=== PATIENT | female | born 1940 | race Caucasian/White ===

== ENCOUNTER → 2017-11-27 08:47 | Outpatient (CLI) | payer MEDICARE, BC, SELFPAY ==
--- NOTE | 2017-11-27 08:50 | HPBI_ITS ---
MAMMOGRAPHY - BILATERAL SCREENING REASON FOR EXAM: Female, 77 years old. Routine annual screening examination. PERTINENT HISTORY: Mother with breast cancer. TECHNIQUE: Digital bilateral breast sandra (3D mammographic acquisition) in the CC and MLO projections. 2-D mediolateral oblique (MLO) and craniocaudad (CC) views of both breasts were obtained. CAD: Full Field Digital Mammography with Computer Added Detection was performed. COMPARISON: Comparison is made with prior study dated November 18, 2016 and November 06, 2015. FINDINGS: Breast Composition: The breasts are heterogeneously dense, which may obscure small masses. There are no dominant masses or suspicious calcifications. No other significant abnormalities are identified. There has been no significant change since the prior study. HPBI/SCREENING MAMM (CAD), BILAT IMPRESSION: Stable bilateral screening mammogram. Yearly follow-up mammogram recommended. (A) ASSESSMENT CATEGORY: BIRADS Category 1: Negative. A letter regarding these results will be sent to the patient by the facility within 30 days. Approximately 10% of breast cancers are not detected by mammography. A normal mammogram should not delay biopsy of a clinically suspicious abnormality. [id number] Electronically Signed: Jorge Perez MD at 10:23 EST Tel [phone], Service support ,
== END ==
PROVIDERS: Family Provider Family Medicine; PCP Family Medicine; Visit Provider Family Medicine
DX: Z12.31 Encounter for screening mammogram for malignant neoplasm of breast (principal)
CPT/HCPCS: 77063; 77067

== ENCOUNTER → 2017-12-01 13:57 | Outpatient (CLI) | payer MEDICARE, BC, SELFPAY ==
[2017-12-01 15:41] LABS: Anion Gap 8 (5-15); BUN 15 mg/dL (7-18); BUN/Creat Ratio 18.7 RATIO (10-20); Calcium,Total 9.1 mg/dL (8.5-10.1); Chloride 104 mmol/L (98-107); EST Glomerular Filtration Rate 74 mL/min (>60); Est Glom Filt Rate - Afr Amer 89 mL/min (>60); Glucose 99 mg/dL (74-106); Potassium 3.4 mmol/L (3.5-5.1); Sodium Level 138 mmol/L (136-145)
== END ==
PROVIDERS: Family Provider Family Medicine; PCP Family Medicine
DX: C54.1 Malignant neoplasm of endometrium (principal); R91.8 Other nonspecific abnormal finding of lung field
CPT/HCPCS: 36415; 80048

== ENCOUNTER → 2017-12-04 17:31 | Outpatient (CLI) | payer MEDICARE, BC, SELFPAY ==
--- NOTE | 2017-12-04 17:37 | CT_ITS ---
STUDY: CT CHEST WITH CONTRAST REASON FOR EXAM: Female, 77 years old. Lung nodule, history of endometrial carcinoma. RADIATION DOSAGE (If Supplied By Facility): CTDIvol = ( 8.18 ) mGy, DLP = ( 249.49 ) mGycm TECHNIQUE: Transaxial imaging was performed following intravenous administration of 100 ml of Isovue 300 contrast material. Multiplanar coronal and sagittal images were reformatted. Individualized dose optimization techniques were used for this CT. COMPARISON: None. FINDINGS: Lung windows again show nonspecific pleural thickening in the apices. There is a described opacifications in the right middle lobe are unchanged, the opacifications in the superior aspect of the left lower lobe have resolved. There is no suspicious noncalcified mass or nodule, there is a calcified granuloma in the right lung base. Soft tissue windows show normal-appearing thyroid gland. There are scattered subcentimeter axillary and mediastinal lymph nodes. No pleural or pericardial effusions. Bony structures show degenerative change. Limited cuts the upper abdomen do not show a suspicious abnormality CT/Chest WITH Contrast IMPRESSION: Stable opacification and scarring in the right middle lobe without significant change since the previous study. I suspect these opacifications represent chronic inflammatory changes. No suspicious noncalcified mass or nodule, there is a small calcified granuloma in the right lung base. No pleural or pericardial effusions Degenerative bony changes Electronically Signed: Ben Michele MD at 11:16 EST , Service support ,
== END ==
PROVIDERS: Family Provider Family Medicine; PCP Family Medicine; Visit Provider Obstetrics & Gynecology Gynecologic Oncology
DX: C54.1 Malignant neoplasm of endometrium (principal); R91.8 Other nonspecific abnormal finding of lung field
CPT/HCPCS: 71260; Q9967

== ENCOUNTER → 2018-11-30 12:10 | Outpatient (CLI) | payer MEDICARE, BC, SELFPAY ==
--- NOTE | 2018-11-30 12:16 | BI_ITS ---
MAMMOGRAPHY - BILATERAL SCREENING REASON FOR EXAM: Female, 78 years old. Routine annual screening examination. PERTINENT HISTORY: Mother with breast cancer. History of uterine carcinoma. TECHNIQUE: Digital bilateral breast sandra (3D mammographic acquisition) in the CC and MLO projections. 2-D mediolateral oblique (MLO) and craniocaudad (CC) views of both breasts were obtained. CAD: Full Field Digital Mammography with Computer Added Detection was performed. COMPARISON: Comparison is made with prior study dated November 27, 2017 and November 18, 2016. FINDINGS: Breast Composition: The breasts are heterogeneously dense, which may obscure small masses. There are no dominant masses or suspicious calcifications. No other significant abnormalities are identified. There has been no significant change since the prior study. BI/SCREENING MAMM (CAD), BILAT IMPRESSION: Stable bilateral screening mammogram. Yearly follow-up mammogram recommended. (A) ASSESSMENT CATEGORY: BIRADS Category 1: Negative. A letter regarding these results will be sent to the patient by the facility within 30 days. Approximately 10% of breast cancers are not detected by mammography. A normal mammogram should not delay biopsy of a clinically suspicious abnormality. [id number] Electronically Signed: Jorge Perez MD at 13:18 EST , Service support ,
== END ==
PROVIDERS: Family Provider Family Medicine; PCP Family Medicine; Visit Provider Family Medicine
DX: Z12.31 Encounter for screening mammogram for malignant neoplasm of breast (principal)
CPT/HCPCS: 77063; 77067

== ENCOUNTER → 2019-03-11 | Outpatient (CLI) | payer MEDICARE, BC, SELFPAY ==
--- NOTE | 2019-03-11 14:11 | CT_ITS ---
HISTORY: UTERINE CANCER. LUNG NODULE F/U TECHNIQUE: Helically acquired images were obtained of the chest. A radiation dose optimization technique was used for this scan. IV Contrast dosage and agent: None. COMPARISON: Most recent comparison chest CT is December 04, 2017. Study before that is from August 26, 2017. Study before that is Feb 11 2017 FINDINGS: # of images incl. paperwork: [id number] LUNGS AND LARGE AIRWAYS: Sitting on the minor fissure, pleural-parenchymal lung disease within the region of interest remains. The appearance of the lung disease is similar to that of the previous studies. Bronchiectasis extending away from this region is minimal and is similar. There has not been an increase in size of the tissue or nodularity. The largest nodular area on the axial images, series 4 image 48, lung windows, measures 10 x 7 mm on the axial image, however, on the coronal image proves to be somewhat disc-like, and only measures 4 mm in craniocaudal dimensions. This is similar to the previous 2 studies. Within the right lower lobe, posterior laterally, just above the costophrenic sulcus, there is a 4 mm pleural parenchymal pulmonary nodule. This was also present previously and is similar in size to the most recent study. Pleural-parenchymal disease is also present at both lung apices. This is also similar in severity to the previous studies. Additional airspace disease is present anteriorly inferiorly within the right middle lobe. This is similar in appearance to the most recent study, however, more severe than the 2016 study. PLEURA: No pleural effusions. BONES: Kyphoscoliosis. Multilevel degenerative disc disease. No lytic or blastic metastatic lesions perceived. HEART AND PERICARDIUM: The heart is not enlarged. There is a central calcification, near the top of the mitral valve. This is been present previously. VESSELS: Thoracic aorta is not dilated. MEDIASTINUM AND RYAN: A prominent subcarinal lymph node persists. This is similar in size and appearance to the 2 most recent studies. SOFT TISSUES: The thyroid gland remains normal. Dense glandular breast tissue suggesting possible hormonal stimulation persists UPPER ABDOMEN: Unremarkable. CT/Chest without Contrast IMPRESSION: Pleural-parenchymal lung disease persists. The most severe disease is on the minor fissure and extends along the minor fissure from the peripheral parietal pleura and centrally to the hilum. Additional disease is present within the right middle lobe anteriorly. Additional pleural disease with a nodule is present within the right lower lobe. I do not perceive a significant difference in the disease since the most recent study of December 04, 2017. The disease within the right minor fissure is similar to the older study of February 11, 2017,. However, the disease anteriorly within the right middle lobe is more severe than 2017, but stable from November 2017. The right lower lobe pulmonary pleural-parenchymal nodule is the same. Stability of disease suggests that is chronic inflammatory disease Individualized dose optimization techniques were used for this CT. at 2236 Reported and signed by: Justice Rogers MD Electronically Signed: Justice Rogers MD at 22:35 EDT Tel , Service support ,
== END | disposition home or self-care (01) ==
LOC: CT 14:09
PROVIDERS: Family Provider Family Medicine; PCP Family Medicine; Referring Provider Internal Medicine Medical Oncology; Visit Provider Internal Medicine Medical Oncology
DX: R91.1 Solitary pulmonary nodule (principal); C55 Malignant neoplasm of uterus, part unspecified
CPT/HCPCS: 71250

== ENCOUNTER → 2020-02-28 14:16 | Outpatient (CLI) | payer MEDICARE, BC, SELFPAY ==
[2019-03-16 13:35] VITALS: BMI 21.6
--- NOTE | 2020-02-28 14:19 | BI_ITS ---
MAMMOGRAPHY - BILATERAL SCREENING REASON FOR EXAM: Female, 79 years old. Routine annual screening examination. PERTINENT HISTORY: Mother with breast cancer. History of uterine carcinoma. TECHNIQUE: Digital bilateral breast charlene (3D mammographic acquisition) in the CC and MLO projections. 2-D mediolateral oblique (MLO) and craniocaudad (CC) views of both breasts were obtained. CAD: Full Field Digital Mammography with Computer Added Detection was performed. COMPARISON: Comparison is made with prior examination dated November 30, 2018 and November 27, 2017. FINDINGS: Breast Composition: The breasts are heterogeneously dense, which may obscure small masses. There are no dominant masses or suspicious calcifications. No other significant abnormalities are identified. There has been no significant change since the prior study. BI/SCREEN MAMM (CAD) W/CHARLENE BILAT IMPRESSION: Stable bilateral screening mammogram. Yearly follow-up mammogram recommended. (A) ASSESSMENT CATEGORY: BIRADS Category 1: Negative. A letter regarding these results will be sent to the patient by the facility within 30 days. Approximately 10% of breast cancers are not detected by mammography. A normal mammogram should not delay biopsy of a clinically suspicious abnormality. [id number] Electronically Signed: Jorge Perez, at 9:22 EDT , Service support ,
--- NOTE | 2020-02-28 14:24 | BD_ITS ---
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 COMPARISON: Comparison is made with prior examination dated May 01, 2009. FINDINGS: Lumbar Spine (L1-L4): g/cm2 (1.021) / T-score (-1.3) / Z-score (0.5) Findings are suggestive of osteopenia with a low fracture risk. Left Femur Total: g/cm2 (0.703) / T-score (-2.4) / Z-score (-0.5) Left Femoral Neck: g/cm2 (0.731) / T-score (-2.2) / Z-score (-0.1) Right Femur Total: g/cm2 (0.740) / T-score (-2.1) / Z-score (-0.2) Right Femoral Neck: g/cm2 (0.707) / T-score (-2.4) / Z-score (-0.3) The T-Scores on the most recent prior examination were: Lumbar Spine (L1-L4): There has been worsening of bone density since the previous examination. Left Femur Total: which represents a worsening of 8.7%. Right Femur Total: which represents a worsening of 9.4%. BD/Dexa Bone Density Study IMPRESSION: The patient is considered osteopenic as outlined below according to World Bruce Organization (WHO) criteria with a high fracture risk. There has been worsening of bone density since the previous examination. Reference Information: The T-score is the number of standard deviations above or below the standard which is normal for young adults at their peak bone mineral density. The World Health Organization (WHO) interprets the T-scores as follows: Above -1 Normal bone density Between -1 and -2.5 Osteopenia Equal to / or below -2.5 Osteoporosis As a practical clinical guideline, osteopenia may be graded as follows: Mild -1 through -1.5 Moderate -1.6 through -2.0 Severe -2.1 through -2.4 The Z-score is the number of standard deviations above or below age-matched controls. A Z-score of less than -1.5 would be considered abnormal. References: 1. NIH Osteoporosis and Related Bone Diseases http://www.osteo.org 2. International Society for Clinical Densitometry http://www.iscd.org 3. National Osteoporosis Foundation http://www.nof.org Electronically Signed: Jorge Perez, at 9:10 EDT , Service support ,
== END ==
PROVIDERS: Family Provider Family Medicine; PCP Family Medicine; Referring Provider Family Medicine; Visit Provider Family Medicine
DX: Z12.31 Encounter for screening mammogram for malignant neoplasm of breast (principal); N95.9 Unspecified menopausal and perimenopausal disorder; Z80.3 Family history of malignant neoplasm of breast
CPT/HCPCS: 77063; 77067; 77080

== ENCOUNTER → 2020-03-19 | Outpatient (CLI) | payer MEDICARE, BC, SELFPAY ==
[2019-03-16 13:35] VITALS: BMI 21.6
--- NOTE | 2020-03-19 12:49 | CT_ITS ---
STUDY: CT ABDOMEN AND PELVIS WITH CONTRAST REASON FOR EXAM: Female, 79 years old. Endometrial cancer, lung nodules RADIATION DOSAGE (If Supplied By Facility): CTDIvol = ( 11.48 ) mGy, DLP = ( 643.06 ) mGycm TECHNIQUE: Transaxial images were obtained from the dome of the diaphragm to the symphysis pubis without oral contrast. IV 100mL Isovue-300 was administered. Sagittal and coronal images were reconstructed. Individualized dose optimization techniques were used for this CT. COMPARISON: Comparison is made with prior examination dated August 17, 2017. FINDINGS: Minimal increased markings in the anterior aspect of the right middle lobe suggestive of scarring. The visualized portions of the heart are within normal limits. 9 mm cyst is seen in the inferior aspect of the right lobe of the liver. This is unchanged. Normal gallbladder and extrahepatic biliary system. Normal spleen. Normal pancreas. Normal bilateral adrenal glands. 1 cm cyst is seen in the posterior midportion of the right kidney. There is a 2.2 cm x 2.1 cm exophytic cyst along the inferior aspect of the right kidney. 1 cm cyst in the inferior aspect of the left kidney as well as in the upper medial aspect of the left kidney. Normal visualized stomach. Normal small intestine. There are multiple colonic diverticula consistent with diverticulosis. There is non-visualization of the appendix. Normal abdominal aorta. Normal inferior vena cava. Normal retroperitoneum. Normal urinary bladder. There is absence of the uterus consistent with a prior hysterectomy. Normal abdominal wall. There are diffuse degenerative changes of the visualized lumbar spine. Mild dextroscoliosis. CT/Abdomen/Pelvis W IV Cont ONLY IMPRESSION: Stable examination. Electronically Signed: Jorge Perez, at 15:16 EDT , Service support ,
--- NOTE | 2020-03-19 12:49 | CT_ITS ---
STUDY: CT CHEST WITH CONTRAST REASON FOR EXAM: Female, 79 years old. HX UTERINE CA, FOLLOW UP RADIATION DOSAGE (If Supplied By Facility): CTDIvol = ( 11.48 ) mGy, DLP = ( 643.06 ) mGycm TECHNIQUE: Transaxial imaging was performed following intravenous administration of IV 100mL Isovue-300. Multiplanar coronal and sagittal images were reformatted. Individualized dose optimization techniques were used for this CT. COMPARISON: Comparison is made with prior study dated March 11, 2019. FINDINGS: 8.3 mm hypodense nodule in the lower pole of the left lobe of the thyroid. Stable scarring in the lung apices bilaterally. The previously seen nodular density in the right midlung laterally has decreased in size. Focal area of scarring is seen at that site. Stable focal area of scarring in the anterior aspect of the right middle lobe abutting the pleural surface. There is no demonstrated pleural abnormality. Normal heart and pericardium. There are multiple small lymph nodes within the mediastinum, which are normal in size and morphology most compatible with reactive lymph hyperplasia. Normal hilar regions. Normal enhanced pulmonary arteries. Normal aorta arch and descending thoracic aorta. There are multi-level degenerative changes of the thoracic spine. Small hiatal hernia. CT/Chest WITH Contrast IMPRESSION: Stable scarring at the lung apices. The previously seen nodular density in the right midlung adjacent to the right minor fissure as decrease in size. Focal area of scarring is seen at that site. Stable focal area of scarring in the anterior aspect of the right middle lobe abutting the pleural surface. Electronically Signed: Jorge Perez, at 15:13 EDT , Service support ,
[2020-03-19 13:33] LABS: Absolute Neutrophil Count 2.8 X10^3/uL (2.0-7.7); Basophil# 0.03 X10^3/uL; Basophil% 0.7 % (0-1); Eosinophil# 0.15 X10^3/uL; Eosinophils% 3.3 % (0-5); Hematocrit 36.1 % (37-47); Hemoglobin 11.5 g/dL (12.0-15.0); Lymphocyte % 22.3 % (19-41); Mean Corp Hgb Conc 31.9 g/dL (32-36); Mean Corpuscular Hgb 30.7 pg (27.0-32.0); Mean Corpuscular Volume 96.5 fL (81-99); Mean Platelet Vol. 11.2 fl (6.2-12.0); Monocyte# 0.45 X10^3/uL; NRBC Flagged by Analyzer 0 % (0-5); Neutrophil # 2.84 X10^3/uL (2.7-7.7); Neutrophil % 63.5 % (47-70); Platelet Count 204 K/mm3 (150-450); RBC Distribution Width CV 12.3 % (11.6-14.6); RBC Distribution Width SD 42.8 fl (35.1-43.9); Red Blood Count 3.74 M/mm3 (4.2-5.4); White Blood Count 4.5 K/mm3 (4.4-11.0)
[2020-03-19 13:40] LABS: ALB/GLOB Ratio 1.1 RATIO (0.9-2.4); AST(SGOT) 23 U/L (15-37); Alanine Aminotransfer ALT/SGPT 29 U/L (13-56); Alkaline Phosphatase 62 U/L (45-117); Anion Gap 9 (5-15); BUN 17 mg/dL (7-18); Calcium,Total 9.4 mg/dL (8.5-10.1); Chloride 108 mmol/L (98-107); Creatinine, Serum 0.71 mg/dL (0.55-1.02); EST Glomerular Filtration Rate 85 mL/min (>60); Est Glom Filt Rate - Afr Amer 103 mL/min (>60); Globulin 3.6 g/dL (2.2-4.2); Glucose 94 mg/dL (74-106); Potassium 3.6 mmol/L (3.5-5.1); Protein, Total 7.6 g/dL (6.4-8.2); Sodium Level 141 mmol/L (136-145)
[2020-03-19 21:02] LABS: Xtra Tube EP Lab EXTRA TUBE
[2020-03-20 06:07] LABS: Cancer Antigen 125 11.1 U/mL (0.0-38.1)
== END | disposition home or self-care (01) ==
LOC: CT 12:49
PROVIDERS: PCP Family Medicine; Referring Provider Internal Medicine Medical Oncology; Visit Provider Internal Medicine Medical Oncology
DX: C55 Malignant neoplasm of uterus, part unspecified (principal); C54.1 Malignant neoplasm of endometrium; R91.8 Other nonspecific abnormal finding of lung field
CPT/HCPCS: 36415; 71260; 74177; 80053; 85025; 86304; Q9967

== ENCOUNTER 2021-01-24 09:11 | Outpatient (RCR) | payer MEDICARE, BC, SELFPAY ==
[2020-03-22 14:59] VITALS: BMI 21.8
== END 2021-03-19 23:59 ==
LOC: IMMUN 09:11
PROVIDERS: PCP Family Medicine; Referring Provider Family Medicine; Visit Provider Family Medicine
DX: Z23 Encounter for immunization (principal)
CPT/HCPCS: 0001A; 0002A; 91300

== ENCOUNTER → 2021-04-05 13:49 | Outpatient (CLI) | payer MEDICARE, BC, SELFPAY ==
[2021-03-21 13:54] VITALS: BMI 22.0
--- NOTE | 2021-04-05 13:51 | BI_ITS ---
MAMMOGRAPHY - BILATERAL SCREENING 3-D TOMOSYNTHESIS REASON FOR EXAM: Female, 80 years old. SCREENING PERTINENT HISTORY: No significant family history. TECHNIQUE: 2-D mammograms and 3-D Tomosynthesis of the breast (s) were performed. CAD was performed. COMPARISON: 02/28/2020 FINDINGS: The breast composition is of heterogeneous fibroglandular tissue Scattered benign calcifications are seen. No dense spiculated masses or suspicious microcalcifications are identified. No architectural distortion is identified. There is no skin thickening or nipple retraction. Tiny benign looking lymph nodes noted in the axillary areas There has been no significant change since the prior study of 02/28/2020. BI/SCRN MAMM (CAD)W/CHARLENE BILAT IMPRESSION: No mammographic signs of malignancy. Routine yearly mammograms recommended. ASSESSMENT CATEGORY: BIRADS Category 1: Negative. A letter regarding these results will be sent to the patient by the facility within 30 days. FOLLOW UP RECOMMENDATION: Yearly follow up mammogram recommended. (A) Approximately 10% of breast cancers are not detected by mammography. A normal mammogram should not delay biopsy of a clinically suspicious abnormality. Electronically Signed: French Wylie, at 14:55 EDT Tel , Service support ,
== END ==
PROVIDERS: PCP Family Medicine; Referring Provider Family Medicine; Visit Provider Family Medicine
DX: Z12.31 Encounter for screening mammogram for malignant neoplasm of breast (principal)
CPT/HCPCS: 77063; 77067

== ENCOUNTER → 2021-04-08 15:54 | Outpatient (CLI) | payer MEDICARE, BC, SELFPAY ==
[2021-03-21 13:54] VITALS: BMI 22.0
[2021-04-08 18:30] LABS: Anion Gap 8 (5-15); BUN 8 mg/dL (7-18); BUN/Creat Ratio 10.6 RATIO (10-20); Calcium,Total 9.1 mg/dL (8.5-10.1); Chloride 107 mmol/L (98-107); Creatinine, Serum 0.76 mg/dL (0.55-1.02); EST Glomerular Filtration Rate 78 mL/min (>60); Est Glom Filt Rate - Afr Amer 95 mL/min (>60); Glucose 105 mg/dL (74-106); Potassium 3.3 mmol/L (3.5-5.1); Sodium Level 141 mmol/L (136-145)
== END ==
PROVIDERS: Nurse Practitioner Family; PCP Family Medicine; Visit Provider Family Medicine
DX: E87.6 Hypokalemia (principal)
CPT/HCPCS: 36415; 80048

== ENCOUNTER → 2021-04-19 07:57 | Outpatient (CLI) | payer MEDICARE, BC, SELFPAY ==
[2021-03-21 13:54] VITALS: BMI 22.0
--- NOTE | 2021-04-19 08:05 | US_ITS ---
STUDY: ABDOMINAL ULTRASOUND - RIGHT UPPER QUADRANT REASON FOR VISIT: Female, 81 years old ABD PAIN RUQ x 3 weeks TECHNIQUE: Ultrasound evaluation of the right upper quadrant was performed with real-time and static abraham-scale imaging. TECHNICAL QUALITY: Adequate. COMPARISON: Comparison is made with prior CT scan of the abdomen dated 03/19/2020. FINDINGS: Liver: The liver measures 12.7 cm. There is normal echogenicity of the liver. The bile ducts are within normal limits. There is hepatic color flow. The direction of portal flow is hepatopetal. There is no demonstrated mass lesion. Gallbladder: Normal distended gallbladder. The gallbladder wall measures 2.2 mm. There is a negative sonographic Pang''s sign. There is no pericholecystic fluid. There are no gallstones. Common Bile Duct (C.B.D.): The common bile duct measures 2.4 mm. Pancreas: Normal size of the head, body and tail of the pancreas. There is increased echogenicity of the pancreas. There is no demonstrated pancreatic mass or cyst. Right Kidney: Normal size of the right kidney. The right kidney measures 9.6 cm x 5.2 cm x 3 cm. Normal renal cortex. The right cortex measures 1.1 cm. There is an 8 mm x 8 mm x 7 mm renal cyst. There is no right hydronephrosis. US/Abdomen Limited IMPRESSION: Normal right upper quadrant ultrasound examination. Small right renal cyst. Electronically Signed: Jorge Perez MD at 10:16 EDT , Service support ,
== END ==
PROVIDERS: PCP Family Medicine; Referring Provider Family Medicine; Visit Provider Family Medicine
DX: R10.11 Right upper quadrant pain (principal)
CPT/HCPCS: 76705

== ENCOUNTER → 2021-04-22 09:49 | Outpatient (CLI) | payer MEDICARE, BC, SELFPAY ==
[2021-03-21 13:54] VITALS: BMI 22.0
[2021-04-22 12:51] LABS: Absolute Lymphocyte Count 0.73 X10^3/uL (0.83-4.51); Basophil# 0.03 X10^3/uL; Basophil% 0.7 % (0-1); Eosinophil# 0.04 X10^3/uL; Hematocrit 38.4 % (37-47); Hemoglobin 12.4 g/dL (12.0-15.0); Lymphocyte # 0.73 X10^3/ul (0.83-4.51); Lymphocyte % 17.5 % (19-41); Mean Corp Hgb Conc 32.3 g/dL (32-36); Mean Corpuscular Hgb 30.1 pg (27.0-32.0); Mean Corpuscular Volume 93.2 fL (81-99); Mean Platelet Vol. 12.6 fl (6.2-12.0); Monocyte# 0.37 X10^3/uL; Monocyte% 8.9 % (0-10); NRBC Flagged by Analyzer 0 % (0-5); Neutrophil % 71.7 % (47-70); Platelet Count 212 K/mm3 (150-450); RBC Distribution Width CV 11.8 % (11.6-14.6); RBC Distribution Width SD 40.3 fl (35.1-43.9); Red Blood Count 4.12 M/mm3 (4.2-5.4); White Blood Count 4.2 K/mm3 (4.4-11.0)
[2021-04-22 13:13] LABS: Amylase 119 U/L (25-115); Lipase 195 U/L (73-393)
== END ==
PROVIDERS: PCP Family Medicine; Referring Provider Family Medicine; Visit Provider Family Medicine
DX: R10.11 Right upper quadrant pain (principal)
CPT/HCPCS: 36415; 82150; 83690; 85025

== ENCOUNTER → 2021-05-14 09:37 | Outpatient (CLI) | payer MEDICARE, BC, SELFPAY ==
[2021-05-02 12:56] VITALS: BMI 20.9
--- NOTE | 2021-05-14 09:40 | NM_ITS ---
EXAM: NM HEPATOBILIARY SCAN : 1940 CLINICAL INDICATION: ABD PAIN RUQ TECHNIQUE: Technetium 99m choletec was intravenously administered and static images were obtained. This report was created using [employer] report [employer] technology. COMPARISON: None. FINDINGS: LIVER: There is prompt uptake of radiopharmaceutical seen within the liver. There is no abnormal hyperemia along the gallbladder fossa. BILE DUCTS: There is biliary to bowel activity seen by 45 minutes. GALLBLADDER: There is activity in the gallbladder seen by 30 minutes. Gallbladder ejection fraction measured at 20 minutes after CCK administration was 48%. STOMACH AND BOWEL: See above. NM/Hepatobilliary Img w/Pharm Int IMPRESSION: Unremarkable hepatobiliary scan. There is no evidence of cholecystitis or common duct obstruction. There is normal gallbladder ejection fraction of 48% 20 minutes after CCK administration at 1731 Reported and signed by: Delfin Brito MD Electronically Signed: Delfin Brito MD at 17:30 EDT Tel , Service support ,
== END ==
PROVIDERS: PCP Family Medicine; Referring Provider Family Medicine; Visit Provider Family Medicine
DX: R10.11 Right upper quadrant pain (principal)
CPT/HCPCS: 78227; A9537; J2805

== ENCOUNTER 2021-05-16 06:23 | Day surgery (SDC) | payer MEDICARE, BC, SELFPAY ==
[2021-05-02 12:56] VITALS: BMI 20.9
[2021-05-16] VITALS (7 sets, daily range): BP systolic 123–155; BP diastolic 68–85; PULSE 58–81; RESP 16; TEMP 36.1–36.6; O2SAT 100; BMI 20.2
--- NOTE | 2021-05-16 | GASB_PTH ---
PATIENT: LAI CLANCY LOC: EN U#:[id number] AGE/SX: 81/F ROOM: RE05/16/[address]: Dr. Phil Quezada MD : 1940 BED: DIS: 05/16/2021 SPEC #: [id number] RECD: 05/16/21 09:39 STATUS: RONIT PETTY #: [id number] ZACH: 05/16/21 00:[address]: Phil Quezada DEPT: SURGICAL PATHOLOGY RECD BY: Nikolay Marie ENTERED: 05/16/21 09:58 SP TYPE: Gastric Bx OTHR DR: Dr. Paola Corona MD Tissues: Gastric mucous membrane Procedures: Surgery Specimen Level IV HEADER OPERATION: Colonoscopy, [place] [place] PRE-OP DIAGNOSIS: Nausea, RUQ abdominal pain, family history colon cancer, diverticulosis, follow-up TISSUE SUBMITTED: Antrum biopsy for H. pylori and path MICROSCOPIC DIAGNOSIS Gastric antrum, biopsy: Mild chronic gastritis. AM:ciara 05/17/2021 COMMENT The results of immunohistochemistry for Helicobacter pylori will be reported separately ([id number]). MICROSCOPIC DESCRIPTION Slides are reviewed. GROSS DESCRIPTION Received in fixative is one container labeled with the patient's name and designated antrum biopsy. The specimen consists of two irregular fragments of light reed soft tissue that in aggregate measure 0.8 x 0.4 x 0.1 cm. The specimen is totally submitted in one cassette. / SJ:ciara 05/16/21 TC:3 CPT: 97743
[2021-05-16] MEDS: Lactated Ringers 1,000 ML 100 ML IV (07:07)
--- NOTE | 2021-05-16 07:28 | PCM.HP.BLA ---
History and Physical Patient reassessed prior to her procedure this morning. There have been no interval developments to her HPI. She continues to have frequent a.m. nausea. Overall, Zofran prescribed at her clinic visit seems to be managing her symptoms. She denies any right upper quadrant pain. We also did discuss that her HIDA scan returned completely normal so gallbladder is an unlikely source of her complaints. Lastly, she confirms that she successfully completed her bowel prep and the outputs have been clear the last several times she is use the restroom. We will plan to proceed with upper and lower endoscopy under local MAC as previously determined.
--- NOTE | 2021-05-16 07:30 | IMM_PTH ---
PATIENT: LAI CLANCY LOC: [facility] U#:[id number] AGE/SX: 81/F ROOM: RE05/16/[address]: Dr. Phil Quezada MD : 1940 BED: DIS: 05/16/2021 SPEC #: [id number] RECD: 05/16/21 12:08 STATUS: RONIT JOVANNY #: [id number] ZACH: 05/16/21 07:[address]: Phil Quezada DEPT: IMMUNOHISTOCHEMISTRY RECD BY: Stephanie Vasquez ENTERED: 05/16/21 12:09 SP TYPE: IMMUNO OTHR DR: Dr. Paola Corona MD Tissues: Stomach, NOS Procedures: H Pylori (initial) PHYSICIAN & INSTITUTION [place] [address] SPECIMEN INFORMATION: Tissue Source: Antrum biopsy Clinical Info: Nausea, RUQ abdominal pain, diverticulosis, family history colon cancer Specimen Number: [id number] CPT code: 19875 METHODOLOGY: Deparaffinized sections of prefer/formalin-fixed tissue or PAP/DQ stained slides are incubated with monoclonal/polyclonal antibodies/oligonucleotide probes. Localization is made via biotin free immunoperoxidase method. Appropriate controls are performed and reacted as expected. Results on target cell population are indicated in the following table: RESULTS: ANTIBODY / CLONE RESULT H Pylori (polyclonal) negative These tests were developed and their performance characteristics determined by [facility]. They may not have been cleared or approved by the U.S. Food and Drug Administration. The FDA has determined that such clearance or approval is not necessary. INTERPRETATION: Antrum biopsy: Negative for Helicobacter pylori organisms. AM:ciara 05/17/2021
--- NOTE | 2021-05-16 09:12 | OP.EGD_ITS ---
Patient Name: Luz Kapadia Procedure Date: 05/16/2021 7:13 AM Date of : 1940 Age: 81 Procedure: Upper GI endoscopy Indications: Dyspepsia, Suspected Helicobacter pylori Providers: Phil Queazda MD Referring MD: Paola Corona Medicines: Monitored Anesthesia Care Patient Profile: Refer to note in patient chart for documentation of history and physical. Patient has symptoms of acute nausea. She is status post EGD (normal) in the distant past. Complications: No immediate complications. Procedure: Pre-Anesthesia Assessment: - Prior to the procedure, a History and Physical was performed, and patient medications, allergies and sensitivities were reviewed. The patient's tolerance of previous anesthesia was reviewed. - The risks and benefits of the procedure and the sedation options and risks were discussed with the patient. All questions were answered and informed consent was obtained. - The anesthesia plan was to use moderate sedation/analgesia (conscious sedation). - After reviewing the risks and benefits, the patient was deemed in satisfactory condition to undergo the procedure in an ambulatory setting. - The anesthesia plan was to use moderate sedation/analgesia (conscious sedation). - Immediately prior to administration of medications, the patient was re-assessed for adequacy to receive sedatives. - The heart rate, respiratory rate, oxygen saturations, blood pressure, adequacy of pulmonary ventilation, and response to care were monitored throughout the procedure. - The physical status of the patient was re-assessed after the procedure. After obtaining informed consent, the endoscope was passed under direct vision. Throughout the procedure, the patient's blood pressure, pulse, and oxygen saturations were monitored continuously. The gastroscope was introduced through the mouth, and advanced to the second part of duodenum. The upper GI endoscopy was accomplished without difficulty. The patient tolerated the procedure well. Scope In: 7:40:36 AM Scope Out: 7:53:56 AM Total Procedure Duration Time 0 hours 13 minutes 20 seconds Findings: The examined duodenum was normal. The stomach was normal. Two biopsies were obtained in the gastric antrum and at the gastroesophageal junction (on retroflexion) with cold forceps for histology. Estimated blood loss was minimal. The esophagus was normal. The Z-line was regular and was found 35 cm from the incisors. Impression: - Normal examined duodenum. - Normal stomach. - Normal esophagus. - Z-line regular, 35 cm from the incisors. - Two biopsies were obtained in the gastric antrum and at the gastroesophageal junction. - Normal esophagus, stomach, and examined duodenum. Biopsied. Recommendation: - Patient has a contact number available for emergencies. The signs and symptoms of potential delayed complications were discussed with the patient. Return to normal activities tomorrow. Written discharge instructions were provided to the patient. - Resume regular diet today. - Continue present medications. - Await pathology results. - Await pathology results. Procedure Code(s): --- Professional --- 41401, Esophagogastroduodenoscopy, flexible, transoral; with biopsy, single or multiple Diagnosis Code(s): --- Professional --- R11.0, Nausea CPT copyright 2017 [employer]. All rights reserved. The codes documented in this report are preliminary and upon service cleaner review may be revised to meet current compliance requirements. Phil Quezada MD 05/16/2021 9:12:03 AM This report has been signed electronically. Number of Addenda: 0 Note Initiated On: 05/16/2021 7:13 AM
--- NOTE | 2021-05-16 09:12 | OP.CCLET_ITS ---
05/16/2021 Paola Corona [address] [place] [address] Re : Upper GI endoscopy procedure for Luz Kapadia Dear Dr. Corona This procedure was performed on May. My impressions and recommendations are as follows: Impressions : - Normal examined duodenum. - Normal stomach. - Normal esophagus. - Z-line regular, 35 cm from the incisors. - Two biopsies were obtained in the gastric antrum and at the gastroesophageal junction. - Normal esophagus, stomach, and examined duodenum. Biopsied. Recommendations : - Patient has a contact number available for emergencies. The signs and symptoms of potential delayed complications were discussed with the patient. Return to normal activities tomorrow. Written discharge instructions were provided to the patient. - Resume regular diet today. - Continue present medications. - Await pathology results. - Await pathology results. My findings are described in the full procedure note, which is enclosed. If I can be of further assistance, please feel free to contact me at Doctor phone number(s): , Work: . Sincerely, Phil Quezada MD 05/16/2021 9:12:03 AM This report has been signed electronically.
--- NOTE | 2021-05-16 09:36 | OP.COLON_ITS ---
Patient Name: Luz Kapadia Procedure Date: 05/16/2021 7:54 AM Date of : 1940 Age: 81 Procedure: Colonoscopy Indications: Screening patient at increased risk: Family history of 1st-degree relative with colorectal cancer at age 60 years (or older) Providers: Phil Quezada MD Referring MD: Paola Corona Medicines: See the Anesthesia note for documentation of the administered medications Patient Profile: Refer to note in patient chart for documentation of history and physical. Patient has symptoms of acute nausea. She is status post EGD (normal) in the distant past. Patient has symptoms. Last Colonoscopy: 5 years ago. family history colon ca family history colon ca Complications: No immediate complications. Estimated blood loss: None. Procedure: Pre-Anesthesia Assessment: - Prior to the procedure, a History and Physical was performed, and patient medications, allergies and sensitivities were reviewed. The patient's tolerance of previous anesthesia was reviewed. - The risks and benefits of the procedure and the sedation options and risks were discussed with the patient. All questions were answered and informed consent was obtained. - The anesthesia plan was to use moderate sedation/analgesia (conscious sedation). - After reviewing the risks and benefits, the patient was deemed in satisfactory condition to undergo the procedure in an ambulatory setting. - Immediately prior to administration of medications, the patient was re-assessed for adequacy to receive sedatives. - The physical status of the patient was re-assessed after the procedure. - Prior to the procedure, a History and Physical was performed, and patient medications, allergies and sensitivities were reviewed. The patient's tolerance of previous anesthesia was reviewed. - Immediately prior to administration of medications, the patient was re-assessed for adequacy to receive sedatives. - The heart rate, respiratory rate, oxygen saturations, blood pressure, adequacy of pulmonary ventilation, and response to care were monitored throughout the procedure. - The physical status of the patient was re-assessed after the procedure. After I obtained informed consent, the scope was passed under direct vision. Throughout the procedure, the patient's blood pressure, pulse, and oxygen saturations were monitored continuously. The colonoscope was introduced through the anus and advanced to the cecum, identified by its appearance. The colonoscopy was performed without difficulty. The colonoscopy was technically difficult and complex due to multiple diverticula in the colon, a redundant colon, significant looping and a tortuous colon. Successful completion of the procedure was aided by using manual pressure. The patient tolerated the procedure fairly well. The entire colon was visualized. Scope withdrawal time was 13 minutes. The quality of the bowel preparation was excellent. Cecum were photographed. The rectum and cecum were photographed. Scope In: 7:58:08 AM Scope Withdrawal Time 0 hours 14 minutes 41 seconds Scope Out: 8:51:16 AM Total Procedure Duration Time 0 hours 53 minutes 8 seconds Findings: Multiple medium-mouthed diverticula were found in the sigmoid colon. No biopsies or other specimens were collected for this exam. The sigmoid colon and splenic flexure were tortuous. The retroflexed view of the distal rectum and anal verge was normal and showed no anal or rectal abnormalities. Impression: - Diverticulosis in the sigmoid colon. No specimens collected. - Tortuous colon. - The distal rectum and anal verge are normal on retroflexion view. - Moderate diverticulosis in the sigmoid colon. There was no evidence of diverticular bleeding. - Normal digital-rectal examination. Recommendation: - Discharge patient to home (ambulatory). - Patient has a contact number available for emergencies. The signs and symptoms of potential delayed complications were discussed with the patient. Return to normal activities tomorrow. Written discharge instructions were provided to the patient. - Resume regular diet today. - Await pathology results. - No repeat colonoscopy. - Continue present medications. Procedure Code(s): --- Professional --- G0105, Colorectal cancer screening; colonoscopy on individual at high risk Diagnosis Code(s): --- Professional --- Z80.0, Family history of malignant neoplasm of digestive organs K57.30, Diverticulosis of large intestine without perforation or abscess without bleeding Q43.8, Other specified congenital malformations of intestine CPT copyright 2017 [employer]. All rights reserved. The codes documented in this report are preliminary and upon turbine engine assembler review may be revised to meet current compliance requirements. Phil Quezada MD 05/16/2021 9:36:03 AM This report has been signed electronically. Number of Addenda: 0 Note Initiated On: 05/16/2021 7:54 AM
--- NOTE | 2021-05-16 09:37 | OP.CCLET_ITS ---
05/16/2021 Paola Corona [address] [place] [address] Re : Colonoscopy procedure for Luz Kapadia Dear Dr. Corona This procedure was performed on May. My impressions and recommendations are as follows: Impressions : - Diverticulosis in the sigmoid colon. No specimens collected. - Tortuous colon. - The distal rectum and anal verge are normal on retroflexion view. - Moderate diverticulosis in the sigmoid colon. There was no evidence of diverticular bleeding. - Normal digital-rectal examination. Recommendations : - Discharge patient to home (ambulatory). - Patient has a contact number available for emergencies. The signs and symptoms of potential delayed complications were discussed with the patient. Return to normal activities tomorrow. Written discharge instructions were provided to the patient. - Resume regular diet today. - Await pathology results. - No repeat colonoscopy. - Continue present medications. My findings are described in the full procedure note, which is enclosed. If I can be of further assistance, please feel free to contact me at Doctor phone number(s): , Work: . Sincerely, Phil Quezada MD 05/16/2021 9:36:03 AM This report has been signed electronically.
== END 2021-05-16 10:20 | disposition home or self-care (01) ==
LOC: EN 06:23 → AC 06:24
PROVIDERS: PCP Family Medicine; Referring Provider Family Medicine; Visit Provider Surgery
PROC: 0DJD8ZZ Inspection of Lower Intestinal Tract, Via Natural or Artificial Opening Endoscopic (ICD-10-PCS; CPT 45378; principal; 2021-05-16 07:25)
DX: Z12.11 Encounter for screening for malignant neoplasm of colon (principal); K29.50 Unspecified chronic gastritis without bleeding; K57.30 Diverticulosis of large intestine without perforation or abscess without bleeding; R10.13 Epigastric pain; R11.0 Nausea; Z85.42 Personal history of malignant neoplasm of other parts of uterus; Z80.0 Family history of malignant neoplasm of digestive organs
CPT/HCPCS: 43239; G0105; 88305; 88342; J7120; J2405

== ENCOUNTER → 2021-08-21 | Outpatient (CLI) | payer MEDICARE, BC, SELFPAY ==
[2021-08-28 17:10] LABS: HPV APTIMA, High Risk Negative (Negative)
[2021-08-28 17:16] LABS: HPV Reflexed? NOT INDICATED
== END | disposition home or self-care (01) ==
PROVIDERS: PCP Family Medicine; Visit Provider Family Medicine
DX: Z12.72 Encounter for screening for malignant neoplasm of vagina (principal); C55 Malignant neoplasm of uterus, part unspecified
CPT/HCPCS: 88175; G0145

== ENCOUNTER 2022-02-16 12:44 | Emergency (ER) | payer MEDICARE, BC, SELFPAY ==
[2022-02-16 12:46] VITALS: BP 195/87; PULSE 84; RESP 18; TEMP 36; O2SAT 99; BMI 22.3
--- NOTE | 2022-02-16 12:59 | ED.VIS.FALL ---
HPI HPI - Fall History of Present Illness Chief Complaint: Fall Informant: patient Occured/Mechanism Occurred: Today Fall down steps #: 1 Usually ambulates: Without assistance Pain/Injury Location: Right lower ribs Pain Location: back Quality of Pain: Sharp Worsened by: Certain positions Relieved by: Certain positions Associated Symptoms Associated Symptoms: Negative for Parasthesias, Weakness, Loss of function, Inability to ambulate, Loss of consciousness and Amnesia Narrative Narrative: Patient presents with right rib pain that began after a fall today. Patient states she was carrying a jug of ice tea down some steps into her garage when she fell. Patient denies any head injury or loss of consciousness. Patient denies any syncopal episode. Patient fell against a partial brick wall. Patient states her pain is worse with certain positions but better in other positions. Patient describes her pain as sharp. Patient denies any shortness of breath. PFSH PFS Medical History Cancer Gastric reflux History of diverticulitis History of stress test Leg cramps Nausea Non-smoker Pulmonary nodule RUQ abdominal pain Wears dentures Wears glasses Home Medications Calcium Carbonate/Vitamin D 1 tab PO DAILY 08/01/13 [History Last Taken 08/25/17] Multivitamins,Therapeutic 1 tab PO DAILY 08/01/13 [History Last Taken 08/25/17] psyllium husk (aspartame) [Metamucil] 1 packet PO DAILY 08/02/13 [History Last Taken 08/25/17] omeprazole 20 mg PO DAILY 02/16/22 [History Last Taken Unknown] Allergy/AdvReac Type Severity Reaction Status Date / Time doxycycline AdvReac Severe Nausea Verified 02/16/22 12:46 erythromycin base AdvReac Severe Nausea Verified 02/16/22 12:46 [Erythromycin Base] Penicillins AdvReac Intermediate Hives Verified 02/16/22 12:46 Family History Mother Colon cancer Breast cancer Daughter Thyroid disorder Surgical History History of hysterectomy History of tubal ligation Social History Smoking Status: Never smoker alcohol intake: never ROS ROS ED Constitutional Constitutional ED: Denies chills or fever(s) Eyes Eyes: Denies blurry vision or change in vision ENT ENT ED: Denies rhinorrhea or sore throat Cardiovascular Cardiovascular: Denies chest pain or palpitations Respiratory/Chest Respiratory/Chest: Denies cough or dyspnea Gastrointestinal Gastrointestinal: Denies nausea or vomiting Genitourinary Genitourinary ED: Denies dysuria or hematuria Musculoskeletal Musculoskeletal: Reports back pain; Denies neck pain Integumentary Denies abscess or rash Neurologic Neurologic: Denies headache(s) or weakness Allergic/Immunologic Allergic/Immunologic ED: Denies mouth swelling or urticaria EXAM Physical Exam Const Vital Signs: 02/16/22 12:46 02/16/22 13:05 Temperature 96.8 F L Temperature Source Temporal Pulse Rate 84 Respiratory Rate 18 Blood Pressure 195/87 H Blood Pressure Mean 123 Pulse Ox 99 Oxygen Delivery Method Room Air Room Air Positive well nourished and well developed General Appearance ED: well developed and NAD HEENT Reports normocephalic atraumatic Neck full ROM and supple Chest Wall palpation of chest normal Resp normal respiratory effort and clear to auscultation bilaterally Cardio regular rate and regular rhythm GI non-tender and non-distended Auscultation: normoactive bowel sounds Palpation: soft Back/Spine Back/Spine Narrative: There is tenderness with mild edema over the right lower ribs posteriorly. There is no bony crepitance or step-off. There is no ecchymosis. There is no subcutaneous emphysema. Neuro oriented x3, CN's II-XII intact bilaterally, moves all extremities, no focal motor deficits and no sensory deficits noted Sensorium / Orientation: alert Motor Exam: strength 5/5 throughout Psych mental status grossly normal and thought process normal MDM MDM MDM Narrative Medical decision making narrative: Patient was given a tetanus booster. X-rays of the right ribs were obtained. There are 5 views. On my interpretation, there is no acute fracture. There is no pneumothorax. There is no acute cardiopulmonary process. Radiologist also interpreted the x-rays and agrees. Patient was advised of her findings. Patient was instructed to use ice to the area. Patient was instructed to take Tylenol or ibuprofen as needed for pain. Patient was instructed to take 10-15 deep breaths every hour while awake to prevent atelectasis and pneumonia. Patient was instructed to follow-up with her primary care physician in 7 to 10 days for reevaluation. Patient was instructed return if worse in any way. Patient and family understood and were agreeable with the plan. All questions were answered. Radiography Diagnostic Testing: Clinical Impression(s) from Imaging Studies Ribs w/Chest X-Ray 02/16/22 13:18 IMPRESSION: RIBS: Osteopenia with no displaced rib fracture. CHEST: Cardiomegaly with hyperexpansion. Electronically Signed: Harry Maynard MD at 13:47 EDT , Discharge Plan Triage Chief Complaint: Fall Other Complaint: Chest Other ED Provider: Abelardo Richards Dx/Rx/DC Orders Clinical Impression: Contusion of rib on right side, Fall, Abrasion of right hand Instructions: ED Contusion, Rib Prescriptions: No Action Multivitamins,Therapeutic tablet 1 tab PO DAILY RF: 0 Calcium Carbonate/Vitamin D tablet 1 tab PO DAILY RF: 0 Metamucil Fiber Singles 1 PACKET packet 1 packet PO DAILY RF: 0 omeprazole 20 mg capsule,delayed release(DR/EC) 20 mg PO DAILY RF: 0 Primary Care Provider: Paola Corona Referrals: Paola Corona MD [Primary Care Provider] - 1-2 Weeks Disposition Disposition: Home, Self Care
--- NOTE | 2022-02-16 13:18 | RAD_ITS ---
STUDY: X-RAY - UNILATERAL RIBS ( RIGHT ) WITH CHEST REASON FOR EXAM: Female, 81 years old. Trauma. Pain. TECHNIQUE - RIBS: 4 view(s) of the ribs. TECHNIQUE - CHEST: Single frontal view of the chest. COMPARISON: Chest CT with contrast dated 03/19/2020. FINDINGS - RIBS: Generalized osteopenia. No displaced rib fracture. FINDINGS - CHEST: Hyperexpansion. There is no demonstrated pleural abnormality. Cardiomegaly. Normal mediastinum and yair. Normal visualized pulmonary arteries. Aortic tortuosity. Normal visualized thoracic spine. Normal visualized ribs, clavicles, and shoulders. There is no demonstrated abnormality of the visualized soft tissue structures of the upper abdomen. RAD/Ribs Uni Min 3V w/PA Chest IMPRESSION: RIBS: Osteopenia with no displaced rib fracture. CHEST: Cardiomegaly with hyperexpansion. Electronically Signed: Harry Maynard MD at 13:47 EDT ,
[2022-02-16] MEDS: Diphth,Pertuss(Acell),Tet Vac 0.5 ML Vial IM (13:36)
[2022-02-16 13:58] VITALS: BP 186/85; PULSE 75; O2SAT 98
--- NOTE | 2022-02-18 17:32 | CM.ED ---
ER DC F/u Call: ED Visit 02/16/2022 for fall with Rt rib pain. No Fx, + Contusion. Called patient listed number on demographics. No answer and VM did not identify correct patient identity, therefore no VM was left by this keno writer at this time. Aleksander Pierre, RNCM
== END 2022-02-16 14:02 | disposition home or self-care (01) ==
PROVIDERS: Emergency Provider Emergency Medicine; PCP Family Medicine; Visit Provider Emergency Medicine
DX: S20.211A Contusion of right front wall of thorax, initial encounter (principal); S60.511A Abrasion of right hand, initial encounter; M54.9 Dorsalgia, unspecified; W10.9XXA Fall (on) (from) unspecified stairs and steps, initial encounter; Y92.015 Private garage of single-family (private) house as the place of occurrence of the external cause; K21.9 Gastro-esophageal reflux disease without esophagitis; Z23 Encounter for immunization
CPT/HCPCS: 71101; 90471; 90715; 99282

== ENCOUNTER → 2022-04-07 | Outpatient (CLI) | payer MEDICARE, BC, SELFPAY ==
--- NOTE | 2022-04-07 10:15 | BI_ITS ---
MAMMOGRAPHY - BILATERAL SCREENING REASON FOR EXAM: Female, 81 years old. Routine annual screening examination. PERTINENT HISTORY: Mother with breast cancer. TECHNIQUE: Digital bilateral breast charlene (3D mammographic acquisition) in the CC and MLO projections. 2-D mediolateral oblique (MLO) and craniocaudad (CC) views of both breasts were obtained. CAD: Full Field Digital Mammography with Computer Added Detection was performed. COMPARISON: Comparison is made with prior study dated 04/05/2021 and 02/28/2020. FINDINGS: Breast Composition: The breasts are heterogeneously dense, which may obscure small masses. There are no dominant masses or suspicious calcifications. No other significant abnormalities are identified. There has been no significant change since the prior study. BI/SCRN MAMM (CAD)W/CHARLENE BILAT IMPRESSION: Stable bilateral screening mammogram. Yearly follow-up mammogram recommended. (A) ASSESSMENT CATEGORY: BIRADS Category 1: Negative. A letter regarding these results will be sent to the patient by the facility within 30 days. Approximately 10% of breast cancers are not detected by mammography. A normal mammogram should not delay biopsy of a clinically suspicious abnormality. [id number] Electronically Signed: Jorge Perez MD at 11:23 EDT ,
== END | disposition home or self-care (01) ==
LOC: OPBI 10:14
PROVIDERS: PCP Family Medicine; Visit Provider Family Medicine
DX: Z12.31 Encounter for screening mammogram for malignant neoplasm of breast (principal); Z80.3 Family history of malignant neoplasm of breast
CPT/HCPCS: 77063; 77067

== ENCOUNTER 2022-06-05 07:49 | Emergency (ER) | payer MEDICARE, BC, SELFPAY ==
[2022-06-05] VITALS (7 sets, daily range): BP systolic 144–176; BP diastolic 84–106; PULSE 83–115; RESP 18; TEMP 36.6–37; O2SAT 96–98; BMI 24.7
--- NOTE | 2022-06-05 08:00 | EKG12_ITS ---
Test Reason : NAUSEA Blood Pressure : / mmHG Vent. Rate : 107 BPM Atrial Rate : 107 BPM P-R Int : 186 ms QRS Dur : 102 ms QT Int : 350 ms P-R-T Axes : 003 -33 066 degrees QTc Int : 467 ms Sinus tachycardia with Fusion complexes Left axis deviation Septal infarct , age undetermined Abnormal ECG Confirmed by MARÍA SANTIAGO, ADALBERTO ([id number]), newspaper copy editor AMADO LONGO ([id number]) on 06/09/2022 9:27:40 AM Referred By: ANURAG Confirmed By:KRISHNA DANIEL MD
--- NOTE | 2022-06-05 08:02 | EDS_ITS ---
HPI History of Present Illness Chief Complaint: Nausea/Vomiting Narrative Narrative: 82-year-old female presenting with nausea. She states that on the 30 of last month she was treated for UTI. She states she was on Keflex and that she did have associated nausea with this. She states that she finished this course and now still continues to have nausea. She has been able to eat and drink. She denies vomiting. She does not have any urinary symptoms. She is not having any abdominal pain. She denies constipation or diarrhea. She denies a fever, cough, rhinorrhea, shortness of breath. She does not have any chest pain. She states that she did recently had a fall and had some right-sided rib pain associated with this that went away. She was unsure, if this could be her gallbladder but states she had her gallbladder checked in the past. She does not have pain associated with eating. [facility] Medical History Cancer Gastric reflux History of diverticulitis History of stress test Leg cramps Nausea Non-smoker Pulmonary nodule RUQ abdominal pain Wears dentures Wears glasses Home Medications Calcium Carbonate/Vitamin D 1 tab PO DAILY 08/01/13 [History Last Taken 08/25/17] Multivitamins,Therapeutic 1 tab PO DAILY 08/01/13 [History Last Taken 08/25/17] psyllium husk (aspartame) 3.4 gram oral powder packet (Metamucil Fiber Singles) 1 packet PO DAILY 08/02/13 [History Last Taken 08/25/17] omeprazole 20 mg capsule,delayed release 20 mg PO DAILY 02/16/22 [History Last Taken Unknown] ondansetron 4 mg disintegrating tablet 4 mg PO Q8H PRN nausea and vomiting #14 tabs 06/05/22 [Rx Last Taken Unknown] Allergy/AdvReac Type Severity Reaction Status Date / Time doxycycline AdvReac Severe Nausea Verified 06/05/22 07:53 erythromycin base AdvReac Severe Nausea Verified 06/05/22 07:53 [Erythromycin Base] Penicillins AdvReac Intermediate Hives Verified 06/05/22 07:53 Family History Mother Colon cancer Breast cancer Daughter Thyroid disorder Surgical History History of hysterectomy History of tubal ligation Social History Smoking Status: Never smoker alcohol intake: never ROS ROS ED Constitutional Constitutional ED: Denies chills or fever(s) Eyes Eyes: Denies blurry vision or change in vision ENT ENT ED: Denies rhinorrhea or sore throat Cardiovascular Cardiovascular: Reports racing heartbeat; Denies chest pain Respiratory/Chest Respiratory/Chest: Denies cough or dyspnea Gastrointestinal Gastrointestinal: Reports nausea; Denies abdominal pain or vomiting Genitourinary Genitourinary ED: Denies dysuria, hematuria or urinary frequency Musculoskeletal Musculoskeletal: Denies arthralgias, back pain or myalgias Integumentary Denies abscess Neurologic Neurologic: Denies headache(s) or paresthesias Psychiatric Psychiatric: Denies anxiety or depression EXAM Physical Exam Const Vital Signs: 06/05/22 07:50 06/05/22 07:53 06/05/22 08:10 Temperature 98 F 98 F Temperature Source Oral Oral Pulse Rate 115 H 115 H Respiratory Rate 18 18 Blood Pressure 176/106 H 176/106 H Blood Pressure Mean 129 129 Pulse Ox 98 98 Oxygen Delivery Method Room Air Room Air Room Air 06/05/22 08:10 06/05/22 09:14 06/05/22 09:14 Temperature 98 F 98 F 98 F Temperature Source Oral Oral Oral Pulse Rate 110 H Respiratory Rate 18 Blood Pressure 156/91 H Blood Pressure Mean 112 Pulse Ox 97 Oxygen Delivery Method Room Air 06/05/22 09:15 06/05/22 10:29 06/05/22 10:29 Temperature 98.6 F 98.6 F Temperature Source Temporal Pulse Rate 105 H 83 83 Respiratory Rate 18 18 18 Blood Pressure 150/89 H 144/84 H 144/84 H Blood Pressure Mean 109 104 Pulse Ox 97 96 96 Oxygen Delivery Method Room Air Room Air 06/05/22 10:31 Temperature 98.6 F Temperature Source Temporal Pulse Rate Respiratory Rate Blood Pressure Blood Pressure Mean Pulse Ox Oxygen Delivery Method Positive well nourished General Appearance ED: NAD; Negative for pallor HEENT Reports moist mucous membranes Negative for trauma Eyes PERRL and EOMs intact bilaterally General Eye ED: Negative for pale conjunctiva or scleral icterus Chest Wall inspection of chest normal Resp normal respiratory effort and clear to auscultation bilaterally Auscultation: Negative for rales, rhonchi or wheezes Cardio regular rate and regular rhythm GI normal to inspection, nondistended, normoactive bowel sounds Palpation: soft Extremity normal to inspection General Extremety ED: Negative for edema or tenderness General Extremity: Negative for edema Neuro oriented x3 and CN's II-XII intact bilaterally Sensorium / Orientation: alert Motor Exam: strength 5/5 throughout Psych mental status grossly normal Skin no rashes or lesions noted General Skin Exam: Negative for jaundice or pallor MDM MDM MDM Narrative Medical decision making narrative: 82-year-old female presenting with nausea and shakiness. Her heart rate was noted to be tachycardic and I obtained an EKG which on my interpretation shows a sinus tachycardia with a ventricular rate of 107 bpm without sign of ischemic change. Chest x-ray on my interpretation is no acute cardiopulmonary process and radiologist agree. CBC within normal limits. Coagulation studies normal. Renal function and electrolytes normal with exception of potassium of 3.3. Urinalysis negative for infection. Lactic acid 1.6. Patient was given a liter of IV fluids and Zofran. Clinically she is stable. Her heart rate improved to 83. I did not find any significant findings in her lab work. I did test her for COVID at her request that this is negative as well. I feel the patient is stable for discharge home and I will give her a prescription for Zofran. Impression: 1. Nausea 2. Tachycardia 3. Generalized weakness Lab Data Attestation: I reviewed the patient's lab results. Labs: Laboratory Results - last 24 hr 06/05/22 06/05/22 06/05/22 08:01 08:01 08:01 WBC 4.8 RBC 4.09 L Hgb 12.3 Hct 37.3 MCV 91.2 MCH 30.1 MCHC 33.0 RDW Std Deviation 39.8 RDW Coeff of Karthikeyan 11.9 Plt Count 228 MPV 11.6 Immature Gran % (Auto) 0.000 Neut % (Auto) 65.7 Lymph % (Auto) 24.8 Centre % (Auto) 7.6 Eos % (Auto) 1.5 Baso % (Auto) 0.4 Absolute Neuts (auto) 3.1 Absolute Lymphs (auto) 1.18 Nucleated RBC % 0 PT 12.7 INR 1.0 APTT 24.3 Sodium 141 Potassium 3.3 L Chloride 108 H Carbon Dioxide 24.0 Anion Gap 9 BUN 11 Creatinine 0.84 Estim Creat Clear Calc 47.26 Est GFR (MDRD) Af Amer 84 Est GFR (MDRD) Non-Af 70 BUN/Creatinine Ratio 13.2 Glucose 113 H Lactic Acid Calcium 9.5 Total Bilirubin 0.70 AST 24 ALT 24 Alkaline Phosphatase 72 Troponin I High Sens 7 Total Protein 7.6 Albumin 4.2 Globulin 3.4 Albumin/Globulin Ratio 1.2 Urine Color Urine Clarity Urine pH Ur Specific [place] Urine Protein Urine Glucose (UA) Urine Ketones Urine Occult Blood Urine Nitrite Urine Bilirubin Urine Urobilinogen Ur Leukocyte Esterase Urine RBC Urine WBC Ur Squamous Epith Cells Urine Bacteria Urine Mucus 06/05/22 06/05/22 08:01 08:20 WBC RBC Hgb Hct MCV MCH MCHC RDW Std Deviation RDW Coeff of Karthikeyan Plt Count MPV Immature Gran % (Auto) Neut % (Auto) Lymph % (Auto) Centre % (Auto) Eos % (Auto) Baso % (Auto) Absolute Neuts (auto) Absolute Lymphs (auto) Nucleated RBC % PT INR APTT Sodium Potassium Chloride Carbon Dioxide Anion Gap BUN Creatinine Estim Creat Clear Calc Est GFR (MDRD) Af Amer Est GFR (MDRD) Non-Af BUN/Creatinine Ratio Glucose Lactic Acid 1.6 Calcium Total Bilirubin AST ALT Alkaline Phosphatase Troponin I High Sens Total Protein Albumin Globulin Albumin/Globulin Ratio Urine Color Yellow Urine Clarity Clear Urine pH 8.0 Ur Specific [place] 1.015 Urine Protein Negative Urine Glucose (UA) Normal Urine Ketones 5 H Urine Occult Blood Negative Urine Nitrite Negative Urine Bilirubin Negative Urine Urobilinogen Normal Ur Leukocyte Esterase 25 H Urine RBC 0 SEEN Urine WBC 0 SEEN Ur Squamous Epith Cells 0 SEEN Urine Bacteria 0 SEEN Urine Mucus 0 SEEN Radiography Diagnostic Testing: Clinical Impression(s) from Imaging Studies Chest X-Ray 06/05/22 08:40 IMPRESSION: Hyperinflation. The lungs are clear. Electronically Signed: Jorge Perez MD at 9:11 EDT , Discharge Plan Triage Chief Complaint: Nausea/Vomiting ED Provider: Thuan Milian Dx/Rx/DC Orders Instructions: Understanding Tachycardia, ED Vomiting (Adult) Prescriptions: New ondansetron 4 mg tablet,disintegrating 4 mg PO Q8H PRN (Reason: nausea and vomiting) Qty: 14 0RF No Action Multivitamins,Therapeutic tablet 1 tab PO DAILY Calcium Carbonate/Vitamin D tablet 1 tab PO DAILY Metamucil Fiber Singles 1 PACKET packet 1 packet PO DAILY omeprazole 20 mg capsule,delayed release(DR/EC) 20 mg PO DAILY Label Comments: TAKE 1 CAPSULE BY MOUTH ONCE DAILY Primary Care Provider: Paola Corona Referrals: Paola Corona MD [Primary Care Provider] - Disposition Disposition: Home, Self Care
--- NOTE | 2022-06-05 08:04 | NURSING ---
NO OLD EKGS
[2022-06-05] MEDS: 0.9% Normal Saline 1,000 ML 999 ML IV (08:07)
[2022-06-05] MEDS: Ondansetron 4 MG/2 ML Vial IV (08:07)
[2022-06-05 08:14] LABS: Absolute Lymphocyte Count 1.18 X10^3/uL (0.83-4.51); Absolute Neutrophil Count 3.1 X10^3/uL (2.0-7.7); Basophil# 0.02 X10^3/uL; Basophil% 0.4 % (0-1); Eosinophil# 0.07 X10^3/uL; Eosinophils% 1.5 % (0-5); Hematocrit 37.3 % (37-47); Hemoglobin 12.3 g/dL (12.0-15.0); Lymphocyte # 1.18 X10^3/ul (0.83-4.51); Lymphocyte % 24.8 % (19-41); Mean Corpuscular Hgb 30.1 pg (27.0-32.0); Mean Corpuscular Volume 91.2 fL (81-99); Mean Platelet Vol. 11.6 fl (6.2-12.0); Monocyte# 0.36 X10^3/uL; Monocyte% 7.6 % (0-10); NRBC Flagged by Analyzer 0 % (0-5); Neutrophil # 3.12 X10^3/uL (2.7-7.7); Neutrophil % 65.7 % (47-70); Platelet Count 228 K/mm3 (150-450); RBC Distribution Width CV 11.9 % (11.6-14.6); RBC Distribution Width SD 39.8 fl (35.1-43.9); Red Blood Count 4.09 M/mm3 (4.2-5.4); White Blood Count 4.8 K/mm3 (4.4-11.0)
[2022-06-05 08:25] LABS: Partial Thromboplast Time 24.3 Seconds (24.1-36.2); Prothrombin Time (Protime)PT. 12.7 SECONDS (11.7-14.9)
[2022-06-05 08:33] LABS: ALB/GLOB Ratio 1.2 RATIO (0.9-2.4); AST(SGOT) 24 U/L (15-37); Alanine Aminotransfer ALT/SGPT 24 U/L (13-56); Albumin, Serum 4.2 g/dL (3.2-5.0); Alkaline Phosphatase 72 U/L (45-117); Anion Gap 9 (5-15); BUN 11 mg/dL (7-18); BUN/Creat Ratio 13.2 RATIO (10-20); Calcium,Total 9.5 mg/dL (8.5-10.1); Chloride 108 mmol/L (98-107); Creatinine, Serum 0.84 mg/dL (0.55-1.02); EST Glomerular Filtration Rate 70 mL/min (>60); Est Glom Filt Rate - Afr Amer 84 mL/min (>60); Estimated Creatinine Clearance 47.26 ml/min; Globulin 3.4 g/dL (2.2-4.2); Glucose 113 mg/dL (74-106); Potassium 3.3 mmol/L (3.5-5.1); Protein, Total 7.6 g/dL (6.4-8.2); Sodium Level 141 mmol/L (136-145); Troponin-I HS 7 pg/mL (3.0-54.0)
[2022-06-05 08:34] LABS: Bacteria 0 SEEN /hpf (None Seen); Mucous, Urine 0 SEEN /hpf (<or=2+); Red Blood Cells-Urine 0 SEEN /hpf (0-5); Squamous Epithelial Cells - UA 0 SEEN /hpf (5-10); White Blood Cells 0 SEEN /hpf (0-5)
[2022-06-05 08:37] LABS: Color, Urine Yellow (Yellow); Glucose, Dipstick Normal (Normal); Ketone-Dipstick 5 mg/dl (Negative); Leukocyte Esterase-Dipstick 25 /ul (Negative); Nitrite-Dipstick Negative (Negative); Occult Blood-Urine Negative /ul (Negative); Protein-Dipstick Negative (Negative); Specific Gravity, Urine 1.015 (1.002-1.030); Urine Bilirubin Dipstick Negative (Negative); Urine Clarity Clear (Clear); Urine Urobilinogen Normal (Normal)
--- NOTE | 2022-06-05 08:40 | RAD_ITS ---
STUDY: X-RAY CHEST REASON FOR EXAM: Female, 82 years old. Weakness TECHNIQUE: Single AP portable view of the chest. COMPARISON: Comparison is made with prior study of 02/16/2022. FINDINGS: EKG electrodes are seen. Hyperinflation. The lungs are clear. There is no demonstrated pleural abnormality. Normal size heart. Normal mediastinum and yair. Normal visualized pulmonary arteries. There is atherosclerotic tortuosity of the aortic arch and descending thoracic aorta. There are diffuse degenerative changes of the visualized thoracic spine. Normal visualized ribs, clavicles, and shoulders. There is no demonstrated abnormality of the visualized soft tissue structures of the upper abdomen. RAD/Chest 1 View (Portable) IMPRESSION: Hyperinflation. The lungs are clear. Electronically Signed: Jorge Perez MD at 9:11 EDT ,
[2022-06-05 08:45] LABS: Lactic Acid 1.6 mmol/L (0.4-1.9)
== END 2022-06-05 11:19 | disposition home or self-care (01) ==
PROVIDERS: Emergency Provider Student in an Organized Health Care Education/Training Program; PCP Family Medicine; Visit Provider Student in an Organized Health Care Education/Training Program
DX: R11.0 Nausea (principal); R00.0 Tachycardia, unspecified; Z20.822 Contact with and (suspected) exposure to COVID-19; R53.1 Weakness; K21.9 Gastro-esophageal reflux disease without esophagitis; Z79.899 Other long term (current) drug therapy
CPT/HCPCS: 71045; 80053; 81001; 83605; 84484; 85025; 85610; 85730; 87040; 87077; 87086; 87088; 87811; 93005; 96361; 96374; 99285; J7030; A4216; J2405

== ENCOUNTER → 2022-06-13 | Outpatient (CLI) | payer MEDICARE, BC, SELFPAY ==
--- NOTE | 2022-06-13 16:15 | RAD_ITS ---
STUDY: X-RAY - ABDOMEN/PELVIS REASON FOR EXAM: Female, 82 years old. NAUSEA TECHNIQUE: 2 AP views COMPARISON: None. FINDINGS: Normal visualized lung bases. There is an unremarkable bowel gas pattern. There is no demonstrated free abdominal air. The visualized liver, spleen and kidneys are grossly normal in size and morphology. Normal soft tissue structures. Mild dextroscoliosis. RAD/Abd Inc Decub and/or Erect IMPRESSION: Normal bowel gas pattern. Mild dextroscoliosis. Electronically Signed: Eb Barrios MD, LISSA at 17:42 EDT ,
== END | disposition home or self-care (01) ==
LOC: MTRAD 16:14
PROVIDERS: PCP Family Medicine; Referring Provider Family Medicine; Visit Provider Family Medicine
DX: R11.0 Nausea (principal)
CPT/HCPCS: 74019

== ENCOUNTER → 2022-06-26 | Outpatient (CLI) | payer MEDICARE, BC, SELFPAY ==
--- NOTE | 2022-06-26 07:45 | NM_ITS ---
CLINICAL: 82-year-old female with history of chronic nausea. RADIONUCLIDE HEPATOBILIARY SCINTIGRAPHY COMPARISON: Hepatobiliary scintigraphy study report 05/14/2021 FINDINGS: Following the intravenous administration of 5.2 mCi of 99m Tc Mebrofenin, hepatobiliary images reveal: 1. Relatively prompt and homogeneous radiopharmaceutical concentration is noted by a normal sized liver. No parenchymal defects are identified. 2. Gallbladder activity is identified at 21 minutes post radiopharmaceutical administration. 3. Small intestinal tract is observed at 14-15 following tracer injection. 4. Washout of the radiopharmaceutical by the hepatic parenchyma appears qualitatively normal. NM/Hepatobilliary Imaging IMPRESSION: 1. NORMAL 99m Tc Mebrofenin hepatobiliary imaging examination. A. Visualization of the gallbladder within 60 minutes post radiopharmaceutical administration excludes acute cholecystitis with 97% certitude. (Chacorta et al, Nucl Med [employer] pg. 35, 1981). B. Compared to the hepatobiliary scintigraphy study report dated 05/14/2021, there is minimal interval change. Electronically Signed: Tristin Rodriguez, at 23:01 EDT ,
== END | disposition home or self-care (01) ==
LOC: NM 07:44
PROVIDERS: PCP Family Medicine; Referring Provider Family Medicine; Visit Provider Family Medicine
DX: R11.0 Nausea (principal)
CPT/HCPCS: 78226; A9537

== ENCOUNTER 2023-03-16 09:27 | Outpatient (CLI) | payer MEDICARE, BC, SELFPAY ==
[2023-03-16 11:20] LABS: Absolute Neutrophil Count 3.6 X10^3/uL (2.0-7.7); Basophil# 0.04 X10^3/uL; Basophil% 0.8 % (0-1); Eosinophil# 0.09 X10^3/uL; Eosinophils% 1.8 % (0-5); Hematocrit 38.5 % (37-47); Lymphocyte % 16.2 % (19-41); Mean Corp Hgb Conc 31.2 g/dL (32-36); Mean Corpuscular Hgb 29.7 pg (27.0-32.0); Mean Corpuscular Volume 95.3 fL (81-99); Mean Platelet Vol. 12.9 fl (6.2-12.0); Monocyte# 0.44 X10^3/uL; Monocyte% 8.9 % (0-10); NRBC Flagged by Analyzer 0 % (0-5); Neutrophil # 3.55 X10^3/uL (2.7-7.7); Neutrophil % 72.1 % (47-70); Platelet Count 216 K/mm3 (150-450); RBC Distribution Width CV 12.7 % (11.6-14.6); RBC Distribution Width SD 44.4 fl (35.1-43.9); Red Blood Count 4.04 M/mm3 (4.2-5.4); White Blood Count 4.9 K/mm3 (4.4-11.0)
[2023-03-16 12:07] LABS: ALB/GLOB Ratio 0.9 RATIO (0.9-2.4); AST(SGOT) 31 U/L (15-37); Alanine Aminotransfer ALT/SGPT 30 U/L (13-56); Alkaline Phosphatase 61 U/L (45-117); Anion Gap 6 (5-15); BUN 18 mg/dL (7-18); BUN/Creat Ratio 22.6 RATIO (10-20); Calcium,Total 9.9 mg/dL (8.5-10.1); Chloride 108 mmol/L (98-107); EST Glomerular Filtration Rate 73 mL/min (>60); Est Glom Filt Rate - Afr Amer 89 mL/min (>60); Globulin 4.4 g/dL (2.2-4.2); Glucose 90 mg/dL (74-106); LDH 300 U/L (84-246); Potassium 3.3 mmol/L (3.5-5.1); Protein, Total 8.4 g/dL (6.4-8.2); Sodium Level 140 mmol/L (136-145)
[2023-03-17 04:07] LABS: Cancer Antigen 125 21.6 U/mL (0.0-38.1)
== END 2023-03-16 23:59 | disposition home or self-care (01) ==
LOC: LAB 09:30
PROVIDERS: PCP Family Medicine; Referring Provider Internal Medicine Medical Oncology; Visit Provider Internal Medicine Medical Oncology
DX: Z85.42 Personal history of malignant neoplasm of other parts of uterus (principal)
CPT/HCPCS: 36415; 80053; 83615; 85025; 86304

== ENCOUNTER → 2023-04-20 | Outpatient (CLI) | payer MEDICARE, BC, SELFPAY ==
--- NOTE | 2023-04-20 15:32 | BI_ITS ---
MAMMOGRAPHY - BILATERAL SCREENING REASON FOR EXAM: Female, 83 years old. Routine annual screening examination. PERTINENT HISTORY: Mother with breast cancer. TECHNIQUE: Digital bilateral breast charlene (3D mammographic acquisition) in the CC and MLO projections. 2-D mediolateral oblique (MLO) and craniocaudad (CC) views of both breasts were obtained. CAD: Full Field Digital Mammography with Computer Added Detection was performed. COMPARISON: Comparison is made with prior study April 07, 2022 and April 05, 2021. FINDINGS: Breast Composition: The breasts are heterogeneously dense, which may obscure small masses. There are no dominant masses or suspicious calcifications. No other significant abnormalities are identified. There has been no significant change since the prior study. BI/SCRN MAMM (CAD)W/CHARLENE BILAT IMPRESSION: Stable bilateral screening mammogram. Yearly follow-up mammogram recommended. (A) ASSESSMENT CATEGORY: BIRADS Category 1: Negative. A letter regarding these results will be sent to the patient by the facility within 30 days. Approximately 10% of breast cancers are not detected by mammography. A normal mammogram should not delay biopsy of a clinically suspicious abnormality. [id number] Electronically Signed: Jorge Perez MD at 8:33 EDT ,
== END | disposition home or self-care (01) ==
LOC: OPBI 15:31
PROVIDERS: PCP Family Medicine; Referring Provider Family Medicine; Visit Provider Family Medicine
DX: Z12.31 Encounter for screening mammogram for malignant neoplasm of breast (principal); Z80.3 Family history of malignant neoplasm of breast
CPT/HCPCS: 77063; 77067

== ENCOUNTER → 2024-02-04 | Outpatient (CLI) | payer MEDICARE, BC, SELFPAY | END | disposition home or self-care (01) | LOC: LABSPEC 10:30 | PROVIDERS: PCP Family Medicine; Referring Provider Physician Assistant Surgical; Visit Provider Physician Assistant Surgical | DX: R35.0 Frequency of micturition (principal) | CPT/HCPCS: 87077; 87086; 87088; 87186 ==

== ENCOUNTER 2024-03-12 22:56 | Emergency (ER) | payer MEDICARE, BC, SELFPAY ==
[2024-03-12 22:56] VITALS: BP 182/89; PULSE 89; RESP 17; TEMP 36.3; O2SAT 98
--- NOTE | 2024-03-12 23:09 | RAD_ITS ---
INDICATION: Trauma, fall, knee injury and pain EXAMINATION/TECHNIQUE: X-RAY - LEFT XR Knee Complete 4 Views or More 4 VIEWS COMPARISON: None. FINDINGS: SOFT TISSUES: No soft tissue swelling or gas. No radiopaque foreign body. BONES/JOINTS: No acute fracture. Joint spaces anatomically aligned with mild degenerative changes.. No sclerotic or destructive changes observed. RAD/Knee 4 or More Views IMPRESSION: No acute bony injury. Electronically Signed: Gregg Olivares MD at 23:56 EDT ,
--- NOTE | 2024-03-12 23:09 | RAD_ITS ---
INDICATION: Trauma, fall, toe injury EXAMINATION/TECHNIQUE: X-RAY - LEFT FOOT XR Toes Min 2 Views 3 VIEWS COMPARISON: None. FINDINGS: SOFT TISSUES: No soft tissue swelling or gas. No radiopaque foreign body. BONES/JOINTS: No acute fracture. Joint spaces anatomically aligned. No sclerotic or destructive changes observed. RAD/Toe(s) Min 2 Views IMPRESSION: No acute bony injury. Electronically Signed: Gregg Olivares MD at 23:58 EDT ,
--- NOTE | 2024-03-12 23:09 | RAD_ITS ---
INDICATION: Trauma, fall, knee injury EXAMINATION/TECHNIQUE: X-RAY - RIGHT XR Knee Complete 4 Views or More 4 VIEWS COMPARISON: None. FINDINGS: SOFT TISSUES: No soft tissue swelling or gas. No radiopaque foreign body. BONES/JOINTS: No acute fracture. Joint spaces anatomically aligned with mild degenerative changes. No sclerotic or destructive changes observed. RAD/Knee 4 or More Views IMPRESSION: No acute bony injury. Electronically Signed: Gregg Olivares MD at 23:54 EDT ,
--- NOTE | 2024-03-12 23:10 | EDS_ITS ---
HPI HPI - Fall History of Present Illness Chief Complaint: Fall Informant: patient and family Narrative Narrative: 83-year-old female was walking into the kitchen when she struck her left little toe on a chair caused her to fall forward onto her bilateral knees and hands. She states the upper extremities feel okay. She notes bilateral knee pain and swelling. She took a Motrin and started using her late 's cane. She was worried that she may not be able to get out of bed later tonight. She states the left little toe feels sore but okay. She denies any head injury or headache. No neck pain or back pain. Patient does not take anticoagulants. She denies any prior surgeries or known injuries to the knees. [facility] Medical History Uncontrolled hypertension Thrush, oral Wears glasses Wears dentures Cancer History of diverticulitis Gastric reflux Non-smoker Leg cramps History of stress test Nausea RUQ abdominal pain Pulmonary nodule Home Medications ?Medication ?Instructions ?Recorded ?Last Taken ?Type Calcium Carbonate/Vitamin D 1 tab PO DAILY 08/01/13 08/25/17 History Multivitamins,Therapeutic 1 tab PO DAILY 08/01/13 08/25/17 History psyllium husk (aspartame) 3.4 gram 1 packet PO DAILY 08/02/13 08/25/17 History oral powder packet (Metamucil Fiber Singles) lactobacillus combination no.9 4 4,000 mmu cells PO DAILY 03/23/23 Unknown History billion cell capsule (Adult 50 Plus Probiotic) clindamycin HCl 300 mg capsule 300 mg PO TID #15 caps 02/08/24 Unknown Rx nystatin 100,000 unit/mL oral 4 ml PO .qid 4 weeks #473 mL 02/24/24 Unknown Rx suspension Allergy/AdvReac Type Severity Reaction Status Date / Time doxycycline AdvReac Severe Nausea Verified 03/12/24 22:57 erythromycin base AdvReac Severe Nausea Verified 03/12/24 22:57 (Erythromycin Base) Penicillins AdvReac Intermediate Hives Verified 03/12/24 22:57 Family History Mother Colon cancer Breast cancer Daughter Thyroid disorder Surgical History History of tubal ligation History of hysterectomy Social History Smoking Status: Never smoker alcohol intake: never ROS ROS ED Constitutional Constitutional ED: Denies chills, fever(s) or weight loss Eyes Eyes: Denies change in vision or diplopia ENT ENT ED: Denies ear pain, rhinorrhea or sore throat Cardiovascular Cardiovascular: Denies chest pain, orthopnea, palpitations or racing heartbeat Respiratory/Chest Respiratory/Chest: Denies cough, dyspnea or orthopnea Gastrointestinal Gastrointestinal: Denies abdominal pain, diarrhea, nausea or vomiting Genitourinary Genitourinary ED: Denies dysuria, hematuria or urinary frequency Musculoskeletal Musculoskeletal: Reports other Details: Left little toe pain. Bilateral knee pain ; Denies arthralgias or myalgias Integumentary Denies abscess or rash Neurologic Neurologic: Denies headache(s) or weakness Psychiatric Psychiatric: Denies anxiety, depression, suicidal ideation or suicidal thoughts Endocrine Endocrinology: Denies polydipsia, polyphagia or polyuria Allergic/Immunologic Allergic/Immunologic ED: Denies mouth swelling, tongue swelling or urticaria EXAM Physical Exam Const Vital Signs: 03/12/24 22:56 Temperature 97.4 F L Temperature Source Temporal Pulse Rate 89 Respiratory Rate 17 Blood Pressure 182/89 H Blood Pressure Mean 120 Pulse Ox 98 Oxygen Delivery Method Room Air Positive well nourished and well developed General Appearance ED: well developed and NAD HEENT Reports normocephalic, head/scalp atraumatic and moist mucous membranes Eyes PERRL and EOMs intact bilaterally Neck no lymphadenopathy, supple and no JVD Resp normal respiratory effort and clear to auscultation bilaterally Cardio regular rate, regular rhythm and no murmurs GI normal to inspection, nondistended, normoactive bowel sounds and non-tender Palpation: soft Back/Spine no CVA tenderness and normal ROM Extremity Extremity Narrative: Patient is guarding during the exam but I do not appreciate significant laxity. She has bilateral swelling of the knees contusion. Extensor mechanisms are intact bilaterally. Left little toe is mildly swollen and ecchymotic. No significant deformity. General Extremety ED: Negative for edema General Extremity: Negative for edema Neuro oriented x3 and CN's II-XII intact bilaterally Sensorium / Orientation: alert Motor Exam: strength 5/5 throughout Psych mental status grossly normal Mood & Affect: Negative for depressed or tearful Skin no rashes or lesions noted and no wounds MDM MDM MDM Narrative Medical decision making narrative: Differential diagnosis includes but not limited to fracture or ligamentous inj ury sprain strain contusion effusion traumatic bursitis My independent interpretation of plain films of the left little toe is no acute fracture. My independent interpretation of the bilateral knee films is no acute fracture. Soft tissue swelling appreciated. Patient will use Mykel wrap for compression ice Tylenol and/or Motrin. She is to expect significant soreness. At this point I do not appreciate ligamentous instability but as noted above the patient was guarding. She will use cane for support. Return if worsening or concerns follow-up with primary care 10 to 14 days if not improved History & Record Review Discussion w/independent historian: Patient and Family Radiography Diagnostic Testing: Clinical Impression(s) from Imaging Studies Knee X-Ray 03/12/24 23:09 IMPRESSION: No acute bony injury. Electronically Signed: Gregg Olivares MD at 23:54 EDT , Knee X-Ray 03/12/24 23:09 IMPRESSION: No acute bony injury. Electronically Signed: Gregg Olivares MD at 23:56 EDT , Toe X-Ray 03/12/24 23:09 IMPRESSION: No acute bony injury. Electronically Signed: Gregg Olivares MD at 23:58 EDT , Discharge Plan Triage Chief Complaint: Fall ED Provider: Freeman Horton Dx/Rx/DC Orders Prescriptions: No Action Adult 50 Plus Probiotic 4 billion cell capsule 4,000 mmu cells PO DAILY Rx Instructions: administer with a meal nystatin 100,000 unit/mL suspension 4 ml PO .qid 28 Days Qty: 473 0RF Rx Instructions: swish and swallow, and no food or drink for 30 minutes after each dose Multivitamins,Therapeutic tablet 1 tab PO DAILY Calcium Carbonate/Vitamin D tablet 1 tab PO DAILY Metamucil Fiber Singles 1 PACKET packet 1 packet PO DAILY clindamycin HCl 300 mg capsule 300 mg PO TID Qty: 15 0RF Primary Care Provider: Paola Corona Referrals: Paola Corona MD [Primary Care Provider] - Print Language: Belarusian
[2024-03-12 23:13] VITALS: BMI 21.6
== END 2024-03-13 00:29 | disposition home or self-care (01) ==
PROVIDERS: Emergency Provider Emergency Medicine; PCP Family Medicine; Visit Provider Emergency Medicine
DX: S80.01XA Contusion of right knee, initial encounter (principal); S80.02XA Contusion of left knee, initial encounter; M79.675 Pain in left toe(s); W18.09XA Striking against other object with subsequent fall, initial encounter; Y93.01 Activity, walking, marching and hiking; Y92.000 Kitchen of unspecified non-institutional (private) residence as the place of occurrence of the external cause; Z79.899 Other long term (current) drug therapy
CPT/HCPCS: 73564; 73660; 99282

== ENCOUNTER → 2024-05-02 | Outpatient (CLI) | payer MEDICARE, BC, SELFPAY ==
--- NOTE | 2024-05-02 13:27 | BI_ITS ---
MAMMOGRAPHY - BILATERAL SCREENING REASON FOR EXAM: Female, 84 years old. Routine annual screening examination. PERTINENT HISTORY: Mother with breast cancer. History of prior uterine carcinoma. TECHNIQUE: Digital bilateral breast charlene (3D mammographic acquisition) in the CC and MLO projections. 2-D mediolateral oblique (MLO) and craniocaudad (CC) views of both breasts were obtained. CAD: Full Field Digital Mammography with Computer Added Detection was performed. COMPARISON: Comparison is made with prior study of April 20, 2023 and April 07, 2022. FINDINGS: Breast Composition: The breasts are heterogeneously dense, which may obscure small masses. There are no dominant masses or suspicious calcifications. No other significant abnormalities are identified. There has been no significant change since the prior study. BI/SCRN MAMM (CAD)W/CHARLENE BILAT IMPRESSION: Stable bilateral screening mammogram. Yearly follow-up mammogram recommended. (A) ASSESSMENT CATEGORY: BIRADS Category 1: Negative. A letter regarding these results will be sent to the patient by the facility within 30 days. Approximately 10% of breast cancers are not detected by mammography. A normal mammogram should not delay biopsy of a clinically suspicious abnormality. [id number] Electronically Signed: Jorge Perez MD at 14:37 EDT ,
== END | disposition home or self-care (01) ==
LOC: OPBI 13:14
PROVIDERS: PCP Family Medicine; Referring Provider Family Medicine; Visit Provider Family Medicine
DX: Z12.31 Encounter for screening mammogram for malignant neoplasm of breast (principal); Z80.3 Family history of malignant neoplasm of breast
CPT/HCPCS: 77063; 77067

== ENCOUNTER → 2024-05-09 | Outpatient (CLI) | payer MEDICARE, BC, SELFPAY ==
--- NOTE | 2024-05-09 15:48 | RAD_ITS ---
EXAM: XR ABDOMEN, 2 VIEWS AND XR CHEST, 1 VIEW CLINICAL INDICATION: nausea and constipation TECHNIQUE: Frontal view of the chest, frontal view of the abdomen/pelvis and upright or decubitus view of the abdomen. COMPARISON: No relevant prior studies available. FINDINGS: CHEST: LUNGS AND PLEURAL SPACES: Unremarkable. No consolidation or edema. No pneumothorax. No effusion. HEART: Unremarkable. Cardiac silhouette not enlarged. MEDIASTINUM: Central airways and mediastinal contour are unremarkable. ABDOMEN: INTRAPERITONEAL SPACE: No free air. GASTROINTESTINAL TRACT: Unremarkable. Non-obstructive. No bowel or stomach distention. ORGANS: Unremarkable as visualized. No organomegaly. No abnormal calcifications. TUBES, LINES AND DEVICES: None. BONES/JOINTS: No acute findings. SOFT TISSUES: No acute findings. RAD/Acute Abdomen Inc Chest IMPRESSION: Negative chest and abdominal series. Electronically Signed: Delfin Brito MD at 23:34 EDT ,
== END | disposition home or self-care (01) ==
LOC: MTRAD 15:48
PROVIDERS: PCP Family Medicine; Referring Provider Family Medicine; Visit Provider Family Medicine
DX: R11.0 Nausea (principal)
CPT/HCPCS: 74022

== ENCOUNTER → 2024-05-18 | Outpatient (CLI) | payer MEDICARE, BC, SELFPAY ==
--- NOTE | 2024-05-18 07:11 | US_ITS ---
HISTORY: nausea. TECHNIQUE: Rodríguez scale and color doppler imaging was performed of the right upper quadrant. 94 images. COMPARISON: CT 07/26/2015. FINDINGS: LIVER: 13.2 cm in length. Homogeneous echotexture without focal lesion demonstrated. No intrahepatic ductal dilatation. MAIN PORTAL VEIN: Patent with flow in the appropriate direction. COMMON BILE DUCT: 3 mm in diameter. GALLBLADDER: No gallstones. 2 mm wall thickness. No pericholecystic fluid. Sonographic Pang sign negative. PANCREAS: Visualized proximal portion unremarkable. RIGHT KIDNEY: 9.5 cm in length. No hydronephrosis. 1.6 x 2.8 x 2.9 cm septated lower pole cyst. 1.2 cm simple cyst also seen. 3 mm echogenic focus. US/Abdomen Limited IMPRESSION: No sonographic evidence of cholelithiasis. Small nonobstructing right renal calculus. Right renal cysts. Electronically Signed: Rahel Alarcon MD at 8:47 EDT ,
== END | disposition home or self-care (01) ==
PROVIDERS: PCP Family Medicine; Referring Provider Family Medicine; Visit Provider Family Medicine
DX: R11.0 Nausea (principal)
CPT/HCPCS: 76705

== ENCOUNTER → 2024-10-24 | Outpatient (CLI) | payer MEDICARE, BC, SELFPAY ==
[2024-10-24 18:01] LABS: Absolute Lymphocyte Count 1.01 X10^3/uL (0.83-4.51); Absolute Neutrophil Count 7.7 X10^3/uL (2.0-7.7); Basophil# 0.05 X10^3/uL; Basophil% 0.5 % (0-1); Eosinophil# 0.04 X10^3/uL; Eosinophils% 0.4 % (0-5); Hematocrit 37.3 % (37-47); Hemoglobin 12.2 g/dL (12.0-15.0); Lymphocyte # 1.01 X10^3/ul (0.83-4.51); Lymphocyte % 10.6 % (19-41); Mean Corp Hgb Conc 32.7 g/dL (32-36); Mean Corpuscular Volume 91.6 fL (81-99); Mean Platelet Vol. 11.5 fl (6.2-12.0); Monocyte# 0.76 X10^3/uL; Monocyte% 7.9 % (0-10); NRBC Flagged by Analyzer 0 % (0-5); Neutrophil # 7.67 X10^3/uL (2.7-7.7); Neutrophil % 80.3 % (47-70); Platelet Count 296 K/mm3 (150-450); RBC Distribution Width SD 40.2 fl (35.1-43.9); Red Blood Count 4.07 M/mm3 (4.2-5.4); White Blood Count 9.6 K/mm3 (4.4-11.0)
[2024-10-24 18:57] LABS: AST(SGOT) 26 U/L (15-37); Alanine Aminotransfer ALT/SGPT 27 U/L (13-56); Albumin, Serum 3.9 g/dL (3.2-5.0); Alkaline Phosphatase 76 U/L (45-117); Anion Gap 5 (5-15); BUN 13 mg/dL (7-18); BUN/Creat Ratio 17.8 RATIO (10-20); Calcium,Total 9.4 mg/dL (8.5-10.1); Chloride 106 mmol/L (98-107); Creatinine, Serum 0.73 mg/dL (0.55-1.02); EST Glomerular Filtration Rate 81 mL/min (>60); Est Glom Filt Rate - Afr Amer 98 mL/min (>60); Globulin 4.1 g/dL (2.2-4.2); Glucose 104 mg/dL (74-106); Potassium 3.4 mmol/L (3.5-5.1); Sodium Level 136 mmol/L (136-145)
== END | disposition home or self-care (01) ==
LOC: MFPLAB 16:11
PROVIDERS: PCP Family Medicine; Referring Provider Family Medicine; Visit Provider Family Medicine
DX: R00.0 Tachycardia, unspecified (principal)
CPT/HCPCS: 36415; 80053; 84443; 85025

== ENCOUNTER → 2024-12-20 | Outpatient (CLI) | payer MEDICARE, BC, SELFPAY ==
[2024-12-20 19:47] LABS: Thyroid Stim Hormone (TSH) 0.321 uIU/mL (0.300-4.200)
== END | disposition home or self-care (01) ==
LOC: MFPLAB 10:45
PROVIDERS: PCP Family Medicine; Referring Provider Family Medicine; Visit Provider Family Medicine
DX: E03.9 Hypothyroidism, unspecified (principal)
CPT/HCPCS: 36415; 84443

== ENCOUNTER → 2025-02-03 | Outpatient (CLI) | payer MEDICARE, BC, SELFPAY ==
--- NOTE | 2025-02-03 06:54 | ECHOD_ITS ---
Reason For Study Reason For Study: SUPRAVENTRICULAR TACHYCARDIA Procedure This was a 2D Doppler, Color Flow transthoracic echocardiogram. Exam performed in department. Left Ventricle Normal LV size. Left ventricular systolic function is normal. The left ventricular ejection fraction is 60 %. No regional wall motion abnormalities noted. Right Ventricle Normal RV size. Normal systolic function. Mitral Valve Bileaflet diffuse mitral valve thickening. Mild mitral valve prolapse. Mild (1+) eccentric mitral valve insufficiency. Tricuspid Valve Normal tricuspid valve. Mild tricuspid valve insufficiency. Pulmonary artery systolic pressure is 34 mmHg. Pulmonic Valve Normal pulmonic valve. Great Vessels Normal aortic root. The pulmonary artery is normal size. Normal inferior vena cava. Pericardium/Pleural No pericardial effusion. MMode/2D Measurements & Calculations LVIDd: 5.1 cm IVSd: 1.0 cm Ao root diam: 3.5 cm LVIDs: 3.5 cm LVPWd: 1.0 cm RVDd: 3.0 cm FS: 31.0 % LAV(MOD-bp): 63.9 ml LVAd ap4: 27.1 cm2 LVAd ap2: 21.3 cm2 LAV(MOD-bp) Indexed: 38.4 ml/m2 LVLd ap4: 7.3 cm LVLd ap2: 7.1 cm LAV(MOD-sp2): 61.5 ml EDV(MOD-sp4): 81.3 ml EDV(MOD-sp2): 54.7 ml LAV(MOD-sp4): 61.5 ml EDV(sp4-el): 84.9 ml EDV(sp2-el): 54.4 ml LVAs ap4: 17.2 cm2 LVAs ap2: 11.6 cm2 LVLs ap4: 6.5 cm LVLs ap2: 5.6 cm ESV(MOD-sp4): 39.1 ml ESV(MOD-sp2): 20.3 ml ESV(sp4-el): 38.6 ml ESV(sp2-el): 20.4 ml EF(MOD-sp4): 51.9 % EF(MOD-sp2): 62.9 % EF(sp4-el): 54.6 % SV(MOD-sp4): 42.2 ml SV(MOD-sp2): 34.4 ml SV(sp4-el): 46.4 ml SI(MOD-sp4): 25.4 ml/m2 SI(MOD-sp2): 20.7 ml/m2 LA dimension(2D): 3.7 cm TAPSE: 3.0 cm LA A4 area: 20.1 cm2 Time Measurements MV dec time: 0.18 sec Doppler Measurements & Calculations MV E max dennis: 53.4 cm/sec Lat Peak E' Dennis: 4.3 cm/sec Med Peak E' Dennis: 5.9 cm/sec MV A max dennis: 92.2 cm/sec E/E' lat: 12.5 E/E' med: 9.1 MV E/A: 0.58 MV V2 max: 136.5 cm/sec MV P1/2t max dennis: 71.2 cm/sec Ao V2 max: 120.7 cm/sec MV max P.5 mmHg MV P1/2t: 45.4 msec Ao max P.8 mmHg MV V2 mean: 70.8 cm/sec Ao V2 mean: 81.1 cm/sec MV mean P.4 mmHg MV dec slope: 459.4 cm/sec2 Ao mean P.9 mmHg MV V2 VTI: 20.2 cm MVA(P1/2t): 4.8 cm2 Ao V2 VTI: 23.0 cm AV (velocity ratio): 0.73 LV V1 max: 78.9 cm/sec PA V2 max: 112.4 cm/sec TR max dennis: 277.1 cm/sec LV V1 max P.5 mmHg PA V2 mean: 75.1 cm/sec TR max P.7 mmHg LV V1 mean P.4 mmHg LV V1 mean: 55.4 cm/sec LV V1 VTI: 16.9 cm ECHO/Echo Complete Interpretation Summary Normal LV size. Left ventricular systolic function is normal. The left ventricular ejection fraction is 60 %. Bileaflet diffuse mitral valve thickening. Mild mitral valve prolapse. Mild (1+) eccentric mitral valve insufficiency. Pulmonary artery systolic pressure is 34 mmHg. Ordering Physician: Riley Mckeon Referring Physician: Paola Corona Performed By: Angelica James, JOHANNA, RVT
--- NOTE | 2025-02-07 07:45 | STRESSREP ---
Stress Test Report Pharmacologic myocardial perfusion stress test. 84-year-old lady with a history of cardiac dysrhythmia Resting EKG demonstrates sinus rhythm with a left bundle branch block with a rate of 76 bpm. Resting blood pressure is 132/84 mmHg. 0.4 mg of regadenoson was infused per usual protocol followed by rapid intravenous saline flush injection. Continuous EKG monitoring was performed. The maximum heart rate was 96 bpm which was 70% of max impacted heart rate the maximum workload was 1 metabolic equivalent. At rest there were no ST or T wave changes noted to suggest ischemia and at peak infusion nonspecific ST changes were noted which did not meet the criteria for ischemia. No clinical angina is noted. The final blood pressure was 148/70 mmHg. Myocardial perfusion protocol. 12 mCi of technetium 99m sestamibi was injected at rest. 0.4 mg of regadenoson was infused per usual protocol. At peak infusion 36.7 mCi of technetium 99m sestamibi was injected stress images were obtained stress and rest images were reconstructed and compared in the short axis vertical long and horizontal long axis. Gated images were also obtained. Perfusion SPECT analysis: Review of the stress images demonstrate normal uptake of tracer noted in all areas of the myocardium. There is a small area in the anteroseptal region with mildly reduced perfusion. The rest images demonstrate a similar pattern. The above may be secondary to the left bundle branch block pattern. No obvious reversibility is noted to suggest ischemia. Gated SPECT analysis: The gated ejection fraction is 59%. Conclusion: Probably normal pharmacologic myocardial perfusion stress test. Preserved ejection fraction.
== END | disposition home or self-care (01) ==
PROVIDERS: PCP Family Medicine; Referring Provider Internal Medicine Cardiovascular Disease; Visit Provider Internal Medicine Cardiovascular Disease
DX: I47.10 Supraventricular tachycardia, unspecified (principal); R94.31 Abnormal electrocardiogram [ECG] [EKG]
CPT/HCPCS: 78452; 93017; 93306; A9500; A4216; J2785

== ENCOUNTER → 2025-02-27 | Outpatient (CLI) | payer MEDICARE, BC, SELFPAY ==
[2025-02-27 16:22] LABS: Hemoglobin A1c 5.6 % (<=5.6)
[2025-02-27 18:09] LABS: Thyroid Stim Hormone (TSH) 0.144 uIU/mL (0.300-4.200)
== END | disposition home or self-care (01) ==
LOC: MFPLAB 13:58
PROVIDERS: PCP Nurse Practitioner Family; Referring Provider Nurse Practitioner Family; Visit Provider Nurse Practitioner Family
DX: E03.9 Hypothyroidism, unspecified (principal); R73.03 Prediabetes
CPT/HCPCS: 36415; 83036; 84443

== ENCOUNTER → 2025-04-17 | Outpatient (CLI) | payer MEDICARE, BC, SELFPAY | END | disposition home or self-care (01) | LOC: CT 12:36 | PROVIDERS: PCP Nurse Practitioner Family; Referring Provider Internal Medicine Medical Oncology; Visit Provider Internal Medicine Medical Oncology | DX: R97.8 Other abnormal tumor markers (principal); Z85.42 Personal history of malignant neoplasm of other parts of uterus | CPT/HCPCS: 71260; 74177; Q9967 ==

== ENCOUNTER → 2025-05-10 | Outpatient (CLI) | payer MEDICARE, BC, SELFPAY ==
[2025-05-10] VITALS (18 sets, daily range): BP systolic 123–171; BP diastolic 63–101; PULSE 72–112; RESP 15–23; TEMP 37; O2SAT 94–100; BMI 20.5
--- NOTE | 2025-05-10 | LUNG_PTH ---
PATIENT: LAI CLANCY LOC: ME U#:[id number] AGE/SX: 85/F ROOM: RE05/10/[address]: Dr. Carlos Bernal MD : 1940 BED: DIS: 05/10/2025 SPEC #: [id number] RECD: 05/10/25 11:21 STATUS: RONIT RECharles #: [id number] ZACH: 05/10/25 00:[address]: Carlos Bernal DEPT: SURGICAL PATHOLOGY RECD BY: Ken Leblanc ENTERED: 05/10/25 11:21 SP TYPE: LUNG BX OTHR DR: MD Lela Cooper, SENIOR C SOFTWARE ENGINEER-C Tissues: A - Lung, NOS Procedures: Immunohistochemical Stains Surgery Specimen Level IV IHC Stain ADDITIONAL HEADER OPERATION: CT guided lung biopsy PRE-OP DIAGNOSIS: Left lung mass TISSUE SUBMITTED: A- Left lung biopsy - 20 gauge x 4 cores MICROSCOPIC DIAGNOSIS A. Lung, left, CT-guided core biopsy: - Adenocarcinoma consistent with metastasis - see note. Note: IHC was performed to characterize the malignant cells as follows - Positive for pancytokeratin, CK7, TTF-1 (patchy), ER, Vimentin, CD10, NEREYDA-3 (patchy) and PAX8. Ki67 is high. Negative for CK20, Napsin A, CK5/6, p40, CDX2. These findings are compatible with the patient's history of primary endometrial adenocarcinoma. No pathology is available for review/correlation. MICROSCOPIC DESCRIPTION Slides are reviewed. All matched controls reacted appropriately. These tests were developed and their performance characteristics determined by [facility]. They may not have been cleared or approved by the U.[place]. Food and Drug Administration. The FDA has determined that such clearance or approval is not necessary.? The above immunohistochemical/dualISH?markers are reviewed by the Pathologist. GROSS DESCRIPTION A. Received in formalin labeled with the patient's name and date of . Designated as L lung is a 0.7 x 0.5 x <0.1 cm aggregate of reed fragmented tissue cores. Entirely submitted in 2 cassettes. MD 05/10/2025 CPT:[id number] ADDENDUM ADDENDUM ADDENDUM ADDENDUM ADDENDUM ADDENDUM ADDENDUM ADDENDUM ADDENDUM ADDENDUM ADDENDUM ADDENDUM ADDENDUM ADDENDUM ADDENDUM ADDENDUM ADDENDUM ADDENDUM ADDENDUM ADDENDUM ADDENDUM ADDENDUM ADDENDUM ADDENDUM ADDENDUM ADDENDUM ADDENDUM ADDENDUM ADDENDUM ADDENDUM ADDENDUM ADDENDUM ADDENDUM ADDENDUM 06/01/2025 10:05 ADDENDUM 06/01/2025 10:05 ADDENDUM 06/01/2025 10:05 ADDENDUM 06/01/2025 10:05 ADDENDUM 06/01/2025 10:05 This addendum is added to incorporate an outside pathology consultation report. The case was examined at [facility] by Dr. Whitley (#[id number]) and the following diagnosis was rendered. A. Lung, left, CT-guided lung biopsy: PDS-L1 IHC 22C3 pharmDx expression level : Positive for PD-L1 expression (CPS>1) Combined Positive Score: 8 HER2 IHC Result: Negative (Score 1+) Mismatch Repair Protein (MMR) Nuclear Expression by IHC: MLH1: Present/Intact PMS2: Present/Intact MSH2: Present/Intact MSH6: Present/Intact Solid Tumor Mutation Panel and NTRK Fusion Panel: NTRK Fusion Result: Not detected NTRK Fusion Interpretation: No FGFR2, NTRK1, NTRK2, NTRK3, FGFR2, or other reportable gene fusions identified by RNA fusion panel (see comment). COMMENT: Given the NTRK negative result, analysis was performed for 227 additional genes recurrently associated with gene fusions in solid tumors. Sample and run controls are adequate. 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 No FGFR2, FGFR3 or other mutations noted. Please see complete above mentioned consultation reports in EMR
--- NOTE | 2025-05-10 07:49 | CT_ITS ---
EXAM: CT-guided left lower lobe mass core biopsy CLINICAL HISTORY: Large left lower lobe pulmonary mass, hypermetabolic on PET-CT. COMPARISON: PET-CT of 05/02/2025. TECHNIQUE: Conscious sedation was employed for this procedure, involving intravenous administration of both 2 mg Versed and 50 mcg fentanyl. Start time was 0920 hours and stop time 0953 hours. Following informed consent, and using standard sterile technique, a left lower lobe CT-guided core biopsy most performed. 2% lidocaine local anesthesia was followed by placement of a 15 cm 20 gauge [employer] core biopsy system. 5 samples were then obtained. No complication was encountered, in the patient left the department in good condition. CT/Biopsy/Inj or Needle Placement IMPRESSION: Successful core biopsy of left lower lobe pulmonary mass. Pathology results pe nding. Reading Location: [place] [id number]
[2025-05-10 07:52] LABS: Hematocrit 34.7 % (37-47); Hemoglobin 11.0 g/dL (12.0-15.0); Immature Granulocytes Count 0.030 X10^3/uL (0.0-0.0); Mean Corp Hgb Conc 31.7 g/dL (32-36); Mean Corpuscular Volume 87.8 fL (81-99); Mean Platelet Vol. 10.7 fl (6.2-12.0); NRBC Flagged by Analyzer 0 % (0-5); Platelet Count 347 K/mm3 (150-450); RBC Distribution Width CV 13.2 % (11.6-14.6); RBC Distribution Width SD 42.8 fl (35.1-43.9); Red Blood Count 3.95 M/mm3 (4.2-5.4); White Blood Count 6.1 K/mm3 (4.4-11.0)
--- OUTSIDE RECORDS SUMMARY | 2025-05-10 07:59 | XMS RPT_ITS | CCD ---
Author Organization [facility] CliniSymt Care Team Providers Care Exhaust Emissions Automotive Technician Name Role Phone Carlos Bernal MD Unavailable Dr. Paola Corona Primary Care Provider Dr. Paola Corona Referring Provider Dr. Carlos Bernal Attending Provider Dr. Paola Corona Primary Care Provider Dr. Paola Corona Referring Provider Dr. Carlos Bernal Attending Provider Dr. Paola Corona Primary Care Provider Dr. Paola Corona Referring Provider MARLY Eubanks Attending Provider MARILEE Peacock Attending Provider Dr. Paola Corona MD Primary Care Provider Dr. Paola Corona MD Referring Provider Eagle Eubanks Attending Provider Dr. Paola Corona MD Attending Provider Dr. Paola Corona MD Primary Care Provider Dr. Paola Corona MD Attending Provider Dr. Paola Corona MD Referring Provider Dr. Riley Mckeon MD Attending Provider Dr. Riley Mckeon MD Referring Provider Dr. Riley Mckeon MD Other Provider Jaydon STAPLE SHEAR OPERATOR-C, Lela Primary Care Provider Jaydon STAPLE SHEAR OPERATOR-C, Lela Attending Provider Jaydon STAPLE SHEAR OPERATOR-C, Lela Referring Provider Dolores SANTIAGO, Dr. Gonzalez Attending Provider Chloe SANTIAGO, Dr. Paola Lebron Primary Care Provider Chloe SANTIAGO, Dr. Paola Lebron Referring Provider Dolores SANTIAGO, Dr. Gonzalez Referring Provider Jolliff, Paola S Primary Care Unavailable Jolliff, Paola S Referring Unavailable Jolliff, Paola S Attending Unavailable Jolliff, Paola S Primary Care Unavailable Jolliff, Paola S Referring Unavailable Jolliff, Paola S Attending Unavailable Mike, [place] Referring Unavailable Mike, Riley Attending Unavailable Jolliff, Paola S Primary Care Unavailable Jaydon, Lela Referring Unavailable Jaydon, Lela Attending Unavailable Jaydon, Lela Primary Care Unavailable PrahCarlos Attending Unavailable Jaydon, Lela Referring Unavailable Jaydon, Lela Primary Care Unavailable Mike, Riley Attending Unavailable Jolliff, Paola S Primary Care Unavailable Mike, Riley Referring Unavailable Mike, Riley Attending Unavailable Mike, Riley Consulting Unavailable Jolliff, Paola S Primary Care Unavailable Prah, Carlos Attending Unavailable Jaydon, Lela Primary Care Unavailable Jaydon, Lela Referring Unavailable Eagle Eubanks Attending Unavailable Jolliff, Paola S Primary Care Unavailable Jolliff, Paola S Referring Unavailable Mike, [place] Attending Unavailable Jolliff, Paola S Primary Care Unavailable Jolliff, Paola S Referring Unavailable Prah, Carlos Attending Unavailable Jaydon, Lela Primary Care Unavailable PrahCarlos Referring Unavailable Jolliff, Paola S Referring Unavailable Jolliff, Paola S Attending Unavailable Jolliff, Paola S Primary Care Unavailable Prah, Carlos Attending Unavailable Jaydon, Lela Primary Care Unavailable PrahCarlos Referring Unavailable Prah, Carlos Attending Unavailable Jolliff, Paola S Primary Care Unavailable Jolliff, Paola S Referring Unavailable Jolliff, Paola S Primary Care Unavailable Jolliff, Paola S Referring Unavailable Jolliff, Paola S Attending Unavailable Allergies Allergy Classification Reported Allergen(s) Allergy Type Date of Onset Reaction(s) Facility (14 sources) doxycycline; Translations: [doxycycline] drug allergy 2 Nausea [facility] Work Phone: (1 source) erythromycin drug allergy [facility] Work Phone: (12 sources) Erythromycin Drug Allergy 2 Nausea [facility] (13 sources) Penicillins; Translations: [Penicillins] Propensity to adverse reactions 2 Hives [facility] (3 sources) Clindamycin Drug Allergy 5 Thrush [facility] (1 source) Clindamycin Drug Allergy 5 [facility] Repository (1 source) Erythromycin Drug Allergy 5 [facility] Rep[facility] Medications Current Medications Medication Drug Class(es) Dates Sig (Normalized) Sig (Original) calcium carbonate / vitamin D (9 sources) Start: 08-01-2013 take 1 tablet by mouth once daily Calcium Carbonate/Vitamin D Active 1 TABLET PO DAILY August 01, 2013 4:35pm Start: 08-01-2013 take 1 tablet by myles th once daily Calcium Carbonate/Vitamin D Active 1 TABLET PO DAILY August 01, 2013 12:00am take 1 tablet by myles th three times daily CALCIUM 500 + D 500-125 MG-UNIT TABS One tablet by mouth three times daily CALCIUM CARBONATE-VITAMIN D [id number] Selina Lealpie JAMES Calcium Carbonate/Vitamin D tablet (4 sources) Start: 08-01-2013 Calcium Carbonate/Vitamin D tablet Active 1 {tbl} PO DAILY August 01, 2013 12:00am famotidine 20 mg oral tablet (4 sources) Histamine-2 Receptor Antagonist Start: 12-01-2024 take 1 tablet by mouth once daily Famotidine (Zantac-360 (Famotidine)) 20 mg tablet Active 20 mg PO daily December 01, 2024 1:00am Lactobacillus Combination No.9 (Adult 50 Plus Probiotic) 4 billion cell capsule (6 sources) Start: 03-23-2023 take 4 capsules by mouth once daily Lactobacillus Combination No.9 (Adult 50 Plus Probiotic) 4 billion cell capsule Active 4000 NMA PO DAILY March 23, 2023 12:00am administer with a meal Start: 03-23-2023 take 4 capsules by m outh once daily Lactobacillus Combination No.9 (Adult 50 Plus Probiotic) 4 billion cell capsule Active 4000 MMU CELLS PO DAILY March 23, 2023 12:00am administer with a meal levothyroxine sodium 0.075 mg oral tablet (6 sources) l-Thyroxine Start: 04-12-2025 Levothyroxine 75 mcg tablet Active 50 ug PO daily April 12, 2025 3:02pm Start: 01-11-2025 End: 04-12-2025 take 1 tablet by mouth once daily Levothyroxine 75 mcg tablet Discontinued 75 ug PO daily January 11, 2025 12:00am April 12, 2025 3:02pm 24 hr metoprolol succinate 50 mg extended release oral tablet (3 sources) beta-Adrenergic Pinky Start: 01-11-2025 take 1 tablet by mouth once daily Metoprolol Succinate (Toprol Xl) 50 mg tablet extended release 24 hr Active 50 mg PO daily 90 3 January 11, 2025 12:00am Multivitamins,The rapeutic (8 sources) Start: 08-01-2013 take 1 tablet by mouth once daily Multivitamins,Th erapeutic Active 1 TABLET PO DAILY August 01, 2013 4:33pm Start: 08-01-2013 take 1 tablet by myles th once daily Multivitamins,Therapeutic Active 1 TABLE T PO DAILY August 01, 2013 12:00am Multivitamins,Therapeutic ta blet (4 sources) Start: 08-01-2013 Multivitamins, Therapeutic tablet Active 1 {tbl} PO DAILY August 01, 2013 12:00am Completed/Discontinued Medications Medication Drug Class(es) Dates Sig (Normalized) Sig (Original) calcium carbonate 500 mg chewing gum (1 source) TUMS 500 MG CHEW Use as directed as needed CALCIUM CARBONATE ANTACID [id number] Selina Ainsley RAMIREZ cephalexin 500 mg oral capsule (5 sources) Cephalosporin Antibacterial Start: 12-10-2023 End: 12-20-2023 take 1 capsule by mouth every twelve hours Cephalexin 500 mg capsule Discontinued 500 mg PO Q12H 20 10 0 December 10, 2023 1:00am December 19, 2023 1:00am December 20, 2023 1:04am clindamycin 300 mg oral capsule (5 sources) Lincosamide Antibacterial Start: 02-08-2024 End: 04-05-2024 take 1 capsule by mouth three times daily Clindamycin Hcl 300 mg capsule Discontinued 300 mg PO THREE TIMES A DAY 15 February 08, 2024 12:00am April 05, 2024 2:55pm MULTIPLE VITAMIN (1 source) take 1 tablet by mouth once daily MULTIVITAMINS TABS One tablet by mouth daily MULTIPLE VITAMIN [id number] Selina Ainsley RAMIREZ Nystatin 100,000 unit/mL suspension (4 sources) Start: 02-24-2024 End: 03-23-2024 take 1 dose by mouth four times daily Nystatin 100,000 unit/mL suspension Discontinued 4 mL PO .qid 473 28 February 24, 2024 12:00am March 22, 2024 12:00am March 23, 2024 12:05am swish and swallow, and no food or drink for 30 minutes after each dose Start: 02-24-2024 End: 03-23-2024 take 1 dose by mouth four times daily Nystatin 100,000 unit/mL suspension Discontinued 4 mL PO .qid 473 28 February 24, 2024 12:00am March 22, 2024 12:00am March 23, 2024 12:05am swish and swallow, and no food or drink for 30 minutes after each dose omeprazole 20 mg delayed release oral capsule (12 sources) Proton Pump Inhibitor Start: 02-16-2022 End: 03-23-2023 take 1 capsule by mouth once daily Omeprazole 20 mg capsule,delayed release(DR/EC) Discontinued 20 mg PO DAILY February 16, 2022 12:00am March 23, 2023 1:27pm ondansetron 4 mg disintegrating oral tablet (10 sources) Serotonin-3 Receptor Antagonist Start: 06-05-2022 End: 03-23-2023 take 1 tablet by mouth every eight hours as needed for nausea and vomiting Ondansetron 4 mg tablet,disintegratin g Discontinued 4 mg PO Q8H as needed for nausea and vomiting 14 June 05, 2022 12:00am March 23, 2023 1:27pm promethazine hydrochloride 25 mg oral tablet (2 sources) Phenothiazine End: 04-04-2013 take 1 tablet by mouth every six hours as needed for nausea PROMETHAZINE HCL 25 MG TABS One tablet by mouth every 6 hours as needed for nausea PROMETHAZINE HCL [id number] Selina Ainsley RAMIREZ psyllium 3400 mg powder for oral suspension (13 sources) Start: 08-02-2013 End: 12-01-2024 take 1 dose by mouth once daily Psyllium Husk (Metamucil) 1 PACKET packet Discontinued 1 NMA PO DAILY August 02, 2013 12:00am December 01, 2024 10:02am Start: 08-02-2013 take 1 dose by mouth once althea y Psyllium Husk (Aspartame) (Metamucil) 1 PACKET packet Active 1 PACKET PO DAILY August 02, 2013 12:00am METAMUCIL 28.3 % POWD 1 1/2 tsp with water once daily PSYLLIUM [id number] Selina Ainsley RAMIREZ vitamin b6 100 mg oral table t (14 sources) Start: 08-02-2013 End: 02-18-2017 Pyridoxine Hcl (Vitamin B-6) 100 MG tablet Discontinued 50 mg PO TWICE A DAY August 02, 2013 12:00am February 18, 2017 1:35pm End: 11-21-2014 take 1 tablet by mouth twice daily VITAMIN B-6 50 MG TABS One tablet by mouth twice daily PYRIDOXINE HCL [id number] Selina Ainsley RAMIREZ Problems Active Problems Problem Classification Problem Date Documented Date Episodic/Chronic Abdominal pain (12 sources) Right upper quadrant pain; Translations: [Right upper quadrant pain] 05-02-2021 Episodic Comment on above: Patient has describe d this pain as more discomfort and has minimal tenderness on exam Cancer of uterus (20 sources) Adenocarcinoma of endometrium; Translations: [Malignant neoplasm of uterus] Onset: 11-09-2012 03-24-2013 Chronic Comment on above: CA125 is 30 on 2023. CA125 was 83.5 on 08/2025. CA125 was 83.5 on 08/2025.CT shows L lung mass. Cancer of uterus (20 sources) History of malignant neoplasm of endometrium; Translations: [Personal history of malignant neoplasm of other parts of uterus] Onset: 04-12-2025 Episodic Comment on above: No evidence of disea se clinically. CA125 is high, need to R/O metastatic disease. CA125 is high.CT on 04/17/2025 shows Lung mass Cardiac dysrhythmias (9 sources) Tachycardia; Translations: [Tachycardia, unspecified] Onset: 01-11-2025 12-01-2024 Episodic Diverticulosis and diverticulitis (12 sources) Diverticular disease; Translations: [Diverticulosis of intestine, part unspecified, without perforation or abscess without bleeding] 05-02-2021 Chronic E Codes: Fall (16 sources) Fall; Translations: [Unspecified fall, initial encounter] 02-24-2022 Episodic Esophageal disorders (4 sources) Gastric reflux; Translations: [Gastro-esophageal reflux disease without esophagitis] 12-01-2024 Chronic Essential hypertension (5 sources) Hypertensive disorder; Translations: [Essential (primary) hypertension] Onset: 01-11-2025 02-24-2024 Chronic Genitourinary symptoms and ill-defined conditions (6 sources) Increased frequency of urination; Translations: [Frequency of micturition] 02-04-2024 Episodic Influenza (5 sources) Influenza due to Influenza A virus; Translations: [Influenza due to other identified influenza virus with other respiratory manifestations] 12-10-2023 Episodic Malignant neoplasm without specification of site (4 sources) Malignant neoplastic disease; Translations: [Malignant (primary) neoplasm, unspecified] 12-01-2024 Chronic Comment on above: Uterine CA 2013 chem o and radiation complete Mycoses (4 sources) Candidiasis of mouth; Translations: [Candidal stomatitis] 12-01-2024 Episodic Other injuries and conditions due to external causes (3 sources) Other specified injuries of thorax, initial encounter; Translations: [Contusion of rib on right side] 02-24-2022 Episodic Other lower respiratory disease (3 sources) Lung mass; Translations: [Other nonspecific abnormal finding of lung field] 03-24-2013 Episodic Other lower respiratory disease (15 sources) Multiple nodules of lung; Translations: [Other nonspecific abnormal finding of lung field] 03-21-2021 Episodic Comment on above: Stable. Other lower respiratory disease (7 sources) Other nonspecific abnormal finding of lung field; Translations: [Other nonspecific abnormal finding of lung field] Onset: 04-12-2025 Episodic Other lower respiratory disease (6 sources) Cough; Translations: [Cough] 12-26-2023 Episodic Other lower respiratory disease (6 sources) Nodule of lung; Translations: [Solitary pulmonary nodule] 12-01-2024 Episodic Comment on above: right upper lobe Other screening for suspected conditions (not mental disorders or infectious disease) (2 sources) Other abnormal tumor markers; Translations: [Abnormal electrocardiogram [ECG] [EKG]] Onset: 02-14-2025 Episodic Other upper respiratory infections (12 sources) Posterior rhinorrhea; Translations: [Postnasal drip] 12-26-2023 Episodic Sprains and strains (9 sources) Strain of muscle at thorax level; Translations: [Strain of muscle and tendon of unspecified wall of thorax, initial encounter] 12-01-2024 Episodic Superficial injury; contusion (20 sources) Contusion of rib; Translations: [Contusion of right front wall of thorax, initial encounter] 02-24-2022 Episodic Thyroid disorders (1 source) Hypothyroidism, unspecified; Translations: [Hypothyroidism, unspecified] Onset: 03-03-2025 Chronic Unclassified (14 sources) Family history of cancer of colon; Translations: [Family history of malignant neoplasm of breast] 11-21-2014 Episodic Unclassified (1 source) Supraventricular tachycardia, unspecified; Translations: [Supraventricular tachycardia, unspecified] Onset: 02-14-2025 Past or Other Problems Problem Classification Problem Date Documented Date Episodic/Chronic Nausea and vomiting (13 sources) Nausea; Translations: [Nausea] Onset: 06-14-2024 07-16-2022 Episodic Comment on above: Is an 82-year-old fe male who is known to me for a presentation of similar complaint with nausea, but associated abdominal pain. Patient states that her most recent episode was not associated with abdominal pain and seems temporally related to the initiation of antibiotics for urinary tract infection at the end of April. She does report significant improvement in her symptoms between her former presentation and this most recent presentation when she was on omeprazole. Given her rather nonspecific reports and lack of associated symptoms, it is difficult to narrow a differential with respect to her complaint. This would seem unlikely to be related to a gallbladder source with a normal HIDA and unlikely to be related to an H. pylori infection with 2 negative prior biopsies. It is curious that her symptoms started after completing a course of antibiotics and seem to be better after introducing yogurt into her diet. On noting this observation, I question whether she may benefit from a trial of probiotics to reestablish her gut microflora. It would seem a little bit atypical that this would be an isolated presentation of altered gut microflora as patient is denying any change to her bowel habits. Additionally she did have biopsy-proven gastritis changes a year ago. Therefore, I have recommended she trial a probiotic for 2 to 4 weeks and assess how her symptoms respond to this change. If her symptoms are not further improved or worsen, then I would suggest we consider transition to another proton pump inhibitor. She expresses understanding of this rationale and a willingness to try the probiotic as recommended. She confirms that she will let me know if her symptoms do persist. Results Test Name Value Interpretation Reference Range Facility PET/CT Tumor Base -Thigh Ini ton 05-02-2025 PET/CT Tumor Base -Thigh Init [facility] Imaging Services [address] [place], [place] [address] PET/CT Tumor Base -Thigh Init MR#: [id number] Acct: [id number] Name: LUZ CLANCY Rep #: [id number] : 1940 F 85 From: Maria A Clay nd, MD PCP: Dr. Paola Corona MD Status: REG RCR Study: PET/CT Tumor Base -Thigh Init Date of Exam: Exam# [id number] Ordering Dr: Carlos Bernal MD EXAM: PET/CT Study CLINICAL HISTORY: 85 y/o F with ABNORMAL FINDINGS IN LUNG FIELD. History of uterine cancer. COMPARISON: CT chest, abdomen and pelvis 04/17/2025. TECHNIQUE: PROCEDURE: Following the intravenous administration of radionucleotide, image acquisition on a dedicated PET/CT unit was performed at one hour post injection. A preliminary CT study encompassing the Skull base, neck, chest, abdomen, pelvis, and proximal thighs was performed for purposes of attenuation correction and anatomic localization. The patient's blood glucose level was 110 mg/dL (allowable range: 50-180 mg/dL). RADIOPHARMACEUTICAL: 14.3 mCi 18F-FDG (Fluorodeoxyglucose F18) IV was injected into the patient. FINDINGS: Physiologic uptake: There may be expected metabolic uptake within the brain, tongue and floor of the mouth and larynx/vocal cords, heart, yair (many normal individuals have hilar uptake in less than 3 nodes with mildly avid hilar nodes less than 2.7 SUV), liver and spleen, system, and GI tract and symmetric muscle uptake. FDG AVID AND NON-AVID LESIONS. Reported avid SUV values (g/mL*) are maximum SUV. Average hepatic SUV: 3.0 NECK: Hypermetabolic left level IIa node, with a maximum SUV of 4.6. CHEST: Marked hypermetabolic activity within the large left lower lobe pulmonary mass, demonstrating a maximum SUV of 20.8. Hypermetabolic right hilar lymph node. Small, hypermetabolic left lower lobe pulmonary nodule. Additional bilateral solid and part solid part ground-glass pulmonary nodules, which are too small for accurate PET-CT characterization. ABDOMEN: No suspicious hypermetabolic lesion. PELVIS: No suspicious hypermetabolic lesion. Additional CT findings: Mild cardiomegaly. Severe mitral annular calcifications. Distal colonic diverticulosis. Calcific plaque of the aortoiliac vessels. Prior hysterectomy. Cervical and thoracolumbar spondylosis. PET/PET/CT Tumor Base -Thigh Init IMPRESSION: 1. Large left lower lobe pulmonary mass, with marked hypermetabolic activity, compatible with pulmonary neoplasm. 2. Additional hypermetabolic right hilar node and left cervical chain node, compatible with raquel metastatic disease. 3. Additional bilateral pulmonary nodules, some of which demonstrate hypermetabolic activity, which likely represent additional sites of disease. Please note the low-dose CT scan was performed to facilitate PET image reconstruction and anatomic localization and does not replace a diagnostic CT. Any diagnostic CT requested and performed at the time of the PET will be reported separately. Reading Location: [id number] CC: Dr. Paola Corona MD; Dr. Carlos Bernal MD Saw Superintendent: Signed Normal [facility] Oncology Visit Reporton 04-11 Oncology Visit Report [facility] [address] [place], [place] [address] [place] [address] OFFICE VISIT Date of Service: 04/24/25 1552 MR#: [id number] Acct: [id number] Name: LUZ CLANCY Rep #: [id number] : 1940 From: Carlos Bernal MD Age/Sex: 85/F Location: [facility] Status: Signed HPI Subjective Date of Service 04/24/25 Chief Complaint F/u for endometrial cancer. 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 She had surgery on 11/09/2012. She received 3 cycles of Taxol/Carboplatin followed by XRT and then another 3 cycles of Taxol/Carboplatin, completed therapy on 08/22/2013. She was found to have lung nodules, one in RUL increased in size to 9mm on 08/17/2017 so was referred for CT guided bx but could not be done. She was monitored with CT and the nodules remained stable. Found to have increased Ca125, had CT done, comes for follow up. Denies fever, weight loss, night sweats. PFSH Medical History Tachycardia Diverticulosis Uncontrolled hypertension Cancer Gastric reflux Pulmonary nodule Surgical History History of tubal ligation History of hysterectomy Family History Mother Colon cancer Breast cancer Daughter Thyroid disorder Social History Smoking Status: Never smoker alcohol intake: never Intake Vital Signs 04/12/25 14:56 04/24/25 15:53 Height 5 ft 5 in 5 ft 5 in Weight: 57.294 kg BMI 20.9 BP 180/81 H Blood Pressure Location Lt brachial Position Sitting Respiration 18 Pulse 75 Pulse Source Monitor Temp 98.8 F Temperature Source Temporal Artery Pulse Oximetry (%) 98 Oxygen Delivery Method room air Intake Is patient in pain?: No Allergies doxycycline Adverse Reaction (Severe, Verified 04/24/25 15:58) Nausea erythromycin base (Erythromycin Base) Adverse Reaction (Severe, Verified 04/24/25 15:58) Nausea clindamycin Adverse Reaction (Intermediate, Verified 04/24/25 15:58) Thrush Penicillins Adverse Reaction (Intermediate, Verified 04/24/25 15:58) Hives Medications ???Medication ???Instructions ???Recorded ???Confirmed ???Type Calcium Carbonate/Vitamin D 1 tab PO DAILY 08/01/13 04/24/25 H istory Multivitamins,Therapeutic 1 tab PO DAILY 08/01/13 04/24/25 H istory lactobacillus combination no.9 4 4,000 mmu cells PO DAILY 03/23/23 04/24/25 History billion cell capsule (Adult 50 Plus Probiotic) famotidine 20 mg tablet 20 mg PO QDAY 12/01/24 04/24/25 Hi story (Zantac-360 (famotidine)) metoprolol succinate 50 mg 50 mg PO QDAY #90 tabs 01/11/25 Rx tablet,extended release 24 hr (Toprol XL) levothyroxine 75 mcg tablet 50 mcg PO QDAY 04/12/25 04/24/25 H istory Have you fallen in the past year?: No 04/17/2025 CT c/a/p reviewed. CT/CT Chest, Abd, Pel w/Contrast IMPRESSION: 1. Large left hilar mass as described. This could be primary or metastatic disease. 2. Left hilar lymphadenopathy. 3. Other findings as noted. Exam Physical Exam Const alert, oriented x3 and no apparent distress Coding Level of Care Code Off vis,est,level 4 Exam Problem Focused Diagnoses Malignant neoplasm of uterus, unspecified site C55 Malignant neoplasm of uterus location: unspecified site of uterus History of endometrial cancer Z85.42 Lung mass R91.8 Assessment and Plan Assessment and Plan (1) Uterine cancer: Status: Chronic Qualifiers: Malignant neoplasm of uterus location: unspecified site of uterus Qualified Code(s): C55 - Malignant neoplasm of uterus, part unspecified Comment: CA125 was 83.5 on 03/22/2025. CT shows L lung mass. Plan: To obtain CT guided Lung biopsy for molecular markers,PD-L1. (2) History of endometrial cancer: Status: Chronic Comment: CA125 is high. CT on 04/17/2025 shows Lung mass Plan: To obtain L lung biiopsy. (3) Lung mass: Status: Acute Plan: To obtain PET/CT and CT guided biopsy of L lung mass. Plan Details Follow Up: 2 Weeks Clinical Quality Measures Falls Risk Screening/Assistive Devices Have you fallen in the past year?: No 04/24/25 1634 Date Carlos Bernal MD [facility] Signature: Date (if applicable) CC: STAPLE SHEAR OPERATOR-C Lela Interiano Normal [facility] CT Chest, Abd, Pel w/Contras ton 04-17-2025 CT Chest, Abd, Pel w/Contrast [facility] Imaging Services [address] [facility] [place], [place] [id number] CT Chest, Abd, Pel w/Contrast MR#: [id number] Acct: [id number] Name: LUZ CLANCY Rep #: [id number] : 1940 F 85 From: Erik Barba MD PCP: MARILEE Partida Status: REG CLI Study: CT Chest, Abd, Pel w/Contrast Date of Exam: Exam# [id number] Ordering Dr: Carlos Bernal MD PROCEDURE: CT CHEST, ABD, PEL W/CONTRAST 04/17/2025 REASON FOR EXAM: IV ONLY- HX OF ENDOMETRIAL CA/ELEVTED CANCER MARKE TECHNIQUE: Chest, abdomen and pelvis CT with intravenous contrast. Coronal and Sagittal reconstruction series were provided. One or more dose reduction techniques were used (e.g., Automated exposure control, adjustment of the mA and/or kV according to patient size, use of iterative reconstruction technique. PATIENT PREPARATION: Per protocol ORAL CONTRAST TYPE: None. CONTRAST: Isovue 300 VOLUME: 100 mL RADIATION DOSE SUMMARY: CTDlvol: 30.15 mGy DLP: 834.49 mGycm COMPARISON: None. FINDINGS: CT CHEST: Lower neck: The thyroid gland is normal. There is no supraclavicular lymphadenopathy. Mediastinum: There is a left hilar lymph node measuring 1.5 x 1.2 cm. Heart and Vasculature: The heart size is normal. There is no pericardial effusion. There is calcific vascular disease of the thoracic aorta and coronary arteries. Lungs, airways and pleura: There is a right hilar mass, measuring 7.0 x 4.2 x 3.9 cm extending into the mediastinum between the left mainstem bronchus in the aorta. The mass narrows the bronchus to the lower lobe of the left lung and abuts the left main pulmonary artery. The mass extends into both the superior segment of the lower lobe of the left lung in the posterior segment of the upper lobe of the left lung. There is a 8 x 7 mm soft tissue density nodule in the anterior medial basal segment of the lower lobe of the left lung. There is linear scarring in the posterior basilar segment of the lower lobe of both lungs and the middle lobe of the right lung. Chest wall: The soft tissues of the chest wall appear unremarkable. There is no axillary lymphadenopathy. 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 CT ABDOMEN/PELVIS: Liver: Normal. Gallbladder: Normal. Spleen: Normal. Pancreas: Normal. Adrenals: Normal. Kidneys: There are multiple small cortical cysts. Bladder: Normal unenhanced appearance. Reproductive Organs: The uterus is surgically absent. The ovaries are not identified. There is no free fluid in the pelvis. There is no inguinal lymphadenopathy. Bowel: There is moderate sigmoid diverticulosis without diverticulitis. Gastrointestinal tract is otherwise unremarkable. Appendix: Not identified. Lymph nodes: There is no mesenteric, retroperitoneal or pelvic lymphadenopathy. Vasculature: There is mild calcific vascular disease of the abdominal aorta. The inferior vena cava and portal venous system are normal. Peritoneum / Retroperitoneum: There are no abnormal intra or retroperitoneal masses or fluid collections. There is an umbilical hernia containing normal fat measuring 1.4 cm in diameter Bones: There is diffuse degenerative disc disease of the lumbar spine most severe at the L4-5 level. There is mild dextroscoliosis of the lumbar spine. CT/CT Chest, Abd, Pel w/Contrast IMPRESSION: 1. Large left hilar mass as described. This could be primary or metastatic disease. 2. Left hilar lymphadenopathy. 3. Other findings as noted. Reading Location: [id number] CC: MARILEE Interiano; Dr. Carlos Bernal MD Saw Superintendent: Signed Normal [facility] Cancer Antigen 125on 025 CA 125 121.0 U/mL High 0.0-38.1 [facility] Comment on above: Result Comment: [employer] Electrochemiluminescence Immunoassay (ECLIA) Values obtained with different assay methods or kits cannot be used interchangeably. Results cannot be interpreted as absolute evidence of the presence or absence of malignant disease. Performed at: [address] [id number] Can Tender: Guero Smyth PhD, Phone: [phone] Performed By: #### L 3100.5000 #### [facility] [address] [place], [address] Cancer antigen 125 (CA-125) measurementOrdered By: Carlos Bernal on 04-12-2025 Cancer antigen 125 (CA-125) measurement 121.0 U/mL High 0.0-38.1 [facility] Comment on above: [employer] El ectrochemiluminescence Immunoassay(ECLIA)Values obtained with different assay methods or kits cannotbe used interchangeably. Results cannot be interpreted asabsolute evidence of the presence or absence of malignantdisease.Performed at: [address] [id number] Director: Guero Smyth PhD, Phone: [phone] Oncology Visit Reporton Oncology Visit Report [facility] [address] [place] [address]. [place] [address] OFFICE VISIT Date of Service: 04/12/25 1455 MR#: [id number] Acct: [id number] Name: LUZ CLANCY Rep #: [id number] : 1940 From: Carlos Bernla MD Age/Sex: 85/F [place] [facility] Status: Signed HPI Subjective Date of Service 04/12/25 Chief Complaint F/u for endometrial cancer. 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 She had surgery on 11/09/2012. She received 3 cycles of Taxol/Carboplatin followed by XRT and then another 3 cycles of Taxol/Carboplatin, completed therapy on 08/22/2013. She was found to have lung nodules, one in RUL increased in size to 9mm on 08/17/2017 so was referred for CT guided bx but could not be done. She was monitored with CT and the nodules remained stable. She is on observation, comes in for f/u. [facility] Medical History Tachycardia Diverticulosis Uncontrolled hypertension Cancer Gastric reflux Pulmonary nodule Surgical History History of tubal ligation History of hysterectomy Family History Mother Colon cancer Breast cancer Daughter Thyroid disorder Social History Smoking Status: Never smoker alcohol intake: never Intake Vital Signs 01/11/25 13:26 04/12/25 14:56 Height 5 ft 5 in 5 ft 5 in Weight: 57.408 kg BMI 21.0 BP 171/99 H Blood Pressure Location Rt brachial Position Sitting Respiration 15 Pulse 81 Pulse Source Monitor Pulse Oximetry (%) 99 Oxygen Delivery Method room air Intake Is patient in pain?: No Allergies doxycycline Adverse Reaction (Severe, Verified 04/12/25 15:02) Nausea erythromycin base (Erythromycin Base) Adverse Reaction (Severe, Verified 04/12/25 15:02) Nausea clindamycin Adverse Reaction (Intermediate, Verified 04/12/25 15:02) Thrush Penicillins Adverse Reaction (Intermediate, Verified 04/12/25 15:02) Hives Medications ???Medication ???Instructions ???Recorded ???Confirmed ???Type Calcium Carbonate/Vitamin D 1 tab PO DAILY 08/01/13 04/12/25 H istory Multivitamins,Therapeutic 1 tab PO DAILY 08/01/13 04/12/25 H istory lactobacillus combination no.9 4 4,000 mmu cells PO DAILY 03/23/23 04/12/25 History billion cell capsule (Adult 50 Plus Probiotic) famotidine 20 mg tablet 20 mg PO QDAY 12/01/24 04/12/25 Hi story (Zantac-360 (famotidine)) metoprolol succinate 50 mg 50 mg PO QDAY #90 tabs 01/11/25 Rx tablet,extended release 24 hr (Toprol XL) levothyroxine 75 mcg tablet 50 mcg PO QDAY 04/12/25 04/12/25 H istory Have you fallen in the past year?: Yes Central Venous Access Central Venous Access: No Laboratory Tests 03/19/20 03/14/21 03/12/22 12:51 07:43 07:50 WBC 4.2 L 3.8 L Hgb 11.7 L 11.0 L Hct 33.8 L Plt Count 213 212 Sodium 140 Potassium 3.7 Chloride 108 H Carbon Dioxide 25.0 BUN 13 Creatinine 0.83 Glucose 116 H Calcium 9.5 Total Bilirubin 0.40 AST 23 ALT 31 Alkaline Phosphatase 84 Lactate Dehydrogenase 251 H Total Protein 7.2 Albumin 3.7 Globulin 3.5 CA 125 Antigen 11.1 12.2 13.5 03/16/23 03/29/24 03/22/25 09:34 13:56 13:51 WBC Hgb Hct Plt Count Sodium Potassium Chloride Carbon Dioxide BUN Creatinine Glucose Calcium Total Bilirubin AST ALT Alkaline Phosphatase Lactate Dehydrogenase Total Protein Albumin Globulin CA 125 Antigen 21.6 30.7 83.5 H Exam Physical Exam Const alert, oriented x3 and no apparent distress General Appearance: cooperative and comfortable HEENT normocephalic, external ears normal and external nose normal Eyes PERRL, conjunctivae normal and no scleral icterus Neck supple Lymph Lymphatic: no lymphadenopathy noted Chest inspection of chest normal Resp normal respiratory effort and clear to auscultation bilaterally Cardio regular rate, regular rhythm, S1 normal heart sound, S2 normal heart sound and no murmurs GI normal to inspection, nondistended, normoactive bowel sounds no CVA tenderness Back/Spine thoracic and lumbar spine normal to inspection Extremity normal to inspection and no clubbing, cyanosis or edema Skin no rashes or lesions noted Neuro oriented x3, CN's II-XII intact bilaterally, moves all extremities and no focal motor deficits Psych mental status grossly normal Coding Level of Care Code Off vis,est,level 4 Exam Problem Focused Diagnoses Malignant neoplasm of uterus, (more content not included)... Normal [facility] Cancer Antigen 125on 025 CA 125 83.5 U/mL High 0.0-38.1 [facility] Comment on above: Result Comment: [employer] Electrochemiluminescence Immunoassay (ECLIA) Values obtained with different assay methods or kits cannot be used interchangeably. Results cannot be interpreted as absolute evidence of the presence or absence of malignant disease. Performed at: - [facility] [id number] Can Tender: Guero Smyth PhD, Phone: [phone] Performed By: #### L 100.0100, L3100.5000, L504.2610, L500.4050 ####[facility] [address] [place], [place], [id number] Absolute lymphocyte countOrd ered By: [facility] on 03-22-2025 Lymphocytes Auto (Unsp spec) [#/Vol] 0.82 10*3/uL Low 0.83-4.51 [facility] Absolute neutrophil countOrd ered By: [facility] on 03-22-2025 Neutrophils (Bld) [#/Vol] 5.1 10*3/uL 2.0-7.7 [facility] Anion gap in Serum or Plasma Ordered By: [facility] on 03-22-2025 Anion gap [Moles/Vol] 12 mmol/L 5-15 [facility] Automated lymphocyte count a s percentage of total leukocytesOrdered By: [facility] on 03-22-2025 Lymphocytes/100 WBC Auto (Unsp spec) 12.6 % Low 19-41 [facility] BUN/creatinine ratioOrdered By: [facility] on 03-22-2025 Urea nitrogen/Creatinine [Mass ratio] 19.3 mg/mg 10-20 [facility] Basophil percentageOrdered B y: [facility] on 03-22-2025 Basophils/100 WBC (Bld) 0.9 % 0-1 [facility] Bilirubin, totalOrdered By: [facility] on 03-22-2025 Bilirubin [Mass/Vol] 0.24 mg/dL 0.00-1.30 [facility] CBC W/Diff, Automatedon 03-12 Absolute Lymph 0.82 X10 3/uL Low 0.83-4.51 [facility] Comment on above: Performed By: #### L 100.0100, L3100.5000, L504.2610, L500.4050 ####[facility] [address] [place], [address] Absolute Neut 5.1 X10 3/uL Normal 2.0-7.7 [facility] Comment on above: Performed By: #### L 100.0100, L3100.5000, L504.2610, L500.4050 ####[facility] [address] [place], [address] Basophils/100 WBC (Bld) 0.9 % Normal 0-1 [facility] Comment on above: Performed By: #### L 100.0100, L3100.5000, L504.2610, L500.4050 ####[facility] [address] [place], [address] Eosinophils/100 WBC (Bld) 1.4 % Normal 0-5 [facility] Comment on above: Performed By: #### L 100.0100, L3100.5000, L504.2610, L500.4050 ####[facility] [address] [place], [address] Erythrocyte distribution width (RBC) [Ratio] 12.3 % Normal 11.6-14.6 [facility] Comment on above: Performed By: #### L 100.0100, L3100.5000, L504.2610, L500.4050 ####[facility] [address] [place], [address] Hematocrit (Bld) [Volume fraction] 32.9 % Low 37-47 [facility] Comment on above: Performed By: #### L 100.0100, L3100.5000, L504.2610, L500.4050 ####[facility] [address] [place], [address] Hemoglobin (Bld) [Mass/Vol] 10.4 g/dL Low 12.0-15.0 [facility] Comment on above: Performed By: #### L 100.0100, L3100.5000, L504.2610, L500.4050 ####[facility] [address] [place], [address] IG% 0.300 Normal 0.0-0.9 [facility] Comment on above: Result Comment: IG% - Immature Granulocytes (promyelocytes, myelocytes and metamyelocytes) > 1% indicates that a LEFT SHIFT is Present. Performed By: #### L 100.0100, L3100.5000, L504.2610, L500.4050 ####[facility] [address] [place], [address] Lymphocytes/100 WBC (Bld) 12.6 % Low 19-41 [facility] Comment on above: Performed By: #### L 100.0100, L3100.5000, L504.2610, L500.4050 ####[facility] [address] [place], [address] MCH (RBC) [Entitic mass] 28.1 pg Normal 27.0-32.0 [facility] Comment on above: Performed By: #### L 100.0100, L3100.5000, L504.2610, L500.4050 ####[facility] [address] [place], [address] MCHC (RBC) [Mass/Vol] 31.6 g/dL Low 32-36 [facility] Comment on above: Performed By: #### L 100.0100, L3100.5000, L504.2610, L500.4050 ####[facility] [address] [place], [address] MCV (RBC) [Entitic vol] 88.9 fL Normal 81-99 [facility] Comment on above: Performed By: #### L 100.0100, L3100.5000, L504.2610, L500.4050 ####[facility] [address] [place], [address] Monocytes/100 WBC (Bld) 7.4 % Normal 0-10 [facility] Comment on above: Performed By: #### L 100.0100, L3100.5000, L504.2610, L500.4050 ####[facility] [address] [place], [address] Neutrophils/100 WBC (Bld) 77.4 % High 47-70 [facility] Comment on above: Performed By: #### L 100.0100, L3100.5000, L504.2610, L500.4050 ####[facility] [address] [place], [address] Nucleated RBC (Bld) [#/Vol] 0 10*3/uL Normal 0-5 [facility] Comment on above: Performed By: #### L 100.0100, L3100.5000, L504.2610, L500.4050 ####[facility] [address] [place], [address] Platelet mean volume (Bld) [Entitic vol] 10.6 fL Normal 6.2-12.0 [facility] Comment on above: Performed By: #### L 100.0100, L3100.5000, L504.2610, L500.4050 ####[facility] [address] [place], [address] Platelets (Bld) [#/Vol] 314 10*3/uL Normal 150-450 [facility] Comment on above: Performed By: #### L 100.0100, L3100.5000, L504.2610, L500.4050 ####[facility] [address] [place], [address] RBC (Bld) [#/Vol] 3.70 10*6/uL Low 4.2-5.4 [facility] Comment on above: Performed By: #### L 100.0100, L3100.5000, L504.2610, L500.4050 ####[facility] [address] [place], [address] RDW SD 39.8 fl Normal 35.1-43.9 [facility] Comment on above: Performed By: #### L 100.0100, L3100.5000, L504.2610, L500.4050 ####[facility] [address] [place], [address] WBC (Bld) [#/Vol] 6.5 10*3/uL Normal 4.4-11.0 [facility] Comment on above: Performed By: #### L 100.0100, L3100.5000, L504.2610, L500.4050 ####[facility] [address] [place], [address] Carbon dioxide, total [Moles /volume] in Central venous bloodOrdered By: Carlos Bernal on 03-22-2025 CO2 [Moles/Vol] 21.8 mmol/L 21.0-32.0 [facility] Chloride assayOrdered By: Emily Bernal on 03-22-2025 Chloride [Moles/Vol] 102 mmol/L 98-108 [facility] Comprehensive Metabolic Prof ilon 03-22-2025 Albumin [Mass/Vol] 4.1 g/dL Normal 3.4-4.8 [facility] Comment on above: Performed By: #### L 100.0100, L3100.5000, L504.2610, L500.4050 ####[facility] [address] [place], [address] Albumin/Globulin [Mass ratio] 1.3 {ratio} Normal 0.9-2.4 [facility] Comment on above: Performed By: #### L 100.0100, L3100.5000, L504.2610, L500.4050 ####[facility] [address] [place], [address] ALK PHOS 84 U/L Normal 35-104 [facility] Comment on above: Performed By: #### L 100.0100, L3100.5000, L504.2610, L500.4050 ####[facility] [address] [place], [address] ALT [Catalytic activity/Vol] 18 U/L Normal <=34 [facility] Comment on above: Performed By: #### L 100.0100, L3100.5000, L504.2610, L500.4050 ####[facility] [address] [place], [address] AST [Catalytic activity/Vol] 32 U/L Normal <=31 [facility] Comment on above: Performed By: #### L 100.0100, L3100.5000, L504.2610, L500.4050 ####[facility] [address] [place], [address] Bilirubin [Mass/Vol] 0.24 mg/dL Normal 0.00-1.30 [facility] Comment on above: Performed By: #### L 100.0100, L3100.5000, L504.2610, L500.4050 ####[facility] [address] [place], [address] BUN/CRE 19.3 RATIO Normal 10-20 [facility] Comment on above: Performed By: #### L 100.0100, L3100.5000, L504.2610, L500.4050 ####[facility] [address] [place], [address] Calcium [Mass/Vol] 9.5 mg/dL Normal 7.6-11.0 [facility] Comment on above: Performed By: #### L 100.0100, L3100.5000, L504.2610, L500.4050 ####[facility] [address] [place], [address] Chloride [Moles/Vol] 102 mmol/L Normal 98-108 [facility] Comment on above: Performed By: #### L 100.0100, L3100.5000, L504.2610, L500.4050 ####[facility] [address] [place], [address] CO2 [Moles/Vol] 21.8 mmol/L Normal 21.0-32.0 [facility] Comment on above: Performed By: #### L 100.0100, L3100.5000, L504.2610, L500.4050 ####[facility] [address] [place], [address] Creatinine [Mass/Vol] 0.77 mg/dL Normal 0.70-1.20 [facility] Comment on above: Performed By: #### L 100.0100, L3100.5000, L504.2610, L500.4050 ####[facility] [address] [place], [address] ECRCL 47.95 ml/min Low 50-250 [facility] Comment on above: Performed By: #### L 100.0100, L3100.5000, L504.2610, L500.4050 ####[facility] [address] [place], [address] GAP 12 Normal 5-15 [facility] Comment on above: Performed By: #### L 100.0100, L3100.5000, L504.2610, L500.4050 ####[facility] [address] [place], [address] GFR/1.73 sq M.predicted among non-blacks MDRD (S/P/Bld) [Vol rate/Area] 77 mL/min/{1.73_m2} Normal >60 [facility] Comment on above: Result Comment: mL/m in/1.73m2 CKD-EPI Creatinine Equation (2020) Performed By: #### L 100.0100, L3100.5000, L504.2610, L500.4050 ####[facility] [address] [place], [address] Globulin (S) [Mass/Vol] 3.2 g/dL Normal 2.2-4.2 [facility] Comment on above: Performed By: #### L 100.0100, L3100.5000, L504.2610, L500.4050 ####[facility] [address] [place], [address] Glucose [Mass/Vol] 125 mg/dL High 70-99 [facility] Comment on above: Performed By: #### L 100.0100, L3100.5000, L504.2610, L500.4050 ####[facility] [address] [place], [address] Potassium [Moles/Vol] 3.7 mmol/L Normal 3.3-5.1 [facility] Comment on above: Performed By: #### L 100.0100, L3100.5000, L504.2610, L500.4050 ####[facility] [address] [place], [address] Sodium [Moles/Vol] 136 mmol/L Normal 133-145 [facility] Comment on above: Performed By: #### L 100.0100, L3100.5000, L504.2610, L500.4050 ####[facility] [address] [place], [address] T PROT 7.3 g/dL Normal 5.9-8.4 [facility] Comment on above: Performed By: #### L 100.0100, L3100.5000, L504.2610, L500.4050 ####[facility] [address] [place], [address] Urea nitrogen [Mass/Vol] 15 mg/dL Normal 4-19 [facility] Comment on above: Performed By: #### L 100.0100, L3100.5000, L504.2610, L500.4050 ####[facility] [address] [place], [address] Eosinophil percentageOrdered By: [facility] Eosinophils/100 WBC (Bld) 1.4 % 0-5 [facility] Erythrocyte distribution wid th ratioOrdered By: [facility] on 03-22-2025 Erythrocyte distribution width (RBC) [Ratio] 12.3 % 11.6-14.6 [facility] Erythrocyte distribution wid th standard deviationOrdered By: [facility] on 03-22-2025 Erythrocyte distribution width (RBC) [Ratio] 39.8 fl 35.1-43.9 [facility] Glomerular filtration rate ( GFR) estimation/1.73 sq m using serum, plasma, or whole bOrdered By: [facility] on 03-22-2025 GFR/1.73 sq M.predicted among non-blacks MDRD (S/P/Bld) [Vol rate/Area] 77 mL/min/{1.73_m2} >60 [facility] Comment on above: mL/min/1.73m2 CKD-EP I Creatinine Equation (2020) Hematocrit Auto (Bld) [Volum e fraction]Ordered By: [facility] on 03-22-2025 Hematocrit (Bld) [Volume fraction] 32.9 % Low 37-47 [facility] Hemoglobin measurementOrdere d By: [facility] on 03-22-2025 Hemoglobin (Bld) [Mass/Vol] 10.4 g/dL Low 12.0-15.0 [facility] Immature granulocytes/100 WB C Auto (Bld)Ordered By: Carlos [facility] on 03-22-2025 Immature granulocytes/100 WBC (Bld) 0.300 % 0.0-0.9 [facility] Comment on above: IG% - Immature Granu locytes (promyelocytes, myelocytes and metamyelocytes) > 1% indicates that a LEFT SHIFT is Present. LDHon 03-22-2025 LDH 279 U/L High 84-246 [facility] Comment on above: Order Comment: 1 Performed By: #### L 100.0100, L3100.5000, L504.2610, L500.4050 ####[facility] [address] [place], [address] Laboratory - Chemistry and C hemistry - challengeOrdered By: Carlos Bernal on 03-22-2025 AST [Catalytic activity/Vol] 32 U/L <32 [facility] Lactate dehydrogenase (LDH) measurementOrdered By: Carlos Bernal on 03-22-2025 LDH [Catalytic activity/Vol] 279 U/L High 84-246 [facility] MCV (mean corpuscular volume ) determinationOrdered By: Carlos Bernal on 03-22-2025 MCV (RBC) [Entitic vol] 88.9 fL 81-99 [facility] Mean corpuscular hemoglobin (MCH) determinationOrdered By: Carlos Bernal on 03-22-2025 MCH (RBC) [Entitic mass] 28.1 pg 27.0-32.0 [facility] Mean corpuscular hemoglobin concentration (MCHC) determinationOrdered By: Carlos Bernal on 03-22-2025 MCHC (RBC) [Mass/Vol] 31.6 g/dL Low 32-36 [facility] Mean platelet volume determi nationOrdered By: Carlos Bernal on 03-22-2025 Platelet mean volume (Bld) [Entitic vol] 10.6 fL 6.2-12.0 [facility] Monocyte percentageOrdered B y: Carlos Bernal on 03-22-2025 Monocytes/100 WBC (Bld) 7.4 % 0-10 [facility] Neutrophil percentageOrdered By: Carlos Bernal on 03-22-2025 Neutrophils/100 WBC (Bld) 77.4 % High 47-70 [facility] Nucleated red blood cell per centageOrdered By: Carlos Bernal on 03-22-2025 Nucleated RBC/100 WBC (Bld) [Ratio] 0 % 0-5 [facility] Platelet countOrdered By: Emily Bernal on 03-22-2025 Platelets (Bld) [#/Vol] 314 10*3/uL 150-450 [facility] Potassium measurement (mass/ volume)Ordered By: Carlos Bernal on 03-22-2025 Potassium (Unsp spec) [Mass/Vol] 3.7 mmol/L 3.3-5.1 [facility] RBC Auto (Bld) [#/Vol]Ordere d By: Carlos Bernal on 03-22-2025 RBC (Bld) [#/Vol] 3.70 10*6/uL Low 4.2-5.4 [facility] Serum creatinine measurement (mass/volume)Ordered By: Carlos Bernal on 03-22-2025 Creatinine [Mass/Vol] 0.77 mg/dL 0.70-1.20 [facility] Serum globulin measurementOr dered By: Carlos Bernal on 03-22-2025 Globulin (S) [Mass/Vol] 3.2 g/dL 2.2-4.2 [facility] Serum glucose measurement (m ass/volume)Ordered By: Carlos Bernal on 03-22-2025 Glucose [Mass/Vol] 125 mg/dL High 70-99 [facility] Serum or plasma alanine thompson otransferase (ALT) measurementOrdered By: Carlos Bernal on 03-22-2025 ALT [Catalytic activity/Vol] 18 U/L <35 [facility] Serum or plasma albumin charlene urement (mass/volume)Ordered By: Carlos Bernal on 03-22-2025 Albumin [Mass/Vol] 4.1 g/dL 3.4-4.8 [facility] Serum or plasma albumin/glob ulin mass ratioOrdered By: Carlos Bernal on 03-22-2025 Albumin/Globulin [Mass ratio] 1.3 {ratio} 0.9-2.4 [facility] Serum or plasma alkaline dameon sphatase measurementOrdered By: Carlos Bernal on 03-22-2025 ALP [Catalytic activity/Vol] 84 U/L 35-104 [facility] Serum or plasma calcium charlene urement (mass/volume)Ordered By: Carlos Bernal on 03-22-2025 Calcium [Mass/Vol] 9.5 mg/dL 7.6-11.0 [facility] Serum or plasma urea nitroge n measurement (mass/volume)Ordered By: Carlos Bernal on 03-22-2025 Urea nitrogen [Mass/Vol] 15 mg/dL 4-19 [facility] Sodium levelOrdered By: Pedro Bernal on 03-22-2025 Sodium [Moles/Vol] 136 mmol/L 133-145 [facility] Total proteinOrdered By: Scot Bernal on 03-22-2025 Protein [Mass/Vol] 7.3 g/dL 5.9-8.4 [facility] White blood cell (WBC) count Ordered By: Carlos Dolores on 03-22-2025 WBC (Bld) [#/Vol] 6.5 10*3/uL 4.4-11.0 [facility] Hemoglobin A1con 02-27-2025 HbA1c (Bld) [Mass fraction] 5.6 % Normal <=5.6 [facility] Comment on above: Order Comment: Order Date: 02/27/25 Order Info: [id number] - A1C Result Comment: Norm al < 5.7 % Prediabetic 5.7 - 6.4 % Diabetic >or= 6.5 % Please note range changes. Performed By: #### L 379.5917, L574.4036 #### [facility] [address] [place], [place], [id number] Hemoglobin A1c percentageOrd ered By: Lela Interiano on 02-27-2025 HbA1c (Bld) [Mass fraction] 5.6 % <5.7 [facility] Comment on above: Normal < 5.7 % Predi abetic 5.7 - 6.4 % Diabetic >or= 6.5 % Please note range changes. TSH DL <= 0.005 mIU/L QnOrde red By: Lela Interiano on 02-27-2025 TSH Qn 0.144 uIU/mL Low 0.300-4.200 [facility] Thyroid Stim Hormone (TSH)on 02-27-2025 TSH 0.144 uIU/mL Low 0.300-4.200 [facility] Comment on above: Order Comment: Order Date: 02/27/25 Order Info: [id number] - TSH Performed By: #### L 501.4969, L524.7582 #### [facility] [address] [place], [place], [address] Stress Reporton 02-07-2025 Stress Report [facility] [address] [address] MR#: [id number] Acct: [id number] Name: ULZ CLANCY Rep #: [id number] : 1940 84 From: Riley Mckeon MD Primary Care: Dr. Paola Corona MD Status: REG CLI Referring Dr: Riley Mckeon MD Sex: F C Stress Test Report Pharmacologic myocardial perfusion stress test. 84-year-old lady with a history of cardiac dysrhythmia Resting EKG demonstrates sinus rhythm with a left bundle branch block with a rate of 76 bpm. Resting blood pressure is 132/84 mmHg. 0.4 mg of regadenoson was infused per usual protocol followed by rapid intravenous saline flush injection. Continuous EKG monitoring was performed. The maximum heart rate was 96 bpm which was 70% of max impacted heart rate the maximum workload was 1 metabolic equivalent. At rest there were no ST or T wave changes noted to suggest ischemia and at peak infusion nonspecific ST changes were noted which did not meet the criteria for ischemia. No clinical angina is noted. The final blood pressure was 148/70 mmHg. Myocardial perfusion protocol. 12 mCi of technetium 99m sestamibi was injected at rest. 0.4 mg of regadenoson was infused per usual protocol. At peak infusion 36.7 mCi of technetium 99m sestamibi was injected stress images were obtained stress and rest images were reconstructed and compared in the short axis vertical long and horizontal long axis. Gated images were also obtained. Perfusion SPECT analysis: Review of the stress images demonstrate normal uptake of tracer noted in all areas of the myocardium. There is a small area in the anteroseptal region with mildly reduced perfusion. The rest images demonstrate a similar pattern. The above may be secondary to the left bundle branch block pattern. No obvious reversibility is noted to suggest ischemia. Gated SPECT analysis: The gated ejection fraction is 59%. Conclusion: Probably normal pharmacologic myocardial perfusion stress test. Preserved ejection fraction. 02/07/2547 Date Riley Mckeon MD CC: Dr. Paola Corona MD; Dr. Riley Mckeon MD Date Dictated: 02/07/25744 Date Transcribed: 02/07/25744 Saw Superintendent: [place] Signed Normal [place] [facility] Echo Completeon 02-03-2025 Echo Complete [facility] [address] [place] [address] Echo Complete 02/03/25 0914 MR#: [id number] Acct: [id number] Name: LUZ CLANCY Rep #: [id number] : 1940 84 From: Riley Mckeon MD Attending Dr: Dr. Riley Mckeon MD Status: INDIGO ROGERS Ordering Dr: Riley Mckeon MD Date: 02/03/25 Location: [facility] Sex: F C Admitted: Reason For Study Reason For Study: SUPRAVENTRICULAR TACHYCARDIA Procedure This was a 2D Doppler, Color Flow transthoracic echocardiogram. Exam performed in department. Left Ventricle Normal LV size. Left ventricular systolic function is normal. The left ventricular ejection fraction is 60 %. No regional wall motion abnormalities noted. Right Ventricle Normal RV size. Normal systolic function. Mitral Valve Bileaflet diffuse mitral valve thickening. Mild mitral valve prolapse. Mild (1+) eccentric mitral valve insufficiency. Tricuspid Valve Normal tricuspid valve. Mild tricuspid valve insufficiency. Pulmonary artery systolic pressure is 34 mmHg. Pulmonic Valve Normal pulmonic valve. Great Vessels Normal aortic root. The pulmonary artery is normal size. Normal inferior vena cava. Pericardium/Pleural No pericardial effusion. MMode/2D Measurements Calculations LVIDd: 5.1 cm IVSd: 1.0 cm Ao root diam: 3.5 cm LVIDs: 3.5 cm LVPWd: 1.0 cm RVDd: 3.0 cm FS: 31.0 % LAV(MOD-bp): 63.9 ml LVAd ap4: 27.1 cm2 LVAd ap2: 21.3 cm2 LAV(MOD-bp) Indexed: 38.4 ml/m2 LVLd ap4: 7.3 cm LVLd ap2: 7.1 cm LAV(MOD-sp2): 61.5 ml EDV(MOD-sp4): 81.3 ml EDV(MOD-sp2): 54.7 ml LAV(MOD-sp4): 61.5 ml EDV(sp4-el): 84.9 ml EDV(sp2-el): 54.4 ml LVAs ap4: 17.2 cm2 LVAs ap2: 11.6 cm2 LVLs ap4: 6.5 cm LVLs ap2: 5.6 cm ESV(MOD-sp4): 39.1 ml ESV(MOD-sp2): 20.3 ml ESV(sp4-el): 38.6 ml ESV(sp2-el): 20.4 ml EF(MOD-sp4): 51.9 % EF(MOD-sp2): 62.9 % EF(sp4-el): 54.6 % SV(MOD-sp4): 42.2 ml SV(MOD-sp2): 34.4 ml SV(sp4-el): 46.4 ml SI(MOD-sp4): 25.4 ml/m2 SI(MOD-sp2): 20.7 ml/m2 LA dimension(2D): 3.7 cm TAPSE: 3.0 cm LA A4 area: 20.1 cm2 Time Measurements MV dec time: 0.18 sec Doppler Measurements Calculations MV E max janene: 53.4 cm/sec Lat Peak E' Janene: 4.3 cm/sec Med Peak E' Janene: 5.9 cm/sec MV A max janene: 92.2 cm/sec E/E' lat: 12.5 E/E' med: 9.1 MV E/A: 0.58 MV V2 max: 136.5 cm/sec MV P1/2t max janene: 71.2 cm/sec Ao V2 max: 120.7 cm/sec MV max P.5 mmHg MV P1/2t: 45.4 msec Ao max P.8 mmHg MV V2 mean: 70.8 cm/sec Ao V2 mean: 81.1 cm/sec MV mean P.4 mmHg MV dec slope: 459.4 cm/sec2 Ao mean P.9 mmHg MV V2 VTI: 20.2 cm MVA(P1/2t): 4.8 cm2 Ao V2 VTI: 23.0 cm AV (velocity ratio): 0.73 LV V1 max: 78.9 cm/sec PA V2 max: 112.4 cm/sec TR max janene: 277.1 cm/sec LV V1 max P.5 mmHg PA V2 mean: 75.1 cm/sec TR max P.7 mmHg LV V1 mean P.4 mmHg LV V1 mean: 55.4 cm/sec LV V1 VTI: 16.9 cm ECHO/Echo Complete Interpretation Summary Normal LV size. Left ventricular systolic function is normal. The left ventricular ejection fraction is 60 %. Bileaflet diffuse mitral valve thickening. Mild mitral valve prolapse. Mild (1+) eccentric mitral valve insufficiency. Pulmonary artery systolic pressure is 34 mmHg. Ordering Physician: Riley Mckeon Referring Physician: Paola Corona Performed By: Angelica James, JOHANNA, RVT 02/07/25830 Date Riley Mckeon MD CC: Dr. Paola Corona MD; Dr. Riley Mckeon MD Date Dictated: 02/03/25913 Date Transcribed: 02/07/25830 Saw Superintendent: Signed Normal [facility] 12 Lead EKG performed [place] [facility] [place] 01-11-2025 12 Lead EKG performed by [address] [address] 12 Lead EKG performed by [facility] 01/11/25 1326 MR#: [id number] Acct: [id number] Name: LUZ CLANCY Rep #: [id number] : 1940 84 From: Riley Mckeon MD Attending Dr: Dr. Riley Mckeon MD Status: DEP A MB Ordering Dr: Riley Mckeon MD Date: 01/11/25 Location: [facility] Sex: F C Admitted: [facility]12 Lead EKG performed by [facility] ECG Report Interpretation Sinus Rhythm -Anteroseptal infarct -age undetermined. -Nonspecific ST depression -Nondiagnostic. ABNORMAL Electronically signed on 01/18/2025 at 11:27 by Riley Mckeon Software Version [id number] 01/18/25 1130 Date Riley Mckeon MD CC: Dr. Paola Corona MD Date Dictated: 01/11/25 132 Date Transcribed: 01/11/251325 Saw Superintendent: [place] Signed Normal [facility] Cardiology Visit Reporton Cardiology Visit Report [facility] [place] [address] OFFICE VISIT Date of Service: 01/11/25 MR#: [id number] Acct: [id number] Name: LUZ CLANCY Rep #: [id number] : 1940 Provider: Dr. Riley Mckeon MD Age/Sex: 84/F [place] [facility] Status: Signed HPI HPI History of Present Illness Details: Pleasant 84-year-old lady who presents for evaluation of tachycardia. She said that she had been in his stable state of health went to see you in the office because of shoulder discomfort and was noted to have an elevated heart rate. An EKG was done which demonstrated an atrial tachycardia with a rate of approximately 119 bpm. It had a left bundle branch block morphology. As part of her workup she had an event monitor placed which demonstrated sinus rhythm with an average heart rate of 79 bpm and minimum heart rate of 54 bpm and maximal 142 bpm with 2 episodes of atrial tachycardia the longest being 32 beats at an average of 104 bpm. There was 1 wide-complex tachycardia versus ventricular tachycardia at 209 bpm. Most of these were asymptomatic. She is on very little medication otherwise. She was sent to us for further evaluation and management. She denies any neck arm or jaw discomfort suggest angina. Her physical exam is unremarkable her electrocardiogram today demonstrates sinus rhythm with a rate of 95 bpm and an incomplete left bundle branch block present. Intake Vital Signs 04/05/24 14:52 01/11/25 13:26 Height 5 ft 5 in 5 ft 5 in Weight: 133 lb BMI 22.1 BP 177/99 H Blood Pressure Location Lt brachial Position Sitting Respiration 16 Pulse 99 Pulse Source Monitor Intake Visit Reasons: Tachycardia (Jolliff) Hearing Health Technician Required: No Accompanied by: Daughter Is patient in pain?: No Allergies doxycycline Adverse Reaction (Severe, Verified 01/11/25 13:34) Nausea erythromycin base (Erythromycin Base) Adverse Reaction (Severe, Verified 01/11/25 13:34) Nausea clindamycin Adverse Reaction (Intermediate, Verified 01/11/25 13:34) Thrush Penicillins Adverse Reaction (Intermediate, Verified 01/11/25 13:34) Hives Medications ???Medication ???Instructions ???Recorded ???Confirmed ???Type Calcium Carbonate/Vitamin D 1 tab PO DAILY 08/01/13 01/11/25 H istory Multivitamins,Therapeutic 1 tab PO DAILY 08/01/13 01/11/25 H istory lactobacillus combination no.9 4 4,000 mmu cells PO DAILY 03/23/23 01/11/25 History billion cell capsule (Adult 50 Plus Probiotic) famotidine 20 mg tablet 20 mg PO QDAY 12/01/24 01/11/25 Hi story (Zantac-360 (famotidine)) levothyroxine 75 mcg tablet 75 mcg PO QDAY 01/11/25 01/11/25 H istory Have you fallen in the past year?: Yes PFSH Medical History Tachycardia Diverticulosis Uncontrolled hypertension Cancer Gastric reflux Pulmonary nodule Surgical History History of tubal ligation History of hysterectomy Family History Mother Colon cancer Breast cancer Daughter Thyroid disorder Social History Smoking Status: Never smoker alcohol intake: never ROS Const Const: Negative for fatigue, weakness, headache(s), daytime sleepiness or difficulty sleeping ENT ENT: Negative for headache(s), dizziness or Nosebleed/epistaxis Cardio Chest Pain: No Palpitations: No Edema: None Resp Respiratory: Positive for SOB with activity (climbing stairs); Negative for SOB at rest, SOB orthopnea SOB lying down or Cough GI GI: Negative nausea, vomiting or heartburn Neuro Neuro: Negative for dizziness, lightheadedness, near syncope, headache(s) or weakness Endo Endo: Negative for fatigue Cardiology Exam Const Appearance: cooperative, healthy appearing, no acute distress, well developed and well groomed Nutritional Appearance: average body habitus and well nourished Orientation: alert, awake and oriented x3 Head Head: normal to inspection, normocephalic and atraumatic Ears: hearing grossly normal bilaterally and external ears normal Nose: external nose normal, nares normal, nasal mucous membranes and turbinates normal, septum normal and no nasal discharge Face and Sinus: face symmetric Mouth: oral mucosae normal, tongue normal, oropharynx normal and moist mucous membranes Teeth and gingiva: dentition normal Throat: posterior oropharynx normal, tonsils normal and uvula midline Eyes General: appearance normal, both eyes and all related structures Eyelids: eyelids normal Conjunctivae: conjunctivae normal Pupils: PERRL, normal by confrontation and accommodation normal EOM: EOM intact bilaterally Neck Neck: normal visual (more content not included)... Normal [facility] TSH DL <= 0.005 mIU/L QnOrde red By: Paola Corona on 12-20-2024 Thyroid Stimulating Hormone (TSH) 0.321 uIU/mL 0.300-4.200 [facility] TSH Qn 0.321 uIU/mL 0.300-4.200 [facility] Thyroid Stim Hormone (TSH)on 12-20-2024 TSH 0.321 uIU/mL Normal 0.300-4.200 [facility] Comment on above: Order Comment: Order Date: 10/25/24 Order Info: [id number] - TSH Performed By: #### L 501.9520 #### [facility] [place], [address] Absolute neutrophil countOrd ered By: Paola Corona on 10-24-2024 Neutrophils (Bld) [#/Vol] 7.7 10*3/uL 2.0-7.7 [facility] Albumin to globulin ratioOrd ered By: Paola Corona on 10-24-2024 Albumin/Globulin [Mass ratio] 1.0 {ratio} 0.9-2.4 [facility] Basophil percentageOrdered B y: Paola Valenciadilshad on 10-24-2024 Basophils/100 WBC (Bld) 0.5 % 0-1 [facility] Bilirubin, totalOrdered By: Paola Diazadriana on 10-24-2024 Bilirubin [Mass/Vol] 0.20 mg/dL 0.20-1.00 [facility] Comment on above: For patients on eltr ombopag therapy, use of Dimension [place] TBIL is not recommended. Blood urea nitrogen (BUN)/cr eatinine ratioOrdered By: Paola Corona on 10-24-2024 Urea nitrogen/Creatinine [Mass ratio] 17.8 mg/mg 10- [facility] CBC W/Diff, Automatedon 10-12 Absolute Lymph 1.01 X10 3/uL Normal 0.83-4.51 [facility] Comment on above: Performed By: #### L 501.9520, L500.4050, L100.0100 #### [facility] [address] [place], [address] Absolute Neut 7.7 X10 3/uL Normal 2.0-7.7 [facility] Comment on above: Performed By: #### L 501.9520, L500.4050, L100.0100 #### [facility] [address] [place], [address] Basophils/100 WBC (Bld) 0.5 % Normal 0-1 [facility] Comment on above: Performed By: #### L 501.9520, L500.4050, L100.0100 #### [facility] [address] [place], [address] Eosinophils/100 WBC (Bld) 0.4 % Normal 0-5 [facility] Comment on above: Performed By: #### L 501.9520, L500.4050, L100.0100 #### [facility] [address] [place], [address] Erythrocyte distribution width (RBC) [Ratio] 12.0 % Normal 11.6-14.6 [facility] Comment on above: Performed By: #### L 501.9520, L500.4050, L100.0100 #### [facility] [address], [address] Hematocrit (Bld) [Volume fraction] 37.3 % Normal 37-47 [facility] Comment on above: Performed By: #### L 501.9520, L500.4050, L100.0100 #### [facility] [address], [address] Hemoglobin (Bld) [Mass/Vol] 12.2 g/dL Normal 12.0-15.0 [facility] Comment on above: Performed By: #### L 501.9520, L500.4050, L100.0100 #### [facility] [address] [place], [address] IG% 0.300 Normal 0.0-0.9 [facility] Comment on above: Result Comment: IG% - Immature Granulocytes (promyelocytes, myelocytes and metamyelocytes) > 1% indicates that a LEFT SHIFT is Present. Performed By: #### L 501.9520, L500.4050, L100.0100 #### [facility] [address] [place], [address] Lymphocytes/100 WBC (Bld) 10.6 % Low 19-41 [facility] Comment on above: Performed By: #### L 501.9520, L500.4050, L100.0100 #### [facility] [address], [address] MCH (RBC) [Entitic mass] 30.0 pg Normal 27.0-32.0 [facility] Comment on above: Performed By: #### L 501.9520, L500.4050, L100.0100 #### [facility] [address] [place], [address] MCHC (RBC) [Mass/Vol] 32.7 g/dL Normal 32-36 [facility] Comment on above: Performed By: #### L 501.9520, L500.4050, L100.0100 #### [facility] [address] [place], [address] MCV (RBC) [Entitic vol] 91.6 fL Normal 81-99 [facility] Comment on above: Performed By: #### L 501.9520, L500.4050, L100.0100 #### [facility] [address] [place], [address] Monocytes/100 WBC (Bld) 7.9 % Normal 0-10 [facility] Comment on above: Performed By: #### L 501.9520, L500.4050, L100.0100 #### [facility] [address] [place], [address] Neutrophils/100 WBC (Bld) 80.3 % High 47-70 [facility] Comment on above: Performed By: #### L 501.9520, L500.4050, L100.0100 #### [facility] [address] [place], [address] Nucleated RBC (Bld) [#/Vol] 0 10*3/uL Normal 0-5 [facility] Comment on above: Performed By: #### L 501.9520, L500.4050, L100.0100 #### [facility] [address] [place], [address] Platelet mean volume (Bld) [Entitic vol] 11.5 fL Normal 6.2-12.0 [facility] Comment on above: Performed By: #### L 501.9520, L500.4050, L100.0100 #### [facility] [address] [place], [address] Platelets (Bld) [#/Vol] 296 10*3/uL Normal 150-450 [facility] Comment on above: Performed By: #### L 501.9520, L500.4050, L100.0100 #### [facility] [address] [place], [address] RBC (Bld) [#/Vol] 4.07 10*6/uL Low 4.2-5.4 [facility] Comment on above: Performed By: #### L 501.9520, L500.4050, L100.0100 #### [facility] [address] [place], [address] RDW SD 40.2 fl Normal 35.1-43.9 [facility] Comment on above: Performed By: #### L 501.9520, L500.4050, L100.0100 #### [facility] [address] [place], [address] WBC (Bld) [#/Vol] 9.6 10*3/uL Normal 4.4-11.0 [facility] Comment on above: Performed By: #### L 501.9520, L500.4050, L100.0100 #### [facility] [address] [place], [address] Carbon dioxide measurementOr dered By: Paola Corona on 10-24-2024 CO2 [Moles/Vol] 26.0 mmol/L 21.0-32.0 [facility] Chloride measurementOrdered By: Paola Corona on 10-24-2024 Chloride [Moles/Vol] 106 mmol/L 98-107 [facility] Comprehensive Metabolic Prof ilon 10-24-2024 Albumin [Mass/Vol] 3.9 g/dL Normal 3.2-5.0 [facility] Comment on above: Performed By: #### L 501.9520, L500.4050, L100.0100 #### [facility] [address] [place], [address] Albumin/Globulin [Mass ratio] 1.0 {ratio} Normal 0.9-2.4 [facility] Comment on above: Performed By: #### L 501.9520, L500.4050, L100.0100 #### [facility] [address] [place], [address] ALK P 76 U/L Normal 45-117 [facility] Comment on above: Performed By: #### L 501.9520, L500.4050, L100.0100 #### [facility] [address] [place], [address] ALT [Catalytic activity/Vol] 27 U/L Normal 13-56 [facility] Comment on above: Performed By: #### L 501.9520, L500.4050, L100.0100 #### [facility] [address] [place], [address] AST [Catalytic activity/Vol] 26 U/L Normal 15-37 [facility] Comment on above: Performed By: #### L 501.9520, L500.4050, L100.0100 #### [facility] [address] [place], [address] Bilirubin [Mass/Vol] 0.20 mg/dL Normal 0.20-1.00 [facility] Comment on above: Result Comment: For patients on eltrombopag therapy, use of Dimension [place] TBIL is not recommended. Performed By: #### L 501.9520, L500.4050, L100.0100 #### [facility] [address] [place], [address] BUN/CRE 17.8 RATIO Normal 10-20 [facility] Comment on above: Performed By: #### L 501.9520, L500.4050, L100.0100 #### [facility] [address] [place], [address] CA,Total 9.4 mg/dL Normal 8.5-10.1 [facility] Comment on above: Performed By: #### L 501.9520, L500.4050, L100.0100 #### [facility] [address] [place], [address] Chloride [Moles/Vol] 106 mmol/L Normal 98-107 [facility] Comment on above: Performed By: #### L 501.9520, L500.4050, L100.0100 #### [facility] [address] [place], [address] CO2 [Moles/Vol] 26.0 mmol/L Normal 21.0-32.0 [facility] Comment on above: Performed By: #### L 501.9520, L500.4050, L100.0100 #### [facility] [address] [place], [address] Creatinine [Mass/Vol] 0.73 mg/dL Normal 0.55-1.02 [facility] Comment on above: Result Comment: The validity of the calculated GFR GFRAA in patients over 70 years has not been determined. Clinical correlation is essential. Performed By: #### L 501.9520, L500.4050, L100.0100 #### [facility] [address] [place], [address] EST GFR - AA 98 mL/min Normal >60 [facility] Comment on above: Result Comment: Afri can Citizen Of [place] GFR Calc Performed By: #### L 501.9520, L500.4050, L100.0100 #### [facility] [address] [place], [address] GAP 5 Normal 5-15 [facility] Comment on above: Performed By: #### L 501.9520, L500.4050, L100.0100 #### [facility] [address] [place], [address] GFR/1.73 sq M.predicted among non-blacks MDRD (S/P/Bld) [Vol rate/Area] 81 mL/min/{1.73_m2} Normal >60 [facility] Comment on above: Result Comment: Non- GFR Calc Performed By: #### L 501.9520, L500.4050, L100.0100 #### [facility] [address] [place], [address] Globulin (S) [Mass/Vol] 4.1 g/dL Normal 2.2-4.2 [facility] Comment on above: Performed By: #### L 501.9520, L500.4050, L100.0100 #### [facility] [address] [place], [address] Glucose [Mass/Vol] 104 mg/dL Normal 74-106 [facility] Comment on above: Result Comment: Fast ing Glucose result from 100 to 125 mg/dL suggests IMPAIRED HOMEOSTASIS per A.D.A. criteria. Performed By: #### L 501.9520, L500.4050, L100.0100 #### [facility] [address] [place], [address] Potassium [Moles/Vol] 3.4 mmol/L Low 3.5-5.1 [facility] Comment on above: Performed By: #### L 501.9520, L500.4050, L100.0100 #### [facility] [address] [place], [address] Sodium [Moles/Vol] 136 mmol/L Normal 136-145 [facility] Comment on above: Performed By: #### L 501.9520, L500.4050, L100.0100 #### [facility] [address] [place], [address] T PROT 8.0 g/dL Normal 6.4-8.2 [facility] Comment on above: Performed By: #### L 501.9520, L500.4050, L100.0100 #### [facility] [address] [place], [address] Urea nitrogen [Mass/Vol] 13 mg/dL Normal 7-18 [facility] Comment on above: Performed By: #### L 501.9520, L500.4050, L100.0100 #### [facility] [address] [place], [address] Eosinophil percentageOrdered By: Paola Corona on 10-24-2024 Eosinophils/100 WBC (Bld) 0.4 % 0-5 [facility] Erythrocyte distribution wid th ratioOrdered By: Paola oCrona on 10-24-2024 Erythrocyte distribution width (RBC) [Ratio] 12.0 % 11.6-14.6 [facility] Erythrocyte distribution wid th standard deviationOrdered By: Paola Corona on 10-24-2024 Erythrocyte distribution width (RBC) [Entitic vol] 40.2 fL 35.1-43.9 [facility] Estimated glomerular filtrat ion rate (GFR) AmericanOrdered By: Paola Corona on 10-24-2024 Estimated GFR (MDRD) Amer 98 mL/min >60 [facility] Comment on above: GFR Calc Glomerular filtration rate ( GFR) estimationOrdered By: Paola Corona on 10-24-2024 Estimated GFR (MDRD) Non-Af Amer 81 mL/min >60 [facility] Comment on above: Non- GFR Calc Glucose measurementOrdered B y: Paola Corona on 10-24-2024 Glucose [Mass/Vol] 104 mg/dL 74-106 [facility] Comment on above: Fasting Glucose resu lt from 100 to 125 mg/dL suggests IMPAIRED HOMEOSTASIS per A.D.A. criteria. Hematocrit Auto (Bld) [Volum e fraction]Ordered By: Paola Corona on 10-24-2024 Hematocrit (Bld) [Volume fraction] 37.3 % 37-47 [facility] Hemoglobin measurementOrdere d By: Paola Corona on 10-24-2024 Hemoglobin (Bld) [Mass/Vol] 12.2 g/dL 12.0-15.0 [facility] Immature granulocytes/100 WB C Auto (Bld)Ordered By: Paola Corona on 10-24-2024 Immature granulocytes/100 WBC (Bld) 0.300 % 0.0-0.9 [facility] Comment on above: IG% - Immature Granu locytes (promyelocytes, myelocytes and metamyelocytes) > 1% indicates that a LEFT SHIFT is Present. Laboratory - Chemistry and C hemistry - challengeOrdered By: Paola Corona on 10-24-2024 AST [Catalytic activity/Vol] 26 U/L 15-37 [facility] Lymphocytes Auto (Unsp spec) [#/Vol]Ordered By: Paola Corona on 10-24-2024 Lymphocytes (Bld) [#/Vol] 1.01 10*3/uL 0.83-4.51 [facility] Lymphocytes/100 WBC Auto (Un sp spec)Ordered By: Paola Corona on 10-24-2024 Lymphocytes/100 WBC (Bld) 10.6 % Low 19-41 [facility] MCV (mean corpuscular volume ) determinationOrdered By: Paola Corona on 10-24-2024 MCV (RBC) [Entitic vol] 91.6 fL 81-99 [facility] Mean corpuscular hemoglobin (MCH) determinationOrdered By: Paola Corona on 10-24-2024 MCH (RBC) [Entitic mass] 30.0 pg 27.0-32.0 [facility] Mean corpuscular hemoglobin concentration (MCHC) determinationOrdered By: Paola Corona on 10-24-2024 MCHC (RBC) [Mass/Vol] 32.7 g/dL 32-36 [facility] Mean platelet volume determi nationOrdered By: Paola Corona on 10-24-2024 Platelet mean volume (Bld) [Entitic vol] 11.5 fL 6.2-12.0 [facility] Monocyte percentageOrdered B y: Paola Corona on 01-13-2025 Monocytes/100 WBC (Bld) 7.9 % 0-10 [facility] Neutrophil percentageOrdered By: Paola Corona on 10-24-2024 Neutrophils/100 WBC (Bld) 80.3 % High 47-70 [facility] Nucleated red blood cell per centageOrdered By: Paola Corona on 10-24-2024 Nucleated RBC/100 WBC (Bld) [Ratio] 0 % 0-5 [facility] Platelet countOrdered By: Guerrero Corona on 10-24-2024 Platelets (Bld) [#/Vol] 296 10*3/uL 150-450 [facility] Potassium measurementOrdered By: Paola Corona on 10-24-2024 Potassium [Moles/Vol] 3.4 mmol/L Low 3.5-5.1 [facility] RBC Auto (Bld) [#/Vol]Ordere d By: Paola Corona on 10-24-2024 RBC (Bld) [#/Vol] 4.07 10*6/uL Low 4.2-5.4 [facility] Serum anion gap measurementO rdered By: Paola Corona on 10-24-2024 Anion gap [Moles/Vol] 5 mmol/L 5-15 [facility] Serum globulin measurementOr dered By: Paola Corona on 10-24-2024 Globulin (S) [Mass/Vol] 4.1 g/dL 2.2-4.2 [facility] Serum or plasma alanine thompson otransferase (ALT) measurementOrdered By: Paola Corona on 10-24-2024 ALT [Catalytic activity/Vol] 27 U/L 13-56 [facility] Serum or plasma albumin charlene urement (mass/volume)Ordered By: Paola Corona on 10-24-2024 Albumin [Mass/Vol] 3.9 g/dL 3.2-5.0 [facility] Serum or plasma alkaline dameon sphatase measurementOrdered By: Paola Corona on 10-24-2024 ALP [Catalytic activity/Vol] 76 U/L 45-117 [facility] Serum or plasma calcium charlene urement (mass/volume)Ordered By: Paola Corona on 10-24-2024 Calcium [Mass/Vol] 9.4 mg/dL 8.5-10.1 [facility] Serum or plasma creatinine m easurement (mass/volume)Ordered By: Paola Corona on 10-24-2024 Creatinine [Mass/Vol] 0.73 mg/dL 0.55-1.02 [facility] Comment on above: The validity of the calculated GFR & GFRAA in patients over 70 years has not been determined. Clinical correlation is essential. Serum or plasma urea nitroge n measurement (mass/volume)Ordered By: Paola Corona on 10-24-2024 Urea nitrogen [Mass/Vol] 13 mg/dL 7-18 [facility] Sodium levelOrdered By: Paola Corona on 10-24-2024 Sodium [Moles/Vol] 136 mmol/L 136-145 [facility] TSH QnOrdered By: Paola naik on 10-24-2024 Thyroid Stimulating Hormone (TSH) 6.580 uIU/mL High 0.358-3.740 [facility] Thyroid Stim Hormone (TSH)on 10-24-2024 TSH 6.580 uIU/mL High 0.358-3.740 [facility] Comment on above: Performed By: #### L 501.9520, L500.4050, L100.0100 #### [facility] [address] [place], [place], [id number] Total proteinOrdered By: Paola Corona on 10-24-2024 Protein [Mass/Vol] 8.0 g/dL 6.4-8.2 [facility] White blood cell (WBC) count Ordered By: Paola Corona on 10-24-2024 WBC (Bld) [#/Vol] 9.6 10*3/uL 4.4-11.0 [facility] Urgent Care Visit Reporton 0 10-21-2024 Urgent Care Visit Report [facility] [address] , [address] [place], [place] [address] OFFICE VISIT Date of Service: 10/21/24 MR#: [id number] Acct: [id number] Name: LUZ CLANCY Rep #: [id number] : 1940 Provider: MARLY Fox Age/Sex: 84/F Location[place] [facility] Status: Signed Intake Vital Signs 04/05/24 14:52 10/21/24 06:35 Height 5 ft 5 in BP 160/76 H Blood Pressure Location Lt brachial Position Sitting Respiration 16 Pulse 116 H Pulse Source NIBP Temp 97.9 F Temp Source Oral Pulse Oximetry (%) 97 Oxygen Delivery Method room air Intake Visit Reasons: BACK PAIN Chief Complaint: upper back pain Hearing Health Technician Required: No Is patient in pain?: Yes Allergies doxycycline Adverse Reaction (Severe, Verified 10/21/24 06:35) Nausea erythromycin base (Erythromycin Base) Adverse Reaction (Severe, Verified 10/21/24 06:35) Nausea Penicillins Adverse Reaction (Intermediate, Verified 10/21/24 06:35) Hives Is last menstrual period known: No Post menopausal: Yes Patient : No Have you fallen in the past year?: No Nurse's Note: right upper back pain x 4 days. viral illness last week, pt notes improvement but cough continues. pt unsure if musculoskeletal, concern for that vs pneumonia. PFSH Medical History Uncontrolled hypertension Thrush, oral Wears glasses Wears dentures Cancer History of diverticulitis Gastric reflux Non-smoker Leg cramps History of stress test Nausea RUQ abdominal pain Pulmonary nodule Surgical History History of tubal ligation History of hysterectomy Family History Mother Colon cancer Breast cancer Daughter Thyroid disorder Social History Smoking Status: Never smoker alcohol intake: never HPI HPI Chief Complaint: upper back pain Details: LUZ CLANCY, is a 84 F who presents to the office today for complaint of left upper back pain. Patient states that she had cold-like symptoms last week with a cough and states that the cough persists however does state that it is much better than it was. She also states that she had difficulty lifting a package of water at the store the day and believes that that may be where she pulled a muscle in her back. She does however want to make sure that her lungs sound clear as she had a friend who had pneumonia and she notes that that may at times cause back pain. She denies hemoptysis, shortness of breath or difficulty breathing. No fever, chills, sweats. No other associated symptoms or alleviating/aggravating factors. ROS Const Constitutional: No other (As above) Exam Const General: cooperative and well developed HENMT Head: normal to inspection and atraumatic Ears: hearing grossly normal bilaterally Nose: external nose normal Face and sinus: normal facial exam Mouth: oral mucosae normal Resp Effort Inspection: normal respiratory effort and no audible wheezes Auscultation: Bilateral: Clear to Auscultation Cardio Palpation: normal PMI Rate: regular rate Rhythm: regular rhythm Musc Other: Palpable muscle spasm left back just below the scapula. Neuro General: patient alert and CN's II-XI intact bilaterally Psych Appearance: grossly normal Mental Status: mental status grossly normal Coding Level of Care Code Off vis,est,level 3 Diagnoses Strain of muscle at thorax level S29.019A Assessment and Plan Assessment and Plan (1) Strain of muscle at thorax level: Status: Acute Plan: Patient advised that her lungs sound completely clear and that she does have a palpable muscle spasm that is painful with palpation where she is concerned for the back pain. Patient advised to use ice alternating with heat and to do at home stretching. Advised to use ibuprofen or Tylenol as needed for pain unless contraindicated. Patient verbalized understanding and agreement with all the above. Clinical Quality Measures Falls Risk Screening/Assistive Devices Have you fallen in the past year?: No 10/21/24 0647 Date Eagle Garcia Signature: Date (if applicable) CC: Normal [facility] Abdomen Limitedon 05-18-2024 Abdomen Limited [facility] Imaging [facility] [address] [place] [address] [id number] Abdomen Limited MR#: [id number] Acct: [id number] Name: LUZ CLANCY Rep #: [id number] : 1940 F 84 From: Rahel emerson MD PCP: Dr. Paola Corona MD Status: REG CLI Study: Abdomen Limited Date of Exam: 05/18/24 Exam# [id number] Ordering Dr: Paola Corona MD [id number] HISTORY: nausea. TECHNIQUE: Rodríguez scale and color doppler imaging was performed of the right upper quadrant. 94 images. COMPARISON: CT 07/26/2015. FINDINGS: LIVER: 13.2 cm in length. Homogeneous echotexture without focal lesion demonstrated. No intrahepatic ductal dilatation. MAIN PORTAL VEIN: Patent with flow in the appropriate direction. COMMON BILE DUCT: 3 mm in diameter. GALLBLADDER: No gallstones. 2 mm wall thickness. No pericholecystic fluid. Sonographic Pang sign negative. PANCREAS: Visualized proximal portion unremarkable. RIGHT KIDNEY: 9.5 cm in length. No hydronephrosis. 1.6 x 2.8 x 2.9 cm septated lower pole cyst. 1.2 cm simple cyst also seen. 3 mm echogenic focus. US/Abdomen Limited IMPRESSION: No sonographic evidence of cholelithiasis. Small nonobstructing right renal calculus. Right renal cysts. Electronically Signed: Rahel Alarcon MD at 8:47 EDT , CC: Dr. Paola Corona MD Saw Superintendent: Signed Normal [facility] Acute [facility]domen Inc [facility] Acute Abdomen Inc Chest [facility] Imaging Services [address] [place] [id number] Acute [facility]domen Inc Chest MR#: [id number] Acct: [id number] Name: LUZ CLANCY Rep #: [id number] : 1940 F 84 From: Delfin Brito MD PCP: Dr. Paola Corona MD Status: REG CLI Study: Acute Abdomen Inc Chest Date of Exam: 05/09/24 Exam# [id number] Ordering Dr: Paola Corona MD [id number] EXAM: XR ABDOMEN, 2 VIEWS AND XR CHEST, 1 VIEW CLINICAL INDICATION: nausea and constipation TECHNIQUE: Frontal view of the chest, frontal view of the abdomen/pelvis and upright or decubitus view of the abdomen. COMPARISON: No relevant prior studies available. FINDINGS: CHEST: LUNGS AND PLEURAL SPACES: Unremarkable. No consolidation or edema. No pneumothorax. No effusion. HEART: Unremarkable. Cardiac silhouette not enlarged. MEDIASTINUM: Central airways and mediastinal contour are unremarkable. ABDOMEN: INTRAPERITONEAL SPACE: No free air. GASTROINTESTINAL TRACT: Unremarkable. Non-obstructive. No bowel or stomach distention. ORGANS: Unremarkable as visualized. No organomegaly. No abnormal calcifications. TUBES, LINES AND DEVICES: None. BONES/JOINTS: No acute findings. SOFT TISSUES: No acute findings. RAD/Acute Abdomen Inc Chest IMPRESSION: Negative chest and abdominal series. Electronically Signed: Delfin Brito MD at 23:34 EDT , CC: Dr. Paola Corona MD Saw Superintendent: Signed Normal [facility] Culture, urineOrdered By: Damaris Parrish on 02-04-2024 Bacteria identified Cx Nom (U) Streptococcus mitis/ oralis [facility] - Chemistry and C hemistry - challengeon 02-04-2024 Bilirubin Ql (U) Negative [facility] Glucose Ql (U) Negative [facility] Ketones Ql (U) Negative [facility] pH (U) 6.0 [pH] [facility] Specific gravity (U) [Rel density] 1.010 [facility] Urobilinogen (U) [Mass/Vol] Negative [facility] - Hematology and Cell countson 02-04-2024 Hemoglobin Ql (U) Negative [facility] - Specimen inform ationon 02-04-2024 Clarity (U) Clear [facility] Color (U) YELLOW [facility] - Urinalysison Nitrite Ql (U) Negative [facility] Protein Ql (U) Negative [facility] No Panel Informationon 02-03 Urine Leukocytes Negatve [facility] Urine Non-Hemolyzed Blood [facility] Absolute lymphocyte countOrd ered By: Carlos Bernal on 03-30-2023 Lymphocytes Auto (Unsp spec) [#/Vol] 0.90 10*3/uL 0.83-4.51 [facility] Basophil percentageOrdered B y: Carlos Bernal on 03-30-2023 Basophils/100 WBC (Bld) 0.5 % 0-1 [facility] Bilirubin [Mass/Vol] 0.30 mg/dL 0.20-1.00 [facility] Comment on above: For patients on eltr ombopag therapy, use of Dimension [place] TBIL is not recommended. Chloride [Moles/Vol] 105 mmol/L 98-107 [facility] Eosinophils/100 WBC (Bld) 1.0 % 0-5 [facility] Glucose [Mass/Vol] 100 mg/dL 74-106 [facility] Comment on above: Fasting Glucose resu lt from 100 to 125 mg/dL suggests IMPAIRED HOMEOSTASIS per A.D.A. criteria. LDH [Catalytic activity/Vol] 287 U/L 84-246 [facility] Neutrophils (Bld) [#/Vol] 2.7 10*3/uL 2.0-7.7 [facility] Neutrophils/100 WBC (Bld) 68.4 % 47-70 [facility] Potassium [Moles/Vol] 4.1 mmol/L 3.5-5.1 [facility] Protein [Mass/Vol] 8.0 g/dL 6.4-8.2 [facility] Sodium [Moles/Vol] 136 mmol/L 136-145 [facility] WBC (Bld) [#/Vol] 3.9 10*3/uL 4.4-11.0 [facility] Blood erythrocytes count (nu mber/volume)Ordered By: Carlos Bernal on 03-30-2023 RBC (Bld) [#/Vol] 3.98 10*6/uL 4.2-5.4 [facility] Blood hemoglobin measurement (mass/volume)Ordered By: Carlos Bernal on 03-30-2023 Hemoglobin (Bld) [Mass/Vol] 11.8 g/dL 12.0-15.0 [facility] Blood lymphocytes/100 leukoc ytesOrdered By: Carlos Bernal on 03-30-2023 Lymphocytes/100 WBC (Bld) 23.1 % 19-41 [facility] Blood monocytes/100 leukocyt esOrdered By: Carlos Bernal on 03-30-2023 Monocytes/100 WBC (Bld) 6.7 % 0-10 [facility] Blood platelet mean volumeOr dered By: Carlos Bernal on 03-30-2023 Platelet mean volume (Bld) [Entitic vol] 11.3 fL 6.2-12.0 [facility] Determination of erythrocyte mean corpuscular volume (MCV)Ordered By: Carlos Bernal on 03-30-2023 MCV (RBC) [Entitic vol] 93.7 fL 81-99 [facility] Hematocrit Auto (Bld) [Volum e fraction]Ordered By: Carlos Bernal on 03-30-2023 Hematocrit (Bld) [Volume fraction] 37.3 % 37-47 [facility] - Chemistry and C hemistry - challengeOrdered By: Carlos Dolores on 03-30-2023 ALP [Catalytic activity/Vol] 62 U/L 45-117 [facility] ALT [Catalytic activity/Vol] 35 U/L 13-56 [facility] CO2 [Moles/Vol] 26.0 mmol/L 21.0-32.0 [facility] Globulin (S) [Mass/Vol] 3.9 g/dL 2.2-4.2 [facility] Urea nitrogen/Creatinine [Mass ratio] 20.2 mg/mg 10-20 [facility] - Hematology and Cell countsOrdered By: Carlos Bernal on 03-30-2023 Erythrocyte distribution width (RBC) [Entitic vol] 42.2 fL 35.1-43.9 [facility] Erythrocyte distribution width (RBC) [Ratio] 12.3 % 11.6-14.6 [facility] Immature granulocytes/100 WBC (Bld) 0.300 % 0.0-0.9 [facility] Comment on above: IG% - Immature Granu locytes (promyelocytes, myelocytes and metamyelocytes) > 1% indicates that a LEFT SHIFT is Present. MCH (RBC) [Entitic mass] 29.6 pg 27.0-32.0 [facility] Nucleated RBC/100 WBC (Bld) [Ratio] 0 % 0-5 [facility] MCHC Auto (RBC) [Mass/Vol]Or dered By: Carlos Bernal on 03-30-2023 MCHC (RBC) [Mass/Vol] 31.6 g/dL 32-36 [facility] No Panel InformationOrdered By: Carlos Bernal on 03-30-2023 CA 125 Antigen 21.8 U/mL 0.0-38.1 [facility] Comment on above: [facility] [employer] El ectrochemiluminescence Immunoassay(ECLIA)Values obtained with different assay methods or kits cannotbe used interchangeably. Results cannot be interpreted asabsolute evidence of the presence or absence of malignantdisease.Performed at: [employer] [id number] Director: Guero Smyth PhD, Phone: [phone] Estimated Creatinine Clearance Calc 44.61 ml/min [facility] Estimated GFR (MDRD) Amer 78 mL/min >60 [facility] Comment on above: GFR Calc Estimated GFR (MDRD) Non-Af Amer 64 mL/min >60 [facility] Comment on above: Non- GFR Calc Reactive Lymphocytes RARE [facility] Platelets bldOrdered By: Scot Bernal on 03-30-2023 Platelets (Bld) [#/Vol] 237 10*3/uL 150-450 [facility] Serum or plasma albumin charlene urement (mass/volume)Ordered By: Carlos Bernal on 03-30-2023 Albumin [Mass/Vol] 4.1 g/dL 3.2-5.0 [facility] Serum or plasma albumin/glob ulin mass ratioOrdered By: Carlos Bernal on 03-30-2023 Albumin/Globulin [Mass ratio] 1.1 {ratio} 0.9-2.4 [facility] Serum or plasma calcium charlene urement (mass/volume)Ordered By: Carlos Bernal on 03-30-2023 Calcium [Mass/Vol] 9.8 mg/dL 8.5-10.1 [facility] Serum or plasma creatinine m easurement (mass/volume)Ordered By: Carlos Bernal on 03-30-2023 Creatinine [Mass/Vol] 0.89 mg/dL 0.55-1.02 [facility] Comment on above: The validity of the calculated GFR & GFRAA in patients over 70 years has not been determined. Clinical correlation is essential. Serum or plasma urea nitroge n measurement (mass/volume)Ordered By: Carlos Bernal on 03-30-2023 Urea nitrogen [Mass/Vol] 18 mg/dL 7-18 [facility] Thin prep Papanicolaou smear with manual screeningOrdered By: Carlos Bernal on 03-30-2023 Thin prep Papanicolaou smear with manual screening 33 U/L 15-37 [facility] Thin prep Papanicolaou smear with manual screening 5 5-15 [facility] Absolute lymphocyte countOrd ered By: Dr. Bernal on 03-16-2023 Lymphocytes Auto (Unsp spec) [#/Vol] 0.80 10*3/uL 0.83-4.51 [facility] Basophil percentageOrdered B y: Dr. Bernal on 03-16-2023 Basophils/100 WBC (Bld) 0.8 % 0-1 [facility] Bilirubin [Mass/Vol] 0.40 mg/dL 0.20-1.00 [facility] Comment on above: For patients on eltr ombopag therapy, use of Dimension [place] TBIL is not recommended. Chloride [Moles/Vol] 108 mmol/L 98-107 [facility] Eosinophils/100 WBC (Bld) 1.8 % 0-5 [facility] Glucose [Mass/Vol] 90 mg/dL 74-106 [facility] LDH [Catalytic activity/Vol] 300 U/L 84-246 [facility] Neutrophils (Bld) [#/Vol] 3.6 10*3/uL 2.0-7.7 [facility] Neutrophils/100 WBC (Bld) 72.1 % 47-70 [facility] [facility] Potassium [Moles/Vol] 3.3 mmol/L 3.5-5.1 [facility] Protein [Mass/Vol] 8.4 g/dL 6.4-8.2 [facility] Sodium [Moles/Vol] 140 mmol/L 136-145 [facility] WBC (Bld) [#/Vol] 4.9 10*3/uL 4.4-11.0 [facility] Blood erythrocytes count (nu mber/volume)Ordered By: Dr. Bernal on 03-16-2023 RBC (Bld) [#/Vol] 4.04 10*6/uL 4.2-5.4 [facility] Blood hemoglobin measurement (mass/volume)Ordered By: Dr. Bernal on 03-16-2023 Hemoglobin (Bld) [Mass/Vol] 12.0 g/dL 12.0-15.0 [facility] Blood lymphocytes/100 leukoc ytesOrdered By: Dr. Bernal on 03-16-2023 Lymphocytes/100 WBC (Bld) 16.2 % 19-41 [facility] Blood monocytes/100 leukocyt esOrdered By: Dr. Bernal on 03-16-2023 Monocytes/100 WBC (Bld) 8.9 % 0-10 [facility] Blood platelet mean volumeOr dered By: Dr. Bernal on 03-16-2023 Platelet mean volume (Bld) [Entitic vol] 12.9 fL 6.2-12.0 [facility] Determination of erythrocyte mean corpuscular volume (MCV)Ordered By: Dr. Bernal on 03-16-2023 MCV (RBC) [Entitic vol] 95.3 fL 81-99 [facility] Hematocrit Auto (Bld) [Volum e fraction]Ordered By: Dr. Bernal on 03-16-2023 Hematocrit (Bld) [Volume fraction] 38.5 % 37-47 [facility] Laboratory - Chemistry and C hemistry - challengeOrdered By: Dr. Bernal on 03-16-2023 ALP [Catalytic activity/Vol] 61 U/L 45-117 [facility] ALT [Catalytic activity/Vol] 30 U/L 13-56 [facility] CO2 [Moles/Vol] 26.0 mmol/L 21.0-32.0 [facility] Globulin (S) [Mass/Vol] 4.4 g/dL 2.2-4.2 [facility] Urea nitrogen/Creatinine [Mass ratio] 22.6 mg/mg 10-20 [facility] Laboratory - Hematology and Cell countsOrdered By: Dr. Bernal on 03-16-2023 Erythrocyte distribution width (RBC) [Entitic vol] 44.4 fL 35.1-43.9 [facility] Erythrocyte distribution width (RBC) [Ratio] 12.7 % 11.6-14.6 [facility] Immature granulocytes/100 WBC (Bld) 0.200 % 0.0-0.9 [facility] Comment on above: IG% - Immature Granu locytes (promyelocytes, myelocytes and metamyelocytes) > 1% indicates that a LEFT SHIFT is Present. MCH (RBC) [Entitic mass] 29.7 pg 27.0-32.0 [facility] Nucleated RBC/100 WBC (Bld) [Ratio] 0 % 0-5 [facility] MCHC Auto (RBC) [Mass/Vol]Or dered By: Dr. Bernal on 03-16-2023 MCHC (RBC) [Mass/Vol] 31.2 g/dL 32-36 [facility] No Panel InformationOrdered By: Dr. Bernal on 03-16-2023 CA 125 Antigen 21.6 U/mL 0.0-38.1 [facility] Comment on above: [employer] El ectrochemiluminescence Immunoassay(ECLIA)Values obtained with different assay methods or kits cannotbe used interchangeably. Results cannot be interpreted asabsolute evidence of the presence or absence of malignantdisease.Performed at: [facility] [address] [id number] Director: Guero Smyth PhD, Phone: [phone] Estimated GFR (MDRD) Amer 89 mL/min >60 [facility] Comment on above: GFR Calc Estimated GFR (MDRD) Non-Af Amer 73 mL/min >60 [facility] Comment on above: Non- GFR Calc Platelets bldOrdered By: Dr. Bernal on 03-16-2023 Platelets (Bld) [#/Vol] 216 10*3/uL 150-450 [facility] Serum or plasma albumin charlene urement (mass/volume)Ordered By: Dr. Bernal on 03-16-2023 Albumin [Mass/Vol] 4.0 g/dL 3.2-5.0 [facility] Serum or plasma albumin/glob ulin mass ratioOrdered By: Dr. Bernal on 03-16-2023 Albumin/Globulin [Mass ratio] 0.9 {ratio} 0.9-2.4 [facility] Serum or plasma calcium charlene urement (mass/volume)Ordered By: Dr. Bernal on 03-16-2023 Calcium [Mass/Vol] 9.9 mg/dL 8.5-10.1 [facility] Serum or plasma creatinine m easurement (mass/volume)Ordered By: Dr. Bernal on 03-16-2023 Creatinine [Mass/Vol] 0.80 mg/dL 0.55-1.02 [facility] Comment on above: The validity of the calculated GFR & GFRAA in patients over 70 years has not been determined. Clinical correlation is essential. Serum or plasma urea nitroge n measurement (mass/volume)Ordered By: Dr. Bernal on 03-16-2023 Urea nitrogen [Mass/Vol] 18 mg/dL 7-18 [facility] Thin prep Papanicolaou smear with manual screeningOrdered By: Dr. Bernal on 03-16-2023 Thin prep Papanicolaou smear with manual screening 31 U/L 15-37 [facility] Thin prep Papanicolaou smear with manual screening 6 5-15 [facility] Absolute lymphocyte counton 06-05-2022 Lymphocytes Auto (Unsp spec) [#/Vol] 1.18 10*3/uL 0.83-4.51 [facility] Work Phone: Basophil percentageon 2021 Basophil percentage 0 SEEN /hpf 0-5 [facility] Work Phone: Basophils/100 WBC (Bld) 0.4 % 0-1 [facility] Work Phone: Bilirubin [Mass/Vol] 0.70 mg/dL 0.20-1.00 [facility] Work Phone: Comment on above: For patients on eltr ombopag therapy, use of Dimension [place] TBIL is not recommended. Chloride [Moles/Vol] 108 mmol/L 98-107 [facility] Work Phone: Eosinophils/100 WBC (Bld) 1.5 % 0-5 [facility] Work Phone: Glucose [Mass/Vol] 113 mg/dL 74-106 [facility] Work Phone: Comment on above: Fasting Glucose resu lt from 100 to 125 mg/dL suggests IMPAIRED HOMEOSTASIS per A.D.A. criteria. Lactate [Moles/Vol] 1.6 mmol/L 0.4-2.0 [facility] Work Phone: Neutrophils (Bld) [#/Vol] 3.1 10*3/uL 2.0-7.7 [facility] Work Phone: Neutrophils/100 WBC (Bld) 65.7 % 47-70 [facility] Work Phone: Potassium [Moles/Vol] 3.3 mmol/L 3.5-5.1 [facility] Work Phone: Protein [Mass/Vol] 7.6 g/dL 6.4-8.2 [facility] Work Phone: Sodium [Moles/Vol] 141 mmol/L 136-145 [facility] Work Phone: WBC (Bld) [#/Vol] 4.8 10*3/uL 4.4-11.0 [facility] Work Phone: [phone] Bilirubin Test strip Ql (U)o n 06-05-2022 Bilirubin Ql (U) Negative Negative [facility] Work Phone: Blood erythrocytes count (nu mber/volume)on 06-05-2022 RBC (Bld) [#/Vol] 4.09 10*6/uL 4.2-5.4 [facility] Work Phone: Blood hemoglobin measurement (mass/volume)on 06-05-2022 Hemoglobin (Bld) [Mass/Vol] 12.3 g/dL 12.0-15.0 [facility] Work Phone: Blood lymphocytes/100 leukoc yteson 06-05-2022 Lymphocytes/100 WBC (Bld) 24.8 % 19-41 [facility] Work Phone: Blood monocytes/100 leukocyt eson 06-05-2022 Monocytes/100 WBC (Bld) 7.6 % 0-10 [facility] Work Phone: Blood platelet mean volumeon 06-05-2022 Platelet mean volume (Bld) [Entitic vol] 11.6 fL 6.2-12.0 [facility] Work Phone: Determination of erythrocyte mean corpuscular volume (MCV)on 06-05-2022 MCV (RBC) [Entitic vol] 91.2 fL 81-99 [facility] Work Phone: Hematocrit Auto (Bld) [Volum e fraction]on 06-05-2022 Hematocrit (Bld) [Volume fraction] 37.3 % 37-47 [facility] Work Phone: INR in Blood by Coagulation assayon 06-05-2022 INR Coag (Bld) [Relative time] 1.0 {INR} [facility] Work Phone: Ketones Test strip Ql (U)on 06-05-2022 Ketones Ql (U) 5 mg/dl Negative [facility] Work Phone: Laboratory - Chemistry and C hemistry - challengeon 06-05-2022 ALP [Catalytic activity/Vol] 72 U/L 45-117 [facility] Work Phone: ALT [Catalytic activity/Vol] 24 U/L 13-56 [facility] Work Phone: CO2 [Moles/Vol] 24.0 mmol/L 21.0-32.0 [facility] Work Phone: Globulin (S) [Mass/Vol] 3.4 g/dL 2.2-4.2 [facility] Work Phone: Urea nitrogen/Creatinine [Mass ratio] 13.2 mg/mg 10-20 [facility] Work Phone: Laboratory - Coagulationon 0 06-05-2022 aPTT Coag (Bld) [Time] 24.3 s 24.1-36.2 [facility] Work Phone: [phone] PT Coag (PPP) [Time] 12.7 s 11.7-14.9 [facility] Work Phone: Laboratory - Hematology and Cell countson 06-05-2022 Erythrocyte distribution width (RBC) [Entitic vol] 39.8 fL 35.1-43.9 [facility] Work Phone: [phone] Erythrocyte distribution width (RBC) [Ratio] 11.9 % 11.6-14.6 [facility] Work Phone: Immature granulocytes/100 WBC (Bld) 0.000 % 0.0-0.9 [facility] Work Phone: Comment on above: IG% - Immature Granu locytes (promyelocytes, myelocytes and metamyelocytes) > 1% indicates that a LEFT SHIFT is Present. MCH (RBC) [Entitic mass] 30.1 pg 27.0-32.0 [facility] Work Phone: Nucleated RBC/100 WBC (Bld) [Ratio] 0 % 0-5 [facility] Work Phone: MCHC Auto (RBC) [Mass/Vol]on 06-05-2022 MCHC (RBC) [Mass/Vol] 33.0 g/dL 32-36 [facility] Work Phone: [phone] Mucus LM Ql (Urine sed)on Mucus Ql (Urine sed) 0 SEEN /hpf [facility] Work Phone: Nitrite Test strip Ql (U)on 06-05-2022 Nitrite Ql (U) Negative Negative [facility] Work Phone: No Panel Informationon 06-05 Estimated Creatinine Clearance Calc 47.26 ml/min [facility] Work Phone: Estimated GFR (MDRD) Amer 84 mL/min >60 [facility] Work Phone: Comment on above: GFR Calc Estimated GFR (MDRD) Non-Af Amer 70 mL/min >60 [facility] Work Phone: Comment on above: Non- GFR Calc Troponin I High Sensitivity 7 pg/mL 3.0-54.0 [facility] Work Phone: Comment on above: Please Note: New Neelima t Units and Gender Specific Reference Ranges. For more information see Policy Stat Procedure [place] High Sensitivity Troponin (TNIH) and attachments. Platelets bldon 06-05-2022 Platelets (Bld) [#/Vol] 228 10*3/uL 150-450 [facility] Work Phone: Protein Test strip Ql (U)on 06-05-2022 Protein Ql (U) Negative Negative [facility] Work Phone: Serum or plasma albumin charlene urement (mass/volume)on 06-05-2022 Albumin [Mass/Vol] 4.2 g/dL 3.2-5.0 [facility] Work Phone: Serum or plasma albumin/glob ulin mass ratioon 06-05-2022 Albumin/Globulin [Mass ratio] 1.2 {ratio} 0.9-2.4 [facility] Work Phone: Serum or plasma calcium charlene urement (mass/volume)on 06-05-2022 Calcium [Mass/Vol] 9.5 mg/dL 8.5-10.1 [facility] Work Phone: Serum or plasma creatinine m easurement (mass/volume)on 06-05-2022 Creatinine [Mass/Vol] 0.84 mg/dL 0.55-1.02 [facility] Work Phone: Comment on above: The validity of the calculated GFR & GFRAA in patients over 70 years has not been determined. Clinical correlation is essential. Serum or plasma urea nitroge n measurement (mass/volume)on 06-05-2022 Urea nitrogen [Mass/Vol] 11 mg/dL 7-18 [facility] Work Phone: Squamous epithelial cells de tection in urine sediment by light microscopyon 06-05-2022 Epithelial cells.squamous LM Ql (Urine sed) 0 SEEN /hpf 5-10 [facility] Work Phone: Thin prep Papanicolaou smear with manual screeningon 06-05-2022 Thin prep Papanicolaou smear with manual screening 24 U/L 15-37 [facility] Work Phone: [phone] Thin prep Papanicolaou smear with manual screening 9 5-15 [facility] Work Phone: [phone] Urine blood detectionon - RBC Ql (U) Negative Negative [facility] Work Phone: [phone] RBC Ql (U) 0 SEEN /hpf 0-5 [facility] Work Phone: [phone] Urine clarityon 06-05-2022 Clarity (U) Clear Clear [facility] Work Phone: Urine color determinationon 06-05-2022 Color (U) Yellow Yellow [facility] Work Phone: [phone] Urine glucose detectionon Glucose Ql (U) Normal mg/dl Normal [facility] Work Phone: [phone] Urine leukocyte esterase det ection by dipstickon 06-05-2022 Leukocyte esterase Test strip Ql (U) 25 /ul Negative [facility] Work Phone: [phone] Urine pHon 06-05-2022 pH (U) 8.0 [pH] 5.0 - 8.0 [facility] Work Phone: [phone] Urine sediment bacteria coun t by microscopy (number/high power field)on 06-05-2022 Bacteria LM.HPF (Urine sed) [#/Area] 0 /[HPF] None Seen [facility] Work Phone: Urine specific gravity measu rementon 06-05-2022 Specific gravity (U) [Rel density] 1.015 1.002-1.030 [facility] Work Phone: [phone] Urobilinogen Auto test strip Ql (U)on 06-05-2022 Urobilinogen Ql (U) Normal mg/dl Normal [facility] Work Phone: Absolute lymphocyte counton 03-12-2022 Lymphocytes Auto (Unsp spec) [#/Vol] 0.97 10*3/uL 0.83-4.51 [facility] Work Phone: Basophil percentageon 2021 Basophils/100 WBC (Bld) 1.1 % 0-1 [facility] Work Phone: Bilirubin [Mass/Vol] 0.40 mg/dL 0.20-1.00 [facility] Work Phone: Comment on above: For patients on eltr ombopag therapy, use of Dimension [place] TBIL is not recommended. Chloride [Moles/Vol] 108 mmol/L 98-107 [facility] Work Phone: Eosinophils/100 WBC (Bld) 2.9 % 0-5 [facility] Work Phone: Glucose [Mass/Vol] 116 mg/dL 74-106 [facility] Work Phone: Comment on above: Fasting Glucose resu lt from 100 to 125 mg/dL suggests IMPAIRED HOMEOSTASIS per A.D.A. criteria. Neutrophils (Bld) [#/Vol] 2.3 10*3/uL 2.0-7.7 [facility] Work Phone: Neutrophils/100 WBC (Bld) 60.7 % 47-70 [facility] Work Phone: Potassium [Moles/Vol] 3.7 mmol/L 3.5-5.1 [facility] Work Phone: Protein [Mass/Vol] 7.2 g/dL 6.4-8.2 [facility] Work Phone: Sodium [Moles/Vol] 140 mmol/L 136-145 [facility] Work Phone: WBC (Bld) [#/Vol] 3.8 10*3/uL 4.4-11.0 [facility] Work Phone: Blood erythrocytes count (nu mber/volume)on 03-12-2022 RBC (Bld) [#/Vol] 3.65 10*6/uL 4.2-5.4 [facility] Work Phone: Blood hemoglobin measurement (mass/volume)on 03-12-2022 Hemoglobin (Bld) [Mass/Vol] 11.0 g/dL 12.0-15.0 [facility] Work Phone: Blood lymphocytes/100 leukoc yteson 03-12-2022 Lymphocytes/100 WBC (Bld) 25.5 % 19-41 [facility] Work Phone: Blood monocytes/100 leukocyt eson 03-12-2022 Monocytes/100 WBC (Bld) 9.5 % 0-10 [facility] Work Phone: Blood platelet mean volumeon 03-12-2022 Platelet mean volume (Bld) [Entitic vol] 11.0 fL 6.2-12.0 [facility] Work Phone: Determination of erythrocyte mean corpuscular volume (MCV)on 03-12-2022 MCV (RBC) [Entitic vol] 92.6 fL 81-99 [facility] Work Phone: Hematocrit Auto (Bld) [Volum e fraction]on 03-12-2022 Hematocrit (Bld) [Volume fraction] 33.8 % 37-47 [facility] Work Phone: [phone] Laboratory - Chemistry and C hemistry - challengeon 03-12-2022 ALP [Catalytic activity/Vol] 84 U/L 45-117 [facility] Work Phone: ALT [Catalytic activity/Vol] 31 U/L 13-56 [facility] Work Phone: CO2 [Moles/Vol] 25.0 mmol/L 21.0-32.0 [facility] Work Phone: Globulin (S) [Mass/Vol] 3.5 g/dL 2.2-4.2 [facility] Work Phone: Urea nitrogen/Creatinine [Mass ratio] 15.7 mg/mg 10-20 [facility] Work Phone: Laboratory - Hematology and Cell countson 03-12-2022 Erythrocyte distribution width (RBC) [Entitic vol] 41.8 fL 35.1-43.9 [facility] Work Phone: Erythrocyte distribution width (RBC) [Ratio] 12.2 % 11.6-14.6 [facility] Work Phone: Immature granulocytes/100 WBC (Bld) 0.300 % 0.0-0.9 [facility] Work Phone: Comment on above: IG% - Immature Granu locytes (promyelocytes, myelocytes and metamyelocytes) > 1% indicates that a LEFT SHIFT is Present. MCH (RBC) [Entitic mass] 30.1 pg 27.0-32.0 [facility] Work Phone: Nucleated RBC/100 WBC (Bld) [Ratio] 0 % 0-5 [facility] Work Phone: MCHC Auto (RBC) [Mass/Vol]on 03-12-2022 MCHC (RBC) [Mass/Vol] 32.5 g/dL 32-36 [facility] Work Phone: No Panel Informationon 03-12 CA 125 Antigen 13.5 U/mL 0.0-38.1 [facility] Work Phone: Comment on above: [facility] [employer] El ectrochemiluminescence Immunoassay(ECLIA)Values obtained with different assay methods or kits cannotbe used interchangeably. Results cannot be interpreted asabsolute evidence of the presence or absence of malignantdisease.Performed at: [address] [id number] Director: Guero Smyth PhD, Phone: [phone] Estimated Creatinine Clearance Calc 48.64 ml/min [facility] Work Phone: Estimated GFR (MDRD) Amer 85 mL/min >60 [facility] Work Phone: Comment on above: GFR Calc Estimated GFR (MDRD) Non-Af Amer 71 mL/min >60 [facility] Work Phone: Comment on above: Non- GFR Calc Platelets bldon 03-12-2022 Platelets (Bld) [#/Vol] 212 10*3/uL 150-450 [facility] Work Phone: Serum or plasma albumin charleen urement (mass/volume)on 03-12-2022 Albumin [Mass/Vol] 3.7 g/dL 3.2-5.0 [facility] Work Phone: Serum or plasma albumin/glob ulin mass ratioon 03-12-2022 Albumin/Globulin [Mass ratio] 1.1 {ratio} 0.9-2.4 [facility] Work Phone: Serum or plasma calcium charlene urement (mass/volume)on 03-12-2022 Calcium [Mass/Vol] 9.5 mg/dL 8.5-10.1 [facility] Work Phone: Serum or plasma creatinine m easurement (mass/volume)on 03-12-2022 Creatinine [Mass/Vol] 0.83 mg/dL 0.55-1.02 [facility] Work Phone: Comment on above: The validity of the calculated GFR & GFRAA in patients over 70 years has not been determined. Clinical correlation is essential. Serum or plasma urea nitroge n measurement (mass/volume)on 03-12-2022 Urea nitrogen [Mass/Vol] 13 mg/dL 7-18 [facility] Work Phone: Thin prep Papanicolaou smear with manual screeningon 03-12-2022 Thin prep Papanicolaou smear with manual screening 23 U/L 15-37 [facility] Work Phone: Thin prep Papanicolaou smear with manual screening 7 5-15 [facility] Work Phone: Thin prep Papanicolaou smear with manual screening 251 U/L 84-246 [facility] Work Phone: CNOVon 10-08-2021 CNOV Office Visit ([facility]WSTR ) -- LUZ CLANCY ([id number]) 1940 F Date Time Provider Department 10/08/21 7:30 AM SEBLE VANN During your visit today, we recorded the following information about you: Temperature Pulse Respiration Blood pressure 96.7 degrees 88/minute 16/minute 182/94 Weight 58.1 kg Seble Vann APRN.CNP 10/08/2021 8:25 AM Signed This note was created using [employer]. Subjective Luz Clancy is a 81 year old female. 81 year old female with PMH GERD presents with complaints of COVID concern. Acute onset of symptoms yesterday. +chills Denies SOB. Denies URI sx. Denies fever or chills. Denies N/V/D. Denies skin rash or lesions. Has had x 2 COVID She had + exposure to COVID on . She is accompanied by her daughter and son in law who are here for same. The history is provided by the patient. No language tutor was used. Illness The current episode started yesterday. The onset was gradual. The problem has been unchanged. The problem is mild. Nothing relieves the symptoms. Nothing aggravates the symptoms. Pertinent negatives include no orthopnea, no fever, no decreased vision, no double vision, no eye itching, no photophobia, no abdominal pain, no constipation, no diarrhea, no nausea, no vomiting, no congestion, no ear discharge, no ear pain, no headaches, no hearing loss, no mouth sores, no rhinorrhea, no sore throat, no stridor, no swollen glands, no muscle aches, no neck pain, no cough, no URI, no wheezing, no rash, no eye discharge, no eye pain and no eye redness. She has been eating and drinking normally. Urine output has been normal. The last void occurred less than 6 hours ago. There were sick contacts at home. She has received no recent medical care. PAST MEDICAL HISTORY Diagnosis Date - Diverticulosis of colon (without mention of hemorrhage) - Esophageal reflux resolved - Family history of malignant neoplasm of gastrointestinal tract - Internal hemorrhoids without mention of complication - Unspecified menopausal and postmenopausal disorder - Uterine cancer (HCC) PAST SURGICAL HISTORY Procedure Laterality Date - COLONOSCOP W/ OR W/O [facility] SPEC 06/17/2006 Colonoscopy - COLONOSCOP W/ OR W/O [facility] SPEC 07/15/11 - COLONOSCOP W/ OR W/O [facility] SPEC 07/17/16 Colonoscopy (needs MAC next time) - EGD W/O OR W/BRUSH/WASH 07/17/16 EGD - LIGATE FALLOPIAN TUBE Tubal ligation - TOTAL ABDOM HYSTERECTOMY 2013 Hysterectomy, PRADEEP ALLERGIES Doxycycline, Emycin [Erythromycin], and Penicillins MEDICATIONS THERAPEUTIC MULTIVITAMIN TAB Take one(1) tablet daily. FAMILY HISTORY Problem Relation Age of Onset - Cancer Mother colon - None Father - None Brother Social History Tobacco Use - Smoking status: Never Smoker - Smokeless tobacco: Not on file Substance Use Topics - Alcohol use: No - Drug use: No Review of Systems Constitutional: Positive for chills. Negative for activity change, appetite change, diaphoresis, fatigue and fever. HENT: Negative for congestion, ear discharge, ear pain, hearing loss, mouth sores, rhinorrhea and sore throat. Eyes: Negative for double vision, photophobia, pain, discharge, redness and itching. Respiratory: Negative for apnea, cough, choking, chest tightness, wheezing and stridor. Cardiovascular: Negative for chest pain, palpitations, orthopnea and leg swelling. Gastrointestinal: Negative for abdominal pain, constipation, diarrhea, nausea and vomiting. Musculoskeletal: Negative for arthralgias, back pain, gait problem and neck pain. Skin: Negative for color change, pallor, rash and wound. Allergic/Immunologic: Negative for environmental allergies, food allergies and immunocompromised state. Neurological: Negative for headaches. Hematological: Negative for adenopathy. Does not bruise/bleed easily. Psychiatric/Behavioral: Negative for agitation and behavioral problems. Objective BP 182/94 Pulse 88 Temp (!) 35.9 ?C (96.7 ?F) Resp 16 Wt 58.1 kg (128 lb) SpO2 97% Physical Exam Vitals and nursing note reviewed. Constitutional: General: She is not in acute distress. Appearance: Normal appearance. She is normal weight. She is not ill-appearing, toxic-appearing or diaphoretic. HENT: Head: Normocephalic and atraumatic. Right Ear: Ear canal and external ear normal. Left Ear: Ear canal and external ear normal. Nose: Nose normal. No congestion or rhinorrhea. Mouth/Throat: Mouth: Mucous membranes are moist. Pharynx: No oropharyngeal exudate or posterior oropharyngeal erythema. Eyes: General: Right eye: No discharge. Left eye: No discharge. Extraocular Movements: Extraocular movements intact. Conjunctiva/sclera: Conjunctivae normal. Pupils: Pupils are equal, round, and reactive to light. Cardiovascular: Rate and Rhythm: Normal rate and regular rhythm. Pulses: No (more content not included)... Normal [facility] COVID w FLU A+B Routon 10-08 Influenza A PCR Negative Normal [facility] Comment on above: Performed By: #### C OVFLU #### [place] [phone] Influenza B PCR Negative Normal [facility] Comment on above: Performed By: #### C OVFLU #### [place] [phone] SARS-CoV-2 (COVID-19) RNA NAKUL+probe Ql (Unsp spec) UPPER RESPIRATORY TRACT SWAB Normal [facility] Comment on above: Performed By: #### C OVFLU #### [place] [phone] SARS-CoV-2 (COVID-19) RNA NAKUL+probe Ql (Unsp spec) Negative for COVID19 (SARS CoV2) by RT-PCR or equivalent method. Normal Negative for COVID19 (SARS CoV2) by RT-PCR or equivalent method. [facility] Comment on above: Result Comment: This test was developed and its performance characteristics determined by [facility] [place]. This test has been authorized by FDA under an Emergency Use Authorization (EUA). This test has been validated in accordance with the FDA's Guidance Document Policy for Diagnostics Testing in Laboratories Certified to Perform High Complexity Testing under CLIA prior to Emergency use Authorization for Coronavirus Disease 2019 during the Public Health Emergency issued on December 10, 2019. Test performed by [facility], [facility] [place], [address], [place] [address]. Performed By: #### C OVFLU #### [facility] [address] [place] [id number] Erythrocyte distribution wid th standard deviationon 03-16-2019 Erythrocyte distribution width (RBC) [Entitic vol] 40.4 fL 35.1-43.9 [facility] Laboratory - Hematology and Cell countson 03-16-2019 Erythrocyte distribution width (RBC) [Ratio] 12.1 % 11.6-14.6 [facility] Total cell counton 9 Cells counted Molgen (Bld/Tiss) [#] Not Reportable [facility] - Coagulationon 10-24-2016 aPTT Coag (Bld) [Time] 25.9 s 24.1-36.2 [facility] INR Coag (Bld) [Relative time] 0.9 {INR} [facility] PT Coag (PPP) [Time] 11.4 s Low 11.7-14.9 [facility] Lab Report: CBC W/Diff, Auto matedon 02-11-2017 Basophils/100 leukocytes 0.7 % Invalid Interpretation Code 0-1 [facility] Work Phone: Eosinophils/100 leukocytes 2.1 % Invalid Interpretation Code 0-5 [facility] Work Phone: Erythrocytes (RBC) 4.35 10*6/uL Invalid Interpretation Code 4.2-5.4 [facility] Work Phone: Hematocrit (HCT) 42.1 % Invalid Interpretation Code 37-47 [facility] Work Phone: Hemoglobin (HGB) 13.5 g/dL Invalid Interpretation Code 12.0-15.0 [facility] Work Phone: immature granulocytes, percentage of total cells, blood 0.000 % Invalid Interpretation Code 0.0-0.9 [facility] Work Phone: Lymphocytes 1.03 X10 3/UL Invalid Interpretation Code 0.83-4.51 [facility] Work Phone: Lymphocytes/100 leukocytes 23.5 % Invalid Interpretation Code 19-41 [facility] Work Phone: MCH 31.0 pg Invalid Interpretation Code 27.0-32.0 [facility] Work Phone: MCHC 32.1 G/GL Invalid Interpretation Code 32-36 [facility] Work Phone: MCV 96.8 fL Invalid Interpretation Code 81-99 [facility] Work Phone: Monocytes/100 leukocytes 9.6 % Invalid Interpretation Code 0-10 [facility] Work Phone: neutrophil count, blood 2.8 X10 3/UL Invalid Interpretation Code 2.0-7.7 [facility] Work Phone: Neutrophils/100 leukocytes 64.1 % Invalid Interpretation Code 47-70 [facility] Work Phone: Platelets 249 10*3/mm3 Invalid Interpretation Code 150-450 [facility] Work Phone: PMV by Kandis 11.0 fL Invalid Interpretation Code 6.2-12.0 [facility] Work Phone: RDW-CA 12.4 % Invalid Interpretation Code 11.6-14.6 [facility] [employer] [facility] Work Phone: red blood cell distribution width, size density 44.0 fL High 35.1-43.9 [facility] Work Phone: WBC (Leukocytes) 4.4 10*3/uL Invalid Interpretation Code 4.4-11.0 [facility] Work Phone: Lab Report: [facility] 02-11-2017 Alanine aminotransferase (ALT) 30 U/L Invalid Interpretation Code 12-78 [facility] Work Phone: Albumin 4.6 g/dL Invalid Interpretation Code 3.4-5.0 [facility] Work Phone: Albumin/Globulin Ratio 1.1 {ratio} Invalid Interpretation Code 0.9-2.4 [employer] Work Phone: Alkaline phosphatase (ALP) 73 U/L Invalid Interpretation Code 45-117 [employer] Work Phone: Anion gap 10 mmol/L Invalid Interpretation Code 5-15 [employer] Work Phone: Aspartate aminotransferase (AST) 23 U/L Invalid Interpretation Code 15-37 [employer] Work Phone: Bilirubin (total) 0.40 mg/dL Invalid Interpretation Code 0.20-1.00 [employer] Work Phone: BUN/Creatinine Ratio 19.1 RATIO Invalid Interpretation Code 10-20 [employer] Work Phone: Calcium 9.4 mg/dL Invalid Interpretation Code 8.5-10.1 [employer] Work Phone: Chloride 103 mmol/L Invalid Interpretation Code 98-107 [employer] Work Phone: CO2 26.0 mmol/L Invalid Interpretation Code 21.0-32.0 [employer] Work Phone: Creatinine 0.84 mg/dL Invalid Interpretation Code 0.55-1.02 [employer] Work Phone: eGFR (non-black) 85 mL/min/{1.73_m2} Invalid Interpretation Code >60 [employer] Work Phone: eGFR (non-black) 70 mL/min/{1.73_m2} Invalid Interpretation Code >60 [employer] Work Phone: Globulin 4.1 g/dL High 2.3-3.5 [employer] Work Phone: Glucose 89 mg/dL Invalid Interpretation Code 70-110 [employer] Work Phone: Potassium 3.7 mmol/L Invalid Interpretation Code 3.5-5.1 [employer] Work Phone: Protein 8.7 g/dL High 6.4-8.2 [employer] Work Phone: Sodium 139 mmol/L Invalid Interpretation Code 136-145 [employer] Work Phone: Urea nitrogen 16 mg/dL Invalid Interpretation Code 7-18 [employer] Work Phone: Lab Report: LDHon 02-11-2017 lactate dehydrogenase - serum 285 U/L High 84-246 [employer] Work Phone: Lab Report: Magnesiumon Magnesium 2.5 mg/dL High 1.8-2.4 [employer] Work Phone: Lab Report: Uric Acidon Urate 3.7 mg/dL Invalid Interpretation Code 2.6-6.0 [employer] Work Phone: Office Visit: 6 mo f/u - PHQ 9 Completeon 08-14-2016 Adolescent depression screening assessment Adolescent depression screening assessment Invalid Interpretation Code [facility] Phone: Adult depression screening assessment Adult depression screening assessment Invalid Interpretation Code [employer] Work Phone: Documentation of current medications (procedure) Done Invalid Interpretation Code [employer] Work Phone: Tobacco smoking status NHIS Never Invalid Interpretation Code [employer] Work Phone: Tobacco use CPHS Never smoker Invalid Interpretation Code [facility] Phone: Office Visit: 6 mo f/u - PHQ 9 Completeon 07-16-2016 Colonoscopy (procedure) Colonoscopy (procedure) Invalid Interpretation Code [employer] Work Phone: Office Visit: 6 mo f/u - PHQ 9 Completeon 10-15-2015 Breast Mammogram screening Normal Bilateral Invalid Interpretation Code [employer] Work Phone: Lab Report: Cancer Antigen 1 25on 07-27-2015 cancer 125 antigen 11.2 U/mL Invalid Interpretation Code 0.0-34.0 [employer] Work Phone: Lab Report: CBC W/Diff, Auto - EPLAB Onlyon 02-15-2015 Absolute Neutrophil count 1.5 X10 3/UL Low 2.0-7.7 [facility] Work Phone: Lab Report: Comprehensive Me tabolic Profilon 11-14-2014 GE use only - for [employer] import when terms are not otherwise specified 66 U/L Invalid Interpretation Code 50-136 [facility] Work Phone: Lab Report: LDHon 11-14-2014 Lactate dehydrogenase (LDH) 188 U/L Invalid Interpretation Code 87-241 [facility] Work Phone: Lab Report: Thyroid Stim Hor salvador (TSH)on 11-14-2014 Thyroid stimulating hormone (TSH) 4.78 u[iU]/mL Critically high 0.358-3.74 [facility] Work Phone: Lab Report: B12on 01-16-2014 vitamin b12, serum 424 pg/mL Normal 211-911 [facility] Work Phone: Lab Report: FOLon 01-16-2014 Folate 55.10 ng/mL High 3.1-17.5 [facility] Work Phone: Lab Report: LIVERon 01-17-20 14 Bilirubin (direct) 0.08 mg/dL Normal 0.00-0.30 [facility] Work Phone: Office Visit: 6 mo f/u - PHQ 9 Completeon 08-12-2006 General categories [interpretation] of Cervical or vaginal smear or scraping by Cyto stain Normal Invalid Interpretation Code [facility] Work Phone: Culture, urine Bacteria identified Cx Nom (U) Positive [facility] Work Phone: Laboratory - Microbiology an d Antimicrobial susceptibility Bacteria identified Cx Nom (Bld) No growth in 5 days. [facility] Work Phone: Vital Signs Date Time Vital Sign Value Performing Clinician Faci lity 04-24-2025 15:53-0400 Body height 165.[address] Paola Corona MD Work Phone: [facility] 04-24-2025 15:53-0400 Body mass index (BMI) [Ratio] 20.9 kg/m2 Dr. Paola Corona MD Work Phone: [facility] 04-24-2025 15:53-0400 Body temperature 98.8 [degF] Dr. Paola Corona MD Work Phone: [facility] 04-24-2025 15:53-0400 Body weight 57.[address] Paola Corona MD Work Phone: [facility] 04-24-2025 15:53-0400 Diastolic blood pressure 81 mm[Hg] Dr. Paola Corona MD Work Phone: [facility] 04-24-2025 15:53-0400 Heart rate 75 /min Dr. Paola Corona MD Work Phone: [facility] 04-24-2025 15:53-0400 Respiratory rate 18 /min Dr. Paola Corona MD Work Phone: [facility] 04-24-2025 15:53-0400 SaO2% (BldA) [Mass fraction] 98 % Dr. Paloa Corona MD Work Phone: [facility] 04-24-2025 15:53-0400 Systolic blood pressure 180 mm[Hg] Dr. Paola Corona MD Work Phone: [facility] 04-12-2025 14:56-0400 Body height 165.[address] Paola Corona MD Work Phone: [facility] 04-12-2025 14:56-0400 Body mass index (BMI) [Ratio] 21 kg/m2 Dr. Paola Corona MD Work Phone: [facility] 04-12-2025 14:56-0400 Body weight 57.[address] Paola Corona MD Work Phone: [facility] 04-12-2025 14:56-0400 Diastolic blood pressure 99 mm[Hg] Dr. Paola Corona MD Work Phone: [facility] 04-12-2025 14:56-0400 Heart rate 81 /min Dr. Paola Corona MD Work Phone: [facility] 04-12-2025 14:56-0400 Respiratory rate 15 /min Dr. Paola Corona MD Work Phone: [facility] 04-12-2025 14:56-0400 SaO2% (BldA) [Mass fraction] 99 % Dr. Paola Corona MD Work Phone: [facility] 04-12-2025 14:56-0400 Systolic blood pressure 171 mm[Hg] Dr. Paola Corona MD Work Phone: 2(021)518-179318 [place] [address] 01-11-2025 13:26-0400 Body mass index (BMI) [Ratio] 22.1 kg/m2 Dr. Paola Corona MD Work Phone: 1(052)141-964818 [place] [address] 01-11-2025 13:26-0400 Body weight 60.[address] Paola Corona MD Work Phone: 8(661)892-397298 [address] 01-11-2025 13:26-0400 Diastolic blood pressure 99 mm[Hg] Dr. Paola Corona MD Work Phone: 7(694)446-886018 [place] [address] 01-11-2025 13:26-0400 Heart rate 99 /min Dr. Paola Corona MD Work Phone: 6(874)650-087218 [place] [address] 01-11-2025 13:26-0400 Respiratory rate 16 /min Dr. Paola Corona MD Work Phone: 3(988)725-110918 [place] [address] 01-11-2025 13:26-0400 Systolic blood pressure 177 mm[Hg] Dr. Paola Corona MD Work Phone: [facility] 10-21-2024 06:35-0500 Body temperature 97.9 [degF] Dr. Paola Corona MD Work Phone: 3(344)303-731218 [place] [address] 10-21-2024 06:35-0500 Diastolic blood pressure 76 mm[Hg] Dr. Paola Corona MD Work Phone: [facility] 10-21-2024 06:35-0500 Heart rate 116 /min Dr. Paola Corona MD Work Phone: 5(015)209-708098 [address] 10-21-2024 06:35-0500 Respiratory rate 16 /min Dr. Paola Corona MD Work Phone: [facility] 10-21-2024 06:35-0500 SaO2% (BldA) [Mass fraction] 97 % Dr. Paola Corona MD Work Phone: 4(695)741-801318 [place] [address] 10-21-2024 06:35-0500 Systolic blood pressure 160 mm[Hg] Dr. Paola Corona MD Work Phone: 0(048)393-840018 [place] [address] 02-04-2024 06:47-0400 Body temperature 97.8 [degF] Dr. Paola Corona Work Phone: 5(619)796-380427 [place] [address] 02-04-2024 06:47-0400 Diastolic blood pressure 74 mm[Hg] Dr. Paola Corona Work Phone: 1(154)306-155498 [address] 02-04-2024 06:47-0400 Heart rate 91 /min Dr. Paola Corona Work Phone: 9(314)792-696618 [place] [address] 02-04-2024 06:47-0400 Respiratory rate 17 /min Dr. Paola Corona Work Phone: 0(472)102-340027 [place] [address] 02-04-2024 06:47-0400 SaO2% (BldA) [Mass fraction] 99 % Dr. Paola Corona Work Phone: 2(258)433-537418 [place] [address] 02-04-2024 06:47-0400 Systolic blood pressure 158 mm[Hg] Dr. Paola Corona Work Phone: [facility] 12-26-2023 08:05-0400 Body temperature 98.1 [degF] Dr. Paola Corona Work Phone: 2(464)512-675427 [place] [address] 12-26-2023 08:05-0400 Diastolic blood pressure 84 mm[Hg] Dr. Paola Corona Work Phone: 3(692)195-447818 [place] [address] 12-26-2023 08:05-0400 Heart rate 101 /min Dr. Paola Corona Work Phone: 8(756)876-465918 [place] [address] 12-26-2023 08:05-0400 Respiratory rate 14 /min Dr. Paola Corona Work Phone: [facility] 12-26-2023 08:05-0400 SaO2% (BldA) [Mass fraction] 98 % Dr. Paola Corona Work Phone: [facility] 12-26-2023 08:05-0400 Systolic blood pressure 140 mm[Hg] Dr. Paola Corona Work Phone: [facility] 12-10-2023 07:08-0500 Body height 165.[address] Paola Corona Work Phone: 6(750)575-280298 [address] 12-10-2023 07:08-0500 Body mass index (BMI) [Ratio] 21.9 kg/m2 Dr. Paola Corona Work Phone: [facility] 12-10-2023 07:08-0500 Body temperature 98 [degF] Dr. Paola Corona Work Phone: [facility] 12-10-2023 07:08-0500 Body weight 59.[address] Paola Corona Work Phone: [facility] 12-10-2023 07:08-0500 Diastolic blood pressure 80 mm[Hg] Dr. Paola Corona Work Phone: [facility] 12-10-2023 07:08-0500 Heart rate 97 /min Dr. Paola Corona Work Phone: [facility] 12-10-2023 07:08-0500 Respiratory rate 12 /min Dr. Paola Corona Work Phone: [facility] 12-10-2023 07:08-0500 SaO2% (BldA) [Mass fraction] 96 % Dr. Paola Corona Work Phone: [facility] 12-10-2023 07:08-0500 Systolic blood pressure 162 mm[Hg] Dr. Paola Corona Work Phone: [facility] 03-23-2023 13:28-0400 Body height 165.[address] Paola Corona Work Phone: [facility] 03-23-2023 13:28-0400 Body mass index (BMI) [Ratio] 21.6 kg/m2 Dr. Paola Corona Work Phone: [facility] 03-23-2023 13:28-0400 Body temperature 97.3 [degF] Dr. Paola Corona Work Phone: [facility] 03-23-2023 13:28-0400 Body weight 59.[address] Paola Corona Work Phone: [facility] 03-23-2023 13:28-0400 Diastolic blood pressure 81 mm[Hg] Dr. Paola Corona Work Phone: [facility] 03-23-2023 13:28-0400 Heart rate 87 /min Dr. Paola Corona Work Phone: [facility] 03-23-2023 13:28-0400 Respiratory rate 16 /min Dr. Paola Corona Work Phone: [facility] 03-23-2023 13:28-0400 SaO2% (BldA) [Mass fraction] 99 % Dr. Paola Corona Work Phone: [facility] 03-23-2023 13:28-0400 Systolic blood pressure 175 mm[Hg] Dr. Paola Corona Work Phone: [facility] 06-05-2022 10:31-0400 Body temperature 98.6 [degF] Dr. Paola Corona Work Phone: [facility] Work Phone: 06-05-2022 10:29-0400 Diastolic blood pressure 84 mm[Hg] Dr. Paola Corona Work Phone: [facility] Work Phone: 06-05-2022 10:29-0400 Heart rate 83 /min Dr. Paola Corona Work Phone: [facility] Work Phone: 06-05-2022 10:29-0400 Respiratory rate 18 /min Dr. Paola Corona Work Phone: [facility] Work Phone: 06-05-2022 10:29-0400 SaO2% (BldA) [Mass fraction] 96 % Dr. Paola Corona Work Phone: [facility] Work Phone: 06-05-2022 10:29-0400 Systolic blood pressure 144 mm[Hg] Dr. Paola Corona Work Phone: [facility] Work Phone: 06-05-2022 07:50-0400 Body height 165.[address] Paola Corona Work Phone: [facility] Work Phone: 06-05-2022 07:50-0400 Body mass index (BMI) [Ratio] 24.7 kg/m2 Dr. Paola Corona Work Phone: [facility] Work Phone: 06-05-2022 07:50-0400 Body weight 67.[address] Paola Corona Work Phone: [facility] Work Phone: 03-24-2022 15:22-0400 Body height 162.[address] Paola Corona Work Phone: [facility] Work Phone: 03-24-2022 15:22-0400 Body mass index (BMI) [Ratio] 23.1 kg/m2 Dr. Paola Corona Work Phone: [facility] Work Phone: 03-24-2022 15:22-0400 Body temperature 98.4 [degF] Dr. Paola Corona Work Phone: [facility] Work Phone: 03-24-2022 15:22-0400 Body weight 61.[address] Paola Corona Work Phone: [facility] Work Phone: 03-24-2022 15:22-0400 Diastolic blood pressure 96 mm[Hg] Dr. Paola Corona Work Phone: [facility] Work Phone: 03-24-2022 15:22-0400 Heart rate 82 /min Dr. Paloa Corona Work Phone: [facility] Work Phone: 03-24-2022 15:22-0400 Respiratory rate 15 /min Dr. Paola Corona Work Phone: [facility] Work Phone: 03-24-2022 15:22-0400 SaO2% (BldA) [Mass fraction] 97 % Dr. Paola Corona Work Phone: [facility] Work Phone: 03-24-2022 15:22-0400 Systolic blood pressure 182 mm[Hg] Dr. Paola Corona Work Phone: [facility] Work Phone: 02-16-2022 13:58-0400 Diastolic blood pressure 85 mm[Hg] [facility] Work Phone: 02-16-2022 13:58-0400 Heart rate 75 /min [facility] Work Phone: 02-16-2022 13:58-0400 SaO2% (BldA) [Mass fraction] 98 % [facility] Work Phone: 02-16-2022 13:58-0400 Systolic blood pressure 186 mm[Hg] [facility] Work Phone: 02-16-2022 12:46-0400 Body height 162.56 cm [facility] Work Phone: 02-16-2022 12:46-0400 Body mass index (BMI) [Ratio] 22.3 kg/m2 [facility] Work Phone: 02-16-2022 12:46-0400 Body temperature 96.8 [degF] [facility] Work Phone: 02-16-2022 12:46-0400 Body weight 58.96 kg [facility] Work Phone: 02-16-2022 12:46-0400 Respiratory rate 18 /min [facility] Work Phone: 03-22-2020 14:59-0400 Body mass index (BMI) [Ratio] 21.8 kg/m2 Dr. Paola Corona Work Phone: [facility] 03-22-2020 14:59-0400 Body temperature 97.6 [degF] Dr. Paola Corona Work Phone: [facility] 03-22-2020 14:59-0400 Body weight 59.[address] Paola Corona Work Phone: [facility] 03-22-2020 14:59-0400 Diastolic blood pressure 82 mm[Hg] Dr. Paola Corona Work Phone: [facility] 03-22-2020 14:59-0400 Heart rate 74 /min Dr. Paola Corona Work Phone: [facility] 03-22-2020 14:59-0400 Respiratory rate 16 /min Dr. Paola Corona Work Phone: [facility] 03-22-2020 14:59-0400 SaO2% (BldA) [Mass fraction] 98 % Dr. Paola Corona Work Phone: [facility] 03-22-2020 14:59-0400 Systolic blood pressure 162 mm[Hg] Dr. Paola Corona Work Phone: [facility] 08-14-2016 13:23-0400 BMI (Body Mass Index) 22.1 kg/m2 Carlos Bernal MD [facility] Work Phone: 08-14-2016 13:23-0400 Body Temperature 98.1 [degF] [facility] Work Phone: 08-14-2016 13:23-0400 BP Diastolic 89 mm[Hg] [facility] Work Phone: 08-14-2016 13:23-0400 BP Systolic 153 mm[Hg] [facility] Work Phone: 08-14-2016 13:23-0400 BSA (Body Surface Area) 1.64 m2 [facility] Work Phone: 08-14-2016 13:23-0400 Height 163.83 cm [facility] Work Phone: 08-14-2016 13:23-0400 Pulse (Heart Rate) 79 /min [facility] Work Phone: 08-14-2016 13:23-0400 Pulse Oximetry 98 % [facility] Work Phone: 08-14-2016 13:23-0400 Respiratory Rate 16 /min [facility] Work Phone: 08-14-2016 13:23-0400 Weight 59.33 kg [facility] Work Phone: 08-14-2016 13:23040 Weight 59.45 kg [facility] Work Phone: 11-21-2014 13:-0500 Height 163.83 cm [facility] Work Phone: Encounters Encounter Date Encounter Type Care Provider Facility Start: 05-10-2025 ambulatory [facility] Facility:[facility] Start: 05-02-2025 ambulatory [facility] Facility:[facility] Start: 04-24-2025 End: 04-24-[address] Carlos Bernal MD -[facility] Work Phone: Start: 04-24-2025 End: 04-24-[address] Paola Corona MD Work Phone: -[facility] Start: 04-17-2025 End: 04-17-[address] Paola Corona MD Work Phone: -[facility] Scan [facility] Start: 04-17-2025 End: 04-17-[address] Carlos Bernal MD -Cat Scan [facility] Work Phone: Start: 04-17-2025 End: 04-17-2025 ambulatory Carlos Bernal Facility:[facility] Start: 04-12-[address] Carlos Bernal MD [facility] Start: 04-12-2025 End: 04-12-[address] Carlos Bernal MD -[facility] Work Phone: Start: 04-12-2025 End: 04-12-[address] Paola Corona MD Work Phone: [facility] Start: 02-27-2025 End: 02-27-2025 Patient encounter procedure Lela Interiano [employer]PERATOR-C -Laboratory [facility] Start: 02-27-2025 End: 02-27-2025 ambulatory Lela Interiano Facility:[facility] Start: 02-07-2025 ambulatory Riley Mckeon Facility:[facility] Start: 02-07-2025 Non-patient / Non-visit [facility] Jaren [facility] Start: 02-03-2025 ambulatory Riley Mike Facility:[facility] Start: 02-03-2025 Non-patient / Non-visit Dr. Jaren [facility] Start: 02-03-2025 End: 02-03-[address] Riley Mckeon MD -[facility] Work Phone: Start: 02-03-2025 End: 02-03-2025 ambulatory [place] Facility:[facility] Start: 01-11-2025 End: 01-11-[address] Riley Mckeon MD -[facility] Work Phone: Start: 01-11-2025 End: 01-11-2025 ambulatory Riley Mckeon Facility:[facility] Start: 12-20-2024 End: 12-20-[address] Paola Corona MD Work Phone: [facility] Work Phone: Start: 12-20-2024 End: 12-20-[address] Paola Corona MD -Laboratory, [facility] Start: 12-20-2024 End: 12-20-2024 ambulatory Paola Corona Facility:[facility] Start: 10-24-2024 End: 10-24-[address] Paola Corona MD -Laboratory, [facility] Start: 10-24-2024 End: 10-24-2024 ambulatory Pa[facility] Corona [facility] [facility] Start: 10-21-2024 End: 10-21-2024 Patient encounter procedure [facility] Work Phone: Start: 10-21-2024 End: 10-21-2024 ambulatory [facility] [place] [place]: 05-18-2024 End: 05-18-2024 ambulatory Paola Corona Facility:[facility] Start: 05-09-2024 End: 05-09-2024 ambulatory Paola Corona Facility:[facility] Start: 02-04-2024 End: 02-04-[address] Paola Corona Work Phone: [facility] Work Phone: Start: 02-04-2024 End: 02-04-[address] Paola Corona Work Phone: [facility]-Laboratory, Specimen Work Phone: Start: 02-04-2024 End: 02-04-[address] Paola Corona Work Phone: [facility] Work Phone: Start: 12-26-2023 End: 12-26-[address] Paola Corona Work Phone: [facility] Work Phone: Start: 12-10-2023 End: 12-10-[address] Paola Corona Work Phone: [facility] Work Phone: Start: 04-20-2023 End: 04-20-[address] Paola Corona Work Phone: [facility] Work Phone: Start: 04-20-2023 End: 04-20-[address] Paola Corona Work Phone: [facility]-Outpatient Breast Imaging Work Phone: Start: 03-30-[address] Paola dent Work Phone: [facility] Work Phone: Start: 03-23-2023 End: 03-23-[address] Paola Corona Work Phone: [facility] Work Phone: Start: 03-16-2023 End: 03-16-2023 ambulatory [facility] Work Phone: Start: 03-16-2023 End: 03-16-2023 Patient encounter procedure [facility]Laboratory Start: 06-26-2022 End: 06-26-[address] Paola Corona Work Phone: [facility] Work Phone: Start: 06-26-2022 End: 06-26-[address] Paola Corona Work Phone: [facility]-Nuclear Medicine, [facility] Start: 06-13-2022 End: 06-13-[address] Paola Corona Work Phone: [facility] Work Phone: Start: 06-13-2022 End: 06-13-[address] Paola Corona Work Phone: [facility]-Radiology, [place] Start: 06-05-2022 End: 06-05-2022 Emergency department patient visit Dr. Paola Corona Work Phone: [facility]-Emergency Department Start: 04-07-2022 End: 04-07-[address] Paola Corona Work Phone: [facility]-Outpatient Breast Imaging Start: 03-24-2022 End: 03-24-[address] Paola Corona Work Phone: [facility] Start: 03-12-[address] Paola dent Work Phone: [facility] Start: 02-16-2022 End: 02-16-2022 Emergency department patient visit [facility]Emergency Department Procedures Date Procedure Procedure Detail Performing Clinician Start: 04-17-2025 CT of thorax, abdome n and pelvis with contrast Dr. Paola Corona MD Work Phone: Start: 03-22-[address] Paola Corona MD Work Phone: Start: 02-03-2025 Cardiovascular stres s test using pharmacologic stress agent Dr. Poala Corona MD Work Phone: Start: 01-11-2025 Evaluation of diagno stic study results Dr. Paola Corona MD Work Phone: Start: 03-29-2024 Measurement of renal function Dr. Paola Corona MD Work Phone: Comment on above: GFR Calc Start: 02-04-[address] Paola dent Work Phone: Start: 04-20-2023 Screening mammography Juan Manuel Corona Work Phone: Start: 06-26-2022 Radionuclide imaging of liver and/or biliary tract using radioactive isotope Dr. Paola Corona Work Phone: Start: 06-13-2022 Diagnostic radiograp hy of abdomen, decubitus and erect Dr. Paola Corona Work Phone: Start: 06-05-2022 Plain chest X-ray Dr. Indra Corona Work Phone: Start: 04-07-2022 Screening mammography D rAshtyn Corona Work Phone: Start: 02-16-2022 X-ray of chest posteroanterior view Start: 02-18-2017 End: 02-20-2017 *CMP Complete Metabolic Panel Niecy Sainz Alamichelle Work Phone: Start: 02-18-2017 End: 02-20-2017 Lactate dehydrogenase (LDH) Niecy Burrell haywood Work Phone: Start: 02-18-2017 End: 02-20-2017 Magnesium Pemberton Michelle Corona Work Phone: Start: 02-18-2017 End: 02-20-2017 Urate Niecy Corona Work Phone: Start: 02-07-2016 End: 02-07-2016 *CBC with Differential Pember[place] Michelle Corona Work Phone: Start: 02-07-2016 End: 02-07-2016 *CMP Complete Metabolic Panel [place] Michelle Corona Work Phone: Start: 02-07-2016 End: 02-14-2016 Ct abd&pelv 1+ section/regns [place] Michelle Melchormichelle Work Phone: Start: 02-07-2016 End: 02-14-2016 Ct thorax w/o & w/dye Niecy Sainz Alam Work Phone: Start: 02-07-2016 End: 02-07-2016 Lactate dehydrogenase (LDH) Niecy Sainz A haywood Work Phone: Start: 02-07-2016 End: 02-07-2016 Magnesium Pemberton M Alam Work Phone: Start: 02-07-2016 End: 02-07-2016 Urate Pemberton M Alam Work Phone: Start: 07-26-2015 End: 07-26-2015 *CBC with Differential Pemberton M Alam Work Phone: Start: 07-26-2015 End: 07-26-2015 *CMP Complete Metabolic Panel Pemberton M Alam Work Phone: Start: 07-26-2015 End: 07-27-2015 Cancer antigen 125 Pemberton M Alam Work Phone: Start: 07-26-2015 End: 07-26-2015 Lactate dehydrogenase (LDH) Pemberton M A haywood Work Phone: Start: 07-26-2015 End: 07-26-2015 Urate Pemberton M Alam Work Phone: Start: 02-15-2015 End: 02-14-2016 *CBC with Differential Pemberton M Alam Work Phone: Start: 11-13-2014 End: 02-08-2015 *CBC with Differential Pemberton M Alam Work Phone: Start: 11-13-2014 End: 02-08-2015 *CMP Complete Metabolic Panel P[place] Michelle Alam Work Phone: Start: 11-13-2014 End: 02-08-2015 Cancer antigen 125 Pemberton M Alam Work Phone: Start: 11-13-2014 End: 02-08-2015 Lactate dehydrogenase (LDH) Pemberton M A haywood Work Phone: Start: 11-13-2014 End: 02-08-2015 Thyroid stimulating hormone (TSH) Pemberton M Alam Work Phone: Start: 11-13-2014 End: 02-08-2015 Urate Pemberton M Alam Work Phone: Bacteria identified in Blood by Culture Dr. Paola Corona Work Phone: Urine culture Dr. Paola naik Work Phone: Viral antigen assay Dr. Paola Corona Work Phone: Plan of Treatment Date Care Activity Detail Author Start: 06-05-2022 End: 06-05-2022 [facility] Work Phone: Start: 06-05-2022 Blood culture [facility] Work Phone: Start: 02-18-2017 End: 08-14-2016 *CBC w/Diff - oncology ONLY [facility] Work Phone: Start: 02-18-2017 End: 02-20-2017 *CMP Complete Metabolic Panel *CMP Complete Metabolic Panel [facility] Work Phone: Start: 02-18-2017 End: 02-20-2017 Lactate dehydrogenase (LDH) *LDH -LDH (Lactate Dehydrogenase) [facility] Work Phone: Start: 02-18-2017 End: 02-20-2017 Magnesium *Magnesium [facility] Work Phone: Start: 02-18-2017 End: 02-20-2017 Urate *Uric Acid Blood [facility] Work Phone: Start: 08-14-2016 End: 02-14-2016 *CBC with Differential *CBC with Differential [facility] Work Phone: Start: 08-14-2016 End: 02-14-2016 *CMP Complete Metabolic Panel *CMP Complete Metabolic Panel [facility] Work Phone: Start: 08-14-2016 End: 02-14-2016 Lactate dehydrogenase (LDH) *LDH -LDH (Lactate Dehydrogenase) [facility] Work Phone: Start: 08-14-2016 End: 02-14-2016 Urate *Uric Acid Blood [facility] Work Phone: Start: 02-14-2016 End: 02-07-2016 *CBC with Differential *CBC with Differential [facility] Work Phone: Start: 02-14-2016 End: 02-07-2016 *CMP Complete Metabolic Panel *CMP Complete Metabolic Panel [facility] Work Phone: Start: 02-14-2016 End: 02-07-2016 Lactate dehydrogenase (LDH) *LDH -LDH (Lactate Dehydrogenase) [facility] Work Phone: Start: 02-14-2016 End: 02-07-2016 Magnesium *Magnesium [facility] Work Phone: Start: 02-14-2016 End: 02-07-2016 Urate *Uric Acid Blood [facility] Work Phone: Start: 02-07-2016 End: 02-14-2016 Ct abd&pelv 1+ section/regns CT Abdomen and pelvis; without and with contrast [facility] Work Phone: Start: 02-07-2016 End: 02-14-2016 Ct thorax w/o & w/dye CT Chest with and without Contrast [facility] Work Phone: Start: 07-26-2015 End: 07-26-2015 *CBC with Differential *CBC with Differential [facility] Work Phone: Start: 07-26-2015 End: 07-26-2015 *CMP Complete Metabolic Panel *CMP Complete Metabolic Panel [facility] Work Phone: Start: 07-26-2015 End: 07-27-2015 Cancer antigen 125 *CA125 - Cancer Antigen (CA) 125 [facility] Work Phone: Start: 07-26-2015 End: 07-26-2015 Lactate dehydrogenase (LDH) *LDH -LDH (Lactate Dehydrogenase) [facility] Work Phone: Start: 07-26-2015 End: 07-26-2015 Urate *Uric Acid Blood [facility] Work Phone: Start: 02-15-2015 End: 02-14-2016 *CBC with Differential *CBC with Differential [facility] Work Phone: Start: 11-13-2014 End: 02-08-2015 *CBC with Differential *CBC with Differential [facility] Work Phone: Start: 11-13-2014 End: 02-08-2015 *CMP Complete Metabolic Panel *CMP Complete Metabolic Panel [facility] Work Phone: Start: 11-13-2014 End: 02-08-2015 Cancer antigen 125 *CA125 - Cancer Antigen (CA) 125 [facility] Work Phone: Start: 11-13-2014 End: 02-08-2015 Lactate dehydrogenase (LDH) *LDH -LDH (Lactate Dehydrogenase) [facility] Work Phone: Start: 11-13-2014 End: 02-08-2015 Thyroid stimulating hormone (TSH) *TSH [facility] Work Phone: Start: 11-13-2014 End: 02-08-2015 Urate *Uric Acid Blood [facility] Work Phone: Start: 04-04-2013 End: 04-04-2013 *MISC - Miscellaneous Lab Test #1 *MISC - Miscellaneous Lab Test #1 [facility] Work Phone: Start: 04-04-2013 End: 04-04-2013 Histoplasma capsulatum Ab [Presence] in Serum *HISTOPL Histoplasma Antibody [facility] Work Phone: Start: 04-04-2013 End: 04-04-2013 Mycobacterium tuberculosis tuberculin stimulated gamma interferon [Presence] in Blood *QFTBINC Quantiferon TB Gold [facility] Work Phone: Bacteria identified in Blood by Culture Blood Culture [facility] Work Phone: Bacteria identified in Urine by Culture Urine Culture [facility] Work Phone: Blood culture [facility] Work Phone: CA 125 measurement [facility] Work Phone: CA 125 measurement [facility] Cancer Ag 125 [Units/volume] in Serum or Plasma [facility] CBC W Auto Different ial panel - Blood [facility] Work Phone: CBC W Auto Different ial panel - Blood [facility] Comprehensive metabo lic 2000 panel - Serum or Plasma [facility] CT Abdomen and Pelvi s W contrast IV [facility] Work Phone: CT Abdomen and Pelvi s W contrast IV [facility] CT Chest W contrast IV [facility] Work Phone: CT Chest W contrast IV [facility] CT Chest W contrast IV [facility] Patient Education [facility] Work Phone: Patient referral [facility] Work Phone: [facility] Immunizations Immunization Date Immunization Notes Care Provider Fa cility 02-16-2022 tetanus toxoid, redu dee diphtheria toxoid, and acellular pertussis vaccine, adsorbed [facility] 02-14-2021 Covid (Pfizer) [facility] 01-24-2021 Covid (Pfizer) [facility] Payers Date Payer Category Payer Self-pay [id number] 2006 Medicare [id number] 2006 Unknown [id number] [id number] Unknown [id number] 2.16.8 [id number] Unknown [id number] 2.16.8 [id number] Unknown [id number] 2.16.8 [id number] Unknown [id number] 2.16.8 [id number] Unknown [id number] 2.16.8 [id number] Unknown [id number] 2.16.8 [id number] Unknown [id number] 2.16.8 [id number] Unknown [id number] 2.16.8 [id number] Unknown [id number] 2.16.8 [id number] Unknown [id number] 2.16.8 [id number] Unknown [id number] 2.16.8 [id number] Unknown [id number] 2.16.8 [id number] Unknown [id number] 2.16.8 [id number] Unknown [id number] 2.16.8 [id number] Unknown [id number] 2.16.8 [id number] Social History Date Type Detail Facility Start: 02-16-2022 End: 12-26-2023 Tobacco smoking status NHIS Unknown if ever smoked [facility] Start: 03-22-2020 Non-smoker [facility] Start: 1940 Sex Assigned At Female W [facility] Start: 03-12-2024 Tobacco smoking stat us NHIS Never smoked tobacco (finding) [facility] Start: 12-28-2024 Sex Female (finding) [facility] Clinical Notes 10-08-2021 to 04-18-2025 Note Date & Type Note Facility 04-18-2025 Radiology Diagnostic study note [facility] Imaging Services [address] [place], [place] [address] CT Chest, Abd, Pel w/Contrast MR#: [id number] Acct: [id number] Name: LUZ CLANCY Taiwo Rep #: [id number] : 1940 F 85 From: Gregg Barba MD PCP: MARILEE Partida Status: REG CLI Study:CT Chest, Abd, Pel w/Contrast Date of E xam: 04/17/25 Exam# [id number] Ordering Dr: Scot Bernal MD PROCEDURE: CT CHEST, ABD, PEL W/CONTRAST 04/17/2025 REASON FOR EXAM: IV ONLY- HX OF ENDOMETRIAL CA/ELEVTED CANCER MARKE TECHNIQUE: Chest, abdomen and pelvis CT with intravenous contrast. Coronal and Sagittal reconstruction series were provided. One or more dose reduction techniques were used (e.g., Automated exposure control, adjustment of the mA and/or kV according to patient size, use of iterative reconstruction technique. PATIENT PREPARATION: Per protocol ORAL CONTRAST TYPE: None. CONTRAST: Isovue 300 VOLUME: 100 mL RADIATION DOSE SUMMARY: CTDlvol: 30.15 mGy DLP: 834.49 mGycm COMPARISON: None. FINDINGS: CT CHEST: Lower neck: The thyroid gland is normal. There is no supraclavicular lymphadenopathy. Mediastinum: There is a left hilar lymph node measuring 1.5 x 1.2 cm. Heart and Vasculature: The heart size is normal. There is no pericardial effusion. There is calcific vascular disease of the thoracic aorta and coronary arteries. Lungs, airways and pleura: There is a right hilar mass, measuring 7.0 x 4.2 x 3.9 cm extending into the mediastinum between the left mainstem bronchus in the aorta. The mass narrows the bronchus to the lowerlobe of the left lung and abuts the left main pulmonary artery. The mass extends into both the superior segment of the lower lobe of the left lung in the posterior segment of the upper lobe of the left lung. There is a 8 x 7 mm soft tissue density nodulein the anterior medial basal segment of the lower lobe of the left lung. There is linear scarring in the posterior basilar segment of the lower lobe of both lungs and the middle lobe of the right lung. Chest wall: The soft tissues of the chest wall appear unremarkable. There is noaxillary lymphadenopathy. 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 CT ABDOMEN/PELVIS: Liver: Normal. Gallbladder: Normal. Spleen: Normal. Pancreas: Normal. Adrenals: Normal. Kidneys: There are multiple small cortical cysts. Bladder: Normal unenhanced appearance. Reproductive Organs: The uterus is surgically absent. The ovaries are not identified. There is no free fluid in the pelvis. There is no inguinal lymphadenopathy. Bowel: There is moderate sigmoid diverticulosis without diverticulitis. Gastrointestinal tract is otherwise unremarkable. Appendix: Not identified. Lymph nodes: There is no mesenteric, retroperitoneal or pelvic lymphadenopathy. Vasculature: There is mild calcific vascular disease of the abdominal aorta. The inferior vena cava and portal venous system are normal. Peritoneum / Retroperitoneum: There are no abnormal intra or retroperitoneal masses or fluid collections. There is an umbilical hernia containing normal fat measuring 1.4 cm in diameter Bones: There is diffuse degenerative disc disease of the lumbar spine most severe at the L4-5 level. There is mild dextroscoliosis of the lumbar spine. CT/CT Chest, Abd, Pel w/Contrast IMPRESSION: 1. Large left hilar mass as described. This could be primary or metastatic disease. 2. Left hilar lymphadenopathy. 3. Other findings as noted. Reading Location: [id number] CC: MARILEE Interiano; Dr. Carlos Bernal MD ~ Saw Superintendent: Signed [facility] Work Phone: 04-12-2025 Progress note [facility] 04-12-2025 Progress note Note Date/Time April 12, 2025 3:23pm [facility] [address] [address] OFFICE VISIT Date of Service: 04/12/25 1455 MR#: [id number] Acct: [id number] Name: LUZ CLANCY Rep #: [id number] : 1940 From: Carlos Bernal MD Age/Sex: 85/F Location: [facility] Status: Signed HPI Subjective Date of Service 04/12/25 Chief Complaint F/u for endometrial cancer. 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 She had surgery on 11/09/2012. She received 3 cycles of Taxol/Carboplatin followed by XRT and then another 3 cyclesof Taxol/Carboplatin, completed therapy on 08/22/2013. She was found to have lung nodules, one in RUL increased in size to 9mm on 08/17/2017 so was referred for CT guided bx but could not be done. She was monitored with CT and the nodules remained stable. She is on observation, comes in for f/u. [facility] Medical History Tachycardia Diverticulosis Uncontrolled hypertension Cancer Gastric reflux Pulmonary nodule Surgical History History of tubal ligation History of hysterectomy Family History Mother Colon cancer Breast cancer Daughter Thyroid disorder Social History Smoking Status: Never smoker alcohol intake: never Intake Vital Signs 01/11/25 13:26 04/12/25 14:56 Height 5 ft 5 in 5 ft 5 in Weight: 57.408 kg BMI 21.0 BP 171/99 H Blood Pressure Location Rt brachial Position Sitting Respiration 15 Pulse 81 Pulse Source Monitor Pulse Oximetry (%) 99 Oxygen Delivery Method room air Intake Is patient in pain?: No Allergies doxycycline Adverse Reaction (Severe, Verified 04/12/25 15:02) Nausea erythromycin base (Erythromycin Base) Adverse Reaction (Severe, Verified 04/12/25 15:02) Nausea clindamycin Adverse Reaction (Intermediate, Verified 04/12/25 15:02) Thrush Penicillins Adverse Reaction (Intermediate, Verified 04/12/25 15:02) Hives Medications ?Medication ?Instructions ?Recorded ?Confirmed ?Type Calcium Carbonate/Vitamin D 1 tab PO DAILY 08/01/13 History Multivitamins,Therapeutic 1 tab PO DAILY 08/01/1312/06 History lactobacillus combination no.9 4 4,000 mmu cells PO DA NURIS 03/23/23 04/12/25 History billion cell capsule (Adult 50 Plus Probiotic) famotidine 20 mg tablet 20 mg PO QDAY 12/01/2404/12 History (Zantac-360 (famotidine)) metoprolol succinate 50 mg 50 mg PO QDAY #90 tabs 12/0604/12/25 Rx tablet,extended release 24 hr (Toprol XL) levothyroxine 75 mcg tablet 50 mcg PO QDAY 04/12/25 History Have you fallen in the past year?: Yes Central Venous Access Central Venous Access: No Laboratory Tests 03/19/20 03/14/21 03/12/22 12:51 07:43 07:50 WBC 4.2 L 3.8 L Hgb 11.7 L 11.0 L Hct 33.8 L Plt Count 213 212 Sodium 140 Potassium 3.7 Chloride 108 H Carbon Dioxide 25.0 BUN 13 Creatinine 0.83 Glucose 116 H Calcium 9.5 Total Bilirubin 0.40 AST 23 ALT 31 Alkaline Phosphatase 84 Lactate Dehydrogenase 251 H Total Protein 7.2 Albumin 3.7 Globulin 3.5 CA 125 Antigen 11.1 12.2 13.5 03/16/23 03/29/24 03/22/25 09:34 13:56 13:51 WBC Hgb Hct Plt Count Sodium Potassium Chloride Carbon Dioxide BUN Creatinine Glucose Calcium Total Bilirubin AST ALT Alkaline Phosphatase Lactate Dehydrogenase Total Protein Albumin Globulin CA 125 Antigen 21.6 30.7 83.5 H Exam Physical Exam Const alert, oriented x3 and no apparent distress General Appearance: cooperative and comfortable HEENT normocephalic, external ears normal and external nose normal Eyes PERRL, conjunctivae normal and no scleral icterus Neck supple Lymph Lymphatic: no lymphadenopathy noted Chest inspection of chest normal Resp normal respiratory effort and clear to auscultation bilaterally Cardio regular rate, regular rhythm, S1 normal heart sound, S2 normal heart sound and no murmurs GI normal to inspection, nondistended, normoactive bowel sounds no CVA tenderness Back/Spine thoracic and lumbar spine normal to inspection Extremity normal to inspection and no clubbing, cyanosis or edema Skin no rashes or lesions noted Neuro oriented x3, CN's II-XII intact bilaterally, moves all extremities and no focal motor deficits Psych mental status grossly normal Coding Level of Care Code Off vis,est,level 4 Exam Problem Focused Diagnoses Malignant neoplasm of uterus, unspecified site C55 Malignant neoplasm of uterus location: unspecified site of uterus Lung nodule, multiple R91.8 History of endometrial cancer Z85.42 Assessment and Plan Assessment and Plan (1) Uterine cancer: Status: Chronic Qualifiers: Malignant neoplasm of uterus location: unspecified site of uterus Qualified Code(s): C55 - Malignant neoplasm of uterus, part unspecified Comment: CA125 was 83.5 on 03/22/2025. Plan: To repeat CA125. Obtain CT c/a/p to R/O metastatic disease. (2) Lung nodule, multiple: Status: Chronic Comment: Stable. Plan: To obtain CT c to assess lung nodules. (3) History of endometrial cancer: Status: Acute Comment: CA125 is high, need to R/O metastatic disease. Plan: To obtain CT c/a/p Plan Details Follow Up: 2 Weeks Clinical Quality Measures Falls Risk Screening/Assistive Devices Have you fallen in the past year?: Yes 04/12/25 1523 <Electronically signed by Carlos Zambrano> Date _ Carlos Bernal MD Cosigner Signature: Date (if applicable) CC: MARILEE Interiano ~ [facility] Work Phone: 1(928) 137-159404-02-2025 Evaluation note* Diagnosis Onset Date Resolution Status Admit Date Tachycardia acute January 11 1:25pm History of endometrial cancer acute April 12, 2025 2:42pm Lung nodule, multiple chronic Apr 2:42pm Uterine cancer chronic April 12, 2025 2:42pm [facility] Work Phone: 1(195) 624-358804-02-2025 Evaluation note* Diagnosis Onset Date Resolution Status Admit Date Tachycardia acute January 11 1:25pm History of endometrial cancer acute April 12, 2025 2:42pm Lung nodule, multiple chronic Apr 2:42pm Uterine cancer chronic April 12, 2025 2:42pm Pulmonary nodule acute April 3:45pm [facility] Work Phone: 1(506) 885-234804-02-2025 Evaluation note* Diagnosis Onset Date Resolution Status Admit Date Tachycardia acute January 11 1:25pm History of endometrial cancer chroni c April 12, 2025 2:42pm Lung nodule, multiple chronic Jamal y 2024 2:42pm Uterine cancer chronic April 12, 2025 2:42pm Pulmonary nodule acute April 3:45pm Lung mass acute April 24 3:43pm History of endometrial cancer chroni c April 24, 2025 3:43pm Uterine cancer chronic April 24, 2025 3:43pm [facility] Work Phone: [phone] Evaluation note* Diagnosis Onset Date Resolution Status Admit Date Strain of muscle at thorax level resolved October 21 6:19am [facility] Work Phone: [phone] NoteHNO ID: [id number] Author: Seble Vann APRN.MATERIALS SUPERVISOR Service: ? Author Type: Nurse Practitioner Type: Progress Notes Filed: 10/08/2021 8:25 AM Note Text: This note was created using [employer]. Subjective Luz Clancy is a 81 year old female. 81 year old female with PMH GERD presents with complaints of COVID concern. Acute onset of symptoms yesterday. +chills Denies SOB. Denies URI sx. Denies fever or chills. Denies N/V/D. Denies skin rash or lesions. Has had x 2 COVID She had + exposure to COVID on . She is accompanied by her daughter and son in law who are here for same. The history is provided by the patient. No language tutor was used. Illness The current episode started yesterday. The onset was gradual. The problem has been unchanged. The problem is mild. Nothing relieves the symptoms. Nothing aggravates the symptoms. Pertinent negatives include no orthopnea, no fever, no decreased vision, no double vision, no eye itching, no photophobia, no abdominal pain, no constipation, no diarrhea, no nausea, no vomiting, no congestion, no ear discharge, no ear pain, no headaches, no hearing loss, no mouth sores, no rhinorrhea, no sore throat, no stridor, no swollen glands, no muscle aches, no neck pain, no cough, no URI, no wheezing, no rash, no eye discharge, no eye pain and no eye redness. She has been eating and drinking normally. Urine output has been normal. The last void occurred less than 6 hours ago. There were sick contacts at home. She has received no recent medical care. PAST MEDICAL HISTORY Diagnosis Date - Diverticulosis of colon (without mention of hemorrhage) - Esophageal reflux resolved - Family history of malignant neoplasm of gastrointestinal tract - Internal hemorrhoids without mention of complication - Unspecified menopausal and postmenopausal disorder - Uterine cancer (HCC) PAST SURGICAL HISTORY Procedure Laterality Date - COLONOSCOP W/ OR W/O [facility] SPEC 06/17/2006 Colonoscopy - COLONOSCOP W/ OR W/O [facility] SPEC 07/15/11 - COLONOSCOP W/ OR W/O [facility] SPEC 07/17/16 Colonoscopy (needs MAC next time) - EGD W/O OR W/BRUSH/WASH 07/17/16 EGD - LIGATE FALLOPIAN TUBE Tubal ligation - TOTAL ABDOM HYSTERECTOMY 2012 Hysterectomy, PRADEEP ALLERGIES Doxycycline, Emycin [Erythromycin], and Penicillins MEDICATIONS THERAPEUTIC MULTIVITAMIN TAB Take one(1) tablet daily. FAMILY HISTORY Problem Relation Age of Onset - Cancer Mother colon - None Father - None Brother Social History Tobacco Use - Smoking status: Never Smoker - Smokeless tobacco: Not on file Substance Use Topics - Alcohol use: No - Drug use: No Review of Systems Constitutional: Positive for chills. Negative for activity change, appetite change, diaphoresis, fatigue and fever. HENT: Negative for congestion, ear discharge, ear pain, hearing loss, mouth sores, rhinorrhea and sore throat. Eyes: Negative for double vision, photophobia, pain, discharge, redness and itching. Respiratory: Negative for apnea, cough, choking, chest tightness, wheezing and stridor. Cardiovascular: Negative for chest pain, palpitations, orthopnea and leg swelling. Gastrointestinal: Negative for abdominal pain, constipation, diarrhea, nausea and vomiting. Musculoskeletal: Negative for arthralgias, back pain, gait problem and neck pain. Skin: Negative for color change, pallor, rash and wound. Allergic/Immunologic: Negative for environmental allergies, food allergies and immunocompromised state. Neurological: Negative for headaches. Hematological: Negative for adenopathy. Does not bruise/bleed easily. Psychiatric/Behavioral: Negative for agitation and behavioral problems. Objective BP 182/94 Pulse 88 Temp (!) 35.9 ?C (96.7 ?F) Resp 16 Wt 58.1 kg (128 lb) SpO2 97% Physical Exam Vitals and nursing note reviewed. Constitutional: General: She is not in acute distress. Appearance: Normal appearance. She is normal weight. She is not ill-appearing, toxic-appearing or diaphoretic. HENT: Head: Normocephalic and atraumatic. Right Ear: Ear canal and external ear normal. Left Ear: Ear canal and external ear normal. Nose: Nose normal. No congestion or rhinorrhea. Mouth/Throat: Mouth: Mucous membranes are moist. Pharynx: No oropharyngeal exudate or posterior oropharyngeal erythema. Eyes: General: Right eye: No discharge. Left eye: No discharge. Extraocular Movements: Extraocular movements intact. Conjunctiva/sclera: Conjunctivae normal. Pupils: Pupils are equal, round, and reactive to light. Cardiovascular: Rate and Rhythm: Normal rate and regular rhythm. Pulses: Normal pulses. Heart sounds: Normal heart sounds. No murmur heard. No friction rub. Pulmonary: Effort: Pulmonary effort is normal. No respiratory distress. Breath sounds: Normal breath sounds. No stridor. No wheezing, rhonchi or rales. Chest: Chest wall: No tenderness. Abd (more content not included)...[facility] noteNo assessment information availableW[facility] Work Phone: Evaluation note* Diagnosis Onset Date Resolution Status History of endometrial cancer acute Lung nodule, multiple chroni c Uterine cancer chronic [facility] Work Phone: Evaluation note* Diagnosis Onset Date Resolution Status Acute sinusitis acute Cough acute PND (post-nasal drip) acute Increased urinary frequency acute [facility] Work Phone: Reason for referral (narrative)No reason for referral information availableWOhio State East Hospital Work Phone: Summary Purpose Family History No Family History Records Found Relationship Condition Age at Onset Recorded Date/T rocky mother Malignant neoplasm of colon Unknown Malignant neoplasm of breast Unknown daughter Disorder of thyroid Unknown Advance Directives No Advanced Directives Records Found Advance Directive Response Recorded Date/ Time Advance Directives No August 3:25pm Living Will Yes February 16, 2022 12 :59pm Power of Property Clerk Yes February 16, 2022 12:59pm Advance Directive Response Recorded Date/ Time Name of Medical Power of Property Clerk Eva Mccallum February 16, 2022 12:59pm Advance Directives No August 3:25pm Living Will Yes February 16, 2022 12 :59pm Power of Property Clerk Yes February 16, 2022 12:59pm Advance Directive Response Recorded Date/ Time Advance Directives No November 7:49am Living Will Yes November 024 7:49am Power of Property Clerk Yes December 10, 2023 7:49am Advance Directive Response Recorded Date/ Time Advance Directives No November 7:49am Advance Directive Response Recorded Date/ Time Living Will No August 23 013 3:25pm Do you have a Healthcare Power of Property Clerk? No August 23, 2013 3:25pm Advance Directives No November 7:49am Chief Complaint and Reason for Visit Chief Complaint fall, rib pain Chief Complaint fall, rib pain ONC/HEM 1YR LABS PRIOR SCREENING Reason for Visit History of endometri al cancer Lung nodule, multiple Uterine cancer Chief Complaint fall, rib pain ONC/HEM 1YR LABS PRIOR SCREENING NAUSEA Reason for Visit History of endometri al cancer Lung nodule, multiple Uterine cancer Chief Complaint ONC/HEM 1YR LABS PRIOR SCREENING NAUSEA NAUSEA Reason for Visit History of endometri al cancer Lung nodule, multiple Uterine cancer Chief Complaint ONC/HEM 1YR LABS PRIOR SCREENING NAUSEA NAUSEA Nausea Reason for Visit History of endometri al cancer Lung nodule, multiple Uterine cancer Chief Complaint 1YR LABS PRIOR ONC/HEM SCREENING Reason for Visit History of endometri al cancer Lung nodule, multiple Uterine cancer Chief Complaint POSSIBLE SINUS INFEC TION, COUGH 2ND VISIT/COUGH/CHEST CONGESTION uti Reason for Visit Acute sinusitis Cough PND (post-nasal drip) Increased urinary frequency Chief Complaint Admit Date BACK PAIN October 21, 2024 6 :19am Reason for Visit Admit Date Strain of muscle at thorax level October 21, 2024 6:19am Chief Complaint Admit Date Tachycardia (Jolliff) January 11, 2025 1: 25pm SVT February 03, 2025 6:4 7am SVT February 07, 2025 7:4 5am 1YR LABS PRIOR April 12, 2025 2:42p m Reason for Visit Admit Date Tachycardia January 11, 2025 1:25 pm History of endometrial cancer April 12, 2025 2:42pm Lung nodule, multiple April 12, 2025 2:4 2pm Uterine cancer April 12, 2025 2:42p m Chief Complaint Admit Date Tachycardia (Jolliff) January 11, 2025 1: 25pm SVT February 03, 2025 6:4 7am SVT February 07, 2025 7:4 5am 1YR LABS PRIOR April 12, 2025 2:42p m ONC/HEM April 12, 2025 3:45p m Other abnormal tumor markers April 17, 2 025 12:36pm Reason for Visit Admit Date Tachycardia January 11, 2025 1:25 pm History of endometrial cancer April 12, 2025 2:42pm Lung nodule, multiple April 12, 2025 2:4 2pm Uterine cancer April 12, 2025 2:42p m Pulmonary nodule April 12, 2025 3:45p m Chief Complaint Admit Date Tachycardia (Jolliff) January 11, 2025 1: 25pm SVT February 03, 2025 6:4 7am SVT February 07, 2025 7:4 5am 1YR LABS PRIOR April 12, 2025 2:42p m ONC/HEM April 12, 2025 3:45p m Other abnormal tumor markers April 17, 2 025 12:36pm 2WKS NO LABS REVIEW CT April 24, 2025 3 :43pm Reason for Visit Admit Date Tachycardia January 11, 2025 1:25 pm History of endometrial cancer April 12, 2025 2:42pm Lung nodule, multiple April 12, 2025 2:4 2pm Uterine cancer April 12, 2025 2:42p m Pulmonary nodule April 12, 2025 3:45p m Lung mass April 24, 2025 3:43 pm History of endometrial cancer April 24, 2025 3:43pm Uterine cancer April 24, 2025 3:43 pm Additional Source Comments INFORMATION SOURCE (unrecogn ized section and content) DATE CREATED AUTHOR 12/31/2021 [facility] DATE CREATED AUTHOR AUTHOR'S ORGANIZ ATION 05/06/2025 [facility] Goals (unrecognized section and content) Goals may be documented in a n alternate sectionGoals may be documented in an alternate sectionGoals may be documented in an alternate sectionGoals may be documented in an alternate sectionGoals may be documented in an alternate sectionGoals may be documented in an alternate sectionGoals may be documented in an alternate sectionGoals may be documented in an alternate sectionGoals may be documented in an alternate sectionGoals may be documented in an alternate sectionGoals may be documented in an alternate sectionGoals may be documented in an alternate section Care Teams (unrecognized sec tion and content) Team Status: Active Member Role Status Dates Dr. Paola Corona MD Family Provider Active Dr. Paola Corona MD Primary Care Provider Active Team Status: Inactive Member Role Status Dates Dr. Paola Corona MD Primary Care Provider Active Dr. Carlos Bernal MD Attending Provider, Referring Pro vider Active Team Status: Inactive Member Role Status Dates Dr. Paola Corona MD Primary Care Provider, Referrin g Provider Active Dr. Carlos Bernal MD Attending Provider Active Team Status: Active Member Role Status Dates Dr. Paola Corona MD Primary Care Prov ider, Family Provider, Referring Provider Active Dr. Carlos Bernal MD Attending Provider Active Team Status: Inactive Member Role Status Dates Dr. Paola Corona MD Primary Care Prov ider, Attending Provider, Referring Provider Active Team Status: Inactive Member Role Status Dates Dr. Paola Corona MD Primary Care Provider, Referrin g Provider Active Eagle LUKE PA Attending Provider Active Team Status: Inactive Member Role Status Dates Dr. Paola Corona MD Primary Care Provider, Referrin g Provider Active MARILEE Encinas Attending Provider Active Team Status: Inactive Member Role Status Dates Dr. Paola Corona MD Primary Care Provider Active Eagle LUKE PA Attending Provider, Referring Provi annette Active Team Status: Inactive Member Role Status Dates Dr. Paola Corona MD Primary Care Provider Active Start: October 21, 2024 End: October 21, 2024 Dr. Paola Corona MD Referring Provider Active Start: October 21, 2024 End: October 21, 2024 Eagle LUKE PA Attending Provider Active Sta rt: October 21, 2024 End: October 21, 2024 Team Status: Inactive Member Role Status Dates Dr. Paola Corona MD Primary Care Provider Active Start: October 24, 2024 End: October 24, 2024 Dr. Paola Corona MD Attending Provider Active Start: October 24, 2024 End: October 24, 2024 Dr. Paola Corona MD Referring Provider Active Start: October 24, 2024 End: October 24, 2024 Team Status: Inactive Member Role Status Dates Dr. Paola Corona MD Primary Care Provider Active Start: December 20, 2024 End: December 20, 2024 Dr. Paola Corona MD Attending Provider Active Start: December 20, 2024 End: December 20, 2024 Dr. Paola Corona MD Referring Provider Active Start: December 20, 2024 End: December 20, 2024 Team Status: Active Member Role/Relationship Status Dates Lela Interiano STAPLE SHEAR OPERATOR, STAPLE SHEAR OPERATOR-C Primary Care Provider Active Team Status: Inactive Member Role/Relationship Status Dates Dr. Paola Corona MD Primary Care Provider Active Start: December 20, 2024 End: December 20, 2024 Dr. Paola Corona MD Attending Provider Active Start: December 20, 2024 End: December 20, 2024 Dr. Paola Corona MD Referring Provider Active Start: December 20, 2024 End: December 20, 2024 Team Status: Inactive Member Role/Relationship Status Dates Dr. Paola Corona MD Primary Care Provider Active Start: January 11, 2025 End: January 11, 2025 Dr. Paola Corona MD Referring Provider Active Start: January 11, 2025 End: January 11, 2025 Dr. Riley Mckeon MD Attending Provider Active S tart: January 11, 2025 End: January 11, 2025 Team Status: Inactive Member Role/Relationship Status Dates Dr. Paola Corona MD Primary Care Provider Active Start: February 03, 2025 End: February 03, 2025 Dr. Riley Mckeon MD Attending Provider Active S tart: February 03, 2025 End: February 03, 2025 Dr. Riley Mkceon MD Referring Provider Active S tart: February 03, 2025 End: February 03, 2025 Team Status: Active Member Role/Relationship Status Dates Dr. Paola Corona MD Primary Care Provider Active Start: February 03, 2025 Dr. Riley Mckeon MD Attending Provider Active S tart: February 03, 2025 Team Status: Active Member Role/Relationship Status Dates Dr. Paola Corona MD Primary Care Provider Active Start: February 07, 2025 Dr. Riley Mckeon MD Attending Provider Active S tart: February 07, 2025 Dr. Riley Mckeon MD Referring Provider Active S tart: February 07, 2025 Dr. Riley Mckeon MD Other Provider Active Start : February 07, 2025 Team Status: Inactive Member Role/Relationship Status Dates Lela Interiano STAPLE SHEAR OPERATOR, STAPLE SHEAR OPERATOR-C Primary Care Provider Active Start: February 27, 2025 End: February 27, 2025 Lela Interiano STAPLE SHEAR OPERATOR, STAPLE SHEAR OPERATOR-C Attending Provider Active S tart: February 27, 2025 End: February 27, 2025 Lela Interiano STAPLE SHEAR OPERATOR, STAPLE SHEAR OPERATOR-C Referring Provider Active S tart: February 27, 2025 End: February 27, 2025 Team Status: Inactive Member Role/Relationship Status Dates Dr. Carlos Bernal MD Attending Provider Active S tart: April 12, 2025 End: April 12, 2025 Lela Interiano STAPLE SHEAR OPERATOR, STAPLE SHEAR OPERATOR-C Primary Care Provider Active Start: April 12, 2025 End: April 12, 2025 Lela Interiano STAPLE SHEAR OPERATOR, STAPLE SHEAR OPERATOR-C Referring Provider Active S tart: April 12, 2025 End: April 12, 2025 Team Status: Inactive Member Role/Relationship Status Dates Dr. Paola Corona MD Primary Care Provider Active Start: January 11, 2025 End: January 11, 2025 Dr. Paola Corona MD Referring Provider Active Start: January 11, 2025 End: January 11, 2025 Dr. Riley Mckeon MD Attending Provider Active S tart: January 11, 2025 End: January 11, 2025 Team Status: Inactive Member Role/Relationship Status Dates Dr. Paola Corona MD Primary Care Provider Active Start: February 03, 2025 End: February 03, 2025 Dr. Riley Mckeon MD Attending Provider Active S tart: February 03, 2025 End: February 03, 2025 Dr. Riley Mckeon MD Referring Provider Active S tart: February 03, 2025 End: February 03, 2025 Team Status: Active Member Role/Relationship Status Dates Dr. Paola Corona MD Primary Care Provider Active Start: February 03, 2025 Dr. Riley Mckeon MD Attending Provider Active S tart: February 03, 2025 Team Status: Active Member Role/Relationship Status Dates Dr. Paola Corona MD Primary Care Provider Active Start: February 07, 2025 Dr. Rliey Mckeon MD Attending Provider Active S tart: February 07, 2025 Dr. Riley Mckeon MD Referring Provider Active S tart: February 07, 2025 Dr. Riley Mckeon MD Other Provider Active Start : February 07, 2025 Team Status: Inactive Member Role/Relationship Status Dates Lela Interiano STAPLE SHEAR OPERATOR, STAPLE SHEAR OPERATOR-C Primary Care Provider Active Start: February 27, 2025 End: February 27, 2025 Lela Interiano STAPLE SHEAR OPERATOR, STAPLE SHEAR OPERATOR-C Attending Provider Active S tart: February 27, 2025 End: February 27, 2025 Lelalita Interiano STAPLE SHEAR OPERATOR, STAPLE SHEAR OPERATOR-C Referring Provider Active S tart: February 27, 2025 End: February 27, 2025 Team Status: Inactive Member Role/Relationship Status Dates Dr. Carlos Bernal MD Attending Provider Active S tart: April 12, 2025 End: April 12, 2025 Lela Interiano STAPLE SHEAR OPERATOR, STAPLE SHEAR OPERATOR-C Primary Care Provider Active Start: April 12, 2025 End: April 12, 2025 Lela Interiano STAPLE SHEAR OPERATOR, STAPLE SHEAR OPERATOR-C Referring Provider Active S tart: April 12, 2025 End: April 12, 2025 Team Status: Active Member Role/Relationship Status Dates Dr. Paola Corona MD Primary Care Provider Active Start: April 12, 2025 Dr. Paola Corona MD Family Provider Active St art: April 12, 2025 Dr. Paola Corona MD Referring Provider Active Start: April 12, 2025 Dr. Carlos Bernal MD Attending Provider Active S tart: April 12, 2025 Team Status: Inactive Member Role/Relationship Status Dates Lela Interiano NP, STAPLE SHEAR OPERATOR-C Primary Care Provider Active Start: April 17, 2025 End: April 17, 2025 Dr. Carlos Bernal MD Attending Provider Active S tart: April 17, 2025 End: April 17, 2025 Dr. Carlos Bernal MD Referring Provider Active S tart: April 17, 2025 End: April 17, 2025 Team Status: Inactive Member Role/Relationship Status Dates Lela Interiano STAPLE SHEAR OPERATOR, STAPLE SHEAR OPERATOR-C Primary Care Provider Active Start: April 24, 2025 End: April 24, 2025 Lela Interiano NP, STAPLE SHEAR OPERATOR-C Referring Provider Active S tart: April 24, 2025 End: April 24, 2025 Dr. Carlos Bernal MD Attending Provider Active S tart: April 24, 2025 End: April 24, 2025 FOR RECORDS PERTAINING TO PATIENTS WHO ARE OR HAVE BEEN ENROLLED IN A CHEMICAL DEPENDENCY/SUBSTANCEABUSE PROGRAM, SOME INFORMATION MAY BE OMITTED. This clinical summary was aggregated from multiple sources. Caution should be exercised in using it in the provision of clinical care. This summary normalizes information from multiple sources, and as a consequence, information in this document may materially change the coding, format and clinical context of patient data. In addition, data may be omitted in some cases. CLINICAL DECISIONS SHOULD BE BASED ON THE PRIMARY CLINICAL RECORDS. [facility] [employer] [facility]. provides no warranty or guarantee of the accuracy or completeness of information in this document.
[2025-05-10 08:11] LABS: Prothrombin Time (Protime)PT. 13.0 SECONDS (11.7-14.9)
[2025-05-10 08:12] LABS: Partial Thromboplast Time 25.6 Seconds (24.1-36.2)
[2025-05-10] MEDS: 0.9% Saline Lock 10 ML Syringe IV (08:45)
[2025-05-10] MEDS: Midazolam 2 MG/2 ML Syringe IV (09:20)
[2025-05-10] MEDS: fentaNYL 100 MCG/2 ML Ampul IV (09:23)
[2025-05-10] MEDS: Lidocaine 2% (20 ml mdv) 20 ML Vial INFILT (09:41)
--- NOTE | 2025-05-10 10:30 | RAD_ITS ---
EXAM: AP portable upright inspiratory and expiratory chest CLINICAL HISTORY: 1 hour post left lung biopsy. COMPARISON: CT images of earlier the same day TECHNIQUE: AP portable upright inspiratory and expiratory chest no pneumothorax is seen. RAD/Chest Insp/Exp 2 View IMPRESSION: No pneumothorax is seen. No pleural effusion is identified. The left central lung mass is again noted. Minimal left basilar atelectasis is seen. The cardiomediastinal silhouette is otherwise unremarkable; no evidence of card iomegaly. Reading Location: [place] [id number]
--- NOTE | 2025-05-10 12:30 | RAD_ITS ---
EXAM: Two-view AP portable upright inspiratory and expiratory chest CLINICAL HISTORY: 3 hours following left lung CT-guided core biopsy. COMPARISON: Chest x-ray of 2 hours prior. TECHNIQUE: Two-view AP portable upright inspiratory and expiratory chest. RAD/Chest Insp/Exp 2 View IMPRESSION: No pneumothorax is seen. Lungs appear unchanged. No pleural effusion is appreciated. The cardiomediastinal silhouette is stable, without evidence of cardiomegaly. Reading Location: [place] [id number]
== END | disposition home or self-care (01) ==
LOC: CT 07:37
PROVIDERS: Radiology Nuclear Radiology; PCP Nurse Practitioner Family; Referring Provider Internal Medicine Medical Oncology; Visit Provider Internal Medicine Medical Oncology
DX: R91.8 Other nonspecific abnormal finding of lung field (principal); C77.5 Secondary and unspecified malignant neoplasm of intrapelvic lymph nodes; C55 Malignant neoplasm of uterus, part unspecified; Z79.899 Other long term (current) drug therapy; K21.9 Gastro-esophageal reflux disease without esophagitis; I10 Essential (primary) hypertension; R00.0 Tachycardia, unspecified
CPT/HCPCS: 32408; 36415; 71046; 77012; 85025; 85610; 85730; 88305; 88341; 88342; 99156; 99157; A4216

== ENCOUNTER 2025-05-18 17:45 | Inpatient (IN) | payer MEDICARE, BC, SELFPAY ==
[2025-05-18] VITALS (22 sets, daily range): BP systolic 145–164; BP diastolic 86–106; PULSE 114–125; RESP 14–25; TEMP 36.2–37.3; O2SAT 98–100; BMI 21.3; BMI 21.1
--- NOTE | 2025-05-18 18:14 | CT_ITS ---
PROCEDURE: ABDOMEN/PELVIS W IV CONT ONLY 05/18/2025 REASON FOR EXAM: LOWER ABDOMINAL PAIN. Nausea/vomiting today. History of hysterectomy, tubal ligation and hypertension. TECHNIQUE: ABDOMEN/PELVIS W IV CONT ONLY Coronal and Sagittal reconstruction series were provided. CONTRAST: Isovue 370 VOLUME: 70 mL One or more dose reduction techniques were used (e.g., Automated exposure control, adjustment of the mA and/or kV according to patient size, use of iterative reconstruction technique. RADIATION DOSE SUMMARY: CTDlvol: 16.62, 11.46 mGy DLP: 526.50 mGycm FINDINGS: LUNG BASES: Multiple similar-appearing pulmonary nodules again seen bilaterally, the largest is 8.6 mm in the lingula. Right lower lobe calcified granuloma. Mild scattered atelectasis/scarring. LIVER: Unremarkable. GALLBLADDER: Small calcified stone. BILE DUCTS: No ductal dilation. PANCREAS: Unremarkable. SPLEEN: Unremarkable. ADRENAL GLANDS: Unremarkable. KIDNEYS: The kidneys enhance symmetrically. Multiple hypodense lesions bilaterally, the largest is 3.0 cm. Hyperdense 0.4 cm exophytic inferolateral left renal lesion, possibly a complex. No hydronephrosis or hydroureter. STOMACH AND BOWEL: Mildly prominent small bowel loops with air-fluid levels and adjacent mesenteric stranding and fluid. No definite small bowel transition point seen. Fluid present in the ascending and transverse colon. No perforation. No wall thickening. Colonic diverticulosis. No CT evidence of colitis or acute diverticulitis. APPENDIX: Normal-appearing appendix. No CT evidence for appendicitis. RETRO/PERITONEUM: Mild mesenteric and pelvic fluid. No free air or focal fluid collections. LYMPH NODES: No lymphadenopathy. PELVIC ORGANS: Unremarkable urinary bladder. Prior hysterectomy. VASCULATURE: No aortic aneurysm. Mild scattered calcified atherosclerosis. ABDOMINAL WALL AND SOFT TISSUES: Small fat-containing infraumbilical hernia.. BONES: No fracture or suspicious osseous abnormality. Degenerative changes of the spine. CT/Abdomen/Pelvis W IV Cont ONLY IMPRESSION: 1. Mildly prominent small bowel loops with air-fluid levels, likely acute ente ritis or an ileus. No definite transition point seen, however early/partial SBO is not excluded. 2. Colonic diverticulosis without signs of diverticulitis. 3. Small hyperdense left renal lesion, may represent a complex cyst. 4. Bilateral pulmonary nodules, with no significant change since the prior migdalia dy Reading Location: [id number]
--- NOTE | 2025-05-18 18:17 | EX.ED.DYSGE1 ---
HPI History of Present Illness Chief Complaint: Abd Pain Narrative Narrative: Chief complaint and HPI: Lower abdominal pain. 85-year-old female with past medical history of diverticulosis, GERD, hypothyroidism, HTN presents for evaluation of lower abdominal pain. Patient states yesterday she began feeling nauseous. Today began having lower abdominal pain with vomiting. Nonbloody. She denies any fever, chills, shortness of breath, chest pain, diarrhea, constipation, dysuria. States she feels bloated. Denies any abdominal surgeries. Review of systems: See HPI Medications: As listed on the chart Allergies: As listed on the chart PFSH: Per chart Vital signs: As listed on the chart. Reviewed. Physical exam: Gen: A&O x3, NAD Head: Normocephalic, atraumatic Eyes: No sclera icterus, conjunctiva clear ENT: Moist mucous membranes Neck: Trachea midline, No JVD CV: RRR, no murmurs, no peripheral edema Resp: Lungs CTA BL, no w/r/c GI: Abd soft, non-distended, mildly tender to palpation in the bilateral lower quadrant, no r/r/g : No CVA tenderness Musc: Full ROM, no deformity Skin: Warm, dry Neuro: Alert, oriented, grossly intact, sensation intact Psych: Cooperative, appropriate mood and affect [facility] Medical History Tachycardia Diverticulosis Uncontrolled hypertension Cancer Gastric reflux Pulmonary nodule Home Medications ?Medication ?Instructions ?Recorded ?Last Taken ?Type Calcium Carbonate/Vitamin D 1 tab PO DAILY 08/01/13 08/25/17 History Multivitamins,Therapeutic 1 tab PO DAILY 08/01/13 08/25/17 History lactobacillus combination no.9 4 4,000 mmu cells PO DAILY 03/23/23 Unknown History billion cell capsule (Adult 50 Plus Probiotic) famotidine 20 mg tablet 20 mg PO QDAY 12/01/24 Unknown History (Zantac-360 (famotidine)) metoprolol succinate 50 mg 50 mg PO QDAY #90 tabs 01/11/25 Unknown Rx tablet,extended release 24 hr (Toprol XL) levothyroxine 75 mcg tablet 50 mcg PO QDAY 04/12/25 Unknown History Allergy/AdvReac Type Severity Reaction Status Date / Time doxycycline AdvReac Severe Nausea Verified 05/18/25 17:46 erythromycin base AdvReac Severe Nausea Verified 05/18/25 17:46 (Erythromycin Base) clindamycin AdvReac Intermediate Thrush Verified 05/18/25 17:46 Penicillins AdvReac Intermediate Hives Verified 05/18/25 17:46 Family History Mother Colon cancer Breast cancer Daughter Thyroid disorder Surgical History History of tubal ligation History of hysterectomy Social History household members: none Smoking Status: Never smoker alcohol intake: never substance use type: does not use EXAM Physical Exam Const Vital Signs: 05/18/25 17:46 05/18/25 18:48 05/18/25 19:20 Temperature 98.4 F 98.1 F Temperature Source Oral Oral Pulse Rate 125 H 122 H 117 H Respiratory Rate 20 H 20 H 19 H Blood Pressure 164/106 H 159/106 H Blood Pressure Mean 125 123 Pulse Ox 100 100 99 Oxygen Delivery Method Room Air Room Air 05/18/25 19:30 05/18/25 19:45 05/18/25 19:55 Temperature 99.1 F Temperature Source Oral Pulse Rate 114 H 118 H 120 H Respiratory Rate 21 H 21 H 20 H Blood Pressure 149/97 H 149/97 H Blood Pressure Mean 114 114 Pulse Ox 99 99 100 Oxygen Delivery Method Room Air 05/18/25 19:55 05/18/25 20:00 05/18/25 20:05 Temperature Temperature Source Pulse Rate 117 H Respiratory Rate 17 Blood Pressure 149/97 H 154/89 H 151/89 H Blood Pressure Mean 115 108 108 Pulse Ox 100 Oxygen Delivery Method 05/18/25 20:10 05/18/25 20:15 05/18/25 20:20 Temperature Temperature Source Pulse Rate 117 H 116 H 118 H Respiratory Rate 18 22 H 19 H Blood Pressure 147/89 H 148/86 H 148/103 H Blood Pressure Mean 107 104 118 Pulse Ox 99 98 100 Oxygen Delivery Method 05/18/25 20:25 05/18/25 20:30 05/18/25 20:35 Temperature Temperature Source Pulse Rate 116 H 117 H Respiratory Rate 24 H 25 H Blood Pressure 152/91 H 149/88 H 153/89 H Blood Pressure Mean 111 107 108 Pulse Ox 100 99 Oxygen Delivery Method 05/18/25 20:40 05/18/25 20:45 05/18/25 20:50 Temperature Temperature Source Pulse Rate 115 H 115 H Respiratory Rate 18 17 Blood Pressure 154/89 H 152/89 H 150/88 H Blood Pressure Mean 109 107 106 Pulse Ox 98 100 Oxygen Delivery Method 05/18/25 21:00 05/18/25 21:00 05/18/25 21:15 Temperature 98.4 F Temperature Source Oral Pulse Rate 119 H 123 H 119 H Respiratory Rate 20 H 22 H 21 H Blood Pressure 151/99 H Blood Pressure Mean 116 Pulse Ox 100 100 100 Oxygen Delivery Method Room Air 05/18/25 21:30 Temperature Temperature Source Pulse Rate 122 H Respiratory Rate 14 Blood Pressure Blood Pressure Mean Pulse Ox 98 Oxygen Delivery Method MDM MDM MDM Narrative Medical decision making narrative: 85-year-old female with past medical history of diverticulosis, GERD, hypothyroidism, HTN presents for evaluation of lower abdominal pain. Patient states yesterday she began feeling nauseous. Today began having lower abdominal pain with vomiting. Nonbloody. Differential diagnosis includes but not limited to viral gastroenteritis, diverticulitis, appendicitis, electrolyte abnormality, UTI, pancreatitis, biliary pathology. NS bolus, morphine, Zofran ordered for symptoms. Abdominal pain workup ordered including CT abdomen pelvis. CBC with leukocytosis of 14.2. No anemia. CMP shows mild hyponatremia at 132 with anion gap of 20. Patient has no ERNIE or renal insufficiency. Her glucose is 152. Lactic acid unremarkable. Suspect abnormalities are likely from dehydration from nausea and vomiting. Another NS bolus ordered. Will order another BMP. CMP shows mild AST elevation. Lipase unremarkable. UA positive for ketones but negative for UTI or glucose. CT abdomen pelvis shows mildly prominent small bowel loops with air-fluid levels, likely acute enteritis or ileus. No definitive transition point seen however early/partial SBO not excluded. Patient has never had abdominal surgeries, not high risk for an SBO. diverticulosis without diverticulitis. Small hyperdense left renal lesion, may represent a complex cyst. Bilateral pulmonary nodules without significant change. Given the findings, I did reach out to Dr. Lerner. No further recommendations. On reevaluation, patient is still tachycardic and endorsing nausea. Reglan ordered. Will reassess. On assessment, patient has received about 1500 mL of fluid, she is still tachycardic in the 120s. EKG ordered. EKG shows wide QRS tachycardia. Left bundle branch block. Heart rate 122. This was personally reviewed and interpreted by me. Given patient's continued tachycardia, nausea, and dehydration, I do think that patient would benefit from admission for observation and continued hydration. I spoke with Dr. Cates, the hospitalist service. Recommends NG be placed to see if this helps with symptoms. Recommended metoprolol for the tachycardia. Metoprolol was ordered. I did speak with the patient about placing an NG tube. Since she is not actively vomiting she would like to hold off at this time. Patient will be admitted. Impression: 1. Nausea and vomiting, enteritis versus ileus versus early small bowel obstruction 2. Dehydration secondary to #1 Lab Data Labs: Laboratory Results - last 24 hr 05/18/25 05/18/25 05/18/25 17:55 18:57 19:10 WBC 14.2 H RBC 4.35 Hgb 12.2 Hct 37.0 MCV 85.1 MCH 28.0 MCHC 33.0 RDW Std Deviation 41.1 RDW Coeff of Karthikeyan 13.2 Plt Count 364 MPV 11.9 Immature Gran % (Auto) 0.200 Neut % (Auto) 91.6 H Lymph % (Auto) 3.3 L [place] % (Auto) 4.6 Eos % (Auto) 0.0 Baso % (Auto) 0.3 Absolute Neuts (auto) 13.0 H Absolute Lymphs (auto) 0.47 L Nucleated RBC % 0 Sodium 132 L Potassium 4.0 Chloride 94 L Carbon Dioxide 18.0 L Anion Gap 20 H BUN 15 Creatinine 0.78 Estim Creat Clear Calc 47.10 L Est GFR (MDRD) Non-Af 75 BUN/Creatinine Ratio 19.4 Glucose 152 H Lactic Acid 1.9 Calcium 10.1 Total Bilirubin 0.54 AST 44 H ALT 16 Alkaline Phosphatase 93 Total Protein 8.6 H Albumin 4.5 Globulin 4.1 Albumin/Globulin Ratio 1.1 Lipase 32 Urine Color Straw Urine Clarity Sl. Cloudy Urine pH 7.0 Ur Specific [place] 1.010 Urine Protein 30 H Urine Glucose (UA) Normal Urine Ketones 15 H Urine Occult Blood 25 H Urine Nitrite Negative Urine Bilirubin Negative Urine Urobilinogen Normal Ur Leukocyte Esterase 100 H Urine RBC 0-5 SEEN Urine WBC 0-5 SEEN Ur Squamous Epith Cells 0-5 SEEN Urine Bacteria 0 SEEN Urine Mucus 0 SEEN Radiography Diagnostic Testing: Clinical Impression(s) from Imaging Studies Abdomen/Pelvis CT 05/18/25 18:14 IMPRESSION: 1. Mildly prominent small bowel loops with air-fluid levels, likely acute enteritis or an ileus. No definite transition point seen, however early/partial SBO is not excluded. 2. Colonic diverticulosis without signs of diverticulitis. 3. Small hyperdense left renal lesion, may represent a complex cyst. 4. Bilateral pulmonary nodules, with no significant change since the prior study Reading Location: [facility] Discharge Plan Triage Chief Complaint: Abd Pain ED Provider: Jeffery Mcclain Dx/Rx/DC Orders Prescriptions: No Action Adult 50 Plus Probiotic 4 billion cell capsule 4,000 mmu cells PO DAILY Rx Instructions: administer with a meal famotidine [Zantac-360 (famotidine)] 20 mg tablet 20 mg PO QDAY metoprolol succinate [Toprol XL] 50 mg tablet extended release 24 hr 50 mg PO QDAY Qty: 90 3RF levothyroxine 75 mcg tablet 50 mcg PO QDAY Multivitamins,Therapeutic tablet 1 tab PO DAILY Calcium Carbonate/Vitamin D tablet 1 tab PO DAILY Primary Care Provider: Lela Interiano NP Referrals: Lela Interiano NP, [employer] [employer] [facility] [Primary Care Provider] - Print Language: [place]
--- OUTSIDE RECORDS SUMMARY | 2025-05-18 18:31 | XMS RPT_ITS | CCD ---
Author Organization [facility] Care Team Providers Care Administrative Support Assistant Name Role Phone Carlos Bernal MD Unavailable [...] Provider Dr. Riley Mckeon MD Referring Provider Mike SANTIAGO, Dr. Lin Other Provider Jaydon MULTIPLEX OPERATOR-C, Lela Primary Care Provider Jaydon MULTIPLEX OPERATOR-C, Lela Attending Provider Jaydon MULTIPLEX OPERATOR-C, Lela Referring Provider Dolores SANTIAGO, Dr. Gonzalez Attending Provider Chloe SANTIAGO, Dr. Paola Lebron Primary Care Provider Chloe SANTIAGO, Dr. Paola Lebron Referring Provider Dolores SANTIAGO, Dr. Gonzalez Referring Provider Chloe SANTIAGO, Dr. Paola Lebron Primary Care Provider Mike SANTIAGO, Dr. Lin Attending Provider Chloe SANTIAGO, Dr. Paola Lebron Referring Provider Christian SANTIAGO, Dr. Torres Other Provider Unavailabl e Jhon MULTIPLEX OPERATOR-C, Laney Attending Provider Jolliff, Paola S Referring Unavailable Jolliff, Paola S Attending Unavailable Jolliff, Paola S Primary Care Unavailable Jolliff, Paola S Primary Care Unavailable Jolliff, Paola S Referring Unavailable Jolliff, Paola S Attending Unavailable Jolliff, Paola S Primary Care Unavailable Jolliff, Paola S Referring Unavailable Jolliff, Paola S Attending Unavailable Mike, Riley Referring Unavailable Mike, Normangee Attending Unavailable Jolliff, Paola S Primary Care Unavailable Carlos Bernal Attending Unavailable Jaydon MULTIPLEX OPERATOR, Lela Primary Care Unavailable Jaydon MULTIPLEX OPERATOR, Lela Referring Unavailable Mike, Riley Attending Unavailable Jolliff, Paola S Primary Care Unavailable Mike, Normangee Referring Unavailable Mike, Riley Attending Unavailable Mike, Normangee Consulting Unavailable Jolliff, Paola S Primary Care Unavailable Laney Ferreira NP Attending Unavailable Jaydon MULTIPLEX OPERATOR, Lela Primary Care Unavailable Jolliff, Paola S Referring Unavailable Eagle E[place]anks Attending Unavailable Jolliff, Paola S Referring Unavailable Jolliff, Paola S Primary Care Unavailable Mike, Riley Attending Unavailable Jolliff, Paola S Primary Care Unavailable Jolliff, Paola S Referring Unavailable Jaydon MULTIPLEX OPERATOR, Lela Referring Unavailable Jaydon MULTIPLEX OPERATOR, Lela Primary Care Unavailable Carlos Bernal Attending Unavailable Jaydon MULTIPLEX OPERATOR, Lela Referring Unavailable Jaydon MULTIPLEX OPERATOR, Lela Attending Unavailable Jaydon MULTIPLEX OPERATOR, Lela Primary Care Unavailable Carlos Bernal Attending Unavailable Jaydon MULTIPLEX OPERATOR, Lela Primary Care Unavailable Brian Gonzales Unavailable Carlso Bernal Referring Unavailable Carlos Bernal Attending Unavailable Paola Corona S Primary Care Unavailable Paola Corona S Referring Unavailable Jaydon MULTIPLEX OPERATOR, Lela Primary Care Unavailable Carlos Bernal Referring Unavailable Carlos Bernal Attending Unavailable Allergies Allergy Classification Reported Allergen(s) Allergy Type Date of Onset Reaction(s) Facility (15 sources) doxycycline; Translations: [doxycycline] drug allergy 2 Nausea [facility] Work Phone: (1 source) erythromycin drug allergy [facility] Work Phone: (13 sources) Erythromycin Drug Allergy 2 [facility] (14 sources) Penicillins; Translations: [Penicillins] Propensity to adverse reactions 2 [facility] (4 sources) Clindamycin Drug Allergy 5 [facility] (1 source) Clindamycin Drug Allergy 5 [facility] (1 source) Erythromycin Drug Allergy 5 [facility] Medications Current Medications Medication Drug Class(es) [...] mouth three times daily CALCIUM CARBONATE-VITAMIN D [id number] Selina Schmitz LPN Calcium Carbonate/Vitamin D tablet (5 sources) Start: 08-01-2013 Calcium Carbonate/Vitamin D tablet Active 1 {tbl} PO DAILY August 01, 2013 12:00am famotidine 20 mg oral tablet (5 sources) Histamine-2 Receptor Antagonist Start: 12-01-2024 take 1 tablet by mouth once daily Famotidine (Zantac-360 (Famotidine)) 20 mg tablet Active 20 mg PO daily December 01, 2024 1:00am Lactobacillus Combination No.9 (Adult 50 Plus Probiotic) 4 billion cell capsule (7 sources) Start: 03-23-2023 take 4 capsules by [...] meal levothyroxine sodium 0.075 mg oral tablet (8 sources) l-Thyroxine Start: 04-12-2025 Levothyroxine 75 mcg tablet Active 50 ug PO daily April 12, 2025 3:02pm Start: 01-11-2025 End: 04-12-2025 take 1 tablet by mouth once daily Levothyroxine 75 mcg tablet Discontinued 75 ug PO daily January 11, 2025 12:00am April 12, 2025 3:02pm 24 hr metoprolol succinate 50 mg extended release oral tablet (4 sources) beta-Adrenergic Pinky Start: 01-11-2025 take 1 [...] August 01, 2013 12:00am Multivitamins,Therapeutic ta blet (5 sources) Start: 08-01-2013 Multivitamins, Therapeutic tablet Active 1 {tbl} PO DAILY August 01, 2013 12:00am Completed/Discontinued Medications Medication Drug Class(es) Dates Sig (Normalized) Sig (Original) calcium carbonate 500 mg chewing gum (1 source) TUMS 500 MG CHEW Use as directed as needed CALCIUM CARBONATE ANTACID [id number] Selina Ainsley PIECER cephalexin 500 mg oral capsule (6 sources) Cephalosporin Antibacterial Start: 12-10-2023 End: 12-20-2023 take 1 capsule by mouth every twelve hours Cephalexin 500 mg capsule Discontinued 500 mg PO Q12H 20 10 December 10, 2023 1:00am December 19, 2023 1:00am December 20, 2023 1:04am clindamycin 300 mg oral capsule (6 sources) Lincosamide Antibacterial Start: 02-08-2024 End: 04-05-2024 take 1 capsule by mouth three times daily Clindamycin Hcl 300 mg capsule Discontinued 300 mg PO THREE TIMES A DAY February 08, 2024 12:00am April 05, 2024 2:55pm MULTIPLE VITAMIN (1 source) take 1 tablet by mouth once daily MULTIVITAMINS TABS One tablet by mouth daily MULTIPLE VITAMIN [id number] Selina Lealedward RAMIREZ Nystatin 100,000 unit/mL suspension (5 sources) Start: 02-24-2024 End: 03-23-2024 take 1 dose by mouth four times daily Nystatin 100,000 unit/mL suspension Discontinued 4 mL PO .qid 473 28 0 February 24, 2024 12:00am March 22, 2024 [...] omeprazole 20 mg delayed release oral capsule (13 sources) Proton Pump Inhibitor Start: 02-16-2022 End: 03-23-2023 take 1 capsule by mouth once daily Omeprazole 20 mg capsule,delayed release(DR/EC) Discontinued 20 mg PO DAILY February 16, 2022 12:00am March 23, 2023 1:27pm ondansetron 4 mg disintegrating oral tablet (11 sources) Serotonin-3 Receptor Antagonist Start: 06-05-2022 End: 03-23-2023 take 1 tablet by mouth every eight hours as needed for nausea and vomiting Ondansetron 4 mg tablet,disintegratin g Discontinued 4 mg PO Q8H as needed for nausea and vomiting 14 0 June 05, 2022 12:00am March 23, 2023 1:27pm promethazine hydrochloride 25 mg oral tablet (2 sources) Phenothiazine End: 04-04-2013 take 1 tablet by mouth every six hours as needed for nausea PROMETHAZINE HCL 25 MG TABS One tablet by mouth every 6 hours as needed for nausea PROMETHAZINE HCL [id number] Selina Ainsley RAMIREZ psyllium 3400 mg powder for oral suspension (14 sources) Start: 08-02-2013 End: 12-01-2024 take 1 [...] 1/2 tsp with water once daily PSYLLIUM [id number] Selina Ainsley RAMIREZ vitamin b6 100 mg oral table t (15 sources) Start: 08-02-2013 End: 02-18-2017 Pyridoxine Hcl (Vitamin B-6) 100 MG tablet Discontinued 50 mg PO TWICE A DAY August 02, 2013 12:00am February 18, 2017 1:35pm End: 11-21-2014 take 1 tablet by mouth twice daily VITAMIN B-6 50 MG TABS One tablet by mouth twice daily PYRIDOXINE HCL [id number] Selina Ainsley RAMIREZ Problems Active Problems Problem Classification Problem Date Documented Date Episodic/Chronic Abdominal pain (13 sources) Right upper quadrant pain; Translations: [Right [...] is high.CT on 04/17/2025 shows Lung mass Diverticulosis and diverticulitis (13 sources) Diverticular disease; Translations: [Diverticulosis of intestine, part unspecified, without perforation or abscess without bleeding] 05-02-2021 Chronic E Codes: Fall (18 sources) Fall; Translations: [Unspecified fall, initial encounter] 02-24-2022 Episodic Esophageal disorders (5 sources) Gastric reflux; Translations: [Gastro-esophageal reflux disease without esophagitis] 12-01-2024 Chronic Essential hypertension (7 sources) Hypertensive disorder; Translations: [Essential (primary) hypertension] Onset: 01-11-2025 02-24-2024 Chronic Genitourinary symptoms and ill-defined conditions (7 sources) Increased frequency of urination; Translations: [Frequency of micturition] 02-04-2024 Episodic Influenza (6 sources) Influenza due to Influenza A virus; Translations: [Influenza due to other identified influenza virus with other respiratory manifestations] 12-10-2023 Episodic Malignant neoplasm without specification of site (5 sources) Malignant neoplastic disease; Translations: [Malignant (primary) neoplasm, unspecified] 12-01-2024 Chronic Comment on above: Uterine CA 2013 chem o and radiation complete Mycoses (5 sources) Candidiasis of mouth; Translations: [Candidal stomatitis] 12-01-2024 Episodic Other injuries and conditions due to external causes (4 sources) Other specified injuries of thorax, initial encounter; Translations: [Contusion of rib on right side] 02-24-2022 Episodic Other lower respiratory disease (5 sources) Lung mass; Translations: [Other nonspecific abnormal finding of lung field] 03-24-2013 Episodic Other lower respiratory disease (17 sources) Multiple nodules of lung; Translations: [Other nonspecific abnormal finding of lung field] 03-21-2021 Episodic Comment on above: Stable. Other lower respiratory disease (7 sources) Other nonspecific abnormal finding of lung field; Translations: [Other nonspecific abnormal finding of lung field] Onset: 04-12-2025 Episodic Other lower respiratory disease (7 sources) Cough; Translations: [Cough] 12-26-2023 Episodic Other lower respiratory disease (8 sources) Nodule of lung; Translations: [Solitary pulmonary nodule] 12-01-2024 Episodic Comment on above: right upper lobe Other screening for suspected conditions (not mental disorders or infectious disease) (2 sources) Other abnormal tumor markers; Translations: [Abnormal electrocardiogram [ECG] [EKG]] Onset: 02-14-2025 Episodic Other upper respiratory infections (14 sources) Posterior rhinorrhea; Translations: [Postnasal drip] 12-26-2023 Episodic Sprains and strains (11 sources) Strain of muscle at thorax level; Translations: [Strain of muscle and tendon of unspecified wall of thorax, initial encounter] 12-01-2024 Episodic Superficial injury; contusion (20 sources) Contusion of rib; Translations: [Contusion of right front wall of thorax, initial encounter] 02-24-2022 Episodic Thyroid disorders (1 source) Hypothyroidism, unspecified; Translations: [Hypothyroidism, unspecified] Onset: 03-03-2025 Chronic Unclassified (15 sources) Family history of cancer of colon; Translations: [Family history of malignant neoplasm of breast] 11-21-2014 Episodic Unclassified (1 source) Supraventricular tachycardia, unspecified; Translations: [Supraventricular tachycardia, unspecified] Onset: 02-14-2025 Past or Other Problems Problem Classification Problem Date Documented Date Episodic/Chronic Cardiac dysrhythmias (11 sources) Tachycardia; Translations: [Tachycardia, unspecified] Onset: 01-11-2025 12-01-2024 Episodic Nausea and vomiting (14 sources) Nausea; Translations: [Nausea] Onset: 06-14-2024 07-16-2022 [...] Test Name Value Interpretation Reference Range Facility Cardiology Visit Reporton Cardiology Visit Report [facility] [address] [place] [address] OFFICE VISIT Date of Service: 05/16/25 MR#: [id number] Acct: [id number] Name: LUZ CLANCY Rep #: [id number] : 1940 Provider: MARILEE sierra Age/Sex: 85/F Location: [facility] Status: Signed HPI HPI History of Present Illness Details: Pleasant 85-year-old lady who presents today for a cardiovascular follow-up visit. She was previously evaluated for tachycardia. She said that she had been [...] us for further evaluation and management. She underwent a stress test on 02/07/2025 which was negative for ischemia. Her echocardiogram at that time demonstrated ejection fraction of 60%, with mild mitral valve prolapse, mild eccentric mitral valve insufficiency. She was started on metoprolol succinate 50 mg daily at her previous office visit. From a cardiac standpoint, the patient is doing well. She denies any palpitations, chest pain, pressure or heaviness. She denies SOB, Orthopnea, and PND. She does not have bleeding issues; no blood in urine, stool, or nosebleeds. She denies any decrease in energy level, myalgias, or claudication. She does not have edema, or sudden weight gain. She denies lightheadedness, dizziness, syncopal or near syncopal episodes, and headaches. Her blood pressures at home average 123/70- 130/75. She states her blood pressure is elevated in doctors offices. Intake Vital Signs 01/11/25 13:26 05/16/25 08:46 Height 5 ft 5 in 5 ft 5 in Weight: 125 lb BMI 20.7 BP 167/96 H Blood Pressure Location Rt brachial Position Sitting Respiration 18 Pulse 80 Pulse Source Monitor Pulse Oximetry (%) 98 Intake Visit Reasons: 4 M Radar Repairer Required: No Is patient in pain?: No Allergies doxycycline Adverse Reaction (Severe, Verified 05/16/25 11:50) Nausea erythromycin base (Erythromycin Base) Adverse Reaction (Severe, Verified 05/16/25 11:50) Nausea clindamycin Adverse Reaction (Intermediate, Verified 05/16/25 11:50) Thrush Penicillins Adverse Reaction (Intermediate, Verified 05/16/25 11:50) Hives Medications ???Medication ???Instructions ???Recorded ???Confirmed ???Type Calcium Carbonate/Vitamin D 1 tab PO DAILY 08/01/13 05/16/25 H istory Multivitamins,Therapeutic 1 tab PO DAILY 08/01/13 05/16/25 H istory lactobacillus combination no.9 4 4,000 mmu cells PO DAILY 03/23/23 05/16/25 History billion cell capsule (Adult 50 Plus Probiotic) famotidine 20 mg tablet 20 mg PO QDAY 12/01/24 05/16/25 Hi story (Zantac-360 (famotidine)) metoprolol succinate 50 mg 50 mg PO QDAY #90 tabs 01/11/25 Rx tablet,extended release 24 hr (Toprol XL) levothyroxine 75 mcg tablet 50 mcg PO QDAY 04/12/25 05/16/25 H istory Ejection fraction %: 60 Have you fallen in the past year?: No PFSH Medical History Tachycardia Diverticulosis Uncontrolled hypertension Cancer Gastric reflux Pulmonary nodule Surgical History History of tubal ligation History of hysterectomy Family History Mother Colon cancer Breast cancer Daughter Thyroid disorder Social History Smoking Status: Never smoker alcohol intake: never ROS Const Const: Negative for fatigue, weakness, headache(s) or frequent falls Eyes Eyes: Negative for blurry vision ENT ENT: Negative for headache(s), dizziness or Nosebleed/epistaxis Cardio Chest Pain: No Palpitations: No Edema: None Muscle aches with walking: None Resp Respiratory: Negative for SOB with activity, SOB at rest or SOB orthopnea SOB lying down GI GI: Negative nausea, vomiting, heartburn, bright, red blood in stools or black,tarry stools : Negative for hematuria Neuro Neuro: Negative for dizziness, lightheadedness, near syncope, syncope, frequent falls, headache(s), weakness or blurry vision Endo Endo: Negative for fatigue (more content not included)... Normal [facility] Absolute lymphocyte countOrd ered By: Brian Gonzales on 05-10-2025 Lymphocytes Auto (Unsp spec) [#/Vol] 0.79 10*3/uL Low 0.83-4.51 [facility] Absolute neutrophil countOrd ered By: Brian Gonzales on 05-10-2025 Neutrophils (Bld) [#/Vol] 4.5 10*3/uL 2.0-7.7 [facility] Activated partial thrombopla stin time (aPTT) in platelet poor plasma by coagulation aOrdered By: Brian Gonzales on 05-10-2025 aPTT Coag (PPP) [Time] 25.6 s 24.1-36.2 [facility] Automated lymphocyte count a s percentage of total leukocytesOrdered By: Brian Gonzales on 05-10-2025 Lymphocytes/100 WBC Auto (Unsp spec) 12.9 % Low 19-41 [facility] Basophil percentageOrdered B y: Brian Gonzales on 05-10-2025 Basophils/100 WBC (Bld) 1.0 % 0-1 [facility] Biopsy/Inj or Needle Placeme nton 05-10-2025 Biopsy/Inj or Needle Placement [facility] Services [address] [place], [place] [address] Biopsy/Inj or Needle Placement MR#: [id number] Acct: [id number] Name: LUZ CLANCY Rep #: [id number] : 1940 F 85 From: Brian Zambrano PCP: MARILEE Partida Status: REG CLI Study: Biopsy/Inj or Needle Placement Date of Exam: 0 05/10/25 Exam# [id number] Ordering Dr: Carlos Bernal MD EXAM: CT-guided left lower lobe mass core biopsy CLINICAL HISTORY: Large left lower lobe pulmonary mass, hypermetabolic on PET-CT. COMPARISON: PET-CT of 05/02/2025. TECHNIQUE: Conscious sedation was employed for this procedure, involving intravenous administration of both 2 mg Versed and 50 mcg fentanyl. Start time was 0920 hours and stop time 0953 hours. Following informed consent, and using standard sterile technique, a left lower lobe CT-guided core biopsy most performed. 2% lidocaine local anesthesia was followed by placement of a 15 cm 20 gauge CorVocet core biopsy system. 5 samples were then obtained. No complication was encountered, in the patient left the department in good condition. CT/Biopsy/Inj or Needle Placement IMPRESSION: Successful core biopsy of left lower lobe pulmonary mass. Pathology results pending. Reading Location: [place] [address] CC: MARILEE Interiano; Dr. Carlos Bernal MD Surgical Dental Assistant: Signed Normal [facility] CBC W/Diff, Automatedon 07-3 0-2024 Absolute Lymph 0.79 X10 3/uL Low 0.83-4.51 [facility] Comment on above: Performed By: #### L 100.0100, L300.3900, L300.4310 ####[facility] [address] [place], [address] Absolute Neut 4.5 X10 3/uL Normal 2.0-7.7 [facility] Comment on above: Performed By: #### L 100.0100, L300.3900, L300.4310 ####[facility] [address] [place], [address] Basophils/100 WBC (Bld) 1.0 % Normal 0-1 [facility] Comment on above: Performed By: #### L 100.0100, L300.3900, L300.4310 ####[facility] [address] [place], [address] Eosinophils/100 WBC (Bld) 1.5 % Normal 0-5 [facility] Comment on above: Performed By: #### L 100.0100, L300.3900, L300.4310 ####[facility] [address] [place], [address] Erythrocyte distribution width (RBC) [Ratio] 13.2 % Normal 11.6-14.6 [facility] Comment on above: Performed By: #### L 100.0100, L300.3900, L300.4310 ####[facility] [address] [place], [address] Hematocrit (Bld) [Volume fraction] 34.7 % Low 37-47 [facility] Comment on above: Performed By: #### L 100.0100, L300.3900, L300.4310 ####[facility] [address] [place], [address] Hemoglobin (Bld) [Mass/Vol] 11.0 g/dL Low 12.0-15.0 [facility] Comment on above: Performed By: #### L 100.0100, L300.3900, L300.4310 ####[facility] [address] [place], [address] IG% 0.500 Normal 0.0-0.9 [facility] Comment on above: Result Comment: IG% - Immature Granulocytes (promyelocytes, myelocytes and metamyelocytes) > 1% indicates that a LEFT SHIFT is Present. Performed By: #### L 100.0100, L300.3900, L300.4310 ####[facility] [address] [place], [address] Lymphocytes/100 WBC (Bld) 12.9 % Low 19-41 [facility] Comment on above: Performed By: #### L 100.0100, L300.3900, L300.4310 ####[facility] [address] [place], [address] MCH (RBC) [Entitic mass] 27.8 pg Normal 27.0-32.0 [facility] Comment on above: Performed By: #### L 100.0100, L300.3900, L300.4310 ####[facility] [address] [place], [address] MCHC (RBC) [Mass/Vol] 31.7 g/dL Low 32-36 [facility] Comment on above: Performed By: #### L 100.0100, L300.3900, L300.4310 ####[facility] [address] [place], [address] MCV (RBC) [Entitic vol] 87.8 fL Normal 81-99 [facility] Comment on above: Performed By: #### L 100.0100, L300.3900, L300.4310 ####[facility] [address] [place], [address] Monocytes/100 WBC (Bld) 11.6 % High 0-10 [facility] Comment on above: Performed By: #### L 100.0100, L300.3900, L300.4310 ####[facility] [address] [place], [address] Neutrophils/100 WBC (Bld) 72.5 % High 47-70 [facility] Comment on above: Performed By: #### L 100.0100, L300.3900, L300.4310 ####[facility] [address] [place], [address] Nucleated RBC (Bld) [#/Vol] 0 10*3/uL Normal 0-5 [facility] Comment on above: Performed By: #### L 100.0100, L300.3900, L300.4310 ####[facility] [address] [place], [address] Platelet mean volume (Bld) [Entitic vol] 10.7 fL Normal 6.2-12.0 [facility] Comment on above: Performed By: #### L 100.0100, L300.3900, L300.4310 ####[facility] [address] [place], [address] Platelets (Bld) [#/Vol] 347 10*3/uL Normal 150-450 [facility] Comment on above: Performed By: #### L 100.0100, L300.3900, L300.4310 ####[facility] [address] [place], [address] RBC (Bld) [#/Vol] 3.95 10*6/uL Low 4.2-5.4 [facility] Comment on above: Performed By: #### L 100.0100, L300.3900, L300.4310 ####[facility] [address] [place], [address] RDW SD 42.8 fl Normal 35.1-43.9 [facility] Comment on above: Performed By: #### L 100.0100, L300.3900, L300.4310 ####[facility] [address] [place], [address] WBC (Bld) [#/Vol] 6.1 10*3/uL Normal 4.4-11.[address] [facility] Comment on above: Performed By: #### L 100.0100, L300.3900, L300.4310 ####[facility] [address] [place], [address] Chest Insp/Exp 2 Viewon 04-13 Chest Insp/Exp 2 View [facility] Imaging Services [address] [place] [address] Chest Insp/Exp 2 View MR#: [id number] Acct: [id number] Name: LUZ CLANCY Rep #: [id number] : 1940 F 85 From: Brian Zambrano PCP: MARILEE Partida Status: REG CLI Study: Chest Insp/Exp 2 View Date of Exam: 05/10/25 Exam# [id number] Ordering Dr: Brian Gonzales MD EXAM: Two-view AP portable upright inspiratory and expiratory chest CLINICAL HISTORY: 3 hours following left lung CT-guided core biopsy. COMPARISON: Chest x-ray of 2 hours prior. TECHNIQUE: Two-view AP portable upright inspiratory and expiratory chest. RAD/Chest Insp/Exp 2 View IMPRESSION: No pneumothorax is seen. Lungs appear unchanged. No pleural effusion is appreciated. The cardiomediastinal silhouette is stable, without evidence of cardiomegaly. Reading Location: [place] [address] CC: MULTIPLEX OPERATOR-C Lela Interiano; Dr. Brian Gonzales MD Surgical Dental Assistant: Signed Normal [facility] Chest Insp/Exp 2 View [facility] Services [address] [place], [place] [address] Chest Insp/Exp 2 View MR#: [id number] Acct: [id number] Name: LUZ CLANCY Rep #: [id number] : 1940 F 85 From: Brian Zambrano PCP: MARILEE Partida Status: REG CLI Study: Chest Insp/Exp 2 View Date of Exam: 05/10/25 Exam# [id number] Ordering Dr: Brian Gonzales MD EXAM: AP portable upright inspiratory and expiratory chest CLINICAL HISTORY: 1 hour post left lung biopsy. COMPARISON: CT images of earlier the same day TECHNIQUE: AP portable upright inspiratory and expiratory chest no pneumothorax is seen. RAD/Chest Insp/Exp 2 View IMPRESSION: No pneumothorax is seen. No pleural effusion is identified. The left central lung mass is again noted. Minimal left basilar atelectasis is seen. The cardiomediastinal silhouette is otherwise unremarkable; no evidence of cardiomegaly. Reading Location: [place] [address] CC: SOURAV-Lilian Interiano; Dr. Brian Gonzales MD Surgical Dental Assistant: Signed Normal [facility] Eosinophil percentageOrdered By: Brian Gonzales on 05-10-2025 Eosinophils/100 WBC (Bld) 1.5 % 0-5 [facility] Erythrocyte distribution wid th ratioOrdered By: Brian Gonzales on 05-10-2025 Erythrocyte distribution width (RBC) [Ratio] 13.2 % 11.6-14.6 [facility] Erythrocyte distribution wid th standard deviationOrdered By: Brian Gonzales on 05-10-2025 Erythrocyte distribution width (RBC) [Ratio] 42.8 fl 35.1-43.9 [facility] Hematocrit Auto (Bld) [Volum e fraction]Ordered By: Brian Gonzales on 05-10-2025 Hematocrit (Bld) [Volume fraction] 34.7 % Low 37-47 [facility] Hemoglobin measurementOrdere d By: Brian Gonzales on 05-10-2025 Hemoglobin (Bld) [Mass/Vol] 11.0 g/dL Low 12.0-15.0 [facility] Immature granulocytes/100 WB C Auto (Bld)Ordered By: Brian Gonzales on 05-10-2025 Immature granulocytes/100 WBC (Bld) 0.500 % 0.0-0.9 [facility] Comment on above: IG% - Immature Granu locytes (promyelocytes, myelocytes and metamyelocytes) > 1% indicates that a LEFT SHIFT is Present. Immunohistochemical Stainson 05-10-2025 Immunohistochemical Stains Patient Age/Sex Location Account Attending Physician LUZ CLANCY 85/F CT [id number] Dr. Carlos Bernal MD Specimen: [id number] Received: 05/10/25 Status: RONIT Antonieta Num: [id number] Spec Type: LUNG BX Subm Dr: Dr. Carlos Bernal MD HEADER OPERATION: CT guided lung biopsy PRE-OP DIAGNOSIS: Left lung mass TISSUE SUBMITTED: A- Left lung biopsy - 20 gauge x 4 cores MICROSCOPIC DIAGNOSIS A. Lung, left, CT-guided core biopsy: - Adenocarcinoma consistent with metastasis - see note. Note: IHC was performed to characterize the malignant cells as follows - Positive for pancytokeratin, CK7, TTF-1 (patchy), ER, Vimentin, CD10, NEREYDA-3 (patchy) and PAX8. Ki67 is high. Negative for CK20, Napsin A, CK5/6, p40, CDX2. These findings are compatible with the patient's history of primary endometrial adenocarcinoma. No pathology is available for review/correlation. MICROSCOPIC DESCRIPTION Slides are reviewed. All matched controls reacted appropriately. These tests were developed and their performance characteristics determined by [facility]. They may not have been cleared or approved by the U.S. Food and Drug Administration. The FDA has determined that such clearance or approval is not necessary.??? The above immunohistochemical/dualIS H???markers are reviewed by the Pathologist. GROSS DESCRIPTION A. Received in formalin labeled with the patient's name and date of . Designated as L lung is a 0.7 x 0.5 x <0.1 cm aggregate of reed fragmented tissue cores. Entirely submitted in 2 cassettes. [place] 05/10/2025 [facility]:[id number] Patient Age/Sex Location Account Attending Physician LUZ CLANCY 85/F CT [id number] Dr. Carlos Bernal MD Signed (signature on file) Dr. Erum Bonilla MD 05/15/25 1643 Normal [facility] Comment on above: Performed By: #### P [facility] ####[facility] [address] [place], [address] International normalized rat io (INR) calculationOrdered By: Brian Gonzales on 05-10-2025 INR Coag (Bld) [Relative time] 1.0 {INR} [facility] MCV (mean corpuscular volume ) determinationOrdered By: Brian Gonzales on 05-10-2025 MCV (RBC) [Entitic vol] 87.8 fL 81-99 [facility] Mean corpuscular hemoglobin (MCH) determinationOrdered By: Brian Gonzales on 05-10-2025 MCH (RBC) [Entitic mass] 27.8 pg 27.0-32.0 [facility] Mean corpuscular hemoglobin concentration (MCHC) determinationOrdered By: Brian Gonzales on 05-10-2025 MCHC (RBC) [Mass/Vol] 31.7 g/dL Low 32-36 [facility] Mean platelet volume determi nationOrdered By: Brian Gonzales on 05-10-2025 Platelet mean volume (Bld) [Entitic vol] 10.7 fL 6.2-12.0 [facility] Monocyte percentageOrdered B y: Brian Gonzales on 05-10-2025 Monocytes/100 WBC (Bld) 11.6 % High 0-10 [facility] Neutrophil percentageOrdered By: Brian Gonzales on 05-10-2025 Neutrophils/100 WBC (Bld) 72.5 % High 47-70 [facility] Nucleated red blood cell per centageOrdered By: Brian Gonzales on 05-10-2025 Nucleated RBC/100 WBC (Bld) [Ratio] 0 % 0-5 [facility] Partial Thromboplast Timeon 05-10-2025 aPTT Coag (Bld) [Time] 25.6 s Normal 24.1-36.2 [facility] Comment on above: Performed By: #### L 100.0100, L300.3900, L300.4310 ####[facility] [address] [place], [place], [id number] Platelet countOrdered By: Brock Gonzales on 05-10-2025 Platelets (Bld) [#/Vol] 347 10*3/uL 150-450 [facility] Prothrombin Time w/INRon INR Coag (PPP) [Relative time] 1.0 {INR} Normal [facility] Comment on above: Performed By: #### L 100.0100, L300.3900, L300.4310 ####[facility] [address] [place], [address] PT Coag (PPP) [Time] 13.0 s Normal 11.7-14.9 [facility] Comment on above: Performed By: #### L 100.0100, L300.3900, L300.4310 ####[facility] [address] [place], [place], [address] Prothrombin timeOrdered By: Brian Gonzales on 05-10-2025 PT Coag (PPP) [Time] 13.0 s 11.7-14.9 [facility] RBC Auto (Bld) [#/Vol]Ordere d By: Brian Gonzales on 05-10-2025 RBC (Bld) [#/Vol] 3.95 10*6/uL Low 4.2-5.4 [facility] White blood cell (WBC) count Ordered By: Brian Gonzales on 05-10-2025 WBC (Bld) [#/Vol] 6.1 10*3/uL 4.4-11.[address] [facility] PET/CT Tumor Base -Thigh Ini ton 05-02-2025 PET/CT Tumor Base -Thigh Init [facility] Imaging Services [address] [place] [address] PET/CT Tumor Base -Thigh Init MR#: [id number] Acct: [id number] Name: LUZ CLANCY Rep #: [id number] : 1940 F 85 From: Maria A Clay nd, MD PCP: Dr. Paola Corona MD Status: [facility] RCR Study: PET/CT Tumor Base -Thigh Init Date of Exam: Exam# [id number] Ordering Dr: Carlos Bernal MD EXAM: PET/CT [...] PET will be reported separately. Reading Location: [id number] CC: Dr. Paola Corona MD; Dr. Carlos Bernal MD Surgical Dental Assistant: Signed Normal [facility] Oncology Visit Reporton 04-11 Oncology Visit Report [facility] [address] [address] OFFICE VISIT Date of Service: 04/24/25 1552 MR#: [id number] Acct: [id number] Name: LUZ CLANCY Rep #: [id number] : 1940 From: Carlos Bernal MD Age/Sex: 85/F Location: [facility] Status: Signed HPI Subjective Date of [...] up. Denies fever, weight loss, night sweats. [facility] Medical History Tachycardia Diverticulosis Uncontrolled hypertension Cancer [...] No 04/24/25 1634 Date Carlos Bernal MD Cosign Signature: Date (if applicable) CC: MULTIPLEX OPERATOR-C Lela Interiano Normal [facility] CT Chest, Abd, Pel w/Contras ton 04-17-2025 CT Chest, Abd, Pel w/Contrast [facility] Imaging Services [address] [place] [address] [address] Chest, Abd, Pel w/Contrast MR#: [id number] Acct: [id number] Name: LUZ CLNACY Rep #: [id number] : 1940 F 85 From: Erik Barba MD PCP: MARILEE Partida Status: REG CLI Study: CT Chest, Abd, Pel w/Contrast Date of Exam: Exam# [id number] Ordering Dr: Carlos Bernal MD PROCEDURE: CT [...] 3. Other findings as noted. Reading Location: [id number] CC: MARILEE Interiano; Dr. Carlos Bernal MD Surgical Dental Assistant: Signed Normal [facility] Cancer Antigen 125on 025 CA 125 121.0 U/mL High 0.0-38.1 [facility] Comment on above: Result Comment: [facility] Electrochemiluminescence Immunoassay (ECLIA) Values obtained with different assay methods or kits cannot be used interchangeably. Results cannot be interpreted as absolute evidence of the presence or absence of malignant disease. Performed at: [facility] [address], [place] [id number] Mail Examiner: Guero Smyht PhD, Phone: [phone] Performed By: #### L 3100.5000 #### [facility] [address] [place] [address], [id number] Cancer antigen 125 (CA-125) measurementOrdered By: Carlos Bernal on 04-12-2025 Cancer antigen 125 (CA-125) measurement 121.0 U/mL High 0.0-38.1 [facility] Comment on above: [facility] El ectrochemiluminescence Immunoassay(ECLIA)Values obtained with different assay methods or kits cannotbe used interchangeably. Results cannot be interpreted asabsolute evidence of the presence or absence of malignantdisease.Performed at: [facility], [place] [id number] Director: Guero Smyth PhD, Phone: [phone] Oncology Visit Reporton Oncology Visit Report [facility] [address] [place] [address] OFFICE VISIT Date of Service: 04/12/25 1455 MR#: [id number] Acct: [id number] Name: LUZ CLANCY Rep #: [id number] : 1940 From: Carlos Bernal MD Age/Sex: 85/F Location: [facility] Status: Signed HPI Subjective Date of [...] is on observation, comes in for f/u. [facility] Medical History Tachycardia Diverticulosis Uncontrolled hypertension Cancer [...] of uterus, (more content not included)... Normal [facility] Cancer Antigen 125on 025 CA 125 83.5 U/mL High 0.0-38.1 [facility] Comment on above: Result Comment: [facility] [employer] Electrochemiluminescence Immunoassay (ECLIA) Values obtained with different assay methods or kits cannot be used interchangeably. Results cannot be interpreted as absolute evidence of the presence or absence of malignant disease. Performed at: [facility] [address] [id number] Mail Examiner: Guero Smyth PhD, Phone: [phone] Performed By: #### L 100.0100, L3100.5000, L504.2610, L500.4050 ####[facility] [address] [place], [address] Absolute lymphocyte countOrd ered By: [facility] on 03-22-2025 Lymphocytes Auto (Unsp spec) [#/Vol] 0.82 10*3/uL Low 0.83-4.51 [facility] Absolute neutrophil countOrd ered By: [facility] on 03-22-2025 Neutrophils (Bld) [#/Vol] 5.1 10*3/uL 2.0-7.7 [facility] Anion gap in Serum or Plasma Ordered By: [facility] on 03-22-2025 Anion gap [Moles/Vol] 12 mmol/L 5-15 [facility] Automated lymphocyte count a s percentage of total leukocytesOrdered By: [facility] on 03-22-2025 Lymphocytes/100 WBC Auto (Unsp spec) 12.6 % Low 19-41 [facility] BUN/creatinine ratioOrdered By: [facility] on 03-22-2025 Urea nitrogen/Creatinine [Mass ratio] 19.3 mg/mg 10-20 [facility] Basophil percentageOrdered B y: [facility] on 03-22-2025 Basophils/100 WBC (Bld) 0.9 % 0-1 [facility] Bilirubin, totalOrdered By: [facility] on 03-22-2025 Bilirubin [Mass/Vol] 0.24 mg/dL 0.00-1.30 [facility] CBC W/Diff, Automatedon 03-12 Absolute Lymph 0.82 X10 3/uL Low 0.83-4.51 [facility] Comment on above: Performed By: #### L 100.0100, L3100.5000, L504.2610, L500.4050 ####[facility] [address] [place], [address] Absolute Neut 5.1 X10 3/uL Normal 2.0-7.7 [facility] Comment on above: Performed By: #### L 100.0100, L3100.5000, L504.2610, L500.4050 ####[facility] [address] [place], [address] Basophils/100 WBC (Bld) 0.9 % Normal 0-1 [facility] Comment on above: Performed By: #### L 100.0100, L3100.5000, L504.2610, L500.4050 ####[facility] [address] [place], [address] Eosinophils/100 WBC (Bld) 1.4 % Normal 0-5 [facility] Comment on above: Performed By: #### L 100.0100, L3100.5000, L504.2610, L500.4050 ####[facility] [address] [place], [address] Erythrocyte distribution width (RBC) [Ratio] 12.3 % Normal 11.6-14.6 [facility] Comment on above: Performed By: #### L 100.0100, L3100.5000, L504.2610, L500.4050 ####[facility] [address] [place], [address] Hematocrit (Bld) [Volume fraction] 32.9 % Low 37-47 [facility] Comment on above: Performed By: #### L 100.0100, L3100.5000, L504.2610, L500.4050 ####[facility] [address] [place], [address] Hemoglobin (Bld) [Mass/Vol] 10.4 g/dL Low 12.0-15.0 [facility] Comment on above: Performed By: #### L 100.0100, L3100.5000, L504.2610, L500.4050 ####[facility] [address] [place], [address] IG% 0.300 Normal 0.0-0.9 [facility] Comment on above: Result Comment: IG% - Immature Granulocytes (promyelocytes, myelocytes and metamyelocytes) > 1% indicates that a LEFT SHIFT is Present. Performed By: #### L 100.0100, L3100.5000, L504.2610, L500.4050 ####[facility] [address] [place], [address] Lymphocytes/100 WBC (Bld) 12.6 % Low 19-41 [facility] Comment on above: Performed By: #### L 100.0100, L3100.5000, L504.2610, L500.4050 ####[facility] [address] [place], [address] MCH (RBC) [Entitic mass] 28.1 pg Normal 27.0-32.0 [facility] Comment on above: Performed By: #### L 100.0100, L3100.5000, L504.2610, L500.4050 ####[facility] [address] [place], [address] MCHC (RBC) [Mass/Vol] 31.6 g/dL Low 32-36 [facility] Comment on above: Performed By: #### L 100.0100, L3100.5000, L504.2610, L500.4050 ####[facility] [address] [place], [address] MCV (RBC) [Entitic vol] 88.9 fL Normal 81-99 [facility] Comment on above: Performed By: #### L 100.0100, L3100.5000, L504.2610, L500.4050 ####[facility] [address] [place], [address] Monocytes/100 WBC (Bld) 7.4 % Normal 0-10 [facility] Comment on above: Performed By: #### L 100.0100, L3100.5000, L504.2610, L500.4050 ####[facility] [address] [place], [address] Neutrophils/100 WBC (Bld) 77.4 % High 47-70 [facility] Comment on above: Performed By: #### L 100.0100, L3100.5000, L504.2610, L500.4050 ####[facility] [address] [place], [address] Nucleated RBC (Bld) [#/Vol] 0 10*3/uL Normal 0-5 [facility] Comment on above: Performed By: #### L 100.0100, L3100.5000, L504.2610, L500.4050 ####[facility] [address] [place], [address] Platelet mean volume (Bld) [Entitic vol] 10.6 fL Normal 6.2-12.0 [facility] Comment on above: Performed By: #### L 100.0100, L3100.5000, L504.2610, L500.4050 ####[facility] [address] [place], [address] Platelets (Bld) [#/Vol] 314 10*3/uL Normal 150-450 [facility] Comment on above: Performed By: #### L 100.0100, L3100.5000, L504.2610, L500.4050 ####[facility] [address] [place], [address] RBC (Bld) [#/Vol] 3.70 10*6/uL Low 4.2-5.4 [facility] Comment on above: Performed By: #### L 100.0100, L3100.5000, L504.2610, L500.4050 ####[facility] [address] [place], [address] RDW SD 39.8 fl Normal 35.1-43.9 [facility] Comment on above: Performed By: #### L 100.0100, L3100.5000, L504.2610, L500.4050 ####[facility] [address] [place], [address] WBC (Bld) [#/Vol] 6.5 10*3/uL Normal 4.4-11.[address] [facility] Comment on above: Performed By: #### L 100.0100, L3100.5000, L504.2610, L500.4050 ####[facility] [address] [place], [address] Carbon dioxide, total [Moles /volume] in Central venous bloodOrdered By: Carlos Bernal on 03-22-2025 CO2 [Moles/Vol] 21.8 mmol/L 21.0-32.0 [facility] Chloride assayOrdered By: Emily Bernal on 03-22-2025 Chloride [Moles/Vol] 102 mmol/L 98-108 [facility] Comprehensive Metabolic Prof ilon 03-22-2025 Albumin [Mass/Vol] 4.1 g/dL Normal 3.4-4.[address] [facility] Comment on above: Performed By: #### L 100.0100, L3100.5000, L504.2610, L500.4050 ####[facility] [address] [place], [address] Albumin/Globulin [Mass ratio] 1.3 {ratio} Normal 0.9-2.4 [facility] Comment on above: Performed By: #### L 100.0100, L3100.5000, L504.2610, L500.4050 ####[facility] [address] [place], [address] ALK PHOS 84 U/L Normal 35-104 [facility] Comment on above: Performed By: #### L 100.0100, L3100.5000, L504.2610, L500.4050 ####[facility] [address] [place], [address] ALT [Catalytic activity/Vol] 18 U/L Normal <=34 [facility] Comment on above: Performed By: #### L 100.0100, L3100.5000, L504.2610, L500.4050 ####[facility] [address] [place], [address] AST [Catalytic activity/Vol] 32 U/L Normal <=31 [facility] Comment on above: Performed By: #### L 100.0100, L3100.5000, L504.2610, L500.4050 ####[facility] [address] [place], [address] Bilirubin [Mass/Vol] 0.24 mg/dL Normal 0.00-1.30 [facility] Comment on above: Performed By: #### L 100.0100, L3100.5000, L504.2610, L500.4050 ####[facility] [address] [place], [address] BUN/CRE 19.3 RATIO Normal 10-20 [facility] Comment on above: Performed By: #### L 100.0100, L3100.5000, L504.2610, L500.4050 ####[facility] [address] [place], [address] Calcium [Mass/Vol] 9.5 mg/dL Normal 7.6-11.[address] [facility] Comment on above: Performed By: #### L 100.0100, L3100.5000, L504.2610, L500.4050 ####[facility] [address] [place], [address] Chloride [Moles/Vol] 102 mmol/L Normal 98-108 [facility] Comment on above: Performed By: #### L 100.0100, L3100.5000, L504.2610, L500.4050 ####[facility] [address] [place], [address] CO2 [Moles/Vol] 21.8 mmol/L Normal 21.0-32.0 [facility] Comment on above: Performed By: #### L 100.0100, L3100.5000, L504.2610, L500.4050 ####[facility] [address] [place], [address] Creatinine [Mass/Vol] 0.77 mg/dL Normal 0.70-1.20 [facility] Comment on above: Performed By: #### L 100.0100, L3100.5000, L504.2610, L500.4050 ####[facility] [address] [place], [address] ECRCL 47.95 ml/min Low 50-250 [facility] Comment on above: Performed By: #### L 100.0100, L3100.5000, L504.2610, L500.4050 ####[facility] [address] [place], [address] GAP 12 Normal 5-15 [facility] Comment on above: Performed By: #### L 100.0100, L3100.5000, L504.2610, L500.4050 ####[facility] [address] [place], [address] GFR/1.73 sq M.predicted among non-blacks MDRD (S/P/Bld) [Vol rate/Area] 77 mL/min/{1.73_m2} Normal >60 [facility] Comment on above: Result Comment: mL/m in/1.73m2 CKD-EPI Creatinine Equation (2020) Performed By: #### L 100.0100, L3100.5000, L504.2610, L500.4050 ####[facility] [address] [place], [address] Globulin (S) [Mass/Vol] 3.2 g/dL Normal 2.2-4.2 [facility] Comment on above: Performed By: #### L 100.0100, L3100.5000, L504.2610, L500.4050 ####[facility] [address] [place], [address] Glucose [Mass/Vol] 125 mg/dL High 70-[address] [facility] Comment on above: Performed By: #### L 100.0100, L3100.5000, L504.2610, L500.4050 ####[facility] [address] [place], [address] Potassium [Moles/Vol] 3.7 mmol/L Normal 3.3-5.1 [facility] Comment on above: Performed By: #### L 100.0100, L3100.5000, L504.2610, L500.4050 ####[facility] [address] [place], [address] Sodium [Moles/Vol] 136 mmol/L Normal 133-[address] [facility] Comment on above: Performed By: #### L 100.0100, L3100.5000, L504.2610, L500.4050 ####[facility] [address] [place], [address] T PROT 7.3 g/dL Normal 5.9-8.4 [facility] Comment on above: Performed By: #### L 100.0100, L3100.5000, L504.2610, L500.4050 ####[facility] [address] [place], [address] Urea nitrogen [Mass/Vol] 15 mg/dL Normal 4-19 [facility] Comment on above: Performed By: #### L 100.0100, L3100.5000, L504.2610, L500.4050 ####[facility] [address] [place], [address] Eosinophil percentageOrdered By: Carlos Bernal on 03-22-2025 Eosinophils/100 WBC (Bld) 1.4 % 0-5 [facility] Erythrocyte distribution wid th ratioOrdered By: [facility] on 03-22-2025 Erythrocyte distribution width (RBC) [Ratio] 12.3 % 11.6-14.6 [facility] Erythrocyte distribution wid th standard deviationOrdered By: [facility] on 03-22-2025 Erythrocyte distribution width (RBC) [Ratio] 39.8 fl 35.1-43.9 [facility] Glomerular filtration rate ( GFR) estimation/1.73 sq m using serum, plasma, or whole bOrdered By: [facility] on 03-22-2025 GFR/1.73 sq M.predicted among non-blacks MDRD (S/P/Bld) [Vol rate/Area] 77 mL/min/{1.73_m2} >60 [facility] Comment on above: mL/min/1.73m2 CKD-EP I Creatinine Equation (2020) Hematocrit Auto (Bld) [Volum e fraction]Ordered By: Carlos Bernal on 03-22-2025 Hematocrit (Bld) [Volume fraction] 32.9 % Low 37-47 [facility] Hemoglobin measurementOrdere d By: Carlos Bernal on 03-22-2025 Hemoglobin (Bld) [Mass/Vol] 10.4 g/dL Low 12.0-15.0 [facility] Immature granulocytes/100 WB C Auto (Bld)Ordered By: Carlos Bernal on 03-22-2025 Immature granulocytes/100 WBC (Bld) 0.300 % 0.0-0.9 [facility] Comment on above: IG% - Immature Granu locytes (promyelocytes, myelocytes and metamyelocytes) > 1% indicates that a LEFT SHIFT is Present. LDHon 03-22-2025 LDH 279 U/L High 84-246 [facility] Comment on above: Order Comment: 1 Performed By: #### L 100.0100, L3100.5000, L504.2610, L500.4050 ####[facility] [address] [place], [address] Laboratory - Chemistry and C hemistry - challengeOrdered By: Carlos Bernal on 03-22-2025 AST [Catalytic activity/Vol] 32 U/L <32 [facility] Lactate dehydrogenase (LDH) measurementOrdered By: Carlos Bernal on 03-22-2025 LDH [Catalytic activity/Vol] 279 U/L High 84-246 [facility] MCV (mean corpuscular volume ) determinationOrdered By: Carlos Bernal on 03-22-2025 MCV (RBC) [Entitic vol] 88.9 fL 81-99 [facility] Mean corpuscular hemoglobin (MCH) determinationOrdered By: Carlos Bernal on 03-22-2025 MCH (RBC) [Entitic mass] 28.1 pg 27.0-32.0 [facility] Mean corpuscular hemoglobin concentration (MCHC) determinationOrdered By: Carlos Bernal on 03-22-2025 MCHC (RBC) [Mass/Vol] 31.6 g/dL Low 32-36 [facility] Mean platelet volume determi nationOrdered By: Carlos Bernal on 03-22-2025 Platelet mean volume (Bld) [Entitic vol] 10.6 fL 6.2-12.0 [facility] Monocyte percentageOrdered B y: Carlos Bernal on 03-22-2025 Monocytes/100 WBC (Bld) 7.4 % 0-10 [facility] Neutrophil percentageOrdered By: Carlos Bernal on 03-22-2025 Neutrophils/100 WBC (Bld) 77.4 % High 47-70 [facility] Nucleated red blood cell per centageOrdered By: Carlos Bernal on 03-22-2025 Nucleated RBC/100 WBC (Bld) [Ratio] 0 % 0-5 [facility] Platelet countOrdered By: Emily Bernal on 03-22-2025 Platelets (Bld) [#/Vol] 314 10*3/uL 150-450 [facility] Potassium measurement (mass/ volume)Ordered By: Carlos Bernal on 03-22-2025 Potassium (Unsp spec) [Mass/Vol] 3.7 mmol/L 3.3-5.1 [facility] RBC Auto (Bld) [#/Vol]Ordere d By: Carlos Bernal on 03-22-2025 RBC (Bld) [#/Vol] 3.70 10*6/uL Low 4.2-5.4 [facility] Serum creatinine measurement (mass/volume)Ordered By: Carlos Bernal on 03-22-2025 Creatinine [Mass/Vol] 0.77 mg/dL 0.70-1.20 [facility] Serum globulin measurementOr dered By: Carlos Bernal on 03-22-2025 Globulin (S) [Mass/Vol] 3.2 g/dL 2.2-4.2 [facility] Serum glucose measurement (m ass/volume)Ordered By: Carlos Bernal on 03-22-2025 Glucose [Mass/Vol] 125 mg/dL High 70-[address] [facility] Serum or plasma alanine thompson otransferase (ALT) measurementOrdered By: Carlos Bernal on 03-22-2025 ALT [Catalytic activity/Vol] 18 U/L <35 [facility] Serum or plasma albumin charlnee urement (mass/volume)Ordered By: Carlos Bernal on 03-22-2025 Albumin [Mass/Vol] 4.1 g/dL 3.4-4.[address] [facility] Serum or plasma albumin/glob ulin mass ratioOrdered By: Carlos Bernal on 03-22-2025 Albumin/Globulin [Mass ratio] 1.3 {ratio} 0.9-2.4 [facility] Serum or plasma alkaline dameon sphatase measurementOrdered By: Carlos Bernal on 03-22-2025 ALP [Catalytic activity/Vol] 84 U/L 35-104 [facility] Serum or plasma calcium charlene urement (mass/volume)Ordered By: Carlos Bernal on 03-22-2025 Calcium [Mass/Vol] 9.5 mg/dL 7.6-11.[address] [facility] Serum or plasma urea nitroge n measurement (mass/volume)Ordered By: Carlos Bernal on 03-22-2025 Urea nitrogen [Mass/Vol] 15 mg/dL 4- [facility] Sodium levelOrdered By: Pedro Bernal on 03-22-2025 Sodium [Moles/Vol] 136 mmol/L 133-[address] [facility] Total proteinOrdered By: Scot Bernal on 03-22-2025 Protein [Mass/Vol] 7.3 g/dL 5.9-8.[address] [facility] White blood cell (WBC) count Ordered By: Carlos Bernal on 03-22-2025 WBC (Bld) [#/Vol] 6.5 10*3/uL 4.4-11.[address] [facility] Hemoglobin A1con 02-27-2025 HbA1c (Bld) [Mass fraction] 5.6 % Normal <=5.6 [facility] Comment on above: Order Comment: Order Date: 02/27/25 Order Info: [id number] - A1C Result Comment: Norm al < 5.7 % Prediabetic 5.7 - 6.4 % Diabetic >or= 6.5 % Please note range changes. Performed By: #### L 501.9520, L501.9985 #### [facility] [address] [place], [place], [id number] Hemoglobin A1c percentageOrd ered By: Lela Interiano on 02-27-2025 HbA1c (Bld) [Mass fraction] 5.6 % <5.7 [facility] Comment on above: Normal < 5.7 % Predi abetic 5.7 - 6.4 % Diabetic >or= 6.5 % Please note range changes. TSH DL <= 0.005 mIU/L QnOrde red By: Lela Interiano on 02-27-2025 TSH Qn 0.144 uIU/mL Low 0.300-4.200 [facility] Thyroid Stim Hormone (TSH)on 02-27-2025 TSH 0.144 uIU/mL Low 0.300-4.200 [facility] Comment on above: Order Comment: Order Date: 02/27/25 Order Info: [id number] - TSH Performed By: #### L 501.9520, L501.9985 #### [facility] [address] [place], [address] Stress Reporton 02-07-2025 Stress Report [facility] Cardiovascular Services [address] [place] [address] MR#: [id number] Acct: [id number] Name: LUZ CLANCY Rep #: [id number] : 1940 84 From: Riley Mckeon MD [...] myocardial perfusion stress test. Preserved ejection fraction. 02/07/25 0747 Date Riley Mckeon MD CC: Dr. Paola Corona MD; Dr. Riley Mckeon MD Date Dictated: 02/07/25744 Date Transcribed: 02/07/25744 Surgical Dental Assistant: CO Signed Normal [facility] Echo Completeon 02-03-2025 Echo Complete [facility] Cardiovascular Services [address] [place] [address] Echo Complete 02/03/25913 MR#: [id number] Acct: [id number] Name: LUZ CLANCY Rep #: [id number] : 1940 84 From: Riley Mckeon MD Attending Dr: Dr. Riley Mckeon MD Status: [facility] Ordering Dr: Riley Mckeon MD Date: 02/03/25 Location: [facility] Sex: F C Admitted: Reason For Study [...] MD Date Dictated: 02/03/25913 Date Transcribed: 02/07/25830 Surgical Dental Assistant: Signed Normal [facility] 12 Lead EKG performed by [facility] on 01-11-2025 12 Lead EKG performed by [facility] [address] [place] [address] 12 Lead EKG performed by [facility] 01/11/25 1326 MR#: [id number] Acct: [id number] Name: LUZ CLANCY Rep #: [id number] : 1940 84 From: Riley Mckeon MD Attending Dr: Dr. Riley Mckeon MD Status: DEP A MB Ordering Dr: Rilye Mckeon MD Date: 01/11/25 Location: [facility] Sex: F C Admitted: BMS/12 Lead EKG performed by [facility] ECG Report Interpretation Sinus Rhythm -Anteroseptal infarct -age undetermined. -Nonspecific ST depression -Nondiagnostic. ABNORMAL Electronically signed on 01/18/2025 at 11:27 by Riley Mckeon [employer] Version 8610 01/18/25 1130 Date Riley Mckeon MD CC: Dr. Paola Corona MD Date Dictated: 01/11/25 1326 Date Transcribed: 01/11/251325 Surgical Dental Assistant: CO Signed Normal [facility] Cardiology Visit Reporton Cardiology Visit Report [facility] [address] [place] [address] OFFICE VISIT Date of Service: 01/11/25 MR#: [id number] Acct: [id number] Name: LUZ CLANCY Rep #: [id number] : 1940 Provider: Dr. 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 Normal [facility] TSH DL <= 0.005 mIU/L QnOrde red By: Paola Corona on 12-20-2024 Thyroid Stimulating Hormone (TSH) 0.321 uIU/mL 0.300-4.200 [facility] TSH Qn 0.321 uIU/mL 0.300-4.200 [facility] Thyroid Stim Hormone (TSH)on 12-20-2024 TSH 0.321 uIU/mL Normal 0.300-4.200 [facility] Comment on above: Order Comment: Order Date: 10/25/24 Order Info: 3016-3 - TSH Performed By: #### L 501.9520 #### [facility] [address] [place], [address] Absolute neutrophil countOrd ered By: Paola Corona on 10-24-2024 Neutrophils (Bld) [#/Vol] 7.7 10*3/uL 2.0-7.7 [facility] Albumin to globulin ratioOrd ered By: Paola Corona on 10-24-2024 Albumin/Globulin [Mass ratio] 1.0 {ratio} 0.9-2.4 [facility] Basophil percentageOrdered B y: Paola Corona on 10-24-2024 Basophils/100 WBC (Bld) 0.5 % 0-1 [facility] Bilirubin, totalOrdered By: Paola Corona on 10-24-2024 Bilirubin [Mass/Vol] 0.20 mg/dL 0.20-1.00 [facility] Comment on above: For patients on eltr ombopag therapy, use of Dimension [place] TBIL is not recommended. Blood urea nitrogen (BUN)/cr eatinine ratioOrdered By: Paola Corona on 10-24-2024 Urea nitrogen/Creatinine [Mass ratio] 17.8 mg/mg 10-20 [facility] CBC W/Diff, Automatedon 10-12 Absolute Lymph 1.01 X10 3/uL Normal 0.83-4.51 [facility] Comment on above: Performed By: #### L 100.0100, L501.9520, L500.4050 ####[facility] [address] [place], [address] Absolute Neut 7.7 X10 3/uL Normal 2.0-7.7 [facility] Comment on above: Performed By: #### L 100.0100, L501.9520, L500.4050 ####[facility] [address] [place], [address] Basophils/100 WBC (Bld) 0.5 % Normal 0-1 [facility] Comment on above: Performed By: #### L 100.0100, L501.9520, L500.4050 ####[facility] [address] [place], [address] Eosinophils/100 WBC (Bld) 0.4 % Normal 0-5 [facility] Comment on above: Performed By: #### L 100.0100, L501.9520, L500.4050 ####[facility] [address] [place], [address] Erythrocyte distribution width (RBC) [Ratio] 12.0 % Normal 11.6-14.6 [facility] Comment on above: Performed By: #### L 100.0100, L501.9520, L500.4050 ####[facility] [address] [place], [address] Hematocrit (Bld) [Volume fraction] 37.3 % Normal 37-47 [facility] Comment on above: Performed By: #### L 100.0100, L501.9520, L500.4050 ####[facility] [address] [place], [address] Hemoglobin (Bld) [Mass/Vol] 12.2 g/dL Normal 12.0-15.0 [facility] Comment on above: Performed By: #### L 100.0100, L501.9520, L500.4050 ####[facility] [address] [place], [address] IG% 0.300 Normal 0.0-0.9 [facility] Comment on above: Result Comment: IG% - Immature Granulocytes (promyelocytes, myelocytes and metamyelocytes) > 1% indicates that a LEFT SHIFT is Present. Performed By: #### L 100.0100, L501.9520, L500.4050 ####[facility] [address] [place], [address] Lymphocytes/100 WBC (Bld) 10.6 % Low 19-41 [facility] Comment on above: Performed By: #### L 100.0100, L501.9520, L500.4050 ####[facility] [address] [place], [address] MCH (RBC) [Entitic mass] 30.0 pg Normal 27.0-32.0 [facility] Comment on above: Performed By: #### L 100.0100, L501.9520, L500.4050 ####[facility] [address] [place], [address] MCHC (RBC) [Mass/Vol] 32.7 g/dL Normal 32-36 [facility] Comment on above: Performed By: #### L 100.0100, L501.9520, L500.4050 ####[facility] [address] [place], [address] MCV (RBC) [Entitic vol] 91.6 fL Normal 81-99 [facility] Comment on above: Performed By: #### L 100.0100, L501.9520, L500.4050 ####[facility] [address] [place], [address] Monocytes/100 WBC (Bld) 7.9 % Normal 0-10 [facility] Comment on above: Performed By: #### L 100.0100, L501.9520, L500.4050 ####[facility] [address] [place], [address] Neutrophils/100 WBC (Bld) 80.3 % High 47-70 [facility] Comment on above: Performed By: #### L 100.0100, L501.9520, L500.4050 ####[facility] [address] [place], [address] Nucleated RBC (Bld) [#/Vol] 0 10*3/uL Normal 0-5 [facility] Comment on above: Performed By: #### L 100.0100, L501.9520, L500.4050 ####[facility] [address] [place], [address] Platelet mean volume (Bld) [Entitic vol] 11.5 fL Normal 6.2-12.0 [facility] Comment on above: Performed By: #### L 100.0100, L501.9520, L500.4050 ####[facility] [address] [place], [address] Platelets (Bld) [#/Vol] 296 10*3/uL Normal 150-450 [facility] Comment on above: Performed By: #### L 100.0100, L501.9520, L500.4050 ####[facility] [address] [place], [address] RBC (Bld) [#/Vol] 4.07 10*6/uL Low 4.2-5.4 [facility] Comment on above: Performed By: #### L 100.0100, L501.9520, L500.4050 ####[facility] [address] [place], [address] RDW SD 40.2 fl Normal 35.1-43.9 [facility] Comment on above: Performed By: #### L 100.0100, L501.9520, L500.4050 ####[facility] [address] [place], [address] WBC (Bld) [#/Vol] 9.6 10*3/uL Normal 4.4-11.[address] [facility] Comment on above: Performed By: #### L 100.0100, L501.9520, L500.4050 ####[facility] [address] [place], [address] Carbon dioxide measurementOr dered By: Paola Corona on 10-24-2024 CO2 [Moles/Vol] 26.0 mmol/L 21.0-32.0 [facility] Chloride measurementOrdered By: Paola Corona on 10-24-2024 Chloride [Moles/Vol] 106 mmol/L 98-107 [facility] Metabolic Prof ilon 10-24-2024 Albumin [Mass/Vol] 3.9 g/dL Normal 3.2-5.[address] [facility] Comment on above: Performed By: #### L 100.0100, L501.9520, L500.4050 ####[facility] [address] [place], [address] Albumin/Globulin [Mass ratio] 1.0 {ratio} Normal 0.9-2.4 [facility] Comment on above: Performed By: #### L 100.0100, L501.9520, L500.4050 ####[facility] [address] [place], [address] ALK P 76 U/L Normal 45-117 [facility] Comment on above: Performed By: #### L 100.0100, L501.9520, L500.4050 ####[facility] [address] [place], [address] ALT [Catalytic activity/Vol] 27 U/L Normal 13-56 [facility] Comment on above: Performed By: #### L 100.0100, L501.9520, L500.4050 ####[facility] [address] [place], [address] AST [Catalytic activity/Vol] 26 U/L Normal 15-37 [facility] Comment on above: Performed By: #### L 100.0100, L501.9520, L500.4050 ####[facility] [address] [place], [address] Bilirubin [Mass/Vol] 0.20 mg/dL Normal 0.20-1.00 [facility] Comment on above: Result Comment: For patients on eltrombopag therapy, use of Dimension [place] TBIL is not recommended. Performed By: #### L 100.0100, L501.9520, L500.4050 ####[facility] [address] [place], [address] BUN/CRE 17.8 RATIO Normal 10-20 [facility] Comment on above: Performed By: #### L 100.0100, L501.9520, L500.4050 ####[facility] [address] [place], [address] CA,Total 9.4 mg/dL Normal 8.5-10.1 [facility] Comment on above: Performed By: #### L 100.0100, L501.9520, L500.4050 ####[facility] [address] [place], [address] Chloride [Moles/Vol] 106 mmol/L Normal 98-107 [facility] Comment on above: Performed By: #### L 100.0100, L501.9520, L500.4050 ####[facility] [address] [place], [address] CO2 [Moles/Vol] 26.0 mmol/L Normal 21.0-32.0 [facility] Comment on above: Performed By: #### L 100.0100, L501.9520, L500.4050 ####[facility] [address] [place], [address] Creatinine [Mass/Vol] 0.73 mg/dL Normal 0.55-1.02 [facility] Comment on above: Result Comment: The validity of the calculated GFR GFRAA in patients over 70 years has not been determined. Clinical correlation is essential. Performed By: #### L 100.0100, L501.9520, L500.4050 ####[facility] [address] [place], [address] EST GFR - AA 98 mL/min Normal >60 [facility] Comment on above: Result Comment: Afri can Chinese GFR Calc Performed By: #### L 100.0100, L501.9520, L500.4050 ####[facility] [address] [place], [address] GAP 5 Normal 5-15 [facility] Comment on above: Performed By: #### L 100.0100, L501.9520, L500.4050 ####[facility] [address] [place], [address] GFR/1.73 sq M.predicted among non-blacks MDRD (S/P/Bld) [Vol rate/Area] 81 mL/min/{1.73_m2} Normal >60 [facility] Comment on above: Result Comment: Non- GFR Calc Performed By: #### L 100.0100, L501.9520, L500.4050 ####[facility] [address] [place], [address] Globulin (S) [Mass/Vol] 4.1 g/dL Normal 2.2-4.2 [facility] Comment on above: Performed By: #### L 100.0100, L501.9520, L500.4050 ####[facility] [address] [place], [address] Glucose [Mass/Vol] 104 mg/dL Normal 74-[address] [facility] Comment on above: Result Comment: Fast ing Glucose result from 100 to 125 mg/dL suggests IMPAIRED HOMEOSTASIS per A.D.A. criteria. Performed By: #### L 100.0100, L501.9520, L500.4050 ####[facility] [address] [place], [address] Potassium [Moles/Vol] 3.4 mmol/L Low 3.5-5.1 [facility] Comment on above: Performed By: #### L 100.0100, L501.9520, L500.4050 ####[facility] [address] [place], [address] Sodium [Moles/Vol] 136 mmol/L Normal 136-[address] [facility] Comment on above: Performed By: #### L 100.0100, L501.9520, L500.4050 ####[facility] [address] [place], [address] T PROT 8.0 g/dL Normal 6.4-8.2 [facility] Comment on above: Performed By: #### L 100.0100, L501.9520, L500.4050 ####[facility] [address] [place], [address] Urea nitrogen [Mass/Vol] 13 mg/dL Normal 7-18 [facility] Comment on above: Performed By: #### L 100.0100, L501.9520, L500.4050 ####[facility] [address] [place], [address] Eosinophil percentageOrdered By: Paola Corona on 10-24-2024 Eosinophils/100 WBC (Bld) 0.4 % 0-5 [facility] Erythrocyte distribution wid th ratioOrdered By: Paola Corona on 10-24-2024 Erythrocyte distribution width (RBC) [Ratio] 12.0 % 11.6-14.6 [facility] Erythrocyte distribution wid th standard deviationOrdered By: Paola Corona on 10-24-2024 Erythrocyte distribution width (RBC) [Entitic vol] 40.2 fL 35.1-43.9 [facility] Estimated glomerular filtrat ion rate (GFR) AmericanOrdered By: Paola Corona on 10-24-2024 Estimated GFR (MDRD) Amer 98 mL/min >60 [facility] Comment on above: GFR Calc Glomerular filtration rate ( GFR) estimationOrdered By: Paola Corona on 10-24-2024 Estimated GFR (MDRD) Non-Af Amer 81 mL/min >60 [facility] Comment on above: Non- GFR Calc Glucose measurementOrdered B y: Paola Corona on 10-24-2024 Glucose [Mass/Vol] 104 mg/dL 74-[address] [facility] Comment on above: Fasting Glucose resu lt from 100 to 125 mg/dL suggests IMPAIRED HOMEOSTASIS per A.D.A. criteria. Hematocrit Auto (Bld) [Volum e fraction]Ordered By: Paola Corona on 10-24-2024 Hematocrit (Bld) [Volume fraction] 37.3 % 37-47 [facility] Hemoglobin measurementOrdere d By: Paola Corona on 10-24-2024 Hemoglobin (Bld) [Mass/Vol] 12.2 g/dL 12.0-15.0 [facility] Immature granulocytes/100 WB C Auto (Bld)Ordered By: Paola Corona on 10-24-2024 Immature granulocytes/100 WBC (Bld) 0.300 % 0.0-0.9 [facility] Comment on above: IG% - Immature Granu locytes (promyelocytes, myelocytes and metamyelocytes) > 1% indicates that a LEFT SHIFT is Present. Laboratory - Chemistry and C hemistry - challengeOrdered By: Paola Corona on 10-24-2024 AST [Catalytic activity/Vol] 26 U/L 15-37 [facility] Lymphocytes Auto (Unsp spec) [#/Vol]Ordered By: Paola Corona on 10-24-2024 Lymphocytes (Bld) [#/Vol] 1.01 10*3/uL 0.83-4.51 [facility] Lymphocytes/100 WBC Auto (Un sp spec)Ordered By: Paola Corona on 10-24-2024 Lymphocytes/100 WBC (Bld) 10.6 % Low 19-41 [facility] MCV (mean corpuscular volume ) determinationOrdered By: Paola Corona on 10-24-2024 MCV (RBC) [Entitic vol] 91.6 fL 81-99 [facility] Mean corpuscular hemoglobin (MCH) determinationOrdered By: Paola Corona on 10-24-2024 MCH (RBC) [Entitic mass] 30.0 pg 27.0-32.0 [facility] Mean corpuscular hemoglobin concentration (MCHC) determinationOrdered By: Paola Corona on 10-24-2024 MCHC (RBC) [Mass/Vol] 32.7 g/dL 32-36 [facility] Mean platelet volume determi nationOrdered By: Paola Corona on 10-24-2024 Platelet mean volume (Bld) [Entitic vol] 11.5 fL 6.2-12.0 [facility] Monocyte percentageOrdered B y: Paola Corona on 10-24-2024 Monocytes/100 WBC (Bld) 7.9 % 0-10 [facility] Neutrophil percentageOrdered By: Paola Corona on 10-24-2024 Neutrophils/100 WBC (Bld) 80.3 % High 47-70 [facility] Nucleated red blood cell per centageOrdered By: Paola Corona on 10-24-2024 Nucleated RBC/100 WBC (Bld) [Ratio] 0 % 0-5 [facility] Platelet countOrdered By: Guerrero Corona on 10-24-2024 Platelets (Bld) [#/Vol] 296 10*3/uL 150-450 [facility] Potassium measurementOrdered By: Paola Corona on 10-24-2024 Potassium [Moles/Vol] 3.4 mmol/L Low 3.5-5.1 [facility] RBC Auto (Bld) [#/Vol]Ordere d By: Paola Corona on 10-24-2024 RBC (Bld) [#/Vol] 4.07 10*6/uL Low 4.2-5.4 [facility] Serum anion gap measurementO rdered By: Paola Corona on 10-24-2024 Anion gap [Moles/Vol] 5 mmol/L 5-15 [facility] Serum globulin measurementOr dered By: Paola Corona on 10-24-2024 Globulin (S) [Mass/Vol] 4.1 g/dL 2.2-4.2 [facility] Serum or plasma alanine thompson otransferase (ALT) measurementOrdered By: Paola Corona on 10-24-2024 ALT [Catalytic activity/Vol] 27 U/L [facility] Serum or plasma albumin charlene urement (mass/volume)Ordered By: Paola Corona on 10-24-2024 Albumin [Mass/Vol] 3.9 g/dL 3.2-5.[address] [facility] Serum or plasma alkaline dameon sphatase measurementOrdered By: Paola Corona on 10-24-2024 ALP [Catalytic activity/Vol] 76 U/L 45-117 [facility] Serum or plasma calcium charlene urement (mass/volume)Ordered By: Paola Corona on 10-24-2024 Calcium [Mass/Vol] 9.4 mg/dL 8.5-10.[address] [facility] Serum or plasma creatinine m easurement (mass/volume)Ordered By: Paola Corona on 10-24-2024 Creatinine [Mass/Vol] 0.73 mg/dL 0.55-1.02 [facility] Comment on above: The validity of the calculated GFR & GFRAA in patients over 70 years has not been determined. Clinical correlation is essential. Serum or plasma urea nitroge n measurement (mass/volume)Ordered By: Paola Corona on 10-24-2024 Urea nitrogen [Mass/Vol] 13 mg/dL 7-18 [facility] Sodium levelOrdered By: Paola Corona on 10-24-2024 Sodium [Moles/Vol] 136 mmol/L 136-[address] [facility] TSH QnOrdered By: Paola naik on 10-24-2024 Thyroid Stimulating Hormone (TSH) 6.580 uIU/mL High 0.358-3.740 [facility] Thyroid Stim Hormone (TSH)on 10-24-2024 TSH 6.580 uIU/mL High 0.358-3.740 [facility] Comment on above: Performed By: #### L 100.0100, L501.9520, L500.4050 ####[facility] [address] [place], [address] Total proteinOrdered By: Paola Corona on 10-24-2024 Protein [Mass/Vol] 8.0 g/dL 6.4-8.[address] [facility] White blood cell (WBC) count Ordered By: Paola Corona on 10-24-2024 WBC (Bld) [#/Vol] 9.6 10*3/uL 4.4-11.[address] [facility] Urgent Care Visit Reporton 0 10-21-2024 Urgent Care Visit Report [facility] [address], [address] [place] [address] OFFICE VISIT Date of Service: 10/21/24 MR#: [id number] Acct: [id number] Name: LUZ CLANCY Rep #: [id number] : 1940 Provider: MARLY Fox Age/Sex: 84/F Location[facility] Status: Signed Intake Vital Signs 04/05/24 14:52 10/21/24 06:35 Height 5 ft 5 in BP 160/76 H Blood Pressure Location Lt brachial Position Sitting Respiration 16 Pulse 116 H Pulse Source NIBP Temp 97.9 F Temp Source Oral Pulse Oximetry (%) 97 Oxygen Delivery Method room air Intake Visit Reasons: BACK PAIN Chief Complaint: upper back pain Radar Repairer Required: No Is patient in pain?: Yes [...] Garcia Signature: Date (if applicable) CC: Normal [facility] Abdomen Limitedon 05-18-2024 [facility] [address] [place] [address] Abdomen Limited MR#: [id number] Acct: [id number] Name: LUZ CLANCY Rep #: [id number] : 1940 F 84 From: Rahel emerson MD PCP: Dr. Paola Corona MD Status: REG CLI Study: Abdomen Limited Date of Exam: 05/18/24 Exam# [id number] Ordering Dr: Paola Corona MD [id number] HISTORY: nausea. TECHNIQUE: Rodríguez scale and color [...] EDT , CC: Dr. Paola Corona MD Surgical Dental Assistant: Signed Normal [facility] Culture, urineOrdered By: Damaris Parrish on 02-04-2024 Bacteria identified Cx Nom (U) Streptococcus mitis/ oralis [facility] Laboratory - Chemistry and C hemistry - challengeon 02-04-2024 Bilirubin Ql (U) Negative [facility] Glucose Ql (U) Negative [facility] Ketones Ql (U) Negative [facility] pH (U) 6.0 [pH] [facility] Specific gravity (U) [Rel density] 1.010 [facility] Urobilinogen (U) [Mass/Vol] Negative [facility] - Hematology and Cell countson 02-04-2024 Hemoglobin Ql (U) Negative [facility] - Specimen inform ationon 02-04-2024 Clarity (U) Clear [facility] Color (U) YELLOW [facility] - Urinalysison Nitrite Ql (U) Negative [facility] Protein Ql (U) Negative [facility] No Panel Informationon 02-03 Urine Leukocytes Negatve [facility] Urine Non-Hemolyzed Blood [facility] Absolute lymphocyte countOrd ered By: Carlos Bernal on 03-30-2023 Lymphocytes Auto (Unsp spec) [#/Vol] 0.90 10*3/uL 0.83-4.51 [facility] Basophil percentageOrdered B y: Carlos Bernal on 03-30-2023 Basophils/100 WBC (Bld) 0.5 % 0-1 [facility] Bilirubin [Mass/Vol] 0.30 mg/dL 0.20-1.00 [facility] Comment on above: For patients on eltr ombopag therapy, use of Dimension [place] TBIL is not recommended. Chloride [Moles/Vol] 105 mmol/L 98-107 [facility] Eosinophils/100 WBC (Bld) 1.0 % 0-5 [facility] Glucose [Mass/Vol] 100 mg/dL 74-[address] [facility] Comment on above: Fasting Glucose resu lt from 100 to 125 mg/dL suggests IMPAIRED HOMEOSTASIS per A.D.A. criteria. LDH [Catalytic activity/Vol] 287 U/L 84-246 [facility] Neutrophils (Bld) [#/Vol] 2.7 10*3/uL 2.0-7.7 [facility] Neutrophils/100 WBC (Bld) 68.4 % 47-70 [facility] Potassium [Moles/Vol] 4.1 mmol/L 3.5-5.1 [facility] Protein [Mass/Vol] 8.0 g/dL 6.4-8.[address] [facility] Sodium [Moles/Vol] 136 mmol/L 136-[address] [facility] WBC (Bld) [#/Vol] 3.9 10*3/uL 4.4-11.[address] [facility] Blood erythrocytes count (nu mber/volume)Ordered By: Carlos Bernal on 03-30-2023 RBC (Bld) [#/Vol] 3.98 10*6/uL 4.2-5.4 [facility] Blood hemoglobin measurement (mass/volume)Ordered By: Carlos Bernal on 03-30-2023 Hemoglobin (Bld) [Mass/Vol] 11.8 g/dL 12.0-15.0 [facility] Blood lymphocytes/100 leukoc ytesOrdered By: Carlos Bernal on 03-30-2023 Lymphocytes/100 WBC (Bld) 23.1 % 19-41 [facility] Blood monocytes/100 leukocyt esOrdered By: Carlos Bernal on 03-30-2023 Monocytes/100 WBC (Bld) 6.7 % 0-10 [facility] Blood platelet mean volumeOr dered By: Carlos Bernal on 03-30-2023 Platelet mean volume (Bld) [Entitic vol] 11.3 fL 6.2-12.0 [facility] Determination of erythrocyte mean corpuscular volume (MCV)Ordered By: Carlos Bernal on 03-30-2023 MCV (RBC) [Entitic vol] 93.7 fL 81-99 [facility] Hematocrit Auto (Bld) [Volum e fraction]Ordered By: Carlos Bernal on 03-30-2023 Hematocrit (Bld) [Volume fraction] 37.3 % 37-47 [facility] Laboratory - Chemistry and C hemistry - challengeOrdered By: Carlos Bernal on 03-30-2023 ALP [Catalytic activity/Vol] 62 U/L 45-117 [facility] ALT [Catalytic activity/Vol] 35 U/L 13-56 [facility] CO2 [Moles/Vol] 26.0 mmol/L 21.0-32.0 [facility] Globulin (S) [Mass/Vol] 3.9 g/dL 2.2-4.2 [facility] Urea nitrogen/Creatinine [Mass ratio] 20.2 mg/mg 10-20 [facility] - Hematology and Cell countsOrdered By: Carlos Bernal on 03-30-2023 Erythrocyte distribution width (RBC) [Entitic vol] 42.2 fL 35.1-43.9 [facility] Erythrocyte distribution width (RBC) [Ratio] 12.3 % 11.6-14.6 [facility] Immature granulocytes/100 WBC (Bld) 0.300 % 0.0-0.9 [facility] Comment on above: IG% - Immature Granu locytes (promyelocytes, myelocytes and metamyelocytes) > 1% indicates that a LEFT SHIFT is Present. MCH (RBC) [Entitic mass] 29.6 pg 27.0-32.0 [facility] Nucleated RBC/100 WBC (Bld) [Ratio] 0 % 0-5 [facility] MCHC Auto (RBC) [Mass/Vol]Or dered By: Carlos Bernal on 03-30-2023 MCHC (RBC) [Mass/Vol] 31.6 g/dL 32-36 [facility] No Panel InformationOrdered By: Carlos Bernal on 03-30-2023 CA 125 Antigen 21.8 U/mL 0.0-38.1 [facility] Comment on above: [facility] El ectrochemiluminescence Immunoassay(ECLIA)Values obtained with different assay methods or kits cannotbe used interchangeably. Results cannot be interpreted asabsolute evidence of the presence or absence of malignantdisease.Performed at: [facility] [address] [id number] Director: Guero Smyth PhD, Phone: [phone] Estimated Creatinine Clearance Calc 44.61 ml/min [facility] Estimated GFR (MDRD) Amer 78 mL/min >60 [facility] Comment on above: GFR Calc Estimated GFR (MDRD) Non-Af Amer 64 mL/min >60 [facility] Comment on above: Non- GFR Calc Reactive Lymphocytes RARE [facility] Platelets bldOrdered By: Scot Bernal on 03-30-2023 Platelets (Bld) [#/Vol] 237 10*3/uL 150-450 [facility] Serum or plasma albumin charlene urement (mass/volume)Ordered By: Carlos Bernal on 03-30-2023 Albumin [Mass/Vol] 4.1 g/dL 3.2-5.[address] [facility] Serum or plasma albumin/glob ulin mass ratioOrdered By: Carlos Bernal on 03-30-2023 Albumin/Globulin [Mass ratio] 1.1 {ratio} 0.9-2.4 [facility] Serum or plasma calcium charlene urement (mass/volume)Ordered By: Carlos Bernal on 03-30-2023 Calcium [Mass/Vol] 9.8 mg/dL 8.5-10.[address] [facility] Serum or plasma creatinine m easurement (mass/volume)Ordered By: Carlos Bernal on 03-30-2023 Creatinine [Mass/Vol] 0.89 mg/dL 0.55-1.02 [facility] Comment on above: The validity of the calculated GFR & GFRAA in patients over 70 years has not been determined. Clinical correlation is essential. Serum or plasma urea nitroge n measurement (mass/volume)Ordered By: Carlos Bernal on 03-30-2023 Urea nitrogen [Mass/Vol] 18 mg/dL 7-18 [facility] Thin prep Papanicolaou smear with manual screeningOrdered By: Carlos Bernal on 03-30-2023 Thin prep Papanicolaou smear with manual screening 33 U/L 15-37 [facility] Thin prep Papanicolaou smear with manual screening 5 5-15 [facility] Absolute lymphocyte countOrd ered By: Dr. Bernal on 03-16-2023 Lymphocytes Auto (Unsp spec) [#/Vol] 0.80 10*3/uL 0.83-4.51 [facility] Basophil percentageOrdered B y: Dr. Bernal on 03-16-2023 Basophils/100 WBC (Bld) 0.8 % 0-1 [facility] Bilirubin [Mass/Vol] 0.40 mg/dL 0.20-1.00 [facility] Comment on above: For patients on eltr ombopag therapy, use of Dimension [place] TBIL is not recommended. Chloride [Moles/Vol] 108 mmol/L 98-107 [facility] Eosinophils/100 WBC (Bld) 1.8 % 0-5 [facility] Glucose [Mass/Vol] 90 mg/dL 74-[address] [facility] LDH [Catalytic activity/Vol] 300 U/L 84-246 [facility] Neutrophils (Bld) [#/Vol] 3.6 10*3/uL 2.0-7.7 [facility] Neutrophils/100 WBC (Bld) 72.1 % 47-70 [facility] Potassium [Moles/Vol] 3.3 mmol/L 3.5-5.1 [facility] Protein [Mass/Vol] 8.4 g/dL 6.4-8.[address] [facility] Sodium [Moles/Vol] 140 mmol/L 136-[address] [facility] WBC (Bld) [#/Vol] 4.9 10*3/uL 4.4-11.[address] [facility] Blood erythrocytes count (nu mber/volume)Ordered By: Dr. Bernal on 03-16-2023 RBC (Bld) [#/Vol] 4.04 10*6/uL 4.2-5.4 [facility] Blood hemoglobin measurement (mass/volume)Ordered By: Dr. Bernal on 03-16-2023 Hemoglobin (Bld) [Mass/Vol] 12.0 g/dL 12.0-15.0 [facility] Blood lymphocytes/100 leukoc ytesOrdered By: Dr. Bernal on 03-16-2023 Lymphocytes/100 WBC (Bld) 16.2 % 19-41 [facility] Blood monocytes/100 leukocyt esOrdered By: Dr. Bernal on 03-16-2023 Monocytes/100 WBC (Bld) 8.9 % 0-10 [facility] Blood platelet mean volumeOr dered By: Dr. Bernal on 03-16-2023 Platelet mean volume (Bld) [Entitic vol] 12.9 fL 6.2-12.0 [facility] Determination of erythrocyte mean corpuscular volume (MCV)Ordered By: Dr. Bernal on 03-16-2023 MCV (RBC) [Entitic vol] 95.3 fL 81-99 [facility] Hematocrit Auto (Bld) [Volum e fraction]Ordered By: Dr. Bernal on 03-16-2023 Hematocrit (Bld) [Volume fraction] 38.5 % 37-47 [facility] - Chemistry and C hemistry - challengeOrdered By: Dr. Bernal on 03-16-2023 ALP [Catalytic activity/Vol] 61 U/L 45-117 [facility] ALT [Catalytic activity/Vol] 30 U/L 13-56 [facility] CO2 [Moles/Vol] 26.0 mmol/L 21.0-32.0 [facility] Globulin (S) [Mass/Vol] 4.4 g/dL 2.2-4.2 [facility] Urea nitrogen/Creatinine [Mass ratio] 22.6 mg/mg 10-20 [facility] - Hematology and Cell countsOrdered By: Dr. Bernal on 03-16-2023 Erythrocyte distribution width (RBC) [Entitic vol] 44.4 fL 35.1-43.9 [facility] Erythrocyte distribution width (RBC) [Ratio] 12.7 % 11.6-14.6 [facility] Immature granulocytes/100 WBC (Bld) 0.200 % 0.0-0.9 [facility] Comment on above: IG% - Immature Granu locytes (promyelocytes, myelocytes and metamyelocytes) > 1% indicates that a LEFT SHIFT is Present. MCH (RBC) [Entitic mass] 29.7 pg 27.0-32.0 [facility] Nucleated RBC/100 WBC (Bld) [Ratio] 0 % 0-5 [facility] MCHC Auto (RBC) [Mass/Vol]Or dered By: Dr. Brenal on 03-16-2023 MCHC (RBC) [Mass/Vol] 31.2 g/dL 32-36 [facility] No Panel InformationOrdered By: Dr. Bernal on 03-16-2023 CA 125 Antigen 21.6 U/mL 0.0-38.1 [facility] Comment on above: [facility] El ectrochemiluminescence Immunoassay(ECLIA)Values obtained with different assay methods or kits cannotbe used interchangeably. Results cannot be interpreted asabsolute evidence of the presence or absence of malignantdisease.Performed at: [facility] [employer] [id number] Director: Guero Smyth PhD, Phone: [phone] Estimated GFR (MDRD) Amer 89 mL/min >60 [facility] Comment on above: GFR Calc Estimated GFR (MDRD) Non-Af Amer 73 mL/min >60 [facility] Comment on above: Non- GFR Calc Platelets bldOrdered By: Dr. Bernal on 03-16-2023 Platelets (Bld) [#/Vol] 216 10*3/uL 150-450 [facility] Serum or plasma albumin charlene urement (mass/volume)Ordered By: Dr. Bernal on 03-16-2023 Albumin [Mass/Vol] 4.0 g/dL 3.2-5.[address] [facility] Serum or plasma albumin/glob ulin mass ratioOrdered By: Dr. Bernal on 03-16-2023 Albumin/Globulin [Mass ratio] 0.9 {ratio} 0.9-2.4 [facility] Serum or plasma calcium charlene urement (mass/volume)Ordered By: Dr. Bernal on 03-16-2023 Calcium [Mass/Vol] 9.9 mg/dL 8.5-10.[address] [facility] Serum or plasma creatinine m easurement (mass/volume)Ordered By: Dr. Bernal on 03-16-2023 Creatinine [Mass/Vol] 0.80 mg/dL 0.55-1.02 [facility] Comment on above: The validity of the calculated GFR & GFRAA in patients over 70 years has not been determined. Clinical correlation is essential. Serum or plasma urea nitroge n measurement (mass/volume)Ordered By: Dr. Bernal on 03-16-2023 Urea nitrogen [Mass/Vol] 18 mg/dL 7-18 [facility] Thin prep Papanicolaou smear with manual screeningOrdered By: Dr. Bernal on 03-16-2023 Thin prep Papanicolaou smear with manual screening 31 U/L 15-37 [facility] Thin prep Papanicolaou smear with manual screening 6 5-15 [facility] Absolute lymphocyte counton 06-05-2022 Lymphocytes Auto (Unsp spec) [#/Vol] 1.18 10*3/uL 0.83-4.51 [facility] Work Phone: Basophil percentageon 2021 Basophil percentage 0 SEEN /hpf 0-5 [facility] Work Phone: Basophils/100 WBC (Bld) 0.4 % 0-1 [facility] Work Phone: Bilirubin [Mass/Vol] 0.70 mg/dL 0.20-1.00 [facility] Work Phone: Comment on above: For patients on eltr ombopag therapy, use of Dimension [place] TBIL is not recommended. Chloride [Moles/Vol] 108 mmol/L 98-107 [facility] Work Phone: Eosinophils/100 WBC (Bld) 1.5 % 0-5 [facility] Work Phone: Glucose [Mass/Vol] 113 mg/dL 74-[address] [facility] Work Phone: [phone] Comment on above: Fasting Glucose resu lt from 100 to 125 mg/dL suggests IMPAIRED HOMEOSTASIS per A.D.A. criteria. Lactate [Moles/Vol] 1.6 mmol/L 0.4-2.0 [facility] Work Phone: Neutrophils (Bld) [#/Vol] 3.1 10*3/uL 2.0-7.7 [facility] Work Phone: Neutrophils/100 WBC (Bld) 65.7 % 47-70 [facility] Work Phone: Potassium [Moles/Vol] 3.3 mmol/L 3.5-5.1 [facility] Work Phone: Protein [Mass/Vol] 7.6 g/dL 6.4-8.[address] [facility] Work Phone: Sodium [Moles/Vol] 141 mmol/L 136-[address] [facility] Work Phone: WBC (Bld) [#/Vol] 4.8 10*3/uL 4.4-11.[address] [facility] Work Phone: [phone] Bilirubin Test strip Ql (U)o n 08-25-2022 Bilirubin Ql (U) Negative Negative [facility] Work Phone: [phone] Blood erythrocytes count (nu mber/volume)on 06-05-2022 RBC (Bld) [#/Vol] 4.09 10*6/uL 4.2-5.4 [facility] Work Phone: [phone] Blood hemoglobin measurement (mass/volume)on 06-05-2022 Hemoglobin (Bld) [Mass/Vol] 12.3 g/dL 12.0-15.0 [facility] Work Phone: Blood lymphocytes/100 leukoc yteson 06-05-2022 Lymphocytes/100 WBC (Bld) 24.8 % 19-41 [facility] Work Phone: Blood monocytes/100 leukocyt eson 06-05-2022 Monocytes/100 WBC (Bld) 7.6 % 0-10 [facility] Work Phone: Blood platelet mean volumeon 06-05-2022 Platelet mean volume (Bld) [Entitic vol] 11.6 fL 6.2-12.0 [facility] Work Phone: [phone] Determination of erythrocyte mean corpuscular volume (MCV)on 06-05-2022 MCV (RBC) [Entitic vol] 91.2 fL 81-99 [facility] Work Phone: Hematocrit Auto (Bld) [Volum e fraction]on 06-05-2022 Hematocrit (Bld) [Volume fraction] 37.3 % 37-47 [facility] Work Phone: [phone] INR in Blood by Coagulation assayon 06-05-2022 INR Coag (Bld) [Relative time] 1.0 {INR} [facility] Work Phone: [phone] Ketones Test strip Ql (U)on 06-05-2022 Ketones Ql (U) 5 mg/dl Negative [facility] Work Phone: [phone] Laboratory - Chemistry and C hemistry - challengeon 06-05-2022 ALP [Catalytic activity/Vol] 72 U/L 45-117 [facility] Work Phone: ALT [Catalytic activity/Vol] 24 U/L 13-56 [facility] Work Phone: CO2 [Moles/Vol] 24.0 mmol/L 21.0-32.0 [facility] Work Phone: Globulin (S) [Mass/Vol] 3.4 g/dL 2.2-4.2 [facility] Work Phone: Urea nitrogen/Creatinine [Mass ratio] 13.2 mg/mg 10-20 [facility] Work Phone: [phone] Laboratory - Coagulationon 0 06-05-2022 aPTT Coag (Bld) [Time] 24.3 s 24.1-36.2 [facility] Work Phone: PT Coag (PPP) [Time] 12.7 s 11.7-14.9 [facility] Work Phone: [phone] Laboratory - Hematology and Cell countson 06-05-2022 Erythrocyte distribution width (RBC) [Entitic vol] 39.8 fL 35.1-43.9 [facility] Work Phone: Erythrocyte distribution width (RBC) [Ratio] 11.9 % 11.6-14.6 [facility] Work Phone: Immature granulocytes/100 WBC (Bld) 0.000 % 0.0-0.9 [facility] Work Phone: [phone] Comment on above: IG% - Immature Granu locytes (promyelocytes, myelocytes and metamyelocytes) > 1% indicates that a LEFT SHIFT is Present. MCH (RBC) [Entitic mass] 30.1 pg 27.0-32.0 [facility] Work Phone: Nucleated RBC/100 WBC (Bld) [Ratio] 0 % 0-5 [facility] Work Phone: MCHC Auto (RBC) [Mass/Vol]on 06-05-2022 MCHC (RBC) [Mass/Vol] 33.0 g/dL 32-36 [facility] Work [facility]: Mucus LM Ql (Urine sed)on Mucus Ql (Urine sed) 0 SEEN /hpf [facility] Work Phone: Nitrite Test strip Ql (U)on 06-05-2022 Nitrite Ql (U) Negative Negative [facility] Work Phone: No Panel Informationon 06-05 Estimated Creatinine Clearance Calc 47.26 ml/min [facility] Work Phone: Estimated GFR (MDRD) Amer 84 mL/min >60 [facility] Work Phone: Comment on above: GFR Calc Estimated GFR (MDRD) Non-Af Amer 70 mL/min >60 [facility] Work Phone: Comment on above: Non- GFR Calc Troponin I High Sensitivity 7 pg/mL 3.0-54.0 [facility] Work Phone: Comment on above: Please Note: New Neelima t Units and Gender Specific Reference Ranges. For more information see Policy Stat Procedure [place] High Sensitivity Troponin (TNIH) and attachments. Platelets bldon 06-05-2022 Platelets (Bld) [#/Vol] 228 10*3/uL 150-450 [facility] Work Phone: Protein Test strip Ql (U)on 06-05-2022 Protein Ql (U) Negative Negative [facility] Work Phone: Serum or plasma albumin charlene urement (mass/volume)on 06-05-2022 Albumin [Mass/Vol] 4.2 g/dL 3.2-5.[address] [facility] Work Phone: Serum or plasma albumin/glob ulin mass ratioon 06-05-2022 Albumin/Globulin [Mass ratio] 1.2 {ratio} 0.9-2.4 [facility] Work Phone: Serum or plasma calcium charlene urement (mass/volume)on 06-05-2022 Calcium [Mass/Vol] 9.5 mg/dL 8.5-10.[address] [facility] Work Phone: Serum or plasma creatinine m easurement (mass/volume)on 06-05-2022 Creatinine [Mass/Vol] 0.84 mg/dL 0.55-1.02 [facility] Work Phone: Comment on above: The validity of the calculated GFR & GFRAA in patients over 70 years has not been determined. Clinical correlation is essential. Serum or plasma urea nitroge n measurement (mass/volume)on 06-05-2022 Urea nitrogen [Mass/Vol] 11 mg/dL 7-18 [facility] Work Phone: Squamous epithelial cells de tection in urine sediment by light microscopyon 06-05-2022 Epithelial cells.squamous LM Ql (Urine sed) 0 SEEN /hpf 5-10 [facility] Work Phone: Thin prep Papanicolaou smear with manual screeningon 06-05-2022 Thin prep Papanicolaou smear with manual screening 24 U/L 15-37 [facility] Work Phone: Thin prep Papanicolaou smear with manual screening 9 5-15 [facility] Work Phone: Urine blood detectionon 05-13 RBC Ql (U) Negative Negative [facility] Work Phone: RBC Ql (U) 0 SEEN /hpf 0-5 [facility] Work Phone: Urine clarityon 06-05-2022 Clarity (U) Clear Clear [facility] Work Phone: Urine color determinationon 06-05-2022 Color (U) Yellow Yellow [facility] Work Phone: Urine glucose detectionon Glucose Ql (U) Normal mg/dl Normal [facility] Work Phone: Urine leukocyte esterase det ection by dipstickon 06-05-2022 Leukocyte esterase Test strip Ql (U) 25 /ul Negative [facility] Work Phone: Urine pHon 06-05-2022 pH (U) 8.0 [pH] 5.0 - 8.0 [facility] Work Phone: Urine sediment bacteria coun t by microscopy (number/high power field)on 06-05-2022 Bacteria LM.HPF (Urine sed) [#/Area] 0 /[HPF] None Seen [facility] Work Phone: Urine specific gravity measu rementon 06-05-2022 Specific gravity (U) [Rel density] 1.015 1.002-1.030 [facility] Work Phone: Urobilinogen Auto test strip Ql (U)on 06-05-2022 Urobilinogen Ql (U) Normal mg/dl Normal [facility] Work Phone: Absolute lymphocyte counton 03-12-2022 Lymphocytes Auto (Unsp spec) [#/Vol] 0.97 10*3/uL 0.83-4.51 [facility] Work Phone: Basophil percentageon 2021 Basophils/100 WBC (Bld) 1.1 % 0-1 [facility] Work Phone: [phone] Bilirubin [Mass/Vol] 0.40 mg/dL 0.20-1.00 [facility] Work Phone: [phone] Comment on above: For patients on eltr ombopag therapy, use of Dimension [place] TBIL is not recommended. Chloride [Moles/Vol] 108 mmol/L 98-107 [facility] Work Phone: Eosinophils/100 WBC (Bld) 2.9 % 0-5 [facility] Work Phone: [phone] Glucose [Mass/Vol] 116 mg/dL 74-[address] [facility] Work Phone: Comment on above: Fasting Glucose resu lt from 100 to 125 mg/dL suggests IMPAIRED HOMEOSTASIS per A.D.A. criteria. Neutrophils (Bld) [#/Vol] 2.3 10*3/uL 2.0-7.7 [facility] Work Phone: Neutrophils/100 WBC (Bld) 60.7 % 47-70 [facility] Work Phone: [phone] Potassium [Moles/Vol] 3.7 mmol/L 3.5-5.1 [facility] Work Phone: Protein [Mass/Vol] 7.2 g/dL 6.4-8.2 [facility] Work Phone: Sodium [Moles/Vol] 140 mmol/L 136-145 [facility] Work Phone: WBC (Bld) [#/Vol] 3.8 10*3/uL 4.4-11.[address] [facility] Work Phone: Blood erythrocytes count (nu mber/volume)on 03-12-2022 RBC (Bld) [#/Vol] 3.65 10*6/uL 4.2-5.4 [facility] Work Phone: [phone] Blood hemoglobin measurement (mass/volume)on 03-12-2022 Hemoglobin (Bld) [Mass/Vol] 11.0 g/dL 12.0-15.0 [facility] Work Phone: Blood lymphocytes/100 leukoc yteson 03-12-2022 Lymphocytes/100 WBC (Bld) 25.5 % 19-41 [facility] Work Phone: Blood monocytes/100 leukocyt eson 03-12-2022 Monocytes/100 WBC (Bld) 9.5 % 0-10 [facility] Work Phone: Blood platelet mean volumeon 03-12-2022 Platelet mean volume (Bld) [Entitic vol] 11.0 fL 6.2-12.0 [facility] Work Phone: Determination of erythrocyte mean corpuscular volume (MCV)on 03-12-2022 MCV (RBC) [Entitic vol] 92.6 fL 81-99 [facility] Work Phone: Hematocrit Auto (Bld) [Volum e fraction]on 03-12-2022 Hematocrit (Bld) [Volume fraction] 33.8 % 37-47 [facility] Work Phone: [phone] Laboratory - Chemistry and C hemistry - challengeon 03-12-2022 ALP [Catalytic activity/Vol] 84 U/L 45-117 [facility] Work Phone: ALT [Catalytic activity/Vol] 31 U/L 13-56 [facility] Work Phone: [phone] CO2 [Moles/Vol] 25.0 mmol/L 21.0-32.0 [facility] Work Phone: [phone] Globulin (S) [Mass/Vol] 3.5 g/dL 2.2-4.2 [facility] Work Phone: [phone] Urea nitrogen/Creatinine [Mass ratio] 15.7 mg/mg 10-20 [facility] Work Phone: Laboratory - Hematology and Cell countson 03-12-2022 Erythrocyte distribution width (RBC) [Entitic vol] 41.8 fL 35.1-43.9 [facility] Work Phone: [phone] Erythrocyte distribution width (RBC) [Ratio] 12.2 % 11.6-14.6 [facility] Work Phone: [phone] Immature granulocytes/100 WBC (Bld) 0.300 % 0.0-0.9 [facility] Work Phone: [phone] Comment on above: IG% - Immature Granu locytes (promyelocytes, myelocytes and metamyelocytes) > 1% indicates that a LEFT SHIFT is Present. MCH (RBC) [Entitic mass] 30.1 pg 27.0-32.0 [facility] Work Phone: [phone] Nucleated RBC/100 WBC (Bld) [Ratio] 0 % 0-5 [facility] Work Phone: [phone] MCHC Auto (RBC) [Mass/Vol]on 03-12-2022 MCHC (RBC) [Mass/Vol] 32.5 g/dL 32-36 [facility] Work Phone: [phone] No Panel Informationon 03-12 CA 125 Antigen 13.5 U/mL 0.0-38.1 [facility] Work Phone: [phone] Comment on above: [facility] El ectrochemiluminescence Immunoassay(ECLIA)Values obtained with different assay methods or kits cannotbe used interchangeably. Results cannot be interpreted asabsolute evidence of the presence or absence of malignantdisease.Performed at: [facility] [employer] [id number] Director: Guero Smyth PhD, Phone: [phone] Estimated Creatinine Clearance Calc 48.64 ml/min [facility] Work Phone: Estimated GFR (MDRD) Amer 85 mL/min >60 [facility] Work Phone: Comment on above: GFR Calc Estimated GFR (MDRD) Non-Af Amer 71 mL/min >60 [facility] Work Phone: Comment on above: Non- GFR Calc Platelets bldon 03-12-2022 Platelets (Bld) [#/Vol] 212 10*3/uL 150-450 [facility] Work Phone: Serum or plasma albumin charlene urement (mass/volume)on 03-12-2022 Albumin [Mass/Vol] 3.7 g/dL 3.2-5.[address] [facility] Work Phone: Serum or plasma albumin/glob ulin mass ratioon 03-12-2022 Albumin/Globulin [Mass ratio] 1.1 {ratio} 0.9-2.4 [facility] Work Phone: Serum or plasma calcium charlene urement (mass/volume)on 03-12-2022 Calcium [Mass/Vol] 9.5 mg/dL 8.5-10.[address] [facility] Work Phone: Serum or plasma creatinine m easurement (mass/volume)on 03-12-2022 Creatinine [Mass/Vol] 0.83 mg/dL 0.55-1.02 [facility] Work Phone: Comment on above: The validity of the calculated GFR & GFRAA in patients over 70 years has not been determined. Clinical correlation is essential. Serum or plasma urea nitroge n measurement (mass/volume)on 03-12-2022 Urea nitrogen [Mass/Vol] 13 mg/dL 7-18 [facility] Work Phone: Thin prep Papanicolaou smear with manual screeningon 03-12-2022 Thin prep Papanicolaou smear with manual screening 23 U/L 15-37 [facility] Work Phone: Thin prep Papanicolaou smear with manual screening 7 5-15 [facility] Work Phone: Thin prep Papanicolaou smear with manual screening 251 U/L 84-246 [facility] Work Phone: CNOVon 10-08-2021 CNOV Office Visit ([facility]WSTR ) -- LUZ CLANCY Taiwo ([id number]) 1940 F Date Time Provider Department 10/08/21 7:30 AM [facility] During your visit today, we recorded the following information about you: Temperature Pulse Respiration Blood pressure 96.7 degrees 88/minute 16/minute 182/94 Weight 58.1 kg Seble Vann APRN.CNP 10/08/2021 8:25 AM Signed This note was created using [employer]. Subjective Luz Clancy is a 81 year old female. 81 year old female with PMH GERD presents with complaints of COVID concern. Acute onset of symptoms yesterday. +chills Denies SOB. Denies URI sx. Denies fever or chills. Denies N/V/D. Denies skin rash or lesions. Has had x 2 COVID She had + exposure to COVID on [place]. She is accompanied by her daughter and son in law who are here for same. The history is provided by the patient. No insurance verifier was used. Illness The current episode started [...] Laterality Date - COLONOSCOP W/ OR W/O [facility] SPEC 06/17/2006 Colonoscopy - COLONOSCOP W/ OR W/O [facility] SPEC 07/15/11 - COLONOSCOP W/ OR W/O [facility] SPEC 07/17/16 Colonoscopy (needs MAC next time) [...] Pulses: No (more content not included)... Normal [facility] COVID w FLU A+B Routon 10-08 Influenza A PCR Negative Normal [facility] Comment on above: Performed By: #### C OVFLU #### [facility] [address] [address] Influenza B PCR Negative Normal [facility] Comment on above: Performed By: #### C OVFLU #### [facility] [address], [place] [address] SARS-CoV-2 (COVID-19) RNA NAKUL+probe Ql (Unsp spec) UPPER RESPIRATORY TRACT SWAB Normal [facility] Comment on above: Performed By: #### C OVFLU #### [facility] [address] [place], [place] [address] SARS-CoV-2 (COVID-19) RNA NAKUL+probe Ql (Unsp spec) Negative for COVID19 (SARS CoV2) by RT-PCR or equivalent method. Normal Negative for COVID19 (SARS CoV2) by RT-PCR or equivalent method. [facility] Comment on above: Result Comment: This test was developed and its performance characteristics determined by [facility]'s [facility] [place]. This test has been authorized by FDA under an Emergency Use Authorization (EUA). This test has been validated in accordance with the FDA's Guidance Document Policy for Diagnostics Testing in Laboratories Certified to Perform High Complexity Testing under CLIA prior to Emergency use Authorization for Coronavirus Disease 2019 during the Public Health Emergency issued on December 10, 2019. Test performed by [facility], [facility] [place], [address] [place] [address]. Performed By: #### C OVFLU #### [facility] [address] [place] [address] Erythrocyte distribution wid th standard deviationon 03-16-2019 Erythrocyte distribution width (RBC) [Entitic vol] 40.4 fL 35.1-43.9 [facility] - Hematology and Cell countson 03-16-2019 Erythrocyte distribution width (RBC) [Ratio] 12.1 % 11.6-14.6 [facility] Total cell counton 9 Cells counted Molgen (Bld/Tiss) [#] Not Reportable [facility] - Coagulationon 10-24-2016 aPTT Coag (Bld) [Time] 25.9 s 24.1-36.2 [facility] INR Coag (Bld) [Relative time] 0.9 {INR} [facility] PT Coag (PPP) [Time] 11.4 s Low 11.7-14.9 [facility] Report: CBC W/Diff, Auto matedon 02-11-2017 Basophils/100 leukocytes 0.7 % Invalid Interpretation Code 0-1 [facility] Work Phone: Eosinophils/100 leukocytes 2.1 % Invalid Interpretation Code 0-5 [facility] Work Phone: Erythrocytes (RBC) 4.35 10*6/uL Invalid Interpretation Code 4.2-5.4 [facility] Work Phone: Hematocrit (HCT) 42.1 % Invalid Interpretation Code 37-47 [facility] Work Phone: Hemoglobin (HGB) 13.5 g/dL Invalid Interpretation Code 12.0-15.0 [facility] Work Phone: immature granulocytes, percentage of total cells, blood 0.000 % Invalid Interpretation Code 0.0-0.9 [facility] Work Phone: Lymphocytes 1.03 X10 3/UL Invalid Interpretation Code 0.83-4.51 [facility] Work Phone: Lymphocytes/100 leukocytes 23.5 % Invalid Interpretation Code 19-41 [facility] Work Phone: MCH 31.0 pg Invalid Interpretation Code 27.0-32.0 [facility] Work Phone: MCHC 32.1 G/GL Invalid Interpretation Code 32-36 [facility] Work Phone: MCV 96.8 fL Invalid Interpretation Code 81-99 [facility] Work Phone: Monocytes/100 leukocytes 9.6 % Invalid Interpretation Code 0-10 [facility] Work Phone: neutrophil count, blood 2.8 X10 3/UL Invalid Interpretation Code 2.0-7.7 [facility] Work Phone: Neutrophils/100 leukocytes 64.1 % Invalid Interpretation Code 47-70 [facility] Work Phone: Platelets 249 10*3/mm3 Invalid Interpretation Code 150-450 [facility] Work Phone: PMV by Kandis 11.0 fL Invalid Interpretation Code 6.2-12.0 [facility] Work Phone: RDW-CA 12.4 % Invalid Interpretation Code 11.6-14.6 [facility] Work Phone: red blood cell distribution width, size density 44.0 fL High 35.1-43.9 [facility] Work Phone: WBC (Leukocytes) 4.4 10*3/uL Invalid Interpretation Code 4.4-11.0 [facility] Work Phone: Lab Report: [facility] 02-11-2017 Alanine aminotransferase (ALT) 30 U/L Invalid Interpretation Code 12-78 [facility] Work Phone: Albumin 4.6 g/dL Invalid Interpretation Code 3.4-5.0 [facility] Work Phone: Albumin/Globulin Ratio 1.1 {ratio} Invalid Interpretation Code 0.9-2.4 [facility] Work Phone: Alkaline phosphatase (ALP) 73 U/L Invalid Interpretation Code 45-117 [facility] Work Phone: Anion gap 10 mmol/L Invalid Interpretation Code 5-15 [facility] Work Phone: Aspartate aminotransferase (AST) 23 U/L Invalid Interpretation Code 15-37 [facility] Work Phone: Bilirubin (total) 0.40 mg/dL Invalid Interpretation Code 0.20-1.00 [facility] Work Phone: BUN/Creatinine Ratio 19.1 RATIO Invalid Interpretation Code 10-20 [facility] Work Phone: Calcium 9.4 mg/dL Invalid Interpretation Code 8.5-10.1 [facility] Work Phone: Chloride 103 mmol/L Invalid Interpretation Code 98-107 [facility] Work Phone: CO2 26.0 mmol/L Invalid Interpretation Code 21.0-32.0 [facility] Work Phone: Creatinine 0.84 mg/dL Invalid Interpretation Code 0.55-1.02 [facility] Work Phone: eGFR (non-black) 85 mL/min/{1.73_m2} Invalid Interpretation Code >60 [facility] Work Phone: eGFR (non-black) 70 mL/min/{1.73_m2} Invalid Interpretation Code >60 [facility] Work Phone: Globulin 4.1 g/dL High 2.3-3.5 [facility] Work Phone: Glucose 89 mg/dL Invalid Interpretation Code 70-110 [facility] Work Phone: Potassium 3.7 mmol/L Invalid Interpretation Code 3.5-5.1 [facility] Work Phone: Protein 8.7 g/dL High 6.4-8.2 [facility] Work Phone: Sodium 139 mmol/L Invalid Interpretation Code 136-145 [facility] Work Phone: Urea nitrogen 16 mg/dL Invalid Interpretation Code 7-18 [facility] Work Phone: Lab Report: LDHon 02-11-2017 lactate dehydrogenase - serum 285 U/L High 84-246 [facility] Work Phone: Lab Report: Magnesiumon 05-0 Magnesium 2.5 mg/dL High 1.8-2.4 [facility] Work Phone: Lab Report: Uric Acidon 05-0 Urate 3.7 mg/dL Invalid Interpretation Code 2.6-6.0 [facility] Work Phone: Office Visit: 6 mo f/u - PHQ 9 Completeon 08-14-2016 Adolescent depression screening assessment Adolescent depression screening assessment Invalid Interpretation Code [facility] Work Phone: Adult depression screening assessment Adult depression screening assessment Invalid Interpretation Code [facility] Work Phone: Documentation of current medications (procedure) Done Invalid Interpretation Code [facility] Work Phone: Tobacco smoking status NHIS Never Invalid Interpretation Code [facility] Work Phone: Tobacco use CPHS Never smoker Invalid Interpretation Code [employer] Phone: Office Visit: 6 mo f/u - PHQ 9 Completeon 07-16-2016 Colonoscopy (procedure) Colonoscopy (procedure) Invalid Interpretation Code [facility] Work Phone: Office Visit: 6 mo f/u - PHQ 9 Completeon 10-15-2015 Breast Mammogram screening Normal Bilateral Invalid Interpretation Code [facility] Work Phone: Lab Report: Cancer Antigen 1 25on 07-27-2015 cancer 125 antigen 11.2 U/mL Invalid Interpretation Code 0.0-34.0 [facility] Work Phone: Lab Report: CBC W/Diff, Auto - EPLAB Onlyon 02-15-2015 Absolute Neutrophil count 1.5 X10 3/UL Low 2.0-7.7 [facility] Work Phone: Lab Report: Comprehensive Me tabolic Profilon 11-14-2014 GE use only - for [employer] import when terms are not otherwise specified 66 U/L Invalid Interpretation Code 50-136 [facility] Work Phone: Lab Report: LDHon 11-14-2014 Lactate dehydrogenase (LDH) 188 U/L Invalid Interpretation Code 87-241 [facility] Work Phone: Lab Report: Thyroid Stim Hor salvador (TSH)on 11-14-2014 Thyroid stimulating hormone (TSH) 4.78 u[iU]/mL Critically high 0.358-3.74 [facility] Work Phone: Lab Report: B12on 01-16-2014 vitamin b12, serum 424 pg/mL Normal 211-911 [facility] Work Phone: Lab Report: FOLon 01-16-2014 Folate 55.10 ng/mL High 3.1-17.5 [facility] Work Phone: Lab Report: LIVERon 01-17-20 14 Bilirubin (direct) 0.08 mg/dL Normal 0.00-0.30 [facility] Work Phone: Office Visit: 6 mo f/u - PHQ 9 Completeon 08-12-2006 General categories [interpretation] of Cervical or vaginal smear or scraping by Cyto stain Normal Invalid Interpretation Code [facility] Work Phone: Culture, urine Bacteria identified Cx Nom (U) Positive [facility] Work Phone: Laboratory - Microbiology an d Antimicrobial susceptibility Bacteria identified Cx Nom (Bld) No growth in 5 days. [facility] Work Phone: Vital Signs Date Time Vital Sign Value Performing Clinician Arsenio shearery 05-16-2025 08:46-0400 Body mass index (BMI) [Ratio] 20.7 kg/m2 Dr. Paola Corona MD Work Phone: [facility] 05-16-2025 08:46-0400 Body weight 56.[address] Paola Corona MD Work Phone: [facility] 05-16-2025 08:46-0400 Diastolic blood pressure 96 mm[Hg] Dr. Paola Corona MD Work Phone: [facility] 05-16-2025 08:46-0400 Heart rate 80 /min Dr. Paola Corona MD Work Phone: [facility] 05-16-2025 08:46-0400 Respiratory rate 18 /min Dr. Paola Corona MD Work Phone: [facility] 05-16-2025 08:46-0400 SaO2% (BldA) [Mass fraction] 98 % Dr. Paola Corona MD Work Phone: [facility] 05-16-2025 08:46-0400 Systolic blood pressure 167 mm[Hg] Dr. Paola Corona MD Work Phone: [facility] 05-10-2025 13:11-0400 Diastolic blood pressure 63 mm[Hg] Dr. Paola Corona MD Work Phone: [facility] 05-10-2025 13:11-0400 Heart rate 72 /min Dr. Paola Corona MD Work Phone: [facility] 05-10-2025 13:11-0400 Respiratory rate 18 /min Dr. Paola Corona MD Work Phone: [facility] 05-10-2025 13:11-0400 SaO2% (BldA) [Mass fraction] 100 % Dr. Paola Corona MD Work Phone: [facility] 05-10-2025 13:11-0400 Systolic blood pressure 123 mm[Hg] Dr. Paola Corona MD Work Phone: 0(264)201-239010 [place] [address] 05-10-2025 08:17-0400 Body height 165.[address] Paola Corona MD Work Phone: 9(812)559-074467 [address] 05-10-2025 08:17-0400 Body mass index (BMI) [Ratio] 20.5 kg/m2 Dr. Paola Corona MD Work Phone: 4(381)700-244167 [address] 05-10-2025 08:17-0400 Body temperature 98.6 [degF] Dr. Paola Corona MD Work Phone: 6(930)067-142152 [place] [address] 05-10-2025 08:17-0400 Body weight 55.[address] Paola Corona MD Work Phone: 4(703)682-475852 [place] [address] 04-24-2025 15:53-0400 Body height 165.[address] Paola Corona MD Work Phone: 3(489)736-357252 [place] [address] 04-24-2025 15:53-0400 Body mass index (BMI) [Ratio] 20.9 kg/m2 Dr. Paola Corona MD Work Phone: 7(422)337-208052 [place] [address] 04-24-2025 15:53-0400 Body temperature 98.8 [degF] Dr. Paola Corona MD Work Phone: 1(285)596-786352 [place] [address] 04-24-2025 15:53-0400 Body weight 57.[address] Paola Corona MD Work Phone: 0(411)904-009110 [place] [address] 04-24-2025 15:53-0400 Diastolic blood pressure 81 mm[Hg] Dr. Paola Corona MD Work Phone: 2(804)604-439852 [place] [address] 04-24-2025 15:53-0400 Heart rate 75 /min Dr. Paola Corona MD Work Phone: 1(659)292-440767 [address] 04-24-2025 15:53-0400 Respiratory rate 18 /min Dr. Paola Corona MD Work Phone: [facility] 04-24-2025 15:53-0400 SaO2% (BldA) [Mass fraction] 98 % Dr. Paola Corona MD Work Phone: [facility] 04-24-2025 15:53-0400 Systolic blood pressure 180 mm[Hg] Dr. Paola Corona MD Work Phone: 2(780)163-835810 [place] [address] 04-12-2025 14:56-0400 Body height 165.[address] Paola Corona MD Work Phone: 3(816)515-130667 [address] 04-12-2025 14:56-0400 Body mass index (BMI) [Ratio] 21 kg/m2 Dr. Paola Corona MD Work Phone: 6(335)092-317767 [address] 04-12-2025 14:56-0400 Body weight 57.[address] Paola Corona MD Work Phone: 9(638)287-354110 [place] [address] 04-12-2025 14:56-0400 Diastolic blood pressure 99 mm[Hg] Dr. Paola Corona MD Work Phone: 6(764)126-872910 [place] [address] 04-12-2025 14:56-0400 Heart rate 81 /min Dr. Paola Corona MD Work Phone: 9(201)136-189810 [place] [address] 04-12-2025 14:56-0400 Respiratory rate 15 /min Dr. Paola Corona MD Work Phone: 1(295)467-647710 [place] [address] 04-12-2025 14:56-0400 SaO2% (BldA) [Mass fraction] 99 % Dr. Paola Corona MD Work Phone: [facility] 04-12-2025 14:56-0400 Systolic blood pressure 171 mm[Hg] Dr. Paola Corona MD Work Phone: 6(049)307-781210 [place] [address] 01-11-2025 13:26-0400 Body mass index (BMI) [Ratio] 22.1 kg/m2 Dr. Paola Corona MD Work Phone: 7(378)674-995510 [place] [address] 01-11-2025 13:26-0400 Body weight 60.[address] Paola Corona MD Work Phone: [facility] 01-11-2025 13:26-0400 Diastolic blood pressure 99 mm[Hg] Dr. Paola Corona MD Work Phone: [facility] 01-11-2025 13:26-0400 Heart rate 99 /min Dr. Paola Corona MD Work Phone: 5(856)608-339210 [place] [address] 01-11-2025 13:26-0400 Respiratory rate 16 /min Dr. Paola Corona MD Work Phone: 5(882)604-341310 [place] [address] 01-11-2025 13:26-0400 Systolic blood pressure 177 mm[Hg] Dr. Paola Corona MD Work Phone: 1(558)533-374767 [address] 10-21-2024 06:35-0500 Body temperature 97.9 [degF] Dr. Paola Corona MD Work Phone: 7(641)491-353210 [place] [address] 10-21-2024 06:35-0500 Diastolic blood pressure 76 mm[Hg] Dr. Paola Corona MD Work Phone: 5(173)421-293310 [place] [address] 10-21-2024 06:35-0500 Heart rate 116 /min Dr. Paola Corona MD Work Phone: 3(879)159-144310 [place] [address] 10-21-2024 06:35-0500 Respiratory rate 16 /min Dr. Paola Corona MD Work Phone: 0(283)864-859610 [place] [address] 10-21-2024 06:35-0500 SaO2% (BldA) [Mass fraction] 97 % Dr. Paola Coroan MD Work Phone: 3(300)674-378810 [place] [address] 10-21-2024 06:35-0500 Systolic blood pressure 160 mm[Hg] Dr. Paola Corona MD Work Phone: [facility] 02-04-2024 06:47-0400 Body temperature 97.8 [degF] Dr. Paola Corona Work Phone: [facility] 02-04-2024 06:47-0400 Diastolic blood pressure 74 mm[Hg] Dr. Paola Corona Work Phone: [facility] 02-04-2024 06:47-0400 Heart rate 91 /min Dr. Paola Corona Work Phone: [facility] 02-04-2024 06:47-0400 Respiratory rate 17 /min Dr. Paola Corona Work Phone: [facility] 02-04-2024 06:47-0400 SaO2% (BldA) [Mass fraction] 99 % Dr. Paola Corona Work Phone: [facility] 02-04-2024 06:47-0400 Systolic blood pressure 158 mm[Hg] Dr. Paola Corona Work Phone: [facility] 12-26-2023 08:05-0400 Body temperature 98.1 [degF] Dr. Paola Corona Work Phone: [facility] 12-26-2023 08:05-0400 Diastolic blood pressure 84 mm[Hg] Dr. Paola Corona Work Phone: 3(398)774-127110 [place] [address] 12-26-2023 08:05-0400 Heart rate 101 /min Dr. Paola Corona Work Phone: [facility] 12-26-2023 08:05-0400 Respiratory rate 14 /min Dr. Paola Corona Work Phone: [facility] 12-26-2023 08:05-0400 SaO2% (BldA) [Mass fraction] 98 % Dr. Paola Corona Work Phone: [facility] 12-26-2023 08:05-0400 Systolic blood pressure 140 mm[Hg] Dr. Paola Corona Work Phone: [facility] 12-10-2023 07:08-0500 Body height 165.[address] Paola Corona Work Phone: [facility] 12-10-2023 07:08-0500 Body mass index (BMI) [Ratio] 21.9 kg/m2 Dr. Paola Corona Work Phone: [facility] 12-10-2023 07:08-0500 Body temperature 98 [degF] Dr. Paola Corona Work Phone: [facility] 12-10-2023 07:08-0500 Body weight 59.[address] Paola Corona Work Phone: [facility] 12-10-2023 07:08-0500 Diastolic blood pressure 80 mm[Hg] Dr. Paola Corona Work Phone: [facility] 12-10-2023 07:08-0500 Heart rate 97 /min Dr. Paola Corona Work Phone: [facility] 12-10-2023 07:08-0500 Respiratory rate 12 /min Dr. Paola Corona Work Phone: [facility] 12-10-2023 07:08-0500 SaO2% (BldA) [Mass fraction] 96 % Dr. Paola Corona Work Phone: [facility] 12-10-2023 07:08-0500 Systolic blood pressure 162 mm[Hg] Dr. Paola Corona Work Phone: [facility] 03-23-2023 13:28-0400 Body height 165.[address] Paola Corona Work Phone: [facility] 03-23-2023 13:28-0400 Body mass index (BMI) [Ratio] 21.6 kg/m2 Dr. Paola Corona Work Phone: [facility] 03-23-2023 13:28-0400 Body temperature 97.3 [degF] Dr. Paola Corona Work Phone: [facility] 03-23-2023 13:28-0400 Body weight 59.[address] Paola Corona Work Phone: [facility] 03-23-2023 13:28-0400 Diastolic blood pressure 81 mm[Hg] Dr. Paola Corona Work Phone: [facility] 03-23-2023 13:28-0400 Heart rate 87 /min Dr. Paola Corona Work Phone: [facility] 03-23-2023 13:28-0400 Respiratory rate 16 /min Dr. Paola Corona Work Phone: [facility] 03-23-2023 13:28-0400 SaO2% (BldA) [Mass fraction] 99 % Dr. Paola Corona Work Phone: [facility] 03-23-2023 13:28-0400 Systolic blood pressure 175 mm[Hg] Dr. Paola Corona Work Phone: [facility] 06-05-2022 10:31-0400 Body temperature 98.6 [degF] Dr. Paola Corona Work Phone: [facility] Work Phone: 06-05-2022 10:29-0400 Diastolic blood pressure 84 mm[Hg] Dr. Paola Corona Work Phone: [facility] Work Phone: 06-05-2022 10:29-0400 Heart rate 83 /min Dr. Paola Corona Work Phone: [facility] Work Phone: 06-05-2022 10:29-0400 Respiratory rate 18 /min Dr. Paola Corona Work Phone: [facility] Work Phone: 06-05-2022 10:29-0400 SaO2% (BldA) [Mass fraction] 96 % Dr. Paola Corona Work Phone: [facility] Work Phone: 06-05-2022 10:29-0400 Systolic blood pressure 144 mm[Hg] Dr. Paola Corona Work Phone: [facility] Work Phone: 06-05-2022 07:50-0400 Body height 165.[address] Paola Corona Work Phone: [facility] Work Phone: 06-05-2022 07:50-0400 Body mass index (BMI) [Ratio] 24.7 kg/m2 Dr. Paola Corona Work Phone: [facility] Work Phone: 06-05-2022 07:50-0400 Body weight 67.[address] Paola Corona Work Phone: [facility] Work Phone: 03-24-2022 15:22-0400 Body height 162.[address] Paola Corona Work Phone: [facility] Work Phone: 03-24-2022 15:22-0400 Body mass index (BMI) [Ratio] 23.1 kg/m2 Dr. Paola Corona Work Phone: [facility] Work Phone: 03-24-2022 15:22-0400 Body temperature 98.4 [degF] Dr. Paola Corona Work Phone: [facility] Work Phone: 03-24-2022 15:22-0400 Body weight 61.[address] Paola Corona Work Phone: [facility] Work Phone: 03-24-2022 15:22-0400 Diastolic blood pressure 96 mm[Hg] Dr. Paola Corona Work Phone: [facility] Work Phone: 03-24-2022 15:22-0400 Heart rate 82 /min Dr. Paola Corona Work Phone: [facility] Work Phone: 03-24-2022 15:22-0400 Respiratory rate 15 /min Dr. Paola Corona Work Phone: [facility] Work Phone: 03-24-2022 15:22-0400 SaO2% (BldA) [Mass fraction] 97 % Dr. Paola Corona Work Phone: [facility] Work Phone: 03-24-2022 15:22-0400 Systolic blood pressure 182 mm[Hg] Dr. Paola Corona Work Phone: [facility] Work Phone: 02-16-2022 13:58-0400 Diastolic blood pressure 85 mm[Hg] [facility] Work Phone: 02-16-2022 13:58-0400 Heart rate 75 /min [facility] Work Phone: 02-16-2022 13:58-0400 SaO2% (BldA) [Mass fraction] 98 % [facility] Work Phone: 02-16-2022 13:58-0400 Systolic blood pressure 186 mm[Hg] [facility] Work Phone: 02-16-2022 12:46-0400 Body height 162.56 cm [facility] Work Phone: 02-16-2022 12:46-0400 Body mass index (BMI) [Ratio] 22.3 kg/m2 [facility] Work Phone: 02-16-2022 12:46-0400 Body temperature 96.8 [degF] [facility] Work Phone: 02-16-2022 12:46-0400 Body weight 58.96 kg [facility] Work Phone: 02-16-2022 12:46-0400 Respiratory rate 18 /min [facility] Work Phone: 03-22-2020 14:59-0400 Body mass index (BMI) [Ratio] 21.8 kg/m2 Dr. Paola Corona Work Phone: [facility] 03-22-2020 14:59-0400 Body temperature 97.6 [degF] Dr. Paola Corona Work Phone: [facility] 03-22-2020 14:59-0400 Body weight 59.[address] Paola Corona Work Phone: [facility] 03-22-2020 14:59-0400 Diastolic blood pressure 82 mm[Hg] Dr. Paola Corona Work Phone: [facility] 03-22-2020 14:59-0400 Heart rate 74 /min Dr. Paola Corona Work Phone: [facility] 03-22-2020 14:59-0400 Respiratory rate 16 /min Dr. Paola Corona Work Phone: [facility] 03-22-2020 14:59-0400 SaO2% (BldA) [Mass fraction] 98 % Dr. Paola Corona Work Phone: [facility] 03-22-2020 14:59-0400 Systolic blood pressure 162 mm[Hg] Dr. Paola Corona Work Phone: [facility] 08-14-2016 13:23-0400 BMI (Body Mass Index) 22.1 kg/m2 Carlos Bernal MD [facility] Work Phone: 08-14-2016 13:23-0400 Body Temperature 98.1 [degF] [facility] Work Phone: 08-14-2016 13:23-0400 BP [...] [facility] Work Phone: 08-14-2016 [id number] Pulse Oximetry 98 % [facility] Work Phone: 08-14-2016 13:23-0400 Respiratory Rate 16 /min [facility] Work Phone: 08-14-2016 13:23-040 Weight 59.33 kg Carlos Bernal MD [facility] Work Phone: [phone] Weight 59.45 kg Carlos Bernal MD [facility] Work Phone: 11-21-2014 13:0500 Height 163.83 cm Carlos Bernal MD [facility] Work Phone: Encounters Encounter Date Encounter Type Care Provider Facility Start: 05-16-2025 End: 05-16-2025 Patient encounter procedure Laney HUNT -[facility] Work Phone: Start: 05-16-2025 End: 05-16-[address] Paola Corona MD Work Phone: -[facility] Start: 05-10-2025 Encounter for other preprocedural examination [facility] Start: 05-10-[address] Carlos Bernal MD -Cat Scan [facility] Work Phone: Start: 05-10-2025 [facility] Start: 05-02-2025 ambulatory [facility] Start: 05-02-[address] Carlos Bernal MD -[facility] Start: 04-24-2025 End: 04-24-[address] Carlos Bernal MD -[facility] Work Phone: Start: 04-24-2025 End: 04-24-[address] Paola Corona MD Work Phone: [facility] Start: 04-17-2025 End: 04-17-[address] Paola Corona MD Work Phone: -Cat Scan [facility] Start: 04-17-2025 End: 04-17-[address] Carlos Bernal MD -Cat Scan [facility] Work Phone: Start: 04-17-2025 End: 04-17-2025 ambulatory Lela Interiano MULTIPLEX OPERATOR Facility:[facility] Start: 04-12-[address] Carlos Bernal MD -[facility] Start: 04-12-2025 End: 04-12-[address] Carlos Bernal MD -[facility] Work Phone: Start: 04-12-2025 End: 04-12-[address] Paola Corona MD Work Phone: [facility] Start: 02-27-2025 End: 02-27-2025 Patient encounter procedure Lela Interiano MULTIPLEX OPERATOR-C -[facility] Start: 02-27-2025 End: 02-27-2025 ambulatory Lela Interiano MULTIPLEX OPERATOR Facility:[facility] Start: 02-07-2025 ambulatory Riley Mckeon Facility:[facility] Start: 02-07-2025 Non-patient / Non-visit Dr. Jaren [facility] Start: 02-03-2025 ambulatory Riley Toureori Facility:[facility] Start: 02-03-2025 Non-patient / Non-visit Dr. Jaren [facility]IAGO [facility] Start: 02-03-2025 End: 02-03-[address] Riley Mckeon MD -[facility] Work Phone: Start: 02-03-2025 End: 02-03-2025 ambulatory Riley Toureori Facility:[facility] Start: 01-11-2025 End: 01-11-[address] Riley Mckeon MD -[facility] Work Phone: Start: 01-11-2025 End: 01-11-2025 ambulatory Rileyperla Mckeon Facility:[facility] Start: 12-20-2024 End: 12-20-[address] Paola Corona MD Work Phone: [facility] Work Phone: Start: 12-20-2024 End: 12-20-[address] Paola Corona MD -Laboratory, [facility] Start: 12-20-2024 End: 12-20-2024 ambulatory Paola Corona Facility:[facility] Start: 10-24-2024 End: 10-24-[address] Paola Corona MD -Laboratory, [facility] Start: 10-24-2024 End: 10-24-2024 ambulatory Paola Corona Facility:[facility] Start: 10-21-2024 End: 10-21-2024 Patient encounter procedure [facility] Work Phone: Start: 10-21-2024 End: 10-21-2024 ambulatory Eagle LUKE [facility] [facility] Start: 05-18-2024 End: 05-18-2024 ambulatory Paola Corona Facility:[facility] Start: 02-04-2024 End: 02-04-[address] Paola Corona Work Phone: [facility] Work Phone: Start: 02-04-2024 End: 02-04-[address] Paola Corona Work Phone: [facility], Spec[facility] Work Phone: Start: 02-04-2024 End: 02-04-[address] Paola Corona Work Phone: [facility] Work Phone: Start: 12-26-2023 End: 12-26-[address] Paola Corona Work Phone: [facility] Work Phone: Start: 12-10-2023 End: 12-10-[address] Paola Corona Work Phone: [facility] Work Phone: Start: 04-20-2023 End: 04-20-[address] Paola Corona Work Phone: [facility] Work Phone: Start: 04-20-2023 End: 04-20-[address] Paola Corona Work Phone: [facility] Work Phone: Start: 03-30-[address] Paola dent Work Phone: [facility] Work Phone: Start: 03-23-2023 End: 03-23-[address] Paola Corona Work Phone: [facility] Work Phone: Start: 03-16-2023 End: 03-16-2023 ambulatory [facility] Work Phone: Start: 03-16-2023 End: 03-16-2023 Patient encounter procedure [facility] Start: 06-26-2022 End: 06-26-[address] Paola Corona Work Phone: [facility] Work Phone: Start: 06-26-2022 End: 06-26-[address] Paola Corona Work Phone: [facility], [facility] Start: 06-13-2022 End: 06-13-[address] Paola Corona Work Phone: [facility] Work Phone: Start: 06-13-2022 End: 06-13-[address] Paola Corona Work Phone: [facility], [place] Start: 06-05-2022 End: 06-05-2022 Emergency department patient visit Dr. Paola Corona Work Phone: [facility] Start: 04-07-2022 End: 04-07-[address] Paola Corona Work Phone: [facility] Start: 03-24-2022 End: 03-24-[address] Paola Corona Work Phone: [facility] Start: 03-12-[address] Paola detn Work Phone: [facility] Start: 02-16-2022 End: 02-16-2022 [facility] Date Procedure Procedure Detail Performing Clinician Start: 05-10-2025 Plain chest X-ray Dr. Indra Corona MD Work Phone: Start: 05-10-2025 Plain chest X-ray Dr. Indra Corona MD Work Phone: Start: 05-10-2025 Biopsy/Inj or Needle Placement Dr. Paola Corona MD Work Phone: Start: 05-02-2025 Positron emission to mography with computed tomography Dr. Paola Corona MD Work Phone: Start: 04-17-2025 CT of thorax, abdome n and pelvis with contrast Dr. Paola Corona MD Work Phone: Start: 03-22-[address] Paola Corona MD Work Phone: Start: 02-03-2025 Cardiovascular stres s test using pharmacologic stress agent Dr. Paola Corona MD Work Phone: Start: 01-11-2025 Evaluation of diagno stic study results Dr. Paola Coroan MD Work Phone: Start: 03-29-2024 Measurement of [...] Corona Work Phone: Start: 04-07-2022 Screening mammography Juan Manuel Corona Work Phone: Start: 02-16-2022 X-ray of chest posteroanterior view Start: 02-18-2017 End: 02-20-2017 *CMP Complete Metabolic Panel Niecy Corona Work Phone: Start: 02-18-2017 End: 02-20-2017 Lactate dehydrogenase (LDH) Niecy haywood Work Phone: Start: 02-18-2017 End: 02-20-2017 Magnesium Pemberton Alistair Corona Work Phone: Start: 02-18-2017 End: 02-20-2017 Urate Pemberton M Cj Work Phone: Start: 02-07-2016 End: 02-07-2016 *CBC with Differential Pember[place] M jC Work Phone: Start: 02-07-2016 End: 02-07-2016 *CMP Complete Metabolic Panel Niecy Sainz Cj Work Phone: Start: 02-07-2016 End: 02-14-2016 Ct abd&pelv 1+ section/regns Niecy Corona Work Phone: Start: 02-07-2016 End: 02-14-2016 Ct thorax w/o & w/dye Pemberton M Alam Work Phone: Start: 02-07-2016 End: 02-07-2016 Lactate dehydrogenase (LDH) Pemberton Alistair A haywood Work Phone: Start: 02-07-2016 End: 02-07-2016 Magnesium Pemberton Alistair Alam Work Phone: Start: 02-07-2016 End: 02-07-2016 Urate Niecy Sainz Alam Work Phone: Start: 07-26-2015 End: 07-26-2015 *CBC with Differential Pemberton M Alam Work Phone: Start: 07-26-2015 End: 07-26-2015 *CMP Complete Metabolic Panel Pemberton Alistair Alam Work Phone: Start: 07-26-2015 End: 07-27-2015 Cancer antigen 125 Pemberton Alistair Alam Work Phone: Start: 07-26-2015 End: 07-26-2015 Lactate dehydrogenase (LDH) Pemberton Alistair A haywood Work Phone: Start: 07-26-2015 End: 07-26-2015 Urate Niecy Sainz Alam Work Phone: Start: 02-15-2015 End: 02-14-2016 *CBC with Differential Pemberton M Alam Work Phone: Start: 11-13-2014 End: 02-08-2015 *CBC with Differential Pemberton M Alam Work Phone: Start: 11-13-2014 End: 02-08-2015 *CMP Complete Metabolic Panel Pemberton Alistair Alam Work Phone: Start: 11-13-2014 End: 02-08-2015 Cancer antigen 125 Pemberton Alistair Alam Work Phone: Start: 11-13-2014 End: 02-08-2015 Lactate dehydrogenase (LDH) Pemberton M A haywood Work Phone: Start: 11-13-2014 End: 02-08-2015 Thyroid stimulating hormone (TSH) Niecy Corona Work Phone: Start: 11-13-2014 End: 02-08-2015 Urate Niecy Corona Work Phone: Bacteria identified in Blood by Culture Dr. Paola Corona Work Phone: Urine culture Dr. Paola naik Work Phone: Viral antigen assay Dr. Paola Corona Work Phone: Plan of Treatment Date Care Activity Detail Author Start: 05-10-2025 Following clinical pathway protocol [facility] Start: 05-10-2025 Catheterization of vein [facility] Start: 05-10-2025 Oxygen therapy [facility] Start: 05-10-2025 Patient discharge [facility] Start: 05-10-2025 Vital signs measurements [facility] Start: 06-05-2022 End: 06-05-2022 [facility] Work Phone: Start: 06-05-2022 Blood culture [facility] Work Phone: Start: 02-18-2017 End: 08-14-2016 *CBC w/Diff - oncology ONLY [facility] Work Phone: Start: 02-18-2017 End: 02-20-2017 *CMP Complete Metabolic Panel *CMP Complete Metabolic Panel [facility] Work Phone: Start: 02-18-2017 End: 02-20-2017 Lactate dehydrogenase (LDH) *LDH -LDH (Lactate Dehydrogenase) [facility] Work Phone: Start: 02-18-2017 End: 02-20-2017 Magnesium *Magnesium [facility] Work Phone: Start: 02-18-2017 End: 02-20-2017 Urate *Uric Acid Blood [facility] Work Phone: Start: 08-14-2016 End: 02-14-2016 *CBC with Differential *CBC with Differential [facility] Work Phone: Start: 08-14-2016 End: 02-14-2016 *CMP Complete Metabolic Panel *CMP Complete Metabolic Panel [facility] Work Phone: Start: 08-14-2016 End: 02-14-2016 Lactate dehydrogenase (LDH) *LDH -LDH (Lactate Dehydrogenase) [facility] Work Phone: Start: 08-14-2016 End: 02-14-2016 Urate *Uric Acid Blood [facility] Work Phone: Start: 02-14-2016 End: 02-07-2016 *CBC with Differential *CBC with Differential [facility] Work Phone: Start: 02-14-2016 End: 02-07-2016 *CMP Complete Metabolic Panel *CMP Complete Metabolic Panel [facility] Work Phone: Start: 02-14-2016 End: 02-07-2016 Lactate dehydrogenase (LDH) *LDH -LDH (Lactate Dehydrogenase) [facility] Work Phone: Start: 02-14-2016 End: 02-07-2016 Magnesium *Magnesium [facility] Work Phone: Start: 02-14-2016 End: 02-07-2016 Urate *Uric Acid Blood [facility] Work Phone: Start: 02-07-2016 End: 02-14-2016 Ct abd&pelv 1+ section/regns CT Abdomen and pelvis; without and with contrast [facility] Work Phone: Start: 02-07-2016 End: 02-14-2016 Ct thorax w/o & w/dye CT Chest with and without Contrast [facility] Work Phone: Start: 07-26-2015 End: 07-26-2015 *CBC with Differential *CBC with Differential [facility] Work Phone: Start: 07-26-2015 End: 07-26-2015 *CMP Complete Metabolic Panel *CMP Complete Metabolic Panel [facility] Work Phone: Start: 07-26-2015 End: 07-27-2015 Cancer antigen 125 *CA125 - Cancer Antigen (CA) 125 [facility] Work Phone: Start: 07-26-2015 End: 07-26-2015 Lactate dehydrogenase (LDH) *LDH -LDH (Lactate Dehydrogenase) [facility] Work Phone: Start: 07-26-2015 End: 07-26-2015 Urate *Uric Acid Blood [facility] Work Phone: Start: 02-15-2015 End: 02-14-2016 *CBC with Differential *CBC with Differential [facility] Work Phone: Start: 11-13-2014 End: 02-08-2015 *CBC with Differential *CBC with Differential [facility] Work Phone: Start: 11-13-2014 End: 02-08-2015 *CMP Complete Metabolic Panel *CMP Complete Metabolic Panel [facility] Work Phone: Start: 11-13-2014 End: 02-08-2015 Cancer antigen 125 *CA125 - Cancer Antigen (CA) 125 [facility] Work Phone: Start: 11-13-2014 End: 02-08-2015 Lactate dehydrogenase (LDH) *LDH -LDH (Lactate Dehydrogenase) [facility] Work Phone: Start: 11-13-2014 End: 02-08-2015 Thyroid stimulating hormone (TSH) *TSH [facility] Work Phone: Start: 11-13-2014 End: 02-08-2015 Urate *Uric Acid Blood [facility] Work Phone: Start: 04-04-2013 End: 04-04-2013 *MISC - Miscellaneous Lab Test #1 *MISC - Miscellaneous Lab Test #1 [facility] Work Phone: Start: 04-04-2013 End: 04-04-2013 Histoplasma capsulatum Ab [Presence] in Serum *HISTOPL Histoplasma Antibody [facility] Work Phone: Start: 04-04-2013 End: 04-04-2013 Mycobacterium tuberculosis tuberculin stimulated gamma interferon [Presence] in Blood *QFTBINC Quantiferon TB Gold [facility] Work Phone: Bacteria identified in Blood by Culture Blood Culture [facility] Work Phone: Bacteria identified in Urine by Culture Urine Culture [facility] Work Phone: Blood culture [facility] Work Phone: CA 125 measurement [facility] Work Phone: CA 125 measurement [facility] Cancer Ag 125 [Units/volume] in Serum or Plasma [facility] CBC W Auto Different ial panel - Blood [facility] Work Phone: CBC W Auto Different ial panel - Blood [facility] Comprehensive metabo lic 2000 panel - Serum or Plasma [facility] CT Abdomen and Pelvi s W contrast IV [facility] Work Phone: CT Abdomen and Pelvi s W contrast IV [facility] CT Chest W contrast IV [facility] Work Phone: CT Chest W contrast IV [facility] CT Chest W contrast IV [facility] Patient Education [facility] Work Phone: Patient referral [facility] Work Phone: Positron emission tomography with computed tomography [facility] Immunizations Immunization Date Immunization Notes Care Provider Fa cility 02-16-2022 tetanus toxoid, redu dee diphtheria toxoid, and acellular pertussis vaccine, adsorbed [facility] 02-14-2021 Covid (Pfizer) [facility] 01-24-2021 Covid (Pfizer) [facility] Payers Date Payer Category Payer Self-pay [id number] 2006 Medicare [id number] 2006 Unknown [id number] Unknown [id number] 2.16.8 [id number] Unknown [id number] 2.16.8 [id number] Unknown [id number] 2.16.8 [id number] Unknown [id number] 2.16.8 [id number] Unknown [id number] 2.16.8 [id number] Unknown [id number] 2.16.8 [id number] Unknown [id number] 2.16.8 [id number] Unknown [id number] 2.16.8 [id number] Unknown [id number] 2.16.8 [id number] Unknown [id number] 2.16.8 [id number] Unknown [id number] 2.16.8 [id number] Unknown [id number] 2.16.8 [id number] Unknown [id number] 2.16.8 [id number] Unknown [id number] 2.16.8 [id number] Unknown [id number] 2.16.8 [id number] Social History Date Type Detail Facility Start: 02-16-2022 End: 12-26-2023 Tobacco smoking status NHIS Unknown if ever smoked [facility] Start: 03-22-2020 Non-smoker [facility] Start: 1940 Sex Assigned At Female [facility] Start: 03-12-2024 End: 05-10-2025 Tobacco smoking status NHIS Never smoked tobacco (finding) [facility] Start: 12-28-2024 Sex Female (finding) [facility] Functional Status Date Assessment Result Facility 05-10-2025 Functional status [facility]room Privile[facility] Work Phone: Mental Status Date Assessment Result Facility 05-10-2025 Cognitive function Awake;Alert;Appropriat e [facility] Work Phone: Clinical Notes 10-08-2021 to 04-18-2025 Note Date & Type Note Facility 04-18-2025 Radiology Diagnostic study note [facility] Imaging Services [address] [place] [address] CT Chest, Abd, Pel w/Contrast MR#: [id number] Acct: [id number] Name: LUZ CLANCY Rep #: [id number] : 1940 F 85 From: Gregg Barba MD PCP: MARILEE Partida Status: REG CLI Study:CT Chest, Abd, Pel w/Contrast Date of E xam: 04/17/25 Exam# [id number] Ordering Dr: Scot Bernal MD PROCEDURE: CT [...] 3. Other findings as noted. Reading Location: [id number] CC: MARILEE Interiano; Dr. Carlos Bernal MD ~ Surgical Dental Assistant: Signed [facility] Work Phone: 04-12-2025 Evaluation note Diagnosis Onset Date Resolution History of endometrial cancer chronic April 12, 2025 2 :42pm Lung nodule, multiple chronic Jamal 2024 2:42pm Uterine cancer chronic April 12, 2025 2:42pm Lung mass acute April 24 3:43pm History of endometrial cancer chronic April 24, 2025 3:43pm Uterine cancer chronic April 24, 2025 3:43pm Pulmonary nodule acute April 8:00am Tachycardia acute May 16, 2 025 11:32am Uncontrolled hypertension acute May 16, 2025 11:32am [facility] Work Phone: 1(503) 898-785307-02-2025 Progress [facility] [address] [place] [address] OFFICE VISIT Date of Service: 04/12/25 1455 MR#: [id number] Acct: [id number] Name: LUZ CLANCY Rep #: [id number] : 1940 From: Carlos Bernal MD Age/Sex: 85/F [facility] Status: Signed HPI Subjective Date of Service 04/12/25 Chief Complaint F/u for endometrial cancer. 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 She had surgery on 11/09/2012. She received 3 cycles of Taxol/Carboplatin followed by XRT and then another 3 cyclesof Taxol/Carboplatin, completed therapy on 08/22/2013. She was found tohave lung nodules, one in RUL increased in size to 9mm on 08/17/2017 so was referred for CT guided bx but could not be done. She was monitored with CT and the nodules remained stable. She is on observation, comes in for f/u. [facility] Medical History Tachycardia Diverticulosis Uncontrolled hypertension Cancer [...] in the past year?: Yes 04/12/25 1523 D> Date _ Carlos Bernal MD Cosigner Signature: Date (if applicable) CC: MARILEE Interiano ~ [facility]07-02-2025 Progress note Author Carlos Bernal [facility] Note Date/Time April 12, 2025 3:23p m [facility] [facility] [place] [address] OFFICE VISIT Date of Service: 04/12/25 1455 MR#: [id number] Acct: [id number] Name: LUZ CLANCY Rep #: [id number] : 1940 From: Carlos Bernal MD Age/Sex: 85/F [facility] Status: Signed HPI Subjective Date of [...] is on observation, comes [facility] for f[facility]. [facility] Medical History Tachycardia Diverticulosis Uncontrolled hypertension Cancer [...] MD Cosigner Signature: Date (if applicable) CC: MULTIPLEX OPERATOR-C Lela Interiano ~ [facility] Work Phone: 1(446) 616-791304-02-2025 Evaluation note* Diagnosis Onset Date Resolution Status Admit Date Tachycardia acute January 11 1:25pm History of endometrial cancer acute April 12, 2025 2:42pm Lung nodule, multiple chronic Apr 2:42pm Uterine cancer chronic April 12, 2025 2:42pm [facility] Work Phone: 1(579) 107-395704-02-2025 Evaluation note* Diagnosis Onset Date Resolution Status Admit Date Tachycardia acute January 11 1:25pm History of endometrial cancer acute April 12, 2025 2:42pm Lung nodule, multiple chronic Apr 2:42pm Uterine cancer chronic April 12, 2025 2:42pm Pulmonary nodule acute April 3:45pm [facility] Work Phone: 1(525) 842-653004-02-2025 Evaluation note* Diagnosis Onset Date Resolution Status [...] Uterine cancer chronic April 24, 2025 3:43pm [facility] Work Phone: 1(315) 793-983701-10-2025 Evaluation note* Diagnosis Onset Date Resolution Status Admit Date Strain of muscle at thorax level resolved October 21 6:19am [facility] Work Phone: 1(381) 538-925812-28-2021 NoteHNO ID: [id number] Author: Seble Vann APRN.SCOURING MACHINE TENDER Service: ? Author Type: Nurse Practitioner Type: Progress Notes Filed: 10/08/2021 8:25 AM Note Text: This note was created using NoteWriter. Subjective Luz Clancy is a 81 year [...] history is provided by the patient. No insurance verifier was used. Illness The current episode started [...] Laterality Date - COLONOSCOP W/ OR W/O [facility] SPEC 06/17/2006 Colonoscopy - COLONOSCOP W/ OR W/O [facility] SPEC 07/15/11 - COLONOSCOP W/ OR W/O [facility] SPEC 07/17/16 Colonoscopy (needs MAC next time) [...] wall: No tenderness. Abd (more content not included)...[facility] availableWL[facility] Work Phone: Evaluation note* Diagnosis Onset Date Resolution Status History of endometrial cancer acute Lung nodule, multiple chroni c Uterine cancer chronic [facility] Work Phone: Evaluation note* Diagnosis Onset Date Resolution Status Acute sinusitis acute Cough acute PND (post-nasal drip) acute Increased urinary frequency acute [facility] Work Phone: Reason for referral (narrative)No reason for referral information availableWLutheran Hospital Work Phone: Summary Purpose Family History [...] February 16, 2022 12 :59pm Power of Salvage Worker Yes February 16, 2022 12:59pm Advance Directive Response Recorded Date/ Time Name of Medical Power of Salvage Worker Eva Mccallum February 16, 2022 12:59pm Advance Directives No August 3:25pm Living Will Yes February 16, 2022 12 :59pm Power of Salvage Worker Yes February 16, 2022 12:59pm Advance Directive Response Recorded Date/ Time Advance Directives No November 7:49am Living Will Yes November 024 7:49am Power of Salvage Worker Yes December 10, 2023 7:49am Advance Directive Response Recorded Date/ Time Advance Directives No November 7:49am Advance Directive Response Recorded Date/ Time Living Will No August 23 013 3:25pm Do you have a Healthcare Power of Salvage Worker? No August 23, 2013 3:25pm Advance Directives [...] Uterine cancer April 24, 2025 3:43 pm Chief Complaint Admit Date SVT February 03, 2025 6:4 7am SVT February 07, 2025 7:4 5am 1YR LABS PRIOR April 12, 2025 2:42p m Other abnormal tumor markers April 17, 025 12:36pm 2WKS NO LABS REVIEW CT April 24, 2025 3 :43pm ONC/HEM May 02, 2025 8:00 am Other nonspecific abnormal finding of [place] field May 10, 2025 7:36am 4 M FU May 16, 2025 11: 32am Reason for Visit Admit Date History of endometrial cancer April 12, 2025 2:42pm Lung nodule, multiple April 12, 2025 2:4 2pm Uterine cancer April 12, 2025 2:42p m Lung mass April 24, 2025 3:43 pm History of endometrial cancer April 24, 2025 3:43pm Uterine cancer April 24, 2025 3:43 pm Pulmonary nodule May 02, 2025 8:00 am Tachycardia May 16, 2025 11: 32am Uncontrolled hypertension May 16 11:32am Additional Source Comments INFORMATION SOURCE (unrecogn ized section and content) DATE CREATED AUTHOR 12/31/2021 [facility] DATE CREATED AUTHOR CELESTINA TAYLOR 05/18/2025 [facility] Goals (unrecognized section and content) Goals [...] Primary Care Provider, Referrin g Provider Active MARLY Prakash Attending Provider Active Team Status: Inactive Member Role Status Dates Dr. Paola Corona MD Primary Care Provider, Referrin g Provider Active MARILEE Encinas Attending Provider Active Team Status: Inactive Member Role Status Dates Dr. Paola Corona MD Primary Care Provider Active MARLY Prakash Attending Provider, Referring Provi annette Active Team Status: Inactive Member Role Status Dates Dr. Paola Corona MD Primary Care Provider Active Start: October 21, 2024 End: October 21, 2024 Dr. Paola Corona MD Referring Provider Active Start: October 21, 2024 End: October 21, 2024 MARLY Prakash Attending Provider Active Sta rt: October 21, [...] Active Member Role/Relationship Status Dates Lela Interiano MULTIPLEX OPERATOR, MULTIPLEX OPERATOR-C Primary Care Provider Active Team Status: [...] Team Status: Inactive Member Role/Relationship Status Dates Lelalita Interiano MULTIPLEX OPERATOR, MULTIPLEX OPERATOR-C Primary Care Provider Active Start: February 27, 2025 End: February 27, 2025 Lelalita Interiano MULTIPLEX OPERATOR, MULTIPLEX OPERATOR-C Attending Provider Active S tart: February 27, 2025 End: February 27, 2025 Lelalita Interiano MULTIPLEX OPERATOR, MULTIPLEX OPERATOR-C Referring Provider Active S tart: February 27, 2025 End: February 27, 2025 Team Status: Inactive Member Role/Relationship Status Dates Dr. Carlos Bernal MD Attending Provider Active S tart: April 12, 2025 End: April 12, 2025 Lelalita Interiano MULTIPLEX OPERATOR, MULTIPLEX OPERATOR-C Primary Care Provider Active Start: April 12, 2025 End: April 12, 2025 Lela Interiano MULTIPLEX OPERATOR, MULTIPLEX OPERATOR-C Referring Provider Active S tart: April [...] Inactive Member Role/Relationship Status Dates Lela Interiano MULTIPLEX OPERATOR, MULTIPLEX OPERATOR-C Primary Care Provider Active Start: February 27, 2025 End: February 27, 2025 Lela Interiano MULTIPLEX OPERATOR, MULTIPLEX OPERATOR-C Attending Provider Active S tart: February 27, 2025 End: February 27, 2025 Lela Interiano MULTIPLEX OPERATOR, MULTIPLEX OPERATOR-C Referring Provider Active S tart: February 27, 2025 End: February 27, 2025 Team Status: Inactive Member Role/Relationship Status Dates Dr. Carlos Bernal MD Attending Provider Active S tart: April 12, 2025 End: April 12, 2025 Lela Interiano MULTIPLEX OPERATOR, MULTIPLEX OPERATOR-C Primary Care Provider Active Start: April 12, 2025 End: April 12, 2025 Lela Interiano MULTIPLEX OPERATOR, MULTIPLEX OPERATOR-C Referring Provider Active S tart: April 12, 2025 End: April 12, 2025 Team Status: Active Member Role/Relationship Status Dates Dr. Paola Corona MD Primary Care Provider Active Start: April 12, 2025 Dr. Paola Corona MD Family Provider Active St art: April 12, 2025 Dr. aPola Corona MD Referring Provider Active Start: April 12, 2025 Dr. Carlos Bernal MD Attending Provider Active S tart: April 12, 2025 Team Status: Inactive Member Role/Relationship Status Dates Lela Interiano MULTIPLEX OPERATOR, MULTIPLEX OPERATOR-C Primary Care Provider Active Start: April 17, 2025 End: April 17, 2025 Dr. Carlos Bernal MD Attending Provider Active S tart: April 17, 2025 End: April 17, 2025 Dr. Carlos Bernal MD Referring Provider Active S tart: April 17, 2025 End: April 17, 2025 Team Status: Inactive Member Role/Relationship Status Dates Lela Interiano MULTIPLEX OPERATOR, MULTIPLEX OPERATOR-C Primary Care Provider Active Start: April 24, 2025 End: April 24, 2025 Lela Interiano MULTIPLEX OPERATOR, MULTIPLEX OPERATOR-C Referring Provider Active S tart: April 24, 2025 End: April 24, 2025 Dr. Carlos Bernal MD Attending Provider Active S tart: April 24, 2025 End: April 24, 2025 Team Status: Inactive Member Role/Relationship Status [...] Inactive Member Role/Relationship Status Dates Lela Interiano MULTIPLEX OPERATOR, MULTIPLEX OPERATOR-C Primary Care Provider Active Start: February 27, 2025 End: February 27, 2025 Lela Interiano MULTIPLEX OPERATOR, MULTIPLEX OPERATOR-C Attending Provider Active S tart: February 27, 2025 End: February 27, 2025 Lela Interiano MULTIPLEX OPERATOR, MULTIPLEX OPERATOR-C Referring Provider Active S tart: February 27, 2025 End: February 27, 2025 Team Status: Inactive Member Role/Relationship Status Dates Dr. Carlos Bernal MD Attending Provider Active S tart: April 12, 2025 End: April 12, 2025 Lela Interiano MULTIPLEX OPERATOR, MULTIPLEX OPERATOR-C Primary Care Provider Active Start: April 12, 2025 End: April 12, 2025 Lela Interiano MULTIPLEX OPERATOR, MULTIPLEX OPERATOR-C Referring Provider Active S tart: April 12, 2025 End: April 12, 2025 Team Status: Inactive Member Role/Relationship Status Dates Lela Interiano MULTIPLEX OPERATOR, MULTIPLEX OPERATOR-C Primary Care Provider Active Start: April 17, 2025 End: April 17, 2025 Dr. Carlos Bernal MD Attending Provider Active S tart: April 17, 2025 End: April 17, 2025 Dr. Carlos Bernal MD Referring Provider Active S tart: April 17, 2025 End: April 17, 2025 Team Status: Inactive Member Role/Relationship Status Dates Lela Interiano MULTIPLEX OPERATOR, MULTIPLEX OPERATOR-C Primary Care Provider Active Start: April 24, 2025 End: April 24, 2025 Lela Interiano NP, MULTIPLEX OPERATOR-C Referring Provider Active S tart: April 24, 2025 End: April 24, 2025 Dr. Carlos Bernal MD Attending Provider Active S tart: April 24, 2025 End: April 24, 2025 Team Status: Active Member Role/Relationship Status Dates Dr. Paola Corona MD Primary Care Provider Active Start: May 02, 2025 Dr. Paola Corona MD Family Provider Active St art: May 02, 2025 Dr. Paola Corona MD Referring Provider Active Start: May 02, 2025 Dr. Carlos Bernal MD Attending Provider Active S tart: May 02, 2025 Team Status: Active Member Role/Relationship Status Dates Lela Interiano NP, MULTIPLEX OPERATOR-C Primary Care Provider Active Start: May 10, 2025 Dr. Carlos Bernal MD Attending Provider Active S tart: May 10, 2025 Dr. Carlos Bernal MD Referring Provider Active S tart: May 10, 2025 Dr. Brian Gonzales MD Other Provider Active Sta rt: May 10, 2025 Team Status: Inactive Member Role/Relationship Status Dates Dr. Paola Corona MD Referring Provider Active Start: May 16, 2025 End: May 16, 2025 Laney Ferreira NP, MULTIPLEX OPERATOR-C Attending Provider Active Start: May 16, 2025 End: May 16, 2025 Lela Interiano NP, MULTIPLEX OPERATOR-C Primary Care Provider Active Start: May 16, 2025 End: May 16, 2025 FOR RECORDS PERTAINING TO PATIENTS WHO [...] BE BASED ON THE PRIMARY CLINICAL RECORDS. [employer] [facility]. provides no warranty or guarantee of the accuracy or completeness of information in this document.
[2025-05-18] MEDS: 0.9% Normal Saline (1000mL) 1,000 ML 999 ML IV (18:50)
[2025-05-18 19:07] LABS: Mucous, Urine 0 SEEN /hpf (<or=2+)
[2025-05-18 19:11] LABS: Hematocrit 37.0 % (37-47); Hemoglobin 12.2 g/dL (12.0-15.0); Immature Granulocytes Count 0.030 X10^3/uL (0.0-0.0); Mean Corp Hgb Conc 33.0 g/dL (32-36); Mean Corpuscular Volume 85.1 fL (81-99); Mean Platelet Vol. 11.9 fl (6.2-12.0); NRBC Flagged by Analyzer 0 % (0-5); POSITIVE DIFFERENTIAL YES; Platelet Count 364 K/mm3 (150-450); RBC Distribution Width CV 13.2 % (11.6-14.6); RBC Distribution Width SD 41.1 fl (35.1-43.9); Red Blood Count 4.35 M/mm3 (4.2-5.4); White Blood Count 14.2 K/mm3 (4.4-11.0)
[2025-05-18 19:33] LABS: Color, Urine Straw (Yellow); Glucose, Dipstick Normal (Normal); Ketone-Dipstick 15 mg/dl (Negative); Leukocyte Esterase-Dipstick 100 /ul (Negative); Nitrite-Dipstick Negative (Negative); Occult Blood-Urine 25 /ul (Negative); Protein-Dipstick 30 mg/dl (Negative); Specific Gravity, Urine 1.010 (1.002-1.030); Urine Bilirubin Dipstick Negative (Negative)
[2025-05-18 19:50] LABS: Red Blood Cells-Urine 0-5 SEEN /hpf (0-5)
[2025-05-18 19:51] LABS: Squamous Epithelial Cells - UA 0-5 SEEN /hpf (5-10)
[2025-05-18 19:53] LABS: Lipase 32 U/L (13-75)
[2025-05-18 19:55] LABS: AST(SGOT) 44 U/L (<=31); Alanine Aminotransfer ALT/SGPT 16 U/L (<=34); Albumin, Serum 4.5 g/dL (3.4-4.8); Alkaline Phosphatase 93 U/L (35-104); Anion Gap 20 (5-15); BUN 15 mg/dL (4-19); BUN/Creat Ratio 19.4 RATIO (10-20); Calcium,Total 10.1 mg/dL (7.6-11.0); Carbon Dioxide 18.0 mmol/L (21.0-32.0); Chloride 94 mmol/L (98-108); Estimated Creatinine Clearance 47.10 ml/min (50-250); Globulin 4.1 g/dL (2.2-4.2); Glucose 152 mg/dL (70-99); Potassium 4.0 mmol/L (3.3-5.1)
[2025-05-18] MEDS: 0.9% Normal Saline (1000mL) 1,000 ML 1000 ML IV (20:53)
--- NOTE | 2025-05-18 21:39 | EKG12_ITS ---
Test Reason : DYSRHYTHMIA Blood Pressure : */* mmHG Vent. Rate : 122 BPM Atrial Rate : * BPM P-R Int : * ms QRS Dur : 162 ms QT Int : 444 ms P-R-T Axes : * 19 63 degrees QTcB Int : 632 ms Wide QRS tachycardia Left bundle branch block Abnormal ECG Confirmed by ASHLEY CALLE ([id number]), film or videotape editor PABLO MOSS ([id number]) on 05/22/2025 8:07:05 AM Referred By: Confirmed By: ASHLEY CALLE
--- NOTE | 2025-05-18 21:52 | PCM.HP.STD ---
HPI - General General Date of Admission: 05/18/25 Date of Service: 05/18/25 Chief Complaint: Abdominal pain, bloating, N/V. HPI Narrative The patient is an 85 y/o F w/ PMHx: CKD stage II per GFR trending, HTN, GERD, Hx Uterine CA/endometrial s/p PRADEEP as well as chemotherapy/radiation 2012, Hypothyroidism who presents to the [facility] ED on 05/18/25 with history of onset on day of presentation abdominal distention, increased burping, lack of flatus, episodes of nausea and emesis although she does report a bowel movement of normal texture and size at approximately 6:30 AM and also 1 in the early afternoon which is a familiar bowel pattern for her although she does note that last flatus was the day prior and given ongoing discomfort noted to be waxing and waning occasionally and with a cramping sensation rated 6-7 out of 10 in severity at its worst, currently resolved upon ED evaluation but given ongoing prompted ED evaluation to be cautious. She does note that in March she had a similar episode but no emesis at that time and it did resolve over 48 hours. Prior to this she had never had anything like this before. Workup in the ED included T98.4, heart rate 125, BP 164/106, respiratory rate 20, 100% on room air with most recent repeat vitals heart rate 122, BP 151/99, respiratory rate 14, 98% room air, CBC with 14.2, hemoglobin 12.2, platelet 364 with left shift and lymphopenia, CMP with sodium 132, chloride 94, carbon dioxide 18, AG 20, BUN/creat 15/0.78, GFR 75, glucose 152, lactic acid 1.9, hepatic profile not marked appearing aside AST 42, lipase 32, urinalysis not marked appearing, CT abdomen and pelvis with mildly prominent small bowel loops with air-fluid levels possibly acute enteritis versus ileus with no definitive transition point however unable to exclude early/partial SBO, colonic diverticulosis without diverticulitis, small hyperdense left renal lesion possibly complex cyst, bilateral pulmonary nodules with no significant change in his prior study. In the ED patient administered 2 L normal saline, Reglan 5 mg IV x 1, morphine 2 mg IV x 1, Zofran 4 mg IV x 1. ED discussed case with Dr. Lerner. [facility] Medical History CKD (chronic kidney disease), stage II HTN (hypertension) Diverticulosis Cancer Gastric reflux Pulmonary nodule Home Medications ?Medication ?Instructions ?Recorded ?Last Taken ?Type Calcium Carbonate/Vitamin D 1 tab PO DAILY 08/01/13 08/25/17 History Multivitamins,Therapeutic 1 tab PO DAILY 08/01/13 08/25/17 History lactobacillus combination no.9 4 4,000 mmu cells PO DAILY 03/23/23 Unknown History billion cell capsule (Adult 50 Plus Probiotic) famotidine 20 mg tablet 20 mg PO QDAY 12/01/24 Unknown History (Zantac-360 (famotidine)) metoprolol succinate 50 mg 50 mg PO QDAY #90 tabs 01/11/25 Unknown Rx tablet,extended release 24 hr (Toprol XL) levothyroxine 75 mcg tablet 50 mcg PO QDAY 04/12/25 Unknown History Allergy/AdvReac Type Severity Reaction Status Date / Time doxycycline AdvReac Severe Nausea Verified 05/18/25 17:46 erythromycin base AdvReac Severe Nausea Verified 05/18/25 17:46 (Erythromycin Base) clindamycin AdvReac Intermediate Thrush Verified 05/18/25 17:46 Penicillins AdvReac Intermediate Hives Verified 05/18/25 17:46 Family History Mother Colon cancer Breast cancer Daughter Thyroid disorder Father No problems noted. Surgical History History of tubal ligation History of hysterectomy Social History household members: none Smoking Status: Never smoker alcohol intake: never substance use type: does not use ROS ROS Narrative Admission Review of Systems: CONSTITUTIONAL: No weight loss, fever, chills, + weakness or fatigue. HEENT: Eyes: No visual loss, blurred vision, double vision or yellow sclerae. Ears, Nose, Throat: No hearing loss, sneezing, congestion, runny nose or sore throat. SKIN: No rash or itching, lesions, wounds. CARDIOVASCULAR: No chest pain, chest pressure or chest discomfort, palpitations, edema, orthopnea, syncopal events. RESPIRATORY: No shortness of breath, cough or sputum, wheezing, hemoptysis. GASTROINTESTINAL: + anorexia, nausea, vomiting, increased burping, lack of flatus, abdominal pain and distention. No diarrhea, constipation, melena, BRBPR. GENITOURINARY: No dysuria, frequency, urgency or retention. NEUROLOGICAL: No headache, dizziness, syncope, paralysis, ataxia, numbness or tingling in the extremities, focal weakness, change in bowel or bladder control, seizure. MUSCULOSKELETAL: + muscle, back pain, joint pain or stiffness. HEMATOLOGIC: No anemia, bleeding or bruising. LYMPHATICS: No enlarged nodes. No history of splenectomy. PSYCHIATRIC: No history of depression or anxiety. ENDOCRINOLOGIC: No reports of sweating, cold or heat intolerance. No polyuria or polydipsia. ALLERGIES: + History of hives. Vital Signs Vital Signs Vital Signs: 05/18/25 17:46 05/18/25 18:48 05/18/25 19:20 Temperature 98.4 F 98.1 F Temperature Source Oral Oral Pulse Rate 125 H 122 H 117 H Respiratory Rate 20 H 20 H 19 H Blood Pressure 164/106 H 159/106 H Blood Pressure Mean 125 123 Pulse Ox 100 100 99 Oxygen Delivery Method Room Air Room Air 05/18/25 19:30 05/18/25 19:45 05/18/25 19:55 Temperature 99.1 F Temperature Source Oral Pulse Rate 114 H 118 H 120 H Respiratory Rate 21 H 21 H 20 H Blood Pressure 149/97 H 149/97 H Blood Pressure Mean 114 114 Pulse Ox 99 99 100 Oxygen Delivery Method Room Air 05/18/25 19:55 05/18/25 20:00 05/18/25 20:05 Temperature Temperature Source Pulse Rate 117 H Respiratory Rate 17 Blood Pressure 149/97 H 154/89 H 151/89 H Blood Pressure Mean 115 108 108 Pulse Ox 100 Oxygen Delivery Method 05/18/25 20:10 05/18/25 20:15 05/18/25 20:20 Temperature Temperature Source Pulse Rate 117 H 116 H 118 H Respiratory Rate 18 22 H 19 H Blood Pressure 147/89 H 148/86 H 148/103 H Blood Pressure Mean 107 104 118 Pulse Ox 99 98 100 Oxygen Delivery Method 05/18/25 20:25 05/18/25 20:30 05/18/25 20:35 Temperature Temperature Source Pulse Rate 116 H 117 H Respiratory Rate 24 H 25 H Blood Pressure 152/91 H 149/88 H 153/89 H Blood Pressure Mean 111 107 108 Pulse Ox 100 99 Oxygen Delivery Method 05/18/25 20:40 05/18/25 20:45 05/18/25 20:50 Temperature Temperature Source Pulse Rate 115 H 115 H Respiratory Rate 18 17 Blood Pressure 154/89 H 152/89 H 150/88 H Blood Pressure Mean 109 107 106 Pulse Ox 98 100 Oxygen Delivery Method 05/18/25 21:00 05/18/25 21:00 05/18/25 21:15 Temperature 98.4 F Temperature Source Oral Pulse Rate 119 H 123 H 119 H Respiratory Rate 20 H 22 H 21 H Blood Pressure 151/99 H Blood Pressure Mean 116 Pulse Ox 100 100 100 Oxygen Delivery Method Room Air 05/18/25 21:30 Temperature Temperature Source Pulse Rate 122 H Respiratory Rate 14 Blood Pressure Blood Pressure Mean Pulse Ox 98 Oxygen Delivery Method Weight Weight: 128 lb 4.944 oz Body Mass Index (BMI) 21.3 Physical Exam Narrative Physical Examination: General: Awake, alert, oriented x 3 and cooperative, seated upright in the ED bed, fatigued, notes abdominal discomfort currently improved following ED morphine. Skin: Normal color, normal turgor, no icterus, no cyanosis except occasional stage ecchymoses, abrasion. HEENT: AT/NC, EOMI, PERRLA, moderately dry MM, no carotid bruits or JVD noted. Lungs: CTA bilaterally, moderate effort, mild decrease BL bases, no rales, ronchi or wheezing. Heart: Tachycardic with regular rhythm; no gallop, rub audible. Abdomen: Soft, mild generalized discomfort with palpation, still evident mild to moderate distention, tympany primarily in the right lower quadrant, absent bowel sounds, no obvious HSM. Extremities: No cyanosis, clubbing, or edema. Neurological: Patient awake, alert, oriented as noted, cognitive function intact; pupils equally reactive to light and accommodation, cranial nerves grossly normal, moving all 4 extremities, no focal deficits, strength moderately globally decreased secondary to acute presentation complaints. Psychiatric: Affect appears fatigued, no acute evidence of depressive or anxiety feelings. Results Lab / Micro Data 05/18/25 17:55 05/18/25 22:24 Labs: Laboratory Results - last 24 hr 05/18/25 17:55: WBC 14.2 H, RBC 4.35, Hgb 12.2, Hct 37.0, MCV 85.1, MCH 28.0, MCHC 33.0, RDW Std Deviation 41.1, RDW Coeff of Karthikeyan 13.2, Plt Count 364, MPV 11.9, Immature Gran % (Auto) 0.200, Neut % (Auto) 91.6 H, Lymph % (Auto) 3.3 L, [place] % (Auto) 4.6, Eos % (Auto) 0.0, Baso % (Auto) 0.3, Absolute Neuts (auto) 13.0 H, Absolute Lymphs (auto) 0.47 L, Nucleated RBC % 0, Sodium 132 L, Potassium 4.0, Chloride 94 L, Carbon Dioxide 18.0 L, Anion Gap 20 H, BUN 15, Creatinine 0.78, Estim Creat Clear Calc 47.10 L, Est GFR (MDRD) Non-Af 75, BUN/Creatinine Ratio 19.4, Glucose 152 H, Calcium 10.1, Total Bilirubin 0.54, AST 44 H, ALT 16, Alkaline Phosphatase 93, Total Protein 8.6 H, Albumin 4.5, Globulin 4.1, Albumin/Globulin Ratio 1.1, Lipase 32 05/18/25 18:57: Urine Color Straw, Urine Clarity Sl. Cloudy, Urine pH 7.0, Ur Specific [place] 1.010, Urine Protein 30 H, Urine Glucose (UA) Normal, Urine Ketones 15 H, Urine Occult Blood 25 H, Urine Nitrite Negative, Urine Bilirubin Negative, Urine Urobilinogen Normal, Ur Leukocyte Esterase 100 H, Urine RBC 0-5 SEEN, Urine WBC 0-5 SEEN, Ur Squamous Epith Cells 0-5 SEEN, Urine Bacteria 0 SEEN, Urine Mucus 0 SEEN 05/18/25 19:10: Lactic Acid 1.9 Imaging Radiology Impression Abdomen/Pelvis CT 05/18/25 18:14 IMPRESSION: 1. Mildly prominent small bowel loops with air-fluid levels, likely acute enteritis or an ileus. No definite transition point seen, however early/partial SBO is not excluded. 2. Colonic diverticulosis without signs of diverticulitis. 3. Small hyperdense left renal lesion, may represent a complex cyst. 4. Bilateral pulmonary nodules, with no significant change since the prior study Reading Location: [facility] Assessment & Plan Assessment/Plan (1) Intractable nausea and vomiting: PLAN: Plan The patient is an 85 y/o F w/ PMHx: CKD stage II per GFR trending, HTN, GERD, Hx Uterine CA/endometrial s/p PRADEEP as well as chemotherapy/radiation 2012, Hypothyroidism who presents to the [facility] ED on 05/18/25 with history of onset on day of presentation abdominal distention, increased burping, lack of flatus, episodes of nausea and emesis although she does report a bowel movement of normal texture and size at approximately 6:30 AM and also 1 in the early afternoon which is a familiar bowel pattern for her although she does note that last flatus was the day prior and given ongoing discomfort noted to be waxing and waning occasionally and with a cramping sensation rated 6-7 out of 10 in severity at its worst, currently resolved upon ED evaluation but given ongoing prompted ED evaluation to be cautious. #1. Abdominal pain, nausea, emesis w/ concern pSBO: Will admit to PCU given ongoing persistent tachycardia, maintain on judicious IVFs, given no current emesis and patient declined will hold on NG tube placement at this time, strict I&Os, IV pain/anti-emetics PRN, serial KUB as needed to monitor bowel function, maintain on IV PPI, maintain NPO on bowel rest. General surgery consulted. #2. Hypertension: Continue home regimen including metoprolol if no further episodes of emesis otherwise we will hold and utilize IV Lopressor as needed, PRN hydralazine. #3. Chronic Kidney Disease Stage II per GFR trending: Admission BUN/Cr 15/0.78, GFR 75, baseline renal function primarily 0.7-0.8, repeat BMP in AM. #4. Hypothyroidism: Will continue patient on levothyroxine regimen if no further episodes of emesis otherwise would hold. #5. History uterine/endometrial cancer: Status post total abdominal hysterectomy 2012 in addition to treatment with chemotherapy and radiation at that time, considered in remission per patient report. #6. GERD: Will maintain on IV PPI. #7. DVT prophylaxis: Lovenox. #8. CODE status: Patient HCPOA are her children she notes and living will is currently in place. Discussed CODE status at length including difference between FULL code, DNR-CCA and DNR-CC status. Following discussions about the differences in these status, requested DNR-CCA with intubation. Discussed initially DNR CCA status with and without intubation and examples given with patient eventually decision to maintain with intubation. Advanced Care Planning Face to Face Time: 16 minutes. Charges/Coding Visit Charges Inpatient E&M: 55002 Init Hosp L3 Procedures Hospitalists Procedures: 67449 Advncd Care Plan 30 Min
--- OUTSIDE RECORDS SUMMARY | 2025-05-18 22:17 | XMS RPT_ITS | CCD ---
Author Organization [facility] [employer] Care Team Providers Care Street Department Dispatcher Name Role Phone Carlos Bernal MD Unavailable [...] Mike SANTIAGO, Dr. Lin Other Provider Jaydon BLEACH SUPERVISOR-C, Lela Primary Care Provider Jaydon BLEACH SUPERVISOR-C, Lela Attending Provider Jaydon BLEACH SUPERVISOR-C, Lela Referring Provider Dolores SANTIAGO, Dr. Gonzalez Attending Provider Chloe SANTIAGO, Dr. Paola Lebron Primary Care Provider Chloe SANTIAGO, Dr. Paola Lebron Referring Provider Dolores SANTIAGO, Dr. Gonzalez Referring Provider Chloe SANTIAGO, Dr. Paola Lebron Primary Care Provider Mike SANTIAGO, Dr. Lin Attending Provider Chloe SANTIAGO, Dr. Paola Lebron Referring Provider Christian SANTIAGO, Dr. Torres Other Provider Unavailabl e Jhon BLEACH SUPERVISOR-C, Laney Attending Provider Jolliff, Paola S Referring Unavailable Jolliff, Paola S Attending Unavailable Jolliff, Paola S Primary Care Unavailable Jolliff, Paola S Primary Care Unavailable Jolliff, Paola S Referring Unavailable Jolliff, Paola S Attending Unavailable Jolliff, Paola S Primary Care Unavailable Jolliff, Paola S Referring Unavailable Jolliff, Paola S Attending Unavailable Mike, Riley Referring Unavailable Mike, [place] Attending Unavailable Jolliff, Paola S Primary Care Unavailable Carlos Bernal Attending Unavailable Jaydon BLEACH SUPERVISOR, Lela Primary Care Unavailable Jaydon BLEACH SUPERVISOR, Lela Referring Unavailable Mike, Riley Attending Unavailable Jolliff, Paola S Primary Care Unavailable Mike, [place] Referring Unavailable Mike, Riley Attending Unavailable Mike, [place] Consulting Unavailable Jolliff, Paola S Primary Care Unavailable Laney Ferreira NP Attending Unavailable Jaydon BLEACH SUPERVISOR, Lela Primary Care Unavailable Jolliff, Paola S Referring Unavailable [place] Attending Unavailable Jolliff, Paola S Referring Unavailable Jolliff, Paola S Primary Care Unavailable Mike, Riley Attending Unavailable Jolliff, Paola S Primary Care Unavailable Jolliff, Paola S Referring Unavailable Jaydon BLEACH SUPERVISOR, Lela Referring Unavailable Jaydon BLEACH SUPERVISOR, Lela Primary Care Unavailable Carlos Bernal Attending Unavailable Jaydon BLEACH SUPERVISOR, Lela Referring Unavailable Jaydon BLEACH SUPERVISOR, Lela Attending Unavailable Jaydon BLEACH SUPERVISOR, Lela Primary Care Unavailable Carlos Bernal Attending Unavailable Jaydon BLEACH SUPERVISOR, Lela Primary Care Unavailable Brian Gonzales Unavailable Carlos Bernal Referring Unavailable Carlos Bernal Attending Unavailable Paola Corona S Primary Care Unavailable Paola Corona S Referring Unavailable Jaydon BLEACH SUPERVISOR, Lela Primary Care Unavailable Carlos Bernal Referring Unavailable Carlos Bernal Attending Unavailable Allergies Allergy Classification Reported Allergen(s) Allergy Type Date of Onset Reaction(s) Facility (15 sources) doxycycline; Translations: [doxycycline] drug allergy 2 Nausea [facility] Work Phone: (1 source) erythromycin drug allergy [facility] Work Phone: (13 sources) Erythromycin Drug Allergy 2 [facility] (14 sources) Penicillins; Translations: [Penicillins] Propensity to adverse reactions 2 [facility] (4 sources) Clindamycin Drug Allergy 5 [facility] (1 source) Clindamycin Drug Allergy 5 [facility] Repository (1 source) Erythromycin Drug Allergy 5 [facility] Repository Medications Current Medications Medication Drug Class(es) [...] mouth three times daily CALCIUM CARBONATE-VITAMIN D [id number] Selina Schmitz LPN Calcium Carbonate/Vitamin D tablet [...] as directed as needed CALCIUM CARBONATE ANTACID [id number] Selina Ainsley SURVEYOR HYDROGRAPHIC cephalexin 500 mg oral capsule (6 sources) [...] One tablet by mouth daily MULTIPLE VITAMIN [id number] Selina Lealedward RAMIREZ Nystatin 100,000 unit/mL suspension [...] hours as needed for nausea PROMETHAZINE HCL [id number] Selina Ainsley RAMIREZ psyllium 3400 mg powder [...] 1/2 tsp with water once daily PSYLLIUM [id number] Selina Ainsley RAMIREZ vitamin b6 100 mg oral table t (15 sources) Start: 08-02-2013 End: 02-18-2017 Pyridoxine Hcl (Vitamin B-6) 100 MG tablet Discontinued 50 mg PO TWICE A DAY August 02, 2013 12:00am February 18, 2017 1:35pm End: 11-21-2014 take 1 tablet by mouth twice daily VITAMIN B-6 50 MG TABS One tablet by mouth twice daily PYRIDOXINE HCL [id number] Selina Ainsley RAMIREZ Problems Active Problems Problem [...] Facility Cardiology Visit Reporton Cardiology Visit Report [facility] [address] [place] [address] OFFICE VISIT Date of Service: 05/16/25 MR#: [id number] Acct: [id number] Name: LUZ CLANCY Rep #: [id number] : 1940 Provider: MARILEE sierra Age/Sex: 85/F Location: [facility] Status: Signed HPI HPI History of [...] (%) 98 Intake Visit Reasons: 4 M [employer] Required: No Is patient in pain?: No [...] for fatigue (more content not included)... Normal [facility] Absolute lymphocyte countOrd ered By: Brian Gonzales on 05-10-2025 Lymphocytes Auto (Unsp spec) [#/Vol] 0.79 10*3/uL Low 0.83-4.51 [facility] Absolute neutrophil countOrd ered By: Brian Gonzales on 05-10-2025 Neutrophils (Bld) [#/Vol] 4.5 10*3/uL 2.0-7.7 [facility] Activated partial thrombopla stin time (aPTT) in platelet poor plasma by coagulation aOrdered By: Brian Gonzales on 05-10-2025 aPTT Coag (PPP) [Time] 25.6 s 24.1-36.2 [facility] Automated lymphocyte count a s percentage of total leukocytesOrdered By: Brian Gonzales on 05-10-2025 Lymphocytes/100 WBC Auto (Unsp spec) 12.9 % Low 19-41 [facility] Basophil percentageOrdered B y: Brian Gonzales on 05-10-2025 Basophils/100 WBC (Bld) 1.0 % 0-1 [facility] Biopsy/Inj or Needle Placeme nton 05-10-2025 Biopsy/Inj or Needle Placement [facility] Imaging Services [address] [place], [place] [address] Biopsy/Inj or Needle Placement MR#: [id number] Acct: [id number] Name: LUZ CLANCY Rep #: [id number] : 1940 F 85 From: Brian Zambrano PCP: MARILEE Partida Status: REG CLI Study: Biopsy/Inj or Needle Placement Date of Exam: 0 05/10/25 Exam# [id number] Ordering Dr: Carlos Bernal MD EXAM: CT-guided [...] pulmonary mass. Pathology results pending. Reading Location: [place] [address] CC: MARILEE Interiano; Dr. Carlos Bernal MD Powderer: Signed Normal [facility] CBC W/Diff, Automatedon 07-3 0-2024 Absolute Lymph 0.79 X10 3/uL Low 0.83-4.51 [facility] Comment on above: Performed By: #### L 100.0100, L300.3900, L300.4310 ####[facility] [address] [place], [address] Absolute Neut 4.5 X10 3/uL Normal 2.0-7.7 [facility] Comment on above: Performed By: #### L 100.0100, L300.3900, L300.4310 ####[facility] [address] [place], [address] Basophils/100 WBC (Bld) 1.0 % Normal 0-1 [facility] Comment on above: Performed By: #### L 100.0100, L300.3900, L300.4310 ####[facility] [address] [place], [address] Eosinophils/100 WBC (Bld) 1.5 % Normal 0-5 [facility] Comment on above: Performed By: #### L 100.0100, L300.3900, L300.4310 ####[facility] [address] [place], [address] Erythrocyte distribution width (RBC) [Ratio] 13.2 % Normal 11.6-14.6 [facility] Comment on above: Performed By: #### L 100.0100, L300.3900, L300.4310 ####[facility] [address] [place], [address] Hematocrit (Bld) [Volume fraction] 34.7 % Low 37-47 [facility] Comment on above: Performed By: #### L 100.0100, L300.3900, L300.4310 ####[facility] [address] [place], [address] Hemoglobin (Bld) [Mass/Vol] 11.0 g/dL Low 12.0-15.0 [facility] Comment on above: Performed By: #### L 100.0100, L300.3900, L300.4310 ####[facility] [address] [place], [address] IG% 0.500 Normal 0.0-0.9 [facility] Comment on above: Result Comment: IG% - Immature Granulocytes (promyelocytes, myelocytes and metamyelocytes) > 1% indicates that a LEFT SHIFT is Present. Performed By: #### L 100.0100, L300.3900, L300.4310 ####[facility] [address] [place], [address] Lymphocytes/100 WBC (Bld) 12.9 % Low 19-41 [facility] Comment on above: Performed By: #### L 100.0100, L300.3900, L300.4310 ####[facility] [address] [place], [address] MCH (RBC) [Entitic mass] 27.8 pg Normal 27.0-32.0 [facility] Comment on above: Performed By: #### L 100.0100, L300.3900, L300.4310 ####[facility] [address] [place], [address] MCHC (RBC) [Mass/Vol] 31.7 g/dL Low 32-36 [facility] Comment on above: Performed By: #### L 100.0100, L300.3900, L300.4310 ####[facility] [address] [place], [address] MCV (RBC) [Entitic vol] 87.8 fL Normal 81-99 [facility] Comment on above: Performed By: #### L 100.0100, L300.3900, L300.4310 ####[facility] [address] [place], [address] Monocytes/100 WBC (Bld) 11.6 % High 0-10 [facility] Comment on above: Performed By: #### L 100.0100, L300.3900, L300.4310 ####[facility] [address] [place], [address] Neutrophils/100 WBC (Bld) 72.5 % High 47-70 [facility] Comment on above: Performed By: #### L 100.0100, L300.3900, L300.4310 ####[facility] [address] [place], [address] Nucleated RBC (Bld) [#/Vol] 0 10*3/uL Normal 0-5 [facility] Comment on above: Performed By: #### L 100.0100, L300.3900, L300.4310 ####[facility] [address] [place], [address] Platelet mean volume (Bld) [Entitic vol] 10.7 fL Normal 6.2-12.0 [facility] Comment on above: Performed By: #### L 100.0100, L300.3900, L300.4310 ####[facility] [address] [place], [address] Platelets (Bld) [#/Vol] 347 10*3/uL Normal 150-450 [facility] Comment on above: Performed By: #### L 100.0100, L300.3900, L300.4310 ####[facility] [address] [place], [address] RBC (Bld) [#/Vol] 3.95 10*6/uL Low 4.2-5.4 [facility] Comment on above: Performed By: #### L 100.0100, L300.3900, L300.4310 ####[facility] [address] [place], [address] RDW SD 42.8 fl Normal 35.1-43.9 [facility] Comment on above: Performed By: #### L 100.0100, L300.3900, L300.4310 ####[facility] [address] [place], [address] WBC (Bld) [#/Vol] 6.1 10*3/uL Normal 4.4-11.0 [facility] Comment on above: Performed By: #### L 100.0100, L300.3900, L300.4310 ####[facility] [address] [place], [address] Chest Insp/Exp 2 Viewon 04-13 Chest Insp/Exp 2 View [facility] Imaging Services [address] [place] [address] Chest Insp/Exp 2 View MR#: [id number] Acct: [id number] Name: LUZ CLANCY Rep #: [id number] : 1940 F 85 From: Brian Zambrano PCP: MARILEE Partida Status: REG CLI Study: Chest Insp/Exp 2 View Date of Exam: 05/10/25 Exam# [id number] Ordering Dr: Brian Gonzales MD EXAM: Two-view [...] stable, without evidence of cardiomegaly. Reading Location: [place] [address] CC: BLEACH SUPERVISOR-C Lela Interiano; Dr. Brian Gonzales MD Powderer: Signed Normal [facility] Chest Insp/Exp 2 View [facility] Imaging Services [address] [place], [place] [address] Chest Insp/Exp 2 View MR#: [id number] Acct: [id number] Name: LUZ CLANCY Rep #: [id number] : 1940 F 85 From: Brian Zambrano PCP: MARILEE Partida Status: REG CLI Study: Chest Insp/Exp 2 View Date of Exam: 05/10/25 Exam# [id number] Ordering Dr: Brian Gonzales MD EXAM: AP [...] unremarkable; no evidence of cardiomegaly. Reading Location: [place] [address] CC: SOURAV-Lilian Interiano; Dr. Brian Gonzales MD Powderer: Signed Normal [facility] Eosinophil percentageOrdered By: Brian Gonzales on 05-10-2025 Eosinophils/100 WBC (Bld) 1.5 % 0-5 [facility] Erythrocyte distribution wid th ratioOrdered By: Brian Gonzales on 05-10-2025 Erythrocyte distribution width (RBC) [Ratio] 13.2 % 11.6-14.6 [facility] Erythrocyte distribution wid th standard deviationOrdered By: Brian Gonzales on 05-10-2025 Erythrocyte distribution width (RBC) [Ratio] 42.8 fl 35.1-43.9 [facility] Hematocrit Auto (Bld) [Volum e fraction]Ordered By: Brian Gonzales on 05-10-2025 Hematocrit (Bld) [Volume fraction] 34.7 % Low 37-47 [facility] Hemoglobin measurementOrdere d By: Brian Gonzales on 05-10-2025 Hemoglobin (Bld) [Mass/Vol] 11.0 g/dL Low 12.0-15.0 [facility] Immature granulocytes/100 WB C Auto (Bld)Ordered By: Brian Gonzales on 05-10-2025 Immature granulocytes/100 WBC (Bld) 0.500 % 0.0-0.9 [facility] Comment on above: IG% - Immature Granu locytes (promyelocytes, myelocytes and metamyelocytes) > 1% indicates that a LEFT SHIFT is Present. Immunohistochemical Stainson 05-10-2025 Immunohistochemical Stains Patient Age/Sex Location Account Attending Physician LUZ CLANCY 85/F CT [id number] Dr. Carlos Bernal MD Specimen: [id number] Received: 05/10/25 Status: RONIT Antonieta Num: [id number] Spec Type: LUNG BX Subm Dr: Dr. [...] developed and their performance characteristics determined by [facility] Laboratory. They may not have been cleared [...] tissue cores. Entirely submitted in 2 cassettes. MS 05/10/2025 [facility]:[id number] [id number] Patient Age/Sex Location Account Attending Physician LUZ CLANCY 85/F CT [id number] Dr. Carlos Bernal MD Signed (signature on file) Dr. Erum Bonilla MD 05/15/25 1643 Normal [facility] Comment on above: Performed By: #### P [facility] ####[facility] [address] [place], [address] International normalized rat io (INR) calculationOrdered By: Brian Gonzales on 05-10-2025 INR Coag (Bld) [Relative time] 1.0 {INR} [facility] MCV (mean corpuscular volume ) determinationOrdered By: Brian Gonzales on 05-10-2025 MCV (RBC) [Entitic vol] 87.8 fL 81-99 [facility] Mean corpuscular hemoglobin (MCH) determinationOrdered By: Brian Gonzales on 05-10-2025 MCH (RBC) [Entitic mass] 27.8 pg 27.0-32.0 [facility] Mean corpuscular hemoglobin concentration (MCHC) determinationOrdered By: Brian Gonzales on 05-10-2025 MCHC (RBC) [Mass/Vol] 31.7 g/dL Low 32-36 [facility] Mean platelet volume determi nationOrdered By: Brian Gonzales on 05-10-2025 Platelet mean volume (Bld) [Entitic vol] 10.7 fL 6.2-12.0 [facility] Monocyte percentageOrdered B y: Brian Gonzales on 05-10-2025 Monocytes/100 WBC (Bld) 11.6 % High 0-10 [facility] Neutrophil percentageOrdered By: Brian Gonzales on 05-10-2025 Neutrophils/100 WBC (Bld) 72.5 % High 47-70 [facility] Nucleated red blood cell per centageOrdered By: Brian Gonzales on 05-10-2025 Nucleated RBC/100 WBC (Bld) [Ratio] 0 % 0-5 [facility] Partial Thromboplast Timeon 05-10-2025 aPTT Coag (Bld) [Time] 25.6 s Normal 24.1-36.2 [facility] Comment on above: Performed By: #### L 100.0100, L300.3900, L300.4310 ####[facility] [address] [place], [place], [id number] Platelet countOrdered By: Brock Gonzales on 05-10-2025 Platelets (Bld) [#/Vol] 347 10*3/uL 150-450 [facility] Prothrombin Time w/INRon INR Coag (PPP) [Relative time] 1.0 {INR} Normal [facility] Comment on above: Performed By: #### L 100.0100, L300.3900, L300.4310 ####[facility] [address] [place], [address] PT Coag (PPP) [Time] 13.0 s Normal 11.7-14.9 [facility] Comment on above: Performed By: #### L 100.0100, L300.3900, L300.4310 ####[facility] [address] [place], [place], [address] Prothrombin timeOrdered By: Brian Gonzales on 05-10-2025 PT Coag (PPP) [Time] 13.0 s 11.7-14.9 [facility] RBC Auto (Bld) [#/Vol]Ordere d By: Brian Gonzales on 05-10-2025 RBC (Bld) [#/Vol] 3.95 10*6/uL Low 4.2-5.4 [facility] White blood cell (WBC) count Ordered By: Brian Gonzales on 05-10-2025 WBC (Bld) [#/Vol] 6.1 10*3/uL 4.4-11.0 [facility] PET/CT Tumor Base -Thigh Ini ton 05-02-2025 PET/CT Tumor Base -Thigh Init [facility] Imaging Services [address] [address] PET/CT Tumor Base -Thigh Init MR#: [id number] Acct: [id number] Name: LUZ CLANCY Rep #: [id number] : 1940 F 85 From: Maria A Clay nd, MD PCP: Dr. Paola Corona MD Status: [facility] RCR Study: PET/CT Tumor Base -Thigh Init Date of Exam: Exam# [id number] Ordering Dr: Carlos Bernal MD EXAM: PET/CT [...] PET will be reported separately. Reading Location: [id number] CC: Dr. Paola Corona MD; Dr. Carlos Bernal MD Powderer: Signed Normal [facility] Oncology Visit Reporton 04-11 Oncology Visit Report [facility] [address] [place] [address] OFFICE VISIT Date of Service: 04/24/25 1552 MR#: [id number] Acct: [id number] Name: LUZ CLANCY Rep #: [id number] : 1940 From: Carlos Bernal MD Age/Sex: 85/F Location: [facility] Status: Signed HPI Subjective Date of [...] up. Denies fever, weight loss, night sweats. [facility] Medical History Tachycardia Diverticulosis Uncontrolled hypertension Cancer [...] MD Cosign Signature: Date (if applicable) CC: BLEACH SUPERVISOR-C Lela Interiano Normal [facility] CT Chest, Abd, Pel w/Contras ton 04-17-2025 CT Chest, Abd, Pel w/Contrast [facility] Imaging Services [address] [place] [address] [address] [address] Chest, Abd, Pel w/Contrast MR#: [id number] Acct: [id number] Name: LUZ CLANCY Rep #: [id number] : 1940 F 85 From: Erik Barba MD PCP: MARILEE Partida Status: REG CLI Study: CT Chest, Abd, Pel w/Contrast Date of Exam: Exam# [id number] Ordering Dr: Carlos Bernal MD PROCEDURE: CT [...] 3. Other findings as noted. Reading Location: [id number] CC: MARILEE Interiano; Dr. Carlos Bernal MD Powderer: Signed Normal [facility] Cancer Antigen 125on 025 CA 125 121.0 U/mL High 0.0-38.1 [facility] Comment on above: Result Comment: [facility] Electrochemiluminescence Immunoassay (ECLIA) Values obtained with different assay methods or kits cannot be used interchangeably. Results cannot be interpreted as absolute evidence of the presence or absence of malignant disease. Performed at: [facility] [address] [place], [place] [id number] [employer] Agent: Guero Smyth PhD, Phone: [phone] Performed By: #### L 3100.5000 #### [facility] Laboratory [address] [place] [address], [id number] Cancer antigen 125 (CA-125) measurementOrdered By: Carlos Bernal on 04-12-2025 Cancer antigen 125 (CA-125) measurement 121.0 U/mL High 0.0-38.1 [facility] Comment on above: [facility] El ectrochemiluminescence Immunoassay(ECLIA)Values obtained with different assay methods or kits cannotbe used interchangeably. Results cannot be interpreted asabsolute evidence of the presence or absence of malignantdisease.Performed at: [facility] [place], [place] [id number] Director: Guero Smyth PhD, Phone: [phone] Oncology Visit Reporton Oncology Visit Report [facility] [place] [facility] [address] [place] [address] OFFICE VISIT Date of Service: 04/12/25 1455 MR#: [id number] Acct: [id number] Name: LUZ CLANCY Rep #: [id number] : 1940 From: Carlos Bernal MD Age/Sex: 85/F Location: [facility] Status: Signed HPI Subjective Date of [...] is on observation, comes in for f/u. [facility] Medical History Tachycardia Diverticulosis Uncontrolled hypertension Cancer [...] of uterus, (more content not included)... Normal [facility] Cancer Antigen 125on 025 CA 125 83.5 U/mL High 0.0-38.1 [facility] Comment on above: Result Comment: [facility] Electrochemiluminescence Immunoassay (ECLIA) Values obtained with different assay methods or kits cannot be used interchangeably. Results cannot be interpreted as absolute evidence of the presence or absence of malignant disease. Performed at: [facility] [address] [id number] [employer] Agent: Guero Smyth PhD, Phone: [phone] Performed By: #### L 100.0100, L3100.5000, L504.2610, L500.4050 ####[facility] [address] [place], [address] Absolute lymphocyte countOrd ered By: [facility] on 03-22-2025 Lymphocytes Auto (Unsp spec) [#/Vol] 0.82 10*3/uL Low 0.83-4.51 [facility] Absolute neutrophil countOrd ered By: [facility] on 03-22-2025 Neutrophils (Bld) [#/Vol] 5.1 10*3/uL 2.0-7.7 [facility] Anion gap in Serum or Plasma Ordered By: [facility] on 03-22-2025 Anion gap [Moles/Vol] 12 mmol/L 5-15 [facility] Automated lymphocyte count a s percentage of total leukocytesOrdered By: [facility] Lymphocytes/100 WBC Auto (Unsp spec) 12.6 % Low 19-41 [facility] BUN/creatinine ratioOrdered By: [facility] on 03-22-2025 Urea nitrogen/Creatinine [Mass ratio] 19.3 mg/mg 10-20 [facility] Basophil percentageOrdered B y: [facility] on 03-22-2025 Basophils/100 WBC (Bld) 0.9 % 0-1 [facility] Bilirubin, totalOrdered By: [facility] on 03-22-2025 Bilirubin [Mass/Vol] 0.24 mg/dL 0.00-1.30 [facility] CBC W/Diff, Automatedon 03-12 Absolute Lymph 0.82 X10 3/uL Low 0.83-4.51 [facility] Comment on above: Performed By: #### L 100.0100, L3100.5000, L504.2610, L500.4050 ####[facility] [address] [place], [address] Absolute Neut 5.1 X10 3/uL Normal 2.0-7.7 [facility] Comment on above: Performed By: #### L 100.0100, L3100.5000, L504.2610, L500.4050 ####[facility] [address] [place], [address] Basophils/100 WBC (Bld) 0.9 % Normal 0-1 [facility] Comment on above: Performed By: #### L 100.0100, L3100.5000, L504.2610, L500.4050 ####[facility] [address] [place], [address] Eosinophils/100 WBC (Bld) 1.4 % Normal 0-5 [facility] Comment on above: Performed By: #### L 100.0100, L3100.5000, L504.2610, L500.4050 ####[facility] [address] [place], [address] Erythrocyte distribution width (RBC) [Ratio] 12.3 % Normal 11.6-14.6 [facility] Comment on above: Performed By: #### L 100.0100, L3100.5000, L504.2610, L500.4050 ####[facility] [address] [place], [address] Hematocrit (Bld) [Volume fraction] 32.9 % Low 37-47 [facility] Comment on above: Performed By: #### L 100.0100, L3100.5000, L504.2610, L500.4050 ####[facility] [address] [place], [address] Hemoglobin (Bld) [Mass/Vol] 10.4 g/dL Low 12.0-15.0 [facility] Comment on above: Performed By: #### L 100.0100, L3100.5000, L504.2610, L500.4050 ####[facility] [address] [place], [address] IG% 0.300 Normal 0.0-0.9 [facility] Comment on above: Result Comment: IG% - Immature Granulocytes (promyelocytes, myelocytes and metamyelocytes) > 1% indicates that a LEFT SHIFT is Present. Performed By: #### L 100.0100, L3100.5000, L504.2610, L500.4050 ####[facility] [address] [place], [address] Lymphocytes/100 WBC (Bld) 12.6 % Low 19-41 [facility] Comment on above: Performed By: #### L 100.0100, L3100.5000, L504.2610, L500.4050 ####[facility] [address] [place], [address] MCH (RBC) [Entitic mass] 28.1 pg Normal 27.0-32.0 [facility] Comment on above: Performed By: #### L 100.0100, L3100.5000, L504.2610, L500.4050 ####[facility] [address] [place], [address] MCHC (RBC) [Mass/Vol] 31.6 g/dL Low 32-36 [facility] Comment on above: Performed By: #### L 100.0100, L3100.5000, L504.2610, L500.4050 ####[facility] [address] [place], [address] MCV (RBC) [Entitic vol] 88.9 fL Normal 81-99 [facility] Comment on above: Performed By: #### L 100.0100, L3100.5000, L504.2610, L500.4050 ####[facility] [address] [place], [address] Monocytes/100 WBC (Bld) 7.4 % Normal 0-10 [facility] Comment on above: Performed By: #### L 100.0100, L3100.5000, L504.2610, L500.4050 ####[facility] [address] [place], [address] Neutrophils/100 WBC (Bld) 77.4 % High 47-70 [facility] Comment on above: Performed By: #### L 100.0100, L3100.5000, L504.2610, L500.4050 ####[facility] [address] [place], [address] Nucleated RBC (Bld) [#/Vol] 0 10*3/uL Normal 0-5 [facility] Comment on above: Performed By: #### L 100.0100, L3100.5000, L504.2610, L500.4050 ####[facility] [address] [place], [address] Platelet mean volume (Bld) [Entitic vol] 10.6 fL Normal 6.2-12.0 [facility] Comment on above: Performed By: #### L 100.0100, L3100.5000, L504.2610, L500.4050 ####[facility] [address] [place], [address] Platelets (Bld) [#/Vol] 314 10*3/uL Normal 150-450 [facility] Comment on above: Performed By: #### L 100.0100, L3100.5000, L504.2610, L500.4050 ####[facility] [address] [place], [address] RBC (Bld) [#/Vol] 3.70 10*6/uL Low 4.2-5.4 [facility] Comment on above: Performed By: #### L 100.0100, L3100.5000, L504.2610, L500.4050 ####[facility] [address] [place], [address] RDW SD 39.8 fl Normal 35.1-43.9 [facility] Comment on above: Performed By: #### L 100.0100, L3100.5000, L504.2610, L500.4050 ####[facility] [address] [place], [address] WBC (Bld) [#/Vol] 6.5 10*3/uL Normal 4.4-11.0 [facility] Comment on above: Performed By: #### L 100.0100, L3100.5000, L504.2610, L500.4050 ####[facility] [address] [place], [address] Carbon dioxide, total [Moles /volume] in Central venous bloodOrdered By: Carlos Bernal on 03-22-2025 CO2 [Moles/Vol] 21.8 mmol/L 21.0-32.0 [facility] Chloride assayOrdered By: Emily Bernal on 03-22-2025 Chloride [Moles/Vol] 102 mmol/L 98-108 [facility] Comprehensive Metabolic Prof ilon 03-22-2025 Albumin [Mass/Vol] 4.1 g/dL Normal 3.4-4.8 [facility] Comment on above: Performed By: #### L 100.0100, L3100.5000, L504.2610, L500.4050 ####[facility] [address] [place], [address] Albumin/Globulin [Mass ratio] 1.3 {ratio} Normal 0.9-2.4 [facility] Comment on above: Performed By: #### L 100.0100, L3100.5000, L504.2610, L500.4050 ####[facility] [address] [place], [address] ALK PHOS 84 U/L Normal 35-104 [facility] Comment on above: Performed By: #### L 100.0100, L3100.5000, L504.2610, L500.4050 ####[facility] [address] [place], [address] ALT [Catalytic activity/Vol] 18 U/L Normal <=34 [facility] Comment on above: Performed By: #### L 100.0100, L3100.5000, L504.2610, L500.4050 ####[facility] [address] [place], [address] AST [Catalytic activity/Vol] 32 U/L Normal <=31 [facility] Comment on above: Performed By: #### L 100.0100, L3100.5000, L504.2610, L500.4050 ####[facility] [address] [place], [address] Bilirubin [Mass/Vol] 0.24 mg/dL Normal 0.00-1.30 [facility] Comment on above: Performed By: #### L 100.0100, L3100.5000, L504.2610, L500.4050 ####[facility] [address] [place], [address] BUN/CRE 19.3 RATIO Normal 10-20 [facility] Comment on above: Performed By: #### L 100.0100, L3100.5000, L504.2610, L500.4050 ####[facility] [address] [place], [address] Calcium [Mass/Vol] 9.5 mg/dL Normal 7.6-11.0 [facility] Comment on above: Performed By: #### L 100.0100, L3100.5000, L504.2610, L500.4050 ####[facility] [address] [place], [address] Chloride [Moles/Vol] 102 mmol/L Normal 98-108 [facility] Comment on above: Performed By: #### L 100.0100, L3100.5000, L504.2610, L500.4050 ####[facility] [address] [place], [address] CO2 [Moles/Vol] 21.8 mmol/L Normal 21.0-32.0 [facility] Comment on above: Performed By: #### L 100.0100, L3100.5000, L504.2610, L500.4050 ####[facility] [address] [place], [address] Creatinine [Mass/Vol] 0.77 mg/dL Normal 0.70-1.20 [facility] Comment on above: Performed By: #### L 100.0100, L3100.5000, L504.2610, L500.4050 ####[facility] [address] [place], [address] ECRCL 47.95 ml/min Low 50-250 [facility] Comment on above: Performed By: #### L 100.0100, L3100.5000, L504.2610, L500.4050 ####[facility] [address] [place], [address] GAP 12 Normal 5-15 [facility] Comment on above: Performed By: #### L 100.0100, L3100.5000, L504.2610, L500.4050 ####[facility] [address] [place], [address] GFR/1.73 sq M.predicted among non-blacks MDRD (S/P/Bld) [Vol rate/Area] 77 mL/min/{1.73_m2} Normal >60 [facility] Comment on above: Result Comment: mL/m in/1.73m2 CKD-EPI Creatinine Equation (2020) Performed By: #### L 100.0100, L3100.5000, L504.2610, L500.4050 ####[facility] [address] [place], [address] Globulin (S) [Mass/Vol] 3.2 g/dL Normal 2.2-4.2 [facility] Comment on above: Performed By: #### L 100.0100, L3100.5000, L504.2610, L500.4050 ####[facility] [address] [place], [address] Glucose [Mass/Vol] 125 mg/dL High 70-99 [facility] Comment on above: Performed By: #### L 100.0100, L3100.5000, L504.2610, L500.4050 ####[facility] [address] [place], [address] Potassium [Moles/Vol] 3.7 mmol/L Normal 3.3-5.1 [facility] Comment on above: Performed By: #### L 100.0100, L3100.5000, L504.2610, L500.4050 ####[facility] [address] [place], [address] Sodium [Moles/Vol] 136 mmol/L Normal 133-145 [facility] Comment on above: Performed By: #### L 100.0100, L3100.5000, L504.2610, L500.4050 ####[facility] [address] [place], [address] T PROT 7.3 g/dL Normal 5.9-8.4 [facility] Comment on above: Performed By: #### L 100.0100, L3100.5000, L504.2610, L500.4050 ####[facility] [address] [place], [address] Urea nitrogen [Mass/Vol] 15 mg/dL Normal 4-19 [facility] Comment on above: Performed By: #### L 100.0100, L3100.5000, L504.2610, L500.4050 ####[facility] [address] [place], [address] Eosinophil percentageOrdered By: Carlos Bernal on 03-22-2025 Eosinophils/100 WBC (Bld) 1.4 % 0-5 [facility] Erythrocyte distribution wid th ratioOrdered By: [facility] on 03-22-2025 Erythrocyte distribution width (RBC) [Ratio] 12.3 % 11.6-14.6 [facility] Erythrocyte distribution wid th standard deviationOrdered By: [facility]25 Erythrocyte distribution width (RBC) [Ratio] 39.8 fl 35.1-43.9 [facility] Glomerular filtration rate ( GFR) estimation/1.73 sq m using serum, plasma, or whole bOrdered By: [facility] on 03-22-2025 GFR/1.73 sq M.predicted among non-blacks MDRD (S/P/Bld) [Vol rate/Area] 77 mL/min/{1.73_m2} >60 [facility] Comment on above: mL/min/1.73m2 CKD-EP I Creatinine Equation (2020) Hematocrit Auto (Bld) [Volum e fraction]Ordered By: Carlos Bernal on 03-22-2025 Hematocrit (Bld) [Volume fraction] 32.9 % Low 37-47 [facility] Hemoglobin measurementOrdere d By: Carlos Bernal on 03-22-2025 Hemoglobin (Bld) [Mass/Vol] 10.4 g/dL Low 12.0-15.0 [facility] Immature granulocytes/100 WB C Auto (Bld)Ordered By: Carlos Bernal on 03-22-2025 Immature granulocytes/100 WBC (Bld) 0.300 % 0.0-0.9 [facility] Comment on above: IG% - Immature Granu locytes (promyelocytes, myelocytes and metamyelocytes) > 1% indicates that a LEFT SHIFT is Present. LDHon 03-22-2025 LDH 279 U/L High 84-246 [facility] Comment on above: Order Comment: 1 Performed By: #### L 100.0100, L3100.5000, L504.2610, L500.4050 ####[facility] [address] [place], [address] Laboratory - Chemistry and C hemistry - challengeOrdered By: Carlos Bernal on 03-22-2025 AST [Catalytic activity/Vol] 32 U/L <32 [facility] Lactate dehydrogenase (LDH) measurementOrdered By: Carlos Bernal on 03-22-2025 LDH [Catalytic activity/Vol] 279 U/L High 84-246 [facility] MCV (mean corpuscular volume ) determinationOrdered By: Carlos Bernal on 03-22-2025 MCV (RBC) [Entitic vol] 88.9 fL 81-99 [facility] Mean corpuscular hemoglobin (MCH) determinationOrdered By: Carlos Bernal on 03-22-2025 MCH (RBC) [Entitic mass] 28.1 pg 27.0-32.0 [facility] Mean corpuscular hemoglobin concentration (MCHC) determinationOrdered By: Carlos Bernal on 03-22-2025 MCHC (RBC) [Mass/Vol] 31.6 g/dL Low 32-36 [facility] Mean platelet volume determi nationOrdered By: Carlos Bernal on 03-22-2025 Platelet mean volume (Bld) [Entitic vol] 10.6 fL 6.2-12.0 [facility] Monocyte percentageOrdered B y: Carlos Bernal on 03-22-2025 Monocytes/100 WBC (Bld) 7.4 % 0-10 [facility] Neutrophil percentageOrdered By: Carlos Bernal on 03-22-2025 Neutrophils/100 WBC (Bld) 77.4 % High 47-70 [facility] Nucleated red blood cell per centageOrdered By: Carlos Bernal on 03-22-2025 Nucleated RBC/100 WBC (Bld) [Ratio] 0 % 0-5 [facility] Platelet countOrdered By: Emily Bernal on 03-22-2025 Platelets (Bld) [#/Vol] 314 10*3/uL 150-450 [facility] Potassium measurement (mass/ volume)Ordered By: Carlos Bernal on 03-22-2025 Potassium (Unsp spec) [Mass/Vol] 3.7 mmol/L 3.3-5.1 [facility] RBC Auto (Bld) [#/Vol]Ordere d By: Carlos Bernal on 03-22-2025 RBC (Bld) [#/Vol] 3.70 10*6/uL Low 4.2-5.4 [facility] Serum creatinine measurement (mass/volume)Ordered By: Carlos Bernal on 03-22-2025 Creatinine [Mass/Vol] 0.77 mg/dL 0.70-1.20 [facility] Serum globulin measurementOr dered By: Carlos Bernal on 03-22-2025 Globulin (S) [Mass/Vol] 3.2 g/dL 2.2-4.2 [facility] Serum glucose measurement (m ass/volume)Ordered By: Carlos Bernal on 03-22-2025 Glucose [Mass/Vol] 125 mg/dL High 70-99 [facility] Serum or plasma alanine thompson otransferase (ALT) measurementOrdered By: Carlos Bernal on 03-22-2025 ALT [Catalytic activity/Vol] 18 U/L <35 [facility] Serum or plasma albumin charlene urement (mass/volume)Ordered By: Carlos Bernal on 03-22-2025 Albumin [Mass/Vol] 4.1 g/dL 3.4-4.8 [facility] Serum or plasma albumin/glob ulin mass ratioOrdered By: Carlos Bernal on 03-22-2025 Albumin/Globulin [Mass ratio] 1.3 {ratio} 0.9-2.4 [facility] Serum or plasma alkaline dameon sphatase measurementOrdered By: Carlos Bernal on 03-22-2025 ALP [Catalytic activity/Vol] 84 U/L 35-104 [facility] Serum or plasma calcium charlene urement (mass/volume)Ordered By: Carlos Bernal on 03-22-2025 Calcium [Mass/Vol] 9.5 mg/dL 7.6-11.0 [facility] Serum or plasma urea nitroge n measurement (mass/volume)Ordered By: Carlos Bernal on 03-22-2025 Urea nitrogen [Mass/Vol] 15 mg/dL 4- [facility] Sodium levelOrdered By: Pedro Bernal on 03-22-2025 Sodium [Moles/Vol] 136 mmol/L 133-145 [facility] Total proteinOrdered By: Scot Bernal on 03-22-2025 Protein [Mass/Vol] 7.3 g/dL 5.9-8.4 [facility] White blood cell (WBC) count Ordered By: Carlos Bernal on 03-22-2025 WBC (Bld) [#/Vol] 6.5 10*3/uL 4.4-11.0 [facility] Hemoglobin A1con 02-27-2025 HbA1c (Bld) [Mass fraction] 5.6 % Normal <=5.6 [facility] Comment on above: Order Comment: Order Date: 02/27/25 Order Info: [id number] - A1C Result Comment: Norm al < 5.7 % Prediabetic 5.7 - 6.4 % Diabetic >or= 6.5 % Please note range changes. Performed By: #### L 501.9520, L501.9985 #### [facility] [address] [place], [place], [address] Hemoglobin A1c percentageOrd ered By: Lela Interiano on 02-27-2025 HbA1c (Bld) [Mass fraction] 5.6 % <5.7 [facility] Comment on above: Normal < 5.7 % Predi abetic 5.7 - 6.4 % Diabetic >or= 6.5 % Please note range changes. TSH DL <= 0.005 mIU/L QnOrde red By: Lela Interiano on 02-27-2025 TSH Qn 0.144 uIU/mL Low 0.300-4.200 [facility] Thyroid Stim Hormone (TSH)on 02-27-2025 TSH 0.144 uIU/mL Low 0.300-4.200 [facility] Comment on above: Order Comment: Order Date: 02/27/25 Order Info: [id number] - TSH Performed By: #### L 501.9520, L501.9985 #### [facility] Laboratory [address] [place], [address] Stress Reporton 02-07-2025 Stress Report [facility] [address] [place] [address] MR#: [id number] Acct: [id number] Name: LUZ CLANCY Rep #: [id number] : 1940 84 From: Riley Mckeon MD [...] MD Date Dictated: 02/07/25744 Date Transcribed: 02/07/25744 [place]: [place] Signed Normal [facility] Echo Completeon 02-03-2025 Echo Complete [facility] [address] [place] [address] Echo Complete 02/03/25913 MR#: [id number] Acct: [id number] Name: LUZ CLANCY Rep #: [id number] : 1940 84 From: Riley Mckeon MD Attending Dr: Dr. Riley Mckeon MD Status: [facility] Ordering Dr: Riley Mckeon MD Date: 02/03/25 [...] MD Date Dictated: 02/03/25913 Date Transcribed: 02/07/25830 [place]: Signed Normal [facility] 12 Lead EKG performed by [facility] on 01-11-2025 12 Lead EKG performed by [facility] [address] [place] [address] 12 Lead EKG performed by [facility] 01/11/25 1326 MR#: [id number] Acct: [id number] Name: LUZ CLANCY Rep #: [id number] : 1940 84 From: Riley Mckeon MD Attending Dr: Dr. 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 -Nonspecific ST depression -Nondiagnostic. ABNORMAL Electronically signed on 01/18/2025 at 11:27 by Riley Mckeon [employer] Version [id number] 01/18/25 1130 Date Riley Mckeon MD CC: Dr. Paola Corona MD Date Dictated: 01/11/25 1326 Date Transcribed: 01/11/251325 [place]: [place] Signed Normal [facility] Cardiology Visit Reporton Cardiology Visit Report [facility] [address] [place] [address] OFFICE VISIT Date of Service: 01/11/25 MR#: [id number] Acct: [id number] Name: LUZ CLANCY Rep #: [id number] : 1940 Provider: Dr. Riley Mckeon MD Age/Sex: 84/F Location: [facility] Status: Signed HPI HPI History of [...] Source Monitor Intake Visit Reasons: Tachycardia (Jolliff) [employer] Required: No Accompanied by: Daughter Is patient [...] normal visual (more content not included)... Normal [facility] TSH DL <= 0.005 mIU/L QnOrde red By: Paola Corona on 12-20-2024 Thyroid Stimulating Hormone (TSH) 0.321 uIU/mL 0.300-4.200 [facility] TSH Qn 0.321 uIU/mL 0.300-4.200 [facility] Thyroid Stim Hormone (TSH)on 12-20-2024 TSH 0.321 uIU/mL Normal 0.300-4.200 [facility] Comment on above: Order Comment: Order Date: 10/25/24 Order Info: [id number] - TSH Performed By: #### L 501.9520 #### [facility] Laboratory [address] [place], [address] Absolute neutrophil countOrd ered By: Paola Corona on 10-24-2024 Neutrophils (Bld) [#/Vol] 7.7 10*3/uL 2.0-7.7 [facility] Albumin to globulin ratioOrd ered By: Paola Corona on 10-24-2024 Albumin/Globulin [Mass ratio] 1.0 {ratio} 0.9-2.4 [facility] Basophil percentageOrdered B y: Paola Corona on 10-24-2024 Basophils/100 WBC (Bld) 0.5 % 0-1 [facility] Bilirubin, totalOrdered By: Paola Corona on 10-24-2024 Bilirubin [Mass/Vol] 0.20 mg/dL 0.20-1.00 [facility] Comment on above: For patients on eltr ombopag therapy, use of Dimension [place] TBIL is not recommended. Blood urea nitrogen (BUN)/cr eatinine ratioOrdered By: Paola Corona on 10-24-2024 Urea nitrogen/Creatinine [Mass ratio] 17.8 mg/mg 10-20 [facility] CBC W/Diff, Automatedon 10-12 Absolute Lymph 1.01 X10 3/uL Normal 0.83-4.51 [facility] Comment on above: Performed By: #### L 100.0100, L501.9520, L500.4050 ####[facility] [address] [place], [address] Absolute Neut 7.7 X10 3/uL Normal 2.0-7.7 [facility] Comment on above: Performed By: #### L 100.0100, L501.9520, L500.4050 ####[facility] [address] [place], [address] Basophils/100 WBC (Bld) 0.5 % Normal 0-1 [facility] Comment on above: Performed By: #### L 100.0100, L501.9520, L500.4050 ####[facility] [address] [place], [address] Eosinophils/100 WBC (Bld) 0.4 % Normal 0-5 [facility] Comment on above: Performed By: #### L 100.0100, L501.9520, L500.4050 ####[facility] [address] [place], [address] Erythrocyte distribution width (RBC) [Ratio] 12.0 % Normal 11.6-14.6 [facility] Comment on above: Performed By: #### L 100.0100, L501.9520, L500.4050 ####[facility] [address] [place], [address] Hematocrit (Bld) [Volume fraction] 37.3 % Normal 37-47 [facility] Comment on above: Performed By: #### L 100.0100, L501.9520, L500.4050 ####[facility] [address] [place], [address] Hemoglobin (Bld) [Mass/Vol] 12.2 g/dL Normal 12.0-15.0 [facility] Comment on above: Performed By: #### L 100.0100, L501.9520, L500.4050 ####[facility] [address] [place], [address] IG% 0.300 Normal 0.0-0.9 [facility] Comment on above: Result Comment: IG% - Immature Granulocytes (promyelocytes, myelocytes and metamyelocytes) > 1% indicates that a LEFT SHIFT is Present. Performed By: #### L 100.0100, L501.9520, L500.4050 ####[facility] [address] [place], [address] Lymphocytes/100 WBC (Bld) 10.6 % Low 19-41 [facility] Comment on above: Performed By: #### L 100.0100, L501.9520, L500.4050 ####[facility] [address] [place], [address] MCH (RBC) [Entitic mass] 30.0 pg Normal 27.0-32.0 [facility] Comment on above: Performed By: #### L 100.0100, L501.9520, L500.4050 ####[facility] [address] [place], [address] MCHC (RBC) [Mass/Vol] 32.7 g/dL Normal 32-36 [facility] Comment on above: Performed By: #### L 100.0100, L501.9520, L500.4050 ####[facility] [address] [place], [address] MCV (RBC) [Entitic vol] 91.6 fL Normal 81-99 [facility] Comment on above: Performed By: #### L 100.0100, L501.9520, L500.4050 ####[facility] [address] [place], [address] Monocytes/100 WBC (Bld) 7.9 % Normal 0-10 [facility] Comment on above: Performed By: #### L 100.0100, L501.9520, L500.4050 ####[facility] [address] [place], [address] Neutrophils/100 WBC (Bld) 80.3 % High 47-70 [facility] Comment on above: Performed By: #### L 100.0100, L501.9520, L500.4050 ####[facility] [address] [place], [address] Nucleated RBC (Bld) [#/Vol] 0 10*3/uL Normal 0-5 [facility] Comment on above: Performed By: #### L 100.0100, L501.9520, L500.4050 ####[facility] [address] [place], [address] Platelet mean volume (Bld) [Entitic vol] 11.5 fL Normal 6.2-12.0 [facility] Comment on above: Performed By: #### L 100.0100, L501.9520, L500.4050 ####[facility] [address] [place], [address] Platelets (Bld) [#/Vol] 296 10*3/uL Normal 150-450 [facility] Comment on above: Performed By: #### L 100.0100, L501.9520, L500.4050 ####[facility] [address] [place], [address] RBC (Bld) [#/Vol] 4.07 10*6/uL Low 4.2-5.4 [facility] Comment on above: Performed By: #### L 100.0100, L501.9520, L500.4050 ####[facility] [address] [place], [address] RDW SD 40.2 fl Normal 35.1-43.9 [facility] Comment on above: Performed By: #### L 100.0100, L501.9520, L500.4050 ####[facility] [address] [place], [address] WBC (Bld) [#/Vol] 9.6 10*3/uL Normal 4.4-11.0 [facility] Comment on above: Performed By: #### L 100.0100, L501.9520, L500.4050 ####[facility] [address] [place], [address] Carbon dioxide measurementOr dered By: Paola Corona on 10-24-2024 CO2 [Moles/Vol] 26.0 mmol/L 21.0-32.0 [facility] Chloride measurementOrdered By: Paola Corona on 10-24-2024 Chloride [Moles/Vol] 106 mmol/L 98-107 [facility] Metabolic Prof ilon 10-24-2024 Albumin [Mass/Vol] 3.9 g/dL Normal 3.2-5.0 [facility] Comment on above: Performed By: #### L 100.0100, L501.9520, L500.4050 ####[facility] [address] [place], [address] Albumin/Globulin [Mass ratio] 1.0 {ratio} Normal 0.9-2.4 [facility] Comment on above: Performed By: #### L 100.0100, L501.9520, L500.4050 ####[facility] [address] [place], [address] ALK P 76 U/L Normal 45-117 [facility] Comment on above: Performed By: #### L 100.0100, L501.9520, L500.4050 ####[facility] [address] [place], [address] ALT [Catalytic activity/Vol] 27 U/L Normal 13-56 [facility] Comment on above: Performed By: #### L 100.0100, L501.9520, L500.4050 ####[facility] [address] [place], [address] AST [Catalytic activity/Vol] 26 U/L Normal 15-37 [facility] Comment on above: Performed By: #### L 100.0100, L501.9520, L500.4050 ####[facility] [address] [place], [address] Bilirubin [Mass/Vol] 0.20 mg/dL Normal 0.20-1.00 [facility] Comment on above: Result Comment: For patients on eltrombopag therapy, use of Dimension [place] TBIL is not recommended. Performed By: #### L 100.0100, L501.9520, L500.4050 ####[facility] [address] [place], [address] BUN/CRE 17.8 RATIO Normal 10-20 [facility] Comment on above: Performed By: #### L 100.0100, L501.9520, L500.4050 ####[facility] [address] [place], [address] CA,Total 9.4 mg/dL Normal 8.5-10.1 [facility] Comment on above: Performed By: #### L 100.0100, L501.9520, L500.4050 ####[facility] [address] [place], [address] Chloride [Moles/Vol] 106 mmol/L Normal 98-107 [facility] Comment on above: Performed By: #### L 100.0100, L501.9520, L500.4050 ####[facility] [address] [place], [address] CO2 [Moles/Vol] 26.0 mmol/L Normal 21.0-32.0 [facility] Comment on above: Performed By: #### L 100.0100, L501.9520, L500.4050 ####[facility] [address] [place], [address] Creatinine [Mass/Vol] 0.73 mg/dL Normal 0.55-1.02 [facility] Comment on above: Result Comment: The validity of the calculated GFR GFRAA in patients over 70 years has not been determined. Clinical correlation is essential. Performed By: #### L 100.0100, L501.9520, L500.4050 ####[facility] [address] [place], [address] EST GFR - AA 98 mL/min Normal >60 [facility] Comment on above: Result Comment: Afri can [place] GFR Calc Performed By: #### L 100.0100, L501.9520, L500.4050 ####[facility] [address] [place], [address] GAP 5 Normal 5-15 [facility] Comment on above: Performed By: #### L 100.0100, L501.9520, L500.4050 ####[facility] [address] [place], [address] GFR/1.73 sq M.predicted among non-blacks MDRD (S/P/Bld) [Vol rate/Area] 81 mL/min/{1.73_m2} Normal >60 [facility] Comment on above: Result Comment: Non- GFR Calc Performed By: #### L 100.0100, L501.9520, L500.4050 ####[facility] [address] [place], [address] Globulin (S) [Mass/Vol] 4.1 g/dL Normal 2.2-4.2 [facility] Comment on above: Performed By: #### L 100.0100, L501.9520, L500.4050 ####[facility] [address] [place], [address] Glucose [Mass/Vol] 104 mg/dL Normal 74-106 [facility] Comment on above: Result Comment: Fast ing Glucose result from 100 to 125 mg/dL suggests IMPAIRED HOMEOSTASIS per A.D.A. criteria. Performed By: #### L 100.0100, L501.9520, L500.4050 ####[facility] [address] [place], [address] Potassium [Moles/Vol] 3.4 mmol/L Low 3.5-5.1 [facility] Comment on above: Performed By: #### L 100.0100, L501.9520, L500.4050 ####[facility] [address] [place], [address] Sodium [Moles/Vol] 136 mmol/L Normal 136-145 [facility] Comment on above: Performed By: #### L 100.0100, L501.9520, L500.4050 ####[facility] [address] [place], [address] T PROT 8.0 g/dL Normal 6.4-8.2 [facility] Comment on above: Performed By: #### L 100.0100, L501.9520, L500.4050 ####[facility] [address] [place], [address] Urea nitrogen [Mass/Vol] 13 mg/dL Normal 7-18 [facility] Comment on above: Performed By: #### L 100.0100, L501.9520, L500.4050 ####[facility] [address] [place], [address] Eosinophil percentageOrdered By: Paola Corona on 10-24-2024 Eosinophils/100 WBC (Bld) 0.4 % 0-5 [facility] Erythrocyte distribution wid th ratioOrdered By: Paola Corona on 10-24-2024 Erythrocyte distribution width (RBC) [Ratio] 12.0 % 11.6-14.6 [facility] Erythrocyte distribution wid th standard deviationOrdered By: Paola Corona on 10-24-2024 Erythrocyte distribution width (RBC) [Entitic vol] 40.2 fL 35.1-43.9 [facility] Estimated glomerular filtrat ion rate (GFR) AmericanOrdered By: Paola Corona on 10-24-2024 Estimated GFR (MDRD) Amer 98 mL/min >60 [facility] Comment on above: GFR Calc Glomerular filtration rate ( GFR) estimationOrdered By: Paola Corona on 10-24-2024 Estimated GFR (MDRD) Non-Af Amer 81 mL/min >60 [facility] Comment on above: Non- GFR Calc Glucose measurementOrdered B y: Paola Corona on 10-24-2024 Glucose [Mass/Vol] 104 mg/dL 74-106 [facility] Comment on above: Fasting Glucose resu lt from 100 to 125 mg/dL suggests IMPAIRED HOMEOSTASIS per A.D.A. criteria. Hematocrit Auto (Bld) [Volum e fraction]Ordered By: Paola Coroan on 10-24-2024 Hematocrit (Bld) [Volume fraction] 37.3 % 37-47 [facility] Hemoglobin measurementOrdere d By: Paola Corona on 10-24-2024 Hemoglobin (Bld) [Mass/Vol] 12.2 g/dL 12.0-15.0 [facility] Immature granulocytes/100 WB C Auto (Bld)Ordered By: Paola Corona on 10-24-2024 Immature granulocytes/100 WBC (Bld) 0.300 % 0.0-0.9 [facility] Comment on above: IG% - Immature Granu locytes (promyelocytes, myelocytes and metamyelocytes) > 1% indicates that a LEFT SHIFT is Present. Laboratory - Chemistry and C hemistry - challengeOrdered By: Paola Corona on 10-24-2024 AST [Catalytic activity/Vol] 26 U/L 15-37 [facility] Lymphocytes Auto (Unsp spec) [#/Vol]Ordered By: Paola Corona on 10-24-2024 Lymphocytes (Bld) [#/Vol] 1.01 10*3/uL 0.83-4.51 [facility] Lymphocytes/100 WBC Auto (Un sp spec)Ordered By: Paola Corona on 10-24-2024 Lymphocytes/100 WBC (Bld) 10.6 % Low 19-41 [facility] MCV (mean corpuscular volume ) determinationOrdered By: Paola Corona on 10-24-2024 MCV (RBC) [Entitic vol] 91.6 fL 81-99 [facility] Mean corpuscular hemoglobin (MCH) determinationOrdered By: Paola Corona on 10-24-2024 MCH (RBC) [Entitic mass] 30.0 pg 27.0-32.0 [facility] Mean corpuscular hemoglobin concentration (MCHC) determinationOrdered By: Paola Corona on 10-24-2024 MCHC (RBC) [Mass/Vol] 32.7 g/dL 32-36 [facility] Mean platelet volume determi nationOrdered By: Paola Corona on 10-24-2024 Platelet mean volume (Bld) [Entitic vol] 11.5 fL 6.2-12.0 [facility] Monocyte percentageOrdered B y: Paola Corona on 10-24-2024 Monocytes/100 WBC (Bld) 7.9 % 0-10 [facility] Neutrophil percentageOrdered By: Paola Corona on 10-24-2024 Neutrophils/100 WBC (Bld) 80.3 % High 47-70 [facility] Nucleated red blood cell per centageOrdered By: Paola Corona on 10-24-2024 Nucleated RBC/100 WBC (Bld) [Ratio] 0 % 0-5 [facility] Platelet countOrdered By: Guerrero Corona on 10-24-2024 Platelets (Bld) [#/Vol] 296 10*3/uL 150-450 [facility] Potassium measurementOrdered By: Paola Corona on 10-24-2024 Potassium [Moles/Vol] 3.4 mmol/L Low 3.5-5.1 [facility] RBC Auto (Bld) [#/Vol]Ordere d By: Paola Corona on 10-24-2024 RBC (Bld) [#/Vol] 4.07 10*6/uL Low 4.2-5.4 [facility] Serum anion gap measurementO rdered By: Paola Corona on 10-24-2024 Anion gap [Moles/Vol] 5 mmol/L 5-15 [facility] Serum globulin measurementOr dered By: Paola Corona on 10-24-2024 Globulin (S) [Mass/Vol] 4.1 g/dL 2.2-4.2 [facility] Serum or plasma alanine thompson otransferase (ALT) measurementOrdered By: Paola Corona on 10-24-2024 ALT [Catalytic activity/Vol] 27 U/L [facility] Serum or plasma albumin charlene urement (mass/volume)Ordered By: Paola Corona on 10-24-2024 Albumin [Mass/Vol] 3.9 g/dL 3.2-5.0 [facility] Serum or plasma alkaline dameon sphatase measurementOrdered By: Paola Corona on 10-24-2024 ALP [Catalytic activity/Vol] 76 U/L 45-117 [facility] Serum or plasma calcium charlene urement (mass/volume)Ordered By: Paola Corona on 10-24-2024 Calcium [Mass/Vol] 9.4 mg/dL 8.5-10.1 [facility] Serum or plasma creatinine m easurement (mass/volume)Ordered By: Paola Corona on 10-24-2024 Creatinine [Mass/Vol] 0.73 mg/dL 0.55-1.02 [facility] Comment on above: The validity of the calculated GFR & GFRAA in patients over 70 years has not been determined. Clinical correlation is essential. Serum or plasma urea nitroge n measurement (mass/volume)Ordered By: Paola Corona on 10-24-2024 Urea nitrogen [Mass/Vol] 13 mg/dL 7-18 [facility] Sodium levelOrdered By: Paola Corona on 10-24-2024 Sodium [Moles/Vol] 136 mmol/L 136-145 [facility] TSH QnOrdered By: Paola naik on 10-24-2024 Thyroid Stimulating Hormone (TSH) 6.580 uIU/mL High 0.358-3.740 [facility] Thyroid Stim Hormone (TSH)on 10-24-2024 TSH 6.580 uIU/mL High 0.358-3.740 [facility] Comment on above: Performed By: #### L 100.0100, L501.9520, L500.4050 ####[facility] [address] [place], [address] Total proteinOrdered By: Paola Corona on 10-24-2024 Protein [Mass/Vol] 8.0 g/dL 6.4-8.2 [facility] White blood cell (WBC) count Ordered By: Paola Corona on 10-24-2024 WBC (Bld) [#/Vol] 9.6 10*3/uL 4.4-11.0 [facility] Urgent Care Visit Reporton 0 10-21-2024 Urgent Care Visit Report [facility] [address], [address] [place] [address] OFFICE VISIT Date of Service: 10/21/24 MR#: [id number] Acct: [id number] Name: LUZ CLANCY Rep #: [id number] : 1940 Provider: MARLY Fox Age/Sex: 84/F Location: [facility] Status: Signed Intake Vital Signs 04/05/24 14:52 10/21/24 06:35 Height 5 ft 5 in BP 160/76 H Blood Pressure Location Lt brachial Position Sitting Respiration 16 Pulse 116 H Pulse Source NIBP Temp 97.9 F Temp Source Oral Pulse Oximetry (%) 97 Oxygen Delivery Method room air Intake Visit Reasons: BACK PAIN Chief Complaint: upper back pain [employer] Required: No Is patient in pain?: Yes [...] Garcia Signature: Date (if applicable) CC: Normal [facility] Abdomen Limitedon 05-18-2024 [facility]dom[facility] Limited [facility] [address] [place] [address] Abdomen Limited MR#: [id number] Acct: [id number] Name: ULZ CLANCY Rep #: [id number] : 1940 F 84 From: Rahel emerson MD PCP: Dr. Paola Corona MD Status: REG CLI Study: Abdomen Limited Date of Exam: 05/18/24 Exam# [id number] Ordering Dr: Paola Corona MD [id number] HISTORY: nausea. TECHNIQUE: Rodríguez scale and color [...] EDT , CC: Dr. Paola Corona MD [place]: Signed Normal [facility] Culture, urineOrdered By: Damaris Parrish on 02-04-2024 Bacteria identified Cx Nom (U) Streptococcus mitis/ oralis [facility] Laboratory - Chemistry and C hemistry - challengeon 02-04-2024 Bilirubin Ql (U) Negative [facility] Glucose Ql (U) Negative [facility] Ketones Ql (U) Negative [facility] pH (U) 6.0 [pH] [facility] Specific gravity (U) [Rel density] 1.010 [facility] Urobilinogen (U) [Mass/Vol] Negative [facility] Laboratory - Hematology and Cell countson 02-04-2024 Hemoglobin Ql (U) Negative [facility] Laboratory - Specimen inform ationon 02-04-2024 Clarity (U) Clear [facility] Color (U) YELLOW [facility] Laboratory - Urinalysison Nitrite Ql (U) Negative [facility] Protein Ql (U) Negative [facility] No Panel Informationon 02-03 Urine Leukocytes Negatve [facility] Urine Non-Hemolyzed Blood [facility] Absolute lymphocyte countOrd ered By: Carlos Bernal on 03-30-2023 Lymphocytes Auto (Unsp spec) [#/Vol] 0.90 10*3/uL 0.83-4.51 [facility] Basophil percentageOrdered B y: Carlos Bernal on 03-30-2023 Basophils/100 WBC (Bld) 0.5 % 0-1 [facility] Bilirubin [Mass/Vol] 0.30 mg/dL 0.20-1.00 [facility] Comment on above: For patients on eltr ombopag therapy, use of Dimension [place] TBIL is not recommended. Chloride [Moles/Vol] 105 mmol/L 98-107 [facility] Eosinophils/100 WBC (Bld) 1.0 % 0-5 [facility] Glucose [Mass/Vol] 100 mg/dL 74-106 [facility] Comment on above: Fasting Glucose resu lt from 100 to 125 mg/dL suggests IMPAIRED HOMEOSTASIS per A.D.A. criteria. LDH [Catalytic activity/Vol] 287 U/L 84-246 [facility] Neutrophils (Bld) [#/Vol] 2.7 10*3/uL 2.0-7.7 [facility] Neutrophils/100 WBC (Bld) 68.4 % 47-70 [facility] Potassium [Moles/Vol] 4.1 mmol/L 3.5-5.1 [facility] Protein [Mass/Vol] 8.0 g/dL 6.4-8.2 [facility] Sodium [Moles/Vol] 136 mmol/L 136-145 [facility] WBC (Bld) [#/Vol] 3.9 10*3/uL 4.4-11.0 [facility] Blood erythrocytes count (nu mber/volume)Ordered By: Carlos Bernal on 03-30-2023 RBC (Bld) [#/Vol] 3.98 10*6/uL 4.2-5.4 [facility] Blood hemoglobin measurement (mass/volume)Ordered By: Carlos Bernal on 03-30-2023 Hemoglobin (Bld) [Mass/Vol] 11.8 g/dL 12.0-15.0 [facility] Blood lymphocytes/100 leukoc ytesOrdered By: Carlos Bernal on 03-30-2023 Lymphocytes/100 WBC (Bld) 23.1 % 19-41 [facility] Blood monocytes/100 leukocyt esOrdered By: Carlos Bernal on 03-30-2023 Monocytes/100 WBC (Bld) 6.7 % 0-10 [facility] Blood platelet mean volumeOr dered By: Carlos Bernal on 03-30-2023 Platelet mean volume (Bld) [Entitic vol] 11.3 fL 6.2-12.0 [facility] Determination of erythrocyte mean corpuscular volume (MCV)Ordered By: Carlos Bernal on 03-30-2023 MCV (RBC) [Entitic vol] 93.7 fL 81-99 [facility] Hematocrit Auto (Bld) [Volum e fraction]Ordered By: Carlos Bernal on 03-30-2023 Hematocrit (Bld) [Volume fraction] 37.3 % 37-47 [facility] Laboratory - Chemistry and C hemistry - challengeOrdered By: Carlos Bernal on 03-30-2023 ALP [Catalytic activity/Vol] 62 U/L 45-117 [facility] ALT [Catalytic activity/Vol] 35 U/L 13-56 [facility] CO2 [Moles/Vol] 26.0 mmol/L 21.0-32.0 [facility] Globulin (S) [Mass/Vol] 3.9 g/dL 2.2-4.2 [facility] Urea nitrogen/Creatinine [Mass ratio] 20.2 mg/mg 10-20 [facility] Laboratory - Hematology and Cell countsOrdered By: Carlos Bernal on 03-30-2023 Erythrocyte distribution width (RBC) [Entitic vol] 42.2 fL 35.1-43.9 [facility] Erythrocyte distribution width (RBC) [Ratio] 12.3 % 11.6-14.6 [facility] Immature granulocytes/100 WBC (Bld) 0.300 % 0.0-0.9 [facility] Comment on above: IG% - Immature Granu locytes (promyelocytes, myelocytes and metamyelocytes) > 1% indicates that a LEFT SHIFT is Present. MCH (RBC) [Entitic mass] 29.6 pg 27.0-32.0 [facility] Nucleated RBC/100 WBC (Bld) [Ratio] 0 % 0-5 [facility] MCHC Auto (RBC) [Mass/Vol]Or dered By: Carlos Bernal on 03-30-2023 MCHC (RBC) [Mass/Vol] 31.6 g/dL 32-36 [facility] No Panel InformationOrdered By: Carlos Bernal on 03-30-2023 CA 125 Antigen 21.8 U/mL 0.0-38.1 [facility] Comment on above: [facility] El ectrochemiluminescence Immunoassay(ECLIA)Values obtained with different assay methods or kits cannotbe used interchangeably. Results cannot be interpreted asabsolute evidence of the presence or absence of malignantdisease.Performed at: [facility] [address] [id number] Director: Guero Smyth PhD, Phone: [phone] Estimated Creatinine Clearance Calc 44.61 ml/min [facility] Estimated GFR (MDRD) Amer 78 mL/min >60 [facility] Comment on above: GFR Calc Estimated GFR (MDRD) Non-Af Amer 64 mL/min >60 [facility] Comment on above: Non- GFR Calc Reactive Lymphocytes RARE [facility] Platelets bldOrdered By: Scot Bernal on 03-30-2023 Platelets (Bld) [#/Vol] 237 10*3/uL 150-450 [facility] Serum or plasma albumin charlene urement (mass/volume)Ordered By: Carlos Bernal on 03-30-2023 Albumin [Mass/Vol] 4.1 g/dL 3.2-5.0 [facility] Serum or plasma albumin/glob ulin mass ratioOrdered By: Carlos Bernal on 03-30-2023 Albumin/Globulin [Mass ratio] 1.1 {ratio} 0.9-2.4 [facility] Serum or plasma calcium charlene urement (mass/volume)Ordered By: Carlos Bernal on 03-30-2023 Calcium [Mass/Vol] 9.8 mg/dL 8.5-10.1 [facility] Serum or plasma creatinine m easurement (mass/volume)Ordered By: Carlos Bernal on 03-30-2023 Creatinine [Mass/Vol] 0.89 mg/dL 0.55-1.02 [facility] Comment on above: The validity of the calculated GFR & GFRAA in patients over 70 years has not been determined. Clinical correlation is essential. Serum or plasma urea nitroge n measurement (mass/volume)Ordered By: Carlos Bernal on 03-30-2023 Urea nitrogen [Mass/Vol] 18 mg/dL 7-18 [facility] Thin prep Papanicolaou smear with manual screeningOrdered By: Carlos Bernal on 03-30-2023 Thin prep Papanicolaou smear with manual screening 33 U/L 15-37 [facility] Thin prep Papanicolaou smear with manual screening 5 5-15 [facility] Absolute lymphocyte countOrd ered By: Dr. Bernal on 03-16-2023 Lymphocytes Auto (Unsp spec) [#/Vol] 0.80 10*3/uL 0.83-4.51 [facility] Basophil percentageOrdered B y: Dr. Bernal on 03-16-2023 Basophils/100 WBC (Bld) 0.8 % 0-1 [facility] Bilirubin [Mass/Vol] 0.40 mg/dL 0.20-1.00 [facility] Comment on above: For patients on eltr ombopag therapy, use of Dimension [place] TBIL is not recommended. Chloride [Moles/Vol] 108 mmol/L 98-107 [facility] Eosinophils/100 WBC (Bld) 1.8 % 0-5 [facility] Glucose [Mass/Vol] 90 mg/dL 74-106 [facility] LDH [Catalytic activity/Vol] 300 U/L 84-246 [facility] Neutrophils (Bld) [#/Vol] 3.6 10*3/uL 2.0-7.7 [facility] Neutrophils/100 WBC (Bld) 72.1 % 47-70 [facility] Potassium [Moles/Vol] 3.3 mmol/L 3.5-5.1 [facility] Protein [Mass/Vol] 8.4 g/dL 6.4-8.2 [facility] Sodium [Moles/Vol] 140 mmol/L 136-145 [facility] WBC (Bld) [#/Vol] 4.9 10*3/uL 4.4-11.0 [facility] Blood erythrocytes count (nu mber/volume)Ordered By: Dr. Bernal on 03-16-2023 RBC (Bld) [#/Vol] 4.04 10*6/uL 4.2-5.4 [facility] Blood hemoglobin measurement (mass/volume)Ordered By: Dr. Bernal on 03-16-2023 Hemoglobin (Bld) [Mass/Vol] 12.0 g/dL 12.0-15.0 [facility] Blood lymphocytes/100 leukoc ytesOrdered By: Dr. Bernal on 03-16-2023 Lymphocytes/100 WBC (Bld) 16.2 % 19-41 [facility] Blood monocytes/100 leukocyt esOrdered By: Dr. Bernal on 03-16-2023 Monocytes/100 WBC (Bld) 8.9 % 0-10 [facility] Blood platelet mean volumeOr dered By: Dr. Bernal on 03-16-2023 Platelet mean volume (Bld) [Entitic vol] 12.9 fL 6.2-12.0 [facility] Determination of erythrocyte mean corpuscular volume (MCV)Ordered By: Dr. Bernal on 03-16-2023 MCV (RBC) [Entitic vol] 95.3 fL 81-99 [facility] Hematocrit Auto (Bld) [Volum e fraction]Ordered By: Dr. Bernal on 03-16-2023 Hematocrit (Bld) [Volume fraction] 38.5 % 37-47 [facility] Laboratory - Chemistry and C hemistry - challengeOrdered By: Dr. Bernal on 03-16-2023 ALP [Catalytic activity/Vol] 61 U/L 45-117 [facility] ALT [Catalytic activity/Vol] 30 U/L 13-56 [facility] CO2 [Moles/Vol] 26.0 mmol/L 21.0-32.0 [facility] Globulin (S) [Mass/Vol] 4.4 g/dL 2.2-4.2 [facility] Urea nitrogen/Creatinine [Mass ratio] 22.6 mg/mg 10-20 [facility] Laboratory - Hematology and Cell countsOrdered By: Dr. Bernal on 03-16-2023 Erythrocyte distribution width (RBC) [Entitic vol] 44.4 fL 35.1-43.9 [facility] Erythrocyte distribution width (RBC) [Ratio] 12.7 % 11.6-14.6 [facility] Immature granulocytes/100 WBC (Bld) 0.200 % 0.0-0.9 [facility] Comment on above: IG% - Immature Granu locytes (promyelocytes, myelocytes and metamyelocytes) > 1% indicates that a LEFT SHIFT is Present. MCH (RBC) [Entitic mass] 29.7 pg 27.0-32.0 [facility] Nucleated RBC/100 WBC (Bld) [Ratio] 0 % 0-5 [facility] MCHC Auto (RBC) [Mass/Vol]Or dered By: Dr. Bernal on 03-16-2023 MCHC (RBC) [Mass/Vol] 31.2 g/dL 32-36 [facility] No Panel InformationOrdered By: Dr. Bernal on 03-16-2023 CA 125 Antigen 21.6 U/mL 0.0-38.1 [facility] Comment on above: [facility] El ectrochemiluminescence Immunoassay(ECLIA)Values obtained with different assay methods or kits cannotbe used interchangeably. Results cannot be interpreted asabsolute evidence of the presence or absence of malignantdisease.Performed at: [facility] [address] [id number] Director: Guero Smyth PhD, Phone: [phone] Estimated GFR (MDRD) Amer 89 mL/min >60 [facility] Comment on above: GFR Calc Estimated GFR (MDRD) Non-Af Amer 73 mL/min >60 [facility] Comment on above: Non- GFR Calc Platelets bldOrdered By: Dr. Bernal on 03-16-2023 Platelets (Bld) [#/Vol] 216 10*3/uL 150-450 [facility] Serum or plasma albumin charlene urement (mass/volume)Ordered By: Dr. Bernal on 03-16-2023 Albumin [Mass/Vol] 4.0 g/dL 3.2-5.0 [facility] Serum or plasma albumin/glob ulin mass ratioOrdered By: Dr. Bernal on 03-16-2023 Albumin/Globulin [Mass ratio] 0.9 {ratio} 0.9-2.4 [facility] Serum or plasma calcium charlene urement (mass/volume)Ordered By: Dr. Bernal on 03-16-2023 Calcium [Mass/Vol] 9.9 mg/dL 8.5-10.1 [facility] Serum or plasma creatinine m easurement (mass/volume)Ordered By: Dr. Bernal on 03-16-2023 Creatinine [Mass/Vol] 0.80 mg/dL 0.55-1.02 [facility] Comment on above: The validity of the calculated GFR & GFRAA in patients over 70 years has not been determined. Clinical correlation is essential. Serum or plasma urea nitroge n measurement (mass/volume)Ordered By: Dr. Bernal on 03-16-2023 Urea nitrogen [Mass/Vol] 18 mg/dL 7-18 [facility] Thin prep Papanicolaou smear with manual screeningOrdered By: Dr. Bernal on 03-16-2023 Thin prep Papanicolaou smear with manual screening 31 U/L 15-37 [facility] Thin prep Papanicolaou smear with manual screening 6 5-15 [facility] Absolute lymphocyte counton 06-05-2022 Lymphocytes Auto (Unsp spec) [#/Vol] 1.18 10*3/uL 0.83-4.51 [facility] Work Phone: Basophil percentageon 2021 Basophil percentage 0 SEEN /hpf 0-5 [facility] Work Phone: Basophils/100 WBC (Bld) 0.4 % 0-1 [facility] Work Phone: Bilirubin [Mass/Vol] 0.70 mg/dL 0.20-1.00 [facility] Work Phone: Comment on above: For patients on eltr ombopag therapy, use of Dimension [place] TBIL is not recommended. Chloride [Moles/Vol] 108 mmol/L 98-107 [facility] Work Phone: Eosinophils/100 WBC (Bld) 1.5 % 0-5 [facility] Work Phone: Glucose [Mass/Vol] 113 mg/dL 74-106 [facility] Work Phone: [phone] Comment on above: Fasting Glucose resu lt from 100 to 125 mg/dL suggests IMPAIRED HOMEOSTASIS per A.D.A. criteria. Lactate [Moles/Vol] 1.6 mmol/L 0.4-2.0 [facility] Work Phone: Neutrophils (Bld) [#/Vol] 3.1 10*3/uL 2.0-7.7 [facility] Work Phone: Neutrophils/100 WBC (Bld) 65.7 % 47-70 [facility] Work Phone: Potassium [Moles/Vol] 3.3 mmol/L 3.5-5.1 [facility] Work Phone: Protein [Mass/Vol] 7.6 g/dL 6.4-8.2 [facility] Work Phone: Sodium [Moles/Vol] 141 mmol/L 136-145 [facility] Work Phone: WBC (Bld) [#/Vol] 4.8 10*3/uL 4.4-11.0 [facility] Work Phone: [phone] Bilirubin Test strip Ql (U)o n 08-25-2022 Bilirubin Ql (U) Negative Negative [facility] Work Phone: [phone] Blood erythrocytes count (nu mber/volume)on 06-05-2022 RBC (Bld) [#/Vol] 4.09 10*6/uL 4.2-5.4 [facility] Work Phone: [phone] Blood hemoglobin measurement (mass/volume)on 06-05-2022 Hemoglobin (Bld) [Mass/Vol] 12.3 g/dL 12.0-15.0 [facility] Work Phone: Blood lymphocytes/100 leukoc yteson 06-05-2022 Lymphocytes/100 WBC (Bld) 24.8 % 19-41 [facility] Work Phone: Blood monocytes/100 leukocyt eson 06-05-2022 Monocytes/100 WBC (Bld) 7.6 % 0-10 [facility] Work Phone: Blood platelet mean volumeon 06-05-2022 Platelet mean volume (Bld) [Entitic vol] 11.6 fL 6.2-12.0 [facility] Work Phone: [phone] Determination of erythrocyte mean corpuscular volume (MCV)on 06-05-2022 MCV (RBC) [Entitic vol] 91.2 fL 81-99 [facility] Work Phone: Hematocrit Auto (Bld) [Volum e fraction]on 06-05-2022 Hematocrit (Bld) [Volume fraction] 37.3 % 37-47 [facility] Work Phone: [phone] INR in Blood by Coagulation assayon 06-05-2022 INR Coag (Bld) [Relative time] 1.0 {INR} [facility] Work Phone: [phone] Ketones Test strip Ql (U)on 06-05-2022 Ketones Ql (U) 5 mg/dl Negative [facility] Work Phone: [phone] Laboratory - Chemistry and C hemistry - challengeon 06-05-2022 ALP [Catalytic activity/Vol] 72 U/L 45-117 [facility] Work Phone: ALT [Catalytic activity/Vol] 24 U/L 13-56 [facility] Work Phone: CO2 [Moles/Vol] 24.0 mmol/L 21.0-32.0 [facility] Work Phone: Globulin (S) [Mass/Vol] 3.4 g/dL 2.2-4.2 [facility] Work Phone: Urea nitrogen/Creatinine [Mass ratio] 13.2 mg/mg 10-20 [facility] Work Phone: [phone] Laboratory - Coagulationon 0 06-05-2022 aPTT Coag (Bld) [Time] 24.3 s 24.1-36.2 [facility] Work Phone: PT Coag (PPP) [Time] 12.7 s 11.7-14.9 [facility] Work Phone: [phone] Laboratory - Hematology and Cell countson 06-05-2022 Erythrocyte distribution width (RBC) [Entitic vol] 39.8 fL 35.1-43.9 [facility] Work Phone: Erythrocyte distribution width (RBC) [Ratio] 11.9 % 11.6-14.6 [facility] Work Phone: Immature granulocytes/100 WBC (Bld) 0.000 % 0.0-0.9 [facility] Work Phone: [phone] Comment on above: IG% - Immature Granu locytes (promyelocytes, myelocytes and metamyelocytes) > 1% indicates that a LEFT SHIFT is Present. MCH (RBC) [Entitic mass] 30.1 pg 27.0-32.0 [facility] Work Phone: Nucleated RBC/100 WBC (Bld) [Ratio] 0 % 0-5 [facility] Work Phone: MCHC Auto (RBC) [Mass/Vol]on 06-05-2022 MCHC (RBC) [Mass/Vol] 33.0 g/dL 32-36 [facility] Work Phone: Mucus LM Ql (Urine sed)on Mucus Ql (Urine sed) 0 SEEN /hpf [facility] Work Phone: Nitrite Test strip Ql (U)on 06-05-2022 Nitrite Ql (U) Negative Negative [facility] Work Phone: No Panel Informationon 06-05 Estimated Creatinine Clearance Calc 47.26 ml/min [facility] Work Phone: Estimated GFR (MDRD) Amer 84 mL/min >60 [facility] Work Phone: Comment on above: GFR Calc Estimated GFR (MDRD) Non-Af Amer 70 mL/min >60 [facility] Work Phone: Comment on above: Non- GFR Calc Troponin I High Sensitivity 7 pg/mL 3.0-54.0 [facility] Work Phone: Comment on above: Please Note: New Neelima t Units and Gender Specific Reference Ranges. For more information see Policy Stat Procedure [place] High Sensitivity Troponin (TNIH) and attachments. Platelets bldon 06-05-2022 Platelets (Bld) [#/Vol] 228 10*3/uL 150-450 [facility] Work Phone: Protein Test strip Ql (U)on 06-05-2022 Protein Ql (U) Negative Negative [facility] Work Phone: Serum or plasma albumin charlene urement (mass/volume)on 06-05-2022 Albumin [Mass/Vol] 4.2 g/dL 3.2-5.0 [facility] Work Phone: Serum or plasma albumin/glob ulin mass ratioon 06-05-2022 Albumin/Globulin [Mass ratio] 1.2 {ratio} 0.9-2.4 [facility] Work Phone: Serum or plasma calcium charlene urement (mass/volume)on 06-05-2022 Calcium [Mass/Vol] 9.5 mg/dL 8.5-10.1 [facility] Work Phone: Serum or plasma creatinine m easurement (mass/volume)on 06-05-2022 Creatinine [Mass/Vol] 0.84 mg/dL 0.55-1.02 [facility] Work Phone: Comment on above: The validity of the calculated GFR & GFRAA in patients over 70 years has not been determined. Clinical correlation is essential. Serum or plasma urea nitroge n measurement (mass/volume)on 06-05-2022 Urea nitrogen [Mass/Vol] 11 mg/dL 7-18 [facility] Work Phone: Squamous epithelial cells de tection in urine sediment by light microscopyon 06-05-2022 Epithelial cells.squamous LM Ql (Urine sed) 0 SEEN /hpf 5-10 [facility] Work Phone: Thin prep Papanicolaou smear with manual screeningon 06-05-2022 Thin prep Papanicolaou smear with manual screening 24 U/L 15-37 [facility] Work Phone: Thin prep Papanicolaou smear with manual screening 9 5-15 [facility] Work Phone: Urine blood detectionon 05-13 RBC Ql (U) Negative Negative [facility] Work Phone: RBC Ql (U) 0 SEEN /hpf 0-5 [facility] Work Phone: Urine clarityon 06-05-2022 Clarity (U) Clear Clear [facility] Work Phone: Urine color determinationon 06-05-2022 Color (U) Yellow Yellow [facility] Work Phone: Urine glucose detectionon Glucose Ql (U) Normal mg/dl Normal [facility] Work Phone: Urine leukocyte esterase det ection by dipstickon 06-05-2022 Leukocyte esterase Test strip Ql (U) 25 /ul Negative [facility] Work Phone: Urine pHon 06-05-2022 pH (U) 8.0 [pH] 5.0 - 8.0 [facility] Work Phone: Urine sediment bacteria coun t by microscopy (number/high power field)on 06-05-2022 Bacteria LM.HPF (Urine sed) [#/Area] 0 /[HPF] None Seen [facility] Work Phone: Urine specific gravity measu rementon 06-05-2022 Specific gravity (U) [Rel density] 1.015 1.002-1.030 [facility] Work Phone: Urobilinogen Auto test strip Ql (U)on 06-05-2022 Urobilinogen Ql (U) Normal mg/dl Normal [facility] Work Phone: Absolute lymphocyte counton 03-12-2022 Lymphocytes Auto (Unsp spec) [#/Vol] 0.97 10*3/uL 0.83-4.51 [facility] Work Phone: Basophil percentageon 2021 Basophils/100 WBC (Bld) 1.1 % 0-1 [facility] Work Phone: [phone] Bilirubin [Mass/Vol] 0.40 mg/dL 0.20-1.00 [facility] Work Phone: [phone] Comment on above: For patients on eltr ombopag therapy, use of Dimension [place] TBIL is not recommended. Chloride [Moles/Vol] 108 mmol/L 98-107 [facility] Work Phone: Eosinophils/100 WBC (Bld) 2.9 % 0-5 [facility] Work Phone: [phone] Glucose [Mass/Vol] 116 mg/dL 74-106 [facility] Work Phone: Comment on above: Fasting Glucose resu lt from 100 to 125 mg/dL suggests IMPAIRED HOMEOSTASIS per A.D.A. criteria. Neutrophils (Bld) [#/Vol] 2.3 10*3/uL 2.0-7.7 [facility] Work Phone: Neutrophils/100 WBC (Bld) 60.7 % 47-70 [facility] Work Phone: [phone] Potassium [Moles/Vol] 3.7 mmol/L 3.5-5.1 [facility] Work Phone: Protein [Mass/Vol] 7.2 g/dL 6.4-8.2 [facility] Work Phone: Sodium [Moles/Vol] 140 mmol/L 136-145 [facility] Work Phone: WBC (Bld) [#/Vol] 3.8 10*3/uL 4.4-11.0 [facility] Work Phone: Blood erythrocytes count (nu mber/volume)on 03-12-2022 RBC (Bld) [#/Vol] 3.65 10*6/uL 4.2-5.4 [facility] Work Phone: [phone] Blood hemoglobin measurement (mass/volume)on 03-12-2022 Hemoglobin (Bld) [Mass/Vol] 11.0 g/dL 12.0-15.0 [facility] Work Phone: Blood lymphocytes/100 leukoc yteson 03-12-2022 Lymphocytes/100 WBC (Bld) 25.5 % 19-41 [facility] Work Phone: Blood monocytes/100 leukocyt eson 03-12-2022 Monocytes/100 WBC (Bld) 9.5 % 0-10 [facility] Work Phone: Blood platelet mean volumeon 03-12-2022 Platelet mean volume (Bld) [Entitic vol] 11.0 fL 6.2-12.0 [facility] Work Phone: Determination of erythrocyte mean corpuscular volume (MCV)on 03-12-2022 MCV (RBC) [Entitic vol] 92.6 fL 81-99 [facility] Work Phone: Hematocrit Auto (Bld) [Volum e fraction]on 03-12-2022 Hematocrit (Bld) [Volume fraction] 33.8 % 37-47 [facility] Work Phone: [phone] Laboratory - Chemistry and C hemistry - challengeon 03-12-2022 ALP [Catalytic activity/Vol] 84 U/L 45-117 [facility] Work Phone: ALT [Catalytic activity/Vol] 31 U/L 13-56 [facility] Work Phone: [phone] CO2 [Moles/Vol] 25.0 mmol/L 21.0-32.0 [facility] Work Phone: [phone] Globulin (S) [Mass/Vol] 3.5 g/dL 2.2-4.2 [facility] Work Phone: [phone] Urea nitrogen/Creatinine [Mass ratio] 15.7 mg/mg 10-20 [facility] Work Phone: Laboratory - Hematology and Cell countson 03-12-2022 Erythrocyte distribution width (RBC) [Entitic vol] 41.8 fL 35.1-43.9 [facility] Work Phone: [phone] Erythrocyte distribution width (RBC) [Ratio] 12.2 % 11.6-14.6 [facility] Work Phone: [phone] Immature granulocytes/100 WBC (Bld) 0.300 % 0.0-0.9 [facility] Work Phone: [phone] Comment on above: IG% - Immature Granu locytes (promyelocytes, myelocytes and metamyelocytes) > 1% indicates that a LEFT SHIFT is Present. MCH (RBC) [Entitic mass] 30.1 pg 27.0-32.0 [facility] Work Phone: [phone] Nucleated RBC/100 WBC (Bld) [Ratio] 0 % 0-5 [facility] Work Phone: [phone] MCHC Auto (RBC) [Mass/Vol]on 03-12-2022 MCHC (RBC) [Mass/Vol] 32.5 g/dL 32-36 [facility] Work Phone: [phone] No Panel Informationon 03-12 CA 125 Antigen 13.5 U/mL 0.0-38.1 [facility] Work Phone: [phone] Comment on above: [facility] El ectrochemiluminescence Immunoassay(ECLIA)Values obtained with different assay methods or kits cannotbe used interchangeably. Results cannot be interpreted asabsolute evidence of the presence or absence of malignantdisease.Performed at: [facility] [address] [id number] Director: Guero Smyth PhD, Phone: [phone] Estimated Creatinine Clearance Calc 48.64 ml/min [facility] Work Phone: Estimated GFR (MDRD) Amer 85 mL/min >60 [facility] Work Phone: Comment on above: GFR Calc Estimated GFR (MDRD) Non-Af Amer 71 mL/min >60 [facility] Work Phone: Comment on above: Non- GFR Calc Platelets bldon 03-12-2022 Platelets (Bld) [#/Vol] 212 10*3/uL 150-450 [facility] Work Phone: Serum or plasma albumin charlene urement (mass/volume)on 03-12-2022 Albumin [Mass/Vol] 3.7 g/dL 3.2-5.0 [facility] Work Phone: Serum or plasma albumin/glob ulin mass ratioon 03-12-2022 Albumin/Globulin [Mass ratio] 1.1 {ratio} 0.9-2.4 [facility] Work Phone: Serum or plasma calcium charlene urement (mass/volume)on 03-12-2022 Calcium [Mass/Vol] 9.5 mg/dL 8.5-10.1 [facility] Work Phone: Serum or plasma creatinine m easurement (mass/volume)on 03-12-2022 Creatinine [Mass/Vol] 0.83 mg/dL 0.55-1.02 [facility] Work Phone: Comment on above: The validity of the calculated GFR & GFRAA in patients over 70 years has not been determined. Clinical correlation is essential. Serum or plasma urea nitroge n measurement (mass/volume)on 03-12-2022 Urea nitrogen [Mass/Vol] 13 mg/dL 7-18 [facility] Work Phone: Thin prep Papanicolaou smear with manual screeningon 03-12-2022 Thin prep Papanicolaou smear with manual screening 23 U/L 15-37 [facility] Work Phone: Thin prep Papanicolaou smear with manual screening 7 5-15 [facility] Work Phone: Thin prep Papanicolaou smear with manual screening 251 U/L 84-246 [facility] Work Phone: CNOVon 10-08-2021 CNOV Office Visit (UCWSTR ) -- LUZ CLANCY Taiwo ([id number]) 1940 F Date Time Provider Department 10/08/21 7:30 AM SEBLE VANN [facility] During your visit today, we recorded the following information about you: Temperature Pulse Respiration Blood pressure 96.7 degrees 88/minute 16/minute 182/94 Weight 58.1 kg Seble Vann APRN.CNP 10/08/2021 8:25 AM Signed This note was created using TUNJIriter. Subjective Luz Clancy is a 81 year old female. 81 year old female with PMH GERD presents with complaints of COVID concern. Acute onset of symptoms yesterday. +chills Denies SOB. Denies URI sx. Denies fever or chills. Denies N/V/D. Denies skin rash or lesions. Has had x 2 COVID She had + exposure to COVID on [place]. She is accompanied by her daughter and son in law who are here for same. The history is provided by the patient. No speech language pathologist travel was used. Illness The current episode started [...] Laterality Date - COLONOSCOP W/ OR W/O [facility] SPEC 06/17/2006 Colonoscopy - COLONOSCOP W/ OR W/O [facility] SPEC 07/15/11 - COLONOSCOP W/ OR W/O [facility] SPEC 07/17/16 Colonoscopy (needs MAC next time) [...] Pulses: No (more content not included)... Normal [facility] COVID w FLU A+B Routon 10-08 Influenza A PCR Negative Normal [facility] Comment on above: Performed By: #### C OVFLU #### [facility] [employer] [address] [address] Influenza B PCR Negative Normal [facility] [place] Comment on above: Performed By: #### C OVFLU #### [facility] [employer] [address] [place], [place] [address] SARS-CoV-2 (COVID-19) RNA NAKUL+probe Ql (Unsp spec) UPPER RESPIRATORY TRACT SWAB Normal [facility] Comment on above: Performed By: #### C OVFLU #### [facility] [employer] [address] [place], [place] [address] SARS-CoV-2 (COVID-19) RNA NAKUL+probe Ql (Unsp spec) Negative for COVID19 (SARS CoV2) by RT-PCR or equivalent method. Normal Negative for COVID19 (SARS CoV2) by RT-PCR or equivalent method. [facility] Comment on above: Result Comment: This test was developed and its performance characteristics determined by [facility]. This test has been authorized by FDA under an Emergency Use Authorization (EUA). This test has been validated in accordance with the FDA's Guidance Document Policy for Diagnostics Testing in Laboratories Certified to Perform High Complexity Testing under CLIA prior to Emergency use Authorization for Coronavirus Disease 2019 during the Public Health Emergency issued on December 10, 2019. Test performed by [facility], [facility], [address] [place] [address]. Performed By: #### C OVFLU #### [facility] [address] [place] [address] Erythrocyte distribution wid th standard deviationon 03-16-2019 Erythrocyte distribution width (RBC) [Entitic vol] 40.4 fL 35.1-43.9 [facility] Laboratory - Hematology and Cell countson 03-16-2019 Erythrocyte distribution width (RBC) [Ratio] 12.1 % 11.6-14.6 [facility] Total cell counton 9 Cells counted Molgen (Bld/Tiss) [#] Not Reportable [facility] Laboratory - Coagulationon 10-24-2016 aPTT Coag (Bld) [Time] 25.9 s 24.1-36.2 [facility] INR Coag (Bld) [Relative time] 0.9 {INR} [facility] PT Coag (PPP) [Time] 11.4 s Low 11.7-14.9 [facility] Report: CBC W/Diff, Auto matedon 02-11-2017 Basophils/100 leukocytes 0.7 % Invalid Interpretation Code 0-1 [facility] Work Phone: Eosinophils/100 leukocytes 2.1 % Invalid Interpretation Code 0-5 [facility] Work Phone: Erythrocytes (RBC) 4.35 10*6/uL Invalid Interpretation Code 4.2-5.4 [facility] Work Phone: Hematocrit (HCT) 42.1 % Invalid Interpretation Code 37-47 [facility] Work Phone: Hemoglobin (HGB) 13.5 g/dL Invalid Interpretation Code 12.0-15.0 [facility] Work Phone: immature granulocytes, percentage of total cells, blood 0.000 % Invalid Interpretation Code 0.0-0.9 [facility] Work Phone: Lymphocytes 1.03 X10 3/UL Invalid Interpretation Code 0.83-4.51 [facility] Work Phone: Lymphocytes/100 leukocytes 23.5 % Invalid Interpretation Code 19-41 [facility] Work Phone: MCH 31.0 pg Invalid Interpretation Code 27.0-32.0 [facility] Work Phone: MCHC 32.1 G/GL Invalid Interpretation Code 32-36 [facility] Work Phone: MCV 96.8 fL Invalid Interpretation Code 81-99 [facility] Work Phone: Monocytes/100 leukocytes 9.6 % Invalid Interpretation Code 0-10 [facility] Work Phone: neutrophil count, blood 2.8 X10 3/UL Invalid Interpretation Code 2.0-7.7 [facility] Work Phone: Neutrophils/100 leukocytes 64.1 % Invalid Interpretation Code 47-70 [facility] Work Phone: Platelets 249 10*3/mm3 Invalid Interpretation Code 150-450 [facility] Work Phone: PMV by Kandis 11.0 fL Invalid Interpretation Code 6.2-12.0 [facility] Work Phone: RDW-CA 12.4 % Invalid Interpretation Code 11.6-14.6 [facility] Work Phone: red blood cell distribution width, size density 44.0 fL High 35.1-43.9 [facility] Work Phone: WBC (Leukocytes) 4.4 10*3/uL Invalid Interpretation Code 4.4-11.0 [facility] Work Phone: Lab Report: [facility] 02-11-2017 Alanine aminotransferase (ALT) 30 U/L Invalid Interpretation Code 12-78 [facility] Work Phone: Albumin 4.6 g/dL Invalid Interpretation Code 3.4-5.0 [facility] Work Phone: Albumin/Globulin Ratio 1.1 {ratio} Invalid Interpretation Code 0.9-2.4 [facility] Work Phone: Alkaline phosphatase (ALP) 73 U/L Invalid Interpretation Code 45-117 [facility] Work Phone: Anion gap 10 mmol/L Invalid Interpretation Code 5-15 [facility] Work Phone: Aspartate aminotransferase (AST) 23 U/L Invalid Interpretation Code 15-37 [facility] Work Phone: Bilirubin (total) 0.40 mg/dL Invalid Interpretation Code 0.20-1.00 [facility] Work Phone: BUN/Creatinine Ratio 19.1 RATIO Invalid Interpretation Code 10-20 [facility] Work Phone: Calcium 9.4 mg/dL Invalid Interpretation Code 8.5-10.1 [facility] Work Phone: Chloride 103 mmol/L Invalid Interpretation Code 98-107 [facility] Work Phone: CO2 26.0 mmol/L Invalid Interpretation Code 21.0-32.0 [facility] Work Phone: Creatinine 0.84 mg/dL Invalid Interpretation Code 0.55-1.02 [facility] Work Phone: eGFR (non-black) 85 mL/min/{1.73_m2} Invalid Interpretation Code >60 [facility] Work Phone: eGFR (non-black) 70 mL/min/{1.73_m2} Invalid Interpretation Code >60 [facility] Work Phone: Globulin 4.1 g/dL High 2.3-3.5 [employer] Work Phone: [phone] Glucose 89 mg/dL Invalid Interpretation Code 70-110 [employer] Work Phone: Potassium 3.7 mmol/L Invalid Interpretation Code 3.5-5.1 [employer] Work Phone: Protein 8.7 g/dL High 6.4-8.2 [employer] Work Phone: [phone] Sodium 139 mmol/L Invalid Interpretation Code 136-145 [employer] Work Phone: Urea nitrogen 16 mg/dL Invalid Interpretation Code 7-18 [employer] Work Phone: Lab Report: LDHon 02-11-2017 lactate dehydrogenase - serum 285 U/L High 84-246 [employer] Work Phone: Lab Report: Magnesiumon 05-0 Magnesium 2.5 mg/dL High 1.8-2.4 [employer] Work Phone: Lab Report: Uric Acidon 05-0 Urate 3.7 mg/dL Invalid Interpretation Code 2.6-6.0 [employer] Work Phone: Office Visit: 6 mo f/u - PHQ 9 Completeon 08-14-2016 Adolescent depression screening assessment Adolescent depression screening assessment Invalid Interpretation Code [employer] Work Phone: Adult depression screening assessment Adult depression screening assessment Invalid Interpretation Code [employer] Work Phone: Documentation of current medications (procedure) Done Invalid Interpretation Code [employer] Work Phone: Tobacco smoking status NHIS Never Invalid Interpretation Code [employer] Work Phone: Tobacco use CPHS Never smoker Invalid Interpretation Code [employer] Phone: Office Visit: 6 mo f/u - PHQ 9 Completeon 07-16-2016 Colonoscopy (procedure) Colonoscopy (procedure) Invalid Interpretation Code [employer] Work Phone: Office Visit: 6 mo f/u - PHQ 9 Completeon 10-15-2015 Breast Mammogram screening Normal Bilateral Invalid Interpretation Code [facility] Work Phone: Lab Report: Cancer Antigen 1 25on 07-27-2015 cancer 125 antigen 11.2 U/mL Invalid Interpretation Code 0.0-34.0 [facility] Work Phone: Lab Report: CBC W/Diff, Auto - EPLAB Onlyon 02-15-2015 Absolute Neutrophil count 1.5 X10 3/UL Low 2.0-7.7 [facility] Work Phone: Lab Report: Comprehensive Me tabolic Profilon 11-14-2014 GE use only - for [employer] import when terms are not otherwise specified 66 U/L Invalid Interpretation Code 50-136 [facility] Work Phone: Lab Report: LDHon 11-14-2014 Lactate dehydrogenase (LDH) 188 U/L Invalid Interpretation Code 87-241 [facility] Work Phone: Lab Report: Thyroid Stim Hor salvador (TSH)on 11-14-2014 Thyroid stimulating hormone (TSH) 4.78 u[iU]/mL Critically high 0.358-3.74 [facility] Work Phone: Lab Report: B12on 01-16-2014 vitamin b12, serum 424 pg/mL Normal 211-911 [facility] Work Phone: Lab Report: FOLon 01-16-2014 Folate 55.10 ng/mL High 3.1-17.5 [facility] Work Phone: Lab Report: LIVERon 01-17-20 14 Bilirubin (direct) 0.08 mg/dL Normal 0.00-0.30 [facility] Work Phone: Office Visit: 6 mo f/u - PHQ 9 Completeon 08-12-2006 General categories [interpretation] of Cervical or vaginal smear or scraping by Cyto stain Normal Invalid Interpretation Code [facility] Work Phone: Culture, urine Bacteria identified Cx Nom (U) Positive [facility] Work Phone: Laboratory - Microbiology an d Antimicrobial susceptibility Bacteria identified Cx Nom (Bld) No growth in 5 days. [facility] Work Phone: Vital Signs Date Time Vital Sign Value Performing Clinician Arsenio shearery 05-16-2025 08:46-0400 Body mass index (BMI) [Ratio] 20.7 kg/m2 Dr. Paola Corona MD Work Phone: [facility] 05-16-2025 08:46-0400 Body weight 56.[address] Paola Corona MD Work Phone: [facility] 05-16-2025 08:46-0400 Diastolic blood pressure 96 mm[Hg] Dr. Paola Corona MD Work Phone: [facility] 05-16-2025 08:46-0400 Heart rate 80 /min Dr. Paola Corona MD Work Phone: [facility] 05-16-2025 08:46-0400 Respiratory rate 18 /min Dr. Paola Corona MD Work Phone: [facility] 05-16-2025 08:46-0400 SaO2% (BldA) [Mass fraction] 98 % Dr. Paola Corona MD Work Phone: [facility] 05-16-2025 08:46-0400 Systolic blood pressure 167 mm[Hg] Dr. Paola Corona MD Work Phone: [facility] 05-10-2025 13:11-0400 Diastolic blood pressure 63 mm[Hg] Dr. Paola Corona MD Work Phone: [facility] 05-10-2025 13:11-0400 Heart rate 72 /min Dr. Paola Corona MD Work Phone: [facility] 05-10-2025 13:11-0400 Respiratory rate 18 /min Dr. Paola Corona MD Work Phone: [facility] 05-10-2025 13:11-0400 SaO2% (BldA) [Mass fraction] 100 % Dr. Paola Corona MD Work Phone: [facility] 05-10-2025 13:11-0400 Systolic blood pressure 123 mm[Hg] Dr. Paola Corona MD Work Phone: 5(333)422-259611 [place] [address] 05-10-2025 08:17-0400 Body height 165.[address] Paola Corona MD Work Phone: 5(949)110-830928 [address] 05-10-2025 08:17-0400 Body mass index (BMI) [Ratio] 20.5 kg/m2 Dr. Paola Corona MD Work Phone: 0(100)712-973628 [address] 05-10-2025 08:17-0400 Body temperature 98.6 [degF] Dr. Paola Corona MD Work Phone: 4(178)109-697929 [place] [address] 05-10-2025 08:17-0400 Body weight 55.[address] Paola Corona MD Work Phone: 0(777)704-486429 [place] [address] 04-24-2025 15:53-0400 Body height 165.[address] Paola Corona MD Work Phone: 3(424)645-438029 [place] [address] 04-24-2025 15:53-0400 Body mass index (BMI) [Ratio] 20.9 kg/m2 Dr. Paola Corona MD Work Phone: 2(069)365-237529 [place] [address] 04-24-2025 15:53-0400 Body temperature 98.8 [degF] Dr. Paola Corona MD Work Phone: 9(557)456-822529 [place] [address] 04-24-2025 15:53-0400 Body weight 57.[address] Paola Corona MD Work Phone: 1(228)768-304911 [place] [address] 04-24-2025 15:53-0400 Diastolic blood pressure 81 mm[Hg] Dr. Paola Corona MD Work Phone: 0(013)747-717229 [place] [address] 04-24-2025 15:53-0400 Heart rate 75 /min Dr. Paola Corona MD Work Phone: 5(176)997-978928 [address] 04-24-2025 15:53-0400 Respiratory rate 18 /min Dr. Paola Corona MD Work Phone: [facility] 04-24-2025 15:53-0400 SaO2% (BldA) [Mass fraction] 98 % Dr. Paola Corona MD Work Phone: [facility] 04-24-2025 15:53-0400 Systolic blood pressure 180 mm[Hg] Dr. Paola Corona MD Work Phone: 2(104)612-875011 [place] [address] 04-12-2025 14:56-0400 Body height 165.[address] Paola Corona MD Work Phone: 5(323)165-342328 [address] 04-12-2025 14:56-0400 Body mass index (BMI) [Ratio] 21 kg/m2 Dr. Paola Corona MD Work Phone: 7(767)837-341228 [address] 04-12-2025 14:56-0400 Body weight 57.[address] Paola Corona MD Work Phone: 8(128)403-173311 [place] [address] 04-12-2025 14:56-0400 Diastolic blood pressure 99 mm[Hg] Dr. Paola Corona MD Work Phone: 0(975)707-174811 [place] [address] 04-12-2025 14:56-0400 Heart rate 81 /min Dr. Paola Corona MD Work Phone: 0(724)575-303411 [place] [address] 04-12-2025 14:56-0400 Respiratory rate 15 /min Dr. Paola Corona MD Work Phone: 3(540)939-793611 [place] [address] 04-12-2025 14:56-0400 SaO2% (BldA) [Mass fraction] 99 % Dr. Paola Corona MD Work Phone: [facility] 04-12-2025 14:56-0400 Systolic blood pressure 171 mm[Hg] Dr. Paola Corona MD Work Phone: 0(791)555-487311 [place] [address] 01-11-2025 13:26-0400 Body mass index (BMI) [Ratio] 22.1 kg/m2 Dr. Paola Corona MD Work Phone: 8(089)149-116511 [place] [address] 01-11-2025 13:26-0400 Body weight 60.[address] Paola Corona MD Work Phone: [facility] 01-11-2025 13:26-0400 Diastolic blood pressure 99 mm[Hg] Dr. Paola Corona MD Work Phone: [facility] 01-11-2025 13:26-0400 Heart rate 99 /min Dr. Paola Corona MD Work Phone: 7(740)087-481111 [place] [address] 01-11-2025 13:26-0400 Respiratory rate 16 /min Dr. Paola Corona MD Work Phone: 4(927)063-485311 [place] [address] 01-11-2025 13:26-0400 Systolic blood pressure 177 mm[Hg] Dr. Paola Corona MD Work Phone: 4(688)109-353928 [address] 10-21-2024 06:35-0500 Body temperature 97.9 [degF] Dr. Paola Corona MD Work Phone: 0(796)596-391711 [place] [address] 10-21-2024 06:35-0500 Diastolic blood pressure 76 mm[Hg] Dr. Paola Corona MD Work Phone: 8(809)643-150111 [place] [address] 10-21-2024 06:35-0500 Heart rate 116 /min Dr. Paola Corona MD Work Phone: 9(162)282-463711 [place] [address] 10-21-2024 06:35-0500 Respiratory rate 16 /min Dr. Paola Corona MD Work Phone: 6(142)779-603311 [place] [address] 10-21-2024 06:35-0500 SaO2% (BldA) [Mass fraction] 97 % Dr. Paola Corona MD Work Phone: 3(717)149-725111 [place] [address] 10-21-2024 06:35-0500 Systolic blood pressure 160 mm[Hg] Dr. Paola Corona MD Work Phone: [facility] 02-04-2024 06:47-0400 Body temperature 97.8 [degF] Dr. Paola Corona Work Phone: [facility] 02-04-2024 06:47-0400 Diastolic blood pressure 74 mm[Hg] Dr. Paola Corona Work Phone: [facility] 02-04-2024 06:47-0400 Heart rate 91 /min Dr. Paola Corona Work Phone: [facility] 02-04-2024 06:47-0400 Respiratory rate 17 /min Dr. Paola Corona Work Phone: [facility] 02-04-2024 06:47-0400 SaO2% (BldA) [Mass fraction] 99 % Dr. Paola Corona Work Phone: [facility] 02-04-2024 06:47-0400 Systolic blood pressure 158 mm[Hg] Dr. Paola Corona Work Phone: [facility] 12-26-2023 08:05-0400 Body temperature 98.1 [degF] Dr. Paola Corona Work Phone: [facility] 12-26-2023 08:05-0400 Diastolic blood pressure 84 mm[Hg] Dr. Paola Corona Work Phone: 6(612)960-127211 [place] [address] 12-26-2023 08:05-0400 Heart rate 101 /min Dr. Paola Corona Work Phone: [facility] 12-26-2023 08:05-0400 Respiratory rate 14 /min Dr. Paola Corona Work Phone: [facility] 12-26-2023 08:05-0400 SaO2% (BldA) [Mass fraction] 98 % Dr. Paola Corona Work Phone: [facility] 12-26-2023 08:05-0400 Systolic blood pressure 140 mm[Hg] Dr. Paola Corona Work Phone: [facility] 12-10-2023 07:08-0500 Body height 165.[address] Paola Corona Work Phone: [facility] 12-10-2023 07:08-0500 Body mass index (BMI) [Ratio] 21.9 kg/m2 Dr. Paola Corona Work Phone: [facility] 12-10-2023 07:08-0500 Body temperature 98 [degF] Dr. Paola Corona Work Phone: [facility] 12-10-2023 07:08-0500 Body weight 59.[address] Paola Corona Work Phone: [facility] 12-10-2023 07:08-0500 Diastolic blood pressure 80 mm[Hg] Dr. Paola Corona Work Phone: [facility] 12-10-2023 07:08-0500 Heart rate 97 /min Dr. Paola Corona Work Phone: [facility] 12-10-2023 07:08-0500 Respiratory rate 12 /min Dr. Paola Corona Work Phone: [facility] 12-10-2023 07:08-0500 SaO2% (BldA) [Mass fraction] 96 % Dr. Paola Corona Work Phone: [facility] 12-10-2023 07:08-0500 Systolic blood pressure 162 mm[Hg] Dr. Paola Corona Work Phone: [facility] 03-23-2023 13:28-0400 Body height 165.[address] Paola Corona Work Phone: [facility] 03-23-2023 13:28-0400 Body mass index (BMI) [Ratio] 21.6 kg/m2 Dr. Paola Corona Work Phone: [facility] 03-23-2023 13:28-0400 Body temperature 97.3 [degF] Dr. Paola Corona Work Phone: [facility] 03-23-2023 13:28-0400 Body weight 59.[address] Paola Corona Work Phone: [facility] 03-23-2023 13:28-0400 Diastolic blood pressure 81 mm[Hg] Dr. Paola Corona Work Phone: [facility] 03-23-2023 13:28-0400 Heart rate 87 /min Dr. Paola Corona Work Phone: [facility] 03-23-2023 13:28-0400 Respiratory rate 16 /min Dr. Paola Corona Work Phone: [facility] 03-23-2023 13:28-0400 SaO2% (BldA) [Mass fraction] 99 % Dr. Paola Corona Work Phone: [facility] 03-23-2023 13:28-0400 Systolic blood pressure 175 mm[Hg] Dr. Paola Corona Work Phone: [facility] 06-05-2022 10:31-0400 Body temperature 98.6 [degF] Dr. Paola Corona Work Phone: [facility] Work Phone: 06-05-2022 10:29-0400 Diastolic blood pressure 84 mm[Hg] Dr. Paola Corona Work Phone: [facility] Work Phone: 06-05-2022 10:29-0400 Heart rate 83 /min Dr. Paola Corona Work Phone: [facility] Work Phone: 06-05-2022 10:29-0400 Respiratory rate 18 /min Dr. Paola Corona Work Phone: [facility] Work Phone: 06-05-2022 10:29-0400 SaO2% (BldA) [Mass fraction] 96 % Dr. Paola Corona Work Phone: [facility] Work Phone: 06-05-2022 10:29-0400 Systolic blood pressure 144 mm[Hg] Dr. Paola Corona Work Phone: [facility] Work Phone: 06-05-2022 07:50-0400 Body height 165.[address] Paola Corona Work Phone: [facility] Work Phone: 06-05-2022 07:50-0400 Body mass index (BMI) [Ratio] 24.7 kg/m2 Dr. Paola Corona Work Phone: [facility] Work Phone: 06-05-2022 07:50-0400 Body weight 67.[address] Paola Corona Work Phone: [facility] Work Phone: 03-24-2022 15:22-0400 Body height 162.[address] Paola Corona Work Phone: [facility] Work Phone: 03-24-2022 15:22-0400 Body mass index (BMI) [Ratio] 23.1 kg/m2 Dr. Paola Corona Work Phone: [facility] Work Phone: 03-24-2022 15:22-0400 Body temperature 98.4 [degF] Dr. Paola Corona Work Phone: [facility] Work Phone: 03-24-2022 15:22-0400 Body weight 61.[address] Paola Corona Work Phone: [facility] Work Phone: 03-24-2022 15:22-0400 Diastolic blood pressure 96 mm[Hg] Dr. Paola Corona Work Phone: [facility] Work Phone: 03-24-2022 15:22-0400 Heart rate 82 /min Dr. Paola Corona Work Phone: [facility] Work Phone: 03-24-2022 15:22-0400 Respiratory rate 15 /min Dr. Paola Corona Work Phone: [facility] Work Phone: 03-24-2022 15:22-0400 SaO2% (BldA) [Mass fraction] 97 % Dr. Paola Corona Work Phone: [facility] Work Phone: 03-24-2022 15:22-0400 Systolic blood pressure 182 mm[Hg] Dr. Paola Corona Work Phone: [facility] Work Phone: 02-16-2022 13:58-0400 Diastolic blood pressure 85 mm[Hg] [facility] Work Phone: 02-16-2022 13:58-0400 Heart rate 75 /min [facility] Work Phone: 02-16-2022 13:58-0400 SaO2% (BldA) [Mass fraction] 98 % [facility] Work Phone: 02-16-2022 13:58-0400 Systolic blood pressure 186 mm[Hg] [facility] Work Phone: 02-16-2022 12:46-0400 Body height 162.56 cm [facility] Work Phone: 02-16-2022 12:46-0400 Body mass index (BMI) [Ratio] 22.3 kg/m2 [facility] Work Phone: 02-16-2022 12:46-0400 Body temperature 96.8 [degF] [facility] Work Phone: 02-16-2022 12:46-0400 Body weight 58.96 kg [facility] Work Phone: 02-16-2022 12:46-0400 Respiratory rate 18 /min [facility] Work Phone: 03-22-2020 14:59-0400 Body mass index (BMI) [Ratio] 21.8 kg/m2 Dr. Paola Corona Work Phone: [facility] 03-22-2020 14:59-0400 Body temperature 97.6 [degF] Dr. Paola Corona Work Phone: [facility] 03-22-2020 14:59-0400 Body weight 59.[address] Paola Corona Work Phone: [facility] 03-22-2020 14:59-0400 Diastolic blood pressure 82 mm[Hg] Dr. Paola Corona Work Phone: [facility] 03-22-2020 14:59-0400 Heart rate 74 /min Dr. Paola Corona Work Phone: [facility] 03-22-2020 14:59-0400 Respiratory rate 16 /min Dr. Paola Corona Work Phone: [facility] 03-22-2020 14:59-0400 SaO2% (BldA) [Mass fraction] 98 % Dr. Paola Corona Work Phone: [facility] 03-22-2020 14:59-0400 Systolic blood pressure 162 mm[Hg] Dr. Paola Corona Work Phone: [facility] 08-14-2016 13:23-0400 BMI (Body Mass Index) 22.1 kg/m2 Carlos Bernal MD [facility] Work Phone: 08-14-2016 13:23-0400 Body [...] 13:23-040 Weight 59.33 kg Carlos Bernal MD [facility] Work Phone: 08-14-2016 13:23040 Weight 59.45 kg Carlos Bernal MD [facility] Work Phone: 11-21-2014 13:0500 Height 163.83 cm Carlos Bernal MD [facility] Work Phone: Encounters Encounter Date Encounter Type Care Provider Facility Start: 05-16-2025 End: 05-16-2025 Patient encounter procedure Laney HUNT -[facility] Work Phone: Start: 05-16-2025 End: 05-16-[address] Poala Corona MD Work Phone: -[facility] Start: 05-10-2025 Encounter for other preprocedural [facility] Start: 05-10-[address] Carlos Bernal MD -Cat Scan [facility] Work Phone: Start: 05-10-2025 ambulatory [facility] Facility:[facility] Start: 05-02-2025 ambulatory [facility] Facility:[facility] Start: 05-02-[address] Carlos Bernal MD -[facility] Start: 04-24-2025 End: 04-24-[address] Carlos Bernal MD -[facility] Work Phone: Start: 04-24-2025 End: 04-24-[address] Paola Corona MD Work Phone: [facility] Start: 04-17-2025 End: 04-17-[address] Paola Corona MD Work Phone: -Cat Scan [facility] Start: 04-17-2025 End: 04-17-[address] Carlos Bernal MD -Cat Scan [facility] Work Phone: Start: 04-17-2025 End: 04-17-2025 ambulatory Lela Interiano BLEACH SUPERVISOR Facility:[facility] Start: 04-12-[address] Carlos Bernal MD -[facility] Start: 04-12-2025 End: 04-12-[address] Carlos Bernal MD -[facility] Work Phone: Start: 04-12-2025 End: 04-12-[address] Paola Corona MD Work Phone: -[facility] Start: 02-27-2025 End: 02-27-2025 Patient encounter procedure Lela Interiano BLEACH SUPERVISOR-C -[facility] Start: 02-27-2025 End: 02-27-2025 ambulatory Lela Interiano BLEACH SUPERVISOR Facility:[facility] Start: 02-07-2025 ambulatory Riley Mckeon Facility:[facility] Start: 02-07-2025 Non-patient / Non-visit Dr. Jaren SANTIAGO [facility] Start: 02-03-2025 ambulatory Riley Toureori Facility:[facility] Start: 02-03-2025 Non-patient / Non-visit Dr. Jaren SANTIAGO [facility] Start: 02-03-2025 End: 02-03-[address] Riley Mckeon MD -[facility] Work Phone: Start: 02-03-2025 End: 02-03-2025 ambulatory Riley Toureori Facility:[facility] Start: 01-11-2025 End: 01-11-[address] Riley Mckeon MD -[facility] Work Phone: Start: 01-11-2025 End: 01-11-2025 ambulatory Rileyperla Mckeon Facility:[facility] Start: 12-20-2024 End: 12-20-[address] Paola Corona MD Work Phone: [facility] Work Phone: Start: 12-20-2024 End: 12-20-[address] Paola Corona MD -Laboratory, [facility] Start: 12-20-2024 End: 12-20-2024 ambulatory Paola Corona Facility:[facility] Start: 10-24-2024 End: 10-24-[address] Paola Corona MD -Laboratory, [facility] Start: 10-24-2024 End: 10-24-2024 ambulatory Paola Corona Facility:[facility] Start: 10-21-2024 End: 10-21-2024 Patient encounter procedure [facility] Work Phone: Start: 10-21-2024 End: 10-21-2024 ambulatory Eagle LUKE Facility:[facility] Start: 05-18-2024 End: 05-18-2024 ambulatory Paola Corona Facility:[facility] Start: 02-04-2024 End: 02-04-[address] Paola Corona Work Phone: [facility] Work Phone: Start: 02-04-2024 End: 02-04-[address] Paola Corona Work Phone: [facility]-Laboratory, Specimen Work Phone: Start: 02-04-2024 End: 02-04-[address] Paola Corona Work Phone: [facility] Work Phone: Start: 12-26-2023 End: 12-26-[address] Paola Corona Work Phone: [facility] Work Phone: Start: 12-10-2023 End: 12-10-[address] Paola Corona Work Phone: [facility] Work Phone: Start: 04-20-2023 End: 04-20-[address] Paola Corona Work Phone: [facility] Work Phone: Start: 04-20-2023 End: 04-20-[address] Paola Corona Work Phone: [facility]-Outpatient Breast Imaging Work Phone: Start: 03-30-[address] Paola dent Work Phone: [facility] Work Phone: Start: 03-23-2023 End: 03-23-[address] Paola Corona Work Phone: [facility] Work Phone: Start: 03-16-2023 End: 03-16-2023 ambulatory [facility] Work Phone: Start: 03-16-2023 End: 03-16-2023 Patient encounter procedure [facility]-Laboratory Start: 06-26-2022 End: 06-26-[address] Paola Corona Work Phone: [facility] Work Phone: Start: 06-26-2022 End: 06-26-[address] Paola Corona Work Phone: [facility]-Nuclear Medicine, [facility] Start: 06-13-2022 End: 06-13-[address] Paola Corona Work Phone: [facility] Work Phone: Start: 06-13-2022 End: 06-13-[address] Paola Corona Work Phone: [facility]-Radiology, [place] Start: 06-05-2022 End: 06-05-2022 Emergency department patient visit Dr. Paola Corona Work Phone: [facility]-Emergency Department Start: 04-07-2022 End: 04-07-[address] Paola Corona Work Phone: [facility]-Outpatient Breast Imaging Start: 03-24-2022 End: 03-24-[address] Paola Corona Work Phone: [facility] Start: 03-12-[address] Paola dent Work Phone: [facility] Medical Oncology Start: 02-16-2022 End: 02-16-2022 Emergency [...] End: 02-07-2016 *CBC with Differential [facility] Work Phone: Start: 02-07-2016 End: 02-07-2016 *CMP [...] Author Start: 05-10-2025 Following clinical pathway protocol [facility] Start: 05-10-2025 Catheterization of vein [facility] Start: 05-10-2025 Oxygen therapy [facility] Start: 05-10-2025 Patient discharge [facility] Start: 05-10-2025 Vital signs measurements [facility] Start: 06-05-2022 End: 06-05-2022 [facility] Work Phone: Start: 06-05-2022 Blood culture [facility] Work Phone: Start: 02-18-2017 End: 08-14-2016 *CBC w/Diff - oncology ONLY [facility] Work Phone: Start: 02-18-2017 End: 02-20-2017 *CMP Complete Metabolic Panel *CMP Complete Metabolic Panel [facility] Work Phone: Start: 02-18-2017 End: 02-20-2017 Lactate dehydrogenase (LDH) *LDH -LDH (Lactate Dehydrogenase) [facility] Work Phone: Start: 02-18-2017 End: 02-20-2017 Magnesium *Magnesium [facility] Work Phone: Start: 02-18-2017 End: 02-20-2017 Urate *Uric Acid Blood [facility] Work Phone: Start: 08-14-2016 End: 02-14-2016 *CBC with Differential *CBC with Differential [facility] Work Phone: Start: 08-14-2016 End: 02-14-2016 *CMP Complete Metabolic Panel *CMP Complete Metabolic Panel [facility] Work Phone: Start: 08-14-2016 End: 02-14-2016 Lactate dehydrogenase (LDH) *LDH -LDH (Lactate Dehydrogenase) [facility] Work Phone: Start: 08-14-2016 End: 02-14-2016 Urate *Uric Acid Blood [facility] Work Phone: Start: 02-14-2016 End: 02-07-2016 *CBC with Differential *CBC with Differential [facility] Work Phone: Start: 02-14-2016 End: 02-07-2016 *CMP Complete Metabolic Panel *CMP Complete Metabolic Panel [facility] Work Phone: Start: 02-14-2016 End: 02-07-2016 Lactate dehydrogenase (LDH) *LDH -LDH (Lactate Dehydrogenase) [facility] Work Phone: Start: 02-14-2016 End: 02-07-2016 Magnesium *Magnesium [facility] Work Phone: Start: 02-14-2016 End: 02-07-2016 Urate *Uric Acid Blood [facility] Work Phone: Start: 02-07-2016 End: 02-14-2016 Ct abd&pelv 1+ section/regns CT Abdomen and pelvis; without and with contrast [facility] Work Phone: Start: 02-07-2016 End: [...] 125 *CA125 - Cancer Antigen (CA) 125 [facility] Work Phone: Start: 07-26-2015 End: 07-26-2015 Lactate dehydrogenase (LDH) *LDH -LDH (Lactate Dehydrogenase) [facility] Work Phone: Start: 07-26-2015 End: 07-26-2015 Urate *Uric Acid Blood [facility] Work Phone: Start: 02-15-2015 End: 02-14-2016 *CBC with Differential *CBC with Differential [facility] Work Phone: Start: 11-13-2014 End: 02-08-2015 *CBC with Differential *CBC with Differential [facility] Work Phone: Start: 11-13-2014 End: 02-08-2015 *CMP Complete Metabolic Panel *CMP Complete Metabolic Panel [facility] Work Phone: Start: 11-13-2014 End: 02-08-2015 Cancer antigen 125 *CA125 - Cancer Antigen (CA) 125 [facility] Work Phone: Start: 11-13-2014 End: 02-08-2015 Lactate dehydrogenase (LDH) *LDH -LDH (Lactate Dehydrogenase) [facility] Work Phone: Start: 11-13-2014 End: 02-08-2015 Thyroid stimulating hormone (TSH) *TSH [facility] Work Phone: Start: 11-13-2014 End: 02-08-2015 Urate *Uric Acid Blood [facility] Work Phone: Start: 04-04-2013 End: 04-04-2013 *MISC - Miscellaneous Lab Test #1 *MISC - Miscellaneous Lab Test #1 [facility] Work Phone: Start: 04-04-2013 End: 04-04-2013 Histoplasma capsulatum Ab [Presence] in Serum *HISTOPL Histoplasma Antibody [facility] Work Phone: Start: 04-04-2013 End: 04-04-2013 Mycobacterium tuberculosis tuberculin stimulated gamma interferon [Presence] in Blood *QFTBINC Quantiferon TB Gold [facility] Work Phone: Bacteria identified in Blood by Culture Blood Culture [facility] Work Phone: Bacteria identified in Urine by Culture Urine Culture [facility] Work Phone: Blood culture [facility] Work Phone: CA 125 measurement [facility] Work Phone: CA 125 measurement [facility] Cancer Ag 125 [Units/volume] in Serum or Plasma [facility] CBC W Auto Different ial panel - Blood [facility] Work Phone: CBC W Auto Different ial panel - Blood [facility] Comprehensive metabo lic 2000 panel - Serum or Plasma [facility] CT Abdomen and Pelvi s W contrast IV [facility] Work Phone: CT Abdomen and Pelvi s W contrast IV [facility] CT Chest W contrast IV [facility] Work Phone: CT Chest W contrast IV [facility] CT Chest W contrast IV [facility] Patient Education [facility] Work Phone: Patient referral [facility] Work Phone: Positron emission tomography with computed tomography [facility] Immunizations Immunization Date Immunization Notes Care Provider Fa cility 02-16-2022 tetanus toxoid, redu dee diphtheria toxoid, and acellular pertussis vaccine, adsorbed [facility] 02-14-2021 Covid (Pfizer) [facility] 01-24-2021 Covid (Pfizer) [facility] Payers Date Payer Category Payer Self-pay [id number] 2006 Medicare [id number] 2006 Unknown [id number] Unknown [id number] 2.16.8 [id number] Unknown [id number] 2.16.8 [id number] Unknown [id number] 2.16.8 [id number] Unknown [id number] 2.16.8 [id number] Unknown [id number] 2.16.8 [id number] Unknown [id number] 2.16.8 [id number] Unknown [id number] 2.16.8 [id number] Unknown [id number] 2.16.8 [id number] Unknown [id number] 2.16.8 [id number] Unknown [id number] 2.16.8 [id number] Unknown [id number] 2.16.8 [id number] Unknown [id number] 2.16.8 [id number] Unknown [id number] 2.16.8 [id number] Unknown [id number] 2.16.8 [id number] Unknown [id number] 2.16.8 [id number] Social History Date Type Detail Facility Start: 02-16-2022 End: 12-26-2023 Tobacco smoking status NHIS Unknown if ever smoked [facility] Start: 03-22-2020 Non-smoker [facility] Start: 1940 Sex Assigned At Female [facility] Start: 03-12-2024 End: 05-10-2025 Tobacco smoking status NHIS Never smoked tobacco (finding) [facility] Start: 12-28-2024 Sex Female (finding) [facility] Functional Status Date Assessment Result Facility 05-10-2025 Functional status [facility] Work Phone: Mental Status Date Assessment Result Facility 05-10-2025 Cognitive function Awake;Alert;Appropriat e [facility] Work Phone: Clinical Notes 10-08-2021 to 04-18-2025 Note Date & Type Note Facility 04-18-2025 Radiology Diagnostic study note [facility] Imaging Services [address] [address] CT Chest, Abd, Pel w/Contrast MR#: [id number] Acct: [id number] Name: LUZ CLANCY Rep #: [id number] : 1940 F 85 From: Gregg Barba MD PCP: MARILEE Partida Status: REG CLI Study:CT Chest, Abd, Pel w/Contrast Date of E xam: 04/17/25 Exam# [id number] Ordering Dr: Scot Bernal MD PROCEDURE: CT [...] 3. Other findings as noted. Reading Location: [id number] CC: MARILEE Interiano; Dr. Carlos Bernal MD ~ [place]: Signed [facility] Work Phone: 04-12-2025 Evaluation note Diagnosis Onset [...] Uncontrolled hypertension acute May 16, 2025 11:32am [facility] Work Phone: 1(397) 325-748307-02-2025 Progress [facility] [address] [place] [address] OFFICE VISIT Date of Service: 04/12/25 1455 MR#: [id number] Acct: [id number] Name: LUZ CLANCY Rep #: [id number] : 1940 From: Carlos Bernal MD Age/Sex: 85/F Location: [facility] Status: Signed HPI Subjective Date of [...] is on observation, comes in for f/u. [facility] Medical History Tachycardia Diverticulosis Uncontrolled hypertension Cancer [...] Date (if applicable) CC: MARILEE Interiano ~ [facility]07-02-2025 Progress note Author Carlos Bernal [facility] Note Date/Time April 12, 2025 3:23p m [facility] [place] [address] OFFICE VISIT Date of Service: 04/12/25 1455 MR#: [id number] Acct: [id number] Name: LUZ CLANCY Rep #: [id number] : 1940 From: Carlos Bernal MD Age/Sex: 85/F Location: [facility] Status: Signed HPI Subjective Date of [...] is on observation, comes in for f/u. [facility] Medical History Tachycardia Diverticulosis Uncontrolled hypertension Cancer [...] MD Cosigner Signature: Date (if applicable) CC: BLEACH SUPERVISOR-C Lela Interiano ~ [facility] Work Phone: 1(205) 163-703004-02-2025 Evaluation note* Diagnosis Onset Date Resolution Status Admit Date Tachycardia acute January 11 1:25pm History of endometrial cancer acute April 12, 2025 2:42pm Lung nodule, multiple chronic Apr 2:42pm Uterine cancer chronic April 12, 2025 2:42pm [facility] Work Phone: 1(687) 271-763304-02-2025 Evaluation note* Diagnosis Onset Date Resolution Status Admit Date Tachycardia acute January 11 1:25pm History of endometrial cancer acute April 12, 2025 2:42pm Lung nodule, multiple chronic Apr 2:42pm Uterine cancer chronic April 12, 2025 2:42pm Pulmonary nodule acute April 3:45pm [facility] Work Phone: 1([phone]) 146-299904-02-2025 Evaluation note* Diagnosis Onset Date Resolution Status [...] Uterine cancer chronic April 24, 2025 3:43pm [facility] Work Phone: 1(820) 547-374301-10-2025 Evaluation note* Diagnosis Onset Date Resolution Status Admit Date Strain of muscle at thorax level resolved October 21 6:19am [facility] Work Phone: 1(188) 135-235512-28-2021 NoteHNO ID: [id number] Author: Seble Vann APRN.[employer] Service: ? Author Type: Nurse Practitioner Type: [...] history is provided by the patient. No speech language pathologist travel was used. Illness The current episode started [...] Laterality Date - COLONOSCOP W/ OR W/O [facility] SPEC 06/17/2006 Colonoscopy - COLONOSCOP W/ OR W/O [facility] SPEC 07/15/11 - COLONOSCOP W/ OR W/O [facility] SPEC 07/17/16 Colonoscopy (needs MAC next time) [...] wall: No tenderness. Abd (more content not included)...[facility] Work Phone: Evaluation note* Diagnosis Onset Date Resolution Status History of endometrial cancer acute Lung nodule, multiple chroni c Uterine cancer chronic [facility] Work Phone: Evaluation note* Diagnosis Onset Date Resolution Status Acute sinusitis acute Cough acute PND (post-nasal drip) acute Increased urinary frequency acute [facility] Work Phone: Reason for referral (narrative)No reason for referral information [facility] Work Phone: Summary Purpose Family History [...] February 16, 2022 12 :59pm Power of Mold Builder Yes February 16, 2022 12:59pm Advance Directive Response Recorded Date/ Time Name of Medical Power of Mold Builder Eva Mccallum February 16, 2022 12:59pm Advance Directives No August 3:25pm Living Will Yes February 16, 2022 12 :59pm Power of Mold Builder Yes February 16, 2022 12:59pm Advance Directive Response Recorded Date/ Time Advance Directives No November 7:49am Living Will Yes November 024 7:49am Power of Mold Builder Yes December 10, 2023 7:49am Advance Directive Response Recorded Date/ Time Advance Directives No November 7:49am Advance Directive Response Recorded Date/ Time Living Will No August 23 013 3:25pm Do you have a Healthcare Power of Mold Builder? No August 23, 2013 3:25pm Advance Directives [...] section and content) DATE CREATED AUTHOR 12/31/2021 [facility] DATE CREATED AUTHOR CELESTINA TAYLOR 05/18/2025 [facility] Goals (unrecognized section and content) Goals [...] 21, 2024 End: October 21, 2024 Dr. Paoal Corona MD Referring Provider Active Start: October [...] Active Member Role/Relationship Status Dates Lela Interiano BLEACH SUPERVISOR, BLEACH SUPERVISOR-C Primary Care Provider Active Team Status: Inactive [...] Inactive Member Role/Relationship Status Dates Lelalita Interiano BLEACH SUPERVISOR, BLEACH SUPERVISOR-C Primary Care Provider Active Start: February 27, 2025 End: February 27, 2025 Lelalita Interiano BLEACH SUPERVISOR, BLEACH SUPERVISOR-C Attending Provider Active S tart: February 27, 2025 End: February 27, 2025 Lelalita Interiano BLEACH SUPERVISOR, BLEACH SUPERVISOR-C Referring Provider Active S tart: February 27, 2025 End: February 27, 2025 Team Status: Inactive Member Role/Relationship Status Dates Dr. Carlos Bernal MD Attending Provider Active S tart: April 12, 2025 End: April 12, 2025 Lelalita Interiano BLEACH SUPERVISOR, BLEACH SUPERVISOR-C Primary Care Provider Active Start: April 12, 2025 End: April 12, 2025 Lela Interiano BLEACH SUPERVISOR, BLEACH SUPERVISOR-C Referring Provider Active S tart: April 12, [...] Inactive Member Role/Relationship Status Dates Lela Interiano BLEACH SUPERVISOR, BLEACH SUPERVISOR-C Primary Care Provider Active Start: February 27, 2025 End: February 27, 2025 Lela Interiano BLEACH SUPERVISOR, BLEACH SUPERVISOR-C Attending Provider Active S tart: February 27, 2025 End: February 27, 2025 Lela Interiano BLEACH SUPERVISOR, BLEACH SUPERVISOR-C Referring Provider Active S tart: February 27, 2025 End: February 27, 2025 Team Status: Inactive Member Role/Relationship Status Dates Dr. Carlos Bernal MD Attending Provider Active S tart: April 12, 2025 End: April 12, 2025 Lela Interiano BLEACH SUPERVISOR, BLEACH SUPERVISOR-C Primary Care Provider Active Start: April 12, 2025 End: April 12, 2025 Lela Interiano BLEACH SUPERVISOR, BLEACH SUPERVISOR-C Referring Provider Active S tart: April 12, [...] Inactive Member Role/Relationship Status Dates Lela Interiano BLEACH SUPERVISOR, BLEACH SUPERVISOR-C Primary Care Provider Active Start: April 17, 2025 End: April 17, 2025 Dr. Carlos Bernal MD Attending Provider Active S tart: April 17, 2025 End: April 17, 2025 Dr. Carlos Bernal MD Referring Provider Active S tart: April 17, 2025 End: April 17, 2025 Team Status: Inactive Member Role/Relationship Status Dates Lela Interiano BLEACH SUPERVISOR, BLEACH SUPERVISOR-C Primary Care Provider Active Start: April 24, 2025 End: April 24, 2025 Lela Interiano BLEACH SUPERVISOR, BLEACH SUPERVISOR-C Referring Provider Active S tart: April 24, [...] Inactive Member Role/Relationship Status Dates Lela Interiano BLEACH SUPERVISOR, BLEACH SUPERVISOR-C Primary Care Provider Active Start: February 27, 2025 End: February 27, 2025 Lela Interiano BLEACH SUPERVISOR, BLEACH SUPERVISOR-C Attending Provider Active S tart: February 27, 2025 End: February 27, 2025 Lela Interiano BLEACH SUPERVISOR, BLEACH SUPERVISOR-C Referring Provider Active S tart: February 27, 2025 End: February 27, 2025 Team Status: Inactive Member Role/Relationship Status Dates Dr. Carlos Bernal MD Attending Provider Active S tart: April 12, 2025 End: April 12, 2025 Lela Interiano BLEACH SUPERVISOR, BLEACH SUPERVISOR-C Primary Care Provider Active Start: April 12, 2025 End: April 12, 2025 Lela Interiano BLEACH SUPERVISOR, BLEACH SUPERVISOR-C Referring Provider Active S tart: April 12, 2025 End: April 12, 2025 Team Status: Inactive Member Role/Relationship Status Dates Lela Interiano BLEACH SUPERVISOR, BLEACH SUPERVISOR-C Primary Care Provider Active Start: April 17, 2025 End: April 17, 2025 Dr. Carlos Bernal MD Attending Provider Active S tart: April 17, 2025 End: April 17, 2025 Dr. Carlos Bernal MD Referring Provider Active S tart: April 17, 2025 End: April 17, 2025 Team Status: Inactive Member Role/Relationship Status Dates Lela Interiano BLEACH SUPERVISOR, BLEACH SUPERVISOR-C Primary Care Provider Active Start: April 24, 2025 End: April 24, 2025 Lela Interiano NP, BLEACH SUPERVISOR-C Referring Provider Active S tart: April 24, [...] Member Role/Relationship Status Dates Lela Interiano NP, BLEACH SUPERVISOR-C Primary Care Provider Active Start: May 10, [...] End: May 16, 2025 Laney Ferreira NP, BLEACH SUPERVISOR-C Attending Provider Active Start: May 16, 2025 End: May 16, 2025 Lela Interiano NP, BLEACH SUPERVISOR-C Primary Care Provider Active Start: May 16, [...] BE BASED ON THE PRIMARY CLINICAL RECORDS. [employer] [facility]. provides no warranty or guarantee of the accuracy or completeness of information in this document.
--- OUTSIDE RECORDS SUMMARY | 2025-05-18 22:26 | XMS RPT_ITS | CCD ---
Author Organization [facility] CliniSyhi Care Team Providers Care Marine Scientist Name Role Phone Carlos Bernal MD Unavailable [...] Mike SANTIAGO, Dr. Lin Other Provider Jaydon [employer], Lela Primary Care Provider Jaydon [employer], Lela Attending Provider Jaydon [employer], Lela Referring Provider Dolores SANTIAGO, Dr. Gonzalez Attending Provider Chloe SANTIAGO, Dr. Paola Lebron Primary Care Provider Chloe SANTIAGO, Dr. Paola Lebron Referring Provider Dolores SANTIAGO, Dr. Gonzalez Referring Provider Chloe SANTIAGO, Dr. Paola Lebron Primary Care Provider Mike SANTIAGO, Dr. Lin Attending Provider Chloe SANTIAGO, Dr. Paola Lebron Referring Provider Christian SANTIAGO, Dr. Torres Other Provider Unavailabl e Jhon [employer], Laney Attending Provider Jolliff, Paola S Referring Unavailable Jolliff, Paola S Attending Unavailable Jolliff, Paola S Primary Care Unavailable Jolliff, Paola S Primary Care Unavailable Jolliff, Paola S Referring Unavailable Jolliff, Paola S Attending Unavailable Jolliff, Paola S Primary Care Unavailable Jolliff, Paola S Referring Unavailable Jolliff, Paola S Attending Unavailable Mike, Riley Referring Unavailable Mike, [place] Attending Unavailable Jolliff, Paola S Primary Care Unavailable Carlos Bernal Attending Unavailable Jaydon [employer], Lela Primary Care Unavailable Jaydon [employer], Lela Referring Unavailable Mike, Riley Attending Unavailable Jolliff, Paola S Primary Care Unavailable Mike, [place] Referring Unavailable Mike, Riley Attending Unavailable Mike, [place] Consulting Unavailable Jolliff, Paola S Primary Care Unavailable Laney Ferreira NP Attending Unavailable Jaydon [employer], Lela Primary Care Unavailable Jolliff, Paola S Referring Unavailable Eagle Eubanks Attending Unavailable Jolliff, Paola S Referring Unavailable Jolliff, Paola S Primary Care Unavailable Mike, Riley Attending Unavailable Jolliff, Paola S Primary Care Unavailable Jolliff, Paola S Referring Unavailable Jaydon [employer], Lela Referring Unavailable Jaydon [employer], Lela Primary Care Unavailable Carlos Bernal Attending Unavailable Jaydon [employer], Lela Referring Unavailable Jaydon [employer], Lela Attending Unavailable Jaydon [employer], Lela Primary Care Unavailable Carlos Bernal Attending Unavailable Jaydon [employer], Lela Primary Care Unavailable Brian Gonzales Unavailable Carlos Bernal Referring Unavailable Carlos Bernal Attending Unavailable Paola Corona S Primary Care Unavailable Paola Corona S Referring Unavailable Jaydon [employer], Lela Primary Care Unavailable Carlos Bernal Referring Unavailable Carlos Bernal Attending Unavailable Allergies Allergy Classification Reported Allergen(s) Allergy Type Date of Onset Reaction(s) Facility (15 sources) doxycycline; Translations: [doxycycline] drug allergy 2 Nausea [facility] Work Phone: (1 source) erythromycin drug allergy [facility] Work Phone: (13 sources) Erythromycin Drug Allergy 2 [facility] (14 sources) Penicillins; Translations: [Penicillins] Propensity to adverse reactions 2 [facility] (4 sources) Clindamycin Drug Allergy 5 [facility] (1 source) Clindamycin Drug Allergy 5 [facility] (1 source) Erythromycin Drug Allergy 5 [facility] Repository Medications Current Medications Medication Drug Class(es) [...] mouth three times daily CALCIUM CARBONATE-VITAMIN D [id number] Selina Schmitz LPN Calcium Carbonate/Vitamin D tablet [...] as directed as needed CALCIUM CARBONATE ANTACID [id number] Selina Ainsley CARE TEAM COORDINATOR SCHEDULER cephalexin 500 mg oral capsule (6 sources) [...] One tablet by mouth daily MULTIPLE VITAMIN 32189406483 Selina Lealedward RAMIREZ Nystatin 100,000 unit/mL suspension [...] hours as needed for nausea PROMETHAZINE HCL 07054916801 Selina Ainsley RAMIREZ psyllium 3400 mg powder [...] 1/2 tsp with water once daily PSYLLIUM [id number] Selina Ainsley RAMIREZ vitamin b6 100 mg oral table t (15 sources) Start: 08-02-2013 End: 02-18-2017 Pyridoxine Hcl (Vitamin B-6) 100 MG tablet Discontinued 50 mg PO TWICE A DAY August 02, 2013 12:00am February 18, 2017 1:35pm End: 11-21-2014 take 1 tablet by mouth twice daily VITAMIN B-6 50 MG TABS One tablet by mouth twice daily PYRIDOXINE HCL 10188932563 Selina Ainsley RAMIREZ Problems Active Problems Problem [...] Facility Cardiology Visit Reporton Cardiology Visit Report [facility] 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 Is patient in pain?: No [...] the past year?: No PFSH Medical History (Reviewed 05/16/25 @ 11:47 by Laney Ferreira [employer], [employer]) Tachycardia Diverticulosis Uncontrolled hypertension Cancer Gastric reflux Pulmonary nodule Surgical History (Reviewed 05/16/25 @ 11:47 by Laney Ferreira [employer], [employer]) History of tubal ligation History of hysterectomy Family History Mother Colon cancer Breast cancer Daughter Thyroid disorder Social History (Reviewed 05/16/25 @ 11:47 by Laney Ferreira [employer], [employer]) Smoking Status: Never smoker alcohol intake: never [...] for fatigue (more content not included)... Normal [facility] Absolute lymphocyte countOrd ered By: Brian Gonzales on 05-10-2025 Lymphocytes Auto (Unsp spec) [#/Vol] 0.79 10*3/uL Low 0.83-4.51 [facility] Absolute neutrophil countOrd ered By: Brian Gonzales on 05-10-2025 Neutrophils (Bld) [#/Vol] 4.5 10*3/uL 2.0-7.7 [facility] Activated partial thrombopla stin time (aPTT) in platelet poor plasma by coagulation aOrdered By: Brian Gonzales on 05-10-2025 aPTT Coag (PPP) [Time] 25.6 s 24.1-36.2 [facility] Automated lymphocyte count a s percentage of total leukocytesOrdered By: Brian Gonzales on 05-10-2025 Lymphocytes/100 WBC Auto (Unsp spec) 12.9 % Low 19-41 [facility] Basophil percentageOrdered B y: Brian Gonzales on 05-10-2025 Basophils/100 WBC (Bld) 1.0 % 0-1 [facility] Biopsy/Inj or Needle Placeme nton 05-10-2025 Biopsy/Inj or Needle Placement [facility] Imaging Services [address] [place], [place] [address] Biopsy/Inj or Needle Placement MR#: [id number] Acct: [id number] Name: LUZ CLANCY Rep #: [id number] : 1940 F 85 From: Brian Zambrano PCP: MARILEE Partida Status: REG CLI Study: Biopsy/Inj or Needle Placement Date of Exam: 0 05/10/25 Exam# [id number] Ordering Dr: Carlos Bernal MD EXAM: CT-guided [...] pulmonary mass. Pathology results pending. Reading Location: [place] [address] CC: MARILEE Interiano; Dr. Carlos Bernal MD Instructional Technology Specialist: Signed Normal [facility] CBC W/Diff, Automatedon 07-3 0-2024 Absolute Lymph 0.79 X10 3/uL Low 0.83-4.51 [facility] Comment on above: Performed By: #### L 100.0100, L300.3900, L300.4310 ####[facility] [address] [place], [address] Absolute Neut 4.5 X10 3/uL Normal 2.0-7.7 [facility] Comment on above: Performed By: #### L 100.0100, L300.3900, L300.4310 ####[facility] [address] [place], [address] Basophils/100 WBC (Bld) 1.0 % Normal 0-1 [facility] Comment on above: Performed By: #### L 100.0100, L300.3900, L300.4310 ####[facility] [address] [place], [address] Eosinophils/100 WBC (Bld) 1.5 % Normal 0-5 [facility] Comment on above: Performed By: #### L 100.0100, L300.3900, L300.4310 ####[facility] [address] [place], [address] Erythrocyte distribution width (RBC) [Ratio] 13.2 % Normal 11.6-14.6 [facility] Comment on above: Performed By: #### L 100.0100, L300.3900, L300.4310 ####[facility] [address] [place], [address] Hematocrit (Bld) [Volume fraction] 34.7 % Low 37-47 [facility] Comment on above: Performed By: #### L 100.0100, L300.3900, L300.4310 ####[facility] [address] [place], [address] Hemoglobin (Bld) [Mass/Vol] 11.0 g/dL Low 12.0-15.0 [facility] Comment on above: Performed By: #### L 100.0100, L300.3900, L300.4310 ####[facility] [address] [place], [address] IG% 0.500 Normal 0.0-0.9 [facility] Comment on above: Result Comment: IG% - Immature Granulocytes (promyelocytes, myelocytes and metamyelocytes) > 1% indicates that a LEFT SHIFT is Present. Performed By: #### L 100.0100, L300.3900, L300.4310 ####[facility] [address] [place], [address] Lymphocytes/100 WBC (Bld) 12.9 % Low 19-41 [facility] Comment on above: Performed By: #### L 100.0100, L300.3900, L300.4310 ####[facility] [address] [place], [address] MCH (RBC) [Entitic mass] 27.8 pg Normal 27.0-32.0 [facility] Comment on above: Performed By: #### L 100.0100, L300.3900, L300.4310 ####[facility] [address] [place], [address] MCHC (RBC) [Mass/Vol] 31.7 g/dL Low 32-36 [facility] Comment on above: Performed By: #### L 100.0100, L300.3900, L300.4310 ####[facility] [address] [place], [address] MCV (RBC) [Entitic vol] 87.8 fL Normal 81-99 [facility] Comment on above: Performed By: #### L 100.0100, L300.3900, L300.4310 ####[facility] [address] [place], [address] Monocytes/100 WBC (Bld) 11.6 % High 0-10 [facility] Comment on above: Performed By: #### L 100.0100, L300.3900, L300.4310 ####[facility] [address] [place], [address] Neutrophils/100 WBC (Bld) 72.5 % High 47-70 [facility] Comment on above: Performed By: #### L 100.0100, L300.3900, L300.4310 ####[facility] [address] [place], [address] Nucleated RBC (Bld) [#/Vol] 0 10*3/uL Normal 0-5 [facility] Comment on above: Performed By: #### L 100.0100, L300.3900, L300.4310 ####[facility] [address] [place], [address] Platelet mean volume (Bld) [Entitic vol] 10.7 fL Normal 6.2-12.0 [facility] Comment on above: Performed By: #### L 100.0100, L300.3900, L300.4310 ####[facility] [address] [place], [address] Platelets (Bld) [#/Vol] 347 10*3/uL Normal 150-450 [facility] Comment on above: Performed By: #### L 100.0100, L300.3900, L300.4310 ####[facility] [address] [place], [address] RBC (Bld) [#/Vol] 3.95 10*6/uL Low 4.2-5.4 [facility] Comment on above: Performed By: #### L 100.0100, L300.3900, L300.4310 ####[facility] [address] [place], [address] RDW SD 42.8 fl Normal 35.1-43.9 [facility] Comment on above: Performed By: #### L 100.0100, L300.3900, L300.4310 ####[facility] [address] [place], [address] WBC (Bld) [#/Vol] 6.1 10*3/uL Normal 4.4-11.0 [facility] Comment on above: Performed By: #### L 100.0100, L300.3900, L300.4310 ####[facility] [address] [place], [address] Chest Insp/Exp 2 Viewon 04-13 Chest Insp/Exp 2 View [facility] Imaging Services [address] [place] [address] Chest Insp/Exp 2 View MR#: [id number] Acct: [id number] Name: LUZ CLANCY Rep #: [id number] : 1940 F 85 From: Brian Zambrano PCP: MARILEE Partida Status: REG CLI Study: Chest Insp/Exp 2 View Date of Exam: 05/10/25 Exam# [id number] Ordering Dr: Brian Gonzales MD EXAM: Two-view [...] stable, without evidence of cardiomegaly. Reading Location: [place] [address] CC: [employer] Lela Interiano; Dr. Brian Gonzales MD Instructional Technology Specialist: Signed Normal [facility] Chest Insp/Exp 2 View [facility] [address] [place], [place] [address] Chest Insp/Exp 2 View MR#: [id number] Acct: [id number] Name: LUZ CLANCY Rep #: [id number] : 1940 F 85 From: Brian Zambrano PCP: MARILEE Partida Status: REG CLI Study: Chest Insp/Exp 2 View Date of Exam: 05/10/25 Exam# [id number] Ordering Dr: Brian Gonzales MD EXAM: AP [...] unremarkable; no evidence of cardiomegaly. Reading Location: [place] [address] CC: SOURAV-Lilian Interiano; Dr. Brian Gonzales MD Instructional Technology Specialist: Signed Normal [facility] Eosinophil percentageOrdered By: Brian Gonzales on 05-10-2025 Eosinophils/100 WBC (Bld) 1.5 % 0-5 [facility] Erythrocyte distribution wid th ratioOrdered By: Brian Gonzales on 05-10-2025 Erythrocyte distribution width (RBC) [Ratio] 13.2 % 11.6-14.6 [facility] Erythrocyte distribution wid th standard deviationOrdered By: Brian Gonzales on 05-10-2025 Erythrocyte distribution width (RBC) [Ratio] 42.8 fl 35.1-43.9 [facility] Hematocrit Auto (Bld) [Volum e fraction]Ordered By: Brian Gonzales on 05-10-2025 Hematocrit (Bld) [Volume fraction] 34.7 % Low 37-47 [facility] Hemoglobin measurementOrdere d By: Brian Gonzales on 05-10-2025 Hemoglobin (Bld) [Mass/Vol] 11.0 g/dL Low 12.0-15.0 [facility] Immature granulocytes/100 WB C Auto (Bld)Ordered By: Brian Gonzales on 05-10-2025 Immature granulocytes/100 WBC (Bld) 0.500 % 0.0-0.9 [facility] Comment on above: IG% - Immature Granu locytes (promyelocytes, myelocytes and metamyelocytes) > 1% indicates that a LEFT SHIFT is Present. Immunohistochemical Stainson 05-10-2025 Immunohistochemical Stains Patient Age/Sex Location Account Attending Physician LUZ CLANCY 85/F CT [id number] Dr. Carlos Bernal MD Specimen: [id number] Received: 05/10/25 Status: RONIT Antonieta Num: [id number] Spec Type: LUNG BX Subm Dr: Dr. [...] developed and their performance characteristics determined by [facility]. They may not have been cleared [...] tissue cores. Entirely submitted in 2 cassettes. [place] 05/10/2025 [facility]:[id number] [id number] Patient Age/Sex Location Account Attending Physician LUZ CLANCY 85/F CT [id number] Dr. Carlos Bernal MD Signed (signature on file) Dr. Erum Bonilla MD 05/15/[address] [facility] Comment on above: Performed By: #### [facility] ####[facility] [address] [place], [address] International normalized rat io (INR) calculationOrdered By: Brian Gonzales on 05-10-2025 INR Coag (Bld) [Relative time] 1.0 {INR} [facility] MCV (mean corpuscular volume ) determinationOrdered By: Brian Gonzales on 05-10-2025 MCV (RBC) [Entitic vol] 87.8 fL 81-99 [facility] Mean corpuscular hemoglobin (MCH) determinationOrdered By: Brian Gonzales on 05-10-2025 MCH (RBC) [Entitic mass] 27.8 pg 27.0-32.0 [facility] Mean corpuscular hemoglobin concentration (MCHC) determinationOrdered By: Brian Gonzales on 05-10-2025 MCHC (RBC) [Mass/Vol] 31.7 g/dL Low 32-36 [facility] Mean platelet volume determi nationOrdered By: Brian Gonzales on 05-10-2025 Platelet mean volume (Bld) [Entitic vol] 10.7 fL 6.2-12.0 [facility] Monocyte percentageOrdered B y: Brian Gonzales on 05-10-2025 Monocytes/100 WBC (Bld) 11.6 % High 0-10 [facility] Neutrophil percentageOrdered By: Brian Gonzales on 05-10-2025 Neutrophils/100 WBC (Bld) 72.5 % High 47-70 [facility] Nucleated red blood cell per centageOrdered By: Brian Gonzales on 05-10-2025 Nucleated RBC/100 WBC (Bld) [Ratio] 0 % 0-5 [facility] Partial Thromboplast Timeon 05-10-2025 aPTT Coag (Bld) [Time] 25.6 s Normal 24.1-36.2 [facility] Comment on above: Performed By: #### L 100.0100, L300.3900, L300.4310 ####[facility] [address] [place], [place], [id number] Platelet countOrdered By: Brock Gonzales on 05-10-2025 Platelets (Bld) [#/Vol] 347 10*3/uL 150-450 [facility] Prothrombin Time w/INRon INR Coag (PPP) [Relative time] 1.0 {INR} Normal [facility] Comment on above: Performed By: #### L 100.0100, L300.3900, L300.4310 ####[facility] [address] [place], [address] PT Coag (PPP) [Time] 13.0 s Normal 11.7-14.9 [facility] Comment on above: Performed By: #### L 100.0100, L300.3900, L300.4310 ####[facility] [address] [place], [place], [address] Prothrombin timeOrdered By: Brian Gonzales on 05-10-2025 PT Coag (PPP) [Time] 13.0 s 11.7-14.9 [facility] RBC Auto (Bld) [#/Vol]Ordere d By: Brian Gonzales on 05-10-2025 RBC (Bld) [#/Vol] 3.95 10*6/uL Low 4.2-5.4 [facility] White blood cell (WBC) count Ordered By: Brian Gonzales on 05-10-2025 WBC (Bld) [#/Vol] 6.1 10*3/uL 4.4-11.0 [facility] PET/CT Tumor Base -Thigh Ini ton 05-02-2025 PET/CT Tumor Base -Thigh Init [facility] Imaging Services [address] [address] PET/CT Tumor Base -Thigh Init MR#: [id number] Acct: [id number] Name: LUZ CLANCY Rep #: [id number] : 1940 F 85 From: Maria A Clay nd, MD PCP: Dr. Paola Corona MD Status: [facility] RCR Study: PET/CT Tumor Base -Thigh Init Date of Exam: Exam# [id number] Ordering Dr: Carlos Bernal MD EXAM: PET/CT [...] PET will be reported separately. Reading Location: [id number] CC: Dr. Paola Corona MD; Dr. Carlos Bernal MD Instructional Technology Specialist: Signed Normal [facility] Oncology Visit Reporton 04-11 Oncology Visit Report [facility] [address] [place] [address] OFFICE VISIT Date of Service: 04/24/25 1552 MR#: [id number] Acct: [id number] Name: LUZ CLANCY Rep #: [id number] : 1940 From: Carlos Bernal MD Age/Sex: 85/F Location: [facility] [place] Status: Signed HPI Subjective Date of [...] up. Denies fever, weight loss, night sweats. [facility] Medical History Tachycardia Diverticulosis Uncontrolled hypertension Cancer [...] MD Cosign Signature: Date (if applicable) CC: [employer] Lela Interiano Normal [facility] CT Chest, Abd, Pel w/Contras ton 04-17-2025 CT Chest, Abd, Pel w/Contrast [facility] Imaging Services [address] [place] [address] [address] Chest, Abd, Pel w/Contrast MR#: [id number] Acct: [id number] Name: LUZ CLANCY Rep #: [id number] : 1940 F 85 From: Erik Barba MD PCP: MARILEE Partida Status: REG CLI Study: CT Chest, Abd, Pel w/Contrast Date of Exam: Exam# [id number] Ordering Dr: Carlos Bernal MD PROCEDURE: CT [...] 3. Other findings as noted. Reading Location: [id number] CC: MARILEE Interiano; Dr. Carlos Bernal MD Instructional Technology Specialist: Signed Normal [facility] Cancer Antigen 125on 025 CA 125 121.0 U/mL High 0.0-38.1 [facility] Comment on above: Result Comment: [facility] Electrochemiluminescence Immunoassay (ECLIA) Values obtained with different assay methods or kits cannot be used interchangeably. Results cannot be interpreted as absolute evidence of the presence or absence of malignant disease. Performed at: [facility] [address] [place], [place] [id number] [employer] Grinder Feeder: Guero Smyth PhD, Phone: [phone] Performed By: #### L 3100.5000 #### [facility] [address] [place] [address], [id number] Cancer antigen 125 (CA-125) measurementOrdered By: Carlos Bernal on 04-12-2025 Cancer antigen 125 (CA-125) measurement 121.0 U/mL High 0.0-38.1 [facility] Comment on above: [facility] El ectrochemiluminescence Immunoassay(ECLIA)Values obtained with different assay methods or kits cannotbe used interchangeably. Results cannot be interpreted asabsolute evidence of the presence or absence of malignantdisease.Performed at: [facility] [place], [place] [id number] Director: Guero Smyth PhD, Phone: [phone] Oncology Visit Reporton Oncology Visit Report [facility] [place] [facility] [address] [place] [address] OFFICE VISIT Date of Service: 04/12/25 1455 MR#: [id number] Acct: [id number] Name: LUZ CLANCY Rep #: [id number] : 1940 From: Carlos Bernal MD Age/Sex: 85/F Location: [facility] [place] Status: Signed HPI Subjective Date of [...] is on observation, comes in for f/u. [facility] Medical History Tachycardia Diverticulosis Uncontrolled hypertension Cancer [...] of uterus, (more content not included)... Normal [facility] Cancer Antigen 125on 025 CA 125 83.5 U/mL High 0.0-38.1 [facility] Comment on above: Result Comment: [facility] Electrochemiluminescence Immunoassay (ECLIA) Values obtained with different assay methods or kits cannot be used interchangeably. Results cannot be interpreted as absolute evidence of the presence or absence of malignant disease. Performed at: [facility] [address] [id number] [employer] Gr[employer] Feeder: Guero Smyth PhD, Phone: [phone] Performed By: #### L 100.0100, L3100.5000, L504.2610, L500.4050 ####[facility] [address] [place], [address] Absolute lymphocyte countOrd ered By: [facility] on 03-22-2025 Lymphocytes Auto (Unsp spec) [#/Vol] 0.82 10*3/uL Low 0.83-4.51 [facility] Absolute neutrophil countOrd ered By: [facility] on 03-22-2025 Neutrophils (Bld) [#/Vol] 5.1 10*3/uL 2.0-7.7 [facility] Anion gap in Serum or Plasma Ordered By: [facility] on 03-22-2025 Anion gap [Moles/Vol] 12 mmol/L 5-15 [facility] Automated lymphocyte count a s percentage of total leukocytesOrdered By: [facility] on 03-[facility]25 Lymphocytes/100 WBC Auto (Unsp spec) 12.6 % Low 19-41 [facility] BUN/creatinine ratioOrdered By: [facility] on 03-22-2025 Urea nitrogen/Creatinine [Mass ratio] 19.3 mg/mg 10-20 [facility] Basophil percentageOrdered B y: [facility] on 03-22-2025 Basophils/100 WBC (Bld) 0.9 % 0-1 [facility] Bilirubin, totalOrdered By: [facility] on 03-22-2025 Bilirubin [Mass/Vol] 0.24 mg/dL 0.00-1.30 [facility] CBC W/Diff, Automatedon 03-12 Absolute Lymph 0.82 X10 3/uL Low 0.83-4.51 [facility] Comment on above: Performed By: #### L 100.0100, L3100.5000, L504.2610, L500.4050 ####[facility] [address] [place], [address] Absolute Neut 5.1 X10 3/uL Normal 2.0-7.7 [facility] Comment on above: Performed By: #### L 100.0100, L3100.5000, L504.2610, L500.4050 ####[facility] [address] [place], [address] Basophils/100 WBC (Bld) 0.9 % Normal 0-1 [facility] Comment on above: Performed By: #### L 100.0100, L3100.5000, L504.2610, L500.4050 ####[facility] [address] [place], [address] Eosinophils/100 WBC (Bld) 1.4 % Normal 0-5 [facility] Comment on above: Performed By: #### L 100.0100, L3100.5000, L504.2610, L500.4050 ####[facility] [address] [place], [address] Erythrocyte distribution width (RBC) [Ratio] 12.3 % Normal 11.6-14.6 [facility] Comment on above: Performed By: #### L 100.0100, L3100.5000, L504.2610, L500.4050 ####[facility] [address] [place], [address] Hematocrit (Bld) [Volume fraction] 32.9 % Low 37-47 [facility] Comment on above: Performed By: #### L 100.0100, L3100.5000, L504.2610, L500.4050 ####[facility] [address] [place], [address] Hemoglobin (Bld) [Mass/Vol] 10.4 g/dL Low 12.0-15.0 [facility] Comment on above: Performed By: #### L 100.0100, L3100.5000, L504.2610, L500.4050 ####[facility] [address] [place], [address] IG% 0.300 Normal 0.0-0.9 [facility] Comment on above: Result Comment: IG% - Immature Granulocytes (promyelocytes, myelocytes and metamyelocytes) > 1% indicates that a LEFT SHIFT is Present. Performed By: #### L 100.0100, L3100.5000, L504.2610, L500.4050 ####[facility] [address] [place], [address] Lymphocytes/100 WBC (Bld) 12.6 % Low 19-41 [facility] Comment on above: Performed By: #### L 100.0100, L3100.5000, L504.2610, L500.4050 ####[facility] [address] [place], [address] MCH (RBC) [Entitic mass] 28.1 pg Normal 27.0-32.0 [facility] Comment on above: Performed By: #### L 100.0100, L3100.5000, L504.2610, L500.4050 ####[facility] [address] [place], [address] MCHC (RBC) [Mass/Vol] 31.6 g/dL Low 32-36 [facility] Comment on above: Performed By: #### L 100.0100, L3100.5000, L504.2610, L500.4050 ####[facility] [address] [place], [address] MCV (RBC) [Entitic vol] 88.9 fL Normal 81-99 [facility] Comment on above: Performed By: #### L 100.0100, L3100.5000, L504.2610, L500.4050 ####[facility] [address] [place], [address] Monocytes/100 WBC (Bld) 7.4 % Normal 0-10 [facility] Comment on above: Performed By: #### L 100.0100, L3100.5000, L504.2610, L500.4050 ####[facility] [address] [place], [address] Neutrophils/100 WBC (Bld) 77.4 % High 47-70 [facility] Comment on above: Performed By: #### L 100.0100, L3100.5000, L504.2610, L500.4050 ####[facility] [address] [place], [address] Nucleated RBC (Bld) [#/Vol] 0 10*3/uL Normal 0-5 [facility] Comment on above: Performed By: #### L 100.0100, L3100.5000, L504.2610, L500.4050 ####[facility] [address] [place], [address] Platelet mean volume (Bld) [Entitic vol] 10.6 fL Normal 6.2-12.0 [facility] Comment on above: Performed By: #### L 100.0100, L3100.5000, L504.2610, L500.4050 ####[facility] [address] [place], [address] Platelets (Bld) [#/Vol] 314 10*3/uL Normal 150-450 [facility] Comment on above: Performed By: #### L 100.0100, L3100.5000, L504.2610, L500.4050 ####[facility] [address] [place], [address] RBC (Bld) [#/Vol] 3.70 10*6/uL Low 4.2-5.4 [facility] Comment on above: Performed By: #### L 100.0100, L3100.5000, L504.2610, L500.4050 ####[facility] [address] [place], [address] RDW SD 39.8 fl Normal 35.1-43.9 [facility] Comment on above: Performed By: #### L 100.0100, L3100.5000, L504.2610, L500.4050 ####[facility] [address] [place], [address] WBC (Bld) [#/Vol] 6.5 10*3/uL Normal 4.4-11.0 [facility] Comment on above: Performed By: #### L 100.0100, L3100.5000, L504.2610, L500.4050 ####[facility] [address] [place], [address] Carbon dioxide, total [Moles /volume] in Central venous bloodOrdered By: Carlos Bernal on 03-22-2025 CO2 [Moles/Vol] 21.8 mmol/L 21.0-32.0 [facility] Chloride assayOrdered By: Emily Bernal on 03-22-2025 Chloride [Moles/Vol] 102 mmol/L 98-108 [facility] Comprehensive Metabolic Prof ilon 03-22-2025 Albumin [Mass/Vol] 4.1 g/dL Normal 3.4-4.8 [facility] Comment on above: Performed By: #### L 100.0100, L3100.5000, L504.2610, L500.4050 ####[facility] [address] [place], [address] Albumin/Globulin [Mass ratio] 1.3 {ratio} Normal 0.9-2.4 [facility] Comment on above: Performed By: #### L 100.0100, L3100.5000, L504.2610, L500.4050 ####[facility] [address] [place], [address] ALK PHOS 84 U/L Normal 35-104 [facility] Comment on above: Performed By: #### L 100.0100, L3100.5000, L504.2610, L500.4050 ####[facility] [address] [place], [address] ALT [Catalytic activity/Vol] 18 U/L Normal <=34 [facility] Comment on above: Performed By: #### L 100.0100, L3100.5000, L504.2610, L500.4050 ####[facility] [address] [place], [address] AST [Catalytic activity/Vol] 32 U/L Normal <=31 [facility] Comment on above: Performed By: #### L 100.0100, L3100.5000, L504.2610, L500.4050 ####[facility] [address] [place], [address] Bilirubin [Mass/Vol] 0.24 mg/dL Normal 0.00-1.30 [facility] Comment on above: Performed By: #### L 100.0100, L3100.5000, L504.2610, L500.4050 ####[facility] [address] [place], [address] BUN/CRE 19.3 RATIO Normal 10-20 [facility] Comment on above: Performed By: #### L 100.0100, L3100.5000, L504.2610, L500.4050 ####[facility] [address] [place], [address] Calcium [Mass/Vol] 9.5 mg/dL Normal 7.6-11.0 [facility] Comment on above: Performed By: #### L 100.0100, L3100.5000, L504.2610, L500.4050 ####[facility] [address] [place], [address] Chloride [Moles/Vol] 102 mmol/L Normal 98-108 [facility] Comment on above: Performed By: #### L 100.0100, L3100.5000, L504.2610, L500.4050 ####[facility] [address] [place], [address] CO2 [Moles/Vol] 21.8 mmol/L Normal 21.0-32.0 [facility] Comment on above: Performed By: #### L 100.0100, L3100.5000, L504.2610, L500.4050 ####[facility] [address] [place], [address] Creatinine [Mass/Vol] 0.77 mg/dL Normal 0.70-1.20 [facility] Comment on above: Performed By: #### L 100.0100, L3100.5000, L504.2610, L500.4050 ####[facility] [address] [place], [address] ECRCL 47.95 ml/min Low 50-250 [facility] Comment on above: Performed By: #### L 100.0100, L3100.5000, L504.2610, L500.4050 ####[facility] [address] [place], [address] GAP 12 Normal 5-15 [facility] Comment on above: Performed By: #### L 100.0100, L3100.5000, L504.2610, L500.4050 ####[facility] [address] [place], [address] GFR/1.73 sq M.predicted among non-blacks MDRD (S/P/Bld) [Vol rate/Area] 77 mL/min/{1.73_m2} Normal >60 [facility] Comment on above: Result Comment: mL/m in/1.73m2 CKD-EPI Creatinine Equation (2020) Performed By: #### L 100.0100, L3100.5000, L504.2610, L500.4050 ####[facility] [address] [place], [address] Globulin (S) [Mass/Vol] 3.2 g/dL Normal 2.2-4.2 [facility] Comment on above: Performed By: #### L 100.0100, L3100.5000, L504.2610, L500.4050 ####[facility] [address] [place], [address] Glucose [Mass/Vol] 125 mg/dL High 70-99 [facility] Comment on above: Performed By: #### L 100.0100, L3100.5000, L504.2610, L500.4050 ####[facility] [address] [place], [address] Potassium [Moles/Vol] 3.7 mmol/L Normal 3.3-5.1 [facility] Comment on above: Performed By: #### L 100.0100, L3100.5000, L504.2610, L500.4050 ####[facility] [address] [place], [address] Sodium [Moles/Vol] 136 mmol/L Normal 133-145 [facility] Comment on above: Performed By: #### L 100.0100, L3100.5000, L504.2610, L500.4050 ####[facility] [address] [place], [address] T PROT 7.3 g/dL Normal 5.9-8.4 [facility] Comment on above: Performed By: #### L 100.0100, L3100.5000, L504.2610, L500.4050 ####[facility] [address] [place], [address] Urea nitrogen [Mass/Vol] 15 mg/dL Normal 4-19 [facility] Comment on above: Performed By: #### L 100.0100, L3100.5000, L504.2610, L500.4050 ####[facility] [address] [place], [address] Eosinophil percentageOrdered By: Carlos Bernal on 03-22-2025 Eosinophils/100 WBC (Bld) 1.4 % 0-5 [facility] Erythrocyte distribution wid th ratioOrdered By: [facility] on 03-22-2025 Erythrocyte distribution width (RBC) [Ratio] 12.3 % 11.6-14.6 [facility] Erythrocyte distribution wid th standard deviationOrdered By: [facility] on 03-22-2025 Erythrocyte distribution width (RBC) [Ratio] 39.8 fl 35.1-43.9 [facility] Glomerular filtration rate ( GFR) estimation/1.73 sq m using serum, plasma, or whole bOrdered By: [facility] on 03-22-2025 GFR/1.73 sq M.predicted among non-blacks MDRD (S/P/Bld) [Vol rate/Area] 77 mL/min/{1.73_m2} >60 [facility] Comment on above: mL/min/1.73m2 CKD-EP I Creatinine Equation (2020) Hematocrit Auto (Bld) [Volum e fraction]Ordered By: Carlos Bernal on 03-22-2025 Hematocrit (Bld) [Volume fraction] 32.9 % Low 37-47 [facility] Hemoglobin measurementOrdere d By: Carlos Bernal on 03-22-2025 Hemoglobin (Bld) [Mass/Vol] 10.4 g/dL Low 12.0-15.0 [facility] Immature granulocytes/100 WB C Auto (Bld)Ordered By: Carlos Bernal on 03-22-2025 Immature granulocytes/100 WBC (Bld) 0.300 % 0.0-0.9 [facility] Comment on above: IG% - Immature Granu locytes (promyelocytes, myelocytes and metamyelocytes) > 1% indicates that a LEFT SHIFT is Present. LDHon 03-22-2025 LDH 279 U/L High 84-246 [facility] Comment on above: Order Comment: 1 Performed By: #### L 100.0100, L3100.5000, L504.2610, L500.4050 ####[facility] [address] [place], [address] Laboratory - Chemistry and C hemistry - challengeOrdered By: Carlos Bernal on 03-22-2025 AST [Catalytic activity/Vol] 32 U/L <32 [facility] Lactate dehydrogenase (LDH) measurementOrdered By: Carlos Bernal on 03-22-2025 LDH [Catalytic activity/Vol] 279 U/L High 84-246 [facility] MCV (mean corpuscular volume ) determinationOrdered By: Carlos Bernal on 03-22-2025 MCV (RBC) [Entitic vol] 88.9 fL 81-99 [facility] Mean corpuscular hemoglobin (MCH) determinationOrdered By: Carlos Bernal on 03-22-2025 MCH (RBC) [Entitic mass] 28.1 pg 27.0-32.0 [facility] Mean corpuscular hemoglobin concentration (MCHC) determinationOrdered By: Carlos Bernal on 03-22-2025 MCHC (RBC) [Mass/Vol] 31.6 g/dL Low 32-36 [facility] Mean platelet volume determi nationOrdered By: Carlos Bernal on 03-22-2025 Platelet mean volume (Bld) [Entitic vol] 10.6 fL 6.2-12.0 [facility] Monocyte percentageOrdered B y: Carlos Bernal on 03-22-2025 Monocytes/100 WBC (Bld) 7.4 % 0-10 [facility] Neutrophil percentageOrdered By: Carlos Bernal on 03-22-2025 Neutrophils/100 WBC (Bld) 77.4 % High 47-70 [facility] Nucleated red blood cell per centageOrdered By: Carlos Bernal on 03-22-2025 Nucleated RBC/100 WBC (Bld) [Ratio] 0 % 0-5 [facility] Platelet countOrdered By: Emily Bernal on 03-22-2025 Platelets (Bld) [#/Vol] 314 10*3/uL 150-450 [facility] Potassium measurement (mass/ volume)Ordered By: Carlos Bernal on 03-22-2025 Potassium (Unsp spec) [Mass/Vol] 3.7 mmol/L 3.3-5.1 [facility] RBC Auto (Bld) [#/Vol]Ordere d By: Carlos Bernal on 03-22-2025 RBC (Bld) [#/Vol] 3.70 10*6/uL Low 4.2-5.4 [facility] Serum creatinine measurement (mass/volume)Ordered By: Carlos Bernal on 03-22-2025 Creatinine [Mass/Vol] 0.77 mg/dL 0.70-1.20 [facility] Serum globulin measurementOr dered By: Carlos Bernal on 03-22-2025 Globulin (S) [Mass/Vol] 3.2 g/dL 2.2-4.2 [facility] Serum glucose measurement (m ass/volume)Ordered By: Carlos Bernal on 03-22-2025 Glucose [Mass/Vol] 125 mg/dL High 70-99 [facility] Serum or plasma alanine thompson otransferase (ALT) measurementOrdered By: Carlos Bernal on 03-22-2025 ALT [Catalytic activity/Vol] 18 U/L <35 [facility] Serum or plasma albumin charlene urement (mass/volume)Ordered By: Carlos Bernal on 03-22-2025 Albumin [Mass/Vol] 4.1 g/dL 3.4-4.8 [facility] Serum or plasma albumin/glob ulin mass ratioOrdered By: Carlos Bernal on 03-22-2025 Albumin/Globulin [Mass ratio] 1.3 {ratio} 0.9-2.4 [facility] Serum or plasma alkaline dameon sphatase measurementOrdered By: Carlos Bernal on 03-22-2025 ALP [Catalytic activity/Vol] 84 U/L 35-104 [facility] Serum or plasma calcium charlene urement (mass/volume)Ordered By: Carlos Bernal on 03-22-2025 Calcium [Mass/Vol] 9.5 mg/dL 7.6-11.0 [facility] Serum or plasma urea nitroge n measurement (mass/volume)Ordered By: Carlos Bernal on 03-22-2025 Urea nitrogen [Mass/Vol] 15 mg/dL 4- [facility] Sodium levelOrdered By: Pedro Bernal on 03-22-2025 Sodium [Moles/Vol] 136 mmol/L 133-145 [facility] Total proteinOrdered By: Scot Bernal on 03-22-2025 Protein [Mass/Vol] 7.3 g/dL 5.9-8.4 [facility] White blood cell (WBC) count Ordered By: Carlos Bernal on 03-22-2025 WBC (Bld) [#/Vol] 6.5 10*3/uL 4.4-11.0 [facility] Hemoglobin A1con 02-27-2025 HbA1c (Bld) [Mass fraction] 5.6 % Normal <=5.6 [facility] Comment on above: Order Comment: Order Date: 02/27/25 Order Info: [id number] - A1C Result Comment: Norm al < 5.7 % Prediabetic 5.7 - 6.4 % Diabetic >or= 6.5 % Please note range changes. Performed By: #### L 501.9520, L501.9985 #### [facility] [address] [place], [place], [address] Hemoglobin A1c percentageOrd ered By: Lela Inetriano on 02-27-2025 HbA1c (Bld) [Mass fraction] 5.6 % <5.7 [facility] Comment on above: Normal < 5.7 % Predi abetic 5.7 - 6.4 % Diabetic >or= 6.5 % Please note range changes. TSH DL <= 0.005 mIU/L QnOrde red By: Lela Interiano on 02-27-2025 TSH Qn 0.144 uIU/mL Low 0.300-4.200 [facility] Thyroid Stim Hormone (TSH)on 02-27-2025 TSH 0.144 uIU/mL Low 0.300-4.200 [facility] Comment on above: Order Comment: Order Date: 02/27/25 Order Info: [id number] - TSH Performed By: #### L 501.9520, L501.9985 #### [facility] [address] [place], [address] Stress Reporton 02-07-2025 Stress Report [facility] [address] [place] [address] MR#: [id number] Acct: [id number] Name: LUZ CLANCY Rep #: [id number] : 1940 84 From: Riley Mckeon MD [...] MD Date Dictated: 02/07/25744 Date Transcribed: 02/07/25744 Instructional Technology Specialist: [place] Signed Normal [facility] Echo Completeon 02-03-2025 Echo Complete [facility] [address] [place] [address] Echo Complete 02/03/25913 MR#: [id number] Acct: [id number] Name: LUZ CLANCY Rep #: [id number] : 1940 84 From: Riley Mckeon MD Attending Dr: Dr. Riley Mckeon MD Status: [facility] Ordering Dr: Riley Mckeon MD Date: 02/03/25 [...] MD Date Dictated: 02/03/25913 Date Transcribed: 02/07/25830 Instructional Technology Specialist: Signed Normal [facility] 12 Lead EKG performed by [facility] on 01-11-2025 12 Lead EKG performed by [facility] [address] [place] [address] 12 Lead EKG performed by [facility] 01/11/25 1326 MR#: [id number] Acct: [id number] Name: LUZ CLANCY Rep #: [id number] : 1940 84 From: Riley Mckeon MD Attending Dr: Dr. Riley Mckeon MD Status: DEP A MB Ordering Dr: Riley Mckeon MD Date: 01/11/25 Location: [facility] Sex: F C Admitted: BMS/12 Lead EKG performed by [facility] ECG Report Interpretation Sinus Rhythm -Anteroseptal infarct -age undetermined. -Nonspecific ST depression -Nondiagnostic. ABNORMAL Electronically signed on 01/18/2025 at 11:27 by Riley Mckeon [employer] Version [id number] 01/18/25 1130 Date Riley Mckeon MD CC: Dr. Paola Corona MD Date Dictated: 01/11/25 1326 Date Transcribed: 01/11/251325 Instructional Technology Specialist: [place] Signed Normal [facility] Cardiology Visit Reporton Cardiology Visit Report [facility] [address] [place] [address] OFFICE VISIT Date of Service: 01/11/25 MR#: [id number] Acct: [id number] Name: LUZ CLANCY Rep #: [id number] : 1940 Provider: Dr. 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 Normal [facility] TSH DL <= 0.005 mIU/L QnOrde red By: Paola Corona on 12-20-2024 Thyroid Stimulating Hormone (TSH) 0.321 uIU/mL 0.300-4.200 [facility] TSH Qn 0.321 uIU/mL 0.300-4.200 [facility] Thyroid Stim Hormone (TSH)on 12-20-2024 TSH 0.321 uIU/mL Normal 0.300-4.200 [facility] Comment on above: Order Comment: Order Date: 10/25/24 Order Info: [id number] - TSH Performed By: #### L 501.9520 #### [facility] Laboratory [address] [place], [address] Absolute neutrophil countOrd ered By: Paola Corona on 10-24-2024 Neutrophils (Bld) [#/Vol] 7.7 10*3/uL 2.0-7.7 [facility] Albumin to globulin ratioOrd ered By: Paola Corona on 10-24-2024 Albumin/Globulin [Mass ratio] 1.0 {ratio} 0.9-2.4 [facility] Basophil percentageOrdered B y: Paola Corona on 10-24-2024 Basophils/100 WBC (Bld) 0.5 % 0-1 [facility] Bilirubin, totalOrdered By: Paola Corona on 10-24-2024 Bilirubin [Mass/Vol] 0.20 mg/dL 0.20-1.00 [facility] Comment on above: For patients on eltr ombopag therapy, use of Dimension Dawes TBIL is not recommended. Blood urea nitrogen (BUN)/cr eatinine ratioOrdered By: Paola Corona on 10-24-2024 Urea nitrogen/Creatinine [Mass ratio] 17.8 mg/mg 10-20 [facility] CBC W/Diff, Automatedon 10-12 Absolute Lymph 1.01 X10 3/uL Normal 0.83-4.51 [facility] Comment on above: Performed By: #### L 100.0100, L501.9520, L500.4050 ####[facility] [address] [place], [address] Absolute Neut 7.7 X10 3/uL Normal 2.0-7.7 [facility] Comment on above: Performed By: #### L 100.0100, L501.9520, L500.4050 ####[facility] [id number] [place], [address] Basophils/100 WBC (Bld) 0.5 % Normal 0-1 [facility] Comment on above: Performed By: #### L 100.0100, L501.9520, L500.4050 ####[facility] [id number] [place], [address] Eosinophils/100 WBC (Bld) 0.4 % Normal 0-5 [facility] Comment on above: Performed By: #### L 100.0100, L501.9520, L500.4050 ####[facility] [id number] [place], [address] Erythrocyte distribution width (RBC) [Ratio] 12.0 % Normal 11.6-14.6 [facility] Comment on above: Performed By: #### L 100.0100, L501.9520, L500.4050 ####[facility] [id number] [place], [address] Hematocrit (Bld) [Volume fraction] 37.3 % Normal 37-47 [facility] [facility] Comment on above: Performed By: #### L 100.0100, L501.9520, L500.4050 ####[facility] [address] [place], [address] Hemoglobin (Bld) [Mass/Vol] 12.2 g/dL Normal 12.0-15.0 [facility] Comment on above: Performed By: #### L 100.0100, L501.9520, L500.4050 ####[facility] [address] [place], [address] IG% 0.300 Normal 0.0-0.9 [facility] Comment on above: Result Comment: IG% - Immature Granulocytes (promyelocytes, myelocytes and metamyelocytes) > 1% indicates that a LEFT SHIFT is Present. Performed By: #### L 100.0100, L501.9520, L500.4050 ####[facility] [address] [place], [address] Lymphocytes/100 WBC (Bld) 10.6 % Low 19-41 [facility] Comment on above: Performed By: #### L 100.0100, L501.9520, L500.4050 ####[facility] [address] [place], [address] MCH (RBC) [Entitic mass] 30.0 pg Normal 27.0-32.0 [facility] Comment on above: Performed By: #### L 100.0100, L501.9520, L500.4050 ####[facility] [address] [place], [address] MCHC (RBC) [Mass/Vol] 32.7 g/dL Normal 32-36 [facility] Comment on above: Performed By: #### L 100.0100, L501.9520, L500.4050 ####[facility] [address] [place], [address] MCV (RBC) [Entitic vol] 91.6 fL Normal 81-99 [facility] Comment on above: Performed By: #### L 100.0100, L501.9520, L500.4050 ####[facility] [address] [place], [address] Monocytes/100 WBC (Bld) 7.9 % Normal 0-10 [facility] Comment on above: Performed By: #### L 100.0100, L501.9520, L500.4050 ####[facility] [address] [place], [address] Neutrophils/100 WBC (Bld) 80.3 % High 47-70 [facility] Comment on above: Performed By: #### L 100.0100, L501.9520, L500.4050 ####[facility] [address] [place], [address] Nucleated RBC (Bld) [#/Vol] 0 10*3/uL Normal 0-5 [facility] Comment on above: Performed By: #### L 100.0100, L501.9520, L500.4050 ####[facility] [address] [place], [address] Platelet mean volume (Bld) [Entitic vol] 11.5 fL Normal 6.2-12.0 [facility] Comment on above: Performed By: #### L 100.0100, L501.9520, L500.4050 ####[facility] [address] [place], [address] Platelets (Bld) [#/Vol] 296 10*3/uL Normal 150-450 [facility] Comment on above: Performed By: #### L 100.0100, L501.9520, L500.4050 ####[facility] [address] [place], [address] RBC (Bld) [#/Vol] 4.07 10*6/uL Low 4.2-5.4 [facility] Comment on above: Performed By: #### L 100.0100, L501.9520, L500.4050 ####[facility] [address] [place], [address] RDW SD 40.2 fl Normal 35.1-43.9 [facility] Comment on above: Performed By: #### L 100.0100, L501.9520, L500.4050 ####[facility] [address] [place], [address] WBC (Bld) [#/Vol] 9.6 10*3/uL Normal 4.4-11.0 [facility] Comment on above: Performed By: #### L 100.0100, L501.9520, L500.4050 ####[facility] [address] [place], [address] Carbon dioxide measurementOr dered By: Paola Corona on 10-24-2024 CO2 [Moles/Vol] 26.0 mmol/L 21.0-32.0 [facility] Chloride measurementOrdered By: Paola Corona on 10-24-2024 Chloride [Moles/Vol] 106 mmol/L 98-107 [facility] Comprehensive Metabolic Prof ilon 10-24-2024 Albumin [Mass/Vol] 3.9 g/dL Normal 3.2-5.0 [facility] Comment on above: Performed By: #### L 100.0100, L501.9520, L500.4050 ####[facility] [address] [place], [address] Albumin/Globulin [Mass ratio] 1.0 {ratio} Normal 0.9-2.4 [facility] Comment on above: Performed By: #### L 100.0100, L501.9520, L500.4050 ####[facility] [address] [place], [address] ALK P 76 U/L Normal 45-117 [facility] Comment on above: Performed By: #### L 100.0100, L501.9520, L500.4050 ####[facility] [address] [place], [address] ALT [Catalytic activity/Vol] 27 U/L Normal 13-56 [facility] Comment on above: Performed By: #### L 100.0100, L501.9520, L500.4050 ####[facility] [address] [place], [address] AST [Catalytic activity/Vol] 26 U/L Normal 15-37 [facility] Comment on above: Performed By: #### L 100.0100, L501.9520, L500.4050 ####[facility] [address] [place], [address] Bilirubin [Mass/Vol] 0.20 mg/dL Normal 0.20-1.00 [facility] Comment on above: Result Comment: For patients on eltrombopag therapy, use of Dimension Dawes TBIL is not recommended. Performed By: #### L 100.0100, L501.9520, L500.4050 ####[facility] [address] [place], [address] BUN/CRE 17.8 RATIO Normal 10-20 [facility] Comment on above: Performed By: #### L 100.0100, L501.9520, L500.4050 ####[facility] [address] [place], [address] CA,Total 9.4 mg/dL Normal 8.5-10.1 [facility] Comment on above: Performed By: #### L 100.0100, L501.9520, L500.4050 ####[facility] [address] [place], [address] Chloride [Moles/Vol] 106 mmol/L Normal 98-107 [facility] Comment on above: Performed By: #### L 100.0100, L501.9520, L500.4050 ####[facility] [address] [place], [address] CO2 [Moles/Vol] 26.0 mmol/L Normal 21.0-32.0 [facility] Comment on above: Performed By: #### L 100.0100, L501.9520, L500.4050 ####[facility] [address] [place], [address] Creatinine [Mass/Vol] 0.73 mg/dL Normal 0.55-1.02 [facility] Comment on above: Result Comment: The validity of the calculated GFR GFRAA in patients over 70 years has not been determined. Clinical correlation is essential. Performed By: #### L 100.0100, L501.9520, L500.4050 ####[facility] [address] [place], [address] EST GFR - AA 98 mL/min Normal >60 [facility] Comment on above: Result Comment: Afri can Montenegrin GFR Calc Performed By: #### L 100.0100, L501.9520, L500.4050 ####[facility] [address] [place], [address] GAP 5 Normal 5-15 [facility] Comment on above: Performed By: #### L 100.0100, L501.9520, L500.4050 ####[facility] [address] [place], [address] GFR/1.73 sq M.predicted among non-blacks MDRD (S/P/Bld) [Vol rate/Area] 81 mL/min/{1.73_m2} Normal >60 [facility] Comment on above: Result Comment: Non- GFR Calc Performed By: #### L 100.0100, L501.9520, L500.4050 ####[facility] [address] [place], [address] Globulin (S) [Mass/Vol] 4.1 g/dL Normal 2.2-4.2 [facility] Comment on above: Performed By: #### L 100.0100, L501.9520, L500.4050 ####[facility] [address] [place], [address] Glucose [Mass/Vol] 104 mg/dL Normal 74-106 [facility] Comment on above: Result Comment: Fast ing Glucose result from 100 to 125 mg/dL suggests IMPAIRED HOMEOSTASIS per A.D.A. criteria. Performed By: #### L 100.0100, L501.9520, L500.4050 ####[facility] [address] [place], [address] Potassium [Moles/Vol] 3.4 mmol/L Low 3.5-5.1 [facility] Comment on above: Performed By: #### L 100.0100, L501.9520, L500.4050 ####[facility] [address] [place], [address] Sodium [Moles/Vol] 136 mmol/L Normal 136-145 [facility] Comment on above: Performed By: #### L 100.0100, L501.9520, L500.4050 ####[facility] [address] [place], [address] T PROT 8.0 g/dL Normal 6.4-8.2 [facility] Comment on above: Performed By: #### L 100.0100, L501.9520, L500.4050 ####[facility] [address] [place], [address] Urea nitrogen [Mass/Vol] 13 mg/dL Normal 7-18 [facility] Comment on above: Performed By: #### L 100.0100, L501.9520, L500.4050 ####[facility] [address] [place], [address] Eosinophil percentageOrdered By: Paola Corona on 10-24-2024 Eosinophils/100 WBC (Bld) 0.4 % 0-5 [facility] Erythrocyte distribution wid th ratioOrdered By: aPola Corona on 10-24-2024 Erythrocyte distribution width (RBC) [Ratio] 12.0 % 11.6-14.6 [facility] Erythrocyte distribution wid th standard deviationOrdered By: Paola Corona on 10-24-2024 Erythrocyte distribution width (RBC) [Entitic vol] 40.2 fL 35.1-43.9 [facility] Estimated glomerular filtrat ion rate (GFR) AmericanOrdered By: Paola Corona on 10-24-2024 Estimated GFR (MDRD) Amer 98 mL/min >60 [facility] Comment on above: GFR Calc Glomerular filtration rate ( GFR) estimationOrdered By: Paola Corona on 10-24-2024 Estimated GFR (MDRD) Non-Af Amer 81 mL/min >60 [facility] Comment on above: Non- GFR Calc Glucose measurementOrdered B y: Paola Corona on 10-24-2024 Glucose [Mass/Vol] 104 mg/dL 74-106 [facility] Comment on above: Fasting Glucose resu lt from 100 to 125 mg/dL suggests IMPAIRED HOMEOSTASIS per A.D.A. criteria. Hematocrit Auto (Bld) [Volum e fraction]Ordered By: Paola Corona on 10-24-2024 Hematocrit (Bld) [Volume fraction] 37.3 % 37-47 [facility] Hemoglobin measurementOrdere d By: Paola Corona on 10-24-2024 Hemoglobin (Bld) [Mass/Vol] 12.2 g/dL 12.0-15.0 [facility] Immature granulocytes/100 WB C Auto (Bld)Ordered By: Paola Corona on 10-24-2024 Immature granulocytes/100 WBC (Bld) 0.300 % 0.0-0.9 [facility] Comment on above: IG% - Immature Granu locytes (promyelocytes, myelocytes and metamyelocytes) > 1% indicates that a LEFT SHIFT is Present. Laboratory - Chemistry and C hemistry - challengeOrdered By: Paola Corona on 10-24-2024 AST [Catalytic activity/Vol] 26 U/L 15-37 [facility] Lymphocytes Auto (Unsp spec) [#/Vol]Ordered By: Paola Corona on 10-24-2024 Lymphocytes (Bld) [#/Vol] 1.01 10*3/uL 0.83-4.51 [facility] Lymphocytes/100 WBC Auto (Un sp spec)Ordered By: Paola Corona on 10-24-2024 Lymphocytes/100 WBC (Bld) 10.6 % Low 19-41 [facility] MCV (mean corpuscular volume ) determinationOrdered By: Paola Corona on 10-24-2024 MCV (RBC) [Entitic vol] 91.6 fL 81-99 [facility] Mean corpuscular hemoglobin (MCH) determinationOrdered By: Paola Corona on 10-24-2024 MCH (RBC) [Entitic mass] 30.0 pg 27.0-32.0 [facility] Mean corpuscular hemoglobin concentration (MCHC) determinationOrdered By: Paola Corona on 10-24-2024 MCHC (RBC) [Mass/Vol] 32.7 g/dL 32-36 [facility] Mean platelet volume determi nationOrdered By: Paola Corona on 10-24-2024 Platelet mean volume (Bld) [Entitic vol] 11.5 fL 6.2-12.0 [facility] Monocyte percentageOrdered B y: Paola Corona on 10-24-2024 Monocytes/100 WBC (Bld) 7.9 % 0-10 [facility] Neutrophil percentageOrdered By: Paola Corona on 10-24-2024 Neutrophils/100 WBC (Bld) 80.3 % High 47-70 [facility] Nucleated red blood cell per centageOrdered By: Paola Corona on 10-24-2024 Nucleated RBC/100 WBC (Bld) [Ratio] 0 % 0-5 [facility] Platelet countOrdered By: Guerrero Corona on 10-24-2024 Platelets (Bld) [#/Vol] 296 10*3/uL 150-450 [facility] Potassium measurementOrdered By: Paola Corona on 10-24-2024 Potassium [Moles/Vol] 3.4 mmol/L Low 3.5-5.1 [facility] RBC Auto (Bld) [#/Vol]Ordere d By: Paola Corona on 10-24-2024 RBC (Bld) [#/Vol] 4.07 10*6/uL Low 4.2-5.4 [facility] Serum anion gap measurementO rdered By: Paola Corona on 10-24-2024 Anion gap [Moles/Vol] 5 mmol/L 5-15 [facility] Serum globulin measurementOr dered By: Paola Corona on 10-24-2024 Globulin (S) [Mass/Vol] 4.1 g/dL 2.2-4.2 [facility] Serum or plasma alanine thompson otransferase (ALT) measurementOrdered By: Paola Corona on 10-24-2024 ALT [Catalytic activity/Vol] 27 U/L [facility] Serum or plasma albumin charlene urement (mass/volume)Ordered By: Paola Corona on 10-24-2024 Albumin [Mass/Vol] 3.9 g/dL 3.2-5.0 [facility] Serum or plasma alkaline dameon sphatase measurementOrdered By: Paola Corona on 10-24-2024 ALP [Catalytic activity/Vol] 76 U/L 45-117 [facility] Serum or plasma calcium charlene urement (mass/volume)Ordered By: aPola Corona on 10-24-2024 Calcium [Mass/Vol] 9.4 mg/dL 8.5-10.1 [facility] Serum or plasma creatinine m easurement (mass/volume)Ordered By: Paola Corona on 10-24-2024 Creatinine [Mass/Vol] 0.73 mg/dL 0.55-1.02 [facility] Comment on above: The validity of the calculated GFR & GFRAA in patients over 70 years has not been determined. Clinical correlation is essential. Serum or plasma urea nitroge n measurement (mass/volume)Ordered By: Paola Corona on 10-24-2024 Urea nitrogen [Mass/Vol] 13 mg/dL 7-18 [facility] Sodium levelOrdered By: Paola Corona on 10-24-2024 Sodium [Moles/Vol] 136 mmol/L 136-145 [facility] TSH QnOrdered By: Paoal naik on 10-24-2024 Thyroid Stimulating Hormone (TSH) 6.580 uIU/mL High 0.358-3.740 [facility] Thyroid Stim Hormone (TSH)on 10-24-2024 TSH 6.580 uIU/mL High 0.358-3.740 [facility] Comment on above: Performed By: #### L 100.0100, L501.9520, L500.4050 ####[facility] [address] [place], [address] Total proteinOrdered By: Paola Corona on 10-24-2024 Protein [Mass/Vol] 8.0 g/dL 6.4-8.2 [facility] White blood cell (WBC) count Ordered By: Paola Corona on 10-24-2024 WBC (Bld) [#/Vol] 9.6 10*3/uL 4.4-11.0 [facility] Urgent Care Visit Reporton 0 10-21-2024 [address] Report [facility] [address], [address] [place] [address] OFFICE VISIT Date of Service: 10/21/24 MR#: [id number] Acct: [id number] Name: LUZ CLANCY Rep #: [id number] : 1940 Provider: MARLY Fox Age/Sex: 84/F Location: [facility] Status: Signed Intake Vital Signs 04/05/24 14:52 10/21/24 06:35 Height 5 ft 5 in BP 160/76 H Blood Pressure Location Lt brachial Position Sitting Respiration 16 Pulse 116 H Pulse Source NIBP Temp 97.9 F Temp Source Oral Pulse Oximetry (%) 97 Oxygen Delivery Method room air Intake Visit Reasons: BACK PAIN Chief Complaint: upper back pain 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 Abdomen Limitedon 05-18-2024 [facility] [address] [place] [address] Abdomen Limited MR#: [id number] Acct: [id number] Name: LUZ CLANCY Rep #: [id number] : 1940 F 84 From: Rahel emerson MD PCP: Dr. Paola Corona MD Status: REG CLI Study: Abdomen Limited Date of Exam: 05/18/24 Exam# [id number] Ordering Dr: Paola Corona MD [id number] HISTORY: nausea. TECHNIQUE: Rodríguez scale and color [...] EDT , CC: Dr. Paola Corona MD Instructional Technology Specialist: Signed Normal [facility] Culture, urineOrdered By: Damaris Parrish on 02-04-2024 Bacteria identified Cx Nom (U) Streptococcus mitis/ oralis [facility] Laboratory - Chemistry and C hemistry - challengeon 02-04-2024 Bilirubin Ql (U) Negative [facility] Glucose Ql (U) Negative [facility] Ketones Ql (U) Negative [facility] pH (U) 6.0 [pH] [facility] Specific gravity (U) [Rel density] 1.010 [facility] Urobilinogen (U) [Mass/Vol] Negative [facility] Laboratory - Hematology and Cell countson 02-04-2024 Hemoglobin Ql (U) Negative [facility] Laboratory - Specimen inform ationon 02-04-2024 Clarity (U) Clear [facility] Color (U) YELLOW [facility] Laboratory - Urinalysison Nitrite Ql (U) Negative [facility] Protein Ql (U) Negative [facility] No Panel Informationon 02-[address] [facility] Urine Non-Hemolyzed Blood [facility] Absolute lymphocyte countOrd ered By: Carlos Bernal on 03-30-2023 Lymphocytes Auto (Unsp spec) [#/Vol] 0.90 10*3/uL 0.83-4.51 [facility] Basophil percentageOrdered B y: Carlos Bernal on 03-30-2023 Basophils/100 WBC (Bld) 0.5 % 0-1 [facility] Bilirubin [Mass/Vol] 0.30 mg/dL 0.20-1.00 [facility] Comment on above: For patients on eltr ombopag therapy, use of Dimension Dawes TBIL is not recommended. Chloride [Moles/Vol] 105 mmol/L 98-107 [facility] Eosinophils/100 WBC (Bld) 1.0 % 0-5 [facility] Glucose [Mass/Vol] 100 mg/dL 74-106 [facility] Comment on above: Fasting Glucose resu lt from 100 to 125 mg/dL suggests IMPAIRED HOMEOSTASIS per A.D.A. criteria. LDH [Catalytic activity/Vol] 287 U/L 84-246 [facility] Neutrophils (Bld) [#/Vol] 2.7 10*3/uL 2.0-7.7 [facility] Neutrophils/100 WBC (Bld) 68.4 % 47-70 [facility] Potassium [Moles/Vol] 4.1 mmol/L 3.5-5.1 [facility] Protein [Mass/Vol] 8.0 g/dL 6.4-8.2 [facility] Sodium [Moles/Vol] 136 mmol/L 136-145 [facility] WBC (Bld) [#/Vol] 3.9 10*3/uL 4.4-11.0 [facility] Blood erythrocytes count (nu mber/volume)Ordered By: Carlos Bernal on 03-30-2023 RBC (Bld) [#/Vol] 3.98 10*6/uL 4.2-5.4 [facility] Blood hemoglobin measurement (mass/volume)Ordered By: Carlos Bernal on 03-30-2023 Hemoglobin (Bld) [Mass/Vol] 11.8 g/dL 12.0-15.0 [facility] Blood lymphocytes/100 leukoc ytesOrdered By: Carlos Bernal on 03-30-2023 Lymphocytes/100 WBC (Bld) 23.1 % 19-41 [facility] Blood monocytes/100 leukocyt esOrdered By: Carlos Bernal on 03-30-2023 Monocytes/100 WBC (Bld) 6.7 % 0-10 [facility] Blood platelet mean volumeOr dered By: Carlos Bernal on 03-30-2023 Platelet mean volume (Bld) [Entitic vol] 11.3 fL 6.2-12.0 [facility] Determination of erythrocyte mean corpuscular volume (MCV)Ordered By: Carlos Bernal on 03-30-2023 MCV (RBC) [Entitic vol] 93.7 fL 81-99 [facility] Hematocrit Auto (Bld) [Volum e fraction]Ordered By: Carlos Bernal on 03-30-2023 Hematocrit (Bld) [Volume fraction] 37.3 % 37-47 [facility] Laboratory - Chemistry and C hemistry - challengeOrdered By: Carlos Bernal on 03-30-2023 ALP [Catalytic activity/Vol] 62 U/L 45-117 [facility] ALT [Catalytic activity/Vol] 35 U/L 13-56 [facility] CO2 [Moles/Vol] 26.0 mmol/L 21.0-32.0 [facility] Globulin (S) [Mass/Vol] 3.9 g/dL 2.2-4.2 [facility] Urea nitrogen/Creatinine [Mass ratio] 20.2 mg/mg 10-20 [facility] Laboratory - Hematology and Cell countsOrdered By: Carlos Bernal on 03-30-2023 Erythrocyte distribution width (RBC) [Entitic vol] 42.2 fL 35.1-43.9 [facility] Erythrocyte distribution width (RBC) [Ratio] 12.3 % 11.6-14.6 [facility] Immature granulocytes/100 WBC (Bld) 0.300 % 0.0-0.9 [facility] Comment on above: IG% - Immature Granu locytes (promyelocytes, myelocytes and metamyelocytes) > 1% indicates that a LEFT SHIFT is Present. MCH (RBC) [Entitic mass] 29.6 pg 27.0-32.0 [facility] Nucleated RBC/100 WBC (Bld) [Ratio] 0 % 0-5 [facility] MCHC Auto (RBC) [Mass/Vol]Or dered By: Carlos Bernal on 03-30-2023 MCHC (RBC) [Mass/Vol] 31.6 g/dL 32-36 [facility] No Panel InformationOrdered By: Carlos Bernal on 03-30-2023 CA 125 Antigen 21.8 U/mL 0.0-38.1 [facility] Comment on above: [facility] El ectrochemiluminescence Immunoassay(ECLIA)Values obtained with different assay methods or kits cannotbe used interchangeably. Results cannot be interpreted asabsolute evidence of the presence or absence of malignantdisease.Performed at: [facility] [address] [id number] Director: Guero Smyth PhD, Phone: [phone] Estimated Creatinine Clearance Calc 44.61 ml/min [facility] Estimated GFR (MDRD) Amer 78 mL/min >60 [facility] Comment on above: GFR Calc Estimated GFR (MDRD) Non-Af Amer 64 mL/min >60 [facility] Comment on above: Non- GFR Calc Reactive Lymphocytes RARE [facility] Platelets bldOrdered By: Scot Bernal on 03-30-2023 Platelets (Bld) [#/Vol] 237 10*3/uL 150-450 [facility] Serum or plasma albumin charlene urement (mass/volume)Ordered By: Carlos Bernal on 03-30-2023 Albumin [Mass/Vol] 4.1 g/dL 3.2-5.0 [facility] Serum or plasma albumin/glob ulin mass ratioOrdered By: Carlos Bernal on 03-30-2023 Albumin/Globulin [Mass ratio] 1.1 {ratio} 0.9-2.4 [facility] Serum or plasma calcium charlene urement (mass/volume)Ordered By: Carlos Bernal on 03-30-2023 Calcium [Mass/Vol] 9.8 mg/dL 8.5-10.1 [facility] Serum or plasma creatinine m easurement (mass/volume)Ordered By: Carlos Bernal on 03-30-2023 Creatinine [Mass/Vol] 0.89 mg/dL 0.55-1.02 [facility] Comment on above: The validity of the calculated GFR & GFRAA in patients over 70 years has not been determined. Clinical correlation is essential. Serum or plasma urea nitroge n measurement (mass/volume)Ordered By: Carlos Bernal on 03-30-2023 Urea nitrogen [Mass/Vol] 18 mg/dL 7-18 [facility] Thin prep Papanicolaou smear with manual screeningOrdered By: Carlos Bernal on 03-30-2023 Thin prep Papanicolaou smear with manual screening 33 U/L 15-37 [facility] Thin prep Papanicolaou smear with manual screening 5 5-15 [facility] Absolute lymphocyte countOrd ered By: Dr. Bernal on 03-16-2023 Lymphocytes Auto (Unsp spec) [#/Vol] 0.80 10*3/uL 0.83-4.51 [facility] Basophil percentageOrdered B y: Dr. Bernal on 03-16-2023 Basophils/100 WBC (Bld) 0.8 % 0-1 [facility] Bilirubin [Mass/Vol] 0.40 mg/dL 0.20-1.00 [facility] Comment on above: For patients on eltr ombopag therapy, use of Dimension Dawes TBIL is not recommended. Chloride [Moles/Vol] 108 mmol/L 98-107 [facility] Eosinophils/100 WBC (Bld) 1.8 % 0-5 [facility] Glucose [Mass/Vol] 90 mg/dL 74-106 [facility] LDH [Catalytic activity/Vol] 300 U/L 84-246 [facility] Neutrophils (Bld) [#/Vol] 3.6 10*3/uL 2.0-7.7 [facility] Neutrophils/100 WBC (Bld) 72.1 % 47-70 [facility] Potassium [Moles/Vol] 3.3 mmol/L 3.5-5.1 [facility] Protein [Mass/Vol] 8.4 g/dL 6.4-8.2 [facility] Sodium [Moles/Vol] 140 mmol/L 136-145 [facility] WBC (Bld) [#/Vol] 4.9 10*3/uL 4.4-11.0 [facility] Blood erythrocytes count (nu mber/volume)Ordered By: Dr. Bernal on 03-16-2023 RBC (Bld) [#/Vol] 4.04 10*6/uL 4.2-5.4 [facility] Blood hemoglobin measurement (mass/volume)Ordered By: Dr. Bernal on 03-16-2023 Hemoglobin (Bld) [Mass/Vol] 12.0 g/dL 12.0-15.0 [facility] Blood lymphocytes/100 leukoc ytesOrdered By: Dr. Bernal on 03-16-2023 Lymphocytes/100 WBC (Bld) 16.2 % 19-41 [facility] Blood monocytes/100 leukocyt esOrdered By: Dr. Bernal on 03-16-2023 Monocytes/100 WBC (Bld) 8.9 % 0-10 [facility] Blood platelet mean volumeOr dered By: Dr. Bernal on 03-16-2023 Platelet mean volume (Bld) [Entitic vol] 12.9 fL 6.2-12.0 [facility] Determination of erythrocyte mean corpuscular volume (MCV)Ordered By: Dr. Bernal on 03-16-2023 MCV (RBC) [Entitic vol] 95.3 fL 81-99 [facility] Hematocrit Auto (Bld) [Volum e fraction]Ordered By: Dr. Bernal on 03-16-2023 Hematocrit (Bld) [Volume fraction] 38.5 % 37-47 [facility] Laboratory - Chemistry and C hemistry - challengeOrdered By: Dr. Bernal on 03-16-2023 ALP [Catalytic activity/Vol] 61 U/L 45-117 [facility] ALT [Catalytic activity/Vol] 30 U/L 13-56 [facility] CO2 [Moles/Vol] 26.0 mmol/L 21.0-32.0 [facility] Globulin (S) [Mass/Vol] 4.4 g/dL 2.2-4.2 [facility] Urea nitrogen/Creatinine [Mass ratio] 22.6 mg/mg 10-20 [facility] Laboratory - Hematology and Cell countsOrdered By: Dr. Bernal on 03-16-2023 Erythrocyte distribution width (RBC) [Entitic vol] 44.4 fL 35.1-43.9 [facility] Erythrocyte distribution width (RBC) [Ratio] 12.7 % 11.6-14.6 [facility] Immature granulocytes/100 WBC (Bld) 0.200 % 0.0-0.9 [facility] Comment on above: IG% - Immature Granu locytes (promyelocytes, myelocytes and metamyelocytes) > 1% indicates that a LEFT SHIFT is Present. MCH (RBC) [Entitic mass] 29.7 pg 27.0-32.0 [facility] Nucleated RBC/100 WBC (Bld) [Ratio] 0 % 0-5 [facility] MCHC Auto (RBC) [Mass/Vol]Or dered By: Dr. Bernal on 03-16-2023 MCHC (RBC) [Mass/Vol] 31.2 g/dL 32-36 [facility] No Panel InformationOrdered By: Dr. Bernal on 03-16-2023 CA 125 Antigen 21.6 U/mL 0.0-38.1 [facility] Comment on above: [facility] El ectrochemiluminescence Immunoassay(ECLIA)Values obtained with different assay methods or kits cannotbe used interchangeably. Results cannot be interpreted asabsolute evidence of the presence or absence of malignantdisease.Performed at: [facility] [address] [id number] Director: Guero Smyth PhD, Phone: [phone] Estimated GFR (MDRD) Amer 89 mL/min >60 [facility] Comment on above: GFR Calc Estimated GFR (MDRD) Non-Af Amer 73 mL/min >60 [facility] Comment on above: Non- GFR Calc Platelets bldOrdered By: Dr. Bernal on 03-16-2023 Platelets (Bld) [#/Vol] 216 10*3/uL 150-450 [facility] Serum or plasma albumin charlene urement (mass/volume)Ordered By: Dr. Bernal on 03-16-2023 Albumin [Mass/Vol] 4.0 g/dL 3.2-5.0 [facility] Serum or plasma albumin/glob ulin mass ratioOrdered By: Dr. Bernal on 03-16-2023 Albumin/Globulin [Mass ratio] 0.9 {ratio} 0.9-2.4 [facility] Serum or plasma calcium charlene urement (mass/volume)Ordered By: Dr. Bernal on 03-16-2023 Calcium [Mass/Vol] 9.9 mg/dL 8.5-10.1 [facility] Serum or plasma creatinine m easurement (mass/volume)Ordered By: Dr. Bernal on 03-16-2023 Creatinine [Mass/Vol] 0.80 mg/dL 0.55-1.02 [facility] Comment on above: The validity of the calculated GFR & GFRAA in patients over 70 years has not been determined. Clinical correlation is essential. Serum or plasma urea nitroge n measurement (mass/volume)Ordered By: Dr. Bernal on 03-16-2023 Urea nitrogen [Mass/Vol] 18 mg/dL 7-18 [facility] Thin prep Papanicolaou smear with manual screeningOrdered By: Dr. Bernal on 03-16-2023 Thin prep Papanicolaou smear with manual screening 31 U/L 15-37 [facility] Thin prep Papanicolaou smear with manual screening 6 5-15 [facility] Absolute lymphocyte counton 06-05-2022 Lymphocytes Auto (Unsp spec) [#/Vol] 1.18 10*3/uL 0.83-4.51 [facility] Work Phone: Basophil percentageon 2021 Basophil percentage 0 SEEN /hpf 0-5 [facility] Work Phone: Basophils/100 WBC (Bld) 0.4 % 0-1 [facility] Work Phone: Bilirubin [Mass/Vol] 0.70 mg/dL 0.20-1.00 [facility] Work Phone: Comment on above: For patients on eltr ombopag therapy, use of Dimension Dawes TBIL is not recommended. Chloride [Moles/Vol] 108 mmol/L 98-107 [facility] Work Phone: Eosinophils/100 WBC (Bld) 1.5 % 0-5 [facility] Work Phone: Glucose [Mass/Vol] 113 mg/dL 74-106 [facility] Work Phone: [phone] Comment on above: Fasting Glucose resu lt from 100 to 125 mg/dL suggests IMPAIRED HOMEOSTASIS per A.D.A. criteria. Lactate [Moles/Vol] 1.6 mmol/L 0.4-2.0 [facility] Work Phone: Neutrophils (Bld) [#/Vol] 3.1 10*3/uL 2.0-7.7 [facility] Work Phone: Neutrophils/100 WBC (Bld) 65.7 % 47-70 [facility] Work Phone: Potassium [Moles/Vol] 3.3 mmol/L 3.5-5.1 [facility] Work Phone: Protein [Mass/Vol] 7.6 g/dL 6.4-8.2 [facility] Work Phone: Sodium [Moles/Vol] 141 mmol/L 136-145 [facility] Work Phone: WBC (Bld) [#/Vol] 4.8 10*3/uL 4.4-11.0 [facility] Work Phone: [phone] Bilirubin Test strip Ql (U)o n 08-25-2022 Bilirubin Ql (U) Negative Negative [facility] Work Phone: [phone] Blood erythrocytes count (nu mber/volume)on 06-05-2022 RBC (Bld) [#/Vol] 4.09 10*6/uL 4.2-5.4 [facility] Work Phone: [phone] Blood hemoglobin measurement (mass/volume)on 06-05-2022 Hemoglobin (Bld) [Mass/Vol] 12.3 g/dL 12.0-15.0 [facility] Work Phone: Blood lymphocytes/100 leukoc yteson 06-05-2022 Lymphocytes/100 WBC (Bld) 24.8 % 19-41 [facility] Work Phone: Blood monocytes/100 leukocyt eson 06-05-2022 Monocytes/100 WBC (Bld) 7.6 % 0-10 [facility] Work Phone: Blood platelet mean volumeon 06-05-2022 Platelet mean volume (Bld) [Entitic vol] 11.6 fL 6.2-12.0 [facility] Work Phone: [phone] Determination of erythrocyte mean corpuscular volume (MCV)on 06-05-2022 MCV (RBC) [Entitic vol] 91.2 fL 81-99 [facility] Work Phone: Hematocrit Auto (Bld) [Volum e fraction]on 06-05-2022 Hematocrit (Bld) [Volume fraction] 37.3 % 37-47 [facility] Work Phone: [phone] INR in Blood by Coagulation assayon 06-05-2022 INR Coag (Bld) [Relative time] 1.0 {INR} [facility] Work Phone: [phone] Ketones Test strip Ql (U)on 06-05-2022 Ketones Ql (U) 5 mg/dl Negative [facility] Work Phone: [phone] Laboratory - Chemistry and C hemistry - challengeon 06-05-2022 ALP [Catalytic activity/Vol] 72 U/L 45-117 [facility] Work Phone: ALT [Catalytic activity/Vol] 24 U/L 13-56 [facility] Work Phone: CO2 [Moles/Vol] 24.0 mmol/L 21.0-32.0 [facility] Work Phone: Globulin (S) [Mass/Vol] 3.4 g/dL 2.2-4.2 [facility] Work Phone: Urea nitrogen/Creatinine [Mass ratio] 13.2 mg/mg 10-20 [facility] Work Phone: [phone] Laboratory - Coagulationon 0 06-05-2022 aPTT Coag (Bld) [Time] 24.3 s 24.1-36.2 [facility] Work Phone: PT Coag (PPP) [Time] 12.7 s 11.7-14.9 [facility] Work Phone: [phone] Laboratory - Hematology and Cell countson 06-05-2022 Erythrocyte distribution width (RBC) [Entitic vol] 39.8 fL 35.1-43.9 [facility] Work Phone: Erythrocyte distribution width (RBC) [Ratio] 11.9 % 11.6-14.6 [facility] Work Phone: Immature granulocytes/100 WBC (Bld) 0.000 % 0.0-0.9 [facility] Work Phone: [phone] Comment on above: IG% - Immature Granu locytes (promyelocytes, myelocytes and metamyelocytes) > 1% indicates that a LEFT SHIFT is Present. MCH (RBC) [Entitic mass] 30.1 pg 27.0-32.0 [facility] Work Phone: Nucleated RBC/100 WBC (Bld) [Ratio] 0 % 0-5 [facility] Work Phone: MCHC Auto (RBC) [Mass/Vol]on 06-05-2022 MCHC (RBC) [Mass/Vol] 33.0 g/dL 32-36 [facility] Work Phone: Mucus LM Ql (Urine sed)on Mucus Ql (Urine sed) 0 SEEN /hpf [facility] Work Phone: Nitrite Test strip Ql (U)on 06-05-2022 Nitrite Ql (U) Negative Negative [facility] Work Phone: No Panel Informationon 06-05 Estimated Creatinine Clearance Calc 47.26 ml/min [facility] Work Phone: Estimated GFR (MDRD) Amer 84 mL/min >60 [facility] Work Phone: Comment on above: GFR Calc Estimated GFR (MDRD) Non-Af Amer 70 mL/min >60 [facility] Work Phone: Comment on above: Non- GFR Calc Troponin I High Sensitivity 7 pg/mL 3.0-54.0 [facility] Work Phone: Comment on above: Please Note: New Neelima t Units and Gender Specific Reference Ranges. For more information see Policy Stat Procedure Dawes High Sensitivity Troponin (TNIH) and attachments. Platelets bldon 06-05-2022 Platelets (Bld) [#/Vol] 228 10*3/uL 150-450 [facility] Work Phone: Protein Test strip Ql (U)on 06-05-2022 Protein Ql (U) Negative Negative [facility] Work Phone: Serum or plasma albumin charlene urement (mass/volume)on 06-05-2022 Albumin [Mass/Vol] 4.2 g/dL 3.2-5.0 [facility] Work Phone: Serum or plasma albumin/glob ulin mass ratioon 06-05-2022 Albumin/Globulin [Mass ratio] 1.2 {ratio} 0.9-2.4 [facility] Work Phone: Serum or plasma calcium charlene urement (mass/volume)on 06-05-2022 Calcium [Mass/Vol] 9.5 mg/dL 8.5-10.1 [facility] Work Phone: Serum or plasma creatinine m easurement (mass/volume)on 06-05-2022 Creatinine [Mass/Vol] 0.84 mg/dL 0.55-1.02 [facility] Work Phone: Comment on above: The validity of the calculated GFR & GFRAA in patients over 70 years has not been determined. Clinical correlation is essential. Serum or plasma urea nitroge n measurement (mass/volume)on 06-05-2022 Urea nitrogen [Mass/Vol] 11 mg/dL 7-18 [facility] Work Phone: Squamous epithelial cells de tection in urine sediment by light microscopyon 06-05-2022 Epithelial cells.squamous LM Ql (Urine sed) 0 SEEN /hpf 5-10 [facility] Work Phone: Thin prep Papanicolaou smear with manual screeningon 06-05-2022 Thin prep Papanicolaou smear with manual screening 24 U/L 15-37 [facility] Work Phone: Thin prep Papanicolaou smear with manual screening 9 5-15 [facility] Work Phone: Urine blood detectionon 05-13 RBC Ql (U) Negative Negative [facility] Work Phone: RBC Ql (U) 0 SEEN /hpf 0-5 [facility] Work Phone: Urine clarityon 06-05-2022 Clarity (U) Clear Clear [facility] Work Phone: Urine color determinationon 06-05-2022 Color (U) Yellow Yellow [facility] Work Phone: Urine glucose detectionon Glucose Ql (U) Normal mg/dl Normal [facility] Work Phone: Urine leukocyte esterase det ection by dipstickon 06-05-2022 Leukocyte esterase Test strip Ql (U) 25 /ul Negative [facility] Work Phone: Urine pHon 06-05-2022 pH (U) 8.0 [pH] 5.0 - 8.0 [facility] Work Phone: Urine sediment bacteria coun t by microscopy (number/high power field)on 06-05-2022 Bacteria LM.HPF (Urine sed) [#/Area] 0 /[HPF] None Seen [facility] Work Phone: Urine specific gravity measu rementon 06-05-2022 Specific gravity (U) [Rel density] 1.015 1.002-1.030 [facility] Work Phone: Urobilinogen Auto test strip Ql (U)on 06-05-2022 Urobilinogen Ql (U) Normal mg/dl Normal [facility] Work Phone: Absolute lymphocyte counton 03-12-2022 Lymphocytes Auto (Unsp spec) [#/Vol] 0.97 10*3/uL 0.83-4.51 [facility] Work Phone: Basophil percentageon 2021 Basophils/100 WBC (Bld) 1.1 % 0-1 [facility] Work Phone: [phone] Bilirubin [Mass/Vol] 0.40 mg/dL 0.20-1.00 [facility] Work Phone: [phone] Comment on above: For patients on eltr ombopag therapy, use of Dimension Dawes TBIL is not recommended. Chloride [Moles/Vol] 108 mmol/L 98-107 [facility] Work Phone: Eosinophils/100 WBC (Bld) 2.9 % 0-5 [facility] Work Phone: [phone] Glucose [Mass/Vol] 116 mg/dL 74-106 [facility] Work Phone: Comment on above: Fasting Glucose resu lt from 100 to 125 mg/dL suggests IMPAIRED HOMEOSTASIS per A.D.A. criteria. Neutrophils (Bld) [#/Vol] 2.3 10*3/uL 2.0-7.7 [facility] Work Phone: Neutrophils/100 WBC (Bld) 60.7 % 47-70 [facility] Work Phone: [phone] Potassium [Moles/Vol] 3.7 mmol/L 3.5-5.1 [facility] Work Phone: Protein [Mass/Vol] 7.2 g/dL 6.4-[facility] Work Phone: Sodium [Moles/Vol] 140 mmol/L 136-[facility] Work Phone: WBC (Bld) [#/Vol] 3.8 10*3/uL 4.4-11.0 [facility] Work Phone: Blood erythrocytes count (nu mber/volume)on 03-12-2022 RBC (Bld) [#/Vol] 3.65 10*6/uL 4.2-5.4 [facility] Phone: [phone] Blood hemoglobin measurement (mass/volume)on 03-12-2022 Hemoglobin (Bld) [Mass/Vol] 11.0 g/dL 12.0-15.0 [facility] Work Phone: Blood lymphocytes/100 leukoc yteson 03-12-2022 Lymphocytes/100 WBC (Bld) 25.5 % 19-41 [facility] Work Phone: Blood monocytes/100 leukocyt eson 03-12-2022 Monocytes/100 WBC (Bld) 9.5 % 0-10 [facility] Work Phone: Blood platelet mean volumeon 03-12-2022 Platelet mean volume (Bld) [Entitic vol] 11.0 fL 6.2-12.0 [facility] Work Phone: Determination of erythrocyte mean corpuscular volume (MCV)on 03-12-2022 MCV (RBC) [Entitic vol] 92.6 fL 81-99 [facility] Work Phone: Hematocrit Auto (Bld) [Volum e fraction]on 03-12-2022 Hematocrit (Bld) [Volume fraction] 33.8 % 37-47 [facility] Work Phone: [phone] Laboratory - Chemistry and C hemistry - challengeon 03-12-2022 ALP [Catalytic activity/Vol] 84 U/L 45-117 [facility] Work Phone: ALT [Catalytic activity/Vol] 31 U/L 13-56 [facility] Work Phone: [phone] CO2 [Moles/Vol] 25.0 mmol/L 21.0-32.0 [facility] Work Phone: [phone] Globulin (S) [Mass/Vol] 3.5 g/dL 2.2-4.2 [facility] Work Phone: [phone] Urea nitrogen/Creatinine [Mass ratio] 15.7 mg/mg 10-20 [facility] Work Phone: Laboratory - Hematology and Cell countson 03-12-2022 Erythrocyte distribution width (RBC) [Entitic vol] 41.8 fL 35.1-43.9 [facility] Work Phone: [phone] Erythrocyte distribution width (RBC) [Ratio] 12.2 % 11.6-14.6 [facility] Work Phone: [phone] Immature granulocytes/100 WBC (Bld) 0.300 % 0.0-0.9 [facility] Work Phone: [phone] Comment on above: IG% - Immature Granu locytes (promyelocytes, myelocytes and metamyelocytes) > 1% indicates that a LEFT SHIFT is Present. MCH (RBC) [Entitic mass] 30.1 pg 27.0-32.0 [facility] Work Phone: [phone] Nucleated RBC/100 WBC (Bld) [Ratio] 0 % 0-5 [facility] Work Phone: [phone] MCHC Auto (RBC) [Mass/Vol]on 03-12-2022 MCHC (RBC) [Mass/Vol] 32.5 g/dL 32-36 [facility] Work Phone: [phone] No Panel Informationon 03-12 CA 125 Antigen 13.5 U/mL 0.0-38.1 [facility] Work Phone: [phone] Comment on above: [facility] El ectrochemiluminescence Immunoassay(ECLIA)Values obtained with different assay methods or kits cannotbe used interchangeably. Results cannot be interpreted asabsolute evidence of the presence or absence of malignantdisease.Performed at: [facility] [address] [id number] Director: Guero Smyth PhD, Phone: [phone] Estimated Creatinine Clearance Calc 48.64 ml/min [facility] Work Phone: Estimated GFR (MDRD) Amer 85 mL/min >60 [facility] Work Phone: Comment on above: GFR Calc Estimated GFR (MDRD) Non-Af Amer 71 mL/min >60 [facility] Work Phone: Comment on above: Non- GFR Calc Platelets bldon 03-12-2022 Platelets (Bld) [#/Vol] 212 10*3/uL 150-450 [facility] Work Phone: Serum or plasma albumin charlene urement (mass/volume)on 03-12-2022 Albumin [Mass/Vol] 3.7 g/dL 3.2-5.0 [facility] Work Phone: Serum or plasma albumin/glob ulin mass ratioon 03-12-2022 Albumin/Globulin [Mass ratio] 1.1 {ratio} 0.9-2.4 [facility] Work Phone: Serum or plasma calcium charlene urement (mass/volume)on 03-12-2022 Calcium [Mass/Vol] 9.5 mg/dL 8.5-10.1 [facility] Work Phone: Serum or plasma creatinine m easurement (mass/volume)on 03-12-2022 Creatinine [Mass/Vol] 0.83 mg/dL 0.55-1.02 [facility] Work Phone: Comment on above: The validity of the calculated GFR & GFRAA in patients over 70 years has not been determined. Clinical correlation is essential. Serum or plasma urea nitroge n measurement (mass/volume)on 03-12-2022 Urea nitrogen [Mass/Vol] 13 mg/dL 7-18 [facility] Work Phone: Thin prep Papanicolaou smear with manual screeningon 03-12-2022 Thin prep Papanicolaou smear with manual screening 23 U/L 15-37 [facility] Work Phone: Thin prep Papanicolaou smear with manual screening 7 5-15 [facility] Work Phone: Thin prep Papanicolaou smear with manual screening 251 U/L 84-246 [facility] Work Phone: CNOVon 10-08-2021 CNOV Office Visit ([facility]WSTR ) -- LUZ CLANCY Taiwo ([id number]) 1940 F Date Time Provider Department 10/08/21 7:30 AM SEBLE VANN [facility] During your visit today, we recorded the following information about you: Temperature Pulse Respiration Blood pressure 96.7 degrees 88/minute 16/minute 182/94 Weight 58.1 kg Seble Vann APRN.CNP 10/08/2021 8:25 AM Signed This note was created using [employer]est[employer]. Subjective Luz Clancy is a 81 year old female. 81 year old female with PMH GERD presents with complaints of COVID concern. Acute onset of symptoms yesterday. +chills Denies SOB. Denies URI sx. Denies fever or chills. Denies N/V/D. Denies skin rash or lesions. Has had x 2 COVID She had + exposure to COVID on [place]. She is accompanied by her daughter and son in law who are here for same. The history is provided by the patient. No english as a second language instructor was used. Illness The current episode started [...] Laterality Date - COLONOSCOP W/ OR W/O [facility] SPEC 06/17/2006 Colonoscopy - COLONOSCOP W/ OR W/O [facility] SPEC 07/15/11 - COLONOSCOP W/ OR W/O [facility] SPEC 07/17/16 Colonoscopy (needs MAC next [...] Pulses: No (more content not included)... Normal [facility] COVID w FLU A+B Routon 10-08 Influenza A PCR Negative Normal [facility] Comment on above: Performed By: #### C OVFLU #### [facility] [employer] [address] [address] Influenza B PCR Negative Normal [facility] Comment on above: Performed By: #### C OVFLU #### [facility] [employer] [address] [place], [place] [address] SARS-CoV-2 (COVID-19) RNA NAKUL+probe Ql (Unsp spec) UPPER RESPIRATORY TRACT SWAB Normal [facility] Comment on above: Performed By: #### C OVFLU #### [facility] [employer] [address] [place], [place] [address] SARS-CoV-2 (COVID-19) RNA NAKUL+probe Ql (Unsp spec) Negative for COVID19 (SARS CoV2) by RT-PCR or equivalent method. Normal Negative for COVID19 (SARS CoV2) by RT-PCR or equivalent method. [facility] Comment on above: Result Comment: This test was developed and its performance characteristics determined by [facility] [place]. This test has been authorized by FDA under an Emergency Use Authorization (EUA). This test has been validated in accordance with the FDA's Guidance Document Policy for Diagnostics Testing in Laboratories Certified to Perform High Complexity Testing under CLIA prior to Emergency use Authorization for Coronavirus Disease 2019 during the Public Health Emergency issued on December 10, 2019. Test performed by [facility], [facility] [place], [address] [place] [address]. Performed By: #### C OVFLU #### [facility] [address] [place] [address] Erythrocyte distribution wid th standard deviationon 03-16-2019 Erythrocyte distribution width (RBC) [Entitic vol] 40.4 fL 35.1-43.9 [facility] - Hematology and Cell countson 03-16-2019 Erythrocyte distribution width (RBC) [Ratio] 12.1 % 11.6-14.6 [facility] Total cell counton 9 Cells counted Molgen (Bld/Tiss) [#] Not Reportable [facility] Laboratory - Coagulationon 10-24-2016 aPTT Coag (Bld) [Time] 25.9 s 24.1-36.2 [facility] INR Coag (Bld) [Relative time] 0.9 {INR} [facility] PT Coag (PPP) [Time] 11.4 s Low 11.7-14.9 [facility] Lab Report: CBC W/Diff, Auto matedon 02-11-2017 Basophils/100 leukocytes 0.7 % Invalid Interpretation Code 0-1 [facility] Work Phone: Eosinophils/100 leukocytes 2.1 % Invalid Interpretation Code 0-5 [facility] Work Phone: Erythrocytes (RBC) 4.35 10*6/uL Invalid Interpretation Code 4.2-5.4 [facility] Work Phone: Hematocrit (HCT) 42.1 % Invalid Interpretation Code 37-47 [facility] Work Phone: Hemoglobin (HGB) 13.5 g/dL Invalid Interpretation Code 12.0-15.0 [facility] Work Phone: immature granulocytes, percentage of total cells, blood 0.000 % Invalid Interpretation Code 0.0-0.9 [facility] Work Phone: Lymphocytes 1.03 X10 3/UL Invalid Interpretation Code 0.83-4.51 [facility] Work Phone: Lymphocytes/100 leukocytes 23.5 % Invalid Interpretation Code 19-41 [facility] Work Phone: MCH 31.0 pg Invalid Interpretation Code 27.0-32.0 [facility] Work Phone: MCHC 32.1 G/GL Invalid Interpretation Code 32-36 [facility] Work Phone: MCV 96.8 fL Invalid Interpretation Code 81-99 [facility] Work Phone: Monocytes/100 leukocytes 9.6 % Invalid Interpretation Code 0-10 [facility] Work Phone: neutrophil count, blood 2.8 X10 3/UL Invalid Interpretation Code 2.0-7.7 [facility] Work Phone: Neutrophils/100 leukocytes 64.1 % Invalid Interpretation Code 47-70 [facility] Work Phone: Platelets 249 10*3/mm3 Invalid Interpretation Code 150-450 [facility] Work Phone: PMV by Kandis 11.0 fL Invalid Interpretation Code 6.2-12.0 [facility] Work Phone: RDW-CA 12.4 % Invalid Interpretation Code 11.6-14.6 [facility] Work Phone: [phone] red blood cell distribution width, size density 44.0 fL High 35.1-43.9 [facility] Work Phone: WBC (Leukocytes) 4.4 10*3/uL Invalid Interpretation Code 4.4-11.0 [facility] Work Phone: Lab Report: [facility] 02-11-2017 Alanine aminotransferase (ALT) 30 U/L Invalid Interpretation Code 12-78 [facility] Work Phone: Albumin 4.6 g/dL Invalid Interpretation Code 3.4-5.0 [facility] Work Phone: Albumin/Globulin Ratio 1.1 {ratio} Invalid Interpretation Code 0.9-2.4 [facility] Work Phone: Alkaline phosphatase (ALP) 73 U/L Invalid Interpretation Code 45-117 [facility] Work Phone: Anion gap 10 mmol/L Invalid Interpretation Code 5-15 [facility] Work Phone: Aspartate aminotransferase (AST) 23 U/L Invalid Interpretation Code 15-37 [facility] Work Phone: Bilirubin (total) 0.40 mg/dL Invalid Interpretation Code 0.20-1.00 [facility] Work Phone: BUN/Creatinine Ratio 19.1 RATIO Invalid Interpretation Code 10-20 [facility] Work Phone: Calcium 9.4 mg/dL Invalid Interpretation Code 8.5-10.1 [facility] Work Phone: Chloride 103 mmol/L Invalid Interpretation Code 98-107 [facility] Work Phone: CO2 26.0 mmol/L Invalid Interpretation Code 21.0-32.0 [facility] Work Phone: Creatinine 0.84 mg/dL Invalid Interpretation Code 0.55-1.02 [facility] Work Phone: eGFR (non-black) 85 mL/min/{1.73_m2} Invalid Interpretation Code >60 [facility] Work Phone: eGFR (non-black) 70 mL/min/{1.73_m2} Invalid Interpretation Code >60 [facility] Work Phone: Globulin 4.1 g/dL High 2.3-3.5 [facility] Work Phone: Glucose 89 mg/dL Invalid Interpretation Code 70-110 [facility] Work Phone: Potassium 3.7 mmol/L Invalid Interpretation Code 3.5-5.1 [facility] Work Phone: Protein 8.7 g/dL High 6.4-8.2 [facility] Work Phone: Sodium 139 mmol/L Invalid Interpretation Code 136-145 [facility] Work Phone: Urea nitrogen 16 mg/dL Invalid Interpretation Code 7-18 [facility] Work Phone: Lab Report: LDHon 02-11-2017 lactate dehydrogenase - serum 285 U/L High 84-246 [facility] Work Phone: Lab Report: Magnesiumon 05-0 Magnesium 2.5 mg/dL High 1.8-2.4 [facility] Work Phone: Lab Report: Uric Acidon 05-0 Urate 3.7 mg/dL Invalid Interpretation Code 2.6-6.0 [facility] Work Phone: Office Visit: 6 mo f/u - PHQ 9 Completeon 08-14-2016 Adolescent depression screening assessment Adolescent depression screening assessment Invalid Interpretation Code [facility] Work Phone: Adult depression screening assessment Adult depression screening assessment Invalid Interpretation Code [facility] Work Phone: Documentation of current medications (procedure) Done Invalid Interpretation Code [facility] Work Phone: Tobacco smoking status NHIS Never Invalid Interpretation Code [facility] Work Phone: Tobacco use CPHS Never smoker Invalid Interpretation Code [facility] Phone: Office Visit: 6 mo f/u - PHQ 9 Completeon 07-16-2016 Colonoscopy (procedure) Colonoscopy (procedure) Invalid Interpretation Code [facility] Work Phone: Office Visit: 6 mo f/u - PHQ 9 Completeon 10-15-2015 Breast Mammogram screening Normal Bilateral Invalid Interpretation Code [facility] Work Phone: Lab Report: Cancer Antigen 1 25on 07-27-2015 cancer 125 antigen 11.2 U/mL Invalid Interpretation Code 0.0-34.0 [facility] Work Phone: Lab Report: CBC W/Diff, Auto - EPLAB Onlyon 02-15-2015 Absolute Neutrophil count 1.5 X10 3/UL Low 2.0-7.7 [facility] Work Phone: Lab Report: Comprehensive Me tabolic Profilon 11-14-2014 GE use only - for Link[employer] import when terms are not otherwise specified 66 U/L Invalid Interpretation Code 50-136 [facility] Work Phone: Lab Report: LDHon 11-14-2014 Lactate dehydrogenase (LDH) 188 U/L Invalid Interpretation Code 87-241 [facility] Work Phone: Lab Report: Thyroid Stim Hor salvador (TSH)on 11-14-2014 Thyroid stimulating hormone (TSH) 4.78 u[iU]/mL Critically high 0.358-3.74 [facility] Work Phone: Lab Report: B12on 01-16-2014 vitamin b12, serum 424 pg/mL Normal 211-911 [facility] Work Phone: Lab Report: FOLon 01-16-2014 Folate 55.10 ng/mL High 3.1-17.5 [facility] Work Phone: Lab Report: LIVERon 01-17-20 14 Bilirubin (direct) 0.08 mg/dL Normal 0.00-0.30 [facility] Work Phone: Office Visit: 6 mo f/u - PHQ 9 Completeon 08-12-2006 General categories [interpretation] of Cervical or vaginal smear or scraping by Cyto stain Normal Invalid Interpretation Code [facility] Work Phone: Culture, urine Bacteria identified Cx Nom (U) Positive [facility] Work Phone: Laboratory - Microbiology an d Antimicrobial susceptibility Bacteria identified Cx Nom (Bld) No growth in [address] [facility] Work Phone: Vital Signs Date Time Vital Sign Value Performing Clinician Arsenio shearery 05-16-2025 08:46-0400 Body mass index (BMI) [Ratio] 20.7 kg/m2 Dr. Paola Corona MD Work Phone: [facility] 05-16-2025 08:46-0400 Body weight 56.[address] Paola Corona MD Work Phone: [facility] 05-16-2025 08:46-0400 Diastolic blood pressure 96 mm[Hg] Dr. Paola Corona MD Work Phone: [facility] 05-16-2025 08:46-0400 Heart rate 80 /min Dr. Paola Corona MD Work Phone: [facility] 05-16-2025 08:46-0400 Respiratory rate 18 /min Dr. Paola Corona MD Work Phone: [facility] 05-16-2025 08:46-0400 SaO2% (BldA) [Mass fraction] 98 % Dr. Paola Corona MD Work Phone: [facility] 05-16-2025 08:46-0400 Systolic blood pressure 167 mm[Hg] Dr. Paola Corona MD Work Phone: [facility] 05-10-2025 13:11-0400 Diastolic blood pressure 63 mm[Hg] Dr. Paola Corona MD Work Phone: [facility] 05-10-2025 13:11-0400 Heart rate 72 /min Dr. Paola Corona MD Work Phone: [facility] 05-10-2025 13:11-0400 Respiratory rate 18 /min Dr. Paola Corona MD Work Phone: [facility] 05-10-2025 13:11-0400 SaO2% (BldA) [Mass fraction] 100 % Dr. Paola Corona MD Work Phone: [facility] 05-10-2025 13:11-0400 Systolic blood pressure 123 mm[Hg] Dr. Paola Corona MD Work Phone: 4(645)860-142738 [place] [address] 05-10-2025 08:17-0400 Body height 165.[address] Paola Corona MD Work Phone: 0(536)399-179948 [address] 05-10-2025 08:17-0400 Body mass index (BMI) [Ratio] 20.5 kg/m2 Dr. Paola Corona MD Work Phone: 8(630)783-698948 [address] 05-10-2025 08:17-0400 Body temperature 98.6 [degF] Dr. Paola Corona MD Work Phone: 0(887)398-881015 [place] [address] 05-10-2025 08:17-0400 Body weight 55.[address] Paola Corona MD Work Phone: 3(677)517-526315 [place] [address] 04-24-2025 15:53-0400 Body height 165.[address] Paola Corona MD Work Phone: 4(646)339-385015 [place] [address] 04-24-2025 15:53-0400 Body mass index (BMI) [Ratio] 20.9 kg/m2 Dr. Paola Corona MD Work Phone: 5(136)811-578815 [place] [address] 04-24-2025 15:53-0400 Body temperature 98.8 [degF] Dr. Paola Corona MD Work Phone: 2(773)341-639815 [place] [address] 04-24-2025 15:53-0400 Body weight 57.[address] Paola Corona MD Work Phone: 8(894)731-030438 [place] [address] 04-24-2025 15:53-0400 Diastolic blood pressure 81 mm[Hg] Dr. Paola Corona MD Work Phone: 2(149)924-859615 [place] [address] 04-24-2025 15:53-0400 Heart rate 75 /min Dr. Paola Corona MD Work Phone: 4(394)572-541948 [address] 04-24-2025 15:53-0400 Respiratory rate 18 /min Dr. Paola Corona MD Work Phone: [facility] 04-24-2025 15:53-0400 SaO2% (BldA) [Mass fraction] 98 % Dr. Paola Corona MD Work Phone: [facility] 04-24-2025 15:53-0400 Systolic blood pressure 180 mm[Hg] Dr. Paola Corona MD Work Phone: 3(890)398-277938 [place] [address] 04-12-2025 14:56-0400 Body height 165.[address] Paola Corona MD Work Phone: 1(670)887-018048 [address] 04-12-2025 14:56-0400 Body mass index (BMI) [Ratio] 21 kg/m2 Dr. Paola Corona MD Work Phone: 3(040)889-059448 [address] 04-12-2025 14:56-0400 Body weight 57.[address] Paola Corona MD Work Phone: 5(286)678-488538 [place] [address] 04-12-2025 14:56-0400 Diastolic blood pressure 99 mm[Hg] Dr. Paola Corona MD Work Phone: 0(835)759-287238 [place] [address] 04-12-2025 14:56-0400 Heart rate 81 /min Dr. Paola Corona MD Work Phone: 1(457)958-457938 [place] [address] 04-12-2025 14:56-0400 Respiratory rate 15 /min Dr. Paola Corona MD Work Phone: 2(966)353-146438 [place] [address] 04-12-2025 14:56-0400 SaO2% (BldA) [Mass fraction] 99 % Dr. Paola Corona MD Work Phone: [facility] 04-12-2025 14:56-0400 Systolic blood pressure 171 mm[Hg] Dr. Paola Corona MD Work Phone: 8(793)620-395438 [place] [address] 01-11-2025 13:26-0400 Body mass index (BMI) [Ratio] 22.1 kg/m2 Dr. Paola Corona MD Work Phone: 3(945)397-067438 [place] [address] 01-11-2025 13:26-0400 Body weight 60.[address] Paola Corona MD Work Phone: [facility] 01-11-2025 13:26-0400 Diastolic blood pressure 99 mm[Hg] Dr. Paola Corona MD Work Phone: [facility] 01-11-2025 13:26-0400 Heart rate 99 /min Dr. Paola Corona MD Work Phone: 8(506)895-108038 [place] [address] 01-11-2025 13:26-0400 Respiratory rate 16 /min Dr. Paola Corona MD Work Phone: 4(429)999-706338 [place] [address] 01-11-2025 13:26-0400 Systolic blood pressure 177 mm[Hg] Dr. Paola Corona MD Work Phone: 8(770)351-278548 [address] 10-21-2024 06:35-0500 Body temperature 97.9 [degF] Dr. Paola Corona MD Work Phone: 4(669)572-658638 [place] [address] 10-21-2024 06:35-0500 Diastolic blood pressure 76 mm[Hg] Dr. Paola Corona MD Work Phone: 7(037)556-416738 [place] [address] 10-21-2024 06:35-0500 Heart rate 116 /min Dr. Paola Corona MD Work Phone: 5(281)236-322338 [place] [address] 10-21-2024 06:35-0500 Respiratory rate 16 /min Dr. Paola Corona MD Work Phone: 4(497)565-273938 [place] [address] 10-21-2024 06:35-0500 SaO2% (BldA) [Mass fraction] 97 % Dr. Paola Corona MD Work Phone: 0(097)642-053438 [place] [address] 10-21-2024 06:35-0500 Systolic blood pressure 160 mm[Hg] Dr. Paola Corona MD Work Phone: [facility] 02-04-2024 06:47-0400 Body temperature 97.8 [degF] Dr. Paola Corona Work Phone: [facility] 02-04-2024 06:47-0400 Diastolic blood pressure 74 mm[Hg] Dr. Paola Corona Work Phone: [facility] 02-04-2024 06:47-0400 Heart rate 91 /min Dr. Paola Corona Work Phone: [facility] 02-04-2024 06:47-0400 Respiratory rate 17 /min Dr. Paola Corona Work Phone: [facility] 02-04-2024 06:47-0400 SaO2% (BldA) [Mass fraction] 99 % Dr. Paola Corona Work Phone: [facility] 02-04-2024 06:47-0400 Systolic blood pressure 158 mm[Hg] Dr. Paola Corona Work Phone: [facility] 12-26-2023 08:05-0400 Body temperature 98.1 [degF] Dr. Paola Corona Work Phone: [facility] 12-26-2023 08:05-0400 Diastolic blood pressure 84 mm[Hg] Dr. Paola Corona Work Phone: 4(677)741-354738 [place] [address] 12-26-2023 08:05-0400 Heart rate 101 /min Dr. Paola Corona Work Phone: [facility] 12-26-2023 08:05-0400 Respiratory rate 14 /min Dr. Paola Corona Work Phone: [facility] 12-26-2023 08:05-0400 SaO2% (BldA) [Mass fraction] 98 % Dr. Paola Corona Work Phone: [facility] 12-26-2023 08:05-0400 Systolic blood pressure 140 mm[Hg] Dr. Paola Corona Work Phone: [facility] 12-10-2023 07:08-0500 Body height 165.[address] Paola Corona Work Phone: [facility] 12-10-2023 07:08-0500 Body mass index (BMI) [Ratio] 21.9 kg/m2 Dr. Paola Corona Work Phone: [facility] 12-10-2023 07:08-0500 Body temperature 98 [degF] Dr. Paola Corona Work Phone: [facility] 12-10-2023 07:08-0500 Body weight 59.[address] Paola Corona Work Phone: [facility] 12-10-2023 07:08-0500 Diastolic blood pressure 80 mm[Hg] Dr. Paola Corona Work Phone: [facility] 12-10-2023 07:08-0500 Heart rate 97 /min Dr. Paola Corona Work Phone: [facility] 12-10-2023 07:08-0500 Respiratory rate 12 /min Dr. Paola Corona Work Phone: [facility] 12-10-2023 07:08-0500 SaO2% (BldA) [Mass fraction] 96 % Dr. Paola Corona Work Phone: [facility] 12-10-2023 07:08-0500 Systolic blood pressure 162 mm[Hg] Dr. Paola Corona Work Phone: [facility] 03-23-2023 13:28-0400 Body height 165.[address] Paola Corona Work Phone: [facility] 03-23-2023 13:28-0400 Body mass index (BMI) [Ratio] 21.6 kg/m2 Dr. Paola Corona Work Phone: [facility] 03-23-2023 13:28-0400 Body temperature 97.3 [degF] Dr. Paola Corona Work Phone: [facility] 03-23-2023 13:28-0400 Body weight 59.[address] Paola Corona Work Phone: [facility] 03-23-2023 13:28-0400 Diastolic blood pressure 81 mm[Hg] Dr. Paola Corona Work Phone: [facility] 03-23-2023 13:28-0400 Heart rate 87 /min Dr. Paola Corona Work Phone: [facility] 03-23-2023 13:28-0400 Respiratory rate 16 /min Dr. Paola Corona Work Phone: [facility] 03-23-2023 13:28-0400 SaO2% (BldA) [Mass fraction] 99 % Dr. Paola Corona Work Phone: [facility] 03-23-2023 13:28-0400 Systolic blood pressure 175 mm[Hg] Dr. Paola Corona Work Phone: [facility] 06-05-2022 10:31-0400 Body temperature 98.6 [degF] Dr. Paola Corona Work Phone: [facility] Work Phone: 06-05-2022 10:29-0400 Diastolic blood pressure 84 mm[Hg] Dr. Paola Corona Work Phone: [facility] Work Phone: 06-05-2022 10:29-0400 Heart rate 83 /min Dr. Paola Corona Work Phone: [facility] Work Phone: 06-05-2022 10:29-0400 Respiratory rate 18 /min Dr. Paola Corona Work Phone: [facility] Work Phone: 06-05-2022 10:29-0400 SaO2% (BldA) [Mass fraction] 96 % Dr. Paola Corona Work Phone: [facility] Work Phone: 06-05-2022 10:29-0400 Systolic blood pressure 144 mm[Hg] Dr. Paola Corona Work Phone: [facility] Work Phone: 06-05-2022 07:50-0400 Body height 165.[address] Paola Corona Work Phone: [facility] Work Phone: 06-05-2022 07:50-0400 Body mass index (BMI) [Ratio] 24.7 kg/m2 Dr. Paola Corona Work Phone: [facility] Work Phone: 06-05-2022 07:50-0400 Body weight 67.[address] Paola Corona Work Phone: [facility] Work Phone: 03-24-2022 15:22-0400 Body height 162.[address] Paola Corona Work Phone: [facility] Work Phone: 03-24-2022 15:22-0400 Body mass index (BMI) [Ratio] 23.1 kg/m2 Dr. Paola Corona Work Phone: [facility] Work Phone: 03-24-2022 15:22-0400 Body temperature 98.4 [degF] Dr. Paola Corona Work Phone: [facility] Work Phone: 03-24-2022 15:22-0400 Body weight 61.[address] Paola Corona Work Phone: [facility] Work Phone: 03-24-2022 15:22-0400 Diastolic blood pressure 96 mm[Hg] Dr. Paola Corona Work Phone: [facility] Work Phone: 03-24-2022 15:22-0400 Heart rate 82 /min Dr. Paola Corona Work Phone: [facility] Work Phone: 03-24-2022 15:22-0400 Respiratory rate 15 /min Dr. Paola Corona Work Phone: [facility] Work Phone: 03-24-2022 15:22-0400 SaO2% (BldA) [Mass fraction] 97 % Dr. Paola Corona Work Phone: [facility] Work Phone: 03-24-2022 15:22-0400 Systolic blood pressure 182 mm[Hg] Dr. Paola Corona Work Phone: [facility] Work Phone: 02-16-2022 13:58-0400 Diastolic blood pressure 85 mm[Hg] [facility] Work Phone: 02-16-2022 13:58-0400 Heart rate 75 /min [facility] Work Phone: 02-16-2022 13:58-0400 SaO2% (BldA) [Mass fraction] 98 % [facility] Work Phone: 02-16-2022 13:58-0400 Systolic blood pressure 186 mm[Hg] [facility] Work Phone: 02-16-2022 12:46-0400 Body height 162.56 cm [facility] Work Phone: 02-16-2022 12:46-0400 Body mass index (BMI) [Ratio] 22.3 kg/m2 [facility] Work Phone: 02-16-2022 12:46-0400 Body temperature 96.8 [degF] [facility] Work Phone: 02-16-2022 12:46-0400 Body weight 58.96 kg [facility] Work Phone: 02-16-2022 12:46-0400 Respiratory rate 18 /min [facility] Work Phone: 03-22-2020 14:59-0400 Body mass index (BMI) [Ratio] 21.8 kg/m2 Dr. Paola Corona Work Phone: [facility] 03-22-2020 14:59-0400 Body temperature 97.6 [degF] Dr. Paola Corona Work Phone: [facility] 03-22-2020 14:59-0400 Body weight 59.[address] Paola Corona Work Phone: [facility] 03-22-2020 14:59-0400 Diastolic blood pressure 82 mm[Hg] Dr. Paola Corona Work Phone: [facility] 03-22-2020 14:59-0400 Heart rate 74 /min Dr. Paola Corona Work Phone: [facility] 03-22-2020 14:59-0400 Respiratory rate 16 /min Dr. Paola Corona Work Phone: [facility] 03-22-2020 14:59-0400 SaO2% (BldA) [Mass fraction] 98 % Dr. Paola Corona Work Phone: [facility] 03-22-2020 14:59-0400 Systolic blood pressure 162 mm[Hg] Dr. Paola Corona Work Phone: [facility] 08-14-2016 13:23-0400 BMI (Body Mass Index) 22.1 kg/m2 Carlos Bernal MD [facility]ical Oncology Work Phone: 08-14-2016 13:23-0400 Body [...] 13:23-040 Weight 59.33 kg Carlos Bernal MD [facility] Work Phone: 08-14-2016 13:23040 Weight 59.45 kg Carlos Bernal MD [facility] Work Phone: 11-21-2014 13:0500 Height 163.83 cm Carlos Bernal MD [facility] Work Phone: Encounters Encounter Date Encounter Type Care Provider Facility Start: 05-16-2025 End: 05-16-2025 Patient encounter procedure Laney HUNT -[facility] Work Phone: Start: 05-16-2025 End: 05-16-[address] Paola Corona MD Work Phone: -[facility] Start: 05-10-2025 Encounter for other preprocedural examination [facility] Start: 05-10-[address] Carlos Bernal MD -[facility] Work Phone: Start: 05-10-2025 ambulatory [facility] Facility:[facility] Start: 05-02-2025 ambulatory [facility] Facility:[facility] Start: 05-02-[address] Carlos Bernal MD [facility] Start: 04-24-2025 End: 04-24-[address] Carlos Bernal MD -[facility] Work Phone: Start: 04-24-2025 End: 04-24-[address] Paola Corona MD Work Phone: [facility] Start: 04-17-2025 End: 04-17-[address] Paola Corona MD Work Phone: -[facility] Start: 04-17-2025 End: 04-17-[address] Carlos Bernal MD -[facility] Work Phone: Start: 04-17-2025 End: 04-17-2025 ambulatory Lela Inter[employer] Facility:[facility] Start: 04-12-[address] Carlos Bernal MD -[facility] Start: 04-12-2025 End: 04-12-[address] Carlos Bernal MD -[facility] Work Phone: Start: 04-12-2025 End: 04-12-[address] Paola Corona MD Work Phone: [facility] Start: 02-27-2025 End: 02-27-2025 Patient encounter procedure Lela Inter[employer] [facility] Start: 02-27-2025 End: 02-27-2025 ambulatory Lela Interiano [employer] Facility:[facility] Start: 02-07-2025 ambulatory Riley Mckeon Facility:[facility] Start: 02-07-2025 Non-patient / Non-visit [facility] Jaren [facility] Start: 02-03-2025 ambulatory Riley Toureori Facility:[facility] Start: 02-03-2025 Non-patient / Non-visit [facility]. Jaren [facility] Start: 02-03-2025 End: 02-03-[address] Riley Mckeon MD -Cardiovascular Services Work Phone: Start: 02-03-2025 End: 02-03-2025 ambulatory Riley Toureori Facility:[facility] Start: 01-11-2025 End: 01-11-[address] Riley Mckeon MD -[facility] Work Phone: Start: 01-11-2025 End: 01-11-2025 ambulatory Rileyperla Mckeon Facility:[facility] Start: 12-20-2024 End: 12-20-[address] Paola Corona MD Work Phone: [facility] Work Phone: Start: 12-20-2024 End: 12-20-[address] Paola Corona MD -Laboratory, [facility] Start: 12-20-2024 End: 12-20-2024 ambulatory Paola Corona Facility:[facility] Start: 10-24-2024 End: 10-24-[address] Paola Corona MD -Laboratory, [facility] Start: 10-24-2024 End: 10-24-2024 ambulatory Paola Corona Facility:[facility] Start: 10-21-2024 End: 10-21-2024 Patient encounter procedure [facility] Work Phone: Start: 10-21-2024 End: 10-21-2024 ambulatory Eagle LUKE Facility:[facility] Start: 05-18-2024 End: 05-18-2024 ambulatory Paola Corona Facility:[facility] Start: 02-04-2024 End: 02-04-[address] Paola Corona Work Phone: [facility] Work Phone: Start: 02-04-2024 End: 02-04-[address] Paola Corona Work Phone: [facility]-Laboratory, Specimen Work Phone: Start: 02-04-2024 End: 02-04-[address] Paola Corona Work Phone: [facility] Work Phone: Start: 12-26-2023 End: 12-26-[address] Paola Corona Work Phone: [facility] Work Phone: Start: 12-10-2023 End: 12-10-[address] Paola Corona Work Phone: [facility] Work Phone: Start: 04-20-2023 End: 04-20-[address] Paola Corona Work Phone: [facility] Work Phone: Start: 04-20-2023 End: 04-20-[address] Paola Corona Work Phone: [facility]-Outpatient Breast Imaging Work Phone: Start: 03-30-[address] Paola dent Work Phone: [facility] Work Phone: Start: 03-23-2023 End: 03-23-[address] Paola Corona Work Phone: [facility] Work Phone: Start: 03-16-2023 End: 03-16-[address] [facility] Work Phone: Start: 03-16-2023 End: 03-16-[address] [facility]-Laboratory Start: 06-26-2022 End: 06-26-[address] Paola Corona Work Phone: [facility] Work Phone: Start: 06-26-2022 End: 06-26-[address] Paola Corona Work Phone: [facility]-Nuclear Medicine, [facility] Start: 06-13-2022 End: 06-13-[address] Paola Corona Work Phone: [facility] Work Phone: Start: 06-13-2022 End: 06-13-[address] Paola Corona Work Phone: [facility]-Radiology, [place] Start: 06-05-2022 End: 06-05-2022 Emergency department patient visit Dr. Paola Corona Work Phone: [facility]-Emergency Department Start: 04-07-2022 End: 04-07-[address] Paola Corona Work Phone: [facility]-Outpatient Breast Imaging Start: 03-24-2022 End: 03-24-[address] Paola Corona Work Phone: [facility] Start: 03-12-[address] Paola dent Work Phone: [facility] Start: 02-16-2022 End: 02-16-2022 [facility] Date Procedure Procedure Detail Performing [...] Author Start: 05-10-2025 Following clinical pathway protocol [facility] Start: 05-10-2025 Catheterization of vein [facility] Start: 05-10-[address] [facility] Start: 05-10-[address] [facility] Start: 05-10-2025 Vital signs measurements [facility] Start: 06-05-2022 End: 06-05-2022 [facility] Work Phone: Start: 06-05-[address] [facility] Work Phone: Start: 02-18-2017 End: 08-14-2016 *CBC w/Diff - oncology ONLY [facility] Work Phone: Start: 02-18-2017 End: 02-20-2017 *CMP Complete Metabolic Panel *CMP Complete Metabolic Panel [facility] Work Phone: Start: 02-18-2017 End: 02-20-2017 Lactate dehydrogenase (LDH) *LDH -LDH (Lactate Dehydrogenase) [facility] Work Phone: Start: 02-18-2017 End: 02-20-2017 Magnesium *Magnesium [facility] Work Phone: Start: 02-18-2017 End: 02-20-2017 Urate *Uric Acid Blood [facility] Work Phone: Start: 08-14-2016 End: 02-14-2016 *CBC with Differential *CBC with Differential [facility] Work Phone: Start: 08-14-2016 End: 02-14-2016 *CMP Complete Metabolic Panel *CMP Complete Metabolic Panel [facility] Work Phone: Start: 08-14-2016 End: 02-14-2016 Lactate dehydrogenase (LDH) *LDH -LDH (Lactate Dehydrogenase) [facility] Work Phone: Start: 08-14-2016 End: 02-14-2016 Urate *Uric Acid Blood [facility] Work Phone: Start: 02-14-2016 End: 02-07-2016 *CBC with Differential *CBC with Differential [facility] Work Phone: Start: 02-14-2016 End: 02-07-2016 *CMP Complete Metabolic Panel *CMP Complete Metabolic Panel [facility] Work Phone: Start: 02-14-2016 End: 02-07-2016 Lactate dehydrogenase (LDH) *LDH -LDH (Lactate Dehydrogenase) [facility] Work Phone: Start: 02-14-2016 End: 02-07-2016 Magnesium *Magnesium [facility] Work Phone: Start: 02-14-2016 End: 02-07-2016 Urate *Uric Acid Blood [facility] Work Phone: Start: 02-07-2016 End: 02-14-2016 Ct abd&pelv 1+ section/regns CT Abdomen and pelvis; without and with contrast [facility] Work Phone: Start: 02-07-2016 End: [...] 125 *CA125 - Cancer Antigen (CA) 125 [facility] Work Phone: Start: 07-26-2015 End: 07-26-2015 Lactate dehydrogenase (LDH) *LDH -LDH (Lactate Dehydrogenase) [facility] Work Phone: Start: 07-26-2015 End: 07-26-2015 Urate *Uric Acid Blood [facility] Work Phone: Start: 02-15-2015 End: 02-14-2016 *CBC with Differential *CBC with Differential [facility] Work Phone: Start: 11-13-2014 End: 02-08-2015 *CBC with Differential *CBC with Differential [facility] Work Phone: Start: 11-13-2014 End: 02-08-2015 *CMP Complete Metabolic Panel *CMP Complete Metabolic Panel [facility] Work Phone: Start: 11-13-2014 End: 02-08-2015 Cancer antigen 125 *CA125 - Cancer Antigen (CA) 125 [facility] Work Phone: Start: 11-13-2014 End: 02-08-2015 Lactate dehydrogenase (LDH) *LDH -LDH (Lactate Dehydrogenase) [facility] Work Phone: Start: 11-13-2014 End: 02-08-2015 Thyroid stimulating hormone (TSH) *TSH [facility] Work Phone: Start: 11-13-2014 End: 02-08-2015 Urate *Uric Acid Blood [facility] Work Phone: Start: 04-04-2013 End: 04-04-2013 *MISC - Miscellaneous Lab Test #1 *MISC - Miscellaneous Lab Test #1 [facility] Work Phone: Start: 04-04-2013 End: 04-04-2013 Histoplasma capsulatum Ab [Presence] in Serum *HISTOPL Histoplasma Antibody [facility] Work Phone: Start: 04-04-2013 End: 04-04-2013 Mycobacterium tuberculosis tuberculin stimulated gamma interferon [Presence] in Blood *QFTBINC Quantiferon TB Gold [facility] Work Phone: Bacteria identified in Blood by Culture Blood Culture [facility] Work Phone: Bacteria identified in Urine by Culture Urine Culture [facility] Work Phone: Blood culture [facility] Work Phone: CA 125 measurement [facility] Work Phone: CA 125 measurement [facility] Cancer Ag 125 [Units/volume] in Serum or Plasma [facility] CBC W Auto Different ial panel - Blood [facility] Work Phone: CBC W Auto Different ial panel - Blood [facility] Comprehensive metabo lic 2000 panel - Serum or Plasma [facility] CT Abdomen and Pelvi s W contrast IV [facility] Work Phone: CT Abdomen and Pelvi s W contrast IV [facility] CT Chest W contrast IV [facility] Work Phone: CT Chest W contrast IV [facility] CT Chest W contrast IV [facility] Patient Education [facility] Work Phone: Patient referral [facility] Work Phone: Positron emission tomography with computed tomography [facility] Immunizations Immunization Date Immunization Notes Care Provider Fa cility 02-16-2022 tetanus toxoid, redu dee diphtheria toxoid, and acellular pertussis vaccine, adsorbed [facility] 02-14-2021 Covid (Pfizer) [facility] 01-24-2021 Covid (Pfizer) [facility] Payers Date Payer Category Payer Self-pay [id number] 2006 Medicare [id number] 2006 Unknown [id number] Unknown [id number] 2.16.8 [id number] Unknown [id number] 2.16.8 [id number] Unknown [id number] 2.16.8 [id number] Unknown [id number] 2.16.8 [id number] Unknown [id number] 2.16.8 [id number] Unknown [id number] 2.16.8 [id number] Unknown [id number] 2.16.8 [id number] Unknown [id number] 2.16.8 [id number] Unknown [id number] 2.16.8 [id number] Unknown [id number] 2.16.8 [id number] Unknown [id number] 2.16.8 [id number] Unknown [id number] 2.16.8 [id number] Unknown [id number] 2.16.8 [id number] Unknown [id number] 2.16.8 [id number] Unknown [id number] 2.16.8 [id number] Social History Date Type Detail Facility Start: 02-16-2022 End: 12-26-2023 Tobacco smoking status NHIS Unknown if ever smoked [facility] Start: 03-22-2020 Non-smoker [facility] Start: 1940 Sex Assigned At Female [facility] Start: 03-12-2024 End: 05-10-2025 Tobacco smoking status NHIS Never smoked tobacco (finding) [facility] Start: 12-28-2024 Sex Female (finding) [facility] Functional Status Date Assessment Result Facility 05-10-2025 Functional status [facility]room Privile[facility] Work Phone: Mental Status Date Assessment Result Facility 05-10-2025 Cognitive function Awake;Alert;Appropriat e [facility] Work Phone: Clinical Notes 10-08-2021 to 04-18-2025 Note Date & Type Note Facility 04-18-2025 Radiology Diagnostic study note [facility] Imaging Services [address] [place] [address] CT Chest, Abd, Pel w/Contrast MR#: [id number] Acct: [id number] Name: LUZ CLANCY Rep #: [id number] : 1940 F 85 From: Gregg Barba MD PCP: MARILEE Partida Status: REG CLI Study:CT Chest, Abd, Pel w/Contrast Date of E xam: 04/17/25 Exam# [id number] Ordering Dr: Scot Bernal MD PROCEDURE: CT [...] 3. Other findings as noted. Reading Location: [id number] CC: MARILEE Interiano; Dr. Carlos Bernal MD ~ Instructional Technology Specialist: Signed [facility] Work Phone: 04-12-2025 Evaluation note Diagnosis Onset [...] Uncontrolled hypertension acute May 16, 2025 11:32am [facility] Work Phone: 1(560) 146-181507-02-2025 [facility] [address] [place] [address] OFFICE VISIT Date of Service: 04/12/25 1455 MR#: [id number] Acct: [id number] Name: LUZ CLANCY Rep #: [id number] : 1940 From: Carlos Bernal MD Age/Sex: 85/F Location: [facility] [place] [facility] Status: Signed HPI Subjective Date of [...] is on observation, comes in for f/u. [facility] Medical History Tachycardia Diverticulosis Uncontrolled hypertension Cancer [...] applicable) CC: MARILEE Interiano ~ [facility]07-02-2025 Progress note Author Carlos Bernal [facility] Services Note Date/Time April 12, 2025 3:23p m [facility] [place] [address] OFFICE VISIT Date of Service: 04/12/25 1455 MR#: [id number] Acct: [id number] Name: LUZ CLANCY Rep #: [id number] : 1940 From: Carlos Bernal MD Age/Sex: 85/F Location: [facility] [place] [facility] Status: Signed HPI Subjective Date of [...] is on observation, comes [facility] History Tachycardia Diverticulosis Uncontrolled hypertension [...] MD Cosigner Signature: Date (if applicable) CC: [employer] Lela Interiano ~ [facility] Work Phone: 1(638) 303-772104-02-2025 Evaluation note* Diagnosis Onset Date Resolution Status Admit Date Tachycardia acute January 11 1:25pm History of endometrial cancer acute April 12, 2025 2:42pm Lung nodule, multiple chronic Apr 2:42pm Uterine cancer chronic April 12, 2025 2:42pm [facility] Work Phone: 1(870) 398-783104-02-2025 Evaluation note* Diagnosis Onset Date Resolution Status Admit Date Tachycardia acute January 11 1:25pm History of endometrial cancer acute April 12, 2025 2:42pm Lung nodule, multiple chronic Apr 2:42pm Uterine cancer chronic April 12, 2025 2:42pm Pulmonary nodule acute April 3:45pm [facility] Work Phone: 1(142) 173-178004-02-2025 Evaluation note* Diagnosis Onset Date Resolution Status [...] cancer chronic April 24, 2025 3:43pm [facility] Work Phone: 1(767) 666-892001-10-2025 Evaluation note* Diagnosis Onset Date Resolution Status Admit Date Strain of muscle at thorax level resolved October 21 6:19am [facility] Work Phone: 1(606) 133-306412-28-2021 NoteHNO ID: [id number] Author: Seble Vann APRN.[employer]IR[employer] SE[employer] UPHOLSTERER Service: ? Author Type: Nurse Practitioner Type: [...] history is provided by the patient. No english as a second language instructor was used. Illness The current episode started [...] Laterality Date - COLONOSCOP W/ OR W/O [facility] SPEC 06/17/2006 Colonoscopy - COLONOSCOP W/ OR W/O [facility] SPEC 07/15/11 - COLONOSCOP W/ OR W/O [facility] SPEC 07/17/16 Colonoscopy (needs MAC next [...] wall: No tenderness. Abd (more content not included)...[facility] Work Phone: Evaluation note* Diagnosis Onset Date Resolution Status History of endometrial cancer acute Lung nodule, multiple chroni c Uterine cancer chronic [facility] Work Phone: Evaluation note* Diagnosis Onset Date Resolution Status Acute sinusitis acute Cough acute PND (post-nasal drip) acute Increased urinary frequency acute [facility] Work Phone: Reason for referral (narrative)No reason for referral information availableW[facility] Work Phone: Summary Purpose Family History [...] February 16, 2022 12 :59pm Power of Sheltered Workshop Worker Yes February 16, 2022 12:59pm Advance Directive Response Recorded Date/ Time Name of Medical Power of Sheltered Workshop Worker Eva Mccallum February 16, 2022 12:59pm Advance Directives No August 3:25pm Living Will Yes February 16, 2022 12 :59pm Power of Sheltered Workshop Worker Yes February 16, 2022 12:59pm Advance Directive Response Recorded Date/ Time Advance Directives No November 7:49am Living Will Yes November 024 7:49am Power of Sheltered Workshop Worker Yes December 10, 2023 7:49am Advance Directive Response Recorded Date/ Time Advance Directives No November 7:49am Advance Directive Response Recorded Date/ Time Living Will No August 23 013 3:25pm Do you have a Healthcare Power of Sheltered Workshop Worker? No August 23, 2013 3:25pm Advance [...] section and content) DATE CREATED AUTHOR 12/31/2021 [facility] DATE CREATED AUTHOR CELESTINA TAYLOR 05/18/2025 [facility] Goals (unrecognized section and content) Goals [...] Status: Active Member Role Status Dates Dr. Paloa Corona MD Family Provider Active Dr. Paola [...] Status: Inactive Member Role Status Dates Dr. Poala Corona MD Primary Care Provider Active Start: December 20, 2024 End: December 20, 2024 Dr. Paola Corona MD Attending Provider Active Start: December 20, 2024 End: December 20, 2024 Dr. Paola Corona MD Referring Provider Active Start: December 20, 2024 End: December 20, 2024 Team Status: Active Member Role/Relationship Status Dates Lela Interiano [employer], [employer] Primary Care Provider Active Team Status: Inactive [...] Active Member Role/Relationship Status Dates Dr. Paola Croona MD Primary Care Provider Active Start: February 07, 2025 Dr. Riley Mckeon MD Attending Provider Active S tart: February 07, 2025 Dr. Riley Mckeon MD Referring Provider Active S tart: February 07, 2025 Dr. Riley Mckeon MD Other Provider Active Start : February 07, 2025 Team Status: Inactive Member Role/Relationship Status Dates Lelalita Interiano [employer], [employer] Primary Care Provider Active Start: February 27, 2025 End: February 27, 2025 Lelalita Interiano [employer], [employer] Attending Provider Active S tart: February 27, 2025 End: February 27, 2025 Lelalita Interiano [employer], [employer] Referring Provider Active S tart: February 27, 2025 End: February 27, 2025 Team Status: Inactive Member Role/Relationship Status Dates Dr. Carlos Bernal MD Attending Provider Active S tart: April 12, 2025 End: April 12, 2025 Lelalita Interiano [employer], [employer] Primary Care Provider Active Start: April 12, 2025 End: April 12, 2025 Lela Interiano [employer], [employer] Referring Provider Active S tart: April 12, [...] Inactive Member Role/Relationship Status Dates Lela Interiano [employer], [employer]-C Primary Care Provider Active Start: February 27, 2025 End: February 27, 2025 Lela Interiano [employer], [employer] Attending Provider Active S tart: February 27, 2025 End: February 27, 2025 Lela Interiano [employer], [employer] Referring Provider Active S tart: February 27, 2025 End: February 27, 2025 Team Status: Inactive Member Role/Relationship Status Dates Dr. Carlos Bernal MD Attending Provider Active S tart: April 12, 2025 End: April 12, 2025 Lela Interiano [employer], [employer] Primary Care Provider Active Start: April 12, 2025 End: April 12, 2025 Lela Interiano [employer], [employer]-C Referring Provider Active S tart: April 12, [...] Inactive Member Role/Relationship Status Dates Lela Interiano [employer], [employer] Primary Care Provider Active Start: April 17, 2025 End: April 17, 2025 Dr. Carlos Bernal MD Attending Provider Active S tart: April 17, 2025 End: April 17, 2025 Dr. Carlos Bernal MD Referring Provider Active S tart: April 17, 2025 End: April 17, 2025 Team Status: Inactive Member Role/Relationship Status Dates Lela Interiano [employer], [employer] Primary Care Provider Active Start: April 24, 2025 End: April 24, 2025 Lela Interiano [employer], [employer]-C Referring Provider Active S tart: April 24, [...] Inactive Member Role/Relationship Status Dates Lela Interiano [employer], [employer]-C Primary Care Provider Active Start: February 27, 2025 End: February 27, 2025 Lela Interiano [employer], [employer]-C Attending Provider Active S tart: February 27, 2025 End: February 27, 2025 Lela Interiano [employer], [employer]-C Referring Provider Active S tart: February 27, 2025 End: February 27, 2025 Team Status: Inactive Member Role/Relationship Status Dates Dr. Carlos Bernal MD Attending Provider Active S tart: April 12, 2025 End: April 12, 2025 Lela Interiano [employer], [employer] Primary Care Provider Active Start: April 12, 2025 End: April 12, 2025 Lela Interiano [employer], [employer]-C Referring Provider Active S tart: April 12, 2025 End: April 12, 2025 Team Status: Inactive Member Role/Relationship Status Dates Lela Interiano [employer], [employer]-C Primary Care Provider Active Start: April 17, 2025 End: April 17, 2025 Dr. Carlos Bernal MD Attending Provider Active S tart: April 17, 2025 End: April 17, 2025 Dr. Carlos Bernal MD Referring Provider Active S tart: April 17, 2025 End: April 17, 2025 Team Status: Inactive Member Role/Relationship Status Dates Lela Interiano [employer], [employer] Primary Care Provider Active Start: April 24, 2025 End: April 24, 2025 Lela Interiano NP, [employer] Referring Provider Active S tart: April 24, [...] Member Role/Relationship Status Dates Lela Interiano NP, [employer] Primary Care Provider Active Start: May 10, [...] End: May 16, 2025 Laney Ferreira NP, [employer] Attending Provider Active Start: May 16, 2025 End: May 16, 2025 Lela Interiano NP, [employer] Primary Care Provider Active Start: May 16, [...] BE BASED ON THE PRIMARY CLINICAL RECORDS. [facility]. provides no warranty or guarantee of the accuracy or completeness of information in this document.
[2025-05-18 22:52] LABS: Anion Gap 17 (5-15); BUN 11 mg/dL (4-19); BUN/Creat Ratio 19.6 RATIO (10-20); Calcium,Total 8.0 mg/dL (7.6-11.0); Carbon Dioxide 15.1 mmol/L (21.0-32.0); Chloride 102 mmol/L (98-108); Estimated Creatinine Clearance 47.10 ml/min (50-250); Glucose 148 mg/dL (70-99); Potassium 3.5 mmol/L (3.3-5.1)
[2025-05-18] MEDS: 0.9% Normal Saline (1000mL) 1,000 ML 75 ML IV (23:21)
[2025-05-18] MEDS: 0.9% Saline Lock 10 ML Syringe IV (23:21)
[2025-05-18] MEDS: Pantoprazole Sodium 40 MG in 0.9% Normal Saline (100mL MB+) 100 ML 330 MG IV (23:27)
[2025-05-19] VITALS (7 sets, daily range): BP systolic 125–162; BP diastolic 67–100; PULSE 71–106; RESP 16–18; TEMP 35.8–37.3; O2SAT 97–99; BMI 21.1
--- NOTE | 2025-05-19 04:50 | RAD_ITS ---
PROCEDURE: ABDOMEN SINGLE VIEW (PORTABLE) 05/19/2025 REASON FOR EXAM: ? PSBO TECHNIQUE: ABDOMEN SINGLE VIEW (PORTABLE) COMPARISON: CT 05/18/2025 FINDINGS: Clear lung bases. No free air. Recent CT showed a small-bowel obstruction, transition in the ileum. This is still present.. Nondistended large bowel. Lumbar spine scoliosis and degeneration. RAD/Abdomen Single View (Portable) IMPRESSION: Persistent small-bowel obstruction, transition point in the ileum. Refer to re cent CT report. Reading Location: [place] [address]
[2025-05-19 07:33] LABS: Hematocrit 32.1 % (37-47); Hemoglobin 10.3 g/dL (12.0-15.0); Immature Granulocytes Count 0.010 X10^3/uL (0.0-0.0); Mean Corp Hgb Conc 32.1 g/dL (32-36); Mean Corpuscular Volume 87.2 fL (81-99); Mean Platelet Vol. 11.7 fl (6.2-12.0); NRBC Flagged by Analyzer 0 % (0-5); POSITIVE DIFFERENTIAL YES; Platelet Count 334 K/mm3 (150-450); RBC Distribution Width CV 13.7 % (11.6-14.6); RBC Distribution Width SD 43.3 fl (35.1-43.9); Red Blood Count 3.68 M/mm3 (4.2-5.4); White Blood Count 6.3 K/mm3 (4.4-11.0)
[2025-05-19 07:37] LABS: Differential Indicated SCAN CRITERIA MET
[2025-05-19] MEDS: 0.9% Saline Lock 10 ML Syringe IV ×2 (07:45→21:39)
--- NOTE | 2025-05-19 07:48 | PN.HOSP_ITS ---
Reason for Visit Chief Complaint: Abdominal pain, bloating, N/V. Subjective Subjective Patient is an 85-year-old lady who presented with abdominal pain with nausea and vomiting, imaging studies obtained on admission demonstrated Mildly prominent small bowel loops with air-fluid levels, likely acute enteritis or an ileus. No definite transition point seen, however early/partial SBO is not excluded. Admitted to a monitored bed for subsequent eval Objective Data Objective Data Vital Signs: Vital Signs Temp Pulse Resp BP Pulse Ox O2 Del Method 99.1 F 80 17 162/83 H 98 Room Air 05/19/25 07:41 05/19/25 07:41 05/19/25 07:41 05/19/25 07:41 05/19/25 07:41 05/19/25 07:41 Oxygen Delivery Method Room Air Weight: 57.6 kg Body Mass Index (BMI) 21.1 Intake & Output: Intake and Output for Last 24 Hours 05/17/25 05/18/25 05/19/25 23:59 23:59 23:59 Intake Total 2099 / 2099 Balance 2099 / 2099 Lab / Micro Data 05/19/25 06:39 05/19/25 06:39 Labs: Laboratory Results - last 24 hr 05/18/25 17:55: WBC 14.2 H, RBC 4.35, Hgb 12.2, Hct 37.0, MCV 85.1, MCH 28.0, MCHC 33.0, RDW Std Deviation 41.1, RDW Coeff of Karthikeyan 13.2, Plt Count 364, MPV 11.9, Immature Gran % (Auto) 0.200, Neut % (Auto) 91.6 H, Lymph % (Auto) 3.3 L, [place] % (Auto) 4.6, Eos % (Auto) 0.0, Baso % (Auto) 0.3, Absolute Neuts (auto) 13.0 H, Absolute Lymphs (auto) 0.47 L, Nucleated RBC % 0, Sodium 132 L, Potassium 4.0, Chloride 94 L, Carbon Dioxide 18.0 L, Anion Gap 20 H, BUN 15, Creatinine 0.78, Estim Creat Clear Calc 47.10 L, Est GFR (MDRD) Non-Af 75, BUN/Creatinine Ratio 19.4, Glucose 152 H, Calcium 10.1, Total Bilirubin 0.54, A ST 44 H, ALT 16, Alkaline Phosphatase 93, Total Protein 8.6 H, Albumin 4.5, Globulin 4.1, Albumin/Globulin Ratio 1.1, Lipase 32 05/18/25 18:57: Urine Color Straw, Urine Clarity Sl. Cloudy, Urine pH 7.0, Ur Specific [place] 1.010, Urine Protein 30 H, Urine Glucose (UA) Normal, Urine Ketones 15 H, Urine Occult Blood 25 H, Urine Nitrite Negative, Urine Bilirubin Negative, Urine Urobilinogen Normal, Ur Leukocyte Esterase 100 H, Urine RBC 0-5 SEEN, Urine WBC 0-5 SEEN, Ur Squamous Epith Cells 0-5 SEEN, Urine Bacteria 0 SEEN, Urine Mucus 0 SEEN 05/18/25 19:10: Lactic Acid 1.9 05/18/25 22:24: Sodium 134, Potassium 3.5, Chloride 102, Carbon Dioxide 15.1 L, Anion Gap 17 H, BUN 11, Creatinine 0.56 L, Estim Creat Clear Calc 47.10 L, Est GFR (MDRD) Non-Af 90, BUN/Creatinine Ratio 19.6, Glucose 148 H, Calcium 8.0 05/19/25 06:39: WBC 6.3, RBC 3.68 L, Hgb 10.3 L, Hct 32.1 L, MCV 87.2, MCH 28.0, MCHC 32.1, RDW Std Deviation 43.3, RDW Coeff of Karthikeyan 13.7, Plt Count 334, MPV 11.7, Immature Gran % (Auto) 0.200, Neut % (Auto) 79.3 H, Lymph % (Auto) 6.6 L, [place] % (Auto) 12.8 H, Eos % (Auto) 0.6, Baso % (Auto) 0.5, Absolute Neuts (auto) 5.0, Absolute Lymphs (auto) 0.42 L, Nucleated RBC % 0 Radiography Diagnostic Testing: Radiology Impression Abdomen/Pelvis CT 05/18/25 18:14 IMPRESSION: 1. Mildly prominent small bowel loops with air-fluid levels, likely acute enteritis or an ileus. No definite transition point seen, however early/partial SBO is not excluded. 2. Colonic diverticulosis without signs of diverticulitis. 3. Small hyperdense left renal lesion, may represent a complex cyst. 4. Bilateral pulmonary nodules, with no significant change since the prior study Reading Location: [facility] KUB X-Ray 05/19/25 04:50 IMPRESSION: Persistent small-bowel obstruction, transition point in the ileum. Refer to recent CT report. Reading Location: [place] [address] Physical Exam Narrative GENERAL: cooperative HEENT: Atraumatic; normocephalic EYES; Anicteric, Normal Conjunctiva NECK; supple, normal thyroid, RESPIRATORY: Diminished to auscultation CARDIOVASCULAR: Regular S1 S2, GI: Slight distention of abdomen with hypoactive bowel sounds : No Renal angle tenderness; EXTREMITIES: No edema, no clubbing, MUSCULOSKELETAL: no muscle wasting NEURO: Awake; no lateralizing signs. SKIN: No Rash PSYCH; Flat affect Assessment & Plan Assessment/Plan (1) Intractable nausea and vomiting: PLAN: Plan Patient is an 85-year-old lady who presented with abdominal pain with nausea and vomiting, imaging studies obtained on admission demonstrated Mildly prominent small bowel loops with air-fluid levels, likely acute enteritis or an ileus. No definite transition point seen, however early/partial SBO is not excluded. Admitted to a monitored bed for subsequent eval 1. Partial small bowel obstruction ? Patient has been admitted to monitored bed. Managed with IV fluids, bowel rest with consultation placed to general surgery. Repeat KUB ordered this a.m.Demonstrated persistent small bowel obstruction with transition point in the ED 2. Hypertension ? Blood pressure controlled, home medications held given patient emesis placed on hydralazine as needed for systolic blood pressure greater than 160 3. Hypothyroidism ? Plan is to resume patient home dose levothyroxine once she is able to tolerate oral diet 4.. History uterine/endometrial cancer - Status post total abdominal hysterectomy 2012 in addition to treatment with chemotherapy and radiation patient has since remained in remission 5. GERD ? On PPI 6. Anemia ? Secondary to chronic disorder monitoring H&H and transfuse if patient becomes symptomatic or hemoglobin falls below 7 7 . DVT prophylaxis ? Subcu Lovenox. Charges/Coding Visit Charges Inpatient E&M: 78952 Subs Hosp L2
[2025-05-19 08:12] LABS: AST(SGOT) 26 U/L (<=31); Alanine Aminotransfer ALT/SGPT 10 U/L (<=34); Albumin, Serum 3.6 g/dL (3.4-4.8); Alkaline Phosphatase 74 U/L (35-104); Anion Gap 12 (5-15); BUN 14 mg/dL (4-19); BUN/Creat Ratio 22.8 RATIO (10-20); Calcium,Total 8.9 mg/dL (7.6-11.0); Carbon Dioxide 20.0 mmol/L (21.0-32.0); Chloride 101 mmol/L (98-108); Estimated Creatinine Clearance 47.10 ml/min (50-250); Globulin 3.0 g/dL (2.2-4.2); Glucose 115 mg/dL (70-99); Potassium 3.8 mmol/L (3.3-5.1)
--- NOTE | 2025-05-19 08:52 | CON.PCM.SX_ITS ---
Assessment & Plan Assessment/Plan (1) Intractable nausea and vomiting: PLAN: The patient was admitted with abdominal pain and nausea and vomiting. She is still having nausea but no vomiting. I reviewed her CT findings with her. CT revealed mildly prominent small bowel loops filled with fluid. Unsure as to the etiology of her issues. I am not sure if she has a bowel obstruction versus gastroenteritis. At this time I recommended observation as the majority of these bowel obstructions resolve spontaneously. If it does not improve over the weekend I will take her for surgery on Thursday. Isaiah Lerner MD Pager: [facility] [place] [facility] [address] [place] [address] [address], [address] [place] [address] Office: HPI Consult Data Date of Consult: 05/19/25 HPI Narrative HPI Narrative: LAI CLANCY, is a 85 F who presents with abdominal pain and vomiting that started yesterday. She reports that she has not had any vomiting since being admitted but she vomited a lot yesterday. She said she is having lower abdominal pain that started yesterday. She is not passing any flatus. She said her last bowel movement was yesterday. She has never had a bowel obstruction in the past. [facility] Medical History CKD (chronic kidney disease), stage II HTN (hypertension) Diverticulosis Cancer Gastric reflux Pulmonary nodule Home Medications ?Medication ?Instructions ?Recorded ?Last Taken ?Type Calcium Carbonate/Vitamin D 1 tab PO DAILY 08/01/13 History Multivitamins,Therapeutic 1 tab PO DAILY 08/01/1308/12 History lactobacillus combination no.9 4 4,000 mmu cells PO DA NURIS 03/23/23 Unknown History billion cell capsule (Adult 50 Plus Probiotic) famotidine 20 mg tablet 20 mg PO QDAY 12/01/24 Unkno wn History (Zantac-360 (famotidine)) metoprolol succinate 50 mg 50 mg PO QDAY #90 tabs 12/06 Unknown Rx tablet,extended release 24 hr (Toprol XL) levothyroxine 75 mcg tablet 50 mcg PO QDAY 04/12/25 Un known History Allergy/AdvReac Type Severity Reaction Status Date / Time doxycycline AdvReac Severe Nausea Verified 05/18/25 17:46 erythromycin base AdvReac Severe Nausea Verified 05/18/25 17:46 (Erythromycin Base) clindamycin AdvReac Intermediate Thrush Verified 05/18/25 17:46 Penicillins AdvReac Intermediate Hives Verified 05/18/25 17:46 Family History (Updated 05/18/25 @ 23:[address] Najma Cates MD) Mother Colon cancer Breast cancer Daughter Thyroid disorder Father No problems noted. Surgical History History of tubal ligation History of hysterectomy Social History household members: none Smoking Status: Never smoker alcohol intake: never substance use type: does not use Physical Exam Const alert and oriented x3 HEENT normocephalic Eyes PERRL Resp normal respiratory effort Cardio Rate: regular rate Rhythm: regular rhythm GI soft to palpation Inspection: abdominal distention Palpation: tender LLQ and RLQ Extremity normal to inspection Lab / Micro Data 05/19/25 06:39 05/19/25 06:39 Labs: Laboratory Results - last 24 hr 05/18/25 17:55: WBC 14.2 H, RBC 4.35, Hgb 12.2, Hct 37.0, MCV 85.1, MCH 28.0, MCHC 33.0, RDW Std Deviation 41.1, RDW Coeff of Karthikeyan 13.2, Plt Count 364, MPV 11.9, Immature Gran % (Auto) 0.200, Neut % (Auto) 91.6 H, Lymph % (Auto) 3.3 L, [place] % (Auto) 4.6, Eos % (Auto) 0.0, Baso % (Auto) 0.3, Absolute Neuts (auto) 13.0 H, Absolute Lymphs (auto) 0.47 L, Nucleated RBC % 0, Sodium 132 L, Potassium 4.0, Chloride 94 L, Carbon Dioxide 18.0 L, Anion Gap 20 H, BUN 15, Creatinine 0.78, Estim Creat Clear Calc 47.10 L, Est GFR (MDRD) Non-Af 75, BUN/Creatinine Ratio 19.4, Glucose 152 H, Calcium 10.1, Total Bilirubin 0.54, A ST 44 H, ALT 16, Alkaline Phosphatase 93, Total Protein 8.6 H, Albumin 4.5, Globulin 4.1, Albumin/Globulin Ratio 1.1, Lipase 32 05/18/25 18:57: Urine Color Straw, Urine Clarity Sl. Cloudy, Urine pH 7.0, Ur Specific [place] 1.010, Urine Protein 30 H, Urine Glucose (UA) Normal, Urine Ketones 15 H, Urine Occult Blood 25 H, Urine Nitrite Negative, Urine Bilirubin Negative, Urine Urobilinogen Normal, Ur Leukocyte Esterase 100 H, Urine RBC 0-5 SEEN, Urine WBC 0-5 SEEN, Ur Squamous Epith Cells 0-5 SEEN, Urine Bacteria 0 SEEN, Urine Mucus 0 SEEN 05/18/25 19:10: Lactic Acid 1.9 05/18/25 22:24: Sodium 134, Potassium 3.5, Chloride 102, Carbon Dioxide 15.1 L, Anion Gap 17 H, BUN 11, Creatinine 0.56 L, Estim Creat Clear Calc 47.10 L, Est GFR (MDRD) Non-Af 90, BUN/Creatinine Ratio 19.6, Glucose 148 H, Calcium 8.0 05/19/25 06:39: WBC 6.3, RBC 3.68 L, Hgb 10.3 L, Hct 32.1 L, MCV 87.2, MCH 28.0, MCHC 32.1, RDW Std Deviation 43.3, RDW Coeff of Karthikeyan 13.7, Plt Count 334, MPV 11.7, Immature Gran % (Auto) 0.200, Neut % (Auto) 79.3 H, Lymph % (Auto) 6.6 L, [place] % (Auto) 12.8 H, Eos % (Auto) 0.6, Baso % (Auto) 0.5, Absolute Neuts (auto) 5.0, Absolute Lymphs (auto) 0.42 L, Nucleated RBC % 0, Sodium 133, Potassium 3.8, Chloride 101, Carbon Dioxide 20.0 L, Anion Gap 12, BUN 14, Creatinine 0.60 L, Estim Creat Clear Calc 47.10 L, Est GFR (MDRD) Non-Af 88, BUN/Creatinine Ratio 22.8 H, Glucose 115 H, Calcium 8.9, Total Bilirubin 0.53, AST 26, ALT 10, Alkaline Phosphatase 74, Total Protein 6.6, Albumin 3.6, Globulin 3.0, Albumin/Globulin Ratio 1.2 Imaging Radiology Impression Abdomen/Pelvis CT 05/18/25 18:14 IMPRESSION: 1. Mildly prominent small bowel loops with air-fluid levels, likely acute enteritis or an ileus. No definite transition point seen, however early/partial SBO is not excluded. 2. Colonic diverticulosis without signs of diverticulitis. 3. Small hyperdense left renal lesion, may represent a complex cyst. 4. Bilateral pulmonary nodules, with no significant change since the prior study Reading Location: [id number] KUB X-Ray 05/19/25 04:50 IMPRESSION: Persistent small-bowel obstruction, transition point in the ileum. Refer to recent CT report. Reading [facility]
[2025-05-19] MEDS: Metoprolol(XL)Succ 50 MG Tablet PO (09:43)
[2025-05-19] MEDS: Pantoprazole Sodium 40 MG in 0.9% Normal Saline (100mL MB+) 100 ML 330 MG IV ×2 (09:48→21:39)
--- NOTE | 2025-05-19 15:03 | CASEMGMT ---
Dx: partial small bowel obstruction LACE: 2 6-Clicks: 24 Medical record reviewed and patient evaluated for identification of discharge planning needs. Based on this review, at this time criteria are not present to indicate a need for discharge planning. Will remain available to assist with discharge planning needs as identified or requested.
[2025-05-20] VITALS (10 sets, daily range): BP systolic 107–166; BP diastolic 63–97; PULSE 72–125; RESP 14–18; TEMP 36.5–36.9; O2SAT 93–98; BMI 20.3
--- NOTE | 2025-05-20 04:35 | RAD_ITS ---
PROCEDURE: ABDOMEN SINGLE VIEW (PORTABLE) 05/20/2025 REASON FOR EXAM: SBO TECHNIQUE: ABDOMEN SINGLE VIEW (PORTABLE) COMPARISON: 05/19/2025 FINDINGS: Left base linear scar/atelectasis. No free air. Stomach and proximal small bowels are nondistended. There is redemonstration of distended distal small bowel. Nondistended large bowel. Lumbar spine scoliosis and degeneration. RAD/Abdomen Single View (Portable) IMPRESSION: Findings again suggest a partial distal small-bowel obstruction. Reading [facility]
[2025-05-20 06:36] LABS: Hematocrit 29.6 % (37-47); Hemoglobin 9.4 g/dL (12.0-15.0); Immature Granulocytes Count 0.010 X10^3/uL (0.0-0.0); Mean Corp Hgb Conc 31.8 g/dL (32-36); Mean Corpuscular Volume 88.1 fL (81-99); Mean Platelet Vol. 11.0 fl (6.2-12.0); NRBC Flagged by Analyzer 0 % (0-5); Platelet Count 300 K/mm3 (150-450); RBC Distribution Width CV 14.0 % (11.6-14.6); RBC Distribution Width SD 45.1 fl (35.1-43.9); Red Blood Count 3.36 M/mm3 (4.2-5.4); White Blood Count 4.5 K/mm3 (4.4-11.0)
[2025-05-20 07:12] LABS: Anion Gap 14 (5-15); BUN 17 mg/dL (4-19); BUN/Creat Ratio 21.5 RATIO (10-20); Calcium,Total 8.8 mg/dL (7.6-11.0); Carbon Dioxide 17.7 mmol/L (21.0-32.0); Chloride 103 mmol/L (98-108); Estimated Creatinine Clearance 45.86 ml/min (50-250); Glucose 77 mg/dL (70-99); Magnesium 2.0 mg/dL (1.5-2.2); Potassium 3.5 mmol/L (3.3-5.1)
--- NOTE | 2025-05-20 07:29 | PN.HOSP_ITS ---
Reason for Visit Chief Complaint: Abdominal pain, bloating, N/V. Subjective Subjective Patient seen admitted passing gas. Started on clear liquids by general surgery. Patient blood pressure remains elevated restarted patient home meds Objective Data Objective Data Vital Signs: Vital Signs Temp Pulse Resp BP Pulse Ox O2 Del Method 98.3 F 72 14 107/63 96 Room Air 05/20/25 03:24 05/20/25 03:24 05/20/25 03:24 05/20/25 03:24 05/20/25 03:24 05/20/25 03:24 Oxygen Delivery Method Room Air Weight: 55.5 kg Body Mass Index (BMI) 20.3 Intake & Output: Intake and Output for Last 24 Hours 05/18/25 05/19/25 05/20/25 23:59 23:59 23:59 Intake Total 2099 / 2099 1200 / 1200 Balance 2099 / 2099 1200 / 1200 Lab / Micro Data 05/20/25 06:02 05/20/25 06:02 Labs: Laboratory Results - last 24 hr 05/19/25 06:39: WBC 6.3, RBC 3.68 L, Hgb 10.3 L, Hct 32.1 L, MCV 87.2, MCH 28.0, MCHC 32.1, RDW Std Deviation 43.3, RDW Coeff of Karthikeyan 13.7, Plt Count 334, MPV 11.7, Immature Gran % (Auto) 0.200, Neut % (Auto) 79.3 H, Lymph % (Auto) 6.6 L, [place] % (Auto) 12.8 H, Eos % (Auto) 0.6, Baso % (Auto) 0.5, Absolute Neuts (auto) 5.0, Absolute Lymphs (auto) 0.42 L, Nucleated RBC % 0, Sodium 133, Potassium 3.8, Chloride 101, Carbon Dioxide 20.0 L, Anion Gap 12, BUN 14, Creatinine 0.60 L, Estim Creat Clear Calc 47.10 L, Est GFR (MDRD) Non-Af 88, BUN/Creatinine Ratio 22.8 H, Glucose 115 H, Hemoglobin A1c 6.1 H, Calcium 8.9, Total Bilirubin 0.53, AST 26, ALT 10, Alkaline Phosphatase 74, Total Protein 6.6, Albumin 3.6, Globulin 3.0, Albumin/Globulin Ratio 1.2 05/20/25 06:02: WBC 4.5, RBC 3.36 L, Hgb 9.4 L, Hct 29.6 L, MCV 88.1, MCH 28.0, MCHC 31.8 L, RDW Std Deviation 45.1 H, RDW Coeff of Karthikeyan 14.0, Plt Count 300, MPV 11.0, Immature Gran % (Auto) 0.200, Neut % (Auto) 67.1, Lymph % (Auto) 13.8 L, [place] % (Auto) 16.2 H, Eos % (Auto) 2.0, Baso % (Auto) 0.7, Absolute Neuts (auto) 3.0, Absolute Lymphs (auto) 0.62 L, Nucleated RBC % 0, Sodium 135, Potassium 3.5, Chloride 103, Carbon Dioxide 17.7 L, Anion Gap 14, BUN 17, Creatinine 0.79, Estim Creat Clear Calc 45.86 L, Est GFR (MDRD) Non-Af 73, BUN/Creatinine Ratio 21.5 H, Glucose 77, Calcium 8.8, Phosphorus 3.0, Magnesium 2.0 Radiography Diagnostic Testing: Radiology Impression KUB X-Ray 05/20/25 04:35 IMPRESSION: Findings again suggest a partial distal small-bowel obstruction. Reading Location: [place] [address] Physical Exam Narrative GENERAL: cooperative HEENT: Atraumatic; normocephalic EYES; Anicteric, Normal Conjunctiva NECK; supple, normal thyroid, RESPIRATORY: Diminished to auscultation CARDIOVASCULAR: Regular S1 S2, GI: Abdomen nondistended : No Renal angle tenderness; EXTREMITIES: No edema, no clubbing, MUSCULOSKELETAL: no muscle wasting NEURO: Awake; no lateralizing signs. SKIN: No Rash PSYCH; Flat affect Assessment & Plan Assessment/Plan (1) Intractable nausea and vomiting: PLAN: Plan Patient is an 85-year-old lady who presented with abdominal pain with nausea and vomiting, imaging studies obtained on admission demonstrated Mildly prominent small bowel loops with air-fluid levels, likely acute enteritis or an ileus. No definite transition point seen, however early/partial SBO is not excluded. Admitted to a monitored bed for subsequent eval 1. Partial small bowel obstruction ? Patient has been admitted to monitored bed. Managed with IV fluids, bowel rest with consultation placed to general surgery. Repeat KUB ordered this a.m.Demonstrated persistent small bowel obstruction with transition point in the ED ? 05/20/2025 patient has return of bowel function with passing of gas, General surgery recommended initiation of oral diet with clear liquid to be advance as tolerated 2. Hypertension ? Blood pressure controlled, home medications held given patient emesis placed on hydralazine as needed for systolic blood pressure greater than 160 3. Hypothyroidism ? Plan is to resume patient home dose levothyroxine once she is able to tolerate oral diet 4.. History uterine/endometrial cancer - Status post total abdominal hysterectomy 2012 in addition to treatment with chemotherapy and radiation patient has since remained in remission 5. GERD ? On PPI 6. Anemia ? Secondary to chronic disorder monitoring H&H and transfuse if patient becomes symptomatic or hemoglobin falls below 7 05/20/2025; hemoglobin down to 9 point 7. DVT prophylaxis ? Subcu Lovenox. Charges/Coding Visit Charges Inpatient E&M: 14146 Subs Hosp L2
[2025-05-20] MEDS: Metoprolol(XL)Succ 50 MG Tablet PO (08:32)
[2025-05-20] MEDS: 0.9% Saline Lock 10 ML Syringe IV ×3 (08:32→21:40)
--- NOTE | 2025-05-20 08:38 | PN.SURG_ITS ---
Subjective Subjective Patient is having flatus and walking in halls. Patient denies any nausea or vomiting currently. Still states she is little bit bloated. Objective Data Objective Data Vital Signs: Vital Signs Temp Pulse Resp BP Pulse Ox O2 Del Method 97.7 F L 125 H 16 154/97 H 98 Room Air 05/20/25 08:28 05/20/25 08:32 05/20/25 08:28 05/20/25 08:32 05/20/25 08:28 05/20/25 08:28 Oxygen Delivery Method Room Air Weight: 122 lb 5.705 oz Body Mass Index (BMI) 20.3 Intake & Output: Intake and Output for Last 24 Hours 05/18/25 05/19/25 05/20/25 23:59 23:59 23:59 Intake Total 2099 / 2099 1200 / 1200 Balance 2099 / 2099 1200 / 1200 Lab / Micro Data 05/20/25 06:02 05/20/25 06:02 Labs: Laboratory Results - last 24 hr 05/19/25 06:39: Hemoglobin A1c 6.1 H 05/20/25 06:02: WBC 4.5, RBC 3.36 L, Hgb 9.4 L, Hct 29.6 L, MCV 88.1, MCH 28.0, MCHC 31.8 L, RDW Std Deviation 45.1 H, RDW Coeff of Karthikeyan 14.0, Plt Count 300, MPV 11.0, Immature Gran % (Auto) 0.200, Neut % (Auto) 67.1, Lymph % (Auto) 13.8 L, [place] % (Auto) 16.2 H, Eos % (Auto) 2.0, Baso % (Auto) 0.7, Absolute Neuts (auto) 3.0, Absolute Lymphs (auto) 0.62 L, Nucleated RBC % 0, Sodium 135, Potassium 3.5, Chloride 103, Carbon Dioxide 17.7 L, Anion Gap 14, BUN 17, Creatinine 0.79, Estim Creat Clear Calc 45.86 L, Est GFR (MDRD) Non-Af 73, BUN/Creatinine Ratio 21.5 H, Glucose 77, Calcium 8.8, Phosphorus 3.0, Magnesium 2.0 Radiography Diagnostic Testing: Radiology Impression KUB X-Ray 05/20/25 04:35 IMPRESSION: Findings again suggest a partial distal small-bowel obstruction. Reading Location: [place] [address] Physical Exam Const oriented x3 and no apparent distress Resp normal respiratory effort Cardio regular rate GI soft to palpation GI Narrative: Mild distention, nontender, no peritoneal signs Assessment & Plan Assessment/Plan (1) Intractable nausea and vomiting: PLAN: Patient's KUB does look slightly improved to me and patient is having flatus we will start clears and still encourage ambulation. Geovanna Nino M.D. Pager: [phone] [facility] [address] [place] [address], [facility], [address] [place] [address] Office: [phone] Charges/Coding Visit Charges Inpatient E&M: 46933 Subs Hosp L2
[2025-05-20] MEDS: Pantoprazole Sodium 40 MG in 0.9% Normal Saline (100mL MB+) 100 ML 330 MG IV ×2 (08:57→21:40)
[2025-05-21] VITALS (7 sets, daily range): BP systolic 138–165; BP diastolic 75–98; PULSE 76–112; RESP 16–18; TEMP 36.3–36.9; O2SAT 97–98; BMI 20.6
[2025-05-21 06:46] LABS: Hematocrit 30.9 % (37-47); Hemoglobin 10.1 g/dL (12.0-15.0); Immature Granulocytes Count 0.020 X10^3/uL (0.0-0.0); Mean Corp Hgb Conc 32.7 g/dL (32-36); Mean Corpuscular Volume 86.3 fL (81-99); Mean Platelet Vol. 11.5 fl (6.2-12.0); NRBC Flagged by Analyzer 0 % (0-5); Platelet Count 305 K/mm3 (150-450); RBC Distribution Width CV 13.6 % (11.6-14.6); RBC Distribution Width SD 42.6 fl (35.1-43.9); Red Blood Count 3.58 M/mm3 (4.2-5.4); White Blood Count 5.4 K/mm3 (4.4-11.0)
[2025-05-21 07:01] LABS: Anion Gap 15 (5-15); BUN 13 mg/dL (4-19); BUN/Creat Ratio 17.5 RATIO (10-20); Calcium,Total 9.1 mg/dL (7.6-11.0); Carbon Dioxide 18.9 mmol/L (21.0-32.0); Chloride 100 mmol/L (98-108); Estimated Creatinine Clearance 46.53 ml/min (50-250); Glucose 91 mg/dL (70-99); Potassium 3.1 mmol/L (3.3-5.1)
--- NOTE | 2025-05-21 08:31 | PN.HOSP_ITS ---
Reason for Visit Chief Complaint: Abdominal pain, bloating, N/V. Subjective Subjective Patient was started on clear liquids by general surgery the day prior. Diagnostic data reviewed this a.m. significant for hemoglobin of 10.1 and potassium of 3.1. Patient seen complains of abdominal distention and pain.. Decision was made to keep patient n.p.o. order checks x-ray Objective Data Objective Data Vital Signs: Vital Signs Temp Pulse Resp BP Pulse Ox O2 Del Method 98.4 F 76 16 138/75 H 97 Room Air 05/21/25 03:40 05/21/25 03:40 05/21/25 03:40 05/21/25 03:40 05/21/25 03:40 05/21/25 03:40 Oxygen Delivery Method Room Air Weight: 56.3 kg Body Mass Index (BMI) 20.6 Intake & Output: Intake and Output for Last 24 Hours 05/19/25 05/20/25 05/21/25 23:59 23:59 23:59 Intake Total 1200 / 1200 1180 / 1280 220 / 220 Balance 1200 / 1200 1180 / 1280 220 / 220 Lab / Micro Data 05/21/25 05:40 05/21/25 05:40 Labs: Laboratory Results - last 24 hr 05/21/25 05:40: WBC 5.4, RBC 3.58 L, Hgb 10.1 L, Hct 30.9 L, MCV 86.3, MCH 28.2, MCHC 32.7, RDW Std Deviation 42.6, RDW Coeff of Karthikeyan 13.6, Plt Count 305, MPV 11.5, Immature Gran % (Auto) 0.400, Neut % (Auto) 71.3 H, Lymph % (Auto) 13.8 L, [place] % (Auto) 13.2 H, Eos % (Auto) 1.1, Baso % (Auto) 0.2, Absolute Neuts (auto) 3.8, Absolute Lymphs (auto) 0.74 L, Nucleated RBC % 0, Sodium 134, Potassium 3.1 L, Chloride 100, Carbon Dioxide 18.9 L, Anion Gap 15, BUN 13, Creatinine 0.73, E stim Creat Clear Calc 46.53 L, Est GFR (MDRD) Non-Af 81, BUN/Creatinine Ratio 17.5, Glucose 91, Calcium 9.1 Physical Exam Narrative GENERAL: cooperative HEENT: Atraumatic; normocephalic EYES; Anicteric, Normal Conjunctiva NECK; supple, normal thyroid, RESPIRATORY: Diminished to auscultation CARDIOVASCULAR: Regular S1 S2, GI: Abdomen slightly distended, tympanitic to percussion : No Renal angle tenderness; EXTREMITIES: No edema, no clubbing, MUSCULOSKELETAL: no muscle wasting NEURO: Awake; no lateralizing signs. SKIN: No Rash PSYCH; Flat affect Assessment & Plan Assessment/Plan (1) Intractable nausea and vomiting: PLAN: Plan Patient is an 85-year-old lady who presented with abdominal pain with nausea and vomiting, imaging studies obtained on admission demonstrated Mildly prominent small bowel loops with air-fluid levels, likely acute enteritis or an ileus. No definite transition point seen, however early/partial SBO is not excluded. Admitted to a monitored bed for subsequent eval 1. Partial small bowel obstruction ? Patient has been admitted to monitored bed. Managed with IV fluids, bowel rest with consultation placed to general surgery. Repeat KUB ordered this a.m.Demonstrated persistent small bowel obstruction with transition point in the ED ? 05/20/2025 patient has return of bowel function with passing of gas, General surgery recommended initiation of oral diet with clear liquid to be advance as tolerated ? 05/21/2025; patient appears to have clinical recurrence of her small bowel obstruction. Patient was kept n.p.o. ordered abdominal series. Decision regarding possible Gastrografin small bowel follow-through study deferred to general surgery 2. Hypertension ? Blood pressure controlled, home medications held given patient emesis placed on hydralazine as needed for systolic blood pressure greater than 160 3. Hypothyroidism ? Plan is to resume patient home dose levothyroxine once she is able to tolerate oral diet 4.. History uterine/endometrial cancer - Status post total abdominal hysterectomy 2012 in addition to treatment with chemotherapy and radiation patient has since remained in remission 5. GERD ? On PPI 6. Anemia ? Secondary to chronic disorder monitoring H&H and transfuse if patient becomes symptomatic or hemoglobin falls below 7 05/20/2025; hemoglobin down to 9 point 7. DVT prophylaxis ? Subcu Lovenox. 8. Hypokalemia -Corrected per protocol, a.m. labs ordered to assess response to therapy Charges/Coding Visit Charges Inpatient E&M: 22913 Subs Hosp L2
[2025-05-21] MEDS: Pantoprazole Sodium 40 MG in 0.9% Normal Saline (100mL MB+) 100 ML 330 MG IV ×2 (09:17→20:37)
[2025-05-21] MEDS: Metoprolol(XL)Succ 50 MG Tablet PO (09:23)
[2025-05-21 09:30] LABS: Magnesium 1.9 mg/dL (1.5-2.2)
--- NOTE | 2025-05-21 09:34 | PCM.PN.SRG ---
Subjective Subjective Patient states she still having abdominal bloating and abdominal pain did have a little bit of clears yesterday with no vomiting and minimal nausea. Patient still having flatus and had 2 very small bowel movements?patient also had an episode similar about 6 weeks ago. Objective Data Objective Data Vital Signs: Vital Signs Temp Pulse Resp BP Pulse Ox O2 Del Method 97.4 F L 112 H 18 165/92 H 97 Room Air 05/21/25 09:21 05/21/25 09:23 05/21/25 09:21 05/21/25 09:21 05/21/25 09:21 05/21/25 09:21 Oxygen Delivery Method Room Air Weight: 124 lb 1.924 oz Body Mass Index (BMI) 20.6 Intake & Output: Intake and Output for Last 24 Hours 05/19/25 05/20/25 05/21/25 23:59 23:59 23:59 Intake Total 1200 / 1200 1180 / 1280 220 / 220 Balance 1200 / 1200 1180 / 1280 220 / 220 Lab / Micro Data 05/21/25 05:40 05/21/25 05:40 Labs: Laboratory Results - last 24 hr 05/21/25 05:40: WBC 5.4, RBC 3.58 L, Hgb 10.1 L, Hct 30.9 L, MCV 86.3, MCH 28.2, MCHC 32.7, RDW Std Deviation 42.6, RDW Coeff of Karthikeyan 13.6, Plt Count 305, MPV 11.5, Immature Gran % (Auto) 0.400, Neut % (Auto) 71.3 H, Lymph % (Auto) 13.8 L, [place] % (Auto) 13.2 H, Eos % (Auto) 1.1, Baso % (Auto) 0.2, Absolute Neuts (auto) 3.8, Absolute Lymphs (auto) 0.74 L, Nucleated RBC % 0, Sodium 134, Potassium 3.1 L, Chloride 100, Carbon Dioxide 18.9 L, Anion Gap 15, BUN 13, Creatinine 0.73, Estim Creat Clear Calc 46.53 L, Est GFR (MDRD) Non-Af 81, BUN/Creatinine Ratio 17.5, Glucose 91, Calcium 9.1, Magnesium 1.9 Physical Exam Const oriented x3 and no apparent distress Resp normal respiratory effort Cardio regular rate GI soft to palpation GI Narrative: Mild distention, tender diffuse?mild, no peritoneal signs Assessment & Plan Assessment/Plan (1) Intractable nausea and vomiting: PLAN: Patient still having abdominal bloating and pain did have a small bowel movement and passing flatus. Patient's back sips and chips KUB pending. Likely will still go ahead with the diagnostic laparoscopy by Dr. Lerner tomorrow--did add onto the OR schedule. Geovanna Nino M.D. Pager: [phone] [facility] [address] [place] [address], [address] [place] [address] Office: [phone] Charges/Coding Multi Select Codes Visit Charges Visit Charges: 65023 Subs Hosp L2
--- NOTE | 2025-05-21 09:45 | RAD_ITS ---
PROCEDURE: ABD INC DECUB AND/OR ERECT 05/21/2025 REASON FOR EXAM: SBO TECHNIQUE: ABD INC DECUB AND/OR ERECT FINDINGS: LUNG BASES: Lung bases clear where seen. BOWEL: The bowel gas pattern is nonspecific. No evidence of bowel obstruction. PERITONEUM/SOFT TISSUES: No appreciable free air. No abnormal calcifications. BONES: No acute osseous abnormality. Degenerative changes of the spine. Mild lumbar dextroscoliosis. RAD/Abd Inc Decub and/or Erect IMPRESSION: No acute abnormality. Reading Location: [id number]
[2025-05-21] MEDS: 0.9% Saline Lock 10 ML Syringe IV (11:15)
[2025-05-21] MEDS: Potassium Chloride 10mEq/100mL 10 MEQ/100 ML IV.SOLN. 100 MEQ IV BOLUS ×4 (11:15→14:43)
[2025-05-22 01:26] VITALS: BMI 20.7
[2025-05-22 03:15] VITALS: BP 133/73; PULSE 71; RESP 16; TEMP 36.8; O2SAT 97
[2025-05-22 04:10] LABS: Hematocrit 32.2 % (37-47); Hemoglobin 10.4 g/dL (12.0-15.0); Immature Granulocytes Count 0.020 X10^3/uL (0.0-0.0); Mean Corp Hgb Conc 32.3 g/dL (32-36); Mean Corpuscular Volume 87.0 fL (81-99); Mean Platelet Vol. 11.2 fl (6.2-12.0); NRBC Flagged by Analyzer 0 % (0-5); Platelet Count 323 K/mm3 (150-450); RBC Distribution Width CV 13.6 % (11.6-14.6); RBC Distribution Width SD 43.3 fl (35.1-43.9); Red Blood Count 3.70 M/mm3 (4.2-5.4); White Blood Count 5.8 K/mm3 (4.4-11.0)
[2025-05-22 04:45] LABS: Anion Gap 20 (5-15); BUN 17 mg/dL (4-19); BUN/Creat Ratio 21.8 RATIO (10-20); Calcium,Total 9.4 mg/dL (7.6-11.0); Carbon Dioxide 16.2 mmol/L (21.0-32.0); Chloride 99 mmol/L (98-108); Estimated Creatinine Clearance 46.69 ml/min (50-250); Glucose 62 mg/dL (70-99); Potassium 3.7 mmol/L (3.3-5.1)
[2025-05-22 09:18] VITALS: PULSE 77
[2025-05-22] MEDS: Metoprolol(XL)Succ 50 MG Tablet PO (09:18)
[2025-05-22 09:21] VITALS: BP 175/85; PULSE 78; RESP 16; TEMP 36.5; O2SAT 99
[2025-05-22] MEDS: Pantoprazole Sodium 40 MG in 0.9% Normal Saline (100mL MB+) 100 ML 330 MG IV (09:26)
[2025-05-22 10:21] VITALS: BP 164/101; PULSE 112
--- NOTE | 2025-05-22 10:30 | CT_ITS ---
PROCEDURE: ABDOMEN/PELVIS WITH CONTRAST 05/22/2025 REASON FOR EXAM: SBO History of uterine cancer. TECHNIQUE: ABDOMEN/PELVIS WITH CONTRAST Coronal and Sagittal reconstruction series were provided. CONTRAST: Isovue-300 VOLUME: 95 mL One or more dose reduction techniques were used (e.g., Automated exposure control, adjustment of the mA and/or kV according to patient size, use of iterative reconstruction technique. RADIATION DOSE SUMMARY: CTDlvol: 9.6 mGy DLP: 469.04 mGycm COMPARISON: Prior study dated May 18, 2025. FINDINGS: Lung bases: Stable 9 mm nodule in the anterior aspect of the left lower lobe abutting the heart shadow. Increased linear markings at the lung bases suggestive of atelectasis and/or scarring. Liver: Diffuse fatty infiltration. Gallbladder: Sludge is seen within the gallbladder lumen. Spleen: Normal size. Pancreas: Diffuse fatty atrophy. Adrenals: Unremarkable Kidneys: Stable 1 cm cyst in the peripheral lateral aspect of the right kidney. Bladder: Unremarkable Reproductive Organs: Prior hysterectomy. Adnexal regions are unremarkable. Bowel: No bowel obstruction. Sigmoid diverticulosis. Appendix: The appendix is not identified. There is no inflammatory process identified in the right lower quadrant to suggest appendicitis. Lymph nodes: Unremarkable. Vasculature: Mild diffuse atherosclerotic calcifications are noted. Peritoneum / Retroperitoneum: Unremarkable Bones: Degenerative changes of the spine. CT/Abdomen/Pelvis WITH Contrast IMPRESSION: No evidence of bowel obstruction. Sigmoid diverticulosis. Stable 9 mm nodule in the anterior aspect of the left lower lobe abutting the h eart. Reading Location: [place] [id number]
[2025-05-22 11:30] VITALS: BP 141/89
--- NOTE | 2025-05-22 11:56 | DCINST_ITS ---
Discharge Instructions DC O2, CPAP, BIPAP needs Home O2 Discharge instructions: No Dressing / Incision Discharge Activity: Return to Normal Activity Dressing / Incision Call your doctor if you observe: Fever of 101 or Higher, Shortness of breath, Dizziness, Fainting spells, Swelling in the ankles, Chest pain and Increased palpitations (irregular heartbeat) Follow Up Care Test Results: Test results from this visit will be discussed in further detail at your follow- up appointment, if applicable. Discharge Plan Admission Admit Date/Time: 05/19/25 11:54 Attending Provider: Joseph Lindsey Primary Care Provider: Lela Interiano NP Consulting Providers: Isaiah Lerner; Najma Cates; Brian Negrete Discharge Orders/Prescriptions Prescriptions: Continued Adult 50 Plus Probiotic 4 billion cell capsule 4,000 mmu cells PO DAILY Rx Instructions: administer with a meal famotidine [Zantac-360 (famotidine)] 20 mg tablet 20 mg PO QDAY metoprolol succinate [Toprol XL] 50 mg tablet extended release 24 hr 50 mg PO QDAY Qty: 90 3RF levothyroxine 75 mcg tablet 50 mcg PO QDAY Multivitamins,Therapeutic tablet 1 tab PO DAILY Calcium Carbonate/Vitamin D tablet 1 tab PO DAILY Referrals / Follow Up: Lela Interiano NP, EVENT AV OPERATOR-C [Primary Care Provider] - Within 1 Week Disposition Disposition (needs filled in before D/C Order can be placed): Home, Self Care
--- NOTE | 2025-05-22 12:10 | CASEMGMT ---
Patient has order for discharge. RN CM in to discuss needs at discharge. Patient denies needs or help at discharge. Patient had no further questions or concerns.
--- NOTE | 2025-05-22 12:16 | PN.SURG_ITS ---
Subjective Subjective This morning the patient reports that she was passing minimal flatus so I repeated a CT scan with oral and IV contrast. She reports that since the CT she has had 5 bowel movements and her abdomen feels normal with no abdominal pain. Objective Data Objective Data Vital Signs: Vital Signs Temp Pulse Resp BP Pulse Ox O2 Del Method 97.7 F L 112 H 16 164/101 H 99 Room Air 05/22/25 09:21 05/22/25 10:21 05/22/25 09:21 05/22/25 10:21 05/22/25 09:21 05/22/25 09:21 Oxygen Delivery Method Room Air Weight: 124 lb 8.979 oz Body Mass Index (BMI) 20.7 Intake & Output: Intake and Output for Last 24 Hours 05/20/25 05/21/25 05/22/25 23:59 23:59 23:59 Intake Total 1180 / 1280 1460 / 1460 100 / 100 Balance 1180 / 1280 1460 / 1460 100 / 100 Lab / Micro Data 05/22/25 03:30 05/22/25 03:30 Labs: Laboratory Results - last 24 hr 05/22/25 03:30: WBC 5.8, RBC 3.70 L, Hgb 10.4 L, Hct 32.2 L, MCV 87.0, MCH 28.1, MCHC 32.3, RDW Std Deviation 43.3, RDW Coeff of Karthikeyan 13.6, Plt Count 323, MPV 11.2, Immature Gran % (Auto) 0.300, Neut % (Auto) 75.5 H, Lymph % (Auto) 12.3 L, [place] % (Auto) 10.2 H, Eos % (Auto) 1.2, Baso % (Auto) 0.5, Absolute Neuts (auto) 4.4, Absolute Lymphs (auto) 0.71 L, Nucleated RBC % 0, Sodium 135, Potassium 3.7, Chloride 99, Carbon Dioxide 16.2 L, Anion Gap 20 H, BUN 17, Creatinine 0.80, Estim Creat Clear Calc 46.69 L, Est GFR (MDRD) Non-Af 73, BUN/Creatinine Ratio 21.8 H, Glucose 62 L, Calcium 9.4 Radiography Diagnostic Testing: Radiology Impression Abdomen/Pelvis CT 05/22/25 10:30 IMPRESSION: No evidence of bowel obstruction. Sigmoid diverticulosis. Stable 9 mm nodule in the anterior aspect of the left lower lobe abutting the heart. [facility] Physical Exam Const oriented x3 and no apparent distress Resp normal respiratory effort GI normal to inspection, nondistended, normoactive bowel sounds Assessment & Plan Assessment/Plan (1) Intractable nausea and vomiting: PLAN: The patient did not seem to distended this morning so I ordered a CT scan. CT scan revealed normal abdomen with no sign of bowel obstruction. The patient had several bowel movements after her contrast. I will order the patient a regular diet if she tolerates that she can be discharged home and follow-up as needed. Isaiah Lerner MD Pager: [facility] [address] [place] [address], [address] [place] [phone] Office:
--- NOTE | 2025-05-22 13:16 | PHA.DC.MR.R ---
Pharmacy PA Med Reconciliation Pharmacy Service has performed discharge medication reconciliation for this patient. The patient's discharge medication list was reviewed for discrepancies and discrepancies were resolved. Medications at Discharge Home Medications Calcium Carbonate/Vitamin D 1 tab PO DAILY 08/01/13 Multivitamins,Therapeutic 1 tab PO DAILY 08/01/13 lactobacillus combination no.9 4 billion cell capsule (Adult 50 Plus Probiotic) 4,000 mmu cells PO DAILY 03/23/23 famotidine 20 mg tablet (Zantac-360 (famotidine)) 20 mg PO QDAY 12/01/24 metoprolol succinate 50 mg tablet,extended release 24 hr (Toprol XL) 50 mg PO QDAY #90 tabs 01/11/25 levothyroxine 75 mcg tablet 50 mcg PO QDAY 04/12/25
[2025-05-22 16:18] VITALS: BP 114/58; PULSE 80; RESP 16; TEMP 36.7; O2SAT 99
--- NOTE | 2025-05-23 12:25 | PCM.DC.SUM ---
Providers Date of Admission: 05/19/25 Date of Discharge: 05/22/25 Primary Care Physician: MARILEE Partida Consultations 05/18/25 22:50 Consult: General Surgery Routine Consulting Provider: Isaiah Lerner Reason for Consult: ? pSBO EMERGENT Consult: No MD Notified: Yes Date Notified: 05/18/25 Time Notified: 22:43 Method of Notification: ED Physician Initiated Reason For Visit: ? PSBO Diagnosis Discharge Diagnosis (1) Intractable nausea and vomiting: Status: Acute Code(s): R11.2 - Nausea with vomiting, unspecified Medications at Discharge Home Medications Calcium Carbonate/Vitamin D 1 tab PO DAILY 08/01/13 Multivitamins,Therapeutic 1 tab PO DAILY 08/01/13 lactobacillus combination no.9 4 billion cell capsule (Adult 50 Plus Probiotic) 4,000 mmu cells PO DAILY 03/23/23 famotidine 20 mg tablet (Zantac-360 (famotidine)) 20 mg PO QDAY 12/01/24 metoprolol succinate 50 mg tablet,extended release 24 hr (Toprol XL) 50 mg PO QDAY #90 tabs 01/11/25 levothyroxine 75 mcg tablet 50 mcg PO QDAY 04/12/25 Hospital Course Operations None Procedures None Summary of Care Provided Minutes Spent on Discharge: 38 Hospital Course: Per HPI: The patient is an 85 y/o F w/ PMHx: CKD stage II per GFR trending, HTN, GERD, Hx Uterine CA/endometrial s/p PRADEEP as well as chemotherapy/radiation 2013, Hypothyroidism who presents to the [facility] ED on 05/18/25 with history of onset on day of presentation abdominal distention, increased burping, lack of flatus, episodes of nausea and emesis although she does report a bowel movement of normal texture and size at approximately 6:30 AM and also 1 in the early afternoon which is a familiar bowel pattern for her although she does note that last flatus was the day prior and given ongoing discomfort noted to be waxing and waning occasionally and with a cramping sensation rated 6-7 out of 10 in severity at its worst, currently resolved upon ED evaluation but given ongoing prompted ED evaluation to be cautious. She does note that in March she had a similar episode but no emesis at that time and it did resolve over 48 hours. Prior to this she had never had anything like this before. Workup in the ED included T98.4, heart rate 125, BP 164/106, respiratory rate 20, 100% on room air with most recent repeat vitals heart rate 122, BP 151/99, respiratory rate 14, 98% room air, CBC with 14.2, hemoglobin 12.2, platelet 364 with left shift and lymphopenia, CMP with sodium 132, chloride 94, carbon dioxide 18, AG 20, BUN/creat 15/0.78, GFR 75, glucose 152, lactic acid 1.9, hepatic profile not marked appearing aside AST 42, lipase 32, urinalysis not marked appearing, CT abdomen and pelvis with mildly prominent small bowel loops with air-fluid levels possibly acute enteritis versus ileus with no definitive transition point however unable to exclude early/partial SBO, colonic diverticulosis without diverticulitis, small hyperdense left renal lesion possibly complex cyst, bilateral pulmonary nodules with no significant change in his prior study. In the ED patient administered 2 L normal saline, Reglan 5 mg IV x 1, morphine 2 mg IV x 1, Zofran 4 mg IV x 1. ED discussed case with Dr. Lerner. Hospital Course: 1. Partial small bowel obstruction after hysterectomy for endometrial cancer in 2012?85-year-old female presented to hospital with abdominal pain and distention. Had been having episodes of nausea and vomiting at home prior to coming in. She had had similar symptoms about 6 weeks prior to this hospitalization but they resolved on their own fairly quickly. CT of the abdomen and pelvis on 05/18/2025 showed mildly prominent small bowel loops with air-fluid levels but no obvious transition point was seen. She was managed conservatively with consultation of general surgery as well as n.p.o. and IV fluids. She had slow improvement but ultimately did not require any type of surgical intervention. A repeat CT of the abdomen pelvis was obtained on the day of discharge on 05/22/2025 that showed complete resolution of her previous small bowel dilatation. She was also noted on that CT scan to have a stable 9 mm nodule in the anterior aspect the left lower lobe of the lung. She tolerated a diet both for breakfast lunch and dinner and I discussed with her the possibility for discharge and she expressed understanding of the risk and benefits of going home and would like to go home today. General surgery also agreed with the plans for discharge with outpatient follow-up to her PCP. 2. Essential hypertension, hyperlipidemia, hypothyroidism, GERD, are all chronic medical conditions which complicate her care. Her home medications were continued where appropriate Physical Exam Narrative general: Alert, Oriented x3, Cooperative, No apparent distress HEENT: Atraumatic, PERRLA, EOMI, Normocephalic Oral: Moist Mucosa Neck: Supple, No JVD Lungs: Clear to auscultation, Normal air movement, No rhonchi, No wheeze, No rales Cardiovascular: Regular rate, Regular Rhythm, Normal S1, Normal S2, No murmurs Abdomen: Soft, Non Tender, Non-Distended, No Hepato-splenomegaly Extremities: No edema, Capillary Refill Less than 3 Seconds Skin: No rashes, No breakdown Musculoskeletal: No Tenderness to Palpation of Joints or Extremities Neurological: No focal neurological deficits, Motor Exam 5/5 strength throughout, Sensory exam intact to light touch and pain Psych/Mental Status: Normal Affect, Appropriate Weight / BMI Weight Weight: 124 lb 8.979 oz Body Mass Index (BMI) 20.7 ABG / Lab / Microbiology Data 05/22/25 03:30 05/22/25 03:30 D/C Instructions Call your doctor if you observe: Fever of 101 or Higher, Shortness of breath, Dizziness, Fainting spells, Swelling in the ankles, Chest pain and Increased palpitations (irregular heartbeat) DC O2, CPAP, BIPAP Needs Home O2 Discharge instructions: No Meaningful Use Info Meaningful Use Meaningful Use Diagnoses (Choose all that apply): None applicable Discharge Plan Admission Admit Date/Time: 05/19/25 11:54 Attending Provider: Joseph Lindsey Primary Care Provider: Lela Interiano NP Consulting Providers: Isaiah Lerner; Najma Cates; Brian Negrete Discharge Orders/Prescriptions Prescriptions: Continued Adult 50 Plus Probiotic 4 billion cell capsule 4,000 mmu cells PO DAILY Rx Instructions: administer with a meal famotidine [Zantac-360 (famotidine)] 20 mg tablet 20 mg PO QDAY metoprolol succinate [Toprol XL] 50 mg tablet extended release 24 hr 50 mg PO QDAY Qty: 90 3RF levothyroxine 75 mcg tablet 50 mcg PO QDAY Multivitamins,Therapeutic tablet 1 tab PO DAILY Calcium Carbonate/Vitamin D tablet 1 tab PO DAILY Referrals / Follow Up: Jaydon,Lela WOOD GRINDER OPERATOR, WOOD GRINDER OPERATOR-C [Primary Care Provider] - Within 1 Week Disposition Disposition (needs filled in before D/C Order can be placed): Home, Self Care Charges/Coding Visit Charges Inpatient E&M: 01082 Disch Hosp >30min
== END 2025-05-22 16:25 | disposition home or self-care (01) | DRG 390 ==
LOC: ED 21:56 → PCU 22:23
PROVIDERS: Internal Medicine; Surgery; Admitting Provider Family Medicine; Emergency Provider Surgery; PCP Nurse Practitioner Family; Visit Provider Family Medicine
DX: K56.600 Partial intestinal obstruction, unspecified as to cause (principal); D63.8 Anemia in other chronic diseases classified elsewhere; E03.9 Hypothyroidism, unspecified; I12.9 Hypertensive chronic kidney disease with stage 1 through stage 4 chronic kidney disease, or unspecified chronic kidney disease; K21.9 Gastro-esophageal reflux disease without esophagitis; K57.30 Diverticulosis of large intestine without perforation or abscess without bleeding; E86.0 Dehydration; N18.2 Chronic kidney disease, stage 2 (mild); E87.6 Hypokalemia; E78.5 Hyperlipidemia, unspecified; R11.2 Nausea with vomiting, unspecified; I44.7 Left bundle-branch block, unspecified; R00.0 Tachycardia, unspecified; R91.1 Solitary pulmonary nodule; Z79.899 Other long term (current) drug therapy; Z79.890 Hormone replacement therapy; Z85.41 Personal history of malignant neoplasm of cervix uteri; Z85.42 Personal history of malignant neoplasm of other parts of uterus; Z92.3 Personal history of irradiation; Z92.21 Personal history of antineoplastic chemotherapy; Z90.710 Acquired absence of both cervix and uterus
CPT/HCPCS: 36415; 74018; 74019; 74177; 80048; 80053; 81001; 83036; 83605; 83690; 83735; 84100; 85025; 93005; 94668; 97802; 99285; Q9967; A4216; J2405

== ENCOUNTER → 2025-05-29 | Outpatient (CLI) | payer MEDICARE, BC, SELFPAY ==
[2025-05-29 18:27] LABS: AST(SGOT) 28 U/L (<=31); Alanine Aminotransfer ALT/SGPT 19 U/L (<=34); Albumin, Serum 4.1 g/dL (3.4-4.8); Alkaline Phosphatase 70 U/L (35-104); Anion Gap 13 (5-15); BUN 9 mg/dL (4-19); BUN/Creat Ratio 14.3 RATIO (10-20); Calcium,Total 9.9 mg/dL (7.6-11.0); Carbon Dioxide 23.5 mmol/L (21.0-32.0); Chloride 99 mmol/L (98-108); Globulin 3.4 g/dL (2.2-4.2); Glucose 98 mg/dL (70-99); Potassium 4.4 mmol/L (3.3-5.1)
== END | disposition home or self-care (01) ==
LOC: MFPLAB 14:17
PROVIDERS: PCP Nurse Practitioner Family; Visit Provider Nurse Practitioner Family
DX: K56.600 Partial intestinal obstruction, unspecified as to cause (principal); E03.9 Hypothyroidism, unspecified
CPT/HCPCS: 36415; 80053; 84443

== ENCOUNTER → 2025-06-09 | Outpatient (CLI) | payer MEDICARE, BC, SELFPAY ==
--- NOTE | 2025-06-09 07:09 | BI_ITS ---
EXAM: SCRN MAMM (CAD)W/CHARLENE BILAT DATE: 06/09/2025 CLINICAL HISTORY: F, Age 85 y/o , POST MENOPAUSE TECHNIQUE: SCRN MAMM (CAD)W/CHARLENE BILAT COMPARISON: Prior exam(s) dated 05/02/2024, 04/20/2023, 04/07/2022. FINDINGS: TISSUE DENSITY: The breasts are heterogeneously dense, which may obscure small masses. The mammogram demonstrates that the patient has dense breasts. Supplemental screening with whole breast ultrasound or MRI may be considered for further evaluation. Bilateral Breast Mammographic Findings: No significant masses, calcifications or other abnormalities are identified. BI/SCRN MAMM (CAD)W/CHARLENE BILAT IMPRESSION: There is no mammographic evidence of malignancy. OVERALL FINAL ASSESSMENT BI-RADS 1: NEGATIVE. RECOMMENDATION: Routine annual follow-up in 1 Year A letter with findings and recommendations will be mailed to the patient. Reading Location: [id number]
--- OUTSIDE RECORDS SUMMARY | 2025-06-09 07:25 | XMS RPT_ITS | CCD ---
Author Organization [facility] Care Team Providers Care Product Applications Scientist Name Role Phone Carlos Bernal MD [...] Dr. Riley Mckeon MD Other Provider Jaydon TEST BAKER-C, Lela Primary Care Provider Jaydon TEST BAKER-C, Lela Attending Provider Jaydon TEST BAKER-C, Lela Referring Provider Dolores SANTIAGO, Dr. Gonzalez Attending Provider Chloe SANTIAGO, Dr. Paola Lebron Primary Care Provider Chloe SANTIAGO, Dr. Paola Lebron Referring Provider Dolores SANTIAGO, Dr. Gonzalez Referring Provider Chloe SANTIAGO, Dr. Paola Lebron Primary Care Provider Mike SANTIAGO, Dr. Lin Attending Provider Chloe SANTIAGO, Dr. Paola Lebron Referring Provider Christian SANTIAGO, Dr. Torres Other Provider Unavailabl natty Ferreira TEST BAKER-C, Laney Attending Provider Dr. Jeffery Mcclain DO Emergency Provider Darryn SANTIAGO, Dr. Najma Brown Admit Provider Darryn SANTIAGO, Dr. Najma Brown Attending Provider Darryn SANTIAGO, Dr. Najma Brown Other Provider Yann SANTIAGO, Dr. Colon Other Provider Caden SANTIAGO, Dr. Torres Attending Provider Unavailindra Negrete MD, Dr. Torres Other Provider Unavailable Yann SANTIAGO, Dr. Colon Attending Provider Caden SANTIAGO, Dr. Torres Attending Provider Unavailindra Lindsey MD, Dr. Joseph Hopkins Attending Provider Trung SANTIAGO, Dr. Austin Attending Provider Rosalia SANTIAGO, Dr. Joseph Hopkins Other Provider Chloe SANTIAGO, Dr. Paola Lebron Primary Care Provider Mike SNATIAGO, Dr. Lin Attending Provider Mike SANTIAGO, Dr. Lin Referring Provider Jaydon TEST BAKER, Lela Primary Care Unavailable Carlos Bernal Attending Unavailable Dolores Carlos Referring Unavailable Brian Gonzales Consulting Unavailable Jolliff, Paola S Primary Care Unavailable Mike, Bulpitt Attending Unavailable Mike, Bulpitt Attending Unavailable Jolliff, Paola S Primary Care Unavailable Mike, Riley Consulting Unavailable Mike, Bulpitt Referring Unavailable Jaydon TEST BAKER, Lela Primary Care Unavailable Yann Isaiah Consulting Unavailable Darryn, Najma L Admitting Unavailable Brian Negrete Attending Unavailable Darryn Najma L Consulting Unavailable Brian Negrete Consulting Unavailable Jaydon TEST BAKER, Lela Primary Care Unavailable Joseph Lindsey Attending Unavailable Yann, Isaiah Consulting Unavailable White, Najma L Admitting Unavailable White, Najma L Consulting Unavailable Brian Negrete Consulting Unavailable Jaydon TEST BAKER, Lela Primary Care Unavailable Jaydon TEST BAKER, Lela Attending Unavailable Jolliff, Paola S Primary Care Unavailable Mike, Riley Referring Unavailable Mike, Bulpitt Attending Unavailable Isaiah Lerner Attending Unavailable Joseph Lindsey Consulting Unavailable Joseph Lindsey Attending Unavailable Jaydon TEST BAKER, Lela Primary Care Unavailable Joseph Lindsey F Referring Unavailable Isaiah Lerner Attending Unavailable Keoynabrcorky, Isaiah Consulting Unavailable White, Najma L Admitting Unavailable White, Najma L Consulting Unavailable Brian Negrete Consulting Unavailable Eagle Eubanks Attending Unavailable Jolliff, Paola S Referring Unavailable Jolliff, Paola S Primary Care Unavailable Jolliff, Paola S Primary Care Unavailable Jolliff, Paola S Referring Unavailable Mike, Bulpitt Attending Unavailable Jaydon TEST BAKER, Lela Primary Care Unavailable Jaydon TEST BAKER, Lela Referring Unavailable Carlos Bernal Attending Unavailable Jaydon TEST BAKER, Lela Primary Care Unavailable Laney Ferreira NP Attending Unavailable Jolliff, Paola S Referring Unavailable Jaydon TEST BAKER, Lela Primary Care Unavailable Jaydon TEST BAKER, Lela Referring Unavailable Carlos Bernal Attending Unavailable Jaydon TEST BAKER, Lela Primary Care Unavailable Jaydon TEST BAKER, Lela Referring Unavailable Carlos Bernal Attending Unavailable Jaydon TEST BAKER, Lela Primary Care Unavailable Jaydon TEST BAKER, Lela Referring Unavailable Jayodn TEST BAKER, Lela Attending Unavailable Jaydon TEST BAKER, Lela Primary Care Unavailable Carlos Bernal Attending Unavailable Carlos Bernal Referring Unavailable Brian Negrete Attending Unavailable Geovanna Nino Attending Unavailable Jolliff, Paola S Referring Unavailable Jolliff, Paola S Attending Unavailable Paola Corona S Primary Care Unavailable Chloe, Paola S Referring Unavailable Chloe, Paola S Attending Unavailable Chloe, Paola S Primary Care Unavailable Najma Cates Attending Unavailable Carlos Bernal Attending Unavailable Chloe, Paola S Primary Care Unavailable Chloe, Paola S Referring Unavailable Chloe SANTIAGO, Dr. Paola Lebron Primary Care Provider [phone] Rosalia SANTIAGO, Dr. Joseph Hopkins Referring Provider Latanya TEST BAKER-C, Lizzy Attending Provider Allergies Allergy Classification Reported Allergen(s) Allergy Type Date of Onset Reaction(s) Facility (20 sources) doxycycline; Translations: [doxycycline] drug allergy 2 Nausea [facility] Work Phone: (1 source) erythromycin drug allergy [facility] Work Phone: (19 sources) Erythromycin Drug Allergy 2 [facility] (20 sources) Penicillins; Translations: [Penicillins] Propensity to adverse reactions 2 Hives [facility] (10 sources) Clindamycin Drug Allergy 5 [facility] (1 source) Clindamycin Drug Allergy 5 [facility] Repository (1 source) Erythromycin Drug Allergy 5 [facility] Medications Current Medications Medication Drug Class(es) [...] mouth three times daily CALCIUM CARBONATE-VITAMIN D [id number] Selina Schmitz LPN Calcium Carbonate/Vitamin D tablet (11 sources) Start: 08-01-2013 Calcium Carbonate/Vitamin D tablet Active 1 {tbl} PO DAILY August 01, 2013 12:00am Lactobacillus Combination No.9 (Adult 50 Plus Probiotic) 4 billion cell capsule (13 sources) Start: 03-23-2023 take 4 capsules by [...] meal levothyroxine sodium 0.075 mg oral tablet (20 sources) l-Thyroxine Start: 04-12-2025 Levothyroxine 75 mcg tablet Active 50 ug PO daily April 12, 2025 3:02pm Start: 01-11-2025 End: 04-12-2025 take 1 tablet by mouth once daily Levothyroxine 75 mcg tablet Discontinued 75 ug PO daily January 11, 2025 12:00am April 12, 2025 3:02pm 24 hr metoprolol succinate 50 mg extended release oral tablet (10 sources) beta-Adrenergic Pinky Start: 01-11-2025 take 1 [...] August 01, 2013 12:00am Multivitamins,Therapeutic ta blet (11 sources) Start: 08-01-2013 Multivitamins, Therapeutic tablet Active 1 {tbl} PO DAILY August 01, 2013 12:00am Completed/Discontinued Medications Medication Drug Class(es) Dates Sig (Normalized) Sig (Original) calcium carbonate 500 mg chewing gum (1 source) TUMS 500 MG CHEW Use as directed as needed CALCIUM CARBONATE ANTACID [id number] Selina Ainsley RAMIREZ cephalexin 500 mg oral capsule (12 sources) Cephalosporin Antibacterial Start: 12-10-2023 End: 12-20-2023 take 1 capsule by mouth every twelve hours Cephalexin 500 mg capsule Discontinued 500 mg PO Q12H 20 10 0 December 10, 2023 1:00am December 19, 2023 1:00am December 20, 2023 1:04am clindamycin 300 mg oral capsule (12 sources) Lincosamide Antibacterial Start: 02-08-2024 End: 04-05-2024 take 1 capsule by mouth three times daily Clindamycin Hcl 300 mg capsule Discontinued 300 mg PO THREE TIMES A DAY 15 February 08, 2024 12:00am April 05, 2024 2:55pm famotidine 20 mg oral tablet (11 sources) Histamine-2 Receptor Antagonist Start: 12-01-2024 End: 06-05-2025 take 1 tablet by mouth once daily Famotidine (Zantac-360 (Famotidine)) 20 mg tablet Discontinued 20 mg PO daily December 01, 2024 1:00am June 05, 2025 3:06pm MULTIPLE VITAMIN (1 source) take 1 tablet by mouth once daily MULTIVITAMINS TABS One tablet by mouth daily MULTIPLE VITAMIN [id number] Selina Schmitz LPN Nystatin 100,000 unit/mL suspension (11 sources) Start: 02-24-2024 End: 03-23-2024 take 1 [...] omeprazole 20 mg delayed release oral capsule (19 sources) Proton Pump Inhibitor Start: 02-16-2022 End: 03-23-2023 take 1 capsule by mouth once daily Omeprazole 20 mg capsule,delayed release(DR/EC) Discontinued 20 mg PO DAILY February 16, 2022 12:00am March 23, 2023 1:27pm ondansetron 4 mg disintegrating oral tablet (17 sources) Serotonin-3 Receptor Antagonist Start: 06-05-2022 End: [...] hours as needed for nausea PROMETHAZINE HCL [id number] Selina Schmitz LPN psyllium 3400 mg powder for oral suspension (20 sources) Start: 08-02-2013 End: 12-01-2024 take 1 [...] 1/2 tsp with water once daily PSYLLIUM [id number] Selina Schmitz LPN vitamin b6 100 mg oral table t (20 sources) Start: 08-02-2013 End: 02-18-2017 Pyridoxine Hcl (Vitamin B-6) 100 MG tablet Discontinued 50 mg PO TWICE A DAY August 02, 2013 12:00am February 18, 2017 1:35pm End: 11-21-2014 take 1 tablet by mouth twice daily VITAMIN B-6 50 MG TABS One tablet by mouth twice daily PYRIDOXINE HCL [id number] Selina Schmitz LPN Problems Problem Classification Problem Date Documented Date Episodic/Chronic Abdominal pain (20 sources) Right upper quadrant pain; Translations: [Right upper quadrant pain] Onset: 06-06-2025 05-02-2021 Episodic Comment on above: Patient has describe d this pain as more discomfort and has minimal tenderness on exam Cancer of uterus (20 sources) Adenocarcinoma of endometrium; Translations: [Malignant neoplasm of uterus] Onset: 11-09-2012 03-24-2013 Chronic Comment on above: CA125 is 30 on 2023. CA125 was 83.5 on 08/2025. CA125 was 83.5 on 08/2025.CT shows L lung mass. 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 Prognosis is poor but depends on therapy.Discussed therapy options, Taxol, Carboplatin and Keytruda, Keytruda + Lenvima Cancer of uterus (20 sources) History of malignant neoplasm of endometrium; Translations: [Personal history of malignant neoplasm of other parts of uterus] Onset: 04-12-2025 Episodic Comment on above: No evidence of disea se clinically. CA125 is high, need to R/O metastatic disease. CA125 is high.CT on 04/17/2025 shows Lung mass Cardiac dysrhythmias (20 sources) Tachycardia; Translations: [Tachycardia, unspecified] Onset: 01-11-2025 12-01-2024 Episodic Diverticulosis and diverticulitis (19 sources) Diverticular disease; Translations: [Diverticulosis of intestine, part unspecified, without perforation or abscess without bleeding] 05-02-2021 Chronic E Codes: Fall (20 sources) Fall; Translations: [Unspecified fall, initial encounter] 02-24-2022 Episodic Esophageal disorders (11 sources) Gastric reflux; Translations: [Gastro-esophageal reflux disease without esophagitis] 12-01-2024 Chronic Essential hypertension (19 sources) Hypertensive disorder; Translations: [Essential (primary) hypertension] Onset: 01-11-2025 02-24-2024 Chronic Genitourinary symptoms and ill-defined conditions (13 sources) Increased frequency of urination; Translations: [Frequency of micturition] 02-04-2024 Episodic Influenza (12 sources) Influenza due to Influenza A virus; Translations: [Influenza due to other identified influenza virus with other respiratory manifestations] 12-10-2023 Episodic Intestinal obstruction without hernia (1 source) Partial intestinal obstruction, unspecified as to cause; Translations: [Partial intestinal obstruction, unspecified as to cause] Onset: 06-04-2025 Episodic Malignant neoplasm without specification of site (11 sources) Malignant neoplastic disease; Translations: [Malignant (primary) neoplasm, unspecified] 12-01-2024 Chronic Comment on above: Uterine CA 2013 chem o and radiation complete Mycoses (11 sources) Candidiasis of mouth; Translations: [Candidal stomatitis] 12-01-2024 Episodic Nausea and vomiting (20 sources) Nausea; Translations: [Nausea] Onset: 06-06-2025 07-16-2022 Episodic Comment on above: Is an [...] me know if her symptoms do persist. Other injuries and conditions due to external causes (10 sources) Other specified injuries of thorax, initial encounter; Translations: [Contusion of rib on right side] 02-24-2022 Episodic Other lower respiratory disease (18 sources) Lung mass; Translations: [Other nonspecific abnormal finding of lung field] 03-24-2013 Episodic Other lower respiratory disease (20 sources) Multiple nodules of lung; Translations: [Other nonspecific abnormal finding of lung field] 03-21-2021 Episodic Comment on above: Stable. Other lower respiratory disease (6 sources) Other nonspecific abnormal finding of lung field; Translations: [Other nonspecific abnormal finding of lung field] Onset: 05-19-2025 Episodic Other lower respiratory disease (13 sources) Cough; Translations: [Cough] 12-26-2023 Episodic Other lower respiratory disease (20 sources) Nodule of lung; Translations: [Solitary pulmonary nodule] 12-01-2024 Episodic Comment on above: right upper lobe Other screening for suspected conditions (not mental disorders or infectious disease) (2 sources) Other abnormal tumor markers; Translations: [Abnormal electrocardiogram [ECG] [EKG]] Onset: 02-14-2025 Episodic Other upper respiratory infections (20 sources) Posterior rhinorrhea; Translations: [Postnasal drip] 12-26-2023 Episodic Secondary malignancies (3 sources) Secondary malignant neoplasm of lung; Translations: [Secondary malignant neoplasm of unspecified lung] 06-05-2025 Chronic Comment on above: From Uterine cancer. Sprains and strains (20 sources) Strain of muscle at thorax level; Translations: [Strain of muscle and tendon of unspecified wall of thorax, initial encounter] 12-01-2024 Episodic Superficial injury; contusion (20 sources) Contusion of rib; Translations: [Contusion of right front wall of thorax, initial encounter] 02-24-2022 Episodic Thyroid disorders (1 source) Hypothyroidism, unspecified; Translations: [Hypothyroidism, unspecified] Onset: 03-03-2025 Chronic Unclassified (20 sources) Family history of cancer of colon; Translations: [Family history of malignant neoplasm of breast] 11-21-2014 Episodic Unclassified (1 source) Supraventricular tachycardia, unspecified; Translations: [Supraventricular tachycardia, unspecified] Onset: 02-14-2025 Results Test Name Value Interpretation Reference Range Facility Oncology Visit Reporton 05-13 Oncology Visit Report [facility] [place] [address] OFFICE VISIT Date of Service: 06/05/25 1452 MR#: [id number] Acct: [id number] Name: LUZ CLANCY Rep #: [id number] : 1940 From: Carlos Bernal MD Age/Sex: 85/F Location: [facility] Status: Signed HPI Subjective Date of Service 06/05/25 Chief Complaint F/u for endometrial cancer. History [...] Found to have increased Ca125, had CT done which showed L sided lung mass 04/17/2025. She had a PET/CT and L lung biopsy done, comes for follow up. Has a chronic cough. denies fever, weight loss, night sweats. [facility] Medical History CKD (chronic kidney disease), stage II HTN (hypertension) Diverticulosis Cancer Gastric reflux Pulmonary nodule Surgical History History of tubal ligation History of hysterectomy Family History Mother Colon cancer Breast cancer Daughter Thyroid disorder Father No problems noted. Social History household members: none Smoking Status: Never smoker alcohol intake: never substance use type: does not use Intake Vital Signs 04/24/25 15:53 05/22/25 09:14 06/05/25 14:52 Height 5 ft 5 in 5 ft 5 in 5 ft 5 in Weight: 56.359 kg BMI 20.7 BP 179/97 H Blood Pressure Location Lt brachial Position Sitting Respiration 18 Pulse 83 Pulse Source Monitor Temp 97.9 F Temperature Source Temporal Artery Pulse Oximetry (%) 99 Oxygen Delivery Method room air Intake Is patient in pain?: No Allergies doxycycline Adverse Reaction (Severe, Verified 06/05/25 15:06) Nausea erythromycin base (Erythromycin Base) Adverse Reaction (Severe, Verified 06/05/25 15:06) Nausea clindamycin Adverse Reaction (Intermediate, Verified 06/05/25 15:06) Thrush Penicillins Adverse Reaction (Intermediate, Verified 06/05/25 15:06) Hives Medications ???Medication ???Instructions ???Recorded ???Confirmed ???Type Calcium Carbonate/Vitamin D 1 tab PO DAILY 08/01/13 06/05/25 H istory Multivitamins,Therapeutic 1 tab PO DAILY 08/01/13 06/05/25 H istory lactobacillus combination no.9 4 4,000 mmu cells PO DAILY 03/23/23 06/05/25 History billion cell capsule (Adult 50 Plus Probiotic) metoprolol succinate 50 mg 50 mg PO QDAY #90 tabs 01/11/25 Rx tablet,extended release 24 hr (Toprol XL) levothyroxine 75 mcg tablet 50 mcg PO QDAY 04/12/25 06/05/25 H istory Have you fallen in the past year?: No Central Venous Access Central Venous Access: No 04/17/2025 PET/CT reviewed. PET/PET/CT Tumor Base -Thigh Init IMPRESSION: 1. [...] of the PET will be reported separately. 05/10/2025 CT guided lung L lung biopsy Pathology reviewed. MICROSCOPIC DIAGNOSIS A. Lung, left, CT-guided core biopsy: - Adenocarcinoma consistent with metastasis ??? see note. Note: IHC was performed to characterize the malignant cells as follows ??? Positive for pancytokeratin, CK7, TTF-1 (patchy), ER, Vimentin, CD10, NEREYDA-3 (patchy) and PAX8. Ki67 is high. Negative for CK20, Napsin A, CK5/6, p40, CDX2. These findings are compatible with the patient???s history of primary endometrial adenocarcinoma. No pathology is available for review/correlation. A. Lung, left, CT-guided lung biopsy: PDS-L1 IHC 22C3 pharmDx expression level : Positive for PD-L1 expression (CPS>1) Combined Positive Score: 8 HER2 IHC Result: Negative (Score 1+) Mismatch Repair Protein (MMR) Nuclear Expression by IHC: MLH1: Present/Intact (more content not included)... Normal [facility] Anion gap in Serum or Plasma Ordered By: Lela Interiano on 05-29-2025 Anion gap [Moles/Vol] 13 mmol/L 5-15 [facility] BUN/creatinine ratioOrdered By: Lela Interiano on 05-29-2025 Urea nitrogen/Creatinine [Mass ratio] 14.3 mg/mg 10-20 [facility] Bilirubin, totalOrdered By: Lela Interiano on 05-29-2025 Bilirubin [Mass/Vol] 0.21 mg/dL 0.00-1.30 [facility] Carbon dioxide, total [Moles /volume] in Central venous bloodOrdered By: Lela Interiano on 05-29-2025 CO2 [Moles/Vol] 23.5 mmol/L 21.0-32.0 [facility] Chloride assayOrdered By: Travis Interiano on 05-29-2025 Chloride [Moles/Vol] 99 mmol/L 98-108 [facility] Comprehensive Metabolic Prof ilon 05-29-2025 Albumin [Mass/Vol] 4.1 g/dL Normal 3.4-4.8 [facility] Comment on above: Order Comment: Order Date: 05/29/25 Order Info: 0786-1 - CMP Order Info: [id number] - TSH Performed By: #### L 500.4050, [id number] #### [facility] [address] [place], [place], [id number] Albumin/Globulin [Mass ratio] 1.2 {ratio} Normal 0.9-2.4 [facility] Comment on above: Order Comment: Order Date: 05/29/25 Order Info: 0786-1 - CMP Order Info: 3015-3 - TSH Performed By: #### L 500.4050, [id number] #### [facility] [address] [place], [address] ALK PHOS 70 U/L Normal 35-104 [facility] Comment on above: Order Comment: Order Date: 05/29/25 Order Info: 0786-1 - CMP Order Info: 6-3 - TSH Performed By: #### L 500.4050, [id number] #### [facility] [address] [place], [address] ALT [Catalytic activity/Vol] 19 U/L Normal <=34 [facility] Comment on above: Order Comment: Order Date: 05/29/25 Order Info: 0786-1 - CMP Order Info: 3015-3 - TSH Performed By: #### L 500.4050, [id number] #### [facility] [address] [place], [address] AST [Catalytic activity/Vol] 28 U/L Normal <=31 [facility] Comment on above: Order Comment: Order Date: 05/29/25 Order Info: 0786-1 - CMP Order Info: 301-3 - TSH Performed By: #### L 500.4050, [id number] #### [facility] [address] [place], [address] Bilirubin [Mass/Vol] 0.21 mg/dL Normal 0.00-1.30 [facility] Comment on above: Order Comment: Order Date: 05/29/25 Order Info: 0786-1 - CMP Order Info: 3016-3 - TSH Performed By: #### L 500.4050, [id number] #### [facility] [address] [place], [address] BUN/CRE 14.3 RATIO Normal 10-20 [facility] Comment on above: Order Comment: Order Date: 05/29/25 Order Info: 0786-1 - CMP Order Info: 3015-3 - TSH Performed By: #### L 500.4050, [id number] #### [facility] [address] [place], [address] Calcium [Mass/Vol] 9.9 mg/dL Normal 7.6-11.0 [facility] Comment on above: Order Comment: Order Date: 05/29/25 Order Info: 07-1 - CMP Order Info: 3 - TSH Performed By: #### L 500.4050, [id number] #### [facility] [address] [place], [address] Chloride [Moles/Vol] 99 mmol/L Normal 98-108 [facility] Comment on above: Order Comment: Order Date: 05/29/25 Order Info: 0786-1 - CMP Order Info: 3 - TSH Performed By: #### L 500.4050, [id number] #### [facility] [address] [place], [address] CO2 [Moles/Vol] 23.5 mmol/L Normal 21.0-32.0 [facility] Comment on above: Order Comment: Order Date: 05/29/25 Order Info: 0786-1 - CMP Order Info: 3 - TSH Performed By: #### L 500.4050, [id number] #### [facility] [address] [place], [address] Creatinine [Mass/Vol] 0.66 mg/dL Low 0.70-1.20 [facility] Comment on above: Order Comment: Order Date: 05/29/25 Order Info: 0786-1 - CMP Order Info: 301-3 - TSH Performed By: #### L 500.4050, [id number] #### [facility] [address] [place], [address] GAP 13 Normal 5-15 [facility] Comment on above: Order Comment: Order Date: 05/29/25 Order Info: 0786- - CMP Order Info: 3 - TSH Performed By: #### L 500.4050, [id number] #### [facility] [address] [place], [address] GFR/1.73 sq M.predicted among non-blacks MDRD (S/P/Bld) [Vol rate/Area] 86 mL/min/{1.73_m2} Normal >60 [facility] Comment on above: Order Comment: Order Date: 05/29/25 Order Info: 07 - CMP Order Info: 3 - TSH Result Comment: mL/m in/1.73m2 CKD-EPI Creatinine Equation (2020) Performed By: #### L 500.4050, [id number] #### [facility] [address] [place], [address] Globulin (S) [Mass/Vol] 3.4 g/dL Normal 2.2-4.2 [facility] Comment on above: Order Comment: Order Date: 05/29/25 Order Info: 0786- - CMP Order Info: 3015-12 - TSH Performed By: #### L 500.4050, [id number] #### [facility] [address] [place], [address] Glucose [Mass/Vol] 98 mg/dL Normal 70-99 [facility] Comment on above: Order Comment: Order Date: 05/29/25 Order Info: 0786- - CMP Order Info: [id number] - TSH Performed By: #### L 500.4050, [id number] #### [facility] [address] [place], [address] Potassium [Moles/Vol] 4.4 mmol/L Normal 3.3-5.1 [facility] Comment on above: Order Comment: Order Date: 05/29/25 Order Info: 0786- - CMP Order Info: [id number] - TSH Performed By: #### L 500.4050, [id number] #### [facility] [address] [place], [address] Sodium [Moles/Vol] 135 mmol/L Normal 133-145 [facility] Comment on above: Order Comment: Order Date: 05/29/25 Order Info: 0786-1 - CMP Order Info: 3 - TSH Performed By: #### L 500.4050, [id number] #### [facility] [address] [place], [address] T PROT 7.5 g/dL Normal 5.9-8.4 [facility] Comment on above: Order Comment: Order Date: 05/29/25 Order Info: 0786- - CMP Order Info: 3 - TSH Performed By: #### L 500.4050, [id number] #### [facility] [address] [place], [address] Urea nitrogen [Mass/Vol] 9 mg/dL Normal 4-19 [facility] Comment on above: Order Comment: Order Date: 05/29/25 Order Info: [id number] - CMP Order Info: [id number] - TSH Performed By: #### L 500.4050, L501.9520 #### [facility] [address], [address] Glomerular filtration rate ( GFR) estimation/1.73 sq m using serum, plasma, or whole bOrdered By: Lela Interiano on 05-29-2025 GFR/1.73 sq M.predicted among non-blacks MDRD (S/P/Bld) [Vol rate/Area] 86 mL/min/{1.73_m2} >60 [facility] Comment on above: mL/min/1.73m2 CKD-EP I Creatinine Equation (2020) Laboratory - Chemistry and C hemistry - challengeOrdered By: Lela Interiano on 05-29-2025 AST [Catalytic activity/Vol] 28 U/L <32 [facility] Potassium measurement (mass/ volume)Ordered By: Lela Interiano on 05-29-2025 Potassium (Unsp spec) [Mass/Vol] 4.4 mmol/L 3.3-5.1 [facility] Serum creatinine measurement (mass/volume)Ordered By: Lela Interiano on 05-29-2025 Creatinine [Mass/Vol] 0.66 mg/dL Low 0.70-1.20 [facility] Serum globulin measurementOr dered By: Lela Interiano on 05-29-2025 Globulin (S) [Mass/Vol] 3.4 g/dL 2.2-4.2 [facility] Serum glucose measurement (m ass/volume)Ordered By: Llea Interiano on 05-29-2025 Glucose [Mass/Vol] 98 mg/dL 70-99 [facility] Serum or plasma alanine thompson otransferase (ALT) measurementOrdered By: Lela Interiano on 05-29-2025 ALT [Catalytic activity/Vol] 19 U/L <35 [facility] Serum or plasma albumin charlene urement (mass/volume)Ordered By: Lela Interiano on 05-29-2025 Albumin [Mass/Vol] 4.1 g/dL 3.4-4.8 [facility] Serum or plasma albumin/glob ulin mass ratioOrdered By: Lela Interiano on 05-29-2025 Albumin/Globulin [Mass ratio] 1.2 {ratio} 0.9-2.4 [facility] Serum or plasma alkaline dameon sphatase measurementOrdered By: Lela Interiano 05-29-2025 ALP [Catalytic activity/Vol] 70 U/L 35-104 [facility] Serum or plasma calcium charlene urement (mass/volume)Ordered By: Lela Interiano 05-29-2025 Calcium [Mass/Vol] 9.9 mg/dL 7.6-11.0 [facility] Serum or plasma urea nitroge n measurement (mass/volume)Ordered By: Lela Interiano on 05-29-2025 Urea nitrogen [Mass/Vol] 9 mg/dL 4-19 [facility] Sodium levelOrdered By: Lela Interiano on 05-29-2025 Sodium [Moles/Vol] 135 mmol/L 133-145 [facility] TSH DL <= 0.005 mIU/L QnOrde red By: Lela Interiano on 05-29-2025 TSH Qn 4.410 uIU/mL High 0.300-4.200 [facility] Thyroid Stim Hormone (TSH)on 05-29-2025 TSH 4.410 uIU/mL High 0.300-4.200 [facility] Comment on above: Order Comment: Order Date: 05/29/25 Order Info: [id number] - CMP Order Info: [id number] - TSH Performed By: #### L 500.4050, L501.9520 #### [facility] [address] [facility] [place], [place], [address] Total proteinOrdered By: Samanta Interiano on 05-29-2025 Protein [Mass/Vol] 7.5 g/dL 5.9-8.4 [facility] Abdomen/Pelvis WITH Contrast on 05-22-2025 Abdomen/Pelvis WITH Contrast [facility] Imaging Services [address] [place], [place] [address] Abdomen/Pelvis WITH Contrast MR#: [id number] Acct: [id number] Name: LUZ CLANCY Rep #: [id number] : 1940 F 85 From: Jorge garibay MD PCP: MARILEE Partida Status: ADM IN Study: Abdomen/Pelvis WITH Contrast Date of Exam: 09/05 Exam# [id number] Ordering Dr: Isaiah Lerner PROCEDURE: ABDOMEN/PELVIS WITH CONTRAST 05/22/2025 REASON FOR EXAM: SBO History of uterine cancer. TECHNIQUE: ABDOMEN/PELVIS WITH CONTRAST Coronal and Sagittal reconstruction series were provided. CONTRAST: Isovue-300 VOLUME: 95 mL One or more dose reduction techniques were used (e.g., Automated exposure control, adjustment of the mA and/or kV according to patient size, use of iterative reconstruction technique. RADIATION DOSE SUMMARY: CTDlvol: 9.6 mGy DLP: 469.04 mGycm COMPARISON: Prior study dated May 18, 2025. FINDINGS: Lung bases: Stable 9 mm nodule in the anterior aspect of the left lower lobe abutting the heart shadow. Increased linear markings at the lung bases suggestive of atelectasis and/or scarring. Liver: Diffuse fatty infiltration. Gallbladder: Sludge is seen within the gallbladder lumen. Spleen: Normal size. Pancreas: Diffuse fatty atrophy. Adrenals: Unremarkable Kidneys: Stable 1 cm cyst in the peripheral lateral aspect of the right kidney. Bladder: Unremarkable Reproductive Organs: Prior hysterectomy. Adnexal regions are unremarkable. Bowel: No bowel obstruction. Sigmoid diverticulosis. Appendix: The appendix is not identified. There is no inflammatory process identified in the right lower quadrant to suggest appendicitis. Lymph nodes: Unremarkable. Vasculature: Mild diffuse atherosclerotic calcifications are noted. Peritoneum / Retroperitoneum: Unremarkable Bones: Degenerative changes of the spine. CT/Abdomen/Pelvis WITH Contrast IMPRESSION: No evidence of bowel obstruction. Sigmoid diverticulosis. Stable 9 mm nodule in the anterior aspect of the left lower lobe abutting the heart. Reading Location: [place] [address] CC: MARILEE Interiano; Dr. Isaiah Lerner MD Rug Receiving Clerk: Signed Normal [facility] Absolute lymphocyte countOrd ered By: Brian Negrete on 05-22-2025 Lymphocytes Auto (Unsp spec) [#/Vol] 0.71 10*3/uL Low 0.83-4.51 [facility] Absolute neutrophil countOrd ered By: Brian Negrete on 05-22-2025 Neutrophils (Bld) [#/Vol] 4.4 10*3/uL 2.0-7.7 [facility] Anion gap in Serum or Plasma Ordered By: Brian Negrete on 05-22-2025 Anion gap [Moles/Vol] 20 mmol/L High 5-15 [facility] Automated lymphocyte count a s percentage of total leukocytesOrdered By: Brian Negrete on 05-22-2025 Lymphocytes/100 WBC Auto (Unsp spec) 12.3 % Low 19-41 [facility] BUN/creatinine ratioOrdered By: Brian Negrete on 05-22-2025 Urea nitrogen/Creatinine [Mass ratio] 21.8 mg/mg High 10-20 [facility] Basic Metabolic Profile (BMP )on 05-22-2025 BUN/CRE 21.8 RATIO High 10-20 [facility] Comment on above: Performed By: #### L 100.0100, L500.2500 ####[facility] [address] [place], [address] Calcium [Mass/Vol] 9.4 mg/dL Normal 7.6-11.0 [facility] Comment on above: Performed By: #### L 100.0100, L500.2500 ####[facility] [address] [place], [address] Chloride [Moles/Vol] 99 mmol/L Normal 98-108 [facility] Comment on above: Performed By: #### L 100.0100, L500.2500 ####[facility] [address] [place], [address] CO2 [Moles/Vol] 16.2 mmol/L Low 21.0-32.0 [facility] Comment on above: Performed By: #### L 100.0100, L500.2500 ####[facility] [address] [place], [address] Creatinine [Mass/Vol] 0.80 mg/dL Normal 0.70-1.20 [facility] Comment on above: Performed By: #### L 100.0100, L500.2500 ####[facility] [address] [place], [address] ECRCL 46.69 ml/min Low 50-250 [facility] Comment on above: Performed By: #### L 100.0100, L500.2500 ####[facility] [address] [place], [address] GAP 20 High 5-15 [facility] Comment on above: Performed By: #### L 100.0100, L500.2500 ####[facility] [address] [place], [address] GFR/1.73 sq M.predicted among non-blacks MDRD (S/P/Bld) [Vol rate/Area] 73 mL/min/{1.73_m2} Normal >60 [facility] Comment on above: Result Comment: mL/m in/1.73m2 CKD-EPI Creatinine Equation (2020) Performed By: #### L 100.0100, L500.2500 ####[facility] [address] [place], [address] Glucose [Mass/Vol] 62 mg/dL Low 70-99 [facility] Comment on above: Performed By: #### L 100.0100, L500.2500 ####[facility] [address] [place], [address] Potassium [Moles/Vol] 3.7 mmol/L Normal 3.3-5.1 [facility] Comment on above: Performed By: #### L 100.0100, L500.2500 ####[facility] [address] [place], [address] Sodium [Moles/Vol] 135 mmol/L Normal 133-145 [facility] Comment on above: Performed By: #### L 100.0100, L500.2500 ####[facility] [address] [place], [address] Urea nitrogen [Mass/Vol] 17 mg/dL Normal 4-19 [facility] Comment on above: Performed By: #### L 100.0100, L500.2500 ####[facility] [address] [place], [address] Basophil percentageOrdered B y: Brian Negrete on 05-22-2025 Basophils/100 WBC (Bld) 0.5 % 0-1 [facility] CBC W/Diff, Automatedon 05-12 Absolute Lymph 0.71 X10 3/uL Low 0.83-4.51 [facility] Comment on above: Performed By: #### L 100.0100, L500.2500 ####[facility] [address] [place], [address] Absolute Neut 4.4 X10 3/uL Normal 2.0-7.7 [facility] Comment on above: Performed By: #### L 100.0100, L500.2500 ####[facility] [address] [place], [address] Basophils/100 WBC (Bld) 0.5 % Normal 0-1 [facility] Comment on above: Performed By: #### L 100.0100, L500.2500 ####[facility] [address] [place], [address] Eosinophils/100 WBC (Bld) 1.2 % Normal 0-5 [facility] Comment on above: Performed By: #### L 100.0100, L500.2500 ####[facility] [address] [place], [address] Erythrocyte distribution width (RBC) [Ratio] 13.6 % Normal 11.6-14.6 [facility] Comment on above: Performed By: #### L 100.0100, L500.2500 ####[facility] [address] [place], [address] Hematocrit (Bld) [Volume fraction] 32.2 % Low 37-47 [facility] Comment on above: Performed By: #### L 100.0100, L500.2500 ####[facility] [address] [place], [address] Hemoglobin (Bld) [Mass/Vol] 10.4 g/dL Low 12.0-15.0 [facility] Comment on above: Performed By: #### L 100.0100, L500.2500 ####[facility] [address] [place], [address] IG% 0.300 Normal 0.0-0.9 [facility] Comment on above: Result Comment: IG% - Immature Granulocytes (promyelocytes, myelocytes and metamyelocytes) > 1% indicates that a LEFT SHIFT is Present. Performed By: #### L 100.0100, L500.2500 ####[facility] [address] [place], [address] Lymphocytes/100 WBC (Bld) 12.3 % Low 19-41 [facility] Comment on above: Performed By: #### L 100.0100, L500.2500 ####[facility] [address] [place], [address] MCH (RBC) [Entitic mass] 28.1 pg Normal 27.0-32.0 [facility] Comment on above: Performed By: #### L 100.0100, L500.2500 ####[facility] [address] [place], [address] MCHC (RBC) [Mass/Vol] 32.3 g/dL Normal 32-36 [facility] Comment on above: Performed By: #### L 100.0100, L500.2500 ####[facility] [address] [place], [address] MCV (RBC) [Entitic vol] 87.0 fL Normal 81-99 [facility] Comment on above: Performed By: #### L 100.0100, L500.2500 ####[facility] [address] [place], [address] Monocytes/100 WBC (Bld) 10.2 % High 0-10 [facility] Comment on above: Performed By: #### L 100.0100, L500.2500 ####[facility] [address] [place], [address] Neutrophils/100 WBC (Bld) 75.5 % High 47-70 [facility] Comment on above: Performed By: #### L 100.0100, L500.2500 ####[facility] [address] [place], [address] Nucleated RBC (Bld) [#/Vol] 0 10*3/uL Normal 0-5 [facility] Comment on above: Performed By: #### L 100.0100, L500.2500 ####[facility] [address] [place], [address] Platelet mean volume (Bld) [Entitic vol] 11.2 fL Normal 6.2-12.0 [facility] Comment on above: Performed By: #### L 100.0100, L500.2500 ####[facility] [address] [place], [address] Platelets (Bld) [#/Vol] 323 10*3/uL Normal 150-450 [facility] Comment on above: Performed By: #### L 100.0100, L500.2500 ####[facility] [address] [place], [address] RBC (Bld) [#/Vol] 3.70 10*6/uL Low 4.2-5.4 [facility] Comment on above: Performed By: #### L 100.0100, L500.2500 ####[facility] [address] [place], [address] RDW SD 43.3 fl Normal 35.1-43.9 [facility] Comment on above: Performed By: #### L 100.0100, L500.2500 ####[facility] [address] [place], [address] WBC (Bld) [#/Vol] 5.8 10*3/uL Normal 4.4-11.0 [facility] Comment on above: Performed By: #### L 100.0100, L500.2500 ####[facility] [address] [place], [address] Carbon dioxide, total [Moles /volume] in Central venous bloodOrdered By: Brian Negrete on 05-22-2025 CO2 [Moles/Vol] 16.2 mmol/L Low 21.0-32.0 [facility] Chloride assayOrdered By: Brock Negrete on 05-22-2025 Chloride [Moles/Vol] 99 mmol/L 98-108 [facility] Discharge Instructionon 05-12 Discharge Instruction [facility] Medical Records Department [address] [place] [address] Instructions for Home/Discharge Instructions 05/22/25 1156 MR#: [id number] Acct: [id number] Name: LUZ CLANCY Rep #: [id number] : 1940 85 From: Joseph Lindsey MD PCP: MARILEE Partida Status:ADM IN Discharge Instructions DC O2, CPAP, BIPAP needs Home O2 Discharge instructions: No Dressing / Incision Discharge Activity: Return to Normal Activity Dressing / Incision Call your doctor if you observe: Fever of 101 or Higher, Shortness of breath, Dizziness, Fainting spells, Swelling in the ankles, Chest pain and Increased palpitations (irregular heartbeat) Follow Up Care Test Results: Test results from this visit will be discussed in further detail at your follow-up appointment, if applicable. Discharge Plan Admission Admit Date/Time: 05/19/25 11:54 Attending Provider: Joseph Lindsey Primary Care Provider: Lela Interiano NP Consulting Providers: Isaiah Lerner; Najma Cates; Brian Negrete Discharge Orders/Prescriptions Prescriptions: Continued Adult 50 Plus Probiotic 4 billion cell capsule 4,000 mmu cells PO DAILY Rx Instructions: administer with a meal famotidine [Zantac-360 (famotidine)] 20 mg tablet 20 mg PO QDAY metoprolol succinate [Toprol XL] 50 mg tablet extended release 24 hr 50 mg PO QDAY Qty: 90 3RF levothyroxine 75 mcg tablet 50 mcg PO QDAY Multivitamins,Therapeutic tablet 1 tab PO DAILY Calcium Carbonate/Vitamin D tablet 1 tab PO DAILY Referrals / Follow Up: Lela Interiano NP, TEST BAKER-C [Primary Care Provider] - Within 1 Week Disposition Disposition (needs filled in before D/C Order can be placed): Home, Self Care 05/22/25 1206 Joseph Lindsey MD CC: MARILEE Interiano; Dr. Isaiah Lerner MD; Dr. Najma Cates MD; Dr. Brian Negrete MD Signed Normal [facility] Electrocardiogram reportOrde red By: Ashley Dennison on 05-22-2025 EKG study [facility] Cardiovascular Services [address] [place] [address] 12 Lead EKG 05/18/25 2146 MR#: [id number] Acct: [id number] Name: LUZ CLANCY Rep #:[id number] : 1940 85 From: Ashley Dennison MD Attending Dr: Dr. Joseph Lindsey MD Status: ADM IN Ordering Dr: Jeffery Mcclain ate: 05/18/25 Location: [facility] Sex: F C Admitted: 05/19/25 Test Reason : DYSRHYTHMIA Blood Pressure : */* mmHG Vent. Rate : 122 BPM Atrial Rate : * BPM P-R Int : * ms QRS Dur : 162 ms QT Int : 444 ms P-R-T Axes : * 19 63 degrees QTcB Int : 632 ms Wide QRS tachycardia Left bundle branch block Abnormal ECG Confirmed by ASHLEY DENNISON ([id number]), assistant production editor PABLO MOSS ([id number]) on 05/22/2025 8:07:05 AM Referred By: Confirmed By: ASHLEY DENNISON 05/22/25 0807 Date _ Ashley Dennison MD CC: MARILEE Interiano; Dr. Jeffery Mcclain DO; Dr. Joseph Lindsey MD ~ Signed [facility] Other Phone: Eosinophil percentageOrdered By: Brian Negrete on 05-22-2025 Eosinophils/100 WBC (Bld) 1.2 % 0-5 [facility] Erythrocyte distribution wid th ratioOrdered By: Brian Negrete on 05-22-2025 Erythrocyte distribution width (RBC) [Ratio] 13.6 % 11.6-14.6 [facility] Erythrocyte distribution wid th standard deviationOrdered By: Brian Negrete on 05-22-2025 Erythrocyte distribution width (RBC) [Ratio] 43.3 fl 35.1-43.9 [facility] Glomerular filtration rate ( GFR) estimation/1.73 sq m using serum, plasma, or whole bOrdered By: Brian Negrete on 05-22-2025 GFR/1.73 sq M.predicted among non-blacks MDRD (S/P/Bld) [Vol rate/Area] 73 mL/min/{1.73_m2} >60 [facility] Comment on above: mL/min/1.73m2 CKD-EP I Creatinine Equation (2020) Hematocrit Auto (Bld) [Volum e fraction]Ordered By: Brian Negrete on 05-22-2025 Hematocrit (Bld) [Volume fraction] 32.2 % Low 37-47 [facility] Hemoglobin measurementOrdere d By: Brian Negrete on 05-22-2025 Hemoglobin (Bld) [Mass/Vol] 10.4 g/dL Low 12.0-15.0 [facility] Immature granulocytes/100 WB C Auto (Bld)Ordered By: Brian Negrete on 05-22-2025 Immature granulocytes/100 WBC (Bld) 0.300 % 0.0-0.9 [facility] Comment on above: IG% - Immature Granu locytes (promyelocytes, myelocytes and metamyelocytes) > 1% indicates that a LEFT SHIFT is Present. MCV (mean corpuscular volume ) determinationOrdered By: Brian Negrete on 05-22-2025 MCV (RBC) [Entitic vol] 87.0 fL 81-99 [facility] Mean corpuscular hemoglobin (MCH) determinationOrdered By: Brian Negrete on 05-22-2025 MCH (RBC) [Entitic mass] 28.1 pg 27.0-32.0 [facility] Mean corpuscular hemoglobin concentration (MCHC) determinationOrdered By: Brian Negrete on 05-22-2025 MCHC (RBC) [Mass/Vol] 32.3 g/dL 32-36 [facility] Mean platelet volume determi nationOrdered By: Brian Negrete on 05-22-2025 Platelet mean volume (Bld) [Entitic vol] 11.2 fL 6.2-12.0 [facility] Monocyte percentageOrdered B y: Brian Negrete on 05-22-2025 Monocytes/100 WBC (Bld) 10.2 % High 0-10 [facility] Neutrophil percentageOrdered By: Brian Negrete on 05-22-2025 Neutrophils/100 WBC (Bld) 75.5 % High 47-70 [facility] Nucleated red blood cell per centageOrdered By: Brian Negrete on 05-22-2025 Nucleated RBC/100 WBC (Bld) [Ratio] 0 % 0-5 [facility] Platelet countOrdered By: Brock Negrete on 05-22-2025 Platelets (Bld) [#/Vol] 323 10*3/uL 150-450 [facility] Potassium measurement (mass/ volume)Ordered By: Brian Negrete on 05-22-2025 Potassium (Unsp spec) [Mass/Vol] 3.7 mmol/L 3.3-5.1 [facility] RBC Auto (Bld) [#/Vol]Ordere d By: Brian Negrete on 05-22-2025 RBC (Bld) [#/Vol] 3.70 10*6/uL Low 4.2-5.4 [facility] Serum creatinine measurement (mass/volume)Ordered By: Brian Negrete on 05-22-2025 Creatinine [Mass/Vol] 0.80 mg/dL 0.70-1.20 [facility] Serum glucose measurement (m ass/volume)Ordered By: Brian Negrete on 05-22-2025 Glucose [Mass/Vol] 62 mg/dL Low 70-99 [facility] Serum or plasma calcium charlene urement (mass/volume)Ordered By: Brian Negrete on 05-22-2025 Calcium [Mass/Vol] 9.4 mg/dL 7.6-11.0 [facility] Serum or plasma urea nitroge n measurement (mass/volume)Ordered By: Brian Negrete on 05-22-2025 Urea nitrogen [Mass/Vol] 17 mg/dL 4-19 [facility] Sodium levelOrdered By: Paul Negrete on 05-22-2025 Sodium [Moles/Vol] 135 mmol/L 133-145 [facility] White blood cell (WBC) count Ordered By: Brian Negrete on 05-22-2025 WBC (Bld) [#/Vol] 5.8 10*3/uL 4.4-11.0 [facility] Abd Inc Decub and/or Erecton 05-21-2025 Abd Inc Decub and/or Erect [facility] Imaging Services [address] [place], [place] [address] Abd Inc Decub and/or Erect MR#: [id number] Acct: [id number] Name: LUZ CLANCY Rep #: [id number] : 1940 F 85 From: Joseline Kent MD PCP: MARILEE Partida Status: ADM IN Study: Abd Inc Decub and/or Erect Date of Exam: 05/21 Exam# [id number] Ordering Dr: Brian Negrete MD PROCEDURE: ABD INC DECUB AND/OR ERECT 05/21/2025 REASON FOR EXAM: SBO TECHNIQUE: ABD INC DECUB AND/OR ERECT FINDINGS: LUNG BASES: Lung bases clear where seen. BOWEL: The bowel gas pattern is nonspecific. No evidence of bowel obstruction. PERITONEUM/SOFT TISSUES: No appreciable free air. No abnormal calcifications. BONES: No acute osseous abnormality. Degenerative changes of the spine. Mild lumbar dextroscoliosis. RAD/Abd Inc Decub and/or Erect IMPRESSION: No acute abnormality. Reading Location: [id number] CC: TEST BAKER-C Lela Interiano; Dr. Brian Negrete MD Rug Receiving Clerk: Signed Normal [facility] Basic Metabolic Profile (BMP )on 05-21-2025 BUN/CRE 17.5 RATIO Normal 10-20 [facility] Comment on above: Performed By: #### L 100.0100, L500.2500 ####[facility] [address] [place], [address] Calcium [Mass/Vol] 9.1 mg/dL Normal 7.6-11.0 [facility] Comment on above: Performed By: #### L 100.0100, L500.2500 ####[facility] [address] [place], [address] Chloride [Moles/Vol] 100 mmol/L Normal 98-108 [facility] Comment on above: Performed By: #### L 100.0100, L500.2500 ####[facility] [address] [place], [address] CO2 [Moles/Vol] 18.9 mmol/L Low 21.0-32.0 [facility] Comment on above: Performed By: #### L 100.0100, L500.2500 ####[facility] [address] [place], [address] Creatinine [Mass/Vol] 0.73 mg/dL Normal 0.70-1.20 [facility] Comment on above: Performed By: #### L 100.0100, L500.2500 ####[facility] [address] [place], [address] ECRCL 46.53 ml/min Low 50-250 [facility] Comment on above: Performed By: #### L 100.0100, L500.2500 ####[facility] [address] [place], [address] GAP 15 Normal 5-15 [facility] Comment on above: Performed By: #### L 100.0100, L500.2500 ####[facility] [address] [place], [address] GFR/1.73 sq M.predicted among non-blacks MDRD (S/P/Bld) [Vol rate/Area] 81 mL/min/{1.73_m2} Normal >60 [facility] Comment on above: Result Comment: mL/m in/1.73m2 CKD-EPI Creatinine Equation (2020) Performed By: #### L 100.0100, L500.2500 ####[facility] [address] [place], [address] Glucose [Mass/Vol] 91 mg/dL Normal 70-99 [facility] Comment on above: Performed By: #### L 100.0100, L500.2500 ####[facility] [address] [place], [address] Potassium [Moles/Vol] 3.1 mmol/L Low 3.3-5.1 [facility] Comment on above: Performed By: #### L 100.0100, L500.2500 ####[facility] [address] [place], [address] Sodium [Moles/Vol] 134 mmol/L Normal 133-145 [facility] Comment on above: Performed By: #### L 100.0100, L500.2500 ####[facility] [address] [place], [address] Urea nitrogen [Mass/Vol] 13 mg/dL Normal 4-19 [facility] Comment on above: Performed By: #### L 100.0100, L500.2500 ####[facility] [address] [place], [address] CBC W/Diff, Automatedon 05-12 0-2024 Absolute Lymph 0.74 X10 3/uL Low 0.83-4.51 [facility] Comment on above: Performed By: #### L 100.0100, L500.2500 ####[facility] [address] [place], [address] Absolute Neut 3.8 X10 3/uL Normal 2.0-7.7 [facility] Comment on above: Performed By: #### L 100.0100, L500.2500 ####[facility] [address] [place], [address] Basophils/100 WBC (Bld) 0.2 % Normal 0-1 [facility] Comment on above: Performed By: #### L 100.0100, L500.2500 ####[facility] [address] [place], [address] Eosinophils/100 WBC (Bld) 1.1 % Normal 0-5 [facility] Comment on above: Performed By: #### L 100.0100, L500.2500 ####[facility] [address] [place], [address] Erythrocyte distribution width (RBC) [Ratio] 13.6 % Normal 11.6-14.6 [facility] Comment on above: Performed By: #### L 100.0100, L500.2500 ####[facility] [address] [place], [address] Hematocrit (Bld) [Volume fraction] 30.9 % Low 37-47 [facility] Comment on above: Performed By: #### L 100.0100, L500.2500 ####[facility] [address] [place], [address] Hemoglobin (Bld) [Mass/Vol] 10.1 g/dL Low 12.0-15.0 [facility] Comment on above: Performed By: #### L 100.0100, L500.2500 ####[facility] [address] [place], [address] IG% 0.400 Normal 0.0-0.9 [facility] Comment on above: Result Comment: IG% - Immature Granulocytes (promyelocytes, myelocytes and metamyelocytes) > 1% indicates that a LEFT SHIFT is Present. Performed By: #### L 100.0100, L500.2500 ####[facility] [address] [place], [address] Lymphocytes/100 WBC (Bld) 13.8 % Low 19-41 [facility] Comment on above: Performed By: #### L 100.0100, L500.2500 ####[facility] [address] [place], [address] MCH (RBC) [Entitic mass] 28.2 pg Normal 27.0-32.0 [facility] Comment on above: Performed By: #### L 100.0100, L500.2500 ####[facility] [address] [place], [address] MCHC (RBC) [Mass/Vol] 32.7 g/dL Normal 32-36 [facility] Comment on above: Performed By: #### L 100.0100, L500.2500 ####[facility] [address] [place], [address] MCV (RBC) [Entitic vol] 86.3 fL Normal 81-99 [facility] Comment on above: Performed By: #### L 100.0100, L500.2500 ####[facility] [address] [place], [address] Monocytes/100 WBC (Bld) 13.2 % High 0-10 [facility] Comment on above: Performed By: #### L 100.0100, L500.2500 ####[facility] [address] [place], [address] Neutrophils/100 WBC (Bld) 71.3 % High 47-70 [facility] Comment on above: Performed By: #### L 100.0100, L500.2500 ####[facility] [address] [place], [address] Nucleated RBC (Bld) [#/Vol] 0 10*3/uL Normal 0-5 [facility] Comment on above: Performed By: #### L 100.0100, L500.2500 ####[facility] [address] [place], [address] Platelet mean volume (Bld) [Entitic vol] 11.5 fL Normal 6.2-12.0 [facility] Comment on above: Performed By: #### L 100.0100, L500.2500 ####[facility] [address] [place], [address] Platelets (Bld) [#/Vol] 305 10*3/uL Normal 150-450 [facility] Comment on above: Performed By: #### L 100.0100, L500.2500 ####[facility] [address] [place], [address] RBC (Bld) [#/Vol] 3.58 10*6/uL Low 4.2-5.4 [facility] Comment on above: Performed By: #### L 100.0100, L500.2500 ####[facility] [address] [place], [address] RDW SD 42.6 fl Normal 35.1-43.9 [facility] Comment on above: Performed By: #### L 100.0100, L500.2500 ####[facility] [address] [place], [address] WBC (Bld) [#/Vol] 5.4 10*3/uL Normal 4.4-11.0 [facility] Comment on above: Performed By: #### L 100.0100, L500.2500 ####[facility] [address] [place], [address] Magnesiumon 05-21-2025 Magnesium [Mass/Vol] 1.9 mg/dL Normal 1.5-2.2 [facility] Comment on above: Performed By: #### L 501.5200 #### [facility] [address] [place], [address] Magnesium measurement (mass/ volume)Ordered By: Geovanna Nino on 05-21-2025 Magnesium (Unsp spec) [Mass/Vol] 1.9 mg/dL 1.5-2.2 [facility] Abdomen Single View (Portabl e)on 05-20-2025 Abdomen Single View (Portable) [facility] Services [address] [place], [place] [id number] Abdomen Single View (Portable) MR#: [id number] Acct: [id number] Name: LUZ CLANCY Rep #: [id number] : 1940 F 85 From: Yovani Kingsley MD PCP: MARILEE Partida Status: ADM IN Study: Abdomen Single View (Portable) Date of Exam: 0 05/20/25 Exam# [id number] Ordering Dr: Geovanna Nino MD PROCEDURE: ABDOMEN SINGLE VIEW (PORTABLE) 05/20/2025 REASON FOR EXAM: SBO TECHNIQUE: ABDOMEN SINGLE VIEW (PORTABLE) COMPARISON: 05/19/2025 FINDINGS: Left base linear scar/atelectasis. No free air. Stomach and proximal small bowels are nondistended. There is redemonstration of distended distal small bowel. Nondistended large bowel. Lumbar spine scoliosis and degeneration. RAD/Abdomen Single View (Portable) IMPRESSION: Findings again suggest a partial distal small-bowel obstruction. Reading Location: [place] [address] CC: TEST BAKER-C Lela Interiano; Dr. Geovanna Nino MD Rug Receiving Clerk: Signed Normal [facility] Basic Metabolic Profile (BMP )on 05-20-2025 BUN/CRE 21.5 RATIO High 10-20 [facility] Comment on above: Performed By: #### L 500.4050, L501.9420 #### [facility] [address] [place], [place], [id number] Calcium [Mass/Vol] 8.8 mg/dL Normal 7.6-11.0 [facility] Comment on above: Performed By: #### L 500.4050, L501.20 #### [facility] [address] [place], [address] Chloride [Moles/Vol] 103 mmol/L Normal 98-108 [facility] Comment on above: Performed By: #### L 500.4050, L501.9520 #### [facility] [address] [place], [address] CO2 [Moles/Vol] 17.7 mmol/L Low 21.0-32.0 [facility] Comment on above: Performed By: #### L 500.4050, L5.9520 #### [facility] [address] [place], [address] Creatinine [Mass/Vol] 0.79 mg/dL Normal 0.70-1.20 [facility] Comment on above: Performed By: #### L 500.4050, L5.9519 #### [facility] [address] [place], [address] ECRCL 45.86 ml/min Low 50-250 [facility] Comment on above: Performed By: #### L 500.4050, L501.9520 #### [facility] [address] [place], [address] GAP 14 Normal 5-15 [facility] Comment on above: Performed By: #### L 500.4050, L5.9520 #### [facility] [address] [place], [address] GFR/1.73 sq M.predicted among non-blacks MDRD (S/P/Bld) [Vol rate/Area] 73 mL/min/{1.73_m2} Normal >60 [facility] Comment on above: Result Comment: mL/m in/1.73m2 CKD-EPI Creatinine Equation (2020) Performed By: #### L 500.4050, L5.9520 #### [facility] [address] [place], [address] Glucose [Mass/Vol] 77 mg/dL Normal 70-99 [facility] Comment on above: Performed By: #### L 500.4050, L501.9520 #### [facility] [address] [place], [address] Potassium [Moles/Vol] 3.5 mmol/L Normal 3.3-5.1 [facility] Comment on above: Performed By: #### L 500.4050, L501.9520 #### [facility] [address] [place], [address] Sodium [Moles/Vol] 135 mmol/L Normal 133-145 [facility] Comment on above: Performed By: #### L 500.4050, L501.9520 #### [facility] [address] [place], [address] Urea nitrogen [Mass/Vol] 17 mg/dL Normal 4-19 [facility] Comment on above: Performed By: #### L 500.4050, L501.9520 #### [facility] [address] [place], [address] CBC W/Diff, Automatedon 08-0 9-5 Absolute Lymph 0.62 X10 3/uL Low 0.83-4.51 [facility] Comment on above: Performed By: #### L 500.4050, L501.9520 #### [facility] [address] [place], [address] Absolute Neut 3.0 X10 3/uL Normal 2.0-7.7 [facility] Comment on above: Performed By: #### L 500.4050, L501.9520 #### [facility] [address] [place], [address] Basophils/100 WBC (Bld) 0.7 % Normal 0-1 [facility] Comment on above: Performed By: #### L 500.4050, L501.20 #### [facility] [address] [place], [address] Eosinophils/100 WBC (Bld) 2.0 % Normal 0-5 [facility] Comment on above: Performed By: #### L 500.4050, L501.9520 #### [facility] [address] [place], [address] Erythrocyte distribution width (RBC) [Ratio] 14.0 % Normal 11.6-14.6 [facility] Comment on above: Performed By: #### L 500.4050, L501.9520 #### [facility] [address] [place], [address] Hematocrit (Bld) [Volume fraction] 29.6 % Low 37-47 [facility] Comment on above: Performed By: #### L 500.4050, L501.9520 #### [facility] [address] [place], [address] Hemoglobin (Bld) [Mass/Vol] 9.4 g/dL Low 12.0-15.0 [facility] Comment on above: Performed By: #### L 500.4050, L501.9520 #### [facility] [address] [place], [address] IG% 0.200 Normal 0.0-0.9 [facility] Comment on above: Result Comment: IG% - Immature Granulocytes (promyelocytes, myelocytes and metamyelocytes) > 1% indicates that a LEFT SHIFT is Present. Performed By: #### L 500.4050, L501.9520 #### [facility] [address] [place], [address] Lymphocytes/100 WBC (Bld) 13.8 % Low 19-41 [facility] Comment on above: Performed By: #### L 500.4050, L501.9520 #### [facility] [address] [place], [address] MCH (RBC) [Entitic mass] 28.0 pg Normal 27.0-32.0 [facility] Comment on above: Performed By: #### L 500.4050, L501.9520 #### [facility] [address] [place], [address] MCHC (RBC) [Mass/Vol] 31.8 g/dL Low 32-36 [facility] Comment on above: Performed By: #### L 500.4050, L501.9520 #### [facility] [address] [place], [address] MCV (RBC) [Entitic vol] 88.1 fL Normal 81-99 [facility] Comment on above: Performed By: #### L 500.4050, L501.9520 #### [facility] [address] [place], [address] Monocytes/100 WBC (Bld) 16.2 % High 0-10 [facility] Comment on above: Performed By: #### L 500.4050, L501.9520 #### [facility] [address] [place], [address] Neutrophils/100 WBC (Bld) 67.1 % Normal 47-70 [facility] Comment on above: Performed By: #### L 500.4050, L501.9520 #### [facility] [address] [place], [address] Nucleated RBC (Bld) [#/Vol] 0 10*3/uL Normal 0-5 [facility] Comment on above: Performed By: #### L 500.4050, L501.9520 #### [facility] [address] [place], [address] Platelet mean volume (Bld) [Entitic vol] 11.0 fL Normal 6.2-12.0 [facility] Comment on above: Performed By: #### L 500.4050, L501.9520 #### [facility] [address] [place], [address] Platelets (Bld) [#/Vol] 300 10*3/uL Normal 150-450 [facility] Comment on above: Performed By: #### L 500.4050, L501.9520 #### [facility] [address] [place], [address] RBC (Bld) [#/Vol] 3.36 10*6/uL Low 4.2-5.4 [facility] Comment on above: Performed By: #### L 500.4050, L501.9520 #### [facility] [address] [place], [address] RDW SD 45.1 fl High 35.1-43.9 [facility] Comment on above: Performed By: #### L 500.4050, L501.9520 #### [facility] [address] [place], [address] WBC (Bld) [#/Vol] 4.5 10*3/uL Normal 4.4-11.0 [facility] Comment on above: Performed By: #### L 500.4050, L501.9520 #### [facility] [address] [place], [address] Magnesiumon 05-20-2025 Magnesium [Mass/Vol] 2.0 mg/dL Normal 1.5-2.2 [facility] Comment on above: Performed By: #### L 500.4050, L501.9520 #### [facility] [address] [place], [address] Phosphoruson 05-20-2025 Phosphate [Mass/Vol] 3.0 mg/dL Normal 2.7-4.[address] [facility] Comment on above: Performed By: #### L 500.4050, L501.9520 #### [facility] [address] [place], [place], [address] Abdomen Single View (Portabl e)on 05-19-2025 Abdomen Single View (Portable) [facility] Imaging Services [address] [place] [address] Abdomen Single View (Portable) MR#: [id number] Acct: [id number] Name: LUZ CLANCY Rep #: [id number] : 1940 F 85 From: Yovani Kingsley MD PCP: MARILEE Partida Status: ADM [place] Study: Abdomen Single View (Portable) Date of Exam: 0 05/19/25 Exam# [id number] Ordering Dr: Najma Cates MD PROCEDURE: ABDOMEN SINGLE VIEW (PORTABLE) 05/19/2025 REASON FOR EXAM: ? PSBO TECHNIQUE: ABDOMEN SINGLE VIEW (PORTABLE) COMPARISON: CT 05/18/2025 FINDINGS: Clear lung bases. No free air. Recent CT showed a small-bowel obstruction, transition in the ileum. This is still present.. Nondistended large bowel. Lumbar spine scoliosis and degeneration. RAD/Abdomen Single View (Portable) IMPRESSION: Persistent small-bowel obstruction, transition point in the ileum. Refer to recent CT report. Reading Location: [place] [address] CC: BRYANC Lela Interiano; Dr. Najma Cates MD Rug Receiving Clerk: Signed Normal [facility] Absolute lymphocyte countOrd ered By: Najma Cates on 05-19-2025 Lymphocytes Auto (Unsp spec) [#/Vol] 0.42 10*3/uL Low 0.83-4.51 [facility] Absolute neutrophil countOrd ered By: Najma Cates on 05-19-2025 Neutrophils (Bld) [#/Vol] 5.0 10*3/uL 2.0-7.7 [facility] Anion gap in Serum or Plasma Ordered By: Najma Cates on 05-19-2025 Anion gap [Moles/Vol] 12 mmol/L 5-15 [facility] Automated lymphocyte count a s percentage of total leukocytesOrdered By: White on 05-19-2025 Lymphocytes/100 WBC Auto (Unsp spec) 6.6 % Low 19-41 [facility] BUN/creatinine ratioOrdered By: on 05-19-2025 Urea nitrogen/Creatinine [Mass ratio] 22.8 mg/mg High 10-20 [facility] Basophil percentageOrdered B y: on 05-19-2025 Basophils/100 WBC (Bld) 0.5 % 0-1 [facility] Bilirubin, totalOrdered By: on 05-19-2025 Bilirubin [Mass/Vol] 0.53 mg/dL 0.00-1.30 [facility] CBC W/Diff, Automatedon Absolute Lymph 0.42 X10 3/uL Low 0.83-4.51 [facility] Comment on above: Performed By: #### L 500.4050, L100.0100 #### [facility] [address] [place], [address] Absolute Neut 5.0 X10 3/uL Normal 2.0-7.7 [facility] Comment on above: Performed By: #### L 500.4050, L100.0100 #### [facility] [address] [place], [address] Basophils/100 WBC (Bld) 0.5 % Normal 0-1 [facility] Comment on above: Performed By: #### L 500.4050, L100.0100 #### [facility] [address] [place], [address] Eosinophils/100 WBC (Bld) 0.6 % Normal 0-5 [facility] Comment on above: Performed By: #### L 500.4050, L100.0100 #### [facility] [address] [place], [address] Erythrocyte distribution width (RBC) [Ratio] 13.7 % Normal 11.6-14.6 [facility] Comment on above: Performed By: #### L 500.4050, L100.0100 #### [facility] [address] [place], [address] Hematocrit (Bld) [Volume fraction] 32.1 % Low 37-47 [facility] Comment on above: Performed By: #### L 500.4050, L100.0100 #### [facility] [address] [place], [address] Hemoglobin (Bld) [Mass/Vol] 10.3 g/dL Low 12.0-15.0 [facility] Comment on above: Performed By: #### L 500.4050, L100.0100 #### [facility] [address] [place], [address] IG% 0.200 Normal 0.0-0.9 [facility] Comment on above: Result Comment: IG% - Immature Granulocytes (promyelocytes, myelocytes and metamyelocytes) > 1% indicates that a LEFT SHIFT is Present. Performed By: #### L 500.4050, L100.0100 #### [facility] [address] [place], [address] Lymphocytes/100 WBC (Bld) 6.6 % Low 19-41 [facility] Comment on above: Performed By: #### L 500.4050, L100.0100 #### [facility] [address] [place], [address] MCH (RBC) [Entitic mass] 28.0 pg Normal 27.0-32.0 [facility] Comment on above: Performed By: #### L 500.4050, L100.0100 #### [facility] [address] [place], [address] MCHC (RBC) [Mass/Vol] 32.1 g/dL Normal 32-36 [facility] Comment on above: Performed By: #### L 500.4050, L100.0100 #### [facility] [address] [place], [address] MCV (RBC) [Entitic vol] 87.2 fL Normal 81-99 [facility] Comment on above: Performed By: #### L 500.4050, L100.0100 #### [facility] [address] [place], [address] Monocytes/100 WBC (Bld) 12.8 % High 0-10 [facility] Comment on above: Performed By: #### L 500.4050, L100.0100 #### [facility] [address] [place], [address] Neutrophils/100 WBC (Bld) 79.3 % High 47-70 [facility] Comment on above: Performed By: #### L 500.4050, L100.0100 #### [facility] [address] [place], [address] Nucleated RBC (Bld) [#/Vol] 0 10*3/uL Normal 0-5 [facility] Comment on above: Performed By: #### L 500.4050, L100.0100 #### [facility] [address] [place], [address] Platelet mean volume (Bld) [Entitic vol] 11.7 fL Normal 6.2-12.0 [facility] Comment on above: Performed By: #### L 500.4050, L100.0100 #### [facility] [address] [place], [address] Platelets (Bld) [#/Vol] 334 10*3/uL Normal 150-450 [facility] Comment on above: Performed By: #### L 500.4050, L100.0100 #### [facility] [address] [place], [address] RBC (Bld) [#/Vol] 3.68 10*6/uL Low 4.2-5.4 [facility] Comment on above: Performed By: #### L 500.4050, L100.0100 #### [facility] [address] [place], [address] RDW SD 43.3 fl Normal 35.1-43.9 [facility] Comment on above: Performed By: #### L 500.4050, L100.0100 #### [facility] [address] [place], [address] WBC (Bld) [#/Vol] 6.3 10*3/uL Normal 4.4-11.0 [facility] Comment on above: Performed By: #### L 500.4050, L100.0100 #### [facility] [address] [place], [address] Carbon dioxide, total [Moles /volume] in Central venous bloodOrdered By: Najma Cates on 05-19-2025 CO2 [Moles/Vol] 20.0 mmol/L Low 21.0-32.0 [facility] Chloride assayOrdered By: Lucia Cates on 05-19-2025 Chloride [Moles/Vol] 101 mmol/L 98-108 [facility] Comprehensive Metabolic Prof ilon 05-19-2025 Albumin [Mass/Vol] 3.6 g/dL Normal 3.4-4.8 [facility] Comment on above: Performed By: #### L 500.4050, L100.0100 #### [facility] [address] [place], [address] Albumin/Globulin [Mass ratio] 1.2 {ratio} Normal 0.9-2.4 [facility] Comment on above: Performed By: #### L 500.4050, L100.0100 #### [facility] [address] [place], [address] ALK PHOS 74 U/L Normal 35-104 [facility] Comment on above: Performed By: #### L 500.4050, L100.0100 #### [facility] [address] [place], [address] ALT [Catalytic activity/Vol] 10 U/L Normal <=34 [facility] Comment on above: Performed By: #### L 500.4050, L100.0100 #### [facility] [address] [place], [address] AST [Catalytic activity/Vol] 26 U/L Normal <=31 [facility] Comment on above: Performed By: #### L 500.4050, L100.0100 #### [facility] [address] [place], [address] Bilirubin [Mass/Vol] 0.53 mg/dL Normal 0.00-1.30 [facility] Comment on above: Performed By: #### L 500.4050, L100.0100 #### [facility] [address] [place], [address] BUN/CRE 22.8 RATIO High 10-20 [facility] Comment on above: Performed By: #### L 500.4050, L100.0100 #### [facility] [address] [place], [address] Calcium [Mass/Vol] 8.9 mg/dL Normal 7.6-11.0 [facility] Comment on above: Performed By: #### L 500.4050, L100.0100 #### [facility] [address] [place], [address] Chloride [Moles/Vol] 101 mmol/L Normal 98-108 [facility] Comment on above: Performed By: #### L 500.4050, L100.0100 #### [facility] [address] [place], [address] CO2 [Moles/Vol] 20.0 mmol/L Low 21.0-32.0 [facility] Comment on above: Performed By: #### L 500.4050, L100.0100 #### [facility] [address] [place], [address] Creatinine [Mass/Vol] 0.60 mg/dL Low 0.70-1.20 [facility] Comment on above: Performed By: #### L 500.4050, L100.0100 #### [facility] [address] [place], [address] ECRCL 47.10 ml/min Low 50-250 [facility] Comment on above: Performed By: #### L 500.4050, L100.0100 #### [facility] [address] [place], [address] GAP 12 Normal 5-15 [facility] Comment on above: Performed By: #### L 500.4050, L100.0100 #### [facility] [address] [place], [address] GFR/1.73 sq M.predicted among non-blacks MDRD (S/P/Bld) [Vol rate/Area] 88 mL/min/{1.73_m2} Normal >60 [facility] Comment on above: Result Comment: mL/m in/1.73m2 CKD-EPI Creatinine Equation (2020) Performed By: #### L 500.4050, L100.0100 #### [facility] [address] [place], [address] Globulin (S) [Mass/Vol] 3.0 g/dL Normal 2.2-4.2 [facility] Comment on above: Performed By: #### L 500.4050, L100.0100 #### [facility] [address] [place], [address] Glucose [Mass/Vol] 115 mg/dL High 70-99 [facility] Comment on above: Performed By: #### L 500.4050, L100.0100 #### [facility] [address] [place], [address] Potassium [Moles/Vol] 3.8 mmol/L Normal 3.3-5.1 [facility] Comment on above: Performed By: #### L 500.4050, L100.0100 #### [facility] [address] [place], [address] Sodium [Moles/Vol] 133 mmol/L Normal 133-145 [facility] Comment on above: Performed By: #### L 500.4050, L100.0100 #### [facility] [address] [place], [address] T PROT 6.6 g/dL Normal 5.9-8.4 [facility] Comment on above: Performed By: #### L 500.4050, L100.0100 #### [facility] [address] [place], [address] Urea nitrogen [Mass/Vol] 14 mg/dL Normal 4-19 [facility] Comment on above: Performed By: #### L 500.4050, L100.0100 #### [facility] [address] [place], [address] Consultation - Surgicalon Consultation - Surgical [facility] Medical Records Department [address] [place] [address] Consultation - Surgical 05/19/25 0852 MR#: [id number] Acct: [id number] Name: LUZ CLANCY Rep #: [id number] : 1940 85 From: Isaiah Lerner MD PCP: MARILEE Partida Status:ADM [place] Location: [place] [address] Assessment Plan Assessment/Plan (1) Intractable nausea and vomiting: PLAN: The patient was admitted with abdominal pain and nausea and vomiting. She is still having nausea but no vomiting. I reviewed her CT findings with her. CT revealed mildly prominent small bowel loops filled with fluid. Unsure as to the etiology of her issues. I am not sure if she has a bowel obstruction versus gastroenteritis. At this time I recommended observation as the majority of these bowel obstructions resolve spontaneously. If it does not improve over the weekend I will take her for surgery on Thursday. Isaiah Lerner MD Pager: [facility] [address] [place] [address], [address] [place] [address] Office: HPI Consult Data Date of Consult: 05/19/25 HPI Narrative HPI Narrative: LUZ CLANCY, is a 85 F who presents with abdominal pain and vomiting that started yesterday. She reports that she has not had any vomiting since being admitted but she vomited a lot yesterday. She said she is having lower abdominal pain that started yesterday. She is not passing any flatus. She said her last bowel movement was yesterday. She has never had a bowel obstruction in the past. [facility] Medical History CKD (chronic kidney disease), stage II HTN (hypertension) Diverticulosis Cancer Gastric reflux Pulmonary nodule Home Medications ???Medication ???Instructions ???Recorded ???Last Taken ???Type Calcium Carbonate/Vitamin D 1 tab PO DAILY 08/01/13 08/25/17 H istory Multivitamins,Therapeutic 1 tab PO DAILY 08/01/13 08/25/17 H istory lactobacillus combination no.9 4 4,000 mmu cells PO DAILY 03/23/23 Unknown History billion cell capsule (Adult 50 Plus Probiotic) famotidine 20 mg tablet 20 mg PO QDAY 12/01/24 Unknown His tory (Zantac-360 (famotidine)) metoprolol succinate 50 mg 50 mg PO QDAY #90 tabs 01/11/25 Un known Rx tablet,extended release 24 hr (Toprol XL) levothyroxine 75 mcg tablet 50 mcg PO QDAY 04/12/25 Unknown Hi story Allergy/AdvReac Type Severity Reaction Status Date / Time doxycycline AdvReac Severe Nausea Verified 05/18/25 17:46 erythromycin base AdvReac Severe Nausea Verified 05/18/25 17:46 (Erythromycin Base) clindamycin AdvReac Intermediate Thrush Verified 05/18/25 17:46 Penicillins AdvReac Intermediate Hives Verified 05/18/25 17:46 Family History (Updated 05/18/25 @ 23:[address] Najma Cates MD) Mother Colon cancer Breast cancer Daughter Thyroid disorder Father No problems noted. Surgical History History of tubal ligation History of hysterectomy Social History household members: none Smoking Status: Never smoker alcohol intake: never substance use type: does not use Physical Exam Const alert and oriented x3 HEENT normocephalic Eyes PERRL Resp normal respiratory effort Cardio Rate: regular rate Rhythm: regular rhythm GI soft to palpation Inspection: abdominal distention Palpation: tender LLQ and RLQ Extremity normal to inspection Lab / Micro Data 05/19/25 06:39 05/19/25 06:39 Labs: Laboratory Results - last 24 hr 05/18/25 17:55: WBC 14.2 H, RBC 4.35, Hgb 12.2, Hct 37.0, MCV 85.1, MCH 28.0, MCHC 33.0, RDW Std Deviation 41.1, RDW Coeff of Karthikeyan 13.2, Plt Count 364, MPV 11.9, Immature Gran % (Auto) 0.200, Neut % (Auto) 91.6 H, Lymph % (Auto) 3.3 L, Elk % (Auto) 4.6, Eos % (Auto) 0.0, Baso % (Auto) 0.3, A bsolute Neuts (auto) 13.0 H, Absolute Lymphs (auto) 0.47 L, Nucleated RBC % 0, Sodium 132 L, Potassium 4.0, Chloride 94 L, Carbon Dioxide 18.0 L, Anion Gap 20 H, BUN 15, Creatinine 0.78, Estim Creat Clear Calc 47.10 L, Est GFR (MDRD) Non-Af 75, BUN/Creatinine Ratio 19.4, Glucose 152 H, Calcium 10.1, Total Bilirubin 0.54, AST 44 H, ALT 16, Alkaline Phosphatase 93, Total Protein 8.6 H, Albumin 4.5, Globulin 4.1, Albumin/Globulin Ratio 1.1, Lipase 32 05/18/25 18:57: Urine Color Straw, Urine Clarity Sl. Cloudy, Urine pH 7.0, Ur Specific [place] 1.010, Urine Protein 30 H, Urine Glucose (UA) Normal, Urine Ketones 15 H, Urine Occult Blood 25 H, Urine Nitrite Negative, Urine Bilirubin Negative, Urine Urobilinogen Normal, Ur Leukocyte Esterase 100 H, Urine RBC 0-5 SEEN, Urine WBC 0-5 SEEN, Ur Squamous Epith Cells 0-5 SEEN, Urine Bacteria 0 SEEN, Urine Mucus 0 SEE (more content not included)... Normal [facility] Eosinophil percentageOrdered By: Najma Darryn on 05-19-2025 Eosinophils/100 WBC (Bld) 0.6 % 0-5 [facility] Erythrocyte distribution wid th ratioOrdered By: Najma Darryn on 05-19-2025 Erythrocyte distribution width (RBC) [Ratio] 13.7 % 11.6-14.6 [facility] Erythrocyte distribution wid th standard deviationOrdered By: Najma Darryn on 05-19-2025 Erythrocyte distribution width (RBC) [Ratio] 43.3 fl 35.1-43.9 [facility] Glomerular filtration rate ( GFR) estimation/1.73 sq m using serum, plasma, or whole bOrdered By: Najma Darryn on 05-19-2025 GFR/1.73 sq M.predicted among non-blacks MDRD (S/P/Bld) [Vol rate/Area] 88 mL/min/{1.73_m2} >60 [facility] Comment on above: mL/min/1.73m2 CKD-EP I Creatinine Equation (2020) Hematocrit Auto (Bld) [Volum e fraction]Ordered By: Najma Cates on 05-19-2025 Hematocrit (Bld) [Volume fraction] 32.1 % Low 37-47 [facility] Hemoglobin A1con 05-19-2025 HbA1c (Bld) [Mass fraction] 6.1 % High <=5.6 [facility] Comment on above: Result Comment: Norm al < 5.7 % Prediabetic 5.7 - 6.4 % Diabetic >or= 6.5 % Please note range changes. Performed By: #### L 501.9984 #### [facility] [address] [place], [address] Hemoglobin A1c percentageOrd ered By: Najma Cates on 05-19-2025 HbA1c (Bld) [Mass fraction] 6.1 % High <5.7 [facility] Comment on above: Normal < 5.7 % Predi abetic 5.7 - 6.4 % Diabetic >or= 6.5 % Please note range changes. Hemoglobin measurementOrdere d By: Najma Darryn on 05-19-2025 Hemoglobin (Bld) [Mass/Vol] 10.3 g/dL Low 12.0-15.0 [facility] Immature granulocytes/100 WB C Auto (Bld)Ordered By: Darryn on 05-19-2025 Immature granulocytes/100 WBC (Bld) 0.200 % 0.0-0.9 [facility] Comment on above: IG% - Immature Granu locytes (promyelocytes, myelocytes and metamyelocytes) > 1% indicates that a LEFT SHIFT is Present. Laboratory - Chemistry and C hemistry - challengeOrdered By: Najma Darryn on 05-19-2025 AST [Catalytic activity/Vol] 26 U/L <32 [facility] MCV (mean corpuscular volume ) determinationOrdered By: Darryn 05-19-2025 MCV (RBC) [Entitic vol] 87.2 fL 81-99 [facility] Mean corpuscular hemoglobin (MCH) determinationOrdered By: Darryn 05-19-2025 MCH (RBC) [Entitic mass] 28.0 pg 27.0-32.0 [facility] Mean corpuscular hemoglobin concentration (MCHC) determinationOrdered By: Darryn 05-19-2025 MCHC (RBC) [Mass/Vol] 32.1 g/dL 32-36 [facility] Mean platelet volume determi nationOrdered By: Najma Darryn 05-19-2025 Platelet mean volume (Bld) [Entitic vol] 11.7 fL 6.2-12.0 [facility] Monocyte percentageOrdered B y: Darryn on 05-19-2025 Monocytes/100 WBC (Bld) 12.8 % High 0-10 [facility] Neutrophil percentageOrdered By: Darryn on 05-19-2025 Neutrophils/100 WBC (Bld) 79.3 % High 47-70 [facility] Nucleated red blood cell per centageOrdered By: Najma Cates on 05-19-2025 Nucleated RBC/100 WBC (Bld) [Ratio] 0 % 0-5 [facility] Platelet countOrdered By: Lucia dorothy Darryn on 05-19-2025 Platelets (Bld) [#/Vol] 334 10*3/uL 150-450 [facility] Potassium measurement (mass/ volume)Ordered By: Najma Cates on 05-19-2025 Potassium (Unsp spec) [Mass/Vol] 3.8 mmol/L 3.3-5.1 [facility] RBC Auto (Bld) [#/Vol]Ordere d By: Najma Cates on 05-19-2025 RBC (Bld) [#/Vol] 3.68 10*6/uL Low 4.2-5.4 [facility] Serum creatinine measurement (mass/volume)Ordered By: Najma Cates on 05-19-2025 Creatinine [Mass/Vol] 0.60 mg/dL Low 0.70-1.20 [facility] Serum globulin measurementOr dered By: Najma Cates on 05-19-2025 Globulin (S) [Mass/Vol] 3.0 g/dL 2.2-4.2 [facility] Serum glucose measurement (m ass/volume)Ordered By: Najma Cates on 05-19-2025 Glucose [Mass/Vol] 115 mg/dL High 70-99 [facility] Serum or plasma alanine thompson otransferase (ALT) measurementOrdered By: Najma Cates on 05-19-2025 ALT [Catalytic activity/Vol] 10 U/L <35 [facility] Serum or plasma albumin charlene urement (mass/volume)Ordered By: Najma Cates on 05-19-2025 Albumin [Mass/Vol] 3.6 g/dL 3.4-4.8 [facility] Serum or plasma albumin/glob ulin mass ratioOrdered By: Najma Cates on 05-19-2025 Albumin/Globulin [Mass ratio] 1.2 {ratio} 0.9-2.4 [facility] Serum or plasma alkaline dameon sphatase measurementOrdered By: Najma Cates on 05-19-2025 ALP [Catalytic activity/Vol] 74 U/L 35-104 [facility] Serum or plasma calcium charlene urement (mass/volume)Ordered By: Najma Darryn on 05-19-2025 Calcium [Mass/Vol] 8.9 mg/dL 7.6-11.0 [facility] Serum or plasma urea nitroge n measurement (mass/volume)Ordered By: Najma Darryn on 05-19-2025 Urea nitrogen [Mass/Vol] 14 mg/dL 4-19 [facility] Sodium levelOrdered By: Autu mn White on 05-19-2025 Sodium [Moles/Vol] 133 mmol/L 133-145 [facility] Total proteinOrdered By: Aut umn White on 05-19-2025 Protein [Mass/Vol] 6.6 g/dL 5.9-8.4 [facility] White blood cell (WBC) count Ordered By: Najma Darryn on 05-19-2025 WBC (Bld) [#/Vol] 6.3 10*3/uL 4.4-11.0 [facility] 12 Lead EKGon 05-18-2025 12 Lead EKG [facility] [address] [place] [address] 12 Lead EKG 05/18/25 2146 MR#: [id number] Acct: [id number] Name: LUZ CLANCY Rep #: [id number] : 1940 85 From: Ashley Dennison MD Attending Dr: Dr. Joseph Lindsey MD Status : ADM IN Ordering Dr: Jeffery Mcclain DO Date: 5 Location: [facility] Sex: F C Admitted: 05/19/25 Test Reason : DYSRHYTHMIA Blood Pressure : */* mmHG Vent. Rate : 122 BPM Atrial Rate : * BPM P-R Int : * ms QRS Dur : 162 ms QT Int : 444 ms P-R-T Axes : * 19 63 degrees QTcB Int : 632 ms Wide QRS tachycardia Left bundle branch block Abnormal ECG Confirmed by ASHLEY DENNISON ([id number]), assistant production editor PABLO MOSS ([id number]) on 05/22/2025 8:07:05 AM Referred By: Confirmed By: ASHLEY DENNISON 05/22/25 0807 Date Ashley Dennison MD CC: TEST BAKER-C Lela Interiano; Dr. Jeffery Mcclain DO; Dr. Joseph Lindsey MD Signed Normal [facility] Abdomen/Pelvis W IV Cont ONL Yon 05-18-2025 Abdomen/Pelvis W IV Cont ONLY [facility] Services [address] [address] Abdomen/Pelvis W IV Cont ONLY MR#: [id number] Acct: [id number] Name: LUZ CLANCY Rep #: [id number] : 1940 F 85 From: Joseline Kent MD PCP: MARILEE Partida Status: [facility] Study: Abdomen/Pelvis W IV Cont ONLY Date of Exam: Exam# [id number] Ordering Dr: Jeffery Mcclain DO PROCEDURE: ABDOMEN/PELVIS W IV CONT ONLY 05/18/2025 REASON FOR EXAM: LOWER ABDOMINAL PAIN. Nausea/vomiting today. History of hysterectomy, tubal ligation and hypertension. TECHNIQUE: ABDOMEN/PELVIS W IV CONT ONLY Coronal and Sagittal reconstruction series were provided. CONTRAST: Isovue 370 VOLUME: 70 mL One or more dose reduction techniques were used (e.g., Automated exposure control, adjustment of the mA and/or kV according to patient size, use of iterative reconstruction technique. RADIATION DOSE SUMMARY: CTDlvol: 16.62, 11.46 mGy DLP: 526.50 mGycm FINDINGS: LUNG BASES: Multiple similar-appearing pulmonary nodules again seen bilaterally, the largest is 8.6 mm in the lingula. Right lower lobe calcified granuloma. Mild scattered atelectasis/scarring. LIVER: Unremarkable. GALLBLADDER: Small calcified stone. BILE DUCTS: No ductal dilation. PANCREAS: Unremarkable. SPLEEN: Unremarkable. ADRENAL GLANDS: Unremarkable. KIDNEYS: The kidneys enhance symmetrically. Multiple hypodense lesions bilaterally, the largest is 3.0 cm. Hyperdense 0.4 cm exophytic inferolateral left renal lesion, possibly a complex. No hydronephrosis or hydroureter. STOMACH AND BOWEL: Mildly prominent small bowel loops with air-fluid levels and adjacent mesenteric stranding and fluid. No definite small bowel transition point seen. Fluid present in the ascending and transverse colon. No perforation. No wall thickening. Colonic diverticulosis. No CT evidence of colitis or acute diverticulitis. APPENDIX: Normal-appearing appendix. No CT evidence for appendicitis. RETRO/PERITONEUM: Mild mesenteric and pelvic fluid. No free air or focal fluid collections. LYMPH NODES: No lymphadenopathy. PELVIC ORGANS: Unremarkable urinary bladder. Prior hysterectomy. VASCULATURE: No aortic aneurysm. Mild scattered calcified atherosclerosis. ABDOMINAL WALL AND SOFT TISSUES: Small fat-containing infraumbilical hernia.. BONES: No fracture or suspicious osseous abnormality. Degenerative changes of the spine. CT/Abdomen/Pelvis W IV Cont ONLY IMPRESSION: 1. Mildly prominent small bowel loops with air-fluid levels, likely acute enteritis or an ileus. No definite transition point seen, however early/partial SBO is not excluded. 2. Colonic diverticulosis without signs of diverticulitis. 3. Small hyperdense left renal lesion, may represent a complex cyst. 4. Bilateral pulmonary nodules, with no significant change since the prior study Reading Location: [facility] CC: MARILEE Interiano; Dr. Jeffery Mcclain DO Rug Receiving Clerk: Signed Normal [facility] Absolute lymphocyte countOrd ered By: Jeffery Mcclain on 05-18-2025 Lymphocytes Auto (Unsp spec) [#/Vol] 0.47 10*3/uL Low 0.83-4.51 [facility] Absolute neutrophil countOrd ered By: Jeffery Mcclain on 05-18-2025 Neutrophils (Bld) [#/Vol] 13.0 10*3/uL High 2.0-7.7 [facility] Anion gap in Serum or Plasma Ordered By: Jeffery Mcclain on 05-18-2025 Anion gap [Moles/Vol] 20 mmol/L High 5-15 [facility] Automated lymphocyte count a s percentage of total leukocytesOrdered By: Jeffery Mcclain on 05-18-2025 Lymphocytes/100 WBC Auto (Unsp spec) 3.3 % Low 19-41 [facility] BUN/creatinine ratioOrdered By: Jeffery Mcclain on 05-18-2025 Urea nitrogen/Creatinine [Mass ratio] 19.4 mg/mg 10-20 [facility] Basic Metabolic Profile (BMP )on 05-18-2025 BUN/CRE 19.6 RATIO Normal 10-20 [facility] Comment on above: Performed By: #### L 500.4050, L501.9520 #### [facility] [address] [place], [address] Calcium [Mass/Vol] 8.0 mg/dL Normal 7.6-11.0 [facility] Comment on above: Performed By: #### L 500.4050, L501.9520 #### [facility] [address] [place], [address] Chloride [Moles/Vol] 102 mmol/L Normal 98-108 [facility] Comment on above: Performed By: #### L 500.4050, L501.9520 #### [facility] [address] [place], [address] CO2 [Moles/Vol] 15.1 mmol/L Low 21.0-32.0 [facility] Comment on above: Performed By: #### L 500.4050, L501.9520 #### [facility] [address] [place], [address] Creatinine [Mass/Vol] 0.56 mg/dL Low 0.70-1.20 [facility] Comment on above: Performed By: #### L 500.4050, L501.9520 #### [facility] [address] [place], [address] ECRCL 47.10 ml/min Low 50-250 [facility] Comment on above: Performed By: #### L 500.4050, L501.9520 #### [facility] [address] [place], [address] GAP 17 High 5-15 [facility] Comment on above: Performed By: #### L 500.4050, L501.9520 #### [facility] [address] [place], [address] GFR/1.73 sq M.predicted among non-blacks MDRD (S/P/Bld) [Vol rate/Area] 90 mL/min/{1.73_m2} Normal >60 [facility] Comment on above: Result Comment: mL/m in/1.73m2 CKD-EPI Creatinine Equation (2020) Performed By: #### L 500.4050, L501.9520 #### [facility] [address] [place], [address] Glucose [Mass/Vol] 148 mg/dL High 70-99 [facility] Comment on above: Performed By: #### L 500.4050, L501.9520 #### [facility] [address] [place], [address] Potassium [Moles/Vol] 3.5 mmol/L Normal 3.3-5.1 [facility] Comment on above: Performed By: #### L 500.4050, L501.9520 #### [facility] [address] [place], [address] Sodium [Moles/Vol] 134 mmol/L Normal 133-145 [facility] Comment on above: Performed By: #### L 500.4050, L501.9520 #### [facility] [address] [place], [address] Urea nitrogen [Mass/Vol] 11 mg/dL Normal 4-19 [facility] Comment on above: Performed By: #### L 500.4050, L501.9520 #### [facility] [address] [place], [address] Basophil percentageOrdered B y: Jeffery De Los Santost on 05-18-2025 Basophils/100 WBC (Bld) 0.3 % 0-1 [facility] Bilirubin Test strip Ql (U)O rdered By: Jeffery De Los Santost on 05-18-2025 Bilirubin Ql (U) Negative Negative [facility] Bilirubin, totalOrdered By: Jeffery De Los Santost on 05-18-2025 Bilirubin [Mass/Vol] 0.54 mg/dL 0.00-1.30 [facility] CBC W/Diff, Automatedon Absolute Lymph 0.47 X10 3/uL Low 0.83-4.51 [facility] Comment on above: Performed By: #### L 500.4050, L501.9520 #### [facility] [address] [place], [address] Absolute Neut 13.0 X10 3/uL High 2.0-7.7 [facility] Comment on above: Performed By: #### L 500.4050, L501.9520 #### [facility] [address] [place], [address] Basophils/100 WBC (Bld) 0.3 % Normal 0-1 [facility] Comment on above: Performed By: #### L 500.4050, L501.9520 #### [facility] [address] [place], [address] Eosinophils/100 WBC (Bld) 0.0 % Normal 0-5 [facility] Comment on above: Performed By: #### L 500.4050, L501.9520 #### [facility] [address] [place], [address] Erythrocyte distribution width (RBC) [Ratio] 13.2 % Normal 11.6-14.6 [facility] Comment on above: Performed By: #### L 500.4050, L501.9520 #### [facility] [address] [place], [address] Hematocrit (Bld) [Volume fraction] 37.0 % Normal 37-47 [facility] Comment on above: Performed By: #### L 500.4050, L501.9520 #### [facility] [address] [place], [address] Hemoglobin (Bld) [Mass/Vol] 12.2 g/dL Normal 12.0-15.0 [facility] Comment on above: Performed By: #### L 500.4050, L501.9520 #### [facility] [address] [place], [address] IG% 0.200 Normal 0.0-0.9 [facility] Comment on above: Result Comment: IG% - Immature Granulocytes (promyelocytes, myelocytes and metamyelocytes) > 1% indicates that a LEFT SHIFT is Present. Performed By: #### L 500.4050, L501.9520 #### [facility] [address] [place], [address] Lymphocytes/100 WBC (Bld) 3.3 % Low 19-41 [facility] Comment on above: Performed By: #### L 500.4050, L501.9520 #### [facility] [address] [place], [address] MCH (RBC) [Entitic mass] 28.0 pg Normal 27.0-32.0 [facility] Comment on above: Performed By: #### L 500.4050, L501.9520 #### [facility] [address] [place], [address] MCHC (RBC) [Mass/Vol] 33.0 g/dL Normal 32-36 [facility] Comment on above: Performed By: #### L 500.4050, L501.9520 #### [facility] [address] [place], [address] MCV (RBC) [Entitic vol] 85.1 fL Normal 81-99 [facility] Comment on above: Performed By: #### L 500.4050, L501.9520 #### [facility] [address] [place], [address] Monocytes/100 WBC (Bld) 4.6 % Normal 0-10 [facility] Comment on above: Performed By: #### L 500.4050, L501.9520 #### [facility] [address] [place], [address] Neutrophils/100 WBC (Bld) 91.6 % High 47-70 [facility] Comment on above: Performed By: #### L 500.4050, L501.9520 #### [facility] [address] [place], [address] Nucleated RBC (Bld) [#/Vol] 0 10*3/uL Normal 0-5 [facility] Comment on above: Performed By: #### L 500.4050, L501.9520 #### [facility] [address] [place], [address] Platelet mean volume (Bld) [Entitic vol] 11.9 fL Normal 6.2-12.0 [facility] Comment on above: Performed By: #### L 500.4050, L501.9520 #### [facility] [address] [place], [address] Platelets (Bld) [#/Vol] 364 10*3/uL Normal 150-450 [facility] Comment on above: Performed By: #### L 500.4050, L501.9520 #### [facility] [address] [place], [address] RBC (Bld) [#/Vol] 4.35 10*6/uL Normal 4.2-5.4 [facility] Comment on above: Performed By: #### L 500.4050, L501.9520 #### [facility] [address] [place], [address] RDW SD 41.1 fl Normal 35.1-43.9 [facility] Comment on above: Performed By: #### L 500.4050, L501.9520 #### [facility] [address] [place], [address] WBC (Bld) [#/Vol] 14.2 10*3/uL High 4.4-11.0 [facility] Comment on above: Performed By: #### L 500.4050, L5.9520 #### [facility] [address] [place], [address] Carbon dioxide, total [Moles /volume] in Central venous bloodOrdered By: Jeffery Mcclain on 05-18-2025 CO2 [Moles/Vol] 18.0 mmol/L Low 21.0-32.0 [facility] Chloride assayOrdered By: Refugio Mcclain on 05-18-2025 Chloride [Moles/Vol] 94 mmol/L Low 98-108 [facility] Comprehensive Metabolic Prof ilon 05-18-2025 Albumin [Mass/Vol] 4.5 g/dL Normal 3.4-4.8 [facility] Comment on above: Performed By: #### L 500.4050, L5.20 #### [facility] [address] [place], [address] Albumin/Globulin [Mass ratio] 1.1 {ratio} Normal 0.9-2.4 [facility] Comment on above: Performed By: #### L 500.4050, L501.9520 #### [facility] [address] [place], [address] ALK PHOS 93 U/L Normal 35-104 [facility] Comment on above: Performed By: #### L 500.4050, L501.20 #### [facility] [address] [place], [address] ALT [Catalytic activity/Vol] 16 U/L Normal <=34 [facility] Comment on above: Performed By: #### L 500.4050, L501.9520 #### [facility] [address] [place], [address] AST [Catalytic activity/Vol] 44 U/L High <=31 [facility] Comment on above: Result Comment: Hemo lysis present, Results??could be affected. ?? Performed By: #### L 500.4050, L501.9520 #### [facility] [address] [place], [address] Bilirubin [Mass/Vol] 0.54 mg/dL Normal 0.00-1.30 [facility] Comment on above: Performed By: #### L 500.4050, L501.9520 #### [facility] [address] [place], [address] BUN/CRE 19.4 RATIO Normal 10-20 [facility] Comment on above: Performed By: #### L 500.4050, L501.9520 #### [facility] [address] [place], [address] Calcium [Mass/Vol] 10.1 mg/dL Normal 7.6-11.0 [facility] Comment on above: Performed By: #### L 500.4050, L501.9520 #### [facility] [address] [place], [address] Chloride [Moles/Vol] 94 mmol/L Low 98-108 [facility] Comment on above: Performed By: #### L 500.4050, L501.9520 #### [facility] [address] [place], [address] CO2 [Moles/Vol] 18.0 mmol/L Low 21.0-32.0 [facility] Comment on above: Performed By: #### L 500.4050, L501.9520 #### [facility] [address] [place], [address] Creatinine [Mass/Vol] 0.78 mg/dL Normal 0.70-1.20 [facility] Comment on above: Performed By: #### L 500.4050, L501.9520 #### [facility] [address] [place], [address] ECRCL 47.10 ml/min Low 50-250 [facility] Comment on above: Performed By: #### L 500.4050, L501.9520 #### [facility] [address] [place], [address] GAP 20 High 5-15 [facility] Comment on above: Performed By: #### L 500.4050, L501.9520 #### [facility] [address] [place], [address] GFR/1.73 sq M.predicted among non-blacks MDRD (S/P/Bld) [Vol rate/Area] 75 mL/min/{1.73_m2} Normal >60 [facility] Comment on above: Result Comment: mL/m in/1.73m2 CKD-EPI Creatinine Equation (2020) Performed By: #### L 500.4050, L501.9520 #### [facility] [address] [place], [address] Globulin (S) [Mass/Vol] 4.1 g/dL Normal 2.2-4.2 [facility] Comment on above: Performed By: #### L 500.4050, L501.9520 #### [facility] [address] [place], [address] Glucose [Mass/Vol] 152 mg/dL High 70-99 [facility] Comment on above: Performed By: #### L 500.4050, [id number] #### [facility] [address] [place], [address] Potassium [Moles/Vol] 4.0 mmol/L Normal 3.3-5.1 [facility] Comment on above: Result Comment: Hemo lysis present, Results??could be affected. ?? Performed By: #### L 500.4050, L501.9520 #### [facility] [address] [place], [address] Sodium [Moles/Vol] 132 mmol/L Low 133-145 [facility] Comment on above: Performed By: #### L 500.4050, L501.9520 #### [facility] [address] [place], [address] T PROT 8.6 g/dL High 5.9-8.4 [facility] Comment on above: Performed By: #### L 500.4050, L501.9520 #### [facility] [address] [place], [address] Urea nitrogen [Mass/Vol] 15 mg/dL Normal 4-19 [facility] Comment on above: Performed By: #### L 500.4050, L501.9520 #### [facility] [address] [place], [address] Emergency Department Summary on 05-18-2025 Emergency Department Summary [facility] Medical Records Department [address] [place] [address] Emergency Department Summary 05/18/25 MR#: [id number] Acct: [id number] Name: LUZ CLANCY Rep #: [id number] : 1940 85 From: Jeffery Mcclain DO PCP: MARILEE Partida Status:REG ER Location: ED ADDENDUM by Dr. Jeffery Mcclain, DO on 05/18/25 at 2212 Patient has a history of hysterectomy therefore she did not have abdominal surgery which makes early small bowel obstruction a possibility 05/18/252211 Cosigner Signature (if applicable): cc: TEST BAKER-C Lela Interiano * Signed HPI History of Present Illness Chief Complaint: Abd Pain Narrative Narrative: Chief complaint and HPI: Lower abdominal pain. 85-year-old female with past medical history of diverticulosis, GERD, hypothyroidism, HTN presents for evaluation of lower abdominal pain. Patient states yesterday she began feeling nauseous. Today began having lower abdominal pain with vomiting. Nonbloody. She denies any fever, chills, shortness of breath, chest pain, diarrhea, constipation, dysuria. States she feels bloated. Denies any abdominal surgeries. Review of systems: See HPI Medications: As listed on the chart Allergies: As listed on the chart PFSH: Per chart Vital signs: As listed on the chart. Reviewed. Physical exam: Gen: A O x3, NAD Head: Normocephalic, atraumatic Eyes: No sclera icterus, conjunctiva clear ENT: Moist mucous membranes Neck: Trachea midline, No JVD CV: RRR, no murmurs, no peripheral edema Resp: Lungs CTA BL, no w/r/c GI: Abd soft, non-distended, mildly tender to palpation in the bilateral lower quadrant, no r/r/g : No CVA tenderness Musc: Full ROM, no deformity Skin: Warm, dry Neuro: Alert, oriented, grossly intact, sensation intact Psych: Cooperative, appropriate mood and affect [facility] Medical History Tachycardia Diverticulosis Uncontrolled hypertension Cancer Gastric reflux Pulmonary nodule Home Medications ???Medication ???Instructions ???Recorded ???Last Taken ???Type Calcium Carbonate/Vitamin D 1 tab PO DAILY 08/01/13 08/25/17 H istory Multivitamins,Therapeutic 1 tab PO DAILY 08/01/13 08/25/17 H istory lactobacillus combination no.9 4 4,000 mmu cells PO DAILY 03/23/23 Unknown History billion cell capsule (Adult 50 Plus Probiotic) famotidine 20 mg tablet 20 mg PO QDAY 12/01/24 Unknown His tory (Zantac-360 (famotidine)) metoprolol succinate 50 mg 50 mg PO QDAY #90 tabs 01/11/25 Un known Rx tablet,extended release 24 hr (Toprol XL) levothyroxine 75 mcg tablet 50 mcg PO QDAY 04/12/25 Unknown Hi story Allergy/AdvReac Type Severity Reaction Status Date / Time doxycycline AdvReac Severe Nausea Verified 05/18/25 17:46 erythromycin base AdvReac Severe Nausea Verified 05/18/25 17:46 (Erythromycin Base) clindamycin AdvReac Intermediate Thrush Verified 05/18/25 17:46 Penicillins AdvReac Intermediate Hives Verified 05/18/25 17:46 Family History Mother Colon cancer Breast cancer Daughter Thyroid disorder Surgical History History of tubal ligation History of hysterectomy Social History household members: none Smoking Status: Never smoker alcohol intake: never substance use type: does not use EXAM Physical Exam Const Vital Signs: 05/18/25 17:46 05/18/25 18:48 05/18/25 19:20 Temperature 98.4 F 98.1 F Temperature Source Oral Oral Pulse Rate 125 H 122 H 117 H Respiratory Rate 20 H 20 H 19 H Blood Pressure 164/106 H 159/106 H Blood Pressure Mean 125 123 Pulse Ox 100 100 99 Oxygen Delivery Method Room Air Room Air 05/18/25 19:30 05/18/25 19:45 05/18/25 19:55 Temperature 99.1 F Temperature Source Oral Pulse Rate 114 H 118 H 120 H Respiratory Rate 21 H 21 H 20 H Blood Pressure 149/97 H 149/97 H Blood Pressure Mean 114 114 Pulse Ox 99 99 100 Oxygen Delivery Method Room Air 05/18/25 19:55 05/18/25 20:00 05/18/25 20:05 Temperature Temperature Source Pulse Rate 117 H Respiratory Rate 17 Blood Pressure 149/97 H 154/89 H 151/89 H Blood Pressure Mean 115 108 108 Pulse Ox 100 Oxygen Delivery Method 05/18/25 20:10 05/18/25 20:15 05/18/25 20:20 Temperature Temperature Source Pulse Rate 117 H 116 H 118 H Respiratory Rate 18 22 H 19 H Blood Pressure 147/89 H 148/86 H 148/103 H Blood Pressure Mean 107 104 118 Pulse Ox 99 98 100 Oxygen Delivery Method 05/18/25 20:25 05/18/25 20:30 05/18/25 20:35 Temperature Tempera (more content not included)... Normal [facility] Eosinophil percentageOrdered By: Jeffery Mcclain on 05-18-2025 Eosinophils/100 WBC (Bld) 0.0 % 0-5 [facility] Erythrocyte distribution wid th ratioOrdered By: [facility]is[facility] on 05-18-2025 Erythrocyte distribution width (RBC) [Ratio] 13.2 % 11.6-14.6 [facility] Erythrocyte distribution wid th standard deviationOrdered By: [facility] Sol[facility] on 05-18-2025 Erythrocyte distribution width (RBC) [Ratio] 41.1 fl 35.1-43.9 [facility] Glomerular filtration rate ( GFR) estimation/1.73 sq m using serum, plasma, or whole bOrdered By: [facility] SystemAdelfo on 05-18-2025 GFR/1.73 sq M.predicted among non-blacks MDRD (S/P/Bld) [Vol rate/Area] 75 mL/min/{1.73_m2} >60 [facility] Comment on above: mL/min/1.73m2 CKD-EP I Creatinine Equation (2020) H AND P Exam - Hospitaliston 05-18-2025 H&P Exam - Hospitalist [facility] Medical Records Department [address] [place] [address] H P Exam - Hospitalist 05/18/25 2152 MR#: [id number] Acct: [id number] Name: LUZ CLANCY Rep #: [id number] : 1940 85 From: Najma Cates MD PCP: MARILEE Partida Status:ADM FRANKLIN Location: [place] [address] HPI - General General Date of Admission: 05/18/25 Date of Service: 05/18/25 Chief Complaint: Abdominal pain, bloating, N/V. HPI Narrative The patient is an 85 y/o F w/ PMHx: CKD stage II per GFR trending, HTN, GERD, Hx Uterine CA/endometrial s/p PRADEEP as well as chemotherapy/radiation 2012, Hypothyroidism who presents to the [facility] ED on 05/18/25 with history of onset on day of presentation abdominal distention, increased burping, lack of flatus, episodes of nausea and emesis although she does report a bowel movement of normal texture and size at approximately 6:30 AM and also 1 in the early afternoon which is a familiar bowel pattern for her although she does note that last flatus was the day prior and given ongoing discomfort noted to be waxing and waning occasionally and with a cramping sensation rated 6- 7 out of 10 in severity at its worst, currently resolved upon ED evaluation but given ongoing prompted ED evaluation to be cautious. She does note that in March she had a similar episode but no emesis at that time and it did resolve over 48 hours. Prior to this she had never had anything like this before. Workup in the ED included T98.4, heart rate 125, BP 164/106, respiratory rate 20, 100% on room air with most recent repeat vitals heart rate 122, BP 151/99, respiratory rate 14, 98% room air, CBC with 14.2, hemoglobin 12.2, platelet 364 with left shift and lymphopenia, CMP with sodium 132, chloride 94, carbon dioxide 18, AG 20, BUN/creat 15/0.78, GFR 75, glucose 152, lactic acid 1.9, hepatic profile not marked appearing aside AST 42, lipase 32, urinalysis not marked appearing, CT abdomen and pelvis with mildly prominent small bowel loops with air-fluid levels possibly acute enteritis versus ileus with no definitive transition point however unable to exclude early/partial SBO, colonic diverticulosis without diverticulitis, small hyperdense left renal lesion possibly complex cyst, bilateral pulmonary nodules with no significant change in his prior study. In the ED patient administered 2 L normal saline, Reglan 5 mg IV x 1, morphine 2 mg IV x 1, Zofran 4 mg IV x 1. ED discussed case with Dr. Lerner. [facility] Medical History CKD (chronic kidney disease), stage II HTN (hypertension) Diverticulosis Cancer Gastric reflux Pulmonary nodule Home Medications ???Medication ???Instructions ???Recorded ???Last Taken ???Type Calcium Carbonate/Vitamin D 1 tab PO DAILY 08/01/13 08/25/17 H istory Multivitamins,Therapeutic 1 tab PO DAILY 08/01/13 08/25/17 H istory lactobacillus combination no.9 4 4,000 mmu cells PO DAILY 03/23/23 Unknown History billion cell capsule (Adult 50 Plus Probiotic) famotidine 20 mg tablet 20 mg PO QDAY 12/01/24 Unknown His tory (Zantac-360 (famotidine)) metoprolol succinate 50 mg 50 mg PO QDAY #90 tabs 01/11/25 Un known Rx tablet,extended release 24 hr (Toprol XL) levothyroxine 75 mcg tablet 50 mcg PO QDAY 04/12/25 Unknown Hi story Allergy/AdvReac Type Severity Reaction Status Date / Time doxycycline AdvReac Severe Nausea Verified 05/18/25 17:46 erythromycin base AdvReac Severe Nausea Verified 05/18/25 17:46 (Erythromycin Base) clindamycin AdvReac Intermediate Thrush Verified 05/18/25 17:46 Penicillins AdvReac Intermediate Hives Verified 05/18/25 17:46 Family History Mother Colon cancer Breast cancer Daughter Thyroid disorder Father No problems noted. Surgical History History of tubal ligation History of hysterectomy Social History household members: none Smoking Status: Never smoker alcohol intake: never substance use type: does not use ROS ROS Narrative Admission Review of Systems: CONSTITUTIONAL: No weight loss, fever, chills, + weakness or fatigue. HEENT: Eyes: No visual loss, blurred vision, double vision or yellow sclerae. Ears, Nose, Throat: No hearing loss, sneezing, congestion, runny nose or sore throat. SKIN: No rash or itching, lesions, wounds. CARDIOVASCULAR: No chest pain, chest pressure or chest discomfort, palpitations, edema, orthopnea, syncopal events. RESPIRATORY: No shortness of breath, cough or sputum, wheezing, hemoptysis. GASTROINTESTINAL: + anorexia, nausea, vomiting, increased burping, lack of flatus, abdominal pain and distention. No diarrhea, constipation, melena, BRBPR. G (more content not included)... Normal [facility] Hematocrit Auto (Bld) [Volum e fraction]Ordered By: Jeffery Mcclain on 05-18-2025 Hematocrit (Bld) [Volume fraction] 37.0 % 37-47 [facility] Hemoglobin measurementOrdere d By: Jeffery Mcclain on 05-18-2025 Hemoglobin (Bld) [Mass/Vol] 12.2 g/dL 12.0-15.0 [facility] Immature granulocytes/100 WB C Auto (Bld)Ordered By: Jeffery Mcclain on 05-18-2025 Immature granulocytes/100 WBC (Bld) 0.200 % 0.0-0.9 [facility] Comment on above: IG% - Immature Granu locytes (promyelocytes, myelocytes and metamyelocytes) > 1% indicates that a LEFT SHIFT is Present. Ketones Test strip Ql (U)Ord ered By: Jeffery Mcclain on 05-18-2025 Ketones Ql (U) 15 mg/dl High Negative [facility] - Chemistry and C hemistry - challengeOrdered By: Jeffery Mcclain on 05-18-2025 AST [Catalytic activity/Vol] 44 U/L High <32 [facility] Comment on above: Hemolysis present, R esults could be affected. Lactic Acidon 05-18-2025 Lactate [Moles/Vol] 1.9 mmol/L Normal 0.0-2.0 [facility] Comment on above: Order Comment: Order Date: 05/29/25 Order Info: 0786-1 - CMP Order Info: 3016-3 - TSH Performed By: #### L 500.4050, L501.9520 #### [facility] [address] [place], [place], [address] Lactic acid measurementOrder ed By: Jeffery Mcclain on 05-18-2025 Lactate [Moles/Vol] 1.9 mmol/L 0.0-2.0 [facility] Lipaseon 05-18-2025 Lipase [Catalytic activity/Vol] 32 U/L Normal 13-75 [facility] Comment on above: Result Comment: Emilia nichols note: LIPASE revised reference range effective 23. New Lipase methodology. Expected to produce lower values than the previous assay method. NEW Reference Range: 13 - 75 U/L Performed By: #### L 500.4050, L501.9520 #### [facility] [address] [place], [address] Lipase measurementOrdered By : Jeffery Mcclain on 05-18-2025 Lipase [Catalytic activity/Vol] 32 U/L 13-75 [facility] Comment on above: Please note:LIPASE r evised reference range effective 23. New Lipase methodology. Expected to produce lower values than the previous assay method. NEW Reference Range: 13 - 75 U/L MCV (mean corpuscular volume ) determinationOrdered By: Jeffery Mcclain on 05-18-2025 MCV (RBC) [Entitic vol] 85.1 fL 81-99 [facility] Mean corpuscular hemoglobin (MCH) determinationOrdered By: Jeffery Mcclain on 05-18-2025 MCH (RBC) [Entitic mass] 28.0 pg 27.0-32.0 [facility] Mean corpuscular hemoglobin concentration (MCHC) determinationOrdered By: Jeffery Mcclain on 05-18-2025 MCHC (RBC) [Mass/Vol] 33.0 g/dL 32-36 [facility] Mean platelet volume determi nationOrdered By: Jeffery Mcclain on 05-18-2025 Platelet mean volume (Bld) [Entitic vol] 11.9 fL 6.2-12.0 [facility] Microscopic analysis of urin e for red blood cells (RBC)Ordered By: Jeffery Mcclain on 05-18-2025 Microscopic analysis of urine for red blood cells (RBC) 0-5 SEEN /hpf 0-5 [facility] Monocyte percentageOrdered B y: Jeffery Mcclain on 05-18-2025 Monocytes/100 WBC (Bld) 4.6 % 0-10 [facility] Mucus LM Ql (Urine sed)Order ed By: Jeffery Mcclain on 05-18-2025 Mucus Ql (Urine sed) 0 SEEN /hpf [facility] Neutrophil percentageOrdered By: Jeffery Mcclain on 05-18-2025 Neutrophils/100 WBC (Bld) 91.6 % High 47-70 [facility] Nitrite Test strip Ql (U)Ord ered By: Jeffery Mcclain on 05-18-2025 Nitrite Ql (U) Negative Negative [facility] Nucleated red blood cell per centageOrdered By: Jeffery Mcclain on 05-18-2025 Nucleated RBC/100 WBC (Bld) [Ratio] 0 % 0-5 [facility] Platelet countOrdered By: Refugio Mcclain on 05-18-2025 Platelets (Bld) [#/Vol] 364 10*3/uL 150-450 [facility] Potassium measurement (mass/ volume)Ordered By: Jeffery Mcclain on 05-18-2025 Potassium (Unsp spec) [Mass/Vol] 4.0 mmol/L 3.3-5.1 [facility] Comment on above: Hemolysis present, R esults could be affected. Protein Test strip Ql (U)Ord ered By: Jeffery Mcclain on 05-18-2025 Protein Ql (U) 30 mg/dl High Negative [facility] RBC Auto (Bld) [#/Vol]Ordere d By: Jeffery Mcclain on 05-18-2025 RBC (Bld) [#/Vol] 4.35 10*6/uL 4.2-5.4 [facility] Serum creatinine measurement (mass/volume)Ordered By: Jeffery Mcclain on 05-18-2025 Creatinine [Mass/Vol] 0.78 mg/dL 0.70-1.20 [facility] Serum globulin measurementOr dered By: Jeffery Mcclain on 05-18-2025 Globulin (S) [Mass/Vol] 4.1 g/dL 2.2-4.2 [facility] Serum glucose measurement (m ass/volume)Ordered By: Jeffery Mcclain on 05-18-2025 Glucose [Mass/Vol] 152 mg/dL High 70-99 [facility] Serum or plasma alanine thompson otransferase (ALT) measurementOrdered By: Jeffery Mcclain on 05-18-2025 ALT [Catalytic activity/Vol] 16 U/L <35 [facility] Serum or plasma albumin charlene urement (mass/volume)Ordered By: Jeffery Solis on 05-18-2025 Albumin [Mass/Vol] 4.5 g/dL 3.4-4.8 [facility] Serum or plasma albumin/glob ulin mass ratioOrdered By: Jeffery Mcclain on 05-18-2025 Albumin/Globulin [Mass ratio] 1.1 {ratio} 0.9-2.4 [facility] Serum or plasma alkaline dameon sphatase measurementOrdered By: Jeffery Mcclain on 05-18-2025 ALP [Catalytic activity/Vol] 93 U/L 35-104 [facility] Serum or plasma calcium charlene urement (mass/volume)Ordered By: Jeffery Solis on 05-18-2025 Calcium [Mass/Vol] 10.1 mg/dL 7.6-11.0 [facility] Serum or plasma urea nitroge n measurement (mass/volume)Ordered By: Jeffery Mcclain on 05-18-2025 Urea nitrogen [Mass/Vol] 15 mg/dL 4-19 [facility] Sodium levelOrdered By: Jesus Mcclain on 05-18-2025 Sodium [Moles/Vol] 132 mmol/L Low 133-145 [facility] Squamous epithelial cells de tection in urine sediment by light microscopyOrdered By: Jeffery Mcclain on 05-18-2025 Epithelial cells.squamous LM Ql (Urine sed) 0-5 SEEN /hpf 5-10 [facility] Total proteinOrdered By: Mikel Mcclain on 05-18-2025 Protein [Mass/Vol] 8.6 g/dL High 5.9-8.4 [facility] Urinalysis, Completeon 05-18 EPI,SQUAMOUS 0-5 SEEN Normal 5-10 [facility] Comment on above: Order Comment: Order Date: 05/29/25 Order Info: 0786-1 - CMP Order Info: 3015-3 - TSH Performed By: #### L 500.4050, L501.9520 #### [facility] [address] [place], [address] RBC 0-5 SEEN Normal 0-5 [facility] Comment on above: Order Comment: Order Date: 05/29/25 Order Info: 07-1 - CMP Order Info: 3015-3 - TSH Performed By: #### L 500.4050, L501.9520 #### [facility] [address] [place], [address] WBC 0-5 SEEN Normal 0-5 [facility] Comment on above: Order Comment: Order Date: 05/29/25 Order Info: 0786-1 - CMP Order Info: 3015-3 - TSH Performed By: #### L 500.4050, L501.9520 #### [facility] [address] [place], [address] BACTERIA 0 SEEN Normal None Seen [facility] Comment on above: Order Comment: Order Date: 05/29/25 Order Info: 0786-1 - CMP Order Info: 301-3 - TSH Performed By: #### L 500.4050, L501.9520 #### [facility] [address] [place], [address] Mucus Ql (Urine sed) 0 SEEN Normal [facility] Comment on above: Order Comment: Order Date: 05/29/25 Order Info: [id number] - CMP Order Info: 3016-3 - TSH Performed By: #### L 500.4050, L501.9520 #### [facility] [address] [place], [address] Urine clarityOrdered By: Mikel Mcclain on 05-18-2025 Clarity (U) Sl. Cloudy Clear [facility] Urine color determinationOrd ered By: Jeffery Mcclain on 05-18-2025 Color (U) Straw Yellow [facility] Urine glucose detectionOrder ed By: Jeffery Mcclain on 05-18-2025 Glucose Ql (U) Normal mg/dl Normal [facility] Urine leukocyte esterase det ection by dipstickOrdered By: Jeffery Mcclain on 05-18-2025 Leukocyte esterase Test strip Ql (U) 100 /ul High Negative [facility] Urine pHOrdered By: Jeffery Emanuel on 05-18-2025 pH (U) 7.0 [pH] 5.0 - 8.0 [facility] Urine sediment bacteria coun t by microscopy (number/high power field)Ordered By: Jeffery Mcclain on 05-18-2025 Bacteria LM.HPF (Urine sed) [#/Area] 0 /[HPF] None Seen [facility] Urine specific gravity measu rementOrdered By: Jeffery Mcclain on 05-18-2025 Specific gravity (U) [Rel density] 1.010 1.002-1.030 [facility] Urine urobilinogen measureme ntOrdered By: Jeffery Mcclain on 05-18-2025 Urobilinogen Ql (U) Normal mg/dl Normal [facility] White blood cell (WBC) count Ordered By: Jeffery Mcclain on 05-18-2025 WBC (Bld) [#/Vol] 14.2 10*3/uL High 4.4-11.0 [facility] White blood cell countOrdere d By: Jeffery Mcclain on 05-18-2025 White blood cell count 0-5 SEEN /hpf 0-5 [facility] SURG PATH REQUESTon 05-17-20 Case Report Normal [facility] Comment on above: Result Comment: Surg ical Pathology Report Case: [id number] Authorizing Provider: Carlos Bernal MD Collected: 05/17/2025 03:17 PM Ordering Location[facility] Received: 05/17/2025 03:13 PM [place] Pathologist: YOLANDA Hidalgo, PhD Specimen: SURG PATH, Outside Block [id number] (A2); Lung, left, CT-guided core biopsy; Molecular testing Performed By: #### S URGP #### [facility] (DEFAULT) [address] [place] [address] Clinical History Normal [facility] Comment on above: Result Comment: Rece ived is a request from Carlos Bernal MD at [facility], [address] [place] [address] for molecular testing on a paraffin block received from [facility]. Performed By: #### S URGP #### [facility] (DEFAULT) [address] [place] [address] Gross Description Normal [facility] Comment on above: Result Comment: The following material(s) are received from [facility], [address] [place] [address] with an identifying Surgical Pathology Report: 1 paraffin block marked [id number] (A2), which is submitted to the [facility] histology/IHC laboratory for recutting and additional staining for molecular testing: Solid Tumor Mutation Panel, NTRK Fusion Panel, PULMOL (Molecular/FISH), HER2, ER/IHC, MMR/IHC and PD-L1. Testing for PULMOL (molecular/FISH) is not indicated. Immunohistochemistry staining for ER is previously reported and not performed. See previous report for ER/IHC results. Materials will be returned upon completion. Grosser for this case was: Sherley Quinones Performed By: #### S URGP #### [facility] (DEFAULT) [address] [place] [address] Microscopic Description Normal [facility] Comment on above: Result Comment: Tiss ue was assessed by a molecular pathologist to select areas for analysis and to correlate immunostaining with histology. No morphologic assessment was requested. Comments to Treating Physician: KEYTRUDA? (pembrolizumab) is indicated for the treatment of patients with locally advanced or metastatic urothelial carcinoma who are not eligible for cisplatin-containing chemotherapy and whose tumors express PD-L1 (CPS >= 10) as determined by an FDA-approved test, or in patients who are not eligible for any [place]-containing chemotherapy regardless of PD-L1 status. See KEYTRUDA prescribing information for details. *PD-L1 IHC 22C3 pharmDx is a FDA-approved certified corporate travel executive diagnostic for pembrolizumab performed on Dako Autostainer Link 48. PD-L1 expression in urothelial carcinoma and the upper urinary tract is determined by manual quantification using Combined Positive Score (CPS), which is the number of PD-L1 staining cells (tumor cells, lymphocytes, macrophages) divided by the total viable tumor cells, multiplied by 100. Positivity is scored in viable tumor cells (partial or complete linear membrane staining at any intensity) and tumor-associated lymphocytes and macrophages (membrane and/or cytoplasmic staining at any intensity). Certain tissue processing factors such as decalcification, formalin fixation time outside an acceptable range (4 to 168 hrs), and prolonged time to fixation can affect PD-L1 staining/expression levels and results should be interpreted with caution in such instances. Additionally, tissue from older (greater than 5 yrs) formalin-fixed paraffin-embedded blocks may lose PD-L1 immunoreactivity. This assay is not validated for decalcified specimens. NOTE: If PD-L1 expression is not detected in an archival (> 42 days old) specimen, evaluate the feasibility of obtaining an additional tumor biopsy for PD-L1 testing. HER2 protein expression in NSCLC is evaluated by manual quantitative immunohistochemistry on formalin-fixed, paraffin-embedded tissues, using clone [id number] (rabbit monoclonal, Terlton) on a Terlton auto-stainer. Membrane staining of tumor cells is evaluated and graded as follows: Negative: no staining (0); faint (1+) segmental or granular staining with any cellularity; moderate (2+) staining with any pattern in <50% tumor cells; intense (3+) circumferential, basolateral, or lateral staining in <= 10% tumor cells; Equivocal: moderate (2+) circumferential, basolateral or lateral staining in >=50% tumor cells; Positive: intense (3+) circumferential, basolateral, or lateral staining in >=50% tumor cells; or intense (3+) circumferential, basolateral, or lateral staining in >10% but <50% of tumor cells. HER2 immunohistochemical expression (3+) using this assay may be an indication for use of trastuzumab deruxtecan-nxki in NSCLC and other solid tumors (Oncologist 2023May 16;29(8):667-671). Correlation with HER2 mutation status is recommended. There are exceptions to the above IHC interpretations. These results should not be considered in isolation, and clinical correlation with genetic counseling is recommended to assess the need for germline testing.All controls show appropriate reactivity. The mismatch repair proteins are evaluated by immunohistochemistry on formalin-fixed, paraffin-embedded tissue, using clone [id number] for MLH1, clone EP51 for PMS2, clone RED2 for MSH2, and clone EP49 for MSH6, and Tissue Hood Genie? Pro Detection Kit, DAB on the [employer] Tissue Hood Genie Advanced Staining System. Convincing nuclear staining in > 1% of tumor cells that is as strong as internal control is considered present/intact. Complete absence of nuclear staining in tumor cells in the presence of nuclear expression in internal control cells is considered absent/lost. Rarely a discrete area of a tumor can show loss of staining with retained nuclear expression in the adjacent tumor cells and internal control cells, which is regarded as subclonal loss and can also be of clinical significance. All controls show appropriate reactivity. All immunohistochemistry (IHC), in situ hybridization (BETI), and histochemical tests were developed by and are performed at the [facility], Histology and IHC Lab, [address] [place] [address]. All Immunofluorescent (IF) tests were developed by and are performed at the [facility], Renal Division, [address] [place] [address]. All tests reported here, except for PD-L1, have not been cleared by or approved by the [place] Food and Drug Administration (FDA). The laboratory is regulated under CLIA as qualified to perform high-complexity testing. The tests are used for clinical purposes. They should not be regarded as investigational or for research. Performed By: #### S URGP #### [facility] (DEFAULT) [address] [place] [address] Pathologic Diagnosis Normal [facility] Comment on above: Result Comment: Outs otilio Slides: [id number] (05/10/25) Lung, left, CT-guided lung biopsy: PD-L1 IHC 22C3 pharmDx* expression level: Positive for PD-L1 expression (CPS >= 1) Combined Positive Score (CPS): 8 HER2 IHC result: Negative (Score 1+) Mismatch Repair Protein (MMR) Nuclear Expression by IHC: MLH1: present/intact PMS2: present/intact MSH2: present/intact MSH6: present/intact Solid Tumor Mutation Panel and NTRK Fusion Panel: See separate molecular reports for results in this case at 1923 EDT Performed By: #### S URGP #### [facility] (DEFAULT) [address] [address] Professional Interpretation Performed at: [facility] Comment on above: Result Comment: [facility] For Immediate Release to [facility]'s [facility] [place] Yes [address] [address] Performed By: #### S URGP #### [facility] (DEFAULT) [address] [address] Cardiology Visit Reporton Cardiology Visit Report [facility] 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 Normal [facility] Surgical pathology reportOrd ered By: Erum oBnilla on 05-15-2025 Surgical pathology study [facility] Absolute lymphocyte countOrd ered By: Brian Gonzales on 05-10-2025 Lymphocytes Auto (Unsp spec) [#/Vol] 0.79 10*3/uL Low 0.83-4.51 [facility] Absolute neutrophil countOrd ered By: Brian Gonzales on 05-10-2025 Neutrophils (Bld) [#/Vol] 4.5 10*3/uL 2.0-7.7 [facility] Activated partial thrombopla stin time (aPTT) in platelet poor plasma by coagulation aOrdered By: Brian Gonzales on 05-10-2025 aPTT Coag (PPP) [Time] 25.6 s 24.1-36.2 [facility] Automated lymphocyte count a s percentage of total leukocytesOrdered By: Brian Gonzales on 05-10-2025 Lymphocytes/100 WBC Auto (Unsp spec) 12.9 % Low 19-41 [facility] Basophil percentageOrdered B y: Brian Gonzales on 05-10-2025 Basophils/100 WBC (Bld) 1.0 % 0-1 [facility] Biopsy/Inj or Needle Placeme nton 05-10-2025 Biopsy/Inj or Needle Placement [facility] [address] [place], [place] [address] Biopsy/Inj or Needle Placement MR#: [id number] Acct: [id number] Name: LUZ CLANCY Rep #: [id number] : 1940 F 85 From: Brian Zambrano PCP: MARILEE Partida Status: REG CLI Study: Biopsy/Inj or Needle Placement Date of Exam: 0 05/10/25 Exam# [id number] Ordering Dr: Carlos Bernal MD EXAM: CT-guided [...] pulmonary mass. Pathology results pending. Reading Location: [place] [address] CC: MARILEE Interiano; Dr. Carlos Bernal MD Rug Receiving Clerk: Signed Normal [facility] CBC W/Diff, Automatedon 04-13-2024 Absolute Lymph 0.79 X10 3/uL Low 0.83-4.51 [facility] Comment on above: Performed By: #### L 500.4050, L501.9520 #### [facility] [address] [place], [address] Absolute Neut 4.5 X10 3/uL Normal 2.0-7.7 [facility] Comment on above: Performed By: #### L 500.4050, L501.9520 #### [facility] [address] [place], [address] Basophils/100 WBC (Bld) 1.0 % Normal 0-1 [facility] Comment on above: Performed By: #### L 500.4050, L501.9520 #### [facility] [address] [place], [address] Eosinophils/100 WBC (Bld) 1.5 % Normal 0-5 [facility] Comment on above: Performed By: #### L 500.4050, L501.9520 #### [facility] [address] [place], [address] Erythrocyte distribution width (RBC) [Ratio] 13.2 % Normal 11.6-14.6 [facility] Comment on above: Performed By: #### L 500.4050, L501.9520 #### [facility] [address] [place], [address] Hematocrit (Bld) [Volume fraction] 34.7 % Low 37-47 [facility] Comment on above: Performed By: #### L 500.4050, L501.9520 #### [facility] [address] [place], [address] Hemoglobin (Bld) [Mass/Vol] 11.0 g/dL Low 12.0-15.0 [facility] Comment on above: Performed By: #### L 500.4050, L501.9520 #### [facility] [address] [place], [address] IG% 0.500 Normal 0.0-0.9 [facility] Comment on above: Result Comment: IG% - Immature Granulocytes (promyelocytes, myelocytes and metamyelocytes) > 1% indicates that a LEFT SHIFT is Present. Performed By: #### L 500.4050, L501.9520 #### [facility] [address] [place], [address] Lymphocytes/100 WBC (Bld) 12.9 % Low 19-41 [facility] Comment on above: Performed By: #### L 500.4050, L501.9520 #### [facility] [address] [place], [address] MCH (RBC) [Entitic mass] 27.8 pg Normal 27.0-32.0 [facility] Comment on above: Performed By: #### L 500.4050, L501.9520 #### [facility] [address] [place], [address] MCHC (RBC) [Mass/Vol] 31.7 g/dL Low 32-36 [facility] Comment on above: Performed By: #### L 500.4050, L501.9520 #### [facility] [address] [place], [address] MCV (RBC) [Entitic vol] 87.8 fL Normal 81-99 [facility] Comment on above: Performed By: #### L 500.4050, L501.9520 #### [facility] [address] [place], [address] Monocytes/100 WBC (Bld) 11.6 % High 0-10 [facility] Comment on above: Performed By: #### L 500.4050, L5.20 #### [facility] [address] [place], [address] Neutrophils/100 WBC (Bld) 72.5 % High 47-70 [facility] Comment on above: Performed By: #### L 500.4050, L5.20 #### [facility] [address] [place], [address] Nucleated RBC (Bld) [#/Vol] 0 10*3/uL Normal 0-5 [facility] Comment on above: Performed By: #### L 500.4050, L5.9519 #### [facility] [address] [place], [address] Platelet mean volume (Bld) [Entitic vol] 10.7 fL Normal 6.2-12.0 [facility] Comment on above: Performed By: #### L 500.4050, L5.9519 #### [facility] [address] [place], [address] Platelets (Bld) [#/Vol] 347 10*3/uL Normal 150-450 [facility] Comment on above: Performed By: #### L 500.4050, L5.20 #### [facility] [address] [place], [address] RBC (Bld) [#/Vol] 3.95 10*6/uL Low 4.2-5.4 [facility] Comment on above: Performed By: #### L 500.4050, L5.20 #### [facility] [address] [place], [address] RDW SD 42.8 fl Normal 35.1-43.9 [facility] Comment on above: Performed By: #### L 500.4050, L5.20 #### [facility] [address] [place], [address] WBC (Bld) [#/Vol] 6.1 10*3/uL Normal 4.4-11.0 [facility] Comment on above: Performed By: #### L 500.4050, L501.9520 #### [facility] [address] [place], [address] Chest Insp/Exp 2 Viewon 04-13 Chest Insp/Exp 2 View [facility] [address] [place] [address] Chest Insp/Exp 2 View MR#: [id number] Acct: [id number] Name: LUZ CLANCY Rep #: [id number] : 1940 F 85 From: Brian Zambrano PCP: MARILEE Partida Status: REG CLI Study: Chest Insp/Exp 2 View Date of Exam: 05/10/25 Exam# [id number] Ordering Dr: Brian Gonzales MD EXAM: Two-view [...] stable, without evidence of cardiomegaly. Reading Location: [place] [address] CC: SOURAV-Lilian Interiano; Dr. Brian Gonzales MD Rug Receiving Clerk: Signed Normal [facility] Chest Insp/Exp 2 View [facility] [address] [place], [place] [address] Chest Insp/Exp 2 View MR#: [id number] Acct: [id number] Name: LUZ CLANCY Taiwo Rep #: [id number] : 1940 F 85 From: Brian Zambrano PCP: MARILEE Partida Status: REG CLI Study: Chest Insp/Exp 2 View Date of Exam: 05/10/25 Exam# [id number] Ordering Dr: Brian Gonzales MD EXAM: AP [...] unremarkable; no evidence of cardiomegaly. Reading Location: [place] [address] CC: TEST BAKER-C Lela Interiano; Dr. Brian Gonzales MD Rug Receiving Clerk: Signed Normal [facility] Eosinophil percentageOrdered By: Brian Gonzales on 05-10-2025 Eosinophils/100 WBC (Bld) 1.5 % 0-5 [facility] Erythrocyte distribution wid th ratioOrdered By: Brian Gonzales on 05-10-2025 Erythrocyte distribution width (RBC) [Ratio] 13.2 % 11.6-14.6 [facility] Erythrocyte distribution wid th standard deviationOrdered By: Brian Gonzales on 05-10-2025 Erythrocyte distribution width (RBC) [Ratio] 42.8 fl 35.1-43.9 [facility] Hematocrit Auto (Bld) [Volum e fraction]Ordered By: Brian Gonzales on 05-10-2025 Hematocrit (Bld) [Volume fraction] 34.7 % Low 37-47 [facility] Hemoglobin measurementOrdere d By: Brian Gonzales on 05-10-2025 Hemoglobin (Bld) [Mass/Vol] 11.0 g/dL Low 12.0-15.0 [facility] Immature granulocytes/100 WB C Auto (Bld)Ordered By: Brian Gonzales on 05-10-2025 Immature granulocytes/100 WBC (Bld) 0.500 % 0.0-0.9 [facility] Comment on above: IG% - Immature Granu locytes (promyelocytes, myelocytes and metamyelocytes) > 1% indicates that a LEFT SHIFT is Present. Immunohistochemical Stainson 05-10-2025 Immunohistochemical Stains Patient Age/Sex Location Account Attending Physician LUZ CLANCY 85/F CT [id number] Dr. Carlos Bernal MD Specimen: [id number] Received: 05/10/25 Status: RONIT Fung Num: [id number] Spec Type: LUNG BX Subm Dr: Dr. [...] developed and their performance characteristics determined by [facility]. They may not have been cleared [...] Entirely submitted in 2 cassettes. NV 05/10/2025 CPT:07351,452075,94353,883 41x13 Patient Age/Sex Location Account Attending Physician CLANCYLUZ Taiwo 85/F CT [id number] Dr. Carlos Bernal MD ADDENDUM Addendum 1 Entered: 06/01/25-7989 This addendum is added to incorporate an outside pathology consultation report. The case was examined at [facility] by Dr. Whitley (#[id number]) and the following diagnosis was rendered. A. Lung, left, CT-guided lung biopsy: PDS-L1 IHC 22C3 pharmDx expression level : Positive for PD-L1 expression (CPS>1) Combined Positive Score: 8 HER2 IHC Result: Negative (Score 1+) Mismatch Repair Protein (MMR) Nuclear Expression by IHC: MLH1: Present/Intact PMS2: Present/Intact MSH2: Present/Intact MSH6: Present/Intact Solid Tumor Mutation Panel and NTRK Fusion Panel: NTRK Fusion Result: Not detected NTRK Fusion Interpretation: No FGFR2, NTRK1, NTRK2, NTRK3, FGFR2, or other reportable gene fusions identified by RNA fusion panel (see comment). COMMENT: Given the NTRK negative result, analysis was performed for 227 additional genes recurrently associated with gene fusions in solid tumors. Sample and run controls are adequate. 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 No FGFR2, FGFR3 or other mutations noted. Please see complete above mentioned consultation reports in EMR Addendum Signed (signature on file) Dr. Erum Bonilla MD 06/01/25 1005 Patient Age/Sex Location Account Attending Physician LUZ CLANCY 85/F CT [id number] Dr. Carlos Bernal MD Signed (signature on file) Dr. Erum Bonilla MD 05/15/25 1643 Normal [facility] Comment on above: Performed By: #### [facility] ####[facility] [address] [place], [address] International normalized rat io (INR) calculationOrdered By: Brian Gonzales on 05-10-2025 INR Coag (Bld) [Relative time] 1.0 {INR} [facility] MCV (mean corpuscular volume ) determinationOrdered By: Brian Gonzales on 05-10-2025 MCV (RBC) [Entitic vol] 87.8 fL 81-99 [facility] Mean corpuscular hemoglobin (MCH) determinationOrdered By: Brian Gonzales on 05-10-2025 MCH (RBC) [Entitic mass] 27.8 pg 27.0-32.0 [facility] Mean corpuscular hemoglobin concentration (MCHC) determinationOrdered By: Brian Gonzales on 05-10-2025 MCHC (RBC) [Mass/Vol] 31.7 g/dL Low 32-36 [facility] Mean platelet volume determi nationOrdered By: Brian Gonzales on 05-10-2025 Platelet mean volume (Bld) [Entitic vol] 10.7 fL 6.2-12.0 [facility] Monocyte percentageOrdered B y: Brian Gonzales on 05-10-2025 Monocytes/100 WBC (Bld) 11.6 % High 0-10 [facility] Neutrophil percentageOrdered By: Brian Gonzales on 05-10-2025 Neutrophils/100 WBC (Bld) 72.5 % High 47-70 [facility] Nucleated red blood cell per centageOrdered By: Brian Gonzales on 05-10-2025 Nucleated RBC/100 WBC (Bld) [Ratio] 0 % 0-5 [facility] Partial Thromboplast Timeon 05-10-2025 aPTT Coag (Bld) [Time] 25.6 s Normal 24.1-36.2 [facility] Comment on above: Performed By: #### L 500.4050, L501.9520 #### [facility] [address] [place], [address] Platelet countOrdered By: Brock Gonzales on 05-10-2025 Platelets (Bld) [#/Vol] 347 10*3/uL 150-450 [facility] Prothrombin Time w/INRon INR Coag (PPP) [Relative time] 1.0 {INR} Normal [facility] Comment on above: Performed By: #### L 500.4050, L501.9520 #### [facility] [address] [place], [address] PT Coag (PPP) [Time] 13.0 s Normal 11.7-14.9 [facility] Comment on above: Performed By: #### L 500.4050, L501.9520 #### [facility] [address] [place], [address] Prothrombin timeOrdered By: Brian Gonzales on 05-10-2025 PT Coag (PPP) [Time] 13.0 s 11.7-14.9 [facility] RBC Auto (Bld) [#/Vol]Ordere d By: Brian Gonzales on 05-10-2025 RBC (Bld) [#/Vol] 3.95 10*6/uL Low 4.2-5.4 [facility] White blood cell (WBC) count Ordered By: Brian Gonzales on 05-10-2025 WBC (Bld) [#/Vol] 6.1 10*3/uL 4.4-11.0 [facility] PET/CT Tumor Base -Thigh Ini ton 05-02-2025 PET/CT Tumor Base -Thigh Init [facility] [address] [place] [address] PET/CT Tumor Base -Thigh Init MR#: [id number] Acct: [id number] Name: LUZ CLANCY Rep #: [id number] : 1940 85 From: Maria A Clay nd, MD PCP: Dr. Paola Corona MD Status: REG RCR Study: PET/CT Tumor Base -Thigh Init Date of Exam: Exam# [id number] Ordering Dr: Carlos Bernal MD EXAM: PET/CT [...] PET will be reported separately. Reading Location: [facility] CC: Dr. Paola Corona MD; Dr. Carlos Bernal MD Rug Receiving Clerk: Signed Normal [facility] Oncology Visit Reporton 04-11 Oncology Visit Report [facility] [address] [place] [address]. [place] [address] OFFICE VISIT Date of Service: 04/24/25 1552 MR#: [id number] Acct: [id number] Name: LUZ CLANCY Rep #: [id number] : 1940 From: Carlos Bernal MD Age/Sex: 85/F Location: [facility] Status: Signed HPI Subjective Date of Service [...] up. Denies fever, weight loss, night sweats. [facility] Medical History Tachycardia Diverticulosis Uncontrolled hypertension [...] No 04/24/25 1634 Date Carlos Bernal MD [facility] Signature: Date (if applicable) CC: TEST BAKER-Lilian Interiano Normal [facility] CT Chest, Abd, Pel w/Contras ton 04-17-2025 CT Chest, Abd, Pel w/Contrast [facility] [facility] [address] [place], [place] [id number] CT Chest, Abd, Pel w/Contrast MR#: [id number] Acct: [id number] Name: LUZ CLANCY Rep #: [id number] : 1940 F 85 From: Erik Barba MD PCP: MARILEE Partida Status: REG CLI Study: CT Chest, Abd, Pel w/Contrast Date of Exam: Exam# [id number] Ordering Dr: Carlos Bernal MD PROCEDURE: CT [...] 3. Other findings as noted. Reading Location: [facility] CC: MARILEE Interiano; Dr. Carlos Bernal MD Rug Receiving Clerk: Signed Normal [facility] Cancer Antigen 125on 025 CA 125 121.0 U/mL High 0.0-38.1 [facility] Comment on above: Result Comment: [employer] Electrochemiluminescence Immunoassay (ECLIA) Values obtained with different assay methods or kits cannot be used interchangeably. Results cannot be interpreted as absolute evidence of the presence or absence of malignant disease. Performed at: [facility] [id number] Supervisor Of Communications: Guero Smyth PhD, Phone: [phone] Performed By: #### L 017.7498, M184.1555 #### [facility] [place], [address] Cancer antigen 125 (CA-125) measurementOrdered By: Carlos Bernal on 04-12-2025 Cancer antigen 125 (CA-125) measurement 121.0 U/mL High 0.0-38.1 [facility] Comment on above: [facility] El ectrochemiluminescence Immunoassay(ECLIA)Values obtained with different assay methods or kits cannotbe used interchangeably. Results cannot be interpreted asabsolute evidence of the presence or absence of malignantdisease.Performed at: [facility] [id number] Director: Guero Smyth PhD, Phone: [phone] Oncology Visit Reporton Oncology Visit Report [facility] [address] [place] [address] OFFICE VISIT Date of Service: 04/12/25 1455 MR#: [id number] Acct: [id number] Name: LUZ CLANCY Rep #: [id number] : 1940 From: Carlos Bernal MD Age/Sex: 85/F Location: [facility] Status: Signed HPI Subjective Date of Service [...] is on observation, comes in for f/u. [facility] Medical History Tachycardia Diverticulosis Uncontrolled hypertension [...] of uterus, (more content not included)... Normal [facility] Cancer Antigen 125on 025 CA 125 83.5 U/mL High 0.0-38.1 [facility] Comment on above: Result Comment: [employer] Electrochemiluminescence Immunoassay (ECLIA) Values obtained with different assay methods or kits cannot be used interchangeably. Results cannot be interpreted as absolute evidence of the presence or absence of malignant disease. Performed at: [address] [id number] Supervisor Of Communications: Guero Smyth PhD, Phone: [phone] Performed By: #### L 100.0100, L3100.5000, L504.2610, L500.4050 ####[facility] [address] [place], [address] Absolute lymphocyte countOrd ered By: Carlos Bernal on 03-22-2025 Lymphocytes Auto (Unsp spec) [#/Vol] 0.82 10*3/uL Low 0.83-4.51 [facility] Absolute neutrophil countOrd ered By: Carlos Bernal on 03-22-2025 Neutrophils (Bld) [#/Vol] 5.1 10*3/uL 2.0-7.7 [facility] Anion gap in Serum or Plasma Ordered By: Carlos [facility] on 03-22-2025 Anion gap [Moles/Vol] 12 mmol/L 5-15 [facility] Automated lymphocyte count a s percentage of total leukocytesOrdered By: Carlos Greenberg on 03-22-2025 Lymphocytes/100 WBC Auto (Unsp spec) 12.6 % Low 19-41 [facility] BUN/creatinine ratioOrdered By: [facility] on 03-22-2025 Urea nitrogen/Creatinine [Mass ratio] 19.3 mg/mg 10-20 [facility] Basophil percentageOrdered B y: [facility] on 03-22-2025 Basophils/100 WBC (Bld) 0.9 % 0- [facility] Bilirubin, totalOrdered By: [facility] on 03-22-2025 Bilirubin [Mass/Vol] 0.24 mg/dL 0.00-1.30 [facility] CBC W/Diff, Automatedon 03-12 Absolute Lymph 0.82 X10 3/uL Low 0.83-4.51 [facility] Comment on above: Performed By: #### L 100.0100, L3100.5000, L504.2610, L500.4050 ####[facility] [address] [place], [address] Absolute Neut 5.1 X10 3/uL Normal 2.0-7.7 [facility] Comment on above: Performed By: #### L 100.0100, L3100.5000, L504.2610, L500.4050 ####[facility] [address] [place], [address] Basophils/100 WBC (Bld) 0.9 % Normal 0-1 [facility] Comment on above: Performed By: #### L 100.0100, L3100.5000, L504.2610, L500.4050 ####[facility] [address] [place], [address] Eosinophils/100 WBC (Bld) 1.4 % Normal 0-5 [facility] Comment on above: Performed By: #### L 100.0100, L3100.5000, L504.2610, L500.4050 ####[facility] [address] [place], [address] Erythrocyte distribution width (RBC) [Ratio] 12.3 % Normal 11.6-14.6 [facility] Comment on above: Performed By: #### L 100.0100, L3100.5000, L504.2610, L500.4050 ####[facility] [address] [place], [address] Hematocrit (Bld) [Volume fraction] 32.9 % Low 37-47 [facility] Comment on above: Performed By: #### L 100.0100, L3100.5000, L504.2610, L500.4050 ####[facility] [address] [place], [address] Hemoglobin (Bld) [Mass/Vol] 10.4 g/dL Low 12.0-15.0 [facility] Comment on above: Performed By: #### L 100.0100, L3100.5000, L504.2610, L500.4050 ####[facility] [address] [place], [address] IG% 0.300 Normal 0.0-0.9 [facility] Comment on above: Result Comment: IG% - Immature Granulocytes (promyelocytes, myelocytes and metamyelocytes) > 1% indicates that a LEFT SHIFT is Present. Performed By: #### L 100.0100, L3100.5000, L504.2610, L500.4050 ####[facility] [address] [place], [address] Lymphocytes/100 WBC (Bld) 12.6 % Low 19-41 [facility] Comment on above: Performed By: #### L 100.0100, L3100.5000, L504.2610, L500.4050 ####[facility] [address] [place], [address] MCH (RBC) [Entitic mass] 28.1 pg Normal 27.0-32.0 [facility] Comment on above: Performed By: #### L 100.0100, L3100.5000, L504.2610, L500.4050 ####[facility] [address] [place], [address] MCHC (RBC) [Mass/Vol] 31.6 g/dL Low 32-36 [facility] Comment on above: Performed By: #### L 100.0100, L3100.5000, L504.2610, L500.4050 ####[facility] [address] [place], [address] MCV (RBC) [Entitic vol] 88.9 fL Normal 81-99 [facility] Comment on above: Performed By: #### L 100.0100, L3100.5000, L504.2610, L500.4050 ####[facility] [address] [place], [address] Monocytes/100 WBC (Bld) 7.4 % Normal 0-10 [facility] Comment on above: Performed By: #### L 100.0100, L3100.5000, L504.2610, L500.4050 ####[facility] [address] [place], [address] Neutrophils/100 WBC (Bld) 77.4 % High 47-70 [facility] Comment on above: Performed By: #### L 100.0100, L3100.5000, L504.2610, L500.4050 ####[facility] [address] [place], [address] Nucleated RBC (Bld) [#/Vol] 0 10*3/uL Normal 0-5 [facility] Comment on above: Performed By: #### L 100.0100, L3100.5000, L504.2610, L500.4050 ####[facility] [address] [place], [address] Platelet mean volume (Bld) [Entitic vol] 10.6 fL Normal 6.2-12.0 [facility] Comment on above: Performed By: #### L 100.0100, L3100.5000, L504.2610, L500.4050 ####[facility] [address] [place], [address] Platelets (Bld) [#/Vol] 314 10*3/uL Normal 150-450 [facility] Comment on above: Performed By: #### L 100.0100, L3100.5000, L504.2610, L500.4050 ####[facility] [address] [place], [address] RBC (Bld) [#/Vol] 3.70 10*6/uL Low 4.2-5.4 [facility] Comment on above: Performed By: #### L 100.0100, L3100.5000, L504.2610, L500.4050 ####[facility] [address] [place], [address] RDW SD 39.8 fl Normal 35.1-43.9 [facility] Comment on above: Performed By: #### L 100.0100, L3100.5000, L504.2610, L500.4050 ####[facility] [address] [place], [address] WBC (Bld) [#/Vol] 6.5 10*3/uL Normal 4.4-11.0 [facility] Comment on above: Performed By: #### L 100.0100, L3100.5000, L504.2610, L500.4050 ####[facility] [address] [place], [address] Carbon dioxide, total [Moles /volume] in Central venous bloodOrdered By: Carlos Bernal on 03-22-2025 CO2 [Moles/Vol] 21.8 mmol/L 21.0-32.0 [facility] Chloride assayOrdered By: Emily Bernal on 03-22-2025 Chloride [Moles/Vol] 102 mmol/L 98-108 [facility] Comprehensive Metabolic Prof ilon 03-22-2025 Albumin [Mass/Vol] 4.1 g/dL Normal 3.4-4.8 [facility] Comment on above: Performed By: #### L 100.0100, L3100.5000, L504.2610, L500.4050 ####[facility] [address] [place], [address] Albumin/Globulin [Mass ratio] 1.3 {ratio} Normal 0.9-2.4 [facility] Comment on above: Performed By: #### L 100.0100, L3100.5000, L504.2610, L500.4050 ####[facility] [address] [place], [address] ALK PHOS 84 U/L Normal 35-104 [facility] Comment on above: Performed By: #### L 100.0100, L3100.5000, L504.2610, L500.4050 ####[facility] [address] [place], [address] ALT [Catalytic activity/Vol] 18 U/L Normal <=34 [facility] Comment on above: Performed By: #### L 100.0100, L3100.5000, L504.2610, L500.4050 ####[facility] [address] [place], [address] AST [Catalytic activity/Vol] 32 U/L Normal <=31 [facility] Comment on above: Performed By: #### L 100.0100, L3100.5000, L504.2610, L500.4050 ####[facility] [address] [place], [address] Bilirubin [Mass/Vol] 0.24 mg/dL Normal 0.00-1.30 [facility] Comment on above: Performed By: #### L 100.0100, L3100.5000, L504.2610, L500.4050 ####[facility] [address] [place], [address] BUN/CRE 19.3 RATIO Normal 10-20 [facility] Comment on above: Performed By: #### L 100.0100, L3100.5000, L504.2610, L500.4050 ####[facility] [address] [place], [address] Calcium [Mass/Vol] 9.5 mg/dL Normal 7.6-11.0 [facility] Comment on above: Performed By: #### L 100.0100, L3100.5000, L504.2610, L500.4050 ####[facility] [address] [place], [address] Chloride [Moles/Vol] 102 mmol/L Normal 98-108 [facility] Comment on above: Performed By: #### L 100.0100, L3100.5000, L504.2610, L500.4050 ####[facility] [address] [place], [address] CO2 [Moles/Vol] 21.8 mmol/L Normal 21.0-32.0 [facility] Comment on above: Performed By: #### L 100.0100, L3100.5000, L504.2610, L500.4050 ####[facility] [address] [place], [address] Creatinine [Mass/Vol] 0.77 mg/dL Normal 0.70-1.20 [facility] Comment on above: Performed By: #### L 100.0100, L3100.5000, L504.2610, L500.4050 ####[facility] [address] [place], [address] ECRCL 47.95 ml/min Low 50-250 [facility] Comment on above: Performed By: #### L 100.0100, L3100.5000, L504.2610, L500.4050 ####[facility] [address] [place], [address] GAP 12 Normal 5-15 [facility] Comment on above: Performed By: #### L 100.0100, L3100.5000, L504.2610, L500.4050 ####[facility] [address] [place], [address] GFR/1.73 sq M.predicted among non-blacks MDRD (S/P/Bld) [Vol rate/Area] 77 mL/min/{1.73_m2} Normal >60 [facility] Comment on above: Result Comment: mL/m in/1.73m2 CKD-EPI Creatinine Equation (2020) Performed By: #### L 100.0100, L3100.5000, L504.2610, L500.4050 ####[facility] [address] [place], [address] Globulin (S) [Mass/Vol] 3.2 g/dL Normal 2.2-4.2 [facility] Comment on above: Performed By: #### L 100.0100, L3100.5000, L504.2610, L500.4050 ####[facility] [address] [place], [address] Glucose [Mass/Vol] 125 mg/dL High 70-99 [facility] Comment on above: Performed By: #### L 100.0100, L3100.5000, L504.2610, L500.4050 ####[facility] [address] [place], [address] Potassium [Moles/Vol] 3.7 mmol/L Normal 3.3-5.1 [facility] Comment on above: Performed By: #### L 100.0100, L3100.5000, L504.2610, L500.4050 ####[facility] [address] [place], [address] Sodium [Moles/Vol] 136 mmol/L Normal 133-145 [facility] Comment on above: Performed By: #### L 100.0100, L3100.5000, L504.2610, L500.4050 ####[facility] [address] [place], [address] T PROT 7.3 g/dL Normal 5.9-8.4 [facility] Comment on above: Performed By: #### L 100.0100, L3100.5000, L504.2610, L500.4050 ####[facility] [address] [place], [address] Urea nitrogen [Mass/Vol] 15 mg/dL Normal 4-19 [facility] Comment on above: Performed By: #### L 100.0100, L3100.5000, L504.2610, L500.4050 ####[facility] [address] [place], [address] Eosinophil percentageOrdered By: Carlos Bernal on 03-22-2025 Eosinophils/100 WBC (Bld) 1.4 % 0-5 [facility] Erythrocyte distribution wid th ratioOrdered By: Carlos Bernal on 03-22-2025 Erythrocyte distribution width (RBC) [Ratio] 12.3 % 11.6-14.6 [facility] Erythrocyte distribution wid th standard deviationOrdered By: Carlos Bernal on 03-22-2025 Erythrocyte distribution width (RBC) [Ratio] 39.8 fl 35.1-43.9 [facility] Glomerular filtration rate ( GFR) estimation/1.73 sq m using serum, plasma, or whole bOrdered By: Carlos Bernal on 03-22-2025 GFR/1.73 sq M.predicted among non-blacks MDRD (S/P/Bld) [Vol rate/Area] 77 mL/min/{1.73_m2} >60 [facility] Comment on above: mL/min/1.73m2 CKD-EP I Creatinine Equation (2020) Hematocrit Auto (Bld) [Volum e fraction]Ordered By: Carlos Bernal on 03-22-2025 Hematocrit (Bld) [Volume fraction] 32.9 % Low 37-47 [facility] Hemoglobin measurementOrdere d By: Carlos Bernal on 03-22-2025 Hemoglobin (Bld) [Mass/Vol] 10.4 g/dL Low 12.0-15.0 [facility] Immature granulocytes/100 WB C Auto (Bld)Ordered By: Carlos Bernal on 03-22-2025 Immature granulocytes/100 WBC (Bld) 0.300 % 0.0-0.9 [facility] Comment on above: IG% - Immature Granu locytes (promyelocytes, myelocytes and metamyelocytes) > 1% indicates that a LEFT SHIFT is Present. LDHon 03-22-2025 LDH 279 U/L High 84-246 [facility] Comment on above: Order Comment: 1 Performed By: #### L 100.0100, L3100.5000, L504.2610, L500.4050 ####[facility] [address] [place], [address] Laboratory - Chemistry and C hemistry - challengeOrdered By: Carlos Bernal on 03-22-2025 AST [Catalytic activity/Vol] 32 U/L <32 [facility] Lactate dehydrogenase (LDH) measurementOrdered By: [facility] on 03-22-2025 LDH [Catalytic activity/Vol] 279 U/L High 84-246 [facility] MCV (mean corpuscular volume ) determinationOrdered By: Carlos Bernal on 03-22-2025 MCV (RBC) [Entitic vol] 88.9 fL 81-99 [facility] Mean corpuscular hemoglobin (MCH) determinationOrdered By: Carlos Bernal on 03-22-2025 MCH (RBC) [Entitic mass] 28.1 pg 27.0-32.0 [facility] Mean corpuscular hemoglobin concentration (MCHC) determinationOrdered By: Carlos Bernal on 03-22-2025 MCHC (RBC) [Mass/Vol] 31.6 g/dL Low 32-36 [facility] Mean platelet volume determi nationOrdered By: Carlos Bernal on 03-22-2025 Platelet mean volume (Bld) [Entitic vol] 10.6 fL 6.2-12.0 [facility] Monocyte percentageOrdered B y: Carlos Bernal on 03-22-2025 Monocytes/100 WBC (Bld) 7.4 % 0-10 [facility] Neutrophil percentageOrdered By: Carlos Bernal on 03-22-2025 Neutrophils/100 WBC (Bld) 77.4 % High 47-70 [facility] Nucleated red blood cell per centageOrdered By: Carlos Bernal on 03-22-2025 Nucleated RBC/100 WBC (Bld) [Ratio] 0 % 0-5 [facility] Platelet countOrdered By: Emily Bernal on 03-22-2025 Platelets (Bld) [#/Vol] 314 10*3/uL 150-450 [facility] Potassium measurement (mass/ volume)Ordered By: Carlos Bernal on 03-22-2025 Potassium (Unsp spec) [Mass/Vol] 3.7 mmol/L 3.3-5.1 [facility] RBC Auto (Bld) [#/Vol]Ordere d By: Carlos Bernal on 03-22-2025 RBC (Bld) [#/Vol] 3.70 10*6/uL Low 4.2-5.4 [facility] Serum creatinine measurement (mass/volume)Ordered By: Carlos Bernal on 03-22-2025 Creatinine [Mass/Vol] 0.77 mg/dL 0.70-1.20 [facility] Serum globulin measurementOr dered By: Carlos Bernal on 03-22-2025 Globulin (S) [Mass/Vol] 3.2 g/dL 2.2-4.2 [facility] Serum glucose measurement (m ass/volume)Ordered By: Carlos Bernal on 03-22-2025 Glucose [Mass/Vol] 125 mg/dL High 70-99 [facility] Serum or plasma alanine thompson otransferase (ALT) measurementOrdered By: Carlos Bernal on 03-22-2025 ALT [Catalytic activity/Vol] 18 U/L <35 [facility] Serum or plasma albumin charlene urement (mass/volume)Ordered By: Carlos Bernal on 03-22-2025 Albumin [Mass/Vol] 4.1 g/dL 3.4-4.8 [facility] Serum or plasma albumin/glob ulin mass ratioOrdered By: Carlos Bernal on 03-22-2025 Albumin/Globulin [Mass ratio] 1.3 {ratio} 0.9-2.4 [facility] Serum or plasma alkaline dameon sphatase measurementOrdered By: Carlos Bernal on 03-22-2025 ALP [Catalytic activity/Vol] 84 U/L 35-104 [facility] Serum or plasma calcium charlene urement (mass/volume)Ordered By: Carlos Bernal on 03-22-2025 Calcium [Mass/Vol] 9.5 mg/dL 7.6-11.0 [facility] Serum or plasma urea nitroge n measurement (mass/volume)Ordered By: Carlos Bernal on 03-22-2025 Urea nitrogen [Mass/Vol] 15 mg/dL 4-19 [facility] Sodium levelOrdered By: Pedro Bernal on 03-22-2025 Sodium [Moles/Vol] 136 mmol/L 133-145 [facility] Total proteinOrdered By: Scot Bernal on 03-22-2025 Protein [Mass/Vol] 7.3 g/dL 5.9-8.4 [facility] White blood cell (WBC) count Ordered By: Carlos Bernal on 03-22-2025 WBC (Bld) [#/Vol] 6.5 10*3/uL 4.4-11.0 [facility] Hemoglobin A1con 02-27-2025 HbA1c (Bld) [Mass fraction] 5.6 % Normal <=5.6 [facility] Comment on above: Order Comment: Order Date: 05/29/25 Order Info: [id number] - CMP Order Info: [id number] - TSH Result Comment: Norm al < 5.7 % Prediabetic 5.7 - 6.4 % Diabetic >or= 6.5 % Please note range changes. Performed By: #### L 500.4050, L501.9520 #### [facility] [address] [facility] [place], [address] Hemoglobin A1c percentageOrd ered By: Lela Jaydon on 02-27-2025 HbA1c (Bld) [Mass fraction] 5.6 % <5.7 [facility] Comment on above: Normal < 5.7 % Predi abetic 5.7 - 6.4 % Diabetic >or= 6.5 % Please note range changes. TSH DL <= 0.005 mIU/L QnOrde red By: Lela Interiano on 02-27-2025 TSH Qn 0.144 uIU/mL Low 0.300-4.200 [facility] Thyroid Stim Hormone (TSH)on 02-27-2025 TSH 0.144 uIU/mL Low 0.300-4.200 [facility] Comment on above: Order Comment: Order Date: 05/29/25 Order Info: [id number] - CMP Order Info: [id number] - TSH Performed By: #### L 500.4050, L501.9520 #### [facility] [address], [address] Stress Reporton 02-07-2025 Stress Report [facility] [address] [place] [address] MR#: [id number] Acct: [id number] Name: LUZ CLANCY Rep #: [id number] : 1940 84 From: Riley Mckeon MD [...] MD Date Dictated: 02/07/25744 Date Transcribed: 02/07/25744 Rug Receiving Clerk: CO Signed Normal [facility] Echo Completeon 02-03-2025 Echo Complete [facility] [address] [place] [address] Echo Complete 02/03/25 0914 MR#: [id number] Acct: [id number] Name: LUZ CLANCY Rep #: [id number] : 1940 84 From: Riley Mckeon MD Attending Dr: Dr. Riley Mckeon MD Status: INDIGO ROGERS Ordering Dr: Riley Mckeon MD Date: 02/03/25 Location: [facility] Sex: F C Admitted: Reason For Study [...] Corona Performed By: Angelica James, JOHANNA, RVT 02/07/25 0831 Date Riley Mckeon MD CC: Dr. Paola Corona MD; Dr. Riley Mckeon MD Date Dictated: 02/03/25913 Date Transcribed: 02/07/25830 Rug Receiving Clerk: Signed Normal [facility] 12 Lead EKG performed by [facility] on 01-11-2025 12 Lead EKG performed by [facility] [address] [place] [address] 12 Lead EKG performed by [facility] 01/11/251325 MR#: [id number] Acct: [id number] Name: LUZ CLANCY Rep #: [id number] : 1940 84 From: Riley Mckeon MD Attending Dr: Dr. 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 -Nonspecific ST depression -Nondiagnostic. ABNORMAL Electronically signed on 01/18/2025 at 11:27 by Riley Mckeonwood Software Version 8610 01/18/25 1130 Date Riley Mckeon MD CC: Dr. Paola Corona MD Date Dictated: 01/11/251325 Date Transcribed: 01/11/251325 Rug Receiving Clerk: CO Signed Normal [facility] Cardiology Visit Reporton Cardiology Visit Report [facility] [address] [place] [address] OFFICE VISIT Date of Service: 01/11/25 MR#: [id number] Acct: [id number] Name: LUZ CLANCY Rep #: [id number] : 1940 Provider: Dr. Riley Mckeon MD Age/Sex: 84/F Location: [facility] Status: Signed HPI HPI History of [...] Source Monitor Intake Visit Reasons: Tachycardia (Jolliff) Supervisor Mails Required: No Accompanied by: Daughter Is patient [...] normal visual (more content not included)... Normal [facility] TSH DL <= 0.005 mIU/L QnOrde red By: Paola Corona on 12-20-2024 Thyroid Stimulating Hormone (TSH) 0.321 uIU/mL 0.300-4.200 [facility] TSH Qn 0.321 uIU/mL 0.300-4.200 [facility] Thyroid Stim Hormone (TSH)on 12-20-2024 TSH 0.321 uIU/mL Normal 0.300-4.200 [facility] Comment on above: Order Comment: Order Date: 10/25/24 Order Info: 3016-3 - TSH Performed By: #### L 501.9520 #### [facility] [address] [place] [address], [address] Absolute neutrophil countOrd ered By: Paola Corona on 10-24-2024 Neutrophils (Bld) [#/Vol] 7.7 10*3/uL 2.0-7.7 [facility] Albumin to globulin ratioOrd ered By: Paola Corona on 10-24-2024 Albumin/Globulin [Mass ratio] 1.0 {ratio} 0.9-2.4 [facility] Basophil percentageOrdered B y: Paola Corona on 10-24-2024 Basophils/100 WBC (Bld) 0.5 % 0-1 [facility] Bilirubin, totalOrdered By: Paola Corona on 10-24-2024 Bilirubin [Mass/Vol] 0.20 mg/dL 0.20-1.00 [facility] Comment on above: For patients on eltr ombopag therapy, use of Dimension Tyrone TBIL is not recommended. Blood urea nitrogen (BUN)/cr eatinine ratioOrdered By: Paola Corona on 10-24-2024 Urea nitrogen/Creatinine [Mass ratio] 17.8 mg/mg 10-20 [facility] CBC W/Diff, Automatedon -10 14-2024 Absolute Lymph 1.01 X10 3/uL Normal 0.83-4.51 [facility] Comment on above: Performed By: #### L 500.4050, L100.0100, L501.9520 ####[facility] [address] [place], [address] Absolute Neut 7.7 X10 3/uL Normal 2.0-7.7 [facility] Comment on above: Performed By: #### L 500.4050, L100.0100, L501.9520 ####[facility] [address] [place], [address] Basophils/100 WBC (Bld) 0.5 % Normal 0-1 [facility] Comment on above: Performed By: #### L 500.4050, L100.0100, L501.9520 ####[facility] [address] [place], [address] Eosinophils/100 WBC (Bld) 0.4 % Normal 0-5 [facility] Comment on above: Performed By: #### L 500.4050, L100.0100, L501.9520 ####[facility] [address] [place], [address] Erythrocyte distribution width (RBC) [Ratio] 12.0 % Normal 11.6-14.6 [facility] Comment on above: Performed By: #### L 500.4050, L100.0100, L501.9520 ####[facility] [address] [place], [address] Hematocrit (Bld) [Volume fraction] 37.3 % Normal 37-47 [facility] Comment on above: Performed By: #### L 500.4050, L100.0100, L501.9520 ####[facility] [address] [place], [address] Hemoglobin (Bld) [Mass/Vol] 12.2 g/dL Normal 12.0-15.0 [facility] Comment on above: Performed By: #### L 500.4050, L100.0100, L501.9520 ####[facility] [address] [place], [address] IG% 0.300 Normal 0.0-0.9 [facility] Comment on above: Result Comment: IG% - Immature Granulocytes (promyelocytes, myelocytes and metamyelocytes) > 1% indicates that a LEFT SHIFT is Present. Performed By: #### L 500.4050, L100.0100, L501.9520 ####[facility] [address] [place], [address] Lymphocytes/100 WBC (Bld) 10.6 % Low 19-41 [facility] Comment on above: Performed By: #### L 500.4050, L100.0100, L501.9520 ####[facility] [address] [place], [address] MCH (RBC) [Entitic mass] 30.0 pg Normal 27.0-32.0 [facility] Comment on above: Performed By: #### L 500.4050, L100.0100, L501.9520 ####[facility] [address] [place], [address] MCHC (RBC) [Mass/Vol] 32.7 g/dL Normal 32-36 [facility] Comment on above: Performed By: #### L 500.4050, L100.0100, L501.9520 ####[facility] [address] [place], [address] MCV (RBC) [Entitic vol] 91.6 fL Normal 81-99 [facility] Comment on above: Performed By: #### L 500.4050, L100.0100, L501.9520 ####[facility] [address] [place], [address] Monocytes/100 WBC (Bld) 7.9 % Normal 0-10 [facility] Comment on above: Performed By: #### L 500.4050, L100.0100, L501.9520 ####[facility] [address] [place], [address] Neutrophils/100 WBC (Bld) 80.3 % High 47-70 [facility] Comment on above: Performed By: #### L 500.4050, L100.0100, L501.9520 ####[facility] [address] [place], [address] Nucleated RBC (Bld) [#/Vol] 0 10*3/uL Normal 0-5 [facility] Comment on above: Performed By: #### L 500.4050, L100.0100, L501.9520 ####[facility] [address] [place], [address] Platelet mean volume (Bld) [Entitic vol] 11.5 fL Normal 6.2-12.0 [facility] Comment on above: Performed By: #### L 500.4050, L100.0100, L501.9520 ####[facility] [address] [place], [address] Platelets (Bld) [#/Vol] 296 10*3/uL Normal 150-450 [facility] Comment on above: Performed By: #### L 500.4050, L100.0100, L501.9520 ####[facility] [address] [place], [address] RBC (Bld) [#/Vol] 4.07 10*6/uL Low 4.2-5.4 [facility] Comment on above: Performed By: #### L 500.4050, L100.0100, L501.9520 ####[facility] [address] [place], [address] RDW SD 40.2 fl Normal 35.1-43.9 [facility] Comment on above: Performed By: #### L 500.4050, L100.0100, L5.20 ####[facility] [address] [place], [address] WBC (Bld) [#/Vol] 9.6 10*3/uL Normal 4.4-11.0 [facility] Comment on above: Performed By: #### L 500.4050, L100.0100, ####[facility] [address] [place], [address] Carbon dioxide measurementOr dered By: Paola Corona on 10-24-2024 CO2 [Moles/Vol] 26.0 mmol/L 21.0-32.0 [facility] Chloride measurementOrdered By: Paola Corona on 10-24-2024 Chloride [Moles/Vol] 106 mmol/L 98-107 [facility] Comprehensive Metabolic Prof ilon 10-24-2024 Albumin [Mass/Vol] 3.9 g/dL Normal 3.2-5.0 [facility] Comment on above: Performed By: #### L 500.4050, L100.0100, L5.9519 ####[facility] [address] [place], [address] Albumin/Globulin [Mass ratio] 1.0 {ratio} Normal 0.9-2.4 [facility] Comment on above: Performed By: #### L 500.4050, L100.0100, L5.9519 ####[facility] [address] [place], [address] ALK P 76 U/L Normal 45-117 [facility] Comment on above: Performed By: #### L 500.4050, L100.0100, ####[facility] [address] [place], [address] ALT [Catalytic activity/Vol] 27 U/L Normal 13-56 [facility] Comment on above: Performed By: #### L 500.4050, L100.0100, L501.9520 ####[facility] [address] [place], [address] AST [Catalytic activity/Vol] 26 U/L Normal 15-37 [facility] Comment on above: Performed By: #### L 500.4050, L100.0100, L501.9520 ####[facility] [address] [place], [address] Bilirubin [Mass/Vol] 0.20 mg/dL Normal 0.20-1.00 [facility] Comment on above: Result Comment: For patients on eltrombopag therapy, use of Dimension [place] TBIL is not recommended. Performed By: #### L 500.4050, L100.0100, L501.95 ####[facility] [address] [place], [address] BUN/CRE 17.8 RATIO Normal 10-20 [facility] Comment on above: Performed By: #### L 500.4050, L100.0100, L501.9520 ####[facility] [address] [place], [address] CA,Total 9.4 mg/dL Normal 8.5-10.1 [facility] Comment on above: Performed By: #### L 500.4050, L100.0100, L501.9520 ####[facility] [address] [place], [address] Chloride [Moles/Vol] 106 mmol/L Normal 98-107 [facility] Comment on above: Performed By: #### L 500.4050, L100.0100, L501.9520 ####[facility] [address] [place], [address] CO2 [Moles/Vol] 26.0 mmol/L Normal 21.0-32.0 [facility] Comment on above: Performed By: #### L 500.4050, L100.0100, L501.9520 ####[facility] [address] [place], [address] Creatinine [Mass/Vol] 0.73 mg/dL Normal 0.55-1.02 [facility] Comment on above: Result Comment: The validity of the calculated GFR GFRAA in patients over 70 years has not been determined. Clinical correlation is essential. Performed By: #### L 500.4050, L100.0100, L501.9520 ####[facility] [address] [place], [address] EST GFR - AA 98 mL/min Normal >60 [facility] Comment on above: Result Comment: Afri can [place] GFR Calc Performed By: #### L 500.4050, L100.0100, L501.9520 ####[facility] [address] [place], [address] GAP 5 Normal 5-15 [facility] Comment on above: Performed By: #### L 500.4050, L100.0100, L501.9520 ####[facility] [address] [place], [address] GFR/1.73 sq M.predicted among non-blacks MDRD (S/P/Bld) [Vol rate/Area] 81 mL/min/{1.73_m2} Normal >60 [facility] Comment on above: Result Comment: Non- GFR Calc Performed By: #### L 500.4050, L100.0100, L501.9520 ####[facility] [address] [place], [address] Globulin (S) [Mass/Vol] 4.1 g/dL Normal 2.2-4.2 [facility] Comment on above: Performed By: #### L 500.4050, L100.0100, L501.9520 ####[facility] [address] [place], [address] Glucose [Mass/Vol] 104 mg/dL Normal 74-106 [facility] Comment on above: Result Comment: Fast ing Glucose result from 100 to 125 mg/dL suggests IMPAIRED HOMEOSTASIS per A.D.A. criteria. Performed By: #### L 500.4050, L100.0100, L501.9520 ####[facility] [address] [place], [address] Potassium [Moles/Vol] 3.4 mmol/L Low 3.5-5.1 [facility] Comment on above: Performed By: #### L 500.4050, L100.0100, L501.9520 ####[facility] [address] [place], [address] Sodium [Moles/Vol] 136 mmol/L Normal 136-145 [facility] Comment on above: Performed By: #### L 500.4050, L100.0100, L501.9520 ####[facility] [address] [place], [address] T PROT 8.0 g/dL Normal 6.4-8.2 [facility] Comment on above: Performed By: #### L 500.4050, L100.0100, L501.9520 ####[facility] [address] [place], [address] Urea nitrogen [Mass/Vol] 13 mg/dL Normal 7-18 [facility] Comment on above: Performed By: #### L 500.4050, L100.0100, L501.9520 ####[facility] [address] [place], [address] Eosinophil percentageOrdered By: Paola Corona on 10-24-2024 Eosinophils/100 WBC (Bld) 0.4 % 0-5 [facility] Erythrocyte distribution wid th ratioOrdered By: Paola Corona on 10-24-2024 Erythrocyte distribution width (RBC) [Ratio] 12.0 % 11.6-14.6 [facility] Erythrocyte distribution wid th standard deviationOrdered By: Paola Corona on 10-24-2024 Erythrocyte distribution width (RBC) [Entitic vol] 40.2 fL 35.1-43.9 [facility] Estimated glomerular filtrat ion rate (GFR) AmericanOrdered By: Paola Corona on 10-24-2024 Estimated GFR (MDRD) Amer 98 mL/min >60 [facility] Comment on above: GFR Calc Glomerular filtration rate ( GFR) estimationOrdered By: Paola Corona on 10-24-2024 Estimated GFR (MDRD) Non-Af Amer 81 mL/min >60 [facility] Comment on above: Non- GFR Calc Glucose measurementOrdered B y: Paola Corona on 10-24-2024 Glucose [Mass/Vol] 104 mg/dL 74-106 [facility] Comment on above: Fasting Glucose resu lt from 100 to 125 mg/dL suggests IMPAIRED HOMEOSTASIS per A.D.A. criteria. Hematocrit Auto (Bld) [Volum e fraction]Ordered By: Paola Corona on 10-24-2024 Hematocrit (Bld) [Volume fraction] 37.3 % 37-47 [facility] Hemoglobin measurementOrdere d By: Paola Corona on 10-24-2024 Hemoglobin (Bld) [Mass/Vol] 12.2 g/dL 12.0-15.0 [facility] Immature granulocytes/100 WB C Auto (Bld)Ordered By: Paola Corona on 10-24-2024 Immature granulocytes/100 WBC (Bld) 0.300 % 0.0-0.9 [facility] Comment on above: IG% - Immature Granu locytes (promyelocytes, myelocytes and metamyelocytes) > 1% indicates that a LEFT SHIFT is Present. Laboratory - Chemistry and C hemistry - challengeOrdered By: Paola Corona on 10-24-2024 AST [Catalytic activity/Vol] 26 U/L 15-37 [facility] Lymphocytes Auto (Unsp spec) [#/Vol]Ordered By: Paola Corona on 10-24-2024 Lymphocytes (Bld) [#/Vol] 1.01 10*3/uL 0.83-4.51 [facility] Lymphocytes/100 WBC Auto (Un sp spec)Ordered By: Paola Corona on 10-24-2024 Lymphocytes/100 WBC (Bld) 10.6 % Low 19-41 [facility] MCV (mean corpuscular volume ) determinationOrdered By: Paola Corona on 10-24-2024 MCV (RBC) [Entitic vol] 91.6 fL 81-99 [facility] Mean corpuscular hemoglobin (MCH) determinationOrdered By: Paola Corona on 10-24-2024 MCH (RBC) [Entitic mass] 30.0 pg 27.0-32.0 [facility] Mean corpuscular hemoglobin concentration (MCHC) determinationOrdered By: Paola Corona on 10-24-2024 MCHC (RBC) [Mass/Vol] 32.7 g/dL 32-36 [facility] Mean platelet volume determi nationOrdered By: Paola Corona on 10-24-2024 Platelet mean volume (Bld) [Entitic vol] 11.5 fL 6.2-12.0 [facility] Monocyte percentageOrdered B y: Paola Corona on 10-24-2024 Monocytes/100 WBC (Bld) 7.9 % 0-10 [facility] Neutrophil percentageOrdered By: Paola Corona on 10-24-2024 Neutrophils/100 WBC (Bld) 80.3 % High 47-70 [facility] Nucleated red blood cell per centageOrdered By: Paola Corona on 10-24-2024 Nucleated RBC/100 WBC (Bld) [Ratio] 0 % 0-5 [facility] Platelet countOrdered By: Guerrero Corona on 10-24-2024 Platelets (Bld) [#/Vol] 296 10*3/uL 150-450 [facility] Potassium measurementOrdered By: Paola Corona on 10-24-2024 Potassium [Moles/Vol] 3.4 mmol/L Low 3.5-5.1 [facility] RBC Auto (Bld) [#/Vol]Ordere d By: Paola Corona on 10-24-2024 RBC (Bld) [#/Vol] 4.07 10*6/uL Low 4.2-5.4 [facility] Serum anion gap measurementO rdered By: Paola Corona on 10-24-2024 Anion gap [Moles/Vol] 5 mmol/L 5-15 [facility] Serum globulin measurementOr dered By: Paola Corona on 10-24-2024 Globulin (S) [Mass/Vol] 4.1 g/dL 2.2-4.2 [facility] Serum or plasma alanine thompson otransferase (ALT) measurementOrdered By: Paola Corona on 10-24-2024 ALT [Catalytic activity/Vol] 27 U/L 13-56 [facility] Serum or plasma albumin charlene urement (mass/volume)Ordered By: Paola Corona on 10-24-2024 Albumin [Mass/Vol] 3.9 g/dL 3.2-5.0 [facility] Serum or plasma alkaline dameon sphatase measurementOrdered By: Paola Corona on 10-24-2024 ALP [Catalytic activity/Vol] 76 U/L 45-117 [facility] Serum or plasma calcium charlene urement (mass/volume)Ordered By: Paola Corona on 10-24-2024 Calcium [Mass/Vol] 9.4 mg/dL 8.5-10.1 [facility] Serum or plasma creatinine m easurement (mass/volume)Ordered By: Paola Corona on 10-24-2024 Creatinine [Mass/Vol] 0.73 mg/dL 0.55-1.02 [facility] Comment on above: The validity of the calculated GFR & GFRAA in patients over 70 years has not been determined. Clinical correlation is essential. Serum or plasma urea nitroge n measurement (mass/volume)Ordered By: Paola Corona on 10-24-2024 Urea nitrogen [Mass/Vol] 13 mg/dL 7-18 [facility] Sodium levelOrdered By: Paola Corona on 10-24-2024 Sodium [Moles/Vol] 136 mmol/L 136-145 [facility] TSH QnOrdered By: Paola hopkins on 10-24-2024 Thyroid Stimulating Hormone (TSH) 6.580 uIU/mL High 0.358-3.740 [facility] Thyroid Stim Hormone (TSH)on 10-24-2024 TSH 6.580 uIU/mL High 0.358-3.740 [facility] Comment on above: Performed By: #### L 500.4050, L100.0100, L501.9520 ####[facility] [address] [place], [address] Total proteinOrdered By: Paola Corona on 10-24-2024 Protein [Mass/Vol] 8.0 g/dL 6.4-8.2 [facility] White blood cell (WBC) count Ordered By: Paola Corona on 10-24-2024 WBC (Bld) [#/Vol] 9.6 10*3/uL 4.4-11.0 [facility] Urgent Care Visit Reporton 0 10-21-2024 Urgent Care Visit Report [facility] [address], [address] [place], [place] [address] OFFICE VISIT Date of Service: 10/21/24 MR#: [id number] Acct: [id number] Name: LUZ CLANCY Rep #: [id number] : 1940 Provider: MARLY Fox Age/Sex: 84/F Location: [facility] Status: Signed Intake Vital Signs 04/05/24 14:52 10/21/24 06:35 Height 5 ft 5 in BP 160/76 H Blood Pressure Location Lt brachial Position Sitting Respiration 16 Pulse 116 H Pulse Source NIBP Temp 97.9 F Temp Source Oral Pulse Oximetry (%) 97 Oxygen Delivery Method room air Intake Visit Reasons: BACK PAIN Chief Complaint: upper back pain Supervisor Mails Required: No Is patient in pain?: Yes [...] past year?: No 10/21/24 0647 Date [place] LUKE Cosigner Signature: Date (if applicable) CC: Normal [facility] Culture, urineOrdered By: Damaris Parrish on 02-04-2024 Bacteria identified Cx Nom (U) Streptococcus mitis/ oralis [facility] Laboratory - Chemistry and C hemistry - challengeon 02-04-2024 Bilirubin Ql (U) Negative [facility] Glucose Ql (U) Negative [facility] Ketones Ql (U) Negative [facility] pH (U) 6.0 [pH] [facility] Specific gravity (U) [Rel density] 1.010 [facility] Urobilinogen (U) [Mass/Vol] Negative [facility] - Hematology and Cell countson 02-04-2024 Hemoglobin Ql (U) Negative [facility] - Specimen inform ationon 02-04-2024 Clarity (U) Clear [facility] Color (U) YELLOW [facility] Laboratory - Urinalysison Nitrite Ql (U) Negative [facility] Protein Ql (U) Negative [facility] No Panel Informationon 02-03 Urine Leukocytes Negatve [facility] Urine Non-Hemolyzed Blood [facility] Absolute lymphocyte countOrd ered By: Carlos Bernal on 03-30-2023 Lymphocytes Auto (Unsp spec) [#/Vol] 0.90 10*3/uL 0.83-4.51 [facility] Basophil percentageOrdered B y: Carlos Bernal on 03-30-2023 Basophils/100 WBC (Bld) 0.5 % 0-1 [facility] Bilirubin [Mass/Vol] 0.30 mg/dL 0.20-1.00 [facility] Comment on above: For patients on eltr ombopag therapy, use of Dimension [place] TBIL is not recommended. Chloride [Moles/Vol] 105 mmol/L 98-107 [facility] Eosinophils/100 WBC (Bld) 1.0 % 0-5 [facility] Glucose [Mass/Vol] 100 mg/dL 74-106 [facility] Comment on above: Fasting Glucose resu lt from 100 to 125 mg/dL suggests IMPAIRED HOMEOSTASIS per A.D.A. criteria. LDH [Catalytic activity/Vol] 287 U/L 84-246 [facility] Neutrophils (Bld) [#/Vol] 2.7 10*3/uL 2.0-7.7 [facility] Neutrophils/100 WBC (Bld) 68.4 % 47-70 [facility] Potassium [Moles/Vol] 4.1 mmol/L 3.5-5.1 [facility] Protein [Mass/Vol] 8.0 g/dL 6.4-8.2 [facility] Sodium [Moles/Vol] 136 mmol/L 136-145 [facility] WBC (Bld) [#/Vol] 3.9 10*3/uL 4.4-11.0 [facility] Blood erythrocytes count (nu mber/volume)Ordered By: Carlos Bernal on 03-30-2023 RBC (Bld) [#/Vol] 3.98 10*6/uL 4.2-5.4 [facility] Blood hemoglobin measurement (mass/volume)Ordered By: Carlos Bernal on 03-30-2023 Hemoglobin (Bld) [Mass/Vol] 11.8 g/dL 12.0-15.0 [facility] Blood lymphocytes/100 leukoc ytesOrdered By: [place] [facility] on 03-30-2023 Lymphocytes/100 WBC (Bld) 23.1 % 19-41 [facility] Blood monocytes/100 leukocyt esOrdered By: [facility] on 03-30-2023 Monocytes/100 WBC (Bld) 6.7 % 0-10 [facility] Blood platelet mean volumeOr dered By: Carlos Bernal on 03-30-2023 Platelet mean volume (Bld) [Entitic vol] 11.3 fL 6.2-12.0 [facility] Determination of erythrocyte mean corpuscular volume (MCV)Ordered By: [facility] on 03-30-2023 MCV (RBC) [Entitic vol] 93.7 fL 81-99 [facility] Hematocrit Auto (Bld) [Volum e fraction]Ordered By: [facility] on 03-30-2023 Hematocrit (Bld) [Volume fraction] 37.3 % 37-47 [facility] Laboratory - Chemistry and C hemistry - challengeOrdered By: [place] [facility] on 03-30-2023 ALP [Catalytic activity/Vol] 62 U/L 45-117 [facility] ALT [Catalytic activity/Vol] 35 U/L 13-56 [facility] CO2 [Moles/Vol] 26.0 mmol/L 21.0-32.0 [facility] Globulin (S) [Mass/Vol] 3.9 g/dL 2.2-4.2 [facility] Urea nitrogen/Creatinine [Mass ratio] 20.2 mg/mg 10-20 [facility] - Hematology and Cell countsOrdered By: [place] [facility] on 03-30-2023 Erythrocyte distribution width (RBC) [Entitic vol] 42.2 fL 35.1-43.9 [facility] Erythrocyte distribution width (RBC) [Ratio] 12.3 % 11.6-14.6 [facility] Immature granulocytes/100 WBC (Bld) 0.300 % 0.0-0.9 [facility] Comment on above: IG% - Immature Granu locytes (promyelocytes, myelocytes and metamyelocytes) > 1% indicates that a LEFT SHIFT is Present. MCH (RBC) [Entitic mass] 29.6 pg 27.0-32.0 [facility] Nucleated RBC/100 WBC (Bld) [Ratio] 0 % 0[facility] [Mass/Vol]Or dered By: Carlos Bernal on 03-30-2023 MCHC (RBC) [Mass/Vol] 31.6 g/dL 32-36 [facility] No Panel InformationOrdered By: Carlos Bernal on 03-30-2023 CA 125 Antigen 21.8 U/mL 0.0-38.1 [facility] Comment on above: [facility] [employer] El ectrochemiluminescence Immunoassay(ECLIA)Values obtained with different assay methods or kits cannotbe used interchangeably. Results cannot be interpreted asabsolute evidence of the presence or absence of malignantdisease.Performed at: [facility] [address] [id number] Director: Guero Smyth PhD, Phone: [phone] Estimated Creatinine Clearance Calc 44.61 ml/min [facility] Estimated GFR (MDRD) Amer 78 mL/min >60 [facility] Comment on above: GFR Calc Estimated GFR (MDRD) Non-Af Amer 64 mL/min >60 [facility] Comment on above: Non- GFR Calc Reactive Lymphocytes RARE [facility] Platelets bldOrdered By: Scot Bernal on 03-30-2023 Platelets (Bld) [#/Vol] 237 10*3/uL 150-450 [facility] Serum or plasma albumin charlene urement (mass/volume)Ordered By: Carlos Bernal on 03-30-2023 Albumin [Mass/Vol] 4.1 g/dL 3.2-5.0 [facility] Serum or plasma albumin/glob ulin mass ratioOrdered By: Carlos Bernal on 03-30-2023 Albumin/Globulin [Mass ratio] 1.1 {ratio} 0.9-2.4 [facility] Serum or plasma calcium charlene urement (mass/volume)Ordered By: Carlos Bernal on 03-30-2023 Calcium [Mass/Vol] 9.8 mg/dL 8.5-10.1 [facility] Serum or plasma creatinine m easurement (mass/volume)Ordered By: Carlos Bernal on 03-30-2023 Creatinine [Mass/Vol] 0.89 mg/dL 0.55-1.02 [facility] Comment on above: The validity of the calculated GFR & GFRAA in patients over 70 years has not been determined. Clinical correlation is essential. Serum or plasma urea nitroge n measurement (mass/volume)Ordered By: Carlos Bernal on 03-30-2023 Urea nitrogen [Mass/Vol] 18 mg/dL 7-18 [facility] Thin prep Papanicolaou smear with manual screeningOrdered By: Carlos Bernal on 03-30-2023 Thin prep Papanicolaou smear with manual screening 33 U/L 15-37 [facility] Thin prep Papanicolaou smear with manual screening 5 5-15 [facility] Absolute lymphocyte countOrd ered By: Dr. Bernal on 03-16-2023 Lymphocytes Auto (Unsp spec) [#/Vol] 0.80 10*3/uL 0.83-4.51 [facility] Basophil percentageOrdered B y: Dr. Bernal on 03-16-2023 Basophils/100 WBC (Bld) 0.8 % 0-1 [facility] Bilirubin [Mass/Vol] 0.40 mg/dL 0.20-1.00 [facility] Comment on above: For patients on eltr ombopag therapy, use of Dimension [place] TBIL is not recommended. Chloride [Moles/Vol] 108 mmol/L 98-107 [facility] Eosinophils/100 WBC (Bld) 1.8 % 0-5 [facility] Glucose [Mass/Vol] 90 mg/dL 74-106 [facility] LDH [Catalytic activity/Vol] 300 U/L 84-246 [facility] Neutrophils (Bld) [#/Vol] 3.6 10*3/uL 2.0-7.7 [facility] Neutrophils/100 WBC (Bld) 72.1 % 47-70 [facility] Potassium [Moles/Vol] 3.3 mmol/L 3.5-5.1 [facility] Protein [Mass/Vol] 8.4 g/dL 6.4-8.2 [facility] Sodium [Moles/Vol] 140 mmol/L 136-145 [facility] WBC (Bld) [#/Vol] 4.9 10*3/uL 4.4-11.0 [facility] Blood erythrocytes count (nu mber/volume)Ordered By: Dr. Bernal on 03-16-2023 RBC (Bld) [#/Vol] 4.04 10*6/uL 4.2-5.4 [facility] Blood hemoglobin measurement (mass/volume)Ordered By: Dr. Bernal on 03-16-2023 Hemoglobin (Bld) [Mass/Vol] 12.0 g/dL 12.0-15.0 [facility] Blood lymphocytes/100 leukoc ytesOrdered By: Dr. Bernal on 03-16-2023 Lymphocytes/100 WBC (Bld) 16.2 % 19-41 [facility] Blood monocytes/100 leukocyt esOrdered By: Dr. Bernal on 03-16-2023 Monocytes/100 WBC (Bld) 8.9 % 0-10 [facility] Blood platelet mean volumeOr dered By: Dr. Bernal on 03-16-2023 Platelet mean volume (Bld) [Entitic vol] 12.9 fL 6.2-12.0 [facility] Determination of erythrocyte mean corpuscular volume (MCV)Ordered By: Dr. Bernal on 03-16-2023 MCV (RBC) [Entitic vol] 95.3 fL 81-99 [facility] Hematocrit Auto (Bld) [Volum e fraction]Ordered By: Dr. Bernal on 03-16-2023 Hematocrit (Bld) [Volume fraction] 38.5 % 37-47 [facility] Laboratory - Chemistry and C hemistry - challengeOrdered By: Dr. Bernal on 03-16-2023 ALP [Catalytic activity/Vol] 61 U/L 45-117 [facility] ALT [Catalytic activity/Vol] 30 U/L 13-56 [facility] CO2 [Moles/Vol] 26.0 mmol/L 21.0-32.0 [facility] Globulin (S) [Mass/Vol] 4.4 g/dL 2.2-4.2 [facility] Urea nitrogen/Creatinine [Mass ratio] 22.6 mg/mg 10-20 [facility] Laboratory - Hematology and Cell countsOrdered By: Dr. Bernal on 03-16-2023 Erythrocyte distribution width (RBC) [Entitic vol] 44.4 fL 35.1-43.9 [facility] Erythrocyte distribution width (RBC) [Ratio] 12.7 % 11.6-14.6 [facility] Immature granulocytes/100 WBC (Bld) 0.200 % 0.0-0.9 [facility] Comment on above: IG% - Immature Granu locytes (promyelocytes, myelocytes and metamyelocytes) > 1% indicates that a LEFT SHIFT is Present. MCH (RBC) [Entitic mass] 29.7 pg 27.0-32.0 [facility] Nucleated RBC/100 WBC (Bld) [Ratio] 0 % 0-5 [facility] MCHC Auto (RBC) [Mass/Vol]Or dered By: Dr. Bernal on 03-16-2023 MCHC (RBC) [Mass/Vol] 31.2 g/dL 32-36 [facility] No Panel InformationOrdered By: Dr. Bernal on 03-16-2023 CA 125 Antigen 21.6 U/mL 0.0-38.1 [facility] Comment on above: [facility] El ectrochemiluminescence Immunoassay(ECLIA)Values obtained with different assay methods or kits cannotbe used interchangeably. Results cannot be interpreted asabsolute evidence of the presence or absence of malignantdisease.Performed at: [facility] [id number] Director: Guero Smyth PhD, Phone: [phone] Estimated GFR (MDRD) Amer 89 mL/min >60 [facility] Comment on above: GFR Calc Estimated GFR (MDRD) Non-Af Amer 73 mL/min >60 [facility] Comment on above: Non- GFR Calc Platelets bldOrdered By: Dr. Bernal on 03-16-2023 Platelets (Bld) [#/Vol] 216 10*3/uL 150-450 [facility] Serum or plasma albumin charlene urement (mass/volume)Ordered By: Dr. Bernal on 03-16-2023 Albumin [Mass/Vol] 4.0 g/dL 3.2-5.0 [facility] Serum or plasma albumin/glob ulin mass ratioOrdered By: Dr. Bernal on 03-16-2023 Albumin/Globulin [Mass ratio] 0.9 {ratio} 0.9-2.4 [facility] Serum or plasma calcium charlene urement (mass/volume)Ordered By: Dr. Bernal on 03-16-2023 Calcium [Mass/Vol] 9.9 mg/dL 8.5-10.1 [facility] Serum or plasma creatinine m easurement (mass/volume)Ordered By: Dr. Bernal on 03-16-2023 Creatinine [Mass/Vol] 0.80 mg/dL 0.55-1.02 [facility] Comment on above: The validity of the calculated GFR & GFRAA in patients over 70 years has not been determined. Clinical correlation is essential. Serum or plasma urea nitroge n measurement (mass/volume)Ordered By: Dr. Bernal on 03-16-2023 Urea nitrogen [Mass/Vol] 18 mg/dL 7-18 [facility] Thin prep Papanicolaou smear with manual screeningOrdered By: Dr. Bernal on 03-16-2023 Thin prep Papanicolaou smear with manual screening 31 U/L 15-37 [facility] Thin prep Papanicolaou smear with manual screening 6 5-15 [facility] Absolute lymphocyte counton 06-05-2022 Lymphocytes Auto (Unsp spec) [#/Vol] 1.18 10*3/uL 0.83-4.51 [facility] Work Phone: [phone] Basophil percentageon 2021 Basophil percentage 0 SEEN /hpf 0-5 [facility] Work Phone: Basophils/100 WBC (Bld) 0.4 % 0-1 [facility] Work Phone: Bilirubin [Mass/Vol] 0.70 mg/dL 0.20-1.00 [facility] Work Phone: Comment on above: For patients on eltr ombopag therapy, use of Dimension [place] TBIL is not recommended. Chloride [Moles/Vol] 108 mmol/L 98-107 [facility] Work Phone: Eosinophils/100 WBC (Bld) 1.5 % 0-5 [facility] Work Phone: Glucose [Mass/Vol] 113 mg/dL 74-106 [facility] Work Phone: [phone] Comment on above: Fasting Glucose resu lt from 100 to 125 mg/dL suggests IMPAIRED HOMEOSTASIS per A.D.A. criteria. Lactate [Moles/Vol] 1.6 mmol/L 0.4-2.0 [facility] Work Phone: Neutrophils (Bld) [#/Vol] 3.1 10*3/uL 2.0-7.7 [facility] Work Phone: [phone] Neutrophils/100 WBC (Bld) 65.7 % 47-70 [facility] Work Phone: Potassium [Moles/Vol] 3.3 mmol/L 3.5-5.1 [facility] Work Phone: [phone] Protein [Mass/Vol] 7.6 g/dL 6.4-8.2 [facility] Work Phone: Sodium [Moles/Vol] 141 mmol/L 136-145 [facility] Work Phone: WBC (Bld) [#/Vol] 4.8 10*3/uL 4.4-11.0 [facility] Work Phone: Bilirubin Test strip Ql (U)o n 06-05-2022 Bilirubin Ql (U) Negative Negative [facility] Work Phone: Blood erythrocytes count (nu mber/volume)on 06-05-2022 RBC (Bld) [#/Vol] 4.09 10*6/uL 4.2-5.4 [facility] Work Phone: Blood hemoglobin measurement (mass/volume)on 06-05-2022 Hemoglobin (Bld) [Mass/Vol] 12.3 g/dL 12.0-15.0 [facility] Work Phone: Blood lymphocytes/100 leukoc yteson 06-05-2022 Lymphocytes/100 WBC (Bld) 24.8 % 19-41 [facility] Work Phone: Blood monocytes/100 leukocyt eson 06-05-2022 Monocytes/100 WBC (Bld) 7.6 % 0-10 [facility] Work Phone: Blood platelet mean volumeon 06-05-2022 Platelet mean volume (Bld) [Entitic vol] 11.6 fL 6.2-12.0 [facility] Work Phone: Determination of erythrocyte mean corpuscular volume (MCV)on 06-05-2022 MCV (RBC) [Entitic vol] 91.2 fL 81-99 [facility] Work Phone: Hematocrit Auto (Bld) [Volum e fraction]on 06-05-2022 Hematocrit (Bld) [Volume fraction] 37.3 % 37-47 [facility] Work Phone: INR in Blood by Coagulation assayon 06-05-2022 INR Coag (Bld) [Relative time] 1.0 {INR} [facility] Work Phone: Ketones Test strip Ql (U)on 06-05-2022 Ketones Ql (U) 5 mg/dl Negative [facility] Work Phone: Laboratory - Chemistry and C hemistry - challengeon 06-05-2022 ALP [Catalytic activity/Vol] 72 U/L 45-117 [facility] Work Phone: ALT [Catalytic activity/Vol] 24 U/L 13-56 [facility] Work Phone: CO2 [Moles/Vol] 24.0 mmol/L 21.0-32.0 [facility] Work Phone: Globulin (S) [Mass/Vol] 3.4 g/dL 2.2-4.2 [facility] Work Phone: Urea nitrogen/Creatinine [Mass ratio] 13.2 mg/mg 10-20 [facility] Work Phone: Laboratory - Coagulationon 0 06-05-2022 aPTT Coag (Bld) [Time] 24.3 s 24.1-36.2 [facility] Work Phone: PT Coag (PPP) [Time] 12.7 s 11.7-14.9 [facility] Work Phone: Laboratory - Hematology and Cell countson 06-05-2022 Erythrocyte distribution width (RBC) [Entitic vol] 39.8 fL 35.1-43.9 [facility] Work Phone: Erythrocyte distribution width (RBC) [Ratio] 11.9 % 11.6-14.6 [facility] Work Phone: Immature granulocytes/100 WBC (Bld) 0.000 % 0.0-0.9 [facility] Work Phone: Comment on above: IG% - Immature Granu locytes (promyelocytes, myelocytes and metamyelocytes) > 1% indicates that a LEFT SHIFT is Present. MCH (RBC) [Entitic mass] 30.1 pg 27.0-32.0 [facility] Work Phone: Nucleated RBC/100 WBC (Bld) [Ratio] 0 % 0-5 [facility] Work Phone: MCHC Auto (RBC) [Mass/Vol]on 06-05-2022 MCHC (RBC) [Mass/Vol] 33.0 g/dL 32-36 [facility] Work Phone: Mucus LM Ql (Urine sed)on Mucus Ql (Urine sed) 0 SEEN /hpf [facility] Work Phone: Nitrite Test strip Ql (U)on 06-05-2022 Nitrite Ql (U) Negative Negative [facility] Work Phone: No Panel Informationon 06-05 Estimated Creatinine Clearance Calc 47.26 ml/min [facility] Work Phone: Estimated GFR (MDRD) Amer 84 mL/min >60 [facility] Work Phone: Comment on above: GFR Calc Estimated GFR (MDRD) Non-Af Amer 70 mL/min >60 [facility] Work Phone: Comment on above: Non- GFR Calc Troponin I High Sensitivity 7 pg/mL 3.0-54.0 [facility] Work Phone: Comment on above: Please Note: New Neelima t Units and Gender Specific Reference Ranges. For more information see Policy Stat Procedure [place] High Sensitivity Troponin (TNIH) and attachments. Platelets bldon 06-05-2022 Platelets (Bld) [#/Vol] 228 10*3/uL 150-450 [facility] Work Phone: Protein Test strip Ql (U)on 06-05-2022 Protein Ql (U) Negative Negative [facility] Work Phone: Serum or plasma albumin charlene urement (mass/volume)on 06-05-2022 Albumin [Mass/Vol] 4.2 g/dL 3.2-5.0 [facility] Work Phone: Serum or plasma albumin/glob ulin mass ratioon 06-05-2022 Albumin/Globulin [Mass ratio] 1.2 {ratio} 0.9-2.4 [facility] Work Phone: Serum or plasma calcium charlene urement (mass/volume)on 06-05-2022 Calcium [Mass/Vol] 9.5 mg/dL 8.5-10.1 [facility] Work Phone: Serum or plasma creatinine m easurement (mass/volume)on 06-05-2022 Creatinine [Mass/Vol] 0.84 mg/dL 0.55-1.02 [facility] Work Phone: Comment on above: The validity of the calculated GFR & GFRAA in patients over 70 years has not been determined. Clinical correlation is essential. Serum or plasma urea nitroge n measurement (mass/volume)on 06-05-2022 Urea nitrogen [Mass/Vol] 11 mg/dL 7-18 [facility] Work Phone: Squamous epithelial cells de tection in urine sediment by light microscopyon 06-05-2022 Epithelial cells.squamous LM Ql (Urine sed) 0 SEEN /hpf 5-10 [facility] Work Phone: Thin prep Papanicolaou smear with manual screeningon 06-05-2022 Thin prep Papanicolaou smear with manual screening 24 U/L 15-37 [facility] Work Phone: Thin prep Papanicolaou smear with manual screening 9 5-15 [facility] Work Phone: Urine blood detectionon - RBC Ql (U) Negative Negative [facility] Work Phone: RBC Ql (U) 0 SEEN /hpf 0-5 [facility] Work Phone: Urine clarityon 06-05-2022 Clarity (U) Clear Clear [facility] Work Phone: Urine color determinationon 06-05-2022 Color (U) Yellow Yellow [facility] Work Phone: Urine glucose detectionon Glucose Ql (U) Normal mg/dl Normal [facility] Work Phone: Urine leukocyte esterase det ection by dipstickon 06-05-2022 Leukocyte esterase Test strip Ql (U) 25 /ul Negative [facility] Work Phone: Urine pHon 06-05-2022 pH (U) 8.0 [pH] 5.0 - 8.0 [facility] Work Phone: Urine sediment bacteria coun t by microscopy (number/high power field)on 06-05-2022 Bacteria LM.HPF (Urine sed) [#/Area] 0 /[HPF] None Seen [facility] Work Phone: Urine specific gravity measu rementon 06-05-2022 Specific gravity (U) [Rel density] 1.015 1.002-1.030 [facility] Work Phone: Urobilinogen Auto test strip Ql (U)on 06-05-2022 Urobilinogen Ql (U) Normal mg/dl Normal [facility] Work Phone: Absolute lymphocyte counton 03-12-2022 Lymphocytes Auto (Unsp spec) [#/Vol] 0.97 10*3/uL 0.83-4.51 [facility] Work Phone: Basophil percentageon 2021 Basophils/100 WBC (Bld) 1.1 % 0-1 [facility] Work Phone: Bilirubin [Mass/Vol] 0.40 mg/dL 0.20-1.00 [facility] Work Phone: Comment on above: For patients on eltr ombopag therapy, use of Dimension [place] TBIL is not recommended. Chloride [Moles/Vol] 108 mmol/L 98-107 [facility] Work Phone: Eosinophils/100 WBC (Bld) 2.9 % 0-5 [facility] Work Phone: Glucose [Mass/Vol] 116 mg/dL 74-106 [facility] Work Phone: Comment on above: Fasting Glucose resu lt from 100 to 125 mg/dL suggests IMPAIRED HOMEOSTASIS per A.D.A. criteria. Neutrophils (Bld) [#/Vol] 2.3 10*3/uL 2.0-7.7 [facility] Work Phone: Neutrophils/100 WBC (Bld) 60.7 % 47-70 [facility] Work Phone: Potassium [Moles/Vol] 3.7 mmol/L 3.5-5.1 [facility] Work Phone: Protein [Mass/Vol] 7.2 g/dL 6.4-8.2 [facility] Work Phone: [phone] Sodium [Moles/Vol] 140 mmol/L 136-145 [facility] Work Phone: [phone] WBC (Bld) [#/Vol] 3.8 10*3/uL 4.4-11.0 [facility] Work Phone: [phone] Blood erythrocytes count (nu mber/volume)on 03-12-2022 RBC (Bld) [#/Vol] 3.65 10*6/uL 4.2-5.4 [facility] Work Phone: Blood hemoglobin measurement (mass/volume)on 03-12-2022 Hemoglobin (Bld) [Mass/Vol] 11.0 g/dL 12.0-15.0 [facility] Work Phone: Blood lymphocytes/100 leukoc yteson 03-12-2022 Lymphocytes/100 WBC (Bld) 25.5 % 19-41 [facility] Work Phone: [phone] Blood monocytes/100 leukocyt eson 03-12-2022 Monocytes/100 WBC (Bld) 9.5 % 0-10 [facility] Work Phone: Blood platelet mean volumeon 03-12-2022 Platelet mean volume (Bld) [Entitic vol] 11.0 fL 6.2-12.0 [facility] Work Phone: Determination of erythrocyte mean corpuscular volume (MCV)on 03-12-2022 MCV (RBC) [Entitic vol] 92.6 fL 81-99 [facility] Work Phone: Hematocrit Auto (Bld) [Volum e fraction]on 03-12-2022 Hematocrit (Bld) [Volume fraction] 33.8 % 37-47 [facility] Work Phone: Laboratory - Chemistry and C hemistry - challengeon 03-12-2022 ALP [Catalytic activity/Vol] 84 U/L 45-117 [facility] Work Phone: ALT [Catalytic activity/Vol] 31 U/L 13-56 [facility] Work Phone: CO2 [Moles/Vol] 25.0 mmol/L 21.0-32.0 [facility] Work Phone: Globulin (S) [Mass/Vol] 3.5 g/dL 2.2-4.2 [facility] Work Phone: Urea nitrogen/Creatinine [Mass ratio] 15.7 mg/mg 10-20 [facility] Work Phone: Laboratory - Hematology and Cell countson 03-12-2022 Erythrocyte distribution width (RBC) [Entitic vol] 41.8 fL 35.1-43.9 [facility] Work Phone: Erythrocyte distribution width (RBC) [Ratio] 12.2 % 11.6-14.6 [facility] Work Phone: Immature granulocytes/100 WBC (Bld) 0.300 % 0.0-0.9 [facility] Work Phone: Comment on above: IG% - Immature Granu locytes (promyelocytes, myelocytes and metamyelocytes) > 1% indicates that a LEFT SHIFT is Present. MCH (RBC) [Entitic mass] 30.1 pg 27.0-32.0 [facility] Work Phone: Nucleated RBC/100 WBC (Bld) [Ratio] 0 % 0-5 [facility] Work Phone: MCHC Auto (RBC) [Mass/Vol]on 03-12-2022 MCHC (RBC) [Mass/Vol] 32.5 g/dL 32-36 [facility] Work Phone: No Panel Informationon 03-12 CA 125 Antigen 13.5 U/mL 0.0-38.1 [facility] Work Phone: Comment on above: [facility] El ectrochemiluminescence Immunoassay(ECLIA)Values obtained with different assay methods or kits cannotbe used interchangeably. Results cannot be interpreted asabsolute evidence of the presence or absence of malignantdisease.Performed at: [address] [id number] Director: Guero Smyth PhD, Phone: [phone] Estimated Creatinine Clearance Calc 48.64 ml/min [facility] Work Phone: Estimated GFR (MDRD) Amer 85 mL/min >60 [facility] Work Phone: Comment on above: GFR Calc Estimated GFR (MDRD) Non-Af Amer 71 mL/min >60 [facility] Work Phone: Comment on above: Non- GFR Calc Platelets bldon 03-12-2022 Platelets (Bld) [#/Vol] 212 10*3/uL 150-450 [facility] Work Phone: Serum or plasma albumin charlene urement (mass/volume)on 03-12-2022 Albumin [Mass/Vol] 3.7 g/dL 3.2-5.0 [facility] Work Phone: Serum or plasma albumin/glob ulin mass ratioon 03-12-2022 Albumin/Globulin [Mass ratio] 1.1 {ratio} 0.9-2.4 [facility] Work Phone: Serum or plasma calcium charlene urement (mass/volume)on 03-12-2022 Calcium [Mass/Vol] 9.5 mg/dL 8.5-10.1 [facility] Work Phone: Serum or plasma creatinine m easurement (mass/volume)on 03-12-2022 Creatinine [Mass/Vol] 0.83 mg/dL 0.55-1.02 [facility] Work Phone: Comment on above: The validity of the calculated GFR & GFRAA in patients over 70 years has not been determined. Clinical correlation is essential. Serum or plasma urea nitroge n measurement (mass/volume)on 03-12-2022 Urea nitrogen [Mass/Vol] 13 mg/dL 7-18 [facility] Work Phone: Thin prep Papanicolaou smear with manual screeningon 03-12-2022 Thin prep Papanicolaou smear with manual screening 23 U/L 15-37 [facility] Work Phone: Thin prep Papanicolaou smear with manual screening 7 5-15 [facility] Work Phone: Thin prep Papanicolaou smear with manual screening 251 U/L 84-246 [facility] Work Phone: CNOVon 10-08-2021 CNOV Office Visit (UCWSTR ) -- LUZ CLANCY ([id number]) 1940 F Date Time Provider Department 10/08/21 7:30 AM SEBLE VANN During your visit today, we recorded the following information about you: Temperature Pulse Respiration Blood pressure 96.7 degrees 88/minute 16/minute 182/94 Weight 58.1 kg Seble Vann APRN.CNP 10/08/2021 8:25 AM Signed This note was created using [employer]aven[employer]riter. Subjective Luz Clancy is a 81 year [...] history is provided by the patient. No foreign language interpreter was used. Illness The current episode started [...] Laterality Date - COLONOSCOP W/ OR W/O [facility] SPEC 06/17/2006 Colonoscopy - COLONOSCOP W/ OR W/O [facility] SPEC 07/15/11 - COLONOSCOP W/ OR W/O [facility] SPEC 07/17/16 Colonoscopy (needs MAC next [...] Pulses: No (more content not included)... Normal [facility] COVID w FLU A+B Routon 10-08 Influenza A PCR Negative Normal [facility] Comment on above: Performed By: #### C OVFLU #### [place] [address] Influenza B PCR Negative Normal [facility] Comment on above: Performed By: #### C OVFLU #### [place] [address] SARS-CoV-2 (COVID-19) RNA NAKUL+probe Ql (Unsp spec) UPPER RESPIRATORY TRACT SWAB Normal [facility] Comment on above: Performed By: #### C OVFLU #### [place] [address] SARS-CoV-2 (COVID-19) RNA NAKUL+probe Ql (Unsp spec) Negative for COVID19 (SARS CoV2) by RT-PCR or equivalent method. Normal Negative for COVID19 (SARS CoV2) by RT-PCR or equivalent method. [facility] Comment on above: Result Comment: This test was developed and its performance characteristics determined by [facility] [place]. This test has been authorized by FDA under an Emergency Use Authorization (EUA). This test has been validated in accordance with the FDA's Guidance Document Policy for Diagnostics Testing in Laboratories Certified to Perform High Complexity Testing under CLIA prior to Emergency use Authorization for Coronavirus Disease 2019 during the Public Health Emergency issued on December 10, 2019. Test performed by [facility], [facility] [place], [facility] [place], [place] [address]. Performed By: #### C OVFLU #### [facility] [place] [id number] Erythrocyte distribution wid th standard deviationon 03-16-2019 Erythrocyte distribution width (RBC) [Entitic vol] 40.4 fL 35.1-43.9 [facility] Laboratory - Hematology and Cell countson 03-16-2019 Erythrocyte distribution width (RBC) [Ratio] 12.1 % 11.6-14.6 [facility] Total cell counton 9 Cells counted [employer] (Bld/Tiss) [#] Not Reportable [facility] Laboratory - Coagulationon 10-24-2016 aPTT Coag (Bld) [Time] 25.9 s 24.1-36.2 [facility] INR Coag (Bld) [Relative time] 0.9 {INR} [facility] PT Coag (PPP) [Time] 11.4 s Low 11.7-14.9 [facility] Lab Report: CBC W/Diff, Auto matedon 02-11-2017 Basophils/100 leukocytes 0.7 % Invalid Interpretation Code 0-1 [facility] Work Phone: Eosinophils/100 leukocytes 2.1 % Invalid Interpretation Code 0-5 [facility] Work Phone: Erythrocytes (RBC) 4.35 10*6/uL Invalid Interpretation Code 4.2-5.4 [facility] Work Phone: Hematocrit (HCT) 42.1 % Invalid Interpretation Code 37-47 [facility] Work Phone: Hemoglobin (HGB) 13.5 g/dL Invalid Interpretation Code 12.0-15.0 [facility] Work Phone: immature granulocytes, percentage of total cells, blood 0.000 % Invalid Interpretation Code 0.0-0.9 [facility] Work Phone: Lymphocytes 1.03 X10 3/UL Invalid Interpretation Code 0.83-4.51 [facility] Work Phone: Lymphocytes/100 leukocytes 23.5 % Invalid Interpretation Code 19-41 [facility] Work Phone: MCH 31.0 pg Invalid Interpretation Code 27.0-32.0 [facility] Work Phone: MCHC 32.1 G/GL Invalid Interpretation Code 32-36 [facility] Work Phone: MCV 96.8 fL Invalid Interpretation Code 81-99 [facility] Work Phone: Monocytes/100 leukocytes 9.6 % Invalid Interpretation Code 0-10 [facility] Work Phone: neutrophil count, blood 2.8 X10 3/UL Invalid Interpretation Code 2.0-7.7 [facility] Work Phone: Neutrophils/100 leukocytes 64.1 % Invalid Interpretation Code 47-70 [facility] Work Phone: Platelets 249 10*3/mm3 Invalid Interpretation Code 150-450 [facility] Work Phone: PMV by Kandis 11.0 fL Invalid Interpretation Code 6.2-12.0 [facility] Work Phone: RDW-CA 12.4 % Invalid Interpretation Code 11.6-14.6 [facility] Work Phone: red blood cell distribution width, size density 44.0 fL High 35.1-43.9 [facility] Work Phone: WBC (Leukocytes) 4.4 10*3/uL Invalid Interpretation Code 4.4-11.0 [facility] Work Phone: Lab Report: [facility] 02-11-2017 Alanine aminotransferase (ALT) 30 U/L Invalid Interpretation Code 12-78 [facility] Work Phone: Albumin 4.6 g/dL Invalid Interpretation Code 3.4-5.0 [facility] Work Phone: Albumin/Globulin Ratio 1.1 {ratio} Invalid Interpretation Code 0.9-2.4 [facility] Work Phone: Alkaline phosphatase (ALP) 73 U/L Invalid Interpretation Code 45-117 [facility] Work Phone: Anion gap 10 mmol/L Invalid Interpretation Code 5-15 [email or web address] Work Phone: Aspartate aminotransferase (AST) 23 U/L Invalid Interpretation Code 15-37 [email or web address] Work Phone: Bilirubin (total) 0.40 mg/dL Invalid Interpretation Code 0.20-1.00 [employer] Work Phone: BUN/Creatinine Ratio 19.1 RATIO Invalid Interpretation Code 10-20 [email or web address] Work Phone: Calcium 9.4 mg/dL Invalid Interpretation Code 8.5-10.1 [email or web address] Work Phone: Chloride 103 mmol/L Invalid Interpretation Code 98-107 [employer] Work Phone: CO2 26.0 mmol/L Invalid Interpretation Code 21.0-32.0 [employer] Work Phone: Creatinine 0.84 mg/dL Invalid Interpretation Code 0.55-1.02 [employer] Work Phone: eGFR (non-black) 85 mL/min/{1.73_m2} Invalid Interpretation Code >60 [email or web address] Work Phone: eGFR (non-black) 70 mL/min/{1.73_m2} Invalid Interpretation Code >60 [employer] Work Phone: Globulin 4.1 g/dL High 2.3-3.5 [employer] Work Phone: Glucose 89 mg/dL Invalid Interpretation Code 70-110 [email or web address] Work Phone: Potassium 3.7 mmol/L Invalid Interpretation Code 3.5-5.1 [email or web address] Work Phone: Protein 8.7 g/dL High 6.4-8.2 [employer] Work Phone: Sodium 139 mmol/L Invalid Interpretation Code 136-145 [email or web address] Work Phone: Urea nitrogen 16 mg/dL Invalid Interpretation Code 7-18 [email or web address] Work Phone: Lab Report: [facility] 05-03-2017 lactate dehydrogenase - serum 285 U/L High 84-246 [email or web address] Work Phone: Lab Report: Magnesiumon Magnesium 2.5 mg/dL High 1.8-2.4 [email or web address] Work Phone: Lab Report: Uric Acidon Urate 3.7 mg/dL Invalid Interpretation Code 2.6-6.0 [email or web address] Work Phone: Office Visit: 6 mo f/u - PHQ 9 Completeon 08-14-2016 Adolescent depression screening assessment Adolescent depression screening assessment Invalid Interpretation Code [employer] Work Phone: Adult depression screening assessment Adult depression screening assessment Invalid Interpretation Code [employer] Work Phone: Documentation of current medications (procedure) Done Invalid Interpretation Code [employer] Work Phone: Tobacco smoking status NHIS Never Invalid Interpretation Code [facility] Work Phone: Tobacco use CPHS Never smoker Invalid Interpretation Code [email or web address] Work Phone: Office Visit: 6 mo f/u - PHQ 9 Completeon 07-16-2016 Colonoscopy (procedure) Colonoscopy (procedure) Invalid Interpretation Code [employer] Work Phone: Office Visit: 6 mo f/u - PHQ 9 [facility] 10-15-2015 Breast Mammogram screening Normal Bilateral Invalid Interpretation Code [employer] Work Phone: Lab Report: Cancer Antigen 1 25on 07-27-2015 cancer 125 antigen 11.2 U/mL Invalid Interpretation Code 0.0-34.0 [employer] Work Phone: Lab Report: CBC W/Diff, Auto - EPLAB Onlyon 02-15-2015 Absolute Neutrophil count 1.5 X10 3/UL Low 2.0-7.7 [employer] Work Phone: Lab Report: Comprehensive Me tabolic Profilon 11-14-2014 GE use only - for [employer] import when terms are not otherwise specified 66 U/L Invalid Interpretation Code 50-136 [employer] Work Phone: Lab Report: LDHon 11-14-2014 Lactate dehydrogenase (LDH) 188 U/L Invalid Interpretation Code 87-241 [facility] Work Phone: Lab Report: Thyroid Stim Hor salvador (TSH)on 11-14-2014 Thyroid stimulating hormone (TSH) 4.78 u[iU]/mL Critically high 0.358-3.74 [facility] Work Phone: Lab Report: B12on 01-16-2014 vitamin b12, serum 424 pg/mL Normal 211-911 [facility] Work Phone: Lab Report: FOLon 01-16-2014 Folate 55.10 ng/mL High 3.1-17.5 [facility] Work Phone: Lab Report: LIVERon 01-17-20 14 Bilirubin (direct) 0.08 mg/dL Normal 0.00-0.30 [facility] Work Phone: Office Visit: 6 mo f/u - PHQ 9 Completeon 08-12-2006 General categories [interpretation] of Cervical or vaginal smear or scraping by Cyto stain Normal Invalid Interpretation Code [facility] Work Phone: Culture, urine Bacteria identified Cx Nom (U) Positive [facility] Work Phone: Laboratory - Microbiology an d Antimicrobial susceptibility Bacteria identified Cx Nom (Bld) No growth in 5 days. [facility] Work Phone: Vital Signs Date Time Vital Sign Value Performing Clinician Arsenio wilcox 06-08-2025 10:24-040 Body height 165.1 cm [facility] TEST BAKER-C Work Phone: [facility] 06-08-2025 10:24-0400 Body mass index (BMI) [Ratio] 20.7 kg/m2 [facility] Work Phone: [facility] 06-08-2025 10:24-040 Body temperature 98.2 [degF] [facility] TEST BAKER-C Work Phone: [facility] 06-08-2025 10:24-0400 Body weight 56.35 kg Lela Jaydon TEST BAKER-C Work Phone: [facility] 06-08-2025 10:24-0400 Diastolic blood pressure 83 mm[Hg] Lela Jaydon TEST BAKER-C Work Phone: [facility] 06-08-2025 10:24-0400 Heart rate 80 /min Lela Jaydon TEST BAKER-C Work Phone: [facility] 06-08-2025 10:24-0400 Respiratory rate 18 /min Lela Jaydon TEST BAKER-C Work Phone: [facility] 06-08-2025 10:24-0400 SaO2% (BldA) [Mass fraction] 100 % Lela Jaydon TEST BAKER-C Work Phone: [facility] 06-08-2025 10:24-0400 Systolic blood pressure 160 mm[Hg] Lela Jaydon TEST BAKER-C Work Phone: [facility] 06-05-2025 14:52-0400 Body height 165.[address] Paola Corona MD Work Phone: [facility] 06-05-2025 14:52-0400 Body mass index (BMI) [Ratio] 20.7 kg/m2 Dr. Paola Corona MD Work Phone: [facility] 06-05-2025 14:52-0400 Body temperature 97.9 [degF] Dr. Paola Corona MD Work Phone: [facility] 06-05-2025 14:52-0400 Body weight 56.[address] Paola Corona MD Work Phone: [facility] 06-05-2025 14:52-0400 Diastolic blood pressure 97 mm[Hg] Dr. Paola Corona MD Work Phone: [facility] 06-05-2025 14:52-0400 Heart rate 83 /min Dr. Paola Corona MD Work Phone: [facility] 06-05-2025 14:52-0400 Respiratory rate 18 /min Dr. Paola Corona MD Work Phone: [facility] 06-05-2025 14:52-0400 SaO2% (BldA) [Mass fraction] 99 % Dr. Paola Corona MD Work Phone: [facility] 06-05-2025 14:52-0400 Systolic blood pressure 179 mm[Hg] Dr. Paola Corona MD Work Phone: 1(180)412-955328 [place] [address] 05-22-2025 16:18-0400 Body temperature 98.1 [degF] Dr. Paola Corona MD Work Phone: 6(415)055-437928 [place] [address] 05-22-2025 16:18-0400 Diastolic blood pressure 58 mm[Hg] Dr. Paola Corona MD Work Phone: 5(177)873-947528 [place] [address] 05-22-2025 16:18-0400 Heart rate 80 /min Dr. Paola Corona MD Work Phone: 0(878)844-666728 [place] [address] 05-22-2025 16:18-0400 Respiratory rate 16 /min Dr. Paola Corona MD Work Phone: 6(859)107-143628 [place] [address] 05-22-2025 16:18-0400 SaO2% (BldA) [Mass fraction] 99 % Dr. Paola Corona MD Work Phone: 7(638)091-139628 [place] [address] 05-22-2025 16:18-0400 Systolic blood pressure 114 mm[Hg] Dr. Paola Corona MD Work Phone: 4(390)867-897144 [place] [address] 05-22-2025 09:14-0400 Body height 165.[address] Paola Corona MD Work Phone: 9(696)296-673228 [place] [address] 05-22-2025 09:14-0400 Body weight 56.[address] Paola Corona MD Work Phone: 3(383)849-035328 [place] [address] 05-22-2025 01:26-0400 Body mass index (BMI) [Ratio] 20.7 kg/m2 Dr. Paola Corona MD Work Phone: 9(979)905-370428 [place] [address] 05-19-2025 09:43-0400 Heart rate 80 /min Dr. Paola Corona MD Work Phone: 6(265)559-583744 [place] [address] 05-19-2025 07:41-0400 Body temperature 99.1 [degF] Dr. Paola Corona MD Work Phone: [facility] 05-19-2025 07:41-0400 Diastolic blood pressure 83 mm[Hg] Dr. Paola Corona MD Work Phone: 1(989)026-164323 [address] 05-19-2025 07:41-0400 Respiratory rate 17 /min Dr. Paola Corona MD Work Phone: 4(522)099-126328 [place] [address] 05-19-2025 07:41-0400 SaO2% (BldA) [Mass fraction] 98 % Dr. Paola Corona MD Work Phone: 4(406)808-324028 [place] [address] 05-19-2025 07:41-0400 Systolic blood pressure 162 mm[Hg] Dr. Paola Corona MD Work Phone: 5(460)352-201928 [place] [address] 05-19-2025 05:13-0400 Body mass index (BMI) [Ratio] 21.1 kg/m2 Dr. Paola Corona MD Work Phone: 3(115)781-189928 [place] [address] 05-19-2025 05:13-0400 Body weight 57.[address] Paola Corona MD Work Phone: 6(742)101-925328 [place] [address] 05-18-2025 22:52-0400 Body height 165.[address] Paola Corona MD Work Phone: 5(694)819-444428 [place] [address] 05-18-2025 22:19-0400 Body temperature 98.6 [degF] Dr. Paola Corona MD Work Phone: 1(724)601-979528 [place] [address] 05-18-2025 22:19-0400 Diastolic blood pressure 102 mm[Hg] Dr. Paola Corona MD Work Phone: 8(045)518-311723 [address] 05-18-2025 22:19-0400 Heart rate 124 /min Dr. Paola Corona MD Work Phone: 6(304)973-314723 [address] 05-18-2025 22:19-0400 Respiratory rate 18 /min Dr. Paola Corona MD Work Phone: 1(000)892-977128 [place] [address] 05-18-2025 22:19-0400 SaO2% (BldA) [Mass fraction] 100 % Dr. Paola Corona MD Work Phone: 1(892)765-855028 [place] [address] 05-18-2025 22:19-0400 Systolic blood pressure 159 mm[Hg] Dr. Paola Corona MD Work Phone: 9(881)507-357328 [place] [address] 05-18-2025 17:46-0400 Body height 165.[address] Paola Corona MD Work Phone: 3(742)923-821028 [place] [address] 05-18-2025 17:46-0400 Body mass index (BMI) [Ratio] 21.3 kg/m2 Dr. Paola Corona MD Work Phone: 0(888)544-062528 [place] [address] 05-18-2025 17:46-0400 Body weight 58.[address] Paola Corona MD Work Phone: 8(191)812-515028 [place] [address] 05-16-2025 08:46-0400 Body mass index (BMI) [Ratio] 20.7 kg/m2 Dr. Paola Corona MD Work Phone: 5(140)164-042828 [place] [address] 05-16-2025 08:46-0400 Body weight 56.[address] Paola Corona MD Work Phone: 0(068)553-054328 [place] [address] 05-16-2025 08:46-0400 Diastolic blood pressure 96 mm[Hg] Dr. Paola Corona MD Work Phone: 2(726)870-910828 [place] [address] 05-16-2025 08:46-0400 Heart rate 80 /min Dr. Paola Corona MD Work Phone: 6(584)790-152628 [place] [address] 05-16-2025 08:46-0400 Respiratory rate 18 /min Dr. Paola Corona MD Work Phone: 8(876)603-196428 [place] [address] 05-16-2025 08:46-0400 SaO2% (BldA) [Mass fraction] 98 % Dr. Paola Corona MD Work Phone: [facility] 05-16-2025 08:46-0400 Systolic blood pressure 167 mm[Hg] Dr. Paola Corona MD Work Phone: 7(611)618-329128 [place] [address] 05-10-2025 13:11-0400 Diastolic blood pressure 63 mm[Hg] Dr. Paola Corona MD Work Phone: 3(567)598-115528 [place] [address] 05-10-2025 13:11-0400 Heart rate 72 /min Dr. Paola Corona MD Work Phone: 2(197)597-193223 [address] 05-10-2025 13:11-0400 Respiratory rate 18 /min Dr. Paola Corona MD Work Phone: 0(273)220-789328 [place] [address] 05-10-2025 13:11-0400 SaO2% (BldA) [Mass fraction] 100 % Dr. Paola Corona MD Work Phone: 2(430)802-026028 [place] [address] 05-10-2025 13:11-0400 Systolic blood pressure 123 mm[Hg] Dr. Paola Corona MD Work Phone: 0(305)633-856828 [place] [address] 05-10-2025 08:17-0400 Body height 165.[address] Paola Corona MD Work Phone: 7(032)918-938328 [place] [address] 05-10-2025 08:17-0400 Body mass index (BMI) [Ratio] 20.5 kg/m2 Dr. Paola Corona MD Work Phone: 4(768)114-211528 [place] [address] 05-10-2025 08:17-0400 Body temperature 98.6 [degF] Dr. Paola Corona MD Work Phone: 5(466)032-284828 [place] [address] 05-10-2025 08:17-0400 Body weight 55.[address] Paola Corona MD Work Phone: 5(265)274-574528 [place] [address] 04-24-2025 15:53-0400 Body height 165.[address] Paola Corona MD Work Phone: 1(879)577-766628 [place] [address] 04-24-2025 15:53-0400 Body mass index (BMI) [Ratio] 20.9 kg/m2 Dr. Paola Corona MD Work Phone: [facility] 04-24-2025 15:53-0400 Body temperature 98.8 [degF] Dr. Paola Corona MD Work Phone: [facility] 04-24-2025 15:53-0400 Body weight 57.[address] Paola Corona MD Work Phone: [facility] 04-24-2025 15:53-0400 Diastolic blood pressure 81 mm[Hg] Dr. Paola Corona MD Work Phone: 6(130)690-898244 [place] [address] 04-24-2025 15:53-0400 Heart rate 75 /min Dr. Paola Corona MD Work Phone: 6(288)117-574144 [place] [address] 04-24-2025 15:53-0400 Respiratory rate 18 /min Dr. Paola Corona MD Work Phone: 3(039)600-965644 [place] [address] 04-24-2025 15:53-0400 SaO2% (BldA) [Mass fraction] 98 % Dr. Paola Corona MD Work Phone: [facility] 04-24-2025 15:53-0400 Systolic blood pressure 180 mm[Hg] Dr. Paola Corona MD Work Phone: [facility] 04-12-2025 14:56-0400 Body height 165.[address] Paola Corona MD Work Phone: [facility] 04-12-2025 14:56-0400 Body mass index (BMI) [Ratio] 21 kg/m2 Dr. Paola Corona MD Work Phone: [facility] 04-12-2025 14:56-0400 Body weight 57.[address] Paola Corona MD Work Phone: [facility] 04-12-2025 14:56-0400 Diastolic blood pressure 99 mm[Hg] Dr. Paola Corona MD Work Phone: [facility] 04-12-2025 14:56-0400 Heart rate 81 /min Dr. Paola Corona MD Work Phone: [facility] 04-12-2025 14:56-0400 Respiratory rate 15 /min Dr. Paola Corona MD Work Phone: 3(493)827-977723 [address] 04-12-2025 14:56-0400 SaO2% (BldA) [Mass fraction] 99 % Dr. Paola Corona MD Work Phone: 3(088)836-123044 [place] [address] 04-12-2025 14:56-0400 Systolic blood pressure 171 mm[Hg] Dr. Paola Corona MD Work Phone: 2(438)872-265028 [place] [address] 01-11-2025 13:26-0400 Body mass index (BMI) [Ratio] 22.1 kg/m2 Dr. Paola Corona MD Work Phone: 5(983)383-276628 [place] [address] 01-11-2025 13:26-0400 Body weight 60.[address] Paola Corona MD Work Phone: 1(778)715-641528 [place] [address] 01-11-2025 13:26-0400 Diastolic blood pressure 99 mm[Hg] Dr. Paola Corona MD Work Phone: 4(374)265-166328 [place] [address] 01-11-2025 13:26-0400 Heart rate 99 /min Dr. Paola Corona MD Work Phone: 6(144)715-806928 [place] [address] 01-11-2025 13:26-0400 Respiratory rate 16 /min Dr. Paola Corona MD Work Phone: 5(904)351-168523 [address] 01-11-2025 13:26-0400 Systolic blood pressure 177 mm[Hg] Dr. Paola Corona MD Work Phone: 3(110)180-813023 [address] 10-21-2024 06:35-0500 Body temperature 97.9 [degF] Dr. Paola Corona MD Work Phone: 9(868)383-146928 [place] [address] 10-21-2024 06:35-0500 Diastolic blood pressure 76 mm[Hg] Dr. Paola Corona MD Work Phone: 2(958)407-667328 [place] [address] 10-21-2024 06:35-0500 Heart rate 116 /min Dr. Paola Corona MD Work Phone: [facility] 10-21-2024 06:35-0500 Respiratory rate 16 /min Dr. Paola Corona MD Work Phone: [facility] 10-21-2024 06:35-0500 SaO2% (BldA) [Mass fraction] 97 % Dr. Paola Corona MD Work Phone: [facility] 10-21-2024 06:35-0500 Systolic blood pressure 160 mm[Hg] Dr. Paola Corona MD Work Phone: [facility] 02-04-2024 06:47-0400 Body temperature 97.8 [degF] Dr. Paola Corona Work Phone: [facility] 02-04-2024 06:47-0400 Diastolic blood pressure 74 mm[Hg] Dr. Paola Corona Work Phone: [facility] 02-04-2024 06:47-0400 Heart rate 91 /min Dr. Paola Corona Work Phone: [facility] 02-04-2024 06:47-0400 Respiratory rate 17 /min Dr. Paola Corona Work Phone: [facility] 02-04-2024 06:47-0400 SaO2% (BldA) [Mass fraction] 99 % Dr. Paola Corona Work Phone: [facility] 02-04-2024 06:47-0400 Systolic blood pressure 158 mm[Hg] Dr. Paola Corona Work Phone: [facility] 12-26-2023 08:05-0400 Body temperature 98.1 [degF] Dr. Paola Corona Work Phone: [facility] 12-26-2023 08:05-0400 Diastolic blood pressure 84 mm[Hg] Dr. Paola Corona Work Phone: [facility] 12-26-2023 08:05-0400 Heart rate 101 /min Dr. Paola Corona Work Phone: [facility] 12-26-2023 08:05-0400 Respiratory rate 14 /min Dr. Paola Corona Work Phone: [facility] 12-26-2023 08:05-0400 SaO2% (BldA) [Mass fraction] 98 % Dr. Paola Corona Work Phone: [facility] 12-26-2023 08:05-0400 Systolic blood pressure 140 mm[Hg] Dr. Paola Corona Work Phone: [facility] 12-10-2023 07:08-0500 Body height 165.[address] Paola Corona Work Phone: [facility] 12-10-2023 07:08-0500 Body mass index (BMI) [Ratio] 21.9 kg/m2 Dr. Paola Corona Work Phone: [facility] 12-10-2023 07:08-0500 Body temperature 98 [degF] Dr. Paola Corona Work Phone: [facility] 12-10-2023 07:08-0500 Body weight 59.[address] Paola Corona Work Phone: [facility] 12-10-2023 07:08-0500 Diastolic blood pressure 80 mm[Hg] Dr. Paola Corona Work Phone: [facility] 12-10-2023 07:08-0500 Heart rate 97 /min Dr. Paola Corona Work Phone: [facility] 12-10-2023 07:08-0500 Respiratory rate 12 /min Dr. Paola Corona Work Phone: [facility] 12-10-2023 07:08-0500 SaO2% (BldA) [Mass fraction] 96 % Dr. Paola Corona Work Phone: [facility] 12-10-2023 07:08-0500 Systolic blood pressure 162 mm[Hg] Dr. Paola Corona Work Phone: [facility] 03-23-2023 13:28-0400 Body height 165.[address] Paola Corona Work Phone: [facility] 03-23-2023 13:28-0400 Body mass index (BMI) [Ratio] 21.6 kg/m2 Dr. Paola Corona Work Phone: [facility] 03-23-2023 13:28-0400 Body temperature 97.3 [degF] Dr. Paola Corona Work Phone: [facility] 03-23-2023 13:28-0400 Body weight 59.[address] Paola oCrona Work Phone: [facility] 03-23-2023 13:28-0400 Diastolic blood pressure 81 mm[Hg] Dr. Paola Corona Work Phone: [facility] 03-23-2023 13:28-0400 Heart rate 87 /min Dr. Paola Corona Work Phone: [facility] 03-23-2023 13:28-0400 Respiratory rate 16 /min Dr. Paola Corona Work Phone: [facility] 03-23-2023 13:28-0400 SaO2% (BldA) [Mass fraction] 99 % Dr. Paola Corona Work Phone: [facility] 03-23-2023 13:28-0400 Systolic blood pressure 175 mm[Hg] Dr. Paola Corona Work Phone: [facility] 06-05-2022 10:31-0400 Body temperature 98.6 [degF] Dr. Paola Corona Work Phone: [facility] Work Phone: 06-05-2022 10:29-0400 Diastolic blood pressure 84 mm[Hg] Dr. Paola Corona Work Phone: [facility] Work Phone: 06-05-2022 10:29-0400 Heart rate 83 /min Dr. Paola Corona Work Phone: [facility] Work Phone: 06-05-2022 10:29-0400 Respiratory rate 18 /min Dr. Paola Corona Work Phone: [facility] Work Phone: 06-05-2022 10:29-0400 SaO2% (BldA) [Mass fraction] 96 % Dr. Paola Corona Work Phone: [facility] Work Phone: 06-05-2022 10:29-0400 Systolic blood pressure 144 mm[Hg] Dr. Paola Corona Work Phone: [facility] Work Phone: 06-05-2022 07:50-0400 Body height 165.[address] Paola Corona Work Phone: [facility] Work Phone: 06-05-2022 07:50-0400 Body mass index (BMI) [Ratio] 24.7 kg/m2 Dr. Paola Corona Work Phone: [facility] Work Phone: 06-05-2022 07:50-0400 Body weight 67.[address] Paola Corona Work Phone: [facility] Work Phone: 03-24-2022 15:22-0400 Body height 162.[address] Paola Corona Work Phone: [facility] Work Phone: 03-24-2022 15:22-0400 Body mass index (BMI) [Ratio] 23.1 kg/m2 Dr. Paola Corona Work Phone: [facility] Work Phone: 03-24-2022 15:22-0400 Body temperature 98.4 [degF] Dr. Paola Corona Work Phone: [facility] Work Phone: 03-24-2022 15:22-0400 Body weight 61.[address] Paola Corona Work Phone: [facility] Work Phone: 03-24-2022 15:22-0400 Diastolic blood pressure 96 mm[Hg] Dr. Paola Corona Work Phone: [facility] Work Phone: 03-24-2022 15:22-0400 Heart rate 82 /min Dr. Paola Corona Work Phone: [facility] Work Phone: 03-24-2022 15:22-0400 Respiratory rate 15 /min Dr. Paola Corona Work Phone: [facility] Work Phone: 03-24-2022 15:22-0400 SaO2% (BldA) [Mass fraction] 97 % Dr. Paola Corona Work Phone: [facility] Work Phone: 03-24-2022 15:22-0400 Systolic blood pressure 182 mm[Hg] Dr. Paola Corona Work Phone: [facility] Work Phone: 02-16-2022 13:58-0400 Diastolic blood pressure 85 mm[Hg] [facility] Work Phone: 02-16-2022 13:58-0400 Heart rate 75 /min [facility] Work Phone: 02-16-2022 13:58-0400 SaO2% (BldA) [Mass fraction] 98 % [facility] Work Phone: 02-16-2022 13:58-0400 Systolic blood pressure 186 mm[Hg] [facility] Work Phone: 02-16-2022 12:46-0400 Body height 162.[address] [facility] Work Phone: 02-16-2022 12:46-0400 Body mass index (BMI) [Ratio] 22.3 kg/m2 [facility] Work Phone: 02-16-2022 12:46-0400 Body temperature 96.8 [degF] [facility] Work Phone: 02-16-2022 12:46-0400 Body weight 58.[address] [facility] Work Phone: 02-16-2022 12:46-0400 Respiratory rate 18 /min [facility] Work Phone: 03-22-2020 14:59-0400 Body mass index (BMI) [Ratio] 21.8 kg/m2 Dr. Paola Corona Work Phone: [facility] 03-22-2020 14:59-0400 Body temperature 97.6 [degF] Dr. Paola Corona Work Phone: [facility] 03-22-2020 14:59-0400 Body weight 59.[address] Paola Corona Work Phone: [facility] 03-22-2020 14:59-0400 Diastolic blood pressure 82 mm[Hg] Dr. Paola Corona Work Phone: [facility] 03-22-2020 14:59-0400 Heart rate 74 /min Dr. Paola Corona Work Phone: [facility] 03-22-2020 14:59-0400 Respiratory rate 16 /min Dr. Paola Corona Work Phone: [facility] 03-22-2020 14:59-0400 SaO2% (BldA) [Mass fraction] 98 % Dr. Paola Corona Work Phone: [facility] 03-22-2020 14:59-0400 Systolic blood pressure 162 mm[Hg] Dr. Paola Corona Work Phone: [facility] 08-14-2016 13:23-0400 BMI (Body Mass Index) 22.1 kg/m2 [facility] Work Phone: 08-14-2016 13:23-0400 Body [...] Medical Oncology Work Phone: 08-14-2016 13:23-0400 Weight 59.45 kg [facility] Work Phone: 11-21-2014 13:27-0500 Height 163.83 cm [facility] Work Phone: Encounters Encounter Date Encounter Type Care Provider Facility Start: 06-08-2025 End: 06-08-2025 ambulatory Lela HUNT Work Phone: -[facility] Start: 06-08-2025 End: 06-08-2025 Patient encounter procedure Lizzy Pelaez NP- -[facility] Work Phone: Start: 06-05-2025 End: 06-05-[address] Carlos Bernal MD -[facility] Work Phone: Start: 06-05-2025 End: 06-05-[address] Paola Corona MD Work Phone: -[facility] Start: 05-29-2025 End: 05-29-[address] Paola Corona MD Work Phone: -[facility] Start: 05-29-2025 End: 05-29-2025 Patient encounter procedure Lela Bobbyner TEST BAKER- -[facility] Start: 05-29-2025 End: 05-29-2025 ambulatory [facility] Facility:[facility] Start: 05-23-2025 Non-patient / Non-visit Dr. Mirlande Lindsey MD -[facility] Work Phone: Start: 05-22-2025 Non-patient / Non-visit Dr. Alicia Lerner MD -[facility] Start: 05-21-2025 Non-patient / Non-[facility] Start: 05-21-2025 Non-patient / Non-visit Dr. Brian arriaga MD -[facility] Work Phone: Start: 05-20-2025 Non-patient / Non-visit [facility] Start: 05-20-2025 Non-patient / Non-visit Dr. Brian arriaga MD -[facility] Work Phone: Start: 05-19-2025 ambulatory [facility] TEST BAKER Facility :[facility] Start: 05-19-2025 End: 05-22-2025 Evaluation and management of inpatient Dr. Joseph Lindsey MD -[facility] Work Phone: Start: 05-19-2025 Non-patient / Non-visit Dr. Alicia Lerner MD -[facility] Start: 05-19-2025 Non-patient / Non-visit Dr. Brian arriaga MD -[facility] Work Phone: Start: 05-18-2025 ambulatory Lela Interiano TEST BAKER Facility :[facility] Start: 05-18-2025 Evaluation and management of inpatient Dr. Najma Cates MD -[facility] Work Phone: Start: 05-18-2025 Non-patient / Non-visit Dr. Najma Cates MD -[facility] Work Phone: Start: 05-18-[address] Paola Corona MD Work Phone: -[facility] Start: 05-16-2025 End: 05-16-2025 Patient encounter procedure Laney Ferreira NP- -[facility] Work Phone: Start: 05-16-2025 End: 05-16-[address] Paola Corona MD Work Phone: -[facility] Start: 05-10-2025 End: 05-10-[address] Paola Corona MD Work Phone: -[facility] Start: 05-10-2025 End: 05-10-[address] Carlos Bernal MD -[facility] Work Phone: Start: 05-10-2025 End: 05-10-2025 ambulatory Lela Interiano NP Facility:[facility] Start: 05-02-2025 ambulatory Carlos Bernal Facility:[facility] Start: 05-02-[address] Carlos Bernal MD -[facility] Start: 04-24-2025 End: 04-24-[address] Carlos Bernal MD -[facility] Work Phone: Start: 04-24-2025 End: 04-24-[address] Paola Corona MD Work Phone: -[facility] Start: 04-17-2025 End: 04-17-[address] Paola Corona MD Work Phone: -[facility] Start: 04-17-2025 End: 04-17-[address] Carlos Bernal MD -[facility] Work Phone: Start: 04-17-2025 End: 04-17-2025 ambulatory Lelalita Interiano TEST BAKER Facility:[facility] Start: 04-12-[address] Carlos Bernal MD -[facility] Start: 04-12-2025 End: 04-12-[address] Carlos Bernal MD -[facility] Work Phone: Start: 04-12-2025 End: 04-12-[address] Paola Corona MD Work Phone: -[facility] Start: 02-27-2025 End: 02-27-2025 Patient encounter procedure Lela Interiano TEST BAKER-C -[facility] Start: 02-27-2025 End: 02-27-2025 ambulatory Lela Interiano TEST BAKER Facility:[facility] Start: 02-07-2025 ambulatory Riley Mckeon Facility:[facility] Start: 02-07-2025 Non-patient / Non-visit [facility]. Jaren [facility] Start: 02-03-2025 ambulatory Paola S Chloe Facility: [facility] Start: 02-03-2025 Non-patient / Non-visit Dr. Jaren [facility] Start: 02-03-2025 End: 02-03-[address] Riley Mckeon MD -[facility] Work Phone: Start: 02-03-2025 End: 02-03-2025 ambulatory Paola S Jolliff Facility:[facility] Start: 01-11-2025 End: 01-11-[address] Riley Mckeon MD -[facility] Work Phone: Start: 01-11-2025 End: 01-11-2025 ambulatory Paola S Chloe Facility:[facility] Start: 12-20-2024 End: 12-20-[address] Paola Corona MD Work Phone: [facility] Work Phone: Start: 12-20-2024 End: 12-20-[address] Paola Corona MD -Laboratory, [facility] Start: 12-20-2024 End: 12-20-2024 ambulatory Paola Corona Facility:[facility] Start: 10-24-2024 End: 10-24-[address] Paola Corona MD -Laboratory, [facility] Start: 10-24-2024 End: 10-24-2024 ambulatory Paola Corona Facility:[facility] Start: 10-21-2024 End: 10-21-2024 Patient encounter procedure Eagle LUKE [facility] Work Phone: Start: 10-21-2024 End: 10-21-2024 ambulatory Eagle LUKE Facility:[facility] Start: 02-04-2024 End: 02-04-[address] Paola Corona Work Phone: [facility] Work Phone: Start: 02-04-2024 End: 02-04-[address] Paola Corona Work Phone: [facility]-Laboratory, Specimen Work Phone: Start: 02-04-2024 End: 02-04-[address] Paola Corona Work Phone: [facility] Work Phone: Start: 12-26-2023 End: 12-26-[address] Paola Croona Work Phone: [facility] Work Phone: Start: 12-10-2023 End: 12-10-[address] Paola Corona Work Phone: [facility] Work Phone: Start: 04-20-2023 End: 04-20-[address] Paola Corona Work Phone: [facility] Work Phone: Start: 04-20-2023 End: 04-20-[address] Paola Corona Work Phone: [facility]-Outpatient Breast Imaging Work Phone: Start: 03-30-[address] Paola dent Work Phone: [facility] Work Phone: Start: 03-23-2023 End: 03-23-[address] Paola Corona Work Phone: [facility] Work Phone: Start: 03-16-2023 End: 03-16-2023 ambulatory [facility] Work Phone: Start: 03-16-2023 End: 03-16-2023 Patient encounter procedure [facility]-Laboratory Start: 06-26-2022 End: 06-26-[address] Paola Corona Work Phone: [facility] Work Phone: Start: 06-26-2022 End: 06-26-[address] Paola Corona Work Phone: [facility]-Nuclear Medicine, [facility] Start: 06-13-2022 End: 06-13-[address] Paola Corona Work Phone: [facility] Work Phone: Start: 06-13-2022 End: 06-13-[address] Paola Corona [facility] Phone[facility] Start: 06-05-2022 End: 06-05-2022 Emergency department patient visit Dr. Paola Corona Work Phone: [facility]-Emergency Department Start: 04-07-2022 End: 04-07-[address] Paola Corona Work Phone: [facility]-Outpatient Breast Imaging Start: 03-24-2022 End: 03-24-[address] Paola Corona Work Phone: [facility] Start: 03-12-[address] Paola dent Work Phone: [facility] Medical Oncology Start: 02-16-2022 End: 02-16-2022 Emergency department patient visit [facility]Emergency Department Procedures Date Procedure Procedure Detail Performing Clinician Start: 05-22-2025 Computed tomography of abdomen and pelvis with contrast Dr. Paola Corona MD Work Phone: Start: 05-22-[address] Paola Corona MD Work Phone: Start: 05-21-2025 Plain X-ray abdomen Dr. Paola Corona MD Work Phone: Start: 05-20-2025 Serum inorganic phos phate measurement Dr. Paola Corona MD Work Phone: Start: 05-20-2025 Plain X-ray abdomen Dr. Paola Corona MD Work Phone: Start: 05-19-[address] Paola Corona MD Work Phone: Start: 05-19-2025 Plain X-ray abdomen Dr. Paola Corona MD Work Phone: Start: 05-18-2025 Urnls dip stick/tabl et reagent auto microscopy Dr. Paola Corona MD Work Phone: Start: 05-18-2025 Computed tomography of abdomen and pelvis with intravenous contrast Dr. Paola Corona MD Work Phone: Start: 05-18-[address] Paola Corona MD Work Phone: Start: 05-10-2025 Plain [...] dent Work Phone: Start: 04-20-2023 Screening mammography D rAshtyn Corona Work Phone: Start: 06-26-2022 Radionuclide imaging of liver and/or biliary tract using radioactive isotope Dr. Paola Corona Work Phone: Start: 06-13-2022 Diagnostic radiograp hy of abdomen, decubitus and erect Dr. Paola Corona Work Phone: Start: 06-05-2022 Plain chest X-ray Dr. Indra Corona Work Phone: Start: 04-07-2022 Screening mammography D r. Paola Corona Work Phone: Start: 02-16-2022 X-ray of chest posteroanterior view Start: 02-18-2017 End: 02-20-2017 *CMP Complete Metabolic Panel Niecy Sainz Alam Work Phone: Start: 02-18-2017 End: 02-20-2017 Lactate dehydrogenase (LDH) Niecy Sainz A haywood Work Phone: Start: 02-18-2017 End: 02-20-2017 Magnesium Niecy Sainz Alam Work Phone: Start: 02-18-2017 End: 02-20-2017 Urate Niecy Sainz Alam Work Phone: Start: 02-07-2016 End: 02-07-2016 *CBC with Differential [place] Michelle Alam Work Phone: Start: 02-07-2016 End: 02-07-2016 *CMP Complete Metabolic Panel Niecy Sainz Alam Work Phone: Start: 02-07-2016 End: 02-14-2016 Ct abd&pelv 1+ section/regns Niecy Corona Work Phone: Start: 02-07-2016 End: 02-14-2016 Ct thorax w/o & w/dye Niecy Sainz Alam Work Phone: Start: 02-07-2016 End: 02-07-2016 Lactate dehydrogenase (LDH) Niecy Burrell haywood Work Phone: Start: 02-07-2016 End: 02-07-2016 Magnesium Niecy Sainz Alam Work Phone: Start: 02-07-2016 End: 02-07-2016 Urate Niecy Sainz Alam Work Phone: Start: 07-26-2015 End: 07-26-2015 *CBC with Differential [place] Michelle Alam Work Phone: Start: 07-26-2015 End: 07-26-2015 *CMP Complete Metabolic Panel Niecy Sainz Alam Work Phone: Start: 07-26-2015 End: 07-27-2015 Cancer antigen 125 Niecy Sainz Alam Work Phone: Start: 07-26-2015 End: 07-26-2015 Lactate dehydrogenase (LDH) Niecy haywood Work Phone: Start: 07-26-2015 End: 07-26-2015 Urate Niecy Corona Work Phone: Start: 02-15-2015 End: 02-14-2016 *CBC with Differential [place] Michelle Alamichelle Work Phone: Start: 11-13-2014 End: 02-08-2015 *CBC with Differential Niecy Sainz Alamichelle Work Phone: Start: 11-13-2014 End: 02-08-2015 *CMP Complete Metabolic Panel Niecy Corona Work Phone: Start: 11-13-2014 End: 02-08-2015 Cancer antigen 125 Niecy Corona Work Phone: Start: 11-13-2014 End: 02-08-2015 Lactate dehydrogenase (LDH) Niecy haywood Work Phone: Start: 11-13-2014 End: 02-08-2015 Thyroid stimulating hormone (TSH) Niecy Corona Work Phone: Start: 11-13-2014 End: 02-08-2015 Urate Niecy Corona Work Phone: Bacteria identified in Blood by Culture Dr. Paola Corona Work Phone: Urine culture Dr. Paola hopkins Work Phone: Viral antigen assay Dr. Paola Corona Work Phone: Plan of Treatment Date Care Activity Detail Author Start: 05-22-2025 Patient discharge [facility] Start: 05-20-2025 Serum inorganic phosphate measurement [facility] Start: 05-19-2025 Admission procedure [facility] Start: 05-19-2025 Consultation [facility] Start: 05-19-2025 Inhalation therapy procedure [facility] Start: 05-18-2025 Following clinical pathway protocol [facility] Start: 05-18-2025 Assessment of risk of venous thromboembolism [facility] Start: 05-18-2025 Incentive spirometry [facility] Start: 05-18-2025 Insertion of catheter into peripheral vein [facility] Start: 05-18-2025 Introduction of urinary catheter [facility] Start: 05-18-2025 Measuring intake and output [facility] Start: 05-18-2025 Oxygen therapy [facility] Start: 05-18-2025 Providing care according to standard [facility] Start: 05-18-2025 Provision of activity privileges [facility] Start: 05-18-2025 Referral to general surgeon [facility] Start: 05-18-2025 Referral to service [facility] Start: 05-18-2025 [facility] Start: 05-18-2025 Verification routine [facility] Start: 05-18-2025 End: 05-18-2025 Hospital admission, emergency, from emergency room, medical nature [facility] Start: 05-18-2025 Admission procedure [facility] Start: 05-18-2025 Patient referral to dietitian [facility] Start: 05-10-2025 CORE NDL BX LNG/MED PERQ CORE NDL BX LNG/MED PERQ [facility] Start: 05-10-2025 Following clinical pathway protocol [facility] Start: 05-10-2025 Catheterization of vein [facility] Start: 05-10-2025 Oxygen therapy [facility] Start: 05-10-2025 Patient discharge [facility] Start: 05-10-2025 Vital signs measurements [facility] Start: 06-05-2022 End: 06-05-2022 [facility] Work Phone: Start: 06-05-2022 Blood culture [facility] Work Phone: Start: 02-18-2017 End: 08-14-2016 *CBC w/Diff - oncology ONLY [facility] Work Phone: Start: 02-18-2017 End: 02-20-2017 *CMP Complete Metabolic Panel *CMP Complete Metabolic Panel [facility] Work Phone: Start: 02-18-2017 End: 02-20-2017 Lactate dehydrogenase (LDH) *LDH -LDH (Lactate Dehydrogenase) [facility] Work Phone: Start: 02-18-2017 End: 02-20-2017 Magnesium *Magnesium [facility] Work Phone: Start: 02-18-2017 End: 02-20-2017 Urate *Uric Acid Blood [facility] Work Phone: Start: 08-14-2016 End: 02-14-2016 *CBC with Differential *CBC with Differential [facility] Work Phone: Start: 08-14-2016 End: 02-14-2016 *CMP Complete Metabolic Panel *CMP Complete Metabolic Panel [facility] Work Phone: Start: 08-14-2016 End: 02-14-2016 Lactate dehydrogenase (LDH) *LDH -LDH (Lactate Dehydrogenase) [facility] Work Phone: Start: 08-14-2016 End: 02-14-2016 Urate *Uric Acid Blood [facility] Work Phone: Start: 02-14-2016 End: 02-07-2016 *CBC with Differential *CBC with Differential [facility] Work Phone: Start: 02-14-2016 End: 02-07-2016 *CMP Complete Metabolic Panel *CMP Complete Metabolic Panel [facility] Work Phone: Start: 02-14-2016 End: 02-07-2016 Lactate dehydrogenase (LDH) *LDH -LDH (Lactate Dehydrogenase) [facility] Work Phone: Start: 02-14-2016 End: 02-07-2016 Magnesium *Magnesium [facility] Work Phone: Start: 02-14-2016 End: 02-07-2016 Urate *Uric Acid Blood [facility] Work Phone: Start: 02-07-2016 End: 02-14-2016 Ct abd&pelv 1+ section/regns CT Abdomen and pelvis; without and with contrast [facility] Work Phone: Start: 02-07-2016 End: 02-14-2016 Ct thorax w/o & w/dye CT Chest with and without Contrast [facility] Work Phone: Start: 07-26-2015 End: 07-26-2015 *CBC with Differential *CBC with Differential [facility] Work Phone: Start: 07-26-2015 End: 07-26-2015 *CMP Complete Metabolic Panel *CMP Complete Metabolic Panel [facility] Work Phone: Start: 07-26-2015 End: 07-27-2015 Cancer antigen 125 *CA125 - Cancer Antigen (CA) 125 [facility] Work Phone: Start: 07-26-2015 End: 07-26-2015 Lactate dehydrogenase (LDH) *LDH -LDH (Lactate Dehydrogenase) [facility] Work Phone: Start: 07-26-2015 End: 07-26-2015 Urate *Uric Acid Blood [facility] Work Phone: Start: 02-15-2015 End: 02-14-2016 *CBC with Differential *CBC with Differential [facility] Work Phone: Start: 11-13-2014 End: 02-08-2015 *CBC with Differential *CBC with Differential [facility] Work Phone: Start: 11-13-2014 End: 02-08-2015 *CMP Complete Metabolic Panel *CMP Complete Metabolic Panel [facility] Work Phone: Start: 11-13-2014 End: 02-08-2015 Cancer antigen 125 *CA125 - Cancer Antigen (CA) 125 [facility] Work Phone: Start: 11-13-2014 End: 02-08-2015 Lactate dehydrogenase (LDH) *LDH -LDH (Lactate Dehydrogenase) [facility] Work Phone: Start: 11-13-2014 End: 02-08-2015 Thyroid stimulating hormone (TSH) *TSH [facility] Work Phone: Start: 11-13-2014 End: 02-08-2015 Urate *Uric Acid Blood [facility] Work Phone: Start: 04-04-2013 End: 04-04-2013 *MISC - Miscellaneous Lab Test #1 *MISC - Miscellaneous Lab Test #1 [facility] Work Phone: Start: 04-04-2013 End: 04-04-2013 Histoplasma capsulatum Ab [Presence] in Serum *HISTOPL Histoplasma Antibody [facility] Work Phone: Start: 04-04-2013 End: 04-04-2013 Mycobacterium tuberculosis tuberculin stimulated gamma interferon [Presence] in Blood *QFTBINC Quantiferon TB Gold [facility] Work Phone: Anion gap in Serum o r Plasma [facility] Anion gap in Serum o r Plasma [facility] Anion gap in Serum o r Plasma [facility] Anion gap in Serum o r Plasma [facility] Bacteria identified in Blood by Culture Blood Culture [facility] Work Phone: Bacteria identified in Urine by Culture Urine Culture [facility] Work Phone: Blood culture [facility] Work Phone: BUN/Creatinine ratio [facility] BUN/Creatinine ratio [facility] BUN/Creatinine ratio [facility] BUN/Creatinine ratio [facility] CA 125 measurement [facility] Work Phone: CA 125 measurement [facility] Calcium [Mass/volume ] in Serum or Plasma [facility] Calcium [Mass/volume ] in Serum or Plasma [facility] Calcium [Mass/volume ] in Serum or Plasma [facility] Calcium [Mass/volume ] in Serum or Plasma [facility] Cancer Ag 125 [Units/volume] in Serum or Plasma [facility] Carbon dioxide, tota l [Moles/volume] in Central venous blood [facility] Carbon dioxide, tota l [Moles/volume] in Central venous blood [facility] Carbon dioxide, tota l [Moles/volume] in Central venous blood [facility] Carbon dioxide, tota l [Moles/volume] in Central venous blood [facility] CBC W Auto Different ial panel - Blood [facility] Work Phone: CBC W Auto Different ial panel - Blood [facility] Comprehensive metabo lic 2000 panel - Serum or Plasma [facility] Creatinine [Mass/vol ume] in Serum or Plasma [facility] Creatinine [Mass/vol ume] in Serum or Plasma [facility] Creatinine [Mass/vol ume] in Serum or Plasma [facility] Creatinine [Mass/vol ume] in Serum or Plasma [facility] CT Abdomen and Pelvi s W contrast IV [facility] Work Phone: CT Abdomen and Pelvi s W contrast IV [facility] CT Chest W contrast IV [facility] Work Phone: CT Chest W contrast IV [facility] Chest W contrast IV [facility] Erythrocyte mean corpuscular volume determination [facility] Erythrocyte mean corpuscular volume determination [facility] Erythrocyte mean corpuscular volume determination [facility] Glucose [Mass/volume ] in Serum or Plasma [facility] Glucose [Mass/volume ] in Serum or Plasma [facility] Glucose [Mass/volume ] in Serum or Plasma [facility] Glucose [Mass/volume ] in Serum or Plasma [facility] Hematocrit [Volume Fraction] of Blood [facility] Hematocrit [Volume Fraction] of Blood [facility] Hematocrit [Volume Fraction] of Blood [facility] Hemoglobin [Mass/vol ume] in Blood [facility] Hemoglobin [Mass/vol ume] in Blood [facility] Hemoglobin [Mass/vol ume] in Blood [facility] Leukocytes [#/volume ] in Blood [facility] Leukocytes [#/volume ] in Blood [facility] Leukocytes [#/volume ] in Blood [facility] Magnesium measurement [facility] Mean corpuscular hemoglobin concentration determination [facility] Mean corpuscular hemoglobin concentration determination [facility] Mean corpuscular hemoglobin concentration determination [facility] Mean corpuscular hemoglobin determination [facility] Mean corpuscular hemoglobin determination [facility] Mean corpuscular hemoglobin determination [facility] Measurement of renal function [facility] Measurement of renal function [facility] Measurement of renal function [facility] Measurement of renal function [facility] Neutrophil count [facility] Neutrophil count [facility] Neutrophil count [facility] Neutrophil percent differential count [facility] Neutrophil percent differential count [facility] Neutrophil percent differential count [facility] Patient Education [facility] Work Phone: Patient referral [facility] Work Phone: Platelets [#/volume] in Blood [facility] Platelets [#/volume] in Blood [facility] Platelets [#/volume] in Blood [facility] Positron emission tomography with computed tomography [facility] Potassium measurement [facility] Potassium measurement [facility] Potassium measurement [facility] Potassium measurement [facility] Red blood cell count [facility] Red blood cell count [facility] Red blood cell count [facility] Red cell distributio n width determination [facility] Red cell distributio n width determination [facility] Red cell distributio n width determination [facility] Serum chloride measurement [facility] Serum chloride measurement [facility] Serum chloride measurement [facility] Serum chloride measurement [facility] Sodium measurement [facility] Sodium measurement [facility] Sodium measurement [facility] Sodium measurement [facility] Urea nitrogen [Mass/volume] in Serum or Plasma [facility] Urea nitrogen [Mass/volume] in Serum or Plasma [facility] Urea nitrogen [Mass/volume] in Serum or Plasma [facility] Urea nitrogen [Mass/volume] in Serum or Plasma [facility] Immun[place] Immunization Date Immunization Notes Care Provider Fa cility 02-16-2022 tetanus toxoid, redu dee diphtheria toxoid, and acellular pertussis vaccine, adsorbed [facility] 02-14-2021 Covid (Pfizer) [facility] 01-24-2021 Covid (Pfizer) [facility] Payers Date Payer Category Payer Self-pay [id number] 2006 Medicare [id number] 2006 Unknown [id number] Unknown [id number] 2.16.8 40.1.988299.3.579.2.462 Unknown [id number] 2.16.8 40.1.397811.3.579.2.462 Unknown [id number] 2.16.8 40.1.879582.3.579.2.462 Unknown [id number] 2.16.8 40.1.350441.3.579.2.462 Unknown [id number] 2.16.8 40.1.454753.3.579.2.462 Unknown [id number] 2.16.8 40.1.668048.3.579.2.462 Unknown [id number] 2.16.8 40.1.145363.3.579.2.462 Unknown [id number] 2.16.8 40.1.804006.3.579.2.462 Unknown [id number] 2.16.8 40.1.545550.3.579.2.462 Unknown [id number] 2.16.8 40.1.190280.3.579.2.462 Unknown [id number] 2.16.8 40.1.201269.3.579.2.462 Unknown [id number] 2.16.8 40.1.182332.3.579.2.462 Unknown [id number] 2.16.8 40.1.622936.3.579.2.462 Unknown [id number] 2.16.8 40.1.419815.3.579.2.462 Unknown [id number] 2.16.8 40.1.493507.3.579.2.462 Unknown [id number] 2.16.8 40.1.916293.3.579.2.462 Unknown [id number] 2.16.8 40.1.145089.3.579.2.462 Unknown [id number] 2.16.8 40.1.484842.3.579.2.462 Unknown [id number] 2.16.8 40.1.688622.3.579.2.462 Unknown [id number] 2.16.8 40.1.894404.3.579.2.462 Unknown [id number] 2.16.8 40.1.310950.3.579.2.462 Unknown [id number] 2.16.8 40.1.711184.3.579.2.462 Unknown [id number] 2.16.8 40.1.092835.3.579.2.462 Unknown [id number] 2.16.8 40.1.895626.3.579.2.462 Unknown [id number] 2.16.8 40.1.302143.3.579.2.462 Unknown [id number] 2.16.8 40.1.781153.3.579.2.462 Social History Date Type Detail Facility Start: 02-16-2022 End: 12-26-2023 Tobacco smoking status NHIS Unknown if ever smoked [facility] Start: 03-22-2020 Non-smoker [facility] Start: 1940 Sex Assigned At Female [facility] Start: 03-12-2024 End: 05-18-2025 Tobacco smoking status NHIS Never smoked tobacco (finding) [facility] Start: 12-28-2024 Sex Female (finding) [facility] Not [facility] Goals Date Patient Goal Desired Activity /State Functional Status Date Assessment Result Facility 05-22-2025 Functional status Ambulates [facility] Work Phone: 05-21-2025 Functional status None [facility] Work Phone: 05-19-2025 Functional status Standby Assist [facility] Work Phone: 05-10-2025 Functional status Bathroom Privilege [facility] Work Phone: Mental Status Date Assessment Result Facility 05-22-2025 Cognitive function Voice/Name [facility] Work Phone: 05-19-2025 Cognitive function Voice/Name [facility] Work Phone: 05-10-2025 Cognitive function Awake;Alert;Appropriat e [facility] Work Phone: Clinical Notes 10-08-2021 to 05-23-2025 Note Date & Type Note Facility 05-23-2025 Note [facility] Medical Records Department [address] [place] [address] Discharge Summary 05/23/25 1225 MR#: [id number] Acct: [id number] Name: LUZ CLANCY Rep #: [id number] : 1940 85 From: Joseph Lindsey MD PCP: MARILEE Partida Status:DIS IN Location: [place] [address] Providers Date of Admission: 05/19/25 Date of Discharge: 05/22/25 Primary Care Physician: MARILEE Partida Consultations 05/18/25 22:50 Consult: General Surgery Routine Consulting Provider: Isaiah Lerner Reason for Consult: ? pSBO EMERGENT Consult: No MD Notified: Yes Date Notified: 05/18/25 Time Notified: 22:43 Method of Notification: ED Physician Initiated Reason For Visit: ? PSBO Diagnosis Discharge Diagnosis (1) Intractable nausea and vomiting: Status: Acute Code(s): R11.2 - Nausea with vomiting, unspecified Medications at Discharge Home Medications Calcium Carbonate/Vitamin D 1 tab PO DAILY 08/01/13 Multivitamins,Therapeutic 1 tab PO DAILY 08/01/13 lactobacillus combination no.9 4 billion cell capsule (Adult 50 Plus Probiotic) 4,000 mmu cells PO DAILY 03/23/23 famotidine 20 mg tablet (Zantac-360 (famotidine)) 20 mg PO QDAY 12/01/24 metoprolol succinate 50 mg tablet,extended release 24 hr (Toprol XL) 50 mg PO QDAY #90 tabs 01/11/25 levothyroxine 75 mcg tablet 50 mcg PO QDAY 04/12/25 Hospital Course Operations None Procedures None Summary of Care Provided Minutes Spent on Discharge: 38 Hospital Course: Per HPI: The patient is an 85 y/o F w/ PMHx: CKD stage II per GFR trending, HTN, GERD, Hx Uterine CA/endometrial s/p PRADEEP as well as chemotherapy/radiation 2012, Hypothyroidism who presents to the [facility] ED on 05/18/25 with history of onset on day of presentation abdominal distention, increased burping, lack of flatus, episodes of nausea and emesis although she does report a bowel movement of normal texture and size at approximately 6:30 AM and also 1 in the early afternoon which is a familiar bowel pattern for her although she does note that last flatus was the day prior and given ongoing discomfort noted to be waxing and waning occasionally and with a cramping sensation rated 6- 7 out of 10 in severity at its worst, currently resolved upon ED evaluation but given ongoing prompted ED evaluation to be cautious. She does note that in March she had a similar episode but no emesis at that time and it did resolve over 48 hours. Prior to this she had never had anything like this before. Workup in the ED included T98.4, heart rate 125, BP 164/106, respiratory rate 20, 100% on room air with most recent repeat vitals heart rate 122, BP 151/99, respiratory rate 14, 98% room air, CBC with 14.2, hemoglobin 12.2, platelet 364 with left shift and lymphopenia, CMP with sodium 132, chloride 94, carbon dioxide 18, AG 20, BUN/creat 15/0.78, GFR 75, glucose 152, lactic acid 1.9, hepatic profile not marked appearing aside AST 42, lipase 32, urinalysis not marked appearing, CT abdomen and pelvis with mildly prominent small bowel loops with air-fluid levels possibly acute enteritis versus ileus with no definitive transition point however unable to exclude early/partial SBO, colonic diverticulosis without diverticulitis, small hyperdense left renal lesion possibly complex cyst, bilateral pulmonary nodules with no significant change in his prior study. In the ED patient administered 2 L normal saline, Reglan 5 mg IV x 1, morphine 2 mg IV x 1, Zofran 4 mg IV x 1. ED discussed case with Dr. Lerner. Hospital Course: 1. Partial small bowel obstruction after hysterectomy for endometrial cancer in 2012???85-year-old female presented to hospital with abdominal pain and distention. Had been having episodes of nausea and vomiting at home prior to coming in. She had had similar symptoms about 6 weeks prior to this hospitalization but they resolved on their own fairly quickly. CT of the abdomen and pelvis on 05/18/2025 showed mildly prominent small bowel loops with air-fluid levels but no obvious transition point was seen. She was managed conservatively with consultation of general surgery as well as n.p.o. and IV fluids. She had slow improvement but ultimately did not require any type of surgical intervention. A repeat CT of the abdomen pelvis was obtained on the day of discharge on 05/22/2025 that showed complete resolution of her previous small bowel dilatation. She was also noted on that CT scan to have a stable 9 mm nodule in the anterior aspect the left lower lobe of the lung. She tolerated a diet both for breakfast lunch and dinner and I discussed with her the possibility for discharge and she expressed understanding of the risk and benefits of going home and would like to go home today. General surgery also agreed with the plans for discharge with outpatient follow-up to her PCP. 2. Essential hypertension, hy (more content not included)... [facility] 05-22-2025 Consult note [facility] 05-22-2025 Consult note Note Date/Time May 22, 2025 4:25pm [facility] Medical Records Department [address] [place] [address] Counseling Note - Pharmacy 05/22/25 1316 MR#: [id number] Acct: [id number] Name: LUZ CLANCY Rep #:[id number] : 1940 85 From: Mavis Vizcaino PCP: MARILEE Partida Status:ADM IN Location: [place] [address] [place] [facility]con[facility] Pharmacy Service has performed discharge medication reconciliation for this patient. The patient's discharge medication list was reviewed for discrepancies and discrepancies were resolved. Medications at Discharge Home Medications Calcium Carbonate/Vitamin D 1 tab PO DAILY 08/01/13 Multivitamins,Therapeutic 1 tab PO DAILY 08/01/13 lactobacillus combination no.9 4 billion cell capsule (Adult 50 Plus Probiotic) 4,000 mmu cells PO DAILY 03/23/23 famotidine 20 mg tablet (Zantac-360 (famotidine)) 20 mg PO QDAY 12/01/24 metoprolol succinate 50 mg tablet,extended release 24 hr (Toprol XL) 50 mg PO QDAY #90 tabs 01/11/25 levothyroxine 75 mcg tablet 50 mcg PO QDAY 04/12/25 05/22/25 1316 <Electronically signed by Mavis Vizcaino> Date _ Mavis Vizcaino Cosigner Signature (if applicable): Date CC: ~ Signed [facility] Work Phone: 1(117) 762-599208-11-2025 Progress note Author Isaiah Lerner [facility] Note Date/Time May 22, 2025 12 :17pm [facility] Medical Records Department [address] [place] [address] Progress Note - Surgery 05/22/25 1216 MR#: [id number] Acct: [id number] Name: LUZ CLANCY Rep #:[id number] : 1940 85 From: Isaiah gibson MD PCP: MARILEE Partida Status:ADM IN Location: [place] [address] Subjective Subjective This morning the patient reports that she was passing minimal flatus so I repeated a CT scan with oral and IV contrast. She reports that since the CT shehas had 5 bowel movements and her abdomen feels normal with no abdominal pain. Objective Data Objective Data Vital Signs: Vital Signs Temp Pulse Resp BP Pulse Ox O2 Del Method 97.7 F L 112 H 16 164/101 H 99 Room Air 05/22/25 09:21 05/22/25 10:21 05/22/25 09:21 05/22/25 10:21 05/22/25 09:21 05/22/25 09:21 Oxygen Delivery Method Room Air Weight: 124 lb 8.979 oz Body Mass Index (BMI) 20.7 Intake & Output: Intake and Output for Last 24 Hours 05/20/25 05/21/25 05/22/25 23:59 23:59 23:59 Intake Total 1180 / 1280 1460 / 1460 100 / 100 Balance 1180 / 1280 1460 / 1460 100 / 100 Lab / Micro Data 05/22/25 03:30 05/22/25 03:30 Labs: Laboratory Results - last 24 hr 05/22/25 03:30: WBC 5.8, RBC 3.70 L, Hgb 10.4 L, Hct 32.2 L, MCV 87.0, MCH 28.1,MCHC 32.3, RDW Std Deviation 43.3, RDW Coeff of Karthikeyan 13.6, Plt Count 323, MPV 11.2, Immature Gran % (Auto) 0.300, Neut % (Auto) 75.5 H, Lymph % (Auto) 12.3 L,Elk % (Auto) 10.2 H, Eos % (Auto) 1.2, Baso % (Auto) 0.5, Absolute Neuts (auto)4.4, Absolute Lymphs (auto) 0.71 L, Nucleated RBC % 0, Sodium 135, Potassium 3.7, Chloride 99, Carbon Dioxide 16.2 L, Anion Gap 20 H, BUN 17, Creatinine 0.80, Estim Creat Clear Calc 46.69 L, Est GFR (MDRD) Non-Af 73, BUN/Creatinine Ratio 21.8 H, Glucose 62 L, Calcium 9.4 Radiography Diagnostic Testing: Radiology Impression Abdomen/Pelvis CT 05/22/25 10:30 IMPRESSION: No evidence of bowel obstruction. Sigmoid diverticulosis. Stable 9 mm nodule in the anterior aspect of the left lower lobe abutting the heart. Reading Location: [facility] Physical Exam Const oriented x3 and no apparent distress Resp normal respiratory effort GI normal to inspection, nondistended, normoactive bowel sounds Assessment & Plan Assessment/Plan (1) Intractable nausea and vomiting: PLAN: The patient did not seem to distended this morning so I ordered a CT scan. CT scan revealed normal abdomen with no sign of bowel obstruction. The patienthad several bowel movements after her contrast. I will order the patient a regular diet if she tolerates that she can be discharged home and follow-up as needed. Isaiah Lerner MD Pager: [facility] [address], [address] [place] [address] Office: 05/22/25 1217 <Electronically signed by Isaiah Lerner MD> Cosigner Signature (if applicable): CC: ~ Signed [facility] Work Phone: 1(230) 155-875408-11-2025 Discharge summary Author Joseph Lindsey [facility] Note Date/Time May 22, 2025 12 :06pm [facility] Medical Records Department [address] [place] [address] Instructions for Home/Discharge Instructions 05/22/25 1156 MR#: [id number] Acct: [id number] Name: LUZ CLANCY Rep #:[id number] : 1940 85 From: Joseph turcios MD PCP: BRYAN PartidaC Status:ADM IN Discharge Instructions DC O2, CPAP, BIPAP needs Home O2 Discharge instructions: No Dressing / Incision Discharge Activity: Return to Normal Activity Dressing / Incision Call your doctor if you observe: Fever of 101 or Higher, Shortness of breath, Dizziness, Fainting spells, Swelling in the ankles, Chest pain and Increased palpitations (irregular heartbeat) Follow Up Care Test Results: Test results from this visit will be discussed in further detail at your follow- up appointment, if applicable. Discharge Plan Admission Admit Date/Time: 05/19/25 11:54 Attending Provider: Joseph Lindsey Primary Care Provider: Lela Interiano NP Consulting Providers: Isaiah Lerner; Najma Cates; Brian Negrete Discharge Orders/Prescriptions Prescriptions: Continued Adult 50 Plus Probiotic 4 billion cell capsule 4,000 mmu cells PO DAILY Rx Instructions: administer with a meal famotidine [Zantac-360 (famotidine)] 20 mg tablet 20 mg PO QDAY metoprolol succinate [Toprol XL] 50 mg tablet extended release 24 hr 50 mg PO QDAY Qty: 90 3RF levothyroxine 75 mcg tablet 50 mcg PO QDAY Multivitamins,Therapeutic tablet 1 tab PO DAILY Calcium Carbonate/Vitamin D tablet 1 tab PO DAILY Referrals / Follow Up: Lela Interiano NP, SOURAV-C [Primary Care Provider] - Within 1 Week Disposition Disposition (needs filled in before D/C Order can be placed): Home, Self Care 05/22/25 1206<Electronically signed by Joseph Lindsey MD>Joseph Lindsey MD CC: TEST BAKER-C Lela Interiano; Dr. Isaiah Lerner MD; Dr. Najma Cates MD; Dr. Brian Negrete MD ~ Signed [facility] Work Phone: 1(501) 213-756808-11-2025 Progress note [facility] Medical Records Department [address] [place] [address] Progress Note - Surgery 05/22/25 1216 MR#: [id number] Acct: [id number] Name: LUZ CLANCY Rep #:[id number] : 1940 85 From: Isaiah gibson MD PCP: MARILEE Partida Status:ADM IN Location: [place] [address] Subjective Subjective This morning the patient reports that she was passing minimal flatus so I repeated a CT scan with oral and IV contrast. She reports that since the CT shehas had 5 bowel movements and her abdomen feels normal with no abdominal pain. Objective Data Objective Data Vital Signs: Vital Signs Temp Pulse Resp BP Pulse Ox O2 Del Method 97.7 F L 112 H 16 164/101 H 99 Room Air 05/22/25 09:21 05/22/25 10:21 05/22/25 09:21 05/22/25 10:21 05/22/25 09:21 05/22/25 09:21 Oxygen Delivery Method Room Air Weight: 124 lb 8.979 oz Body Mass Index (BMI) 20.7 Intake & Output: Intake and Output for Last 24 Hours 05/20/25 05/21/25 05/22/25 23:59 23:59 23:59 Intake Total 1180 / 1280 1460 / 1460 100 / 100 Balance 1180 / 1280 1460 / 1460 100 / 100 Lab / Micro Data 05/22/25 03:30 05/22/25 03:30 Labs: Laboratory Results - last 24 hr 05/22/25 03:30: WBC 5.8, RBC 3.70 L, Hgb 10.4 L, Hct 32.2 L, MCV 87.0, MCH 28.1,MCHC 32.3, RDW Std Deviation 43.3, RDW Coeff of Karthikeyan 13.6, Plt Count 323, MPV 11.2, Immature Gran % (Auto) 0.300, Neut %(Auto) 75.5 H, Lymph % (Auto) 12.3 L,Elk % (Auto) 10.2 H, Eos % (Auto) 1.2, Baso % (Auto) 0.5, Absolute Neuts (auto)4.4, Absolute Lymphs (auto) 0.71 L, Nucleated RBC % 0, Sodium 135, Potassium 3.7, Chloride 99, Carbon Dioxide 16.2 L, Anion Gap 20 H, BUN 17, Creatinine 0.80, Estim Creat Clear Calc 46.69 L, Est GFR (MDRD) Non-Af 73, BUN/Creatinine Ratio 21.8 H, Glucose 62 L, Calcium 9.4 Radiography Diagnostic Testing: Radiology Impression Abdomen/Pelvis CT 05/22/25 10:30 IMPRESSION: No evidence of bowel obstruction. Sigmoid diverticulosis. Stable 9 mm nodule in the anterior aspect of the left lower lobe abutting the heart. Reading Location: [place] [address] Physical Exam Const oriented x3 and no apparent distress Resp normal respiratory effort GI normal to inspection, nondistended, normoactive bowel sounds Assessment & Plan Assessment/Plan (1) Intractable nausea and vomiting: PLAN: The patient did not seem to distended this morning so I ordered a CT scan. CT scan revealed normal abdomen with no sign of bowel obstruction. The patienthad several bowel movements after her contrast. I will order the patient a regular diet if she tolerates that she can be discharged home andfollow-up as needed. Isaiah Lerner MD Pager: [facility] [address] [place] [address], [address] [place] [address] Office: 05/22/25 [phone] Cosigner Signature (if applicable): CC: ~ Signed [facility]08-11-2025 Discharge summary [facility] Medical Records Department [address] [place] [address] Instructions for Home/Discharge Instructions 05/22/25 1156 MR#: [id number] Acct: [id number] Name: LUZ CLANCY Rep #:[id number] : 1940 85 From: Joseph turcios MD PCP: MARILEE Partida Status:ADM IN Discharge Instructions DC O2, CPAP, BIPAP needs Home O2 Discharge instructions: No Dressing / Incision Discharge Activity: Return to Normal Activity Dressing / Incision Call your doctor if you observe: Fever of 101 or Higher, Shortness of breath, Dizziness, Fainting spells, Swelling in the ankles, Chest pain and Increased palpitations (irregular heartbeat) Follow Up Care Test Results: Test results from this visit will be discussed in further detail at your follow- up appointment, if applicable. Discharge Plan Admission Admit Date/Time: 05/19/25 11:54 Attending Provider: Joseph Lindsey Primary Care Provider: Lela Interiano NP Consulting Providers: Isaiah Lerner; Najma Cates; Brian Negrete Discharge Orders/Prescriptions Prescriptions: Continued Adult 50 Plus Probiotic 4 billion cell capsule 4,000 mmu cells PO DAILY Rx Instructions: administer with a meal famotidine [Zantac-360 (famotidine)] 20 mg tablet 20 mg PO QDAY metoprolol succinate [Toprol XL] 50 mg tablet extended release 24 hr 50 mg PO QDAY Qty: 90 3RF levothyroxine 75 mcg tablet 50 mcg PO QDAY Multivitamins,Therapeutic tablet 1 tab PO DAILY Calcium Carbonate/Vitamin D tablet 1 tab PO DAILY Referrals / Follow Up: Lela Interiano NP, TEST BAKER-C [Primary Care Provider] - Within 1 Week Disposition Disposition (needs filled in before D/C Order can be placed): Home, Self Care 05/22/25 1206Joseph Lindsey MD CC: BRYANC Lela Interiano; Dr. Isaiah Lerner MD; Dr. Najma Cates MD; Dr. Brian Negrete MD ~ Signed [facility]08-11-2025 Radiology Diagnostic study note [facility] [address] [place] [address] Abdomen/Pelvis WITH Contrast MR#: [id number] Acct: [id number] Name: LUZ CLANCY Rep #: [id number] : 1940 F 85 From: Diego Perez MD PCP: MARILEE Partida Status: ADM IN Study:Abdomen/Pelvis WITH Contrast Date of Ex am: 05/22/25 Exam# [id number] Ordering Dr: Isaiah Gresham MD PROCEDURE: ABDOMEN/PELVIS WITH CONTRAST 05/22/2025 REASON FOR EXAM: SBO History of uterine cancer. TECHNIQUE: ABDOMEN/PELVIS WITH CONTRAST Coronal and Sagittal reconstruction series were provided. CONTRAST: Isovue-300 VOLUME: 95 mL One or more dose reduction techniques were used (e.g., Automated exposure control, adjustment of the mA and/or kV according to patient size, use of iterative reconstruction technique. RADIATION DOSE SUMMARY: CTDlvol: 9.6 mGy DLP: 469.04 mGycm COMPARISON: Prior study dated May 18, 2025. FINDINGS: Lung bases: Stable 9 mm nodule in the anterior aspect of the left lower lobe abutting the heart shadow. Increased linear markings at the lung bases suggestive of atelectasis and/or scarring. Liver: Diffuse fatty infiltration. Gallbladder: Sludge is seen within the gallbladder lumen. Spleen: Normal size. Pancreas: Diffuse fatty atrophy. Adrenals: Unremarkable Kidneys: Stable 1 cm cyst in the peripheral lateral aspect of the right kidney. Bladder: Unremarkable Reproductive Organs: Prior hysterectomy. Adnexal regions are unremarkable. Bowel: No bowel obstruction. Sigmoid diverticulosis. Appendix: The appendix is not identified. There is no inflammatory process identified in the right lower quadrant to suggest appendicitis. Lymph nodes: Unremarkable. Vasculature: Mild diffuse atherosclerotic calcifications are noted. Peritoneum / Retroperitoneum: Unremarkable Bones: Degenerative changes of the spine. CT/Abdomen/Pelvis WITH Contrast IMPRESSION: No evidence of bowel obstruction. Sigmoid diverticulosis. Stable 9 mm nodule in the anterior aspect of the left lower lobe abutting the heart. Reading Location: [place] [address] CC: TEST BAKERShahbaz Interiano; Dr. Isaiah Lerner MD ~ Rug Receiving Clerk: Signed [facility]08-10-2025 Progress note Author Geovanna Nino [facility] Note Date/Time May 21, 2025 9: 36am [facility] Medical Records Department [address] [place] [address] Progress Note - Surgery 05/21/2534 MR#: [id number] Acct: [id number] Name: LUZ CLANCY Rep #:[id number] : 1940 85 From: Geovanna Nino MD PCP: MARILEE Partida Status:ADM IN Location: [place] [address] Subjective Subjective Patient states she still having abdominal bloating and abdominal pain did have alittle bit of clears yesterday with no vomiting and minimal nausea. Patient still having flatus and had 2 very small bowel movements?patient also had an episode similar about 6 weeks ago. Objective Data Objective Data Vital Signs: Vital Signs Temp Pulse Resp BP Pulse Ox O2 Del Method 97.4 F L 112 H 18 165/92 H 97 Room Air 05/21/25 09:21 05/21/25 09:23 05/21/25 09:21 05/21/25 09:21 05/21/25 09:21 05/21/25 09:21 Oxygen Delivery Method Room Air Weight: 124 lb 1.924 oz Body Mass Index (BMI) 20.6 Intake & Output: Intake and Output for Last 24 Hours 05/19/25 05/20/25 05/21/25 23:59 23:59 23:59 Intake Total 1200 / 1200 1180 / 1280 220 / 220 Balance 1200 / 1200 1180 / 1280 220 / 220 Lab / Micro Data 05/21/25 05:40 05/21/25 05:40 Labs: Laboratory Results - last 24 hr 05/21/25 05:40: WBC 5.4, RBC 3.58 L, Hgb 10.1 L, Hct 30.9 L, MCV 86.3, MCH 28.2,MCHC 32.7, RDW Std Deviation 42.6, RDW Coeff of Karthikeyan 13.6, Plt Count 305, MPV 11.5, Immature Gran % (Auto) 0.400, Neut % (Auto) 71.3 H, Lymph % (Auto) 13.8 L,Elk % (Auto) 13.2 H, Eos % (Auto) 1.1, Baso % (Auto) 0.2, Absolute Neuts (auto)3.8, Absolute Lymphs (auto) 0.74 L, Nucleated RBC % 0, Sodium 134, Potassium 3.1L, Chloride 100, Carbon Dioxide 18.9 L, Anion Gap 15, BUN 13, Creatinine 0.73, Estim Creat Clear Calc 46.53 L, Est GFR (MDRD) Non-Af 81, BUN/Creatinine Ratio 17.5, Glucose 91, Calcium 9.1, Magnesium 1.9 Physical Exam Const oriented x3 and no apparent distress Resp normal respiratory effort Cardio regular rate GI soft to palpation GI Narrative: Mild distention, tender diffuse?mild, no peritoneal signs Assessment & Plan Assessment/Plan (1) Intractable nausea and vomiting: PLAN: Patient still having abdominal bloating and pain did have a small bowel movement and passing flatus. Patient's back sips and chips KUB pending. Likelywill still go ahead with the diagnostic laparoscopy by Dr. Lerner tomorrow--did add onto the OR schedule. Geovanna Nino M.D. Pager: [phone] [facility] [address] [place] [address], [facility], [address] [place] [address] Office: [phone] Charges/Coding Multi Select Codes Visit Charges Visit Charges: 17830 Subs Hosp L2 05/21/25 0936 <Electronically signed by Geovanna Nino MD> Cosigner Signature (if applicable): CC: ~ Signed [facility] Work Phone: 1(678) 778-765008-10-2025 Radiology Diagnostic study note [facility] [address] [place] [address] Abd Inc Decub and/or Erect MR#: [id number] Acct: [id number] Name: LUZ CLANCY Rep #: [id number] : 1940 F 85 From: Maribeth Kent MD PCP: MARILEE Partida Status: ADM IN Study:Abd Inc Decub and/or Erect Date of Exam : 05/21/25 Exam# [id number] Ordering Dr: Juan Manuel Negrete MD PROCEDURE: ABD INC DECUB AND/OR ERECT 05/21/2025 REASON FOR EXAM: SBO TECHNIQUE: ABD INC DECUB AND/OR ERECT FINDINGS: LUNG BASES: Lung bases clear where seen. BOWEL: The bowel gas pattern is nonspecific. No evidence of bowel obstruction. PERITONEUM/SOFT TISSUES: No appreciable free air. No abnormal calcifications. BONES: No acute osseous abnormality. Degenerative changes of the spine. Mild lumbar dextroscoliosis. RAD/Abd Inc Decub and/or Erect IMPRESSION: No acute abnormality. Reading Location: [id number] CC: SOURAV-C Lela Interiano; Dr. Brian Negrete MD ~ Rug Receiving Clerk: Signed [facility]08-10-2025 Progress note Author Brian Negrete [facility] Note Date/Time May 21, 2025 8: 53am [facility] Medical Records Department [address] [place] [address] Progress Note - Hospitalist 05/21/25 0831 MR#: [id number] Acct: [id number] Name: LUZ CLANCY Rep #:[id number] : 1940 85 From: Brian Negrete MD PCP: MARILEE Partida Status:ADM IN Location: [place] [address] Reason for Visit Chief Complaint: Abdominal pain, bloating, N/V. Subjective Subjective Patient was started on clear liquids by general surgery the day prior. Diagnostic data reviewed this a.m. significant for hemoglobin of 10.1 and potassium of 3.1. Patient seen complains of abdominal distention and pain.. Decision was made to keep patient n.p.o. order checks x-ray Objective Data Objective Data Vital Signs: Vital Signs Temp Pulse Resp BP Pulse Ox O2 Del Method 98.4 F 76 16 138/75 H 97 Room Air 05/21/25 03:40 05/21/25 03:40 05/21/25 03:40 05/21/25 03:40 05/21/25 03:40 05/21/25 03:40 Oxygen Delivery Method Room Air Weight: 56.3 kg Body Mass Index (BMI) 20.6 Intake & Output: Intake and Output for Last 24 Hours 05/19/25 05/20/25 05/21/25 23:59 23:59 23:59 Intake Total 1200 / 1200 1180 / 1280 220 / 220 Balance 1200 / 1200 1180 / 1280 220 / 220 Lab / Micro Data 05/21/25 05:40 05/21/25 05:40 Labs: Laboratory Results - last 24 hr 05/21/25 05:40: WBC 5.4, RBC 3.58 L, Hgb 10.1 L, Hct 30.9 L, MCV 86.3, MCH 28.2,MCHC 32.7, RDW Std Deviation 42.6, RDW Coeff of Karthikeyan 13.6, Plt Count 305, MPV 11.5, Immature Gran % (Auto) 0.400, Neut % (Auto) 71.3 H, Lymph % (Auto) 13.8 L,Elk % (Auto) 13.2 H, Eos % (Auto) 1.1, Baso % (Auto) 0.2, Absolute Neuts (auto)3.8, Absolute Lymphs (auto) 0.74 L, Nucleated RBC % 0, Sodium 134, Potassium 3.1L, Chloride 100, Carbon Dioxide 18.9 L, Anion Gap 15, BUN 13, Creatinine 0.73, Estim Creat Clear Calc 46.53 L, Est GFR (MDRD) Non-Af 81, BUN/Creatinine Ratio 17.5, Glucose 91, Calcium 9.1 Physical Exam Narrative GENERAL: cooperative HEENT: Atraumatic; normocephalic EYES; Anicteric, Normal Conjunctiva NECK; supple, normal thyroid, RESPIRATORY: Diminished to auscultation CARDIOVASCULAR: Regular S1 S2, GI: Abdomen slightly distended, tympanitic to percussion : No Renal angle tenderness; EXTREMITIES: No edema, no clubbing, MUSCULOSKELETAL: no muscle wasting NEURO: Awake; no lateralizing signs. SKIN: No Rash PSYCH; Flat affect Assessment & Plan Assessment/Plan (1) Intractable nausea and vomiting: PLAN: Plan Patient is an 85-year-old lady who presented with abdominal pain with nausea andvomiting, imaging studies obtained on admission demonstrated Mildly prominentsmall bowel loops with air-fluid levels, likely acute enteritis or an ileus. Nodefinite transition point seen, however early/partial SBO is not excluded. Admitted to a monitored bed for subsequent eval 1. Partial small bowel obstruction ? Patient has been admitted to monitored bed. Managed with IV fluids, bowel rest with consultation placed to general surgery. Repeat KUB ordered this a.m.Demonstrated persistent small bowel obstruction with transition point in theED ? 05/20/2025 patient has return of bowel function with passing of gas, General surgery recommended initiation of oral diet with clear liquid to be advance as tolerated ? 05/21/2025; patient appears to have clinical recurrence of her small bowel obstruction. Patient was kept n.p.o. ordered abdominal series. Decision regarding possible Gastrografin small bowel follow-through study deferred to general surgery 2. Hypertension ? Blood pressure controlled, home medications held given patient emesis placed on hydralazine as needed for systolic blood pressure greater than 160 3. Hypothyroidism ? Plan is to resume patient home dose levothyroxine once she is able to tolerateoral diet 4.. History uterine/endometrial cancer - Status post total abdominal hysterectomy 2012 in addition to treatment with chemotherapy and radiation patient has since remained in remission 5. GERD ? On PPI 6. Anemia ? Secondary to chronic disorder monitoring H&H and transfuse if patient becomes symptomatic or hemoglobin falls below 7 05/20/2025; hemoglobin down to 9 point 7. DVT prophylaxis ? Subcu Lovenox. 8. Hypokalemia -Corrected per protocol, a.m. labs ordered to assess response to therapy Charges/Coding Visit Charges Inpatient E&M: 32263 Subs Hosp L2 05/21/25 0853 <Electronically signed by Brian Negrete MD> Cosigner Signature (if applicable): CC: ~ Signed [facility] Work Phone: 1(550) 926-820208-10-2025 Progress note [facility] Medical Records Department [address] [place] [address] Progress Note - Surgery 05/21/25 0934 MR#: [id number] Acct: [id number] Name: LUZ CLANCY Rep #:[id number] : 1940 85 From: Geovanna Nino MD PCP: MARILEE Partida Status:ADM IN Location: [place] [address] Subjective Subjective Patient states she still having abdominal bloating and abdominal pain did have alittle bit of clears yesterday with no vomiting and minimal nausea. Patient still having flatus and had 2 very small bowel movements?patient also had an episode similar about 6 weeks ago. Objective Data Objective Data Vital Signs: Vital Signs Temp Pulse Resp BP Pulse Ox O2 Del Method 97.4 F L 112 H 18 165/92 H 97 Room Air 05/21/25 09:21 05/21/25 09:23 05/21/25 09:21 05/21/25 09:21 05/21/25 09:21 05/21/25 09:21 Oxygen Delivery Method Room Air Weight: 124 lb 1.924 oz Body Mass Index (BMI) 20.6 Intake & Output: Intake and Output for Last 24 Hours 05/19/25 05/20/25 05/21/25 23:59 23:59 23:59 Intake Total 1200 / 1200 1180 / 1280 220 / 220 Balance 1200 / 1200 1180 / 1280 220 / 220 Lab / Micro Data 05/21/25 05:40 05/21/25 05:40 Labs: Laboratory Results - last 24 hr 05/21/25 05:40: WBC 5.4, RBC 3.58 L, Hgb 10.1 L, Hct 30.9 L, MCV 86.3, MCH 28.2,MCHC 32.7, RDW Std Deviation 42.6, RDW Coeff of Karthikeyan 13.6, Plt Count 305, MPV 11.5, Immature Gran % (Auto) 0.400, Neut %(Auto) 71.3 H, Lymph % (Auto) 13.8 L,Elk % (Auto) 13.2 H, Eos % (Auto) 1.1, Baso % (Auto) 0.2, Absolute Neuts (auto)3.8, Absolute Lymphs (auto) 0.74 L, Nucleated RBC % 0, Sodium 134, Potassium 3.1L,Chloride 100, Carbon Dioxide 18.9 L, Anion Gap 15, BUN 13, Creatinine 0.73, Estim Creat Clear Calc 46.53 L, Est GFR (MDRD) Non-Af 81, BUN/Creatinine Ratio 17.5, Glucose 91, Calcium 9.1, Magnesium 1.9 Physical Exam Const oriented x3 and no apparent distress Resp normal respiratory effort Cardio regular rate GI soft to palpation GI Narrative: Mild distention, tender diffuse?mild, no peritoneal signs Assessment & Plan Assessment/Plan (1) Intractable nausea and vomiting: PLAN: Patient still having abdominal bloating and pain did have a small bowel movement and passing flatus. Patient's back sips and chips KUB pending. Likelywill still go ahead with the diagnostic laparoscopy by Dr. Lerner tomorrow--did add onto the OR schedule. Geovanna Nino M.D. Pager: [phone] [facility] [address] [place] [address], [facility], [address] [place] [address] Office: [phone] Charges/Coding Multi Select Codes Visit Charges Visit Charges: 09083 Subs Hosp L2 05/21/25 0936 Cosigner Signature (if applicable): CC: ~ Signed [facility]08-10-2025 Progress note [facility] Medical Records Department [address] [place] [address] Progress Note - Hospitalist 05/21/25830 MR#: [id number] Acct: [id number] Name: LUZ CLANCY Rep #:[id number] : 1940 85 From: Brian Negrete MD PCP: MARILEE Partida Status:ADM IN Location: [place] [address] Reason for Visit Chief Complaint: Abdominal pain, bloating, N/V. Subjective Subjective Patient was started on clear liquids by general surgery the day prior. Diagnostic data reviewed this a.m. significant for hemoglobin of 10.1 and potassium of 3.1. Patient seen complains of abdominal distention and pain.. Decision was made to keep patient n.p.o. order checks x-ray Objective Data Objective Data Vital Signs: Vital Signs Temp Pulse Resp BP Pulse Ox O2 Del Method 98.4 F 76 16 138/75 H 97 Room Air 05/21/25 03:40 05/21/25 03:40 05/21/25 03:40 05/21/25 03:40 05/21/25 03:40 05/21/25 03:40 Oxygen Delivery Method Room Air Weight: 56.3 kg Body Mass Index (BMI) 20.6 Intake & Output: Intake and Output for Last 24 Hours 05/19/25 05/20/25 05/21/25 23:59 23:59 23:59 Intake Total 1200 / 1200 1180 / 1280 220 / 220 Balance 1200 / 1200 1180 / 1280 220 / 220 Lab / Micro Data 05/21/25 05:40 05/21/25 05:40 Labs: Laboratory Results - last 24 hr 05/21/25 05:40: WBC 5.4, RBC 3.58 L, Hgb 10.1 L, Hct 30.9 L, MCV 86.3, MCH 28.2,MCHC 32.7, RDW Std Deviation 42.6, RDW Coeff of Karthikeyan 13.6, Plt Count 305, MPV 11.5, Immature Gran % (Auto) 0.400, Neut %(Auto) 71.3 H, Lymph % (Auto) 13.8 L,Elk % (Auto) 13.2 H, Eos % (Auto) 1.1, Baso % (Auto) 0.2, Absolute Neuts (auto)3.8, Absolute Lymphs (auto) 0.74 L, Nucleated RBC % 0, Sodium 134, Potassium 3.1L,Chloride 100, Carbon Dioxide 18.9 L, Anion Gap 15, BUN 13, Creatinine 0.73, Estim Creat Clear Calc 46.53 L, Est GFR (MDRD) Non-Af 81, BUN/Creatinine Ratio 17.5, Glucose 91, Calcium 9.1 Physical Exam Narrative GENERAL: cooperative HEENT: Atraumatic; normocephalic EYES; Anicteric, Normal Conjunctiva NECK; supple, normal thyroid, RESPIRATORY: Diminished to auscultation CARDIOVASCULAR: Regular S1 S2, GI: Abdomen slightly distended, tympanitic to percussion : No Renal angle tenderness; EXTREMITIES: No edema, no clubbing, MUSCULOSKELETAL: no muscle wasting NEURO: Awake; no lateralizing signs. SKIN: No Rash PSYCH; Flat affect Assessment & Plan Assessment/Plan (1) Intractable nausea and vomiting: PLAN: Plan Patient is an 85-year-old lady who presented with abdominal pain with nausea andvomiting, imaging studies obtained on admission demonstrated Mildly prominentsmall bowel loops with air-fluid levels, likely acute enteritis or an ileus. Nodefinite transition point seen, however early/partial SBO is not excluded. Admitted to a monitored bed for subsequent eval 1. Partial small bowel obstruction ? Patient has been admitted to monitored bed. Managed with IV fluids, bowel rest with consultation placed to general surgery. Repeat KUB ordered this a.m.Demonstrated persistent small bowel obstruction with transition point in theED ? 05/20/2025 patient has return of bowel function with passing of gas, General surgery recommended initiation of oral diet with clear liquid to be advance as tolerated ? 05/21/2025; patient appears to have clinical recurrence of her small bowel obstruction. Patient was kept n.p.o. ordered abdominal series. Decision regarding possible Gastrografin small bowel follow-through study deferred to general surgery 2. Hypertension ? Blood pressure controlled, home medications held given patient emesis placed on hydralazine as needed for systolic blood pressure greater than 160 3. Hypothyroidism ? Plan is to resume patient home dose levothyroxine once she is able to tolerateoral diet 4.. History uterine/endometrial cancer - Status post total abdominal hysterectomy 2012 in addition to treatment with chemotherapy and radiation patient has since remained in remission 5. GERD ? On PPI 6. Anemia ? Secondary to chronic disorder monitoring H&H and transfuse if patient becomes symptomatic or hemoglobin falls below 7 05/20/2025; hemoglobin down to 9 point 7. DVT prophylaxis ? Subcu Lovenox. 8. Hypokalemia -Corrected per protocol, a.m. labs ordered to assess response to therapy Charges/Coding Visit Charges Inpatient E&M: 25135 Subs Hosp L2 05/21/25 0853 Cosigner Signature (if applicable): CC: ~ Signed [facility]08-09-2025 Progress note Author Brian Negrete [facility] Note Date/Time May 20, 2025 10: 28am [facility] Medical Records Department [facility] [place] [address] Progress Note - Hospitalist 05/20/25 0729 MR#: [id number] Acct: [id number] Name: LUZ CLANCY Rep #:[id number] : 1940 85 From: Brian Negrete MD PCP: MARILEE Partida Status:ADM IN Location: [place] [address] Reason for Visit Chief Complaint: Abdominal pain, bloating, N/V. Subjective Subjective Patient seen admitted passing gas. Started on clear liquids by general surgery. Patient blood pressure remains elevated restarted patient home meds Objective Data Objective Data Vital Signs: Vital Signs Temp Pulse Resp BP Pulse Ox O2 Del Method 98.3 F 72 14 107/63 96 Room Air 05/20/25 03:24 05/20/25 03:24 05/20/25 03:24 05/20/25 03:24 05/20/25 03:24 05/20/25 03:24 Oxygen Delivery Method Room Air Weight: 55.5 kg Body Mass Index (BMI) 20.3 Intake & Output: Intake and Output for Last 24 Hours 05/18/25 05/19/25 05/20/25 23:59 23:59 23:59 Intake Total 2099 1200 / 1200 Balance 2099 1200 / 1200 Lab / Micro Data 05/20/25 06:02 05/20/25 06:02 Labs: Laboratory Results - last 24 hr 05/19/25 06:39: WBC 6.3, RBC 3.68 L, Hgb 10.3 L, Hct 32.1 L, MCV 87.2, MCH 28.0,MCHC 32.1, RDW Std Deviation 43.3, RDW Coeff of Karthikeyan 13.7, Plt Count 334, MPV 11.7, Immature Gran % (Auto) 0.200, Neut % (Auto) 79.3 H, Lymph % (Auto) 6.6 L, Elk % (Auto) 12.8 H, Eos % (Auto) 0.6, Baso % (Auto) 0.5, Absolute Neuts (auto)5.0, Absolute Lymphs (auto) 0.42 L, Nucleated RBC % 0, Sodium 133, Potassium 3.8, Chloride 101, Carbon Dioxide 20.0 L, Anion Gap 12, BUN 14, Creatinine 0.60 L, Estim Creat Clear Calc 47.10 L, Est GFR (MDRD) Non-Af 88, BUN/Creatinine Ratio 22.8 H, Glucose 115 H, Hemoglobin A1c 6.1 H, Calcium 8.9, Total Bilirubin 0.53, AST 26, ALT 10, Alkaline Phosphatase 74, Total Protein 6.6, Albumin 3.6, Globulin 3.0, Albumin/Globulin Ratio 1.2 05/20/25 06:02: WBC 4.5, RBC 3.36 L, Hgb 9.4 L, Hct 29.6 L, MCV 88.1, MCH 28.0, MCHC 31.8 L, RDW Std Deviation 45.1 H, RDW Coeff of Karthikeyan 14.0, Plt Count 300, MPV11.0, Immature Gran % (Auto) 0.200, Neut % (Auto) 67.1, Lymph % (Auto) 13.8 L, Elk % (Auto) 16.2 H, Eos % (Auto) 2.0, Baso % (Auto) 0.7, Absolute Neuts (auto) 3.0, Absolute Lymphs (auto) 0.62 L, Nucleated RBC % 0, Sodium 135, Potassium 3.5, Chloride 103, Carbon Dioxide 17.7 L, Anion Gap 14, BUN 17, Creatinine 0.79,Estim Creat Clear Calc 45.86 L, Est GFR (MDRD) Non-Af 73, BUN/Creatinine Ratio 21.5 H, Glucose 77, Calcium 8.8, Phosphorus 3.0, Magnesium 2.0 Radiography Diagnostic Testing: Radiology Impression KUB X-Ray 05/20/25 04:35 IMPRESSION: Findings again suggest a partial distal small-bowel obstruction. Reading Location: [place] [address] Physical Exam Narrative GENERAL: cooperative HEENT: Atraumatic; normocephalic EYES; Anicteric, Normal Conjunctiva NECK; supple, normal thyroid, RESPIRATORY: Diminished to auscultation CARDIOVASCULAR: Regular S1 S2, GI: Abdomen nondistended : No Renal angle tenderness; EXTREMITIES: No edema, no clubbing, MUSCULOSKELETAL: no muscle wasting NEURO: Awake; no lateralizing signs. SKIN: No Rash PSYCH; Flat affect Assessment & Plan Assessment/Plan (1) Intractable nausea and vomiting: PLAN: Plan Patient is an 85-year-old lady who presented with abdominal pain with nausea andvomiting, imaging studies obtained on admission demonstrated Mildly prominentsmall bowel loops with air-fluid levels, likely acute enteritis or an ileus. Nodefinite transition point seen, however early/partial SBO is not excluded. Admitted to a monitored bed for subsequent eval 1. Partial small bowel obstruction ? Patient has been admitted to monitored bed. Managed with IV fluids, bowel rest with consultation placed to general surgery. Repeat KUB ordered this a.m.Demonstrated persistent small bowel obstruction with transition point in theED ? 05/20/2025 patient has return of bowel function with passing of gas, General surgery recommended initiation of oral diet with clear liquid to be advance as tolerated 2. Hypertension ? Blood pressure controlled, home medications held given patient emesis placed on hydralazine as needed for systolic blood pressure greater than 160 3. Hypothyroidism ? Plan is to resume patient home dose levothyroxine once she is able to tolerateoral diet 4.. History uterine/endometrial cancer - Status post total abdominal hysterectomy 2012 in addition to treatment with chemotherapy and radiation patient has since remained in remission 5. GERD ? On PPI 6. Anemia ? Secondary to chronic disorder monitoring H&H and transfuse if patient becomes symptomatic or hemoglobin falls below 7 05/20/2025; hemoglobin down to 9 point 7. DVT prophylaxis ? Subcu Lovenox. Charges/Coding Visit Charges Inpatient E&M: 91088 Subs Hosp L2 05/20/25 1028 <Electronically signed by Brian Negrete MD> Cosigner Signature (if applicable): CC: ~ Signed [facility] Work Phone: 1(988) 314-516108-09-2025 Progress note Author Geovanna Nino [facility] Note Date/Time May 20, 2025 8:4 0am [facility] Medical Records Department [address] [place] [address] Progress Note - Surgery 05/20/25 0838 MR#: [id number] Acct: [id number] Name: LUZ CLANCY Rep #:[id number] : 1940 85 From: Geovanna Nino MD PCP: MARILEE Partida Status:ADM IN Location: [place] [address] Subjective Subjective Patient is having flatus and walking in halls. Patient denies any nausea or vomiting currently. Still states she is little bit bloated. Objective Data Objective Data Vital Signs: Vital Signs Temp Pulse Resp BP Pulse Ox O2 Del Method 97.7 F L 125 H 16 154/97 H 98 Room Air 05/20/25 08:28 05/20/25 08:32 05/20/25 08:28 05/20/25 08:32 05/20/25 08:28 05/20/25 08:28 Oxygen Delivery Method Room Air Weight: 122 lb 5.705 oz Body Mass Index (BMI) 20.3 Intake & Output: Intake and Output for Last 24 Hours 05/18/25 05/19/25 05/20/25 23:59 23:59 23:59 Intake Total 2099 / 2099 1200 / 1200 Balance 2099 1200 / 1200 Lab / Micro Data 05/20/25 06:02 05/20/25 06:02 Labs: Laboratory Results - last 24 hr 05/19/25 06:39: Hemoglobin A1c 6.1 H 05/20/25 06:02: WBC 4.5, RBC 3.36 L, Hgb 9.4 L, Hct 29.6 L, MCV 88.1, MCH 28.0, MCHC 31.8 L, RDW Std Deviation 45.1 H, RDW Coeff of Karthikeyan 14.0, Plt Count 300, MPV11.0, Immature Gran % (Auto) 0.200, Neut % (Auto) 67.1, Lymph % (Auto) 13.8 L, Elk % (Auto) 16.2 H, Eos % (Auto) 2.0, Baso % (Auto) 0.7, Absolute Neuts (auto) 3.0, Absolute Lymphs (auto) 0.62 L, Nucleated RBC % 0, Sodium 135, Potassium 3.5, Chloride 103, Carbon Dioxide 17.7 L, Anion Gap 14, BUN 17, Creatinine 0.79,Estim Creat Clear Calc 45.86 L, Est GFR (MDRD) Non-Af 73, BUN/Creatinine Ratio 21.5 H, Glucose 77, Calcium 8.8, Phosphorus 3.0, Magnesium 2.0 Radiography Diagnostic Testing: Radiology Impression KUB X-Ray 05/20/25 04:35 IMPRESSION: Findings again suggest a partial distal small-bowel obstruction. Reading Location: [place] [address] Physical Exam Const oriented x3 and no apparent distress Resp normal respiratory effort Cardio regular rate GI soft to palpation GI Narrative: Mild distention, nontender, no peritoneal signs Assessment & Plan Assessment/Plan (1) Intractable nausea and vomiting: PLAN: Patient's KUB does look slightly improved to me and patient is having flatus we will start clears and still encourage ambulation. Geovanna Nino M.D. Pager: [phone] [facility] [address] [place] [address], [facility], [address] [place] [id number] Office: [phone] Charges/Coding Visit Charges Inpatient E&M: 16194 Subs Hosp L2 05/20/25 0840 <Electronically signed by Geovanna Nino MD> Yaniigner Signature (if applicable): CC: ~ Signed [facility] Work Phone: 1(878) 632-126908-09-2025 Progress note [facility] Medical Records Department [address] [place] [address] Progress Note - Hospitalist 05/20/25728 MR#: [id number] Acct: [id number] Name: LUZ CLANCY Rep #:[id number] : 1940 85 From: Brian Negrete MD PCP: MARILEE Partida Status:ADM IN Location: [place] [address] Reason for Visit Chief Complaint: Abdominal pain, bloating, N/V. Subjective Subjective Patient seen admitted passing gas. Started on clear liquids by general surgery. Patient blood pressure remains elevated restarted patient home meds Objective Data Objective Data Vital Signs: Vital Signs Temp Pulse Resp BP Pulse Ox O2 Del Method 98.3 F 72 14 107/63 96 Room Air 05/20/25 03:24 05/20/25 03:24 05/20/25 03:24 05/20/25 03:24 05/20/25 03:24 05/20/25 03:24 Oxygen Delivery Method Room Air Weight: 55.5 kg Body Mass Index (BMI) 20.3 Intake & Output: Intake and Output for Last 24 Hours 05/18/25 05/19/25 05/20/25 23:59 23:59 23:59 Intake Total 2099 1200 / 1200 Balance 2099 1200 / 1200 Lab / Micro Data 05/20/25 06:02 05/20/25 06:02 Labs: Laboratory Results - last 24 hr 05/19/25 06:39: WBC 6.3, RBC 3.68 L, Hgb 10.3 L, Hct 32.1 L, MCV 87.2, MCH 28.0,MCHC 32.1, RDW Std Deviation 43.3, RDW Coeff of Karthikeyan 13.7, Plt Count 334, MPV 11.7, Immature Gran % (Auto) 0.200, Neut %(Auto) 79.3 H, Lymph % (Auto) 6.6 L, Elk % (Auto) 12.8 H, Eos % (Auto) 0.6, Baso % (Auto) 0.5, Absolute Neuts (auto)5.0, Absolute Lymphs (auto) 0.42 L, Nucleated RBC % 0, Sodium 133, Potassium 3.8, Chloride 101, Carbon Dioxide 20.0 L, Anion Gap 12, BUN 14, Creatinine 0.60 L, Estim Creat Clear Calc47.10 L, Est GFR (MDRD) Non-Af 88, BUN/Creatinine Ratio 22.8 H, Glucose 115 H, Hemoglobin A1c 6.1 H, Calcium 8.9, Total Bilirubin 0.53, AST 26, ALT 10, Alkaline Phosphatase 74, Total Protein 6.6, Albumin 3.6, Globulin 3.0, Albumin/Globulin Ratio 1.2 05/20/25 06:02: WBC 4.5, RBC 3.36 L, Hgb 9.4 L, Hct 29.6 L, MCV 88.1, MCH 28.0, MCHC 31.8 L, RDW Std Deviation 45.1 H, RDW Coeff of Karthikeyan 14.0, Plt Count 300, MPV11.0, Immature Gran % (Auto) 0.200, Neut % (Auto) 67.1, Lymph % (Auto) 13.8 L, Elk % (Auto) 16.2 H, Eos % (Auto) 2.0, Baso % (Auto) 0.7, Absolute Neuts (auto) 3.0, Absolute Lymphs (auto) 0.62 L, Nucleated RBC % 0, Sodium 135, Potassium 3.5, Chloride 103, Carbon Dioxide 17.7 L, Anion Gap 14, BUN 17, Creatinine 0.79,Estim Creat Clear Calc45.86 L, Est GFR (MDRD) Non-Af 73, BUN/Creatinine Ratio 21.5 H, Glucose 77, Calcium 8.8, Phosphorus3.0, Magnesium 2.0 Radiography Diagnostic Testing: Radiology Impression KUB X-Ray 05/20/25 04:35 IMPRESSION: Findings again suggest a partial distal small-bowel obstruction. Reading Location: [place] [address] Physical Exam Narrative GENERAL: cooperative HEENT: Atraumatic; normocephalic EYES; Anicteric, Normal Conjunctiva NECK; supple, normal thyroid, RESPIRATORY: Diminished to auscultation CARDIOVASCULAR: Regular S1 S2, GI: Abdomen nondistended : No Renal angle tenderness; EXTREMITIES: No edema, no clubbing, MUSCULOSKELETAL: no muscle wasting NEURO: Awake; no lateralizing signs. SKIN: No Rash PSYCH; Flat affect Assessment & Plan Assessment/Plan (1) Intractable nausea and vomiting: PLAN: Plan Patient is an 85-year-old lady who presented with abdominal pain with nausea andvomiting, imaging studies obtained on admission demonstrated Mildly prominentsmall bowel loops with air-fluid levels, likely acute enteritis or an ileus. Nodefinite transition point seen, however early/partial SBO is not excluded. Admitted to a monitored bed for subsequent eval 1. Partial small bowel obstruction ? Patient has been admitted to monitored bed. Managed with IV fluids, bowel rest with consultation placed to general surgery. Repeat KUB ordered this a.m.Demonstrated persistent small bowel obstruction with transition point in theED ? 05/20/2025 patient has return of bowel function with passing of gas, General surgery recommended initiation of oral diet with clear liquid to be advance as tolerated 2. Hypertension ? Blood pressure controlled, home medications held given patient emesis placed on hydralazine as needed for systolic blood pressure greater than 160 3. Hypothyroidism ? Plan is to resume patient home dose levothyroxine once she is able to tolerateoral diet 4.. History uterine/endometrial cancer - Status post total abdominal hysterectomy 2012 in addition to treatment with chemotherapy and radiation patient has since remained in remission 5. GERD ? On PPI 6. Anemia ? Secondary to chronic disorder monitoring H&H and transfuse if patient becomes symptomatic or hemoglobin falls below 7 05/20/2025; hemoglobin down to 9 point 7. DVT prophylaxis ? Subcu Lovenox. Charges/Coding Visit Charges Inpatient E&M: 00372 Subs Hosp L2 05/20/25 1028 Cosigner Signature (if applicable): CC: ~ Signed [facility]08-09-2025 Progress note [facility] Medical Records Department [address] [place] [address] Progress Note - Surgery 05/20/25 0838 MR#: [id number] Acct: [id number] Name: LUZ CLANCY Rep #:[id number] : 1940 85 From: Geovanna Nino MD PCP: MARILEE Partida Status:ADM IN Location: [place] [address] Subjective Subjective Patient is having flatus and walking in halls. Patient denies any nausea or vomiting currently. Still states she is little bit bloated. Objective Data Objective Data Vital Signs: Vital Signs Temp Pulse Resp BP Pulse Ox O2 Del Method 97.7 F L 125 H 16 154/97 H 98 Room Air 05/20/25 08:28 05/20/25 08:32 05/20/25 08:28 05/20/25 08:32 05/20/25 08:28 05/20/25 08:28 Oxygen Delivery Method Room Air Weight: 122 lb 5.705 oz Body Mass Index (BMI) 20.3 Intake & Output: Intake and Output for Last 24 Hours 05/18/25 05/19/25 05/20/25 23:59 23:59 23:59 Intake Total 2100 / 2100 1200 / 1200 Balance 2100 / 2100 1200 / 1200 Lab / Micro Data 05/20/25 06:02 05/20/25 06:02 Labs: Laboratory Results - last 24 hr 05/19/25 06:39: Hemoglobin A1c 6.1 H 05/20/25 06:02: WBC 4.5, RBC 3.36 L, Hgb 9.4 L, Hct 29.6 L, MCV 88.1, MCH 28.0, MCHC 31.8 L, RDW Std Deviation 45.1 H, RDW Coeff of Karthikeyan 14.0, Plt Count 300, MPV11.0, Immature Gran % (Auto) 0.200, Neut % (Auto) 67.1, Lymph % (Auto) 13.8 L, Elk % (Auto) 16.2 H, Eos % (Auto) 2.0, Baso % (Auto) 0.7, Absolute Neuts (auto) 3.0, Absolute Lymphs (auto) 0.62 L, Nucleated RBC % 0, Sodium 135, Potassium 3.5, Chloride 103, Carbon Dioxide 17.7 L, Anion Gap 14, BUN 17, Creatinine 0.79,Estim Creat Clear Calc45.86 L, Est GFR (MDRD) Non-Af 73, BUN/Creatinine Ratio 21.5 H, Glucose 77, Calcium 8.8, Phosphorus3.0, Magnesium 2.0 Radiography Diagnostic Testing: Radiology Impression KUB X-Ray 05/20/25 04:35 IMPRESSION: Findings again suggest a partial distal small-bowel obstruction. Reading Location: [facility] Physical Exam Const oriented x3 and no apparent distress Resp normal respiratory effort Cardio regular rate GI soft to palpation GI Narrative: Mild distention, nontender, no peritoneal signs Assessment & Plan Assessment/Plan (1) Intractable nausea and vomiting: PLAN: Patient's KUB does look slightly improved to me and patient is having flatus we will start clears and still encourage ambulation. Geovanna Nino M.D. Pager: [phone] [facility] [address] [place] [address], [facility], [address] [place] [address] Office: [phone] Charges/Coding Visit Charges Inpatient E&M: 09452 Subs Hosp L2 05/20/25 0840 Cosigner Signature (if applicable): CC: ~ Signed [facility]08-09-2025 Radiology Diagnostic study note [facility] Imaging Services [address] [place] [address] Abdomen Single View (Portable) MR#: [id number] Acct: [id number] Name: LUZ CLANCY Rep #: [id number] : 1940 F 85 From: Katharine Kingsley MD PCP: MARILEE Partida Status: ADM IN Study:Abdomen Single View (Portable) Date of Exam: 05/20/25 Exam# [id number] Ordering Dr: Geovanna Nino MD PROCEDURE: ABDOMEN SINGLE VIEW (PORTABLE) 05/20/2025 REASON FOR EXAM: SBO TECHNIQUE: ABDOMEN SINGLE VIEW (PORTABLE) COMPARISON: 05/19/2025 FINDINGS: Left base linear scar/atelectasis. No free air. Stomach and proximal small bowels are nondistended.There is redemonstration of distended distal small bowel. Nondistended large bowel. Lumbar spine scoliosis and degeneration. RAD/Abdomen Single View (Portable) IMPRESSION: Findings again suggest a partial distal small-bowel obstruction. Reading Location: [facility] CC: TEST BAKER-C Lela Interiano; Dr. Geovanna Nino MD ~ Rug Receiving Clerk: Signed [facility]08-08-2025 Progress note Author Brian Negrete [facility] Note Date/Time May 19, 2025 9:2 3am [facility] Medical Records Department [address] [place] [address] Progress Note - Hospitalist 05/19/25 0748 MR#: [id number] Acct: [id number] Name: LUZ CLANCY Rep #:[id number] : 1940 85 From: Brian Negrete MD PCP: MARILEE Partida Status:ADM [place] Location: [place] [address] Reason for Visit Chief Complaint: Abdominal pain, bloating, N/V. Subjective Subjective Patient is an 85-year-old lady who presented with abdominal pain with nausea andvomiting, imaging studies obtained on admission demonstrated Mildly prominentsmall bowel loops with air-fluid levels, likely acute enteritis or an ileus. Nodefinite transition point seen, however early/partial SBO is not excluded. Admitted to a monitored bed for subsequent eval Objective Data Objective Data Vital Signs: Vital Signs Temp Pulse Resp BP Pulse Ox O2 Del Method 99.1 F 80 17 162/83 H 98 Room Air 05/19/25 07:41 05/19/25 07:41 05/19/25 07:41 05/19/25 07:41 05/19/25 07:41 05/19/25 07:41 Oxygen Delivery Method Room Air Weight: 57.6 kg Body Mass Index (BMI) 21.1 Intake & Output: Intake and Output for Last 24 Hours 05/17/25 05/18/25 05/19/25 23:59 23:59 23:59 Intake Total 2099 Balance 2099 Lab / Micro Data 05/19/25 06:39 05/19/25 06:39 Labs: Laboratory Results - last 24 hr 05/18/25 17:55: WBC 14.2 H, RBC 4.35, Hgb 12.2, Hct 37.0, MCV 85.1, MCH 28.0, MCHC 33.0, RDW Std Deviation 41.1, RDW Coeff of Karthikeyan 13.2, Plt Count 364, MPV 11.9, Immature Gran % (Auto) 0.200, Neut % (Auto) 91.6 H, Lymph % (Auto) 3.3 L, Elk % (Auto) 4.6, Eos % (Auto) 0.0, Baso % (Auto) 0.3, Absolute Neuts (auto) 13.0 H, Absolute Lymphs (auto) 0.47 L, Nucleated RBC % 0, Sodium 132 L, Potassium 4.0, Chloride 94 L, Carbon Dioxide 18.0 L, Anion Gap 20 H, BUN 15, Creatinine 0.78, Estim Creat Clear Calc 47.10 L, Est GFR (MDRD) Non-Af 75, BUN/Creatinine Ratio 19.4, Glucose 152 H, Calcium 10.1, Total Bilirubin 0.54, AST 44 H, ALT 16, Alkaline Phosphatase 93, Total Protein 8.6 H, Albumin 4.5, Globulin 4.1, Albumin/Globulin Ratio 1.1, Lipase 32 05/18/25 18:57: Urine Color Straw, Urine Clarity Sl. Cloudy, Urine pH 7.0, Ur Specific [place] 1.010, Urine Protein 30 H, Urine Glucose (UA) Normal, Urine Ketones 15 H, Urine Occult Blood 25 H, Urine Nitrite Negative, Urine Bilirubin Negative, Urine Urobilinogen Normal, Ur Leukocyte Esterase 100 H, Urine RBC 0-5 SEEN, Urine WBC 0-5 SEEN, Ur Squamous Epith Cells 0-5 SEEN, Urine Bacteria 0 SEEN, Urine Mucus 0 SEEN 05/18/25 19:10: Lactic Acid 1.9 05/18/25 22:24: Sodium 134, Potassium 3.5, Chloride 102, Carbon Dioxide 15.1 L, Anion Gap 17 H, BUN 11, Creatinine 0.56 L, Estim Creat Clear Calc 47.10 L, Est GFR (MDRD) Non-Af 90, BUN/Creatinine Ratio 19.6, Glucose 148 H, Calcium 8.0 05/19/25 06:39: WBC 6.3, RBC 3.68 L, Hgb 10.3 L, Hct 32.1 L, MCV 87.2, MCH 28.0,MCHC 32.1, RDW Std Deviation 43.3, RDW Coeff of Karthikeyan 13.7, Plt Count 334, MPV 11.7, Immature Gran % (Auto) 0.200, Neut % (Auto) 79.3 H, Lymph % (Auto) 6.6 L, Elk % (Auto) 12.8 H, Eos % (Auto) 0.6, Baso % (Auto) 0.5, Absolute Neuts (auto)5.0, Absolute Lymphs (auto) 0.42 L, Nucleated RBC % 0 Radiography Diagnostic Testing: Radiology Impression Abdomen/Pelvis CT 05/18/25 18:14 IMPRESSION: 1. Mildly prominent small bowel loops with air-fluid levels, likely acute enteritis or an ileus. No definite transition point seen, however early/partial SBO is not excluded. 2. Colonic diverticulosis without signs of diverticulitis. 3. Small hyperdense left renal lesion, may represent a complex cyst. 4. Bilateral pulmonary nodules, with no significant change since the prior study Reading Location: [id number] KUB X-Ray 05/19/25 04:50 IMPRESSION: Persistent small-bowel obstruction, transition point in the ileum. Refer to recent CT report. Reading Location: [place] [address] Physical Exam Narrative GENERAL: cooperative HEENT: Atraumatic; normocephalic EYES; Anicteric, Normal Conjunctiva NECK; supple, normal thyroid, RESPIRATORY: Diminished to auscultation CARDIOVASCULAR: Regular S1 S2, GI: Slight distention of abdomen with hypoactive bowel sounds : No Renal angle tenderness; EXTREMITIES: No edema, no clubbing, MUSCULOSKELETAL: no muscle wasting NEURO: Awake; no lateralizing signs. SKIN: No Rash PSYCH; Flat affect Assessment & Plan Assessment/Plan (1) Intractable nausea and vomiting: PLAN: Plan Patient is an 85-year-old lady who presented with abdominal pain with nausea andvomiting, imaging studies obtained on admission demonstrated Mildly prominentsmall bowel loops with air-fluid levels, likely acute enteritis or an ileus. Nodefinite transition point seen, however early/partial SBO is not excluded. Admitted to a monitored bed for subsequent eval 1. Partial small bowel obstruction ? Patient has been admitted to monitored bed. Managed with IV fluids, bowel rest with consultation placed to general surgery. Repeat KUB ordered this a.m.Demonstrated persistent small bowel obstruction with transition point in theED 2. Hypertension ? Blood pressure controlled, home medications held given patient emesis placed on hydralazine as needed for systolic blood pressure greater than 160 3. Hypothyroidism ? Plan is to resume patient home dose levothyroxine once she is able to tolerateoral diet 4.. History uterine/endometrial cancer - Status post total abdominal hysterectomy 2012 in addition to treatment with chemotherapy and radiation patient has since remained in remission 5. GERD ? On PPI 6. Anemia ? Secondary to chronic disorder monitoring H&H and transfuse if patient becomes symptomatic or hemoglobin falls below 7 7 . DVT prophylaxis ? Subcu Lovenox. Charges/Coding Visit Charges Inpatient E&M: 88753 Subs Hosp L2 05/19/25 0923 <Electronically signed by Brian Negrete MD> Cosigner Signature (if applicable): CC: ~ Signed [facility] Work Phone: 1(262) 447-906208-08-2025 Consult note Author Isaiah Lerner [facility] Note Date/Time May 19, 2025 8:5 5am [facility] Medical Records Department [address] [place] [address] Consultation - Surgical 05/19/25 0852 MR#: [id number] Acct: [id number] Name: LUZ CLANCY Rep #:[id number] : 1940 85 From: Isaiah gibson MD PCP: MARILEE Partida Status:ADM [facility] Location: [place] [address] Assessment & Plan Assessment/Plan (1) Intractable nausea and vomiting: PLAN: The patient was admitted with abdominal pain and nausea and vomiting. Sheis still having nausea but no vomiting. I reviewed her CT findings with her. CT revealed mildly prominent small bowel loops filled with fluid. Unsure as to the etiology of her issues. I am not sure if she has a bowel obstruction versusgastroenteritis. At this time I recommended observation as the majority of these bowel obstructions resolve spontaneously. If it does not improve over theweekend I will take her for surgery on Thursday. Isaiah Lerner MD Pager: [facility] [address] [place] [address], [address] [place] [address] Office: HPI Consult Data Date of Consult: 05/19/25 HPI Narrative HPI Narrative: LUZ CLANCY, is a 85 F who presents with abdominal pain and vomiting that started yesterday. She reports that she has not had any vomiting since being admitted but she vomited a lot yesterday. She said she is having lower abdominal pain that started yesterday. She is not passing any flatus. She saidher last bowel movement was yesterday. She has never had a bowel obstruction inthe past. [facility] Medical History CKD (chronic kidney disease), stage II HTN (hypertension) Diverticulosis Cancer Gastric reflux Pulmonary nodule Home Medications ?Medication ?Instructions ?Recorded ?Last Taken ?Type Calcium Carbonate/Vitamin D 1 tab PO DAILY 08/01/13 History Multivitamins,Therapeutic 1 tab PO DAILY 08/01/1308/12 History lactobacillus combination no.9 4 4,000 mmu cells PO DA NURIS 03/23/23 Unknown History billion cell capsule (Adult 50 Plus Probiotic) famotidine 20 mg tablet 20 mg PO QDAY 12/01/24 Unkno wn History (Zantac-360 (famotidine)) metoprolol succinate 50 mg 50 mg PO QDAY #90 tabs 12/06 Unknown Rx tablet,extended release 24 hr (Toprol XL) levothyroxine 75 mcg tablet 50 mcg PO QDAY 04/12/25 Un known History Allergy/AdvReac Type Severity Reaction Status Date / Time doxycycline AdvReac Severe Nausea Verified 05/18/25 17:46 erythromycin base AdvReac Severe Nausea Verified 05/18/25 17:46 (Erythromycin Base) clindamycin AdvReac Intermediate Thrush Verified 05/18/25 17:46 Penicillins AdvReac Intermediate Hives Verified 05/18/25 17:46 Family History (Updated 05/18/25 @ 23:[address] Najma Cates MD) Mother Colon cancer Breast cancer Daughter Thyroid disorder Father No problems noted. Surgical History History of tubal ligation History of hysterectomy Social History household members: none Smoking Status: Never smoker alcohol intake: never substance use type: does not use Physical Exam Const alert and oriented x3 HEENT normocephalic Eyes PERRL Resp normal respiratory effort Cardio Rate: regular rate Rhythm: regular rhythm GI soft to palpation Inspection: abdominal distention Palpation: tender LLQ and RLQ Extremity normal to inspection Lab / Micro Data 05/19/25 06:39 05/19/25 06:39 Labs: Laboratory Results - last 24 hr 05/18/25 17:55: WBC 14.2 H, RBC 4.35, Hgb 12.2, Hct 37.0, MCV 85.1, MCH 28.0, MCHC 33.0, RDW Std Deviation 41.1, RDW Coeff of Karthikeyan 13.2, Plt Count 364, MPV 11.9, Immature Gran % (Auto) 0.200, Neut % (Auto) 91.6 H, Lymph % (Auto) 3.3 L, Elk % (Auto) 4.6, Eos % (Auto) 0.0, Baso % (Auto) 0.3, Absolute Neuts (auto) 13.0 H, Absolute Lymphs (auto) 0.47 L, Nucleated RBC % 0, Sodium 132 L, Potassium 4.0, Chloride 94 L, Carbon Dioxide 18.0 L, Anion Gap 20 H, BUN 15, Creatinine 0.78, Estim Creat Clear Calc 47.10 L, Est GFR (MDRD) Non-Af 75, BUN/Creatinine Ratio 19.4, Glucose 152 H, Calcium 10.1, Total Bilirubin 0.54, AST 44 H, ALT 16, Alkaline Phosphatase 93, Total Protein 8.6 H, Albumin 4.5, Globulin 4.1, Albumin/Globulin Ratio 1.1, Lipase 32 05/18/25 18:57: Urine Color Straw, Urine Clarity Sl. Cloudy, Urine pH 7.0, Ur Specific [place] 1.010, Urine Protein 30 H, Urine Glucose (UA) Normal, Urine Ketones 15 H, Urine Occult Blood 25 H, Urine Nitrite Negative, Urine Bilirubin Negative, Urine Urobilinogen Normal, Ur Leukocyte Esterase 100 H, Urine RBC 0-5 SEEN, Urine WBC 0-5 SEEN, Ur Squamous Epith Cells 0-5 SEEN, Urine Bacteria 0 SEEN, Urine Mucus 0 SEEN 05/18/25 19:10: Lactic Acid 1.9 05/18/25 22:24: Sodium 134, Potassium 3.5, Chloride 102, Carbon Dioxide 15.1 L, Anion Gap 17 H, BUN 11, Creatinine 0.56 L, Estim Creat Clear Calc 47.10 L, Est GFR (MDRD) Non-Af 90, BUN/Creatinine Ratio 19.6, Glucose 148 H, Calcium 8.0 05/19/25 06:39: WBC 6.3, RBC 3.68 L, Hgb 10.3 L, Hct 32.1 L, MCV 87.2, MCH 28.0,MCHC 32.1, RDW Std Deviation 43.3, RDW Coeff of Karthikeyan 13.7, Plt Count 334, MPV 11.7, Immature Gran % (Auto) 0.200, Neut % (Auto) 79.3 H, Lymph % (Auto) 6.6 L, Elk % (Auto) 12.8 H, Eos % (Auto) 0.6, Baso % (Auto) 0.5, Absolute Neuts (auto)5.0, Absolute Lymphs (auto) 0.42 L, Nucleated RBC % 0, Sodium 133, Potassium 3.8, Chloride 101, Carbon Dioxide 20.0 L, Anion Gap 12, BUN 14, Creatinine 0.60 L, Estim Creat Clear Calc 47.10 L, Est GFR (MDRD) Non-Af 88, BUN/Creatinine Ratio 22.8 H, Glucose 115 H, Calcium 8.9, Total Bilirubin 0.53, AST 26, ALT 10, Alkaline Phosphatase 74, Total Protein 6.6, Albumin 3.6, Globulin 3.0, Albumin/Globulin Ratio 1.2 Imaging Radiology Impression Abdomen/Pelvis CT 05/18/25 18:14 IMPRESSION: 1. Mildly prominent small bowel loops with air-fluid levels, likely acute enteritis or an ileus. No definite transition point seen, however early/partial SBO is not excluded. 2. Colonic diverticulosis without signs of diverticulitis. 3. Small hyperdense left renal lesion, may represent a complex cyst. 4. Bilateral pulmonary nodules, with no significant change since the prior study Reading Location: [id number] K[facility] X-Ray 05/19/25 04:50 IMPRESSION: Persistent small-bowel obstruction, transition point in the ileum. Refer to recent CT report. Reading Location: [facility] 05/19/25854 <Electronically signed by Isaiah Lerner MD> Cosigner Signature (if applicable): CC: MARILEE Interiano~ Signed [facility] Work Phone: 1(777) 705-556908-08-2025 Progress note [facility] Medical Records Department [address] [place] [address] Progress Note - Hospitalist 05/19/25747 MR#: [id number] Acct: [id number] Name: LUZ CLANCY Rep #:[id number] : 1940 85 From: Brian Negrete MD PCP: MARILEE Partida Status:ADM [place] Location: [place] [address] Reason for Visit Chief Complaint: Abdominal pain, bloating, N/V. Subjective Subjective Patient is an 85-year-old lady who presented with abdominal pain with nausea andvomiting, imaging studies obtained on admission demonstrated Mildly prominentsmall bowel loops with air-fluid levels, likely acute enteritis or an ileus. Nodefinite transition point seen, however early/partial SBO is not excluded. Admitted to a monitored bed for subsequent eval Objective Data Objective Data Vital Signs: Vital Signs Temp Pulse Resp BP Pulse Ox O2 Del Method 99.1 F 80 17 162/83 H 98 Room Air 05/19/25 07:41 05/19/25 07:41 05/19/25 07:41 05/19/25 07:41 05/19/25 07:41 05/19/25 07:41 Oxygen Delivery Method Room Air Weight: 57.6 kg Body Mass Index (BMI) 21.1 Intake & Output: Intake and Output for Last 24 Hours 05/17/25 05/18/25 05/19/25 23:59 23:59 23:59 Intake Total 2099 / 2099 Balance 2099 / 2099 Lab / Micro Data 05/19/25 06:39 05/19/25 06:39 Labs: Laboratory Results - last 24 hr 05/18/25 17:55: WBC 14.2 H, RBC 4.35, Hgb 12.2, Hct 37.0, MCV 85.1, MCH 28.0, MCHC 33.0, RDW Std Deviation 41.1, RDW Coeff of Karthikeyan 13.2, Plt Count 364, MPV 11.9, Immature Gran % (Auto) 0.200, Neut % (Auto) 91.6 H, Lymph % (Auto) 3.3 L, Elk % (Auto) 4.6, Eos % (Auto) 0.0, Baso % (Auto) 0.3, AbsoluteNeuts (auto) 13.0 H, Absolute Lymphs (auto) 0.47 L, Nucleated RBC % 0, Sodium 132 L, Potassium 4.0,Chloride 94 L, Carbon Dioxide 18.0 L, Anion Gap 20 H, BUN 15, Creatinine 0.78, Estim Creat Clear Calc 47.10 L, Est GFR (MDRD) Non-Af 75, BUN/Creatinine Ratio 19.4, Glucose 152 H, Calcium 10.1, Total Bilirubin 0.54, AST 44 H, ALT 16, Alkaline Phosphatase 93, Total Protein 8.6 H, Albumin 4.5, Globulin 4.1, Albumin/Globulin Ratio 1.1, Lipase 32 05/18/25 18:57: Urine Color Straw, Urine Clarity Sl. Cloudy, Urine pH 7.0, Ur Specific [place] 1.010, Urine Protein 30 H, Urine Glucose (UA) Normal, Urine Ketones 15 H, Urine Occult Blood 25 H, UrineNitrite Negative, Urine Bilirubin Negative, Urine Urobilinogen Normal, Ur Leukocyte Esterase 100 H,Urine RBC 0-5 SEEN, Urine WBC 0-5 SEEN, Ur Squamous Epith Cells 0-5 SEEN, Urine Bacteria 0 SEEN, Urine Mucus 0 SEEN 05/18/25 19:10: Lactic Acid 1.9 05/18/25 22:24: Sodium 134, Potassium 3.5, Chloride 102, Carbon Dioxide 15.1 L, Anion Gap 17 H, BUN11, Creatinine 0.56 L, Estim Creat Clear Calc 47.10 L, Est GFR (MDRD) Non-Af 90, BUN/Creatinine Ratio 19.6, Glucose 148 H, Calcium 8.0 05/19/25 06:39: WBC 6.3, RBC 3.68 L, Hgb 10.3 L, Hct 32.1 L, MCV 87.2, MCH 28.0,MCHC 32.1, RDW Std Deviation 43.3, RDW Coeff of Karthikeyan 13.7, Plt Count 334, MPV 11.7, Immature Gran % (Auto) 0.200, Neut %(Auto) 79.3 H, Lymph % (Auto) 6.6 L, Elk % (Auto) 12.8 H, Eos % (Auto) 0.6, Baso % (Auto) 0.5, Absolute Neuts (auto)5.0, Absolute Lymphs (auto) 0.42 L, Nucleated RBC % 0 Radiography Diagnostic Testing: Radiology Impression Abdomen/Pelvis CT 05/18/25 18:14 IMPRESSION: 1. Mildly prominent small bowel loops with air-fluid levels, likely acute enteritis or an ileus. Nodefinite transition point seen, however early/partial SBO is not excluded. 2. Colonic diverticulosis without signs of diverticulitis. 3. Small hyperdense left renal lesion, may represent a complex cyst. 4. Bilateral pulmonary nodules, with no significant change since the prior study Reading Location: [facility] KUB X-Ray 05/19/25 04:50 IMPRESSION: Persistent small-bowel obstruction, transition point in the ileum. Refer to recent CT report. Reading Location: [place] [address] Physical Exam Narrative GENERAL: cooperative HEENT: Atraumatic; normocephalic EYES; Anicteric, Normal Conjunctiva NECK; supple, normal thyroid, RESPIRATORY: Diminished to auscultation CARDIOVASCULAR: Regular S1 S2, GI: Slight distention of abdomen with hypoactive bowel sounds : No Renal angle tenderness; EXTREMITIES: No edema, no clubbing, MUSCULOSKELETAL: no muscle wasting NEURO: Awake; no lateralizing signs. SKIN: No Rash PSYCH; Flat affect Assessment & Plan Assessment/Plan (1) Intractable nausea and vomiting: PLAN: Plan Patient is an 85-year-old lady who presented with abdominal pain with nausea andvomiting, imaging studies obtained on admission demonstrated Mildly prominentsmall bowel loops with air-fluid levels, likely acute enteritis or an ileus. Nodefinite transition point seen, however early/partial SBO is not excluded. Admitted to a monitored bed for subsequent eval 1. Partial small bowel obstruction ? Patient has been admitted to monitored bed. Managed with IV fluids, bowel rest with consultation placed to general surgery. Repeat KUB ordered this a.m.Demonstrated persistent small bowel obstruction with transition point in theED 2. Hypertension ? Blood pressure controlled, home medications held given patient emesis placed on hydralazine as needed for systolic blood pressure greater than 160 3. Hypothyroidism ? Plan is to resume patient home dose levothyroxine once she is able to tolerateoral diet 4.. History uterine/endometrial cancer - Status post total abdominal hysterectomy 2012 in addition to treatment with chemotherapy and radiation patient has since remained in remission 5. GERD ? On PPI 6. Anemia ? Secondary to chronic disorder monitoring H&H and transfuse if patient becomes symptomatic or hemoglobin falls below 7 7 . DVT prophylaxis ? Subcu Lovenox. Charges/Coding Visit Charges Inpatient E&M: 45600 Subs Hosp L2 05/19/25 0923 Cosigner Signature (if applicable): CC: ~ Signed [facility]08-08-2025 Consult note [facility] Medical Records Department [address] [place], [place] [id number] Consultation - Surgical 05/19/25 0852 MR#: [id number] Acct: [id number] Name: LUZ CLANCY Rep #:[id number] : 1940 85 From: Isaiah gibson MD PCP: MARILEE Partida Status:ADM [facility] Location: [place] [address] Assessment & Plan Assessment/Plan (1) Intractable nausea and vomiting: PLAN: The patient was admitted with abdominal pain and nausea and vomiting. Sheis still having nausea but no vomiting. I reviewed her CT findings with her. CT revealed mildly prominent small bowel loops filled with fluid. Unsure as to the etiology of her issues. I am not sure if she has a bowel obstruction versusgastroenteritis. At this time I recommended observation as the majority of these bowel obstructions resolve spontaneously. If it does not improve over theweekend I will take her for surgery on Thursday. Isaiah Lerner MD Pager: [facility] [address] [place] [address] Outpatient Pavilion, [address] [place] [address] Office: HPI Consult Data Date of Consult: 05/19/25 HPI Narrative HPI Narrative: LUZ CLANCY, is a 85 F who presents with abdominal pain and vomiting that started yesterday. She reports that she has not had any vomiting since being admitted but she vomited a lot yesterday. She said she is having lower abdominal pain that started yesterday. She is not passing any flatus. She saidher last bowel movement was yesterday. She has never had a bowel obstruction inthe past. [facility] Medical History CKD (chronic kidney disease), stage II HTN (hypertension) Diverticulosis Cancer Gastric reflux Pulmonary nodule Home Medications ?Medication ?Instructions ?Recorded ?Last Taken ?Type Calcium Carbonate/Vitamin D 1 tab PO DAILY 08/01/13 History Multivitamins,Therapeutic 1 tab PO DAILY 08/01/1308/12 History lactobacillus combination no.9 4 4,000 mmu cells PO DA NURIS 03/23/23 Unknown History billion cell capsule (Adult 50 Plus Probiotic) famotidine 20 mg tablet 20 mg PO QDAY 12/01/24 Unkno wn History (Zantac-360 (famotidine)) metoprolol succinate 50 mg 50 mg PO QDAY #90 tabs 12/06 Unknown Rx tablet,extended release 24 hr (Toprol XL) levothyroxine 75 mcg tablet 50 mcg PO QDAY 04/12/25 Un known History Allergy/AdvReac Type Severity Reaction Status Date / Time doxycycline AdvReac Severe Nausea Verified 05/18/25 17:46 erythromycin base AdvReac Severe Nausea Verified 05/18/25 17:46 (Erythromycin Base) clindamycin AdvReac Intermediate Thrush Verified 05/18/25 17:46 Penicillins AdvReac Intermediate Hives Verified 05/18/25 17:46 Family History (Updated 05/18/25 @ 23:[address] Najma Cates MD) Mother Colon cancer Breast cancer Daughter Thyroid disorder Father No problems noted. Surgical History History of tubal ligation History of hysterectomy Social History household members: none Smoking Status: Never smoker alcohol intake: never substance use type: does not use Physical Exam Const alert and oriented x3 HEENT normocephalic Eyes PERRL Resp normal respiratory effort Cardio Rate: regular rate Rhythm: regular rhythm GI soft to palpation Inspection: abdominal distention Palpation: tender LLQ and RLQ Extremity normal to inspection Lab / Micro Data 05/19/25 06:39 05/19/25 06:39 Labs: Laboratory Results - last 24 hr 05/18/25 17:55: WBC 14.2 H, RBC 4.35, Hgb 12.2, Hct 37.0, MCV 85.1, MCH 28.0, MCHC 33.0, RDW Std Deviation 41.1, RDW Coeff of Karthikeyan 13.2, Plt Count 364, MPV 11.9, Immature Gran % (Auto) 0.200, Neut % (Auto) 91.6 H, Lymph % (Auto) 3.3 L, Elk % (Auto) 4.6, Eos % (Auto) 0.0, Baso % (Auto) 0.3, AbsoluteNeuts (auto) 13.0 H, Absolute Lymphs (auto) 0.47 L, Nucleated RBC % 0, Sodium 132 L, Potassium 4.0,Chloride 94 L, Carbon Dioxide 18.0 L, Anion Gap 20 H, BUN 15, Creatinine 0.78, Estim Creat Clear Calc 47.10 L, Est GFR (MDRD) Non-Af 75, BUN/Creatinine Ratio 19.4, Glucose 152 H, Calcium 10.1, Total Bilirubin 0.54, AST 44 H, ALT 16, Alkaline Phosphatase 93, Total Protein 8.6 H, Albumin 4.5, Globulin 4.1, Albumin/Globulin Ratio 1.1, Lipase 32 05/18/25 18:57: Urine Color Straw, Urine Clarity Sl. Cloudy, Urine pH 7.0, Ur Specific [place] 1.010, Urine Protein 30 H, Urine Glucose (UA) Normal, Urine Ketones 15 H, Urine Occult Blood 25 H, UrineNitrite Negative, Urine Bilirubin Negative, Urine Urobilinogen Normal, Ur Leukocyte Esterase 100 H,Urine RBC 0-5 SEEN, Urine WBC 0-5 SEEN, Ur Squamous Epith Cells 0-5 SEEN, Urine Bacteria 0 SEEN, Urine Mucus 0 SEEN 05/18/25 19:10: Lactic Acid 1.9 05/18/25 22:24: Sodium 134, Potassium 3.5, Chloride 102, Carbon Dioxide 15.1 L, Anion Gap 17 H, BUN11, Creatinine 0.56 L, Estim Creat Clear Calc 47.10 L, Est GFR (MDRD) Non-Af 90, BUN/Creatinine Ratio 19.6, Glucose 148 H, Calcium 8.0 05/19/25 06:39: WBC 6.3, RBC 3.68 L, Hgb 10.3 L, Hct 32.1 L, MCV 87.2, MCH 28.0,MCHC 32.1, RDW Std Deviation 43.3, RDW Coeff of Karthikeyan 13.7, Plt Count 334, MPV 11.7, Immature Gran % (Auto) 0.200, Neut %(Auto) 79.3 H, Lymph % (Auto) 6.6 L, Elk % (Auto) 12.8 H, Eos % (Auto) 0.6, Baso % (Auto) 0.5, Absolute Neuts (auto)5.0, Absolute Lymphs (auto) 0.42 L, Nucleated RBC % 0, Sodium 133, Potassium 3.8, Chloride 101, Carbon Dioxide 20.0 L, Anion Gap 12, BUN 14, Creatinine 0.60 L, Estim Creat Clear Calc47.10 L, Est GFR (MDRD) Non-Af 88, BUN/Creatinine Ratio 22.8 H, Glucose 115 H, Calcium 8.9, Total Bilirubin 0.53, AST 26, ALT 10, Alkaline Phosphatase 74, Total Protein 6.6, Albumin 3.6, Globulin 3.0, Albumin/Globulin Ratio 1.2 Imaging Radiology Impression Abdomen/Pelvis CT 05/18/25 18:14 IMPRESSION: 1. Mildly prominent small bowel loops with air-fluid levels, likely acute enteritis or an ileus. Nodefinite transition point seen, however early/partial SBO is not excluded. 2. Colonic diverticulosis without signs of diverticulitis. 3. Small hyperdense left renal lesion, may represent a complex cyst. 4. Bilateral pulmonary nodules, with no significant change since the prior study Reading Location: [facility] KUB X-Ray 05/19/25 04:50 IMPRESSION: Persistent small-bowel obstruction, transition point in the ileum. Refer to recent CT report. Reading Location[facility] 05/19/25 0855 Cosigner Signature (if applicable): CC: MARILEE Interiano~ Signed [facility]08-08-2025 Radiology Diagnostic study note [facility] Imaging Services [address] [place] [id number] Abdomen Single View (Portable) MR#: [id number] Acct: [id number] Name: LUZ CLANCY Rep #: [id number] : 1940 F 85 From: Katharine Kingsley MD PCP: MARILEE Partida Status: ADM [place] Study:Abdomen Single View (Portable) Date of Exam: 05/19/25 Exam# [id number] Ordering Dr: Lucia Cates MD PROCEDURE: ABDOMEN SINGLE VIEW (PORTABLE) 05/19/2025 REASON FOR EXAM: ? PSBO TECHNIQUE: ABDOMEN SINGLE VIEW (PORTABLE) COMPARISON: CT 05/18/2025 FINDINGS: Clear lung bases. No free air. Recent CT showed a small-bowel obstruction, transition in the ileum.This is still present.. Nondistended large bowel. Lumbar spine scoliosis and degeneration. RAD/Abdomen Single View (Portable) IMPRESSION: Persistent small-bowel obstruction, transition point in the ileum. Refer to recent CT report. Reading Location: [facility] CC: MARILEE Interiano; Dr. Najma Cates MD ~ Rug Receiving Clerk: Signed [facility]08-08-2025 History and physical note Author Najma Cates [facility] Note Date/Time May 18, 2025 11: 21pm [facility] Medical Records Department [address] [place] [address] H&P Exam - Hospitalist 05/18/25 215 MR#: [id number] Acct: [id number] Name: CLANCYLUZ TORRE Rep #:[id number] : 1940 85 From: Najma Cates MD PCP: Lela Interiano, TEST BAKER-C Status:ADM [place] Location: [place] [address] HPI - General General Date of Admission: 05/18/25 Date of Service: 05/18/25 Chief Complaint: Abdominal pain, bloating, N/V. HPI Narrative The patient is an 85 y/o F w/ PMHx: CKD stage II per GFR trending, HTN, GERD, HxUterine CA/endometrial s/p PRADEEP as well as chemotherapy/radiation 2012, Hypothyroidism who presents to the [facility] ED on 05/18/25 with history of onset on dayof presentation abdominal distention, increased burping, lack of flatus, episodes of nausea and emesis although she does report a bowel movement of normal texture and size at approximately 6:30 AM and also 1 in the early afternoon which is a familiar bowel pattern for her although she does note that last flatus was the day prior and given ongoing discomfort noted to be waxing and waning occasionally and with a cramping sensation rated 6-7 out of 10 in severity at its worst, currently resolved upon ED evaluation but given ongoing prompted ED evaluation to be cautious. She does note that in March she had a similar episode but no emesis at that time and it did resolve over 48 hours. Prior to this she had never had anything like this before. Workup in the ED included T98.4, heart rate 125, BP 164/106, respiratory rate 20, 100% on room air with most recent repeat vitals heart rate 122, BP 151/99, respiratory rate 14, 98% room air, CBC with 14.2, hemoglobin 12.2, platelet 364 with left shift and lymphopenia, CMP with sodium 132, chloride 94, carbon dioxide 18, AG 20, BUN/creat 15/0.78, GFR 75, glucose 152, lactic acid 1.9, hepatic profile not marked appearing aside AST 42, lipase 32, urinalysis not marked appearing, CT abdomen and pelvis with mildly prominent small bowel loops with air-fluid levelspossibly acute enteritis versus ileus with no definitive transition point however unable to exclude early/partial SBO, colonic diverticulosis without diverticulitis, small hyperdense left renal lesion possibly complex cyst, bilateral pulmonary nodules with no significant change in his prior study. In the ED patient administered 2 L normal saline, Reglan 5 mg IV x 1, morphine 2 mgIV x 1, Zofran 4 mg IV x 1. ED discussed case with Dr. Lerner. [facility] Medical History CKD (chronic kidney disease), stage II HTN (hypertension) Diverticulosis Cancer Gastric reflux Pulmonary nodule Home Medications ?Medication ?Instructions ?Recorded ?Last Taken ?Type Calcium Carbonate/Vitamin D 1 tab PO DAILY 08/01/13 History Multivitamins,Therapeutic 1 tab PO DAILY 08/01/1308/12 History lactobacillus combination no.9 4 4,000 mmu cells PO DA NURIS 03/23/23 Unknown History billion cell capsule (Adult 50 Plus Probiotic) famotidine 20 mg tablet 20 mg PO QDAY 12/01/24 Unkno wn History (Zantac-360 (famotidine)) metoprolol succinate 50 mg 50 mg PO QDAY #90 tabs 12/06 Unknown Rx tablet,extended release 24 hr (Toprol XL) levothyroxine 75 mcg tablet 50 mcg PO QDAY 04/12/25 Un known History Allergy/AdvReac Type Severity Reaction Status Date / Time doxycycline AdvReac Severe Nausea Verified 05/18/25 17:46 erythromycin base AdvReac Severe Nausea Verified 05/18/25 17:46 (Erythromycin Base) clindamycin AdvReac Intermediate Thrush Verified 05/18/25 17:46 Penicillins AdvReac Intermediate Hives Verified 05/18/25 17:46 Family History Mother Colon cancer Breast cancer Daughter Thyroid disorder Father No problems noted. Surgical History History of tubal ligation History of hysterectomy Social History household members: none Smoking Status: Never smoker alcohol intake: never substance use type: does not use ROS ROS Narrative Admission Review of Systems: CONSTITUTIONAL: No weight loss, fever, chills, + weakness or fatigue. HEENT: Eyes: No visual loss, blurred vision, double vision or yellow sclerae. Ears, Nose, Throat: No hearing loss, sneezing, congestion, runny nose or sore throat. SKIN: No rash or itching, lesions, wounds. CARDIOVASCULAR: No chest pain, chest pressure or chest discomfort, palpitations,edema, orthopnea, syncopal events. RESPIRATORY: No shortness of breath, cough or sputum, wheezing, hemoptysis. GASTROINTESTINAL: + anorexia, nausea, vomiting, increased burping, lack of flatus, abdominal pain and distention. No diarrhea, constipation, melena, BRBPR. GENITOURINARY: No dysuria, frequency, urgency or retention. NEUROLOGICAL: No headache, dizziness, syncope, paralysis, ataxia, numbness or tingling in the extremities, focal weakness, change in bowel or bladder control,seizure. MUSCULOSKELETAL: + muscle, back pain, joint pain or stiffness. HEMATOLOGIC: No anemia, bleeding or bruising. LYMPHATICS: No enlarged nodes. No history of splenectomy. PSYCHIATRIC: No history of depression or anxiety. ENDOCRINOLOGIC: No reports of sweating, cold or heat intolerance. No polyuria orpolydipsia. ALLERGIES: + History of hives. Vital Signs Vital Signs Vital Signs: 05/18/25 17:46 05/18/25 18:48 05/18/25 19:20 Temperature 98.4 F 98.1 F Temperature Source Oral Oral Pulse Rate 125 H 122 H 117 H Respiratory Rate 20 H 20 H 19 H Blood Pressure 164/106 H 159/106 H Blood Pressure Mean 125 123 Pulse Ox 100 100 99 Oxygen Delivery Method Room Air Room Air 05/18/25 19:30 05/18/25 19:45 05/18/25 19:55 Temperature 99.1 F Temperature Source Oral Pulse Rate 114 H 118 H 120 H Respiratory Rate 21 H 21 H 20 H Blood Pressure 149/97 H 149/97 H Blood Pressure Mean 114 114 Pulse Ox 99 99 100 Oxygen Delivery Method Room Air 05/18/25 19:55 05/18/25 20:00 05/18/25 20:05 Temperature Temperature Source Pulse Rate 117 H Respiratory Rate 17 Blood Pressure 149/97 H 154/89 H 151/89 H Blood Pressure Mean 115 108 108 Pulse Ox 100 Oxygen Delivery Method 05/18/25 20:10 05/18/25 20:15 05/18/25 20:20 Temperature Temperature Source Pulse Rate 117 H 116 H 118 H Respiratory Rate 18 22 H 19 H Blood Pressure 147/89 H 148/86 H 148/103 H Blood Pressure Mean 107 104 118 Pulse Ox 99 98 100 Oxygen Delivery Method 05/18/25 20:25 05/18/25 20:30 05/18/25 20:35 Temperature Temperature Source Pulse Rate 116 H 117 H Respiratory Rate 24 H 25 H Blood Pressure 152/91 H 149/88 H 153/89 H Blood Pressure Mean 111 107 108 Pulse Ox 100 99 Oxygen Delivery Method 05/18/25 20:40 05/18/25 20:45 05/18/25 20:50 Temperature Temperature Source Pulse Rate 115 H 115 H Respiratory Rate 18 17 Blood Pressure 154/89 H 152/89 H 150/88 H Blood Pressure Mean 109 107 106 Pulse Ox 98 100 Oxygen Delivery Method 05/18/25 21:00 05/18/25 21:00 05/18/25 21:15 Temperature 98.4 F Temperature Source Oral Pulse Rate 119 H 123 H 119 H Respiratory Rate 20 H 22 H 21 H Blood Pressure 151/99 H Blood Pressure Mean 116 Pulse Ox 100 100 100 Oxygen Delivery Method Room Air 05/18/25 21:30 Temperature Temperature Source Pulse Rate 122 H Respiratory Rate 14 Blood Pressure Blood Pressure Mean Pulse Ox 98 Oxygen Delivery Method Weight Weight: 128 lb 4.944 oz Body Mass Index (BMI) 21.3 Physical Exam Narrative Physical Examination: General: Awake, alert, oriented x 3 and cooperative, seated upright in the ED bed, fatigued, notes abdominal discomfort currently improved following ED morphine. Skin: Normal color, normal turgor, no icterus, no cyanosis except occasional stage ecchymoses, abrasion. HEENT: AT/NC, EOMI, PERRLA, moderately dry MM, no carotid bruits or JVD noted. Lungs: CTA bilaterally, moderate effort, mild decrease BL bases, no rales, ronchi or wheezing. Heart: Tachycardic with regular rhythm; no gallop, rub audible. Abdomen: Soft, mild generalized discomfort with palpation, still evident mild tomoderate distention, tympany primarily in the right lower quadrant, absent bowelsounds, no obvious HSM. Extremities: No cyanosis, clubbing, or edema. Neurological: Patient awake, alert, oriented as noted, cognitive function intact; pupils equally reactive to light and accommodation, cranial nerves grossly normal, moving all 4 extremities, no focal deficits, strength moderatelyglobally decreased secondary to acute presentation complaints. Psychiatric: Affect appears fatigued, no acute evidence of depressive or anxietyfeelings. Results Lab / Micro Data 05/18/25 17:55 05/18/25 22:24 Labs: Laboratory Results - last 24 hr 05/18/25 17:55: WBC 14.2 H, RBC 4.35, Hgb 12.2, Hct 37.0, MCV 85.1, MCH 28.0, MCHC 33.0, RDW Std Deviation 41.1, RDW Coeff of Karthikeyan 13.2, Plt Count 364, MPV 11.9, Immature Gran % (Auto) 0.200, Neut % (Auto) 91.6 H, Lymph % (Auto) 3.3 L, Elk % (Auto) 4.6, Eos % (Auto) 0.0, Baso % (Auto) 0.3, Absolute Neuts (auto) 13.0 H, Absolute Lymphs (auto) 0.47 L, Nucleated RBC % 0, Sodium 132 L, Potassium 4.0, Chloride 94 L, Carbon Dioxide 18.0 L, Anion Gap 20 H, BUN 15, Creatinine 0.78, Estim Creat Clear Calc 47.10 L, Est GFR (MDRD) Non-Af 75, BUN/Creatinine Ratio 19.4, Glucose 152 H, Calcium 10.1, Total Bilirubin 0.54, AST 44 H, ALT 16, Alkaline Phosphatase 93, Total Protein 8.6 H, Albumin 4.5, Globulin 4.1, Albumin/Globulin Ratio 1.1, Lipase 32 05/18/25 18:57: Urine Color Straw, Urine Clarity Sl. Cloudy, Urine pH 7.0, Ur Specific [place] 1.010, Urine Protein 30 H, Urine Glucose (UA) Normal, Urine Ketones 15 H, Urine Occult Blood 25 H, Urine Nitrite Negative, Urine Bilirubin Negative, Urine Urobilinogen Normal, Ur Leukocyte Esterase 100 H, Urine RBC 0-5 SEEN, Urine WBC 0-5 SEEN, Ur Squamous Epith Cells 0-5 SEEN, Urine Bacteria 0 SEEN, Urine Mucus 0 SEEN 05/18/25 19:10: Lactic Acid 1.9 Imaging Radiology Impression Abdomen/Pelvis CT 05/18/25 18:14 IMPRESSION: 1. Mildly prominent small bowel loops with air-fluid levels, likely acute enteritis or an ileus. No definite transition point seen, however early/partial SBO is not excluded. 2. Colonic diverticulosis without signs of diverticulitis. 3. Small hyperdense left renal lesion, may represent a complex cyst. 4. Bilateral pulmonary nodules, with no significant change since the prior study Reading Location: [facility] Assessment & Plan Assessment/Plan (1) Intractable nausea and vomiting: PLAN: Plan The patient is an 85 y/o F w/ PMHx: CKD stage II per GFR trending, HTN, GERD, HxUterine CA/endometrial s/p PRADEEP as well as chemotherapy/radiation 2012, Hypothyroidism who presents to the [facility] ED on 05/18/25 with history of onset on dayof presentation abdominal distention, increased burping, lack of flatus, episodes of nausea and emesis although she does report a bowel movement of normal texture and size at approximately 6:30 AM and also 1 in the early afternoon which is a familiar bowel pattern for her although she does note that last flatus was the day prior and given ongoing discomfort noted to be waxing and waning occasionally and with a cramping sensation rated 6-7 out of 10 in severity at its worst, currently resolved upon ED evaluation but given ongoing prompted ED evaluation to be cautious. #1. Abdominal pain, nausea, emesis w/ concern pSBO: Will admit to PCU given ongoing persistent tachycardia, maintain on judicious IVFs, given no current emesis and patient declined will hold on NG tube placement at this time, strict I&Os, IV pain/anti-emetics PRN, serial KUB as needed to monitor bowel function, maintain on IV PPI, maintain NPO on bowel rest. General surgery consulted. #2. Hypertension: Continue home regimen including metoprolol if no further episodes of emesis otherwise we will hold and utilize IV Lopressor as needed, PRN hydralazine. #3. Chronic Kidney Disease Stage II per GFR trending: Admission BUN/Cr 15/0.78,GFR 75, baseline renal function primarily 0.7-0.8, repeat BMP in AM. #4. Hypothyroidism: Will continue patient on levothyroxine regimen if no further episodes of emesis otherwise would hold. #5. History uterine/endometrial cancer: Status post total abdominal hysterectomy 2012 in addition to treatment with chemotherapy and radiation at that time, considered in remission per patient report. #6. GERD: Will maintain on IV PPI. #7. DVT prophylaxis: Lovenox. #8. CODE status: Patient HCPOA are her children she notes and living will is currently in place. Discussed CODE status at length including difference betweenFULL code, DNR-CCA and DNR-CC status. Following discussions about the differences in these status, requested DNR-CCA with intubation. Discussed initially DNR CCA status with and without intubation and examples given with patient eventually decision to maintain with intubation. Advanced Care Planning Face to Face Time: 16 minutes. Charges/Coding Visit Charges Inpatient E&M: 98250 Init Hosp L3 Procedures Hospitalists Procedures: 19384 Advncd Care Plan 30 Min 05/18/25 2321 <Electronically signed by Najma Cates MD> Cosigner Signature (if applicable): CC: MARILEE Interiano; Dr. Najma Cates MD~ Signed [facility] Work Phone: [phone]) 642-153208-08-2025 Discharge summary Author Jeffery Mcclain [facility] Note Date/Time May 18, 2025 10: 12pm [facility] Medical Records Department [address] [place] [address] Emergency Department Summary 05/18/25 MR#: [id number] Acct: [id number] Name: LUZ CLANCY Rep #:[id number] : 1940 85 From: Jeffery escobar DO PCP: MARILEE Partida Status:[facility] ER Location: ED ADDENDUM by Dr. Jeffery Mcclain DO on 05/18/25 at 2212 Patient has a history of hysterectomy therefore she did not have abdominal surgery which makes early small bowel obstruction a possibility 05/18/25 2212<Electronically signed by Jeffery Mcclain DO> Cosigner Signature (if applicable): cc: TEST BAKERShahbaz Interiano ~* Signed HPI History of Present Illness Chief Complaint: Abd Pain Narrative Narrative: Chief complaint and HPI: Lower abdominal pain. 85-year-old female with past medical history of diverticulosis, GERD, hypothyroidism, HTN presents for evaluation of lower abdominal pain. Patient states yesterday she began feeling nauseous. Today began having lower abdominal pain with vomiting. Nonbloody. She denies any fever, chills, shortness of breath, chest pain, diarrhea, constipation, dysuria. States she feels bloated. Denies any abdominal surgeries. Review of systems: See HPI Medications: As listed on the chart Allergies: As listed on the chart PFSH: Per chart Vital signs: As listed on the chart. Reviewed. Physical exam: Gen: A&O x3, NAD Head: Normocephalic, atraumatic Eyes: No sclera icterus, conjunctiva clear ENT: Moist mucous membranes Neck: Trachea midline, No JVD CV: RRR, no murmurs, no peripheral edema Resp: Lungs CTA BL, no w/r/c GI: Abd soft, non-distended, mildly tender to palpation in the bilateral lower quadrant, no r/r/g : No CVA tenderness Musc: Full ROM, no deformity Skin: Warm, dry Neuro: Alert, oriented, grossly intact, sensation intact Psych: Cooperative, appropriate mood and [facility] Tachycardia Diverticulosis Uncontrolled hypertension Cancer Gastric reflux Pulmonary nodule Home Medications ?Medication ?Instructions ?Recorded ?Last Taken ?Type Calcium Carbonate/Vitamin D 1 tab PO DAILY 08/01/13 History Multivitamins,Therapeutic 1 tab PO DAILY 08/01/1308/12 History lactobacillus combination no.9 4 4,000 mmu cells PO DA NURIS 03/23/23 Unknown History billion cell capsule (Adult 50 Plus Probiotic) famotidine 20 mg tablet 20 mg PO QDAY 12/01/24 Unkno wn History (Zantac-360 (famotidine)) metoprolol succinate 50 mg 50 mg PO QDAY #90 tabs 12/06 Unknown Rx tablet,extended release 24 hr (Toprol XL) levothyroxine 75 mcg tablet 50 mcg PO QDAY 04/12/25 Un known History Allergy/AdvReac Type Severity Reaction Status Date / Time doxycycline AdvReac Severe Nausea Verified 05/18/25 17:46 erythromycin base AdvReac Severe Nausea Verified 05/18/25 17:46 (Erythromycin Base) clindamycin AdvReac Intermediate Thrush Verified 05/18/25 17:46 Penicillins AdvReac Intermediate Hives Verified 05/18/25 17:46 Family History Mother Colon cancer Breast cancer Daughter Thyroid disorder Surgical History History of tubal ligation History of hysterectomy Social History household members: none Smoking Status: Never smoker alcohol intake: never substance use type: does not use EXAM Physical Exam Const Vital Signs: 05/18/25 17:46 05/18/25 18:48 05/18/25 19:20 Temperature 98.4 F 98.1 F Temperature Source Oral Oral Pulse Rate 125 H 122 H 117 H Respiratory Rate 20 H 20 H 19 H Blood Pressure 164/106 H 159/106 H Blood Pressure Mean 125 123 Pulse Ox 100 100 99 Oxygen Delivery Method Room Air Room Air 05/18/25 19:30 05/18/25 19:45 05/18/25 19:55 Temperature 99.1 F Temperature Source Oral Pulse Rate 114 H 118 H 120 H Respiratory Rate 21 H 21 H 20 H Blood Pressure 149/97 H 149/97 H Blood Pressure Mean 114 114 Pulse Ox 99 99 100 Oxygen Delivery Method Room Air 05/18/25 19:55 05/18/25 20:00 05/18/25 20:05 Temperature Temperature Source Pulse Rate 117 H Respiratory Rate 17 Blood Pressure 149/97 H 154/89 H 151/89 H Blood Pressure Mean 115 108 108 Pulse Ox 100 Oxygen Delivery Method 05/18/25 20:10 05/18/25 20:15 05/18/25 20:20 Temperature Temperature Source Pulse Rate 117 H 116 H 118 H Respiratory Rate 18 22 H 19 H Blood Pressure 147/89 H 148/86 H 148/103 H Blood Pressure Mean 107 104 118 Pulse Ox 99 98 100 Oxygen Delivery Method 05/18/25 20:25 05/18/25 20:30 05/18/25 20:35 Temperature Temperature Source Pulse Rate 116 H 117 H Respiratory Rate 24 H 25 H Blood Pressure 152/91 H 149/88 H 153/89 H Blood Pressure Mean 111 107 108 Pulse Ox 100 99 Oxygen Delivery Method 05/18/25 20:40 05/18/25 20:45 05/18/25 20:50 Temperature Temperature Source Pulse Rate 115 H 115 H Respiratory Rate 18 17 Blood Pressure 154/89 H 152/89 H 150/88 H Blood Pressure Mean 109 107 106 Pulse Ox 98 100 Oxygen Delivery Method 05/18/25 21:00 05/18/25 21:00 05/18/25 21:15 Temperature 98.4 F Temperature Source Oral Pulse Rate 119 H 123 H 119 H Respiratory Rate 20 H 22 H 21 H Blood Pressure 151/99 H Blood Pressure Mean 116 Pulse Ox 100 100 100 Oxygen Delivery Method Room Air 05/18/25 21:30 Temperature Temperature Source Pulse Rate 122 H Respiratory Rate 14 Blood Pressure Blood Pressure Mean Pulse Ox 98 Oxygen Delivery Method MDM MDM MDM Narrative Medical decision making narrative: 85-year-old female with past medical history of diverticulosis, GERD, hypothyroidism, HTN presents for evaluation of lower abdominal pain. Patient states yesterday she began feeling nauseous. Today began having lower abdominalpain with vomiting. Nonbloody. Differential diagnosis includes but not limitedto viral gastroenteritis, diverticulitis, appendicitis, electrolyte abnormality,UTI, pancreatitis, biliary pathology. NS bolus, morphine, Zofran ordered for symptoms. Abdominal pain workup ordered including CT abdomen pelvis. CBC with leukocytosis of 14.2. No anemia. CMP shows mild hyponatremia at 132 with aniongap of 20. Patient has no ERNIE or renal insufficiency. Her glucose is 152. Lactic acid unremarkable. Suspect abnormalities are likely from dehydration from nausea and vomiting. Another NS bolus ordered. Will order another BMP. CMP shows mild AST elevation. Lipase unremarkable. UA positive for ketones butnegative for UTI or glucose. CT abdomen pelvis shows mildly prominent small bowel loops with air-fluid levels, likely acute enteritis or ileus. No definitive transition point seen however early/partial SBO not excluded. Patient has never had abdominal surgeries, not high risk for an SBO. diverticulosis without diverticulitis. Small hyperdense left renal lesion, may represent a complex cyst. Bilateral pulmonary nodules without significant change. Given the findings, I did reach out to Dr. Lerner. No further recommendations. On reevaluation, patient is still tachycardic and endorsing nausea. Reglan ordered. Will reassess. On assessment, patient has received about 1500 mL of fluid, she is still tachycardic in the 120s. EKG ordered. EKGshows wide QRS tachycardia. Left bundle branch block. Heart rate 122. This was personally reviewed and interpreted by me. Given patient's continued tachycardia, nausea, and dehydration, I do think that patient would benefit fromadmission for observation and continued hydration. I spoke with Dr. Cates, the hospitalist service. Recommends NG be placed to see if this helps with symptoms. Recommended metoprolol for the tachycardia. Metoprolol was ordered. I did speak with the patient about placing an NG tube. Since she is not actively vomiting she would like to hold off at this time. Patient will be admitted. Impression: 1. Nausea and vomiting, enteritis versus ileus versus early small bowel obstruction 2. Dehydration secondary to #1 Lab Data Labs: Laboratory Results - last 24 hr 05/18/25 05/18/25 05/18/25 17:55 18:57 19:10 WBC 14.2 H RBC 4.35 Hgb 12.2 Hct 37.0 MCV 85.1 MCH 28.0 MCHC 33.0 RDW Std Deviation 41.1 RDW Coeff of Karthikeyan 13.2 Plt Count 364 MPV 11.9 Immature Gran % (Auto) 0.200 Neut % (Auto) 91.6 H Lymph % (Auto) 3.3 L Elk % (Auto) 4.6 Eos % (Auto) 0.0 Baso % (Auto) 0.3 Absolute Neuts (auto) 13.0 H Absolute Lymphs (auto) 0.47 L Nucleated RBC % 0 Sodium 132 L Potassium 4.0 Chloride 94 L Carbon Dioxide 18.0 L Anion Gap 20 H BUN 15 Creatinine 0.78 Estim Creat Clear Calc 47.10 L Est GFR (MDRD) Non-Af 75 BUN/Creatinine Ratio 19.4 Glucose 152 H Lactic Acid 1.9 Calcium 10.1 Total Bilirubin 0.54 AST 44 H ALT 16 Alkaline Phosphatase 93 Total Protein 8.6 H Albumin 4.5 Globulin 4.1 Albumin/Globulin Ratio 1.1 Lipase 32 Urine Color Straw Urine Clarity Sl. Cloudy Urine pH 7.0 Ur Specific [place] 1.010 Urine Protein 30 H Urine Glucose (UA) Normal Urine Ketones 15 H Urine Occult Blood 25 H Urine Nitrite Negative Urine Bilirubin Negative Urine Urobilinogen Normal Ur Leukocyte Esterase 100 H Urine RBC 0-5 SEEN Urine WBC 0-5 SEEN Ur Squamous Epith Cells 0-5 SEEN Urine Bacteria 0 SEEN Urine Mucus 0 SEEN Radiography Diagnostic Testing: Clinical Impression(s) from Imaging Studies Abdomen/Pelvis CT 05/18/25 18:14 IMPRESSION: 1. Mildly prominent small bowel loops with air-fluid levels, likely acute enteritis or an ileus. No definite transition point seen, however early/partial SBO is not excluded. 2. Colonic diverticulosis without signs of diverticulitis. 3. Small hyperdense left renal lesion, may represent a complex cyst. 4. Bilateral pulmonary nodules, with no significant change since the prior study Reading Location: [facility] Discharge Plan Triage Chief Complaint: Abd Pain ED Provider: Jeffery Mcclain Dx/Rx/DC Orders Prescriptions: No Action Adult 50 Plus Probiotic 4 billion cell capsule 4,000 mmu cells PO DAILY Rx Instructions: administer with a meal famotidine [Zantac-360 (famotidine)] 20 mg tablet 20 mg PO QDAY metoprolol succinate [Toprol XL] 50 mg tablet extended release 24 hr 50 mg PO QDAY Qty: 90 3RF levothyroxine 75 mcg tablet 50 mcg PO QDAY Multivitamins,Therapeutic tablet 1 tab PO DAILY Calcium Carbonate/Vitamin D tablet 1 tab PO DAILY Primary Care Provider: Lela Interiano NP Referrals: Lela Interiano NP, TEST BAKER-C [Primary Care Provider] - Print Language: Nigerien What to do if you have Problems For any increased pain, shortness of breath, bleeding, nausea or vomiting, chestpain, or any unexpected problems, contact your Primary Care Provider. Call [facility] ([phone]) or report to the closest Emergency Room. Call 911 if necessary. 05/18/252201 <Electronically signed by Jeffery Mcclain DO> Cosigner Signature (if applicable): CC: TEST BAKER-Lilian Interiano ~ Signed [facility] Work Phone: [phone] History and physical note [facility] Medical Records Department [address] [place] [address] H&P Exam - Hospitalist 05/18/252151 MR#: [id number] Acct: [id number] Name: LUZ CLANCY Rep #:[id number] : 1940 85 From: Najma Cates MD PCP: MARILEE Partida Status:ADM FRANKLIN Location: [place] [address] HPI - General General Date of Admission: 05/18/25 Date of Service: 05/18/25 Chief Complaint: Abdominal pain, bloating, N/V. HPI Narrative The patient is an 85 y/o F w/ PMHx: CKD stage II per GFR trending, HTN, GERD, HxUterine CA/endometrial s/p PRADEEP as well as chemotherapy/radiation 2012, Hypothyroidism who presents to the [facility] ED on 05/18/25 with history of onset on dayof presentation abdominal distention, increased burping, lack of flatus, episodes of nausea and emesis although she does report a bowel movement of normal texture and size at approximately 6:30 AM and also 1 in the early afternoon which is a familiar bowel pattern forher although she does note that last flatus was the day prior and given ongoing discomfort noted sindi waxing and waning occasionally and with a cramping sensation rated 6-7 out of 10 in severity at its worst, currently resolved upon ED evaluation but given ongoing prompted ED evaluation to be cautious. She does note that in March she had a similar episode but no emesis at that time and it did resolve over 48 hours. Prior to this she had never had anything like this before. Workup in the ED included T98.4, heart rate 125, BP 164/106, respiratory rate 20, 100% on room air with most recent repeat vitals heart rate 122, BP 151/99, respiratory rate 14, 98% room air, CBC with 14.2, hemoglobin 12.2, platelet 364 with left shift and lymphopenia, CMP with sodium 132, chloride 94, carbon dioxide 18, AG 20, BUN/creat 15/0.78, GFR 75, glucose 152, lactic acid 1.9, hepatic profile not marked appearing aside AST 42, lipase 32, urinalysis not marked appearing, CT abdomen and pelvis with mildly prominent small bowel loops with air-fluid levelspossibly acute enteritis versus ileus with no definitivetransition point however unable to exclude early/partial SBO, colonic diverticulosis without diverticulitis, small hyperdense left renal lesion possibly complex cyst, bilateral pulmonary nodules withno significant change in his prior study. In the ED patient administered 2 L normal saline, Reglan 5 mg IV x 1, morphine 2 mgIV x 1, Zofran 4 mg IV x 1. ED discussed case with Dr. Lerner. [facility] Medical History CKD (chronic kidney disease), stage II HTN (hypertension) Diverticulosis Cancer Gastric reflux Pulmonary nodule Home Medications ?Medication ?Instructions ?Recorded ?Last Taken ?Type Calcium Carbonate/Vitamin D 1 tab PO DAILY 08/01/13 History Multivitamins,Therapeutic 1 tab PO DAILY 08/01/1308/12 History lactobacillus combination no.9 4 4,000 mmu cells PO DA NURIS 03/23/23 Unknown History billion cell capsule (Adult 50 Plus Probiotic) famotidine 20 mg tablet 20 mg PO QDAY 12/01/24 Unkno wn History (Zantac-360 (famotidine)) metoprolol succinate 50 mg 50 mg PO QDAY #90 tabs 12/06 Unknown Rx tablet,extended release 24 hr (Toprol XL) levothyroxine 75 mcg tablet 50 mcg PO QDAY 04/12/25 Un known History Allergy/AdvReac Type Severity Reaction Status Date / Time doxycycline AdvReac Severe Nausea Verified 05/18/25 17:46 erythromycin base AdvReac Severe Nausea Verified 05/18/25 17:46 (Erythromycin Base) clindamycin AdvReac Intermediate Thrush Verified 05/18/25 17:46 Penicillins AdvReac Intermediate Hives Verified 05/18/25 17:46 Family History Mother Colon cancer Breast cancer Daughter Thyroid disorder Father No problems noted. Surgical History History of tubal ligation History of hysterectomy Social History household members: none Smoking Status: Never smoker alcohol intake: never substance use type: does not use ROS ROS Narrative Admission Review of Systems: CONSTITUTIONAL: No weight loss, fever, chills, + weakness or fatigue. HEENT: Eyes: No visual loss, blurred vision, double vision or yellow sclerae. Ears, Nose, Throat: No hearing loss, sneezing, congestion, runny nose or sore throat. SKIN: No rash or itching, lesions, wounds. CARDIOVASCULAR: No chest pain, chest pressure or chest discomfort, palpitations,edema, orthopnea, syncopal events. RESPIRATORY: No shortness of breath, cough or sputum, wheezing, hemoptysis. GASTROINTESTINAL: + anorexia, nausea, vomiting, increased burping, lack of flatus, abdominal pain and distention. No diarrhea, constipation, melena, BRBPR. GENITOURINARY: No dysuria, frequency, urgency or retention. NEUROLOGICAL: No headache, dizziness, syncope, paralysis, ataxia, numbness or tingling in the extremities, focal weakness, change in bowel or bladder control,seizure. MUSCULOSKELETAL: + muscle, back pain, joint pain or stiffness. HEMATOLOGIC: No anemia, bleeding or bruising. LYMPHATICS: No enlarged nodes. No history of splenectomy. PSYCHIATRIC: No history of depression or anxiety. ENDOCRINOLOGIC: No reports of sweating, cold or heat intolerance. No polyuria orpolydipsia. ALLERGIES: + History of hives. Vital Signs Vital Signs Vital Signs: 05/18/25 17:46 05/18/25 18:48 05/18/25 19:20 Temperature 98.4 F 98.1 F Temperature Source Oral Oral Pulse Rate 125 H 122 H 117 H Respiratory Rate 20 H 20 H 19 H Blood Pressure 164/106 H 159/106 H Blood Pressure Mean 125 123 Pulse Ox 100 100 99 Oxygen Delivery Method Room Air Room Air 05/18/25 19:30 05/18/25 19:45 05/18/25 19:55 Temperature 99.1 F Temperature Source Oral Pulse Rate 114 H 118 H 120 H Respiratory Rate 21 H 21 H 20 H Blood Pressure 149/97 H 149/97 H Blood Pressure Mean 114 114 Pulse Ox 99 99 100 Oxygen Delivery Method Room Air 05/18/25 19:55 05/18/25 20:00 05/18/25 20:05 Temperature Temperature Source Pulse Rate 117 H Respiratory Rate 17 Blood Pressure 149/97 H 154/89 H 151/89 H Blood Pressure Mean 115 108 108 Pulse Ox 100 Oxygen Delivery Method 05/18/25 20:10 05/18/25 20:15 05/18/25 20:20 Temperature Temperature Source Pulse Rate 117 H 116 H 118 H Respiratory Rate 18 22 H 19 H Blood Pressure 147/89 H 148/86 H 148/103 H Blood Pressure Mean 107 104 118 Pulse Ox 99 98 100 Oxygen Delivery Method 05/18/25 20:25 05/18/25 20:30 05/18/25 20:35 Temperature Temperature Source Pulse Rate 116 H 117 H Respiratory Rate 24 H 25 H Blood Pressure 152/91 H 149/88 H 153/89 H Blood Pressure Mean 111 107 108 Pulse Ox 100 99 Oxygen Delivery Method 05/18/25 20:40 05/18/25 20:45 05/18/25 20:50 Temperature Temperature Source Pulse Rate 115 H 115 H Respiratory Rate 18 17 Blood Pressure 154/89 H 152/89 H 150/88 H Blood Pressure Mean 109 107 106 Pulse Ox 98 100 Oxygen Delivery Method 05/18/25 21:00 05/18/25 21:00 05/18/25 21:15 Temperature 98.4 F Temperature Source Oral Pulse Rate 119 H 123 H 119 H Respiratory Rate 20 H 22 H 21 H Blood Pressure 151/99 H Blood Pressure Mean 116 Pulse Ox 100 100 100 Oxygen Delivery Method Room Air 05/18/25 21:30 Temperature Temperature Source Pulse Rate 122 H Respiratory Rate 14 Blood Pressure Blood Pressure Mean Pulse Ox 98 Oxygen Delivery Method Weight Weight: 128 lb 4.944 oz Body Mass Index (BMI) 21.3 Physical Exam Narrative Physical Examination: General: Awake, alert, oriented x 3 and cooperative, seated upright in the ED bed, fatigued, notes abdominal discomfort currently improved following ED morphine. Skin: Normal color, normal turgor, no icterus, no cyanosis except occasional stage ecchymoses, abrasion. HEENT: AT/NC, EOMI, PERRLA, moderately dry MM, no carotid bruits or JVD noted. Lungs: CTA bilaterally, moderate effort, mild decrease BL bases, no rales, ronchi or wheezing. Heart: Tachycardic with regular rhythm; no gallop, rub audible. Abdomen: Soft, mild generalized discomfort with palpation, still evident mild tomoderate distention, tympany primarily in the right lower quadrant, absent bowelsounds, no obvious HSM. Extremities: No cyanosis, clubbing, or edema. Neurological: Patient awake, alert, oriented as noted, cognitive function intact; pupils equally reactive to light and accommodation, cranial nerves grossly normal, moving all 4 extremities, no focaldeficits, strength moderatelyglobally decreased secondary to acute presentation complaints. Psychiatric: Affect appears fatigued, no acute evidence of depressive or anxietyfeelings. Results Lab / Micro Data 05/18/25 17:55 05/18/25 22:24 Labs: Laboratory Results - last 24 hr 05/18/25 17:55: WBC 14.2 H, RBC 4.35, Hgb 12.2, Hct 37.0, MCV 85.1, MCH 28.0, MCHC 33.0, RDW Std Deviation 41.1, RDW Coeff of Karthikeyan 13.2, Plt Count 364, MPV 11.9, Immature Gran % (Auto) 0.200, Neut % (Auto) 91.6 H, Lymph % (Auto) 3.3 L, Elk % (Auto) 4.6, Eos % (Auto) 0.0, Baso % (Auto) 0.3, AbsoluteNeuts (auto) 13.0 H, Absolute Lymphs (auto) 0.47 L, Nucleated RBC % 0, Sodium 132 L, Potassium 4.0,Chloride 94 L, Carbon Dioxide 18.0 L, Anion Gap 20 H, BUN 15, Creatinine 0.78, Estim Creat Clear Calc 47.10 L, Est GFR (MDRD) Non-Af 75, BUN/Creatinine Ratio 19.4, Glucose 152 H, Calcium 10.1, Total Bilirubin 0.54, AST 44 H, ALT 16, Alkaline Phosphatase 93, Total Protein 8.6 H, Albumin 4.5, Globulin 4.1, Albumin/Globulin Ratio 1.1, Lipase 32 05/18/25 18:57: Urine Color Straw, Urine Clarity Sl. Cloudy, Urine pH 7.0, Ur Specific [place] 1.010, Urine Protein 30 H, Urine Glucose (UA) Normal, Urine Ketones 15 H, Urine Occult Blood 25 H, UrineNitrite Negative, Urine Bilirubin Negative, Urine Urobilinogen Normal, Ur Leukocyte Esterase 100 H,Urine RBC 0-5 SEEN, Urine WBC 0-5 SEEN, Ur Squamous Epith Cells 0-5 SEEN, Urine Bacteria 0 SEEN, Urine Mucus 0 SEEN 05/18/25 19:10: Lactic Acid 1.9 Imaging Radiology Impression Abdomen/Pelvis CT 05/18/25 18:14 IMPRESSION: 1. Mildly prominent small bowel loops with air-fluid levels, likely acute enteritis or an ileus. Nodefinite transition point seen, however early/partial SBO is not excluded. 2. Colonic diverticulosis without signs of diverticulitis. 3. Small hyperdense left renal lesion, may represent a complex cyst. 4. Bilateral pulmonary nodules, with no significant change since the prior study Reading Location: [facility] Assessment & Plan Assessment/Plan (1) Intractable nausea and vomiting: PLAN: Plan The patient is an 85 y/o F w/ PMHx: CKD stage II per GFR trending, HTN, GERD, HxUterine CA/endometrial s/p PRADEEP as well as chemotherapy/radiation 2012, Hypothyroidism who presents to the [facility] ED on 05/18/25 with history of onset on dayof presentation abdominal distention, increased burping, lack of flatus, episodes of nausea and emesis although she does report a bowel movement of normal texture and size at approximately 6:30 AM and also 1 in the early afternoon which is a familiar bowel pattern forher although she does note that last flatus was the day prior and given ongoing discomfort noted sindi waxing and waning occasionally and with a cramping sensation rated 6-7 out of 10 in severity at its worst, currently resolved upon ED evaluation but given ongoing prompted ED evaluation to be cautious. #1. Abdominal pain, nausea, emesis w/ concern pSBO: Will admit to PCU given ongoing persistent tachycardia, maintain on judicious IVFs, given no current emesis and patient declined will hold on NG tube placement at this time, strict I&Os, IV pain/anti-emetics PRN, serial KUB as needed to monitor bowel function, maintain on IV PPI, maintain NPO on bowel rest. General surgery consulted. #2. Hypertension: Continue home regimen including metoprolol if no further episodes of emesis otherwise we will hold and utilize IV Lopressor as needed, PRN hydralazine. #3. Chronic Kidney Disease Stage II per GFR trending: Admission BUN/Cr 15/0.78,GFR 75, baseline renal function primarily 0.7-0.8, repeat BMP in AM. #4. Hypothyroidism: Will continue patient on levothyroxine regimen if no further episodes of emesisotherwise would hold. #5. History uterine/endometrial cancer: Status post total abdominal hysterectomy 2012 in addition to treatment with chemotherapy and radiation at that time, considered in remission per patient report. #6. GERD: Will maintain on IV PPI. #7. DVT prophylaxis: Lovenox. #8. CODE status: Patient HCPOA are her children she notes and living will is currently in place. Discussed CODE status at length including difference betweenFULL code, DNR-CCA and DNR-CC status. Following discussions about the differences in these status, requested DNR-CCA with intubation. Discussed initially DNR CCA status with and without intubation and examples given with patient eventually decision to maintain with intubation. Advanced Care Planning Face to Face Time: 16 minutes. Charges/Coding Visit Charges Inpatient E&M: 13014 Init Hosp L3 Procedures Hospitalists Procedures: 80476 Advncd Care Plan 30 Min 05/18/25 2321 Cosigner Signature (if applicable): CC: MARILEE Interiano; Dr. Najma Cates MD~ Signed [facility]08-07-2025 Discharge summary [facility] Medical Records Department [address] [place] [address] Emergency Department Summary 05/18/25 MR#: [id number] Acct: [id number] Name: LUZ CLANCY Rep #:[id number] : 1940 85 From: Jeffery escobar DO PCP: MARILEE Partida Status:REG ER Location: ED ADDENDUM by Dr. Jeffery Mcclain DO on 05/18/25 at 2212 Patient has a history of hysterectomy therefore she did not have abdominal surgery which makes early small bowel obstruction a possibility 05/18/25 2212 Cosigner Signature (if applicable): cc: MARILEE Interiano ~* Signed HPI History of Present Illness Chief Complaint: Abd Pain Narrative Narrative: Chief complaint and HPI: Lower abdominal pain. 85-year-old female with past medical history of diverticulosis, GERD, hypothyroidism, HTN presents for evaluation of lower abdominal pain. Patient states yesterday she began feeling nauseous. Today began having lower abdominal pain with vomiting. Nonbloody. She denies any fever, chills, shortness of breath, chest pain, diarrhea, constipation, dysuria. States she feels bloated. Denies any abdominal surgeries. Review of systems: See HPI Medications: As listed on the chart Allergies: As listed on the chart PFSH: Per chart Vital signs: As listed on the chart. Reviewed. Physical exam: Gen: A&O x3, NAD Head: Normocephalic, atraumatic Eyes: No sclera icterus, conjunctiva clear ENT: Moist mucous membranes Neck: Trachea midline, No JVD CV: RRR, no murmurs, no peripheral edema Resp: Lungs CTA BL, no w/r/c GI: Abd soft, non-distended, mildly tender to palpation in the bilateral lower quadrant, no r/r/g : No CVA tenderness Musc: Full ROM, no deformity Skin: Warm, dry Neuro: Alert, oriented, grossly intact, sensation intact Psych: Cooperative, appropriate mood and affect [facility] Medical History Tachycardia Diverticulosis Uncontrolled hypertension Cancer Gastric reflux Pulmonary nodule Home Medications ?Medication ?Instructions ?Recorded ?Last Taken ?Type Calcium Carbonate/Vitamin D 1 tab PO DAILY 08/01/13 History Multivitamins,Therapeutic 1 tab PO DAILY 08/01/1308/12 History lactobacillus combination no.9 4 4,000 mmu cells PO DA NURIS 03/23/23 Unknown History billion cell capsule (Adult 50 Plus Probiotic) famotidine 20 mg tablet 20 mg PO QDAY 12/01/24 Unkno wn History (Zantac-360 (famotidine)) metoprolol succinate 50 mg 50 mg PO QDAY #90 tabs 12/06 Unknown Rx tablet,extended release 24 hr (Toprol XL) levothyroxine 75 mcg tablet 50 mcg PO QDAY 04/12/25 Un known History Allergy/AdvReac Type Severity Reaction Status Date / Time doxycycline AdvReac Severe Nausea Verified 05/18/25 17:46 erythromycin base AdvReac Severe Nausea Verified 05/18/25 17:46 (Erythromycin Base) clindamycin AdvReac Intermediate Thrush Verified 05/18/25 17:46 Penicillins AdvReac Intermediate Hives Verified 05/18/25 17:46 Family History Mother Colon cancer Breast cancer Daughter Thyroid disorder Surgical History History of tubal ligation History of hysterectomy Social History household members: none Smoking Status: Never smoker alcohol intake: never substance use type: does not use EXAM Physical Exam Const Vital Signs: 05/18/25 17:46 05/18/25 18:48 05/18/25 19:20 Temperature 98.4 F 98.1 F Temperature Source Oral Oral Pulse Rate 125 H 122 H 117 H Respiratory Rate 20 H 20 H 19 H Blood Pressure 164/106 H 159/106 H Blood Pressure Mean 125 123 Pulse Ox 100 100 99 Oxygen Delivery Method Room Air Room Air 05/18/25 19:30 05/18/25 19:45 05/18/25 19:55 Temperature 99.1 F Temperature Source Oral Pulse Rate 114 H 118 H 120 H Respiratory Rate 21 H 21 H 20 H Blood Pressure 149/97 H 149/97 H Blood Pressure Mean 114 114 Pulse Ox 99 99 100 Oxygen Delivery Method Room Air 05/18/25 19:55 05/18/25 20:00 05/18/25 20:05 Temperature Temperature Source Pulse Rate 117 H Respiratory Rate 17 Blood Pressure 149/97 H 154/89 H 151/89 H Blood Pressure Mean 115 108 108 Pulse Ox 100 Oxygen Delivery Method 05/18/25 20:10 05/18/25 20:15 05/18/25 20:20 Temperature Temperature Source Pulse Rate 117 H 116 H 118 H Respiratory Rate 18 22 H 19 H Blood Pressure 147/89 H 148/86 H 148/103 H Blood Pressure Mean 107 104 118 Pulse Ox 99 98 100 Oxygen Delivery Method 05/18/25 20:25 05/18/25 20:30 05/18/25 20:35 Temperature Temperature Source Pulse Rate 116 H 117 H Respiratory Rate 24 H 25 H Blood Pressure 152/91 H 149/88 H 153/89 H Blood Pressure Mean 111 107 108 Pulse Ox 100 99 Oxygen Delivery Method 05/18/25 20:40 05/18/25 20:45 05/18/25 20:50 Temperature Temperature Source Pulse Rate 115 H 115 H Respiratory Rate 18 17 Blood Pressure 154/89 H 152/89 H 150/88 H Blood Pressure Mean 109 107 106 Pulse Ox 98 100 Oxygen Delivery Method 05/18/25 21:00 05/18/25 21:00 05/18/25 21:15 Temperature 98.4 F Temperature Source Oral Pulse Rate 119 H 123 H 119 H Respiratory Rate 20 H 22 H 21 H Blood Pressure 151/99 H Blood Pressure Mean 116 Pulse Ox 100 100 100 Oxygen Delivery Method Room Air 05/18/25 21:30 Temperature Temperature Source Pulse Rate 122 H Respiratory Rate 14 Blood Pressure Blood Pressure Mean Pulse Ox 98 Oxygen Delivery Method MDM MDM MDM Narrative Medical decision making narrative: 85-year-old female with past medical history of diverticulosis, GERD, hypothyroidism, HTN presents for evaluation of lower abdominal pain. Patient states yesterday she began feeling nauseous. Today began having lower abdominalpain with vomiting. Nonbloody. Differential diagnosis includes but not limitedto viral gastroenteritis, diverticulitis, appendicitis, electrolyte abnormality,UTI, pancreatitis, biliary pathology. NS bolus, morphine, Zofran ordered for symptoms. Abdominal pain workup ordered including CT abdomen pelvis. CBC with leukocytosis of 14.2. No anemia. CMP shows mild hyponatremiaat 132 with aniongap of 20. Patient has no ERNIE or renal insufficiency. Her glucose is 152. Lactic acid unremarkable. Suspect abnormalities are likely from dehydration from nausea and vomiting. Another NS bolus ordered. Will order another BMP. CMP shows mild AST elevation. Lipase unremarkable. UA positive for ketones butnegative for UTI or glucose. CT abdomen pelvis shows mildly prominent small bowel loops with air-fluid levels, likely acute enteritis or ileus. No definitive transition point seen however early/partial SBO not excluded. Patient has never had abdominal surgeries, not high risk for an SBO. diverticulosis without diverticulitis. Small hyperdense left renal lesion, may represent a complex cyst. Bilateral pulmonary nodules without significant change. Given the findings, I did reach out to Dr. Lerner. No further recommendations. On reevaluation, patient is still tachycardicand endorsing nausea. Reglan ordered. Will reassess. On assessment, patient has received about 1500mL of fluid, she is still tachycardic in the 120s. EKG ordered. EKGshows wide QRS tachycardia. Left bundle branch block. Heart rate 122. This was personally reviewed and interpreted by me. Given patient's continued tachycardia, nausea, and dehydration, I do think that patient would benefit fromadmission for observation and continued hydration. I spoke with Dr. Cates, the hospitalist service. Recom mends NG be placed to see if this helps with symptoms. Recommended metoprolol for the tachycardia. Metoprolol was ordered. I did speak with the patient about placing an NG tube. Since she is not actively vomiting she would like to hold off at this time. Patient will be admitted. Impression: 1. Nausea and vomiting, enteritis versus ileus versus early small bowel obstruction 2. Dehydration secondary to #1 Lab Data Labs: Laboratory Results - last 24 hr 05/18/25 05/18/25 05/18/25 17:55 18:57 19:10 WBC 14.2 H RBC 4.35 Hgb 12.2 Hct 37.0 MCV 85.1 MCH 28.0 MCHC 33.0 RDW Std Deviation 41.1 RDW Coeff of Karthikeyan 13.2 Plt Count 364 MPV 11.9 Immature Gran % (Auto) 0.200 Neut % (Auto) 91.6 H Lymph % (Auto) 3.3 L Elk % (Auto) 4.6 Eos % (Auto) 0.0 Baso % (Auto) 0.3 Absolute Neuts (auto) 13.0 H Absolute Lymphs (auto) 0.47 L Nucleated RBC % 0 Sodium 132 L Potassium 4.0 Chloride 94 L Carbon Dioxide 18.0 L Anion Gap 20 H BUN 15 Creatinine 0.78 Estim Creat Clear Calc 47.10 L Est GFR (MDRD) Non-Af 75 BUN/Creatinine Ratio 19.4 Glucose 152 H Lactic Acid 1.9 Calcium 10.1 Total Bilirubin 0.54 AST 44 H ALT 16 Alkaline Phosphatase 93 Total Protein 8.6 H Albumin 4.5 Globulin 4.1 Albumin/Globulin Ratio 1.1 Lipase 32 Urine Color Straw Urine Clarity Sl. Cloudy Urine pH 7.0 Ur Specific [place] 1.010 Urine Protein 30 H Urine Glucose (UA) Normal Urine Ketones 15 H Urine Occult Blood 25 H Urine Nitrite Negative Urine Bilirubin Negative Urine Urobilinogen Normal Ur Leukocyte Esterase 100 H Urine RBC 0-5 SEEN Urine WBC 0-5 SEEN Ur Squamous Epith Cells 0-5 SEEN Urine Bacteria 0 SEEN Urine Mucus 0 SEEN Radiography Diagnostic Testing: Clinical Impression(s) from Imaging Studies Abdomen/Pelvis CT 05/18/25 18:14 IMPRESSION: 1. Mildly prominent small bowel loops with air-fluid levels, likely acute enteritis or an ileus. Nodefinite transition point seen, however early/partial SBO is not excluded. 2. Colonic diverticulosis without signs of diverticulitis. 3. Small hyperdense left renal lesion, may represent a complex cyst. 4. Bilateral pulmonary nodules, with no significant change since the prior study Reading Location: [facility] Discharge Plan Triage Chief Complaint: Abd Pain ED Provider: Jeffery Mcclain Dx/Rx/DC Orders Prescriptions: No Action Adult 50 Plus Probiotic 4 billion cell capsule 4,000 mmu cells PO DAILY Rx Instructions: administer with a meal famotidine [Zantac-360 (famotidine)] 20 mg tablet 20 mg PO QDAY metoprolol succinate [Toprol XL] 50 mg tablet extended release 24 hr 50 mg PO QDAY Qty: 90 3RF levothyroxine 75 mcg tablet 50 mcg PO QDAY Multivitamins,Therapeutic tablet 1 tab PO DAILY Calcium Carbonate/Vitamin D tablet 1 tab PO DAILY Primary Care Provider: Lela Interiano NP Referrals: Lela Interiano NP, TEST BAKER-C [Primary Care Provider] - Print Language: Nigerien What to do if you have Problems For any increased pain, shortness of breath, bleeding, nausea or vomiting, chestpain, or any unexpected problems, contact your Primary Care Provider. Call [facility] ([phone]) or report tothe closest Emergency Room. Call 911 if necessary. 05/18/252201 Cosigner Signature (if applicable): CC: TEST BAKER-C Lela Interiano ~ Signed [facility]08-07-2025 Radiology Diagnostic study note [facility] Imaging Services [address] [place], [place] [address] Abdomen/Pelvis W IV Cont ONLY MR#: [id number] Acct: [id number] Name: LUZ CLANCY Rep #: [id number] : 1940 F 85 From: Maribeth Kent MD PCP: MARILEE Partida Status: REG ER Study:Abdomen/Pelvis W IV Cont ONLY Date of E xam: 05/18/25 Exam# [id number] Ordering Dr: Jeffery Zambrano DO PROCEDURE: ABDOMEN/PELVIS W IV CONT ONLY 05/18/2025 REASON FOR EXAM: LOWER ABDOMINAL PAIN. Nausea/vomiting today. History of hysterectomy, tubal ligation and hypertension. TECHNIQUE: ABDOMEN/PELVIS W IV CONT ONLY Coronal and Sagittal reconstruction series were provided. CONTRAST: Isovue 370 VOLUME: 70 mL One or more dose reduction techniques were used (e.g., Automated exposure control, adjustment of the mA and/or kV according to patient size, use of iterative reconstruction technique. RADIATION DOSE SUMMARY: CTDlvol: 16.62, 11.46 mGy DLP: 526.50 mGycm FINDINGS: LUNG BASES: Multiple similar-appearing pulmonary nodules again seen bilaterally, the largestis 8.6 mm in the lingula. Right lower lobe calcified granuloma. Mild scattered atelectasis/scarring. LIVER: Unremarkable. GALLBLADDER: Small calcified stone. BILE DUCTS: No ductal dilation. PANCREAS: Unremarkable. SPLEEN: Unremarkable. ADRENAL GLANDS: Unremarkable. KIDNEYS: The kidneys enhance symmetrically. Multiple hypodense lesions bilaterally, the largest is 3.0 cm. Hyperdense 0.4 cm exophytic inferolateral left renal lesion, possibly a complex. No hydronephrosis or hydroureter. STOMACH AND BOWEL: Mildly prominent small bowel loops with air-fluid levels and adjacent mesentericstranding and fluid. No definite small bowel transition point seen. Fluid present in the ascending and transverse colon. Noperforation. No wall thickening. Colonic diverticulosis. No CT evidence of colitis or acute diverticulitis. APPENDIX: Normal-appearing appendix. No CT evidence for appendicitis. RETRO/PERITONEUM: Mild mesenteric and pelvic fluid. No free air or focal fluid collections. LYMPH NODES: No lymphadenopathy. PELVIC ORGANS: Unremarkable urinary bladder. Prior hysterectomy. VASCULATURE: No aortic aneurysm. Mild scattered calcified atherosclerosis. ABDOMINAL WALL AND SOFT TISSUES: Small fat-containing infraumbilical hernia.. BONES: No fracture or suspicious osseous abnormality. Degenerative changes of the spine. CT/Abdomen/Pelvis W IV Cont ONLY IMPRESSION: 1. Mildly prominent small bowel loops with air-fluid levels, likely acute enteritis or an ileus. Nodefinite transition point seen, however early/partial SBO is not excluded. 2. Colonic diverticulosis without signs of diverticulitis. 3. Small hyperdense left renal lesion, may represent a complex cyst. 4. Bilateral pulmonary nodules, with no significant change since the prior study Reading Location: [id number] CC: MARILEE Interiano; Dr. Jeffery Hernandez-DO Will ~ Rug Receiving Clerk: Signed [facility]08-07-2025 Discharge summary Author Jeffery Mcclain [facility] Note Date/Time May 18, 2025 10: 12pm [facility] Medical Records Department [address] [place] [address] Emergency Department Summary 05/18/25 MR#: [id number] Acct: [id number] Name: LUZ CLANCY Rep #:[id number] : 1940 85 From: Jeffery escobar DO PCP: MARILEE Partida Status:REG ER Location: ED ADDENDUM by Dr. Jeffery Mcclain DO on 05/18/25 at 2212 Patient has a history of hysterectomy therefore she did not have abdominal surgery which makes early small bowel obstruction a possibility 05/18/252211<Electronically signed by Jeffery Mcclain DO> Cosigner Signature (if applicable): cc: TEST BAKER-C Lela Interiano ~* Signed HPI History of Present Illness Chief Complaint: Abd Pain Narrative Narrative: Chief complaint and HPI: Lower abdominal pain. 85-year-old female with past medical history of diverticulosis, GERD, hypothyroidism, HTN presents for evaluation of lower abdominal pain. Patient states yesterday she began feeling nauseous. Today began having lower abdominal pain with vomiting. Nonbloody. She denies any fever, chills, shortness of breath, chest pain, diarrhea, constipation, dysuria. States she feels bloated. Denies any abdominal surgeries. Review of systems: See HPI Medications: As listed on the chart Allergies: As listed on the chart PFSH: Per chart Vital signs: As listed on the chart. Reviewed. Physical exam: Gen: A&O x3, NAD Head: Normocephalic, atraumatic Eyes: No sclera icterus, conjunctiva clear ENT: Moist mucous membranes Neck: Trachea midline, No JVD CV: RRR, no murmurs, no peripheral edema Resp: Lungs CTA BL, no w/r/c GI: Abd soft, non-distended, mildly tender to palpation in the bilateral lower quadrant, no r/r/g : No CVA tenderness Musc: Full ROM, no deformity Skin: Warm, dry Neuro: Alert, oriented, grossly intact, sensation intact Psych: Cooperative, appropriate mood and affect [facility] Medical History Tachycardia Diverticulosis Uncontrolled hypertension Cancer Gastric reflux Pulmonary nodule Home Medications ?Medication ?Instructions ?Recorded ?Last Taken ?Type Calcium Carbonate/Vitamin D 1 tab PO DAILY 08/01/13 History Multivitamins,Therapeutic 1 tab PO DAILY 08/01/1308/12 History lactobacillus combination no.9 4 4,000 mmu cells PO DA NURIS 03/23/23 Unknown History billion cell capsule (Adult 50 Plus Probiotic) famotidine 20 mg tablet 20 mg PO QDAY 12/01/24 Unkno wn History (Zantac-360 (famotidine)) metoprolol succinate 50 mg 50 mg PO QDAY #90 tabs 12/06 Unknown Rx tablet,extended release 24 hr (Toprol XL) levothyroxine 75 mcg tablet 50 mcg PO QDAY 04/12/25 Un known History Allergy/AdvReac Type Severity Reaction Status Date / Time doxycycline AdvReac Severe Nausea Verified 05/18/25 17:46 erythromycin base AdvReac Severe Nausea Verified 05/18/25 17:46 (Erythromycin Base) clindamycin AdvReac Intermediate Thrush Verified 05/18/25 17:46 Penicillins AdvReac Intermediate Hives Verified 05/18/25 17:46 Family History Mother Colon cancer Breast cancer Daughter Thyroid disorder Surgical History History of tubal ligation History of hysterectomy Social History household members: none Smoking Status: Never smoker alcohol intake: never substance use type: does not use EXAM Physical Exam Const Vital Signs: 05/18/25 17:46 05/18/25 18:48 05/18/25 19:20 Temperature 98.4 F 98.1 F Temperature Source Oral Oral Pulse Rate 125 H 122 H 117 H Respiratory Rate 20 H 20 H 19 H Blood Pressure 164/106 H 159/106 H Blood Pressure Mean 125 123 Pulse Ox 100 100 99 Oxygen Delivery Method Room Air Room Air 05/18/25 19:30 05/18/25 19:45 05/18/25 19:55 Temperature 99.1 F Temperature Source Oral Pulse Rate 114 H 118 H 120 H Respiratory Rate 21 H 21 H 20 H Blood Pressure 149/97 H 149/97 H Blood Pressure Mean 114 114 Pulse Ox 99 99 100 Oxygen Delivery Method Room Air 05/18/25 19:55 05/18/25 20:00 05/18/25 20:05 Temperature Temperature Source Pulse Rate 117 H Respiratory Rate 17 Blood Pressure 149/97 H 154/89 H 151/89 H Blood Pressure Mean 115 108 108 Pulse Ox 100 Oxygen Delivery Method 05/18/25 20:10 05/18/25 20:15 05/18/25 20:20 Temperature Temperature Source Pulse Rate 117 H 116 H 118 H Respiratory Rate 18 22 H 19 H Blood Pressure 147/89 H 148/86 H 148/103 H Blood Pressure Mean 107 104 118 Pulse Ox 99 98 100 Oxygen Delivery Method 05/18/25 20:25 05/18/25 20:30 05/18/25 20:35 Temperature Temperature Source Pulse Rate 116 H 117 H Respiratory Rate 24 H 25 H Blood Pressure 152/91 H 149/88 H 153/89 H Blood Pressure Mean 111 107 108 Pulse Ox 100 99 Oxygen Delivery Method 05/18/25 20:40 05/18/25 20:45 05/18/25 20:50 Temperature Temperature Source Pulse Rate 115 H 115 H Respiratory Rate 18 17 Blood Pressure 154/89 H 152/89 H 150/88 H Blood Pressure Mean 109 107 106 Pulse Ox 98 100 Oxygen Delivery Method 05/18/25 21:00 05/18/25 21:00 05/18/25 21:15 Temperature 98.4 F Temperature Source Oral Pulse Rate 119 H 123 H 119 H Respiratory Rate 20 H 22 H 21 H Blood Pressure 151/99 H Blood Pressure Mean 116 Pulse Ox 100 100 100 Oxygen Delivery Method Room Air 05/18/25 21:30 Temperature Temperature Source Pulse Rate 122 H Respiratory Rate 14 Blood Pressure Blood Pressure Mean Pulse Ox 98 Oxygen Delivery Method MDM MDM MDM Narrative Medical decision making narrative: 85-year-old female with past medical history of diverticulosis, GERD, hypothyroidism, HTN presents for evaluation of lower abdominal pain. Patient states yesterday she began feeling nauseous. Today began having lower abdominalpain with vomiting. Nonbloody. Differential diagnosis includes but not limitedto viral gastroenteritis, diverticulitis, appendicitis, electrolyte abnormality,UTI, pancreatitis, biliary pathology. NS bolus, morphine, Zofran ordered for symptoms. Abdominal pain workup ordered including CT abdomen pelvis. CBC with leukocytosis of 14.2. No anemia. CMP shows mild hyponatremia at 132 with aniongap of 20. Patient has no ERNIE or renal insufficiency. Her glucose is 152. Lactic acid unremarkable. Suspect abnormalities are likely from dehydration from nausea and vomiting. Another NS bolus ordered. Will order another BMP. CMP shows mild AST elevation. Lipase unremarkable. UA positive for ketones butnegative for UTI or glucose. CT abdomen pelvis shows mildly prominent small bowel loops with air-fluid levels, likely acute enteritis or ileus. No definitive transition point seen however early/partial SBO not excluded. Patient has never had abdominal surgeries, not high risk for an SBO. diverticulosis without diverticulitis. Small hyperdense left renal lesion, may represent a complex cyst. Bilateral pulmonary nodules without significant change. Given the findings, I did reach out to Dr. Lerner. No further recommendations. On reevaluation, patient is still tachycardic and endorsing nausea. Reglan ordered. Will reassess. On assessment, patient has received about 1500 mL of fluid, she is still tachycardic in the 120s. EKG ordered. EKGshows wide QRS tachycardia. Left bundle branch block. Heart rate 122. This was personally reviewed and interpreted by me. Given patient's continued tachycardia, nausea, and dehydration, I do think that patient would benefit fromadmission for observation and continued hydration. I spoke with Dr. Cates, the hospitalist service. Recommends NG be placed to see if this helps with symptoms. Recommended metoprolol for the tachycardia. Metoprolol was ordered. I did speak with the patient about placing an NG tube. Since she is not actively vomiting she would like to hold off at this time. Patient will be admitted. Impression: 1. Nausea and vomiting, enteritis versus ileus versus early small bowel obstruction 2. Dehydration secondary to #1 Lab Data Labs: Laboratory Results - last 24 hr 05/18/25 05/18/25 05/18/25 17:55 18:57 19:10 WBC 14.2 H RBC 4.35 Hgb 12.2 Hct 37.0 MCV 85.1 MCH 28.0 MCHC 33.0 RDW Std Deviation 41.1 RDW Coeff of Karthikeyan 13.2 Plt Count 364 MPV 11.9 Immature Gran % (Auto) 0.200 Neut % (Auto) 91.6 H Lymph % (Auto) 3.3 L Elk % (Auto) 4.6 Eos % (Auto) 0.0 Baso % (Auto) 0.3 Absolute Neuts (auto) 13.0 H Absolute Lymphs (auto) 0.47 L Nucleated RBC % 0 Sodium 132 L Potassium 4.0 Chloride 94 L Carbon Dioxide 18.0 L Anion Gap 20 H BUN 15 Creatinine 0.78 Estim Creat Clear Calc 47.10 L Est GFR (MDRD) Non-Af 75 BUN/Creatinine Ratio 19.4 Glucose 152 H Lactic Acid 1.9 Calcium 10.1 Total Bilirubin 0.54 AST 44 H ALT 16 Alkaline Phosphatase 93 Total Protein 8.6 H Albumin 4.5 Globulin 4.1 Albumin/Globulin Ratio 1.1 Lipase 32 Urine Color Straw Urine Clarity Sl. Cloudy Urine pH 7.0 Ur Specific [place] 1.010 Urine Protein 30 H Urine Glucose (UA) Normal Urine Ketones 15 H Urine Occult Blood 25 H Urine Nitrite Negative Urine Bilirubin Negative Urine Urobilinogen Normal Ur Leukocyte Esterase 100 H Urine RBC 0-5 SEEN Urine WBC 0-5 SEEN Ur Squamous Epith Cells 0-5 SEEN Urine Bacteria 0 SEEN Urine Mucus 0 SEEN Radiography Diagnostic Testing: Clinical Impression(s) from Imaging Studies Abdomen/Pelvis CT 05/18/25 18:14 IMPRESSION: 1. Mildly prominent small bowel loops with air-fluid levels, likely acute enteritis or an ileus. No definite transition point seen, however early/partial SBO is not excluded. 2. Colonic diverticulosis without signs of diverticulitis. 3. Small hyperdense left renal lesion, may represent a complex cyst. 4. Bilateral pulmonary nodules, with no significant change since the prior study Reading Location: [facility] Discharge Plan Triage Chief Complaint: Abd Pain ED Provider: Jeffery Mcclain Dx/Rx/DC Orders Prescriptions: No Action Adult 50 Plus Probiotic 4 billion cell capsule 4,000 mmu cells PO DAILY Rx Instructions: administer with a meal famotidine [Zantac-360 (famotidine)] 20 mg tablet 20 mg PO QDAY metoprolol succinate [Toprol XL] 50 mg tablet extended release 24 hr 50 mg PO QDAY Qty: 90 3RF levothyroxine 75 mcg tablet 50 mcg PO QDAY Multivitamins,Therapeutic tablet 1 tab PO DAILY Calcium Carbonate/Vitamin D tablet 1 tab PO DAILY Primary Care Provider: Lela Interiano NP Referrals: Lela Interiano NP, TEST BAKER-C [Primary Care Provider] - Print Language: Nigerien What to do if you have Problems For any increased pain, shortness of breath, bleeding, nausea or vomiting, chestpain, or any unexpected problems, contact your Primary Care Provider. Call [facility] ([phone]) or report to the closest Emergency Room. Call 911 if necessary. 05/18/252201 <Electronically signed by Jeffery HernandezWill BUTTERFIELD> Cosigner Signature (if applicable): CC: MARILEE Interiano ~ Signed [facility] Work Phone: 1(177) 809-206907-30-2025 Radiology Diagnostic study note [facility] Imaging Services [address] [place] [address] Chest Insp/Exp 2 View MR#: [id number] Acct: [id number] Name: LUZ CLANCY Rep #: [id number] : 1940 F 85 From: Josep Gonzales MD PCP: MARILEE Partida Status: REG CLI Study:Chest Insp/Exp 2 View Date of Exam: 05/10/25 Exam# [id number] Ordering Dr: Brian Gonzales MD EXAM: Two-view [...] stable, without evidence of cardiomegaly. Reading Location: [place] [address] CC: MARILEE Interiano; Dr. Brian Gonzales MD ~ Rug Receiving Clerk: Signed [facility]07-30-2025 Radiology Diagnostic study note [facility] Imaging Services [address] [place], [place] [id number] Biopsy/Inj or Needle Placement MR#: [id number] Acct: [id number] Name: LUZ CLANCY Rep #: [id number] : 1940 F 85 From: Josep Gonzales MD PCP: Lela Interiano NP-C Status: REG CLI Study:Biopsy/Inj or Needle Placement Date of Exam: 05/10/25 Exam# [id number] Ordering Dr: Scot Bernal MD EXAM: CT-guided left lower lobe [...] placement of a 15 cm 20 gauge [employer] core biopsy system. 5 samples were then obtained. No complication was encountered, in the patient left the department in good condition. CT/Biopsy/Inj or Needle Placement IMPRESSION: Successful core biopsy of left lower lobe pulmonary mass. Pathology results pending. Reading Location: [place] [address] CC: TEST BAKER-C Lela Interiano; Dr. Carlos Bernal MD ~ Rug Receiving Clerk: Signed [facility]07-30-2025 Radiology Diagnostic study note [facility] Imaging Services [address] [place], [place] [address] Chest Insp/Exp 2 View MR#: [id number] Acct: [id number] Name: LUZ CLANCY Rep #: [id number] : 1940 F 85 From: Josep Gonzales MD PCP: Lela Interiano, SOURAV-C Status: REG CLI Study:Chest Insp/Exp 2 View Date of Exam: 05/10/25 Exam# [id number] Ordering Dr: Brian Gonzales MD EXAM: AP [...] unremarkable; no evidence of cardiomegaly. Reading Location: [place] [address] CC: TEST BAKER-C Lela Interiano; Dr. Brian Gonzales MD ~ Rug Receiving Clerk: Signed [facility]07-08-2025 Radiology Diagnostic study note [facility] Imaging Services [address] [place] [id number] Chest, Abd, Pel w/Contrast MR#: [id number] Acct: [id number] Name: LUZ CLANCY Rep #: [id number] : 1940 F 85 From: Gregg Barba MD PCP: MARILEE Partida Status: REG CLI Study:CT Chest, Abd, Pel w/Contrast Date of E xam: 04/17/25 Exam# [id number] Ordering Dr: Scot Bernal MD PROCEDURE: CT [...] 7.0 x 4.2 x 3.9 cm extending intothe mediastinum between the left mainstem bronchus in [...] in the posterior basilar segment of the lowerlobe of both lungs and the middle lobe [...] of the abdominal aorta. The inferior vena cavaand portal venous system are normal. Peritoneum / [...] 3. Other findings as noted. Reading Location: [facility] CC: MARILEE Interiano; Dr. Carlos Bernal MD ~ Rug Receiving Clerk: Signed [facility] Work Phone: 1(290) 124-854307-02-2025 Evaluation note* Diagnosis Onset Date Resolution Status Admit Date History of endometrial cancer chroni c April [...] Uncontrolled hypertension acute May 16, 2025 11:32am [facility] Work Phone: 1(833) 584-247007-02-2025 Evaluation note* Diagnosis Onset Date Resolution Status Admit Date History of endometrial cancer chroni c April [...] Uncontrolled hypertension acute May 16, 2025 11:32am Intractable nausea and vomiting acut e May 18, 2025 9:54pm [facility] Work Phone: 1(261) 842-118707-02-2025 Evaluation note* Diagnosis Onset Date Resolution Status Admit Date History of endometrial cancer chroni c April [...] Uncontrolled hypertension acute May 16, 2025 11:32am Intractable nausea and vomiting acut e May 19, 2025 11:54am [facility] Work Phone: 1(336) 999-401107-02-2025 Evaluation note* Diagnosis Onset Date Resolution Status Admit Date History of endometrial cancer chroni c April 12, 2025 2:42pm Lung nodule, multiple chronic Apr 2:42pm Uterine cancer chronic April 12, 2025 2:42pm Lung mass acute April 24 3:43pm History of endometrial cancer chroni c April 24, 2025 3:43pm Uterine cancer chronic April 24, 2025 3:43pm Pulmonary nodule acute April 8:00am Tachycardia acute May 16, 025 11:32am Uncontrolled hypertension acute May 16, 2025 11:32am Intractable nausea and vomiting resolved May 19, 2025 11:54am [facility] Work Phone: 1(253) 954-921707-02-2025 Evaluation note* Diagnosis Onset Date Resolution Status Admit Date History of endometrial cancer chroni c April [...] Uncontrolled hypertension acute May 16, 2025 11:32am Intractable nausea and vomiting resolved May 19, 2025 11:54am Lung mass acute June 05, 2 025 2:44pm History of endometrial cancer chroni c June 05, 2025 2:44pm Uterine cancer chronic May 2:44pm [facility] Work Phone: 1(201) 958-346607-02-2025 Evaluation note* Diagnosis Onset Date Resolution Status Admit Date History of endometrial cancer chroni c April 12, 2025 2:42pm Lung nodule, multiple chronic Apr 2:42pm Uterine cancer chronic April 12, 2025 2:42pm Lung mass acute April 24 3:43pm History of endometrial cancer chroni c April 24, 2025 3:43pm Uterine cancer chronic April 24, 2025 3:43pm Pulmonary nodule acute April 8:00am Tachycardia acute May 16, 025 11:32am Uncontrolled hypertension acute May 16, 2025 11:32am Intractable nausea and vomiting resolved May 19, 2025 11:54am Metastasis to lung acute June 05, 2025 2:44pm Uterine cancer chronic May h2024 2:44pm Metastasis to lung acute June 08, 2025 10:23am Uterine cancer chronic May 10:23am [facility] Work Phone: 1(798) 902-628407-02-2025 [facility] [address] [place] [address] OFFICE VISIT Date of Service: 04/12/25 1455 MR#: [id number] Acct: [id number] Name: LUZ CLANCY Rep #: [id number] : 1940 From: Carlos Bernal MD Age/Sex: 85/F [place] [facility] [place]: Signed HPI Subjective Date of Service [...] is on observation, comes in for f/u. [facility] Medical History Tachycardia Diverticulosis Uncontrolled hypertension [...] Date (if applicable) CC: MARILEE Interiano ~ [facility]07-02-2025 Progress note Author Carlos Bernal [facility] Note Date/Time April 12, 2025 3:23p m [facility] [address] [place], [place] [address] [address] OFFICE VISIT Date of Service: 04/12/25 1455 MR#: [id number] Acct: [id number] Name: LUZ CLANCY Rep #: [id number] : 1940 From: Carlos Bernal MD Age/Sex: 85/F Location: [facility] Status: Signed HPI Subjective Date of Service [...] is on observation, comes in for f/u. [facility] Medical History Tachycardia Diverticulosis Uncontrolled hypertension [...] Date (if applicable) CC: MARILEE Interiano ~ [facility] Work Phone: 1(665) 913-229004-02-2025 Evaluation note* Diagnosis Onset Date Resolution Status Admit Date Tachycardia acute January 11 1:25pm History of endometrial cancer acute April 12, 2025 2:42pm Lung nodule, multiple chronic Apr 2:42pm Uterine cancer chronic April 12, 2025 2:42pm [facility] Work Phone: 1(179) 989-322704-02-2025 Evaluation note* Diagnosis Onset Date Resolution Status Admit Date Tachycardia acute January 11 1:25pm History of endometrial cancer acute April 12, 2025 2:42pm Lung nodule, multiple chronic Apr 2:42pm Uterine cancer chronic April 12, 2025 2:42pm Pulmonary nodule acute April 3:45pm [facility] Work Phone: 1([phone]) 567-481704-02-2025 Evaluation note* Diagnosis Onset Date Resolution Status [...] Uterine cancer chronic April 24, 2025 3:43pm [facility] Work Phone: 1(804) 136-272901-10-2025 Evaluation note* Diagnosis Onset Date Resolution Status Admit Date Strain of muscle at thorax level resolved October 21 6:19am [facility] Work Phone: [phone] 642-459312-28-2021 NoteHNO ID: [id number] Author: Seble Vann APRN.LINE INSTALLER TROLLEY Service: ? Author Type: Nurse Practitioner Type: [...] She had + exposure to COVID on [place]. She is accompanied by her daughter and son in law who are here for same. The history is provided by the patient. No foreign language interpreter was used. Illness The current episode started [...] Laterality Date - COLONOSCOP W/ OR W/O [facility]C 06/17/2006 Colonoscopy - COLONOSCOP W/ OR W/O [facility] 07/15/11 - COLONOSCOP W/ OR W/O [facility] 07/17/16 Colonoscopy (needs MAC next [...] wall: No tenderness. Abd (more content not included)...[facility] Work Phone: Evaluation note* Diagnosis Onset Date Resolution Status History of endometrial cancer acute Lung nodule, multiple chroni c Uterine cancer chronic [facility] Work Phone: Evaluation note* Diagnosis Onset Date Resolution Status Acute sinusitis acute Cough acute PND (post-nasal drip) acute Increased urinary frequency acute [facility] Work Phone: Reason for referral (narrative)No reason for referral information availableWTrinity [facility] Work Phone: Summary Purpose Family History Relationship Condition Age at Onset Recorded Date/T rocky mother Malignant neoplasm of colon Unknown Malignant neoplasm of breast Unknown daughter Disorder of thyroid Unknown Advance Directives Advance Directive Response Recorded Date/ Time Advance Directives No August 3:25pm Living Will Yes February 16, 2022 12 :59pm Power of Hide Or Skin Buffer Yes February 16, 2022 12:59pm Advance Directive Response Recorded Date/ Time Name of Medical Power of Hide Or Skin Buffer Eva Mccallum February 16, 2022 12:59pm Advance Directives No August 3:25pm Living Will Yes February 16, 2022 12 :59pm Power of Hide Or Skin Buffer Yes February 16, 2022 12:59pm Advance Directive Response Recorded Date/ Time Advance Directives No November 7:49am Living Will Yes November 7:49am Power of Hide Or Skin Buffer Yes December 10, 2023 7:49am Advance Directive Response Recorded Date/ Time Advance Directives No November 7:49am Advance Directive Response Recorded Date/ Time Living Will No August 23 3:25pm Do you have a Healthcare Power of Hide Or Skin Buffer? No August 23, 2013 3:25pm Advance Directives No November 7:49am Advance Directive Response Recorded Date/ Time Living Will No August 23 3:25pm Do you have a Healthcare Power of Hide Or Skin Buffer? No August 23, 2013 3:25pm Do you have a Healthcare Power of Hide Or Skin Buffer? Yes May 18, 2025 5:45pm Advance Directives No November 7:49am Advance Directive Response Recorded Date/ Time Living Will No August 23, 2 013 3:25pm Do you have a Healthcare Pow er of Hide Or Skin Buffer? No August 23, 2013 3:25pm Do you have a Healthcare Pow er of Hide Or Skin Buffer? Yes May 18, 2025 10:52pm Name of Medical Power of Hide Or Skin Buffer adrian gibson May 18, 2025 10:52pm Advance Directives No November 7:49am Chief Complaint [...] 11: 32am Uncontrolled hypertension May 16 11:32am Chief Complaint Admit Date SVT February 03, 2025 6:4 7am SVT February 07, 2025 7:4 5am 1YR LABS PRIOR April 12, 2025 2:42p m Other abnormal tumor markers April 17 025 12:36pm 2WKS NO LABS REVIEW CT April 24, 2025 3 :43pm ONC/HEM May 02, 2025 8:00 am Other nonspecific abnormal finding of [place] May 10, 2025 7:36am 4 M FU May 16, 2025 11: 32am ? PSBO May 18, 2025 9:5 4pm Chief Complaint Admit Date SVT February 03, 2025 6:4 7am SVT February 07, 2025 7:4 5am 1YR LABS PRIOR April 12, 2025 2:42p m Other abnormal tumor markers April 17 12:36pm 2WKS NO LABS REVIEW CT April 24, 2025 3 :43pm ONC/HEM May 02, 2025 8:00 am Other nonspecific abnormal finding of [place] field May 10, 2025 7:36am 4 M FU May 16, 2025 11: 32am ? PSBO May 18, 2025 9:5 4pm ? PSBO May 19, 2025 7:4 8am ? PSBO May 19, 2025 8:5 2am Reason for Visit Admit Date History of [...] 11: 32am Uncontrolled hypertension May 16 11:32am Intractable nausea and vomiting May 182024 9:54pm Chief Complaint Admit Date SVT February 03, [...] M FU May 16, 2025 11: 32am ? PSBO May 18, 2025 9:5 4pm ? PSBO May 19, 2025 7:4 8am ? PSBO May 19, 2025 8:5 2am ? PSBO May 19, 2025 11: 54am ? PSBO May 20, 2025 7:2 9am ? PSBO May 20, 2025 8:3 8am ? PSBO May 21, 2025 8: 31am ? PSBO May 21, 2025 9: 34am ? PSBO May 22, 2025 12 :16pm Reason for Visit Admit Date History of [...] 11: 32am Uncontrolled hypertension May 16 11:32am Intractable nausea and vomiting May 192024 11:54am Chief Complaint Admit Date SVT February 07, 2025 7:4 5am 1YR LABS PRIOR April 12, 2025 2:42p m Other abnormal tumor markers April 17, 025 12:36pm 2WKS NO LABS REVIEW CT April 24, 2025 3 :43pm ONC/HEM May 02, 2025 8:00 am Other nonspecific abnormal finding of [place] field May 10, 2025 7:36am 4 M FU May 16, 2025 11: 32am ? PSBO May 18, 2025 9:5 4pm ? PSBO May 19, 2025 7:4 8am ? PSBO May 19, 2025 8:5 2am ? PSBO May 19, 2025 11: 54am ? PSBO May 20, 2025 7:2 9am ? PSBO May 20, 2025 8:3 8am ? PSBO May 21, 2025 8: 31am ? PSBO May 21, 2025 9: 34am ? PSBO May 22, 2025 12 :16pm ? PSBO May 23, 2025 12 :25pm Chief Complaint Admit Date SVT February 07, 2025 7:4 5am 1YR LABS PRIOR April 12, 2025 2:42p m Other abnormal tumor markers April 17, 2 025 12:36pm 2WKS NO LABS REVIEW CT April 24, 2025 3 :43pm ONC/HEM May 02, 2025 8:00 am Other nonspecific abnormal finding of [place] field May 10, 2025 7:36am 4 M FU May 16, 2025 11: 32am ? PSBO May 18, 2025 9:5 4pm ? PSBO May 19, 2025 7:4 8am ? PSBO May 19, 2025 8:5 2am ? PSBO May 19, 2025 11: 54am ? PSBO May 20, 2025 7:2 9am ? PSBO May 20, 2025 8:3 8am ? PSBO May 21, 2025 8: 31am ? PSBO May 21, 2025 9: 34am ? PSBO May 22, 2025 12 :16pm ? PSBO May 23, 2025 12 :25pm 6WKS NO LABS REVIEW PATH/PET May 2:44pm Reason for Visit Admit Date History of [...] 11: 32am Uncontrolled hypertension May 16 11:32am Intractable nausea and vomiting May 192024 11:54am Lung mass June 05, 2025 2: 44pm History of endometrial cancer May 2:44pm Uterine cancer June 05, 2025 2: 44pm Chief Complaint Admit Date 1YR LABS PRIOR April 12, 2025 2:42p m Other abnormal tumor markers April 17, 12:36pm 2WKS NO LABS REVIEW CT April 24, 2025 3 :43pm ONC/HEM May 02, 2025 8:00 am Other nonspecific abnormal finding of [place] field May 10, 2025 7:36am 4 M FU May 16, 2025 11: 32am ? PSBO May 18, 2025 9:5 4pm ? PSBO May 19, 2025 7:4 8am ? PSBO May 19, 2025 8:5 2am ? PSBO May 19, 2025 11: 54am ? PSBO May 20, 2025 7:2 9am ? PSBO May 20, 2025 8:3 8am ? PSBO May 21, 2025 8: 31am ? PSBO May 21, 2025 9: 34am ? PSBO May 22, 2025 12 :16pm ? PSBO May 23, 2025 12 :25pm 6WKS NO LABS REVIEW PATH/PET May 2:44pm CHEMO ED June 08, 2025 10 :23am Reason for Visit Admit Date History of [...] 11: 32am Uncontrolled hypertension May 16 11:32am Intractable nausea and vomiting May 192024 11:54am Metastasis to lung June 05, 2025 2: 44pm Uterine cancer June 05, 2025 2: 44pm Metastasis to lung June 08, 2025 10 :23am Uterine cancer June 08, 2025 10 :23am Additional Source Comments INFORMATION SOURCE (unrecogn ized section and content) DATE CREATED AUTHOR 12/31/2021 [facility] DATE CREATED AUTHOR AUTHOR'S ORGANIZ ATION 05/24/2025 [facility] DATE CREATED AUTHOR AUTHOR'S ORGANIZ ATION 06/06/[address] [facility] Goals (unrecognized section and content) Goals [...] Active Member Role/Relationship Status Dates Lela Interiano TEST BAKER, TEST BAKER-C Primary Care Provider Active Team Status: Inactive [...] Inactive Member Role/Relationship Status Dates Lela Interiano TEST BAKER, TEST BAKER-C Primary Care Provider Active Start: February 27, 2025 End: February 27, 2025 Lela Interiano TEST BAKER, TEST BAKER-C Attending Provider Active S tart: February 27, 2025 End: February 27, 2025 Lela Interiano TEST BAKER, TEST BAKER-C Referring Provider Active S tart: February 27, 2025 End: February 27, 2025 Team Status: Inactive Member Role/Relationship Status Dates Dr. Carlos Bernal MD Attending Provider Active S tart: April 12, 2025 End: April 12, 2025 Lela Interiano TEST BAKER, TEST BAKER-C Primary Care Provider Active Start: April 12, 2025 End: April 12, 2025 Lela Interiano TEST BAKER, TEST BAKER-C Referring Provider Active S tart: April 12, [...] Inactive Member Role/Relationship Status Dates Lela Interiano TEST BAKER, TEST BAKER-C Primary Care Provider Active Start: February 27, 2025 End: February 27, 2025 Lela Interiano TEST BAKER, TEST BAKER-C Attending Provider Active S tart: February 27, 2025 End: February 27, 2025 Lela Interiano TEST BAKER, TEST BAKER-C Referring Provider Active S tart: February 27, 2025 End: February 27, 2025 Team Status: Inactive Member Role/Relationship Status Dates Dr. Carlos Bernal MD Attending Provider Active S tart: April 12, 2025 End: April 12, 2025 Lela Interiano TEST BAKER, TEST BAKER-C Primary Care Provider Active Start: April 12, 2025 End: April 12, 2025 Lela Interiano TEST BAKER, TEST BAKER-C Referring Provider Active S tart: April 12, [...] Inactive Member Role/Relationship Status Dates Lela Interiano TEST BAKER, TEST BAKER-C Primary Care Provider Active Start: April 17, 2025 End: April 17, 2025 Dr. Carlos Bernal MD Attending Provider Active S tart: April 17, 2025 End: April 17, 2025 Dr. Carlos Bernal MD Referring Provider Active S tart: April 17, 2025 End: April 17, 2025 Team Status: Inactive Member Role/Relationship Status Dates Lela Interiano TEST BAKER, TEST BAKER-C Primary Care Provider Active Start: April 24, 2025 End: April 24, 2025 Lela Interiano TEST BAKER, TEST BAKER-C Referring Provider Active S tart: April 24, [...] Inactive Member Role/Relationship Status Dates Lela Interiano TEST BAKER, TEST BAKER-C Primary Care Provider Active Start: February 27, 2025 End: February 27, 2025 Lela Interiano TEST BAKER, TEST BAKER-C Attending Provider Active S tart: February 27, 2025 End: February 27, 2025 Lela Interiano TEST BAKER, TEST BAKER-C Referring Provider Active S tart: February 27, 2025 End: February 27, 2025 Team Status: Inactive Member Role/Relationship Status Dates Dr. Carlos Bernal MD Attending Provider Active S tart: April 12, 2025 End: April 12, 2025 Lela Interiano TEST BAKER, TEST BAKER-C Primary Care Provider Active Start: April 12, 2025 End: April 12, 2025 Lela Interiano TEST BAKER, TEST BAKER-C Referring Provider Active S tart: April 12, 2025 End: April 12, 2025 Team Status: Inactive Member Role/Relationship Status Dates Lela Interiano TEST BAKER, TEST BAKER-C Primary Care Provider Active Start: April 17, 2025 End: April 17, 2025 Dr. Carlos Bernal MD Attending Provider Active S tart: April 17, 2025 End: April 17, 2025 Dr. Carlos Bernal MD Referring Provider Active S tart: April 17, 2025 End: April 17, 2025 Team Status: Inactive Member Role/Relationship Status Dates Lela Interiano TEST BAKER, TEST BAKER-C Primary Care Provider Active Start: April 24, 2025 End: April 24, 2025 Lela Interiano TEST BAKER, TEST BAKER-C Referring Provider Active S tart: April 24, [...] Member Role/Relationship Status Dates Lela Interiano NP, TEST BAKER-C Primary Care Provider Active Start: May 10, [...] 2025 End: May 16, 2025 Laney Ferreira TEST BAKER, TEST BAKER-C Attending Provider Active Start: May 16, 2025 End: May 16, 2025 Lela Interiano TEST BAKER, TEST BAKER-C Primary Care Provider Active Start: May 16, 2025 End: May 16, 2025 Team Status: Active Member Role/Relationship Status Dates Lela Interiano TEST BAKER, TEST BAKER-C Primary Care Provider Active Start: May 18, 2025 Dr. Jeffery Mcclain , DO Emergency Provider Activ e Start: May 18, 2025 Dr. Najma Cates MD Admit Provider Active St art: May 18, 2025 Dr. Najma Cates MD Attending Provider Active Start: May 18, 2025 Team Status: Inactive Member Role/Relationship Status Dates Lela Interiano TEST BAKER, TEST BAKER-C Primary Care Provider Active Start: May 10, 2025 End: May 10, 2025 Dr. Carlos Bernal MD Attending Provider Active S tart: May 10, 2025 End: May 10, 2025 Dr. Carlos Bernal MD Referring Provider Active S tart: May 10, 2025 End: May 10, 2025 Dr. Brian Gonzales MD Other Provider Active Sta rt: May 10, 2025 End: May 10, 2025 Team Status: Active Member Role/Relationship Status Dates Lela Interiano TEST BAKER, TEST BAKER-C Primary Care Provider Active Start: May 18, 2025 Dr. Jeffery Mcclain , DO Emergency Provider Activ e Start: May 18, 2025 Dr. Najma Cates MD Admit Provider Active St art: May 18, 2025 Dr. Najma Cates MD Other Provider Active St art: May 18, 2025 Dr. Isaiah Lerner MD Other Provider Active Start: May 18, 2025 Dr. Brian Negrete MD Attending Provider Active Start: May 18, 2025 Team Status: Active Member Role/Relationship Status Dates Lela Interiano TEST BAKER, TEST BAKER-C Primary Care Provider Active Start: May 19, 2025 Dr. Jeffery Mcclain , DO Emergency Provider Activ e Start: May 19, 2025 Dr. Najma Cates MD Admit Provider Active St art: May 19, 2025 Dr. Najma Cates MD Other Provider Active St art: May 19, 2025 Dr. Isaiah Lerner MD Other Provider Active Start: May 19, 2025 Dr. Brian Negrete MD Attending Provider Active Start: May 19, 2025 Dr. Brian Negrete MD Other Provider Active Star t: May 19, 2025 Team Status: Active Member Role/Relationship Status Dates Lela Interiano TEST BAKER, TEST BAKER-C Primary Care Provider Active Start: May 19, 2025 Dr. Jeffery Mcclain DO Emergency Provider Activ e Start: May 19, 2025 Dr. Najma Cates MD Admit Provider Active St art: May 19, 2025 Dr. Najma Cates MD Other Provider Active St art: May 19, 2025 Dr. Isaiah Lerner MD Attending Provider Active Start: May 19, 2025 Dr. Isaiah Lerner MD Other Provider Active Start: May 19, 2025 Dr. Brian Negrete MD Other Provider Active Star t: May 19, 2025 Team Status: Active Member Role/Relationship Status Dates Lela Interiano TEST BAKER, TEST BAKER-C Primary Care Provider Active Start: May 18, 2025 Dr. Jeffery Mcclain DO Emergency Provider Activ e Start: May 18, 2025 Dr. Najma Cates MD Admit Provider Active St art: May 18, 2025 Dr. Najma Cates MD Attending Provider Active Start: May 18, 2025 Dr. Najma Cates MD Other Provider Active St art: May 18, 2025 Dr. Isaiah Lerner MD Other Provider Active Start: May 18, 2025 Team Status: Inactive Member Role/Relationship Status Dates Lela Interiano NP, TEST BAKER-C Primary Care Provider Active Start: May 19, 2025 End: May 22, 2025 Dr. Jeffery Mcclain DO Emergency Provider Activ e Start: May 19, 2025 End: May 22, 2025 Dr. Najma Cates MD Admit Provider Active St art: May 19, 2025 End: May 22, 2025 Dr. Najma Cates MD Other Provider Active St art: May 19, 2025 End: May 22, 2025 Dr. Isaiah Lerner MD Other Provider Active Start: May 19, 2025 End: May 22, 2025 Dr. Joseph Lindsey MD Attending Provider Active Start: May 19, 2025 End: May 22, 2025 Dr. Brian Negrete MD Other Provider Active Star t: May 19, 2025 End: May 22, 2025 Team Status: Active Member Role/Relationship Status Dates Lela Jaydon TEST BAKER, TEST BAKER-C Primary Care Provider Active Start: May 20, 2025 Dr. Jeffery Mcclain DO Emergency Provider Activ e Start: May 20, 2025 Dr. Najma Cates MD Admit Provider Active St art: May 20, 2025 Dr. Najma Cates MD Other Provider Active St art: May 20, 2025 Dr. Isaiah Lerner MD Other Provider Active Start: May 20, 2025 Dr. Brian Negrete MD Attending Provider Active Start: May 20, 2025 Dr. Brain Negrete MD Other Provider Active Star t: May 20, 2025 Team Status: Active Member Role/Relationship Status Dates Lela Interiano TEST BAKER, TEST BAKER-C Primary Care Provider Active Start: May 20, 2025 Dr. Jeffery Mcclain DO Emergency Provider Activ e Start: May 20, 2025 Dr. Najma Cates MD Admit Provider Active St art: May 20, 2025 Dr. Najma Cates MD Other Provider Active St art: May 20, 2025 Dr. Isaiah Lerner MD Other Provider Active Start: May 20, 2025 Dr. Brian Negrete MD Other Provider Active Star t: May 20, 2025 Dr. Geovanna Nino MD Attending Provider Active Start: May 20, 2025 Team Status: Active Member Role/Relationship Status Dates Lela Interiano TEST BAKER, TEST BAKER-C Primary Care Provider Active Start: May 21, 2025 Dr. Jeffery Mcclain DO Emergency Provider Activ e Start: May 21, 2025 Dr. Najma Cates MD Admit Provider Active St art: May 21, 2025 Dr. Najma Cates MD Other Provider Active St art: May 21, 2025 Dr. Isaiah Lerner MD Other Provider Active Start: May 21, 2025 Dr. Brian Negrete MD Attending Provider Active Start: May 21, 2025 Dr. Brian Negrete MD Other Provider Active Star t: May 21, 2025 Team Status: Active Member Role/Relationship Status Dates Lela Interiano TEST BAKER, TEST BAKER-C Primary Care Provider Active Start: May 21, 2025 Dr. Jeffery Mcclain DO Emergency Provider Activ e Start: May 21, 2025 Dr. Najma Cates MD Admit Provider Active St art: May 21, 2025 Dr. Najma Cates MD Other Provider Active St art: May 21, 2025 Dr. Isaiah Lerner MD Other Provider Active Start: May 21, 2025 Dr. Brian Negrete MD Other Provider Active Star t: May 21, 2025 Dr. Geovanna Nino MD Attending Provider Active Start: May 21, 2025 Team Status: Active Member Role/Relationship Status Dates Lela Interiano NP, TEST BAKER-C Primary Care Provider Active Start: May 22, 2025 Dr. Jeffery Mcclain DO Emergency Provider Activ e Start: May 22, 2025 Dr. Najma Cates MD Admit Provider Active St art: May 22, 2025 Dr. Najma Cates MD Other Provider Active St art: May 22, 2025 Dr. Isaiah Lerner MD Attending Provider Active Start: May 22, 2025 Dr. Isaiah Lerner MD Other Provider Active Start: May 22, 2025 Dr. Joseph Lindsey MD Other Provider Active Start: May 22, 2025 Dr. Brian Negrete MD Other Provider Active Star t: May 22, 2025 Team Status: Active Member Role/Relationship Status [...] Inactive Member Role/Relationship Status Dates Lela Interiano TEST BAKER, TEST BAKER-C Primary Care Provider Active Start: February 27, 2025 End: February 27, 2025 Lela Interiano NP, TEST BAKER-C Attending Provider Active S tart: February 27, 2025 End: February 27, 2025 Lela Interiano TEST BAKER, TEST BAKER-C Referring Provider Active S tart: February 27, 2025 End: February 27, 2025 Team Status: Inactive Member Role/Relationship Status Dates Dr. Carlos Bernal MD Attending Provider Active S tart: April 12, 2025 End: April 12, 2025 Lela Jaydon TEST BAKER, TEST BAKER-C Primary Care Provider Active Start: April 12, 2025 End: April 12, 2025 Lela Interiano TEST BAKER, TEST BAKER-C Referring Provider Active S tart: April 12, 2025 End: April 12, 2025 Team Status: Inactive Member Role/Relationship Status Dates Lela Interiano TEST BAKER, TEST BAKER-C Primary Care Provider Active Start: April 17, 2025 End: April 17, 2025 Dr. Carlos Bernal MD Attending Provider Active S tart: April 17, 2025 End: April 17, 2025 Dr. Carlos Bernal MD Referring Provider Active S tart: April 17, 2025 End: April 17, 2025 Team Status: Inactive Member Role/Relationship Status Dates Lela Interiano TEST BAKER, TEST BAKER-C Primary Care Provider Active Start: April 24, 2025 End: April 24, 2025 Lela Interiano TEST BAKER, TEST BAKER-C Referring Provider Active S tart: April 24, [...] S tart: May 02, 2025 Team Status: Inactive Member Role/Relationship Status Dates Lela Interiano NP, TEST BAKER-C Primary Care Provider Active Start: May 10, 2025 End: May 10, 2025 Dr. Carlos Bernal MD Attending Provider Active S tart: May 10, 2025 End: May 10, 2025 Dr. Carlos Bernal MD Referring Provider Active S tart: May 10, 2025 End: May 10, 2025 Dr. Brian Gonzales MD Other Provider Active Sta rt: May 10, 2025 End: May 10, 2025 Team Status: Inactive Member Role/Relationship Status Dates Dr. Paola Corona MD Referring Provider Active Start: May 16, 2025 End: May 16, 2025 Laney Ferreira TEST BAKER, TEST BAKER-C Attending Provider Active Start: May 16, 2025 End: May 16, 2025 Lela Interiano TEST BAKER, TEST BAKER-C Primary Care Provider Active Start: May 16, 2025 End: May 16, 2025 Team Status: Active Member Role/Relationship Status Dates Lela Interiano TEST BAKER, TEST BAKER-C Primary Care Provider Active Start: May 18, 2025 Dr. Jeffery Mcclain , DO Emergency Provider Activ e Start: May 18, 2025 Dr. Najma Cates MD Admit Provider Active St art: May 18, 2025 Dr. Najma Cates MD Attending Provider Active Start: May 18, 2025 Dr. Najma Cates MD Other Provider Active St art: May 18, 2025 Dr. Isaiah Lerner MD Other Provider Active Start: May 18, 2025 Team Status: Active Member Role/Relationship Status Dates Lela Interiano TEST BAKER, TEST BAKER-C Primary Care Provider Active Start: May 19, 2025 Dr. Jeffery Mcclain DO Emergency Provider Activ e Start: May 19, 2025 Dr. Najma Cates MD Admit Provider Active St art: May 19, 2025 Dr. Najma Cates MD Other Provider Active St art: May 19, 2025 Dr. Isaiah Lerner MD Other Provider Active Start: May 19, 2025 Dr. Brian Negrete MD Attending Provider Active Start: May 19, 2025 Dr. Brian Ngerete MD Other Provider Active Star t: May 19, 2025 Team Status: Active Member Role/Relationship Status Dates Lela Interiano TEST BAKER, TEST BAKER-C Primary Care Provider Active Start: May 19, 2025 Dr. Jeffery Mcclain DO Emergency Provider Activ e Start: May 19, 2025 Dr. Najma Cates MD Admit Provider Active St art: May 19, 2025 Dr. Najma Cates MD Other Provider Active St art: May 19, 2025 Dr. Isaiah Lerner MD Attending Provider Active Start: May 19, 2025 Dr. Isaiah Lerner MD Other Provider Active Start: May 19, 2025 Dr. Brian Negrete MD Other Provider Active Star t: May 19, 2025 Team Status: Inactive Member Role/Relationship Status Dates Lela Interiano TEST BAKER, TEST BAKER-C Primary Care Provider Active Start: May 19, 2025 End: May 22, 2025 Dr. Jeffery Mcclain , DO Emergency Provider Activ e Start: May 19, 2025 End: May 22, 2025 Dr. Najma Cates MD Admit Provider Active St art: May 19, 2025 End: May 22, 2025 Dr. Najma Cates MD Other Provider Active St art: May 19, 2025 End: May 22, 2025 Dr. Isaiah Lerner MD Other Provider Active Start: May 19, 2025 End: May 22, 2025 Dr. Joseph Lindsey MD Attending Provider Active Start: May 19, 2025 End: May 22, 2025 Dr. Brian Negrete MD Other Provider Active Star t: May 19, 2025 End: May 22, 2025 Team Status: Active Member Role/Relationship Status Dates Lela Interiano TEST BAKER, TEST BAKER-C Primary Care Provider Active Start: May 20, 2025 Dr. Jeffery Mcclain DO Emergency Provider Activ e Start: May 20, 2025 Dr. Najma Cates MD Admit Provider Active St art: May 20, 2025 Dr. Najma Cates MD Other Provider Active St art: May 20, 2025 Dr. Isaiah Lerner MD Other Provider Active Start: May 20, 2025 Dr. Brian Negrete MD Attending Provider Active Start: May 20, 2025 Dr. Brian Negrete MD Other Provider Active Star t: May 20, 2025 Team Status: Active Member Role/Relationship Status Dates Lela Interiano NP, TEST BAKER-C Primary Care Provider Active Start: May 20, 2025 Dr. Jeffery Mcclain DO Emergency Provider Activ e Start: May 20, 2025 Dr. Najma Cates MD Admit Provider Active St art: May 20, 2025 Dr. Najma Cates MD Other Provider Active St art: May 20, 2025 Dr. Isaiah Lerner MD Other Provider Active Start: May 20, 2025 Dr. Brian Negrete MD Other Provider Active Star t: May 20, 2025 Dr. Geovanna Nino MD Attending Provider Active Start: May 20, 2025 Team Status: Active Member Role/Relationship Status Dates Lela Interiano NP, TEST BAKER-C Primary Care Provider Active Start: May 21, 2025 Dr. Jeffery Mcclain DO Emergency Provider Activ e Start: May 21, 2025 Dr. Najma Cates MD Admit Provider Active St art: May 21, 2025 Dr. Najma Cates MD Other Provider Active St art: May 21, 2025 Dr. Isaiah Lerner MD Other Provider Active Start: May 21, 2025 Dr. Brian Negrete MD Attending Provider Active Start: May 21, 2025 Dr. Brian Negrete MD Other Provider Active Star t: May 21, 2025 Team Status: Active Member Role/Relationship Status Dates Lela Interiano TEST BAKER, TEST BAKER-C Primary Care Provider Active Start: May 21, 2025 Dr. Jeffery Mcclain DO Emergency Provider Activ e Start: May 21, 2025 Dr. Najma Cates MD Admit Provider Active St art: May 21, 2025 Dr. Najma Cates MD Other Provider Active St art: May 21, 2025 Dr. Isaiah Lerner MD Other Provider Active Start: May 21, 2025 Dr. Brian Negrete MD Other Provider Active Star t: May 21, 2025 Dr. Geovanna Nino MD Attending Provider Active Start: May 21, 2025 Team Status: Active Member Role/Relationship Status Dates Lela Interiano NP, TEST BAKER-C Primary Care Provider Active Start: May 22, 2025 Dr. Jeffery Mcclain DO Emergency Provider Activ e Start: May 22, 2025 Dr. Najma Cates MD Admit Provider Active St art: May 22, 2025 Dr. Najma Cates MD Other Provider Active St art: May 22, 2025 Dr. Isaiah Lerner MD Attending Provider Active Start: May 22, 2025 Dr. Isaiah Lerner MD Other Provider Active Start: May 22, 2025 Dr. Joseph Lindsey MD Other Provider Active Start: May 22, 2025 Dr. Brian Negrete MD Other Provider Active Star t: May 22, 2025 Team Status: Active Member Role/Relationship Status Dates Lela Interiano TEST BAKER, TEST BAKER-C Primary Care Provider Active Start: May 23, 2025 Dr. Jeffery Mcclain DO Emergency Provider Activ e Start: May 23, 2025 Dr. Najma Cates MD Admit Provider Active St art: May 23, 2025 Dr. Najma Cates MD Other Provider Active St art: May 23, 2025 Dr. Isaiah Lerner MD Other Provider Active Start: May 23, 2025 Dr. Joseph Lindsey MD Attending Provider Active Start: May 23, 2025 Dr. Joseph Lindsey MD Other Provider Active Start: May 23, 2025 Dr. Brian Negrete MD Other Provider Active Star t: May 23, 2025 Team Status: Inactive Member Role/Relationship Status Dates Lela Interiano TEST BAKER, TEST BAKER-C Primary Care Provider Active Start: May 29, 2025 End: May 29, 2025 Lela Interiano TEST BAKER, TEST BAKER-C Attending Provider Active S tart: May 29, 2025 End: May 29, 2025 Team Status: Inactive Member Role/Relationship Status Dates Lela Interiano TEST BAKER, TEST BAKER-C Primary Care Provider Active Start: June 05, 2025 End: June 05, 2025 Lela Interiano TEST BAKER, TEST BAKER-C Referring Provider Active S tart: June 05, 2025 End: June 05, 2025 Dr. Carlos Bernal MD Attending Provider Active S tart: June 05, 2025 End: June 05, 2025 Team Status: Inactive Member Role/Relationship Status Dates Lela Interiano TEST BAKER, TEST BAKER-C Primary Care Provider Active Start: February 27, 2025 End: February 27, 2025 Lela Interiano TEST BAKER, TEST BAKER-C Attending Provider Active S tart: February 27, 2025 End: February 27, 2025 Lela Interiano TEST BAKER, TEST BAKER-C Referring Provider Active S tart: February 27, 2025 End: February 27, 2025 Team Status: Inactive Member Role/Relationship Status Dates Dr. Carlos Bernal MD Attending Provider Active S tart: April 12, 2025 End: April 12, 2025 Lela Interiano TEST BAKER, TEST BAKER-C Primary Care Provider Active Start: April 12, 2025 End: April 12, 2025 Lela Interiano TEST BAKER, TEST BAKER-C Referring Provider Active S tart: April 12, 2025 End: April 12, 2025 Team Status: Inactive Member Role/Relationship Status Dates Lela Interiano TEST BAKER, TEST BAKER-C Primary Care Provider Active Start: April 17, 2025 End: April 17, 2025 Dr. Carlos Bernal MD Attending Provider Active S tart: April 17, 2025 End: April 17, 2025 Dr. Carlos Bernal MD Referring Provider Active S tart: April 17, 2025 End: April 17, 2025 Team Status: Inactive Member Role/Relationship Status Dates Lela Interiano TEST BAKER, TEST BAKER-C Primary Care Provider Active Start: April 24, 2025 End: April 24, 2025 Lela Interiano TEST BAKER, TEST BAKER-C Referring Provider Active S tart: April 24, 2025 End: April 24, 2025 Dr. Carlos Bernal MD Attending Provider Active S tart: April 24, 2025 End: April 24, 2025 Team Status: Active Member Role/Relationship Status Dates Dr. Poala Corona MD Primary Care Provider Active Start: May 02, 2025 Dr. Paola Corona MD Family Provider Active St art: May 02, 2025 Dr. Paola Corona MD Referring Provider Active Start: May 02, 2025 Dr. Carlos Bernal MD Attending Provider Active S tart: May 02, 2025 Team Status: Inactive Member Role/Relationship Status Dates Lela Interiano TEST BAKER, TEST BAKER-C Primary Care Provider Active Start: May 10, 2025 End: May 10, 2025 Dr. Carlos Bernal MD Attending Provider Active S tart: May 10, 2025 End: May 10, 2025 Dr. Carlos Bernal MD Referring Provider Active S tart: May 10, 2025 End: May 10, 2025 Dr. Brian Gonzales MD Other Provider Active Sta rt: May 10, 2025 End: May 10, 2025 Team Status: Inactive Member Role/Relationship Status Dates Dr. Paola Corona MD Referring Provider Active Start: May 16, 2025 End: May 16, 2025 Laney Ferreira TEST BAKER, TEST BAKER-C Attending Provider Active Start: May 16, 2025 End: May 16, 2025 Lela Interiano TEST BAKER, TEST BAKER-C Primary Care Provider Active Start: May 16, 2025 End: May 16, 2025 Team Status: Active Member Role/Relationship Status Dates Lela Interiano TEST BAKER, TEST BAKER-C Primary Care Provider Active Start: May 18, 2025 Dr. Jeffery Mcclain DO Emergency Provider Activ e Start: May 18, 2025 Dr. Najma Cates MD Admit Provider Active St art: May 18, 2025 Dr. Najma Cates MD Attending Provider Active Start: May 18, 2025 Dr. Najma Cates MD Other Provider Active St art: May 18, 2025 Dr. Isaiah Lerner MD Other Provider Active Start: May 18, 2025 Team Status: Active Member Role/Relationship Status Dates Lela Interiano NP, TEST BAKER-C Primary Care Provider Active Start: May 19, 2025 Dr. Jeffery Mcclain DO Emergency Provider Activ e Start: May 19, 2025 Dr. Najma Cates MD Admit Provider Active St art: May 19, 2025 Dr. Najma Cates MD Other Provider Active St art: May 19, 2025 Dr. Isaiah Lerner MD Other Provider Active Start: May 19, 2025 Dr. Brian Negrete MD Attending Provider Active Start: May 19, 2025 Dr. Brian Negrete MD Other Provider Active Star t: May 19, 2025 Team Status: Active Member Role/Relationship Status Dates Lela Interiano NP, TEST BAKER-C Primary Care Provider Active Start: May 19, 2025 Dr. Jeffery Mcclain DO Emergency Provider Activ e Start: May 19, 2025 Dr. Najma Cates MD Admit Provider Active St art: May 19, 2025 Dr. Najma Cates MD Other Provider Active St art: May 19, 2025 Dr. Isaiah Lerner MD Attending Provider Active Start: May 19, 2025 Dr. Isaiah Lerner MD Other Provider Active Start: May 19, 2025 Dr. Brian Negrete MD Other Provider Active Star t: May 19, 2025 Dr. Joseph Lindsey MD Referring Provider Active Start: May 19, 2025 Team Status: Inactive Member Role/Relationship Status Dates Lela Interiano NP, TEST BAKER-C Primary Care Provider Active Start: May 19, 2025 End: May 22, 2025 Dr. Jeffery Mcclain DO Emergency Provider Activ e Start: May 19, 2025 End: May 22, 2025 Dr. Najma Cates MD Admit Provider Active St art: May 19, 2025 End: May 22, 2025 Dr. Najma Cates MD Other Provider Active St art: May 19, 2025 End: May 22, 2025 Dr. Isaiah Lerner MD Other Provider Active Start: May 19, 2025 End: May 22, 2025 Dr. Joseph Lindsey MD Attending Provider Active Start: May 19, 2025 End: May 22, 2025 Dr. Brian Negrete MD Other Provider Active Star t: May 19, 2025 End: May 22, 2025 Team Status: Active Member Role/Relationship Status Dates Lela Interiano TEST BAKER, TEST BAKER-C Primary Care Provider Active Start: May 20, 2025 Dr. Jeffery Mcclain DO Emergency Provider Activ e Start: May 20, 2025 Dr. Najma Cates MD Admit Provider Active St art: May 20, 2025 Dr. Najma Cates MD Other Provider Active St art: May 20, 2025 Dr. Isaiah Lerner MD Other Provider Active Start: May 20, 2025 Dr. Brian Negrete MD Attending Provider Active Start: May 20, 2025 Dr. Brian Negrete MD Other Provider Active Star t: May 20, 2025 Team Status: Active Member Role/Relationship Status Dates Lela Interiano NP, TEST BAKER-C Primary Care Provider Active Start: May 20, 2025 Dr. Jeffery Mcclain DO Emergency Provider Activ e Start: May 20, 2025 Dr. Najma Cates MD Admit Provider Active St art: May 20, 2025 Dr. Najma Cates MD Other Provider Active St art: May 20, 2025 Dr. Isaiah Lerner MD Other Provider Active Start: May 20, 2025 Dr. Brian Negrete MD Other Provider Active Star t: May 20, 2025 Dr. Geovanna Nino MD Attending Provider Active Start: May 20, 2025 Team Status: Active Member Role/Relationship Status Dates Lela Interiano TEST BAKER, TEST BAKER-C Primary Care Provider Active Start: May 21, 2025 Dr. Jeffery Mcclain DO Emergency Provider Activ e Start: May 21, 2025 Dr. Najma Cates MD Admit Provider Active St art: May 21, 2025 Dr. Najma Cates MD Other Provider Active St art: May 21, 2025 Dr. Isaiah Lerner MD Other Provider Active Start: May 21, 2025 Dr. Brian Negrete MD Attending Provider Active Start: May 21, 2025 Dr. Brian Negrete MD Other Provider Active Star t: May 21, 2025 Team Status: Active Member Role/Relationship Status Dates Lela Interiano TEST BAKER, TEST BAKER-C Primary Care Provider Active Start: May 21, 2025 Dr. Jeffery Mcclain DO Emergency Provider Activ e Start: May 21, 2025 Dr. Najma Cates MD Admit Provider Active St art: May 21, 2025 Dr. Najma Cates MD Other Provider Active St art: May 21, 2025 Dr. Isaiah Lerner MD Other Provider Active Start: May 21, 2025 Dr. Brian Negrete MD Other Provider Active Star t: May 21, 2025 Dr. Geovanna Nino MD Attending Provider Active Start: May 21, 2025 Team Status: Active Member Role/Relationship Status Dates Lela Interiano NP, TEST BAKER-C Primary Care Provider Active Start: May 22, 2025 Dr. Jeffery Mcclain DO Emergency Provider Activ e Start: May 22, 2025 Dr. Najma Cates MD Admit Provider Active St art: May 22, 2025 Dr. Najma Cates MD Other Provider Active St art: May 22, 2025 Dr. Isaiah Lerner MD Attending Provider Active Start: May 22, 2025 Dr. Isaiah Lerner MD Other Provider Active Start: May 22, 2025 Dr. Joseph Lindsey MD Other Provider Active Start: May 22, 2025 Dr. Brian Negrete MD Other Provider Active Star t: May 22, 2025 Team Status: Active Member Role/Relationship Status Dates Lela Interiano NP, TEST BAKER-C Primary Care Provider Active Start: May 23, 2025 Dr. Jeffery Mcclain DO Emergency Provider Activ e Start: May 23, 2025 Dr. Najma Cates MD Admit Provider Active St art: May 23, 2025 Dr. Najma Cates MD Other Provider Active St art: May 23, 2025 Dr. Isaiah Lerner MD Other Provider Active Start: May 23, 2025 Dr. Joseph Lindsey MD Attending Provider Active Start: May 23, 2025 Dr. Joseph Lindsey MD Other Provider Active Start: May 23, 2025 Dr. Brian Negrete MD Other Provider Active Star t: May 23, 2025 Team Status: Inactive Member Role/Relationship Status Dates Lelalita Interiano TEST BAKER, TEST BAKER-C Primary Care Provider Active Start: May 29, 2025 End: May 29, 2025 Lelalita Interiano TEST BAKER, TEST BAKER-C Attending Provider Active S tart: May 29, 2025 End: May 29, 2025 Team Status: Inactive Member Role/Relationship Status Dates Lelalita Interiano TEST BAKER, TEST BAKER-C Primary Care Provider Active Start: June 05, 2025 End: June 05, 2025 Lelalita Interiano TEST BAKER, TEST BAKER-C Referring Provider Active S tart: June 05, 2025 End: June 05, 2025 Dr. Carlos Bernal MD Attending Provider Active S tart: June 05, 2025 End: June 05, 2025 Team Status: Inactive Member Role/Relationship Status Dates Lelalita Interiano TEST BAKER, TEST BAKER-C Primary Care Provider Active Start: June 08, 2025 End: June 08, 2025 Lela Interiano TEST BAKER, TEST BAKER-C Referring Provider Active S tart: June 08, 2025 End: June 08, 2025 Lizzy Pelaez TEST BAKER, TEST BAKER-C Attending Provider Active Start: June 08, 2025 End: June 08, 2025 FOR RECORDS PERTAINING TO PATIENTS WHO [...] BE BASED ON THE PRIMARY CLINICAL RECORDS. [facility] [employer] provides no warranty or guarantee of the accuracy or completeness of information in this document.
== END | disposition home or self-care (01) ==
LOC: OPBI 07:07
PROVIDERS: PCP Nurse Practitioner Family; Referring Provider Nurse Practitioner Family; Visit Provider Nurse Practitioner Family
DX: Z12.31 Encounter for screening mammogram for malignant neoplasm of breast (principal)
CPT/HCPCS: 77063; 77067

== ENCOUNTER 2025-06-22 08:18 | Day surgery (SDC) | payer MEDICARE, BC, SELFPAY ==
--- NOTE | 2025-06-16 16:35 | PAT.ANE_ITS ---
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 When Was Last Pacemaker Check QUESTION #4 FULL TEXT: You/Your Family Experience fever (hyperthermia) with Anesthesia Last Oral Intake Last Oral intake: Last Oral Intake NPO since Meds taken in AM with sips of water? 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 Has anyone observed you stop No 06/16/25 09:01 breathing during sleep? STOP Results Negative 06/16/25 09:01 QUESTION #5 FULL TEXT : Do you snore loudly (louder than talking or can be heard through closed doors)? 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 Specify any problems Hx of Preganancy in last 3 No 06/16/25 09:01 Months Nurse Filling Out Transfusion DSCHRIBER 06/16/25 09:01 & Questions: Date: 06/16/25 06/16/25 09:01 Time: 09:04 06/16/25 09:01 Patient unable to answer at this time (ie. 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: /Reproductive Hx- high school foreign language tutor Hx Now No 06/16/25 09:01 Gestational Age (in weeks): EDC: Hx Hx Para Hx Section SAB No 06/16/25 09:01 [facility] Medical History (Updated 06/16/25 @ 09:14 by Danica Carroll) Thyroid disease Wears glasses Wears dentures Anxiety History of hiatal hernia Non-smoker Shortness of breath on exertion History of edema History of Holter monitoring Cardiology follow-up encounter History of echocardiogram History of stress test HTN (hypertension) Cancer Diverticulosis Pulmonary nodule Home Medications ?Medication ?Instructions ?Recorded ?Last Taken ?Type Calcium Carbonate/Vitamin D 1 tab PO DAILY 08/01/13 History Multivitamins,Therapeutic 1 tab PO DAILY 08/01/1308/12 History lactobacillus combination no.9 4 4,000 mmu cells PO DA NURIS 03/23/23 Unknown History billion cell capsule (Adult 50 Plus Probiotic) metoprolol succinate 50 mg 50 mg PO QDAY #90 tabs 12/06 Unknown Rx tablet,extended release 24 hr (Toprol XL) lidocaine-prilocaine 2.5 %-2.5 % 1 applic topical ONCE PRN port 06/13/25 Unknown Rx topical cream access 30 days #30 grams ondansetron 8 mg disintegrating 8 mg PO Q8H PRN nausea and 06/13/25 Unknown Rx tablet vomiting #30 tabs prochlorperazine maleate 10 mg 10 mg PO Q6H PRN nausea and 06/13/25 Unknown Rx tablet vomiting #30 tabs levothyroxine 50 mcg tablet 50 mcg PO DAILY 06/16/25 U nknown History Allergy/AdvReac Type Severity Reaction Status Date / Time doxycycline AdvReac Severe Nausea Verified 06/16/25 08:58 erythromycin base AdvReac Severe Nausea Verified 06/16/25 08:58 (Erythromycin Base) clindamycin AdvReac Intermediate Thrush Verified 06/16/25 08:58 Penicillins AdvReac Intermediate Hives Verified 06/16/25 08:58 Family History Mother Colon cancer Breast cancer Daughter Thyroid disorder Father No problems noted. Surgical History (Updated 06/16/25 @ 09:14 by Danica Carroll) Hx of oral surgery Hx of colonoscopy History of lung biopsy History of tubal ligation History of hysterectomy Social History household members: none Smoking Status: Never smoker alcohol intake: never substance use type: does not use Audit: Pertinent Findings Pertinent Findings EKG Perinent findings: May 18, 2025. Wide QRS tachycardia at 122 bpm.. Left bundle branch block. Stress test pertinent findings: February 07, 2025. EF of 59%. No obvious reversibility is noted to suggest ischemia. Echo (EF%) pertinent findings: 02/03/2025. EF is 60%. PASP is 34 mmHg. Consult pertinent findings: May 16, 2025. Jhon HUNT. 1. Tachycardia-last stress test was negative for ischemia 02/07/2025. Last echo with EF of 60%. Stable on exam. No recent symptoms or events. Continue metoprolol. 2. Uncontrolled hypertension-blood pressure elevated in the office today. Continue metoprolol. Monitor at home and report back to us if elevated. Additional pertinent findings: 7-day event monitor. 10/24/2024. Predominant rhythm is normal sinus rhythm. 2 episodes of atrial tachycardia with the longest being 32 beats. 1 episode of ventricular tachycardia lasting 5 beats. PAC burden was 0.4%. PVC burden is 1.7%. Recommendation Anesthesia Recommendation Anesthesia recommendation: OPTIMIZED for anesthesia
[2025-06-22] VITALS (8 sets, daily range): BP systolic 121–160; BP diastolic 71–79; PULSE 74–103; RESP 16–18; TEMP 36.1–36.4; O2SAT 97–100; BMI 20.2
[2025-06-22] MEDS: Lactated Ringers 1,000 ML 15 ML IV (09:11)
--- NOTE | 2025-06-22 09:23 | PCM.PRE.AN2 ---
ASA Classification* ASA Classification ASA Classification: 3 Assessment & Plan Anesthesia* Anesthesia Assessment Anesthesia Assessment: Discussed sedation and/or anesthesia options, risks, benefits, and alternatives with patient/parents/legal guardian/POA. Questions invited. The patient/parents/legal guardian/POA seems to understand and agrees to proceed with anesthesia plan. Reviewed the physical assessment, medical history, allergy history and patient home medications list prior to surgery/procedure/anesthetic and documented any changes. Performed airway and anesthesia risk assessments. Anesthesia Type Anesthesia Type: MAC History Source History Obtained from:: Patient and Chart Anesthesia Focused Assessment* Temperature: 97.5 F Pulse Rate: 74 Blood Pressure: 160/79 Respiratory Rate: 18 Pulse Ox: 100 Oxygen Delivery Method: Room Air Airway Assessment Mouth opens: >3 cm Mallampati Score: III Teeth Condition: Dentures (Take out after patient has full upper and lower dentures.) Neck Range of motion (ROM): Full ROM Labs Anesthesia Preop lab: CBC WBC 5.8 K/mm3 (4.4-11.0) 05/22/25 03:30 05/22/25 RBC 3.70 M/mm3 (4.2-5.4) L 05/22/25 03:30 05/22/25 Hgb 10.4 g/dL (12.0-15.0) L 05/22/25 03:30 05/22/25 Hct 32.2 % (37-47) L 05/22/25 03:30 05/22/25 Plt Count 323 K/mm3 (150-450) 05/22/25 03:30 05/22/25 CHEMISTRY Potassium 4.4 mmol/L (3.3-5.1) 05/29/25 14:17 05/29/25 Sodium 135 mmol/L (133-145) 05/29/25 14:17 05/29/25 Magnesium 1.9 mg/dL (1.5-2.2) 05/21/25 05:40 05/21/25 Phosphorus 3.0 mg/dL (2.7-4.5) 05/20/25 06:02 05/20/25 BUN 9 mg/dL (4-19) 05/29/25 14:17 05/29/25 Creatinine 0.66 mg/dL (0.70-1.20) L 05/29/25 14:17 05/29/25 Glucose 98 mg/dL (70-99) 05/29/25 14:17 05/29/25 TSH 4.410 uIU/mL (0.300-4.200) H 05/29/25 14:17 05/29/25 COAG PT 13.0 SECONDS (11.7-14.9) 05/10/25 07:39 05/10/25 Pre-Assessment Diagnosis/Proposed Procedure Planned Operative Procedure(s): INSERTION VASCULAR PORT RIGHT POSS LEFT Anesthesia History Anesthesia History - condemnation engineer: Anesthesia History - condemnation engineer Hx Hospitalization Yes: BOWEL BLOCKAGE 05/29/25 06/16/25 09:01 Any Problems With Anesthesia No 06/16/25 09:01 Cholinesterase deficiency No 06/16/25 09:01 You/Your Family Experience No 06/16/25 09:01 fever (hyperthermia) with Relationship Recent Exposure to Contagious No 06/22/25 08:47 Disease Does patient have nerve No 06/16/25 09:01 stimulator Patient instructed to have device shut off --Does patient have Pacemaker No 06/22/25 08:47 or ICD? When Was Last Pacemaker Check QUESTION #4 FULL TEXT: You/Your Family Experience fever (hyperthermia) with Anesthesia Last Oral Intake Last Oral intake: Last Oral Intake NPO since 20:00 06/22/25 08:47 Meds taken in AM with sips of Yes 06/22/25 08:47 water? Meds patient instructed to metoprolol, levothyroxine 06/22/25 08:47 take am of surgery Any additional information?: Yes Meds taken in AM with sips of water?: Yes PONV PONV - condemnation engineer: PONV - condemnation engineer Female Yes 06/16/25 09:01 HX of Motion Sickness No 06/16/25 09:01 HX of N/V After Surgery No 06/16/25 09:01 Non-Smoker Yes 06/16/25 09:01 Duration of Surgery greater No 06/16/25 09:01 than 60 minutes Number of Risk Factors 2 06/16/25 09:01 PONV Score Moderate Risk 06/16/25 09:01 Height & Weight Height & Weight: Anesthesia: Height & Weight Height 5 ft 5 in 06/22/25 08:47 Weight: 55.2 kg 06/22/25 08:47 Body Mass Index (BMI) 20.2 06/22/25 08:47 Respiratory Assessment Respiratory Assessment - condemnation engineer: Respiratory Tract Infection Hx - condemnation engineer Hx Respiratory Tract Infection No 06/16/25 09:01 STOP Sleep Apnea STOP Sleep Apnea - condemnation engineer: STOP Sleep Apnea - condemnation engineer Hx Hypertension Yes: CONTROLLED WITH MED 06/16/25 09:01 Hx Sleep Apnea No 06/16/25 09:01 CPAP BIPAP Do you snore loudly (louder No 06/16/25 09:01 than talking or can be heard Do you often feel tired/ No 06/16/25 09:01 fatigued/ sleepy during daytime? Has anyone observed you stop No 06/16/25 09:01 breathing during sleep? STOP Results Negative 06/16/25 09:01 QUESTION #5 FULL TEXT : Do you snore loudly (louder than talking or can be heard through closed doors)? 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 Specify any problems Hx of Preganancy in last 3 No 06/16/25 09:01 Months Nurse Filling Out Transfusion DSCHRIBER 06/16/25 09:01 & Questions: Date: 06/16/25 06/16/25 09:01 Time: 09:04 06/16/25 09:01 Patient unable to answer at this time (ie. confused, unrespo /Reproduction History /Reproductive History - condemnation engineer: /Reproductive Hx- condemnation engineer Hx Now No 06/16/25 09:01 Gestational Age (in weeks): EDC: Hx Hx Para Hx Section SAB No 06/16/25 09:01 Active Medications Active Medications: Current Medications Generic Name Dose Route Start Last Admin Trade Name Randy PRN Reason Stop Dose Admin Cefazolin Sodium 2 gm/ Sodium 110 mls @ 200 mls/hr 06/22/25 10:00 Chloride IV 06/22/25 10:32 INTRAOP ONE Lactated Ringer's 1,000 mls @ 15 mls/hr 06/22/25 08:30 06/22/25 09:11 IV 15 mls/hr .Q48H YARI Administration PFSH Medical History Thyroid disease Wears glasses Wears dentures Anxiety History of hiatal hernia Non-smoker Shortness of breath on exertion History of edema History of Holter monitoring Cardiology follow-up encounter History of echocardiogram History of stress test HTN (hypertension) Cancer Diverticulosis Pulmonary nodule Home Medications ?Medication ?Instructions ?Recorded ?Last Taken ?Type Calcium Carbonate/Vitamin D 1 tab PO DAILY 08/01/13 08/25/17 History Multivitamins,Therapeutic 1 tab PO DAILY 08/01/13 06/21/25 History lactobacillus combination no.9 4 4,000 mmu cells PO DAILY 03/23/23 06/21/25 History billion cell capsule (Adult 50 Plus Probiotic) metoprolol succinate 50 mg 50 mg PO QDAY #90 tabs 01/11/25 06/22/25 Rx tablet,extended release 24 hr (Toprol XL) lidocaine-prilocaine 2.5 %-2.5 % 1 applic topical ONCE PRN port 06/13/25 Unknown Rx topical cream access 30 days #30 grams ondansetron 8 mg disintegrating 8 mg PO Q8H PRN nausea and 06/13/25 Unknown Rx tablet vomiting #30 tabs prochlorperazine maleate 10 mg 10 mg PO Q6H PRN nausea and 06/13/25 Unknown Rx tablet vomiting #30 tabs levothyroxine 50 mcg tablet 50 mcg PO DAILY 06/16/25 06/22/25 History Allergy/AdvReac Type Severity Reaction Status Date / Time doxycycline AdvReac Severe Nausea Verified 06/22/25 08:42 erythromycin base AdvReac Severe Nausea Verified 06/22/25 08:42 (Erythromycin Base) clindamycin AdvReac Intermediate Thrush Verified 06/22/25 08:42 Penicillins AdvReac Intermediate Hives Verified 06/22/25 08:42 Family History Mother Colon cancer Breast cancer Daughter Thyroid disorder Father No problems noted. Surgical History Hx of oral surgery Hx of colonoscopy History of lung biopsy History of tubal ligation History of hysterectomy Social History household members: none Smoking Status: Never smoker alcohol intake: never substance use type: does not use Review of Systems (Anesthesia) ROS Narrative System reviewed and no additional complaints, except as documented.
--- NOTE | 2025-06-22 09:33 | PCM.HP.BLA ---
History and Physical Date of Admission: 06/22/25 Intake Vital Signs 06/08/2510:24 06/15/2509:38 Height 5 ft 5 in 5 ft 5 in Weight: 124 lb 4 oz 123 lb BMI 20.7 20.5 BP 160/83 H 144/78 H Blood Pressure Location Rt brachial Rt brachial Position Sitting Sitting Respiration 18 17 Pulse 80 83 Pulse Source Monitor Monitor Temp 98.2 F Pulse Oximetry (%) 100 99 Oxygen Delivery Method room air room air Intake Visit Reasons: PORT PLACEMENT Chief Complaint: port placement Is patient in pain?: No Allergies doxycycline Adverse Reaction (Severe, Verified 06/15/25 09:41) Nauseaerythromycin base (Erythromycin Base) Adverse Reaction (Severe, Verified 06/15/25 09:41) Nauseaclindamycin Adverse Reaction (Intermediate, Verified 06/15/25 09:41) ThrushPenicillins Adverse Reaction (Intermediate, Verified 06/15/25 09:41) Hives Medications ?Medication ?Instructions ?Recorded ?Confirmed ?Type Calcium Carbonate/Vitamin D 1 tab PO DAILY 08/01/13 06/15/25 History Multivitamins,Therapeutic 1 tab PO DAILY 08/01/13 06/15/25 History lactobacillus combination no.9 4 4,000 mmu cells PO DAILY 03/23/23 06/15/25 History billion cell capsule (Adult 50 Plus Probiotic) metoprolol succinate 50 mg 50 mg PO QDAY #90 tabs 01/11/25 06/15/25 Rx tablet,extended release 24 hr (Toprol XL) levothyroxine 75 mcg tablet 50 mcg PO QDAY 04/12/25 06/15/25 History lidocaine-prilocaine 2.5 %-2.5 % 1 applic topical ONCE PRN port 06/13/25 06/15/25 Rx topical cream access 30 days #30 grams ondansetron 8 mg disintegrating 8 mg PO Q8H PRN nausea and 06/13/25 06/15/25 Rx tablet vomiting #30 tabs prochlorperazine maleate 10 mg 10 mg PO Q6H PRN nausea and 06/13/25 06/15/25 Rx tablet vomiting #30 tabs Have you fallen in the past year?: No PFSH Medical History (Updated 06/15/25 @ 09:38 by Niya Taveras) Encounter for education CKD (chronic kidney disease), stage II HTN (hypertension) Diverticulosis Cancer Gastric reflux Pulmonary nodule Surgical History History of tubal ligation History of hysterectomy Family History Mother Colon cancer Breast cancerDaughter Thyroid disorderFather No problems noted. Social History household members: none Smoking Status: Never smoker alcohol intake: never substance use type: does not use HPI HPI HPI: Patient is an 85-year-old female here for port placement for chemotherapy. ROS General General: No weight change, appetite, fatigue, colon cancer, breast cancer or weakness HEENT HEENT: No difficulty swallowing, eye injury, eye surgery, swollen glands or hoarseness Endo Endocrine: Yes thyroid disease; No diabetes mellitus, thyroid cancer, Hair loss, heat intolerance or cold intolerance Skin Skin: No rash or changing moles Musc Musculoskeletal: No back problems, arthritis, rheumatoid arthritis, gout or joint pain Cardio Cardiovascular: Yes high blood pressure; No murmur, pacemaker, heart disease, atrial fibrillation, heart attack, heart stent, palpitations, shortness of breath with exertion or chest pain Psych Psychiatric: No depression, anxiety or hearing voices Resp Respiratory: Yes shortness of breath, No sleep apnea, Yes cough, No COPD, No asthma, No emphysema and No wheezing Gastro Gastrointestinal: No abdominal pain, No nausea or vomiting, No diarrhea, No constipation, No blood in stool, No acid reflux, No hemorrhoids, No ulcers, No gallbladder problem and No black,tarry stools Yoseph Hematologic: No blood thinners, No blood disorders, No bleeding, No anemia and No blood clots Neuro Neurologic: No system reviewed and no additional complaints, except as documented, No as per HPI, No abnormal gait, No abnormal hearing, No abnormal movements, No abnormal speech, No behavioral changes, No burning sensations, No confusion, No convulsions, No disequilibrium, No dizziness, No localized weakness, No frequent falls, No headache(s), No lack of coordination, No loss of vision, No memory loss, No numbness, No other visual disturbances, No radicular pain, No restless legs, No sensory deficit, No syncope, No tingling, No tremor(s), No weakness and No other Exam Const General: cooperative Orientation: alert and oriented x3 HENMT Head: normal to inspection Neck Neck: normal visual inspection and full ROM Chest Chest palpation & inspection: normal inspection of the chest Resp Effort & Inspection: normal respiratory effort Auscultation: clear to auscultation bilaterally Cardio Rate: regular rate Rhythm: regular rhythm GI Inspection: non-distended Palpation: soft and nontender Skin General: no rashes or lesions noted Neuro General: patient alert and patient oriented x3 Extrem General: full ROM Psych Appearance: grossly normal Mental Status: mental status grossly normal Assessment and Plan Assessment and Plan (1) Encounter for insertion of venous access port: Status: Acute Plan: I discussed placement of right chest port with the patient in detail. I discussed the risks of the procedure such as bleeding, infection, pneumothorax, line infection or DVT. Patient understands all the risks and is willing to proceed. Isaiah Lerner MD Pager: [facility] [address] [place] [address], [address] [place] [address] Office: I have examined the patient and the H&P has been reviewed. There are no clinical changes since date of exam.
[2025-06-22] MEDS: Midazolam 2 MG/2 ML Syringe IV (09:57)
[2025-06-22] MEDS: Cefazolin 1 GM/5 ML Vial 2 GM IV (09:57)
[2025-06-22] MEDS: fentaNYL 100 MCG/2 ML Ampul IV (10:21)
[2025-06-22] MEDS: Lidocaine 1% /Epi 1:100 (20ml) 20 ML Vial (10:21)
--- NOTE | 2025-06-22 10:29 | OP.PCM_ITS ---
Operative Report (Standard) Operative Information Date of Procedure: 06/22/25 Pre-Operative Diagnosis: Need for vascular access for chemotherapy Post-Operative Diagnosis: Same Surgery/Procedure Performed: Ultrasound and fluoroscopy guided right chest port placement utilizing right IJ natural sciences department chair: No Type of Anesthesia: Local MAC RN Documented Start/Stop Times: Operation Date: 06/22/25 10:00 Case Time Into Pre-Op 06/22/25 08:29 Out of Pre-Op 06/22/25 09:54 Anesthesia Start 06/22/25 09:55 Into Room 06/22/25 09:55 Procedure Start 06/22/25 10:10 Procedure End 06/22/25 10:25 Anesthesia End 06/22/25 10:29 Out of Room 06/22/25 10:29 Procedure Start Time: 10:10 Procedure Stop Time: 10:25 Select all DRAINS/GRAFTS/IMPLANTS that apply: Implanted device Implanted device details: 8 [employer]o PowerPort Estimated Blood Loss: 5 Specimen collected: No Description of surgery: After obtaining informed consent patient was brought back to the operating room MAC anesthesia was induced and the right chest and neck were prepped in normal sterile fashion. Ultrasound was used to evaluate both IJs and the right IJ was selected. Next, using a needle, the right IJ was accessed and a guidewire was passed on into the superior vena cava under fluoroscopy guidance. A small incision was made over the puncture site and the dilator introducer was placed over the guidewire. Next this was capped and the pocket was made for the port. 1% lidocaine with epinephrine was injected in the proposed port site. An incision was made with scalpel. Electrocautery was used to make a pocket under the skin and subcutaneous tissue. Hemostasis was obtained. Next, the catheter was tunneled up to the neck incision site and placed through the introducer. The peel-away introducer was removed and the position of the catheter was confirmed on fluoroscopy. Next, the catheter was trimmed and attached to the port with the locking device. Interrupted 2-0 Vicryl sutures were used to anchor the port to the chest wall and then the port was placed inside the pocket. The pocket was then flushed with saline and the port irrigated with saline. There was good blood return and the port flushed easily. Next, heparin was injected into the port. The skin was closed with subcutaneous interrupted 3-0 Vicryl sutures. A single 3-0 Vicryl sutures placed under the skin at the neck incision site. Steri-Strips were placed as well as op sites. Patient tolerated procedure well, was taken to PACU in stable condition. Chest x-ray will be obtained. Surgical Findings: None Complications Complications: No Admit VTE Documentation VTE Mechan Device Prophylaxis: SCD's
--- NOTE | 2025-06-22 10:32 | RAD_ITS ---
PROCEDURE: CXR FOR LINE PLACEMENT 06/22/2025 REASON FOR EXAM: LINE PLACEMENT TECHNIQUE: Procedure Code: [id number] Modality: DX Procedure: CXR FOR LINE PLACEMENT COMPARISON: Prior study dated May 10, 2025. FINDINGS: The tip of the right port a catheter is at the junction of the superior vena cava and right atrium. No evidence of pneumothorax. Increased linear markings in the medial aspect of the left lung base suggestive of left basilar atelectasis. Since prior study, there has been a decrease in the left hilar mass. RAD/CXR for Line Placement IMPRESSION: The tip of the right-sided port a catheter is at the junction of the superior v sascha cava and right atrium. Reading Location: [facility]
--- NOTE | 2025-06-22 10:33 | EX.PCM.DISCH ---
Discharge Instructions Procedure Port-A-Cath Diet Discharge Diet: Light diet - advance as tolerated (Pain medication may cause nausea. You should typically eat light foods as you take your pain medication.) Activity Discharge Activity: Return to Normal Activity and May Shower (with your bandage in place in 1-2 days after surgery. DO NOT SHOWER WHEN YOUR PORT IS ACCESSED.) Additional Activity Instructions:: Alternate ibuprofen and Tylenol for pain control Dressing / Incision Call your doctor if your incision/area has: Continuous Slow Oozing, Sudden Increased Bleeding, Increased Pain/ Swelling, Increased Redness and Foul Smelling Discharge Call your doctor if you observe: Fever of 101 or Higher Remove Dressing in: 2 days Cleanse incision/area with: Soap & Water Follow Up Care Please Follow Up With: Isaiah Lerner MD When: as needed [phone] Test Results: Test results from this visit will be discussed in further detail at your follow-up appointment, if applicable. Discharge Plan Admission Attending Provider: Isaiah Lerner Primary Care Provider: Lela Interiano NP Instructions Print Language: Serbian Discharge Orders/Prescriptions Prescriptions: No Action Adult 50 Plus Probiotic 4 billion cell capsule 4,000 mmu cells PO DAILY Rx Instructions: administer with a meal metoprolol succinate [Toprol XL] 50 mg tablet extended release 24 hr 50 mg PO QDAY Qty: 90 3RF Multivitamins,Therapeutic tablet 1 tab PO DAILY Calcium Carbonate/Vitamin D tablet 1 tab PO DAILY levothyroxine 50 mcg tablet 50 mcg PO DAILY prochlorperazine maleate 10 mg tablet 10 mg PO Q6H PRN (Reason: nausea and vomiting) Qty: 30 2RF ondansetron 8 mg tablet,disintegrating 8 mg PO Q8H PRN (Reason: nausea and vomiting) Qty: 30 2RF lidocaine-prilocaine 2.5-2.5 % cream 1 applic topical ONCE PRN (Reason: port access) 30 Days Qty: 30 2RF Referrals / Follow Up: Lela Interiano NP, [employer] [Primary Care Provider] - Disposition Disposition (needs filled in before D/C Order can be placed): Home, Self Care
--- NOTE | 2025-06-22 10:34 | PCM.POST.ANE ---
Anesthesia: Postop Eval I Current Vital Signs Temperature: 97 F Pulse Rate: 94 Blood Pressure: 123/79 Respiratory Rate: 16 Pulse Ox: 100 Oxygen Delivery Method: Room Air Assessment Airway patent: Yes Spontaneous unlabored respirations: Yes Mental status: Awake and Calm nausea: No Vomiting: No Anesthesia Complication: No Fluid Hydration Crystalloid volume administer (ml): 300 Total IV fluid infused: 300 Progress Note Anesthesia document: Postop Eval 1 completed: Yes
--- NOTE | 2025-06-22 14:38 | POSTOPAN2_ITS ---
Anesthesia Postop Eval I Sum Postop Eval Completion status Anesthesia document: Postop Eval 1 completed: Yes Anesthesia Postop Eval I Summary Anesthesia Postop Eval I Summary: Anesthesia Postop Eval I: Assessment Summary Airway patent Yes 06/22/25 10:34 DINKEY [email or web address] Spontaneous unlabored Yes 06/22/25 10:34 DINKEY [email or web address].GDOTT respirations Mental status Awake,Calm 06/22/25 10:34 DINKEY [email or web address].GDOTT nausea No 06/22/25 10:34 DINKEY BRAKEMAN.GDOTT Vomiting No 06/22/25 10:34 DINKEY BRAKEMAN.GDOTT Anesthesia Postop Eval I: Fluid Summary Crystalloid volume administer 300 06/22/25 10:34 DINKEY [email or web address].GDOTT (ml) Colloids volume administered ( ml) Blood Product volume administered (ml) Total IV fluid infused 300 06/22/25 10:34 DINKEY [email or web address].GDOTT Anesthesia Postop Eval I: Summary Notes Anesthesia Complication No 06/22/25 10:34 DINKEY [email or web address].GDOTT Anesthesia Complication Comment: Post-operative progress note Anesthesia: Postop Eval II Evaluation Mental status: Awake and Calm Pain Level: 0 nausea: No Vomiting: No Complications Anesthesia Complication: No
--- NOTE | 2025-06-22 14:38 | PCM.POSTANE2 ---
Anesthesia Postop Eval I Sum Postop Eval Completion status Anesthesia document: Postop Eval 1 completed: Yes Anesthesia Postop Eval I Summary Anesthesia Postop Eval I Summary: Anesthesia Postop Eval I: Assessment Summary Airway patent Yes 06/22/25 10:34 STATIONARY STEAM [email or web address] Spontaneous unlabored Yes 06/22/25 10:34 STATIONARY STEAM ENGINEER.GDOTT respirations Mental status Awake,Calm 06/22/25 10:34 STATIONARY STEAM ENGINEER.GDOTT nausea No 06/22/25 10:34 STATIONARY STEAM ENGINEER.GDOTT Vomiting No 06/22/25 10:34 STATIONARY STEAM ENGINEER.GDOTT Anesthesia Postop Eval I: Fluid Summary Crystalloid volume administer 300 06/22/25 10:34 STATIONARY STEAM ENGINEER.GDOTT (ml) Colloids volume administered ( ml) Blood Product volume administered (ml) Total IV fluid infused 300 06/22/25 10:34 STATIONARY STEAM ENGINEER.GDOTT Anesthesia Postop Eval I: Summary Notes Anesthesia Complication No 06/22/25 10:34 STATIONARY STEAM ENGINEER.GDOTT Anesthesia Complication Comment: Post-operative progress note Anesthesia: Postop Eval II Evaluation Mental status: Awake and Calm Pain Level: 0 nausea: No Vomiting: No Complications Anesthesia Complication: No
== END 2025-06-22 11:24 | disposition home or self-care (01) ==
LOC: SDC 08:20 → AC 08:22
PROVIDERS: PCP Nurse Practitioner Family; Referring Provider Surgery; Visit Provider Surgery
PROC: (CPT 36561; principal; 2025-06-22 09:45)
DX: Z45.2 Encounter for adjustment and management of vascular access device (principal); K21.9 Gastro-esophageal reflux disease without esophagitis; I12.9 Hypertensive chronic kidney disease with stage 1 through stage 4 chronic kidney disease, or unspecified chronic kidney disease; N18.2 Chronic kidney disease, stage 2 (mild); Z79.899 Other long term (current) drug therapy; Z79.890 Hormone replacement therapy; E07.9 Disorder of thyroid, unspecified
CPT/HCPCS: 36561; 00532; 71045; 77001; C1788; J2405

== ENCOUNTER 2025-07-04 19:32 | Inpatient (IN) | payer MEDICARE, BC, SELFPAY ==
[2025-07-04] VITALS (9 sets, daily range): BP systolic 124–181; BP diastolic 73–99; PULSE 77–88; RESP 15–23; TEMP 36.6–36.8; O2SAT 95–100; BMI 20.1
--- NOTE | 2025-07-04 20:15 | ED.VIS.GI ---
HPI HPI - GI History of Present Illness Chief Complaint: Nausea/Vomiting Narrative Narrative: 85-year-old female, past medical history of remote uterine carcinoma status post hysterectomy, now has reportedly stage IV lung carcinoma. She sees Dr. Bernal. She and her son and daughter relate history that she became ill later this afternoon. She had her second round of chemotherapy/second dose of chemotherapy on Thursday, 2 days ago. She did not become nauseated or vomiting with the first dose of chemotherapy. She denies any fevers or chills. She states she is having upper abdominal pain that was originally sharp and stabbing, but now dull and achy. Additionally, they relate history that a few months ago she was admitted for bowel obstruction. She does have risk factors and that they performed a hysterectomy for her uterine carcinoma in 2012. She states she did not become sick until earlier this afternoon, few hours ago. [facility] Medical History Thyroid disease Wears glasses Wears dentures Anxiety History of hiatal hernia Non-smoker Shortness of breath on exertion History of edema History of Holter monitoring Cardiology follow-up encounter History of echocardiogram History of stress test HTN (hypertension) Cancer Diverticulosis Pulmonary nodule Home Medications ?Medication ?Instructions ?Recorded ?Last Taken ?Type Calcium Carbonate/Vitamin D 1 tab PO DAILY 08/01/13 08/25/17 History Multivitamins,Therapeutic 1 tab PO DAILY 08/01/13 06/21/25 History lactobacillus combination no.9 4 4,000 mmu cells PO DAILY 03/23/23 06/21/25 History billion cell capsule (Adult 50 Plus Probiotic) metoprolol succinate 50 mg 50 mg PO QDAY #90 tabs 01/11/25 06/22/25 Rx tablet,extended release 24 hr (Toprol XL) lidocaine-prilocaine 2.5 %-2.5 % 1 applic topical ONCE PRN port 06/13/25 Unknown Rx topical cream access 30 days #30 grams ondansetron 8 mg disintegrating 8 mg PO Q8H PRN nausea and 06/13/25 Unknown Rx tablet vomiting #30 tabs prochlorperazine maleate 10 mg 10 mg PO Q6H PRN nausea and 06/13/25 Unknown Rx tablet vomiting #30 tabs levothyroxine 50 mcg tablet 50 mcg PO DAILY 06/16/25 06/22/25 History Allergy/AdvReac Type Severity Reaction Status Date / Time doxycycline AdvReac Severe Nausea Verified 07/04/25 19:33 erythromycin base AdvReac Severe Nausea Verified 07/04/25 19:33 (Erythromycin Base) clindamycin AdvReac Intermediate Thrush Verified 07/04/25 19:33 Penicillins AdvReac Intermediate Hives Verified 07/04/25 19:33 Family History Mother Colon cancer Breast cancer Daughter Thyroid disorder Father No problems noted. Surgical History Hx of oral surgery Hx of colonoscopy History of lung biopsy History of tubal ligation History of hysterectomy Social History household members: none Smoking Status: Never smoker alcohol intake: never substance use type: does not use ROS ROS ED ROS Narrative Review of systems positive for nausea and vomiting, no hematemesis, no fevers or chills, positive epigastric abdominal pain. No exacerbating or alleviating factors. Pain improving. EXAM Physical Exam Narrative Exam Narrative: Afebrile. Vital signs noted. Nontoxic-appearing. Cardiovascular examination feels regular rate and rhythm. Lungs are clear to auscultation bilaterally. Abdomen is soft and nontender with the exception of in the epigastric area which shows minimal tenderness to palpation but no guarding or rebound. Positive bowel sounds. Neurological examination nonfocal, nonlateralizing. Positive Mediport right chest wall. Const Vital Signs: 07/04/25 19:34 07/04/25 20:36 07/04/25 21:35 Temperature 97.9 F 97.9 F Temperature Source Oral Oral Pulse Rate 87 78 83 Respiratory Rate 16 17 Blood Pressure 165/99 H 153/74 H 181/87 H Blood Pressure Mean 121 100 118 Pulse Ox 100 96 99 Oxygen Delivery Method Room Air Room Air Room Air MDM MDM MDM Narrative Medical decision making narrative: Differential diagnosis includes but not limited to pancreatitis versus bowel obstruction versus nausea and vomiting from chemotherapy. I have low suspicion for neutropenic fever as she states she is not febrile at home and is not febrile here. I reviewed her laboratory work and she is neutropenic at 3.8 with hemoglobin 10.2, hematocrit 30.9, platelet count normal at 314. Electrolyte panel is significant for carbon dioxide of 19 with a BUN of 16 and creatinine 0.57, glucose elevated at 133, anion gap normal at 14. LFTs are grossly unremarkable. Lipase normal at 56 so I doubt pancreatitis. Urinalysis dipstick negative for leukocytes and nitrites. Microanalysis negative for infection with 0-5 white cells. I do not feel antibiotics are indicated. Of significance, CT of the abdomen and pelvis obtained and radiology report reviewed. She does have small bowel thickening and wall inflammation concerning for bowel obstruction with transition point in the posterior pelvic region with underlying enteritis. I discussed patient with Dr. Geovanna Nino with general surgery who suggested NG tube in treating her bowel obstruction from last time, and admission to medicine. I discussed patient with Dr. Turk for admission and consult to general surgery. On my individual interpretation of the KUB, the nasogastric tube appears to be in the correct place in the stomach. Disposition is admitted in stable condition. History & Record Review Discussion w/independent historian: Patient and Family (Son and daughter) Lab Data Attestation: I reviewed the patient's lab results. Labs: Laboratory Results - last 24 hr 07/04/25 07/04/25 20:40 21:30 WBC 3.8 L RBC 3.58 L Hgb 10.2 L Hct 30.9 L MCV 86.3 MCH 28.5 MCHC 33.0 RDW Std Deviation 42.3 RDW Coeff of Karthikeyan 13.5 Plt Count 314 MPV 11.3 Immature Gran % (Auto) 0.500 Neut % (Auto) 89.1 H Lymph % (Auto) 5.6 L Gaston % (Auto) 4.0 Eos % (Auto) 0.3 Baso % (Auto) 0.5 Absolute Neuts (auto) 3.4 Absolute Lymphs (auto) 0.21 L Nucleated RBC % 0 Sodium 134 Potassium 3.4 Chloride 101 Carbon Dioxide 19.0 L Anion Gap 14 BUN 16 Creatinine 0.57 L Estim Creat Clear Calc 45.36 L Est GFR (MDRD) Non-Af 90 BUN/Creatinine Ratio 27.8 H Glucose 133 H Calcium 8.6 Total Bilirubin 0.40 AST 28 ALT 15 Alkaline Phosphatase 66 Total Protein 6.6 Albumin 3.7 Globulin 3.0 Albumin/Globulin Ratio 1.2 Lipase 56 Urine Color Straw Urine Clarity Clear Urine pH 8.0 Ur Specific Hancock 1.010 Urine Protein Negative Urine Glucose (UA) Normal Urine Ketones Negative Urine Occult Blood Negative Urine Nitrite Negative Urine Bilirubin Negative Urine Urobilinogen Normal Ur Leukocyte Esterase Negative Urine RBC 0-5 SEEN Urine WBC 0-5 SEEN Ur Squamous Epith Cells 0-5 SEEN Urine Bacteria 0 SEEN Urine Mucus 0 SEEN Radiography Diagnostic Testing: Clinical Impression(s) from Imaging Studies Abdomen/Pelvis CT 07/04/25 21:04 IMPRESSION: Diffuse small-bowel thickening and wall inflammation concerning for bowel obstruction with transition point suspected at the distal small bowel at the posterior pelvic region (series 2 image 81) with prominent segmental thickening concerning for underlying enteritis. Reading Location: [id number] Discharge Plan Dx/Rx/DC Orders Clinical Impression: Lung mass, Small bowel obstruction, Enteritis, Neutropenia Disposition Disposition: Acute Care [facility]
--- OUTSIDE RECORDS SUMMARY | 2025-07-04 20:17 | XMS RPT_ITS | CCD ---
Author Organization [facility] Care Team Providers Care Ship Fitter Name Role Phone Carlos Bernal MD Unavailable [...] Provider Dr. Paola Corona MD Referring Provider Egale Eubanks Attending Provider Dr. Paola Corona MD Attending Provider Dr. Paola Corona MD Primary Care Provider Dr. Paola Corona MD Attending Provider Dr. Paola Corona MD Referring Provider Dr. Riley Mckeon MD Attending Provider Dr. Riley Mckeon MD Referring Provider Mike SANTIAGO Dr. Riley Other Provider Jaydon COMMUTATOR PRESSER-C, Lela Primary Care Provider Jaydon COMMUTATOR PRESSER-C, Lela Attending Provider Jaydon COMMUTATOR PRESSER-C, Lela Referring Provider Dolores SANTIAGO, Dr. Gonzalez Attending Provider Chloe SANTIAGO, Dr. Paola Lebron Primary Care Provider Chloe SANTIAGO, Dr. Paola Lebron Referring Provider Dolores SANTIAGO, Dr. Gonzalez Referring Provider Chloe SANTIAGO, Dr. Paola Lebron Primary Care Provider Mike SANTIAGO, Dr. Lin Attending Provider Chloe SANTIAGO, Dr. Paola Lebron Referring Provider Christian SANTIAGO, Dr. Torres Other Provider Unavailabl edward Ferreira COMMUTATOR PRESSER-C, Laney Attending Provider Dr. Jeffery Mcclain DO [...] Lindsey MD, Dr. Joseph Hopkins Attending Provider Dr. Geovanna Nino MD Attending Provider Rosalia SANTIAGO, Dr. Joseph Hopkins Other Provider Chloe SANTIAGO, Dr. Paola Lebron Primary Care Provider Mike SANTIAGO, Dr. Lin Attending Provider Mike SANTIAGO, Dr. Lin Referring Provider Chloe SANTIAGO, Dr. Paola Lebron Primary Care Provider Rosalia SANTIAGO, Dr. Joseph Hopkins Referring Provider Latanya ADAMSC, Lizzy Attending Provider Yann SANTIAGO, Dr. Colon Referring Provider Chloe SANTIAGO, Dr. Paola Lebron Referring Provider Chloe SANTIAGO, Dr. Paola Lebron Primary Care Provider Paola Corona Primary Care Unavailable Mike, Sutter Attending Unavailable Chloe, Paola S Referring Unavailable Jaydon COMMUTATOR PRESSER, Lela Primary Care Unavailable Jhon BENJAMIN, Laney Attending Unavailable Jaydon COMMUTATOR PRESSER, Lela Referring Unavailable Carlos Bernal Attending Unavailable Jaydon COMMUTATOR PRESSER, Lela Primary Care Unavailable Jaydon COMMUTATOR PRESSER, Lela Referring Unavailable Jaydon COMMUTATOR PRESSER, Lela Primary Care Unavailable Carlos Bernal Attending Unavailable Isaiah Lerner Attending Unavailable Isaiah Lerner Referring Unavailable Isaiah Lerner Consulting Unavailable Jaydon COMMUTATOR PRESSER, Lela Primary Care Unavailable Joseph Lindsey Referring Unavailable Yann, Isaiah Attending Unavailable Isaiah Lerner Consulting Unavailable White, Najma L Admitting Unavailable Jaydon COMMUTATOR PRESSER, Lela Primary Care Unavailable White, Najma L Consulting Unavailable Brian Negrete Consulting Unavailable Brian Negrete Attending Unavailable Isaiah Lerner Consulting Unavailable Jaydon COMMUTATOR PRESSER, Lela Primary Care Unavailable White, Najma L Admitting Unavailable White, Najma L Consulting Unavailable Brian Negrete Consulting Unavailable White Najma L Attending Unavailable Jaydon COMMUTATOR PRESSER, Lela Referring Unavailable Jaydon COMMUTATOR PRESSER, Lela Primary Care Unavailable Carlos Bernal Attending Unavailable Isaiah Lerner Attending Unavailable Jaydon COMMUTATOR PRESSER, Lela Referring Unavailable Jaydon COMMUTATOR PRESSER, Lela Primary Care Unavailable Joseph Lindsey Attending Unavailable Joseph Lindsey Consulting Unavailable Jaydon COMMUTATOR PRESSER, Lela Primary Care Unavailable Jaydon COMMUTATOR PRESSER, Lela Attending Unavailable Jaydon COMMUTATOR PRESSER, Lela Referring Unavailable Jaydon COMMUTATOR PRESSER, Lela Primary Care Unavailable Jaydon COMMUTATOR PRESSER, Lela Attending Unavailable Paola Corona Primary Care Unavailable Mike, Riley Attending Unavailable Mike, Riley Referring Unavailable Jolliff, Paola S Primary Care Unavailable Jolliff, Paola S Attending Unavailable Jolliff, Paola S Referring Unavailable Isaiah Lerner Attending Unavailable Geovanna Nino Attending Unavailable Brian Gonzales Consulting Unavailable Prah, Carlos Attending Unavailable Jaydon COMMUTATOR PRESSER, Lela Primary Care Unavailable Prah, Carlos Referring Unavailable Jolliff, Paola S Primary Care Unavailable Jolliff, Paola S Referring Unavailable Prah, Carlos Attending Unavailable Brian Negrete Attending Unavailable Latanya COMMUTATOR PRESSER, Lizzy Attending Unavailable Jaydon COMMUTATOR PRESSER, Lela Referring Unavailable Jaydon COMMUTATOR PRESSER, Lela Primary Care Unavailable Jaydon COMMUTATOR PRESSER, Lela Referring Unavailable Jaydon COMMUTATOR PRESSER, Lela Primary Care Unavailable Prah, Carlos Attending Unavailable Jolliff, Paola S Referring Unavailable Jolliff, Paola S Primary Care Unavailable Mike, Riley Attending Unavailable Eagle Eubanks Attending Unavailable Jolliff, Paola S Primary Care Unavailable Jolliff, Paola S Referring Unavailable Jolliff, Paola S Primary Care Unavailable Jolliff, Paola S Attending Unavailable Jolliff, Paola S Referring Unavailable Prah, Carlos Referring Unavailable Jaydon COMMUTATOR PRESSER, Lela Primary Care Unavailable Prah, Carlos Attending Unavailable Jaydon COMMUTATOR PRESSER, Lela Referring Unavailable Jaydon COMMUTATOR PRESSER, Lela Attending Unavailable Jaydon COMMUTATOR PRESSER, Lela Primary Care Unavailable Isaiah Lerner Attending Unavailable Isaiah Lerner Referring Unavailable Jaydon COMMUTATOR PRESSER, Lela Primary Care Unavailable Joseph Lindsey Attending Unavailable Isaiah Lerner Consulting Unavailable Najma Cates Admitting Unavailable Jaydon COMMUTATOR PRESSER, Lela Primary Care Unavailable Najma Cates Consulting Unavailable Brian Negrete Consulting Unavailable Jolliff, Paola S Primary Care Unavailable Mike, Sutter Consulting Unavailable Mike, Riley Attending Unavailable Mike, Riley Referring Unavailable Allergies Allergy Classification Reported Allergen(s) Allergy Type Date of Onset Reaction(s) Facility (20 sources) doxycycline; Translations: [doxycycline] drug allergy 2 Nausea [facility] Work Phone: (1 source) erythromycin drug allergy [facility] Work Phone: (20 sources) Erythromycin Drug Allergy 2 [facility] (20 sources) Penicillins; Translations: [Penicillins] Propensity to adverse reactions 2 Hives [facility] (14 sources) Clindamycin Drug Allergy 5 [facility] (1 source) Clindamycin Drug Allergy 5 [facility] Repository (1 source) erythromycin base Drug allergy (disorder) 5 [facility] Repository Medications Current Medications Medication Drug [...] mouth three times daily CALCIUM CARBONATE-VITAMIN D [id number] Selina Lealpie JAMES Calcium Carbonate/Vitamin D tablet (15 sources) Start: 08-01-2013 Calcium Carbonate/Vitamin D tablet Active 1 {tbl} PO DAILY August 01, 2013 12:00am Lactobacillus Combination No.9 (Adult 50 Plus Probiotic) 4 billion cell capsule (17 sources) Start: 03-23-2023 take 4 capsules by [...] 12:00am administer with a meal levothyroxine sodium 0.05 mg oral tablet (20 sources) l-Thyroxine Start: 06-16-2025 take 1 tablet by mouth once daily Levothyroxine 50 mcg tablet Active 50 ug PO DAILY June 16, 2025 12:00am Start: 04-12-2025 End: 06-16-2025 Levothyroxine 75 mcg tablet Discontinued 50 ug PO daily April 12, 2025 3:02pm June 16, 2025 8:59am Start: 01-11-2025 End: 04-12-2025 take 1 tablet by mouth once daily Levothyroxine 75 mcg tablet Discontinued 75 ug PO daily January 11, 2025 12:00am April 12, 2025 3:02pm Lidocaine / Prilocaine (4 sources) Antiarrhythmic, Amide Local Anesthetic Start: 06-13-2025 Lidocaine-Prilocaine 2.5-2.5 % cream Active 1 NMA TOPICAL ONCE as needed for port access 30 30 2 June 13, 2025 12:00am Malignant neoplasm of uterus Malignant neoplasm metastatic to lung Malignant neoplasm of uterus, part unspecified 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 24 hr metoprolol succinate 50 mg extended release oral tablet (14 sources) beta-Adrenergic Pinky Start: 01-11-2025 take 1 tablet by mouth once daily Metoprolol Succinate (Toprol Xl) 50 mg tablet extended release 24 hr Active 50 mg PO daily 90 3 January 11, 2025 12:00am Multivitamins,T herapeutic (8 sources) Start: 08-01-2013 take 1 tablet by mouth once daily Multivitamins,Therapeuti c Active 1 TABLET PO DAILY August 01, 2013 4:33pm Start: 08-01-2013 take 1 tablet by [facility] once daily Multivitamins,Therapeutic Active 1 TABLE T PO DAILY August 01, 2013 12:00am Multivitamins,Therapeutic tablet (15 sources) Start: 08-01-2013 Multivitamins,Therapeutic tablet Active 1 {tbl} PO DAILY August 01, 2013 12:00am ondansetron 8 mg disintegrating oral tablet (20 sources) Serotonin-3 Receptor Antagonist Start: 06-13-2025 take 1 tablet by mouth every eight hours as needed for nausea and vomiting Ondansetron 8 mg tablet,disintegrating Active 8 mg PO Q8H as needed for nausea and vomiting 30 2 June 13, 2025 12:00am Malignant neoplasm of uterus Malignant neoplasm metastatic to lung Malignant neoplasm of uterus, part unspecified 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 Start: 06-05-2022 End: 03-23-2023 take 1 tablet by mouth every eight hours as needed for nausea and vomiting Ondansetron 4 mg tablet,disintegrating Discontinued 4 mg PO Q8H as needed for nausea and vomiting 14 0 June 05, 2022 12:00am March 23, 2023 1:27pm prochlorperazine 10 mg oral tablet (4 sources) Phenothiazine Start: 06-13-2025 take 1 tablet by mouth every six hours as needed for nausea and vomiting Prochlorperazine Maleate 10 mg tablet Active 10 mg PO EVERY 6 HOURS as needed for nausea and vomiting 30 2 June 13, 2025 12:00am Chemotherapy-induced nausea and vomiting Nausea with vomiting, unspecified Adverse effect of antineoplastic and immunosuppressive drugs, initial encounter Completed/Discontinued Medications Medication Drug Class(es) Dates Sig (Normalized) Sig (Original) calcium carbonate 500 mg chewing gum (1 source) TUMS 500 MG CHEW Use as directed as needed CALCIUM CARBONATE ANTACID [id number] Selina Ainsley RAMIREZ cephalexin 500 mg oral capsule (16 sources) Cephalosporin Antibacterial Start: 12-10-2023 End: 12-20-2023 take 1 capsule by mouth every twelve hours Cephalexin 500 mg capsule Discontinued 500 mg PO Q12H 20 10 December 10, 2023 1:00am December 19, 2023 1:00am December 20, 2023 1:04am clindamycin 300 mg oral capsule (16 sources) Lincosamide Antibacterial Start: 02-08-2024 End: 04-05-2024 take 1 capsule by mouth three times daily Clindamycin Hcl 300 mg capsule Discontinued 300 mg PO THREE TIMES A DAY 15 February 08, 2024 12:00am April 05, 2024 2:55pm famotidine 20 mg oral tablet (15 sources) Histamine-2 Receptor Antagonist Start: 12-01-2024 End: 06-05-2025 take 1 tablet by mouth once daily Famotidine (Zantac-360 (Famotidine)) 20 mg tablet Discontinued 20 mg PO daily December 01, 2024 1:00am June 05, 2025 3:06pm MULTIPLE VITAMIN (1 source) take 1 tablet by mouth once daily MULTIVITAMINS TABS One tablet by mouth daily MULTIPLE VITAMIN [id number] Selina Ainsley RAMIREZ Nystatin 100,000 unit/mL suspension (15 sources) Start: 02-24-2024 End: 03-23-2024 take 1 [...] omeprazole 20 mg delayed release oral capsule (20 sources) Proton Pump Inhibitor Start: 02-16-2022 End: 03-23-2023 take 1 capsule by mouth once daily Omeprazole 20 mg capsule,delayed release(DR/EC) Discontinued 20 mg PO DAILY February 16, 2022 12:00am March 23, 2023 1:27pm promethazine hydrochloride 25 mg oral tablet (2 sources) Phenothiazine End: 04-04-2013 take 1 tablet by mouth every six hours as needed for nausea PROMETHAZINE HCL 25 MG TABS One tablet by mouth every 6 hours as needed for nausea PROMETHAZINE HCL [id number] Selina Schmitz LPN psyllium 3400 mg powder [...] 1/2 tsp with water once daily PSYLLIUM [id number] Selina Schmitz LPN vitamin b6 100 mg oral table t (20 sources) Start: 08-02-2013 End: 02-18-2017 Pyridoxine Hcl (Vitamin B-6) 100 MG tablet Discontinued 50 mg PO TWICE A DAY August 02, 2013 12:00am February 18, 2017 1:35pm End: 11-21-2014 take 1 tablet by mouth twice daily VITAMIN B-6 50 MG TABS One tablet by mouth twice daily PYRIDOXINE HCL [id number] Selina Schmitz LPN Problems Active Problems Problem Classification Problem Date Documented Date Episodic/Chronic Abdominal pain (20 sources) Right upper quadrant pain; Translations: [Right upper quadrant pain] Onset: 06-06-2025 05-02-2021 Episodic Comment on above: Patient has describe d this pain as more discomfort and has minimal tenderness on exam Administrative/socia l admission (18 sources) Patient encounter status; Translations: [Counseling, unspecified] 06-08-2025 Episodic Cancer of uterus (20 sources) Adenocarcinoma of [...] is poor but depends on therapy.Discussed therapy options again, Taxol, Carboplatin and Keytruda, Pt wants proceed.Counts and chemistry reviewed, Ok to proceed. Cancer of uterus (20 sources) History of malignant neoplasm of endometrium; Translations: [Personal history of malignant neoplasm of other parts of uterus] Onset: 04-12-2025 Episodic Comment on above: No evidence of disea se clinically. CA125 is high, need to R/O metastatic disease. CA125 is high.CT on 04/17/2025 shows Lung mass Diverticulosis and diverticulitis (20 sources) Diverticular disease; Translations: [Diverticulosis of intestine, part unspecified, without perforation or abscess without bleeding] 05-02-2021 Chronic E Codes: Fall (20 sources) Fall; Translations: [Unspecified fall, initial encounter] 02-24-2022 Episodic Esophageal disorders (15 sources) Gastric reflux; Translations: [Gastro-esophageal reflux disease without esophagitis] 12-01-2024 Chronic Comment on above: CONTROLLED WITH MED Essential hypertension (20 sources) Hypertensive disorder; Translations: [Essential (primary) hypertension] Onset: 01-11-2025 02-24-2024 Chronic Genitourinary symptoms and ill-defined conditions (17 sources) Increased frequency of urination; Translations: [Frequency of micturition] 02-04-2024 Episodic Influenza (16 sources) Influenza due to Influenza A virus; Translations: [Influenza due to other identified influenza virus with other respiratory manifestations] 12-10-2023 Episodic Intestinal obstruction without hernia (1 source) Partial intestinal obstruction, unspecified as to cause; Translations: [Partial intestinal obstruction, unspecified as to cause] Onset: 06-04-2025 Episodic Maintenance chemotherapy; radiotherapy (3 sources) Patient encounter status; Translations: [Encounter for antineoplastic chemotherapy] Onset: 06-26-2025 06-26-2025 Chronic Malignant neoplasm without specification of site (15 sources) Malignant neoplastic disease; Translations: [Malignant (primary) neoplasm, unspecified] 12-01-2024 Chronic Comment on above: Uterine CA 2013 chem o and radiation complete Uterine CA 2013 chem o and radiation complete/CURRENTLY DX WITH STAGE 4 LUNG CANCER Mycoses (15 sources) Candidiasis of mouth; Translations: [Candidal stomatitis] [...] know if her symptoms do persist. Other aftercare (1 source) Encounter for adjustment and management of vascular access device; Translations: [Encounter for adjustment and management of vascular access device] Onset: 06-28-2025 Episodic Other injuries and conditions due to external causes (14 sources) Other specified injuries of thorax, initial encounter; Translations: [Contusion of rib on right side] 02-24-2022 Episodic Other lower respiratory disease (20 sources) Lung mass; Translations: [Other nonspecific abnormal [...] Onset: 05-19-2025 Episodic Other lower respiratory disease (17 sources) Cough; Translations: [Cough] 12-26-2023 Episodic Other lower respiratory disease (20 sources) Nodule of lung; Translations: [Solitary pulmonary nodule] 12-01-2024 Episodic Comment on above: right upper lobe Other screening for suspected conditions (not mental disorders or infectious disease) (3 sources) Encounter for screening mammogram for malignant neoplasm of breast; Translations: [Other abnormal tumor markers] Onset: 02-14-2025 Episodic Other upper respiratory infections (20 sources) Posterior rhinorrhea; Translations: [Postnasal drip] 12-26-2023 Episodic Secondary malignancies (16 sources) Secondary malignant neoplasm of lung; Translations: [Secondary malignant neoplasm of unspecified lung] 06-05-2025 Chronic Comment on above: From Uterine cancer. Secondary malignancies (1 source) Secondary malignant neoplasm of right lung; Translations: [Secondary malignant neoplasm of right lung] Onset: 06-26-2025 Chronic Secondary malignancies (1 source) Secondary malignant neoplasm of left lung; Translations: [Secondary malignant neoplasm of left lung] Onset: 06-26-2025 Chronic Sprains and strains (20 sources) Strain of [...] of breast] 11-21-2014 Episodic Unclassified (1 source) Encounter for other specified prophylactic measures; Translations: [Encounter for other specified prophylactic measures] Onset: 06-26-2025 Unclassified (1 source) Supraventricular tachycardia, unspecified; Translations: [Supraventricular tachycardia, unspecified] Onset: 02-14-2025 Past or Other Problems Problem Classification Problem Date Documented Da te Episodic/Chronic Cardiac dysrhythmias (20 sources) Tachycardia; Translations: [Tachycardia, unspecified] Onset: 01-11-2025 12-01-2024 Episodic Results Test Name Value Interpretation Reference Range Facility CBC W/Diff, Automatedon 06-13 Absolute Lymph 0.44 X10 3/uL Low 0.83-4.51 [facility] Comment on above: Performed By: #### L 500.4050, L501.5200, L100.0100 ####[facility] [address] [place], [address] Absolute Neut 3.4 X10 3/uL Normal 2.0-7.7 [facility] Comment on above: Performed By: #### L 500.4050, L501.5200, L100.0100 ####[facility] [address] [place], [address] Basophils/100 WBC (Bld) 1.2 % High 0-1 [facility] Comment on above: Performed By: #### L 500.4050, L501.5200, L100.0100 ####[facility] [address] [place], [address] Eosinophils/100 WBC (Bld) 2.1 % Normal 0-5 [facility] Comment on above: Performed By: #### L 500.4050, L501.5200, L100.0100 ####[facility] [address] [place], [address] Erythrocyte distribution width (RBC) [Ratio] 13.5 % Normal 11.6-14.6 [facility] Comment on above: Performed By: #### L 500.4050, L501.5200, L100.0100 ####[facility] [address] [place], [address] Hematocrit (Bld) [Volume fraction] 28.9 % Low 37-47 [facility] Comment on above: Performed By: #### L 500.4050, L501.5200, L100.0100 ####[facility] [address] [place], [address] Hemoglobin (Bld) [Mass/Vol] 9.3 g/dL Low 12.0-15.0 [facility] Comment on above: Performed By: #### L 500.4050, L501.5200, L100.0100 ####[facility] [address] [place], [address] IG% 1.200 High 0.0-0.9 [facility] Comment on above: Result Comment: IG% - Immature Granulocytes (promyelocytes, myelocytes andmetamyelocytes) > 1% indicates that a LEFT SHIFT is Present. Performed By: #### L 500.4050, L501.5200, L100.0100 ####[facility] [address] [place], [address] Lymphocytes/100 WBC (Bld) 10.5 % Low 19-41 [facility] Comment on above: Performed By: #### L 500.4050, L501.5200, L100.0100 ####[facility] [address] [place], [address] MCH (RBC) [Entitic mass] 28.2 pg Normal 27.0-32.0 [facility] Comment on above: Performed By: #### L 500.4050, L501.5200, L100.0100 ####[facility] [address] [place], [address] MCHC (RBC) [Mass/Vol] 32.2 g/dL Normal 32-36 [facility] Comment on above: Performed By: #### L 500.4050, L501.5200, L100.0100 ####[facility] [address] [place], [address] MCV (RBC) [Entitic vol] 87.6 fL Normal 81-99 [facility] Comment on above: Performed By: #### L 500.4050, L501.5200, L100.0100 ####[facility] [address] [place], [address] Monocytes/100 WBC (Bld) 5.5 % Normal 0-10 [facility] Comment on above: Performed By: #### L 500.4050, L501.5200, L100.0100 ####[facility] [address] [place], [address] Neutrophils/100 WBC (Bld) 79.5 % High 47-70 [facility] Comment on above: Performed By: #### L 500.4050, L501.5200, L100.0100 ####[facility] [address] [place], [address] Nucleated RBC (Bld) [#/Vol] 0 10*3/uL Normal 0-5 [facility] Comment on above: Performed By: #### L 500.4050, L501.5200, L100.0100 ####[facility] [address] [place], [address] Platelet mean volume (Bld) [Entitic vol] 10.6 fL Normal 6.2-12.0 [facility] Comment on above: Performed By: #### L 500.4050, L501.5200, L100.0100 ####[facility] [address] [place], [address] Platelets (Bld) [#/Vol] 274 10*3/uL Normal 150-450 [facility] Comment on above: Performed By: #### L 500.4050, L501.5200, L100.0100 ####[facility] [address] [place], [address] RBC (Bld) [#/Vol] 3.30 10*6/uL Low 4.2-5.4 [facility] Comment on above: Performed By: #### L 500.4050, L501.5200, L100.0100 ####[facility] [address] [place], [address] RDW SD 43.5 fl Normal 35.1-43.9 [facility] Comment on above: Performed By: #### L 500.4050, L501.5200, L100.0100 ####[facility] [address] [place], [address] WBC (Bld) [#/Vol] 4.2 10*3/uL Low 4.4-11.0 [facility] Comment on above: Performed By: #### L 500.4050, L501.5200, L100.0100 ####[facility] [address] [place], [address] Comprehensive Metabolic Prof [facility] 07-03-2025 Albumin [Mass/Vol] 3.9 g/dL Normal 3.4-4.8 [facility] Comment on above: Performed By: #### L 500.4050, L501.5200, L100.0100 ####[facility] [address] [place], [address] Albumin/Globulin [Mass ratio] 1.3 {ratio} Normal 0.9-2.4 [facility] Comment on above: Performed By: #### L 500.4050, L501.5200, L100.0100 ####[facility] [address] [place], [address] ALK PHOS 69 U/L Normal 35-104 [facility] Comment on above: Performed By: #### L 500.4050, L501.5200, L100.0100 ####[facility] [address] [place], [address] ALT [Catalytic activity/Vol] 16 U/L Normal <=34 [facility] Comment on above: Performed By: #### L 500.4050, L501.5200, L100.0100 ####[facility] [address] [place], [address] AST [Catalytic activity/Vol] 25 U/L Normal <=31 [facility] Comment on above: Performed By: #### L 500.4050, L501.5200, L100.0100 ####[facility] [address] [place], [address] Bilirubin [Mass/Vol] 0.35 mg/dL Normal 0.00-1.30 [facility] Comment on above: Performed By: #### L 500.4050, L501.5200, L100.0100 ####[facility] [address] [place], [address] BUN/CRE 27.3 RATIO High 10-20 [facility] Comment on above: Performed By: #### L 500.4050, L501.5200, L100.0100 ####[facility] [address] [place], [address] Calcium [Mass/Vol] 9.2 mg/dL Normal 7.6-11.0 [facility] Comment on above: Performed By: #### L 500.4050, L501.5200, L100.0100 ####[facility] [address] [place], [address] Chloride [Moles/Vol] 100 mmol/L Normal 98-108 [facility] Comment on above: Performed By: #### L 500.4050, L501.5200, L100.0100 ####[facility] [address] [place], [address] CO2 [Moles/Vol] 22.1 mmol/L Normal 21.0-32.0 [facility] Comment on above: Performed By: #### L 500.4050, L501.5200, L100.0100 ####[facility] [address] [place], [address] Creatinine [Mass/Vol] 0.61 mg/dL Low 0.70-1.20 [facility] Comment on above: Performed By: #### L 500.4050, L501.5200, L100.0100 ####[facility] [address] [place], [address] ECRCL 45.36 ml/min Low 50-250 [facility] Comment on above: Performed By: #### L 500.4050, L501.5200, L100.0100 ####[facility] [address] [place], [address] GAP 11 Normal 5-15 [facility] Comment on above: Performed By: #### L 500.4050, L501.5200, L100.0100 ####[facility] [address] [place], [address] GFR/1.73 sq M.predicted among non-blacks MDRD (S/P/Bld) [Vol rate/Area] 88 mL/min/{1.73_m2} Normal >60 [facility] Comment on above: Result Comment: mL/m in/1.73m2 CKD-EPI Creatinine Equation (2020) Performed By: #### L 500.4050, L501.5200, L100.0100 ####[facility] [address] [place], [address] Globulin (S) [Mass/Vol] 3.0 g/dL Normal 2.2-4.2 [facility] Comment on above: Performed By: #### L 500.4050, L501.5200, L100.0100 ####[facility] [address] [place], [address] Glucose [Mass/Vol] 101 mg/dL High 70-99 [facility] Comment on above: Performed By: #### L 500.4050, L501.5200, L100.0100 ####[facility] [address] [place], [address] Potassium [Moles/Vol] 3.9 mmol/L Normal 3.3-5.1 [facility] Comment on above: Performed By: #### L 500.4050, L501.5200, L100.0100 ####[facility] [address] [place], [address] Sodium [Moles/Vol] 133 mmol/L Normal 133-145 [facility] Comment on above: Performed By: #### L 500.4050, L501.5200, L100.0100 ####[facility] [address] [place], [address] T PROT 6.9 g/dL Normal 5.9-8.4 [facility] Comment on above: Performed By: #### L 500.4050, L501.5200, L100.0100 ####[facility] [address] [place], [address] Urea nitrogen [Mass/Vol] 17 mg/dL Normal 4-19 [facility] Comment on above: Performed By: #### L 500.4050, L501.5200, L100.0100 ####[facility] [address] [place], [address] Magnesiumon 07-03-2025 Magnesium [Mass/Vol] 2.0 mg/dL Normal 1.5-2.2 [facility] Comment on above: Performed By: #### L 500.4050, L501.5200, L100.0100 ####[facility] [address] [place], [address] Cancer Antigen 125on 025 CA 125 135.0 U/mL High 0.0-38.1 [facility] Comment on above: Result Comment: [email or web address] Electrochemiluminescence Immunoassay(ECLIA)Values obtained with different assay methods or kits cannotbe used interchangeably. Results cannot be interpreted asabsolute evidence of the presence or absence of malignantdisease.Performed at: [address] [id number] Director: Guero Smyth PhD, Phone: [phone] Performed By: #### L 8900.3718, H682.7401 ####[facility] [address] [place], [address] Absolute lymphocyte countOrd ered By: Carlos Bernal on 06-26-2025 Lymphocytes Auto (Unsp spec) [#/Vol] 0.66 10*3/uL Low 0.83-4.51 [facility] Absolute neutrophil countOrd ered By: Carlos Bernal on 06-26-2025 Neutrophils (Bld) [#/Vol] 5.6 10*3/uL 2.0-7.7 [facility] Automated lymphocyte count a s percentage of total leukocytesOrdered By: Carlos Bernal on 06-26-2025 Lymphocytes/100 WBC Auto (Unsp spec) 9.5 % Low 19-41 [facility] Basophil percentageOrdered B y: Carlos Bernal on 06-26-2025 Basophils/100 WBC (Bld) 0.6 % 0-1 [facility] CBC W/Diff, Automatedon 06-12 Absolute Lymph 0.66 X10 3/uL Low 0.83-4.51 [facility] Comment on above: Performed By: #### L 100.0100 ####[facility] [address] [place], [address] Absolute Neut 5.6 X10 3/uL Normal 2.0-7.7 [facility] Comment on above: Performed By: #### L 100.0100 ####[facility] [address] [place], [address] Basophils/100 WBC (Bld) 0.6 % Normal 0-1 [facility] Comment on above: Performed By: #### L 100.0100 ####[facility] [address] [place], [address] Eosinophils/100 WBC (Bld) 0.7 % Normal 0-5 [facility] Comment on above: Performed By: #### L 100.0100 ####[facility] [address] [place], [address] Erythrocyte distribution width (RBC) [Ratio] 14.1 % Normal 11.6-14.6 [facility] Comment on above: Performed By: #### L 100.0100 ####[facility] [address] [place], [address] Hematocrit (Bld) [Volume fraction] 29.7 % Low 37-47 [facility] Comment on above: Performed By: #### L 100.0100 ####[facility] [address] [place], [address] Hemoglobin (Bld) [Mass/Vol] 9.4 g/dL Low 12.0-15.0 [facility] Comment on above: Performed By: #### L 100.0100 ####[facility] [address] [place], [address] IG% 0.100 Normal 0.0-0.9 [facility] Comment on above: Result Comment: IG% - Immature Granulocytes (promyelocytes, myelocytes andmetamyelocytes) > 1% indicates that a LEFT SHIFT is Present. Performed By: #### L 100.0100 ####[facility] [address] [place], [address] Lymphocytes/100 WBC (Bld) 9.5 % Low 19-41 [facility] Comment on above: Performed By: #### L 100.0100 ####[facility] [address] [place], [address] MCH (RBC) [Entitic mass] 28.0 pg Normal 27.0-32.0 [facility] Comment on above: Performed By: #### L 100.0100 ####[facility] [address] [place], [address] MCHC (RBC) [Mass/Vol] 31.6 g/dL Low 32-36 [facility] Comment on above: Performed By: #### L 100.0100 ####[facility] [address] [place], [address] MCV (RBC) [Entitic vol] 88.4 fL Normal 81-99 [facility] Comment on above: Performed By: #### L 100.0100 ####[facility] [address] [place], [address] Monocytes/100 WBC (Bld) 9.0 % Normal 0-10 [facility] Comment on above: Performed By: #### L 100.0100 ####[facility] [address] [place], [address] Neutrophils/100 WBC (Bld) 80.1 % High 47-70 [facility] Comment on above: Performed By: #### L 100.0100 ####[facility] [address] [place], [address] Nucleated RBC (Bld) [#/Vol] 0 10*3/uL Normal 0-5 [facility] Comment on above: Performed By: #### L 100.0100 ####[facility] [address] [place], [address] Platelet mean volume (Bld) [Entitic vol] 10.7 fL Normal 6.2-12.0 [facility] Comment on above: Performed By: #### L 100.0100 ####[facility] [address] [place], [address] Platelets (Bld) [#/Vol] 297 10*3/uL Normal 150-450 [facility] Comment on above: Performed By: #### L 100.0100 ####[facility] [address] [place], [address] RBC (Bld) [#/Vol] 3.36 10*6/uL Low 4.2-5.4 [facility] Comment on above: Performed By: #### L 100.0100 ####[facility] [address] [place], [address] RDW SD 45.5 fl High 35.1-43.9 [facility] Comment on above: Performed By: #### L 100.0100 ####[facility] [address] [place], [address] WBC (Bld) [#/Vol] 7.0 10*3/uL Normal 4.4-11.0 [facility] Comment on above: Performed By: #### L 100.0100 ####[facility] [address], [address] [facility] Albumin [Mass/Vol] 3.9 g/dL Normal 3.4-4.8 [facility] Comment on above: Performed By: #### L 500.4050, L501.5200, L501.9520 ####[facility] [address] [place], [address] Albumin/Globulin [Mass ratio] 1.1 {ratio} Normal 0.9-2.4 [facility] Comment on above: Performed By: #### L 500.4050, L501.5200, L501.9520 ####[facility] [address] [place], [address] ALK PHOS 75 U/L Normal 35-104 [facility] Comment on above: Performed By: #### L 500.4050, L501.5200, L501.9520 ####[facility] [address] [place], [address] ALT [Catalytic activity/Vol] 14 U/L Normal <=34 [facility] Comment on above: Performed By: #### L 500.4050, L501.5200, L501.9520 ####[facility] [address] [place], [address] AST [Catalytic activity/Vol] 28 U/L Normal <=31 [facility] Comment on above: Performed By: #### L 500.4050, L501.5200, L501.9520 ####[facility] [address] [place], [address] Bilirubin [Mass/Vol] 0.29 mg/dL Normal 0.00-1.30 [facility] Comment on above: Performed By: #### L 500.4050, L501.5200, L501.9520 ####[facility] [address] [place], [address] BUN/CRE 24.7 RATIO High 10-20 [facility] Comment on above: Performed By: #### L 500.4050, L501.5200, L501.9520 ####[facility] [address] [place], [address] Calcium [Mass/Vol] 9.2 mg/dL Normal 7.6-11.0 [facility] Comment on above: Performed By: #### L 500.4050, L501.5200, L501.9520 ####[facility] [address] [place], [address] Chloride [Moles/Vol] 101 mmol/L Normal 98-108 [facility] Comment on above: Performed By: #### L 500.4050, L501.5200, L501.9520 ####[facility] [address] [place], [address] CO2 [Moles/Vol] 22.6 mmol/L Normal 21.0-32.0 [facility] Comment on above: Performed By: #### L 500.4050, L501.5200, L501.9520 ####[facility] [address] [place], [address] Creatinine [Mass/Vol] 0.67 mg/dL Low 0.70-1.20 [facility] Comment on above: Performed By: #### L 500.4050, L501.5200, L501.9520 ####[facility] [address] [place], [address] ECRCL 46.22 ml/min Low 50-250 [facility] Comment on above: Performed By: #### L 500.4050, L501.5200, L501.9520 ####[facility] [address] [place], [address] GAP 12 Normal 5-15 [facility] Comment on above: Performed By: #### L 500.4050, L501.5200, L501.9520 ####[facility] [address] [place], [address] GFR/1.73 sq M.predicted among non-blacks MDRD (S/P/Bld) [Vol rate/Area] 86 mL/min/{1.73_m2} Normal >60 [facility] Comment on above: Result Comment: mL/m in/1.73m2 CKD-EPI Creatinine Equation (2020) Performed By: #### L 500.4050, L501.5200, L501.9520 ####[facility] [address] [place], [address] Globulin (S) [Mass/Vol] 3.5 g/dL Normal 2.2-4.2 [facility] Comment on above: Performed By: #### L 500.4050, L501.5200, L501.9520 ####[facility] [address] [place], [address] Glucose [Mass/Vol] 104 mg/dL High 70-99 [facility] Comment on above: Performed By: #### L 500.4050, L501.5200, L501.9520 ####[facility] [address] [place], [address] Potassium [Moles/Vol] 3.9 mmol/L Normal 3.3-5.1 [facility] Comment on above: Performed By: #### L 500.4050, L501.5200, L501.9520 ####[facility] [address] [place], [address] Sodium [Moles/Vol] 135 mmol/L Normal 133-145 [facility] Comment on above: Performed By: #### L 500.4050, L501.5200, L501.9520 ####[facility] [address] [place], [address] T PROT 7.4 g/dL Normal 5.9-8.4 [facility] Comment on above: Performed By: #### L 500.4050, L501.5200, L501.9520 ####[facility] [address] [place], [address] Urea nitrogen [Mass/Vol] 16 mg/dL Normal 4-19 [facility] Comment on above: Performed By: #### L 500.4050, L501.5200, L501.9520 ####[facility] [address] [place], [address] Eosinophil percentageOrdered By: Carlos Bernal on 06-26-2025 Eosinophils/100 WBC (Bld) 0.7 % 0-5 [facility] Erythrocyte distribution wid th ratioOrdered By: Carlos Dolores on 06-26-2025 Erythrocyte distribution width (RBC) [Ratio] 14.1 % 11.6-14.6 [facility] Erythrocyte distribution wid th standard deviationOrdered By: Carlos Bernal on 06-26-2025 Erythrocyte distribution width (RBC) [Ratio] 45.5 fl High 35.1-43.9 [facility] Ferritinon 06-26-2025 Ferritin [Mass/Vol] 116 ng/mL Normal 22-378 [facility] Comment on above: Performed By: #### L 3100.5000, L503.6550 ####[facility] [address] [place], [address] Hematocrit Auto (Bld) [Volum e fraction]Ordered By: Carlos Bernal on 06-26-2025 Hematocrit (Bld) [Volume fraction] 29.7 % Low 37-47 [facility] Hemoglobin measurementOrdere d By: Carlos Bernal on 06-26-2025 Hemoglobin (Bld) [Mass/Vol] 9.4 g/dL Low 12.0-15.0 [facility] Immature granulocytes/100 WB C Auto (Bld)Ordered By: Carlos Bernal on 06-26-2025 Immature granulocytes/100 WBC (Bld) 0.100 % 0.0-0.9 [facility] Comment on above: IG% - Immature Granu locytes (promyelocytes, myelocytes and metamyelocytes) > 1% indicates that a LEFT SHIFT is Present. Iron+Iron Binding Capacityon 06-26-2025 Iron [Mass/Vol] 46 ug/dL Low 50-170 [facility] Comment on above: Performed By: #### L 503.0106, L503.6030 ####[facility] [address] [place], [address] IRON SATURATION 16.3 Normal 13-59 [facility] Comment on above: Performed By: #### L 503.0106, L503.6030 ####[facility] [address] [place], [address] TIBC 279 ug/dL Normal 250-450 [facility] Comment on above: Performed By: #### L 503.0106, L503.6030 ####[facility] [address] [place], [address] UIBC 233 ug/dL Normal 228-428 [facility] Comment on above: Performed By: #### L 503.0106, L503.6030 ####[facility] [address] [place], [address] MCV (mean corpuscular volume ) determinationOrdered By: Carlos Bernal on 06-26-2025 MCV (RBC) [Entitic vol] 88.4 fL 81-99 [facility] Magnesiumon 06-26-2025 Magnesium [Mass/Vol] 2.1 mg/dL Normal 1.5-2.2 [facility] Comment on above: Performed By: #### L 500.4050, L501.5200, L501.9520 ####[facility] [address] [place], [address] Mean corpuscular hemoglobin (MCH) determinationOrdered By: Carlos Bernal on 06-26-2025 MCH (RBC) [Entitic mass] 28.0 pg 27.0-32.0 [facility] Mean corpuscular hemoglobin concentration (MCHC) determinationOrdered By: Carlos Bernal on 06-26-2025 MCHC (RBC) [Mass/Vol] 31.6 g/dL Low 32-36 [facility] Mean platelet volume determi nationOrdered By: Carlos Bernal on 06-26-2025 Platelet mean volume (Bld) [Entitic vol] 10.7 fL 6.2-12.0 [facility] Monocyte percentageOrdered B y: Carlos Bernal on 06-26-2025 Monocytes/100 WBC (Bld) 9.0 % 0-10 [facility] Neutrophil percentageOrdered By: Carlos Bernal on 06-26-2025 Neutrophils/100 WBC (Bld) 80.1 % High 47-70 [facility] Nucleated red blood cell per centageOrdered By: Carlos Bernal on 06-26-2025 Nucleated RBC/100 WBC (Bld) [Ratio] 0 % 0-5 [facility] Oncology Visit Reporton 06-12 Oncology Visit Report Normal [facility] Platelet countOrdered By: Emily Bernal on 06-26-2025 Platelets (Bld) [#/Vol] 297 10*3/uL 150-450 [facility] RBC Auto (Bld) [#/Vol]Ordere d By: Carlos Bernal on 06-26-2025 RBC (Bld) [#/Vol] 3.36 10*6/uL Low 4.2-5.4 [facility] Thyroid Stim Hormone (TSH)on 06-26-2025 TSH 3.510 uIU/mL Normal 0.300-4.200 [facility] Comment on above: Performed By: #### L 500.4050, L501.5200, L501.9520 ####[facility] [address] [place], [address] Vitamin B12on 06-26-2025 Cobalamin (Vitamin B12) [Mass/Vol] 390 pg/mL Normal 180-914 [facility] Comment on above: Performed By: #### L 503.0106, L503.6030 ####[facility] [address] [place], [place], [address] White blood cell (WBC) count Ordered By: Carlos Bernal on 06-26-2025 WBC (Bld) [#/Vol] 7.0 10*3/uL 4.4-11.0 [facility]oste r [facility] CXR for Line Placementon CXR for Line Placement Normal richard [facility] Discharge Instructionon 06-12 Discharge Instruction Normal [facility] MR/POSTOP.ANEon 06-22-2025 MR/POSTOP.ANE Normal [facility] MR/FQDRZZUS2wg 06-22-2025 MR/POSTOPAN2 Normal [facility] Operative Reporton Operative Report Normal [facility] MR/PAT.ANEon 06-16-2025 MR/PAT.ANE Normal [facility] Surgery Visit Reporton 06-15 Surgery Visit Report Normal [facility] Breast imaging reportOrdered By: Margaux Turner on 06-09-2025 Study report [facility] Imaging Services [address] [place], [place] [address] SCRN MAMM (CAD)W/CHARLENE BILAT MR#: [id number] Acct: [id number] Name: LUZ CLANCY Rep #: [id number] : 1940 F 85 From: Paula Turner MD PCP: Lela Interiano NP-Lilian Status: REG CLI Study:SCRN MAMM (CAD)W/CHARLENE BILAT Date of Exa m: 06/09/25 Exam# [id number] Ordering Dr: Edward Interiano NP COMMUTATOR PRESSER-C EXAM: SCRN MAMM (CAD)W/CHARLENE BILAT DATE: 06/09/2025 CLINICAL HISTORY: F, Age 85 y/o , POST MENOPAUSE TECHNIQUE: SCRN MAMM (CAD)W/CHARLENE BILAT COMPARISON: Prior exam(s) dated 05/02/2024, 04/20/2023, 04/07/2022. FINDINGS: TISSUE DENSITY: The breasts are heterogeneously dense, which may obscure small masses. The mammogram demonstrates that the patient has dense breasts. Supplemental screening with whole breast ultrasound or MRI may be considered for further evaluation. Bilateral Breast Mammographic Findings: No significant masses, calcifications or other abnormalities are identified. BI/SCRN MAMM (CAD)W/CHARLENE BILAT IMPRESSION: There is no mammographic evidence of malignancy. OVERALL FINAL ASSESSMENT BI-RADS 1: NEGATIVE. RECOMMENDATION: Routine annual follow-up in 1 Year A letter with findings and recommendations will be mailed to the patient. Reading Location: [id number] CC: MARILEE Interiano ~ Brand Recorder: Signed [facility] SCRN MAMM (CAD)W/CHARLENE BILATo n 06-09-2025 SCRN MAMM (CAD)W/CHARLENE BILAT Normal [facility] Oncology Visit Reporton 05-13 Oncology Visit Report Normal [facility] Oncology Visit Reporton 05-13 Oncology Visit Report Normal [facility] Anion gap in Serum or Plasma Ordered By: Lela Interiano on 05-29-2025 Anion gap [Moles/Vol] 13 mmol/L -15 [facility] BUN/creatinine ratioOrdered By: Lela Interiaon on 05-29-2025 Urea nitrogen/Creatinine [Mass ratio] 14.3 mg/mg 10-20 [facility] Bilirubin, totalOrdered By: Lela Interiano on 05-29-2025 Bilirubin [Mass/Vol] 0.21 mg/dL 0.00-1.30 [facility] Carbon dioxide, total [Moles /volume] in Central venous bloodOrdered By: Lela Interiano on 05-29-2025 CO2 [Moles/Vol] 23.5 mmol/L 21.0-32.0 [facility] Chloride assayOrdered By: Travis Interiano on 05-29-2025 Chloride [Moles/Vol] 99 mmol/L 98-108 [facility] Comprehensive Metabolic Prof ilon 05-29-2025 Albumin [Mass/Vol] 4.1 g/dL Normal 3.4-4.8 [facility] Comment on above: Order Comment: Order Date: 05/29/25Order Info: [id number] - CMPOrder Info: [id number] - TSH Performed By: #### L 500.4050, L501.9520 ####[facility] [address] [place], [address] Albumin/Globulin [Mass ratio] 1.2 {ratio} Normal 0.9-2.4 [facility] Comment on above: Order Comment: Order Date: 05/29/25Order Info: [id number] - CMPOrder Info: [id number] - TSH Performed By: #### L 500.4050, L501.9520 ####[facility] [address] [place], [address] ALK PHOS 70 U/L Normal 35-104 [facility] Comment on above: Order Comment: Order Date: 05/29/25Order Info: [id number]- - CMPOrder Info: [id number] - TSH Performed By: #### L 500.4050, L501.9520 ####[facility] [address] [place], [address] ALT [Catalytic activity/Vol] 19 U/L Normal <=34 [facility] Comment on above: Order Comment: Order Date: 05/29/25Order Info: [id number] - CMPOrder Info: [id number] - TSH Performed By: #### L 500.4050, L501.9520 ####[facility] [address] [place], [address] AST [Catalytic activity/Vol] 28 U/L Normal <=31 [facility] Comment on above: Order Comment: Order Date: 05/29/25Order Info: [id number] - CMPOrder Info: [id number] - TSH Performed By: #### L 500.4050, L501.9520 ####[facility] [address] [place], [address] Bilirubin [Mass/Vol] 0.21 mg/dL Normal 0.00-1.30 [facility] Comment on above: Order Comment: Order Date: 05/29/25Order Info: [id number]- - CMPOrder Info: [id number] - TSH Performed By: #### L 500.4050, L501.9520 ####[facility] [address] [place], [address] BUN/CRE 14.3 RATIO Normal 10-20 [facility] Comment on above: Order Comment: Order Date: 05/29/25Order Info: [id number]- - CMPOrder Info: [id number] - TSH Performed By: #### L 500.4050, L501.9520 ####[facility] [address] [place], [address] Calcium [Mass/Vol] 9.9 mg/dL Normal 7.6-11.0 [facility] Comment on above: Order Comment: Order Date: 05/29/25Order Info: 785- - CMPOrder Info: 3015-3 - TSH Performed By: #### L 500.4050, L501.9520 ####[facility] [address] [place], [address] Chloride [Moles/Vol] 99 mmol/L Normal 98-108 [facility] Comment on above: Order Comment: Order Date: 05/29/25Order Info: [id number] - CMPOrder Info: 3015-3 - TSH Performed By: #### L 500.4050, L501.9520 ####[facility] [address] [place], [address] CO2 [Moles/Vol] 23.5 mmol/L Normal 21.0-32.0 [facility] Comment on above: Order Comment: Order Date: 05/29/25Order Info: 07-1 - CMPOrder Info: 6-3 - TSH Performed By: #### L 500.4050, L501.9520 ####[facility] [address] [place], [address] Creatinine [Mass/Vol] 0.66 mg/dL Low 0.70-1.20 [facility] Comment on above: Order Comment: Order Date: 05/29/25Order Info: 0786-1 - CMPOrder Info: 3016-3 - TSH Performed By: #### L 500.4050, L501.9520 ####[facility] [address] [place], [address] GAP 13 Normal 5-15 [facility] Comment on above: Order Comment: Order Date: 05/29/25Order Info: 785-1 - CMPOrder Info: 3015-3 - TSH Performed By: #### L 500.4050, L501.9520 ####[facility] [address] [place], [address] GFR/1.73 sq M.predicted among non-blacks MDRD (S/P/Bld) [Vol rate/Area] 86 mL/min/{1.73_m2} Normal >60 [facility] Comment on above: Order Comment: Order Date: 05/29/25Order Info: 0786-1 - CMPOrder Info: 6-3 - TSH Result Comment: mL/m in/1.73m2 CKD-EPI Creatinine Equation (2020) Performed By: #### L 500.4050, L501.9520 ####[facility] [address] [place], [address] Globulin (S) [Mass/Vol] 3.4 g/dL Normal 2.2-4.2 [facility] Comment on above: Order Comment: Order Date: 05/29/25Order Info: 0786-1 - CMPOrder Info: 6-3 - TSH Performed By: #### L 500.4050, L501.9520 ####[facility] [address] [place], [address] Glucose [Mass/Vol] 98 mg/dL Normal 70-99 [facility] Comment on above: Order Comment: Order Date: 05/29/25Order Info: 0786- - CMPOrder Info: 3015-3 - TSH Performed By: #### L 500.4050, L501.9520 ####[facility] [address] [place], [address] Potassium [Moles/Vol] 4.4 mmol/L Normal 3.3-5.1 [facility] Comment on above: Order Comment: Order Date: 05/29/25Order Info: 0786-1 - CMPOrder Info: 3 - TSH Performed By: #### L 500.4050, L501.9520 ####[facility] [address] [place], [address] Sodium [Moles/Vol] 135 mmol/L Normal 133-145 [facility] Comment on above: Order Comment: Order Date: 05/29/25Order Info: 07 - CMPOrder Info: 3 - TSH Performed By: #### L 500.4050, L501.9520 ####[facility] [address] [place], [address] T PROT 7.5 g/dL Normal 5.9-8.4 [facility] Comment on above: Order Comment: Order Date: 05/29/25Order Info: 0786- - CMPOrder Info: 3015-3 - TSH Performed By: #### L 500.4050, L501.9520 ####[facility] [address] [place], [address] Urea nitrogen [Mass/Vol] 9 mg/dL Normal 4-19 [facility] Comment on above: Order Comment: Order Date: 05/29/25Order Info: 0786- - CMPOrder Info: 3015-3 - TSH Performed By: #### L 500.4050, L501.9520 ####[facility] [address] [place], [address] Glomerular filtration rate ( GFR) estimation/1.73 sq m using serum, plasma, or whole bOrdered By: Lela Interiano on 05-29-2025 GFR/1.73 sq M.predicted among non-blacks MDRD (S/P/Bld) [Vol rate/Area] 86 mL/min/{1.73_m2} >60 [facility] Comment on above: mL/min/1.73m2 CKD-EP I Creatinine Equation (2020) Laboratory - Chemistry and C hemistry - challengeOrdered By: Lela Interiano on 05-29-2025 AST [Catalytic activity/Vol] 28 U/L <32 [facility] Potassium measurement (mass/ volume)Ordered By: Ossian Jaydon on 05-29-2025 Potassium (Unsp spec) [Mass/Vol] 4.4 mmol/L 3.3-5.1 [facility] Serum creatinine measurement (mass/volume)Ordered By: Lelalita Interiano on 05-29-2025 Creatinine [Mass/Vol] 0.66 mg/dL Low 0.70-1.20 [facility] Serum globulin measurementOr dered By: Lela Interiano on 05-29-2025 Globulin (S) [Mass/Vol] 3.4 g/dL 2.2-4.2 [facility] Serum glucose measurement (m ass/volume)Ordered By: Lela Interiano on 05-29-2025 Glucose [Mass/Vol] 98 mg/dL 70-99 [facility] Serum or plasma alanine thompson otransferase (ALT) measurementOrdered By: Lelalita Interiano 05-29-2025 ALT [Catalytic activity/Vol] 19 U/L <35 [facility] Serum or plasma albumin charlene urement (mass/volume)Ordered By: Lela Interiano on 05-29-2025 Albumin [Mass/Vol] 4.1 g/dL 3.4-4.8 [facility] Serum or plasma albumin/glob ulin mass ratioOrdered By: Lelalita Interiano 05-29-2025 Albumin/Globulin [Mass ratio] 1.2 {ratio} 0.9-2.4 [facility] Serum or plasma alkaline dameon sphatase measurementOrdered By: Lelalita Interiano 05-29-2025 ALP [Catalytic activity/Vol] 70 U/L 35-104 [facility] Serum or plasma calcium charlene urement (mass/volume)Ordered By: Lela Interiano on 05-29-2025 Calcium [Mass/Vol] 9.9 mg/dL 7.6-11.0 [facility] Serum or plasma urea nitroge n measurement (mass/volume)Ordered By: Lela Interiano on 05-29-2025 Urea nitrogen [Mass/Vol] 9 mg/dL 4-19 [facility] Sodium levelOrdered By: Lela Interiano on 05-29-2025 Sodium [Moles/Vol] 135 mmol/L 133-145 [facility] TSH DL <= 0.005 mIU/L QnOrde red By: Lela Interiano on 05-29-2025 TSH Qn 4.410 uIU/mL High 0.300-4.200 [facility] Thyroid Stim Hormone (TSH)on 05-29-2025 TSH 4.410 uIU/mL High 0.300-4.200 [facility] Comment on above: Order Comment: Order Date: 05/29/25Order Info: 0786-1 - CMPOrder Info: 3016-3 - TSH Performed By: #### L 500.4050, L501.9520 ####[facility] [address] [place], [place], [id number] Total proteinOrdered By: Samanta Interiano on 05-29-2025 Protein [Mass/Vol] 7.5 g/dL 5.9-8.4 [facility] Abdomen/Pelvis WITH Contrast on 05-22-2025 Abdomen/Pelvis WITH Contrast Normal [facility] Absolute lymphocyte countOrd ered By: Brian Negrete on 05-22-2025 Lymphocytes Auto (Unsp spec) [#/Vol] 0.71 10*3/uL Low 0.83-4.51 [facility] Absolute neutrophil countOrd ered By: Brian Negrete on 05-22-2025 Neutrophils (Bld) [#/Vol] 4.4 10*3/uL 2.0-7.7 [facility] Anion gap in Serum or Plasma Ordered By: Brian Negrete on 05-22-2025 Anion gap [Moles/Vol] 20 mmol/L High 5-15 [facility] Automated lymphocyte count a s percentage of total leukocytesOrdered By: Brian Negrete on 05-22-2025 Lymphocytes/100 WBC Auto (Unsp spec) 12.3 % Low 19-41 [facility] BUN/creatinine ratioOrdered By: Brian Negrete on 05-22-2025 Urea nitrogen/Creatinine [Mass ratio] 21.8 mg/mg High 10-20 [facility] Basic Metabolic Profile (BMP )on 05-22-2025 BUN/CRE 21.8 RATIO High 10-20 [facility] Comment on above: Performed By: #### L 100.0100, L500.2500 ####[facility] [address] [place], [address] Calcium [Mass/Vol] 9.4 mg/dL Normal 7.6-11.0 [facility] Comment on above: Performed By: #### L 100.0100, L500.2500 ####[facility] [address] [place], [address] Chloride [Moles/Vol] 99 mmol/L Normal 98-108 [facility] Comment on above: Performed By: #### L 100.0100, L500.2500 ####[facility] [address] [place], [address] CO2 [Moles/Vol] 16.2 mmol/L Low 21.0-32.0 [facility] Comment on above: Performed By: #### L 100.0100, L500.2500 ####[facility] [address] [place], [address] Creatinine [Mass/Vol] 0.80 mg/dL Normal 0.70-1.20 [facility] Comment on above: Performed By: #### L 100.0100, L500.2500 ####[facility] [address] [place], [address] ECRCL 46.69 ml/min Low 50-250 [facility] Comment on above: Performed By: #### L 100.0100, L500.2500 ####[facility] [address] [place], [address] GAP 20 High 5-15 [facility] Comment on above: Performed By: #### L 100.0100, L500.2500 ####[facility] [address] [place], [address] GFR/1.73 sq M.predicted among non-blacks MDRD (S/P/Bld) [Vol rate/Area] 73 mL/min/{1.73_m2} Normal >60 [facility] Comment on above: Result Comment: mL/m in/1.73m2 CKD-EPI Creatinine Equation (2020) Performed By: #### L 100.0100, L500.2500 ####[facility] [address] [place], [address] Glucose [Mass/Vol] 62 mg/dL Low 70-99 [facility] Comment on above: Performed By: #### L 100.0100, L500.2500 ####[facility] [address] [place], [address] Potassium [Moles/Vol] 3.7 mmol/L Normal 3.3-5.1 [facility] Comment on above: Performed By: #### L 100.0100, L500.2500 ####[facility] [address] [place], [address] Sodium [Moles/Vol] 135 mmol/L Normal 133-145 [facility] Comment on above: Performed By: #### L 100.0100, L500.2500 ####[facility] [address] [place], [address] Urea nitrogen [Mass/Vol] 17 mg/dL Normal 4-19 [facility] Comment on above: Performed By: #### L 100.0100, L500.2500 ####[facility] [address] [place], [address] Basophil percentageOrdered B y: Brian Negrete on 05-22-2025 Basophils/100 WBC (Bld) 0.5 % 0-1 [facility] CBC W/Diff, Automatedon 05-12 Absolute Lymph 0.71 X10 3/uL Low 0.83-4.51 [facility] Comment on above: Performed By: #### L 100.0100, L500.2500 ####[facility] [address] [place], [address] Absolute Neut 4.4 X10 3/uL Normal 2.0-7.7 [facility] Comment on above: Performed By: #### L 100.0100, L500.2500 ####[facility] [address] [place], [address] Basophils/100 WBC (Bld) 0.5 % Normal 0-1 [facility] Comment on above: Performed By: #### L 100.0100, L500.2500 ####[facility] [address] [place], [address] Eosinophils/100 WBC (Bld) 1.2 % Normal 0-5 [facility] Comment on above: Performed By: #### L 100.0100, L500.2500 ####[facility] [address] [place], [address] Erythrocyte distribution width (RBC) [Ratio] 13.6 % Normal 11.6-14.6 [facility] Comment on above: Performed By: #### L 100.0100, L500.2500 ####[facility] [address] [place], [address] Hematocrit (Bld) [Volume fraction] 32.2 % Low 37-47 [facility] Comment on above: Performed By: #### L 100.0100, L500.2500 ####[facility] [address] [place], [address] Hemoglobin (Bld) [Mass/Vol] 10.4 g/dL Low 12.0-15.0 [facility] Comment on above: Performed By: #### L 100.0100, L500.2500 ####[facility] [address] [place], [address] IG% 0.300 Normal 0.0-0.9 [facility] Comment on above: Result Comment: IG% - Immature Granulocytes (promyelocytes, myelocytes andmetamyelocytes) > 1% indicates that a LEFT SHIFT is Present. Performed By: #### L 100.0100, L500.2500 ####[facility] [address] [place], [address] Lymphocytes/100 WBC (Bld) 12.3 % Low 19-41 [facility] Comment on above: Performed By: #### L 100.0100, L500.2500 ####[facility] [address] [place], [address] MCH (RBC) [Entitic mass] 28.1 pg Normal 27.0-32.0 [facility] Comment on above: Performed By: #### L 100.0100, L500.2500 ####[facility] [address] [place], [address] MCHC (RBC) [Mass/Vol] 32.3 g/dL Normal 32-36 [facility] Comment on above: Performed By: #### L 100.0100, L500.2500 ####[facility] [address] [place], [address] MCV (RBC) [Entitic vol] 87.0 fL Normal 81-99 [facility] Comment on above: Performed By: #### L 100.0100, L500.2500 ####[facility] [address] [place], [address] Monocytes/100 WBC (Bld) 10.2 % High 0-10 [facility] Comment on above: Performed By: #### L 100.0100, L500.2500 ####[facility] [address] [place], [address] Neutrophils/100 WBC (Bld) 75.5 % High 47-70 [facility] Comment on above: Performed By: #### L 100.0100, L500.2500 ####[facility] [address] [place], [address] Nucleated RBC (Bld) [#/Vol] 0 10*3/uL Normal 0-5 [facility] Comment on above: Performed By: #### L 100.0100, L500.2500 ####[facility] [address] [place], [address] Platelet mean volume (Bld) [Entitic vol] 11.2 fL Normal 6.2-12.0 [facility] Comment on above: Performed By: #### L 100.0100, L500.2500 ####[facility] [address] [place], [address] Platelets (Bld) [#/Vol] 323 10*3/uL Normal 150-450 [facility] Comment on above: Performed By: #### L 100.0100, L500.2500 ####[facility] [address] [place], [address] RBC (Bld) [#/Vol] 3.70 10*6/uL Low 4.2-5.4 [facility] Comment on above: Performed By: #### L 100.0100, L500.2500 ####[facility] [address] [place], [address] RDW SD 43.3 fl Normal 35.1-43.9 [facility] Comment on above: Performed By: #### L 100.0100, L500.2500 ####[facility] [address] [place], [place], [address] WBC (Bld) [#/Vol] 5.8 10*3/uL Normal 4.4-11.0 [facility] Comment on above: Performed By: #### L 100.0100, L500.2500 ####[facility] [address] [place], [place], [address] Carbon dioxide, total [Moles /volume] in Central venous bloodOrdered By: Brian Negrete on 05-22-2025 CO2 [Moles/Vol] 16.2 mmol/L Low 21.0-32.0 [facility] Chloride assayOrdered By: Brock Negrete on 05-22-2025 Chloride [Moles/Vol] 99 mmol/L 98-108 [facility] Discharge Instructionon 05-12 Discharge Instruction Normal [facility] Electrocardiogram reportOrde red By: Ashley Dennison on 05-22-2025 EKG study [facility] [address] [place] [address] 12 Lead EKG 05/18/25 2146 MR#: [id number] Acct: [id number] Name: LUZ CLANCY Rep #:[id number] : 1940 85 From: Ashley Dennison MD Attending Dr: Dr. Joseph Lindsey MD Status: ADM IN Ordering Dr: Jeffery Mcclain ate: 05/18/25 Location: U Sex: F C Admitted: 05/19/25 Test Reason [...] block Abnormal ECG Confirmed by ASHLEY DENNISON ([id number]), assistant editor PABLO MOSS ([id number]) on 05/22/2025 8:07:05 AM Referred By: Confirmed By: ASHLEY DENNISON 05/22/25 0807 Date _ Ashley Dennison MD CC: MARILEE Interiano; Dr. Jeffery Mcclain DO; Dr. Joseph Lindsey MD ~ Signed [facility] Other Phone: Eosinophil percentageOrdered By: Brian Negrete on 05-22-2025 Eosinophils/100 WBC (Bld) 1.2 % 0-5 [facility] Erythrocyte distribution wid th ratioOrdered By: Brian Negrete on 05-22-2025 Erythrocyte distribution width (RBC) [Ratio] 13.6 % 11.6-14.6 [facility] Erythrocyte distribution wid th standard deviationOrdered By: Brian Ngerete on 05-22-2025 Erythrocyte distribution width (RBC) [Ratio] 43.3 fl 35.1-43.9 [facility] Glomerular filtration rate ( GFR) estimation/1.73 sq m using serum, plasma, or whole bOrdered By: Brian Negrete on 05-22-2025 GFR/1.73 sq M.predicted among non-blacks MDRD (S/P/Bld) [Vol rate/Area] 73 mL/min/{1.73_m2} >60 [facility] Comment on above: mL/min/1.73m2 CKD-EP I Creatinine Equation (2020) Hematocrit Auto (Bld) [Volum e fraction]Ordered By: Brian Negrete on 05-22-2025 Hematocrit (Bld) [Volume fraction] 32.2 % Low 37-47 [facility] Hemoglobin measurementOrdere d By: Brian Negrete on 05-22-2025 Hemoglobin (Bld) [Mass/Vol] 10.4 g/dL Low 12.0-15.0 [facility] Immature granulocytes/100 WB C Auto (Bld)Ordered By: Brian Negrete on 05-22-2025 Immature granulocytes/100 WBC (Bld) 0.300 % 0.0-0.9 [facility] Comment on above: IG% - Immature Granu locytes (promyelocytes, myelocytes and metamyelocytes) > 1% indicates that a LEFT SHIFT is Present. MCV (mean corpuscular volume ) determinationOrdered By: Brian Negrete on 05-22-2025 MCV (RBC) [Entitic vol] 87.0 fL 81-99 [facility] Mean corpuscular hemoglobin (MCH) determinationOrdered By: Brian Negrete on 05-22-2025 MCH (RBC) [Entitic mass] 28.1 pg 27.0-32.0 [facility] Mean corpuscular hemoglobin concentration (MCHC) determinationOrdered By: Brian Negrete on 05-22-2025 MCHC (RBC) [Mass/Vol] 32.3 g/dL 32-36 [facility] Mean platelet volume determi nationOrdered By: Brian Negrete on 05-22-2025 Platelet mean volume (Bld) [Entitic vol] 11.2 fL 6.2-12.0 [facility] Monocyte percentageOrdered B y: Brian Negrete on 05-22-2025 Monocytes/100 WBC (Bld) 10.2 % High 0-10 [facility] Neutrophil percentageOrdered By: Brian Negrete on 05-22-2025 Neutrophils/100 WBC (Bld) 75.5 % High 47-70 [facility] Nucleated red blood cell per centageOrdered By: Brian Negrete on 05-22-2025 Nucleated RBC/100 WBC (Bld) [Ratio] 0 % 0-5 [facility] Platelet countOrdered By: Brock Negrete on 05-22-2025 Platelets (Bld) [#/Vol] 323 10*3/uL 150-450 [facility] Potassium measurement (mass/ volume)Ordered By: Brian Negrete on 05-22-2025 Potassium (Unsp spec) [Mass/Vol] 3.7 mmol/L 3.3-5.1 [facility] RBC Auto (Bld) [#/Vol]Ordere d By: Brian Negrete on 05-22-2025 RBC (Bld) [#/Vol] 3.70 10*6/uL Low 4.2-5.4 [facility] Serum creatinine measurement (mass/volume)Ordered By: Brian Negrete on 05-22-2025 Creatinine [Mass/Vol] 0.80 mg/dL 0.70-1.20 [facility] Serum glucose measurement (m ass/volume)Ordered By: Brian Negrete on 05-22-2025 Glucose [Mass/Vol] 62 mg/dL Low 70-99 [facility] Serum or plasma calcium charlene urement (mass/volume)Ordered By: Brian Negrete on 05-22-2025 Calcium [Mass/Vol] 9.4 mg/dL 7.6-11.0 [facility] Serum or plasma urea nitroge n measurement (mass/volume)Ordered By: Brian Negrete on 05-22-2025 Urea nitrogen [Mass/Vol] 17 mg/dL 4-19 [facility] Sodium levelOrdered By: Paul Negrete on 05-22-2025 Sodium [Moles/Vol] 135 mmol/L 133-145 [facility] White blood cell (WBC) count Ordered By: Brian Negrete on 05-22-2025 WBC (Bld) [#/Vol] 5.8 10*3/uL 4.4-11.0 [facility] [employer] Inc Decub and/or Erecton 05-21-2025 Abd Inc Decub and/or Erect Normal [facility] Basic Metabolic Profile (BMP )on 05-21-2025 BUN/CRE 17.5 RATIO Normal 10-20 [facility] Comment on above: Performed By: #### L 500.2500, L100.0100 ####[facility] [address] [place], [address] Calcium [Mass/Vol] 9.1 mg/dL Normal 7.6-11.0 [facility] Comment on above: Performed By: #### L 500.2500, L100.0100 ####[facility] [address] [place], [address] Chloride [Moles/Vol] 100 mmol/L Normal 98-108 [facility] Comment on above: Performed By: #### L 500.2500, L100.0100 ####[facility] [address] [place], [address] CO2 [Moles/Vol] 18.9 mmol/L Low 21.0-32.0 [facility] Comment on above: Performed By: #### L 500.2500, L100.0100 ####[facility] [address] [place], [address] Creatinine [Mass/Vol] 0.73 mg/dL Normal 0.70-1.20 [facility] Comment on above: Performed By: #### L 500.2500, L100.0100 ####[facility] [address] [place], [address] ECRCL 46.53 ml/min Low 50-250 [facility] Comment on above: Performed By: #### L 500.2500, L100.0100 ####[facility] [address] [place], [address] GAP 15 Normal 5-15 [facility] Comment on above: Performed By: #### L 500.2500, L100.0100 ####[facility] [address] [place], [address] GFR/1.73 sq M.predicted among non-blacks MDRD (S/P/Bld) [Vol rate/Area] 81 mL/min/{1.73_m2} Normal >60 [facility] Comment on above: Result Comment: mL/m in/1.73m2 CKD-EPI Creatinine Equation (2020) Performed By: #### L 500.2500, L100.0100 ####[facility] [address] [place], [address] Glucose [Mass/Vol] 91 mg/dL Normal 70-99 [facility] Comment on above: Performed By: #### L 500.2500, L100.0100 ####[facility] [address] [place], [address] Potassium [Moles/Vol] 3.1 mmol/L Low 3.3-5.1 [facility] Comment on above: Performed By: #### L 500.2500, L100.0100 ####[facility] [address] [place], [address] Sodium [Moles/Vol] 134 mmol/L Normal 133-145 [facility] Comment on above: Performed By: #### L 500.2500, L100.0100 ####[facility] [address] [place], [address] Urea nitrogen [Mass/Vol] 13 mg/dL Normal 4-19 [facility] Comment on above: Performed By: #### L 500.2500, L100.0100 ####[facility] [address] [place], [address] CBC W/Diff, Automatedon 08-1 0-2025 Absolute Lymph 0.74 X10 3/uL Low 0.83-4.51 [facility] Comment on above: Performed By: #### L 500.2500, L100.0100 ####[facility] [address] [place], [address] Absolute Neut 3.8 X10 3/uL Normal 2.0-7.7 [facility] Comment on above: Performed By: #### L 500.2500, L100.0100 ####[facility] [address] [place], [address] Basophils/100 WBC (Bld) 0.2 % Normal 0-1 [facility] Comment on above: Performed By: #### L 500.2500, L100.0100 ####[facility] [facility] [address] [place], [address] Eosinophils/100 WBC (Bld) 1.1 % Normal 0-5 [facility] Comment on above: Performed By: #### L 500.2500, L100.0100 ####[facility] [address] [place], [address] Erythrocyte distribution width (RBC) [Ratio] 13.6 % Normal 11.6-14.6 [facility] Comment on above: Performed By: #### L 500.2500, L100.0100 ####[facility] [address] [place], [address] Hematocrit (Bld) [Volume fraction] 30.9 % Low 37-47 [facility] Comment on above: Performed By: #### L 500.2500, L100.0100 ####[facility] [address] [place], [address] Hemoglobin (Bld) [Mass/Vol] 10.1 g/dL Low 12.0-15.0 [facility] Comment on above: Performed By: #### L 500.2500, L100.0100 ####[facility] [address] [place], [address] IG% 0.400 Normal 0.0-0.9 [facility] Comment on above: Result Comment: IG% - Immature Granulocytes (promyelocytes, myelocytes andmetamyelocytes) > 1% indicates that a LEFT SHIFT is Present. Performed By: #### L 500.2500, L100.0100 ####[facility] [address] [place], [address] Lymphocytes/100 WBC (Bld) 13.8 % Low 19-41 [facility] Comment on above: Performed By: #### L 500.2500, L100.0100 ####[facility] [address] [place], [address] MCH (RBC) [Entitic mass] 28.2 pg Normal 27.0-32.0 [facility] Comment on above: Performed By: #### L 500.2500, L100.0100 ####[facility] [address] [place], [address] MCHC (RBC) [Mass/Vol] 32.7 g/dL Normal 32-36 [facility] Comment on above: Performed By: #### L 500.2500, L100.0100 ####[facility] [address] [place], [address] MCV (RBC) [Entitic vol] 86.3 fL Normal 81-99 [facility] Comment on above: Performed By: #### L 500.2500, L100.0100 ####[facility] [address] [place], [address] Monocytes/100 WBC (Bld) 13.2 % High 0-10 [facility] Comment on above: Performed By: #### L 500.2500, L100.0100 ####[facility] [address] [place], [address] Neutrophils/100 WBC (Bld) 71.3 % High 47-70 [facility] Comment on above: Performed By: #### L 500.2500, L100.0100 ####[facility] [address] [place], [address] Nucleated RBC (Bld) [#/Vol] 0 10*3/uL Normal 0-5 [facility] Comment on above: Performed By: #### L 500.2500, L100.0100 ####[facility] [address] [place], [address] Platelet mean volume (Bld) [Entitic vol] 11.5 fL Normal 6.2-12.0 [facility] Comment on above: Performed By: #### L 500.2500, L100.0100 ####[facility] [address] [place], [address] Platelets (Bld) [#/Vol] 305 10*3/uL Normal 150-450 [facility] Comment on above: Performed By: #### L 500.2500, L100.0100 ####[facility] [address] [place], [address] RBC (Bld) [#/Vol] 3.58 10*6/uL Low 4.2-5.4 [facility] Comment on above: Performed By: #### L 500.2500, L100.0100 ####[facility] [address] [place], [address] RDW SD 42.6 fl Normal 35.1-43.9 [facility] Comment on above: Performed By: #### L 500.2500, L100.0100 ####[facility] [address] [place], [address] WBC (Bld) [#/Vol] 5.4 10*3/uL Normal 4.4-11.0 [facility] Comment on above: Performed By: #### L 500.2500, L100.0100 ####[facility] [address] [place], [address] Magnesiumon 05-21-2025 Magnesium [Mass/Vol] 1.9 mg/dL Normal 1.5-2.2 [facility] Comment on above: Performed By: #### L 501.5200 ####[facility] [address] [place], [address] Magnesium measurement (mass/ volume)Ordered By: Geovanna Nino on 05-21-2025 Magnesium (Unsp spec) [Mass/Vol] 1.9 mg/dL 1.5-2.2 [facility] Abdomen Single View (Portabl e)on 05-20-2025 Abdomen Single View (Portable) Normal [facility] Basic Metabolic Profile (BMP )on 05-20-2025 BUN/CRE 21.5 RATIO High 10-20 [facility] Comment on above: Performed By: #### L 100.0100, L501.5200, L500.2500, L501.2300 ####[facility] [address] [place], [address] Calcium [Mass/Vol] 8.8 mg/dL Normal 7.6-11.0 [facility] Comment on above: Performed By: #### L 100.0100, L501.5200, L500.2500, L501.2300 ####[facility] [address] [place], [address] Chloride [Moles/Vol] 103 mmol/L Normal 98-108 [facility] Comment on above: Performed By: #### L 100.0100, L501.5200, L500.2500, L501.2300 ####[facility] [address] [place], [address] CO2 [Moles/Vol] 17.7 mmol/L Low 21.0-32.0 [facility] Comment on above: Performed By: #### L 100.0100, L501.5200, L500.2500, L501.2300 ####[facility] [address] [place], [address] Creatinine [Mass/Vol] 0.79 mg/dL Normal 0.70-1.20 [facility] Comment on above: Performed By: #### L 100.0100, L501.5200, L500.2500, L501.2300 ####[facility] [address] [place], [address] ECRCL 45.86 ml/min Low 50-250 [facility] Comment on above: Performed By: #### L 100.0100, L501.5200, L500.2500, L501.2300 ####[facility] [address] [place], [address] GAP 14 Normal 5-15 [facility] Comment on above: Performed By: #### L 100.0100, L501.5200, L500.2500, L501.2300 ####[facility] [address] [place], [address] GFR/1.73 sq M.predicted among non-blacks MDRD (S/P/Bld) [Vol rate/Area] 73 mL/min/{1.73_m2} Normal >60 [facility] Comment on above: Result Comment: mL/m in/1.73m2 CKD-EPI Creatinine Equation (2020) Performed By: #### L 100.0100, L501.5200, L500.2500, L501.2300 ####[facility] [address] [place], [address] Glucose [Mass/Vol] 77 mg/dL Normal 70-99 [facility] Comment on above: Performed By: #### L 100.0100, L501.5200, L500.2500, L501.2300 ####[facility] [address] [place], [address] Potassium [Moles/Vol] 3.5 mmol/L Normal 3.3-5.1 [facility] Comment on above: Performed By: #### L 100.0100, L501.5200, L500.2500, L501.2300 ####[facility] [address] [place], [address] Sodium [Moles/Vol] 135 mmol/L Normal 133-145 [facility] Comment on above: Performed By: #### L 100.0100, L501.5200, L500.2500, L501.2300 ####[facility] [address] [place], [address] Urea nitrogen [Mass/Vol] 17 mg/dL Normal 4-19 [facility] Comment on above: Performed By: #### L 100.0100, L501.5200, L500.2500, L501.2300 ####[facility] [address] [place], [address] CBC W/Diff, Automatedon 08-0 9-2024 Absolute Lymph 0.62 X10 3/uL Low 0.83-4.51 [facility] Comment on above: Performed By: #### L 100.0100, L501.5200, L500.2500, L501.2300 ####[facility] [address] [place], [address] Absolute Neut 3.0 X10 3/uL Normal 2.0-7.7 [facility] Comment on above: Performed By: #### L 100.0100, L501.5200, L500.2500, L501.2300 ####[facility] [address] [place], [address] Basophils/100 WBC (Bld) 0.7 % Normal 0-1 [facility] Comment on above: Performed By: #### L 100.0100, L501.5200, L500.2500, L501.2300 ####[facility] [address] [place], [address] Eosinophils/100 WBC (Bld) 2.0 % Normal 0-5 [facility] Comment on above: Performed By: #### L 100.0100, L501.5200, L500.2500, L501.2300 ####[facility] [address] [place], [address] Erythrocyte distribution width (RBC) [Ratio] 14.0 % Normal 11.6-14.6 [facility] Comment on above: Performed By: #### L 100.0100, L501.5200, L500.2500, L501.2300 ####[facility] [address] [place], [address] Hematocrit (Bld) [Volume fraction] 29.6 % Low 37-47 [facility] Comment on above: Performed By: #### L 100.0100, L501.5200, L500.2500, L501.2300 ####[facility] [address] [place], [address] Hemoglobin (Bld) [Mass/Vol] 9.4 g/dL Low 12.0-15.0 [facility] Comment on above: Performed By: #### L 100.0100, L501.5200, L500.2500, L501.2300 ####[facility] [address] [place], [address] IG% 0.200 Normal 0.0-0.9 [facility] Comment on above: Result Comment: IG% - Immature Granulocytes (promyelocytes, myelocytes andmetamyelocytes) > 1% indicates that a LEFT SHIFT is Present. Performed By: #### L 100.0100, L501.5200, L500.2500, L501.2300 ####[facility] [address] [place], [address] Lymphocytes/100 WBC (Bld) 13.8 % Low 19-41 [facility] Comment on above: Performed By: #### L 100.0100, L501.5200, L500.2500, L501.2300 ####[facility] [address] [place], [address] MCH (RBC) [Entitic mass] 28.0 pg Normal 27.0-32.0 [facility] Comment on above: Performed By: #### L 100.0100, L501.5200, L500.2500, L501.2300 ####[facility] [address] [place], [address] MCHC (RBC) [Mass/Vol] 31.8 g/dL Low 32-36 [facility] Comment on above: Performed By: #### L 100.0100, L501.5200, L500.2500, L501.2300 ####[facility] [address] [place], [address] MCV (RBC) [Entitic vol] 88.1 fL Normal 81-99 [facility] Comment on above: Performed By: #### L 100.0100, L501.5200, L500.2500, L501.2300 ####[facility] [address] [place], [address] Monocytes/100 WBC (Bld) 16.2 % High 0-10 [facility] Comment on above: Performed By: #### L 100.0100, L501.5200, L500.2500, L501.2300 ####[facility] [address] [place], [address] Neutrophils/100 WBC (Bld) 67.1 % Normal 47-70 [facility] Comment on above: Performed By: #### L 100.0100, L501.5200, L500.2500, L501.2300 ####[facility] [address] [place], [address] Nucleated RBC (Bld) [#/Vol] 0 10*3/uL Normal 0-5 [facility] Comment on above: Performed By: #### L 100.0100, L501.5200, L500.2500, L501.2300 ####[facility] [address] [place], [address] Platelet mean volume (Bld) [Entitic vol] 11.0 fL Normal 6.2-12.0 [facility] Comment on above: Performed By: #### L 100.0100, L501.5200, L500.2500, L501.2300 ####[facility] [address] [place], [address] Platelets (Bld) [#/Vol] 300 10*3/uL Normal 150-450 [facility] Comment on above: Performed By: #### L 100.0100, L501.5200, L500.2500, L501.2300 ####[facility] [address] [place], [address] RBC (Bld) [#/Vol] 3.36 10*6/uL Low 4.2-5.4 [facility] Comment on above: Performed By: #### L 100.0100, L501.5200, L500.2500, L501.2300 ####[facility] [address] [place], [address] RDW SD 45.1 fl High 35.1-43.9 [facility] Comment on above: Performed By: #### L 100.0100, L501.5200, L500.2500, L501.2300 ####[facility] [address] [place], [address] WBC (Bld) [#/Vol] 4.5 10*3/uL Normal 4.4-11.0 [facility] Comment on above: Performed By: #### L 100.0100, L501.5200, L500.2500, L501.2300 ####[facility] [address] [place], [address] Magnesiumon 05-20-2025 Magnesium [Mass/Vol] 2.0 mg/dL Normal 1.5-2.2 [facility] Comment on above: Performed By: #### L 100.0100, L501.5200, L500.2500, L501.2300 ####[facility] [address] [place], [address] Phosphoruson 05-20-2025 Phosphate [Mass/Vol] 3.0 mg/dL Normal 2.7-4.5 [facility] Comment on above: Performed By: #### L 100.0100, L501.5200, L500.2500, L501.2300 ####[facility] [address] [place], [address] Abdomen Single View (Portabl e)on 05-19-2025 Abdomen Single View (Portable) Normal [facility] Absolute lymphocyte countOrd ered By: Najma Cates on 05-19-2025 Lymphocytes Auto (Unsp spec) [#/Vol] 0.42 10*3/uL Low 0.83-4.51 [facility] Absolute neutrophil countOrd ered By: Darryn on 05-19-2025 Neutrophils (Bld) [#/Vol] 5.0 10*3/uL 2.0-7.7 [facility] Anion gap in Serum or Plasma Ordered By: Darryn on 05-19-2025 Anion gap [Moles/Vol] 12 mmol/L 5-15 [facility] Automated lymphocyte count a s percentage of total leukocytesOrdered By: Darryn on 05-19-2025 Lymphocytes/100 WBC Auto (Unsp spec) 6.6 % Low 19-41 [facility] BUN/creatinine ratioOrdered By: Darryn on 05-19-2025 Urea nitrogen/Creatinine [Mass ratio] 22.8 mg/mg High 10-20 [facility] Basophil percentageOrdered B y: Darryn on 05-19-2025 Basophils/100 WBC (Bld) 0.5 % 0-1 [facility] Bilirubin, totalOrdered By: Najma Darryn on 05-19-2025 Bilirubin [Mass/Vol] 0.53 mg/dL 0.00-1.30 [facility] CBC W/Diff, Automatedon Absolute Lymph 0.42 X10 3/uL Low 0.83-4.51 [facility] Comment on above: Performed By: #### L 100.0100, L500.4050 ####[facility] [address] [place], [address] Absolute Neut 5.0 X10 3/uL Normal 2.0-7.7 [facility] Comment on above: Performed By: #### L 100.0100, L500.4050 ####[facility] [address] [place], [address] Basophils/100 WBC (Bld) 0.5 % Normal 0-1 [facility] Comment on above: Performed By: #### L 100.0100, L500.4050 ####[facility] [address] [place], [address] Eosinophils/100 WBC (Bld) 0.6 % Normal 0-5 [facility] Comment on above: Performed By: #### L 100.0100, L500.4050 ####[facility] [address] [place], [address] Erythrocyte distribution width (RBC) [Ratio] 13.7 % Normal 11.6-14.6 [facility] Comment on above: Performed By: #### L 100.0100, L500.4050 ####[facility] [address] [place], [address] Hematocrit (Bld) [Volume fraction] 32.1 % Low 37-47 [facility] Comment on above: Performed By: #### L 100.0100, L500.4050 ####[facility] [address] [place], [address] Hemoglobin (Bld) [Mass/Vol] 10.3 g/dL Low 12.0-15.0 [facility] Comment on above: Performed By: #### L 100.0100, L500.4050 ####[facility] [address] [place], [address] IG% 0.200 Normal 0.0-0.9 [facility] Comment on above: Result Comment: IG% - Immature Granulocytes (promyelocytes, myelocytes andmetamyelocytes) > 1% indicates that a LEFT SHIFT is Present. Performed By: #### L 100.0100, L500.4050 ####[facility] [address] [place], [address] Lymphocytes/100 WBC (Bld) 6.6 % Low 19-41 [facility] Comment on above: Performed By: #### L 100.0100, L500.4050 ####[facility] [address] [place], [address] MCH (RBC) [Entitic mass] 28.0 pg Normal 27.0-32.0 [facility] Comment on above: Performed By: #### L 100.0100, L500.4050 ####[facility] [address] [place], [address] MCHC (RBC) [Mass/Vol] 32.1 g/dL Normal 32-36 [facility] Comment on above: Performed By: #### L 100.0100, L500.4050 ####[facility] [address] [place], [address] MCV (RBC) [Entitic vol] 87.2 fL Normal 81-99 [facility] Comment on above: Performed By: #### L 100.0100, L500.4050 ####[facility] [address] [place], [address] Monocytes/100 WBC (Bld) 12.8 % High 0-10 [facility] Comment on above: Performed By: #### L 100.0100, L500.4050 ####[facility] [address] [place], [address] Neutrophils/100 WBC (Bld) 79.3 % High 47-70 [facility] Comment on above: Performed By: #### L 100.0100, L500.4050 ####[facility] [address] [place], [address] Nucleated RBC (Bld) [#/Vol] 0 10*3/uL Normal 0-5 [facility] Comment on above: Performed By: #### L 100.0100, L500.4050 ####[facility] [address] [place], [address] Platelet mean volume (Bld) [Entitic vol] 11.7 fL Normal 6.2-12.0 [facility] Comment on above: Performed By: #### L 100.0100, L500.4050 ####[facility] [address] [place], [address] Platelets (Bld) [#/Vol] 334 10*3/uL Normal 150-450 [facility] Comment on above: Performed By: #### L 100.0100, L500.4050 ####[facility] [address] [place], [address] RBC (Bld) [#/Vol] 3.68 10*6/uL Low 4.2-5.4 [facility] Comment on above: Performed By: #### L 100.0100, L500.4050 ####[facility] [address] [place], [address] RDW SD 43.3 fl Normal 35.1-43.9 [facility] Comment on above: Performed By: #### L 100.0100, L500.4050 ####[facility] [address] [place], [address] WBC (Bld) [#/Vol] 6.3 10*3/uL Normal 4.4-11.0 [facility] Comment on above: Performed By: #### L 100.0100, L500.4050 ####[facility] [address] [place], [address] Carbon dioxide, total [Moles /volume] in Central venous bloodOrdered By: Najma Cates on 05-19-2025 CO2 [Moles/Vol] 20.0 mmol/L Low 21.0-32.0 [facility] Chloride assayOrdered By: Lucia Cates on 05-19-2025 Chloride [Moles/Vol] 101 mmol/L 98-108 [facility] Comprehensive Metabolic Prof ilon 05-19-2025 Albumin [Mass/Vol] 3.6 g/dL Normal 3.4-4.8 [facility] Comment on above: Performed By: #### L 100.0100, L500.4050 ####[facility] [address] [place], [address] Albumin/Globulin [Mass ratio] 1.2 {ratio} Normal 0.9-2.4 [facility] Comment on above: Performed By: #### L 100.0100, L500.4050 ####[facility] [address] [place], [address] ALK PHOS 74 U/L Normal 35-104 [facility] Comment on above: Performed By: #### L 100.0100, L500.4050 ####[facility] [address] [place], [address] ALT [Catalytic activity/Vol] 10 U/L Normal <=34 [facility] Comment on above: Performed By: #### L 100.0100, L500.4050 ####[facility] [address] [place], [address] AST [Catalytic activity/Vol] 26 U/L Normal <=31 [facility] Comment on above: Performed By: #### L 100.0100, L500.4050 ####[facility] [address] [place], [address] Bilirubin [Mass/Vol] 0.53 mg/dL Normal 0.00-1.30 [facility] Comment on above: Performed By: #### L 100.0100, L500.4050 ####[facility] [address] [place], [address] BUN/CRE 22.8 RATIO High 10-20 [facility] Comment on above: Performed By: #### L 100.0100, L500.4050 ####[facility] [address] [place], [address] Calcium [Mass/Vol] 8.9 mg/dL Normal 7.6-11.0 [facility] Comment on above: Performed By: #### L 100.0100, L500.4050 ####[facility] [address] [place], [address] Chloride [Moles/Vol] 101 mmol/L Normal 98-108 [facility] Comment on above: Performed By: #### L 100.0100, L500.4050 ####[facility] [address] [place], [address] CO2 [Moles/Vol] 20.0 mmol/L Low 21.0-32.0 [facility] Comment on above: Performed By: #### L 100.0100, L500.4050 ####[facility] [address] [place], [address] Creatinine [Mass/Vol] 0.60 mg/dL Low 0.70-1.20 [facility] Comment on above: Performed By: #### L 100.0100, L500.4050 ####[facility] [address] [place], [address] ECRCL 47.10 ml/min Low 50-250 [facility] Comment on above: Performed By: #### L 100.0100, L500.4050 ####[facility] [address] [place], [address] GAP 12 Normal 5-15 [facility] Comment on above: Performed By: #### L 100.0100, L500.4050 ####[facility] [address] [place], [address] GFR/1.73 sq M.predicted among non-blacks MDRD (S/P/Bld) [Vol rate/Area] 88 mL/min/{1.73_m2} Normal >60 [facility] Comment on above: Result Comment: mL/m in/1.73m2 CKD-EPI Creatinine Equation (2020) Performed By: #### L 100.0100, L500.4050 ####[facility] [address] [place], [address] Globulin (S) [Mass/Vol] 3.0 g/dL Normal 2.2-4.2 [facility] Comment on above: Performed By: #### L 100.0100, L500.4050 ####[facility] [address] [place], [address] Glucose [Mass/Vol] 115 mg/dL High 70-99 [facility] Comment on above: Performed By: #### L 100.0100, L500.4050 ####[facility] [address] [place], [address] Potassium [Moles/Vol] 3.8 mmol/L Normal 3.3-5.1 [facility] Comment on above: Performed By: #### L 100.0100, L500.4050 ####[facility] [address] [place], [address] Sodium [Moles/Vol] 133 mmol/L Normal 133-145 [facility] Comment on above: Performed By: #### L 100.0100, L500.4050 ####[facility] [address] [place], [address] T PROT 6.6 g/dL Normal 5.9-8.4 [facility] Comment on above: Performed By: #### L 100.0100, L500.4050 ####[facility] [address] [place], [address] Urea nitrogen [Mass/Vol] 14 mg/dL Normal 4-19 [facility] Comment on above: Performed By: #### L 100.0100, L500.4050 ####[facility] [address] [place], [address] Consultation - Surgicalon Consultation - Surgical Normal [facility] Eosinophil percentageOrdered By: Najma Cates on 05-19-2025 Eosinophils/100 WBC (Bld) 0.6 % 0-5 [facility] Erythrocyte distribution wid th ratioOrdered By: [facility] Darryn on 05-19-2025 Erythrocyte distribution width (RBC) [Ratio] 13.7 % 11.6-14.6 [facility] Erythrocyte distribution wid th standard deviationOrdered By: [facility] Darryn on 05-19-2025 Erythrocyte distribution width (RBC) [Ratio] 43.3 fl 35.1-43.9 [facility] Glomerular filtration rate ( GFR) estimation/1.73 sq m using serum, plasma, or whole bOrdered By: Najma Cates on 05-19-2025 GFR/1.73 sq M.predicted among non-blacks MDRD (S/P/Bld) [Vol rate/Area] 88 mL/min/{1.73_m2} >60 [facility] Comment on above: mL/min/1.73m2 CKD-EP I Creatinine Equation (2020) Hematocrit Auto (Bld) [Volum e fraction]Ordered By: Najma Darryn on 05-19-2025 Hematocrit (Bld) [Volume fraction] 32.1 % Low 37-47 [facility] Hemoglobin A1con 05-19-2025 HbA1c (Bld) [Mass fraction] 6.1 % High <=5.6 [facility] Comment on above: Result Comment: Norm al < 5.7 % Prediabetic 5.7 - 6.4 % Diabetic >or= 6.5 % Please note range changes. Performed By: #### L 501.9985 ####[facility] [address] [place], [place], [id number] Hemoglobin A1c percentageOrd ered By: Najma Cates on 05-19-2025 HbA1c (Bld) [Mass fraction] 6.1 % High <5.7 [facility] Comment on above: Normal < 5.7 % Predi abetic 5.7 - 6.4 % Diabetic >or= 6.5 % Please note range changes. Hemoglobin measurementOrdere d By: Najma Cates on 05-19-2025 Hemoglobin (Bld) [Mass/Vol] 10.3 g/dL Low 12.0-15.0 [facility] Immature granulocytes/100 WB C Auto (Bld)Ordered By: Najma Cates on 05-19-2025 Immature granulocytes/100 WBC (Bld) 0.200 % 0.0-0.9 [facility] Comment on above: IG% - Immature Granu locytes (promyelocytes, myelocytes and metamyelocytes) > 1% indicates that a LEFT SHIFT is Present. Laboratory - Chemistry and C hemistry - challengeOrdered By: Najma Cates on 05-19-2025 AST [Catalytic activity/Vol] 26 U/L <32 [facility] MCV (mean corpuscular volume ) determinationOrdered By: Najma Darryn on 05-19-2025 MCV (RBC) [Entitic vol] 87.2 fL 81-99 [facility] Mean corpuscular hemoglobin (MCH) determinationOrdered By: Darryn 05-19-2025 MCH (RBC) [Entitic mass] 28.0 pg 27.0-32.0 [facility] Mean corpuscular hemoglobin concentration (MCHC) determinationOrdered By: Darryn 05-19-2025 MCHC (RBC) [Mass/Vol] 32.1 g/dL 32-36 [facility] Mean platelet volume determi nationOrdered By: Najma Darryn on 05-19-2025 Platelet mean volume (Bld) [Entitic vol] 11.7 fL 6.2-12.0 [facility] Monocyte percentageOrdered B y: Najma Darryn on 05-19-2025 Monocytes/100 WBC (Bld) 12.8 % High 0-10 [facility] Neutrophil percentageOrdered By: Darryn 05-19-2025 Neutrophils/100 WBC (Bld) 79.3 % High 47-70 [facility] Nucleated red blood cell per centageOrdered By: Najma Darryn on 05-19-2025 Nucleated RBC/100 WBC (Bld) [Ratio] 0 % 0-5 [facility] Platelet countOrdered By: Lucia raisaki Cates on 05-19-2025 Platelets (Bld) [#/Vol] 334 10*3/uL 150-450 [facility] Potassium measurement (mass/ volume)Ordered By: Najma Darryn 05-19-2025 Potassium (Unsp spec) [Mass/Vol] 3.8 mmol/L 3.3-5.1 [facility] RBC Auto (Bld) [#/Vol]Ordere d By: Najma Cates on 05-19-2025 RBC (Bld) [#/Vol] 3.68 10*6/uL Low 4.2-5.4 [facility] Serum creatinine measurement (mass/volume)Ordered By: Najma Cates on 05-19-2025 Creatinine [Mass/Vol] 0.60 mg/dL Low 0.70-1.20 [facility] Serum globulin measurementOr dered By: Najma Cates on 05-19-2025 Globulin (S) [Mass/Vol] 3.0 g/dL 2.2-4.2 [facility] Serum glucose measurement (m ass/volume)Ordered By: Najma aCtes on 05-19-2025 Glucose [Mass/Vol] 115 mg/dL High 70-99 [facility] Serum or plasma alanine thompson otransferase (ALT) measurementOrdered By: Najma Cates on 05-19-2025 ALT [Catalytic activity/Vol] 10 U/L <35 [facility] Serum or plasma albumin charlene urement (mass/volume)Ordered By: Najma Cates on 05-19-2025 Albumin [Mass/Vol] 3.6 g/dL 3.4-4.8 [facility] Serum or plasma albumin/glob ulin mass ratioOrdered By: Najma Cates on 05-19-2025 Albumin/Globulin [Mass ratio] 1.2 {ratio} 0.9-2.4 [facility] Serum or plasma alkaline dameon sphatase measurementOrdered By: Najma Cates on 05-19-2025 ALP [Catalytic activity/Vol] 74 U/L 35-104 [facility] Serum or plasma calcium charlene urement (mass/volume)Ordered By: Najma Cates on 05-19-2025 Calcium [Mass/Vol] 8.9 mg/dL 7.6-11.0 [facility] Serum or plasma urea nitroge n measurement (mass/volume)Ordered By: Najma Cates on 05-19-2025 Urea nitrogen [Mass/Vol] 14 mg/dL 4-19 [facility] Sodium levelOrdered By: Dariau mn Darryn on 05-19-2025 Sodium [Moles/Vol] 133 mmol/L 133-145 [facility] Total proteinOrdered By: Daria umn Darryn on 05-19-2025 Protein [Mass/Vol] 6.6 g/dL 5.9-8.4 [facility] White blood cell (WBC) count Ordered By: Najma Cates on 05-19-2025 WBC (Bld) [#/Vol] 6.3 10*3/uL 4.4-11.0 [facility] 12 Lead EKGon 05-18-2025 12 Lead EKG Normal [facility] Abdomen/Pelvis W IV Cont ONL Yon 05-18-2025 Abdomen/Pelvis W IV Cont ONLY Normal [facility] Absolute lymphocyte countOrd ered By: Jeffery Mcclain on 05-18-2025 Lymphocytes Auto (Unsp spec) [#/Vol] 0.47 10*3/uL Low 0.83-4.51 [facility] Absolute neutrophil countOrd ered By: Jeffery Mcclain on 05-18-2025 Neutrophils (Bld) [#/Vol] 13.0 10*3/uL High 2.0-7.7 [facility] Anion gap in Serum or Plasma Ordered By: Jeffery Mcclain on 05-18-2025 Anion gap [Moles/Vol] 20 mmol/L High 5-15 [facility] Automated lymphocyte count a s percentage of total leukocytesOrdered By: Jeffery Mcclain on 05-18-2025 Lymphocytes/100 WBC Auto (Unsp spec) 3.3 % Low 19-41 [facility] BUN/creatinine ratioOrdered By: Jeffery Mcclain on 05-18-2025 Urea nitrogen/Creatinine [Mass ratio] 19.4 mg/mg 10-20 [facility] Basic Metabolic Profile (BMP )on 05-18-2025 BUN/CRE 19.6 RATIO Normal 10-20 [facility] Comment on above: Performed By: #### L 500.2500 ####[facility] [address] [place], [place], [address] Calcium [Mass/Vol] 8.0 mg/dL Normal 7.6-11.0 [facility] Comment on above: Performed By: #### L 500.2500 ####[facility] [address] [place], [address] Chloride [Moles/Vol] 102 mmol/L Normal 98-108 [facility] Comment on above: Performed By: #### L 500.2500 ####[facility] [address] [place], [address] CO2 [Moles/Vol] 15.1 mmol/L Low 21.0-32.0 [facility] Comment on above: Performed By: #### L 500.2500 ####[facility] [address] [place], [address] Creatinine [Mass/Vol] 0.56 mg/dL Low 0.70-1.20 [facility] Comment on above: Performed By: #### L 500.2500 ####[facility] [address] [place], [address] ECRCL 47.10 ml/min Low 50-250 [facility] Comment on above: Performed By: #### L 500.2500 ####[facility] [address] [place], [address] GAP 17 High 5-15 [facility] Comment on above: Performed By: #### L 500.2500 ####[facility] [address] [place], [address] GFR/1.73 sq M.predicted among non-blacks MDRD (S/P/Bld) [Vol rate/Area] 90 mL/min/{1.73_m2} Normal >60 [facility] Comment on above: Result Comment: mL/m in/1.73m2 CKD-EPI Creatinine Equation (2020) Performed By: #### L 500.2500 ####[facility] [address] [place], [address] Glucose [Mass/Vol] 148 mg/dL High 70-99 [facility] Comment on above: Performed By: #### L 500.2500 ####[facility] [address] [place], [address] Potassium [Moles/Vol] 3.5 mmol/L Normal 3.3-5.1 [facility] Comment on above: Performed By: #### L 500.2500 ####[facility] [address] [place], [address] Sodium [Moles/Vol] 134 mmol/L Normal 133-145 [facility] Comment on above: Performed By: #### L 500.2500 ####[facility] [address] [place], [address] Urea nitrogen [Mass/Vol] 11 mg/dL Normal 4-19 [facility] Comment on above: Performed By: #### L 500.2500 ####[facility] [address] [place], [place], [id number]) Basophil percentageOrdered B y: Jeffery Mcclain on 05-18-2025 Basophils/100 WBC (Bld) 0.3 % 0-1 [facility] Bilirubin Test strip Ql (U)O rdered By: Jeffery LovettWill on 05-18-2025 Bilirubin Ql (U) Negative Negative [facility] Bilirubin, totalOrdered By: Jeffery Mcclain on 05-18-2025 Bilirubin [Mass/Vol] 0.54 mg/dL 0.00-1.30 [facility] CBC W/Diff, Automatedon 08-0 Absolute Lymph 0.47 X10 3/uL Low 0.83-4.51 [facility] Comment on above: Performed By: #### L 500.4050, L100.0100, L501.2450, L503.6005 ####[facility] [address] [place], [address] Absolute Neut 13.0 X10 3/uL High 2.0-7.7 [facility] Comment on above: Performed By: #### L 500.4050, L100.0100, L501.2450, L503.6005 ####[facility] [address] [place], [address] Basophils/100 WBC (Bld) 0.3 % Normal 0-1 [facility] Comment on above: Performed By: #### L 500.4050, L100.0100, L501.2450, L503.6005 ####[facility] [address] [place], [address] Eosinophils/100 WBC (Bld) 0.0 % Normal 0-5 [facility] Comment on above: Performed By: #### L 500.4050, L100.0100, L501.2450, L503.6005 ####[facility] [address] [place], [address] Erythrocyte distribution width (RBC) [Ratio] 13.2 % Normal 11.6-14.6 [facility] Comment on above: Performed By: #### L 500.4050, L100.0100, L501.2450, L503.6005 ####[facility] [address] [place], [address] Hematocrit (Bld) [Volume fraction] 37.0 % Normal 37-47 [facility] Comment on above: Performed By: #### L 500.4050, L100.0100, L501.2450, L503.6005 ####[facility] [address] [place], [address] Hemoglobin (Bld) [Mass/Vol] 12.2 g/dL Normal 12.0-15.0 [facility] Comment on above: Performed By: #### L 500.4050, L100.0100, L501.2450, L503.6005 ####[facility] [address] [place], [address] IG% 0.200 Normal 0.0-0.9 [facility] Comment on above: Result Comment: IG% - Immature Granulocytes (promyelocytes, myelocytes andmetamyelocytes) > 1% indicates that a LEFT SHIFT is Present. Performed By: #### L 500.4050, L100.0100, L501.2450, L503.6005 ####[facility] [address] [place], [address] Lymphocytes/100 WBC (Bld) 3.3 % Low 19-41 [facility] Comment on above: Performed By: #### L 500.4050, L100.0100, L501.2450, L503.6005 ####[facility] [address] [place], [address] MCH (RBC) [Entitic mass] 28.0 pg Normal 27.0-32.0 [facility] Comment on above: Performed By: #### L 500.4050, L100.0100, L501.2450, L503.6005 ####[facility] [address] [place], [address] MCHC (RBC) [Mass/Vol] 33.0 g/dL Normal 32-36 [facility] Comment on above: Performed By: #### L 500.4050, L100.0100, L501.2450, L503.6005 ####[facility] [address] [place], [address] MCV (RBC) [Entitic vol] 85.1 fL Normal 81-99 [facility] Comment on above: Performed By: #### L 500.4050, L100.0100, L501.2450, L503.6005 ####[facility] [address] [place], [address] Monocytes/100 WBC (Bld) 4.6 % Normal 0-10 [facility] Comment on above: Performed By: #### L 500.4050, L100.0100, L501.2450, L503.6005 ####[facility] [address] [place], [address] Neutrophils/100 WBC (Bld) 91.6 % High 47-70 [facility] Comment on above: Performed By: #### L 500.4050, L100.0100, L501.2450, L503.6005 ####[facility] [address] [place], [address] Nucleated RBC (Bld) [#/Vol] 0 10*3/uL Normal 0-5 [facility] Comment on above: Performed By: #### L 500.4050, L100.0100, L501.2450, L503.6005 ####[facility] [address] [place], [address] Platelet mean volume (Bld) [Entitic vol] 11.9 fL Normal 6.2-12.0 [facility] Comment on above: Performed By: #### L 500.4050, L100.0100, L501.2450, L503.6005 ####[facility] [address] [place], [address] Platelets (Bld) [#/Vol] 364 10*3/uL Normal 150-450 [facility] Comment on above: Performed By: #### L 500.4050, L100.0100, L501.2450, L503.6005 ####[facility] [address] [place], [address] RBC (Bld) [#/Vol] 4.35 10*6/uL Normal 4.2-5.4 [facility] Comment on above: Performed By: #### L 500.4050, L100.0100, L501.2450, L503.6005 ####[facility] [address] [place], [address] RDW SD 41.1 fl Normal 35.1-43.9 [facility] Comment on above: Performed By: #### L 500.4050, L100.0100, L501.2450, L503.6005 ####[facility] [address] [place], [address] WBC (Bld) [#/Vol] 14.2 10*3/uL High 4.4-11.0 [facility] Comment on above: Performed By: #### L 500.4050, L100.0100, L501.2450, L503.6005 ####[facility] [address] [place], [address] Carbon dioxide, total [Moles /volume] in Central venous bloodOrdered By: Jeffery Mcclain on 05-18-2025 CO2 [Moles/Vol] 18.0 mmol/L Low 21.0-32.0 [facility] Chloride assayOrdered By: Refugio Mcclain on 05-18-2025 Chloride [Moles/Vol] 94 mmol/L Low 98-108 [facility] Comprehensive Metabolic Prof ilon 05-18-2025 Albumin [Mass/Vol] 4.5 g/dL Normal 3.4-4.8 [facility] Comment on above: Performed By: #### L 500.4050, L100.0100, L501.2450, L503.6005 ####[facility] [address] [place], [address] Albumin/Globulin [Mass ratio] 1.1 {ratio} Normal 0.9-2.4 [facility] Comment on above: Performed By: #### L 500.4050, L100.0100, L501.2450, L503.6005 ####[facility] [address] [place], [address] ALK PHOS 93 U/L Normal 35-104 [facility] Comment on above: Performed By: #### L 500.4050, L100.0100, L501.2450, L503.6005 ####[facility] [address] [place], [address] ALT [Catalytic activity/Vol] 16 U/L Normal <=34 [facility] Comment on above: Performed By: #### L 500.4050, L100.0100, L501.2450, L503.6005 ####[facility] [address] [place], [address] AST [Catalytic activity/Vol] 44 U/L High <=31 [facility] Comment on above: Result Comment: Hemo lysis present, Results??could be affected.?? Performed By: #### L 500.4050, L100.0100, L501.2450, L503.6005 ####[facility] [address] [place], [address] Bilirubin [Mass/Vol] 0.54 mg/dL Normal 0.00-1.30 [facility] Comment on above: Performed By: #### L 500.4050, L100.0100, L501.2450, L503.6005 ####[facility] [address] [place], [address] BUN/CRE 19.4 RATIO Normal 10-20 [facility] Comment on above: Performed By: #### L 500.4050, L100.0100, L501.2450, L503.6005 ####[facility] [address] [place], [address] Calcium [Mass/Vol] 10.1 mg/dL Normal 7.6-11.0 [facility] Comment on above: Performed By: #### L 500.4050, L100.0100, L501.2450, L503.6005 ####[facility] [address] [place], [address] Chloride [Moles/Vol] 94 mmol/L Low 98-108 [facility] Comment on above: Performed By: #### L 500.4050, L100.0100, L501.2450, L503.6005 ####[facility] [address] [place], [address] CO2 [Moles/Vol] 18.0 mmol/L Low 21.0-32.0 [facility] Comment on above: Performed By: #### L 500.4050, L100.0100, L501.2450, L503.6005 ####[facility] [address] [place], [address] Creatinine [Mass/Vol] 0.78 mg/dL Normal 0.70-1.20 [facility] Comment on above: Performed By: #### L 500.4050, L100.0100, L501.2450, L503.6005 ####[facility] [address] [place], [address] ECRCL 47.10 ml/min Low 50-250 [facility] Comment on above: Performed By: #### L 500.4050, L100.0100, L501.2450, L503.6005 ####[facility] [address] [place], [address] GAP 20 High 5-15 [facility] Comment on above: Performed By: #### L 500.4050, L100.0100, L501.2450, L503.6005 ####[facility] [address] [place], [address] GFR/1.73 sq M.predicted among non-blacks MDRD (S/P/Bld) [Vol rate/Area] 75 mL/min/{1.73_m2} Normal >60 [facility] Comment on above: Result Comment: mL/m in/1.73m2 CKD-EPI Creatinine Equation (2020) Performed By: #### L 500.4050, L100.0100, L501.2450, L503.6005 ####[facility] [address] [place], [address] Globulin (S) [Mass/Vol] 4.1 g/dL Normal 2.2-4.2 [facility] Comment on above: Performed By: #### L 500.4050, L100.0100, L501.2450, L503.6005 ####[facility] [address] [place], [address] Glucose [Mass/Vol] 152 mg/dL High 70-99 [facility] Comment on above: Performed By: #### L 500.4050, L100.0100, L501.2450, L503.6005 ####[facility] [address] [place], [address] Potassium [Moles/Vol] 4.0 mmol/L Normal 3.3-5.1 [facility] Comment on above: Result Comment: Hemo lysis present, Results??could be affected.?? Performed By: #### L 500.4050, L100.0100, L501.2450, L503.6005 ####[facility] [address] [place], [address] Sodium [Moles/Vol] 132 mmol/L Low 133-145 [facility] Comment on above: Performed By: #### L 500.4050, L100.0100, L501.2450, L503.6005 ####[facility] [address] [place], [address] T PROT 8.6 g/dL High 5.9-8.4 [facility] Comment on above: Performed By: #### L 500.4050, L100.0100, L501.2450, L503.6005 ####[facility] [address] [place], [address] Urea nitrogen [Mass/Vol] 15 mg/dL Normal 4-19 [facility] Comment on above: Performed By: #### L 500.4050, L100.0100, L501.2450, L503.6005 ####[facility] [address] [place], [address] Emergency Department Summary on 05-18-2025 Emergency Department Summary Normal [facility] Eosinophil percentageOrdered By: Jeffery Mcclain on 05-18-2025 Eosinophils/100 WBC (Bld) 0.0 % 0-5 [facility] Erythrocyte distribution wid th ratioOrdered By: [facility] InstituteAdelfo on 05-18-2025 Erythrocyte distribution width (RBC) [Ratio] 13.2 % 11.6-14.6 [facility] Erythrocyte distribution wid th standard deviationOrdered By: [facility] Rehabilitation Institutesidney Solis on 05-18-2025 Erythrocyte distribution width (RBC) [Ratio] 41.1 fl 35.1-43.9 [facility] Glomerular filtration rate ( GFR) estimation/1.73 sq m using serum, plasma, or whole bOrdered By: Jefferysandro Mcclain on 05-18-2025 GFR/1.73 sq M.predicted among non-blacks MDRD (S/P/Bld) [Vol rate/Area] 75 mL/min/{1.73_m2} >60 [facility] Comment on above: mL/min/1.73m2 CKD-EP I Creatinine Equation (2020) H AND P Exam - Hospitaliston 05-18-2025 H&P Exam - Hospitalist Normal [facility] Hematocrit Auto (Bld) [Volum e fraction]Ordered By: Jeffery Mcclain on 05-18-2025 Hematocrit (Bld) [Volume fraction] 37.0 % 37-47 [facility] Hemoglobin measurementOrdere d By: Jeffery Mcclain on 05-18-2025 Hemoglobin (Bld) [Mass/Vol] 12.2 g/dL 12.0-15.0 [facility] Immature granulocytes/100 WB C Auto (Bld)Ordered By: Jeffery Mcclain on 05-18-2025 Immature granulocytes/100 WBC (Bld) 0.200 % 0.0-0.9 [facility] Comment on above: IG% - Immature Granu locytes (promyelocytes, myelocytes and metamyelocytes) > 1% indicates that a LEFT SHIFT is Present. Ketones Test strip Ql (U)Ord ered By: Jeffery Mcclain on 05-18-2025 Ketones Ql (U) 15 mg/dl High Negative [facility] Laboratory - Chemistry and C hemistry - challengeOrdered By: Jeffery Mcclain on 05-18-2025 AST [Catalytic activity/Vol] 44 U/L High <32 [facility] Comment on above: Hemolysis present, R esults could be affected. Lactic Acidon 05-18-2025 Lactate [Moles/Vol] 1.9 mmol/L Normal 0.0-2.0 [facility] Comment on above: Order Comment: Y Performed By: #### L 500.4050, L100.0100, L501.2450, L503.6005 ####[facility] [address] [place], [address] Lactic acid measurementOrder ed By: Jeffery Mcclain on 05-18-2025 Lactate [Moles/Vol] 1.9 mmol/L 0.0-2.0 [facility] Lipaseon 05-18-2025 Lipase [Catalytic activity/Vol] 32 U/L Normal 13-75 [facility] Comment on above: Result Comment: Plea se note:LIPASE revised reference range effective 23.New Lipase methodology. Expected to produce lower valuesthan the previous assay method.NEW Reference Range: 13 - 75 U/L Performed By: #### L 500.4050, L100.0100, L501.2450, L503.6005 ####[facility] [address], [address] Lipase measurementOrdered By : Jeffery Mcclain on 05-18-2025 Lipase [Catalytic activity/Vol] 32 U/L 13-75 [facility] Comment on above: Please note:LIPASE r evised reference range effective 23. New Lipase methodology. Expected to produce lower values than the previous assay method. NEW Reference Range: 13 - 75 U/L MCV (mean corpuscular volume ) determinationOrdered By: Jeffery Mcclain on 05-18-2025 MCV (RBC) [Entitic vol] 85.1 fL 81-99 [facility] Mean corpuscular hemoglobin (MCH) determinationOrdered By: Jeffery Mcclain on 05-18-2025 MCH (RBC) [Entitic mass] 28.0 pg 27.0-32.0 [facility] Mean corpuscular hemoglobin concentration (MCHC) determinationOrdered By: Jeffery Mcclain on 05-18-2025 MCHC (RBC) [Mass/Vol] 33.0 g/dL 32-36 [facility] Mean platelet volume determi nationOrdered By: Jeffery Mcclain on 05-18-2025 Platelet mean volume (Bld) [Entitic vol] 11.9 fL 6.2-12.0 [facility] Microscopic analysis of urin e for red blood cells (RBC)Ordered By: Jeffery Mcclain on 05-18-2025 Microscopic analysis of urine for red blood cells (RBC) 0-5 SEEN /hpf 0-5 [facility] Monocyte percentageOrdered B y: Jeffery Mcclain on 05-18-2025 Monocytes/100 WBC (Bld) 4.6 % 0-10 [facility] Mucus LM Ql (Urine sed)Order ed By: Jeffery Mcclain on 05-18-2025 Mucus Ql (Urine sed) 0 SEEN /hpf [facility] Neutrophil percentageOrdered By: Jeffery Mcclain on 05-18-2025 Neutrophils/100 WBC (Bld) 91.6 % High 47-70 [facility] Nitrite Test strip Ql (U)Ord ered By: Jeffery Mcclain on 05-18-2025 Nitrite Ql (U) Negative Negative [facility] Nucleated red blood cell per centageOrdered By: Jeffery Mcclain on 05-18-2025 Nucleated RBC/100 WBC (Bld) [Ratio] 0 % 0-5 [facility] Platelet countOrdered By: Refugio Mcclain on 05-18-2025 Platelets (Bld) [#/Vol] 364 10*3/uL 150-450 [facility] Potassium measurement (mass/ volume)Ordered By: Jeffery Mcclain on 05-18-2025 Potassium (Unsp spec) [Mass/Vol] 4.0 mmol/L 3.3-5.1 [facility] Comment on above: Hemolysis present, R esults could be affected. Protein Test strip Ql (U)Ord ered By: Jeffery Mcclain on 05-18-2025 Protein Ql (U) 30 mg/dl High Negative [facility] RBC Auto (Bld) [#/Vol]Ordere d By: Jeffery Mcclain on 05-18-2025 RBC (Bld) [#/Vol] 4.35 10*6/uL 4.2-5.4 [facility] Serum creatinine measurement (mass/volume)Ordered By: Jeffery Mcclain on 05-18-2025 Creatinine [Mass/Vol] 0.78 mg/dL 0.70-1.20 [facility] Serum globulin measurementOr dered By: Jeffery Mcclain on 05-18-2025 Globulin (S) [Mass/Vol] 4.1 g/dL 2.2-4.2 [facility] Serum glucose measurement (m ass/volume)Ordered By: Jeffery Mcclain on 05-18-2025 Glucose [Mass/Vol] 152 mg/dL High 70-99 [facility] Serum or plasma alanine thompson otransferase (ALT) measurementOrdered By: Jeffery Mcclain on 05-18-2025 ALT [Catalytic activity/Vol] 16 U/L <35 [facility] Serum or plasma albumin charlene urement (mass/volume)Ordered By: Jeffery Solis on 05-18-2025 Albumin [Mass/Vol] 4.5 g/dL 3.4-4.8 [facility] Serum or plasma albumin/glob ulin mass ratioOrdered By: Jeffery Mcclain on 05-18-2025 Albumin/Globulin [Mass ratio] 1.1 {ratio} 0.9-2.4 [facility] Serum or plasma alkaline dameon sphatase measurementOrdered By: Jeffery Mcclain on 05-18-2025 ALP [Catalytic activity/Vol] 93 U/L 35-104 [facility] Serum or plasma calcium charlene urement (mass/volume)Ordered By: Jeffery Solis on 05-18-2025 Calcium [Mass/Vol] 10.1 mg/dL 7.6-11.0 [facility] Serum or plasma urea nitroge n measurement (mass/volume)Ordered By: Jeffery Mcclain on 05-18-2025 Urea nitrogen [Mass/Vol] 15 mg/dL 4-19 [facility] Sodium levelOrdered By: Jesus Mcclain on 05-18-2025 Sodium [Moles/Vol] 132 mmol/L Low 133-145 [facility] Squamous epithelial cells de tection in urine sediment by light microscopyOrdered By: Jeffery Mcclain on 05-18-2025 Epithelial cells.squamous LM Ql (Urine sed) 0-5 SEEN /hpf 5-10 [facility] Total proteinOrdered By: Mikel Mcclain on 05-18-2025 Protein [Mass/Vol] 8.6 g/dL High 5.9-8.4 [facility] Urinalysis, Completeon 05-18 EPI,SQUAMOUS 0-5 SEEN Normal 5-10 [facility] Comment on above: Order Comment: CLEAN CATCH Performed By: #### L 400.0001 ####[facility] [address] [place], [address] RBC 0-5 SEEN Normal 0-5 [facility] Comment on above: Order Comment: CLEAN CATCH Performed By: #### L 400.0001 ####[facility] [address] [place], [address] WBC 0-5 SEEN Normal 0-5 [facility] Comment on above: Order Comment: CLEAN CATCH Performed By: #### L 400.0001 ####[facility] [address] [place], [address] BACTERIA 0 SEEN Normal None Seen [facility] Comment on above: Order Comment: CLEAN CATCH Performed By: #### L 400.0001 ####[facility] [address] [place], [address] Mucus Ql (Urine sed) 0 SEEN Normal [facility] Comment on above: Order Comment: CLEAN CATCH Performed By: #### L 400.0001 ####[facility] [address] [place], [address] Urine clarityOrdered By: Mikel Mcclain on 05-18-2025 Clarity (U) Sl. Cloudy Clear [facility] Urine color determinationOrd ered By: Jeffery Mcclain on 05-18-2025 Color (U) Straw Yellow [facility] Urine glucose detectionOrder ed By: Jeffery Mcclain on 05-18-2025 Glucose Ql (U) Normal mg/dl Normal [facility] Urine leukocyte esterase det ection by dipstickOrdered By: Jeffery Mcclain on 05-18-2025 Leukocyte esterase Test strip Ql (U) 100 /ul High Negative [facility] Urine pHOrdered By: Jeffery Emanuel on 05-18-2025 pH (U) 7.0 [pH] 5.0 - 8.0 [facility] Urine sediment bacteria coun t by microscopy (number/high power field)Ordered By: Jeffery Mcclain on 05-18-2025 Bacteria LM.HPF (Urine sed) [#/Area] 0 /[HPF] None Seen [facility] Urine specific gravity measu rementOrdered By: Jeffery Mcclain on 05-18-2025 Specific gravity (U) [Rel density] 1.010 1.002-1.030 [facility] Urine urobilinogen measureme ntOrdered By: Jeffery Mcclain on 05-18-2025 Urobilinogen Ql (U) Normal mg/dl Normal [facility] White blood cell (WBC) count Ordered By: Jeffery Mcclain on 05-18-2025 WBC (Bld) [#/Vol] 14.2 10*3/uL High 4.4-11.0 [facility] White blood cell countOrdere d By: Jeffery Mcclain on 05-18-2025 White blood cell count 0-5 SEEN /hpf 0-5 [facility] SURG PATH REQUESTon 05-17-20 Case Report Normal [facility] Comment on above: Result Comment: Surg ical Pathology Report Case: [id number] Authorizing Provider: Carlos Bernal MD Collected: 05/17/2025 03:17 PM Ordering Location[facility] Received: 05/17/2025 03:13 PM [facility] Pathologist: YOLANDA Hidalgo, PhD Specimen: SURG PATH, Outside Block [id number] (A2); Lung, left, CT-guided core biopsy; Molecular testing Performed By: #### S URGP #### [facility] (DEFAULT) [address] [place] [address] Clinical History Normal [facility] Comment on above: Result Comment: Rece ived is a request from Carlos Bernal MD at [facility], [address] [place] [address] for molecular testing on a paraffin block received from [facility]. Performed By: #### S URGP #### [facility] (DEFAULT) [address] [place] [address] Gross Description Normal [facility] Comment on above: Result Comment: The following material(s) are received from [facility], [address] [place] [address] with an identifying Surgical Pathology Report: 1 paraffin block marked [id number] (A2), which is submitted to the [facility] histology/IHC laboratory for recutting and [...] Performed By: #### S URGP #### [facility] (DEFAULT) [address] [place] [address] Microscopic Description Normal [facility] Comment on above: Result Comment: Tiss ue [...] patients who are not eligible for any tonto apache-containing chemotherapy regardless of PD-L1 status. See [employer] prescribing information for details. *PD-L1 IHC 22C3 pharmDx is a FDA-approved weight recorder diagnostic for pembrolizumab performed on Dako Autostainer [...] paraffin-embedded tissues, using clone [id number] (rabbit monoclonal, [place]) on a [place] auto-stainer. Membrane staining of tumor cells is [...] Genie? Pro Detection Kit, DAB on the Kelsy Tissue Hood Genie Advanced Staining System. Convincing [...] by and are performed at the [facility] Clinical Laboratory, Histology and IHC Lab, [address] [place] [address]. All Immunofluorescent (IF) tests were developed by and are performed at the [facility], Renal Division, [facility]. [address] [place] [address]. All tests reported here, except for PD-L1, have not been cleared by or approved by the [place] Food and Drug Administration (FDA). The laboratory is regulated under CLIA as qualified to perform high-complexity testing. The tests are used for clinical purposes. They should not be regarded as investigational or for research. Performed By: #### S URGP #### [facility] (DEFAULT) [address] [place] [address] Pathologic Diagnosis [facility] Comment on above: Result Comment: Outs otilio Slides: [id number] (05/10/25) Lung, left, CT-guided lung biopsy: PD-L1 [...] Performed By: #### S URGP #### [facility] (DEFAULT) [address] [place] [address] Professional Interpretation Performed at: [facility] Comment on above: Result Comment: [facility] For Immediate Release [facility] Yes [address] [place] [address] Performed By: #### S URGP #### [facility] (DEFAULT) [address] [place] [address] Cardiology Visit Reporton Cardiology Visit Report Normal [facility] Surgical pathology reportOrd ered By: Erum Bonilla on 05-15-2025 Surgical pathology study [facility] Absolute lymphocyte countOrd ered By: Brian Gonzales on 05-10-2025 Lymphocytes Auto (Unsp spec) [#/Vol] 0.79 10*3/uL Low 0.83-4.51 [facility] Absolute neutrophil countOrd ered By: Brian Gonzales on 05-10-2025 Neutrophils (Bld) [#/Vol] 4.5 10*3/uL 2.0-7.7 [facility] Activated partial thrombopla stin time (aPTT) in platelet poor plasma by coagulation aOrdered By: Brian Gonzales on 05-10-2025 aPTT Coag (PPP) [Time] 25.6 s 24.1-36.2 [facility] Automated lymphocyte count a s percentage of total leukocytesOrdered By: Brian Gonzales on 05-10-2025 Lymphocytes/100 WBC Auto (Unsp spec) 12.9 % Low 19-41 [facility] Basophil percentageOrdered B y: Brian Gonzales on 05-10-2025 Basophils/100 WBC (Bld) 1.0 % 0-1 [facility] Biopsy/Inj or Needle Placeme nton 05-10-2025 Biopsy/Inj or Needle Placement Normal [facility] CBC W/Diff, Automatedon 04-13 0 Absolute Lymph 0.79 X10 3/uL Low 0.83-4.51 [facility] Comment on above: Performed By: #### L 300.3900, L300.4310, L100.0100 ####[facility] [address] [place], [address] Absolute Neut 4.5 X10 3/uL Normal 2.0-7.7 [facility] Comment on above: Performed By: #### L 300.3900, L300.4310, L100.0100 ####[facility] [address] [place], [address] Basophils/100 WBC (Bld) 1.0 % Normal 0-1 [facility] Comment on above: Performed By: #### L 300.3900, L300.4310, L100.0100 ####[facility] [address] [place], [address] Eosinophils/100 WBC (Bld) 1.5 % Normal 0-5 [facility] Comment on above: Performed By: #### L 300.3900, L300.4310, L100.0100 ####[facility] [address] [place], [address] Erythrocyte distribution width (RBC) [Ratio] 13.2 % Normal 11.6-14.6 [facility] Comment on above: Performed By: #### L 300.3900, L300.4310, L100.0100 ####[facility] [address] [place], [address] Hematocrit (Bld) [Volume fraction] 34.7 % Low 37-47 [facility] Comment on above: Performed By: #### L 300.3900, L300.4310, L100.0100 ####[facility] [address] [place], [address] Hemoglobin (Bld) [Mass/Vol] 11.0 g/dL Low 12.0-15.0 [facility] Comment on above: Performed By: #### L 300.3900, L300.4310, L100.0100 ####[facility] [address] [place], [address] IG% 0.500 Normal 0.0-0.9 [facility] Comment on above: Result Comment: IG% - Immature Granulocytes (promyelocytes, myelocytes andmetamyelocytes) > 1% indicates that a LEFT SHIFT is Present. Performed By: #### L 300.3900, L300.4310, L100.0100 ####[facility] [address] [place], [address] Lymphocytes/100 WBC (Bld) 12.9 % Low 19-41 [facility] Comment on above: Performed By: #### L 300.3900, L300.4310, L100.0100 ####[facility] [address] [place], [address] MCH (RBC) [Entitic mass] 27.8 pg Normal 27.0-32.0 [facility] Comment on above: Performed By: #### L 300.3900, L300.4310, L100.0100 ####[facility] [address] [place], [address] MCHC (RBC) [Mass/Vol] 31.7 g/dL Low 32-36 [facility] Comment on above: Performed By: #### L 300.3900, L300.4310, L100.0100 ####[facility] [address] [place], [address] MCV (RBC) [Entitic vol] 87.8 fL Normal 81-99 [facility] Comment on above: Performed By: #### L 300.3900, L300.4310, L100.0100 ####[facility] [address] [place], [address] Monocytes/100 WBC (Bld) 11.6 % High 0-10 [facility] Comment on above: Performed By: #### L 300.3900, L300.4310, L100.0100 ####[facility] [address] [place], [address] Neutrophils/100 WBC (Bld) 72.5 % High 47-70 [facility] Comment on above: Performed By: #### L 300.3900, L300.4310, L100.0100 ####[facility] [address] [place], [address] Nucleated RBC (Bld) [#/Vol] 0 10*3/uL Normal 0-5 [facility] Comment on above: Performed By: #### L 300.3900, L300.4310, L100.0100 ####[facility] [address] [place], [address] Platelet mean volume (Bld) [Entitic vol] 10.7 fL Normal 6.2-12.0 [facility] Comment on above: Performed By: #### L 300.3900, L300.4310, L100.0100 ####[facility] [address] [place], [address] Platelets (Bld) [#/Vol] 347 10*3/uL Normal 150-450 [facility] Comment on above: Performed By: #### L 300.3900, L300.4310, L100.0100 ####[facility] [address] [place], [address] RBC (Bld) [#/Vol] 3.95 10*6/uL Low 4.2-5.4 [facility] Comment on above: Performed By: #### L 300.3900, L300.4310, L100.0100 ####[facility] [address] [place], [address] RDW SD 42.8 fl Normal 35.1-43.9 [facility] Comment on above: Performed By: #### L 300.3900, L300.4310, L100.0100 ####[facility] [address] [place], [address] WBC (Bld) [#/Vol] 6.1 10*3/uL Normal 4.4-11.0 [facility] Comment on above: Performed By: #### L 300.3900, L300.4310, L100.0100 ####[facility] [address] [place], [address] Chest Insp/Exp 2 Viewon 04-13 Chest Insp/Exp 2 View Normal [facility] Chest Insp/Exp 2 View Normal [facility] Eosinophil percentageOrdered By: Brian Gonzales on 05-10-2025 Eosinophils/100 WBC (Bld) 1.5 % 0-5 [facility] Erythrocyte distribution wid th ratioOrdered By: Brian Gonzales on 05-10-2025 Erythrocyte distribution width (RBC) [Ratio] 13.2 % 11.6-14.6 [facility] Erythrocyte distribution wid th standard deviationOrdered By: Brian Gonzales on 05-10-2025 Erythrocyte distribution width (RBC) [Ratio] 42.8 fl 35.1-43.9 [facility] Hematocrit Auto (Bld) [Volum e fraction]Ordered By: Brian Gonzales on 05-10-2025 Hematocrit (Bld) [Volume fraction] 34.7 % Low 37-47 [facility] Hemoglobin measurementOrdere d By: Brian Gonzales on 05-10-2025 Hemoglobin (Bld) [Mass/Vol] 11.0 g/dL Low 12.0-15.0 [facility] Immature granulocytes/100 WB C Auto (Bld)Ordered By: Brian Gonzales on 05-10-2025 Immature granulocytes/100 WBC (Bld) 0.500 % 0.0-0.9 [facility] Comment on above: IG% - Immature Granu locytes (promyelocytes, myelocytes and metamyelocytes) > 1% indicates that a LEFT SHIFT is Present. Immunohistochemical Stainson 05-10-2025 Immunohistochemical Stains Normal [facility] Comment on above: Performed By: #### P IMWV ####[facility] [address] [place], [address] International normalized rat io (INR) calculationOrdered By: Brian Gonzales on 05-10-2025 INR Coag (Bld) [Relative time] 1.0 {INR} [facility] MCV (mean corpuscular volume ) determinationOrdered By: Brian Gonzales on 05-10-2025 MCV (RBC) [Entitic vol] 87.8 fL 81-99 [facility] Mean corpuscular hemoglobin (MCH) determinationOrdered By: Brian Gonzales on 05-10-2025 MCH (RBC) [Entitic mass] 27.8 pg 27.0-32.0 [facility] Mean corpuscular hemoglobin concentration (MCHC) determinationOrdered By: Brian Gonzales on 05-10-2025 MCHC (RBC) [Mass/Vol] 31.7 g/dL Low 32-36 [facility] Mean platelet volume determi nationOrdered By: Brian Gonzales on 05-10-2025 Platelet mean volume (Bld) [Entitic vol] 10.7 fL 6.2-12.0 [facility] Monocyte percentageOrdered B y: Brian Gonzales on 05-10-2025 Monocytes/100 WBC (Bld) 11.6 % High 0-10 [facility] Neutrophil percentageOrdered By: Brian Gonzales on 05-10-2025 Neutrophils/100 WBC (Bld) 72.5 % High 47-70 [facility] Nucleated red blood cell per centageOrdered By: Brian Gonzales on 05-10-2025 Nucleated RBC/100 WBC (Bld) [Ratio] 0 % 0-5 [facility] Partial Thromboplast Timeon 05-10-2025 aPTT Coag (Bld) [Time] 25.6 s Normal 24.1-36.2 [facility] Comment on above: Performed By: #### L 300.3900, L300.4310, L100.0100 ####[facility] [address] [place], [address] Platelet countOrdered By: Brock Gonzales on 05-10-2025 Platelets (Bld) [#/Vol] 347 10*3/uL 150-450 [facility] Prothrombin Time w/INRon INR Coag (PPP) [Relative time] 1.0 {INR} Normal [facility] Comment on above: Performed By: #### L 300.3900, L300.4310, L100.0100 ####[facility] [address] [place], [address] PT Coag (PPP) [Time] 13.0 s Normal 11.7-14.9 [facility] Comment on above: Performed By: #### L 300.3900, L300.4310, L100.0100 ####[facility] [address] [place], [address] Prothrombin timeOrdered By: Brian Gonzales on 05-10-2025 PT Coag (PPP) [Time] 13.0 s 11.7-14.9 [facility] RBC Auto (Bld) [#/Vol]Ordere d By: Brian Gonzales on 05-10-2025 RBC (Bld) [#/Vol] 3.95 10*6/uL Low 4.2-5.4 [facility] White blood cell (WBC) count Ordered By: Brian Gonzales on 05-10-2025 WBC (Bld) [#/Vol] 6.1 10*3/uL 4.4-11.0 [facility] PET/CT Tumor Base -Thigh Ini ton 05-02-2025 PET/CT Tumor Base -Thigh Init Normal [facility] Oncology Visit Reporton 04-11 Oncology Visit Report Normal [facility] CT Chest, Abd, Pel w/Contras ton 04-17-2025 CT Chest, Abd, Pel w/Contrast Normal [facility] Cancer Antigen 125on 025 CA 125 121.0 U/mL High 0.0-38.1 [facility] Comment on above: Result Comment: [facility] [employer] Electrochemiluminescence Immunoassay(ECLIA)Values obtained with different assay methods or kits cannotbe used interchangeably. Results cannot be interpreted asabsolute evidence of the presence or absence of malignantdisease.Performed at: [address] [id number] Director: Guero Smyth PhD, Phone: [phone] Performed By: #### L 3100.5000 ####[facility] [address] [place], [address] Cancer antigen 125 (CA-125) measurementOrdered By: Carlos Bernal on 04-12-2025 Cancer antigen 125 (CA-125) measurement 121.0 U/mL High 0.0-38.1 [facility] Comment on above: [facility] El ectrochemiluminescence Immunoassay(ECLIA)Values obtained with different assay methods or kits cannotbe used interchangeably. Results cannot be interpreted asabsolute evidence of the presence or absence of malignantdisease.Performed at: [address] [id number] Director: Guero Smyth PhD, Phone: [phone] Oncology Visit Reporton Oncology Visit Report Normal [facility] Cancer Antigen 125on 025 CA 125 83.5 U/mL High 0.0-38.1 [facility] Comment on above: Result Comment: [facility] [employer] Electrochemiluminescence Immunoassay(ECLIA)Values obtained with different assay methods or kits cannotbe used interchangeably. Results cannot be interpreted asabsolute evidence of the presence or absence of malignantdisease.Performed at: [facility] [place] [id number] Director: Guero Smyth PhD, Phone: [phone] Performed By: #### L 100.0100, L500.4050, L3100.5000, L504.2610 ####[facility] [address] [place], [place], [address] Absolute lymphocyte countOrd ered By: Carlos Bernal on 03-22-2025 Lymphocytes Auto (Unsp spec) [#/Vol] 0.82 10*3/uL Low 0.83-4.51 [facility] Absolute neutrophil countOrd ered By: [facility] on 03-22-2025 Neutrophils (Bld) [#/Vol] 5.1 10*3/uL 2.0-7.7 [facility] Anion gap in Serum or Plasma Ordered By: Carlos Bernal on 03-22-2025 Anion gap [Moles/Vol] 12 mmol/L 5-15 [facility] Automated lymphocyte count a s percentage of total leukocytesOrdered By: Carlos Bernal on 03-22-2025 Lymphocytes/100 WBC Auto (Unsp spec) 12.6 % Low 19-41 [facility] BUN/creatinine ratioOrdered By: [facility] on 03-22-2025 Urea nitrogen/Creatinine [Mass ratio] 19.3 mg/mg 10-20 [facility] Basophil percentageOrdered B y: Carlos Bernal on 03-22-2025 Basophils/100 WBC (Bld) 0.9 % 0- [facility] Bilirubin, totalOrdered By: Carlos Bernal on 03-22-2025 Bilirubin [Mass/Vol] 0.24 mg/dL 0.00-1.30 [facility] CBC W/Diff, Automatedon 03-12 Absolute Lymph 0.82 X10 3/uL Low 0.83-4.51 [facility] Comment on above: Performed By: #### L 100.0100, L500.4050, L3100.5000, L504.2610 ####[facility] [address] [place], [address] Absolute Neut 5.1 X10 3/uL Normal 2.0-7.7 [facility] Comment on above: Performed By: #### L 100.0100, L500.4050, L3100.5000, L504.2610 ####[facility] [address] [place], [address] Basophils/100 WBC (Bld) 0.9 % Normal 0-1 [facility] Comment on above: Performed By: #### L 100.0100, L500.4050, L3100.5000, L504.2610 ####[facility] [address] [place], [address] Eosinophils/100 WBC (Bld) 1.4 % Normal 0-5 [facility] Comment on above: Performed By: #### L 100.0100, L500.4050, L3100.5000, L504.2610 ####[facility] [address] [place], [address] Erythrocyte distribution width (RBC) [Ratio] 12.3 % Normal 11.6-14.6 [facility] Comment on above: Performed By: #### L 100.0100, L500.4050, L3100.5000, L504.2610 ####[facility] [address] [place], [address] Hematocrit (Bld) [Volume fraction] 32.9 % Low 37-47 [facility] Comment on above: Performed By: #### L 100.0100, L500.4050, L3100.5000, L504.2610 ####[facility] [address] [place], [address] Hemoglobin (Bld) [Mass/Vol] 10.4 g/dL Low 12.0-15.0 [facility] Comment on above: Performed By: #### L 100.0100, L500.4050, L3100.5000, L504.2610 ####[facility] [address] [place], [address] IG% 0.300 Normal 0.0-0.9 [facility] Comment on above: Result Comment: IG% - Immature Granulocytes (promyelocytes, myelocytes andmetamyelocytes) > 1% indicates that a LEFT SHIFT is Present. Performed By: #### L 100.0100, L500.4050, L3100.5000, L504.2610 ####[facility] [address] [place], [address] Lymphocytes/100 WBC (Bld) 12.6 % Low 19-41 [facility] Comment on above: Performed By: #### L 100.0100, L500.4050, L3100.5000, L504.2610 ####[facility] [address] [place], [address] MCH (RBC) [Entitic mass] 28.1 pg Normal 27.0-32.0 [facility] Comment on above: Performed By: #### L 100.0100, L500.4050, L3100.5000, L504.2610 ####[facility] [address] [place], [address] MCHC (RBC) [Mass/Vol] 31.6 g/dL Low 32-36 [facility] Comment on above: Performed By: #### L 100.0100, L500.4050, L3100.5000, L504.2610 ####[facility] [address] [place], [address] MCV (RBC) [Entitic vol] 88.9 fL Normal 81-99 [facility] Comment on above: Performed By: #### L 100.0100, L500.4050, L3100.5000, L504.2610 ####[facility] [address] [place], [address] Monocytes/100 WBC (Bld) 7.4 % Normal 0-10 [facility] Comment on above: Performed By: #### L 100.0100, L500.4050, L3100.5000, L504.2610 ####[facility] [address] [place], [address] Neutrophils/100 WBC (Bld) 77.4 % High 47-70 [facility] Comment on above: Performed By: #### L 100.0100, L500.4050, L3100.5000, L504.2610 ####[facility] [address] [place], [address] Nucleated RBC (Bld) [#/Vol] 0 10*3/uL Normal 0-5 [facility] Comment on above: Performed By: #### L 100.0100, L500.4050, L3100.5000, L504.2610 ####[facility] [address] [place], [address] Platelet mean volume (Bld) [Entitic vol] 10.6 fL Normal 6.2-12.0 [facility] Comment on above: Performed By: #### L 100.0100, L500.4050, L3100.5000, L504.2610 ####[facility] [address] [place], [address] Platelets (Bld) [#/Vol] 314 10*3/uL Normal 150-450 [facility] Comment on above: Performed By: #### L 100.0100, L500.4050, L3100.5000, L504.2610 ####[facility] [address] [place], [address] RBC (Bld) [#/Vol] 3.70 10*6/uL Low 4.2-5.4 [facility] Comment on above: Performed By: #### L 100.0100, L500.4050, L3100.5000, L504.2610 ####[facility] [address] [place], [address] RDW SD 39.8 fl Normal 35.1-43.9 [facility] Comment on above: Performed By: #### L 100.0100, L500.4050, L3100.5000, L504.2610 ####[facility] [address] [place], [address] WBC (Bld) [#/Vol] 6.5 10*3/uL Normal 4.4-11.0 [facility] Comment on above: Performed By: #### L 100.0100, L500.4050, L3100.5000, L504.2610 ####[facility] [address] [place], [address] Carbon dioxide, total [Moles /volume] in Central venous bloodOrdered By: Carlos Bernal on 03-22-2025 CO2 [Moles/Vol] 21.8 mmol/L 21.0-32.0 [facility] Chloride assayOrdered By: Emily Bernal on 03-22-2025 Chloride [Moles/Vol] 102 mmol/L 98-108 [facility] Comprehensive Metabolic Prof ilon 03-22-2025 Albumin [Mass/Vol] 4.1 g/dL Normal 3.4-4.8 [facility] Comment on above: Performed By: #### L 100.0100, L500.4050, L3100.5000, L504.2610 ####[facility] [address] [place], [address] Albumin/Globulin [Mass ratio] 1.3 {ratio} Normal 0.9-2.4 [facility] Comment on above: Performed By: #### L 100.0100, L500.4050, L3100.5000, L504.2610 ####[facility] [address] [place], [address] ALK PHOS 84 U/L Normal 35-104 [facility] Comment on above: Performed By: #### L 100.0100, L500.4050, L3100.5000, L504.2610 ####[facility] [address] [place], [address] ALT [Catalytic activity/Vol] 18 U/L Normal <=34 [facility] Comment on above: Performed By: #### L 100.0100, L500.4050, L3100.5000, L504.2610 ####[facility] [address] [place], [address] AST [Catalytic activity/Vol] 32 U/L Normal <=31 [facility] Comment on above: Performed By: #### L 100.0100, L500.4050, L3100.5000, L504.2610 ####[facility] [address] [place], [address] Bilirubin [Mass/Vol] 0.24 mg/dL Normal 0.00-1.30 [facility] Comment on above: Performed By: #### L 100.0100, L500.4050, L3100.5000, L504.2610 ####[facility] [address] [place], [address] BUN/CRE 19.3 RATIO Normal 10-20 [facility] Comment on above: Performed By: #### L 100.0100, L500.4050, L3100.5000, L504.2610 ####[facility] [address] [place], [address] Calcium [Mass/Vol] 9.5 mg/dL Normal 7.6-11.0 [facility] Comment on above: Performed By: #### L 100.0100, L500.4050, L3100.5000, L504.2610 ####[facility] [address] [place], [address] Chloride [Moles/Vol] 102 mmol/L Normal 98-108 [facility] Comment on above: Performed By: #### L 100.0100, L500.4050, L3100.5000, L504.2610 ####[facility] [address] [place], [address] CO2 [Moles/Vol] 21.8 mmol/L Normal 21.0-32.0 [facility] Comment on above: Performed By: #### L 100.0100, L500.4050, L3100.5000, L504.2610 ####[facility] [address] [place], [address] Creatinine [Mass/Vol] 0.77 mg/dL Normal 0.70-1.20 [facility] Comment on above: Performed By: #### L 100.0100, L500.4050, L3100.5000, L504.2610 ####[facility] [address] [place], [address] ECRCL 47.95 ml/min Low 50-250 [facility] Comment on above: Performed By: #### L 100.0100, L500.4050, L3100.5000, L504.2610 ####[facility] [address] [place], [address] GAP 12 Normal 5-15 [facility] Comment on above: Performed By: #### L 100.0100, L500.4050, L3100.5000, L504.2610 ####[facility] [address] [place], [address] GFR/1.73 sq M.predicted among non-blacks MDRD (S/P/Bld) [Vol rate/Area] 77 mL/min/{1.73_m2} Normal >60 [facility] Comment on above: Result Comment: mL/m in/1.73m2 CKD-EPI Creatinine Equation (2020) Performed By: #### L 100.0100, L500.4050, L3100.5000, L504.2610 ####[facility] [address] [place], [address] Globulin (S) [Mass/Vol] 3.2 g/dL Normal 2.2-4.2 [facility] Comment on above: Performed By: #### L 100.0100, L500.4050, L3100.5000, L504.2610 ####[facility] [address] [place], [address] Glucose [Mass/Vol] 125 mg/dL High 70-99 [facility] Comment on above: Performed By: #### L 100.0100, L500.4050, L3100.5000, L504.2610 ####[facility] [address] [place], [address] Potassium [Moles/Vol] 3.7 mmol/L Normal 3.3-5.1 [facility] Comment on above: Performed By: #### L 100.0100, L500.4050, L3100.5000, L504.2610 ####[facility] [address] [place], [address] Sodium [Moles/Vol] 136 mmol/L Normal 133-145 [facility] Comment on above: Performed By: #### L 100.0100, L500.4050, L3100.5000, L504.2610 ####[facility] [address] [place], [address] T PROT 7.3 g/dL Normal 5.9-8.4 [facility] Comment on above: Performed By: #### L 100.0100, L500.4050, L3100.5000, L504.2610 ####[facility] [address] [place], [address] Urea nitrogen [Mass/Vol] 15 mg/dL Normal 4-19 [facility] Comment on above: Performed By: #### L 100.0100, L500.4050, L3100.5000, L504.2610 ####[facility] [address] [place], [address] Eosinophil percentageOrdered By: Carlos Bernal on 03-22-2025 Eosinophils/100 WBC (Bld) 1.4 % 0-5 [facility] Erythrocyte distribution wid th ratioOrdered By: Carlos Bernal on 03-22-2025 Erythrocyte distribution width (RBC) [Ratio] 12.3 % 11.6-14.6 [facility] Erythrocyte distribution wid th standard deviationOrdered By: Carlos Dolores on 03-22-2025 Erythrocyte distribution width (RBC) [Ratio] 39.8 fl 35.1-43.9 [facility] Glomerular filtration rate ( GFR) estimation/1.73 sq m using serum, plasma, or whole bOrdered By: Carlos Bernal on 03-22-2025 GFR/1.73 sq M.predicted among non-blacks MDRD (S/P/Bld) [Vol rate/Area] 77 mL/min/{1.73_m2} >60 [facility] Comment on above: mL/min/1.73m2 CKD-EP I Creatinine Equation (2020) Hematocrit Auto (Bld) [Volum e fraction]Ordered By: Carlos Bernal on 03-22-2025 Hematocrit (Bld) [Volume fraction] 32.9 % Low 37-47 [facility] Hemoglobin measurementOrdere d By: Carlos Bernal on 03-22-2025 Hemoglobin (Bld) [Mass/Vol] 10.4 g/dL Low 12.0-15.0 [facility] Immature granulocytes/100 WB C Auto (Bld)Ordered By: Carlos Bernal on 03-22-2025 Immature granulocytes/100 WBC (Bld) 0.300 % 0.0-0.9 [facility] Comment on above: IG% - Immature Granu locytes (promyelocytes, myelocytes and metamyelocytes) > 1% indicates that a LEFT SHIFT is Present. LDHon 03-22-2025 LDH 279 U/L High 84-246 [facility] Comment on above: Order Comment: 1 Performed By: #### L 100.0100, L500.4050, L3100.5000, L504.2610 ####[facility] [address] [place], [address] Laboratory - Chemistry and C hemistry - challengeOrdered By: Carlos Bernal on 03-22-2025 AST [Catalytic activity/Vol] 32 U/L <32 [facility] Lactate dehydrogenase (LDH) measurementOrdered By: Carlos Bernal on 03-22-2025 LDH [Catalytic activity/Vol] 279 U/L High 84-246 [facility] MCV (mean corpuscular volume ) determinationOrdered By: Carlos Bernal on 03-22-2025 MCV (RBC) [Entitic vol] 88.9 fL 81-99 [facility] Mean corpuscular hemoglobin (MCH) determinationOrdered By: Carlos Bernal on 03-22-2025 MCH (RBC) [Entitic mass] 28.1 pg 27.0-32.0 [facility] Mean corpuscular hemoglobin concentration (MCHC) determinationOrdered By: Carlos Bernal on 03-22-2025 MCHC (RBC) [Mass/Vol] 31.6 g/dL Low 32-36 [facility] Mean platelet volume determi nationOrdered By: Carlos Bernal on 03-22-2025 Platelet mean volume (Bld) [Entitic vol] 10.6 fL 6.2-12.0 [facility] Monocyte percentageOrdered B y: Carlos Bernal on 03-22-2025 Monocytes/100 WBC (Bld) 7.4 % 0-10 [facility] Neutrophil percentageOrdered By: Carlos Bernal on 03-22-2025 Neutrophils/100 WBC (Bld) 77.4 % High 47-70 [facility] Nucleated red blood cell per centageOrdered By: Carlos Bernal on 03-22-2025 Nucleated RBC/100 WBC (Bld) [Ratio] 0 % 0-5 [facility] Platelet countOrdered By: Emily Bernal on 03-22-2025 Platelets (Bld) [#/Vol] 314 10*3/uL 150-450 [facility] Potassium measurement (mass/ volume)Ordered By: Carlos Bernal on 03-22-2025 Potassium (Unsp spec) [Mass/Vol] 3.7 mmol/L 3.3-5.1 [facility] RBC Auto (Bld) [#/Vol]Ordere d By: Carlos Bernal on 03-22-2025 RBC (Bld) [#/Vol] 3.70 10*6/uL Low 4.2-5.4 [facility] Serum creatinine measurement (mass/volume)Ordered By: Carlos Bernal on 03-22-2025 Creatinine [Mass/Vol] 0.77 mg/dL 0.70-1.20 [facility] Serum globulin measurementOr dered By: Carlos Bernal on 03-22-2025 Globulin (S) [Mass/Vol] 3.2 g/dL 2.2-4.2 [facility] Serum glucose measurement (m ass/volume)Ordered By: Carlos Bernal on 03-22-2025 Glucose [Mass/Vol] 125 mg/dL High 70-99 [facility] Serum or plasma alanine thompson otransferase (ALT) measurementOrdered By: Carlos Bernal on 03-22-2025 ALT [Catalytic activity/Vol] 18 U/L <35 [facility] Serum or plasma albumin charlene urement (mass/volume)Ordered By: Carlos Bernal on 03-22-2025 Albumin [Mass/Vol] 4.1 g/dL 3.4-4.8 [facility] Serum or plasma albumin/glob ulin mass ratioOrdered By: Carlos Bernal on 03-22-2025 Albumin/Globulin [Mass ratio] 1.3 {ratio} 0.9-2.4 [facility] Serum or plasma alkaline dameon sphatase measurementOrdered By: Carlos Bernal on 03-22-2025 ALP [Catalytic activity/Vol] 84 U/L 35-104 [facility] Serum or plasma calcium charlene urement (mass/volume)Ordered By: Carlos Bernal on 03-22-2025 Calcium [Mass/Vol] 9.5 mg/dL 7.6-11.0 [facility] Serum or plasma urea nitroge n measurement (mass/volume)Ordered By: Carlos Bernal on 03-22-2025 Urea nitrogen [Mass/Vol] 15 mg/dL 4- [facility] Sodium levelOrdered By: Pedro Bernal on 03-22-2025 Sodium [Moles/Vol] 136 mmol/L 133-145 [facility] Total proteinOrdered By: Scot Bernal on 03-22-2025 Protein [Mass/Vol] 7.3 g/dL 5.9-8.4 [facility] White blood cell (WBC) count Ordered By: Carlos Bernal on 03-22-2025 WBC (Bld) [#/Vol] 6.5 10*3/uL 4.4-11.0 [facility] Hemoglobin A1con 02-27-2025 HbA1c (Bld) [Mass fraction] 5.6 % Normal <=5.6 [facility] Comment on above: Order Comment: Order Date: 02/27/25Order Info: [id number] - A1C Result Comment: Norm al < 5.7 % Prediabetic 5.7 - 6.4 % Diabetic >or= 6.5 % Please note range changes. Performed By: #### L 501.9985, L501.9520 ####[facility] [address] [place], [address] Hemoglobin A1c percentageOrd ered By: Lela Interiano on 02-27-2025 HbA1c (Bld) [Mass fraction] 5.6 % <5.7 [facility] Comment on above: Normal < 5.7 % Predi abetic 5.7 - 6.4 % Diabetic >or= 6.5 % Please note range changes. TSH DL <= 0.005 mIU/L QnOrde red By: Lela Interiano on 02-27-2025 TSH Qn 0.144 uIU/mL Low 0.300-4.200 [facility] Thyroid Stim Hormone (TSH)on 02-27-2025 TSH 0.144 uIU/mL Low 0.300-4.200 [facility] Comment on above: Order Comment: Order Date: 02/27/25Order Info: [id number] - TSH Performed By: #### L 501.9985, L501.9520 ####[facility] [address] [place], [place], [address] Stress Reporton 02-07-2025 Stress Report Normal [facility] Echo Completeon 02-03-2025 Echo Complete Normal [facility] 12 Lead EKG performed by [facility] on 01-11-2025 12 Lead EKG performed by [facility] Normal [facility] Cardiology Visit Reporton Cardiology Visit Report Normal [facility] TSH DL <= 0.005 mIU/L QnOrde red By: Paola Corona on 12-20-2024 Thyroid Stimulating Hormone (TSH) 0.321 uIU/mL 0.300-4.200 [facility] TSH Qn 0.321 uIU/mL 0.300-4.200 [facility] Thyroid Stim Hormone (TSH)on 12-20-2024 TSH 0.321 uIU/mL Normal 0.300-4.200 [facility] Comment on above: Order Comment: Order Date: 10/25/24Order Info: [id number] - TSH Performed By: #### L 501.9520 ####[facility] [address] [place], [place], [address] Absolute neutrophil countOrd ered By: Paola Corona on 10-24-2024 Neutrophils (Bld) [#/Vol] 7.7 10*3/uL 2.0-7.7 [facility] Albumin to globulin ratioOrd ered By: Paola Corona on 10-24-2024 Albumin/Globulin [Mass ratio] 1.0 {ratio} 0.9-2.4 [facility] Basophil percentageOrdered B y: Paola Corona on 10-24-2024 Basophils/100 WBC (Bld) 0.5 % 0-1 [facility] Bilirubin, totalOrdered By: Paola Corona on 10-24-2024 Bilirubin [Mass/Vol] 0.20 mg/dL 0.20-1.00 [facility] Comment on above: For patients on eltr ombopag therapy, use of Dimension [place] TBIL is not recommended. Blood urea nitrogen (BUN)/cr eatinine ratioOrdered By: Paola Corona on 10-24-2024 Urea nitrogen/Creatinine [Mass ratio] 17.8 mg/mg 10- [facility] CBC W/Diff, Automatedon 10-12 Absolute Lymph 1.01 X10 3/uL Normal 0.83-4.51 [facility] Comment on above: Performed By: #### L 501.9520, L500.4050, L100.0100 ####[facility] [address] [place], [address] Absolute Neut 7.7 X10 3/uL Normal 2.0-7.7 [facility] Comment on above: Performed By: #### L 501.9520, L500.4050, L100.0100 ####[facility] [address] [place], [address] Basophils/100 WBC (Bld) 0.5 % Normal 0-1 [facility] Comment on above: Performed By: #### L 501.9520, L500.4050, L100.0100 ####[facility] [address] [place], [address] Eosinophils/100 WBC (Bld) 0.4 % Normal 0-5 [facility] Comment on above: Performed By: #### L 501.9520, L500.4050, L100.0100 ####[facility] [address] [place], [address] Erythrocyte distribution width (RBC) [Ratio] 12.0 % Normal 11.6-14.6 [facility] Comment on above: Performed By: #### L 501.9520, L500.4050, L100.0100 ####[facility] [address] [place], [address] Hematocrit (Bld) [Volume fraction] 37.3 % Normal 37-47 [facility] Comment on above: Performed By: #### L 501.9520, L500.4050, L100.0100 ####[facility] [address] [place], [address] Hemoglobin (Bld) [Mass/Vol] 12.2 g/dL Normal 12.0-15.0 [facility] Comment on above: Performed By: #### L 501.9520, L500.4050, L100.0100 ####[facility] [address] [place], [address] IG% 0.300 Normal 0.0-0.9 [facility] Comment on above: Result Comment: IG% - Immature Granulocytes (promyelocytes, myelocytes andmetamyelocytes) > 1% indicates that a LEFT SHIFT is Present. Performed By: #### L 501.9520, L500.4050, L100.0100 ####[facility] [address] [place], [address] Lymphocytes/100 WBC (Bld) 10.6 % Low 19-41 [facility] Comment on above: Performed By: #### L 501.9520, L500.4050, L100.0100 ####[facility] [address] [place], [address] MCH (RBC) [Entitic mass] 30.0 pg Normal 27.0-32.0 [facility] Comment on above: Performed By: #### L 501.9520, L500.4050, L100.0100 ####[facility] [address] [place], [address] MCHC (RBC) [Mass/Vol] 32.7 g/dL Normal 32-36 [facility] Comment on above: Performed By: #### L 501.9520, L500.4050, L100.0100 ####[facility] [address] [place], [address] MCV (RBC) [Entitic vol] 91.6 fL Normal 81-99 [facility] Comment on above: Performed By: #### L 501.9520, L500.4050, L100.0100 ####[facility] [address] [place], [address] Monocytes/100 WBC (Bld) 7.9 % Normal 0-10 [facility] Comment on above: Performed By: #### L 501.9520, L500.4050, L100.0100 ####[facility] [address] [place], [address] Neutrophils/100 WBC (Bld) 80.3 % High 47-70 [facility] Comment on above: Performed By: #### L 501.9520, L500.4050, L100.0100 ####[facility] [address] [place], [address] Nucleated RBC (Bld) [#/Vol] 0 10*3/uL Normal 0-5 [facility] Comment on above: Performed By: #### L 501.9520, L500.4050, L100.0100 ####[facility] [address] [place], [address] Platelet mean volume (Bld) [Entitic vol] 11.5 fL Normal 6.2-12.0 [facility] Comment on above: Performed By: #### L 501.9520, L500.4050, L100.0100 ####[facility] [address] [place], [address] Platelets (Bld) [#/Vol] 296 10*3/uL Normal 150-450 [facility] Comment on above: Performed By: #### L 501.9520, L500.4050, L100.0100 ####[facility] [address] [place], [address] RBC (Bld) [#/Vol] 4.07 10*6/uL Low 4.2-5.4 [facility] Comment on above: Performed By: #### L 501.9520, L500.4050, L100.0100 ####[facility] [address] [place], [address] RDW SD 40.2 fl Normal 35.1-43.9 [facility] Comment on above: Performed By: #### L 501.9520, L500.4050, L100.0100 ####[facility] [address] [place], [address] WBC (Bld) [#/Vol] 9.6 10*3/uL Normal 4.4-11.0 [facility] Comment on above: Performed By: #### L [id number], [id number], L100.0100 ####[facility] [address] [place], [address] Carbon dioxide measurementOr dered By: Paola Corona on 10-24-2024 CO2 [Moles/Vol] 26.0 mmol/L 21.0-32.0 [facility] Chloride measurementOrdered By: Paola Corona on 10-24-2024 Chloride [Moles/Vol] 106 mmol/L 98-107 [facility] Comprehensive Metabolic Prof ilon 10-24-2024 Albumin [Mass/Vol] 3.9 g/dL Normal 3.2-5.0 [facility] Comment on above: Performed By: #### L [id number], [id number], L100.0100 ####[facility] [address] [place], [address] Albumin/Globulin [Mass ratio] 1.0 {ratio} Normal 0.9-2.4 [facility] Comment on above: Performed By: #### L [id number], [id number], L100.0100 ####[facility] [address] [place], [address] ALK P 76 U/L Normal 45-117 [facility] Comment on above: Performed By: #### L [id number], [id number], [id number] ####[facility] [address] [place], [address] ALT [Catalytic activity/Vol] 27 U/L Normal 13-56 [facility] Comment on above: Performed By: #### L [id number], [id number], [id number] ####[facility] [address] [place], [address] AST [Catalytic activity/Vol] 26 U/L Normal 15-37 [facility] Comment on above: Performed By: #### L [id number], [id number], L100.0100 ####[facility] [address] [place], [address] Bilirubin [Mass/Vol] 0.20 mg/dL Normal 0.20-1.00 [facility] Comment on above: Result Comment: For patients on eltrombopag therapy, use of Dimension [place] TBIL is not recommended. Performed By: #### L [id number], [id number], L100.0100 ####[facility] [address] [place], [address] BUN/CRE 17.8 RATIO Normal 10-20 [facility] Comment on above: Performed By: #### L [id number], [id number], L100.0100 ####[facility] [address] [place], [address] CA,Total 9.4 mg/dL Normal 8.5-10.1 [facility] Comment on above: Performed By: #### L [id number], [id number], L100.0100 ####[facility] [address] [place], [address] Chloride [Moles/Vol] 106 mmol/L Normal 98-107 [facility] Comment on above: Performed By: #### L [id number], [id number], L100.0100 ####[facility] [address] [place], [address] CO2 [Moles/Vol] 26.0 mmol/L Normal 21.0-32.0 [facility] Comment on above: Performed By: #### L [id number], [id number], L100.0100 ####[facility] [address] [place], [address] Creatinine [Mass/Vol] 0.73 mg/dL Normal 0.55-1.02 [facility] Comment on above: Result Comment: The validity of the calculated GFR GFRAA in patients over70 years has not been determined. Clinical correlation isessential. Performed By: #### L [id number], [id number], L100.0100 ####[facility] [address] [place], [address] EST GFR - AA 98 mL/min Normal >60 [facility] Comment on above: Result Comment: Afri can Afghan GFR Calc Performed By: #### L [id number], [id number], L100.0100 ####[facility] [address] [place], [address] GAP 5 Normal 5-15 [facility] Comment on above: Performed By: #### L [id number], [id number], L100.0100 ####[facility] [address] [place], [address] GFR/1.73 sq M.predicted among non-blacks MDRD (S/P/Bld) [Vol rate/Area] 81 mL/min/{1.73_m2} Normal >60 [facility] Comment on above: Result Comment: Non- GFR Calc Performed By: #### L [id number], [id number], L100.0100 ####[facility] [address] [place], [address] Globulin (S) [Mass/Vol] 4.1 g/dL Normal 2.2-4.2 [facility] Comment on above: Performed By: #### L [id number], [id number], L100.0100 ####[facility] [address] [place], [address] Glucose [Mass/Vol] 104 mg/dL Normal 74-106 [facility] Comment on above: Result Comment: Fast ing Glucose result from 100 to 125 mg/dLsuggests IMPAIRED HOMEOSTASIS per A.D.A. criteria. Performed By: #### L [id number], [id number], L100.0100 ####[facility] [address] [place], [address] Potassium [Moles/Vol] 3.4 mmol/L Low 3.5-5.1 [facility] Comment on above: Performed By: #### L [id number], [id number], L100.0100 ####[facility] [address] [place], [address] Sodium [Moles/Vol] 136 mmol/L Normal 136-145 [facility] Comment on above: Performed By: #### L [id number], [id number], L100.0100 ####[facility] [address] [place], [address] T PROT 8.0 g/dL Normal 6.4-8.2 [facility] Comment on above: Performed By: #### L [id number], [id number], L100.0100 ####[facility] [address] [place], [address] Urea nitrogen [Mass/Vol] 13 mg/dL Normal 7-18 [facility] Comment on above: Performed By: #### L [id number], [id number], L100.0100 ####[facility] [address] [place], [address] Eosinophil percentageOrdered By: Paola Corona on 10-24-2024 Eosinophils/100 WBC (Bld) 0.4 % 0-5 [facility] Erythrocyte distribution wid th ratioOrdered By: Paola Corona on 10-24-2024 Erythrocyte distribution width (RBC) [Ratio] 12.0 % 11.6-14.6 [facility] Erythrocyte distribution wid th standard deviationOrdered By: Paola Corona on 10-24-2024 Erythrocyte distribution width (RBC) [Entitic vol] 40.2 fL 35.1-43.9 [facility] Estimated glomerular filtrat ion rate (GFR) AmericanOrdered By: Paola Corona on 10-24-2024 Estimated GFR (MDRD) Amer 98 mL/min >60 [facility] Comment on above: GFR Calc Glomerular filtration rate ( GFR) estimationOrdered By: Paola Corona on 10-24-2024 Estimated GFR (MDRD) Non-Af Amer 81 mL/min >60 [facility] Comment on above: Non- GFR Calc Glucose measurementOrdered B y: Paola Corona on 10-24-2024 Glucose [Mass/Vol] 104 mg/dL 74-106 [facility] Comment on above: Fasting Glucose resu lt from 100 to 125 mg/dL suggests IMPAIRED HOMEOSTASIS per A.D.A. criteria. Hematocrit Auto (Bld) [Volum e fraction]Ordered By: Paola Corona on 10-24-2024 Hematocrit (Bld) [Volume fraction] 37.3 % 37-47 [facility] Hemoglobin measurementOrdere d By: Paola Corona on 10-24-2024 Hemoglobin (Bld) [Mass/Vol] 12.2 g/dL 12.0-15.0 [facility] Immature granulocytes/100 WB C Auto (Bld)Ordered By: Paola Corona on 10-24-2024 Immature granulocytes/100 WBC (Bld) 0.300 % 0.0-0.9 [facility] Comment on above: IG% - Immature Granu locytes (promyelocytes, myelocytes and metamyelocytes) > 1% indicates that a LEFT SHIFT is Present. Laboratory - Chemistry and C hemistry - challengeOrdered By: Paola Corona on 10-24-2024 AST [Catalytic activity/Vol] 26 U/L 15-37 [facility] Lymphocytes Auto (Unsp spec) [#/Vol]Ordered By: Paola Corona on 10-24-2024 Lymphocytes (Bld) [#/Vol] 1.01 10*3/uL 0.83-4.51 [facility] Lymphocytes/100 WBC Auto (Un sp spec)Ordered By: Paola Corona on 10-24-2024 Lymphocytes/100 WBC (Bld) 10.6 % Low 19-41 [facility] MCV (mean corpuscular volume ) determinationOrdered By: Paola Corona on 10-24-2024 MCV (RBC) [Entitic vol] 91.6 fL 81-99 [facility] Mean corpuscular hemoglobin (MCH) determinationOrdered By: Paola Corona on 10-24-2024 MCH (RBC) [Entitic mass] 30.0 pg 27.0-32.0 [facility] Mean corpuscular hemoglobin concentration (MCHC) determinationOrdered By: Paola Corona on 10-24-2024 MCHC (RBC) [Mass/Vol] 32.7 g/dL 32-36 [facility] Mean platelet volume determi nationOrdered By: Paola Corona on 10-24-2024 Platelet mean volume (Bld) [Entitic vol] 11.5 fL 6.2-12.0 [facility] Monocyte percentageOrdered B y: Paola Corona on 10-24-2024 Monocytes/100 WBC (Bld) 7.9 % 0-10 [facility] Neutrophil percentageOrdered By: Paola Corona on 10-24-2024 Neutrophils/100 WBC (Bld) 80.3 % High 47-70 [facility] Nucleated red blood cell per centageOrdered By: Paola Corona on 10-24-2024 Nucleated RBC/100 WBC (Bld) [Ratio] 0 % 0-5 [facility] Platelet countOrdered By: Guerrero Corona on 10-24-2024 Platelets (Bld) [#/Vol] 296 10*3/uL 150-450 [facility] Potassium measurementOrdered By: Paola Corona on 10-24-2024 Potassium [Moles/Vol] 3.4 mmol/L Low 3.5-5.1 [facility] RBC Auto (Bld) [#/Vol]Ordere d By: Paola Corona on 10-24-2024 RBC (Bld) [#/Vol] 4.07 10*6/uL Low 4.2-5.4 [facility] Serum anion gap measurementO rdered By: Paola Corona on 10-24-2024 Anion gap [Moles/Vol] 5 mmol/L 5-15 [facility] Serum globulin measurementOr dered By: Paola Corona on 10-24-2024 Globulin (S) [Mass/Vol] 4.1 g/dL 2.2-4.2 [facility] Serum or plasma alanine thompson otransferase (ALT) measurementOrdered By: Paola Corona on 10-24-2024 ALT [Catalytic activity/Vol] 27 U/L 13-56 [facility] Serum or plasma albumin charlene urement (mass/volume)Ordered By: Paola Corona on 10-24-2024 Albumin [Mass/Vol] 3.9 g/dL 3.2-5.0 [facility] Serum or plasma alkaline dameon sphatase measurementOrdered By: Paola Corona on 10-24-2024 ALP [Catalytic activity/Vol] 76 U/L 45-117 [facility] Serum or plasma calcium charlene urement (mass/volume)Ordered By: Paola Corona on 10-24-2024 Calcium [Mass/Vol] 9.4 mg/dL 8.5-10.1 [facility] Serum or plasma creatinine m easurement (mass/volume)Ordered By: Paola Corona on 10-24-2024 Creatinine [Mass/Vol] 0.73 mg/dL 0.55-1.02 [facility] Comment on above: The validity of the calculated GFR & GFRAA in patients over 70 years has not been determined. Clinical correlation is essential. Serum or plasma urea nitroge n measurement (mass/volume)Ordered By: Paola Corona on 10-24-2024 Urea nitrogen [Mass/Vol] 13 mg/dL 7-18 [facility] Sodium levelOrdered By: Paola Corona on 10-24-2024 Sodium [Moles/Vol] 136 mmol/L 136-145 [facility] TSH QnOrdered By: Paola hopkins on 10-24-2024 Thyroid Stimulating Hormone (TSH) 6.580 uIU/mL High 0.358-3.740 [facility] Thyroid Stim Hormone (TSH)on 10-24-2024 TSH 6.580 uIU/mL High 0.358-3.740 [facility] Comment on above: Performed By: #### L [id number], [id number], L100.0100 ####[facility] [address] [place], [place], [id number] Total proteinOrdered By: Paola Corona on 10-24-2024 Protein [Mass/Vol] 8.0 g/dL 6.4-8.2 [facility] White blood cell (WBC) count Ordered By: Paola Corona on 10-24-2024 WBC (Bld) [#/Vol] 9.6 10*3/uL 4.4-11.0 [facility] Urgent Care Visit Reporton 0 10-21-2024 Urgent Care Visit Report Normal [facility] Culture, urineOrdered By: Damaris Parrish on 02-04-2024 Bacteria identified Cx Nom (U) Streptococcus mitis/ oralis [facility] Laboratory - Chemistry and C hemistry - challengeon 02-04-2024 Bilirubin Ql (U) Negative [facility] Glucose Ql (U) Negative [facility] Ketones Ql (U) Negative [facility] pH (U) 6.0 [pH] [facility] Specific gravity (U) [Rel density] 1.010 [facility] Urobilinogen (U) [Mass/Vol] Negative [facility] Laboratory - Hematology and Cell countson 02-04-2024 Hemoglobin Ql (U) Negative [facility] Laboratory - Specimen inform ationon 02-04-2024 Clarity (U) Clear [facility] Color (U) YELLOW [facility] Laboratory - Urinalysison Nitrite Ql (U) Negative [facility] Protein Ql (U) Negative [facility] No Panel Informationon 02-03 Urine Leukocytes Negatve [facility] Urine Non-Hemolyzed Blood [facility] Absolute lymphocyte countOrd ered By: Carlos Bernal on 03-30-2023 Lymphocytes Auto (Unsp spec) [#/Vol] 0.90 10*3/uL 0.83-4.51 [facility] Basophil percentageOrdered B y: Carlos Bernal on 03-30-2023 Basophils/100 WBC (Bld) 0.5 % 0-1 [facility] Bilirubin [Mass/Vol] 0.30 mg/dL 0.20-1.00 [facility] Comment on above: For patients on eltr ombopag therapy, use of Dimension [place] TBIL is not recommended. Chloride [Moles/Vol] 105 mmol/L 98-107 [facility] Eosinophils/100 WBC (Bld) 1.0 % 0-5 [facility] Glucose [Mass/Vol] 100 mg/dL 74-106 [facility] Comment on above: Fasting Glucose resu lt from 100 to 125 mg/dL suggests IMPAIRED HOMEOSTASIS per A.D.A. criteria. LDH [Catalytic activity/Vol] 287 U/L 84-246 [facility] Neutrophils (Bld) [#/Vol] 2.7 10*3/uL 2.0-7.7 [facility] Neutrophils/100 WBC (Bld) 68.4 % 47-70 [facility] Potassium [Moles/Vol] 4.1 mmol/L 3.5-5.1 [facility] Protein [Mass/Vol] 8.0 g/dL 6.4-8.2 [facility] Sodium [Moles/Vol] 136 mmol/L 136-145 [facility] WBC (Bld) [#/Vol] 3.9 10*3/uL 4.4-11.0 [facility] Blood erythrocytes count (nu mber/volume)Ordered By: Carlos Bernal on 03-30-2023 RBC (Bld) [#/Vol] 3.98 10*6/uL 4.2-5.4 [facility] Blood hemoglobin measurement (mass/volume)Ordered By: Carlos Bernal on 03-30-2023 Hemoglobin (Bld) [Mass/Vol] 11.8 g/dL 12.0-15.0 [facility] Blood lymphocytes/100 leukoc ytesOrdered By: [facility] on 03-30-2023 Lymphocytes/100 WBC (Bld) 23.1 % 19-41 [facility] Blood monocytes/100 leukocyt esOrdered By: [facility] on 03-30-2023 Monocytes/100 WBC (Bld) 6.7 % 0-10 [facility] Blood platelet mean volumeOr dered By: Carlos Greenberg on 03-30-2023 Platelet mean volume (Bld) [Entitic vol] 11.3 fL 6.2-12.0 [facility] Determination of erythrocyte mean corpuscular volume (MCV)Ordered By: [facility] on 03-30-2023 MCV (RBC) [Entitic vol] 93.7 fL 81-99 [facility] Hematocrit Auto (Bld) [Volum e fraction]Ordered By: Carlos Dionicio on 03-30-2023 Hematocrit (Bld) [Volume fraction] 37.3 % 37-47 [facility] Laboratory - Chemistry and C hemistry - challengeOrdered By: Aurora Dionicio on 03-30-2023 ALP [Catalytic activity/Vol] 62 U/L 45-117 [facility] ALT [Catalytic activity/Vol] 35 U/L 13-56 [facility] CO2 [Moles/Vol] 26.0 mmol/L 21.0-32.0 [facility] Globulin (S) [Mass/Vol] 3.9 g/dL 2.2-4.2 [facility] Urea nitrogen/Creatinine [Mass ratio] 20.2 mg/mg 10-20 [facility] Laboratory - Hematology and Cell countsOrdered By: Aurora Dionicio on 03-30-2023 Erythrocyte distribution width (RBC) [Entitic vol] 42.2 fL 35.1-43.9 [facility] Erythrocyte distribution width (RBC) [Ratio] 12.3 % 11.6-14.6 [facility] Immature granulocytes/100 WBC (Bld) 0.300 % 0.0-0.9 [facility] Comment on above: IG% - Immature Granu locytes (promyelocytes, myelocytes and metamyelocytes) > 1% indicates that a LEFT SHIFT is Present. MCH (RBC) [Entitic mass] 29.6 pg 27.0-32.0 [facility] Nucleated RBC/100 WBC (Bld) [Ratio] 0 % [facility]5 [facility] [Mass/Vol]Or dered By: Carlos Bernal on 03-30-2023 MCHC (RBC) [Mass/Vol] 31.6 g/dL 32-36 [facility] No Panel InformationOrdered By: Carlos Bernal on 03-30-2023 CA 125 Antigen 21.8 U/mL 0.0-38.1 [facility] Comment on above: [facility] El ectrochemiluminescence Immunoassay(ECLIA)Values obtained with different assay methods or kits cannotbe used interchangeably. Results cannot be interpreted asabsolute evidence of the presence or absence of malignantdisease.Performed at: [facility] [address] [id number] Director: Guero Smyth PhD, Phone: [phone] Estimated Creatinine Clearance Calc 44.61 ml/min [facility] Estimated GFR (MDRD) Amer 78 mL/min >60 [facility] Comment on above: GFR Calc Estimated GFR (MDRD) Non-Af Amer 64 mL/min >60 [facility] Comment on above: Non- GFR Calc Reactive Lymphocytes RARE [facility] Platelets bldOrdered By: Scot Bernal on 03-30-2023 Platelets (Bld) [#/Vol] 237 10*3/uL 150-450 [facility] Serum or plasma albumin charlene urement (mass/volume)Ordered By: Carlos Bernal on 03-30-2023 Albumin [Mass/Vol] 4.1 g/dL 3.2-5.0 [facility] Serum or plasma albumin/glob ulin mass ratioOrdered By: Carlos Bernal on 03-30-2023 Albumin/Globulin [Mass ratio] 1.1 {ratio} 0.9-2.4 [facility] Serum or plasma calcium charlene urement (mass/volume)Ordered By: Carlos Bernal on 03-30-2023 Calcium [Mass/Vol] 9.8 mg/dL 8.5-10.1 [facility] Serum or plasma creatinine m easurement (mass/volume)Ordered By: Carlos Bernal on 03-30-2023 Creatinine [Mass/Vol] 0.89 mg/dL 0.55-1.02 [facility] Comment on above: The validity of the calculated GFR & GFRAA in patients over 70 years has not been determined. Clinical correlation is essential. Serum or plasma urea nitroge n measurement (mass/volume)Ordered By: Carlos Bernal on 03-30-2023 Urea nitrogen [Mass/Vol] 18 mg/dL 7-18 [facility] Thin prep Papanicolaou smear with manual screeningOrdered By: Carlos Bernal on 03-30-2023 Thin prep Papanicolaou smear with manual screening 33 U/L 15-37 [facility] Thin prep Papanicolaou smear with manual screening 5 5-15 [facility] Absolute lymphocyte countOrd ered By: Dr. Bernal on 03-16-2023 Lymphocytes Auto (Unsp spec) [#/Vol] 0.80 10*3/uL 0.83-4.51 [facility] Basophil percentageOrdered B y: Dr. Bernal on 03-16-2023 Basophils/100 WBC (Bld) 0.8 % 0-1 [facility] Bilirubin [Mass/Vol] 0.40 mg/dL 0.20-1.00 [facility] Comment on above: For patients on eltr ombopag therapy, use of Dimension [place] TBIL is not recommended. Chloride [Moles/Vol] 108 mmol/L 98-107 [facility] Eosinophils/100 WBC (Bld) 1.8 % 0-5 [facility] Glucose [Mass/Vol] 90 mg/dL 74-106 [facility] LDH [Catalytic activity/Vol] 300 U/L 84-246 [facility] Neutrophils (Bld) [#/Vol] 3.6 10*3/uL 2.0-7.7 [facility] Neutrophils/100 WBC (Bld) 72.1 % 47-70 [facility] Potassium [Moles/Vol] 3.3 mmol/L 3.5-5.1 [facility] Protein [Mass/Vol] 8.4 g/dL 6.4-8.2 [facility] Sodium [Moles/Vol] 140 mmol/L 136-145 [facility] WBC (Bld) [#/Vol] 4.9 10*3/uL 4.4-11.0 [facility] Blood erythrocytes count (nu mber/volume)Ordered By: Dr. Bernal on 03-16-2023 RBC (Bld) [#/Vol] 4.04 10*6/uL 4.2-5.4 [facility] Blood hemoglobin measurement (mass/volume)Ordered By: Dr. Bernal on 03-16-2023 Hemoglobin (Bld) [Mass/Vol] 12.0 g/dL 12.0-15.0 [facility] Blood lymphocytes/100 leukoc ytesOrdered By: Dr. Bernal on 03-16-2023 Lymphocytes/100 WBC (Bld) 16.2 % 19-41 [facility] Blood monocytes/100 leukocyt esOrdered By: Dr. Bernal on 03-16-2023 Monocytes/100 WBC (Bld) 8.9 % 0-10 [facility] Blood platelet mean volumeOr dered By: Dr. Bernal on 03-16-2023 Platelet mean volume (Bld) [Entitic vol] 12.9 fL 6.2-12.0 [facility] Determination of erythrocyte mean corpuscular volume (MCV)Ordered By: Dr. Bernal on 03-16-2023 MCV (RBC) [Entitic vol] 95.3 fL 81-99 [facility] Hematocrit Auto (Bld) [Volum e fraction]Ordered By: Dr. Bernal on 03-16-2023 Hematocrit (Bld) [Volume fraction] 38.5 % 37-47 [facility] Laboratory - Chemistry and C hemistry - challengeOrdered By: Dr. Bernal on 03-16-2023 ALP [Catalytic activity/Vol] 61 U/L 45-117 [facility] ALT [Catalytic activity/Vol] 30 U/L 13-56 [facility] CO2 [Moles/Vol] 26.0 mmol/L 21.0-32.0 [facility] Globulin (S) [Mass/Vol] 4.4 g/dL 2.2-4.2 [facility] Urea nitrogen/Creatinine [Mass ratio] 22.6 mg/mg 10-20 [facility] Laboratory - Hematology and Cell countsOrdered By: Dr. Bernal on 03-16-2023 Erythrocyte distribution width (RBC) [Entitic vol] 44.4 fL 35.1-43.9 [facility] Erythrocyte distribution width (RBC) [Ratio] 12.7 % 11.6-14.6 [facility] Immature granulocytes/100 WBC (Bld) 0.200 % 0.0-0.9 [facility] Comment on above: IG% - Immature Granu locytes (promyelocytes, myelocytes and metamyelocytes) > 1% indicates that a LEFT SHIFT is Present. MCH (RBC) [Entitic mass] 29.7 pg 27.0-32.0 [facility] Nucleated RBC/100 WBC (Bld) [Ratio] 0 % 0-5 [facility] MCHC Auto (RBC) [Mass/Vol]Or dered By: Dr. Bernal on 03-16-2023 MCHC (RBC) [Mass/Vol] 31.2 g/dL 32-36 [facility] No Panel InformationOrdered By: Dr. Bernal on 03-16-2023 CA 125 Antigen 21.6 U/mL 0.0-38.1 [facility] Comment on above: [facility] El ectrochemiluminescence Immunoassay(ECLIA)Values obtained with different assay methods or kits cannotbe used interchangeably. Results cannot be interpreted asabsolute evidence of the presence or absence of malignantdisease.Performed at: [facility] [id number] Director: Guero Smyth PhD, Phone: [phone] Estimated GFR (MDRD) Amer 89 mL/min >60 [facility] Comment on above: GFR Calc Estimated GFR (MDRD) Non-Af Amer 73 mL/min >60 [facility] Comment on above: Non- GFR Calc Platelets bldOrdered By: Dr. Bernal on 03-16-2023 Platelets (Bld) [#/Vol] 216 10*3/uL 150-450 [facility] Serum or plasma albumin charlene urement (mass/volume)Ordered By: Dr. Bernal on 03-16-2023 Albumin [Mass/Vol] 4.0 g/dL 3.2-5.0 [facility] Serum or plasma albumin/glob ulin mass ratioOrdered By: Dr. Bernal on 03-16-2023 Albumin/Globulin [Mass ratio] 0.9 {ratio} 0.9-2.4 [facility] Serum or plasma calcium charlene urement (mass/volume)Ordered By: Dr. Bernal on 03-16-2023 Calcium [Mass/Vol] 9.9 mg/dL 8.5-10.1 [facility] Serum or plasma creatinine m easurement (mass/volume)Ordered By: Dr. Bernal on 03-16-2023 Creatinine [Mass/Vol] 0.80 mg/dL 0.55-1.02 [facility] Comment on above: The validity of the calculated GFR & GFRAA in patients over 70 years has not been determined. Clinical correlation is essential. Serum or plasma urea nitroge n measurement (mass/volume)Ordered By: Dr. Bernal on 03-16-2023 Urea nitrogen [Mass/Vol] 18 mg/dL 7-18 [facility] Thin prep Papanicolaou smear with manual screeningOrdered By: Dr. Bernal on 03-16-2023 Thin prep Papanicolaou smear with manual screening 31 U/L 15-37 [facility] Thin prep Papanicolaou smear with manual screening 6 5-15 [facility] Absolute lymphocyte counton 06-05-2022 Lymphocytes Auto (Unsp spec) [#/Vol] 1.18 10*3/uL 0.83-4.51 [facility] Work Phone: Basophil percentageon 2021 Basophil percentage 0 SEEN /hpf 0-5 [facility] Work Phone: Basophils/100 WBC (Bld) 0.4 % 0-1 [facility] Work Phone: Bilirubin [Mass/Vol] 0.70 mg/dL 0.20-1.00 [facility] Work Phone: [phone] Comment on above: For patients on eltr ombopag therapy, use of Dimension [place] TBIL is not recommended. Chloride [Moles/Vol] 108 mmol/L 98-107 [facility] Work Phone: Eosinophils/100 WBC (Bld) 1.5 % 0-5 [facility] Work Phone: Glucose [Mass/Vol] 113 mg/dL 74-106 [facility] Work Phone: Comment on above: Fasting Glucose resu lt from 100 to 125 mg/dL suggests IMPAIRED HOMEOSTASIS per A.D.A. criteria. Lactate [Moles/Vol] 1.6 mmol/L 0.4-2.0 [facility] Work Phone: Neutrophils (Bld) [#/Vol] 3.1 10*3/uL 2.0-7.7 [facility] Work Phone: [phone] Neutrophils/100 WBC (Bld) 65.7 % 47-70 [facility] Work Phone: [phone] Potassium [Moles/Vol] 3.3 mmol/L 3.5-5.1 [facility] Work Phone: [phone] Protein [Mass/Vol] 7.6 g/dL 6.4-8.2 [facility] Work Phone: Sodium [Moles/Vol] 141 mmol/L 136-145 [facility] Work Phone: WBC (Bld) [#/Vol] 4.8 10*3/uL 4.4-11.0 [facility] Work Phone: Bilirubin Test strip Ql (U)o n 06-05-2022 Bilirubin Ql (U) Negative Negative [facility] Work Phone: Blood erythrocytes count (nu mber/volume)on 06-05-2022 RBC (Bld) [#/Vol] 4.09 10*6/uL 4.2-5.4 [facility] Work Phone: Blood hemoglobin measurement (mass/volume)on 06-05-2022 Hemoglobin (Bld) [Mass/Vol] 12.3 g/dL 12.0-15.0 [facility] Work Phone: Blood lymphocytes/100 leukoc yteson 06-05-2022 Lymphocytes/100 WBC (Bld) 24.8 % 19-41 [facility] Work Phone: Blood monocytes/100 leukocyt eson 06-05-2022 Monocytes/100 WBC (Bld) 7.6 % 0-10 [facility] Work Phone: Blood platelet mean volumeon 06-05-2022 Platelet mean volume (Bld) [Entitic vol] 11.6 fL 6.2-12.0 [facility] Work Phone: Determination of erythrocyte mean corpuscular volume (MCV)on 06-05-2022 MCV (RBC) [Entitic vol] 91.2 fL 81-99 [facility] Work Phone: Hematocrit Auto (Bld) [Volum e fraction]on 06-05-2022 Hematocrit (Bld) [Volume fraction] 37.3 % 37-47 [facility] Work Phone: INR in Blood by Coagulation assayon 06-05-2022 INR Coag (Bld) [Relative time] 1.0 {INR} [facility] Work Phone: Ketones Test strip Ql (U)on 06-05-2022 Ketones Ql (U) 5 mg/dl Negative [facility] Work Phone: Laboratory - Chemistry and C hemistry - challengeon 06-05-2022 ALP [Catalytic activity/Vol] 72 U/L 45-117 [facility] Work Phone: ALT [Catalytic activity/Vol] 24 U/L 13-56 [facility] Work Phone: CO2 [Moles/Vol] 24.0 mmol/L 21.0-32.0 [facility] Work Phone: Globulin (S) [Mass/Vol] 3.4 g/dL 2.2-4.2 [facility] Work Phone: Urea nitrogen/Creatinine [Mass ratio] 13.2 mg/mg 10-20 [facility] Work Phone: Laboratory - Coagulationon 0 06-05-2022 aPTT Coag (Bld) [Time] 24.3 s 24.1-36.2 [facility] Work Phone: PT Coag (PPP) [Time] 12.7 s 11.7-14.9 [facility] Work Phone: Laboratory - Hematology and Cell countson 06-05-2022 Erythrocyte distribution width (RBC) [Entitic vol] 39.8 fL 35.1-43.9 [facility] Work Phone: Erythrocyte distribution width (RBC) [Ratio] 11.9 % 11.6-14.6 [facility] Work Phone: Immature granulocytes/100 WBC (Bld) 0.000 % 0.0-0.9 [facility] Work Phone: Comment on above: IG% - Immature Granu locytes (promyelocytes, myelocytes and metamyelocytes) > 1% indicates that a LEFT SHIFT is Present. MCH (RBC) [Entitic mass] 30.1 pg 27.0-32.0 [facility] Work Phone: Nucleated RBC/100 WBC (Bld) [Ratio] 0 % 0-5 [facility] Work Phone: MCHC Auto (RBC) [Mass/Vol]on 06-05-2022 MCHC (RBC) [Mass/Vol] 33.0 g/dL 32-36 [facility] Work Phone: Mucus LM Ql (Urine sed)on Mucus Ql (Urine sed) 0 SEEN /hpf [facility] Work Phone: Nitrite Test strip Ql (U)on 06-05-2022 Nitrite Ql (U) Negative Negative [facility] Work Phone: No Panel Informationon 06-05 Estimated Creatinine Clearance Calc 47.26 ml/min [facility] Work Phone: Estimated GFR (MDRD) Amer 84 mL/min >60 [facility] Work Phone: Comment on above: GFR Calc Estimated GFR (MDRD) Non-Af Amer 70 mL/min >60 [facility] Work Phone: Comment on above: Non- GFR Calc Troponin I High Sensitivity 7 pg/mL 3.0-54.0 [facility] Work Phone: Comment on above: Please Note: New Neelima t Units and Gender Specific Reference Ranges. For more information see Policy Stat Procedure [place] High Sensitivity Troponin (TNIH) and attachments. Platelets bldon 06-05-2022 Platelets (Bld) [#/Vol] 228 10*3/uL 150-450 [facility] Work Phone: Protein Test strip Ql (U)on 06-05-2022 Protein Ql (U) Negative Negative [facility] Work Phone: Serum or plasma albumin charlene urement (mass/volume)on 06-05-2022 Albumin [Mass/Vol] 4.2 g/dL 3.2-5.0 [facility] Work Phone: Serum or plasma albumin/glob ulin mass ratioon 06-05-2022 Albumin/Globulin [Mass ratio] 1.2 {ratio} 0.9-2.4 [facility] Work Phone: Serum or plasma calcium charlene urement (mass/volume)on 06-05-2022 Calcium [Mass/Vol] 9.5 mg/dL 8.5-10.1 [facility] Work Phone: Serum or plasma creatinine m easurement (mass/volume)on 06-05-2022 Creatinine [Mass/Vol] 0.84 mg/dL 0.55-1.02 [facility] Work Phone: Comment on above: The validity of the calculated GFR & GFRAA in patients over 70 years has not been determined. Clinical correlation is essential. Serum or plasma urea nitroge n measurement (mass/volume)on 06-05-2022 Urea nitrogen [Mass/Vol] 11 mg/dL 7-18 [facility] Work Phone: Squamous epithelial cells de tection in urine sediment by light microscopyon 06-05-2022 Epithelial cells.squamous LM Ql (Urine sed) 0 SEEN /hpf 5-10 [facility] Work Phone: Thin prep Papanicolaou smear with manual screeningon 06-05-2022 Thin prep Papanicolaou smear with manual screening 24 U/L 15-37 [facility] Work Phone: Thin prep Papanicolaou smear with manual screening 9 5-15 [facility] Work Phone: Urine blood detectionon 05-13 RBC Ql (U) Negative Negative [facility] Work Phone: RBC Ql (U) 0 SEEN /hpf 0-5 [facility] Work Phone: Urine clarityon 06-05-2022 Clarity (U) Clear Clear [facility] Work Phone: Urine color determinationon 06-05-2022 Color (U) Yellow Yellow [facility] Work Phone: Urine glucose detectionon Glucose Ql (U) Normal mg/dl Normal [facility] Work Phone: Urine leukocyte esterase det ection by dipstickon 06-05-2022 Leukocyte esterase Test strip Ql (U) 25 /ul Negative [facility] Work Phone: Urine pHon 06-05-2022 pH (U) 8.0 [pH] 5.0 - 8.0 [facility] Work Phone: Urine sediment bacteria coun t by microscopy (number/high power field)on 06-05-2022 Bacteria LM.HPF (Urine sed) [#/Area] 0 /[HPF] None Seen [facility] Work Phone: Urine specific gravity measu rementon 06-05-2022 Specific gravity (U) [Rel density] 1.015 1.002-1.030 [facility] Work Phone: Urobilinogen Auto test strip Ql (U)on 06-05-2022 Urobilinogen Ql (U) Normal mg/dl Normal [facility] Work Phone: Absolute lymphocyte counton 03-12-2022 Lymphocytes Auto (Unsp spec) [#/Vol] 0.97 10*3/uL 0.83-4.51 [facility] Work Phone: Basophil percentageon 2021 Basophils/100 WBC (Bld) 1.1 % 0-1 [facility] Work Phone: Bilirubin [Mass/Vol] 0.40 mg/dL 0.20-1.00 [facility] Work Phone: Comment on above: For patients on eltr ombopag therapy, use of Dimension [place] TBIL is not recommended. Chloride [Moles/Vol] 108 mmol/L 98-107 [facility] Work Phone: Eosinophils/100 WBC (Bld) 2.9 % 0-5 [facility] Work Phone: Glucose [Mass/Vol] 116 mg/dL 74-106 [facility] Work Phone: [phone] Comment on above: Fasting Glucose resu lt from 100 to 125 mg/dL suggests IMPAIRED HOMEOSTASIS per A.D.A. criteria. Neutrophils (Bld) [#/Vol] 2.3 10*3/uL 2.0-7.7 [facility] Work Phone: Neutrophils/100 WBC (Bld) 60.7 % 47-70 [facility] Work Phone: Potassium [Moles/Vol] 3.7 mmol/L 3.5-5.1 [facility] Work Phone: Protein [Mass/Vol] 7.2 g/dL 6.4-8.2 [facility] Work Phone: [phone] Sodium [Moles/Vol] 140 mmol/L 136-145 [facility] Work Phone: [phone] WBC (Bld) [#/Vol] 3.8 10*3/uL 4.4-11.0 [facility] Work Phone: Blood erythrocytes count (nu mber/volume)on 03-12-2022 RBC (Bld) [#/Vol] 3.65 10*6/uL 4.2-5.4 [facility] Work Phone: Blood hemoglobin measurement (mass/volume)on 03-12-2022 Hemoglobin (Bld) [Mass/Vol] 11.0 g/dL 12.0-15.0 [facility] Work Phone: Blood lymphocytes/100 leukoc yteson 03-12-2022 Lymphocytes/100 WBC (Bld) 25.5 % 19-41 [facility] Work Phone: Blood monocytes/100 leukocyt eson 03-12-2022 Monocytes/100 WBC (Bld) 9.5 % 0-10 [facility] Work Phone: Blood platelet mean volumeon 03-12-2022 Platelet mean volume (Bld) [Entitic vol] 11.0 fL 6.2-12.0 [facility] Work Phone: Determination of erythrocyte mean corpuscular volume (MCV)on 03-12-2022 MCV (RBC) [Entitic vol] 92.6 fL 81-99 [facility] Work Phone: Hematocrit Auto (Bld) [Volum e fraction]on 03-12-2022 Hematocrit (Bld) [Volume fraction] 33.8 % 37-47 [facility] Work Phone: Laboratory - Chemistry and C hemistry - challengeon 03-12-2022 ALP [Catalytic activity/Vol] 84 U/L 45-117 [facility] Work Phone: ALT [Catalytic activity/Vol] 31 U/L 13-56 [facility] Work Phone: CO2 [Moles/Vol] 25.0 mmol/L 21.0-32.0 [facility] Work Phone: Globulin (S) [Mass/Vol] 3.5 g/dL 2.2-4.2 [facility] Work Phone: Urea nitrogen/Creatinine [Mass ratio] 15.7 mg/mg 10-20 [facility] Work Phone: Laboratory - Hematology and Cell countson 03-12-2022 Erythrocyte distribution width (RBC) [Entitic vol] 41.8 fL 35.1-43.9 [facility] Work Phone: Erythrocyte distribution width (RBC) [Ratio] 12.2 % 11.6-14.6 [facility] Work Phone: Immature granulocytes/100 WBC (Bld) 0.300 % 0.0-0.9 [facility] Work Phone: Comment on above: IG% - Immature Granu locytes (promyelocytes, myelocytes and metamyelocytes) > 1% indicates that a LEFT SHIFT is Present. MCH (RBC) [Entitic mass] 30.1 pg 27.0-32.0 [facility] Work Phone: Nucleated RBC/100 WBC (Bld) [Ratio] 0 % 0-5 [facility] Work Phone: MCHC Auto (RBC) [Mass/Vol]on 03-12-2022 MCHC (RBC) [Mass/Vol] 32.5 g/dL 32-36 [facility] Work Phone: No Panel Informationon 03-12 CA 125 Antigen 13.5 U/mL 0.0-38.1 [facility] Work Phone: Comment on above: [employer] El ectrochemiluminescence Immunoassay(ECLIA)Values obtained with different assay methods or kits cannotbe used interchangeably. Results cannot be interpreted asabsolute evidence of the presence or absence of malignantdisease.Performed at: [address] [id number] Director: Guero Smyth PhD, Phone: [phone] Estimated Creatinine Clearance Calc 48.64 ml/min [facility] Work Phone: Estimated GFR (MDRD) Amer 85 mL/min >60 [facility] Work Phone: Comment on above: GFR Calc Estimated GFR (MDRD) Non-Af Amer 71 mL/min >60 [facility] Work Phone: Comment on above: Non- GFR Calc Platelets bldon 03-12-2022 Platelets (Bld) [#/Vol] 212 10*3/uL 150-450 [facility] Work Phone: Serum or plasma albumin charlene urement (mass/volume)on 03-12-2022 Albumin [Mass/Vol] 3.7 g/dL 3.2-5.0 [facility] Work Phone: Serum or plasma albumin/glob ulin mass ratioon 03-12-2022 Albumin/Globulin [Mass ratio] 1.1 {ratio} 0.9-2.4 [facility] Work Phone: Serum or plasma calcium charlene urement (mass/volume)on 03-12-2022 Calcium [Mass/Vol] 9.5 mg/dL 8.5-10.1 [facility] Work Phone: Serum or plasma creatinine m easurement (mass/volume)on 03-12-2022 Creatinine [Mass/Vol] 0.83 mg/dL 0.55-1.02 [facility] Work Phone: Comment on above: The validity of the calculated GFR & GFRAA in patients over 70 years has not been determined. Clinical correlation is essential. Serum or plasma urea nitroge n measurement (mass/volume)on 03-12-2022 Urea nitrogen [Mass/Vol] 13 mg/dL 7-18 [facility] Work Phone: Thin prep Papanicolaou smear with manual screeningon 03-12-2022 Thin prep Papanicolaou smear with manual screening 23 U/L 15-37 [facility] Work Phone: Thin prep Papanicolaou smear with manual screening 7 5-15 [facility] Work Phone: Thin prep Papanicolaou smear with manual screening 251 U/L 84-246 [facility] Work Phone: CNOVon 10-08-2021 CNOV Office Visit (UCWSTR ) -- LUZ CLANCY ([id number]) 1940 F Date Time Provider Department 10/08/21 7:30 AM SEBLE VANN During your visit today, we recorded the following information about you: Temperature Pulse Respiration Blood pressure 96.7 degrees 88/minute 16/minute 182/94 Weight 58.1 kg Seble Vann APRN.CNP 10/08/2021 8:25 AM Signed This note was created using worldhistoryprojectriter. Subjective Luz Clancy is a 81 year [...] history is provided by the patient. No manager language was used. Illness The current episode started [...] Laterality Date - COLONOSCOP W/ OR W/O [facility] SPEC 06/17/2006 Colonoscopy - COLONOSCOP W/ OR W/O [facility] SPEC 07/15/11 - COLONOSCOP W/ OR W/O [facility] SPEC 07/17/16 Colonoscopy (needs MAC [...] Pulses: No (more content not included)... Normal [facility] COVID w FLU A+B Routon 10-08 Influenza A PCR Negative Normal [facility] Comment on above: Performed By: #### C OVFLU #### [place] [address] Influenza B PCR Negative Normal [facility] Comment on above: Performed By: #### C OVFLU #### [place] [address] SARS-CoV-2 (COVID-19) RNA NAKUL+probe Ql (Unsp spec) UPPER RESPIRATORY TRACT SWAB Normal [facility] Comment on above: Performed By: #### C OVFLU #### [place] [address] SARS-CoV-2 (COVID-19) RNA NAKUL+probe Ql (Unsp spec) Negative for COVID19 (SARS CoV2) by RT-PCR or equivalent method. Normal Negative for COVID19 (SARS CoV2) by RT-PCR or equivalent method. [facility] Comment on above: Result Comment: This test was developed and its performance characteristics determined by [facility] [place]. This test has been authorized by FDA under an Emergency Use Authorization (EUA). This test has been validated in accordance with the FDA's Guidance Document Policy for Diagnostics Testing in Laboratories Certified to Perform High Complexity Testing under CLIA prior to Emergency use Authorization for Coronavirus Disease 2019 during the Public Health Emergency issued on December 10, 2019. Test performed by [facility] [place], [address] [id number]. Performed By: #### C OVFLU #### [facility] [place] [id number] Erythrocyte distribution wid th standard deviationon 03-16-2019 Erythrocyte distribution width (RBC) [Entitic vol] 40.4 fL 35.1-43.9 [facility] Laboratory - Hematology and Cell countson 03-16-2019 Erythrocyte distribution width (RBC) [Ratio] 12.1 % 11.6-14.6 [facility] Total cell counton 9 Cells counted [employer] (Bld/Tiss) [#] Not Reportable [facility] Laboratory - Coagulationon 10-24-2016 aPTT Coag (Bld) [Time] 25.9 s 24.1-36.2 [facility] INR Coag (Bld) [Relative time] 0.9 {INR} [facility] PT Coag (PPP) [Time] 11.4 s Low 11.7-14.9 [facility] Lab Report: CBC W/Diff, Auto matedon 02-11-2017 Basophils/100 leukocytes 0.7 % Invalid Interpretation Code 0-1 [facility] Work Phone: Eosinophils/100 leukocytes 2.1 % Invalid Interpretation Code 0-5 [facility] Work Phone: Erythrocytes (RBC) 4.35 10*6/uL Invalid Interpretation Code 4.2-5.4 [facility] Work Phone: Hematocrit (HCT) 42.1 % Invalid Interpretation Code 37-47 [facility] Work Phone: Hemoglobin (HGB) 13.5 g/dL Invalid Interpretation Code 12.0-15.0 [facility] Work Phone: immature granulocytes, percentage of total cells, blood 0.000 % Invalid Interpretation Code 0.0-0.9 [facility] Work Phone: Lymphocytes 1.03 X10 3/UL Invalid Interpretation Code 0.83-4.51 [facility] Work Phone: Lymphocytes/100 leukocytes 23.5 % Invalid Interpretation Code 19-41 [facility] Work Phone: MCH 31.0 pg Invalid Interpretation Code 27.0-32.0 [facility] Work Phone: MCHC 32.1 G/GL Invalid Interpretation Code 32-36 [facility] Work Phone: MCV 96.8 fL Invalid Interpretation Code 81-99 [facility] Work Phone: Monocytes/100 leukocytes 9.6 % Invalid Interpretation Code 0-10 [facility] Work Phone: neutrophil count, blood 2.8 X10 3/UL Invalid Interpretation Code 2.0-7.7 [facility] Work Phone: Neutrophils/100 leukocytes 64.1 % Invalid Interpretation Code 47-70 [facility] Work Phone: Platelets 249 10*3/mm3 Invalid Interpretation Code 150-450 [facility] Work Phone: PMV by Kandis 11.0 fL Invalid Interpretation Code 6.2-12.0 [facility] Work Phone: RDW-CA 12.4 % Invalid Interpretation Code 11.6-14.6 [facility] Work Phone: red blood cell distribution width, size density 44.0 fL High 35.1-43.9 [facility] Work Phone: WBC (Leukocytes) 4.4 10*3/uL Invalid Interpretation Code 4.4-11.0 [facility] Work Phone: Lab Report: [facility] 02-11-2017 Alanine aminotransferase (ALT) 30 U/L Invalid Interpretation Code 12-78 [facility] Work Phone: Albumin 4.6 g/dL Invalid Interpretation Code 3.4-5.0 [facility] Work Phone: Albumin/Globulin Ratio 1.1 {ratio} Invalid Interpretation Code 0.9-2.4 [facility] Work Phone: Alkaline phosphatase (ALP) 73 U/L Invalid Interpretation Code 45-117 [facility] Work Phone: Anion gap 10 mmol/L Invalid Interpretation Code 5-15 [facility] Work Phone: Aspartate aminotransferase (AST) 23 U/L Invalid Interpretation Code 15-37 [facility] [facility] Work Phone: Bilirubin (total) 0.40 mg/dL Invalid Interpretation Code 0.20-1.00 [facility] Work Phone: BUN/Creatinine Ratio 19.1 RATIO Invalid Interpretation Code 10-20 [facility] Work Phone: Calcium 9.4 mg/dL Invalid Interpretation Code 8.5-10.1 [facility] Work Phone: Chloride 103 mmol/L Invalid Interpretation Code 98-107 [facility] Work Phone: CO2 26.0 mmol/L Invalid Interpretation Code 21.0-32.0 [facility] [facility] Work Phone: Creatinine 0.84 mg/dL Invalid Interpretation Code 0.55-1.02 [employer] [facility] Work Phone: eGFR (non-black) 85 mL/min/{1.73_m2} Invalid Interpretation Code >60 [facility] [facility] Work Phone: eGFR (non-black) 70 mL/min/{1.73_m2} Invalid Interpretation Code >60 [facility] [facility] Work Phone: Globulin 4.1 g/dL High 2.3-3.5 [facility] [facility] Work Phone: Glucose 89 mg/dL Invalid Interpretation Code 70-110 [employer] [facility] Work Phone: Potassium 3.7 mmol/L Invalid Interpretation Code 3.5-5.1 [employer] Work Phone: Protein 8.7 g/dL High 6.4-8.2 [employer] [facility] Work Phone: Sodium 139 mmol/L Invalid Interpretation Code 136-145 [employer] [facility] Work Phone: Urea nitrogen 16 mg/dL Invalid Interpretation Code 7-18 [employer] [facility] Work Phone: Lab Report: LDHon 02-11-2017 lactate dehydrogenase - serum 285 U/L High 84-246 [facility] Work Phone: Lab Report: Magnesiumon Magnesium 2.5 mg/dL High 1.8-2.4 [facility] Work Phone: Lab Report: Uric Acidon Urate 3.7 mg/dL Invalid Interpretation Code 2.6-6.0 [facility] Work Phone: Office Visit: 6 mo f/u - PHQ 9 Completeon 08-14-2016 Adolescent depression screening assessment Adolescent depression screening assessment Invalid Interpretation Code [employer] Work Phone: Adult depression screening assessment Adult depression screening assessment Invalid Interpretation Code [employer] Work Phone: Documentation of current medications (procedure) Done Invalid Interpretation Code [employer] Work Phone: Tobacco smoking status NHIS Never Invalid Interpretation Code [facility] Work Phone: Tobacco use CPHS Never smoker Invalid Interpretation Code [employer] Work Phone: Office Visit: 6 mo f/u - PHQ 9 Completeon 07-16-2016 Colonoscopy (procedure) Colonoscopy (procedure) Invalid Interpretation Code [employer] Work Phone: Office Visit: 6 mo f/u - PHQ 9 Completeon 10-15-2015 Breast Mammogram screening Normal Bilateral Invalid Interpretation Code [employer] Work Phone: Lab Report: Cancer Antigen 1 25on 07-27-2015 cancer 125 antigen 11.2 U/mL Invalid Interpretation Code 0.0-34.0 [employer] Work Phone: Lab Report: CBC W/Diff, Auto - EPLAB Onlyon 02-15-2015 Absolute Neutrophil count 1.5 X10 3/UL Low 2.0-7.7 [employer] Work Phone: Lab Report: Comprehensive Me tabolic Profilon 11-14-2014 GE use only - for [employer] import when terms are not otherwise specified 66 U/L Invalid Interpretation Code 50-136 [employer] Work Phone: Lab Report: LDHon 11-14-2014 Lactate dehydrogenase (LDH) 188 U/L Invalid Interpretation Code 87-241 [facility] Work Phone: Lab Report: Thyroid Stim Hor salvador (TSH)on 11-14-2014 Thyroid stimulating hormone (TSH) 4.78 u[iU]/mL Critically high 0.358-3.74 [facility] Work Phone: Lab Report: B12on 01-16-2014 vitamin b12, serum 424 pg/mL Normal 211-911 [facility] Work Phone: Lab Report: FOLon 01-16-2014 Folate 55.10 ng/mL High 3.1-17.5 [facility] Work Phone: Lab Report: LIVERon 01-17-20 14 Bilirubin (direct) 0.08 mg/dL Normal 0.00-0.30 [facility] Work Phone: Office Visit: 6 mo f/u - PHQ 9 Completeon 08-12-2006 General categories [interpretation] of Cervical or vaginal smear or scraping by Cyto stain Normal Invalid Interpretation Code [facility] Work Phone: Culture, urine Bacteria identified Cx Nom (U) Positive [facility] Work Phone: Laboratory - Microbiology an d Antimicrobial susceptibility Bacteria identified Cx Nom (Bld) No growth in 5 days. [facility] Work Phone: Vital Signs Date Time Vital Sign Value Performing Clinician Cobyi litblair 06-26-2025 08:42-0400 Body height 165.1 cm [facility] Work Phone: [facility] 06-26-2025 08:42-0400 Body mass index (BMI) [Ratio] 20.5 kg/m2 [facility] COMMUTATOR PRESSER-C Work Phone: [facility] 06-26-2025 08:42-0400 Body temperature 98.3 [degF] [facility] COMMUTATOR PRESSER-C Work Phone: [facility] 06-26-2025 08:42-0400 Body weight 55.93 kg Lela Jaydon COMMUTATOR PRESSER-C Work Phone: [facility] 06-26-2025 08:42-0400 Diastolic blood pressure 94 mm[Hg] Lela Jaydon COMMUTATOR PRESSER-C Work Phone: [facility] 06-26-2025 08:42-0400 Heart rate 77 /min Lela Jaydon COMMUTATOR PRESSER-C Work Phone: [facility] 06-26-2025 08:42-0400 Respiratory rate 18 /min Lela Jaydon COMMUTATOR PRESSER-C Work Phone: [facility] 06-26-2025 08:42-0400 SaO2% (BldA) [Mass fraction] 99 % Lela Jaydon COMMUTATOR PRESSER-C Work Phone: [facility] 06-26-2025 08:42-0400 Systolic blood pressure 166 mm[Hg] Lela Jaydon COMMUTATOR PRESSER-C Work Phone: [facility] 06-22-2025 10:44-0400 Body temperature 97.3 [degF] Lela Jaydon COMMUTATOR PRESSER-C Work Phone: [facility] 06-22-2025 10:44-0400 Diastolic blood pressure 73 mm[Hg] Lela Jaydno COMMUTATOR PRESSER-C Work Phone: [facility] 06-22-2025 10:44-0400 Heart rate 101 /min Lela Jaydon COMMUTATOR PRESSER-C Work Phone: [facility] 06-22-2025 10:44-0400 Respiratory rate 16 /min Lela Jaydon COMMUTATOR PRESSER-C Work Phone: [facility] 06-22-2025 10:44-0400 SaO2% (BldA) [Mass fraction] 100 % Lela Jaydon COMMUTATOR PRESSER-C Work Phone: [facility] 06-22-2025 10:44-0400 Systolic blood pressure 123 mm[Hg] Lela Jaydon COMMUTATOR PRESSER-C Work Phone: [facility] 06-22-2025 08:47-0400 Body height 165.1 cm Lela Jaydon COMMUTATOR PRESSER-C Work Phone: [facility] 06-22-2025 08:47-0400 Body mass index (BMI) [Ratio] 20.2 kg/m2 Lela Jaydon COMMUTATOR PRESSER-C Work Phone: [facility] 06-22-2025 08:47-0400 Body weight 55.2 kg Lela Jaydon COMMUTATOR PRESSER-C Work Phone: [facility] 06-15-2025 09:38-0400 Body height 165.1 cm Lela Jaydon COMMUTATOR PRESSER-C Work Phone: [facility] 06-15-2025 09:38-0400 Body mass index (BMI) [Ratio] 20.5 kg/m2 Lela Jaydon COMMUTATOR PRESSER-C Work Phone: [facility] 06-15-2025 09:38-0400 Body weight 55.79 kg Lela Jaydon COMMUTATOR PRESSER-C Work Phone: [facility] 06-15-2025 09:38-0400 Diastolic blood pressure 78 mm[Hg] Lela Jaydon COMMUTATOR PRESSER-C Work Phone: [facility] 06-15-2025 09:38-0400 Heart rate 83 /min Lela Jaydon COMMUTATOR PRESSER-C Work Phone: [facility] 06-15-2025 09:38-0400 Respiratory rate 17 /min Lela Jaydon COMMUTATOR PRESSER-C Work Phone: [facility] 06-15-2025 09:38-0400 SaO2% (BldA) [Mass fraction] 99 % Lela Jaydon COMMUTATOR PRESSER-C Work Phone: [facility] 06-15-2025 09:38-0400 Systolic blood pressure 144 mm[Hg] Lela Jaydon COMMUTATOR PRESSER-C Work Phone: [facility] 06-08-2025 10:24-0400 Body height 165.1 cm Lela Jaydon COMMUTATOR PRESSER-C Work Phone: [facility] 06-08-2025 10:24-0400 Body mass index (BMI) [Ratio] 20.7 kg/m2 Lela Jaydon COMMUTATOR PRESSER-C Work Phone: [facility] 06-08-2025 10:24-0400 Body temperature 98.2 [degF] Lela Jaydon COMMUTATOR PRESSER-C Work Phone: [facility] 06-08-2025 10:24-0400 Body weight 56.35 kg Lela Jaydon COMMUTATOR PRESSER-C Work Phone: [facility] 06-08-2025 10:24-0400 Diastolic blood pressure 83 mm[Hg] Lela Jaydon COMMUTATOR PRESSER-C Work Phone: [facility] 06-08-2025 10:24-0400 Heart rate 80 /min Lela Jaydon COMMUTATOR PRESSER-C Work Phone: [facility] 06-08-2025 10:24-0400 Respiratory rate 18 /min Lela Jaydon COMMUTATOR PRESSER-C Work Phone: [facility] 06-08-2025 10:24-0400 SaO2% (BldA) [Mass fraction] 100 % Lela Jaydon COMMUTATOR PRESSER-C Work Phone: [facility] 06-08-2025 10:24-0400 Systolic blood pressure 160 mm[Hg] Lela Jaydon COMMUTATOR PRESSER-C Work Phone: [facility] 06-05-2025 14:52-0400 Body height 165.[address] Paola Corona MD Work Phone: [facility] 06-05-2025 14:52-0400 Body mass index (BMI) [Ratio] 20.7 kg/m2 Dr. Paola Corona MD Work Phone: [facility] 06-05-2025 14:52-0400 Body temperature 97.9 [degF] Dr. Paola Corona MD Work Phone: [facility] 06-05-2025 14:52-0400 Body weight 56.[address] Paola Corona MD Work Phone: [facility] 06-05-2025 14:52-0400 Diastolic blood pressure 97 mm[Hg] Dr. Paola Corona MD Work Phone: [facility] 06-05-2025 14:52-0400 Heart rate 83 /min Dr. Paola Corona MD Work Phone: [facility] 06-05-2025 14:52-0400 Respiratory rate 18 /min Dr. Paola Corona MD Work Phone: [facility] 06-05-2025 14:52-0400 SaO2% (BldA) [Mass fraction] 99 % Dr. Paola Corona MD Work Phone: [facility] 06-05-2025 14:52-0400 Systolic blood pressure 179 mm[Hg] Dr. Paola Corona MD Work Phone: 7(214)560-905891 [address] 05-22-2025 16:18-0400 Body temperature 98.1 [degF] Dr. Paola Corona MD Work Phone: 8(788)226-022564 [place] [address] 05-22-2025 16:18-0400 Diastolic blood pressure 58 mm[Hg] Dr. Paola Corona MD Work Phone: [facility] 05-22-2025 16:18-0400 Heart rate 80 /min Dr. Paola Corona MD Work Phone: 1(116)739-421264 [place] [address] 05-22-2025 16:18-0400 Respiratory rate 16 /min Dr. Paola Corona MD Work Phone: [facility] 05-22-2025 16:18-0400 SaO2% (BldA) [Mass fraction] 99 % Dr. Paola Corona MD Work Phone: [facility] 05-22-2025 16:18-0400 Systolic blood pressure 114 mm[Hg] Dr. Paola Corona MD Work Phone: [facility] 05-22-2025 09:14-0400 Body height 165.[address] Paola Corona MD Work Phone: [facility] 05-22-2025 09:14-0400 Body weight 56.[address] Paola Corona MD Work Phone: 1(532)537-239227 [place] [address] 05-22-2025 01:26-0400 Body mass index (BMI) [Ratio] 20.7 kg/m2 Dr. Paola Corona MD Work Phone: 1(615)651-354827 [place] [address] 05-19-2025 09:43-0400 Heart rate 80 /min Dr. Paola Corona MD Work Phone: 9(883)278-976427 [place] [address] 05-19-2025 07:41-0400 Body temperature 99.1 [degF] Dr. Paola Corona MD Work Phone: 9(176)627-155827 [place] [address] 05-19-2025 07:41-0400 Diastolic blood pressure 83 mm[Hg] Dr. Paola Corona MD Work Phone: 1(978)405-150727 [place] [address] 05-19-2025 07:41-0400 Respiratory rate 17 /min Dr. Paola Corona MD Work Phone: 9(484)305-218127 [place] [address] 05-19-2025 07:41-0400 SaO2% (BldA) [Mass fraction] 98 % Dr. Paola Corona MD Work Phone: 6(139)829-531527 [place] [address] 05-19-2025 07:41-0400 Systolic blood pressure 162 mm[Hg] Dr. Paola Corona MD Work Phone: 8(304)505-379227 [place] [address] 05-19-2025 05:13-0400 Body mass index (BMI) [Ratio] 21.1 kg/m2 Dr. Paola Corona MD Work Phone: 5(813)345-108627 [place] [address] 05-19-2025 05:13-0400 Body weight 57.[address] Paola Corona MD Work Phone: 5(477)849-463427 [place] [address] 05-18-2025 22:52-0400 Body height 165.[address] Paola Corona MD Work Phone: 1(376)677-352927 [place] [address] 05-18-2025 22:19-0400 Body temperature 98.6 [degF] Dr. Paola Corona MD Work Phone: [facility] 05-18-2025 22:19-0400 Diastolic blood pressure 102 mm[Hg] Dr. Paola Corona MD Work Phone: [facility] 05-18-2025 22:19-0400 Heart rate 124 /min Dr. Paola Corona MD Work Phone: 8(330)772-449591 [address] 05-18-2025 22:19-0400 Respiratory rate 18 /min Dr. Paola Corona MD Work Phone: 3(733)404-298164 [place] [address] 05-18-2025 22:19-0400 SaO2% (BldA) [Mass fraction] 100 % Dr. Paola Corona MD Work Phone: 4(251)581-277927 [place] [address] 05-18-2025 22:19-0400 Systolic blood pressure 159 mm[Hg] Dr. Paola Corona MD Work Phone: 3(879)946-433391 [address] 05-18-2025 17:46-0400 Body height 165.[address] Paola Corona MD Work Phone: 3(885)224-825191 [address] 05-18-2025 17:46-0400 Body mass index (BMI) [Ratio] 21.3 kg/m2 Dr. Paola Corona MD Work Phone: 6(163)222-391891 [address] 05-18-2025 17:46-0400 Body weight 58.[address] Paola Corona MD Work Phone: 9(365)805-902191 [address] 05-16-2025 08:46-0400 Body mass index (BMI) [Ratio] 20.7 kg/m2 Dr. Paola Corona MD Work Phone: 4(548)422-583691 [address] 05-16-2025 08:46-0400 Body weight 56.[address] Paola Corona MD Work Phone: 8(954)544-091891 [address] 05-16-2025 08:46-0400 Diastolic blood pressure 96 mm[Hg] Dr. Paola Corona MD Work Phone: 7(547)818-843291 [address] 05-16-2025 08:46-0400 Heart rate 80 /min Dr. Paola Corona MD Work Phone: [facility] 05-16-2025 08:46-0400 Respiratory rate 18 /min Dr. Paola Corona MD Work Phone: [facility] 05-16-2025 08:46-0400 SaO2% (BldA) [Mass fraction] 98 % Dr. Paola Corona MD Work Phone: 7(481)402-951964 [place] [address] 05-16-2025 08:46-0400 Systolic blood pressure 167 mm[Hg] Dr. Paola Corona MD Work Phone: 4(577)529-714291 [address] 05-10-2025 13:11-0400 Diastolic blood pressure 63 mm[Hg] Dr. Paola Corona MD Work Phone: 9(847)282-210491 [address] 05-10-2025 13:11-0400 Heart rate 72 /min Dr. Paola Corona MD Work Phone: 9(424)505-007691 [address] 05-10-2025 13:11-0400 Respiratory rate 18 /min Dr. Paola Corona MD Work Phone: 4(541)593-347691 [address] 05-10-2025 13:11-0400 SaO2% (BldA) [Mass fraction] 100 % Dr. Paola Corona MD Work Phone: [facility] 05-10-2025 13:11-0400 Systolic blood pressure 123 mm[Hg] Dr. Paola Corona MD Work Phone: [facility] 05-10-2025 08:17-0400 Body height 165.[address] Paola Corona MD Work Phone: 7(799)581-166991 [address] 05-10-2025 08:17-0400 Body mass index (BMI) [Ratio] 20.5 kg/m2 Dr. Paola Corona MD Work Phone: 1(036)161-019064 [place] [address] 05-10-2025 08:17-0400 Body temperature 98.6 [degF] Dr. Paola Corona MD Work Phone: 0(564)901-292291 [address] 05-10-2025 08:17-0400 Body weight 55.[address] Paola Corona MD Work Phone: [facility] 04-24-2025 15:53-0400 Body height 165.[address] Paola Corona MD Work Phone: [facility] 04-24-2025 15:53-0400 Body mass index (BMI) [Ratio] 20.9 kg/m2 Dr. Paola Corona MD Work Phone: [facility] 04-24-2025 15:53-0400 Body temperature 98.8 [degF] Dr. Paola Corona MD Work Phone: 0(682)723-044364 [place] [address] 04-24-2025 15:53-0400 Body weight 57.[address] Paola Corona MD Work Phone: 9(953)161-139064 [place] [address] 04-24-2025 15:53-0400 Diastolic blood pressure 81 mm[Hg] Dr. Paola Corona MD Work Phone: [facility] 04-24-2025 15:53-0400 Heart rate 75 /min Dr. Paola Corona MD Work Phone: [facility] 04-24-2025 15:53-0400 Respiratory rate 18 /min Dr. Paola Corona MD Work Phone: [facility] 04-24-2025 15:53-0400 SaO2% (BldA) [Mass fraction] 98 % Dr. Paola Corona MD Work Phone: [facility] 04-24-2025 15:53-0400 Systolic blood pressure 180 mm[Hg] Dr. Paola Corona MD Work Phone: [facility] 04-12-2025 14:56-0400 Body height 165.[address] Paola Corona MD Work Phone: [facility] 04-12-2025 14:56-0400 Body mass index (BMI) [Ratio] 21 kg/m2 Dr. Paola Corona MD Work Phone: [facility] 04-12-2025 14:56-0400 Body weight 57.[address] Paola Corona MD Work Phone: [facility] 04-12-2025 14:56-0400 Diastolic blood pressure 99 mm[Hg] Dr. Paola Corona MD Work Phone: 6(830)686-919927 [place] [address] 04-12-2025 14:56-0400 Heart rate 81 /min Dr. Paola Corona MD Work Phone: 9(590)336-086491 [address] 04-12-2025 14:56-0400 Respiratory rate 15 /min Dr. Paola Corona MD Work Phone: 3(798)982-366527 [place] [address] 04-12-2025 14:56-0400 SaO2% (BldA) [Mass fraction] 99 % Dr. Paola Corona MD Work Phone: 4(094)112-359691 [address] 04-12-2025 14:56-0400 Systolic blood pressure 171 mm[Hg] Dr. Paola Corona MD Work Phone: 7(545)860-736991 [address] 01-11-2025 13:26-0400 Body mass index (BMI) [Ratio] 22.1 kg/m2 Dr. Paola Corona MD Work Phone: 4(625)848-513291 [address] 01-11-2025 13:26-0400 Body weight 60.[address] Paola Corona MD Work Phone: 1(725)112-886691 [address] 01-11-2025 13:26-0400 Diastolic blood pressure 99 mm[Hg] Dr. Paola Corona MD Work Phone: 6(558)711-272764 [place] [address] 01-11-2025 13:26-0400 Heart rate 99 /min Dr. Paola Corona MD Work Phone: 2(936)243-756491 [address] 01-11-2025 13:26-0400 Respiratory rate 16 /min Dr. Paola Corona MD Work Phone: 7(338)965-794664 [place] [address] 01-11-2025 13:26-0400 Systolic blood pressure 177 mm[Hg] Dr. Paola Corona MD Work Phone: [facility] 10-21-2024 06:35-0500 Body temperature 97.9 [degF] Dr. Paola oCrona MD Work Phone: [facility] 10-21-2024 06:35-0500 Diastolic blood pressure 76 mm[Hg] Dr. Paola Corona MD Work Phone: 6(727)271-807164 [place] [address] 10-21-2024 06:35-0500 Heart rate 116 /min Dr. Paola Corona MD Work Phone: 9(284)975-160764 [place] [address] 10-21-2024 06:35-0500 Respiratory rate 16 /min Dr. Paola Corona MD Work Phone: 1(155)435-804927 [place] [address] 10-21-2024 06:35-0500 SaO2% (BldA) [Mass fraction] 97 % Dr. Paola Corona MD Work Phone: 7(419)593-934191 [address] 10-21-2024 06:35-0500 Systolic blood pressure 160 mm[Hg] Dr. Paola Corona MD Work Phone: 9(542)368-282464 [place] [address] 02-04-2024 06:47-0400 Body temperature 97.8 [degF] Dr. Paola Corona Work Phone: 7(232)074-466291 [address] 02-04-2024 06:47-0400 Diastolic blood pressure 74 mm[Hg] Dr. Paola Corona Work Phone: 7(187)422-051364 [place] [address] 02-04-2024 06:47-0400 Heart rate 91 /min Dr. Paola Corona Work Phone: [facility] 02-04-2024 06:47-0400 Respiratory rate 17 /min Dr. Paola Corona Work Phone: 0(210)074-408791 [address] 02-04-2024 06:47-0400 SaO2% (BldA) [Mass fraction] 99 % Dr. Paola Corona Work Phone: [facility] 02-04-2024 06:47-0400 Systolic blood pressure 158 mm[Hg] Dr. Paola Corona Work Phone: 0(843)497-006364 [place] [address] 12-26-2023 08:05-0400 Body temperature 98.1 [degF] Dr. Paola Corona Work Phone: [facility] 12-26-2023 08:05-0400 Diastolic blood pressure 84 mm[Hg] Dr. Paola Corona Work Phone: [facility] 12-26-2023 08:05-0400 Heart rate 101 /min Dr. Paola Corona Work Phone: [facility] 12-26-2023 08:05-0400 Respiratory rate 14 /min Dr. Paola Corona Work Phone: 8(937)639-845191 [address] 12-26-2023 08:05-0400 SaO2% (BldA) [Mass fraction] 98 % Dr. Paola Corona Work Phone: 5(629)048-766464 [place] [address] 12-26-2023 08:05-0400 Systolic blood pressure 140 mm[Hg] Dr. Paola Corona Work Phone: [facility] 12-10-2023 07:08-0500 Body height 165.[address] Paola Corona Work Phone: 9(915)525-894591 [address] 12-10-2023 07:08-0500 Body mass index (BMI) [Ratio] 21.9 kg/m2 Dr. Paola Corona Work Phone: 6(962)754-375664 [place] [address] 12-10-2023 07:08-0500 Body temperature 98 [degF] Dr. Paola Corona Work Phone: [facility] 12-10-2023 07:08-0500 Body weight 59.[address] Paola Corona Work Phone: [facility] 12-10-2023 07:08-0500 Diastolic blood pressure 80 mm[Hg] Dr. Paola Corona Work Phone: [facility] 12-10-2023 07:08-0500 Heart rate 97 /min Dr. Paola Corona Work Phone: [facility] 12-10-2023 07:08-0500 Respiratory rate 12 /min Dr. Paola Corona Work Phone: [facility] 12-10-2023 07:08-0500 SaO2% (BldA) [Mass fraction] 96 % Dr. Paola Corona Work Phone: [facility] 12-10-2023 07:08-0500 Systolic blood pressure 162 mm[Hg] Dr. Paola Corona Work Phone: 4(048)348-922864 [place] [address] 03-23-2023 13:28-0400 Body height 165.[address] Paola Corona Work Phone: 5(732)237-041827 [place] [address] 03-23-2023 13:28-0400 Body mass index (BMI) [Ratio] 21.6 kg/m2 Dr. Paola Corona Work Phone: 0(069)370-877127 [place] [address] 03-23-2023 13:28-0400 Body temperature 97.3 [degF] Dr. Paola Corona Work Phone: 1(215)325-907264 [place] [address] 03-23-2023 13:28-0400 Body weight 59.[address] Paola Corona Work Phone: 6(313)599-913891 [address] 03-23-2023 13:28-0400 Diastolic blood pressure 81 mm[Hg] Dr. Paola Corona Work Phone: 1(237)594-298591 [address] 03-23-2023 13:28-0400 Heart rate 87 /min Dr. Paola Corona Work Phone: 2(599)082-798764 [place] [address] 03-23-2023 13:28-0400 Respiratory rate 16 /min Dr. Paola Corona Work Phone: 8(461)223-616091 [address] 03-23-2023 13:28-0400 SaO2% (BldA) [Mass fraction] 99 % Dr. Paola Corona Work Phone: 4(865)629-122964 [place] [address] 03-23-2023 13:28-0400 Systolic blood pressure 175 mm[Hg] Dr. Paola Corona Work Phone: 6(787)020-938364 [place] [address] 06-05-2022 10:31-0400 Body temperature 98.6 [degF] Dr. Paola Corona Work Phone: [facility] Work Phone: 06-05-2022 10:29-0400 Diastolic blood pressure 84 mm[Hg] Dr. Paola Corona Work Phone: [facility] Work Phone: 06-05-2022 10:29-0400 Heart rate 83 /min Dr. Paola Corona Work Phone: [facility] Work Phone: 06-05-2022 10:29-0400 Respiratory rate 18 /min Dr. Paola Corona Work Phone: [facility] Work Phone: 06-05-2022 10:29-0400 SaO2% (BldA) [Mass fraction] 96 % Dr. Paola Corona Work Phone: [facility] Work Phone: 06-05-2022 10:29-0400 Systolic blood pressure 144 mm[Hg] Dr. Paola Corona Work Phone: [facility] Work Phone: 06-05-2022 07:50-0400 Body height 165.[address] Paola Corona Work Phone: [facility] Work Phone: 06-05-2022 07:50-0400 Body mass index (BMI) [Ratio] 24.7 kg/m2 Dr. Paola Corona Work Phone: [facility] Work Phone: 06-05-2022 07:50-0400 Body weight 67.[address] Paola Corona Work Phone: [facility] Work Phone: 03-24-2022 15:22-0400 Body height 162.[address] Paola Corona Work Phone: [facility] Work Phone: 03-24-2022 15:22-0400 Body mass index (BMI) [Ratio] 23.1 kg/m2 Dr. Paola Corona Work Phone: [facility] Work Phone: 03-24-2022 15:22-0400 Body temperature 98.4 [degF] Dr. Paola Corona Work Phone: [facility] Work Phone: 03-24-2022 15:22-0400 Body weight 61.[address] Paola Corona Work Phone: [facility] Work Phone: 03-24-2022 15:22-0400 Diastolic blood pressure 96 mm[Hg] Dr. Paola Corona Work Phone: [facility] Work Phone: 03-24-2022 15:22-0400 Heart rate 82 /min Dr. Paola Corona Work Phone: [facility] Work Phone: 03-24-2022 15:22-0400 Respiratory rate 15 /min Dr. Paola Corona Work Phone: [facility] Work Phone: 03-24-2022 15:22-0400 SaO2% (BldA) [Mass fraction] 97 % Dr. Paola Corona Work Phone: [facility] Work Phone: 03-24-2022 15:22-0400 Systolic blood pressure 182 mm[Hg] Dr. Paola Corona Work Phone: [facility] Work Phone: 02-16-2022 13:58-0400 Diastolic blood pressure 85 mm[Hg] [facility] Work Phone: 02-16-2022 13:58-0400 Heart rate 75 /min [facility] Work Phone: 02-16-2022 13:58-0400 SaO2% (BldA) [Mass fraction] 98 % [facility] Work Phone: 02-16-2022 13:58-0400 Systolic blood pressure 186 mm[Hg] [facility] Work Phone: 02-16-2022 12:46-0400 Body height 162.56 cm [facility] Work Phone: 02-16-2022 12:46-0400 Body mass index (BMI) [Ratio] 22.3 kg/m2 [facility] Work Phone: 02-16-2022 12:46-0400 Body temperature 96.8 [degF] [facility] Work Phone: 02-16-2022 12:46-0400 Body weight 58.96 kg [facility] Work Phone: 02-16-2022 12:46-0400 Respiratory rate 18 /min [facility] Work Phone: 03-22-2020 14:59-0400 Body mass index (BMI) [Ratio] 21.8 kg/m2 Dr. Paola Corona Work Phone: [facility] 03-22-2020 14:59-0400 Body temperature 97.6 [degF] Dr. Paola Corona Work Phone: [facility] 03-22-2020 14:59-0400 Body weight 59.[address] Paola Corona Work Phone: [facility] 03-22-2020 14:59-0400 Diastolic blood pressure 82 mm[Hg] Dr. Paola Corona Work Phone: [facility] 03-22-2020 14:59-0400 Heart rate 74 /min Dr. Paola Corona Work Phone: [facility] 03-22-2020 14:59-0400 Respiratory rate 16 /min Dr. Paola Corona Work Phone: [facility] 03-22-2020 14:59-0400 SaO2% (BldA) [Mass fraction] 98 % Dr. Paola Corona Work Phone: [facility] 03-22-2020 14:59-0400 Systolic blood pressure 162 mm[Hg] Dr. Paola Corona Work Phone: [facility] 08-14-2016 13:23-0400 BMI (Body Mass Index) [...] Phone: 11-21-2014 13:27-0500 Height 163.83 cm Carlos Bernal MD [facility] Work Phone: Encounters Encounter Date Encounter Type Care Provider Facility Start: 07[facility]03[facility] Start: 06-26-2025 End: 06-26-[address] Carlos Bernal MD -[facility] Work Phone: Start: 06-26-2025 End: 06-26-2025 ambulatory Lela Interiano COMMUTATOR PR[employer]C Work Phone: -[facility] Start: 06-26-[address] Carlos Bernal MD -[facility] Start: 06-22-2025 ambulatory Isaiah shearery:[facility] Start: 06-22-2025 Non-patient / Non-visit [facility] Alicia Lerner [facility] Start: 06-22-2025 End: 06-22-2025 Admission to same day surgery center Dr. Isaiah Lerner MD [facility] Start: 06-22-2025 End: 06-22-2025 ambulatory Lela Jaydon COMM[employer]ATOR [employer] Work Phone: [facility] Start: 06-15-2025 End: 06-15-[address] Isaiah Lerner MD -[facility] Work Phone: Start: 06-15-2025 End: 06-15-2025 ambulatory Lela Jaydon COMMUTATOR PR[employer]C Work Phone: -[facility] Start: 06-09-2025 End: 06-09-2025 ambulatory Lela Jaydon COMMUTATOR PR[employer]C Work Phone: -[facility] Start: 06-09-2025 End: 06-09-2025 Patient encounter procedure Lela Interiano COMMUTATOR PR[facility] -[facility] Work Phone: Start: 06-08-2025 End: 06-08-2025 Patient encounter procedure Lizzy Pelaez COMMUTATOR PR[employer]-C -[facility] [facility] Work Phone: Start: 06-08-2025 End: 06-09-2025 ambulatory Lela Bobbyner COMMUTATOR PRESSER-C Work Phone: -[facility] Start: 06-05-2025 End: 06-05-[address] Carlos Bernal MD -[facility] Work Phone: Start: 06-05-2025 End: 06-05-[address] Paola Corona MD Work Phone: -[facility] Start: 05-29-2025 End: 05-29-[address] Paola Corona MD Work Phone: -[facility] Start: 05-29-2025 End: 05-29-2025 Patient encounter procedure Lela Bobbyner COMMUTATOR PRESSER-C -Laboratory [facility] Start: 05-29-2025 End: 05-29-2025 ambulatory Lelalita Bobbyner COMMUTATOR PRESSER Facility:[facility] Start: 05-23-2025 Non-patient / Non-visit Dr. Mirlande Lindsey MD -[facility] Work Phone: Start: 05-22-2025 Non-patient / Non-visit [facility] Alicia [facility] Start: 05-21-2025 Non-patient / Non-visit Dr. Geovanna perez MD -[facility] Start: 05-21-2025 Non-patient / Non-visit Dr. Brian arriaga MD -[facility] Work Phone: Start: 05-20-2025 Non-patient / Non-visit Dr. Geovanna perez MD -[facility] Start: 05-20-2025 Non-patient / Non-visit Dr. Brian arriaga MD -[facility] Work Phone: Start: 05-19-2025 ambulatory Brian Negrete Facility:[facility] Start: 05-19-2025 End: 05-22-2025 Evaluation and management of inpatient Dr. Joseph Lindsey MD -[facility] Work Phone: Start: 05-19-2025 Non-patient / Non-visit Dr. Alicia Lerner MD -[facility] Start: 05-19-2025 Non-patient / Non-visit Dr. Brian arriaga MD -[facility] Work Phone: Start: 05-18-2025 ambulatory Joseph Lindsey Fac ility:[facility] Start: 05-18-2025 Evaluation and management of inpatient Dr. Najma Cates MD -[facility] Care [facility] Work Phone: Start: 05-18-2025 Non-patient / Non-visit Dr. Najma Cates MD -[facility] Work Phone: Start: 05-18-[address] Paola Corona MD Work Phone: -[facility] Start: 05-16-2025 End: 05-16-2025 Patient encounter procedure Laney HUNT -[facility] Work Phone: Start: 05-16-2025 End: 05-16-[address] Paola Corona MD Work Phone: [facility] Start: 05-10-2025 End: 05-10-[address] Paola Corona MD Work Phone: -[facility] Start: 05-10-2025 End: 05-10-[address] Carlos Bernal MD -[facility] Work Phone: Start: 05-10-2025 End: 05-10-2025 ambulatory Brian Gonzales Facility:[facility] Start: 05-02-[address] Carlos Bernal MD -[facility] Start: 04-24-2025 End: 04-24-[address] Carlos Bernal MD -[facility] Work Phone: Start: 04-24-2025 End: 04-24-[address] Paola Corona MD Work Phone: [facility] Start: 04-17-2025 End: 04-17-[address] Paola Corona MD Work Phone: -[facility] Start: 04-17-2025 End: 04-17-[address] Carlos Bernal MD -[facility] Work Phone: Start: 04-17-2025 End: 04-17-2025 ambulatory Carlos Bernal Facility:[facility] Start: 04-12-[address] Carlos Bernal MD -[facility] Start: 04-12-2025 End: 04-12-[address] Carlos Bernal MD -[facility] Work Phone: Start: 04-12-2025 End: 04-12-[address] Paola Corona MD Work Phone: -[facility] Start: 02-27-2025 End: 02-27-2025 Patient encounter procedure Lela Interiano COMMUTATOR PRESSER-C -[facility] Start: 02-27-2025 End: 02-27-2025 ambulatory Lela Interiano NP Facility:[facility] Start: 02-07-2025 ambulatory Paola Corona Facility: [facility] Start: 02-07-2025 Non-patient / Non-visit Dr. Jaren [facility]ANTIAGO [facility] Start: 02-03-2025 ambulatory Paola Corona Facility: [facility] Start: 02-03-2025 Non-patient / Non-visit Dr. Jaren SANTIAGO [facility] Start: 02-03-2025 End: 02-03-[address] Riley Mckeon MD -[facility] Work Phone: Start: 02-03-2025 End: 02-03-2025 ambulatory Paola Corona Facility:[facility] Start: 01-11-2025 End: 01-11-[address] Riley Mckeon MD -[facility] Work Phone: Start: 01-11-2025 End: 01-11-2025 ambulatory Paola Corona Facility:[facility] Start: 12-20-2024 End: 12-20-[address] Paola Corona MD Work Phone: [facility] Work Phone: Start: 12-20-2024 End: 12-20-[address] Paola Corona MD -Laboratory, [facility] Start: 12-20-2024 End: 12-20-2024 ambulatory Paola Corona Facility:[facility] Start: 10-24-2024 End: 10-24-[address] Paola Corona MD -Laboratory, [facility] Start: 10-24-2024 End: 10-24-2024 ambulatory Paola Corona Facility:[facility] Start: 10-21-2024 End: 10-21-2024 Patient encounter procedure Eagle LUKE [facility] Work Phone: Start: 10-21-2024 End: 10-21-2024 ambulatory Eagel LUKE Facility:[facility] Start: 02-04-2024 End: 02-04-[address] Paola Corona Work Phone: [facility] Work Phone: Start: 02-04-2024 End: 02-04-[address] Paola Corona Work Phone: [facility]-Laboratory, Specimen Work Phone: Start: 02-04-2024 End: 02-04-[address] Paola Corona Work Phone: [facility] Work Phone: Start: 12-26-2023 End: 12-26-[address] Paola Corona Work Phone: [facility] Work Phone: Start: 12-10-2023 End: 12-10-[address] Paola Corona Work Phone: [facility] Work Phone: Start: 04-20-2023 End: 04-20-[address] Paola Corona Work Phone: [facility] Work Phone: Start: 04-20-2023 End: 04-20-[address] Paola Corona Work Phone: [facility]-Outpatient Breast Imaging Work Phone: Start: 03-30-[address] Paola dent Work Phone: [facility] Work Phone: Start: 03-23-2023 End: 03-23-[address] Paola Corona Work Phone: [facility] Work Phone: Start: 03-16-2023 End: 03-16-2023 ambulatory [facility] Work Phone: Start: 03-16-2023 End: 03-16-2023 Patient encounter procedure [facility]-Laboratory Start: 06-26-2022 End: 06-26-[address] Paola Corona Work Phone: [facility] Work Phone: Start: 06-26-2022 End: 06-26-[address] Paola Corona Work Phone: [facility]-Nuclear Medicine, [facility] Start: 06-13-2022 End: 06-13-[address] Paola Corona Work Phone: [facility] Work Phone: Start: 06-13-2022 End: 06-13-[address] Paola Corona Work Phone: [facility]-Radiology, [place] Start: 06-05-2022 End: 06-05-2022 Emergency department patient visit Dr. Paola Corona Work Phone: [facility]-Emergency Department Start: 04-07-2022 End: 04-07-[address] Paola Corona Work Phone: [facility]-Outpatient Breast Imaging Start: 03-24-2022 End: 03-24-[address] Paola Corona Work Phone: [facility] Start: 03-12-[address] Paola dent Work Phone: [facility] Medical Oncology Start: 02-16-2022 End: 02-16-2022 Emergency department patient visit [facility]-Emergency Department Procedures Date Procedure Procedure Detail Performing Clinician Start: 06-22-2025 Plain chest X-ray Lela Interiano COMMUTATOR PRESSER-C Work Phone: Start: 06-22-2025 Implantation to cardiovascular system Lelalita Interiano COMMUTATOR PRESSER-C Work Phone: Start: 06-22-2025 Fluoroscopic guidance E esther Interiano COMMUTATOR PRESSER-C Work Phone: Start: 06-09-2025 Screening mammography E esther Interiano COMMUTATOR PRESSER-C Work Phone: Start: 05-22-2025 Computed tomography of abdomen and [...] Start: 02-18-2017 End: 02-20-2017 Lactate dehydrogenase (LDH) [place] Alistair Burrell [facility] Work Phone: Start: 02-18-2017 End: 02-20-2017 Magnesium Niecy Sainz Alam Work Phone: Start: 02-18-2017 End: 02-20-2017 Urate Niecy Sainz Alam Work Phone: Start: 02-07-2016 End: 02-07-2016 *CBC with Differential Niecy Sainz Alam Work Phone: Start: 02-07-2016 End: 02-07-2016 *CMP Complete Metabolic Panel Niecy Sainz Alam Work Phone: Start: 02-07-2016 End: 02-14-2016 Ct abd&pelv 1+ section/regns Niecy Sainz Alam Work Phone: Start: 02-07-2016 [...] End: 02-08-2015 *CMP Complete Metabolic Panel [place] M Alam Work Phone: Start: 11-13-2014 [...] Treatment Date Care Activity Detail Author Start: 06-26-2025 Thyroid stimulating hormone measurement [facility] Start: 06-26-2025 [facility] Start: 06-26-2025 Venous catheter care management [facility] Start: 06-22-2025 Patient discharge [facility] Start: 05-22-2025 Patient discharge [facility] Start: 05-20-2025 Serum inorganic phosphate measurement [facility] Start: 05-19-2025 Admission procedure [facility] Start: 05-19-2025 Consultation [facility] Start: 05-19-2025 Inhalation therapy procedure [facility] Start: 05-18-2025 Following clinical pathway protocol [facility] Start: 05-18-2025 Assessment of risk of venous thromboembolism [facility] Start: 05-18-2025 Incentive spirometry [facility] Start: 05-18-2025 Insertion of catheter into peripheral vein [facility] Start: 05-18-2025 Introduction of urinary catheter [facility] Start: 05-18-2025 Measuring intake and output [facility] Start: 05-18-2025 Oxygen therapy [facility] Start: 05-18-2025 Providing care according to standard [facility] Start: 05-18-2025 Provision of activity privileges [facility] Start: 05-18-2025 Referral to general surgeon [facility] Start: 05-18-2025 Referral to service [facility] Start: 05-18-2025 [facility] Start: 05-18-2025 Verification routine [facility] Start: 05-18-2025 End: 05-18-2025 Hospital admission, emergency, from emergency room, medical nature [facility] Start: 05-18-2025 Admission procedure [facility] Start: 05-18-2025 Patient referral to dietitian [facility] Start: 05-10-2025 CORE NDL BX LNG/MED PERQ CORE NDL BX LNG/MED PERQ [facility] Start: 05-10-2025 Following clinical pathway protocol [facility] Start: 05-10-2025 Catheterization of vein [facility] Start: 05-10-2025 Oxygen therapy [facility] Start: 05-10-2025 Patient discharge [facility] Start: 05-10-2025 Vital signs measurements [facility] Start: 06-05-2022 End: 06-05-2022 [facility] Work Phone: Start: 06-05-2022 Blood culture [facility] Work Phone: Start: 02-18-2017 End: 08-14-2016 *CBC w/Diff - oncology ONLY [facility] Work Phone: Start: 02-18-2017 End: 02-20-2017 *CMP Complete Metabolic Panel *CMP Complete Metabolic Panel [facility] Work Phone: Start: 02-18-2017 End: 02-20-2017 Lactate dehydrogenase (LDH) *LDH -LDH (Lactate Dehydrogenase) [facility] Work Phone: Start: 02-18-2017 End: 02-20-2017 Magnesium *Magnesium [facility] Work Phone: Start: 02-18-2017 End: 02-20-2017 Urate *Uric Acid Blood [facility] Work Phone: Start: 08-14-2016 End: 02-14-2016 *CBC with Differential *CBC with Differential [facility] Work Phone: Start: 08-14-2016 End: 02-14-2016 *CMP Complete Metabolic Panel *CMP Complete Metabolic Panel [facility] Work Phone: Start: 08-14-2016 End: 02-14-2016 Lactate dehydrogenase (LDH) *LDH -LDH (Lactate Dehydrogenase) [facility] Work Phone: Start: 08-14-2016 End: 02-14-2016 Urate *Uric Acid Blood [facility] Work Phone: Start: 02-14-2016 End: 02-07-2016 *CBC with Differential *CBC with Differential [facility] Work Phone: Start: 02-14-2016 End: 02-07-2016 *CMP Complete Metabolic Panel *CMP Complete Metabolic Panel [facility] Work Phone: Start: 02-14-2016 End: 02-07-2016 Lactate dehydrogenase (LDH) *LDH -LDH (Lactate Dehydrogenase) [facility] Work Phone: Start: 02-14-2016 End: [...] Lactate dehydrogenase (LDH) *LDH -LDH (Lactate Dehydrogenase) [facility] Work Phone: Start: 07-26-2015 End: 07-26-2015 Urate *Uric Acid Blood [facility] Work Phone: Start: 02-15-2015 End: 02-14-2016 *CBC with Differential *CBC with Differential [facility] Work Phone: Start: 11-13-2014 End: 02-08-2015 *CBC with Differential *CBC with Differential [facility] Work Phone: Start: 11-13-2014 End: 02-08-2015 *CMP Complete Metabolic Panel *CMP Complete Metabolic Panel [facility] Work Phone: Start: 11-13-2014 End: 02-08-2015 Cancer antigen 125 *CA125 - Cancer Antigen (CA) 125 [facility] Work Phone: Start: 11-13-2014 End: 02-08-2015 Lactate dehydrogenase (LDH) *LDH -LDH (Lactate Dehydrogenase) [facility] Work Phone: Start: 11-13-2014 End: 02-08-2015 Thyroid stimulating hormone (TSH) *TSH [facility] Work Phone: Start: 11-13-2014 End: 02-08-2015 Urate *Uric Acid Blood [facility] Work Phone: Start: 04-04-2013 End: 04-04-2013 *MISC - Miscellaneous Lab Test #1 *MISC - Miscellaneous Lab Test #1 [facility] Work Phone: Start: 04-04-2013 End: 04-04-2013 Histoplasma capsulatum Ab [Presence] in Serum *HISTOPL Histoplasma Antibody [facility] Work Phone: Start: 04-04-2013 End: 04-04-2013 Mycobacterium tuberculosis tuberculin stimulated gamma interferon [Presence] in Blood *QFTBINC Quantiferon TB Gold [facility] Work Phone: Alanine aminotransfe rase [Enzymatic activity/volume] in Serum or Plasma [facility] Albumin [Mass/volume ] in Serum or Plasma [facility] Alkaline phosphatase [Enzymatic activity/volume] in Serum or Plasma [facility] Anion gap in Serum o r Plasma [facility] Anion gap in Serum o r Plasma [facility] Anion gap in Serum o r Plasma [facility] Anion gap in Serum o r Plasma [facility] Anion gap in Serum o r Plasma [facility] Bacteria identified in Blood by Culture Blood Culture [facility] Work Phone: Bacteria identified in Urine by Culture Urine Culture [facility] Work Phone: Bilirubin, total measurement [facility] Blood culture [facility] Work Phone: BUN/Creatinine ratio [facility] BUN/Creatinine ratio [facility] BUN/Creatinine ratio [facility] BUN/Creatinine ratio [facility] BUN/Creatinine ratio [facility] CA 125 measurement [facility] Work Phone: CA 125 measurement [facility] Calcium [Mass/volume ] in Serum or Plasma [facility] Calcium [Mass/volume ] in Serum or Plasma [facility] Calcium [Mass/volume ] in Serum or Plasma [facility] Calcium [Mass/volume ] in Serum or Plasma [facility] Calcium [Mass/volume ] in Serum or Plasma [facility] Cancer Ag 125 [Units/volume] in Serum or Plasma [facility] Carbon dioxide, tota l [Moles/volume] in Central venous blood [facility] Carbon dioxide, tota l [Moles/volume] in Central venous blood [facility] Carbon dioxide, tota l [Moles/volume] in Central venous blood [facility] Carbon dioxide, tota l [Moles/volume] in Central venous blood [facility] Carbon dioxide, tota l [Moles/volume] in Central venous blood [facility] CBC W Auto Different ial panel - Blood [facility] Work Phone: CBC W Auto Different ial panel - Blood [facility] Comprehensive metabo lic 2000 panel - Serum or Plasma [facility] Creatinine [Mass/vol ume] in Serum or Plasma [facility] Creatinine [Mass/vol ume] in Serum or Plasma [facility] Creatinine [Mass/vol ume] in Serum or Plasma [facility] Creatinine [Mass/vol ume] in Serum or Plasma [facility] Creatinine [Mass/vol ume] in Serum or Plasma [facility] CT Abdomen and Pelvi s W contrast IV [facility] Work Phone: CT Abdomen and Pelvi s W contrast IV [facility] CT Chest W contrast IV [facility] Work Phone: CT Chest W contrast IV [facility] CT Chest W contrast IV [facility] Erythrocyte mean corpuscular volume determination [facility] Erythrocyte mean corpuscular volume determination [facility] Erythrocyte mean corpuscular volume determination [facility] Glucose [Mass/volume ] in Serum or Plasma [facility] Glucose [Mass/volume ] in Serum or Plasma [facility] Glucose [Mass/volume ] in Serum or Plasma [facility] Glucose [Mass/volume ] in Serum or Plasma [facility] Glucose [Mass/volume ] in Serum or Plasma [facility] Hematocrit [Volume Fraction] of Blood [facility] Hematocrit [Volume Fraction] of Blood [facility] Hematocrit [Volume Fraction] of Blood [facility] Hemoglobin [Mass/vol ume] in Blood [facility] Hemoglobin [Mass/vol ume] in Blood [facility] Hemoglobin [Mass/vol ume] in Blood [facility] Leukocytes [#/volume ] in Blood [facility] Leukocytes [#/volume ] in Blood [facility] Leukocytes [#/volume ] in Blood [facility] Magnesium measurement [facility] Magnesium measurement [facility] Mean corpuscular hem oglobin concentration determination [facility] Mean corpuscular hem oglobin concentration determination [facility] Mean corpuscular hem oglobin concentration determination [facility] Mean corpuscular hem oglobin determination [facility] Mean corpuscular hem oglobin determination [facility] Mean corpuscular hem oglobin determination [facility] Measurement of renal function [facility] Measurement of renal function [facility] Measurement of renal function [facility] Measurement of renal function [facility] Measurement of renal function [facility] Neutrophil count [facility] Neutrophil count [facility] Neutrophil count [facility] Neutrophil percent differential count [facility] Neutrophil percent differential count [facility] Neutrophil percent differential count [facility] Patient Education [facility] Work Phone: Patient referral [facility] Work Phone: Platelets [#/volume] in Blood [facility] Platelets [#/volume] in Blood [facility] Platelets [#/volume] in Blood [facility] Positron emission tomography with computed tomography [facility] Potassium measurement [facility] Potassium measurement [facility] Potassium measurement [facility] Potassium measurement [facility] Potassium measurement [facility] Red blood cell count [facility] Red blood cell count [facility] Red blood cell count [facility] Red cell distributio n width determination [facility] Red cell distributio n width determination [facility] Red cell distributio n width determination [facility] Serum chloride measurement [facility] Serum chloride measurement [facility] Serum chloride measurement [facility] Serum chloride measurement [facility] Serum chloride measurement [facility] Sodium measurement [facility] Sodium measurement [facility] Sodium measurement [facility] Sodium measurement [facility] Sodium measurement [facility] Total protein measurement [facility] Urea nitrogen [Mass/ volume] in Serum or Plasma [facility] Urea nitrogen [Mass/ volume] in Serum or Plasma [facility] Urea nitrogen [Mass/ volume] in Serum or Plasma [facility] Urea nitrogen [Mass/ volume] in Serum or Plasma [facility] Urea nitrogen [Mass/ volume] in Serum or Plasma [facility] Immunizations Immunization Date Immunization Notes Care Provider Fa cility 02-16-2022 tetanus toxoid, redu dee diphtheria toxoid, and acellular pertussis vaccine, adsorbed [facility] 02-14-2021 Covid (Pfizer) [facility] 01-24-2021 Covid (Pfizer) [facility] Payers Date Payer Category Payer Self-pay [id number] 2006 Medicare [id number] 2006 Unknown [id number] Unknown [id number] 2.16.8 [id number] Unknown [id number] 2.16.8 [id number] Unknown [id number] 2.16.8 [id number] Unknown [id number] 2.16.8 [id number] Unknown [id number] 2.16.8 [id number] Unknown [id number] 2.16.8 [id number] Unknown [id number] 2.16.8 [id number] Unknown [id number] 2.16.8 [id number] Unknown [id number] 2.16.8 [id number] Unknown [id number] 2.16.8 [id number] Unknown [id number] 2.16.8 [id number] Unknown [id number] 2.16.8 [id number] Unknown [id number] 2.16.8 [id number] Unknown [id number] 2.16.8 [id number] Unknown [id number] 2.16.8 40.1.340315.3.579.2.462 Unknown [id number] 2.16.8 40.1.821308.3.579.2.462 Unknown [id number] 2.16.8 40.1.095495.3.579.2.462 Unknown [id number] 2.16.8 40.1.457114.3.579.2.462 Unknown [id number] 2.16.8 40.1.025892.3.579.2.462 Unknown [id number] 2.16.8 40.1.381439.3.579.2.462 Unknown [id number] 2.16.8 40.1.072295.3.579.2.462 Unknown [id number] 2.16.8 40.1.581803.3.579.2.462 Unknown [id number] 2.16.8 40.1.488303.3.579.2.462 Unknown [id number] 2.16.8 40.1.624525.3.579.2.462 Unknown [id number] 2.16.8 40.1.140188.3.579.2.462 Unknown [id number] 2.16.8 40.1.568630.3.579.2.462 Unknown [id number] 2.16.8 40.1.037285.3.579.2.462 Unknown [id number] 2.16.8 40.1.240821.3.579.2.462 Unknown [id number] 2.16.8 40.1.326729.3.579.2.462 Unknown [id number] 2.16.8 40.1.460800.3.579.2.462 Unknown [id number] 2.16.8 40.1.543619.3.579.2.462 Unknown [id number] 2.16.8 40.1.211573.3.579.2.462 Social History Date Type Detail Facility Start: 02-16-2022 End: 12-26-2023 Tobacco smoking status NVIS Unknown if ever smoked [facility] Start: 03-22-2020 Non-smoker [facility] Start: 1940 Sex Assigned At Female W [facility] Start: 03-12-2024 End: 06-16-2025 Tobacco smoking status NHIS Never smoked tobacco (finding) [facility] Start: 12-28-2024 Sex Female (finding) [facility] Not [facility] Medical Equipment Procedure Code Equipment Code Equipment Origin al Text Equipment Identifier Dates Insertion, vascular access port ([id number]) Vascular port/catheter [id number] FDA Start: 06-22-2025 Goals Date Patient Goal Desired Activity /State Functional Status Date Assessment Result Facility 05-22-2025 Functional status Ambulates [facility] Work Phone: 05-21-2025 Functional status None [place] [facility] Work Phone: 05-19-2025 Functional status Standby Assist [facility] Work Phone: 05-10-2025 Functional status Bathroom Privilege [facility] Work Phone: Mental Status Date Assessment Result Facility 06-22-2025 Cognitive function Level Of Cons ciousness Follows Commands;Drowsy [facility] Work Phone: 05-22-2025 Cognitive function Voice/Name [facility] Work Phone: 05-19-2025 Cognitive function Voice/Name [facility] Work Phone: 05-10-2025 Cognitive function Awake;Alert;Appropriat e [facility] Work Phone: Clinical Notes 10-08-2021 to 06-26-2025 Note Date & Type Note Facility 06-26-2025 Progress note [facility] 06-26-2025 Progress note Note Date/Time June 26, 2025 9:17am [facility] [place] [facility] [address] [address] OFFICE VISIT Date of Service: 06/26/25 0841 MR#: [id number] Acct: [id number] Name: LUZ CLANCY Rep #: [id number] : 1940 From: Carlos Bernal MD Age/Sex: 85/F Location: [facility] [place] Status: Signed HPI Subjective Date of Service 06/26/25 Chief Complaint F/u for chemotherapy and Immunotherapy. History of Present Illness 85y.o.woman was diagnosed [...] which showed L sided lung mass 04/17/2025. May 02, 2025 PET/CT showed hypermetabolic activity large left lower lobe pulmonary mass (SUV 20.8), right hilar lymph nodeand left lower lobe nodule. 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 She agreed to therapy with Taxol, Carboplatin and Keytruda. Port was placed on 06/22/2025. Comes for follow up to start. Feeling well. [facility] Medical History Thyroid disease Wears glasses Wears dentures Anxiety History of hiatal hernia Non-smoker Shortness of breath on exertion History of edema History of Holter monitoring Cardiology follow-up encounter History of echocardiogram History of stress test HTN (hypertension) Cancer Diverticulosis Pulmonary nodule Surgical History Hx of oral surgery Hx of colonoscopy History of lung biopsy History of tubal ligation History of hysterectomy Family History Mother Colon cancer Breast cancer Daughter Thyroid disorder Father No problems noted. Social History household members: none Smoking Status: Never smoker alcohol intake: never substance use type: does not use Intake Vital Signs 06/08/25 10:24 06/22/25 08:47 06/26/25 08:42 Height 5 ft 5 in 5 ft 5 in 5 ft 5 in Weight: 55.934 kg BMI 20.5 BP 166/94 H Blood Pressure Location Lt brachial Position Sitting Respiration 18 Pulse 77 Pulse Source Monitor Temp 98.3 F Temperature Source Temporal Artery Pulse Oximetry (%) 99 Oxygen Delivery Method room air Intake Is patient in pain?: No Allergies doxycycline Adverse Reaction (Severe, Verified 06/26/25 08:44) Nausea erythromycin base (Erythromycin Base) Adverse Reaction (Severe, Verified 06/26/25 08:44) Nausea clindamycin Adverse Reaction (Intermediate, Verified 06/26/25 08:44) Thrush Penicillins Adverse Reaction (Intermediate, Verified 06/26/25 08:44) Hives Medications ?Medication ?Instructions ?Recorded ?Confirmed ?Type Calcium Carbonate/Vitamin D 1 tab PO DAILY 08/01/13 History Multivitamins,Therapeutic 1 tab PO DAILY 08/01/1306/12 History lactobacillus combination no.9 4 4,000 mmu cells PO DA NURIS 03/23/23 06/26/25 History billion cell capsule (Adult 50 Plus Probiotic) metoprolol succinate 50 mg 50 mg PO QDAY #90 tabs 12/0606/26/25 Rx tablet,extended release 24 hr (Toprol XL) lidocaine-prilocaine 2.5 %-2.5 % 1 applic topical ONCE PRN port 06/13/25 06/26/25 Rx topical cream access 30 days #30 grams ondansetron 8 mg disintegrating 8 mg PO Q8H PRN nausea and 06/13/25 06/26/25 Rx tablet vomiting #30 tabs prochlorperazine maleate 10 mg 10 mg PO Q6H PRN nausea and 06/13/25 06/26/25 Rx tablet vomiting #30 tabs levothyroxine 50 mcg tablet 50 mcg PO DAILY 06/16/25 0 06/26/25 History Have you fallen in the past year?: No Central Venous Access Central Venous Access: Yes Port/PICC: Port Exam Physical Exam Narrative ECOG 0-1 Const alert, oriented x3 and no apparent distress Eyes Eyes Narrative: Wears glasses General Eye: normal appearance of both eyes Neck supple Lymph Lymphatic: no lymphadenopathy noted Chest Chest Narrative: +Port R IC area. Resp normal respiratory effort and clear to auscultation bilaterally Cardio regular rate, regular rhythm, S1 normal heart sound and S2 normal heart sound GI soft to palpation no CVA tenderness Back/Spine thoracic and lumbar spine normal to inspection Extremity normal to inspection Skin no rashes or lesions noted Neuro oriented x3, CN's II-XII intact bilaterally and moves all extremities Psych mental status grossly normal Attitude: calm and engaged Memory / Cognition: memory grossly intact and cognition grossly intact Coding Level of Care Code Off vis,est,level 4 Exam Problem Focused Diagnoses Malignant neoplasm of uterus, unspecified site C55 Malignant neoplasm of uterus location: unspecified site of uterus 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 Prognosis ispoor but depends on therapy. Discussed therapy options again, Taxol, Carboplatin and Keytruda, Pt wants proceed. Counts and chemistry reviewed, Ok to proceed. Plan: To Start C1 Keytruda and Carboplatin [id number], Taxol weekly D1 today, D8 next week, D15 in 2 weeks. (2) Metastasis to lung: Status: Acute Qualifiers: Laterality: bilateral Qualified Code(s): C78.01 - Secondary malignant neoplasm of right lung; C78.02 - Secondary malignant neoplasm of left lung Comment: From Uterine cancer. Plan: To proceed with C1 Keytruda, Carboplatin and Taxol. (3) Immunotherapy encounter: Status: Acute Plan: To proceed with C1 Keytruda. (4) Chemotherapy management, encounter for: Status: Acute Plan: To proceed with C1 Carboplatin, D1 Taxol today, D8 next week, D15 in 2 weeks. Clinical Quality Measures Falls Risk Screening/Assistive Devices Have you fallen in the past year?: No 06/26/25 0917 <Electronically signed by Carlos Zambrano> Date _ Carlos Bernal MD Cosigner Signature: Date (if applicable) CC: MARILEE Interiano ~ [place] [facility] Work Phone: 1(864) 126-251309-11-2025 Consult note Author Rolly Casey [facility] Note Date/Time June 22, 2025 9:32am [facility] Medical Records Department [facility] [place] [address] Pre-Anesthesia Evaluation 06/22/25922 MR#: [id number] Acct: [id number] Name: LUZ CLANCY Rep #:[id number] : 1940 85 From: Rolly Casey MD PCP: MARILEE Partida Status:REG [facility] Y Race: C Location: [place] [address] ASA Classification* ASA Classification ASA Classification: 3 Assessment & Plan Anesthesia* Anesthesia Assessment Anesthesia Assessment: Discussed sedation and/or anesthesia options, risks, benefits, and alternatives with patient/parents/legal guardian/POA. Questions invited. The patient/parents/legal guardian/POA seems to understand and agrees to proceedwith anesthesia plan. Reviewed the physical assessment, medical history, allergy history and patient home medications list prior to surgery/procedure/anesthetic and documented any changes. Performed airway and anesthesia risk assessments. Anesthesia Type Anesthesia Type: MAC History Source History Obtained from:: Patient and Chart Anesthesia Focused Assessment* Temperature: 97.5 F Pulse Rate: 74 Blood Pressure: 160/79 Respiratory Rate: 18 Pulse Ox: 100 Oxygen Delivery Method: Room Air Airway Assessment Mouth opens: >3 cm Mallampati Score: III Teeth Condition: Dentures (Take out after patient has full upper and lower dentures.) Neck Range of motion (ROM): Full ROM Labs Anesthesia Preop lab: CBC WBC 5.8 K/mm3 (4.4-11.0) 05/22/25 03:30 05/22/25 RBC 3.70 M/mm3 (4.2-5.4) L 05/22/25 03:30 05/22/25 Hgb 10.4 g/dL (12.0-15.0) L 05/22/25 03:30 5 Hct 32.2 % (37-47) L 05/22/25 03:30 05/22/25 Plt Count 323 K/mm3 (150-450) 05/22/25 03:30 05/22/25 CHEMISTRY Potassium 4.4 mmol/L (3.3-5.1) 05/29/25 14:17 05/29/25 Sodium 135 mmol/L (133-145) 05/29/25 14:17 05/29/25 Magnesium 1.9 mg/dL (1.5-2.2) 05/21/25 05:40 05/21/25 Phosphorus 3.0 mg/dL (2.7-4.5) 05/20/25 06:02 05/20/25 BUN 9 mg/dL (4-19) 05/29/25 14:17 05/29/25 Creatinine 0.66 mg/dL (0.70-1.20) L 05/29/25 14:17 Glucose 98 mg/dL (70-99) 05/29/25 14:17 05/29/25 TSH 4.410 uIU/mL (0.300-4.200) H 05/29/25 14:17 COAG PT 13.0 SECONDS (11.7-14.9) 05/10/25 07:39 Pre-Assessment Diagnosis/Proposed Procedure Planned Operative Procedure(s): INSERTION VASCULAR PORT RIGHT POSS LEFT Anesthesia History Anesthesia History - principal solutions architect: Anesthesia History - principal solutions architect Hx Hospitalization Yes: BOWEL BLOCKAGE 05/29/25 06/16/25 09:01 Any Problems With Anesthesia No 06/16/25 09:01 Cholinesterase deficiency No 06/16/25 09:01 You/Your Family Experience No 06/16/25 09:01 fever (hyperthermia) with Relationship Recent Exposure to Contagious No 06/22/25 08:47 Disease Does patient have nerve No 06/16/25 09:01 stimulator Patient instructed to have device shut off --Does patient have Pacemaker No 06/22/25 08:47 or ICD? When Was Last Pacemaker Check QUESTION #4 FULL TEXT: You/Your Family Experience fever (hyperthermia) with Anesthesia Last Oral Intake Last Oral intake: Last Oral Intake NPO since 20:00 06/22/25 08:47 Meds taken in AM with sips of Yes 06/22/25 08:47 water? Meds patient instructed to metoprolol, levothyroxine 06/22/25 08:47 take am of surgery Any additional information?: Yes Meds taken in AM with sips of water?: Yes PONV PONV - principal solutions architect: PONV - principal solutions architect Female Yes 06/16/25 09:01 HX of Motion Sickness No 06/16/25 09:01 HX of N/V After Surgery No 06/16/25 09:01 Non-Smoker Yes 06/16/25 09:01 Duration of Surgery greater No 06/16/25 09:01 than 60 minutes Number of Risk Factors 2 06/16/25 09:01 PONV Score Moderate Risk 06/16/25 09:01 Height & Weight Height & Weight: Anesthesia: Height & Weight Height 5 ft 5 in 06/22/25 08:47 Weight: 55.2 kg 06/22/25 08:47 Body Mass Index (BMI) 20.2 06/22/25 08:47 Respiratory Assessment Respiratory Assessment - principal solutions architect: Respiratory Tract Infection Hx - principal solutions architect Hx Respiratory Tract Infection No 06/16/25 09:01 STOP Sleep Apnea STOP Sleep Apnea - principal solutions architect: STOP Sleep Apnea - principal solutions architect Hx Hypertension Yes: CONTROLLED WITH MED 06/16/25 09:01 Hx Sleep Apnea No 06/16/25 09:01 CPAP BIPAP Do you snore loudly (louder No 06/16/25 09:01 than talking or can be heard Do you often feel tired/ No 06/16/25 09:01 fatigued/ sleepy during daytime? Has anyone observed you stop No 06/16/25 09:01 breathing during sleep? STOP Results Negative 06/16/25 09:01 QUESTION #5 FULL TEXT : Do you snore loudly (louder than talking or can be heard through closed doors)? Tobacco Use History Tobacco Use History - principal solutions architect: Tobacco Use History - principal solutions architect Tobacco Use Smoking Status Never smoker 06/16/25 09:01 Hx Tobacco Use No 06/16/25 09:01 Years Smoking Packs Smoked per Day Smoking Cessation Date was within the last 15 years Hx Smoking Cessation Date Hx Smoking Cessation Counseling Hematologic Medial History Hematologic Hx - principal solutions architect: Hematologic Medical Hx - sugar boiler Hx of Blood Transfusion No 06/16/25 09:01 Hx of Transfusion in last 3 No 06/16/25 09:01 Months Date of Last Transfusion (if within last 3 months) Ever experience any problems No 06/16/25 09:01 with transfusion(s)? Specify any problems Hx of Preganancy in last 3 No 06/16/25 09:01 Months Nurse Filling Out Transfusion DSCHRIBER 06/16/25 09:01 & Questions: Date: 06/16/25 06/16/25 09:01 Time: 09:04 06/16/25 09:01 Patient unable to answer at this time (ie. confused, unrespo /Reproduction History /Reproductive History - principal solutions architect: /Reproductive Hx- principal solutions architect Hx Now No 06/16/25 09:01 Gestational Age (in weeks): EDC: Hx Hx Para Hx Section SAB No 06/16/25 09:01 Active Medications Active Medications: Current Medications Generic Name Dose Route Start Last Admin Trade Name Freq PRN Reason Stop Dose Admin Cefazolin Sodium 2 gm/ Sodium 110 mls @ 200 mls/hr 06/22/25 10:00 Chloride IV 06/22/25 10:32 INTRAOP ONE Lactated Ringer's 1,000 mls @ 15 mls/hr 06/22/25 08:30 06/22/25 09:11 IV 15 mls/hr .Q48H YARI Administration PFSH Medical History Thyroid disease Wears glasses Wears dentures Anxiety History of hiatal hernia Non-smoker Shortness of breath on exertion History of edema History of Holter monitoring Cardiology follow-up encounter History of echocardiogram History of stress test HTN (hypertension) Cancer Diverticulosis Pulmonary nodule Home Medications ?Medication ?Instructions ?Recorded ?Last Taken ?Type Calcium Carbonate/Vitamin D 1 tab PO DAILY 08/01/13 History Multivitamins,Therapeutic 1 tab PO DAILY 08/01/1306/12 History lactobacillus combination no.9 4 4,000 mmu cells PO DA NURIS 03/23/23 06/21/25 History billion cell capsule (Adult 50 Plus Probiotic) metoprolol succinate 50 mg 50 mg PO QDAY #90 tabs 12/0606/22/25 Rx tablet,extended release 24 hr (Toprol XL) lidocaine-prilocaine 2.5 %-2.5 % 1 applic topical ONCE PRN port 06/13/25 Unknown Rx topical cream access 30 days #30 grams ondansetron 8 mg disintegrating 8 mg PO Q8H PRN nausea and 06/13/25 Unknown Rx tablet vomiting #30 tabs prochlorperazine maleate 10 mg 10 mg PO Q6H PRN nausea and 06/13/25 Unknown Rx tablet vomiting #30 tabs levothyroxine 50 mcg tablet 50 mcg PO DAILY 06/16/25 0 06/22/25 History Allergy/AdvReac Type Severity Reaction Status Date / Time doxycycline AdvReac Severe Nausea Verified 06/22/25 08:42 erythromycin base AdvReac Severe Nausea Verified 06/22/25 08:42 (Erythromycin Base) clindamycin AdvReac Intermediate Thrush Verified 06/22/25 08:42 Penicillins AdvReac Intermediate Hives Verified 06/22/25 08:42 Family History Mother Colon cancer Breast cancer Daughter Thyroid disorder Father No problems noted. Surgical History Hx of oral surgery Hx of colonoscopy History of lung biopsy History of tubal ligation History of hysterectomy Social History household members: none Smoking Status: Never smoker alcohol intake: never substance use type: does not use Review of Systems (Anesthesia) ROS Narrative System reviewed and no additional complaints, except as documented. 06/22/25 0932 <Electronically signed by Rolly zarate MD> Date _ Rolly Casey MD Cosigner Signature: Date CC: ~ Signed [facility] Work Phone: 1(712) 978-948609-11-2025 Radiology Diagnostic study note [facility] Imaging Services [address] [place], [place] [address] CXR for Line Placement MR#: [id number] Acct: [id number] Name: LUZ CLANCY Rep #: [id number] : 1940 F 85 From: Diego Perez MD PCP: MARILEE Partida Status: [place] [facility] [place]:CXR for Line Placement Date of Exam: 06/22/25 Exam# [id number] Ordering Dr: Isaiah Gresham MD PROCEDURE: CXR FOR LINE PLACEMENT 06/22/2025 REASON FOR EXAM: LINE PLACEMENT TECHNIQUE: Procedure Code: RADCXRLP Modality: DX Procedure: CXR FOR LINE PLACEMENT COMPARISON: Prior study dated May 10, 2025. FINDINGS: The tip of the right port a catheter is at the junction of the superior vena cava and right atrium.No evidence of pneumothorax. Increased linear markings in the medial aspect of the left lung base suggestive of left basilar atelectasis. Since prior study, there has been a decrease in the left hilar mass. RAD/CXR for Line Placement IMPRESSION: The tip of the right-sided port a catheter is at the junction of the superior vena cava and right atrium. Reading Location: [facility] CC: MARILEE Interiano; Dr. Isaiah Lerner MD ~ Brand Recorder: Signed [facility]09-11-2025 Consult note [facility] Medical Records Department [address] [place] [address] Anesthesia Postop Eval I 06/22/25 1034 MR#: [id number] Acct: [id number] Name: LUZ CLANCY Rep #:[id number] : 1940 85 From: Tamra BUCHANAN PCP: MARILEE Partida Status:[place] [facility] [place] Race: C Location: [place] [address] Anesthesia: Postop Eval I Current Vital Signs Temperature: 97 F Pulse Rate: 94 Blood Pressure: 123/79 Respiratory Rate: 16 Pulse Ox: 100 Oxygen Delivery Method: Room Air Assessment Airway patent: Yes Spontaneous unlabored respirations: Yes Mental status: Awake and Calm nausea: No Vomiting: No Anesthesia Complication: No Fluid Hydration Crystalloid volume administer (ml): 300 Total IV fluid infused: 300 Progress Note Anesthesia document: Postop Eval 1 completed: Yes 06/22/25 1034 RUSTIC FENCE BUILDER> Date _ Tamra Garcia Signature: Date CC: ~ Signed [facility]09-11-2025 Discharge summary [facility] Medical Records Department [address] [place] [address] Instructions for Home/Discharge Instructions 06/22/25 1033 MR#: [id number] Acct: [id number] Name: LUZ CLANCY Rep #:[id number] : 1940 85 From: Isaiah gibson MD PCP: Lela Interiano NP-C Status:REG [facility] Discharge Instructions Procedure Port-A-Cath Diet Discharge Diet: Light diet - advance as tolerated (Pain medication may cause nausea. You should typically eat light foods as you take your pain medication.) Activity Discharge Activity: Return to Normal Activity and May Shower (with your bandage in place in 1-2 days after surgery. DO NOT SHOWER WHEN YOUR PORT IS ACCESSED.) Additional Activity Instructions:: Alternate ibuprofen and Tylenol for pain control Dressing / Incision Call your doctor if your incision/area has: Continuous Slow Oozing, Sudden Increased Bleeding, Increased Pain/ Swelling, Increased Redness and Foul Smelling Discharge Call your doctor if you observe: Fever of 101 or Higher Remove Dressing in: 2 days Cleanse incision/area with: Soap & Water Follow Up Care Please Follow Up With: Isaiah Lerner MD When: as needed [phone] Test Results: Test results from this visit will be discussed in further detail at your follow- up appointment, if applicable. Discharge Plan Admission Attending Provider: Isaiah Lerner Primary Care Provider: Lela Interiano NP Instructions Print Language: Bulgarian Discharge Orders/Prescriptions Prescriptions: No Action Adult 50 Plus Probiotic 4 billion cell capsule 4,000 mmu cells PO DAILY Rx Instructions: administer with a meal metoprolol succinate [Toprol XL] 50 mg tablet extended release 24 hr 50 mg PO QDAY Qty: 90 3RF Multivitamins,Therapeutic tablet 1 tab PO DAILY Calcium Carbonate/Vitamin D tablet 1 tab PO DAILY levothyroxine 50 mcg tablet 50 mcg PO DAILY prochlorperazine maleate 10 mg tablet 10 mg PO Q6H PRN (Reason: nausea and vomiting) Qty: 30 2RF ondansetron 8 mg tablet,disintegrating 8 mg PO Q8H PRN (Reason: nausea and vomiting) Qty: 30 2RF lidocaine-prilocaine 2.5-2.5 % cream 1 applic topical ONCE PRN (Reason: port access) 30 Days Qty: 30 2RF Referrals / Follow Up: Lela Interiano NP, NP-C [Primary Care Provider] - Disposition Disposition (needs filled in before D/C Order can be placed): Home, Self Care 06/22/25 1033Alila Lerner MD CC: SOURAV-C Lela Interiano ~ Signed [facility]09-11-2025 Procedure note [facility] Medical Records Department [address] [place] [address] Operative Report 06/22/25 1029 MR#: [id number] Acct: [id number] Name: LUZ CLANCY Rep #:[id number] : 1940 85 From: Isaiah gibson MD PCP: MARILEE Partida Status:[facility] Location: [place] [address] Operative Report (Standard) Operative Information Date of Procedure: 06/22/25 Pre-Operative Diagnosis: Need for vascular access for chemotherapy Post-Operative Diagnosis: Same Surgery/Procedure Performed: Ultrasound and fluoroscopy guided right chest port placement utilizingright IJ monitor and storage bin tender: No Type of Anesthesia: Local MAC RN Documented Start/Stop Times: Operation Date: 06/22/25 10:00 Case Time Into Pre-Op 06/22/25 08:29 Out of Pre-Op 06/22/25 09:54 Anesthesia Start 06/22/25 09:55 Into Room 06/22/25 09:55 Procedure Start 06/22/25 10:10 Procedure End 06/22/25 10:25 Anesthesia End 06/22/25 10:29 Out of Room 06/22/25 10:29 Procedure Start Time: 10:10 Procedure Stop Time: 10:25 Select all DRAINS/GRAFTS/IMPLANTS that apply: Implanted device Implanted device details: 8 [place] PowerPort Estimated Blood Loss: 5 Specimen collected: No Description of surgery: After obtaining informed consent patient was brought back to the operating room MAC anesthesia was induced and the right chest and neck were prepped in normal sterile fashion. Ultrasound was used to evaluate both IJs and the right IJ was selected. Next, using a needle, the right IJ was accessed mehran guidewire was passed on into the superior vena cava under fluoroscopy guidance. A small incision was made over the puncture site and the dilator introducer was placed over the guidewire. Next this was capped and the pocket was made for the port. 1% lidocaine with epinephrine was injected in the proposed port site. An incision was made with scalpel. Electrocautery was used to make a pocket under the skin and subcutaneous tissue. Hemostasis was obtained. Next, the catheter was tunneled up to the neck incision site and placed through the introducer. The peel-away introducer was removed and theposition of the catheter was confirmed on fluoroscopy. Next, the catheter was trimmed and attached to the port with the locking device. Interrupted 2-0 Vicryl sutures were used to anchor the port to t he chest wall and then the port was placed inside the pocket. The pocket was then flushed with saline and the port irrigated with saline. There was good blood return and the port flushed easily. Next, heparinwas injected into the port. The skin was closed with subcutaneous interrupted 3-0 Vicryl sutures. A single 3-0 Vicryl sutures placed under the skin at the neck incision site. Steri-Strips were placed as well as op sites. Patient tolerated procedure well, was taken to PACU in stable condition. Chest x-ray will be obtained. Surgical Findings: None Complications Complications: No Admit VTE Documentation VTE Mechan Device Prophylaxis: SCD's 06/22/25 1032 Cosigner Signature (if applicable): CC: MARILEE Interiano; Dr. Isaiah Lerner MD~ Signed [facility]09-11-2025 History and physical note [facility] Medical Records Department [address] [place] [address] History & Physical Exam 06/22/25 0933 MR#: [id number] Acct: [id number] Name: LUZ CLANCY Taiwo Rep #:[id number] : 1940 85 From: Isaiah gibson MD PCP: MARILEE Partida Status:[facility] Location: [place] [address] History and Physical Date of Admission: 06/22/25 Intake Vital Signs 06/08/2510:24 06/15/2509:38 Height 5 ft 5 in 5 ft 5 in Weight: 124 lb 4 oz 123 lb BMI 20.7 20.5 BP 160/83 H 144/78 H Blood Pressure Location Rt brachial Rt brachial Position Sitting Sitting Respiration 18 17 Pulse 80 83 Pulse Source Monitor Monitor Temp 98.2 F Pulse Oximetry (%) 100 99 Oxygen Delivery Method room air room air Intake Visit Reasons: PORT PLACEMENT Chief Complaint: port placement Is patient in pain?: No Allergies doxycycline Adverse Reaction (Severe, Verified 06/15/25 09:41) Nauseaerythromycin base (Erythromycin Base) Adverse Reaction (Severe, Verified 06/15/25 09:41) Nauseaclindamycin Adverse Reaction (Intermediate, Verified 06/15/25 09:41) ThrushPenicillins Adverse Reaction (Intermediate, Verified 06/15/25 09:41) Hives Medications ?Medication ?Instructions ?Recorded ?Confirmed ?Type Calcium Carbonate/Vitamin D 1 tab PO DAILY 08/01/13 06/15/25 History Multivitamins,Therapeutic 1 tab PO DAILY 08/01/13 06/15/25 History lactobacillus combination no.9 4 4,000 mmu cells PO DAILY 03/23/23 History billion cell capsule (Adult 50 Plus Probiotic) metoprolol succinate 50 mg 50 mg PO QDAY #90 tabs 01/11/25 06/15/25 Rx tablet,extended release 24 hr (Toprol XL) levothyroxine 75 mcg tablet 50 mcg PO QDAY 04/12/25 06/15/25 History lidocaine-prilocaine 2.5 %-2.5 % 1 applic topical ONCE PRN port 06/13/25 06/15/25 Rx topical cream access 30 days #30 grams ondansetron 8 mg disintegrating 8 mg PO Q8H PRN nausea and 06/13/25 09/0 4/25 Rx tablet vomiting #30 tabs prochlorperazine maleate 10 mg 10 mg PO Q6H PRN nausea and 06/13/2502/03 Rx tablet vomiting #30 tabs Have you fallen in the past year?: No PFSH Medical History (Updated 06/15/25 @ 09:38 by Niya Taveras) Encounter for education CKD (chronic kidney disease), stage II HTN (hypertension) Diverticulosis Cancer Gastric reflux Pulmonary nodule Surgical History History of tubal ligation History of hysterectomy Family History Mother Colon cancer Breast cancerDaughter Thyroid disorderFather No problems noted. Social History household members: none Smoking Status: Never smoker alcohol intake: never substance use type: does not use HPI HPI HPI: Patient is an 85-year-old female here for port placement for chemotherapy. ROS General General: No weight change, appetite, fatigue, colon cancer, breast cancer or weakness HEENT HEENT: No difficulty swallowing, eye injury, eye surgery, swollen glands or hoarseness Endo Endocrine: Yes thyroid disease; No diabetes mellitus, thyroid cancer, Hair loss, heat intolerance or cold intolerance Skin Skin: No rash or changing moles Musc Musculoskeletal: No back problems, arthritis, rheumatoid arthritis, gout or joint pain Cardio Cardiovascular: Yes high blood pressure; No murmur, pacemaker, heart disease, atrial fibrillation, heart attack, heart stent, palpitations, shortness of breath with exertion or chest pain Psych Psychiatric: No depression, anxiety or hearing voices Resp Respiratory: Yes shortness of breath, No sleep apnea, Yes cough, No COPD, No asthma, No emphysema and No wheezing Gastro Gastrointestinal: No abdominal pain, No nausea or vomiting, No diarrhea, No constipation, No blood in stool, No acid reflux, No hemorrhoids, No ulcers, No gallbladder problem and No black,tarry stools Yoseph Hematologic: No blood thinners, No blood disorders, No bleeding, No anemia and No blood clots Neuro Neurologic: No system reviewed and no additional complaints, except as documented, No as per HPI, No abnormal gait, No abnormal hearing, No abnormal movements, No abnormal speech, No behavioral changes, No burning sensations, No confusion, No convulsions, No disequilibrium, No dizziness, No localized weakness, No frequent falls, No headache(s), No lack of coordination, No loss ofvision, No memoryloss, No numbness, No other visual disturbances, No radicular pain, No restless legs, No sensory deficit, No syncope, No tingling, No tremor(s), No weakness and No other Exam Const General: cooperative Orientation: alert and oriented x3 HENMT Head: normal to inspection Neck Neck: normal visual inspection and full ROM Chest Chest palpation & inspection: normal inspection of the chest Resp Effort & Inspection: normal respiratory effort Auscultation: clear to auscultation bilaterally Cardio Rate: regular rate Rhythm: regular rhythm GI Inspection: non-distended Palpation: soft and nontender Skin General: no rashes or lesions noted Neuro General: patient alert and patient oriented x3 Extrem General: full ROM Psych Appearance: grossly normal Mental Status: mental status grossly normal Assessment and Plan Assessment and Plan (1) Encounter for insertion of venous access port: Status: Acute Plan: I discussed placement of right chest port with the patient in detail. I discussed the risks of the procedure such as bleeding, infection, pneumothorax, line infection or DVT. Patient understands all the risks and is willing to proceed. Isiaah Lerner MD Pager: [facility] [address] [place] [address], [address] [place] [address] Office: I have examined the patient and the H&P has been reviewed. There are no clinicalchanges since date of exam. 06/22/25 0934 Cosigner Signature (if applicable): CC: MARILEE Interiano; Dr. Isaiah Lerner MD~ Signed [facility]09-11-2025 [facility] Consult note [facility] Medical Records Department [address] [place] [address] Pre-Anesthesia Evaluation 06/22/25 0923 MR#: [id number] Acct: [id number] Name: LUZ CALNCY Rep #:[id number] : 1940 85 From: Rolly Casey MD PCP: MARILEE Partida Status:REG SDC Y Race: C Location: [place] [address] ASA Classification* ASA Classification ASA Classification: 3 Assessment & Plan Anesthesia* Anesthesia Assessment Anesthesia Assessment: Discussed sedation and/or anesthesia options, risks, benefits, and alternatives with patient/parents/legal guardian/POA. Questions invited. The patient/parents/legal guardian/POA seems to understand and agrees to proceedwith anesthesia plan. Reviewed the physical assessment, medical history, allergy history and patient home medications list prior to surgery/procedure/anesthetic and documented any changes. Performed airway and anesthesia risk assessments. Anesthesia Type Anesthesia Type: MAC History Source History Obtained from:: Patient and Chart Anesthesia Focused Assessment* Temperature: 97.5 F Pulse Rate: 74 Blood Pressure: 160/79 Respiratory Rate: 18 Pulse Ox: 100 Oxygen Delivery Method: Room Air Airway Assessment Mouth opens: >3 cm Mallampati Score: III Teeth Condition: Dentures (Take out after patient has full upper and lower dentures.) Neck Range of motion (ROM): Full ROM Labs Anesthesia Preop lab: CBC WBC 5.8 K/mm3 (4.4-11.0) 05/22/25 03:30 05/22/25 RBC 3.70 M/mm3 (4.2-5.4) L 05/22/25 03:30 05/22/25 Hgb 10.4 g/dL (12.0-15.0) L 05/22/25 03:30 5 Hct 32.2 % (37-47) L 05/22/25 03:30 05/22/25 Plt Count 323 K/mm3 (150-450) 05/22/25 03:30 05/22/25 CHEMISTRY Potassium 4.4 mmol/L (3.3-5.1) 05/29/25 14:17 05/29/25 Sodium 135 mmol/L (133-145) 05/29/25 14:17 05/29/25 Magnesium 1.9 mg/dL (1.5-2.2) 05/21/25 05:40 05/21/25 Phosphorus 3.0 mg/dL (2.7-4.5) 05/20/25 06:02 05/20/25 BUN 9 mg/dL (4-19) 05/29/25 14:17 05/29/25 Creatinine 0.66 mg/dL (0.70-1.20) L 05/29/25 14:17 Glucose 98 mg/dL (70-99) 05/29/25 14:17 05/29/25 TSH 4.410 uIU/mL (0.300-4.200) H 05/29/25 14:17 COAG PT 13.0 SECONDS (11.7-14.9) 05/10/25 07:39 Pre-Assessment Diagnosis/Proposed Procedure Planned Operative Procedure(s): INSERTION VASCULAR PORT RIGHT POSS LEFT Anesthesia History Anesthesia History - principal solutions architect: Anesthesia History - principal solutions architect Hx Hospitalization Yes: BOWEL BLOCKAGE 05/29/25 06/16/25 09:01 Any Problems With Anesthesia No 06/16/25 09:01 Cholinesterase deficiency No 06/16/25 09:01 You/Your Family Experience No 06/16/25 09:01 fever (hyperthermia) with Relationship Recent Exposure to Contagious No 06/22/25 08:47 Disease Does patient have nerve No 06/16/25 09:01 stimulator Patient instructed to have device shut off --Does patient have Pacemaker No 06/22/25 08:47 or ICD? When Was Last Pacemaker Check QUESTION #4 FULL TEXT: You/Your Family Experience fever (hyperthermia) with Anesthesia Last Oral Intake Last Oral intake: Last Oral Intake NPO since 20:00 06/22/25 08:47 Meds taken in AM with sips of Yes 06/22/25 08:47 water? Meds patient instructed to metoprolol, levothyroxine 06/22/25 08:47 take am of surgery Any additional information?: Yes Meds taken in AM with sips of water?: Yes PONV PONV - principal solutions architect: PONV - principal solutions architect Female Yes 06/16/25 09:01 HX of Motion Sickness No 06/16/25 09:01 HX of N/V After Surgery No 06/16/25 09:01 Non-Smoker Yes 06/16/25 09:01 Duration of Surgery greater No 06/16/25 09:01 than 60 minutes Number of Risk Factors 2 06/16/25 09:01 PONV Score Moderate Risk 06/16/25 09:01 Height & Weight Height & Weight: Anesthesia: Height & Weight Height 5 ft 5 in 06/22/25 08:47 Weight: 55.2 kg 06/22/25 08:47 Body Mass Index (BMI) 20.2 06/22/25 08:47 Respiratory Assessment Respiratory Assessment - principal solutions architect: Respiratory Tract Infection Hx - principal solutions architect Hx Respiratory Tract Infection No 06/16/25 09:01 STOP Sleep Apnea STOP Sleep Apnea - principal solutions architect: STOP Sleep Apnea - principal solutions architect Hx Hypertension Yes: CONTROLLED WITH MED 06/16/25 09:01 Hx Sleep Apnea No 06/16/25 09:01 CPAP BIPAP Do you snore loudly (louder No 06/16/25 09:01 than talking or can be heard Do you often feel tired/ No 06/16/25 09:01 fatigued/ sleepy during daytime? Has anyone observed you stop No 06/16/25 09:01 breathing during sleep? STOP Results Negative 06/16/25 09:01 QUESTION #5 FULL TEXT : Do you snore loudly (louder than talking or can be heard through closeddoors)? Tobacco Use History Tobacco Use History - principal solutions architect: Tobacco Use History - principal solutions architect Tobacco Use Smoking Status Never smoker 06/16/25 09:01 Hx Tobacco Use No 06/16/25 09:01 Years Smoking Packs Smoked per Day Smoking Cessation Date was within the last 15 years Hx Smoking Cessation Date Hx Smoking Cessation Counseling Hematologic Medial History Hematologic Hx - principal solutions architect: Hematologic Medical Hx - sugar boiler Hx of Blood Transfusion No 06/16/25 09:01 Hx of Transfusion in last 3 No 06/16/25 09:01 Months Date of Last Transfusion (if within last 3 months) Ever experience any problems No 06/16/25 09:01 with transfusion(s)? Specify any problems Hx of Preganancy in last 3 No 06/16/25 09:01 Months Nurse Filling Out Transfusion DSCHRIBER 06/16/25 09:01 & Questions: Date: 06/16/25 06/16/25 09:01 Time: 09:04 06/16/25 09:01 Patient unable to answer at this time (ie. confused, unrespo /Reproduction History /Reproductive History - principal solutions architect: /Reproductive Hx- principal solutions architect Hx Now No 06/16/25 09:01 Gestational Age (in weeks): EDC: Hx Hx Para Hx Section SAB No 06/16/25 09:01 Active Medications Active Medications: Current Medications Generic Name Dose Route Start Last Admin Trade Name Freq PRN Reason Stop Dose Admin Cefazolin Sodium 2 gm/ Sodium 110 mls @ 200 mls/hr 06/22/25 10:00 Chloride IV 06/22/25 10:32 INTRAOP ONE Lactated Ringer's 1,000 mls @ 15 mls/hr 06/22/25 08:30 06/22/25 09:11 IV 15 mls/hr .Q48H YARI Administration PFSH Medical History Thyroid disease Wears glasses Wears dentures Anxiety History of hiatal hernia Non-smoker Shortness of breath on exertion History of edema History of Holter monitoring Cardiology follow-up encounter History of echocardiogram History of stress test HTN (hypertension) Cancer Diverticulosis Pulmonary nodule Home Medications ?Medication ?Instructions ?Recorded ?Last Taken ?Type Calcium Carbonate/Vitamin D 1 tab PO DAILY 08/01/13 History Multivitamins,Therapeutic 1 tab PO DAILY 08/01/1306/12 History lactobacillus combination no.9 4 4,000 mmu cells PO DA NURIS 03/23/23 06/21/25 History billion cell capsule (Adult 50 Plus Probiotic) metoprolol succinate 50 mg 50 mg PO QDAY #90 tabs /12/0606/22/25 Rx tablet,extended release 24 hr (Toprol XL) lidocaine-prilocaine 2.5 %-2.5 % 1 applic topical ONCE PRN port 06/13/25 Unknown Rx topical cream access 30 days #30 grams ondansetron 8 mg disintegrating 8 mg PO Q8H PRN nausea and 06/13/25 Unknown Rx tablet vomiting #30 tabs prochlorperazine maleate 10 mg 10 mg PO Q6H PRN nausea and 06/13/25 Unknown Rx tablet vomiting #30 tabs levothyroxine 50 mcg tablet 50 mcg PO DAILY 06/16/25 0 06/22/25 History Allergy/AdvReac Type Severity Reaction Status Date / Time doxycycline AdvReac Severe Nausea Verified 06/22/25 08:42 erythromycin base AdvReac Severe Nausea Verified 06/22/25 08:42 (Erythromycin Base) clindamycin AdvReac Intermediate Thrush Verified 06/22/25 08:42 Penicillins AdvReac Intermediate Hives Verified 06/22/25 08:42 Family History Mother Colon cancer Breast cancer Daughter Thyroid disorder Father No problems noted. Surgical History Hx of oral surgery Hx of colonoscopy History of lung biopsy History of tubal ligation History of hysterectomy Social History household members: none Smoking Status: Never smoker alcohol intake: never substance use type: does not use Review of Systems (Anesthesia) ROS Narrative System reviewed and no additional complaints, except as documented. 06/22/25 0932 elliot SANTIAGO> Date _ [facility]olly Casey [facility]: Date CC: ~ Signed [facility]09-04-2025 Progress [facility] [address] [place] [address]. [address] [place] [address] OFFICE VISIT Date of Service: 06/15/25 MR#: [id number] Acct: [id number] Name: LUZ CLANCY Rep #: [id number] : 1940 Provider: Dr. Deborah Lerner MD Age/Sex: 85/F Location: [facility] Status: Signed Intake Vital Signs 06/08/25 10:24 06/15/25 09:38 Height 5 ft 5 in 5 ft 5 in Weight: 124 lb 4 oz 123 lb BMI 20.7 20.5 BP 160/83 H 144/78 H Blood Pressure Location Rt brachial Rt brachial Position Sitting Sitting Respiration 18 17 Pulse 80 83 Pulse Source Monitor Monitor Temp 98.2 F Pulse Oximetry (%) 100 99 Oxygen Delivery Method room air room air Intake Visit Reasons: PORT PLACEMENT Chief Complaint: port placement Is patient in pain?: No Allergies doxycycline Adverse Reaction (Severe, Verified 06/15/25 09:41) Nausea erythromycin base (Erythromycin Base) Adverse Reaction (Severe, Verified 06/15/25 09:41) Nausea clindamycin Adverse Reaction (Intermediate, Verified 06/15/25 09:41) Thrush Penicillins Adverse Reaction (Intermediate, Verified 06/15/25 09:41) Hives Medications ?Medication ?Instructions ?Recorded ?Confirmed ?Type Calcium Carbonate/Vitamin D 1 tab PO DAILY 08/01/13 History Multivitamins,Therapeutic 1 tab PO DAILY 08/01/1302/03 History lactobacillus combination no.9 4 4,000 mmu cells PO DA NURIS 03/23/23 06/15/25 History billion cell capsule (Adult 50 Plus Probiotic) metoprolol succinate 50 mg 50 mg PO QDAY #90 tabs 12/0606/15/25 Rx tablet,extended release 24 hr (Toprol XL) levothyroxine 75 mcg tablet 50 mcg PO QDAY 04/12/25 History lidocaine-prilocaine 2.5 %-2.5 % 1 applic topical ONCE PRN port 06/13/25 06/15/25 Rx topical cream access 30 days #30 grams ondansetron 8 mg disintegrating 8 mg PO Q8H PRN nausea and 06/13/25 06/15/25 Rx tablet vomiting #30 tabs prochlorperazine maleate 10 mg 10 mg PO Q6H PRN nausea and 06/13/25 06/15/25 Rx tablet vomiting #30 tabs Have you fallen in the past year?: No PFSH Medical History (Updated 06/15/25 @ 09:38 by Niya Taveras) Encounter for education CKD (chronic kidney disease), stage II HTN (hypertension) Diverticulosis Cancer Gastric reflux Pulmonary nodule Surgical History History of tubal ligation History of hysterectomy Family History Mother Colon cancer Breast cancer Daughter Thyroid disorder Father No problems noted. Social History household members: none Smoking Status: Never smoker alcohol intake: never substance use type: does not use HPI HPI HPI: Patient is an 85-year-old female here for port placement for chemotherapy. ROS General General: No weight change, appetite, fatigue, colon cancer, breast cancer or weakness HEENT HEENT: No difficulty swallowing, eye injury, eye surgery, swollen glands or hoarseness Endo Endocrine: Yes thyroid disease; No diabetes mellitus, thyroid cancer, Hair loss, heat intolerance or cold intolerance Skin Skin: No rash or changing moles Musc Musculoskeletal: No back problems, arthritis, rheumatoid arthritis, gout or joint pain Cardio Cardiovascular: Yes high blood pressure; No murmur, pacemaker, heart disease, atrial fibrillation, heart attack, heart stent, palpitations, shortness of breath with exertion or chest pain Psych Psychiatric: No depression, anxiety or hearing voices Resp Respiratory: Yes shortness of breath, No sleep apnea, Yes cough, No COPD, No asthma, No emphysema and No wheezing Gastro Gastrointestinal: No abdominal pain, No nausea or vomiting, No diarrhea, No constipation, No blood in stool, No acid reflux, No hemorrhoids, No ulcers, No gallbladder problem and No black,tarry stools Yoseph Hematologic: No blood thinners, No blood disorders, No bleeding, No anemia and No blood clots Neuro Neurologic: No system reviewed and no additional complaints, except as documented, No as per HPI, No abnormal gait, No abnormal hearing, No abnormal movements, No abnormal speech, No behavioral changes, No burning sensations, No confusion, No convulsions, No disequilibrium, No dizziness, No localized weakness, No frequent falls, No headache(s), No lack of coordination, No loss ofvision, No memoryloss, No numbness, No other visual disturbances, No radicular pain, No restless legs, No sensory deficit, No syncope, No tingling, No tremor(s), No weakness and No other Exam Const General: cooperative Orientation: alert and oriented x3 HENMT Head: normal to inspection Neck Neck: normal visual inspection and full ROM Chest Chest palpation & inspection: normal inspection of the chest Resp Effort & Inspection: normal respiratory effort Auscultation: clear to auscultation bilaterally Cardio Rate: regular rate Rhythm: regular rhythm GI Inspection: non-distended Palpation: soft and nontender Skin General: no rashes or lesions noted Neuro General: patient alert and patient oriented x3 Extrem General: full ROM Psych Appearance: grossly normal Mental Status: mental status grossly normal Assessment and Plan Assessment and Plan (1) Encounter for insertion of venous access port: Status: Acute Plan: I discussed placement of right chest port with the patient in detail. I discussed the risks of the procedure such as bleeding, infection, pneumothorax, line infection or DVT. Patient understands all the risks and is willing to proceed. Isaiah Lerner MD Pager: [facility] [address] [place] [address], [address] [place] [address] Office: Coding Level of Care Code Off vis,est,level 3 Diagnoses Encounter for insertion of venous access port Z45.2 Clinical Quality Measures Falls Risk Screening/Assistive Devices Have you fallen in the past year?: No 06/15/25 0957 [email or web address] SANTIAGO> Date _ Isaiah Lerner MD [facility] Signature: Date (if applicable) CC: MARILEE Interiano ~ [facility]09-04-2025 Progress note Author Isaiah Lerner [facility] Note Date/Time June 15, 2025 9:57am [facility] [address] [place] [address] OFFICE VISIT Date of Service: 06/15/25 MR#: [id number] Acct: [id number] Name: LUZ CLANCY Rep #: [id number] : 1940 Provider: Dr. Deborah Lerner MD Age/Sex: 85/F Location: [facility] Status: Signed Intake Vital Signs 06/08/25 10:24 06/15/25 09:38 Height 5 ft 5 in 5 ft 5 in Weight: 124 lb 4 oz 123 lb BMI 20.7 20.5 BP 160/83 H 144/78 H Blood Pressure Location Rt brachial Rt brachial Position Sitting Sitting Respiration 18 17 Pulse 80 83 Pulse Source Monitor Monitor Temp 98.2 F Pulse Oximetry (%) 100 99 Oxygen Delivery Method room air room air Intake Visit Reasons: PORT PLACEMENT Chief Complaint: port placement Is patient in pain?: No Allergies doxycycline Adverse Reaction (Severe, Verified 06/15/25 09:41) Nausea erythromycin base (Erythromycin Base) Adverse Reaction (Severe, Verified 06/15/25 09:41) Nausea clindamycin Adverse Reaction (Intermediate, Verified 06/15/25 09:41) Thrush Penicillins Adverse Reaction (Intermediate, Verified 06/15/25 09:41) Hives Medications ?Medication ?Instructions ?Recorded ?Confirmed ?Type Calcium Carbonate/Vitamin D 1 tab PO DAILY 08/01/13 History Multivitamins,Therapeutic 1 tab PO DAILY 08/01/1302/03 History lactobacillus combination no.9 4 4,000 mmu cells PO DA NURIS 03/23/23 06/15/25 History billion cell capsule (Adult 50 Plus Probiotic) metoprolol succinate 50 mg 50 mg PO QDAY #90 tabs 12/0606/15/25 Rx tablet,extended release 24 hr (Toprol XL) levothyroxine 75 mcg tablet 50 mcg PO QDAY 04/12/25 History lidocaine-prilocaine 2.5 %-2.5 % 1 applic topical ONCE PRN port 06/13/25 06/15/25 Rx topical cream access 30 days #30 grams ondansetron 8 mg disintegrating 8 mg PO Q8H PRN nausea and 06/13/25 06/15/25 Rx tablet vomiting #30 tabs prochlorperazine maleate 10 mg 10 mg PO Q6H PRN nausea and 06/13/25 06/15/25 Rx tablet vomiting #30 tabs Have you fallen in the past year?: No PFSH Medical History (Updated 06/15/25 @ 09:38 by Niya Taveras) Encounter for education CKD (chronic kidney disease), stage II HTN (hypertension) Diverticulosis Cancer Gastric reflux Pulmonary nodule Surgical History History of tubal ligation History of hysterectomy Family History Mother Colon cancer Breast cancer Daughter Thyroid disorder Father No problems noted. Social History household members: none Smoking Status: Never smoker alcohol intake: never substance use type: does not use HPI HPI HPI: Patient is an 85-year-old female here for port placement for chemotherapy. ROS General General: No weight change, appetite, fatigue, colon cancer, breast cancer or weakness HEENT HEENT: No difficulty swallowing, eye injury, eye surgery, swollen glands or hoarseness Endo Endocrine: Yes thyroid disease; No diabetes mellitus, thyroid cancer, Hair loss, heat intolerance or cold intolerance Skin Skin: No rash or changing moles Musc Musculoskeletal: No back problems, arthritis, rheumatoid arthritis, gout or joint pain Cardio Cardiovascular: Yes high blood pressure; No murmur, pacemaker, heart disease, atrial fibrillation, heart attack, heart stent, palpitations, shortness of breath with exertion or chest pain Psych Psychiatric: No depression, anxiety or hearing voices Resp Respiratory: Yes shortness of breath, No sleep apnea, Yes cough, No COPD, No asthma, No emphysema and No wheezing Gastro Gastrointestinal: No abdominal pain, No nausea or vomiting, No diarrhea, No constipation, No blood in stool, No acid reflux, No hemorrhoids, No ulcers, No gallbladder problem and No black,tarry stools Yoseph Hematologic: No blood thinners, No blood disorders, No bleeding, No anemia and No blood clots Neuro Neurologic: No system reviewed and no additional complaints, except as documented, No as per HPI, No abnormal gait, No abnormal hearing, No abnormal movements, No abnormal speech, No behavioral changes, No burning sensations, No confusion, No convulsions, No disequilibrium, No dizziness, No localized weakness, No frequent falls, No headache(s), No lack of coordination, No loss ofvision, No memory loss, No numbness, No other visual disturbances, No radicular pain, No restless legs, No sensory deficit, No syncope, No tingling, No tremor(s), No weakness and No other Exam Const General: cooperative Orientation: alert and oriented x3 HENMT Head: normal to inspection Neck Neck: normal visual inspection and full ROM Chest Chest palpation & inspection: normal inspection of the chest Resp Effort & Inspection: normal respiratory effort Auscultation: clear to auscultation bilaterally Cardio Rate: regular rate Rhythm: regular rhythm GI Inspection: non-distended Palpation: soft and nontender Skin General: no rashes or lesions noted Neuro General: patient alert and patient oriented x3 Extrem General: full ROM Psych Appearance: grossly normal Mental Status: mental status grossly normal Assessment and Plan Assessment and Plan (1) Encounter for insertion of venous access port: Status: Acute Plan: I discussed placement of right chest port with the patient in detail. I discussed the risks of the procedure such as bleeding, infection, pneumothorax, line infection or DVT. Patient understands all the risks and is willing to proceed. Isaiah Lerner MD Pager: [facility] [address] [place] [address] [address] [place] [address] Office: Coding Level of Care Code Off vis,est,level 3 Diagnoses Encounter for insertion of venous access port Z45.2 Clinical Quality Measures Falls Risk Screening/Assistive Devices Have you fallen in the past year?: No 06/15/25 0957 <Electronically signed by Isaiah dobbs MD> Date _ Isaiah Lerner MD [facility] Signature: Date (if applicable) CC: MARILEE Interiano ~ [facility] [employer] Work Phone: 1(452) 209-256308-12-2025 [facility]08-11-2025 Consult note [facility] Medical Records Department [address] [place] [address] Counseling Note - Pharmacy 05/22/25 1316 MR#: [id number] Acct: [id number] Name: LUZ CLANCY Rep #:[id number] : 1940 85 From: Mavis Vizcaino PCP: Lela Jaydon, COMMUTATOR PRESSER-C Status:ADM IN Y Location: [place] [address] Pharmacy OR Med Reconciliation Pharmacy Service has performed discharge [...] 50 mcg PO QDAY 04/12/25 05/22/25 1316 Date _ Mavis Garcia Signature (if applicable): Date CC: ~ Signed [facility]08-11-2025 Consult note Author Mavis Vizcaino [facility] Note Date/Time May 22, 2025 4: 25pm [facility] Medical Records Department [address] [place] [address] Counseling Note - Pharmacy 05/22/25 1316 MR#: [id number] Acct: [id number] Name: LUZ CLANCY Rep #:[id number] : 1940 85 From: Mavis Vizcaino PCP: MARILEE Partida Status:ADM IN Y Location: [place] [address] Pharmacy OR Med Reconciliation Pharmacy Service has performed discharge [...] Signature (if applicable): Date CC: ~ Signed [facility] Work Phone: 1(425) 484-311708-11-2025 Progress note Author Isaiah Lerner [facility] Note Date/Time May 22, 2025 12 :17pm [facility] Medical Records Department [address] [place] [address] Progress Note - Surgery 05/22/25 1216 MR#: [id number] Acct: [id number] Name: LUZ CLANCY Rep #:[id number] : 1940 85 From: Isaiah gibson MD PCP: MARILEE Partida Status:ADM IN Location: [place] [address] Subjective Subjective This morning the patient reports [...] (Auto) 75.5 H, Lymph % (Auto) 12.3 L,Willacy % (Auto) 10.2 H, Eos % (Auto) [...] lower lobe abutting the heart. Reading Location: [place] [address] Physical Exam Const oriented x3 and no [...] follow-up as needed. Isaiah Lerner MD Pager: [facility] [address] [place] [address], [address] [place] [address] Office: 05/22/25 1217 <Electronically signed by Isaiah Lerner MD> Cosigner Signature (if applicable): CC: ~ Signed [facility] Work Phone: 1(581) 549-634008-11-2025 Discharge summary Author Joseph Lindsey [facility] Note Date/Time May 22, 2025 12 :06pm [facility] Medical Records Department [address] [place] [address] Instructions for Home/Discharge Instructions 05/22/25 1156 MR#: [id number] Acct: [id number] Name: LUZ CLANCY Rep #:[id number] : 1940 85 From: Joseph turcios MD [...] by Joseph Lindsey MD>Joseph Lindsey MD CC: COMMUTATOR PRESSER-C Lela Interiano; Dr. Isaiah Lerner MD; Dr. Najma Cates MD; Dr. Brian Negrete MD ~ Signed [facility] Work Phone: 1(513) 884-818408-11-2025 Progress note [facility] Medical Records Department [address] [place] [address] Progress Note - Surgery 05/22/25 1216 MR#: [id number] Acct: [id number] Name: LUZ CLANCY Rep #:[id number] : 1940 85 From: Isaiah gibson MD PCP: MARILEE Partida Status:ADM IN Location: [place] [address] Subjective Subjective This morning the patient reports [...] and Output for Last 24 Hours 05/20/25 05/21/2505/22/25 23:59 23:59 23:59 Intake Total 1180 / [...] %(Auto) 75.5 H, Lymph % (Auto) 12.3 L,Willacy % (Auto) 10.2 H, Eos % (Auto) [...] lower lobe abutting the heart. Reading Location: [facility] Physical Exam Const oriented x3 and no [...] can be discharged home andfollow-up as needed. Iasiah Lerner MD Pager: [facility] [address] [facility], [address] [place] [address] Office: 05/22/25 1217 Cosigner Signature (if applicable): CC: ~ Signed [facility]08-11-2025 Discharge summary [facility] Medical Records Department [address] [place] [address] Instructions for Home/Discharge Instructions 05/22/25 1156 MR#: [id number] Acct: [id number] Name: LUZ CLANCY Rep #:[id number] : 1940 85 From: Joseph turcios MD [...] can be placed): Home, Self Care 05/22/25 1206Nicgeno Lindsey MD CC: MARILEE Interiano; Dr. Isaiah Lerner MD; Dr. Najma Cates MD; Dr. Brian Negrete MD ~ Signed [facility]08-11-2025 Radiology Diagnostic study note [facility] Imaging Services [address] [place], [place] [address] Abdomen/Pelvis WITH Contrast MR#: [id number] Acct: [id number] Name: LUZ CLANCY Rep #: [id number] : 1940 F 85 From: Diego Perez MD PCP: MARILEE Partida Status: ADM IN Study:Abdomen/Pelvis WITH Contrast Date of Ex am: 05/22/25 Exam# [id number] Ordering Dr: Isaiah Gresham MD PROCEDURE: ABDOMEN/PELVIS [...] lower lobe abutting the heart. Reading Location: [place] [address] CC: MARILEE Interiano; Dr. Isaiah Lerner MD ~ Brand Recorder: Signed [facility]08-10-2025 Progress note Author Geovanna Nino [facility] Note Date/Time May 21, 2025 9: 36am [facility] Medical Records Department [address] [place] [address] Progress Note - Surgery 05/21/25933 MR#: [id number] Acct: [id number] Name: LUZ CLANCY Rep #:[id number] : 1940 85 From: Geovanna Nino MD PCP: MARILEE Partida Status:ADM IN Location: [place] [address] Subjective Subjective Patient states she still having [...] (Auto) 71.3 H, Lymph % (Auto) 13.8 L,Willacy % (Auto) 13.2 H, Eos % (Auto) [...] the OR schedule. Geovanna Nino M.D. Pager: [phone] [facility] [address] [place] [address], [facility], [address] [place] [address] Office: [phone] Charges/Coding Multi Select Codes Visit Charges Visit Charges: 05788 Subs Hosp L2 05/21/25 0953 <Electronically signed by Geovanna Nino MD> Cosigner Signature (if applicable): CC: ~ Signed [facility] Work Phone: 1(256) 189-734208-10-2025 Radiology Diagnostic study note [facility] Imaging Services [address] [place], [place] [address] Abd Inc Decub and/or Erect MR#: [id number] Acct: [id number] Name: LUZ CLANCY Rep #: [id number] : 1940 F 85 From: Maribeth Kent MD PCP: MARILEE Partida Status: ADM IN Study:Abd Inc Decub and/or Erect Date of Exam : 05/21/25 Exam# [id number] Ordering Dr: Juan Manuel Negrete MD PROCEDURE: [...] Erect IMPRESSION: No acute abnormality. Reading Location: [facility] CC: COMMUTATOR PRESSER-C Lela Interiano; Dr. Brian Negrete MD ~ Brand Recorder: Signed [facility]08-10-2025 Progress note Author Brian Negrete [facility] Note Date/Time May 21, 2025 8: 53am [facility] Medical Records Department [address] [place] [address] Progress Note - Hospitalist 05/21/25 0831 MR#: [id number] Acct: [id number] Name: LUZ CLANCY Rep #:[id number] : 1940 85 From: Brian Negrete MD PCP: MARILEE Partida Status:ADM IN Location: [place] [address] Reason for Visit Chief Complaint: Abdominal pain, [...] (Auto) 71.3 H, Lymph % (Auto) 13.8 L,Willacy % (Auto) 13.2 H, Eos % (Auto) [...] to therapy Charges/Coding Visit Charges Inpatient E&M: 24058 Subs Hosp L2 05/21/25 6657 <Electronically signed by Brian Negrete MD> Cosigner Signature (if applicable): CC: ~ Signed [facility] Work Phone: 1(383) 443-976908-10-2025 Progress note [facility] Medical Records Department [address] [place] [address] Progress Note - Surgery 05/21/2534 MR#: [id number] Acct: [id number] Name: LUZ CLANCY Rep #:[id number] : 1940 85 From: Geovanna Nino MD PCP: Lela Interiano COMMUTATOR PRESSERTravisC Status:ADM IN Location: [place] [address] Subjective Subjective Patient states she still having [...] %(Auto) 71.3 H, Lymph % (Auto) 13.8 L,Willacy % (Auto) 13.2 H, Eos % (Auto) [...] the OR schedule. Geovanna Nino M.D. Pager: [phone] [facility] [address] [place] [address], [facility], [address] [place] [address] Office: [phone] Charges/Coding Multi Select Codes Visit Charges Visit Charges: 55985 Subs Hosp L2 05/21/25 0936 Cosigner Signature (if applicable): CC: ~ Signed [facility]08-10-2025 Progress note [facility] Medical Records Department [address] [place] [address] Progress Note - Hospitalist 05/21/25 0831 MR#: [id number] Acct: [id number] Name: LUZ CLANCY Rep #:[id number] : 1940 85 From: Brian Negrete MD PCP: MARILEE Partida Status:ADM IN Location: [place] [address] Reason for Visit Chief Complaint: Abdominal pain, [...] %(Auto) 71.3 H, Lymph % (Auto) 13.8 L,[place] % (Auto) 13.2 H, Eos % (Auto) [...] to therapy Charges/Coding Visit Charges Inpatient E&M: 16583 Subs Hosp L2 05/21/25 0853 Cosigner Signature (if applicable): CC: ~ Signed [facility]08-09-2025 Progress note Author Brian Negrete [facility] Note Date/Time May 20, 2025 10: 28am [facility] Medical Records Department [address] [place] [address] Progress Note - Hospitalist 05/20/25 0729 MR#: [id number] Acct: [id number] Name: LUZ CLANCY Rep #:[id number] : 1940 85 From: Brian Negrete MD PCP: Lela Interiano COMMUTATOR PRESSER-Lilian Status:ADM IN Location: [place] [address] Reason for Visit Chief Complaint: Abdominal pain, [...] 79.3 H, Lymph % (Auto) 6.6 L, [place] % (Auto) 12.8 H, Eos % (Auto) [...] (Auto) 67.1, Lymph % (Auto) 13.8 L, [place] % (Auto) 16.2 H, Eos % (Auto) [...] a partial distal small-bowel obstruction. Reading Location: [place] [address] Physical Exam Narrative GENERAL: cooperative HEENT: Atraumatic; [...] Subcu Lovenox. Charges/Coding Visit Charges Inpatient E&M: 95415 Subs Hosp L2 05/20/25 1028 <Electronically signed by Brian Negrete MD> Cosigner Signature (if applicable): CC: ~ Signed [facility] Work Phone: 1(628) 923-115908-09-2025 Progress note Author Geovanna Nino [facility] Note Date/Time May 20, 2025 8:4 0am [facility] Medical Records Department [address] [place] [address] Progress Note - Surgery 05/20/25 0838 MR#: [id number] Acct: [id number] Name: LUZ CLANCY Rep #:[id number] : 1940 85 From: Geovanna Nino MD PCP: MARILEE Partida Status:ADM IN Location: [place] [id number]- 1 Subjective Subjective Patient is having flatus and [...] (Auto) 67.1, Lymph % (Auto) 13.8 L, [place] % (Auto) 16.2 H, Eos % (Auto) [...] a partial distal small-bowel obstruction. Reading Location: [place] [address] Physical Exam Const oriented x3 and no apparent distress Resp normal respiratory effort Cardio regular rate GI soft to palpation GI Narrative: Mild distention, nontender, no peritoneal signs Assessment & Plan Assessment/Plan (1) Intractable nausea and vomiting: PLAN: Patient's KUB does look slightly improved to me and patient is having flatus we will start clears and still encourage ambulation. Geovanna Nino M.D. Pager: [phone] [facility] [address] [place] [address], [facility], [address] [place] [address] Office: [phone] Charges/Coding Visit Charges Inpatient E&M: 66693 Subs Hosp L2 05/20/25 0840 <Electronically signed by Geovanna Nino MD> Cosigner Signature (if applicable): CC: ~ Signed [facility] Work Phone: 1(708) 437-590508-09-2025 Progress note [facility] Medical Records Department [address] [place] [address] Progress Note - Hospitalist 05/20/25728 MR#: [id number] Acct: [id number] Name: LUZ CLANCY Rep #:[id number] : 1940 85 From: Brian Negrete MD PCP: MARILEE Partida Status:ADM IN Location: [place] [address] Reason for Visit Chief Complaint: Abdominal pain, [...] 23:59 23:59 23:59 Intake Total 2099 / 2100 1200 / 1200 Balance 2099 / 2099 1200 / 1200 Lab / Micro [...] 79.3 H, Lymph % (Auto) 6.6 L, [place] % (Auto) 12.8 H, Eos % (Auto) [...] (Auto) 67.1, Lymph % (Auto) 13.8 L, [place] % (Auto) 16.2 H, Eos % (Auto) [...] a partial distal small-bowel obstruction. Reading Location: [place] [address] Physical Exam Narrative GENERAL: cooperative HEENT: Atraumatic; [...] Subcu Lovenox. Charges/Coding Visit Charges Inpatient E&M: 08283 Subs Hosp L2 05/20/25 1028 Cosigner Signature (if applicable): CC: ~ Signed [facility]08-09-2025 Progress note [facility] Medical Records Department [address] [place] [address] Progress Note - Surgery 05/20/25837 MR#: [id number] Acct: [id number] Name: LUZ CLANCY Rep #:[id number] : 1940 85 From: Geovanna Nino MD PCP: BRYAN PartidaC Status:ADM IN Location: [place] [address] Subjective Subjective Patient is having flatus and [...] / 2099 1200 / 1200 Balance 2099 / 2099 1200 / 1200 Lab / Micro [...] (Auto) 67.1, Lymph % (Auto) 13.8 L, [place] % (Auto) 16.2 H, Eos % (Auto) [...] a partial distal small-bowel obstruction. Reading Location: [place] [address] Physical Exam Const oriented x3 and no apparent distress Resp normal respiratory effort Cardio regular rate GI soft to palpation GI Narrative: Mild distention, nontender, no peritoneal signs Assessment & Plan Assessment/Plan (1) Intractable nausea and vomiting: PLAN: Patient's KUB does look slightly improved to me and patient is having flatus we will start clears and still encourage ambulation. Geovanna Nino M.D. Pager: [phone] [facility] [address] [place] [address], [facility], [address] [place] [address] Office: [phone] Charges/Coding Visit Charges Inpatient E&M: 49051 Subs Hosp L2 05/20/25 0840 Cosigner Signature (if applicable): CC: ~ Signed [facility]08-09-2025 Radiology Diagnostic study note [facility] Imaging Services [address] [place] [address] Abdomen Single View (Portable) MR#: [id number] Acct: [id number] Name: LUZ CLANCY Rep #: [id number] : 1940 F 85 From: Katharine Kingsley MD PCP: MARILEE Partida Status: ADM IN Study:Abdomen Single View (Portable) Date of Exam: 05/20/25 Exam# [id number] Ordering Dr: Geovanna Nino MD PROCEDURE: ABDOMEN [...] a partial distal small-bowel obstruction. [facility] CC: COMMUTATOR PRESSER-C Lela Interiano; Dr. Geovanna Nino MD ~ Brand Recorder: Signed [facility]08-08-2025 Progress note Author Brian Negrete [facility] Note Date/Time May 19, 2025 9:2 3am [facility] Medical Records Department [address] [place] [address] Progress Note - Hospitalist 05/19/25 0748 MR#: [id number] Acct: [id number] Name: LUZ CLANCY Rep #:[id number] : 1940 85 From: Brian Negrete MD PCP: MARILEE Partida Status:ADM [place] Location: [place] [address] Reason for Visit Chief Complaint: Abdominal pain, [...] 91.6 H, Lymph % (Auto) 3.3 L, [place] % (Auto) 4.6, Eos % (Auto) 0.0, [...] Sl. Cloudy, Urine pH 7.0, Ur Specific [place] 1.010, Urine Protein 30 H, Urine Glucose [...] 79.3 H, Lymph % (Auto) 6.6 L, [place] % (Auto) 12.8 H, Eos % (Auto) [...] change since the prior study Reading Location: [facility] KUB X-Ray 05/19/25 04:50 IMPRESSION: Persistent small-bowel obstruction, transition point in the ileum. Refer to recent CT report. Reading Location: [place] [address] Physical Exam Narrative GENERAL: cooperative HEENT: Atraumatic; [...] Subcu Lovenox. Charges/Coding Visit Charges Inpatient E&M: 91838 Subs Hosp L2 05/19/25 0923 <Electronically signed by Brian Negrete MD> Cosigner Signature (if applicable): CC: ~ Signed [facility] Work Phone: [phone]) [phone] Consult note Author Isaiah Lerner [facility] Note Date/Time May 19, 2025 8:5 5am [facility] Medical Records Department [address] [place] [address] Consultation - Surgical 05/19/25 0852 MR#: [id number] Acct: [id number] Name: LUZ CLANCY Rep #:[id number] : 1940 85 From: Isaiah gibson MD PCP: MARILEE Partida Status:ADM [place] Location: [place] [address] Assessment & Plan Assessment/Plan (1) Intractable nausea [...] surgery on Thursday. Isaiah Lerner MD Pager: [facility] [address] [place] [address] [address] [facility], [address] [place] [address] Office: HPI Consult Data Date of Consult: [...] never had a bowel obstruction inthe past. [facility] Medical History CKD (chronic kidney disease), stage [...] 91.6 H, Lymph % (Auto) 3.3 L, [place] % (Auto) 4.6, Eos % (Auto) 0.0, [...] Sl. Cloudy, Urine pH 7.0, Ur Specific [place] 1.010, Urine Protein 30 H, Urine Glucose [...] 79.3 H, Lymph % (Auto) 6.6 L, [place] % (Auto) 12.8 H, Eos % (Auto) [...] change since the prior study Reading Location: [facility] KUB X-Ray 05/19/25 04:50 IMPRESSION: Persistent small-bowel obstruction, transition point in the ileum. Refer to recent CT report. Reading Location: [place] [address] 05/19/25 08 <Electronically signed by Isaiah Lerner MD> Cosigner Signature (if applicable): CC: MARILEE Interiano~ Signed [facility] Work Phone: 1(441) 785-329208-08-2025 Progress note [facility] Medical Records Department [address] [place] [address] Progress Note - Hospitalist 05/19/2548 MR#: [id number] Acct: [id number] Name: LUZ CLANCY Rep #:[id number] : 1940 85 From: Brian Negrete MD PCP: MARILEE Partida Status:ADM [place] Location: [place] [address] Reason for Visit Chief Complaint: Abdominal pain, [...] 91.6 H, Lymph % (Auto) 3.3 L, [place] % (Auto) 4.6, Eos % (Auto) 0.0, [...] Sl. Cloudy, Urine pH 7.0, Ur Specific [place] 1.010, Urine Protein 30 H, Urine Glucose [...] 79.3 H, Lymph % (Auto) 6.6 L, [place] % (Auto) 12.8 H, Eos % (Auto) [...] change since the prior study Reading Location: [facility] KUB X-Ray 05/19/25 04:50 IMPRESSION: Persistent small-bowel obstruction, transition point in the ileum. Refer to recent CT report. Reading Location: [place] [address] Physical Exam Narrative GENERAL: cooperative HEENT: Atraumatic; [...] Subcu Lovenox. Charges/Coding Visit Charges Inpatient E&M: 56380 Subs Hosp L2 05/19/25 0923 Cosigner Signature (if applicable): CC: ~ Signed [facility]08-08-2025 Consult note [facility] Medical Records Department [address] [place] [address] Consultation - Surgical 05/19/25 0852 MR#: [id number] Acct: [id number] Name: LUZ CLANCY Rep #:[id number] : 1940 85 From: Isaiah gibson MD PCP: MARILEE Partida Status:ADM [facility] Location: [place] [address] Assessment & Plan Assessment/Plan (1) Intractable nausea [...] surgery on Thursday. Isaiah Lerner MD Pager: [facility] [address] [place] [address], [address] [place] [address] Office: HPI Consult Data Date of Consult: [...] never had a bowel obstruction inthe past. [facility] Medical History CKD (chronic kidney disease), stage [...] 91.6 H, Lymph % (Auto) 3.3 L, [place] % (Auto) 4.6, Eos % (Auto) 0.0, [...] Sl. Cloudy, Urine pH 7.0, Ur Specific [place] 1.010, Urine Protein 30 H, Urine Glucose [...] 79.3 H, Lymph % (Auto) 6.6 L, [place] % (Auto) 12.8 H, Eos % (Auto) [...] change since the prior study Reading Location: [facility] KUB X-Ray 05/19/25 04:50 IMPRESSION: Persistent small-bowel obstruction, transition point in the ileum. Refer to recent CT report. Reading Location: [place] [address] 05/19/25 0855 Cosigner Signature (if applicable): CC: MARILEE Interiano~ Signed [facility]08-08-2025 Radiology Diagnostic study note [facility] Imaging Services [address] [place] [id number] Abdomen Single View (Portable) MR#: [id number] Acct: [id number] Name: LUZ CLANCY Rep #: [id number] : 1940 F 85 From: Katharine Kingsley MD PCP: MARILEE Partida Status: ADM [place] Study:Abdomen Single View (Portable) Date of Exam: 05/19/25 Exam# [id number] Ordering Dr: Lucia Cates MD PROCEDURE: ABDOMEN [...] Refer to recent CT report. Reading Location: [place] [address] CC: MARILEE Interiano; Dr. Najma Cates MD ~ Brand Recorder: Signed [facility]08-08-2025 History and physical note Author Najma Cates [facility] Note Date/Time May 18, 2025 11: 21pm [facility] Medical Records Department [address] [place] [address] H&P Exam - Hospitalist 05/18/252151 MR#: [id number] Acct: [id number] Name: LUZ CLANCY Rep #:[id number] : 1940 85 From: Najma Cates MD PCP: Lela Interiano, COMMUTATOR PRESSER-C Status:ADM [place] Location: [place] [address] HPI - General General Date of Admission: 05/18/25 Date of Service: 05/18/25 Chief Complaint: Abdominal pain, bloating, N/V. HPI Narrative The patient is an 85 y/o F w/ PMHx: CKD stage II per GFR trending, HTN, GERD, HxUterine CA/endometrial s/p PRADEEP as well as chemotherapy/radiation 2012, Hypothyroidism who presents to the [facility] ED on 05/18/25 with history of [...] 1. ED discussed case with Dr. Lerner. [facility] Medical History CKD (chronic kidney disease), stage [...] 91.6 H, Lymph % (Auto) 3.3 L, [place] % (Auto) 4.6, Eos % (Auto) 0.0, [...] Sl. Cloudy, Urine pH 7.0, Ur Specific [place] 1.010, Urine Protein 30 H, Urine Glucose [...] change since the prior study Reading Location: [facility] Assessment & Plan Assessment/Plan (1) Intractable nausea and vomiting: PLAN: Plan The patient is an 85 y/o F w/ PMHx: CKD stage II per GFR trending, HTN, GERD, HxUterine CA/endometrial s/p PRADEEP as well as chemotherapy/radiation 2012, Hypothyroidism who presents to the [facility] ED on 05/18/25 with history of [...] 16 minutes. Charges/Coding Visit Charges Inpatient E&M: 96897 Init Hosp L3 Procedures Hospitalists Procedures: 35086 Advncd Care Plan 30 Min 05/18/251 <Electronically signed by Najma Cates MD> Cosigner Signature (if applicable): CC: MARILEE Interiano; Dr. Najma Cates MD~ Signed [facility] Work Phone: 1(590) [phone] Discharge summary Author Jeffery Mosquedagett [facility] Note Date/Time May 18, 2025 10: 12pm [facility] Medical Records Department [address] [place] [address] Emergency Department Summary 05/18/25 MR#: [id number] Acct: [id number] Name: LUZ CLANCY Rep #:[id number] : 1940 85 From: Jeffery escobar DO PCP: MARILEE Partida Status:REG ER Location: ED ADDENDUM by Dr. Jeffery Mcclain DO on 05/18/25 at 2212 Patient has a history of hysterectomy therefore she did not have abdominal surgery which makes early small bowel obstruction a possibility 05/18/25 221<Electronically signed by Jeffery Mcclain DO> Cosigner Signature (if applicable): cc: MARILEE Interiano [...] intact Psych: Cooperative, appropriate mood and affect [facility] Medical History Tachycardia Diverticulosis Uncontrolled [...] 91.6 H Lymph % (Auto) 3.3 L [place] % (Auto) 4.6 Eos % (Auto) 0.0 [...] Sl. Cloudy Urine pH 7.0 Ur Specific [place] 1.010 Urine Protein 30 H Urine Glucose [...] change since the prior study Reading Location: [facility] Discharge Plan Triage Chief Complaint: Abd Pain [...] Provider: Lela Interiano NP Referrals: Lela Interiano COMMUTATOR PRESSER, COMMUTATOR PRESSER-C [Primary Care Provider] - Print Language: Bulgarian What to do if you have Problems For any increased pain, shortness of breath, bleeding, nausea or vomiting, chestpain, or any unexpected problems, contact your Primary Care Provider. Call [facility] ([phone]) or report to the closest Emergency Room. Call 911 if necessary. 05/18/252201 <Electronically signed by Jeffery Mcclain DO> Cosigner Signature (if applicable): CC: COMMUTATOR PRESSER-C Lela Interiano ~ Signed [facility] Work Phone: 1(275) 906-553808-07-2025 History and physical note [facility] Medical Records Department [facility] [address] H&P Exam - Hospitalist 05/18/252151 MR#: [id number] Acct: [id number] Name: LUZ CLANCY Rep #:[id number] : 1940 85 From: Najma Cates MD PCP: Lela Interiano, COMMUTATOR PRESSER-Lilian Status:ADM FRANKLIN Location: [place] [address] HPI - General General Date of Admission: 05/18/25 Date of Service: 05/18/25 Chief Complaint: Abdominal pain, bloating, N/V. HPI Narrative The patient is an 85 y/o F w/ PMHx: CKD stage II per GFR trending, HTN, GERD, HxUterine CA/endometrial s/p PRADEEP as well as chemotherapy/radiation 2012, Hypothyroidism who presents to the [facility] ED on 05/18/25 with history of [...] 1. ED discussed case with Dr. Lerner. [facility] Medical History CKD (chronic kidney disease), stage [...] 91.6 H, Lymph % (Auto) 3.3 L, [place] % (Auto) 4.6, Eos % (Auto) 0.0, [...] Sl. Cloudy, Urine pH 7.0, Ur Specific [place] 1.010, Urine Protein 30 H, Urine Glucose [...] change since the prior study Reading Location: [facility] Assessment & Plan Assessment/Plan (1) Intractable nausea and vomiting: PLAN: Plan The patient is an 85 y/o F w/ PMHx: CKD stage II per GFR trending, HTN, GERD, HxUterine CA/endometrial s/p PRADEEP as well as chemotherapy/radiation 2012, Hypothyroidism who presents to the [facility] ED on 05/18/25 with history of [...] DVT prophylaxis: Lovenox. #8. CODE status: Patient CLEOPATRA are her children she notes and living [...] 16 minutes. Charges/Coding Visit Charges Inpatient E&M: 07280 Init Hosp L3 Procedures Hospitalists Procedures: 20266 Advncd Care Plan 30 Min 05/18/25 2321 Cosigner Signature (if applicable): CC: MARILEE Interiano; Dr. Najma Cates MD~ Signed [facility]08-07-2025 Discharge summary [facility] Medical Records Department [address] [place] [address] Emergency Department Summary 05/18/25 MR#: [id number] Acct: [id number] Name: LUZ CLANCY Rep #:[id number] : 1940 85 From: Jeffery escobar DO PCP: MARILEE Partida Status:[facility] ER Location: ED ADDENDUM by Dr. Jeffery Mcclain DO on 05/18/25 at 2212 Patient has a history of hysterectomy therefore she did not have abdominal surgery which makes early small bowel obstruction a possibility 05/18/25 221 Cosigner Signature (if applicable): cc: MARILEE Interiano [...] intact Psych: Cooperative, appropriate mood and affect PFSH PFSH Medical History Tachycardia Diverticulosis Uncontrolled hypertension [...] 91.6 H Lymph % (Auto) 3.3 L [place] % (Auto) 4.6 Eos % (Auto) 0.0 [...] Sl. Cloudy Urine pH 7.0 Ur Specific [place] 1.010 Urine Protein 30 H Urine Glucose [...] change since the prior study Reading Location: [facility] Discharge Plan Triage Chief Complaint: Abd Pain [...] Lela Interiano NP Referrals: Lela Interiano NP, COMMUTATOR PRESSER-C [Primary Care Provider] - Print Language: Bulgarian What to do if you have Problems For any increased pain, shortness of breath, bleeding, nausea or vomiting, chestpain, or any unexpected problems, contact your Primary Care Provider. Call [facility] ([phone]) or report tothe closest Emergency Room. Call 911 if necessary. 05/18/252201 Cosigner Signature (if applicable): CC: COMMUTATOR PRESSER-C Lela Interiano ~ Signed [facility]08-07-2025 Radiology Diagnostic study note [facility] Imaging Services [address] [place], [place] [id number] Abdomen/Pelvis W IV Cont ONLY MR#: [id number] Acct: [id number] Name: LUZ CLANCY Rep #: [id number] : 1940 F 85 From: Maribeth Kent MD PCP: MARILEE Partida Status: REG ER Study:Abdomen/Pelvis W IV Cont ONLY Date of E xam: 05/18/25 Exam# [id number] Ordering Dr: Jeffery Zambrano DO PROCEDURE: ABDOMEN/PELVIS [...] change since the prior study Reading Location: [id number] CC: MARILEE Interiano; Dr. Jeffery Mcclain DO ~ Brand Recorder: Signed [facility]08-07-2025 Discharge summary Author Jeffery Mcclain [facility] Note Date/Time May 18, 2025 10: 12pm [facility] Medical Records Department [address] [place] [address] Emergency Department Summary 05/18/25 MR#: [id number] Acct: [id number] Name: LUZ CLANCY Rep #:[id number] : 1940 85 From: Jeffery escobar DO PCP: MARILEE Partida Status:REG ER Location: ED ADDENDUM by Dr. Jeffery Mcclain DO on 05/18/25 at 2212 Patient has a history of hysterectomy therefore she did not have abdominal surgery which makes early small bowel obstruction a possibility 05/18/25 2212<Electronically signed by Jeffery Mcclain DO> Cosigner Signature (if applicable): cc: MARILEE Interiano [...] intact Psych: Cooperative, appropriate mood and affect PFSH PFSH Medical History Tachycardia Diverticulosis Uncontrolled hypertension [...] 91.6 H Lymph % (Auto) 3.3 L [place] % (Auto) 4.6 Eos % (Auto) 0.0 [...] Sl. Cloudy Urine pH 7.0 Ur Specific [place] 1.010 Urine Protein 30 H Urine Glucose [...] change since the prior study Reading Location: [facility] Discharge Plan Triage Chief Complaint: Abd Pain [...] Provider: Lela Interiano NP Referrals: Lela Interiano COMMUTATOR PRESSER, COMMUTATOR PRESSER-C [Primary Care Provider] - Print Language: Bulgarian What to do if you have Problems For any increased pain, shortness of breath, bleeding, nausea or vomiting, chestpain, or any unexpected problems, contact your Primary Care Provider. Call [facility] ([phone]) or report to the closest Emergency Room. Call 911 if necessary. 05/18/252201 <Electronically signed by Jeffery Mcclain DO> Cosigner Signature (if applicable): CC: MARILEE Interiano ~ Signed [facility] Work Phone: 1(697) 523-759107-30-2025 Radiology Diagnostic study note [facility] Imaging Services [address] [place] [address] Chest Insp/Exp 2 View MR#: [id number] Acct: [id number] Name: LUZ CLANCY Rep #: [id number] : 1940 F 85 From: Josep Gonzales MD PCP: MARILEE Partida Status: REG CLI Study:Chest Insp/Exp 2 View Date of Exam: 05/10/25 Exam# [id number] Ordering Dr: Brina Gonzales MD EXAM: Two-view AP portable upright [...] stable, without evidence of cardiomegaly. Reading Location: [facility] CC: MARILEE Interiano; Dr. Brian Gonzales MD ~ Brand Recorder: Signed [facility]07-30-2025 Radiology Diagnostic study note [facility] Imaging Services [address] [place] [address] Biopsy/Inj or Needle Placement MR#: [id number] Acct: [id number] Name: LUZ CLANCY Rep #: [id number] : 1940 F 85 From: Josep Gonzales MD PCP: MARILEE Partida Status: REG CLI Study:Biopsy/Inj or Needle Placement Date of Exam: 05/10/25 Exam# [id number] Ordering Dr: Scot Bernal MD EXAM: CT-guided [...] pulmonary mass. Pathology results pending. Reading Location: [facility] CC: MARILEE Interiano; Dr. Carlos Bernal MD ~ Brand Recorder: Signed [facility]07-30-2025 Radiology Diagnostic study note [facility] Imaging Services [address] [place] [address] Chest Insp/Exp 2 View MR#: [id number] Acct: [id number] Name: LUZ CLANCY Rep #: [id number] : 1940 F 85 From: Josep Gonzales MD PCP: MARILEE Partida Status: REG CLI Study:Chest Insp/Exp 2 View Date of Exam: 05/10/25 Exam# [id number] Ordering Dr: Brian Gonzales MD EXAM: AP [...] unremarkable; no evidence of cardiomegaly. Reading Location: [place] [address] CC: COMMUTATOR PRESSER-Lilian Interiano; Dr. Brian Gonzales MD ~ Brand Recorder: Signed [facility]07-08-2025 Radiology Diagnostic study note [facility] Imaging Services [address] [place] [id number] Chest, Abd, Pel w/Contrast MR#: [id number] Acct: [id number] Name: LUZ CLANCY Rep #: [id number] : 1940 F 85 From: Gregg Barba MD PCP: MARILEE Partida Status: REG CLI Study:CT Chest, Abd, Pel w/Contrast Date of E xam: 04/17/25 Exam# [id number] Ordering Dr: Scot Beranl MD PROCEDURE: CT CHEST, ABD, PEL W/CONTRAST [...] 3. Other findings as noted. Reading Location: [id number] CC: MARILEE Interiano; Dr. Carlos Bernal MD ~ Brand Recorder: Signed [facility] Work Phone: 1(779) 410-749007-02-2025 Evaluation note* Diagnosis Onset Date Resolution Status [...] Uncontrolled hypertension acute May 16, 2025 11:32am [facility] Work Phone: 1(974) 310-864507-02-2025 Evaluation note* Diagnosis Onset Date Resolution Status [...] vomiting acut e May 18, 2025 9:54pm [facility] Work Phone: 1(301) 311-469107-02-2025 Evaluation note* Diagnosis Onset Date Resolution Status [...] vomiting acut e May 19, 2025 11:54am [facility] Work Phone: 1([phone]) [phone] Evaluation note* Diagnosis Onset Date Resolution Status [...] and vomiting resolved May 19, 2025 11:54am [facility] Work Phone: 1([phone]) 123-123207-02-2025 Evaluation note* Diagnosis Onset Date Resolution Status [...] 2025 2:44pm Uterine cancer chronic May 2:44pm [facility] Work Phone: 1([phone]) [phone] Evaluation note* Diagnosis Onset Date Resolution Status [...] 2025 2:44pm Uterine cancer chronic May 2:44pm Metastasis to lung acute June 08, 2025 10:23am Uterine cancer chronic May 10:23am [employer] Work Phone: [phone]) [phone] Evaluation note* Diagnosis Onset Date Resolution Status [...] 2025 2:44pm Uterine cancer chronic May 2:44pm Encounter for education acute A ugust 2024 10:23am Metastasis to lung acute June 08, 2025 10:23am Uterine cancer chronic May 10:23am Encounter for insertion of venous access port acute June 9:27am [employer] Work Phone: [phone] Evaluation note* Diagnosis Onset Date Resolution Status Admit Date History of endometrial cancer chroni c April 12, 2025 2:42pm Lung nodule, multiple chronic Apr 2:42pm Uterine cancer chronic April 12, 2025 2:42pm Lung mass acute April 24 3:43pm History of endometrial cancer chroni c April 24, 2025 3:43pm Uterine cancer chronic April 24, 2025 3:43pm Tachycardia acute May 16, 025 11:32am Uncontrolled hypertension acute May 16, 2025 11:32am Intractable nausea and vomiting resolved May 19, 2025 11:54am Metastasis to lung acute June 05, 2025 2:44pm Uterine cancer chronic May 2:44pm Encounter for education acute A ugust 2024 10:23am Metastasis to lung acute June 08, 2025 10:23am Uterine cancer chronic May 10:23am Encounter for insertion of venous access port acute June 9:27am Pulmonary nodule acute Septembe r 2024 7:45am Chemotherapy management, encounter for acute June 26, 2025 7:46am Immunotherapy encounter acute S eptember 2024 7:46am Metastasis to lung acute Septem 2024 7:46am Uterine cancer chronic June 26, 2025 7:46am [facility] Work Phone: 1([phone]) 996-112907-02-2025 Progress [facility] [address] [place] [address] OFFICE VISIT Date of Service: 04/12/25 1455 MR#: [id number] Acct: [id number] Name: LUZ CLANCY Rep #: [id number] : 1940 From: Carlos Bernal MD Age/Sex: 85/F Location: [facility] Status: Signed HPI Subjective Date of [...] observation, comes in for f/u. [facility] Medical History Tachycardia Diverticulosis Uncontrolled [...] 1523 D> Date _ [facility] Signature: Date (if applicable) CC: MARILEE Interiano ~ [facility]07-02-2025 Progress note Author Carlos Bernal [facility] Note Date/Time April 12, 2025 3:23p m [facility] [address] [address] OFFICE VISIT Date of Service: 04/12/25 1455 MR#: [id number] Acct: [id number] Name: CLANCYKADEEMLUZ Taiwo Rep #: [id number] : 1940 From: Carlos Bernal MD Age/Sex: 85/F Location: [facility] [place] [place] Status: Signed HPI Subjective Date of Service [...] observation, comes in for f/u. [facility] Medical History Tachycardia Diverticulosis Uncontrolled [...] MD Cosigner Signature: Date (if applicable) CC: COMMUTATOR PRESSER-Lilian Interiano ~ [facility] Work Phone: 1([phone]) 396-286504-02-2025 Evaluation note* Diagnosis Onset Date Resolution Status Admit Date Tachycardia acute January 11 1:25pm History of endometrial cancer acute April 12, 2025 2:42pm Lung nodule, multiple chronic Apr 2:42pm Uterine cancer chronic April 12, 2025 2:42pm [facility] Work Phone: [phone]) [phone] Evaluation note* Diagnosis Onset Date Resolution Status Admit Date Tachycardia acute January 11 1:25pm History of endometrial cancer acute April 12, 2025 2:42pm Lung nodule, multiple chronic Apr 2:42pm Uterine cancer chronic April 12, 2025 2:42pm Pulmonary nodule acute April 3:45pm [facility] Work Phone: [phone] Evaluation note* Diagnosis Onset Date Resolution Status [...] Uterine cancer chronic April 24, 2025 3:43pm [facility] Work Phone: [phone] Evaluation note* Diagnosis Onset Date Resolution Status Admit Date Strain of muscle at thorax level resolved October 21 6:19am [facility] Work Phone: [phone] NoteHNO ID: [id number] Author: Seble Vann APRN.[employer] Service: ? Author Type: Nurse Practitioner Type: Progress Notes Filed: 10/08/2021 8:25 AM Note Text: This note was created using worldhistoryprojectriter. Subjective Luz Clancy is a 81 year old female. 81 year old female with PMH GERD presents with complaints of COVID concern. Acute onset of symptoms yesterday. +chills Denies SOB. Denies URI sx. Denies fever or chills. Denies N/V/D. Denies skin rash or lesions. Has had x 2 COVID She had + exposure to COVID on [place]. She is accompanied by her daughter and son in law who are here for same. The history is provided by the patient. No manager language was used. Illness The current episode started [...] Laterality Date - COLONOSCOP W/ OR W/O BRS SPEC 06/17/2006 Colonoscopy - COLONOSCOP W/ OR W/O [facility] SPEC 07/15/11 - COLONOSCOP W/ OR W/O [facility] SPEC 07/17/16 Colonoscopy (needs MAC [...] wall: No tenderness. Abd (more content not included)...[facility] note Author Tamra Sauceda [facility] Note Date/Time June 22, 2025 10:34am [facility] Medical Records Department [address] [place] [address] Anesthesia Postop Eval I 06/22/25 1034 MR#: [id number] Acct: [id number] Name: LUZ CLANCY Rep #:[id number] : 1940 85 From: Tamra Quintana RNA PCP: MARILEE Partida Status:REG SDC Y Race: C Location: [place] [address] Anesthesia: Postop Eval I Current Vital Signs Temperature: 97 F Pulse Rate: 94 Blood Pressure: 123/79 Respiratory Rate: 16 Pulse Ox: 100 Oxygen Delivery Method: Room Air Assessment Airway patent: Yes Spontaneous unlabored respirations: Yes Mental status: Awake and Calm nausea: No Vomiting: No Anesthesia Complication: No Fluid Hydration Crystalloid volume administer (ml): 300 Total IV fluid infused: 300 Progress Note Anesthesia document: Postop Eval 1 completed: Yes 06/22/25 1034 <Electronically signed by Tamra Sauceda [employer]> Date _ Tamra Lomeliigner Signature: Date CC: ~ Signed [facility] Work Phone: Discharge summary Author Isaiah Lerner [facility] Note Date/Time June 22, 2025 10:33am [facility] Medical Records Department [address] [place] [address] Instructions for Home/Discharge Instructions 06/22/25 1033 MR#: [id number] Acct: [id number] Name: LUZ CLANCY Rep #:[id number] : 1940 85 From: Isaiah gibson MD PCP: Lela Interiano NP-C Status:REG [facility] Discharge Instructions Procedure Port-A-Cath Diet Discharge Diet: Light diet - advance as tolerated (Pain medication may cause nausea. You should typically eat light foods as you take your pain medication.) Activity Discharge Activity: Return to Normal Activity and May Shower (with your bandage in place in 1-2 days after surgery. DO NOT SHOWER WHEN YOUR PORT IS ACCESSED.) Additional Activity Instructions:: Alternate ibuprofen and Tylenol for pain control Dressing / Incision Call your doctor if your incision/area has: Continuous Slow Oozing, Sudden Increased Bleeding, Increased Pain/ Swelling, Increased Redness and Foul Smelling Discharge Call your doctor if you observe: Fever of 101 or Higher Remove Dressing in: 2 days Cleanse incision/area with: Soap & Water Follow Up Care Please Follow Up With: Isaiah Lerner MD When: as needed [phone] Test Results: Test results from this visit will be discussed in further detail at your follow- up appointment, if applicable. Discharge Plan Admission Attending Provider: Isaiah Lerner Primary Care Provider: Lela Interiano NP Instructions Print Language: Bulgarian Discharge Orders/Prescriptions Prescriptions: No Action Adult 50 Plus Probiotic 4 billion cell capsule 4,000 mmu cells PO DAILY Rx Instructions: administer with a meal metoprolol succinate [Toprol XL] 50 mg tablet extended release 24 hr 50 mg PO QDAY Qty: 90 3RF Multivitamins,Therapeutic tablet 1 tab PO DAILY Calcium Carbonate/Vitamin D tablet 1 tab PO DAILY levothyroxine 50 mcg tablet 50 mcg PO DAILY prochlorperazine maleate 10 mg tablet 10 mg PO Q6H PRN (Reason: nausea and vomiting) Qty: 30 2RF ondansetron 8 mg tablet,disintegrating 8 mg PO Q8H PRN (Reason: nausea and vomiting) Qty: 30 2RF lidocaine-prilocaine 2.5-2.5 % cream 1 applic topical ONCE PRN (Reason: port access) 30 Days Qty: 30 2RF Referrals / Follow Up: Lela Interiano NP, SOURAV-C [Primary Care Provider] - Disposition Disposition (needs filled in before D/C Order can be placed): Home, Self Care 06/22/25 1033<Electronically signed by Isaiah Lerner MD>Isaiah Lerner MD CC: COMMUTATOR PRESSER-C Lela Interiano ~ Signed [facility] Work Phone: Evaluation noteNo assessment information available [facility] Work Phone: Evaluation note* Diagnosis Onset Date Resolution Status History of endometrial cancer acute Lung nodule, multiple chroni c Uterine cancer chronic [facility] Work Phone: Evaluation note* Diagnosis Onset Date Resolution Status Acute sinusitis acute Cough acute PND (post-nasal drip) acute Increased urinary frequency acute [facility] Work Phone: History and physical note Author Isaiah Lerner [facility] Note Date/Time June 22, 2025 9:34am [facility] Medical Records Department [address] [place] [address] History & Physical Exam 06/22/25 0933 MR#: [id number] Acct: [id number] Name: LUZ CLANCY Rep #:[id number] : 1940 85 From: Isaiah gibson MD PCP: MARILEE Partida Status:[facility] Location: [place] [address] History and Physical Date of Admission: 06/22/25 Intake Vital Signs 06/08/2510:24 06/15/2509:38 Height 5 ft 5 in 5 ft 5 in Weight: 124 lb 4 oz 123 lb BMI 20.7 20.5 BP 160/83 H 144/78 H Blood Pressure Location Rt brachial Rt brachial Position Sitting Sitting Respiration 18 17 Pulse 80 83 Pulse Source Monitor Monitor Temp 98.2 F Pulse Oximetry (%) 100 99 Oxygen Delivery Method room air room air Intake Visit Reasons: PORT PLACEMENT Chief Complaint: port placement Is patient in pain?: No Allergies doxycycline Adverse Reaction (Severe, Verified 06/15/25 09:41) Nauseaerythromycin base (Erythromycin Base) Adverse Reaction (Severe, Verified 06/15/25 09:41) Nauseaclindamycin Adverse Reaction (Intermediate, Verified 06/15/25 09:41) ThrushPenicillins Adverse Reaction (Intermediate, Verified 06/15/25 09:41) Hives Medications ?Medication ?Instructions ?Recorded ?Confirmed ?Type Calcium Carbonate/Vitamin D 1 tab PO DAILY 08/01/13 06/15/25 History Multivitamins,Therapeutic 1 tab PO DAILY 08/01/13 06/15/25 History lactobacillus combination no.9 4 4,000 mmu cells PO DAILY 03/23/23 History billion cell capsule (Adult 50 Plus Probiotic) metoprolol succinate 50 mg 50 mg PO QDAY #90 tabs 01/11/25 06/15/25 Rx tablet,extended release 24 hr (Toprol XL) levothyroxine 75 mcg tablet 50 mcg PO QDAY 04/12/25 06/15/25 History lidocaine-prilocaine 2.5 %-2.5 % 1 applic topical ONCE PRN port 06/13/25 06/15/25 Rx topical cream access 30 days #30 grams ondansetron 8 mg disintegrating 8 mg PO Q8H PRN nausea and 06/13/2502/03 Rx tablet vomiting #30 tabs prochlorperazine maleate 10 mg 10 mg PO Q6H PRN nausea and 06/13/2502/03 Rx tablet vomiting #30 tabs Have you fallen in the past year?: No PFSH Medical History (Updated 06/15/25 @ 09:38 by Niya Taveras) Encounter for education CKD (chronic kidney disease), stage II HTN (hypertension) Diverticulosis Cancer Gastric reflux Pulmonary nodule Surgical History History of tubal ligation History of hysterectomy Family History Mother Colon cancer Breast cancerDaughter Thyroid disorderFather No problems noted. Social History household members: none Smoking Status: Never smoker alcohol intake: never substance use type: does not use HPI HPI HPI: Patient is an 85-year-old female here for port placement for chemotherapy. ROS General General: No weight change, appetite, fatigue, colon cancer, breast cancer or weakness HEENT HEENT: No difficulty swallowing, eye injury, eye surgery, swollen glands or hoarseness Endo Endocrine: Yes thyroid disease; No diabetes mellitus, thyroid cancer, Hair loss, heat intolerance or cold intolerance Skin Skin: No rash or changing moles Musc Musculoskeletal: No back problems, arthritis, rheumatoid arthritis, gout or joint pain Cardio Cardiovascular: Yes high blood pressure; No murmur, pacemaker, heart disease, atrial fibrillation, heart attack, heart stent, palpitations, shortness of breath with exertion or chest pain Psych Psychiatric: No depression, anxiety or hearing voices Resp Respiratory: Yes shortness of breath, No sleep apnea, Yes cough, No COPD, No asthma, No emphysema and No wheezing Gastro Gastrointestinal: No abdominal pain, No nausea or vomiting, No diarrhea, No constipation, No blood in stool, No acid reflux, No hemorrhoids, No ulcers, No gallbladder problem and No black,tarry stools Yoseph Hematologic: No blood thinners, No blood disorders, No bleeding, No anemia and No blood clots Neuro Neurologic: No system reviewed and no additional complaints, except as documented, No as per HPI, No abnormal gait, No abnormal hearing, No abnormal movements, No abnormal speech, No behavioral changes, No burning sensations, No confusion, No convulsions, No disequilibrium, No dizziness, No localized weakness, No frequent falls, No headache(s), No lack of coordination, No loss ofvision, No memory loss, No numbness, No other visual disturbances, No radicular pain, No restless legs, No sensory deficit, No syncope, No tingling, No tremor(s), No weakness and No other Exam Const General: cooperative Orientation: alert and oriented x3 HENMT Head: normal to inspection Neck Neck: normal visual inspection and full ROM Chest Chest palpation & inspection: normal inspection of the chest Resp Effort & Inspection: normal respiratory effort Auscultation: clear to auscultation bilaterally Cardio Rate: regular rate Rhythm: regular rhythm GI Inspection: non-distended Palpation: soft and nontender Skin General: no rashes or lesions noted Neuro General: patient alert and patient oriented x3 Extrem General: full ROM Psych Appearance: grossly normal Mental Status: mental status grossly normal Assessment and Plan Assessment and Plan (1) Encounter for insertion of venous access port: Status: Acute Plan: I discussed placement of right chest port with the patient in detail. I discussed the risks of the procedure such as bleeding, infection, pneumothorax, line infection or DVT. Patient understands all the risks and is willing to proceed. Isaiah Lerner MD Pager: [facility] [address] [place] [id number], [address] [place] [address] Office: I have examined the patient and the H&P has been reviewed. There are no clinicalchanges since date of exam. 06/22/25 0934 <Electronically signed by Isaiah Lerner MD> Cosigner Signature (if applicable): CC: MARILEE Interiano; Dr. Isaiah Lerner MD~ Signed [facility] Work Phone: Reason for referral (narrative)No reason for referral information availableWUniversity [facility]als [facility] Work Phone: Summary Purpose Family History No Family History Records Found Relationship Condition Age at Onset Recorded Date/T rocky mother Malignant neoplasm of colon Unknown Malignant neoplasm of breast Unknown daughter Disorder of thyroid Unknown Advance Directives No Advanced Directives Records Found Advance Directive Response Recorded Date/ Time Advance Directives No August 3:25pm Living Will Yes February 16, 2022 12 :59pm Power of Sales Representative Aircraft Yes February 16, 2022 12:59pm Advance Directive Response Recorded Date/ Time Name of Medical Power of Sales Representative Aircraft Eva Mccallum February 16, 2022 12:59pm Advance Directives No August 3:25pm Living Will Yes February 16, 2022 12 :59pm Power of Sales Representative Aircraft Yes February 16, 2022 12:59pm Advance Directive Response Recorded Date/ Time Advance Directives No November 7:49am Living Will Yes November 7:49am Power of Sales Representative Aircraft Yes December 10, 2023 7:49am Advance Directive Response Recorded Date/ Time Advance Directives No November 7:49am Advance Directive Response Recorded Date/ Time Living Will No August 23 3:25pm Do you have a Healthcare Power of Sales Representative Aircraft? No August 23, 2013 3:25pm Advance Directives No November 7:49am Advance Directive Response Recorded Date/ Time Living Will No August 23 3:25pm Do you have a Healthcare Power of Sales Representative Aircraft? No August 23, 2013 3:25pm Do you have a Healthcare Power of Sales Representative Aircraft? Yes May 18, 2025 5:45pm Advance Directives No November 7:49am Advance Directive Response Recorded Date/ Time Living Will No August 23 3:25pm Do you have a Healthcare Pow er of Sales Representative Aircraft? No August 23, 2013 3:25pm Do you have a Healthcare Pow er of Sales Representative Aircraft? Yes May 18, 2025 10:52pm Name of Medical Power of Sales Representative Aircraft adrian gibson May 18, 2025 10:52pm Advance Directives No November 7:49am Advance Directive Response Recorded Date/ Time Living Will No August 23 3:25pm Do you have a Healthcare Pow er of Sales Representative Aircraft? No August 23, 2013 3:25pm Do you have a Healthcare Pow er of Sales Representative Aircraft? Yes June 16, 2025 9:01am Do you have a Healthcare Pow er of Sales Representative Aircraft? Yes May 18, 2025 10:52pm Name of Medical Power of Sales Representative Aircraft adrian gibson May 18, 2025 10:52pm Advance [...] 8:00 am Other nonspecific abnormal finding of vigrin[place] ng field May 10, 2025 7:36am 4 [...] Uterine cancer June 08, 2025 10 :23am Chief Complaint Admit Date 1YR LABS PRIOR [...] CHEMO ED June 08, 2025 10 :23am SCREENING June 09, 2025 7: 06am PORT PLACEMENT June 15, 2025 9:27am Reason for Visit Admit Date History of [...] Uterine cancer June 05, 2025 2: 44pm Encounter for education June 08 10:23am Metastasis to lung June 08, 2025 10 :23am Uterine cancer June 08, 2025 10 :23am Encounter for insertion of venous access port June 15, 2025 9:27am Chief Complaint Admit Date 1YR LABS PRIOR [...] CHEMO ED June 08, 2025 10 :23am SCREENING June 09, 2025 7: 06am PORT PLACEMENT June 15, 2025 9:27am Insertion, Vascular Port right poss Sept ember 2024 8:18am Insertion, Vascular Port right poss Sept ember 2024 9:33am Chief Complaint Admit Date 1YR LABS PRIOR April 12, 2025 2:42p m Other abnormal tumor markers April 17, 025 12:36pm 2WKS NO LABS REVIEW CT April 24, 2025 3 :43pm Other nonspecific abnormal finding of [place] ng [...] CHEMO ED June 08, 2025 10 :23am SCREENING June 09, 2025 7: 06am PORT PLACEMENT June 15, 2025 9:27am Insertion, Vascular Port right poss Sept ember 2024 8:18am Insertion, Vascular Port right poss Sept ember 2024 9:33am ONC/HEM June 26, 2025 7:45am 2WKS LABS NEW START June 26, 2025 7:46am Reason for Visit Admit Date History of endometrial cancer April 12, 2025 2:42pm Lung nodule, multiple April 12, 2025 2:4 2pm Uterine cancer April 12, 2025 2:42p m Lung mass April 24, 2025 3:43 pm History of endometrial cancer April 24, 2025 3:43pm Uterine cancer April 24, 2025 3:43 pm Tachycardia May 16, 2025 11: 32am Uncontrolled hypertension May 16 11:32am Intractable nausea and vomiting May 192024 11:54am Metastasis to lung June 05, 2025 2: 44pm Uterine cancer June 05, 2025 2: 44pm Encounter for education June 08 10:23am Metastasis to lung [place] 28th, 2025 10 :23am Uterine cancer June 08, 2025 10 :23am Encounter for insertion of venous access port June 15, 2025 9:27am Pulmonary nodule June 26, 2025 7:45am Chemotherapy management, encounter for S eprobymber 2024 7:46am Immunotherapy encounter June 26, 2025 7:46am Metastasis to lung June 26, 2025 7:46am Uterine cancer June 26, 2025 7:46am Additional Source Comments INFORMATION SOURCE (unrecogn ized section and content) DATE CREATED AUTHOR 12/31/2021 [facility] DATE CREATED AUTHOR AUTHOR'S ORGANIZ ATION 05/24/2025 [facility] DATE CREATED AUTHOR AUTHOR'S ORGANIZ ATION 07/03/2025 [facility] Goals (unrecognized section and content) Goals [...] Primary Care Provider, Referrin g Provider Active Francesca Peacock NP-C Attending Provider Active Team Status: Inactive Member [...] 2024 End: December 20, 2024 Dr. Paola Croona MD Referring Provider Active Start: December 20, 2024 End: December 20, 2024 Team Status: Active Member Role/Relationship Status Dates Lela Interiano NP, COMMUTATOR PRESSER-C Primary Care Provider Active Team Status: Inactive [...] 2025 End: January 11, 2025 Dr. Riley Mckoen MD Attending Provider Active S tart: January [...] Inactive Member Role/Relationship Status Dates Lela Interiano COMMUTATOR PRESSER, COMMUTATOR PRESSER-C Primary Care Provider Active Start: February 27, 2025 End: February 27, 2025 Lela Interiano COMMUTATOR PRESSER, COMMUTATOR PRESSER-C Attending Provider Active S tart: February 27, 2025 End: February 27, 2025 Lela Interiano COMMUTATOR PRESSER, COMMUTATOR PRESSER-C Referring Provider Active S tart: February 27, 2025 End: February 27, 2025 Team Status: Inactive Member Role/Relationship Status Dates Dr. Carlos Bernal MD Attending Provider Active S tart: April 12, 2025 End: April 12, 2025 Lela Interiano COMMUTATOR PRESSER, COMMUTATOR PRESSER-C Primary Care Provider Active Start: April 12, 2025 End: April 12, 2025 Lela Interiano COMMUTATOR PRESSER, COMMUTATOR PRESSER-C Referring Provider Active S tart: April 12, [...] Inactive Member Role/Relationship Status Dates Lela Interiano COMMUTATOR PRESSER, COMMUTATOR PRESSER-C Primary Care Provider Active Start: February 27, 2025 End: February 27, 2025 Lela Interiano COMMUTATOR PRESSER, COMMUTATOR PRESSER-C Attending Provider Active S tart: February 27, 2025 End: February 27, 2025 Lela Interiano COMMUTATOR PRESSER, COMMUTATOR PRESSER-C Referring Provider Active S tart: February 27, 2025 End: February 27, 2025 Team Status: Inactive Member Role/Relationship Status Dates Dr. Carlos Bernal MD Attending Provider Active S tart: April 12, 2025 End: April 12, 2025 Lela Interiano COMMUTATOR PRESSER, COMMUTATOR PRESSER-C Primary Care Provider Active Start: April 12, 2025 End: April 12, 2025 Lela Interiano COMMUTATOR PRESSER, COMMUTATOR PRESSER-C Referring Provider Active S tart: April 12, [...] Inactive Member Role/Relationship Status Dates Lela Interiano COMMUTATOR PRESSER, COMMUTATOR PRESSER-C Primary Care Provider Active Start: April 17, 2025 End: April 17, 2025 Dr. Carlos Bernal MD Attending Provider Active S tart: April 17, 2025 End: April 17, 2025 Dr. Carlos Bernal MD Referring Provider Active S tart: April 17, 2025 End: April 17, 2025 Team Status: Inactive Member Role/Relationship Status Dates Lela Interiano COMMUTATOR PRESSER, COMMUTATOR PRESSER-C Primary Care Provider Active Start: April 24, 2025 End: April 24, 2025 Lela Interiano COMMUTATOR PRESSER, COMMUTATOR PRESSER-C Referring Provider Active S tart: April 24, 2025 End: April 24, 2025 Dr. Carlos Bernal MD Attending Provider Active S tart: April 24, 2025 End: April 24, 2025 Team Status: Inactive Member Role/Relationship Status Dates Dr. Paola Corona MD Primary Care Provider Active Start: February 03, 2025 End: February 03, 2025 Dr. Riley Mckoen MD Attending Provider Active S tart: February [...] Inactive Member Role/Relationship Status Dates Lela Interiano COMMUTATOR PRESSER, COMMUTATOR PRESSER-C Primary Care Provider Active Start: February 27, 2025 End: February 27, 2025 Lela Interiano COMMUTATOR PRESSER, COMMUTATOR PRESSER-C Attending Provider Active S tart: February 27, 2025 End: February 27, 2025 Lela Interiano COMMUTATOR PRESSER, COMMUTATOR PRESSER-C Referring Provider Active S tart: February 27, 2025 End: February 27, 2025 Team Status: Inactive Member Role/Relationship Status Dates Dr. Carlos Bernal MD Attending Provider Active S tart: April 12, 2025 End: April 12, 2025 Lela Interiano COMMUTATOR PRESSER, COMMUTATOR PRESSER-C Primary Care Provider Active Start: April 12, 2025 End: April 12, 2025 Lela Interiano COMMUTATOR PRESSER, COMMUTATOR PRESSER-C Referring Provider Active S tart: April 12, 2025 End: April 12, 2025 Team Status: Inactive Member Role/Relationship Status Dates Lela Interiano COMMUTATOR PRESSER, COMMUTATOR PRESSER-C Primary Care Provider Active Start: April 17, 2025 End: April 17, 2025 Dr. Carlos Bernal MD Attending Provider Active S tart: April 17, 2025 End: April 17, 2025 Dr. Carlos Bernal MD Referring Provider Active S tart: April 17, 2025 End: April 17, 2025 Team Status: Inactive Member Role/Relationship Status Dates Lela Interiano COMMUTATOR PRESSER, COMMUTATOR PRESSER-C Primary Care Provider Active Start: April 24, 2025 End: April 24, 2025 Lela Interiano COMMUTATOR PRESSER, COMMUTATOR PRESSER-C Referring Provider Active S tart: April 24, [...] Active Member Role/Relationship Status Dates Lela Interiano COMMUTATOR PRESSER, COMMUTATOR PRESSER-C Primary Care Provider Active Start: May 10, [...] 2025 End: May 16, 2025 Laney Ferreira COMMUTATOR PRESSER, COMMUTATOR PRESSER-C Attending Provider Active Start: May 16, 2025 End: May 16, 2025 Lela Interiano COMMUTATOR PRESSER, COMMUTATOR PRESSER-C Primary Care Provider Active Start: May 16, 2025 End: May 16, 2025 Team Status: Active Member Role/Relationship Status Dates Lela Interiano COMMUTATOR PRESSER, COMMUTATOR PRESSER-C Primary Care Provider Active Start: May 18, 2025 Dr. Jeffery Mcclain , DO Emergency Provider Activ e Start: May 18, 2025 Dr. Najma Cates MD Admit Provider Active St art: May 18, 2025 Dr. Najma Cates MD Attending Provider Active Start: May 18, 2025 Team Status: Inactive Member Role/Relationship Status Dates Lela Interiano COMMUTATOR PRESSER, COMMUTATOR PRESSER-C Primary Care Provider Active Start: May 10, [...] Active Member Role/Relationship Status Dates Lela Interiano COMMUTATOR PRESSER, COMMUTATOR PRESSER-C Primary Care Provider Active Start: May 18, [...] Active Member Role/Relationship Status Dates Lela Interiano COMMUTATOR PRESSER, COMMUTATOR PRESSER-C Primary Care Provider Active Start: May 19, [...] Active Member Role/Relationship Status Dates Lela Interiano COMMUTATOR PRESSER, COMMUTATOR PRESSER-C Primary Care Provider Active Start: May 19, [...] Active Member Role/Relationship Status Dates Lela Interiano COMMUTATOR PRESSER, COMMUTATOR PRESSER-C Primary Care Provider Active Start: May 18, [...] Inactive Member Role/Relationship Status Dates Lela Interiano COMMUTATOR PRESSER, COMMUTATOR PRESSER-C Primary Care Provider Active Start: May 19, 2025 End: May 22, 2025 Dr. Jeffery Klusty-Will , DO Emergency Provider Activ e Start: [...] Active Member Role/Relationship Status Dates Lela Interiano COMMUTATOR PRESSER, COMMUTATOR PRESSER-C Primary Care Provider Active Start: May 20, [...] Active Member Role/Relationship Status Dates Lela Interiano COMMUTATOR PRESSER, COMMUTATOR PRESSER-C Primary Care Provider Active Start: May 20, [...] Active Member Role/Relationship Status Dates Lela Interiano COMMUTATOR PRESSER, COMMUTATOR PRESSER-C Primary Care Provider Active Start: May 21, 2025 Dr. Jeffery Klusty-Will , DO Emergency Provider Activ e Start: [...] Active Member Role/Relationship Status Dates Lela Interiano COMMUTATOR PRESSER, COMMUTATOR PRESSER-C Primary Care Provider Active Start: May 21, [...] Member Role/Relationship Status Dates Lela Interiano NP, COMMUTATOR PRESSER-C Primary Care Provider Active Start: May 22, [...] Inactive Member Role/Relationship Status Dates Lela Interiano COMMUTATOR PRESSER, COMMUTATOR PRESSER-C Primary Care Provider Active Start: February 27, 2025 End: February 27, 2025 Lela Interiano COMMUTATOR PRESSER, COMMUTATOR PRESSER-C Attending Provider Active S tart: February 27, 2025 End: February 27, 2025 Lela Interiano COMMUTATOR PRESSER, COMMUTATOR PRESSER-C Referring Provider Active S tart: February 27, 2025 End: February 27, 2025 Team Status: Inactive Member Role/Relationship Status Dates Dr. Carlos Bernal MD Attending Provider Active S tart: April 12, 2025 End: April 12, 2025 Lela Interiano COMMUTATOR PRESSER, COMMUTATOR PRESSER-C Primary Care Provider Active Start: April 12, 2025 End: April 12, 2025 Lela Interiano COMMUTATOR PRESSER, COMMUTATOR PRESSER-C Referring Provider Active S tart: April 12, 2025 End: April 12, 2025 Team Status: Inactive Member Role/Relationship Status Dates Lela Interiano COMMUTATOR PRESSER, COMMUTATOR PRESSER-C Primary Care Provider Active Start: April 17, 2025 End: April 17, 2025 Dr. Carlos Bernal MD Attending Provider Active S tart: April 17, 2025 End: April 17, 2025 Dr. Carlos Bernal MD Referring Provider Active S tart: April 17, 2025 End: April 17, 2025 Team Status: Inactive Member Role/Relationship Status Dates Lela Interiano COMMUTATOR PRESSER, COMMUTATOR PRESSER-C Primary Care Provider Active Start: April 24, 2025 End: April 24, 2025 Lela Interiano COMMUTATOR PRESSER, COMMUTATOR PRESSER-C Referring Provider Active S tart: April 24, [...] Inactive Member Role/Relationship Status Dates Lela Interiano COMMUTATOR PRESSER, COMMUTATOR PRESSER-C Primary Care Provider Active Start: May 10, [...] 2025 End: May 16, 2025 Laney Ferreira COMMUTATOR PRESSER, COMMUTATOR PRESSER-C Attending Provider Active Start: May 16, 2025 End: May 16, 2025 Lela Interiano COMMUTATOR PRESSER, COMMUTATOR PRESSER-C Primary Care Provider Active Start: May 16, 2025 End: May 16, 2025 Team Status: Active Member Role/Relationship Status Dates Lela Interiano COMMUTATOR PRESSER, COMMUTATOR PRESSER-C Primary Care Provider Active Start: May 18, [...] Active Member Role/Relationship Status Dates Lela Interiano COMMUTATOR PRESSER, COMMUTATOR PRESSER-C Primary Care Provider Active Start: May 19, [...] Active Member Role/Relationship Status Dates Lela Interiano COMMUTATOR PRESSER, COMMUTATOR PRESSER-C Primary Care Provider Active Start: May 19, [...] Inactive Member Role/Relationship Status Dates Lela Interiano COMMUTATOR PRESSER, COMMUTATOR PRESSER-C Primary Care Provider Active Start: May 19, [...] Active Member Role/Relationship Status Dates Lela Interiano COMMUTATOR PRESSER, COMMUTATOR PRESSER-C Primary Care Provider Active Start: May 20, [...] Member Role/Relationship Status Dates Lela Interiano NP, COMMUTATOR PRESSER-C Primary Care Provider Active Start: May 20, [...] Active Member Role/Relationship Status Dates Lela Interiano COMMUTATOR PRESSER, COMMUTATOR PRESSER-C Primary Care Provider Active Start: May 21, [...] Active Member Role/Relationship Status Dates Lela Interiano COMMUTATOR PRESSER, COMMUTATOR PRESSER-C Primary Care Provider Active Start: May 21, [...] Active Member Role/Relationship Status Dates Lela Interiano COMMUTATOR PRESSER, COMMUTATOR PRESSER-C Primary Care Provider Active Start: May 22, [...] Active Member Role/Relationship Status Dates Lela Interiano COMMUTATOR PRESSER, COMMUTATOR PRESSER-C Primary Care Provider Active Start: May 23, [...] Inactive Member Role/Relationship Status Dates Lela Interiano COMMUTATOR PRESSER, COMMUTATOR PRESSER-C Primary Care Provider Active Start: May 29, 2025 End: May 29, 2025 Lela Interiano COMMUTATOR PRESSER, COMMUTATOR PRESSER-C Attending Provider Active S tart: May 29, 2025 End: May 29, 2025 Team Status: Inactive Member Role/Relationship Status Dates Lela Interiano COMMUTATOR PRESSER, COMMUTATOR PRESSER-C Primary Care Provider Active Start: June 05, 2025 End: June 05, 2025 Lela Interiano COMMUTATOR PRESSER, COMMUTATOR PRESSER-C Referring Provider Active S tart: June 05, 2025 End: June 05, 2025 Dr. Carlos Bernal MD Attending Provider Active S tart: June 05, 2025 End: June 05, 2025 Team Status: Inactive Member Role/Relationship Status Dates Lela Interiano COMMUTATOR PRESSER, COMMUTATOR PRESSER-C Primary Care Provider Active Start: February 27, 2025 End: February 27, 2025 Lela Interiano COMMUTATOR PRESSER, COMMUTATOR PRESSER-C Attending Provider Active S tart: February 27, 2025 End: February 27, 2025 Lela Interiano COMMUTATOR PRESSER, COMMUTATOR PRESSER-C Referring Provider Active S tart: February 27, 2025 End: February 27, 2025 Team Status: Inactive Member Role/Relationship Status Dates Dr. Carlos Bernal MD Attending Provider Active S tart: April 12, 2025 End: April 12, 2025 Lela Interiano COMMUTATOR PRESSER, COMMUTATOR PRESSER-C Primary Care Provider Active Start: April 12, 2025 End: April 12, 2025 Lela Interiano COMMUTATOR PRESSER, COMMUTATOR PRESSER-C Referring Provider Active S tart: April 12, 2025 End: April 12, 2025 Team Status: Inactive Member Role/Relationship Status Dates Lela Interiano COMMUTATOR PRESSER, COMMUTATOR PRESSER-C Primary Care Provider Active Start: April 17, 2025 End: April 17, 2025 Dr. Carlos Bernal MD Attending Provider Active S tart: April 17, 2025 End: April 17, 2025 Dr. Carlos Bernal MD Referring Provider Active S tart: April 17, 2025 End: April 17, 2025 Team Status: Inactive Member Role/Relationship Status Dates Lela Interiano COMMUTATOR PRESSER, COMMUTATOR PRESSER-C Primary Care Provider Active Start: April 24, 2025 End: April 24, 2025 Lela Interiano COMMUTATOR PRESSER, COMMUTATOR PRESSER-C Referring Provider Active S tart: April 24, [...] Active Start: May 02, 2025 Dr. Carlos Brenal MD Attending Provider Active S tart: May 02, 2025 Team Status: Inactive Member Role/Relationship Status Dates Lela Interiano COMMUTATOR PRESSER, COMMUTATOR PRESSER-C Primary Care Provider Active Start: May 10, 2025 End: May 10, 2025 Dr. Carlos Bernal MD Attending Provider Active S tart: May 10, 2025 End: May 10, 2025 Dr. Carlos Bernal MD Referring Provider Active S tart: May 10, 2025 End: May 10, 2025 Dr. rBian Gonzales MD Other Provider Active Sta rt: May 10, 2025 End: May 10, 2025 Team Status: Inactive Member Role/Relationship Status Dates Dr. Paola Corona MD Referring Provider Active Start: May 16, 2025 End: May 16, 2025 Laney Ferreira COMMUTATOR PRESSER, COMMUTATOR PRESSER-C Attending Provider Active Start: May 16, 2025 End: May 16, 2025 Lela Interiano COMMUTATOR PRESSER, COMMUTATOR PRESSER-C Primary Care Provider Active Start: May 16, 2025 End: May 16, 2025 Team Status: Active Member Role/Relationship Status Dates Lela Interiano COMMUTATOR PRESSER, COMMUTATOR PRESSER-C Primary Care Provider Active Start: May 18, [...] Active Member Role/Relationship Status Dates Lela Interiano COMMUTATOR PRESSER, COMMUTATOR PRESSER-C Primary Care Provider Active Start: May 19, [...] Active Member Role/Relationship Status Dates Lela Interiano COMMUTATOR PRESSER, COMMUTATOR PRESSER-C Primary Care Provider Active Start: May 19, [...] Inactive Member Role/Relationship Status Dates Lela Interiano COMMUTATOR PRESSER, COMMUTATOR PRESSER-C Primary Care Provider Active Start: May 19, [...] Member Role/Relationship Status Dates Lela Interiano NP, COMMUTATOR PRESSER-C Primary Care Provider Active Start: May 20, [...] Active Member Role/Relationship Status Dates Lela Interiano COMMUTATOR PRESSER, COMMUTATOR PRESSER-C Primary Care Provider Active Start: May 20, [...] Active Member Role/Relationship Status Dates Lela Interiano COMMUTATOR PRESSER, COMMUTATOR PRESSER-C Primary Care Provider Active Start: May 21, 2025 Dr. Jeffery Mcclain , DO Emergency [...] Member Role/Relationship Status Dates Lela Interiano NP, COMMUTATOR PRESSER-C Primary Care Provider Active Start: May 21, [...] Member Role/Relationship Status Dates Lela Interiano NP, COMMUTATOR PRESSER-C Primary Care Provider Active Start: May 22, [...] Active Member Role/Relationship Status Dates Lela Interiano COMMUTATOR PRESSER, COMMUTATOR PRESSER-C Primary Care Provider Active Start: May 23, [...] Inactive Member Role/Relationship Status Dates Lela Interiano COMMUTATOR PRESSER, COMMUTATOR PRESSER-C Primary Care Provider Active Start: May 29, 2025 End: May 29, 2025 Lela Interiano COMMUTATOR PRESSER, COMMUTATOR PRESSER-C Attending Provider Active S tart: May 29, 2025 End: May 29, 2025 Team Status: Inactive Member Role/Relationship Status Dates Lela Interiano COMMUTATOR PRESSER, COMMUTATOR PRESSER-C Primary Care Provider Active Start: June 05, 2025 End: June 05, 2025 Lela Interiano COMMUTATOR PRESSER, COMMUTATOR PRESSER-C Referring Provider Active S tart: June 05, 2025 End: June 05, 2025 Dr. Carlos Bernal MD Attending Provider Active S tart: June 05, 2025 End: June 05, 2025 Team Status: Inactive Member Role/Relationship Status Dates Lela Interiano COMMUTATOR PRESSER, COMMUTATOR PRESSER-C Primary Care Provider Active Start: June 08, 2025 End: June 08, 2025 Lela Interiano COMMUTATOR PRESSER, COMMUTATOR PRESSER-C Referring Provider Active S tart: June 08, 2025 End: June 08, 2025 Lizzy Pelaez COMMUTATOR PRESSER, COMMUTATOR PRESSER-C Attending Provider Active Start: June 08, 2025 End: June 08, 2025 Team Status: Active Member Role/Relationship Status Dates Lela Jaydon COMMUTATOR PRESSER, COMMUTATOR PRESSER-C Primary Care Provider Active Start: June 09, 2025 Lela Interiano COMMUTATOR PRESSER, COMMUTATOR PRESSER-C Attending Provider Active S tart: June 09, 2025 Lela Interiano COMMUTATOR PRESSER, COMMUTATOR PRESSER-C Referring Provider Active S tart: June 09, 2025 Team Status: Inactive Member Role/Relationship Status Dates Lela Interiano COMMUTATOR PRESSER, COMMUTATOR PRESSER-C Primary Care Provider Active Start: June 15, 2025 End: June 15, 2025 Lela Interiano COMMUTATOR PRESSER, COMMUTATOR PRESSER-C Referring Provider Active S tart: June 15, 2025 End: June 15, 2025 Dr. Isaiah Lerner MD Attending Provider Active Start: June 15, 2025 End: June 15, 2025 Team Status: Inactive Member Role/Relationship Status Dates Lela Interiano COMMUTATOR PRESSER, COMMUTATOR PRESSER-C Primary Care Provider Active Start: June 09, 2025 End: June 09, 2025 Lela Interiano COMMUTATOR PRESSER, COMMUTATOR PRESSER-C Attending Provider Active S tart: June 09, 2025 End: June 09, 2025 Lela Interiano COMMUTATOR PRESSER, COMMUTATOR PRESSER-C Referring Provider Active S tart: June 09, 2025 End: June 09, 2025 Team Status: Inactive Member Role/Relationship Status Dates Lela Interiano COMMUTATOR PRESSER, COMMUTATOR PRESSER-C Primary Care Provider Active Start: June 22, 2025 End: June 22, 2025 Dr. Isaiah Lerner MD Attending Provider Active Start: June 22, 2025 End: June 22, 2025 Dr. Isaiah Lerner MD Referring Provider Active Start: June 22, 2025 End: June 22, 2025 Team Status: Active Member Role/Relationship Status Dates Lela Interiano NP, COMMUTATOR PRESSER-C Primary Care Provider Active Start: June 22, 2025 Dr. Isaiah Lerner MD Attending Provider Active Start: June 22, 2025 Dr. Isaiah Lerner MD Referring Provider Active Start: June 22, 2025 Dr. Isaiah Lerner MD Other Provider Active Start: June 22, 2025 Team Status: Inactive Member Role/Relationship Status Dates Lela Interiano COMMUTATOR PRESSER, COMMUTATOR PRESSER-C Primary Care Provider Active Start: May 10, [...] 2025 End: May 16, 2025 Laney Ferreira COMMUTATOR PRESSER, COMMUTATOR PRESSER-C Attending Provider Active Start: May 16, 2025 End: May 16, 2025 Lela Interiano COMMUTATOR PRESSER, COMMUTATOR PRESSER-C Primary Care Provider Active Start: May 16, 2025 End: May 16, 2025 Team Status: Active Member Role/Relationship Status Dates Lela Interiano COMMUTATOR PRESSER, COMMUTATOR PRESSER-C Primary Care Provider Active Start: May 18, 2025 Dr. Jeffery Mcclain DO Emergency Provider Activ e Start: May 18, 2025 Dr. Najma Cates MD Admit Provider Active St art: May 18, 2025 Dr. Najma Cates MD Attending Provider Active Start: May 18, 2025 Dr. Najma Cates MD Other Provider Active St art: May 18, 2025 Dr. Isiaah Lerner MD Other Provider Active Start: May 18, 2025 Team Status: Active Member Role/Relationship Status Dates Lela Interiano NP, COMMUTATOR PRESSER-C Primary Care Provider Active Start: May 19, [...] Active Member Role/Relationship Status Dates Lela Interiano COMMUTATOR PRESSER, COMMUTATOR PRESSER-C Primary Care Provider Active Start: May 19, [...] Inactive Member Role/Relationship Status Dates Lela Interiano COMMUTATOR PRESSER, COMMUTATOR PRESSER-C Primary Care Provider Active Start: May 19, [...] Team Status: Active Member Role/Relationship Status Dates Llea Interiano NP, COMMUTATOR PRESSER-C Primary Care Provider Active Start: May 20, [...] Active Member Role/Relationship Status Dates Lela Interiano COMMUTATOR PRESSER, COMMUTATOR PRESSER-C Primary Care Provider Active Start: May 20, 2025 Dr. Jeffery Klusty-Will , DO Emergency Provider Activ e Start: [...] Active Member Role/Relationship Status Dates Lela Interiano COMMUTATOR PRESSER, COMMUTATOR PRESSER-C Primary Care Provider Active Start: May 21, [...] Active Member Role/Relationship Status Dates Lela Interiano COMMUTATOR PRESSER, COMMUTATOR PRESSER-C Primary Care Provider Active Start: May 21, [...] Member Role/Relationship Status Dates Lela Interiano NP, COMMUTATOR PRESSER-C Primary Care Provider Active Start: May 22, [...] Active Start: May 22, 2025 Dr. Joseph Linsdey MD Other Provider Active Start: May 22, 2025 Dr. Brian Negrete MD Other Provider Active Star t: May 22, 2025 Team Status: Active Member Role/Relationship Status Dates Lela Interiano COMMUTATOR PRESSER, COMMUTATOR PRESSER-C Primary Care Provider Active Start: May 23, [...] Inactive Member Role/Relationship Status Dates Lela Interiano COMMUTATOR PRESSER, COMMUTATOR PRESSER-C Primary Care Provider Active Start: May 29, 2025 End: May 29, 2025 Lela Interiano COMMUTATOR PRESSER, COMMUTATOR PRESSER-C Attending Provider Active S tart: May 29, 2025 End: May 29, 2025 Team Status: Inactive Member Role/Relationship Status Dates Lela Interiano COMMUTATOR PRESSER, COMMUTATOR PRESSER-C Primary Care Provider Active Start: June 05, 2025 End: June 05, 2025 Lela Interiano COMMUTATOR PRESSER, COMMUTATOR PRESSER-C Referring Provider Active S tart: June 05, 2025 End: June 05, 2025 Dr. Carlos Bernal MD Attending Provider Active S tart: June 05, 2025 End: June 05, 2025 Team Status: Inactive Member Role/Relationship Status Dates Lelalita Interiano COMMUTATOR PRESSER, COMMUTATOR PRESSER-C Primary Care Provider Active Start: June 08, 2025 End: June 08, 2025 Lela Interiano COMMUTATOR PRESSER, COMMUTATOR PRESSER-C Referring Provider Active S tart: June 08, 2025 End: June 08, 2025 Lizzy Pelaez COMMUTATOR PRESSER, COMMUTATOR PRESSER-C Attending Provider Active Start: June 08, 2025 End: June 08, 2025 Team Status: Inactive Member Role/Relationship Status Dates Lela Interiano COMMUTATOR PRESSER, COMMUTATOR PRESSER-C Primary Care Provider Active Start: June 09, 2025 End: June 09, 2025 Lela Interiano COMMUTATOR PRESSER, COMMUTATOR PRESSER-C Attending Provider Active S tart: June 09, 2025 End: June 09, 2025 Lela Interiano COMMUTATOR PRESSER, COMMUTATOR PRESSER-C Referring Provider Active S tart: June 09, 2025 End: June 09, 2025 Team Status: Inactive Member Role/Relationship Status Dates Lela Interiano COMMUTATOR PRESSER, COMMUTATOR PRESSER-C Primary Care Provider Active Start: June 15, 2025 End: June 15, 2025 Lela Interiano COMMUTATOR PRESSER, COMMUTATOR PRESSER-C Referring Provider Active S tart: June 15, 2025 End: June 15, 2025 Dr. Isaiah Lerner MD Attending Provider Active Start: June 15, 2025 End: June 15, 2025 Team Status: Inactive Member Role/Relationship Status Dates Lela Interiano COMMUTATOR PRESSER, COMMUTATOR PRESSER-C Primary Care Provider Active Start: June 22, 2025 End: June 22, 2025 Dr. Isaiah Lerner MD Attending Provider Active Start: June 22, 2025 End: June 22, 2025 Dr. Isaiah Lerner MD Referring Provider Active Start: June 22, 2025 End: June 22, 2025 Team Status: Active Member Role/Relationship Status Dates Lela Interiano NP, COMMUTATOR PRESSER-C Primary Care Provider Active Start: June 22, 2025 Dr. Isaiah Lerner MD Attending Provider Active Start: June 22, 2025 Dr. Isaiah Lerner MD Referring Provider Active Start: June 22, 2025 Dr. Isaiah Lerner MD Other Provider Active Start: June 22, 2025 Team Status: Active Member Role/Relationship Status Dates Dr. Paola Corona MD Primary Care Provider Active Start: June 26, 2025 Dr. Paola Corona MD Family Provider Active St art: June 26, 2025 Dr. Paola Corona MD Referring Provider Active Start: June 26, 2025 Dr. Carlos Bernal MD Attending Provider Active S tart: June 26, 2025 Team Status: Inactive Member Role/Relationship Status Dates Lela Interiano COMMUTATOR PRESSER, COMMUTATOR PRESSER-C Primary Care Provider Active Start: June 26, 2025 End: June 26, 2025 Lela Interiano NP, COMMUTATOR PRESSER-C Referring Provider Active S tart: June 26, 2025 End: June 26, 2025 Dr. Carlos Bernal MD Attending Provider Active S tart: June 26, 2025 End: June 26, 2025 FOR RECORDS PERTAINING TO PATIENTS WHO [...] BE BASED ON THE PRIMARY CLINICAL RECORDS. [employer] [facility]. provides no warranty or guarantee of the accuracy or completeness of information in this document.
[2025-07-04] MEDS: 0.9% Normal Saline (1000mL) 1,000 ML 999 ML IV (20:40)
--- NOTE | 2025-07-04 21:04 | CT_ITS ---
PROCEDURE: ABDOMEN/PELVIS W IV CONT ONLY 07/04/2025 REASON FOR EXAM: NAUSEA AND VOMITING, HISTORY OF OBSTRUCTION TECHNIQUE: Procedure Code: [id number] Modality: CT Procedure: ABDOMEN/PELVIS W IV CONT ONLY Coronal and Sagittal reconstruction series were provided. CONTRAST: 100 mL of Isovue 370 One or more dose reduction techniques were used (e.g., Automated exposure control, adjustment of the mA and/or kV according to patient size, use of iterative reconstruction technique. RADIATION DOSE SUMMARY: DLP: 448 mGycm COMPARISON: 05/22/2025 FINDINGS: Limited sections of the lung bases demonstrate no focal pulmonary mass or consolidations. Left base subsegmental atelectasis. Right base calcified granuloma. The liver, spleen, pancreas, and both adrenal glands demonstrate no acute findings. The gallbladder is unremarkable. The stomach is unremarkable. Diffuse small-bowel thickening and wall inflammation concerning for bowel obstruction with transition point suspected at the distal small bowel at the posterior pelvic region (series 2 image 81) with prominent segmental thickening concerning for underlying enteritis. There is collapsed small bowel distal to this section. The appendix is not clearly identified, although there are no secondary signs of appendicitis. No colonic obstruction. Colonic diverticulosis without acute diverticulitis. Trace free fluid. No free air. 2.8 x 2.6 cm exophytic cyst at the inferior pole of the right kidney. Scattered subcentimeter hypodensities throughout bilateral kidneys too small to accurately characterize. No hydronephrosis. No obstructive uropathy. The urinary bladder is distended. The pelvic structures are intact. There is no solid pelvic mass. No significant lymphadenopathy. The aorta and IVC demonstrate no acute findings. Mild atherosclerosis of the abdominal vasculature. Visualized osseous structures demonstrate no acute abnormality. CT/Abdomen/Pelvis W IV Cont ONLY IMPRESSION: Diffuse small-bowel thickening and wall inflammation concerning for bowel obstr uction with transition point suspected at the distal small bowel at the posterior pelvic region (series 2 image 81) with prom inent segmental thickening concerning for underlying enteritis. Reading Location: [id number]
[2025-07-04 21:14] LABS: AST(SGOT) 28 U/L (<=31); Alanine Aminotransfer ALT/SGPT 15 U/L (<=34); Albumin, Serum 3.7 g/dL (3.4-4.8); Alkaline Phosphatase 66 U/L (35-104); Anion Gap 14 (5-15); BUN 16 mg/dL (4-19); BUN/Creat Ratio 27.8 RATIO (10-20); Calcium,Total 8.6 mg/dL (7.6-11.0); Carbon Dioxide 19.0 mmol/L (21.0-32.0); Chloride 101 mmol/L (98-108); Estimated Creatinine Clearance 45.36 ml/min (50-250); Globulin 3.0 g/dL (2.2-4.2); Glucose 133 mg/dL (70-99); Lipase 56 U/L (13-75); Potassium 3.4 mmol/L (3.3-5.1)
[2025-07-04 21:23] LABS: Hematocrit 30.9 % (37-47); Hemoglobin 10.2 g/dL (12.0-15.0); Immature Granulocytes Count 0.020 X10^3/uL (0.0-0.0); Mean Corp Hgb Conc 33.0 g/dL (32-36); Mean Corpuscular Volume 86.3 fL (81-99); Mean Platelet Vol. 11.3 fl (6.2-12.0); NRBC Flagged by Analyzer 0 % (0-5); POSITIVE DIFFERENTIAL YES; Platelet Count 314 K/mm3 (150-450); RBC Distribution Width CV 13.5 % (11.6-14.6); RBC Distribution Width SD 42.3 fl (35.1-43.9); Red Blood Count 3.58 M/mm3 (4.2-5.4); White Blood Count 3.8 K/mm3 (4.4-11.0)
[2025-07-04 21:36] LABS: Mucous, Urine 0 SEEN /hpf (<or=2+)
[2025-07-04 21:54] LABS: Color, Urine Straw (Yellow); Glucose, Dipstick Normal (Normal); Ketone-Dipstick Negative (Negative); Leukocyte Esterase-Dipstick Negative /ul (Negative); Nitrite-Dipstick Negative (Negative); Occult Blood-Urine Negative /ul (Negative); Protein-Dipstick Negative (Negative); Specific Gravity, Urine 1.010 (1.002-1.030); Urine Bilirubin Dipstick Negative (Negative)
--- NOTE | 2025-07-04 22:40 | PCM.HP.STD ---
[facility] - General General Date of Admission: 07/04/25 Date of Service: 07/04/25 Chief Complaint: Abdominal Pain, Nausea and Vomiting. 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 Bernal of oncology, history of partial SBO admitted here from May 21, 2025 to May 23, 2025, history of diverticulosis, history of hiatal hernia and OA who presents to [facility] complaining of abdominal pain with nausea and vomiting. Ms. Clancy reports her symptoms began earlier this afternoon with the abrupt-onset of upper abdominal pain that was originally sharp and stabbing but has now become dull and aching with her last BM earlier today but no flatus recently. She states her symptoms are similar to her previous partial SBO a few months ago. There was no report of associated fever, chills, hematemesis, blood in stools, chest pain, palpitations, heart racing, lower extremity edema, dysuria, hematuria, headache or rash. In the ER she underwent a CT scan of the abdomen and pelvis that revealed diffuse small-bowel thickening and wall inflammation concerning for Bowel Obstruction with transition point suspected at the distal small bowel at the posterior pelvic region with prominent segmental thickening concerning for underlying Enteritis in addition to a ~2.8 cm x ~2.6 cm exophytic cyst at the inferior pole of the Right kidney with scattered subcentimeter densities throughout bilateral kidneys too small to characterize complicated by clinical evidence of Epigastric Abdominal Pain with Nausea and Vomiting compounded by laboratory evidence of Neutropenia of 3.8K present on admission in the setting of known Stage IV Lung Cancer on chemotherapy. The ER physician then spoke to the general surgeon on-call who recommended NGT placement and admission to the hospitalist service with formal consultation pending in the AM. She was then admitted to the general medical floor for ongoing care for a stay that is expected to extend beyond 2 midnights. [facility] Medical History (Updated 07/05/25 @ 00:09 by Stephanie Guillen) Lung cancer Thyroid disease Wears glasses Wears dentures Anxiety History of hiatal hernia Non-smoker Shortness of breath on exertion History of edema History of Holter monitoring Cardiology follow-up encounter History of echocardiogram History of stress test HTN (hypertension) Cancer Diverticulosis Pulmonary nodule Home Medications ?Medication ?Instructions ?Recorded ?Last Taken ?Type Calcium Carbonate/Vitamin D 1 tab PO DAILY supplement 08/01/13 08/25/17 History Multivitamins,Therapeutic 1 tab PO DAILY supplement 08/01/13 06/21/25 History lactobacillus combination no.9 4 4,000 mmu cells PO DAILY supplement 03/23/23 06/21/25 History billion cell capsule (Adult 50 Plus Probiotic) metoprolol succinate 50 mg 50 mg PO QDAY cardiac #90 tabs 01/11/25 06/22/25 Rx tablet,extended release 24 hr (Toprol XL) lidocaine-prilocaine 2.5 %-2.5 % 1 applic topical ONCE PRN port 06/13/25 Unknown Rx topical cream access 30 days #30 grams ondansetron 8 mg disintegrating 8 mg PO Q8H PRN nausea and 06/13/25 Unknown Rx tablet vomiting #30 tabs levothyroxine 50 mcg tablet 50 mcg PO DAILY thyroid replacement 06/16/25 06/22/25 History Allergy/AdvReac Type Severity Reaction Status Date / Time doxycycline AdvReac Severe Nausea Verified 07/04/25 19:33 erythromycin base AdvReac Severe Nausea Verified 07/04/25 19:33 (Erythromycin Base) clindamycin AdvReac Intermediate Thrush Verified 07/04/25 19:33 Penicillins AdvReac Intermediate Hives Verified 07/04/25 19:33 Family History Mother Colon cancer Breast cancer Daughter Thyroid disorder Father No problems noted. Surgical History Hx of oral surgery Hx of colonoscopy History of lung biopsy History of tubal ligation History of hysterectomy Social History household members: none Smoking Status: Never smoker alcohol intake: never substance use type: does not use ROS ROS Narrative Review of Systems: Constitutional: Patient denies fever or chills. Eyes: Patient denies changes in vision or discharge from eyes. ENT: Patient denies runny nose, sore throat or ear pain. Resp: Patient denies SOB or cough. CV: Patient denies chest pain, palpitations, heart racing or LE edema. GI: Patient admits to epigastric pain with nausea and vomiting as per HPI. : Patient denies dysuria or hematuria. MSK: Patient denies arthralgias or myalgias. Skin: Patient denies rash, abscess, wounds or jaundice. Psych: Patient denies symptoms of uncontrolled depression or anxiety. Neuro: Patient denies headache, paresthesias or focal neurologic deficits. Allergy: Patient denies lip swelling, tongue swelling or urticaria. Hematology: Patient denies easy bleeding or easy bruisability. Endocrinology: Patient denies polyuria, polydipsia, polyphagia or heat/cold intolerance. 14 point ROS otherwise negative except for positives noted above in HPI. Vital Signs Vital Signs Vital Signs: 07/04/25 19:34 07/04/25 20:36 07/04/25 21:35 Temperature 97.9 F 97.9 F Temperature Source Oral Oral Pulse Rate 87 78 83 Respiratory Rate 16 17 Blood Pressure 165/99 H 153/74 H 181/87 H Blood Pressure Mean 121 100 118 Pulse Ox 100 96 99 Oxygen Delivery Method Room Air Room Air Room Air Weight Weight: 121 lb Body Mass Index (BMI) 20.1 Physical Exam Const alert, oriented x3, no apparent distress and average body habitus General Appearance: cooperative HEENT normocephalic, head/scalp atraumatic and hearing grossly normal bilaterally HEENT Narrative: Mucous membranes dry, Eyes PERRL, EOMs intact bilaterally and conjunctivae normal Neck no lymphadenopathy, supple and no JVD Resp normal respiratory effort, no retractions, no use of accessory muscles and clear to auscultation bilaterally Resp Narrative: Patient has Medi-Port over Right chest wall. Cardio regular rate and regular rhythm GI GI Narrative: Minimal TTP over the epigastrium with no guarding or rebound and positive bowel sounds throughout. Extremity normal to inspection, full ROM and no clubbing, cyanosis or edema Skin Skin Narrative: Patient has no evidence of rash, abscess, wounds or jaundice. Neuro oriented x3, CN's II-XII intact bilaterally, moves all extremities and no focal motor deficits Sensorium / Orientation: awake, alert, oriented to person, oriented to place and oriented to time Speech: speech normal Psych affect normal Results Medical Records Data Attestation: I reviewed the patient's medical records Lab / Micro Data Attestation: I reviewed the patient's lab results. 07/04/25 20:40 07/04/25 20:40 Labs: Laboratory Results - last 24 hr 07/04/25 20:40: WBC 3.8 L, RBC 3.58 L, Hgb 10.2 L, Hct 30.9 L, MCV 86.3, MCH 28.5, MCHC 33.0, RDW Std Deviation 42.3, RDW Coeff of Karthikeyan 13.5, Plt Count 314, MPV 11.3, Immature Gran % (Auto) 0.500, Neut % (Auto) 89.1 H, Lymph % (Auto) 5.6 L, [place] % (Auto) 4.0, Eos % (Auto) 0.3, Baso % (Auto) 0.5, Absolute Neuts (auto) 3.4, Absolute Lymphs (auto) 0.21 L, Nucleated RBC % 0, Sodium 134, Potassium 3.4, Chloride 101, Carbon Dioxide 19.0 L, Anion Gap 14, BUN 16, Creatinine 0.57 L, Estim Creat Clear Calc 45.36 L, Est GFR (MDRD) Non-Af 90, BUN/Creatinine Ratio 27.8 H, Glucose 133 H, Calcium 8.6, Total Bilirubin 0.40, AST 28, ALT 15, Alkaline Phosphatase 66, Total Protein 6.6, Albumin 3.7, Globulin 3.0, Albumin/Globulin Ratio 1.2, Lipase 56 07/04/25 21:30: Urine Color Straw, Urine Clarity Clear, Urine pH 8.0, Ur Specific [place] 1.010, Urine Protein Negative, Urine Glucose (UA) Normal, Urine Ketones Negative, Urine Occult Blood Negative, Urine Nitrite Negative, Urine Bilirubin Negative, Urine Urobilinogen Normal, Ur Leukocyte Esterase Negative Imaging Radiology Impression Abdomen/Pelvis CT 07/04/25 21:04 IMPRESSION: Diffuse small-bowel thickening and wall inflammation concerning for bowel obstruction with transition point suspected at the distal small bowel at the posterior pelvic region (series 2 image 81) with prominent segmental thickening concerning for underlying enteritis. Reading Location: [id number] Imaging Services [address] [place], [place] [id number] Abdomen Single View (Portable) MR#: [id number] Acct: [id number] Name: LAI CLANCY Rep #: [id number] : 1940 F 85 From: Abdulaziz Miller MD PCP: Dr. Herminio Webber MD Status: [facility] ER Study: Abdomen Single View (Portable) Date of Exam: 07/04/25 Exam# [id number] Ordering Dr: Harjinder Rivero MD PROCEDURE: ABDOMEN SINGLE VIEW (PORTABLE) 07/04/2025 REASON FOR EXAM: NG INSERTION TECHNIQUE: Procedure Code: RADABD_P Modality: DX Procedure: ABDOMEN SINGLE VIEW (PORTABLE) FINDINGS: Orogastric tube terminates in the mid gastric body. RAD/Abdomen Single View (Portable) IMPRESSION: Orogastric tube in satisfactory position. Reading Location: [id number] CC: Dr. Harjinder Rivero MD; Dr. Herminio Webber MD ~ Environmental Science Instructor: Signed Assessment & Plan Assessment/Plan (1) Small bowel obstruction: (2) Enteritis: (3) Abdominal pain: QUALIFIERS: Abdominal location: epigastric Qualified Code(s): R10.13 - Epigastric pain (4) Nausea and vomiting: QUALIFIERS: Vomiting type: bilious vomiting Qualified Code(s): R11.14 - Bilious vomiting (5) Neutropenia: QUALIFIERS: Neutropenia type: secondary to cancer chemotherapy Qualified Code(s): D70.1 - Agranulocytosis secondary to cancer chemotherapy; T45.1X5A - Adverse effect of antineoplastic and immunosuppressive drugs, initial encounter (6) History of endometrial cancer: (7) Uterine cancer: QUALIFIERS: Malignant neoplasm of uterus location: unspecified site of uterus Qualified Code(s): C55 - Malignant neoplasm of uterus, part unspecified PLAN: Plan 1. CT scan of the abdomen and pelvis that revealed diffuse small-bowel thickening and wall inflammation concerning for Bowel Obstruction with transition point suspected at the distal small bowel at the posterior pelvic region with prominent segmental thickening concerning for underlying Enteritis in addition to a ~2.8 cm x ~2.6 cm exophytic cyst at the inferior pole of the Right kidney with scattered subcentimeter densities throughout bilateral kidneys too small to characterize - Admit to general medical floor. Keep strict NPO and maintain NGT to IWS. Give NS IVF @ 125 cc/hour x 2 liters and then reassess. Give pantoprazole 40 mg IV daily. Give ketorolac IV prn for [id number] (level 1-5/10) pain or fever. Give morphine IV prn for severe (level 6-10/10) pain. Finally, we will consult Dr. Nino of general surgery to see this patient on-rounds in the AM for further recommendations with help appreciated in advance. 2. Epigastric Abdominal Pain with Nausea and Vomiting due to #1 - Give ondansetron IV prn for nausea and vomiting. Give prochlorperazine IV prn for breakthrough nausea. 3. Stage IV Cancer with metastases to lung on Chemotherapy with Neutropenia of 3.8K present on admission complicating #1 & #2 - Noted. 4. History of partial SBO a few months ago adding to the medical complexity of #1 - #3 - Noted. 5. Essential hypertension; on metoprolol - Hold oral metoprolol until patient can tolerate oral intake. Give metoprolol IV prn for systolic blood pressure > 160 mmHg. 6. Hypothyroidism; on levothyroxine - Restart oral levothyroxine when patient can tolerate oral intake. Check TSH. 7. History of uterine cancer; s/p hysterectomy (2012) - Noted with metastases outlined in #3. 8. History of diverticulosis - Noted. 9. History of hiatal hernia - Stable. 10. OA - Stable. Give ketorolac IV prn as outlined in #1. 11. DVT prophylaxis - SCD's only in case of possible surgical intervention. Total time: Approximately (but not less than) 75 minutes. Charges/Coding Visit Charges Inpatient E&M: 90239 Init Hosp L3
[2025-07-04 22:43] LABS: Red Blood Cells-Urine 0-5 SEEN /hpf (0-5); Squamous Epithelial Cells - UA 0-5 SEEN /hpf (5-10)
--- NOTE | 2025-07-04 22:43 | RAD_ITS ---
PROCEDURE: ABDOMEN SINGLE VIEW (PORTABLE) 07/04/2025 REASON FOR EXAM: NG INSERTION TECHNIQUE: Procedure Code: RADABD_P Modality: DX Procedure: ABDOMEN SINGLE VIEW (PORTABLE) FINDINGS: Orogastric tube terminates in the mid gastric body. RAD/Abdomen Single View (Portable) IMPRESSION: Orogastric tube in satisfactory position. Reading Location: [id number]
[2025-07-04] MEDS: Oxymetazoline 0.05% 1 SPRAY SPRAY.BTL 2 SPRAY NASAL (22:44)
--- OUTSIDE RECORDS SUMMARY | 2025-07-04 23:32 | XMS RPT_ITS | CCD ---
Author Organization [facility] Care Team Providers Care Scientific Specialist Name Role Phone Carlos Bernal MD Unavailable [...] Mike SANTIAGO Dr. Riley Other Provider Jaydon [employer] DESIGNER-C, Lela Primary Care Provider Jaydon [employer] DESIGNER-C, Lela Attending Provider Jaydon [employer] DESIGNER-C, Lela Referring Provider Dolores SANTIAGO, Dr. Gonzalez Attending Provider Chloe SANTIAGO, Dr. Paola Lebron Primary Care Provider Chloe SANTIAGO, Dr. Paola Lebron Referring Provider Dolores SANTIAGO, Dr. Gonzalez Referring Provider Chloe SANTIAGO, Dr. Paola Lebron Primary Care Provider Mike SANTIAGO, Dr. Lin Attending Provider Chloe SANTIAGO, Dr. Paola Lebron Referring Provider Christian SANTIAGO, Dr. Torres Other Provider Unavailabl edward Ferreira [employer]GY SYSTEMS DESIGNER-C, Laney Attending Provider Dr. Jeffery Mcclain DO Emergency Provider Darryn SANTIAGO, Dr. Najma Brown Admit Provider Darryn SANTIAGO, Dr. Najma Brown Attending Provider Darryn SANTIAGO, Dr. Najma Brown Other Provider Yann SANTIAGO, Dr. Colno Other Provider Caden SANTIAGO, Dr. Torres Attending Provider Unavailindra Negrete MD, Dr. Torres Other Provider Unavailable Yann SANTIAGO, Dr. Colon Attending Provider [phone] Caden SANTIAGO, Dr. Torres Attending Provider Unavailindra [...] Provider Yann SANTIAGO, Dr. Colon Referring Provider [phone] Chloe SANTIAGO, Dr. Paola Lebron Referring Provider Chloe SANTIAGO, Dr. Paola Lebron Primary Care Provider Paola Corona Primary Care Unavailable Mike, [place] Attending Unavailable Chloe, Paola S Referring Unavailable Jaydon [employer] SYSTEMS DESIGNER, Lela Primary Care Unavailable Jhon BENJAMIN, Laney Attending Unavailable Jaydon [employer] SYSTEMS DESIGNER, Lela Referring Unavailable Carlos Bernal Attending Unavailable Jaydon SOL[employer]GY SYSTEMS DESIGNER, Lela Primary Care Unavailable Jaydon SOL[employer]GY SYSTEMS DESIGNER, Lela Referring Unavailable Jaydon SOL[employer]GY SYSTEMS DESIGNER, Lela Primary Care Unavailable Carlos Bernal Attending Unavailable Isaiah Lerner Attending Unavailable Isaiah Lerner Referring Unavailable Isaiah Lerner Consulting Unavailable Jaydon [employer]S DESIGNER, Lela Primary Care Unavailable Joseph Lindsey Referring Unavailable Yann, Isaiah Attending Unavailable Isaiah Lerner Consulting Unavailable White, Najma L Admitting Unavailable Jaydon [employer]S DESIGNER, Lela Primary Care Unavailable White, Najma L Consulting Unavailable Brian Negrete Consulting Unavailable Brian Negrete Attending Unavailable Isaiah Lerner Consulting Unavailable Jaydon [employer] SYSTEMS DESIGNER, Lela Primary Care Unavailable White, Najma L Admitting Unavailable White, Najma L Consulting Unavailable Brian Negrete Consulting Unavailable White Najma L Attending Unavailable Jaydon [employer] SYSTEMS DESIGNER, Lela Referring Unavailable Jaydon SOLAR ENERGY SYSTEMS DESIGNER, Lela Primary Care Unavailable Carlos Bernal Attending Unavailable Isaiah Lerner Attending Unavailable Jaydon [employer] SYSTEMS DESIGNER, Lela Referring Unavailable Jaydon SOL[employer] EN[employer]GY SYSTEMS DESIGNER, Lela Primary Care Unavailable Joseph Lindsey Attending Unavailable Joseph Lindsey Consulting Unavailable Jaydon SOL[employer]GY SYSTEMS DESIGNER, Lela Primary Care Unavailable Jaydon SOL[employer]GY SYSTEMS DESIGNER, Lela Attending Unavailable Jaydon SOL[employer] EN[employer]GY SYSTEMS DESIGNER, Lela Referring Unavailable Jaydon [employer] SYSTEMS DESIGNER, Lela Primary Care Unavailable Jaydon SOL[employer]GY SYSTEMS DESIGNER, Lela Attending Unavailable Paola Corona Primary Care Unavailable Mike, Riley Attending Unavailable Mike, Riley Referring Unavailable Jolliff, Paola S Primary Care Unavailable Jolliff, Paola S Attending Unavailable Jolliff, Paola S Referring Unavailable Isaiah Lerner Attending Unavailable Geovanna Nino Attending Unavailable Brian Gonzales Consulting Unavailable Prah, Carlos Attending Unavailable Jaydon [employer]S DESIGNER, Lela Primary Care Unavailable Prah, Carlos Referring Unavailable Jolliff, Paola S Primary Care Unavailable Jolliff, Paola S Referring Unavailable Prah, Carlos Attending Unavailable Brian Negrete Attending Unavailable Latanya SOL[employer] EN[employer]GY SYSTEMS DESIGNER, Lizzy Attending Unavailable Jaydon SOL[employer] EN[employer]GY SYSTEMS DESIGNER, Lela Referring Unavailable Jaydon SOL[employer] EN[employer]GY SYSTEMS DESIGNER, Lela Primary Care Unavailable Jaydon [employer] SYSTEMS DESIGNER, Lela Referring Unavailable Jaydon SOL[employer] EN[employer]GY SYSTEMS DESIGNER, Lela Primary Care Unavailable Prah, Calros Attending Unavailable Jolliff, Paola S Referring Unavailable Jolliff, Paola S Primary Care Unavailable Mike, Riley Attending Unavailable [place] Attending Unavailable Jolliff, Paola S Primary Care Unavailable Jolliff, Paola S Referring Unavailable Jolliff, Paola S Primary Care Unavailable Jolliff, Paola S Attending Unavailable Jolliff, Paola S Referring Unavailable Prah, Carlos Referring Unavailable Jaydon SOL[employer]GY SYSTEMS DESIGNER, Lela Primary Care Unavailable Prah, Carlos Attending Unavailable Jaydon SOL[employer]GY SYSTEMS DESIGNER, Lela Referring Unavailable Jaydon SOLAR ENERGY SYSTEMS DESIGNER, Lela Attending Unavailable Jaydon SOL[employer] EN[employer]GY SYSTEMS DESIGNER, Lela Primary Care Unavailable Isaiah Lerner Attending Unavailable Isaiah Lerner Referring Unavailable Jaydon [employer]GY SYSTEMS DESIGNER, Lela Primary Care Unavailable Joseph Lindsey Attending Unavailable Isaiah Lerner Consulting Unavailable Najma Cates Admitting Unavailable Jaydon [employer] SYSTEMS DESIGNER, Lela Primary Care Unavailable Najma Cates Consulting Unavailable Brian Negrete Consulting Unavailable Jolliff, Paola S Primary Care Unavailable Mike, [place] Consulting Unavailable Mike, Riley Attending Unavailable Mike, Riley Referring Unavailable Allergies Allergy Classification Reported Allergen(s) Allergy Type Date of Onset Reaction(s) Facility (20 sources) doxycycline; Translations: [doxycycline] drug allergy 2 Nausea [facility] Work Phone: (1 source) erythromycin drug allergy [facility] Work Phone: (20 sources) Erythromycin Drug Allergy 2 [facility] (20 sources) Penicillins; Translations: [Penicillins] Propensity to adverse reactions 2 Hives [facility] (14 sources) Clindamycin Drug Allergy 5 [facility] (1 source) Clindamycin Drug Allergy 5 [facility] Repository (1 source) erythromycin base Drug allergy (disorder) 5 [facility] Repository Medications Current Medications Medication [...] mouth three times daily CALCIUM CARBONATE-VITAMIN D [id number] Selina Lealpie JAMES Calcium Carbonate/Vitamin D tablet [...] 4:33pm Start: 08-01-2013 take 1 tablet by [facility] once daily Multivitamins,Therapeutic Active 1 TABLE [...] as directed as needed CALCIUM CARBONATE ANTACID [id number] Selina Ainsley RAMIREZ cephalexin 500 mg oral [...] One tablet by mouth daily MULTIPLE VITAMIN [id number] Selina Ainsley RAMIREZ Nystatin 100,000 unit/mL suspension [...] hours as needed for nausea PROMETHAZINE HCL [id number] Selina Schmitz LPN psyllium 3400 mg powder [...] 1/2 tsp with water once daily PSYLLIUM [id number] Selina Schmitz LPN vitamin b6 100 mg oral table t (20 sources) Start: 08-02-2013 End: 02-18-2017 Pyridoxine Hcl (Vitamin B-6) 100 MG tablet Discontinued 50 mg PO TWICE A DAY August 02, 2013 12:00am February 18, 2017 1:35pm End: 11-21-2014 take 1 tablet by mouth twice daily VITAMIN B-6 50 MG TABS One tablet by mouth twice daily PYRIDOXINE HCL [id number] Selina Schmitz LPN Problems Active Problems Problem [...] Absolute Lymph 0.44 X10 3/uL Low 0.83-4.51 [facility] Comment on above: Performed By: #### L 500.4050, L501.5200, L100.0100 ####[facility] [address] [place], [address] Absolute Neut 3.4 X10 3/uL Normal 2.0-7.7 [facility] Comment on above: Performed By: #### L 500.4050, L501.5200, L100.0100 ####[facility] [address] [place], [address] Basophils/100 WBC (Bld) 1.2 % High 0-1 [facility] Comment on above: Performed By: #### L 500.4050, L501.5200, L100.0100 ####[facility] [address] [place], [address] Eosinophils/100 WBC (Bld) 2.1 % Normal 0-5 [facility] Comment on above: Performed By: #### L 500.4050, L501.5200, L100.0100 ####[facility] [address] [place], [address] Erythrocyte distribution width (RBC) [Ratio] 13.5 % Normal 11.6-14.6 [facility] Comment on above: Performed By: #### L 500.4050, L501.5200, L100.0100 ####[facility] [address] [place], [address] Hematocrit (Bld) [Volume fraction] 28.9 % Low 37-47 [facility] Comment on above: Performed By: #### L 500.4050, L501.5200, L100.0100 ####[facility] [address] [place], [address] Hemoglobin (Bld) [Mass/Vol] 9.3 g/dL Low 12.0-15.0 [facility] Comment on above: Performed By: #### L 500.4050, L501.5200, L100.0100 ####[facility] [address] [place], [address] IG% 1.200 High 0.0-0.9 [facility] Comment on above: Result Comment: IG% - Immature Granulocytes (promyelocytes, myelocytes andmetamyelocytes) > 1% indicates that a LEFT SHIFT is Present. Performed By: #### L 500.4050, L501.5200, L100.0100 ####[facility] [address] [place], [address] Lymphocytes/100 WBC (Bld) 10.5 % Low 19-41 [facility] Comment on above: Performed By: #### L 500.4050, L501.5200, L100.0100 ####[facility] [address] [place], [address] MCH (RBC) [Entitic mass] 28.2 pg Normal 27.0-32.0 [facility] Comment on above: Performed By: #### L 500.4050, L501.5200, L100.0100 ####[facility] [address] [place], [address] MCHC (RBC) [Mass/Vol] 32.2 g/dL Normal 32-36 [facility] Comment on above: Performed By: #### L 500.4050, L501.5200, L100.0100 ####[facility] [address] [place], [address] MCV (RBC) [Entitic vol] 87.6 fL Normal 81-99 [facility] Comment on above: Performed By: #### L 500.4050, L501.5200, L100.0100 ####[facility] [address] [place], [address] Monocytes/100 WBC (Bld) 5.5 % Normal 0-10 [facility] Comment on above: Performed By: #### L 500.4050, L501.5200, L100.0100 ####[facility] [address] [place], [address] Neutrophils/100 WBC (Bld) 79.5 % High 47-70 [facility] Comment on above: Performed By: #### L 500.4050, L501.5200, L100.0100 ####[facility] [address] [place], [address] Nucleated RBC (Bld) [#/Vol] 0 10*3/uL Normal 0-5 [facility] Comment on above: Performed By: #### L 500.4050, L501.5200, L100.0100 ####[facility] [address] [place], [address] Platelet mean volume (Bld) [Entitic vol] 10.6 fL Normal 6.2-12.0 [facility] Comment on above: Performed By: #### L 500.4050, L501.5200, L100.0100 ####[facility] [address] [place], [address] Platelets (Bld) [#/Vol] 274 10*3/uL Normal 150-450 [facility] Comment on above: Performed By: #### L 500.4050, L501.5200, L100.0100 ####[facility] [address] [place], [address] RBC (Bld) [#/Vol] 3.30 10*6/uL Low 4.2-5.4 [facility] Comment on above: Performed By: #### L 500.4050, L501.5200, L100.0100 ####[facility] [address] [place], [address] RDW SD 43.5 fl Normal 35.1-43.9 [facility] Comment on above: Performed By: #### L 500.4050, L501.5200, L100.0100 ####[facility] [address] [place], [address] WBC (Bld) [#/Vol] 4.2 10*3/uL Low 4.4-11.0 [facility] Comment on above: Performed By: #### L 500.4050, L501.5200, L100.0100 ####[facility] [address] [place], [address] Comprehensive Metabolic Prof [facility] 07-03-2025 Albumin [Mass/Vol] 3.9 g/dL Normal 3.4-4.8 [facility] Comment on above: Performed By: #### L 500.4050, L501.5200, L100.0100 ####[facility] [address] [place], [address] Albumin/Globulin [Mass ratio] 1.3 {ratio} Normal 0.9-2.4 [facility] Comment on above: Performed By: #### L 500.4050, L501.5200, L100.0100 ####[facility] [address] [place], [address] ALK PHOS 69 U/L Normal 35-104 [facility] Comment on above: Performed By: #### L 500.4050, L501.5200, L100.0100 ####[facility] [address] [place], [address] ALT [Catalytic activity/Vol] 16 U/L Normal <=34 [facility] Comment on above: Performed By: #### L 500.4050, L501.5200, L100.0100 ####[facility] [address] [place], [address] AST [Catalytic activity/Vol] 25 U/L Normal <=31 [facility] Comment on above: Performed By: #### L 500.4050, L501.5200, L100.0100 ####[facility] [address] [place], [address] Bilirubin [Mass/Vol] 0.35 mg/dL Normal 0.00-1.30 [facility] Comment on above: Performed By: #### L 500.4050, L501.5200, L100.0100 ####[facility] [address] [place], [address] BUN/CRE 27.3 RATIO High 10-20 [facility] Comment on above: Performed By: #### L 500.4050, L501.5200, L100.0100 ####[facility] [address] [place], [address] Calcium [Mass/Vol] 9.2 mg/dL Normal 7.6-11.0 [facility] Comment on above: Performed By: #### L 500.4050, L501.5200, L100.0100 ####[facility] [address] [place], [address] Chloride [Moles/Vol] 100 mmol/L Normal 98-108 [facility] Comment on above: Performed By: #### L 500.4050, L501.5200, L100.0100 ####[facility] [address] [place], [address] CO2 [Moles/Vol] 22.1 mmol/L Normal 21.0-32.0 [facility] Comment on above: Performed By: #### L 500.4050, L501.5200, L100.0100 ####[facility] [address] [place], [address] Creatinine [Mass/Vol] 0.61 mg/dL Low 0.70-1.20 [facility] Comment on above: Performed By: #### L 500.4050, L501.5200, L100.0100 ####[facility] [address] [place], [address] ECRCL 45.36 ml/min Low 50-250 [facility] Comment on above: Performed By: #### L 500.4050, L501.5200, L100.0100 ####[facility] [address] [place], [address] GAP 11 Normal 5-15 [facility] Comment on above: Performed By: #### L 500.4050, L501.5200, L100.0100 ####[facility] [address] [place], [address] GFR/1.73 sq M.predicted among non-blacks MDRD (S/P/Bld) [Vol rate/Area] 88 mL/min/{1.73_m2} Normal >60 [facility] Comment on above: Result Comment: mL/m in/1.73m2 CKD-EPI Creatinine Equation (2020) Performed By: #### L 500.4050, L501.5200, L100.0100 ####[facility] [address] [place], [address] Globulin (S) [Mass/Vol] 3.0 g/dL Normal 2.2-4.2 [facility] Comment on above: Performed By: #### L 500.4050, L501.5200, L100.0100 ####[facility] [address] [place], [address] Glucose [Mass/Vol] 101 mg/dL High 70-99 [facility] Comment on above: Performed By: #### L 500.4050, L501.5200, L100.0100 ####[facility] [address] [place], [address] Potassium [Moles/Vol] 3.9 mmol/L Normal 3.3-5.1 [facility] Comment on above: Performed By: #### L 500.4050, L501.5200, L100.0100 ####[facility] [address] [place], [address] Sodium [Moles/Vol] 133 mmol/L Normal 133-145 [facility] Comment on above: Performed By: #### L 500.4050, L501.5200, L100.0100 ####[facility] [address] [place], [address] T PROT 6.9 g/dL Normal 5.9-8.4 [facility] Comment on above: Performed By: #### L 500.4050, L501.5200, L100.0100 ####[facility] [address] [place], [address] Urea nitrogen [Mass/Vol] 17 mg/dL Normal 4-19 [facility] Comment on above: Performed By: #### L 500.4050, L501.5200, L100.0100 ####[facility] [address] [place], [address] Magnesiumon 07-03-2025 Magnesium [Mass/Vol] 2.0 mg/dL Normal 1.5-2.2 [facility] Comment on above: Performed By: #### L 500.4050, L501.5200, L100.0100 ####[facility] [address] [place], [address] Cancer Antigen 125on 025 CA 125 135.0 U/mL High 0.0-38.1 [facility] Comment on above: Result Comment: [facility] Electrochemiluminescence Immunoassay(ECLIA)Values obtained with different assay methods or kits cannotbe used interchangeably. Results cannot be interpreted asabsolute evidence of the presence or absence of malignantdisease.Performed at: [address] [id number] Director: Guero Smyth PhD, Phone: [phone] Performed By: #### L 8240.9670, X040.0062 ####[facility] [address] [place], [address] Absolute lymphocyte countOrd ered By: Carlos Bernal on 06-26-2025 Lymphocytes Auto (Unsp spec) [#/Vol] 0.66 10*3/uL Low 0.83-4.51 [facility] Absolute neutrophil countOrd ered By: Carlos Bernal on 06-26-2025 Neutrophils (Bld) [#/Vol] 5.6 10*3/uL 2.0-7.7 [facility] Automated lymphocyte count a s percentage of total leukocytesOrdered By: Carlos Bernal on 06-26-2025 Lymphocytes/100 WBC Auto (Unsp spec) 9.5 % Low 19-41 [facility] Basophil percentageOrdered B y: Carlos Bernal on 06-26-2025 Basophils/100 WBC (Bld) 0.6 % 0-1 [facility] CBC W/Diff, Automatedon 06-12 Absolute Lymph 0.66 X10 3/uL Low 0.83-4.51 [facility] Comment on above: Performed By: #### L 100.0100 ####[facility] [address] [place], [address] Absolute Neut 5.6 X10 3/uL Normal 2.0-7.7 [facility] Comment on above: Performed By: #### L 100.0100 ####[facility] [address] [place], [address] Basophils/100 WBC (Bld) 0.6 % Normal 0-1 [facility] Comment on above: Performed By: #### L 100.0100 ####[facility] [address] [place], [address] Eosinophils/100 WBC (Bld) 0.7 % Normal 0-5 [facility] Comment on above: Performed By: #### L 100.0100 ####[facility] [address] [place], [address] Erythrocyte distribution width (RBC) [Ratio] 14.1 % Normal 11.6-14.6 [facility] Comment on above: Performed By: #### L 100.0100 ####[facility] [address] [place], [address] Hematocrit (Bld) [Volume fraction] 29.7 % Low 37-47 [facility] Comment on above: Performed By: #### L 100.0100 ####[facility] [address] [place], [address] Hemoglobin (Bld) [Mass/Vol] 9.4 g/dL Low 12.0-15.0 [facility] Comment on above: Performed By: #### L 100.0100 ####[facility] [address] [place], [address] IG% 0.100 Normal 0.0-0.9 [facility] Comment on above: Result Comment: IG% - Immature Granulocytes (promyelocytes, myelocytes andmetamyelocytes) > 1% indicates that a LEFT SHIFT is Present. Performed By: #### L 100.0100 ####[facility] [address] [place], [address] Lymphocytes/100 WBC (Bld) 9.5 % Low 19-41 [facility] Comment on above: Performed By: #### L 100.0100 ####[facility] [address] [place], [address] MCH (RBC) [Entitic mass] 28.0 pg Normal 27.0-32.0 [facility] Comment on above: Performed By: #### L 100.0100 ####[facility] [address] [place], [address] MCHC (RBC) [Mass/Vol] 31.6 g/dL Low 32-36 [facility] Comment on above: Performed By: #### L 100.0100 ####[facility] [address] [place], [address] MCV (RBC) [Entitic vol] 88.4 fL Normal 81-99 [facility] Comment on above: Performed By: #### L 100.0100 ####[facility] [address] [place], [address] Monocytes/100 WBC (Bld) 9.0 % Normal 0-10 [facility] Comment on above: Performed By: #### L 100.0100 ####[facility] [address] [place], [address] Neutrophils/100 WBC (Bld) 80.1 % High 47-70 [facility] Comment on above: Performed By: #### L 100.0100 ####[facility] [address] [place], [address] Nucleated RBC (Bld) [#/Vol] 0 10*3/uL Normal 0-5 [facility] Comment on above: Performed By: #### L 100.0100 ####[facility] [address] [place], [address] Platelet mean volume (Bld) [Entitic vol] 10.7 fL Normal 6.2-12.0 [facility] Comment on above: Performed By: #### L 100.0100 ####[facility] [address] [place], [address] Platelets (Bld) [#/Vol] 297 10*3/uL Normal 150-450 [facility] Comment on above: Performed By: #### L 100.0100 ####[facility] [address] [place], [address] RBC (Bld) [#/Vol] 3.36 10*6/uL Low 4.2-5.4 [facility] Comment on above: Performed By: #### L 100.0100 ####[facility] [address] [place], [address] RDW SD 45.5 fl High 35.1-43.9 [facility] Comment on above: Performed By: #### L 100.0100 ####[facility] [address] [place], [address] WBC (Bld) [#/Vol] 7.0 10*3/uL Normal 4.4-11.0 [facility] Comment on above: Performed By: #### L 100.0100 ####[facility] [address] [place], [address] Comprehensive [facility] Albumin [Mass/Vol] 3.9 g/dL Normal 3.4-4.8 [facility] Comment on above: Performed By: #### L 500.4050, L501.5200, L501.9520 ####[facility] [address] [place], [address] Albumin/Globulin [Mass ratio] 1.1 {ratio} Normal 0.9-2.4 [facility] Comment on above: Performed By: #### L 500.4050, L501.5200, L501.9520 ####[facility] [address] [place], [address] ALK PHOS 75 U/L Normal 35-104 [facility] Comment on above: Performed By: #### L 500.4050, L501.5200, L501.9520 ####[facility] [address] [place], [address] ALT [Catalytic activity/Vol] 14 U/L Normal <=34 [facility] Comment on above: Performed By: #### L 500.4050, L501.5200, L501.9520 ####[facility] [address] [place], [address] AST [Catalytic activity/Vol] 28 U/L Normal <=31 [facility] Comment on above: Performed By: #### L 500.4050, L501.5200, L501.9520 ####[facility] [address] [place], [address] Bilirubin [Mass/Vol] 0.29 mg/dL Normal 0.00-1.30 [facility] Comment on above: Performed By: #### L 500.4050, L501.5200, L501.9520 ####[facility] [address] [place], [address] BUN/CRE 24.7 RATIO High 10-20 [facility] Comment on above: Performed By: #### L 500.4050, L501.5200, L501.9520 ####[facility] [address] [place], [address] Calcium [Mass/Vol] 9.2 mg/dL Normal 7.6-11.0 [facility] Comment on above: Performed By: #### L 500.4050, L501.5200, L501.9520 ####[facility] [address] [place], [address] Chloride [Moles/Vol] 101 mmol/L Normal 98-108 [facility] Comment on above: Performed By: #### L 500.4050, L501.5200, L501.9520 ####[facility] [address] [place], [address] CO2 [Moles/Vol] 22.6 mmol/L Normal 21.0-32.0 [facility] Comment on above: Performed By: #### L 500.4050, L501.5200, L501.9520 ####[facility] [address] [place], [address] Creatinine [Mass/Vol] 0.67 mg/dL Low 0.70-1.20 [facility] Comment on above: Performed By: #### L 500.4050, L501.5200, L501.9520 ####[facility] [address] [place], [address] ECRCL 46.22 ml/min Low 50-250 [facility] Comment on above: Performed By: #### L 500.4050, L501.5200, L501.9520 ####[facility] [address] [place], [address] GAP 12 Normal 5-15 [facility] Comment on above: Performed By: #### L 500.4050, L501.5200, L501.9520 ####[facility] [address] [place], [address] GFR/1.73 sq M.predicted among non-blacks MDRD (S/P/Bld) [Vol rate/Area] 86 mL/min/{1.73_m2} Normal >60 [facility] Comment on above: Result Comment: mL/m in/1.73m2 CKD-EPI Creatinine Equation (2020) Performed By: #### L 500.4050, L501.5200, L501.9520 ####[facility] [address] [place], [address] Globulin (S) [Mass/Vol] 3.5 g/dL Normal 2.2-4.2 [facility] Comment on above: Performed By: #### L 500.4050, L501.5200, L501.9520 ####[facility] [address] [place], [address] Glucose [Mass/Vol] 104 mg/dL High 70-99 [facility] Comment on above: Performed By: #### L 500.4050, L501.5200, L501.9520 ####[facility] [address] [place], [address] Potassium [Moles/Vol] 3.9 mmol/L Normal 3.3-5.1 [facility] Comment on above: Performed By: #### L 500.4050, L501.5200, L501.9520 ####[facility] [address] [place], [address] Sodium [Moles/Vol] 135 mmol/L Normal 133-145 [facility] Comment on above: Performed By: #### L 500.4050, L501.5200, L501.9520 ####[facility] [address] [place], [address] T PROT 7.4 g/dL Normal 5.9-8.4 [facility] Comment on above: Performed By: #### L 500.4050, L501.5200, L501.9520 ####[facility] [address] [place], [address] Urea nitrogen [Mass/Vol] 16 mg/dL Normal 4-19 [facility] Comment on above: Performed By: #### L 500.4050, L501.5200, L501.9520 ####[facility] [address] [place], [address] Eosinophil percentageOrdered By: Carlos Bernal on 06-26-2025 Eosinophils/100 WBC (Bld) 0.7 % 0-5 [facility] Erythrocyte distribution wid th ratioOrdered By: Carlos Dolores on 06-26-2025 Erythrocyte distribution width (RBC) [Ratio] 14.1 % 11.6-14.6 [facility] Erythrocyte distribution wid th standard deviationOrdered By: Carlos Bernal on 06-26-2025 Erythrocyte distribution width (RBC) [Ratio] 45.5 fl High 35.1-43.9 [facility] Ferritinon 06-26-2025 Ferritin [Mass/Vol] 116 ng/mL Normal 22-378 [facility] Comment on above: Performed By: #### L 3100.5000, L503.6550 ####[facility] [address] [place], [address] Hematocrit Auto (Bld) [Volum e fraction]Ordered By: Carlos Bernal on 06-26-2025 Hematocrit (Bld) [Volume fraction] 29.7 % Low 37-47 [facility] Hemoglobin measurementOrdere d By: Carlos Bernal on 06-26-2025 Hemoglobin (Bld) [Mass/Vol] 9.4 g/dL Low 12.0-15.0 [facility] Immature granulocytes/100 WB C Auto (Bld)Ordered By: Carlos Bernal on 06-26-2025 Immature granulocytes/100 WBC (Bld) 0.100 % 0.0-0.9 [facility] Comment on above: IG% - Immature Granu locytes (promyelocytes, myelocytes and metamyelocytes) > 1% indicates that a LEFT SHIFT is Present. Iron+Iron Binding Capacityon 06-26-2025 Iron [Mass/Vol] 46 ug/dL Low 50-170 [facility] Comment on above: Performed By: #### L 503.0106, L503.6030 ####[facility] [address] [place], [address] IRON SATURATION 16.3 Normal 13-59 [facility] Comment on above: Performed By: #### L 503.0106, L503.6030 ####[facility] [address] [place], [address] TIBC 279 ug/dL Normal 250-450 [facility] Comment on above: Performed By: #### L 503.0106, L503.6030 ####[facility] [address] [place], [address] UIBC 233 ug/dL Normal 228-428 [facility] Comment on above: Performed By: #### L 503.0106, L503.6030 ####[facility] [address] [place], [address] MCV (mean corpuscular volume ) determinationOrdered By: Carlos Bernal on 06-26-2025 MCV (RBC) [Entitic vol] 88.4 fL 81-99 [facility] Magnesiumon 06-26-2025 Magnesium [Mass/Vol] 2.1 mg/dL Normal 1.5-2.2 [facility] Comment on above: Performed By: #### L 500.4050, L501.5200, L501.9520 ####[facility] [address] [place], [address] Mean corpuscular hemoglobin (MCH) determinationOrdered By: Carlos Bernal on 06-26-2025 MCH (RBC) [Entitic mass] 28.0 pg 27.0-32.0 [facility] Mean corpuscular hemoglobin concentration (MCHC) determinationOrdered By: Carlos Bernal on 06-26-2025 MCHC (RBC) [Mass/Vol] 31.6 g/dL Low 32-36 [facility] Mean platelet volume determi nationOrdered By: Carlos Bernal on 06-26-2025 Platelet mean volume (Bld) [Entitic vol] 10.7 fL 6.2-12.0 [facility] Monocyte percentageOrdered B y: Carlos Bernal on 06-26-2025 Monocytes/100 WBC (Bld) 9.0 % 0-10 [facility] Neutrophil percentageOrdered By: Carlos Bernal on 06-26-2025 Neutrophils/100 WBC (Bld) 80.1 % High 47-70 [facility] Nucleated red blood cell per centageOrdered By: Carlos Bernal on 06-26-2025 Nucleated RBC/100 WBC (Bld) [Ratio] 0 % 0-5 [facility] Oncology Visit Reporton 06-12 Oncology Visit Report Normal [facility] Platelet countOrdered By: Emily Bernal on 06-26-2025 Platelets (Bld) [#/Vol] 297 10*3/uL 150-450 [facility] RBC Auto (Bld) [#/Vol]Ordere d By: Carlos Bernal on 06-26-2025 RBC (Bld) [#/Vol] 3.36 10*6/uL Low 4.2-5.4 [facility] Thyroid Stim Hormone (TSH)on 06-26-2025 TSH 3.510 uIU/mL Normal 0.300-4.200 [facility] Comment on above: Performed By: #### L 500.4050, L501.5200, L501.9520 ####[facility] [address] [place], [address] Vitamin B12on 06-26-2025 Cobalamin (Vitamin B12) [Mass/Vol] 390 pg/mL Normal 180-914 [facility] Comment on above: Performed By: #### L 503.0106, L503.6030 ####[facility] [address] [place], [place], [address] White blood cell (WBC) count Ordered By: Carlos Bernal on 06-26-2025 WBC (Bld) [#/Vol] 7.0 10*3/uL 4.4-11.0 [facility] CXR for Line Placementon CXR for Line Placement Normal richard [facility] Discharge Instructionon 06-12 Discharge Instruction Normal [facility] ster [facility] MR/POSTOP.ANEon 06-22-2025 MR/POSTOP.ANE Normal [facility] MR/[id number] 06-22-2025 MR/POSTOPAN2 Normal [facility] Operative Reporton Operative Report Normal [facility] MR/PAT.ANEon 06-16-2025 MR/PAT.ANE Normal [facility] Surgery Visit Reporton 06-15 Surgery Visit Report Normal [facility] Breast imaging reportOrdered By: Margaux Turner on 06-09-2025 Study report [facility] Imaging Services [address] [place], [place] [address] SCRN MAMM (CAD)W/CHARLENE BILAT MR#: [id number] Acct: [id number] Name: LUZ CLANCY Rep #: [id number] : 1940 F 85 From: Paula Turner MD PCP: Lela Interiano NP-Lilian Status: REG CLI Study:SCRN MAMM (CAD)W/CHARLENE BILAT Date of Exa m: 06/09/25 Exam# [id number] Ordering Dr: Edward Interiano NP [employer] EXAM: SCRN MAMM (CAD)W/CHARLENE BILAT DATE: 06/09/2025 [...] be mailed to the patient. Reading Location: [id number] CC: MARILEE Interiano ~ Circulation Clerk: Signed [facility] SCRN MAMM (CAD)W/CHARLENE BILATo n 06-09-2025 SCRN MAMM (CAD)W/CHARLENE BILAT Normal [facility] Oncology Visit Reporton 05-13 Oncology Visit Report Normal [facility] Oncology Visit Reporton 05-13 Oncology Visit Report Normal [facility] Anion gap in Serum or Plasma Ordered By: Lela Interiano on 05-29-2025 Anion gap [Moles/Vol] 13 mmol/L -15 [facility] BUN/creatinine ratioOrdered By: Lela Interiano on 05-29-2025 Urea nitrogen/Creatinine [Mass ratio] 14.3 mg/mg 10-20 [facility] Bilirubin, totalOrdered By: Lela Interiano on 05-29-2025 Bilirubin [Mass/Vol] 0.21 mg/dL 0.00-1.30 [facility] Carbon dioxide, total [Moles /volume] in Central venous bloodOrdered By: Lela Interiano on 05-29-2025 CO2 [Moles/Vol] 23.5 mmol/L 21.0-32.0 [facility] Chloride assayOrdered By: Travis Interiano on 05-29-2025 Chloride [Moles/Vol] 99 mmol/L 98-108 [facility] Comprehensive Metabolic Prof ilon 05-29-2025 Albumin [Mass/Vol] 4.1 g/dL Normal 3.4-4.8 [facility] Comment on above: Order Comment: Order Date: 05/29/25Order Info: 0786-1 - CMPOrder Info: 3015-3 - TSH Performed By: #### L 500.4050, L501.9520 ####[facility] [address] [place], [address] Albumin/Globulin [Mass ratio] 1.2 {ratio} Normal 0.9-2.4 [facility] Comment on above: Order Comment: Order Date: 05/29/25Order Info: 0786-1 - CMPOrder Info: 3015-3 - TSH Performed By: #### L 500.4050, L501.9520 ####[facility] [address] [place], [address] ALK PHOS 70 U/L Normal 35-104 [facility] Comment on above: Order Comment: Order Date: 05/29/25Order Info: 0786- - CMPOrder Info: 3015-3 - TSH Performed By: #### L 500.4050, L501.9520 ####[facility] [address] [place], [address] ALT [Catalytic activity/Vol] 19 U/L Normal <=34 [facility] Comment on above: Order Comment: Order Date: 05/29/25Order Info: 0786-1 - CMPOrder Info: 301-3 - TSH Performed By: #### L 500.4050, L501.9520 ####[facility] [address] [place], [address] AST [Catalytic activity/Vol] 28 U/L Normal <=31 [facility] Comment on above: Order Comment: Order Date: 05/29/25Order Info: 0786-1 - CMPOrder Info: 3016-3 - TSH Performed By: #### L 500.4050, L501.9520 ####[facility] [address] [place], [address] Bilirubin [Mass/Vol] 0.21 mg/dL Normal 0.00-1.30 [facility] Comment on above: Order Comment: Order Date: 05/29/25Order Info: 785- - CMPOrder Info: 3015-3 - TSH Performed By: #### L 500.4050, L501.9520 ####[facility] [address] [place], [address] BUN/CRE 14.3 RATIO Normal 10-20 [facility] Comment on above: Order Comment: Order Date: 05/29/25Order Info: 785- - CMPOrder Info: 3015-3 - TSH Performed By: #### L 500.4050, L501.9520 ####[facility] [address] [place], [address] Calcium [Mass/Vol] 9.9 mg/dL Normal 7.6-11.0 [facility] Comment on above: Order Comment: Order Date: 05/29/25Order Info: 785- - CMPOrder Info: 3015-3 - TSH Performed By: #### L 500.4050, L501.9520 ####[facility] [address] [place], [address] Chloride [Moles/Vol] 99 mmol/L Normal 98-108 [facility] Comment on above: Order Comment: Order Date: 05/29/25Order Info: 785-10 - CMPOrder Info: 3015-3 - TSH Performed By: #### L 500.4050, L501.9520 ####[facility] [address] [place], [address] CO2 [Moles/Vol] 23.5 mmol/L Normal 21.0-32.0 [facility] Comment on above: Order Comment: Order Date: 05/29/25Order Info: 07-1 - CMPOrder Info: 6-3 - TSH Performed By: #### L 500.4050, L501.9520 ####[facility] [address] [place], [address] Creatinine [Mass/Vol] 0.66 mg/dL Low 0.70-1.20 [facility] Comment on above: Order Comment: Order Date: 05/29/25Order Info: 0786-1 - CMPOrder Info: 3016-3 - TSH Performed By: #### L 500.4050, L501.9520 ####[facility] [address] [place], [address] GAP 13 Normal 5-15 [facility] Comment on above: Order Comment: Order Date: 05/29/25Order Info: 785-1 - CMPOrder Info: 3015-3 - TSH Performed By: #### L 500.4050, L501.9520 ####[facility] [address] [place], [address] GFR/1.73 sq M.predicted among non-blacks MDRD (S/P/Bld) [Vol rate/Area] 86 mL/min/{1.73_m2} Normal >60 [facility] Comment on above: Order Comment: Order Date: 05/29/25Order Info: 0786-1 - CMPOrder Info: 6-3 - TSH Result Comment: mL/m in/1.73m2 CKD-EPI Creatinine Equation (2020) Performed By: #### L 500.4050, L501.9520 ####[facility] [address] [place], [address] Globulin (S) [Mass/Vol] 3.4 g/dL Normal 2.2-4.2 [facility] Comment on above: Order Comment: Order Date: 05/29/25Order Info: 0786-1 - CMPOrder Info: 6-3 - TSH Performed By: #### L 500.4050, L501.9520 ####[facility] [address] [place], [address] Glucose [Mass/Vol] 98 mg/dL Normal 70-99 [facility] Comment on above: Order Comment: Order Date: 05/29/25Order Info: 0786- - CMPOrder Info: 3015-3 - TSH Performed By: #### L 500.4050, L501.9520 ####[facility] [address] [place], [address] Potassium [Moles/Vol] 4.4 mmol/L Normal 3.3-5.1 [facility] Comment on above: Order Comment: Order Date: 05/29/25Order Info: 0786-1 - CMPOrder Info: 3 - TSH Performed By: #### L 500.4050, L501.9520 ####[facility] [address] [place], [address] Sodium [Moles/Vol] 135 mmol/L Normal 133-145 [facility] Comment on above: Order Comment: Order Date: 05/29/25Order Info: 07 - CMPOrder Info: 3 - TSH Performed By: #### L 500.4050, L501.9520 ####[facility] [address] [place], [address] T PROT 7.5 g/dL Normal 5.9-8.4 [facility] Comment on above: Order Comment: Order Date: 05/29/25Order Info: 0786- - CMPOrder Info: 3015-3 - TSH Performed By: #### L 500.4050, L501.9520 ####[facility] [address] [place], [address] Urea nitrogen [Mass/Vol] 9 mg/dL Normal 4-19 [facility] Comment on above: Order Comment: Order Date: 05/29/25Order Info: 0786- - CMPOrder Info: 3015-3 - TSH Performed By: #### L 500.4050, L501.9520 ####[facility] [address] [place], [address] Glomerular filtration rate ( GFR) estimation/1.73 sq m using serum, plasma, or whole bOrdered By: Lela Interiano on 05-29-2025 GFR/1.73 sq M.predicted among non-blacks MDRD (S/P/Bld) [Vol rate/Area] 86 mL/min/{1.73_m2} >60 [facility] Comment on above: mL/min/1.73m2 CKD-EP I Creatinine Equation (2020) Laboratory - Chemistry and C hemistry - challengeOrdered By: Lela Interiano on 05-29-2025 AST [Catalytic activity/Vol] 28 U/L <32 [facility] Potassium measurement (mass/ volume)Ordered By: [place] Jaydon on 05-29-2025 Potassium (Unsp spec) [Mass/Vol] 4.4 mmol/L 3.3-5.1 [facility] Serum creatinine measurement (mass/volume)Ordered By: Lelalita Interiano on 05-29-2025 Creatinine [Mass/Vol] 0.66 mg/dL Low 0.70-1.20 [facility] Serum globulin measurementOr dered By: Lela Interiano on 05-29-2025 Globulin (S) [Mass/Vol] 3.4 g/dL 2.2-4.2 [facility] Serum glucose measurement (m ass/volume)Ordered By: Lela Interiano on 05-29-2025 Glucose [Mass/Vol] 98 mg/dL 70-99 [facility] Serum or plasma alanine thompson otransferase (ALT) measurementOrdered By: Lelalita Interiano 05-29-2025 ALT [Catalytic activity/Vol] 19 U/L <35 [facility] Serum or plasma albumin charlene urement (mass/volume)Ordered By: Lela Interiano on 05-29-2025 Albumin [Mass/Vol] 4.1 g/dL 3.4-4.8 [facility] Serum or plasma albumin/glob ulin mass ratioOrdered By: Lelalita Interiano 05-29-2025 Albumin/Globulin [Mass ratio] 1.2 {ratio} 0.9-2.4 [facility] Serum or plasma alkaline dameon sphatase measurementOrdered By: Lelalita Interiano 05-29-2025 ALP [Catalytic activity/Vol] 70 U/L 35-104 [facility] Serum or plasma calcium charlene urement (mass/volume)Ordered By: Lela Interiano on 05-29-2025 Calcium [Mass/Vol] 9.9 mg/dL 7.6-11.0 [facility] Serum or plasma urea nitroge n measurement (mass/volume)Ordered By: Lela Interiano on 05-29-2025 Urea nitrogen [Mass/Vol] 9 mg/dL 4-19 [facility] Sodium levelOrdered By: Lela Interiano on 05-29-2025 Sodium [Moles/Vol] 135 mmol/L 133-145 [facility] TSH DL <= 0.005 mIU/L QnOrde red By: Lela Interiano on 05-29-2025 TSH Qn 4.410 uIU/mL High 0.300-4.200 [facility] Thyroid Stim Hormone (TSH)on 05-29-2025 TSH 4.410 uIU/mL High 0.300-4.200 [facility] Comment on above: Order Comment: Order Date: 05/29/25Order Info: 0786-1 - CMPOrder Info: 3016-3 - TSH Performed By: #### L 500.4050, L501.9520 ####[facility] [address] [place], [place], [id number] Total proteinOrdered By: Samanta Interiano on 05-29-2025 Protein [Mass/Vol] 7.5 g/dL 5.9-8.4 [facility] Abdomen/Pelvis WITH Contrast on 05-22-2025 Abdomen/Pelvis WITH Contrast Normal [facility] Absolute lymphocyte countOrd ered By: Brian Negrete on 05-22-2025 Lymphocytes Auto (Unsp spec) [#/Vol] 0.71 10*3/uL Low 0.83-4.51 [facility] Absolute neutrophil countOrd ered By: Brian Negrete on 05-22-2025 Neutrophils (Bld) [#/Vol] 4.4 10*3/uL 2.0-7.7 [facility] Anion gap in Serum or Plasma Ordered By: Brian Negrete on 05-22-2025 Anion gap [Moles/Vol] 20 mmol/L High 5-15 [facility] Automated lymphocyte count a s percentage of total leukocytesOrdered By: Brian Negrete on 05-22-2025 Lymphocytes/100 WBC Auto (Unsp spec) 12.3 % Low 19-41 [facility] BUN/creatinine ratioOrdered By: Brian Negrete on 05-22-2025 Urea nitrogen/Creatinine [Mass ratio] 21.8 mg/mg High 10-20 [facility] Basic Metabolic Profile (BMP )on 05-22-2025 BUN/CRE 21.8 RATIO High 10-20 [facility] Comment on above: Performed By: #### L 100.0100, L500.2500 ####[facility] [address] [place], [address] Calcium [Mass/Vol] 9.4 mg/dL Normal 7.6-11.0 [facility] Comment on above: Performed By: #### L 100.0100, L500.2500 ####[facility] [address] [place], [address] Chloride [Moles/Vol] 99 mmol/L Normal 98-108 [facility] Comment on above: Performed By: #### L 100.0100, L500.2500 ####[facility] [address] [place], [address] CO2 [Moles/Vol] 16.2 mmol/L Low 21.0-32.0 [facility] Comment on above: Performed By: #### L 100.0100, L500.2500 ####[facility] [address] [place], [address] Creatinine [Mass/Vol] 0.80 mg/dL Normal 0.70-1.20 [facility] Comment on above: Performed By: #### L 100.0100, L500.2500 ####[facility] [address] [place], [address] ECRCL 46.69 ml/min Low 50-250 [facility] Comment on above: Performed By: #### L 100.0100, L500.2500 ####[facility] [address] [place], [address] GAP 20 High 5-15 [facility] Comment on above: Performed By: #### L 100.0100, L500.2500 ####[facility] [address] [place], [address] GFR/1.73 sq M.predicted among non-blacks MDRD (S/P/Bld) [Vol rate/Area] 73 mL/min/{1.73_m2} Normal >60 [facility] Comment on above: Result Comment: mL/m in/1.73m2 CKD-EPI Creatinine Equation (2020) Performed By: #### L 100.0100, L500.2500 ####[facility] [address] [place], [address] Glucose [Mass/Vol] 62 mg/dL Low 70-99 [facility] Comment on above: Performed By: #### L 100.0100, L500.2500 ####[facility] [address] [place], [address] Potassium [Moles/Vol] 3.7 mmol/L Normal 3.3-5.1 [facility] Comment on above: Performed By: #### L 100.0100, L500.2500 ####[facility] [address] [place], [address] Sodium [Moles/Vol] 135 mmol/L Normal 133-145 [facility] Comment on above: Performed By: #### L 100.0100, L500.2500 ####[facility] [address] [place], [address] Urea nitrogen [Mass/Vol] 17 mg/dL Normal 4-19 [facility] Comment on above: Performed By: #### L 100.0100, L500.2500 ####[facility] [address] [place], [address] Basophil percentageOrdered B y: Brian Negrete on 05-22-2025 Basophils/100 WBC (Bld) 0.5 % 0-1 [facility] CBC W/Diff, Automatedon 05-12 Absolute Lymph 0.71 X10 3/uL Low 0.83-4.51 [facility] Comment on above: Performed By: #### L 100.0100, L500.2500 ####[facility] [address] [place], [address] Absolute Neut 4.4 X10 3/uL Normal 2.0-7.7 [facility] Comment on above: Performed By: #### L 100.0100, L500.2500 ####[facility] [address] [place], [address] Basophils/100 WBC (Bld) 0.5 % Normal 0-1 [facility] Comment on above: Performed By: #### L 100.0100, L500.2500 ####[facility] [address] [place], [address] Eosinophils/100 WBC (Bld) 1.2 % Normal 0-5 [facility] Comment on above: Performed By: #### L 100.0100, L500.2500 ####[facility] [address] [place], [address] Erythrocyte distribution width (RBC) [Ratio] 13.6 % Normal 11.6-14.6 [facility] Comment on above: Performed By: #### L 100.0100, L500.2500 ####[facility] [address] [place], [address] Hematocrit (Bld) [Volume fraction] 32.2 % Low 37-47 [facility] Comment on above: Performed By: #### L 100.0100, L500.2500 ####[facility] [address] [place], [address] Hemoglobin (Bld) [Mass/Vol] 10.4 g/dL Low 12.0-15.0 [facility] Comment on above: Performed By: #### L 100.0100, L500.2500 ####[facility] [address] [place], [address] IG% 0.300 Normal 0.0-0.9 [facility] Comment on above: Result Comment: IG% - Immature Granulocytes (promyelocytes, myelocytes andmetamyelocytes) > 1% indicates that a LEFT SHIFT is Present. Performed By: #### L 100.0100, L500.2500 ####[facility] [address] [place], [address] Lymphocytes/100 WBC (Bld) 12.3 % Low 19-41 [facility] Comment on above: Performed By: #### L 100.0100, L500.2500 ####[facility] [address] [place], [address] MCH (RBC) [Entitic mass] 28.1 pg Normal 27.0-32.0 [facility] Comment on above: Performed By: #### L 100.0100, L500.2500 ####[facility] [address] [place], [address] MCHC (RBC) [Mass/Vol] 32.3 g/dL Normal 32-36 [facility] Comment on above: Performed By: #### L 100.0100, L500.2500 ####[facility] [address] [place], [address] MCV (RBC) [Entitic vol] 87.0 fL Normal 81-99 [facility] Comment on above: Performed By: #### L 100.0100, L500.2500 ####[facility] [address] [place], [address] Monocytes/100 WBC (Bld) 10.2 % High 0-10 [facility] Comment on above: Performed By: #### L 100.0100, L500.2500 ####[facility] [address] [place], [address] Neutrophils/100 WBC (Bld) 75.5 % High 47-70 [facility] Comment on above: Performed By: #### L 100.0100, L500.2500 ####[facility] [address] [place], [address] Nucleated RBC (Bld) [#/Vol] 0 10*3/uL Normal 0-5 [facility] Comment on above: Performed By: #### L 100.0100, L500.2500 ####[facility] [address] [place], [address] Platelet mean volume (Bld) [Entitic vol] 11.2 fL Normal 6.2-12.0 [facility] Comment on above: Performed By: #### L 100.0100, L500.2500 ####[facility] [address] [place], [address] Platelets (Bld) [#/Vol] 323 10*3/uL Normal 150-450 [facility] Comment on above: Performed By: #### L 100.0100, L500.2500 ####[facility] [address] [place], [address] RBC (Bld) [#/Vol] 3.70 10*6/uL Low 4.2-5.4 [facility] Comment on above: Performed By: #### L 100.0100, L500.2500 ####[facility] [address] [place], [address] RDW SD 43.3 fl Normal 35.1-43.9 [facility] Comment on above: Performed By: #### L 100.0100, L500.2500 ####[facility] [address] [place], [place], [address] WBC (Bld) [#/Vol] 5.8 10*3/uL Normal 4.4-11.0 [facility] Comment on above: Performed By: #### L 100.0100, L500.2500 ####[facility] [address] [place], [place], [address] Carbon dioxide, total [Moles /volume] in Central venous bloodOrdered By: Brian Negrete on 05-22-2025 CO2 [Moles/Vol] 16.2 mmol/L Low 21.0-32.0 [facility] Chloride assayOrdered By: Brock Negrete on 05-22-2025 Chloride [Moles/Vol] 99 mmol/L 98-108 [facility] Discharge Instructionon 05-12 Discharge Instruction Normal [facility] Electrocardiogram reportOrde red By: Ashley Dennison on 05-22-2025 EKG study [facility] Cardiovascular Services [address] [place] [address] 12 Lead EKG 05/18/25 2146 MR#: [id number] Acct: [id number] Name: LUZ CLANCY Rep #:[id number] : 1940 85 From: Ashley Dennison MD [...] Abnormal ECG Confirmed by ASHLEY DENNISON ([id number]), features editor PABLO MOSS ([id number]) on 05/22/2025 8:07:05 AM Referred By: Confirmed By: ASHLEY DENNISON 05/22/25 0807 Date _ Ashley Dennison MD CC: MARILEE Interiano; Dr. Jeffrey Mcclain DO; Dr. Joseph Lindsey MD ~ Signed [facility] Other Phone: Eosinophil percentageOrdered By: Brian Negrete on 05-22-2025 Eosinophils/100 WBC (Bld) 1.2 % 0-5 [facility] Erythrocyte distribution wid th ratioOrdered By: Brian Negrete on 05-22-2025 Erythrocyte distribution width (RBC) [Ratio] 13.6 % 11.6-14.6 [facility] Erythrocyte distribution wid th standard deviationOrdered By: Brian Negrete on 05-22-2025 Erythrocyte distribution width (RBC) [Ratio] 43.3 fl 35.1-43.9 [facility] Glomerular filtration rate ( GFR) estimation/1.73 sq m using serum, plasma, or whole bOrdered By: Brian Negrete on 05-22-2025 GFR/1.73 sq M.predicted among non-blacks MDRD (S/P/Bld) [Vol rate/Area] 73 mL/min/{1.73_m2} >60 [facility] Comment on above: mL/min/1.73m2 CKD-EP I Creatinine Equation (2020) Hematocrit Auto (Bld) [Volum e fraction]Ordered By: Brian Negrete on 05-22-2025 Hematocrit (Bld) [Volume fraction] 32.2 % Low 37-47 [facility] Hemoglobin measurementOrdere d By: Brian Negrete on 05-22-2025 Hemoglobin (Bld) [Mass/Vol] 10.4 g/dL Low 12.0-15.0 [facility] Immature granulocytes/100 WB C Auto (Bld)Ordered By: Brian Negrete on 05-22-2025 Immature granulocytes/100 WBC (Bld) 0.300 % 0.0-0.9 [facility] Comment on above: IG% - Immature Granu locytes (promyelocytes, myelocytes and metamyelocytes) > 1% indicates that a LEFT SHIFT is Present. MCV (mean corpuscular volume ) determinationOrdered By: Brian Negrete on 05-22-2025 MCV (RBC) [Entitic vol] 87.0 fL 81-99 [facility] Mean corpuscular hemoglobin (MCH) determinationOrdered By: Brian Negrete on 05-22-2025 MCH (RBC) [Entitic mass] 28.1 pg 27.0-32.0 [facility] Mean corpuscular hemoglobin concentration (MCHC) determinationOrdered By: Brian Negrete on 05-22-2025 MCHC (RBC) [Mass/Vol] 32.3 g/dL 32-36 [facility] Mean platelet volume determi nationOrdered By: Brian Negrete on 05-22-2025 Platelet mean volume (Bld) [Entitic vol] 11.2 fL 6.2-12.0 [facility] Monocyte percentageOrdered B y: Brian Negrete on 05-22-2025 Monocytes/100 WBC (Bld) 10.2 % High 0-10 [facility] Neutrophil percentageOrdered By: Brian Negrete on 05-22-2025 Neutrophils/100 WBC (Bld) 75.5 % High 47-70 [facility] Nucleated red blood cell per centageOrdered By: Brian Negrete on 05-22-2025 Nucleated RBC/100 WBC (Bld) [Ratio] 0 % 0-5 [facility] Platelet countOrdered By: Brock Negrete on 05-22-2025 Platelets (Bld) [#/Vol] 323 10*3/uL 150-450 [facility] Potassium measurement (mass/ volume)Ordered By: Brian Negrete on 05-22-2025 Potassium (Unsp spec) [Mass/Vol] 3.7 mmol/L 3.3-5.1 [facility] RBC Auto (Bld) [#/Vol]Ordere d By: Brian Negrete on 05-22-2025 RBC (Bld) [#/Vol] 3.70 10*6/uL Low 4.2-5.4 [facility] Serum creatinine measurement (mass/volume)Ordered By: Brian Negrete on 05-22-2025 Creatinine [Mass/Vol] 0.80 mg/dL 0.70-1.20 [facility] Serum glucose measurement (m ass/volume)Ordered By: Brian Negrete on 05-22-2025 Glucose [Mass/Vol] 62 mg/dL Low 70-99 [facility] Serum or plasma calcium charlene urement (mass/volume)Ordered By: Brian Negrete on 05-22-2025 Calcium [Mass/Vol] 9.4 mg/dL 7.6-11.0 [facility] Serum or plasma urea nitroge n measurement (mass/volume)Ordered By: Brian Negrete on 05-22-2025 Urea nitrogen [Mass/Vol] 17 mg/dL 4-19 [facility] Sodium levelOrdered By: Paul Negrete on 05-22-2025 Sodium [Moles/Vol] 135 mmol/L 133-145 [facility] White blood cell (WBC) count Ordered By: Brian Negrete on 05-22-2025 WBC (Bld) [#/Vol] 5.8 10*3/uL 4.4-11.0 [facility] [employer] Decub and/or Erecton 05-21-2025 [employer] Decub and/or Erect Normal [facility] Basic Metabolic Profile (BMP )on 05-21-2025 BUN/CRE 17.5 RATIO Normal 10-20 [facility] Comment on above: Performed By: #### L 500.2500, L100.0100 ####[facility] [address] [place], [address] Calcium [Mass/Vol] 9.1 mg/dL Normal 7.6-11.0 [facility] Comment on above: Performed By: #### L 500.2500, L100.0100 ####[facility] [address] [place], [address] Chloride [Moles/Vol] 100 mmol/L Normal 98-108 [facility] Comment on above: Performed By: #### L 500.2500, L100.0100 ####[facility] [address] [place], [address] CO2 [Moles/Vol] 18.9 mmol/L Low 21.0-32.0 [facility] Comment on above: Performed By: #### L 500.2500, L100.0100 ####[facility] [address] [place], [address] Creatinine [Mass/Vol] 0.73 mg/dL Normal 0.70-1.20 [facility] Comment on above: Performed By: #### L 500.2500, L100.0100 ####[facility] [address] [place], [address] ECRCL 46.53 ml/min Low 50-250 [facility] Comment on above: Performed By: #### L 500.2500, L100.0100 ####[facility] [address] [place], [address] GAP 15 Normal 5-15 [facility] Comment on above: Performed By: #### L 500.2500, L100.0100 ####[facility] [address] [place], [address] GFR/1.73 sq M.predicted among non-blacks MDRD (S/P/Bld) [Vol rate/Area] 81 mL/min/{1.73_m2} Normal >60 [facility] Comment on above: Result Comment: mL/m in/1.73m2 CKD-EPI Creatinine Equation (2020) Performed By: #### L 500.2500, L100.0100 ####[facility] [address] [place], [address] Glucose [Mass/Vol] 91 mg/dL Normal 70-99 [facility] Comment on above: Performed By: #### L 500.2500, L100.0100 ####[facility] [address] [place], [address] Potassium [Moles/Vol] 3.1 mmol/L Low 3.3-5.1 [facility] Comment on above: Performed By: #### L 500.2500, L100.0100 ####[facility] [address] [place], [address] Sodium [Moles/Vol] 134 mmol/L Normal 133-145 [facility] Comment on above: Performed By: #### L 500.2500, L100.0100 ####[facility] [address] [place], [address] Urea nitrogen [Mass/Vol] 13 mg/dL Normal 4-19 [facility] Comment on above: Performed By: #### L 500.2500, L100.0100 ####[facility] [address] [place], [address] CBC W/Diff, Automatedon 08-1 0-2025 Absolute Lymph 0.74 X10 3/uL Low 0.83-4.51 [facility] Comment on above: Performed By: #### L 500.2500, L100.0100 ####[facility] [address] [place], [address] Absolute Neut 3.8 X10 3/uL Normal 2.0-7.7 [facility] Comment on above: Performed By: #### L 500.2500, L100.0100 ####[facility] [address] [place], [address] Basophils/100 WBC (Bld) 0.2 % Normal 0-1 [facility] Comment on above: Performed By: #### L 500.2500, L100.0100 ####[facility] [address] [place], [address] Eosinophils/100 WBC (Bld) 1.1 % Normal 0-5 [facility] Comment on above: Performed By: #### L 500.2500, L100.0100 ####[facility] [address] [place], [address] Erythrocyte distribution width (RBC) [Ratio] 13.6 % Normal 11.6-14.6 [facility] Comment on above: Performed By: #### L 500.2500, L100.0100 ####[facility] [address] [place], [address] Hematocrit (Bld) [Volume fraction] 30.9 % Low 37-47 [facility] Comment on above: Performed By: #### L 500.2500, L100.0100 ####[facility] [address] [place], [address] Hemoglobin (Bld) [Mass/Vol] 10.1 g/dL Low 12.0-15.0 [facility] Comment on above: Performed By: #### L 500.2500, L100.0100 ####[facility] [address] [place], [address] IG% 0.400 Normal 0.0-0.9 [facility] Comment on above: Result Comment: IG% - Immature Granulocytes (promyelocytes, myelocytes andmetamyelocytes) > 1% indicates that a LEFT SHIFT is Present. Performed By: #### L 500.2500, L100.0100 ####[facility] [address] [place], [address] Lymphocytes/100 WBC (Bld) 13.8 % Low 19-41 [facility] Comment on above: Performed By: #### L 500.2500, L100.0100 ####[facility] [address] [place], [address] MCH (RBC) [Entitic mass] 28.2 pg Normal 27.0-32.0 [facility] Comment on above: Performed By: #### L 500.2500, L100.0100 ####[facility] [address] [place], [address] MCHC (RBC) [Mass/Vol] 32.7 g/dL Normal 32-36 [facility] Comment on above: Performed By: #### L 500.2500, L100.0100 ####[facility] [address] [place], [address] MCV (RBC) [Entitic vol] 86.3 fL Normal 81-99 [facility] Comment on above: Performed By: #### L 500.2500, L100.0100 ####[facility] [address] [place], [address] Monocytes/100 WBC (Bld) 13.2 % High 0-10 [facility] Comment on above: Performed By: #### L 500.2500, L100.0100 ####[facility] [address] [place], [address] Neutrophils/100 WBC (Bld) 71.3 % High 47-70 [facility] Comment on above: Performed By: #### L 500.2500, L100.0100 ####[facility] [address] [place], [address] Nucleated RBC (Bld) [#/Vol] 0 10*3/uL Normal 0-5 [facility] Comment on above: Performed By: #### L 500.2500, L100.0100 ####[facility] [address] [place], [address] Platelet mean volume (Bld) [Entitic vol] 11.5 fL Normal 6.2-12.0 [facility] Comment on above: Performed By: #### L 500.2500, L100.0100 ####[facility] [address] [place], [address] Platelets (Bld) [#/Vol] 305 10*3/uL Normal 150-450 [facility] Comment on above: Performed By: #### L 500.2500, L100.0100 ####[facility] [address] [place], [address] RBC (Bld) [#/Vol] 3.58 10*6/uL Low 4.2-5.4 [facility] Comment on above: Performed By: #### L 500.2500, L100.0100 ####[facility] [address] [place], [address] RDW SD 42.6 fl Normal 35.1-43.9 [facility] Comment on above: Performed By: #### L 500.2500, L100.0100 ####[facility] [address] [place], [address] WBC (Bld) [#/Vol] 5.4 10*3/uL Normal 4.4-11.0 [facility] Comment on above: Performed By: #### L 500.2500, L100.0100 ####[facility] [address] [place], [address] Magnesiumon 05-21-2025 Magnesium [Mass/Vol] 1.9 mg/dL Normal 1.5-2.2 [facility] Comment on above: Performed By: #### L 501.5200 ####[facility] [address] [place], [address] Magnesium measurement (mass/ volume)Ordered By: Geovanna Nino on 05-21-2025 Magnesium (Unsp spec) [Mass/Vol] 1.9 mg/dL 1.5-2.2 [facility] Abdomen Single View (Portabl e)on 05-20-2025 Abdomen Single View (Portable) Normal [facility] Basic Metabolic Profile (BMP )on 05-20-2025 BUN/CRE 21.5 RATIO High 10-20 [facility] Comment on above: Performed By: #### L 100.0100, L501.5200, L500.2500, L501.2300 ####[facility] [address] [place], [address] Calcium [Mass/Vol] 8.8 mg/dL Normal 7.6-11.0 [facility] Comment on above: Performed By: #### L 100.0100, L501.5200, L500.2500, L501.2300 ####[facility] [address] [place], [address] Chloride [Moles/Vol] 103 mmol/L Normal 98-108 [facility] Comment on above: Performed By: #### L 100.0100, L501.5200, L500.2500, L501.2300 ####[facility] [address] [place], [address] CO2 [Moles/Vol] 17.7 mmol/L Low 21.0-32.0 [facility] Comment on above: Performed By: #### L 100.0100, L501.5200, L500.2500, L501.2300 ####[facility] [address] [place], [address] Creatinine [Mass/Vol] 0.79 mg/dL Normal 0.70-1.20 [facility] [facility] Comment on above: Performed By: #### L 100.0100, L501.5200, L500.2500, L501.2300 ####[facility] [address] [place], [address] ECRCL 45.86 ml/min Low 50-250 [facility] Comment on above: Performed By: #### L 100.0100, L501.5200, L500.2500, L501.2300 ####[facility] [address] [place], [address] GAP 14 Normal 5-15 [facility] Comment on above: Performed By: #### L 100.0100, L501.5200, L500.2500, L501.2300 ####[facility] [address] [place], [address] GFR/1.73 sq M.predicted among non-blacks MDRD (S/P/Bld) [Vol rate/Area] 73 mL/min/{1.73_m2} Normal >60 [facility] Comment on above: Result Comment: mL/m in/1.73m2 CKD-EPI Creatinine Equation (2020) Performed By: #### L 100.0100, L501.5200, L500.2500, L501.2300 ####[facility] [address] [place], [address] Glucose [Mass/Vol] 77 mg/dL Normal 70-99 [facility] Comment on above: Performed By: #### L 100.0100, L501.5200, L500.2500, L501.2300 ####[facility] [address] [place], [address] Potassium [Moles/Vol] 3.5 mmol/L Normal 3.3-5.1 [facility] Comment on above: Performed By: #### L 100.0100, L501.5200, L500.2500, L501.2300 ####[facility] [address] [place], [address] Sodium [Moles/Vol] 135 mmol/L Normal 133-145 [facility] Comment on above: Performed By: #### L 100.0100, L501.5200, L500.2500, L501.2300 ####[facility] [address] [place], [address] Urea nitrogen [Mass/Vol] 17 mg/dL Normal 4-19 [facility] Comment on above: Performed By: #### L 100.0100, L501.5200, L500.2500, L501.2300 ####[facility] [address] [place], [address] CBC W/Diff, Automatedon 08-0 9-2024 Absolute Lymph 0.62 X10 3/uL Low 0.83-4.51 [facility] Comment on above: Performed By: #### L 100.0100, L501.5200, L500.2500, L501.2300 ####[facility] [address] [place], [address] Absolute Neut 3.0 X10 3/uL Normal 2.0-7.7 [facility] Comment on above: Performed By: #### L 100.0100, L501.5200, L500.2500, L501.2300 ####[facility] [address] [place], [address] Basophils/100 WBC (Bld) 0.7 % Normal 0-1 [facility] Comment on above: Performed By: #### L 100.0100, L501.5200, L500.2500, L501.2300 ####[facility] [address] [place], [address] Eosinophils/100 WBC (Bld) 2.0 % Normal 0-5 [facility] Comment on above: Performed By: #### L 100.0100, L501.5200, L500.2500, L501.2300 ####[facility] [address] [place], [address] Erythrocyte distribution width (RBC) [Ratio] 14.0 % Normal 11.6-14.6 [facility] Comment on above: Performed By: #### L 100.0100, L501.5200, L500.2500, L501.2300 ####[facility] [address] [place], [address] Hematocrit (Bld) [Volume fraction] 29.6 % Low 37-47 [facility] Comment on above: Performed By: #### L 100.0100, L501.5200, L500.2500, L501.2300 ####[facility] [address] [place], [address] Hemoglobin (Bld) [Mass/Vol] 9.4 g/dL Low 12.0-15.0 [facility] Comment on above: Performed By: #### L 100.0100, L501.5200, L500.2500, L501.2300 ####[facility] [address] [place], [address] IG% 0.200 Normal 0.0-0.9 [facility] Comment on above: Result Comment: IG% - Immature Granulocytes (promyelocytes, myelocytes andmetamyelocytes) > 1% indicates that a LEFT SHIFT is Present. Performed By: #### L 100.0100, L501.5200, L500.2500, L501.2300 ####[facility] [address] [place], [address] Lymphocytes/100 WBC (Bld) 13.8 % Low 19-41 [facility] Comment on above: Performed By: #### L 100.0100, L501.5200, L500.2500, L501.2300 ####[facility] [address] [place], [address] MCH (RBC) [Entitic mass] 28.0 pg Normal 27.0-32.0 [facility] Comment on above: Performed By: #### L 100.0100, L501.5200, L500.2500, L501.2300 ####[facility] [address] [place], [address] MCHC (RBC) [Mass/Vol] 31.8 g/dL Low 32-36 [facility] Comment on above: Performed By: #### L 100.0100, L501.5200, L500.2500, L501.2300 ####[facility] [address] [place], [address] MCV (RBC) [Entitic vol] 88.1 fL Normal 81-99 [facility] Comment on above: Performed By: #### L 100.0100, L501.5200, L500.2500, L501.2300 ####[facility] [address] [place], [address] Monocytes/100 WBC (Bld) 16.2 % High 0-10 [facility] Comment on above: Performed By: #### L 100.0100, L501.5200, L500.2500, L501.2300 ####[facility] [address] [place], [address] Neutrophils/100 WBC (Bld) 67.1 % Normal 47-70 [facility] Comment on above: Performed By: #### L 100.0100, L501.5200, L500.2500, L501.2300 ####[facility] [address] [place], [address] Nucleated RBC (Bld) [#/Vol] 0 10*3/uL Normal 0-5 [facility] Comment on above: Performed By: #### L 100.0100, L501.5200, L500.2500, L501.2300 ####[facility] [address] [place], [address] Platelet mean volume (Bld) [Entitic vol] 11.0 fL Normal 6.2-12.0 [facility] Comment on above: Performed By: #### L 100.0100, L501.5200, L500.2500, L501.2300 ####[facility] [address] [place], [address] Platelets (Bld) [#/Vol] 300 10*3/uL Normal 150-450 [facility] Comment on above: Performed By: #### L 100.0100, L501.5200, L500.2500, L501.2300 ####[facility] [address] [place], [address] RBC (Bld) [#/Vol] 3.36 10*6/uL Low 4.2-5.4 [facility] Comment on above: Performed By: #### L 100.0100, L501.5200, L500.2500, L501.2300 ####[facility] [address] [place], [address] RDW SD 45.1 fl High 35.1-43.9 [facility] Comment on above: Performed By: #### L 100.0100, L501.5200, L500.2500, L501.2300 ####[facility] [address] [place], [address] WBC (Bld) [#/Vol] 4.5 10*3/uL Normal 4.4-11.0 [facility] Comment on above: Performed By: #### L 100.0100, L501.5200, L500.2500, L501.2300 ####[facility] [address] [place], [address] Magnesiumon 05-20-2025 Magnesium [Mass/Vol] 2.0 mg/dL Normal 1.5-2.2 [facility] Comment on above: Performed By: #### L 100.0100, L501.5200, L500.2500, L501.2300 ####[facility] [address] [place], [address] Phosphoruson 05-20-2025 Phosphate [Mass/Vol] 3.0 mg/dL Normal 2.7-4.5 [facility] Comment on above: Performed By: #### L 100.0100, L501.5200, L500.2500, L501.2300 ####[facility] [address] [place], [address] Abdomen Single View (Portabl e)on 05-19-2025 Abdomen Single View (Portable) Normal [facility] Absolute lymphocyte countOrd ered By: Najma Cates on 05-19-2025 Lymphocytes Auto (Unsp spec) [#/Vol] 0.42 10*3/uL Low 0.83-4.51 [facility] Absolute neutrophil countOrd ered By: Darryn on 05-19-2025 Neutrophils (Bld) [#/Vol] 5.0 10*3/uL 2.0-7.7 [facility] Anion gap in Serum or Plasma Ordered By: Darryn on 05-19-2025 Anion gap [Moles/Vol] 12 mmol/L 5-15 [facility] Automated lymphocyte count a s percentage of total leukocytesOrdered By: Darryn on 05-19-2025 Lymphocytes/100 WBC Auto (Unsp spec) 6.6 % Low 19-41 [facility] BUN/creatinine ratioOrdered By: Darryn on 05-19-2025 Urea nitrogen/Creatinine [Mass ratio] 22.8 mg/mg High 10-20 [facility] Basophil percentageOrdered B y: Darryn on 05-19-2025 Basophils/100 WBC (Bld) 0.5 % 0-1 [facility] Bilirubin, totalOrdered By: Najma Darryn on 05-19-2025 Bilirubin [Mass/Vol] 0.53 mg/dL 0.00-1.30 [facility] CBC W/Diff, Automatedon Absolute Lymph 0.42 X10 3/uL Low 0.83-4.51 [facility] Comment on above: Performed By: #### L 100.0100, L500.4050 ####[facility] [address] [place], [address] Absolute Neut 5.0 X10 3/uL Normal 2.0-7.7 [facility] Comment on above: Performed By: #### L 100.0100, L500.4050 ####[facility] [address] [place], [address] Basophils/100 WBC (Bld) 0.5 % Normal 0-1 [facility] Comment on above: Performed By: #### L 100.0100, L500.4050 ####[facility] [address] [place], [address] Eosinophils/100 WBC (Bld) 0.6 % Normal 0-5 [facility] Comment on above: Performed By: #### L 100.0100, L500.4050 ####[facility] [address] [place], [address] Erythrocyte distribution width (RBC) [Ratio] 13.7 % Normal 11.6-14.6 [facility] Comment on above: Performed By: #### L 100.0100, L500.4050 ####[facility] [address] [place], [address] Hematocrit (Bld) [Volume fraction] 32.1 % Low 37-47 [facility] Comment on above: Performed By: #### L 100.0100, L500.4050 ####[facility] [address] [place], [address] Hemoglobin (Bld) [Mass/Vol] 10.3 g/dL Low 12.0-15.0 [facility] Comment on above: Performed By: #### L 100.0100, L500.4050 ####[facility] [address] [place], [address] IG% 0.200 Normal 0.0-0.9 [facility] Comment on above: Result Comment: IG% - Immature Granulocytes (promyelocytes, myelocytes andmetamyelocytes) > 1% indicates that a LEFT SHIFT is Present. Performed By: #### L 100.0100, L500.4050 ####[facility] [address] [place], [address] Lymphocytes/100 WBC (Bld) 6.6 % Low 19-41 [facility] Comment on above: Performed By: #### L 100.0100, L500.4050 ####[facility] [address] [place], [address] MCH (RBC) [Entitic mass] 28.0 pg Normal 27.0-32.0 [facility] Comment on above: Performed By: #### L 100.0100, L500.4050 ####[facility] [address] [place], [address] MCHC (RBC) [Mass/Vol] 32.1 g/dL Normal 32-36 [facility] Comment on above: Performed By: #### L 100.0100, L500.4050 ####[facility] [address] [place], [address] MCV (RBC) [Entitic vol] 87.2 fL Normal 81-99 [facility] Comment on above: Performed By: #### L 100.0100, L500.4050 ####[facility] [address] [place], [address] Monocytes/100 WBC (Bld) 12.8 % High 0-10 [facility] Comment on above: Performed By: #### L 100.0100, L500.4050 ####[facility] [address] [place], [address] Neutrophils/100 WBC (Bld) 79.3 % High 47-70 [facility] Comment on above: Performed By: #### L 100.0100, L500.4050 ####[facility] [address] [place], [address] Nucleated RBC (Bld) [#/Vol] 0 10*3/uL Normal 0-5 [facility] Comment on above: Performed By: #### L 100.0100, L500.4050 ####[facility] [address] [place], [address] Platelet mean volume (Bld) [Entitic vol] 11.7 fL Normal 6.2-12.0 [facility] Comment on above: Performed By: #### L 100.0100, L500.4050 ####[facility] [address] [place], [address] Platelets (Bld) [#/Vol] 334 10*3/uL Normal 150-450 [facility] Comment on above: Performed By: #### L 100.0100, L500.4050 ####[facility] [address] [place], [address] RBC (Bld) [#/Vol] 3.68 10*6/uL Low 4.2-5.4 [facility] Comment on above: Performed By: #### L 100.0100, L500.4050 ####[facility] [address] [place], [address] RDW SD 43.3 fl Normal 35.1-43.9 [facility] Comment on above: Performed By: #### L 100.0100, L500.4050 ####[facility] [address] [place], [address] WBC (Bld) [#/Vol] 6.3 10*3/uL Normal 4.4-11.0 [facility] Comment on above: Performed By: #### L 100.0100, L500.4050 ####[facility] [address] [place], [address] Carbon dioxide, total [Moles /volume] in Central venous bloodOrdered By: Najma Cates on 05-19-2025 CO2 [Moles/Vol] 20.0 mmol/L Low 21.0-32.0 [facility] Chloride assayOrdered By: Lucia Cates on 05-19-2025 Chloride [Moles/Vol] 101 mmol/L 98-108 [facility] Comprehensive Metabolic Prof ilon 05-19-2025 Albumin [Mass/Vol] 3.6 g/dL Normal 3.4-4.8 [facility] Comment on above: Performed By: #### L 100.0100, L500.4050 ####[facility] [address] [place], [address] Albumin/Globulin [Mass ratio] 1.2 {ratio} Normal 0.9-2.4 [facility] Comment on above: Performed By: #### L 100.0100, L500.4050 ####[facility] [address] [place], [address] ALK PHOS 74 U/L Normal 35-104 [facility] Comment on above: Performed By: #### L 100.0100, L500.4050 ####[facility] [address] [place], [address] ALT [Catalytic activity/Vol] 10 U/L Normal <=34 [facility] Comment on above: Performed By: #### L 100.0100, L500.4050 ####[facility] [address] [place], [address] AST [Catalytic activity/Vol] 26 U/L Normal <=31 [facility] Comment on above: Performed By: #### L 100.0100, L500.4050 ####[facility] [address] [place], [address] Bilirubin [Mass/Vol] 0.53 mg/dL Normal 0.00-1.30 [facility] Comment on above: Performed By: #### L 100.0100, L500.4050 ####[facility] [address] [place], [address] BUN/CRE 22.8 RATIO High 10-20 [facility] Comment on above: Performed By: #### L 100.0100, L500.4050 ####[facility] [address] [place], [address] Calcium [Mass/Vol] 8.9 mg/dL Normal 7.6-11.0 [facility] Comment on above: Performed By: #### L 100.0100, L500.4050 ####[facility] [address] [place], [address] Chloride [Moles/Vol] 101 mmol/L Normal 98-108 [facility] Comment on above: Performed By: #### L 100.0100, L500.4050 ####[facility] [address] [place], [address] CO2 [Moles/Vol] 20.0 mmol/L Low 21.0-32.0 [facility] Comment on above: Performed By: #### L 100.0100, L500.4050 ####[facility] [address] [place], [address] Creatinine [Mass/Vol] 0.60 mg/dL Low 0.70-1.20 [facility] Comment on above: Performed By: #### L 100.0100, L500.4050 ####[facility] [address] [place], [address] ECRCL 47.10 ml/min Low 50-250 [facility] Comment on above: Performed By: #### L 100.0100, L500.4050 ####[facility] [address] [place], [address] GAP 12 Normal 5-15 [facility] Comment on above: Performed By: #### L 100.0100, L500.4050 ####[facility] [address] [place], [address] GFR/1.73 sq M.predicted among non-blacks MDRD (S/P/Bld) [Vol rate/Area] 88 mL/min/{1.73_m2} Normal >60 [facility] Comment on above: Result Comment: mL/m in/1.73m2 CKD-EPI Creatinine Equation (2020) Performed By: #### L 100.0100, L500.4050 ####[facility] [address] [place], [address] Globulin (S) [Mass/Vol] 3.0 g/dL Normal 2.2-4.2 [facility] Comment on above: Performed By: #### L 100.0100, L500.4050 ####[facility] [address] [place], [address] Glucose [Mass/Vol] 115 mg/dL High 70-99 [facility] Comment on above: Performed By: #### L 100.0100, L500.4050 ####[facility] [address] [place], [address] Potassium [Moles/Vol] 3.8 mmol/L Normal 3.3-5.1 [facility] Comment on above: Performed By: #### L 100.0100, L500.4050 ####[facility] [address] [place], [address] Sodium [Moles/Vol] 133 mmol/L Normal 133-145 [facility] Comment on above: Performed By: #### L 100.0100, L500.4050 ####[facility] [address] [place], [address] T PROT 6.6 g/dL Normal 5.9-8.4 [facility] Comment on above: Performed By: #### L 100.0100, L500.4050 ####[facility] [address] [place], [address] Urea nitrogen [Mass/Vol] 14 mg/dL Normal 4-19 [facility] Comment on above: Performed By: #### L 100.0100, L500.4050 ####[facility] [address] [place], [address] Consultation - Surgicalon Consultation - Surgical Normal [facility] Eosinophil percentageOrdered By: Najma Cates on 05-19-2025 Eosinophils/100 WBC (Bld) 0.6 % 0-5 [facility] Erythrocyte distribution wid th ratioOrdered By: [facility] Darryn on 05-19-2025 Erythrocyte distribution width (RBC) [Ratio] 13.7 % 11.6-14.6 [facility] Erythrocyte distribution wid th standard deviationOrdered By: [facility] Darryn on 05-19-2025 Erythrocyte distribution width (RBC) [Ratio] 43.3 fl 35.1-43.9 [facility] Glomerular filtration rate ( GFR) estimation/1.73 sq m using serum, plasma, or whole bOrdered By: Najma Cates on 05-19-2025 GFR/1.73 sq M.predicted among non-blacks MDRD (S/P/Bld) [Vol rate/Area] 88 mL/min/{1.73_m2} >60 [facility] Comment on above: mL/min/1.73m2 CKD-EP I Creatinine Equation (2020) Hematocrit Auto (Bld) [Volum e fraction]Ordered By: Najma Darryn on 05-19-2025 Hematocrit (Bld) [Volume fraction] 32.1 % Low 37-47 [facility] Hemoglobin A1con 05-19-2025 HbA1c (Bld) [Mass fraction] 6.1 % High <=5.6 [facility] Comment on above: Result Comment: Norm al < 5.7 % Prediabetic 5.7 - 6.4 % Diabetic >or= 6.5 % Please note range changes. Performed By: #### L 501.9985 ####[facility] [address] [place], [place], [id number] Hemoglobin A1c percentageOrd ered By: Najma Cates on 05-19-2025 HbA1c (Bld) [Mass fraction] 6.1 % High <5.7 [facility] Comment on above: Normal < 5.7 % Predi abetic 5.7 - 6.4 % Diabetic >or= 6.5 % Please note range changes. Hemoglobin measurementOrdere d By: Najma Cates on 05-19-2025 Hemoglobin (Bld) [Mass/Vol] 10.3 g/dL Low 12.0-15.0 [facility] Immature granulocytes/100 WB C Auto (Bld)Ordered By: Najma Cates on 05-19-2025 Immature granulocytes/100 WBC (Bld) 0.200 % 0.0-0.9 [facility] Comment on above: IG% - Immature Granu locytes (promyelocytes, myelocytes and metamyelocytes) > 1% indicates that a LEFT SHIFT is Present. Laboratory - Chemistry and C hemistry - challengeOrdered By: Najma Cates on 05-19-2025 AST [Catalytic activity/Vol] 26 U/L <32 [facility] MCV (mean corpuscular volume ) determinationOrdered By: Najma Darryn on 05-19-2025 MCV (RBC) [Entitic vol] 87.2 fL 81-99 [facility] Mean corpuscular hemoglobin (MCH) determinationOrdered By: Darryn 05-19-2025 MCH (RBC) [Entitic mass] 28.0 pg 27.0-32.0 [facility] Mean corpuscular hemoglobin concentration (MCHC) determinationOrdered By: Darryn 05-19-2025 MCHC (RBC) [Mass/Vol] 32.1 g/dL 32-36 [facility] Mean platelet volume determi nationOrdered By: Najma Darryn on 05-19-2025 Platelet mean volume (Bld) [Entitic vol] 11.7 fL 6.2-12.0 [facility] Monocyte percentageOrdered B y: Najma Darryn on 05-19-2025 Monocytes/100 WBC (Bld) 12.8 % High 0-10 [facility] Neutrophil percentageOrdered By: Darryn 05-19-2025 Neutrophils/100 WBC (Bld) 79.3 % High 47-70 [facility] Nucleated red blood cell per centageOrdered By: Najma Darryn on 05-19-2025 Nucleated RBC/100 WBC (Bld) [Ratio] 0 % 0-5 [facility] Platelet countOrdered By: Lucia raisaki Cates on 05-19-2025 Platelets (Bld) [#/Vol] 334 10*3/uL 150-450 [facility] Potassium measurement (mass/ volume)Ordered By: Najma Darryn 05-19-2025 Potassium (Unsp spec) [Mass/Vol] 3.8 mmol/L 3.3-5.1 [facility] RBC Auto (Bld) [#/Vol]Ordere d By: Najma Cates on 05-19-2025 RBC (Bld) [#/Vol] 3.68 10*6/uL Low 4.2-5.4 [facility] Serum creatinine measurement (mass/volume)Ordered By: Najma Cates on 05-19-2025 Creatinine [Mass/Vol] 0.60 mg/dL Low 0.70-1.20 [facility] Serum globulin measurementOr dered By: Najma Cates on 05-19-2025 Globulin (S) [Mass/Vol] 3.0 g/dL 2.2-4.2 [facility] Serum glucose measurement (m ass/volume)Ordered By: Najma Cates on 05-19-2025 Glucose [Mass/Vol] 115 mg/dL High 70-99 [facility] Serum or plasma alanine thompson otransferase (ALT) measurementOrdered By: Najma Cates on 05-19-2025 ALT [Catalytic activity/Vol] 10 U/L <35 [facility] Serum or plasma albumin charlene urement (mass/volume)Ordered By: Najma Cates on 05-19-2025 Albumin [Mass/Vol] 3.6 g/dL 3.4-4.8 [facility] Serum or plasma albumin/glob ulin mass ratioOrdered By: Najma Cates on 05-19-2025 Albumin/Globulin [Mass ratio] 1.2 {ratio} 0.9-2.4 [facility] Serum or plasma alkaline dameon sphatase measurementOrdered By: Najma Cates on 05-19-2025 ALP [Catalytic activity/Vol] 74 U/L 35-104 [facility] Serum or plasma calcium charlene urement (mass/volume)Ordered By: Najma Cates on 05-19-2025 Calcium [Mass/Vol] 8.9 mg/dL 7.6-11.0 [facility] Serum or plasma urea nitroge n measurement (mass/volume)Ordered By: Najma Cates on 05-19-2025 Urea nitrogen [Mass/Vol] 14 mg/dL 4-19 [facility] Sodium levelOrdered By: Dariau mn Darryn on 05-19-2025 Sodium [Moles/Vol] 133 mmol/L 133-145 [facility] Total proteinOrdered By: Daria umn Darryn on 05-19-2025 Protein [Mass/Vol] 6.6 g/dL 5.9-8.4 [facility] White blood cell (WBC) count Ordered By: Najma Cates on 05-19-2025 WBC (Bld) [#/Vol] 6.3 10*3/uL 4.4-11.0 [facility] 12 Lead EKGon 05-18-2025 12 Lead EKG Normal [facility] Abdomen/Pelvis W IV Cont ONL Yon 05-18-2025 Abdomen/Pelvis W IV Cont ONLY Normal [facility] Absolute lymphocyte countOrd ered By: Jeffery Mcclain on 05-18-2025 Lymphocytes Auto (Unsp spec) [#/Vol] 0.47 10*3/uL Low 0.83-4.51 [facility] Absolute neutrophil countOrd ered By: Jeffery Mcclain on 05-18-2025 Neutrophils (Bld) [#/Vol] 13.0 10*3/uL High 2.0-7.7 [facility] Anion gap in Serum or Plasma Ordered By: Jeffery Mcclain on 05-18-2025 Anion gap [Moles/Vol] 20 mmol/L High 5-15 [facility] Automated lymphocyte count a s percentage of total leukocytesOrdered By: Jeffery Mcclain on 05-18-2025 Lymphocytes/100 WBC Auto (Unsp spec) 3.3 % Low 19-41 [facility] BUN/creatinine ratioOrdered By: Jeffery Mcclain on 05-18-2025 Urea nitrogen/Creatinine [Mass ratio] 19.4 mg/mg 10-20 [facility] Basic Metabolic Profile (BMP )on 05-18-2025 BUN/CRE 19.6 RATIO Normal 10-20 [facility] Comment on above: Performed By: #### L 500.2500 ####[facility] [address] [place], [place], [address] Calcium [Mass/Vol] 8.0 mg/dL Normal 7.6-11.0 [facility] Comment on above: Performed By: #### L 500.2500 ####[facility] [address] [place], [address] Chloride [Moles/Vol] 102 mmol/L Normal 98-108 [facility] Comment on above: Performed By: #### L 500.2500 ####[facility] [address] [place], [address] CO2 [Moles/Vol] 15.1 mmol/L Low 21.0-32.0 [facility] Comment on above: Performed By: #### L 500.2500 ####[facility] [address] [place], [address] Creatinine [Mass/Vol] 0.56 mg/dL Low 0.70-1.20 [facility] Comment on above: Performed By: #### L 500.2500 ####[facility] [address] [place], [address] ECRCL 47.10 ml/min Low 50-250 [facility] Comment on above: Performed By: #### L 500.2500 ####[facility] [address] [place], [address] GAP 17 High 5-15 [facility] Comment on above: Performed By: #### L 500.2500 ####[facility] [address] [place], [address] GFR/1.73 sq M.predicted among non-blacks MDRD (S/P/Bld) [Vol rate/Area] 90 mL/min/{1.73_m2} Normal >60 [facility] Comment on above: Result Comment: mL/m in/1.73m2 CKD-EPI Creatinine Equation (2020) Performed By: #### L 500.2500 ####[facility] [address] [place], [address] Glucose [Mass/Vol] 148 mg/dL High 70-99 [facility] Comment on above: Performed By: #### L 500.2500 ####[facility] [address] [place], [address] Potassium [Moles/Vol] 3.5 mmol/L Normal 3.3-5.1 [facility] Comment on above: Performed By: #### L 500.2500 ####[facility] [address] [place], [address] Sodium [Moles/Vol] 134 mmol/L Normal 133-145 [facility] Comment on above: Performed By: #### L 500.2500 ####[facility] [address] [place], [address] Urea nitrogen [Mass/Vol] 11 mg/dL Normal 4-19 [facility] Comment on above: Performed By: #### L 500.2500 ####[facility] [address] [place], [place], [phone]) Basophil percentageOrdered B y: Jeffery Mcclain on 05-18-2025 Basophils/100 WBC (Bld) 0.3 % 0-1 [facility] Bilirubin Test strip Ql (U)O rdered By: Jeffery LovettWill on 05-18-2025 Bilirubin Ql (U) Negative Negative [facility] Bilirubin, totalOrdered By: Jeffery Mcclain on 05-18-2025 Bilirubin [Mass/Vol] 0.54 mg/dL 0.00-1.30 [facility] CBC W/Diff, Automatedon 08-0 Absolute Lymph 0.47 X10 3/uL Low 0.83-4.51 [facility] Comment on above: Performed By: #### L 500.4050, L100.0100, L501.2450, L503.6005 ####[facility] [address] [place], [address] Absolute Neut 13.0 X10 3/uL High 2.0-7.7 [facility] Comment on above: Performed By: #### L 500.4050, L100.0100, L501.2450, L503.6005 ####[facility] [address] [place], [address] Basophils/100 WBC (Bld) 0.3 % Normal 0-1 [facility] Comment on above: Performed By: #### L 500.4050, L100.0100, L501.2450, L503.6005 ####[facility] [address] [place], [address] Eosinophils/100 WBC (Bld) 0.0 % Normal 0-5 [facility] Comment on above: Performed By: #### L 500.4050, L100.0100, L501.2450, L503.6005 ####[facility] [address] [place], [address] Erythrocyte distribution width (RBC) [Ratio] 13.2 % Normal 11.6-14.6 [facility] Comment on above: Performed By: #### L 500.4050, L100.0100, L501.2450, L503.6005 ####[facility] [address] [place], [address] Hematocrit (Bld) [Volume fraction] 37.0 % Normal 37-47 [facility] Comment on above: Performed By: #### L 500.4050, L100.0100, L501.2450, L503.6005 ####[facility] [address] [place], [address] Hemoglobin (Bld) [Mass/Vol] 12.2 g/dL Normal 12.0-15.0 [facility] Comment on above: Performed By: #### L 500.4050, L100.0100, L501.2450, L503.6005 ####[facility] [address] [place], [address] IG% 0.200 Normal 0.0-0.9 [facility] Comment on above: Result Comment: IG% - Immature Granulocytes (promyelocytes, myelocytes andmetamyelocytes) > 1% indicates that a LEFT SHIFT is Present. Performed By: #### L 500.4050, L100.0100, L501.2450, L503.6005 ####[facility] [address] [place], [address] Lymphocytes/100 WBC (Bld) 3.3 % Low 19-41 [facility] Comment on above: Performed By: #### L 500.4050, L100.0100, L501.2450, L503.6005 ####[facility] [address] [place], [address] MCH (RBC) [Entitic mass] 28.0 pg Normal 27.0-32.0 [facility] Comment on above: Performed By: #### L 500.4050, L100.0100, L501.2450, L503.6005 ####[facility] [address] [place], [address] MCHC (RBC) [Mass/Vol] 33.0 g/dL Normal 32-36 [facility] Comment on above: Performed By: #### L 500.4050, L100.0100, L501.2450, L503.6005 ####[facility] [address] [place], [address] MCV (RBC) [Entitic vol] 85.1 fL Normal 81-99 [facility] Comment on above: Performed By: #### L 500.4050, L100.0100, L501.2450, L503.6005 ####[facility] [address] [place], [address] Monocytes/100 WBC (Bld) 4.6 % Normal 0-10 [facility] Comment on above: Performed By: #### L 500.4050, L100.0100, L501.2450, L503.6005 ####[facility] [address] [place], [address] Neutrophils/100 WBC (Bld) 91.6 % High 47-70 [facility] Comment on above: Performed By: #### L 500.4050, L100.0100, L501.2450, L503.6005 ####[facility] [address] [place], [address] Nucleated RBC (Bld) [#/Vol] 0 10*3/uL Normal 0-5 [facility] Comment on above: Performed By: #### L 500.4050, L100.0100, L501.2450, L503.6005 ####[facility] [address] [place], [address] Platelet mean volume (Bld) [Entitic vol] 11.9 fL Normal 6.2-12.0 [facility] Comment on above: Performed By: #### L 500.4050, L100.0100, L501.2450, L503.6005 ####[facility] [address] [place], [address] Platelets (Bld) [#/Vol] 364 10*3/uL Normal 150-450 [facility] Comment on above: Performed By: #### L 500.4050, L100.0100, L501.2450, L503.6005 ####[facility] [address] [place], [address] RBC (Bld) [#/Vol] 4.35 10*6/uL Normal 4.2-5.4 [facility] Comment on above: Performed By: #### L 500.4050, L100.0100, L501.2450, L503.6005 ####[facility] [address] [place], [address] RDW SD 41.1 fl Normal 35.1-43.9 [facility] Comment on above: Performed By: #### L 500.4050, L100.0100, L501.2450, L503.6005 ####[facility] [address] [place], [address] WBC (Bld) [#/Vol] 14.2 10*3/uL High 4.4-11.0 [facility] Comment on above: Performed By: #### L 500.4050, L100.0100, L501.2450, L503.6005 ####[facility] [address] [place], [address] Carbon dioxide, total [Moles /volume] in Central venous bloodOrdered By: Jeffery Mcclain on 05-18-2025 CO2 [Moles/Vol] 18.0 mmol/L Low 21.0-32.0 [facility] Chloride assayOrdered By: Refugio Mcclain on 05-18-2025 Chloride [Moles/Vol] 94 mmol/L Low 98-108 [facility] Comprehensive Metabolic Prof ilon 05-18-2025 Albumin [Mass/Vol] 4.5 g/dL Normal 3.4-4.8 [facility] Comment on above: Performed By: #### L 500.4050, L100.0100, L501.2450, L503.6005 ####[facility] [address] [place], [address] Albumin/Globulin [Mass ratio] 1.1 {ratio} Normal 0.9-2.4 [facility] Comment on above: Performed By: #### L 500.4050, L100.0100, L501.2450, L503.6005 ####[facility] [address] [place], [address] ALK PHOS 93 U/L Normal 35-104 [facility] Comment on above: Performed By: #### L 500.4050, L100.0100, L501.2450, L503.6005 ####[facility] [address] [place], [address] ALT [Catalytic activity/Vol] 16 U/L Normal <=34 [facility] Comment on above: Performed By: #### L 500.4050, L100.0100, L501.2450, L503.6005 ####[facility] [address] [place], [address] AST [Catalytic activity/Vol] 44 U/L High <=31 [facility] Comment on above: Result Comment: Hemo lysis present, Results??could be affected.?? Performed By: #### L 500.4050, L100.0100, L501.2450, L503.6005 ####[facility] [address] [place], [address] Bilirubin [Mass/Vol] 0.54 mg/dL Normal 0.00-1.30 [facility] Comment on above: Performed By: #### L 500.4050, L100.0100, L501.2450, L503.6005 ####[facility] [address] [place], [address] BUN/CRE 19.4 RATIO Normal 10-20 [facility] Comment on above: Performed By: #### L 500.4050, L100.0100, L501.2450, L503.6005 ####[facility] [address] [place], [address] Calcium [Mass/Vol] 10.1 mg/dL Normal 7.6-11.0 [facility] Comment on above: Performed By: #### L 500.4050, L100.0100, L501.2450, L503.6005 ####[facility] [address] [place], [address] Chloride [Moles/Vol] 94 mmol/L Low 98-108 [facility] Comment on above: Performed By: #### L 500.4050, L100.0100, L501.2450, L503.6005 ####[facility] [address] [place], [address] CO2 [Moles/Vol] 18.0 mmol/L Low 21.0-32.0 [facility] Comment on above: Performed By: #### L 500.4050, L100.0100, L501.2450, L503.6005 ####[facility] [address] [place], [address] Creatinine [Mass/Vol] 0.78 mg/dL Normal 0.70-1.20 [facility] Comment on above: Performed By: #### L 500.4050, L100.0100, L501.2450, L503.6005 ####[facility] [address] [place], [address] ECRCL 47.10 ml/min Low 50-250 [facility] Comment on above: Performed By: #### L 500.4050, L100.0100, L501.2450, L503.6005 ####[facility] [address] [place], [address] GAP 20 High 5-15 [facility] Comment on above: Performed By: #### L 500.4050, L100.0100, L501.2450, L503.6005 ####[facility] [address] [place], [address] GFR/1.73 sq M.predicted among non-blacks MDRD (S/P/Bld) [Vol rate/Area] 75 mL/min/{1.73_m2} Normal >60 [facility] Comment on above: Result Comment: mL/m in/1.73m2 CKD-EPI Creatinine Equation (2020) Performed By: #### L 500.4050, L100.0100, L501.2450, L503.6005 ####[facility] [address] [place], [address] Globulin (S) [Mass/Vol] 4.1 g/dL Normal 2.2-4.2 [facility] Comment on above: Performed By: #### L 500.4050, L100.0100, L501.2450, L503.6005 ####[facility] [address] [place], [address] Glucose [Mass/Vol] 152 mg/dL High 70-99 [facility] Comment on above: Performed By: #### L 500.4050, L100.0100, L501.2450, L503.6005 ####[facility] [address] [place], [address] Potassium [Moles/Vol] 4.0 mmol/L Normal 3.3-5.1 [facility] Comment on above: Result Comment: Hemo lysis present, Results??could be affected.?? Performed By: #### L 500.4050, L100.0100, L501.2450, L503.6005 ####[facility] [address] [place], [address] Sodium [Moles/Vol] 132 mmol/L Low 133-145 [facility] Comment on above: Performed By: #### L 500.4050, L100.0100, L501.2450, L503.6005 ####[facility] [address] [place], [address] T PROT 8.6 g/dL High 5.9-8.4 [facility] Comment on above: Performed By: #### L 500.4050, L100.0100, L501.2450, L503.6005 ####[facility] [address] [place], [address] Urea nitrogen [Mass/Vol] 15 mg/dL Normal 4-19 [facility] Comment on above: Performed By: #### L 500.4050, L100.0100, L501.2450, L503.6005 ####[facility] [address] [place], [address] Emergency Department Summary on 05-18-2025 Emergency Department Summary Normal [facility] Eosinophil percentageOrdered By: Jeffery Mcclain on 05-18-2025 Eosinophils/100 WBC (Bld) 0.0 % 0-5 [facility] Erythrocyte distribution wid th ratioOrdered By: [facility] on 05-[facility]-2025 Erythrocyte distribution width (RBC) [Ratio] 13.2 % 11.6-14.6 [facility] Erythrocyte distribution wid th standard deviationOrdered By: [facility] Camp[facility]ney Solis on 05-18-2025 Erythrocyte distribution width (RBC) [Ratio] 41.1 fl 35.1-43.9 [facility] Glomerular filtration rate ( GFR) estimation/1.73 sq m using serum, plasma, or whole bOrdered By: Jefferysandro Mcclain on 05-18-2025 GFR/1.73 sq M.predicted among non-blacks MDRD (S/P/Bld) [Vol rate/Area] 75 mL/min/{1.73_m2} >60 [facility] Comment on above: mL/min/1.73m2 CKD-EP I Creatinine Equation (2020) H AND P Exam - [facility] 05-18-2025 H&P Exam - Hospitalist Normal [facility] Hematocrit Auto (Bld) [Volum e fraction]Ordered By: Jeffery Mcclain on 05-18-2025 Hematocrit (Bld) [Volume fraction] 37.0 % 37-47 [facility] Hemoglobin measurementOrdere d By: Jeffery Mcclain on 05-18-2025 Hemoglobin (Bld) [Mass/Vol] 12.2 g/dL 12.0-15.0 [facility] Immature granulocytes/100 WB C Auto (Bld)Ordered By: Jeffery Mcclain on 05-18-2025 Immature granulocytes/100 WBC (Bld) 0.200 % 0.0-0.9 [facility] Comment on above: IG% - Immature Granu locytes (promyelocytes, myelocytes and metamyelocytes) > 1% indicates that a LEFT SHIFT is Present. Ketones Test strip Ql (U)Ord ered By: Jeffery Mcclain on 05-18-2025 Ketones Ql (U) 15 mg/dl High Negative [facility] Laboratory - Chemistry and C hemistry - challengeOrdered By: Jeffery Mcclain on 05-18-2025 AST [Catalytic activity/Vol] 44 U/L High <32 [facility] Comment on above: Hemolysis present, R esults could be affected. Lactic Acidon 05-18-2025 Lactate [Moles/Vol] 1.9 mmol/L Normal 0.0-2.0 [facility] Comment on above: Order Comment: Y Performed By: #### L 500.4050, L100.0100, L501.2450, L503.6005 ####[facility] [address] [place], [address] Lactic acid measurementOrder ed By: Jeffery Mcclain on 05-18-2025 Lactate [Moles/Vol] 1.9 mmol/L 0.0-2.0 [facility] Lipaseon 05-18-2025 Lipase [Catalytic activity/Vol] 32 U/L Normal 13-75 [facility] Comment on above: Result Comment: Plea se note:LIPASE revised reference range effective 23.New Lipase methodology. Expected to produce lower valuesthan the previous assay method.NEW Reference Range: 13 - 75 U/L Performed By: #### L 500.4050, L100.0100, L501.2450, L503.6005 ####[facility] [address], [address] Lipase measurementOrdered By : Jeffery Mcclain on 05-18-2025 Lipase [Catalytic activity/Vol] 32 U/L 13-75 [facility] Comment on above: Please note:LIPASE r evised reference range effective 23. New Lipase methodology. Expected to produce lower values than the previous assay method. NEW Reference Range: 13 - 75 U/L MCV (mean corpuscular volume ) determinationOrdered By: Jeffery Mcclain on 05-18-2025 MCV (RBC) [Entitic vol] 85.1 fL 81-99 [facility] Mean corpuscular hemoglobin (MCH) determinationOrdered By: Jeffery Mcclain on 05-18-2025 MCH (RBC) [Entitic mass] 28.0 pg 27.0-32.0 [facility] Mean corpuscular hemoglobin concentration (MCHC) determinationOrdered By: Jeffery Mcclain on 05-18-2025 MCHC (RBC) [Mass/Vol] 33.0 g/dL 32-36 [facility] Mean platelet volume determi nationOrdered By: Jeffery Mcclain on 05-18-2025 Platelet mean volume (Bld) [Entitic vol] 11.9 fL 6.2-12.0 [facility] Microscopic analysis of urin e for red blood cells (RBC)Ordered By: Jeffery Mcclain on 05-18-2025 Microscopic analysis of urine for red blood cells (RBC) 0-5 SEEN /hpf 0-5 [facility] Monocyte percentageOrdered B y: Jeffery Mcclain on 05-18-2025 Monocytes/100 WBC (Bld) 4.6 % 0-10 [facility] Mucus LM Ql (Urine sed)Order ed By: Jeffery Mcclain on 05-18-2025 Mucus Ql (Urine sed) 0 SEEN /hpf [facility] Neutrophil percentageOrdered By: Jeffery Mcclain on 05-18-2025 Neutrophils/100 WBC (Bld) 91.6 % High 47-70 [facility] Nitrite Test strip Ql (U)Ord ered By: Jeffery Mcclain on 05-18-2025 Nitrite Ql (U) Negative Negative [facility] Nucleated red blood cell per centageOrdered By: Jeffery Mcclain on 05-18-2025 Nucleated RBC/100 WBC (Bld) [Ratio] 0 % 0-5 [facility] Platelet countOrdered By: Refugio Mcclain on 05-18-2025 Platelets (Bld) [#/Vol] 364 10*3/uL 150-450 [facility] Potassium measurement (mass/ volume)Ordered By: Jeffery Mcclain on 05-18-2025 Potassium (Unsp spec) [Mass/Vol] 4.0 mmol/L 3.3-5.1 [facility] Comment on above: Hemolysis present, R esults could be affected. Protein Test strip Ql (U)Ord ered By: Jeffery Mcclain on 05-18-2025 Protein Ql (U) 30 mg/dl High Negative [facility] RBC Auto (Bld) [#/Vol]Ordere d By: Jeffery Mcclain on 05-18-2025 RBC (Bld) [#/Vol] 4.35 10*6/uL 4.2-5.4 [facility] Serum creatinine measurement (mass/volume)Ordered By: Jeffery Mcclain on 05-18-2025 Creatinine [Mass/Vol] 0.78 mg/dL 0.70-1.20 [facility] Serum globulin measurementOr dered By: Jeffery Mcclain on 05-18-2025 Globulin (S) [Mass/Vol] 4.1 g/dL 2.2-4.2 [facility] Serum glucose measurement (m ass/volume)Ordered By: Jeffery Mcclain on 05-18-2025 Glucose [Mass/Vol] 152 mg/dL High 70-99 [facility] Serum or plasma alanine thompson otransferase (ALT) measurementOrdered By: Jeffery Mcclain on 05-18-2025 ALT [Catalytic activity/Vol] 16 U/L <35 [facility] Serum or plasma albumin charlene urement (mass/volume)Ordered By: Jeffery Solis on 05-18-2025 Albumin [Mass/Vol] 4.5 g/dL 3.4-4.8 [facility] Serum or plasma albumin/glob ulin mass ratioOrdered By: Jeffery Mcclain on 05-18-2025 Albumin/Globulin [Mass ratio] 1.1 {ratio} 0.9-2.4 [facility] Serum or plasma alkaline dameon sphatase measurementOrdered By: Jeffery Mcclain on 05-18-2025 ALP [Catalytic activity/Vol] 93 U/L 35-104 [facility] Serum or plasma calcium charlene urement (mass/volume)Ordered By: Jeffery Solis on 05-18-2025 Calcium [Mass/Vol] 10.1 mg/dL 7.6-11.0 [facility] Serum or plasma urea nitroge n measurement (mass/volume)Ordered By: Jeffery Mcclain on 05-18-2025 Urea nitrogen [Mass/Vol] 15 mg/dL 4-19 [facility] Sodium levelOrdered By: Jesus Mcclain on 05-18-2025 Sodium [Moles/Vol] 132 mmol/L Low 133-145 [facility] Squamous epithelial cells de tection in urine sediment by light microscopyOrdered By: Jeffery Mcclain on 05-18-2025 Epithelial cells.squamous LM Ql (Urine sed) 0-5 SEEN /hpf 5-10 [facility] Total proteinOrdered By: Mikel Mcclain on 05-18-2025 Protein [Mass/Vol] 8.6 g/dL High 5.9-8.4 [facility] Urinalysis, Completeon 05-18 EPI,SQUAMOUS 0-5 SEEN Normal 5-10 [facility] Comment on above: Order Comment: CLEAN CATCH Performed By: #### L 400.0001 ####[facility] [address] [place], [address] RBC 0-5 SEEN Normal 0-5 [facility] Comment on above: Order Comment: CLEAN CATCH Performed By: #### L 400.0001 ####[facility] [address] [place], [address] WBC 0-5 SEEN Normal 0-5 [facility] Comment on above: Order Comment: CLEAN CATCH Performed By: #### L 400.0001 ####[facility] [address] [place], [address] BACTERIA 0 SEEN Normal None Seen [facility] Comment on above: Order Comment: CLEAN CATCH Performed By: #### L 400.0001 ####[facility] [address] [place], [address] Mucus Ql (Urine sed) 0 SEEN Normal [facility] Comment on above: Order Comment: CLEAN CATCH Performed By: #### L 400.0001 ####[facility] [address] [place], [address] Urine clarityOrdered By: Mikel Mcclain on 05-18-2025 Clarity (U) Sl. Cloudy Clear [facility] Urine color determinationOrd ered By: Jeffery Mcclain on 05-18-2025 Color (U) Straw Yellow [facility] Urine glucose detectionOrder ed By: Jeffery Mcclain on 05-18-2025 Glucose Ql (U) Normal mg/dl Normal [facility] Urine leukocyte esterase det ection by dipstickOrdered By: Jeffery Mcclain on 05-18-2025 Leukocyte esterase Test strip Ql (U) 100 /ul High Negative [facility] Urine pHOrdered By: Jeffery Emanuel on 05-18-2025 pH (U) 7.0 [pH] 5.0 - 8.0 [facility] Urine sediment bacteria coun t by microscopy (number/high power field)Ordered By: Jeffery Mcclain on 05-18-2025 Bacteria LM.HPF (Urine sed) [#/Area] 0 /[HPF] None Seen [facility] Urine specific gravity measu rementOrdered By: Jeffery Mcclain on 05-18-2025 Specific gravity (U) [Rel density] 1.010 1.002-1.030 [facility] Urine urobilinogen measureme ntOrdered By: Jeffery Mcclain on 05-18-2025 Urobilinogen Ql (U) Normal mg/dl Normal [facility] White blood cell (WBC) count Ordered By: Jeffery Mcclain on 05-18-2025 WBC (Bld) [#/Vol] 14.2 10*3/uL High 4.4-11.0 [facility] White blood cell countOrdere d By: Jeffery Mcclain on 05-18-2025 White blood cell count 0-5 SEEN /hpf 0-5 [facility] SURG PATH REQUESTon 05-17-20 Case Report Normal [facility] Comment on above: Result Comment: Surg ical Pathology Report Case: [id number] Authorizing Provider: Carlos Bernal MD Collected: 05/17/2025 03:17 PM Ordering Location[facility] Received: 05/17/2025 03:13 PM [facility] Pathologist: YOLANDA Hidalgo, PhD Specimen: SURG PATH, Outside Block [id number] (A2); Lung, left, CT-guided core biopsy; Molecular testing Performed By: #### S URGP #### [facility] (DEFAULT) [address] [place] [address] Clinical History Normal [facility] Comment on above: Result Comment: Rece ived is a request from Carlos Bernal MD at [facility], [address] [place] [address] for molecular testing on a paraffin block received from [facility]. Performed By: #### S URGP #### [facility] (DEFAULT) [address] [place] [address] Gross Description Normal [facility] Comment on above: Result Comment: The following material(s) are received from [facility], [address] [place] [address] with an identifying Surgical Pathology Report: 1 paraffin block marked [id number] (A2), which is submitted to the [facility] histology/IHC laboratory for recutting and additional staining [...] Performed By: #### S URGP #### [facility] (DEFAULT) [address] [place] [address] Microscopic Description Normal [facility] Comment on above: Result Comment: Tiss [...] patients who are not eligible for any cloverdale-containing chemotherapy regardless of PD-L1 status. See [employer] prescribing information for details. *PD-L1 IHC 22C3 pharmDx is a FDA-approved pbx repairer diagnostic for pembrolizumab performed on Dako Autostainer [...] paraffin-embedded tissues, using clone [id number] (rabbit monoclonal, Kaka) on a Kaka auto-stainer. Membrane staining of tumor cells is [...] developed by and are performed at the [facility] Clinical Laboratory, Histology and IHC Lab, [address] [place] [address]. All Immunofluorescent (IF) tests were developed by and are performed at the [facility] Clinical Laboratory, Renal Division, [facility]. [address] [place] [address]. All tests reported here, except for PD-L1, have not been cleared by or approved by the [place] Food and Drug Administration (FDA). The laboratory is regulated under CLIA as qualified to perform high-complexity testing. The tests are used for clinical purposes. They should not be regarded as investigational or for research. Performed By: #### S URGP #### [facility] (DEFAULT) [address] [place] [address] Pathologic Diagnosis [facility] Comment on above: Result Comment: Outs otilio Slides: [id number] (05/10/25) Lung, left, CT-guided lung biopsy: PD-L1 [...] EDT Performed By: #### S URGP #### [facility] (DEFAULT) [address] [place] [address] Professional Interpretation Performed at: [facility] Comment on above: Result Comment: [facility] For Immediate Release [facility] Yes [address] [place] [address] Performed By: #### S URGP #### [facility] (DEFAULT) [address] [place] [address] Cardiology Visit Reporton Cardiology Visit Report Normal [facility] Surgical pathology reportOrd ered By: Erum Bonilla on 05-15-2025 Surgical pathology study [facility] Absolute lymphocyte countOrd ered By: Brian Gonzales on 05-10-2025 Lymphocytes Auto (Unsp spec) [#/Vol] 0.79 10*3/uL Low 0.83-4.51 [facility] Absolute neutrophil countOrd ered By: Brian Gonzales on 05-10-2025 Neutrophils (Bld) [#/Vol] 4.5 10*3/uL 2.0-7.7 [facility] Activated partial thrombopla stin time (aPTT) in platelet poor plasma by coagulation aOrdered By: Brian Gonzales on 05-10-2025 aPTT Coag (PPP) [Time] 25.6 s 24.1-36.2 [facility] Automated lymphocyte count a s percentage of total leukocytesOrdered By: Brian Gonzales on 05-10-2025 Lymphocytes/100 WBC Auto (Unsp spec) 12.9 % Low 19-41 [facility] Basophil percentageOrdered B y: Brian Gonzales on 05-10-2025 Basophils/100 WBC (Bld) 1.0 % 0-1 [facility] Biopsy/Inj or Needle Placeme nton 05-10-2025 Biopsy/Inj or Needle Placement Normal [facility] CBC W/Diff, Automatedon 04-13 0 Absolute Lymph 0.79 X10 3/uL Low 0.83-4.51 [facility] Comment on above: Performed By: #### L 300.3900, L300.4310, L100.0100 ####[facility] [address] [place], [address] Absolute Neut 4.5 X10 3/uL Normal 2.0-7.7 [facility] Comment on above: Performed By: #### L 300.3900, L300.4310, L100.0100 ####[facility] [address] [place], [address] Basophils/100 WBC (Bld) 1.0 % Normal 0-1 [facility] Comment on above: Performed By: #### L 300.3900, L300.4310, L100.0100 ####[facility] [address] [place], [address] Eosinophils/100 WBC (Bld) 1.5 % Normal 0-5 [facility] Comment on above: Performed By: #### L 300.3900, L300.4310, L100.0100 ####[facility] [address] [place], [address] Erythrocyte distribution width (RBC) [Ratio] 13.2 % Normal 11.6-14.6 [facility] Comment on above: Performed By: #### L 300.3900, L300.4310, L100.0100 ####[facility] [address] [place], [address] Hematocrit (Bld) [Volume fraction] 34.7 % Low 37-47 [facility] Comment on above: Performed By: #### L 300.3900, L300.4310, L100.0100 ####[facility] [address] [place], [address] Hemoglobin (Bld) [Mass/Vol] 11.0 g/dL Low 12.0-15.0 [facility] Comment on above: Performed By: #### L 300.3900, L300.4310, L100.0100 ####[facility] [address] [place], [address] IG% 0.500 Normal 0.0-0.9 [facility] Comment on above: Result Comment: IG% - Immature Granulocytes (promyelocytes, myelocytes andmetamyelocytes) > 1% indicates that a LEFT SHIFT is Present. Performed By: #### L 300.3900, L300.4310, L100.0100 ####[facility] [address] [place], [address] Lymphocytes/100 WBC (Bld) 12.9 % Low 19-41 [facility] Comment on above: Performed By: #### L 300.3900, L300.4310, L100.0100 ####[facility] [address] [place], [address] MCH (RBC) [Entitic mass] 27.8 pg Normal 27.0-32.0 [facility] Comment on above: Performed By: #### L 300.3900, L300.4310, L100.0100 ####[facility] [address] [place], [address] MCHC (RBC) [Mass/Vol] 31.7 g/dL Low 32-36 [facility] Comment on above: Performed By: #### L 300.3900, L300.4310, L100.0100 ####[facility] [address] [place], [address] MCV (RBC) [Entitic vol] 87.8 fL Normal 81-99 [facility] Comment on above: Performed By: #### L 300.3900, L300.4310, L100.0100 ####[facility] [address] [place], [address] Monocytes/100 WBC (Bld) 11.6 % High 0-10 [facility] Comment on above: Performed By: #### L 300.3900, L300.4310, L100.0100 ####[facility] [address] [place], [address] Neutrophils/100 WBC (Bld) 72.5 % High 47-70 [facility] Comment on above: Performed By: #### L 300.3900, L300.4310, L100.0100 ####[facility] [address] [place], [address] Nucleated RBC (Bld) [#/Vol] 0 10*3/uL Normal 0-5 [facility] Comment on above: Performed By: #### L 300.3900, L300.4310, L100.0100 ####[facility] [address] [place], [address] Platelet mean volume (Bld) [Entitic vol] 10.7 fL Normal 6.2-12.0 [facility] Comment on above: Performed By: #### L 300.3900, L300.4310, L100.0100 ####[facility] [address] [place], [address] Platelets (Bld) [#/Vol] 347 10*3/uL Normal 150-450 [facility] Comment on above: Performed By: #### L 300.3900, L300.4310, L100.0100 ####[facility] [address] [place], [address] RBC (Bld) [#/Vol] 3.95 10*6/uL Low 4.2-5.4 [facility] Comment on above: Performed By: #### L 300.3900, L300.4310, L100.0100 ####[facility] [address] [place], [address] RDW SD 42.8 fl Normal 35.1-43.9 [facility] Comment on above: Performed By: #### L 300.3900, L300.4310, L100.0100 ####[facility] [address] [place], [address] WBC (Bld) [#/Vol] 6.1 10*3/uL Normal 4.4-11.0 [facility] Comment on above: Performed By: #### L 300.3900, L300.4310, L100.0100 ####[facility] [address] [place], [address] Chest Insp/Exp 2 Viewon 04-13 Chest Insp/Exp 2 View Normal [facility] Chest Insp/Exp 2 View Normal [facility] Eosinophil percentageOrdered By: Brian Gonzales on 05-10-2025 Eosinophils/100 WBC (Bld) 1.5 % 0-5 [facility] Erythrocyte distribution wid th ratioOrdered By: Brian Gonzales on 05-10-2025 Erythrocyte distribution width (RBC) [Ratio] 13.2 % 11.6-14.6 [facility] Erythrocyte distribution wid th standard deviationOrdered By: Brian Gonzales on 05-10-2025 Erythrocyte distribution width (RBC) [Ratio] 42.8 fl 35.1-43.9 [facility] Hematocrit Auto (Bld) [Volum e fraction]Ordered By: Brian Gonzales on 05-10-2025 Hematocrit (Bld) [Volume fraction] 34.7 % Low 37-47 [facility] Hemoglobin measurementOrdere d By: Brian Gonzales on 05-10-2025 Hemoglobin (Bld) [Mass/Vol] 11.0 g/dL Low 12.0-15.0 [facility] Immature granulocytes/100 WB C Auto (Bld)Ordered By: Brian Gonzales on 05-10-2025 Immature granulocytes/100 WBC (Bld) 0.500 % 0.0-0.9 [facility] Comment on above: IG% - Immature Granu locytes (promyelocytes, myelocytes and metamyelocytes) > 1% indicates that a LEFT SHIFT is Present. Immunohistochemical Stainson 05-10-2025 Immunohistochemical Stains Normal [facility] Comment on above: Performed By: #### P IMWY ####[facility] [address] [place], [address] International normalized rat io (INR) calculationOrdered By: Brian Gonzales on 05-10-2025 INR Coag (Bld) [Relative time] 1.0 {INR} [facility] MCV (mean corpuscular volume ) determinationOrdered By: Brian Gonzales on 05-10-2025 MCV (RBC) [Entitic vol] 87.8 fL 81-99 [facility] Mean corpuscular hemoglobin (MCH) determinationOrdered By: Brian Gonzales on 05-10-2025 MCH (RBC) [Entitic mass] 27.8 pg 27.0-32.0 [facility] Mean corpuscular hemoglobin concentration (MCHC) determinationOrdered By: Brian Gonzales on 05-10-2025 MCHC (RBC) [Mass/Vol] 31.7 g/dL Low 32-36 [facility] Mean platelet volume determi nationOrdered By: Brian Gonzales on 05-10-2025 Platelet mean volume (Bld) [Entitic vol] 10.7 fL 6.2-12.0 [facility] Monocyte percentageOrdered B y: Brian Gonzales on 05-10-2025 Monocytes/100 WBC (Bld) 11.6 % High 0-10 [facility] Neutrophil percentageOrdered By: Brian Gonzales on 05-10-2025 Neutrophils/100 WBC (Bld) 72.5 % High 47-70 [facility] Nucleated red blood cell per centageOrdered By: Brian Gonzales on 05-10-2025 Nucleated RBC/100 WBC (Bld) [Ratio] 0 % 0-5 [facility] Partial Thromboplast Timeon 05-10-2025 aPTT Coag (Bld) [Time] 25.6 s Normal 24.1-36.2 [facility] Comment on above: Performed By: #### L 300.3900, L300.4310, L100.0100 ####[facility] [address] [place], [address] Platelet countOrdered By: Brock Gonzales on 05-10-2025 Platelets (Bld) [#/Vol] 347 10*3/uL 150-450 [facility] Prothrombin Time w/INRon INR Coag (PPP) [Relative time] 1.0 {INR} Normal [facility] Comment on above: Performed By: #### L 300.3900, L300.4310, L100.0100 ####[facility] [address] [place], [address] PT Coag (PPP) [Time] 13.0 s Normal 11.7-14.9 [facility] Comment on above: Performed By: #### L 300.3900, L300.4310, L100.0100 ####[facility] [address] [place], [address] Prothrombin timeOrdered By: Brian Gonzales on 05-10-2025 PT Coag (PPP) [Time] 13.0 s 11.7-14.9 [facility] RBC Auto (Bld) [#/Vol]Ordere d By: Brian Gonzales on 05-10-2025 RBC (Bld) [#/Vol] 3.95 10*6/uL Low 4.2-5.4 [facility] White blood cell (WBC) count Ordered By: Brian Gonzales on 05-10-2025 WBC (Bld) [#/Vol] 6.1 10*3/uL 4.4-11.0 [facility] PET/CT Tumor Base -Thigh Ini ton 05-02-2025 PET/CT Tumor Base -Thigh Init Normal [facility] Oncology Visit Reporton 04-11 Oncology Visit Report Normal [facility] CT Chest, Abd, Pel w/Contras ton 04-17-2025 CT Chest, Abd, Pel w/Contrast Normal [facility] Cancer Antigen 125on 025 CA 125 121.0 U/mL High 0.0-38.1 [facility] Comment on above: Result Comment: [employer] [employer] Electrochemiluminescence Immunoassay(ECLIA)Values obtained with different assay methods or kits cannotbe used interchangeably. Results cannot be interpreted asabsolute evidence of the presence or absence of malignantdisease.Performed at: [id number] [id number] Director: Guero Smyth PhD, Phone: [phone] Performed By: #### L 3100.5000 ####[facility] [address] [place], [address] Cancer antigen 125 (CA-125) measurementOrdered By: Carlos Bernal on 04-12-2025 Cancer antigen 125 (CA-125) measurement 121.0 U/mL High 0.0-38.1 [facility] Comment on above: [facility] [employer] El ectrochemiluminescence Immunoassay(ECLIA)Values obtained with different assay methods or kits cannotbe used interchangeably. Results cannot be interpreted asabsolute evidence of the presence or absence of malignantdisease.Performed at: [id number] [id number] Director: Guero Smyth PhD, Phone: [phone] Oncology Visit Reporton Oncology Visit Report Normal [facility] Cancer Antigen 125on 025 CA 125 83.5 U/mL High 0.0-38.1 [facility] Comment on above: Result Comment: [employer] Electrochemiluminescence Immunoassay(ECLIA)Values obtained with different assay methods or kits cannotbe used interchangeably. Results cannot be interpreted asabsolute evidence of the presence or absence of malignantdisease.Performed at: [employer] [address] [id number] Director: Guero Smyth PhD, Phone: [phone] Performed By: #### L 100.0100, L500.4050, L3100.5000, L504.2610 ####[facility] [address] [place], [place], [address] Absolute lymphocyte countOrd ered By: Carlos Bernal on 03-22-2025 Lymphocytes Auto (Unsp spec) [#/Vol] 0.82 10*3/uL Low 0.83-4.51 [facility] Absolute neutrophil countOrd ered By: [facility] on 03-22-2025 Neutrophils (Bld) [#/Vol] 5.1 10*3/uL 2.0-7.7 [facility] Anion gap in Serum or Plasma Ordered By: Carlos Bernal on 03-22-2025 Anion gap [Moles/Vol] 12 mmol/L 5-15 [facility] Automated lymphocyte count a s percentage of total leukocytesOrdered By: Carlos Bernal on 03-22-2025 Lymphocytes/100 WBC Auto (Unsp spec) 12.6 % Low 19-41 [facility] BUN/creatinine ratioOrdered By: [facility] on 03-22-2025 Urea nitrogen/Creatinine [Mass ratio] 19.3 mg/mg 10-20 [facility] Basophil percentageOrdered B y: Carlos Bernal on 03-22-2025 Basophils/100 WBC (Bld) 0.9 % 0- [facility] Bilirubin, totalOrdered By: Carlos Bernal on 03-22-2025 Bilirubin [Mass/Vol] 0.24 mg/dL 0.00-1.30 [facility] CBC W/Diff, Automatedon 03-12 Absolute Lymph 0.82 X10 3/uL Low 0.83-4.51 [facility] Comment on above: Performed By: #### L 100.0100, L500.4050, L3100.5000, L504.2610 ####[facility] [address] [place], [address] Absolute Neut 5.1 X10 3/uL Normal 2.0-7.7 [facility] Comment on above: Performed By: #### L 100.0100, L500.4050, L3100.5000, L504.2610 ####[facility] [address] [place], [address] Basophils/100 WBC (Bld) 0.9 % Normal 0-1 [facility] Comment on above: Performed By: #### L 100.0100, L500.4050, L3100.5000, L504.2610 ####[facility] [address] [place], [address] Eosinophils/100 WBC (Bld) 1.4 % Normal 0-5 [facility] Comment on above: Performed By: #### L 100.0100, L500.4050, L3100.5000, L504.2610 ####[facility] [address] [place], [address] Erythrocyte distribution width (RBC) [Ratio] 12.3 % Normal 11.6-14.6 [facility] Comment on above: Performed By: #### L 100.0100, L500.4050, L3100.5000, L504.2610 ####[facility] [address] [place], [address] Hematocrit (Bld) [Volume fraction] 32.9 % Low 37-47 [facility] Comment on above: Performed By: #### L 100.0100, L500.4050, L3100.5000, L504.2610 ####[facility] [address] [place], [address] Hemoglobin (Bld) [Mass/Vol] 10.4 g/dL Low 12.0-15.0 [facility] Comment on above: Performed By: #### L 100.0100, L500.4050, L3100.5000, L504.2610 ####[facility] [address] [place], [address] IG% 0.300 Normal 0.0-0.9 [facility] Comment on above: Result Comment: IG% - Immature Granulocytes (promyelocytes, myelocytes andmetamyelocytes) > 1% indicates that a LEFT SHIFT is Present. Performed By: #### L 100.0100, L500.4050, L3100.5000, L504.2610 ####[facility] [address] [place], [address] Lymphocytes/100 WBC (Bld) 12.6 % Low 19-41 [facility] Comment on above: Performed By: #### L 100.0100, L500.4050, L3100.5000, L504.2610 ####[facility] [address] [place], [address] MCH (RBC) [Entitic mass] 28.1 pg Normal 27.0-32.0 [facility] Comment on above: Performed By: #### L 100.0100, L500.4050, L3100.5000, L504.2610 ####[facility] [address] [place], [address] MCHC (RBC) [Mass/Vol] 31.6 g/dL Low 32-36 [facility] Comment on above: Performed By: #### L 100.0100, L500.4050, L3100.5000, L504.2610 ####[facility] [address] [place], [address] MCV (RBC) [Entitic vol] 88.9 fL Normal 81-99 [facility] Comment on above: Performed By: #### L 100.0100, L500.4050, L3100.5000, L504.2610 ####[facility] [address] [place], [address] Monocytes/100 WBC (Bld) 7.4 % Normal 0-10 [facility] Comment on above: Performed By: #### L 100.0100, L500.4050, L3100.5000, L504.2610 ####[facility] [address] [place], [address] Neutrophils/100 WBC (Bld) 77.4 % High 47-70 [facility] Comment on above: Performed By: #### L 100.0100, L500.4050, L3100.5000, L504.2610 ####[facility] [address] [place], [address] Nucleated RBC (Bld) [#/Vol] 0 10*3/uL Normal 0-5 [facility] Comment on above: Performed By: #### L 100.0100, L500.4050, L3100.5000, L504.2610 ####[facility] [address] [place], [address] Platelet mean volume (Bld) [Entitic vol] 10.6 fL Normal 6.2-12.0 [facility] Comment on above: Performed By: #### L 100.0100, L500.4050, L3100.5000, L504.2610 ####[facility] [address] [place], [address] Platelets (Bld) [#/Vol] 314 10*3/uL Normal 150-450 [facility] Comment on above: Performed By: #### L 100.0100, L500.4050, L3100.5000, L504.2610 ####[facility] [address] [place], [address] RBC (Bld) [#/Vol] 3.70 10*6/uL Low 4.2-5.4 [facility] Comment on above: Performed By: #### L 100.0100, L500.4050, L3100.5000, L504.2610 ####[facility] [address] [place], [address] RDW SD 39.8 fl Normal 35.1-43.9 [facility] Comment on above: Performed By: #### L 100.0100, L500.4050, L3100.5000, L504.2610 ####[facility] [address] [place], [address] WBC (Bld) [#/Vol] 6.5 10*3/uL Normal 4.4-11.0 [facility] Comment on above: Performed By: #### L 100.0100, L500.4050, L3100.5000, L504.2610 ####[facility] [address] [place], [address] Carbon dioxide, total [Moles /volume] in Central venous bloodOrdered By: Carlos Bernal on 03-22-2025 CO2 [Moles/Vol] 21.8 mmol/L 21.0-32.0 [facility] Chloride assayOrdered By: Emily Bernal on 03-22-2025 Chloride [Moles/Vol] 102 mmol/L 98-108 [facility] Comprehensive Metabolic Prof ilon 03-22-2025 Albumin [Mass/Vol] 4.1 g/dL Normal 3.4-4.8 [facility] Comment on above: Performed By: #### L 100.0100, L500.4050, L3100.5000, L504.2610 ####[facility] [address] [place], [address] Albumin/Globulin [Mass ratio] 1.3 {ratio} Normal 0.9-2.4 [facility] Comment on above: Performed By: #### L 100.0100, L500.4050, L3100.5000, L504.2610 ####[facility] [address] [place], [address] ALK PHOS 84 U/L Normal 35-104 [facility] Comment on above: Performed By: #### L 100.0100, L500.4050, L3100.5000, L504.2610 ####[facility] [address] [place], [address] ALT [Catalytic activity/Vol] 18 U/L Normal <=34 [facility] Comment on above: Performed By: #### L 100.0100, L500.4050, L3100.5000, L504.2610 ####[facility] [address] [place], [address] AST [Catalytic activity/Vol] 32 U/L Normal <=31 [facility] Comment on above: Performed By: #### L 100.0100, L500.4050, L3100.5000, L504.2610 ####[facility] [address] [place], [address] Bilirubin [Mass/Vol] 0.24 mg/dL Normal 0.00-1.30 [facility] Comment on above: Performed By: #### L 100.0100, L500.4050, L3100.5000, L504.2610 ####[facility] [address] [place], [address] BUN/CRE 19.3 RATIO Normal 10-20 [facility] Comment on above: Performed By: #### L 100.0100, L500.4050, L3100.5000, L504.2610 ####[facility] [address] [place], [address] Calcium [Mass/Vol] 9.5 mg/dL Normal 7.6-11.0 [facility] Comment on above: Performed By: #### L 100.0100, L500.4050, L3100.5000, L504.2610 ####[facility] [address] [place], [address] Chloride [Moles/Vol] 102 mmol/L Normal 98-108 [facility] Comment on above: Performed By: #### L 100.0100, L500.4050, L3100.5000, L504.2610 ####[facility] [address] [place], [address] CO2 [Moles/Vol] 21.8 mmol/L Normal 21.0-32.0 [facility] Comment on above: Performed By: #### L 100.0100, L500.4050, L3100.5000, L504.2610 ####[facility] [address] [place], [address] Creatinine [Mass/Vol] 0.77 mg/dL Normal 0.70-1.20 [facility] Comment on above: Performed By: #### L 100.0100, L500.4050, L3100.5000, L504.2610 ####[facility] [address] [place], [address] ECRCL 47.95 ml/min Low 50-250 [facility] Comment on above: Performed By: #### L 100.0100, L500.4050, L3100.5000, L504.2610 ####[facility] [address] [place], [address] GAP 12 Normal 5-15 [facility] Comment on above: Performed By: #### L 100.0100, L500.4050, L3100.5000, L504.2610 ####[facility] [address] [place], [address] GFR/1.73 sq M.predicted among non-blacks MDRD (S/P/Bld) [Vol rate/Area] 77 mL/min/{1.73_m2} Normal >60 [facility] Comment on above: Result Comment: mL/m in/1.73m2 CKD-EPI Creatinine Equation (2020) Performed By: #### L 100.0100, L500.4050, L3100.5000, L504.2610 ####[facility] [address] [place], [address] Globulin (S) [Mass/Vol] 3.2 g/dL Normal 2.2-4.2 [facility] Comment on above: Performed By: #### L 100.0100, L500.4050, L3100.5000, L504.2610 ####[facility] [address] [place], [address] Glucose [Mass/Vol] 125 mg/dL High 70-99 [facility] Comment on above: Performed By: #### L 100.0100, L500.4050, L3100.5000, L504.2610 ####[facility] [address] [place], [address] Potassium [Moles/Vol] 3.7 mmol/L Normal 3.3-5.1 [facility] Comment on above: Performed By: #### L 100.0100, L500.4050, L3100.5000, L504.2610 ####[facility] [address] [place], [address] Sodium [Moles/Vol] 136 mmol/L Normal 133-145 [facility] Comment on above: Performed By: #### L 100.0100, L500.4050, L3100.5000, L504.2610 ####[facility] [address] [place], [address] T PROT 7.3 g/dL Normal 5.9-8.4 [facility] Comment on above: Performed By: #### L 100.0100, L500.4050, L3100.5000, L504.2610 ####[facility] [address] [place], [address] Urea nitrogen [Mass/Vol] 15 mg/dL Normal 4-19 [facility] Comment on above: Performed By: #### L 100.0100, L500.4050, L3100.5000, L504.2610 ####[facility] [address] [place], [address] Eosinophil percentageOrdered By: Carlos Bernal on 03-22-2025 Eosinophils/100 WBC (Bld) 1.4 % 0-5 [facility] Erythrocyte distribution wid th ratioOrdered By: Carlos Bernal on 03-22-2025 Erythrocyte distribution width (RBC) [Ratio] 12.3 % 11.6-14.6 [facility] Erythrocyte distribution wid th standard deviationOrdered By: Carlos Dolores on 03-22-2025 Erythrocyte distribution width (RBC) [Ratio] 39.8 fl 35.1-43.9 [facility] Glomerular filtration rate ( GFR) estimation/1.73 sq m using serum, plasma, or whole bOrdered By: Carlos Bernal on 03-22-2025 GFR/1.73 sq M.predicted among non-blacks MDRD (S/P/Bld) [Vol rate/Area] 77 mL/min/{1.73_m2} >60 [facility] Comment on above: mL/min/1.73m2 CKD-EP I Creatinine Equation (2020) Hematocrit Auto (Bld) [Volum e fraction]Ordered By: Carlos Bernal on 03-22-2025 Hematocrit (Bld) [Volume fraction] 32.9 % Low 37-47 [facility] Hemoglobin measurementOrdere d By: Carlos Bernal on 03-22-2025 Hemoglobin (Bld) [Mass/Vol] 10.4 g/dL Low 12.0-15.0 [facility] Immature granulocytes/100 WB C Auto (Bld)Ordered By: Carlos Bernal on 03-22-2025 Immature granulocytes/100 WBC (Bld) 0.300 % 0.0-0.9 [facility] Comment on above: IG% - Immature Granu locytes (promyelocytes, myelocytes and metamyelocytes) > 1% indicates that a LEFT SHIFT is Present. LDHon 03-22-2025 LDH 279 U/L High 84-246 [facility] Comment on above: Order Comment: 1 Performed By: #### L 100.0100, L500.4050, L3100.5000, L504.2610 ####[facility] [address], [address] Laboratory - Chemistry and C hemistry - challengeOrdered By: Carlos Bernal on 03-22-2025 AST [Catalytic activity/Vol] 32 U/L <32 [facility] Lactate dehydrogenase (LDH) measurementOrdered By: Carlos Bernal on 03-22-2025 LDH [Catalytic activity/Vol] 279 U/L High 84-246 [facility] MCV (mean corpuscular volume ) determinationOrdered By: Carlos Bernal on 03-22-2025 MCV (RBC) [Entitic vol] 88.9 fL 81-99 [facility] Mean corpuscular hemoglobin (MCH) determinationOrdered By: Carlos Bernal on 03-22-2025 MCH (RBC) [Entitic mass] 28.1 pg 27.0-32.0 [facility] Mean corpuscular hemoglobin concentration (MCHC) determinationOrdered By: Carlos Bernal on 03-22-2025 MCHC (RBC) [Mass/Vol] 31.6 g/dL Low 32-36 [facility] Mean platelet volume determi nationOrdered By: Carlos Bernal on 03-22-2025 Platelet mean volume (Bld) [Entitic vol] 10.6 fL 6.2-12.0 [facility] Monocyte percentageOrdered B y: Carlos Bernal on 03-22-2025 Monocytes/100 WBC (Bld) 7.4 % 0-10 [facility] Neutrophil percentageOrdered By: Carlos Bernal on 03-22-2025 Neutrophils/100 WBC (Bld) 77.4 % High 47-70 [facility] Nucleated red blood cell per centageOrdered By: Carlos Bernal on 03-22-2025 Nucleated RBC/100 WBC (Bld) [Ratio] 0 % 0-5 [facility] Platelet countOrdered By: Emily Bernal on 03-22-2025 Platelets (Bld) [#/Vol] 314 10*3/uL 150-450 [facility] Potassium measurement (mass/ volume)Ordered By: Carlos Bernal on 03-22-2025 Potassium (Unsp spec) [Mass/Vol] 3.7 mmol/L 3.3-5.1 [facility] RBC Auto (Bld) [#/Vol]Ordere d By: Carlos Bernal on 03-22-2025 RBC (Bld) [#/Vol] 3.70 10*6/uL Low 4.2-5.4 [facility] Serum creatinine measurement (mass/volume)Ordered By: Carlos Bernal on 03-22-2025 Creatinine [Mass/Vol] 0.77 mg/dL 0.70-1.20 [facility] Serum globulin measurementOr dered By: Carlos Bernal on 03-22-2025 Globulin (S) [Mass/Vol] 3.2 g/dL 2.2-4.2 [facility] Serum glucose measurement (m ass/volume)Ordered By: Carlos Bernal on 03-22-2025 Glucose [Mass/Vol] 125 mg/dL High 70-99 [facility] Serum or plasma alanine thompson otransferase (ALT) measurementOrdered By: Carlos Bernal on 03-22-2025 ALT [Catalytic activity/Vol] 18 U/L <35 [facility] Serum or plasma albumin charlene urement (mass/volume)Ordered By: Carlos Bernal on 03-22-2025 Albumin [Mass/Vol] 4.1 g/dL 3.4-4.8 [facility] Serum or plasma albumin/glob ulin mass ratioOrdered By: Carlos Bernal on 03-22-2025 Albumin/Globulin [Mass ratio] 1.3 {ratio} 0.9-2.4 [facility] Serum or plasma alkaline dameon sphatase measurementOrdered By: Carlos Bernal on 03-22-2025 ALP [Catalytic activity/Vol] 84 U/L 35-104 [facility] Serum or plasma calcium charlene urement (mass/volume)Ordered By: Carlos Bernal on 03-22-2025 Calcium [Mass/Vol] 9.5 mg/dL 7.6-11.0 [facility] Serum or plasma urea nitroge n measurement (mass/volume)Ordered By: Carlos Bernal on 03-22-2025 Urea nitrogen [Mass/Vol] 15 mg/dL 4- [facility] Sodium levelOrdered By: Pedro Bernal on 03-22-2025 Sodium [Moles/Vol] 136 mmol/L 133-145 [facility] Total proteinOrdered By: Scot Bernal on 03-22-2025 Protein [Mass/Vol] 7.3 g/dL 5.9-8.4 [facility] White blood cell (WBC) count Ordered By: Carlos Bernal on 03-22-2025 WBC (Bld) [#/Vol] 6.5 10*3/uL 4.4-11.0 [facility] Hemoglobin A1con 02-27-2025 HbA1c (Bld) [Mass fraction] 5.6 % Normal <=5.6 [facility] Comment on above: Order Comment: Order Date: 02/27/25Order Info: [id number] - A1C Result Comment: Norm al < 5.7 % Prediabetic 5.7 - 6.4 % Diabetic >or= 6.5 % Please note range changes. Performed By: #### L 501.9985, L501.9520 ####[facility] [address] [place], [address] Hemoglobin A1c percentageOrd ered By: Lela Interiano on 02-27-2025 HbA1c (Bld) [Mass fraction] 5.6 % <5.7 [facility] Comment on above: Normal < 5.7 % Predi abetic 5.7 - 6.4 % Diabetic >or= 6.5 % Please note range changes. TSH DL <= 0.005 mIU/L QnOrde red By: Lela Interiano on 02-27-2025 TSH Qn 0.144 uIU/mL Low 0.300-4.200 [facility] Thyroid Stim Hormone (TSH)on 02-27-2025 TSH 0.144 uIU/mL Low 0.300-4.200 [facility] Comment on above: Order Comment: Order Date: 02/27/25Order Info: [id number] - TSH Performed By: #### L 501.9985, L501.9520 ####[facility] [address] [place], [place], [address] Stress Reporton 02-07-2025 Stress Report Normal [facility] Echo Completeon 02-03-2025 Echo Complete Normal [facility] 12 Lead EKG performed by [facility] on 01-11-2025 12 Lead EKG performed by [facility] Normal [facility] Cardiology Visit Reporton Cardiology Visit Report Normal [facility] TSH DL <= 0.005 mIU/L QnOrde red By: Paola Corona on 12-20-2024 Thyroid Stimulating Hormone (TSH) 0.321 uIU/mL 0.300-4.200 [facility] TSH Qn 0.321 uIU/mL 0.300-4.200 [facility] Thyroid Stim Hormone (TSH)on 12-20-2024 TSH 0.321 uIU/mL Normal 0.300-4.200 [facility] Comment on above: Order Comment: Order Date: 10/25/24Order Info: [id number] - TSH Performed By: #### L 501.9520 ####[facility] [address] [place], [place], [address] Absolute neutrophil countOrd ered By: Paola Corona on 10-24-2024 Neutrophils (Bld) [#/Vol] 7.7 10*3/uL 2.0-7.7 [facility] Albumin to globulin ratioOrd ered By: Paola Corona on 10-24-2024 Albumin/Globulin [Mass ratio] 1.0 {ratio} 0.9-2.4 [facility] Basophil percentageOrdered B y: Paola Corona on 10-24-2024 Basophils/100 WBC (Bld) 0.5 % 0-1 [facility] Bilirubin, totalOrdered By: Paola Corona on 10-24-2024 Bilirubin [Mass/Vol] 0.20 mg/dL 0.20-1.00 [facility] Comment on above: For patients on eltr ombopag therapy, use of Dimension [place] TBIL is not recommended. Blood urea nitrogen (BUN)/cr eatinine ratioOrdered By: Paola Corona on 10-24-2024 Urea nitrogen/Creatinine [Mass ratio] 17.8 mg/mg 10- [facility] CBC W/Diff, Automatedon 10-12 Absolute Lymph 1.01 X10 3/uL Normal 0.83-4.51 [facility] Comment on above: Performed By: #### L 501.9520, L500.4050, L100.0100 ####[facility] [address] [place], [address] Absolute Neut 7.7 X10 3/uL Normal 2.0-7.7 [facility] Comment on above: Performed By: #### L 501.9520, L500.4050, L100.0100 ####[facility] [address] [place], [address] Basophils/100 WBC (Bld) 0.5 % Normal 0-1 [facility] Comment on above: Performed By: #### L 501.9520, L500.4050, L100.0100 ####[facility] [address] [place], [address] Eosinophils/100 WBC (Bld) 0.4 % Normal 0-5 [facility] Comment on above: Performed By: #### L 501.9520, L500.4050, L100.0100 ####[facility] [address] [place], [address] Erythrocyte distribution width (RBC) [Ratio] 12.0 % Normal 11.6-14.6 [facility] Comment on above: Performed By: #### L 501.9520, L500.4050, L100.0100 ####[facility] [address] [place], [address] Hematocrit (Bld) [Volume fraction] 37.3 % Normal 37-47 [facility] Comment on above: Performed By: #### L 501.9520, L500.4050, L100.0100 ####[facility] [address] [place], [address] Hemoglobin (Bld) [Mass/Vol] 12.2 g/dL Normal 12.0-15.0 [facility] Comment on above: Performed By: #### L 501.9520, L500.4050, L100.0100 ####[facility] [address] [place], [address] IG% 0.300 Normal 0.0-0.9 [facility] Comment on above: Result Comment: IG% - Immature Granulocytes (promyelocytes, myelocytes andmetamyelocytes) > 1% indicates that a LEFT SHIFT is Present. Performed By: #### L 501.9520, L500.4050, L100.0100 ####[facility] [address] [place], [address] Lymphocytes/100 WBC (Bld) 10.6 % Low 19-41 [facility] Comment on above: Performed By: #### L 501.9520, L500.4050, L100.0100 ####[facility] [address] [place], [address] MCH (RBC) [Entitic mass] 30.0 pg Normal 27.0-32.0 [facility] Comment on above: Performed By: #### L 501.9520, L500.4050, L100.0100 ####[facility] [address] [place], [address] MCHC (RBC) [Mass/Vol] 32.7 g/dL Normal 32-36 [facility] Comment on above: Performed By: #### L 501.9520, L500.4050, L100.0100 ####[facility] [address] [place], [address] MCV (RBC) [Entitic vol] 91.6 fL Normal 81-99 [facility] Comment on above: Performed By: #### L 501.9520, L500.4050, L100.0100 ####[facility] [address] [place], [address] Monocytes/100 WBC (Bld) 7.9 % Normal 0-10 [facility] Comment on above: Performed By: #### L 501.9520, L500.4050, L100.0100 ####[facility] [address] [place], [address] Neutrophils/100 WBC (Bld) 80.3 % High 47-70 [facility] Comment on above: Performed By: #### L 501.9520, L500.4050, L100.0100 ####[facility] [address] [place], [address] Nucleated RBC (Bld) [#/Vol] 0 10*3/uL Normal 0-5 [facility] Comment on above: Performed By: #### L 501.9520, L500.4050, L100.0100 ####[facility] [address] [place], [address] Platelet mean volume (Bld) [Entitic vol] 11.5 fL Normal 6.2-12.0 [facility] [facility] Comment on above: Performed By: #### L 501.9520, L500.4050, L100.0100 ####[facility] [address] [place], [address] Platelets (Bld) [#/Vol] 296 10*3/uL Normal 150-450 [facility] Comment on above: Performed By: #### L [id number], [id number], L100.0100 ####[facility] [address] [place], [address] RBC (Bld) [#/Vol] 4.07 10*6/uL Low 4.2-5.4 [facility] Comment on above: Performed By: #### L 501.9520, [id number], L100.0100 ####[facility] [address] [place], [address] RDW SD 40.2 fl Normal 35.1-43.9 [facility] Comment on above: Performed By: #### L 501.9520, [id number], L100.0100 ####[facility] [address] [place], [address] WBC (Bld) [#/Vol] 9.6 10*3/uL Normal 4.4-11.0 [facility] Comment on above: Performed By: #### L 501.9520, [id number], L100.0100 ####[facility] [address] [place], [address] Carbon dioxide measurementOr dered By: Paola Corona on 10-24-2024 CO2 [Moles/Vol] 26.0 mmol/L 21.0-32.0 [facility] Chloride measurementOrdered By: Paola Corona on 10-24-2024 Chloride [Moles/Vol] 106 mmol/L 98-107 [facility] Comprehensive Metabolic Prof ilon 10-24-2024 Albumin [Mass/Vol] 3.9 g/dL Normal 3.2-5.0 [facility] Comment on above: Performed By: #### L 501.9520, [id number], L100.0100 ####[facility] [address] [place], [address] Albumin/Globulin [Mass ratio] 1.0 {ratio} Normal 0.9-2.4 [facility] Comment on above: Performed By: #### L 501.9520, [id number], L100.0100 ####[facility] [address] [place], [address] ALK P 76 U/L Normal 45-117 [facility] Comment on above: Performed By: #### L 501.9520, [id number], L100.0100 ####[facility] [address] [place], [address] ALT [Catalytic activity/Vol] 27 U/L Normal 13-56 [facility] Comment on above: Performed By: #### L 501.9520, [id number], L100.0100 ####[facility] [address] [place], [address] AST [Catalytic activity/Vol] 26 U/L Normal 15-37 [facility] Comment on above: Performed By: #### L 501.9520, [id number], L100.0100 ####[facility] [address] [place], [address] Bilirubin [Mass/Vol] 0.20 mg/dL Normal 0.20-1.00 [facility] Comment on above: Result Comment: For patients on eltrombopag therapy, use of Dimension [place] TBIL is not recommended. Performed By: #### L 501.9520, [id number], L100.0100 ####[facility] [address] [place], [address] BUN/CRE 17.8 RATIO Normal 10-20 [facility] Comment on above: Performed By: #### L 501.9520, [id number], L100.0100 ####[facility] [address] [place], [address] CA,Total 9.4 mg/dL Normal 8.5-10.1 [facility] Comment on above: Performed By: #### L 501.9520, [id number], L100.0100 ####[facility] [address] [place], [address] Chloride [Moles/Vol] 106 mmol/L Normal 98-107 [facility] Comment on above: Performed By: #### L 501.9520, [id number], L100.0100 ####[facility] [address] [place], [address] CO2 [Moles/Vol] 26.0 mmol/L Normal 21.0-32.0 [facility] Comment on above: Performed By: #### L 501.9520, [id number], L100.0100 ####[facility] [address] [place], [address] Creatinine [Mass/Vol] 0.73 mg/dL Normal 0.55-1.02 [facility] Comment on above: Result Comment: The validity of the calculated GFR GFRAA in patients over70 years has not been determined. Clinical correlation isessential. Performed By: #### L 501.9520, L500.4050, L100.0100 ####[facility] [address] [place], [address] EST GFR - AA 98 mL/min Normal >60 [facility] Comment on above: Result Comment: Afri can Afghan GFR Calc Performed By: #### L 501.9520, [id number], L100.0100 ####[facility] [address] [place], [address] GAP 5 Normal 5-15 [facility] Comment on above: Performed By: #### L 501.9520, [id number], L100.0100 ####[facility] [address] [place], [address] GFR/1.73 sq M.predicted among non-blacks MDRD (S/P/Bld) [Vol rate/Area] 81 mL/min/{1.73_m2} Normal >60 [facility] Comment on above: Result Comment: Non- GFR Calc Performed By: #### L 501.9520, L500.4050, L100.0100 ####[facility] [address] [place], [address] Globulin (S) [Mass/Vol] 4.1 g/dL Normal 2.2-4.2 [facility] Comment on above: Performed By: #### L 501.9520, [id number], L100.0100 ####[facility] [address] [place], [address] Glucose [Mass/Vol] 104 mg/dL Normal 74-106 [facility] Comment on above: Result Comment: Fast ing Glucose result from 100 to 125 mg/dLsuggests IMPAIRED HOMEOSTASIS per A.D.A. criteria. Performed By: #### L 501.9520, L500.4050, L100.0100 ####[facility] [address] [place], [address] Potassium [Moles/Vol] 3.4 mmol/L Low 3.5-5.1 [facility] Comment on above: Performed By: #### L 501.9520, [id number], L100.0100 ####[facility] [address] [place], [address] Sodium [Moles/Vol] 136 mmol/L Normal 136-145 [facility] Comment on above: Performed By: #### L 501.9520, [id number], L100.0100 ####[facility] [address] [place], [address] T PROT 8.0 g/dL Normal 6.4-8.2 [facility] Comment on above: Performed By: #### L 501.9520, L500.4050, L100.0100 ####[facility] [address] [place], [address] Urea nitrogen [Mass/Vol] 13 mg/dL Normal 7-18 [facility] Comment on above: Performed By: #### L 501.9520, L500.4050, L100.0100 ####[facility] [address] [place], [address] Eosinophil percentageOrdered By: Paola Corona on 10-24-2024 Eosinophils/100 WBC (Bld) 0.4 % 0-5 [facility] Erythrocyte distribution wid th ratioOrdered By: Paola Corona on 10-24-2024 Erythrocyte distribution width (RBC) [Ratio] 12.0 % 11.6-14.6 [facility] Erythrocyte distribution wid th standard deviationOrdered By: Paola Corona on 10-24-2024 Erythrocyte distribution width (RBC) [Entitic vol] 40.2 fL 35.1-43.9 [facility] Estimated glomerular filtrat ion rate (GFR) AmericanOrdered By: Paola Corona on 10-24-2024 Estimated GFR (MDRD) Amer 98 mL/min >60 [facility] Comment on above: GFR Calc Glomerular filtration rate ( GFR) estimationOrdered By: Paola Corona on 10-24-2024 Estimated GFR (MDRD) Non-Af Amer 81 mL/min >60 [facility] Comment on above: Non- GFR Calc Glucose measurementOrdered B y: Paola Corona on 10-24-2024 Glucose [Mass/Vol] 104 mg/dL 74-106 [facility] Comment on above: Fasting Glucose resu lt from 100 to 125 mg/dL suggests IMPAIRED HOMEOSTASIS per A.D.A. criteria. Hematocrit Auto (Bld) [Volum e fraction]Ordered By: Paola Corona on 10-24-2024 Hematocrit (Bld) [Volume fraction] 37.3 % 37-47 [facility] Hemoglobin measurementOrdere d By: Paola Corona on 10-24-2024 Hemoglobin (Bld) [Mass/Vol] 12.2 g/dL 12.0-15.0 [facility] Immature granulocytes/100 WB C Auto (Bld)Ordered By: Paola Corona on 10-24-2024 Immature granulocytes/100 WBC (Bld) 0.300 % 0.0-0.9 [facility] Comment on above: IG% - Immature Granu locytes (promyelocytes, myelocytes and metamyelocytes) > 1% indicates that a LEFT SHIFT is Present. Laboratory - Chemistry and C hemistry - challengeOrdered By: Paola Corona on 10-24-2024 AST [Catalytic activity/Vol] 26 U/L 15-37 [facility] Lymphocytes Auto (Unsp spec) [#/Vol]Ordered By: Paola Corona on 10-24-2024 Lymphocytes (Bld) [#/Vol] 1.01 10*3/uL 0.83-4.51 [facility] Lymphocytes/100 WBC Auto (Un sp spec)Ordered By: Paola Corona on 10-24-2024 Lymphocytes/100 WBC (Bld) 10.6 % Low 19-41 [facility] MCV (mean corpuscular volume ) determinationOrdered By: Paola Corona on 10-24-2024 MCV (RBC) [Entitic vol] 91.6 fL 81-99 [facility] Mean corpuscular hemoglobin (MCH) determinationOrdered By: Paola Corona on 10-24-2024 MCH (RBC) [Entitic mass] 30.0 pg 27.0-32.0 [facility] Mean corpuscular hemoglobin concentration (MCHC) determinationOrdered By: Paola Corona on 10-24-2024 MCHC (RBC) [Mass/Vol] 32.7 g/dL 32-36 [facility] Mean platelet volume determi nationOrdered By: Paola Corona on 10-24-2024 Platelet mean volume (Bld) [Entitic vol] 11.5 fL 6.2-12.0 [facility] Monocyte percentageOrdered B y: Paola Corona on 10-24-2024 Monocytes/100 WBC (Bld) 7.9 % 0-10 [facility] Neutrophil percentageOrdered By: Paola Corona on 10-24-2024 Neutrophils/100 WBC (Bld) 80.3 % High 47-70 [facility] Nucleated red blood cell per centageOrdered By: Paola Corona on 10-24-2024 Nucleated RBC/100 WBC (Bld) [Ratio] 0 % 0-5 [facility] Platelet countOrdered By: Guerrero Corona on 10-24-2024 Platelets (Bld) [#/Vol] 296 10*3/uL 150-450 [facility] Potassium measurementOrdered By: Paola Corona on 10-24-2024 Potassium [Moles/Vol] 3.4 mmol/L Low 3.5-5.1 [facility] RBC Auto (Bld) [#/Vol]Ordere d By: Paola Corona on 10-24-2024 RBC (Bld) [#/Vol] 4.07 10*6/uL Low 4.2-5.4 [facility] Serum anion gap measurementO rdered By: Paola Corona on 10-24-2024 Anion gap [Moles/Vol] 5 mmol/L 5-15 [facility] Serum globulin measurementOr dered By: Paola Corona on 10-24-2024 Globulin (S) [Mass/Vol] 4.1 g/dL 2.2-4.2 [facility] Serum or plasma alanine thompson otransferase (ALT) measurementOrdered By: Paola Corona on 10-24-2024 ALT [Catalytic activity/Vol] 27 U/L 13-56 [facility] Serum or plasma albumin charlene urement (mass/volume)Ordered By: Paola Corona on 10-24-2024 Albumin [Mass/Vol] 3.9 g/dL 3.2-5.0 [facility] Serum or plasma alkaline dameon sphatase measurementOrdered By: Paola Corona on 10-24-2024 ALP [Catalytic activity/Vol] 76 U/L 45-117 [facility] Serum or plasma calcium charlene urement (mass/volume)Ordered By: Paola Corona on 10-24-2024 Calcium [Mass/Vol] 9.4 mg/dL 8.5-10.1 [facility] Serum or plasma creatinine m easurement (mass/volume)Ordered By: Paola Corona on 10-24-2024 Creatinine [Mass/Vol] 0.73 mg/dL 0.55-1.02 [facility] Comment on above: The validity of the calculated GFR & GFRAA in patients over 70 years has not been determined. Clinical correlation is essential. Serum or plasma urea nitroge n measurement (mass/volume)Ordered By: Paola Corona on 10-24-2024 Urea nitrogen [Mass/Vol] 13 mg/dL 7-18 [facility] Sodium levelOrdered By: Paola Corona on 10-24-2024 Sodium [Moles/Vol] 136 mmol/L 136-145 [facility] TSH QnOrdered By: Paola hopkins on 10-24-2024 Thyroid Stimulating Hormone (TSH) 6.580 uIU/mL High 0.358-3.740 [facility] Thyroid Stim Hormone (TSH)on 10-24-2024 TSH 6.580 uIU/mL High 0.358-3.740 [facility] Comment on above: Performed By: #### L 501.9520, L500.4050, L100.0100 ####[facility] [address] [place], [place], [id number] Total proteinOrdered By: Paola Corona on 10-24-2024 Protein [Mass/Vol] 8.0 g/dL 6.4-8.2 [facility] White blood cell (WBC) count Ordered By: Paola Corona on 10-24-2024 WBC (Bld) [#/Vol] 9.6 10*3/uL 4.4-11.0 [facility] Urgent Care Visit Reporton 0 10-21-2024 Urgent Care Visit Report Normal [facility] Culture, urineOrdered By: Damaris Parrish on 02-04-2024 Bacteria identified Cx Nom (U) Streptococcus mitis/ oralis [facility] Laboratory - Chemistry and C hemistry - challengeon 02-04-2024 Bilirubin Ql (U) Negative [facility] Glucose Ql (U) Negative [facility] Ketones Ql (U) Negative [facility] pH (U) 6.0 [pH] [facility] Specific gravity (U) [Rel density] 1.010 [facility] Urobilinogen (U) [Mass/Vol] Negative [facility] Laboratory - Hematology and Cell countson 02-04-2024 Hemoglobin Ql (U) Negative [facility] Laboratory - Specimen inform ationon 02-04-2024 Clarity (U) Clear [facility] Color (U) YELLOW [facility] Laboratory - Urinalysison Nitrite Ql (U) Negative [facility] Protein Ql (U) Negative [facility] No Panel Informationon 02-03 Urine Leukocytes Negatve [facility] Urine Non-Hemolyzed Blood [facility] Absolute lymphocyte countOrd ered By: Carlos Bernal on 03-30-2023 Lymphocytes Auto (Unsp spec) [#/Vol] 0.90 10*3/uL 0.83-4.51 [facility] Basophil percentageOrdered B y: Carlos Bernal on 03-30-2023 Basophils/100 WBC (Bld) 0.5 % 0-1 [facility] Bilirubin [Mass/Vol] 0.30 mg/dL 0.20-1.00 [facility] Comment on above: For patients on eltr ombopag therapy, use of Dimension [place] TBIL is not recommended. Chloride [Moles/Vol] 105 mmol/L 98-107 [facility] Eosinophils/100 WBC (Bld) 1.0 % 0-5 [facility] Glucose [Mass/Vol] 100 mg/dL 74-106 [facility] Comment on above: Fasting Glucose resu lt from 100 to 125 mg/dL suggests IMPAIRED HOMEOSTASIS per A.D.A. criteria. LDH [Catalytic activity/Vol] 287 U/L 84-246 [facility] Neutrophils (Bld) [#/Vol] 2.7 10*3/uL 2.0-7.7 [facility] Neutrophils/100 WBC (Bld) 68.4 % 47-70 [facility] Potassium [Moles/Vol] 4.1 mmol/L 3.5-5.1 [facility] Protein [Mass/Vol] 8.0 g/dL 6.4-8.2 [facility] Sodium [Moles/Vol] 136 mmol/L 136-145 [facility] WBC (Bld) [#/Vol] 3.9 10*3/uL 4.4-11.0 [facility] Blood erythrocytes count (nu mber/volume)Ordered By: Carlos Bernal on 03-30-2023 RBC (Bld) [#/Vol] 3.98 10*6/uL 4.2-5.4 [facility] Blood hemoglobin measurement (mass/volume)Ordered By: Carlos Bernal on 03-30-2023 Hemoglobin (Bld) [Mass/Vol] 11.8 g/dL 12.0-15.0 [facility] Blood lymphocytes/100 leukoc ytesOrdered By: [facility] on 03-30-2023 Lymphocytes/100 WBC (Bld) 23.1 % 19-41 [facility] Blood monocytes/100 leukocyt esOrdered By: [facility] on 03-30-2023 Monocytes/100 WBC (Bld) 6.7 % 0-10 [facility] Blood platelet mean volumeOr dered By: Carlos Greenberg on 03-30-2023 Platelet mean volume (Bld) [Entitic vol] 11.3 fL 6.2-12.0 [facility] Determination of erythrocyte mean corpuscular volume (MCV)Ordered By: [facility] on 03-30-2023 MCV (RBC) [Entitic vol] 93.7 fL 81-99 [facility] Hematocrit Auto (Bld) [Volum e fraction]Ordered By: Carlos Dionicio on 03-30-2023 Hematocrit (Bld) [Volume fraction] 37.3 % 37-47 [facility] Laboratory - Chemistry and C hemistry - challengeOrdered By: Deland Dionicio on 03-30-2023 ALP [Catalytic activity/Vol] 62 U/L 45-117 [facility] ALT [Catalytic activity/Vol] 35 U/L 13-56 [facility] CO2 [Moles/Vol] 26.0 mmol/L 21.0-32.0 [facility] Globulin (S) [Mass/Vol] 3.9 g/dL 2.2-4.2 [facility] Urea nitrogen/Creatinine [Mass ratio] 20.2 mg/mg 10-20 [facility] Laboratory - Hematology and Cell countsOrdered By: Deland Dionicio on 03-30-2023 Erythrocyte distribution width (RBC) [Entitic vol] 42.2 fL 35.1-43.9 [facility] Erythrocyte distribution width (RBC) [Ratio] 12.3 % 11.6-14.6 [facility] Immature granulocytes/100 WBC (Bld) 0.300 % 0.0-0.9 [facility] Comment on above: IG% - Immature Granu locytes (promyelocytes, myelocytes and metamyelocytes) > 1% indicates that a LEFT SHIFT is Present. MCH (RBC) [Entitic mass] 29.6 pg 27.0-32.0 [facility] Nucleated RBC/100 [facility] (Bld) [[facility]] 0 [facility] [Mass/Vol]Or dered By: Carlos Bernal on 03-30-2023 MCHC (RBC) [Mass/Vol] 31.6 g/dL 32-36 [facility] No Panel InformationOrdered By: Carlos Bernal on 03-30-2023 CA 125 Antigen 21.8 U/mL 0.0-38.1 [facility] Comment on above: [employer] El ectrochemiluminescence Immunoassay(ECLIA)Values obtained with different assay methods or kits cannotbe used interchangeably. Results cannot be interpreted asabsolute evidence of the presence or absence of malignantdisease.Performed at: [employer] [address] [id number] Director: Guero Smyth PhD, Phone: [phone] Estimated Creatinine Clearance Calc 44.61 ml/min [facility] Estimated GFR (MDRD) Amer 78 mL/min >60 [facility] Comment on above: GFR Calc Estimated GFR (MDRD) Non-Af Amer 64 mL/min >60 [facility] Comment on above: Non- GFR Calc Reactive Lymphocytes RARE [facility] Platelets bldOrdered By: Scot Bernal on 03-30-2023 Platelets (Bld) [#/Vol] 237 10*3/uL 150-450 [facility] Serum or plasma albumin charlene urement (mass/volume)Ordered By: Carlos Bernal on 03-30-2023 Albumin [Mass/Vol] 4.1 g/dL 3.2-5.0 [facility] Serum or plasma albumin/glob ulin mass ratioOrdered By: Carlos Bernal on 03-30-2023 Albumin/Globulin [Mass ratio] 1.1 {ratio} 0.9-2.4 [facility] Serum or plasma calcium charlene urement (mass/volume)Ordered By: Carlos Bernal on 03-30-2023 Calcium [Mass/Vol] 9.8 mg/dL 8.5-10.1 [facility] Serum or plasma creatinine m easurement (mass/volume)Ordered By: Carlos Bernal on 03-30-2023 Creatinine [Mass/Vol] 0.89 mg/dL 0.55-1.02 [facility] Comment on above: The validity of the calculated GFR & GFRAA in patients over 70 years has not been determined. Clinical correlation is essential. Serum or plasma urea nitroge n measurement (mass/volume)Ordered By: Carlos Bernal on 03-30-2023 Urea nitrogen [Mass/Vol] 18 mg/dL 7-18 [facility] Thin prep Papanicolaou smear with manual screeningOrdered By: Carlos Bernal on 03-30-2023 Thin prep Papanicolaou smear with manual screening 33 U/L 15-37 [facility] Thin prep Papanicolaou smear with manual screening 5 5-15 [facility] Absolute lymphocyte countOrd ered By: Dr. Bernal on 03-16-2023 Lymphocytes Auto (Unsp spec) [#/Vol] 0.80 10*3/uL 0.83-4.51 [facility] Basophil percentageOrdered B y: Dr. Bernal on 03-16-2023 Basophils/100 WBC (Bld) 0.8 % 0-1 [facility] Bilirubin [Mass/Vol] 0.40 mg/dL 0.20-1.00 [facility] Comment on above: For patients on eltr ombopag therapy, use of Dimension [place] TBIL is not recommended. Chloride [Moles/Vol] 108 mmol/L 98-107 [facility] Eosinophils/100 WBC (Bld) 1.8 % 0-5 [facility] Glucose [Mass/Vol] 90 mg/dL 74-106 [facility] LDH [Catalytic activity/Vol] 300 U/L 84-246 [facility] Neutrophils (Bld) [#/Vol] 3.6 10*3/uL 2.0-7.7 [facility] Neutrophils/100 WBC (Bld) 72.1 % 47-70 [facility] Potassium [Moles/Vol] 3.3 mmol/L 3.5-5.1 [facility] Protein [Mass/Vol] 8.4 g/dL 6.4-8.2 [facility] Sodium [Moles/Vol] 140 mmol/L 136-145 [facility] WBC (Bld) [#/Vol] 4.9 10*3/uL 4.4-11.0 [facility] Blood erythrocytes count (nu mber/volume)Ordered By: Dr. Bernal on 03-16-2023 RBC (Bld) [#/Vol] 4.04 10*6/uL 4.2-5.4 [facility] Blood hemoglobin measurement (mass/volume)Ordered By: Dr. Bernal on 03-16-2023 Hemoglobin (Bld) [Mass/Vol] 12.0 g/dL 12.0-15.0 [facility] Blood lymphocytes/100 leukoc ytesOrdered By: Dr. Bernal on 03-16-2023 Lymphocytes/100 WBC (Bld) 16.2 % 19-41 [facility] Blood monocytes/100 leukocyt esOrdered By: Dr. Bernal on 03-16-2023 Monocytes/100 WBC (Bld) 8.9 % 0-10 [facility] Blood platelet mean volumeOr dered By: Dr. Bernal on 03-16-2023 Platelet mean volume (Bld) [Entitic vol] 12.9 fL 6.2-12.0 [facility] Determination of erythrocyte mean corpuscular volume (MCV)Ordered By: Dr. Bernal on 03-16-2023 MCV (RBC) [Entitic vol] 95.3 fL 81-99 [facility] Hematocrit Auto (Bld) [Volum e fraction]Ordered By: Dr. Bernal on 03-16-2023 Hematocrit (Bld) [Volume fraction] 38.5 % 37-47 [facility] Laboratory - Chemistry and C hemistry - challengeOrdered By: Dr. Bernal on 03-16-2023 ALP [Catalytic activity/Vol] 61 U/L 45-117 [facility] ALT [Catalytic activity/Vol] 30 U/L 13-56 [facility] CO2 [Moles/Vol] 26.0 mmol/L 21.0-32.0 [facility] Globulin (S) [Mass/Vol] 4.4 g/dL 2.2-4.2 [facility] Urea nitrogen/Creatinine [Mass ratio] 22.6 mg/mg 10-20 [facility] Laboratory - Hematology and Cell countsOrdered By: Dr. Bernal on 03-16-2023 Erythrocyte distribution width (RBC) [Entitic vol] 44.4 fL 35.1-43.9 [facility] Erythrocyte distribution width (RBC) [Ratio] 12.7 % 11.6-14.6 [facility] Immature granulocytes/100 WBC (Bld) 0.200 % 0.0-0.9 [facility] Comment on above: IG% - Immature Granu locytes (promyelocytes, myelocytes and metamyelocytes) > 1% indicates that a LEFT SHIFT is Present. MCH (RBC) [Entitic mass] 29.7 pg 27.0-32.0 [facility] Nucleated RBC/100 WBC (Bld) [Ratio] 0 % 0-5 [facility] MCHC Auto (RBC) [Mass/Vol]Or dered By: Dr. Bernal on 03-16-2023 MCHC (RBC) [Mass/Vol] 31.2 g/dL 32-36 [facility] No Panel InformationOrdered By: Dr. Bernal on 03-16-2023 CA 125 Antigen 21.6 U/mL 0.0-38.1 [facility] Comment on above: [facility] El ectrochemiluminescence Immunoassay(ECLIA)Values obtained with different assay methods or kits cannotbe used interchangeably. Results cannot be interpreted asabsolute evidence of the presence or absence of malignantdisease.Performed at: [place] [id number] Director: Guero Smyth PhD, Phone: [phone] Estimated GFR (MDRD) Amer 89 mL/min >60 [facility] Comment on above: GFR Calc Estimated GFR (MDRD) Non-Af Amer 73 mL/min >60 [facility] Comment on above: Non- GFR Calc Platelets bldOrdered By: Dr. Bernal on 03-16-2023 Platelets (Bld) [#/Vol] 216 10*3/uL 150-450 [facility] Serum or plasma albumin charlene urement (mass/volume)Ordered By: Dr. Bernal on 03-16-2023 Albumin [Mass/Vol] 4.0 g/dL 3.2-5.0 [facility] Serum or plasma albumin/glob ulin mass ratioOrdered By: Dr. Bernal on 03-16-2023 Albumin/Globulin [Mass ratio] 0.9 {ratio} 0.9-2.4 [facility] Serum or plasma calcium charlene urement (mass/volume)Ordered By: Dr. Bernal on 03-16-2023 Calcium [Mass/Vol] 9.9 mg/dL 8.5-10.1 [facility] Serum or plasma creatinine m easurement (mass/volume)Ordered By: Dr. Bernal on 03-16-2023 Creatinine [Mass/Vol] 0.80 mg/dL 0.55-1.02 [facility] Comment on above: The validity of the calculated GFR & GFRAA in patients over 70 years has not been determined. Clinical correlation is essential. Serum or plasma urea nitroge n measurement (mass/volume)Ordered By: Dr. Bernal on 03-16-2023 Urea nitrogen [Mass/Vol] 18 mg/dL 7-18 [facility] Thin prep Papanicolaou smear with manual screeningOrdered By: Dr. Bernal on 03-16-2023 Thin prep Papanicolaou smear with manual screening 31 U/L 15-37 [facility] Thin prep Papanicolaou smear with manual screening 6 5-15 [facility] Absolute lymphocyte counton 06-05-2022 Lymphocytes Auto (Unsp spec) [#/Vol] 1.18 10*3/uL 0.83-4.51 [facility] Work Phone: Basophil percentageon 2021 Basophil percentage 0 SEEN /hpf 0-5 [facility] Work Phone: Basophils/100 WBC (Bld) 0.4 % 0-1 [facility] Work Phone: Bilirubin [Mass/Vol] 0.70 mg/dL 0.20-1.00 [facility] Work Phone: Comment on above: For patients on eltr ombopag therapy, use of Dimension [place] TBIL is not recommended. Chloride [Moles/Vol] 108 mmol/L 98-107 [facility] Work Phone: Eosinophils/100 WBC (Bld) 1.5 % 0-5 [facility] Work Phone: Glucose [Mass/Vol] 113 mg/dL 74-106 [facility] Work Phone: Comment on above: Fasting Glucose resu lt from 100 to 125 mg/dL suggests IMPAIRED HOMEOSTASIS per A.D.A. criteria. Lactate [Moles/Vol] 1.6 mmol/L 0.4-2.0 [facility] Work Phone: Neutrophils (Bld) [#/Vol] 3.1 10*3/uL 2.0-7.7 [facility] Work Phone: [phone] Neutrophils/100 WBC (Bld) 65.7 % 47-70 [facility] Work Phone: Potassium [Moles/Vol] 3.3 mmol/L 3.5-5.1 [facility] Work Phone: [phone] Protein [Mass/Vol] 7.6 g/dL 6.4-8.2 [facility] Work Phone: Sodium [Moles/Vol] 141 mmol/L 136-145 [facility] Work Phone: WBC (Bld) [#/Vol] 4.8 10*3/uL 4.4-11.0 [facility] Work Phone: Bilirubin Test strip Ql (U)o n 06-05-2022 Bilirubin Ql (U) Negative Negative [facility] Work Phone: Blood erythrocytes count (nu mber/volume)on 06-05-2022 RBC (Bld) [#/Vol] 4.09 10*6/uL 4.2-5.4 [facility] Work Phone: Blood hemoglobin measurement (mass/volume)on 06-05-2022 Hemoglobin (Bld) [Mass/Vol] 12.3 g/dL 12.0-15.0 [facility] Work Phone: Blood lymphocytes/100 leukoc yteson 06-05-2022 Lymphocytes/100 WBC (Bld) 24.8 % 19-41 [facility] Work Phone: Blood monocytes/100 leukocyt eson 06-05-2022 Monocytes/100 WBC (Bld) 7.6 % 0-10 [facility] Work Phone: [phone] Blood platelet mean volumeon 06-05-2022 Platelet mean volume (Bld) [Entitic vol] 11.6 fL 6.2-12.0 [facility] Work Phone: Determination of erythrocyte mean corpuscular volume (MCV)on 06-05-2022 MCV (RBC) [Entitic vol] 91.2 fL 81-99 [facility] Work Phone: Hematocrit Auto (Bld) [Volum e fraction]on 06-05-2022 Hematocrit (Bld) [Volume fraction] 37.3 % 37-47 [facility] Work Phone: INR in Blood by Coagulation assayon 06-05-2022 INR Coag (Bld) [Relative time] 1.0 {INR} [facility] Work Phone: Ketones Test strip Ql (U)on 06-05-2022 Ketones Ql (U) 5 mg/dl Negative [facility] Work Phone: Laboratory - Chemistry and C hemistry - challengeon 06-05-2022 ALP [Catalytic activity/Vol] 72 U/L 45-117 [facility] Work Phone: ALT [Catalytic activity/Vol] 24 U/L 13-56 [facility] Work Phone: CO2 [Moles/Vol] 24.0 mmol/L 21.0-32.0 [facility] Work Phone: Globulin (S) [Mass/Vol] 3.4 g/dL 2.2-4.2 [facility] Work Phone: Urea nitrogen/Creatinine [Mass ratio] 13.2 mg/mg 10-20 [facility] Work Phone: Laboratory - Coagulationon 0 06-05-2022 aPTT Coag (Bld) [Time] 24.3 s 24.1-36.2 [facility] Work Phone: PT Coag (PPP) [Time] 12.7 s 11.7-14.9 [facility] Work Phone: Laboratory - Hematology and Cell countson 06-05-2022 Erythrocyte distribution width (RBC) [Entitic vol] 39.8 fL 35.1-43.9 [facility] Work Phone: Erythrocyte distribution width (RBC) [Ratio] 11.9 % 11.6-14.6 [facility] Work Phone: Immature granulocytes/100 WBC (Bld) 0.000 % 0.0-0.9 [facility] Work Phone: Comment on above: IG% - Immature Granu locytes (promyelocytes, myelocytes and metamyelocytes) > 1% indicates that a LEFT SHIFT is Present. MCH (RBC) [Entitic mass] 30.1 pg 27.0-32.0 [facility] Work Phone: Nucleated RBC/100 WBC (Bld) [Ratio] 0 % 0-5 [facility] Work Phone: MCHC Auto (RBC) [Mass/Vol]on 06-05-2022 MCHC (RBC) [Mass/Vol] 33.0 g/dL 32-36 [facility] Work Phone: Mucus LM Ql (Urine sed)on Mucus Ql (Urine sed) 0 SEEN /hpf [facility] Work Phone: Nitrite Test strip Ql (U)on 06-05-2022 Nitrite Ql (U) Negative Negative [facility] Work Phone: No Panel Informationon 06-05 Estimated Creatinine Clearance Calc 47.26 ml/min [facility] Work Phone: Estimated GFR (MDRD) Amer 84 mL/min >60 [facility] Work Phone: Comment on above: GFR Calc Estimated GFR (MDRD) Non-Af Amer 70 mL/min >60 [facility] Work Phone: Comment on above: Non- GFR Calc Troponin I High Sensitivity 7 pg/mL 3.0-54.0 [facility] Work Phone: Comment on above: Please Note: New Neelima t Units and Gender Specific Reference Ranges. For more information see Policy Stat Procedure [place] High Sensitivity Troponin (TNIH) and attachments. Platelets bldon 06-05-2022 Platelets (Bld) [#/Vol] 228 10*3/uL 150-450 [facility] Work Phone: Protein Test strip Ql (U)on 06-05-2022 Protein Ql (U) Negative Negative [facility] Work Phone: Serum or plasma albumin charlene urement (mass/volume)on 06-05-2022 Albumin [Mass/Vol] 4.2 g/dL 3.2-5.0 [facility] Work Phone: Serum or plasma albumin/glob ulin mass ratioon 06-05-2022 Albumin/Globulin [Mass ratio] 1.2 {ratio} 0.9-2.4 [facility] Work Phone: Serum or plasma calcium charlene urement (mass/volume)on 06-05-2022 Calcium [Mass/Vol] 9.5 mg/dL 8.5-10.1 [facility] Work Phone: Serum or plasma creatinine m easurement (mass/volume)on 06-05-2022 Creatinine [Mass/Vol] 0.84 mg/dL 0.55-1.02 [facility] Work Phone: Comment on above: The validity of the calculated GFR & GFRAA in patients over 70 years has not been determined. Clinical correlation is essential. Serum or plasma urea nitroge n measurement (mass/volume)on 06-05-2022 Urea nitrogen [Mass/Vol] 11 mg/dL 7-18 [facility] Work Phone: Squamous epithelial cells de tection in urine sediment by light microscopyon 06-05-2022 Epithelial cells.squamous LM Ql (Urine sed) 0 SEEN /hpf 5-10 [facility] Work Phone: Thin prep Papanicolaou smear with manual screeningon 06-05-2022 Thin prep Papanicolaou smear with manual screening 24 U/L 15-37 [facility] Work Phone: Thin prep Papanicolaou smear with manual screening 9 5-15 [facility] Work Phone: Urine blood detectionon 05-13 RBC Ql (U) Negative Negative [facility] Work Phone: RBC Ql (U) 0 SEEN /hpf 0-5 [facility] Work Phone: Urine clarityon 06-05-2022 Clarity (U) Clear Clear [facility] Work Phone: Urine color determinationon 06-05-2022 Color (U) Yellow Yellow [facility] Work Phone: Urine glucose detectionon Glucose Ql (U) Normal mg/dl Normal [facility] Work Phone: Urine leukocyte esterase det ection by dipstickon 06-05-2022 Leukocyte esterase Test strip Ql (U) 25 /ul Negative [facility] Work Phone: Urine pHon 06-05-2022 pH (U) 8.0 [pH] 5.0 - 8.0 [facility] Work Phone: Urine sediment bacteria coun t by microscopy (number/high power field)on 06-05-2022 Bacteria LM.HPF (Urine sed) [#/Area] 0 /[HPF] None Seen [facility] Work Phone: Urine specific gravity measu rementon 06-05-2022 Specific gravity (U) [Rel density] 1.015 1.002-1.030 [facility] Work Phone: Urobilinogen Auto test strip Ql (U)on 06-05-2022 Urobilinogen Ql (U) Normal mg/dl Normal [facility] Work Phone: Absolute lymphocyte counton 03-12-2022 Lymphocytes Auto (Unsp spec) [#/Vol] 0.97 10*3/uL 0.83-4.51 [facility] Work Phone: Basophil percentageon 2021 Basophils/100 WBC (Bld) 1.1 % 0-1 [facility] Work Phone: Bilirubin [Mass/Vol] 0.40 mg/dL 0.20-1.00 [facility] Work Phone: Comment on above: For patients on eltr ombopag therapy, use of Dimension [place] TBIL is not recommended. Chloride [Moles/Vol] 108 mmol/L 98-107 [facility] Work Phone: Eosinophils/100 WBC (Bld) 2.9 % 0-5 [facility] Work Phone: Glucose [Mass/Vol] 116 mg/dL 74-106 [facility] Work Phone: Comment on above: Fasting Glucose resu lt from 100 to 125 mg/dL suggests IMPAIRED HOMEOSTASIS per A.D.A. criteria. Neutrophils (Bld) [#/Vol] 2.3 10*3/uL 2.0-7.7 [facility] Work Phone: Neutrophils/100 WBC (Bld) 60.7 % 47-70 [facility] Work Phone: [phone] Potassium [Moles/Vol] 3.7 mmol/L 3.5-5.1 [facility] Work Phone: Protein [Mass/Vol] 7.2 g/dL 6.4-8.2 [facility] Work Phone: [phone] Sodium [Moles/Vol] 140 mmol/L 136-145 [facility] Work Phone: [phone] WBC (Bld) [#/Vol] 3.8 10*3/uL 4.4-11.0 [facility] Work Phone: Blood erythrocytes count (nu mber/volume)on 03-12-2022 RBC (Bld) [#/Vol] 3.65 10*6/uL 4.2-5.4 [facility] Work Phone: Blood hemoglobin measurement (mass/volume)on 03-12-2022 Hemoglobin (Bld) [Mass/Vol] 11.0 g/dL 12.0-15.0 [facility] Work Phone: Blood lymphocytes/100 leukoc yteson 03-12-2022 Lymphocytes/100 WBC (Bld) 25.5 % 19-41 [facility] Work Phone: Blood monocytes/100 leukocyt eson 03-12-2022 Monocytes/100 WBC (Bld) 9.5 % 0-10 [facility] Work Phone: Blood platelet mean volumeon 03-12-2022 Platelet mean volume (Bld) [Entitic vol] 11.0 fL 6.2-12.0 [facility] Work Phone: Determination of erythrocyte mean corpuscular volume (MCV)on 03-12-2022 MCV (RBC) [Entitic vol] 92.6 fL 81-99 [facility] Work Phone: Hematocrit Auto (Bld) [Volum e fraction]on 03-12-2022 Hematocrit (Bld) [Volume fraction] 33.8 % 37-47 [facility] Work Phone: Laboratory - Chemistry and C hemistry - challengeon 03-12-2022 ALP [Catalytic activity/Vol] 84 U/L 45-117 [facility] Work Phone: ALT [Catalytic activity/Vol] 31 U/L 13-56 [facility] Work Phone: CO2 [Moles/Vol] 25.0 mmol/L 21.0-32.0 [facility] Work Phone: Globulin (S) [Mass/Vol] 3.5 g/dL 2.2-4.2 [facility] Work Phone: Urea nitrogen/Creatinine [Mass ratio] 15.7 mg/mg 10-20 [facility] Work Phone: Laboratory - Hematology and Cell countson 03-12-2022 Erythrocyte distribution width (RBC) [Entitic vol] 41.8 fL 35.1-43.9 [facility] Work Phone: Erythrocyte distribution width (RBC) [Ratio] 12.2 % 11.6-14.6 [facility] Work Phone: Immature granulocytes/100 WBC (Bld) 0.300 % 0.0-0.9 [facility] Work Phone: Comment on above: IG% - Immature Granu locytes (promyelocytes, myelocytes and metamyelocytes) > 1% indicates that a LEFT SHIFT is Present. MCH (RBC) [Entitic mass] 30.1 pg 27.0-32.0 [facility] Work Phone: Nucleated RBC/100 WBC (Bld) [Ratio] 0 % 0-5 [facility] Work Phone: MCHC Auto (RBC) [Mass/Vol]on 03-12-2022 MCHC (RBC) [Mass/Vol] 32.5 g/dL 32-36 [facility] Work Phone: No Panel Informationon 03-12 CA 125 Antigen 13.5 U/mL 0.0-38.1 [facility] Work Phone: Comment on above: [facility] El ectrochemiluminescence Immunoassay(ECLIA)Values obtained with different assay methods or kits cannotbe used interchangeably. Results cannot be interpreted asabsolute evidence of the presence or absence of malignantdisease.Performed at: [address] [id number] Director: Guero Smyth PhD, Phone: [phone] Estimated Creatinine Clearance Calc 48.64 ml/min [facility] Work Phone: Estimated GFR (MDRD) Amer 85 mL/min >60 [facility] Work Phone: Comment on above: GFR Calc Estimated GFR (MDRD) Non-Af Amer 71 mL/min >60 [facility] Work Phone: Comment on above: Non- GFR Calc Platelets bldon 03-12-2022 Platelets (Bld) [#/Vol] 212 10*3/uL 150-450 [facility] Work Phone: Serum or plasma albumin charlene urement (mass/volume)on 03-12-2022 Albumin [Mass/Vol] 3.7 g/dL 3.2-5.0 [facility] Work Phone: Serum or plasma albumin/glob ulin mass ratioon 03-12-2022 Albumin/Globulin [Mass ratio] 1.1 {ratio} 0.9-2.4 [facility] Work Phone: Serum or plasma calcium charlene urement (mass/volume)on 03-12-2022 Calcium [Mass/Vol] 9.5 mg/dL 8.5-10.1 [facility] Work Phone: Serum or plasma creatinine m easurement (mass/volume)on 03-12-2022 Creatinine [Mass/Vol] 0.83 mg/dL 0.55-1.02 [facility] Work Phone: Comment on above: The validity of the calculated GFR & GFRAA in patients over 70 years has not been determined. Clinical correlation is essential. Serum or plasma urea nitroge n measurement (mass/volume)on 03-12-2022 Urea nitrogen [Mass/Vol] 13 mg/dL 7-18 [facility] Work Phone: Thin prep Papanicolaou smear with manual screeningon 03-12-2022 Thin prep Papanicolaou smear with manual screening 23 U/L 15-37 [facility] Work Phone: Thin prep Papanicolaou smear with manual screening 7 5-15 [facility] Work Phone: Thin prep Papanicolaou smear with manual screening 251 U/L 84-246 [facility] Work Phone: CNOVon 10-08-2021 CNOV Office Visit ([facility]WSTR ) -- LUZ CLANCY ([id number]) 1940 F Date Time Provider Department 10/08/21 7:30 AM SEBLE VANN During your visit today, we recorded the following information about you: Temperature Pulse Respiration Blood pressure 96.7 degrees 88/minute 16/minute 182/94 Weight 58.1 kg Seble Vann APRN.CNP 10/08/2021 8:25 AM Signed This note was created using [employer]. Subjective Luz Clancy is a 81 year [...] history is provided by the patient. No certified court interpreter was used. Illness The current episode [...] Laterality Date - COLONOSCOP W/ OR W/O [facility] SPEC 06/17/2006 Colonoscopy - COLONOSCOP W/ OR W/O [facility] SPEC 07/15/11 - COLONOSCOP W/ OR W/O [facility] SPEC 07/17/16 Colonoscopy (needs MAC [...] Pulses: No (more content not included)... Normal [facility] COVID w FLU A+B Routon 10-08 Influenza A PCR Negative Normal [facility] Comment on above: Performed By: #### C OVFLU #### [place] [address] Influenza B PCR Negative Normal [facility] Comment on above: Performed By: #### C OVFLU #### [place] [address] SARS-CoV-2 (COVID-19) RNA NAKUL+probe Ql (Unsp spec) UPPER RESPIRATORY TRACT SWAB Normal [facility] Comment on above: Performed By: #### C OVFLU #### [place] [address] SARS-CoV-2 (COVID-19) RNA NAKUL+probe Ql (Unsp spec) Negative for COVID19 (SARS CoV2) by RT-PCR or equivalent method. Normal Negative for COVID19 (SARS CoV2) by RT-PCR or equivalent method. [facility] Comment on above: Result Comment: This test was developed and its performance characteristics determined by [facility] [place]. This test has been authorized by FDA under an Emergency Use Authorization (EUA). This test has been validated in accordance with the FDA's Guidance Document Policy for Diagnostics Testing in Laboratories Certified to Perform High Complexity Testing under CLIA prior to Emergency use Authorization for Coronavirus Disease 2019 during the Public Health Emergency issued on December 10, 2019. Test performed by [facility], [facility] [place], [address] [id number]. Performed By: #### C OVFLU #### [facility] [place] [id number] Erythrocyte distribution wid th standard deviationon 03-16-2019 Erythrocyte distribution width (RBC) [Entitic vol] 40.4 fL 35.1-43.9 [facility] Laboratory - Hematology and Cell countson 03-16-2019 Erythrocyte distribution width (RBC) [Ratio] 12.1 % 11.6-14.6 [facility] Total cell counton 9 Cells counted [employer] (Bld/Tiss) [#] Not Reportable [facility] Laboratory - Coagulationon 10-24-2016 aPTT Coag (Bld) [Time] 25.9 s 24.1-36.2 [facility] INR Coag (Bld) [Relative time] 0.9 {INR} [facility] PT Coag (PPP) [Time] 11.4 s Low 11.7-14.9 [facility] Lab Report: CBC W/Diff, Auto matedon 02-11-2017 Basophils/100 leukocytes 0.7 % Invalid Interpretation Code 0-1 [facility] Work Phone: Eosinophils/100 leukocytes 2.1 % Invalid Interpretation Code 0-5 [facility] Work Phone: Erythrocytes (RBC) 4.35 10*6/uL Invalid Interpretation Code 4.2-5.4 [facility] Work Phone: Hematocrit (HCT) 42.1 % Invalid Interpretation Code 37-47 [facility] Work Phone: Hemoglobin (HGB) 13.5 g/dL Invalid Interpretation Code 12.0-15.0 [facility] Work Phone: immature granulocytes, percentage of total cells, blood 0.000 % Invalid Interpretation Code 0.0-0.9 [facility] Work Phone: Lymphocytes 1.03 X10 3/UL Invalid Interpretation Code 0.83-4.51 [facility] Work Phone: Lymphocytes/100 leukocytes 23.5 % Invalid Interpretation Code 19-41 [facility] Work Phone: MCH 31.0 pg Invalid Interpretation Code 27.0-32.0 [facility] Work Phone: MCHC 32.1 G/GL Invalid Interpretation Code 32-36 [facility] Work Phone: MCV 96.8 fL Invalid Interpretation Code 81-99 [facility] Work Phone: Monocytes/100 leukocytes 9.6 % Invalid Interpretation Code 0-10 [facility] Work Phone: neutrophil count, blood 2.8 X10 3/UL Invalid Interpretation Code 2.0-7.7 [facility] Work Phone: Neutrophils/100 leukocytes 64.1 % Invalid Interpretation Code 47-70 [facility] Work Phone: Platelets 249 10*3/mm3 Invalid Interpretation Code 150-450 [facility] Work Phone: PMV by Kandis 11.0 fL Invalid Interpretation Code 6.2-12.0 [facility] Work Phone: RDW-CA 12.4 % Invalid Interpretation Code 11.6-14.6 [facility] Work Phone: red blood cell distribution width, size density 44.0 fL High 35.1-43.9 [facility] Work Phone: WBC (Leukocytes) 4.4 10*3/uL Invalid Interpretation Code 4.4-11.0 [facility] Work Phone: Lab Report: [facility] 02-11-2017 Alanine aminotransferase (ALT) 30 U/L Invalid Interpretation Code 12-78 [facility] Work Phone: Albumin 4.6 g/dL Invalid Interpretation Code 3.4-5.0 [facility] Work Phone: Albumin/Globulin Ratio 1.1 {ratio} Invalid Interpretation Code 0.9-2.4 [facility] Work Phone: Alkaline phosphatase (ALP) 73 U/L Invalid Interpretation Code 45-117 [facility] Work Phone: Anion gap 10 mmol/L Invalid Interpretation Code 5-15 [facility] Work Phone: Aspartate aminotransferase (AST) 23 U/L Invalid Interpretation Code 15-37 [facility] Work Phone: Bilirubin (total) 0.40 mg/dL Invalid Interpretation Code 0.20-1.00 [facility] Work Phone: BUN/Creatinine Ratio 19.1 RATIO Invalid Interpretation Code 10-20 [facility] Work Phone: Calcium 9.4 mg/dL Invalid Interpretation Code 8.5-10.1 [facility] Work Phone: Chloride 103 mmol/L Invalid Interpretation Code 98-107 [facility] Work Phone: CO2 26.0 mmol/L Invalid Interpretation Code 21.0-32.0 [facility] Work Phone: Creatinine 0.84 mg/dL Invalid Interpretation Code 0.55-1.02 [facility] Work Phone: eGFR (non-black) 85 mL/min/{1.73_m2} Invalid Interpretation Code >60 [facility] Work Phone: eGFR (non-black) 70 mL/min/{1.73_m2} Invalid Interpretation Code >60 [facility] Work Phone: Globulin 4.1 g/dL High 2.3-3.5 [facility] Work Phone: Glucose 89 mg/dL Invalid Interpretation Code 70-110 [facility] Work Phone: Potassium 3.7 mmol/L Invalid Interpretation Code 3.5-5.1 [facility] Work Phone: Protein 8.7 g/dL High 6.4-8.2 [facility] Work Phone: Sodium 139 mmol/L Invalid Interpretation Code 136-145 [facility] Work Phone: Urea nitrogen 16 mg/dL Invalid Interpretation Code 7-18 [facility] Work Phone: Lab Report: LDHon 02-11-2017 lactate dehydrogenase - serum 285 U/L High 84-246 [facility] Work Phone: Lab Report: Magnesiumon Magnesium 2.5 mg/dL High 1.8-2.4 [facility] Work Phone: Lab Report: Uric Acidon Urate 3.7 mg/dL Invalid Interpretation Code 2.6-6.0 [facility] Work Phone: Office Visit: 6 mo f/u - PHQ 9 Completeon 08-14-2016 Adolescent depression screening assessment Adolescent depression screening assessment Invalid Interpretation Code [facility] Work Phone: Adult depression screening assessment Adult depression screening assessment Invalid Interpretation Code [facility] Work Phone: Documentation of current medications (procedure) Done Invalid Interpretation Code [facility] Work Phone: Tobacco smoking status NHIS Never Invalid Interpretation Code [facility] Work Phone: Tobacco use CPHS Never smoker Invalid Interpretation Code [facility] Work Phone: Office Visit: 6 mo f/u - PHQ 9 Completeon 07-16-2016 Colonoscopy (procedure) Colonoscopy (procedure) Invalid Interpretation Code [facility] Work Phone: Office Visit: 6 mo f/u - PHQ 9 Completeon 10-15-2015 Breast Mammogram screening Normal Bilateral Invalid Interpretation Code [facility] Work Phone: Lab Report: Cancer Antigen 1 25on 07-27-2015 cancer 125 antigen 11.2 U/mL Invalid Interpretation Code 0.0-34.0 [facility] Work Phone: Lab Report: CBC W/Diff, Auto - EPLAB Onlyon 02-15-2015 Absolute Neutrophil count 1.5 X10 3/UL Low 2.0-7.7 [facility] Work Phone: Lab Report: Comprehensive Me tabolic Profilon 11-14-2014 GE use only - for [employer] import when terms are not otherwise specified 66 U/L Invalid Interpretation Code 50-136 [facility] Work Phone: Lab Report: LDHon 11-14-2014 Lactate dehydrogenase (LDH) 188 U/L Invalid Interpretation Code 87-241 [facility] Work Phone: Lab Report: Thyroid Stim Hor salvador (TSH)on 11-14-2014 Thyroid stimulating hormone (TSH) 4.78 u[iU]/mL Critically high 0.358-3.74 [facility] Work Phone: Lab Report: B12on 01-16-2014 vitamin b12, serum 424 pg/mL Normal 211-911 [facility] Work Phone: Lab Report: FOLon 01-16-2014 Folate 55.10 ng/mL High 3.1-17.5 [facility] Work Phone: Lab Report: LIVERon 01-17-20 14 Bilirubin (direct) 0.08 mg/dL Normal 0.00-0.30 [facility] with [facility] Work Phone: Office Visit: 6 mo f/u - PHQ 9 Completeon 08-12-2006 General categories [interpretation] of Cervical or vaginal smear or scraping by Cyto stain Normal Invalid Interpretation Code [facility] Work Phone: Culture, urine Bacteria identified Cx Nom (U) Positive [facility] Work Phone: Laboratory - Microbiology an d Antimicrobial susceptibility Bacteria identified Cx Nom (Bld) No growth in 5 days. [facility] Work Phone: Vital Signs Date Time Vital Sign Value Performing Clinician Cobyi litblair 06-26-2025 08:42-0400 Body height 165.1 cm [facility] Work Phone: [facility] 06-26-2025 08:42-0400 Body mass index (BMI) [Ratio] 20.5 kg/m2 [facility] [employer] Work Phone: [facility] 06-26-2025 08:42-0400 Body temperature 98.3 [degF] [facility] [employer] Work Phone: [facility] 06-26-2025 08:42-0400 Body weight 55.93 kg Lela Jaydon [employer] Work Phone: [facility] 06-26-2025 08:42-0400 Diastolic blood pressure 94 mm[Hg] Lela Jaydon [employer] Work Phone: [facility] 06-26-2025 08:42-0400 Heart rate 77 /min Lela Jaydon [employer] Work Phone: [facility] 06-26-2025 08:42-0400 Respiratory rate 18 /min Lela Jaydon [employer] Work Phone: [facility] 06-26-2025 08:42-0400 SaO2% (BldA) [Mass fraction] 99 % Lela Jaydon [employer] Work Phone: [facility] 06-26-2025 08:42-0400 Systolic blood pressure 166 mm[Hg] Lela Jaydon [employer] Work Phone: [facility] 06-22-2025 10:44-0400 Body temperature 97.3 [degF] Lela Jaydon [employer] Work Phone: [facility] 06-22-2025 10:44-0400 Diastolic blood pressure 73 mm[Hg] Lela Jaydon [employer] Work Phone: [facility] 06-22-2025 10:44-0400 Heart rate 101 /min Lela Jaydon [employer] Work Phone: [facility] 06-22-2025 10:44-0400 Respiratory rate 16 /min Lela Jaydon [employer] Work Phone: [facility] 06-22-2025 10:44-0400 SaO2% (BldA) [Mass fraction] 100 % Lela Jaydon [employer] Work Phone: [facility] 06-22-2025 10:44-0400 Systolic blood pressure 123 mm[Hg] Lela Jaydon [employer] Work Phone: [facility] 06-22-2025 08:47-0400 Body height 165.1 cm Lela Jaydon [employer] Work Phone: [facility] 06-22-2025 08:47-0400 Body mass index (BMI) [Ratio] 20.2 kg/m2 Lela Jaydon [employer] Work Phone: [facility] 06-22-2025 08:47-0400 Body weight 55.2 kg Lela Jaydon [employer] Work Phone: [facility] 06-15-2025 09:38-0400 Body height 165.1 cm Lela Jaydon [employer] Work Phone: [facility] 06-15-2025 09:38-0400 Body mass index (BMI) [Ratio] 20.5 kg/m2 Lela Jaydon [employer] Work Phone: [facility] 06-15-2025 09:38-0400 Body weight 55.79 kg Lela Jaydon [employer] Work Phone: [facility] 06-15-2025 09:38-0400 Diastolic blood pressure 78 mm[Hg] Lela Jaydon [employer] Work Phone: [facility] 06-15-2025 09:38-0400 Heart rate 83 /min Lela Jaydon [employer] Work Phone: [facility] 06-15-2025 09:38-0400 Respiratory rate 17 /min Lela Jaydon [employer] Work Phone: [facility] 06-15-2025 09:38-0400 SaO2% (BldA) [Mass fraction] 99 % Lela Jaydon [employer] Work Phone: [facility] 06-15-2025 09:38-0400 Systolic blood pressure 144 mm[Hg] Lela Jaydon [employer] Work Phone: [facility] 06-08-2025 10:24-0400 Body height 165.1 cm Lela Jaydon [employer] Work Phone: [facility] 06-08-2025 10:24-0400 Body mass index (BMI) [Ratio] 20.7 kg/m2 Lela Jaydon [employer] Work Phone: [facility] 06-08-2025 10:24-0400 Body temperature 98.2 [degF] Lela Jaydon [employer] Work Phone: [facility] 06-08-2025 10:24-0400 Body weight 56.35 kg Lela Jaydon [employer] Work Phone: [facility] 06-08-2025 10:24-0400 Diastolic blood pressure 83 mm[Hg] Lela Jaydon [employer] Work Phone: [facility] 06-08-2025 10:24-0400 Heart rate 80 /min Lela Jaydon [employer] Work Phone: [facility] 06-08-2025 10:24-0400 Respiratory rate 18 /min Lela Jaydon [employer] Work Phone: [facility] 06-08-2025 10:24-0400 SaO2% (BldA) [Mass fraction] 100 % Lela Jaydon [employer] Work Phone: [facility] 06-08-2025 10:24-0400 Systolic blood pressure 160 mm[Hg] Lela Jaydon [employer] Work Phone: [facility] 06-05-2025 14:52-0400 Body height 165.[address] Paola Corona MD Work Phone: [facility] 06-05-2025 14:52-0400 Body mass index (BMI) [Ratio] 20.7 kg/m2 Dr. Paola Corona MD Work Phone: [facility] 06-05-2025 14:52-0400 Body temperature 97.9 [degF] Dr. Paola Corona MD Work Phone: [facility] 06-05-2025 14:52-0400 Body weight 56.[address] Paola Corona MD Work Phone: [facility] 06-05-2025 14:52-0400 Diastolic blood pressure 97 mm[Hg] Dr. Paola Corona MD Work Phone: [facility] 06-05-2025 14:52-0400 Heart rate 83 /min Dr. Paola Corona MD Work Phone: [facility] 06-05-2025 14:52-0400 Respiratory rate 18 /min Dr. Paola Corona MD Work Phone: [facility] 06-05-2025 14:52-0400 SaO2% (BldA) [Mass fraction] 99 % Dr. Paola Corona MD Work Phone: [facility] 06-05-2025 14:52-0400 Systolic blood pressure 179 mm[Hg] Dr. Paola Corona MD Work Phone: 3(946)550-901147 [address] 05-22-2025 16:18-0400 Body temperature 98.1 [degF] Dr. Paola Corona MD Work Phone: 8(126)191-230442 [place] [address] 05-22-2025 16:18-0400 Diastolic blood pressure 58 mm[Hg] Dr. Paola Corona MD Work Phone: [facility] 05-22-2025 16:18-0400 Heart rate 80 /min Dr. Paola Corona MD Work Phone: 5(915)212-145242 [place] [address] 05-22-2025 16:18-0400 Respiratory rate 16 /min Dr. Paola Corona MD Work Phone: [facility] 05-22-2025 16:18-0400 SaO2% (BldA) [Mass fraction] 99 % Dr. Paola Corona MD Work Phone: [facility] 05-22-2025 16:18-0400 Systolic blood pressure 114 mm[Hg] Dr. Paola Corona MD Work Phone: [facility] 05-22-2025 09:14-0400 Body height 165.[address] Paola Corona MD Work Phone: [facility] 05-22-2025 09:14-0400 Body weight 56.[address] Paola Corona MD Work Phone: 5(205)887-556772 [place] [address] 05-22-2025 01:26-0400 Body mass index (BMI) [Ratio] 20.7 kg/m2 Dr. Paola Corona MD Work Phone: 1(352)661-093472 [place] [address] 05-19-2025 09:43-0400 Heart rate 80 /min Dr. Paola Corona MD Work Phone: 7(765)088-683372 [place] [address] 05-19-2025 07:41-0400 Body temperature 99.1 [degF] Dr. Paola Corona MD Work Phone: 8(234)359-387072 [place] [address] 05-19-2025 07:41-0400 Diastolic blood pressure 83 mm[Hg] Dr. Paola Corona MD Work Phone: 7(527)024-563772 [place] [address] 05-19-2025 07:41-0400 Respiratory rate 17 /min Dr. Paola Corona MD Work Phone: 8(861)243-809972 [place] [address] 05-19-2025 07:41-0400 SaO2% (BldA) [Mass fraction] 98 % Dr. Paola Corona MD Work Phone: 7(897)786-381772 [place] [address] 05-19-2025 07:41-0400 Systolic blood pressure 162 mm[Hg] Dr. Paola Corona MD Work Phone: 6(854)747-849772 [place] [address] 05-19-2025 05:13-0400 Body mass index (BMI) [Ratio] 21.1 kg/m2 Dr. Paola Corona MD Work Phone: 6(999)646-825572 [place] [address] 05-19-2025 05:13-0400 Body weight 57.[address] Paola Corona MD Work Phone: 3(893)326-500372 [place] [address] 05-18-2025 22:52-0400 Body height 165.[address] Paola Corona MD Work Phone: 6(562)205-274072 [place] [address] 05-18-2025 22:19-0400 Body temperature 98.6 [degF] Dr. Paola Corona MD Work Phone: [facility] 05-18-2025 22:19-0400 Diastolic blood pressure 102 mm[Hg] Dr. Paola Corona MD Work Phone: [facility] 05-18-2025 22:19-0400 Heart rate 124 /min Dr. Paola Corona MD Work Phone: 3(824)196-056047 [address] 05-18-2025 22:19-0400 Respiratory rate 18 /min Dr. Paola Corona MD Work Phone: 0(360)014-787442 [place] [address] 05-18-2025 22:19-0400 SaO2% (BldA) [Mass fraction] 100 % Dr. Paola Corona MD Work Phone: 3(645)627-751472 [place] [address] 05-18-2025 22:19-0400 Systolic blood pressure 159 mm[Hg] Dr. Paola Corona MD Work Phone: 4(880)554-809347 [address] 05-18-2025 17:46-0400 Body height 165.[address] Paola Corona MD Work Phone: 0(542)916-336647 [address] 05-18-2025 17:46-0400 Body mass index (BMI) [Ratio] 21.3 kg/m2 Dr. Paola Corona MD Work Phone: 8(877)414-569747 [address] 05-18-2025 17:46-0400 Body weight 58.[address] Paola Corona MD Work Phone: 3(554)787-467847 [address] 05-16-2025 08:46-0400 Body mass index (BMI) [Ratio] 20.7 kg/m2 Dr. Paola Corona MD Work Phone: 8(369)395-292847 [address] 05-16-2025 08:46-0400 Body weight 56.[address] Paola Corona MD Work Phone: 6(331)269-118447 [address] 05-16-2025 08:46-0400 Diastolic blood pressure 96 mm[Hg] Dr. Paola Corona MD Work Phone: 8(798)011-167547 [address] 05-16-2025 08:46-0400 Heart rate 80 /min Dr. Paola Corona MD Work Phone: [facility] 05-16-2025 08:46-0400 Respiratory rate 18 /min Dr. Paola Corona MD Work Phone: [facility] 05-16-2025 08:46-0400 SaO2% (BldA) [Mass fraction] 98 % Dr. Paola Corona MD Work Phone: 2(463)641-844342 [place] [address] 05-16-2025 08:46-0400 Systolic blood pressure 167 mm[Hg] Dr. Paola Corona MD Work Phone: 9(878)350-527747 [address] 05-10-2025 13:11-0400 Diastolic blood pressure 63 mm[Hg] Dr. Paola Corona MD Work Phone: 5(306)254-455647 [address] 05-10-2025 13:11-0400 Heart rate 72 /min Dr. Paola Corona MD Work Phone: 5(697)532-548947 [address] 05-10-2025 13:11-0400 Respiratory rate 18 /min Dr. Paola Corona MD Work Phone: 0(203)438-508247 [address] 05-10-2025 13:11-0400 SaO2% (BldA) [Mass fraction] 100 % Dr. Paola Corona MD Work Phone: [facility] 05-10-2025 13:11-0400 Systolic blood pressure 123 mm[Hg] Dr. Paola Corona MD Work Phone: [facility] 05-10-2025 08:17-0400 Body height 165.[address] Paola Corona MD Work Phone: 5(152)095-605447 [address] 05-10-2025 08:17-0400 Body mass index (BMI) [Ratio] 20.5 kg/m2 Dr. Paola Corona MD Work Phone: 6(459)656-370342 [place] [address] 05-10-2025 08:17-0400 Body temperature 98.6 [degF] Dr. Paola Corona MD Work Phone: 8(357)155-030847 [address] 05-10-2025 08:17-0400 Body weight 55.[address] Paola Corona MD Work Phone: [facility] 04-24-2025 15:53-0400 Body height 165.[address] Paola Corona MD Work Phone: [facility] 04-24-2025 15:53-0400 Body mass index (BMI) [Ratio] 20.9 kg/m2 Dr. Paola Corona MD Work Phone: [facility] 04-24-2025 15:53-0400 Body temperature 98.8 [degF] Dr. Paola Corona MD Work Phone: 6(311)778-137042 [place] [address] 04-24-2025 15:53-0400 Body weight 57.[address] Paola Corona MD Work Phone: 7(168)039-302942 [place] [address] 04-24-2025 15:53-0400 Diastolic blood pressure 81 mm[Hg] Dr. Paola Corona MD Work Phone: [facility] 04-24-2025 15:53-0400 Heart rate 75 /min Dr. Paola Corona MD Work Phone: [facility] 04-24-2025 15:53-0400 Respiratory rate 18 /min Dr. Paola Corona MD Work Phone: [facility] 04-24-2025 15:53-0400 SaO2% (BldA) [Mass fraction] 98 % Dr. Paola Corona MD Work Phone: [facility] 04-24-2025 15:53-0400 Systolic blood pressure 180 mm[Hg] Dr. Paola Corona MD Work Phone: [facility] 04-12-2025 14:56-0400 Body height 165.[address] Paola Corona MD Work Phone: [facility] 04-12-2025 14:56-0400 Body mass index (BMI) [Ratio] 21 kg/m2 Dr. Paola Corona MD Work Phone: [facility] 04-12-2025 14:56-0400 Body weight 57.[address] Paola Corona MD Work Phone: [facility] 04-12-2025 14:56-0400 Diastolic blood pressure 99 mm[Hg] Dr. Paola Corona MD Work Phone: 5(937)618-268772 [place] [address] 04-12-2025 14:56-0400 Heart rate 81 /min Dr. Paola Corona MD Work Phone: 7(749)195-192247 [address] 04-12-2025 14:56-0400 Respiratory rate 15 /min Dr. Paola Corona MD Work Phone: 3(729)741-742872 [place] [address] 04-12-2025 14:56-0400 SaO2% (BldA) [Mass fraction] 99 % Dr. Paola Corona MD Work Phone: 9(640)455-919847 [address] 04-12-2025 14:56-0400 Systolic blood pressure 171 mm[Hg] Dr. Paola Corona MD Work Phone: 7(401)152-005647 [address] 01-11-2025 13:26-0400 Body mass index (BMI) [Ratio] 22.1 kg/m2 Dr. Paola Corona MD Work Phone: 0(742)593-651947 [address] 01-11-2025 13:26-0400 Body weight 60.[address] Paola Corona MD Work Phone: 9(882)207-096447 [address] 01-11-2025 13:26-0400 Diastolic blood pressure 99 mm[Hg] Dr. Paola Corona MD Work Phone: 2(947)538-553142 [place] [address] 01-11-2025 13:26-0400 Heart rate 99 /min Dr. Paola Corona MD Work Phone: 0(025)291-174047 [address] 01-11-2025 13:26-0400 Respiratory rate 16 /min Dr. Paola Corona MD Work Phone: 5(827)448-400142 [place] [address] 01-11-2025 13:26-0400 Systolic blood pressure 177 mm[Hg] Dr. Paola Corona MD Work Phone: [facility] 10-21-2024 06:35-0500 Body temperature 97.9 [degF] Dr. Paola Corona MD Work Phone: [facility] 10-21-2024 06:35-0500 Diastolic blood pressure 76 mm[Hg] Dr. Paola Corona MD Work Phone: 1(257)765-844042 [place] [address] 10-21-2024 06:35-0500 Heart rate 116 /min Dr. Paola Corona MD Work Phone: 8(855)512-081642 [place] [address] 10-21-2024 06:35-0500 Respiratory rate 16 /min Dr. Paola Corona MD Work Phone: 6(973)035-963672 [place] [address] 10-21-2024 06:35-0500 SaO2% (BldA) [Mass fraction] 97 % Dr. Paola Corona MD Work Phone: 0(846)957-376247 [address] 10-21-2024 06:35-0500 Systolic blood pressure 160 mm[Hg] Dr. Paola Corona MD Work Phone: 9(768)257-038142 [place] [address] 02-04-2024 06:47-0400 Body temperature 97.8 [degF] Dr. Paola Corona Work Phone: 5(032)730-675347 [address] 02-04-2024 06:47-0400 Diastolic blood pressure 74 mm[Hg] Dr. Paola Corona Work Phone: 4(611)787-232442 [place] [address] 02-04-2024 06:47-0400 Heart rate 91 /min Dr. Paola Corona Work Phone: [facility] 02-04-2024 06:47-0400 Respiratory rate 17 /min Dr. Paola Corona Work Phone: 5(647)642-367847 [address] 02-04-2024 06:47-0400 SaO2% (BldA) [Mass fraction] 99 % Dr. Paola Corona Work Phone: [facility] 02-04-2024 06:47-0400 Systolic blood pressure 158 mm[Hg] Dr. Paola Corona Work Phone: 3(265)776-742942 [place] [address] 12-26-2023 08:05-0400 Body temperature 98.1 [degF] Dr. Paola Corona Work Phone: [facility] 12-26-2023 08:05-0400 Diastolic blood pressure 84 mm[Hg] Dr. Paola Corona Work Phone: [facility] 12-26-2023 08:05-0400 Heart rate 101 /min Dr. Paola Corona Work Phone: [facility] 12-26-2023 08:05-0400 Respiratory rate 14 /min Dr. Paola Corona Work Phone: 3(946)763-540047 [address] 12-26-2023 08:05-0400 SaO2% (BldA) [Mass fraction] 98 % Dr. Paola Corona Work Phone: 1(444)592-971442 [place] [address] 12-26-2023 08:05-0400 Systolic blood pressure 140 mm[Hg] Dr. Paola Corona Work Phone: [facility] 12-10-2023 07:08-0500 Body height 165.[address] Paola Corona Work Phone: 9(168)459-111247 [address] 12-10-2023 07:08-0500 Body mass index (BMI) [Ratio] 21.9 kg/m2 Dr. Paola Corona Work Phone: 3(460)971-901042 [place] [address] 12-10-2023 07:08-0500 Body temperature 98 [degF] Dr. Paola Corona Work Phone: [facility] 12-10-2023 07:08-0500 Body weight 59.[address] Paola Corona Work Phone: [facility] 12-10-2023 07:08-0500 Diastolic blood pressure 80 mm[Hg] Dr. Paola Corona Work Phone: [facility] 12-10-2023 07:08-0500 Heart rate 97 /min Dr. Paola Corona Work Phone: [facility] 12-10-2023 07:08-0500 Respiratory rate 12 /min Dr. Paola Corona Work Phone: [facility] 12-10-2023 07:08-0500 SaO2% (BldA) [Mass fraction] 96 % Dr. Paola Corona Work Phone: [facility] 12-10-2023 07:08-0500 Systolic blood pressure 162 mm[Hg] Dr. Paola Corona Work Phone: 2(766)689-502942 [place] [address] 03-23-2023 13:28-0400 Body height 165.[address] Paola Corona Work Phone: 9(972)356-903972 [place] [address] 03-23-2023 13:28-0400 Body mass index (BMI) [Ratio] 21.6 kg/m2 Dr. Paola Corona Work Phone: 3(872)549-220172 [place] [address] 03-23-2023 13:28-0400 Body temperature 97.3 [degF] Dr. Paola Corona Work Phone: 1(583)439-893442 [place] [address] 03-23-2023 13:28-0400 Body weight 59.[address] Paola Corona Work Phone: 6(599)443-492547 [address] 03-23-2023 13:28-0400 Diastolic blood pressure 81 mm[Hg] Dr. Paola Corona Work Phone: 0(212)885-002047 [address] 03-23-2023 13:28-0400 Heart rate 87 /min Dr. Paola Corona Work Phone: 8(470)987-569542 [place] [address] 03-23-2023 13:28-0400 Respiratory rate 16 /min Dr. Paola Corona Work Phone: 8(462)381-264247 [address] 03-23-2023 13:28-0400 SaO2% (BldA) [Mass fraction] 99 % Dr. Paola Corona Work Phone: 1(331)199-555642 [place] [address] 03-23-2023 13:28-0400 Systolic blood pressure 175 mm[Hg] Dr. Paola Corona Work Phone: 6(077)552-717042 [place] [address] 06-05-2022 10:31-0400 Body temperature 98.6 [degF] Dr. Paola Corona Work Phone: [facility] Work Phone: 06-05-2022 10:29-0400 Diastolic blood pressure 84 mm[Hg] Dr. Paola Corona Work Phone: [facility] Work Phone: 06-05-2022 10:29-0400 Heart rate 83 /min Dr. Paola Corona Work Phone: [facility] Work Phone: 06-05-2022 10:29-0400 Respiratory rate 18 /min Dr. Paola Corona Work Phone: [facility] Work Phone: 06-05-2022 10:29-0400 SaO2% (BldA) [Mass fraction] 96 % Dr. Paola Corona Work Phone: [facility] [facility] Work Phone: 06-05-2022 10:29-0400 Systolic blood pressure 144 mm[Hg] Dr. Paola Corona Work Phone: [facility] Work Phone: 06-05-2022 07:50-0400 Body height 165.[address] Paola Corona Work Phone: [facility] Work Phone: 06-05-2022 07:50-0400 Body mass index (BMI) [Ratio] 24.7 kg/m2 Dr. Paola Corona Work Phone: [facility] Work Phone: 06-05-2022 07:50-0400 Body weight 67.[address] Paola Corona Work Phone: [facility] Work Phone: 03-24-2022 15:22-0400 Body height 162.[address] Paola Corona Work Phone: [facility] Work Phone: 03-24-2022 15:22-0400 Body mass index (BMI) [Ratio] 23.1 kg/m2 Dr. Paola Corona Work Phone: [facility] Work Phone: 03-24-2022 15:22-0400 Body temperature 98.4 [degF] Dr. Paola Corona Work Phone: [facility] Work Phone: 03-24-2022 15:22-0400 Body weight 61.[address] Paola Corona Work Phone: [facility] Work Phone: 03-24-2022 15:22-0400 Diastolic blood pressure 96 mm[Hg] Dr. Paola Corona Work Phone: [facility] Work Phone: 03-24-2022 15:22-0400 Heart rate 82 /min Dr. Paola Corona Work Phone: [facility] Work Phone: 03-24-2022 15:22-0400 Respiratory rate 15 /min Dr. Paola Corona Work Phone: [facility] Work Phone: 03-24-2022 15:22-0400 SaO2% (BldA) [Mass fraction] 97 % Dr. Paola Corona Work Phone: [facility] Work Phone: 03-24-2022 15:22-0400 Systolic blood pressure 182 mm[Hg] Dr. Paola Corona Work Phone: [facility] Work Phone: 02-16-2022 13:58-0400 Diastolic blood pressure 85 mm[Hg] [facility] Work Phone: 02-16-2022 13:58-0400 Heart rate 75 /min [facility] Work Phone: 02-16-2022 13:58-0400 SaO2% (BldA) [Mass fraction] 98 % [facility] Work Phone: 02-16-2022 13:58-0400 Systolic blood pressure 186 mm[Hg] [facility] Work Phone: 02-16-2022 12:46-0400 Body height 162.56 cm [facility] Work Phone: 02-16-2022 12:46-0400 Body mass index (BMI) [Ratio] 22.3 kg/m2 [facility] Work Phone: 02-16-2022 12:46-0400 Body temperature 96.8 [degF] [facility] Work Phone: 02-16-2022 12:46-0400 Body weight 58.96 kg [facility] Work Phone: 02-16-2022 12:46-0400 Respiratory rate 18 /min [facility] Work Phone: 03-22-2020 14:59-0400 Body mass index (BMI) [Ratio] 21.8 kg/m2 Dr. Paola Corona Work Phone: [facility] 03-22-2020 14:59-0400 Body temperature 97.6 [degF] Dr. Paola Corona Work Phone: [facility] 03-22-2020 14:59-0400 Body weight 59.[address] Paola Corona Work Phone: [facility] 03-22-2020 14:59-0400 Diastolic blood pressure 82 mm[Hg] Dr. Paola Corona Work Phone: [facility] 03-22-2020 14:59-0400 Heart rate 74 /min Dr. Paola Corona Work Phone: [facility] 03-22-2020 14:59-0400 Respiratory rate 16 /min Dr. Paola Corona Work Phone: [facility] 03-22-2020 14:59-0400 SaO2% (BldA) [Mass fraction] 98 % Dr. Paola Corona Work Phone: [facility] 03-22-2020 14:59-0400 Systolic blood pressure 162 mm[Hg] Dr. Paola Corona Work Phone: [facility] 08-14-2016 13:23-0400 BMI (Body Mass [...] 13:27-0500 Height 163.83 cm Carlos Bernal MD [facility] Work Phone: Encounters Encounter Date Encounter Type Care Provider Facility Start: 07-03-2025 [facility] Start: 06-26-2025 End: 06-26-[address] Carlos Bernal MD -[facility] Work Phone: Start: 06-26-2025 End: 06-26-2025 ambulatory Lela Interiano [employer] Work Phone: -[facility] Start: 06-26-[address] Carlos Bernal MD -[facility] Start: 06-22-2025 ambulatory Isaiah shearery:[facility] Start: 06-22-2025 Non-patient / Non-visit Dr. Alicia Lerner MD -[facility] Start: 06-22-2025 End: 06-22-2025 Admission to same day surgery center Dr. Isaiah Lerner [facility] Start: 06-22-2025 End: 06-22-2025 ambulatory Lela Jaydon [employer] Work Phone: [facility] Start: 06-15-2025 End: 06-15-[address] Isaiah Lerner MD -[facility] Work Phone: Start: 06-15-2025 End: 06-15-2025 ambulatory Lela Jaydon [employer] Work Phone: -[facility] Start: 06-09-2025 End: 06-09-2025 ambulatory Lela Jaydon [employer] Work Phone: -Outpatient Breast Imaging Start: 06-09-2025 End: 06-09-2025 Patient encounter procedure Lela Interiano [employer] -Outpatient Breast Imaging Work Phone: Start: 06-08-2025 End: 06-08-2025 Patient encounter procedure Lizzy Pelaez [employer] -[facility] Work Phone: Start: 06-08-2025 End: 06-09-2025 ambulatory Lela Bobbyner [employer] Work Phone: -[facility] Start: 06-05-2025 End: 06-05-[address] Carlos Bernal MD -[facility] Work Phone: Start: 06-05-2025 End: 06-05-[address] Paola Corona MD Work Phone: -[facility] Start: 05-29-2025 End: 05-29-[address] Paola Corona MD Work Phone: -[facility] Start: 05-29-2025 End: 05-29-2025 Patient encounter procedure Lela Bobbyner [employer] -Laboratory [facility] Start: 05-29-2025 End: 05-29-2025 ambulatory Lelalita Bobbyner [employer] Facility:[facility] Start: 05-23-2025 Non-patient / Non-visit Dr. Mirlande Lindsey MD -[facility] Work Phone: Start: 05-22-2025 Non-patient / Non-visit Dr. Alicia Lerner MD -[facility] Start: 05-21-2025 Non-patient / Non-visit Dr. Geovanna perez MD -[facility] Start: 05-21-2025 Non-patient / Non-visit Dr. Brian arriaga MD -[facility] Work Phone: Start: 05-20-2025 Non-patient / Non-visit Dr. Geovanna perez MD -[facility] Start: 05-20-2025 Non-patient / Non-visit Dr. Brian arriaga MD -[facility] Work Phone: Start: 05-19-2025 ambulatory Brian Negrete Facility:[facility] Start: 05-19-2025 End: 05-22-2025 Evaluation and management of inpatient Dr. Joseph Lindsey MD -[facility] Work Phone: Start: 05-19-2025 Non-patient / Non-visit Dr. Alicia Lerner MD -[facility] Start: 05-19-2025 Non-patient / Non-visit Dr. Brian arriaga MD -[facility] Work Phone: Start: 05-18-2025 ambulatory Joseph Lindsey Fac ility:[facility] Start: 05-18-2025 Evaluation and management of inpatient Dr. Najma Cates MD -[facility] Work Phone: Start: 05-18-2025 Non-patient / Non-visit Dr. Najma Cates MD -[facility] Work Phone: Start: 05-18-[address] Paola Corona MD Work Phone: -[facility] Start: 05-16-2025 End: 05-16-2025 Patient encounter procedure Laney HUNT -[facility] Work Phone: Start: 05-16-2025 End: 05-16-[address] Paola Corona MD Work Phone: [facility] Start: 05-10-2025 End: 05-10-[address] Paola Corona MD Work Phone: -[facility] Start: 05-10-2025 End: 05-10-[address] Carlos Bernal MD -[facility] Work Phone: Start: 05-10-2025 End: 05-10-2025 ambulatory Brian Gonzales Facility:[facility] Start: 05-02-[address] Carlos Bernal MD -[facility] Start: 04-24-2025 End: 04-24-[address] Carlos Bernal MD -[facility] Work Phone: Start: 04-24-2025 End: 04-24-[address] Paola Corona MD Work Phone: [facility] Start: 04-17-2025 End: 04-17-[address] Paola Corona MD Work Phone: -Cat Scan [facility] Start: 04-17-2025 End: 04-17-[address] Carlos Bernal MD -Cat Scan [facility] Work Phone: Start: 04-17-2025 End: 04-17-2025 ambulatory Carlos Bernal Facility:[facility] Start: 04-12-[address] Carlos Bernal MD -[facility] Start: 04-12-2025 End: 04-12-[address] Carlos Bernal MD -[facility] Work Phone: Start: 04-12-2025 End: 04-12-[address] Paola Corona MD Work Phone: -[facility] Start: 02-27-2025 End: 02-27-2025 Patient encounter procedure Lela Interiano [employer] -[facility] Start: 02-27-2025 End: 02-27-2025 ambulatory Lela Interiano NP Facility:[facility] Start: 02-07-2025 ambulatory Paola Corona Facility: [facility] Start: 02-07-2025 Non-patient / Non-visit Dr. Jaren [facility]ANT[facility]AGO [facility] Start: 02-03-2025 ambulatory Paola Corona Facility: [facility] Start: 02-03-2025 Non-patient / Non-visit Dr. Jaren [facility]ANTIAGO [facility] Start: 02-03-2025 End: 02-03-[address] Riley Mckeon MD -[facility] Work Phone: Start: 02-03-2025 End: 02-03-2025 ambulatory Paola Corona Facility:[facility] Start: 01-11-2025 End: 01-11-[address] Riley Mckeon MD -[facility] Work Phone: Start: 01-11-2025 End: 01-11-2025 ambulatory Paola Corona Facility:[facility] Start: 12-20-2024 End: 12-20-[address] Paola Corona MD Work Phone: [facility] Work Phone: Start: 12-20-2024 End: 12-20-[address] Paola Corona MD -Laboratory, [facility] Start: 12-20-2024 End: 12-20-2024 ambulatory Paola Corona Facility:[facility] Start: 10-24-2024 End: 10-24-[address] Paola Corona MD -Laboratory, [facility] Start: 10-24-2024 End: 10-24-2024 ambulatory Paola Corona Facility:[facility] Start: 10-21-2024 End: 10-21-2024 Patient encounter procedure Eagle LUKE [facility] Work Phone: Start: 10-21-2024 End: 10-21-2024 ambulatory Eagle LUKE Facility:[facility] Start: 02-04-2024 End: 02-04-[address] Paola Corona Work Phone: [facility] Work Phone: Start: 02-04-2024 End: 02-04-[address] Paola Corona Work Phone: [facility]-Laboratory, Specimen Work Phone: Start: 02-04-2024 End: 02-04-[address] Paola Corona Work Phone: [facility] Work Phone: Start: 12-26-2023 End: 12-26-[address] Paola Corona Work Phone: [facility] Work Phone: Start: 12-10-2023 End: 12-10-[address] Paola Corona Work Phone: [facility] Work Phone: Start: 04-20-2023 End: 04-20-[address] Paola Corona Work Phone: [facility] Work Phone: Start: 04-20-2023 End: 04-20-[address] Paola Corona Work Phone: [facility]-Outpatient Breast Imaging Work Phone: Start: 03-30-[address] Paola dent Work Phone: [facility] Work Phone: Start: 03-23-2023 End: 03-23-[address] Paola Corona Work Phone: [facility] Work Phone: Start: 03-16-2023 End: 03-16-2023 ambulatory [facility] Work Phone: Start: 03-16-2023 End: 03-16-2023 Patient encounter procedure [facility]-Laboratory Start: 06-26-2022 End: 06-26-[address] Paola Corona Work Phone: [facility] Work Phone: Start: 06-26-2022 End: 06-26-[address] Paola Corona Work Phone: [facility]-Nuclear Medicine, [facility] Start: 06-13-2022 End: 06-13-[address] Paola Corona Work Phone: [facility] Work Phone: Start: 06-13-2022 End: 06-13-[address] Paola Corona Work Phone: [facility]-Radiology, [place] Start: 06-05-2022 End: 06-05-2022 Emergency department patient visit Dr. Paola Corona Work Phone: [facility]-Emergency Department Start: 04-07-2022 End: 04-07-[address] Paola Corona Work Phone: [facility]-Outpatient Breast Imaging Start: 03-24-2022 End: 03-24-[address] Paola Corona Work Phone: [facility] Start: 03-12-[address] Paola dent Work Phone: [facility] Medical Oncology Start: 02-16-2022 End: 02-16-2022 Emergency department patient visit [facility]-Emergency Department Procedures Date Procedure Procedure Detail Performing Clinician Start: 06-22-2025 Plain chest X-ray Lela Interiano [employer] Work Phone: Start: 06-22-2025 Implantation to cardiovascular system Lelalita Interiano [employer] Work Phone: Start: 06-22-2025 Fluoroscopic guidance E esther Interiano [employer] Work Phone: Start: 06-09-2025 Screening mammography E esther Interiano [employer] Work Phone: Start: 05-22-2025 Computed tomography of [...] Author Start: 06-26-2025 Thyroid stimulating hormone measurement [facility] Start: 06-26-2025 [facility] Start: 06-26-2025 Venous catheter care management [facility] Start: 06-22-2025 Patient discharge [facility] Start: 05-22-2025 Patient discharge [facility] Start: 05-20-2025 Serum inorganic phosphate measurement [facility] Start: 05-19-2025 Admission procedure [facility] Start: 05-19-2025 Consultation [facility] Start: 05-19-2025 Inhalation therapy procedure [facility] Start: 05-18-2025 Following clinical pathway protocol [facility] Start: 05-18-2025 Assessment of risk of venous thromboembolism [facility] Start: 05-18-2025 Incentive spirometry [facility] Start: 05-18-2025 Insertion of catheter into peripheral vein [facility] Start: 05-18-2025 Introduction of urinary catheter [facility] Start: 05-18-2025 Measuring intake and output [facility] Start: 05-18-2025 Oxygen therapy [facility] Start: 05-18-2025 Providing care according to standard [facility] Start: 05-18-2025 Provision of activity privileges [facility] Start: 05-18-2025 Referral to general surgeon [facility] Start: 05-18-2025 Referral to service [facility] Start: 05-18-2025 [facility] Start: 05-18-2025 Verification routine [facility] Start: 05-18-2025 End: 05-18-2025 Hospital admission, emergency, from emergency room, medical nature [facility] Start: 05-18-2025 Admission procedure [facility] Start: 05-18-2025 Patient referral to dietitian [facility] Start: 05-10-2025 CORE NDL BX LNG/MED PERQ CORE NDL BX LNG/MED PERQ [facility] Start: 05-10-2025 Following clinical pathway protocol [facility] Start: 05-10-2025 Catheterization of vein [facility] Start: 05-10-2025 Oxygen therapy [facility] Start: 05-10-2025 Patient discharge [facility] Start: 05-10-2025 Vital signs measurements [facility] Start: 06-05-2022 End: 06-05-2022 [facility] Work Phone: Start: 06-05-2022 Blood culture [facility] Work Phone: Start: 02-18-2017 End: 08-14-2016 *CBC w/Diff - oncology ONLY [facility] Work Phone: Start: 02-18-2017 End: 02-20-2017 *CMP Complete Metabolic Panel *CMP Complete Metabolic Panel [facility] Work Phone: Start: 02-18-2017 End: 02-20-2017 Lactate dehydrogenase (LDH) *LDH -LDH (Lactate Dehydrogenase) [facility] Work Phone: Start: 02-18-2017 End: 02-20-2017 Magnesium *Magnesium [facility] Work Phone: Start: 02-18-2017 End: 02-20-2017 Urate *Uric Acid Blood [facility] Work Phone: Start: 08-14-2016 End: 02-14-2016 *CBC with Differential *CBC with Differential [facility] Work Phone: Start: 08-14-2016 End: 02-14-2016 *CMP Complete Metabolic Panel *CMP Complete Metabolic Panel [facility] Work Phone: Start: 08-14-2016 End: 02-14-2016 Lactate dehydrogenase (LDH) *LDH -LDH (Lactate Dehydrogenase) [facility] Work Phone: Start: 08-14-2016 End: 02-14-2016 Urate *Uric Acid Blood [facility] Work Phone: Start: 02-14-2016 End: 02-07-2016 *CBC with Differential *CBC with Differential [facility] Work Phone: Start: 02-14-2016 End: 02-07-2016 *CMP Complete Metabolic Panel *CMP Complete Metabolic Panel [facility] Work Phone: Start: 02-14-2016 End: 02-07-2016 Lactate dehydrogenase (LDH) *LDH -LDH (Lactate Dehydrogenase) [facility] Work Phone: Start: 02-14-2016 End: [...] Lactate dehydrogenase (LDH) *LDH -LDH (Lactate Dehydrogenase) [facility] Work Phone: Start: 07-26-2015 End: 07-26-2015 Urate *Uric Acid Blood [facility] Work Phone: Start: 02-15-2015 End: 02-14-2016 *CBC with Differential *CBC with Differential [facility] Work Phone: Start: 11-13-2014 End: 02-08-2015 *CBC with Differential *CBC with Differential [facility] Work Phone: Start: 11-13-2014 End: 02-08-2015 *CMP Complete Metabolic Panel *CMP Complete Metabolic Panel [facility] Work Phone: Start: 11-13-2014 End: 02-08-2015 Cancer antigen 125 *CA125 - Cancer Antigen (CA) 125 [facility] Work Phone: Start: 11-13-2014 End: 02-08-2015 Lactate dehydrogenase (LDH) *LDH -LDH (Lactate Dehydrogenase) [facility] Work Phone: Start: 11-13-2014 End: 02-08-2015 Thyroid stimulating hormone (TSH) *TSH [facility] Work Phone: Start: 11-13-2014 End: 02-08-2015 Urate *Uric Acid Blood [facility] Work Phone: Start: 04-04-2013 End: 04-04-2013 *MISC - Miscellaneous Lab Test #1 *MISC - Miscellaneous Lab Test #1 [facility] Work Phone: Start: 04-04-2013 End: 04-04-2013 Histoplasma capsulatum Ab [Presence] in Serum *HISTOPL Histoplasma Antibody [facility] Work Phone: Start: 04-04-2013 End: 04-04-2013 Mycobacterium tuberculosis tuberculin stimulated gamma interferon [Presence] in Blood *QFTBINC Quantiferon TB Gold [facility] Work Phone: Alanine aminotransfe rase [Enzymatic activity/volume] in Serum or Plasma [facility] Albumin [Mass/volume ] in Serum or Plasma [facility] Alkaline phosphatase [Enzymatic activity/volume] in Serum or Plasma [facility] Anion gap in Serum o r Plasma [facility] Anion gap in Serum o r Plasma [facility] Anion gap in Serum o r Plasma [facility] Anion gap in Serum o r Plasma [facility] Anion gap in Serum o r Plasma [facility] Bacteria identified in Blood by Culture Blood Culture [facility] Work Phone: Bacteria identified in Urine by Culture Urine Culture [facility] Work Phone: Bilirubin, total measurement [facility] Blood culture [facility] Work Phone: BUN/Creatinine ratio [facility] BUN/Creatinine ratio [facility] BUN/Creatinine ratio [facility] BUN/Creatinine ratio [facility] BUN/Creatinine ratio [facility] CA 125 measurement [facility] Work Phone: CA 125 measurement [facility] Calcium [Mass/volume ] in Serum or Plasma [facility] Calcium [Mass/volume ] in Serum or Plasma [facility] Calcium [Mass/volume ] in Serum or Plasma [facility] Calcium [Mass/volume ] in Serum or Plasma [facility] Calcium [Mass/volume ] in Serum or Plasma [facility] Cancer Ag 125 [Units/volume] in Serum or Plasma [facility] Carbon dioxide, tota l [Moles/volume] in Central venous blood [facility] Carbon dioxide, tota l [Moles/volume] in Central venous blood [facility] Carbon dioxide, tota l [Moles/volume] in Central venous blood [facility] Carbon dioxide, tota l [Moles/volume] in Central venous blood [facility] Carbon dioxide, tota l [Moles/volume] in Central venous blood [facility] CBC W Auto Different ial panel - Blood [facility] Work Phone: CBC W Auto Different ial panel - Blood [facility] Comprehensive metabo lic 2000 panel - Serum or Plasma [facility] Creatinine [Mass/vol ume] in Serum or Plasma [facility] Creatinine [Mass/vol ume] in Serum or Plasma [facility] Creatinine [Mass/vol ume] in Serum or Plasma [facility] Creatinine [Mass/vol ume] in Serum or Plasma [facility] Creatinine [Mass/vol ume] in Serum or Plasma [facility] CT Abdomen and Pelvi s W contrast IV [facility] Work Phone: CT Abdomen and Pelvi s W contrast IV [facility] CT Chest W contrast IV [facility] Company Work Phone: CT Chest W contrast IV [facility] CT Chest W contrast IV [facility] Erythrocyte mean corpuscular volume determination [facility] Erythrocyte mean corpuscular volume determination [facility] Erythrocyte mean corpuscular volume determination [facility] Glucose [Mass/volume ] in Serum or Plasma [facility] Glucose [Mass/volume ] in Serum or Plasma [facility] Glucose [Mass/volume ] in Serum or Plasma [facility] Glucose [Mass/volume ] in Serum or Plasma [facility] Glucose [Mass/volume ] in Serum or Plasma [facility] Hematocrit [Volume Fraction] of Blood [facility] Hematocrit [Volume Fraction] of Blood [facility] Hematocrit [Volume Fraction] of Blood [facility] Hemoglobin [Mass/vol ume] in Blood [facility] Hemoglobin [Mass/vol ume] in Blood [facility] Hemoglobin [Mass/vol ume] in Blood [facility] Leukocytes [#/volume ] in Blood [facility] Leukocytes [#/volume ] in Blood [facility] Leukocytes [#/volume ] in Blood [facility] Magnesium measurement [facility] Magnesium measurement [facility] Mean corpuscular hem oglobin concentration determination [facility] Mean corpuscular hem oglobin concentration determination [facility] Mean corpuscular hem oglobin concentration determination [facility] Mean corpuscular hem oglobin determination [facility] Mean corpuscular hem oglobin determination [facility] Mean corpuscular hem oglobin determination [facility] Measurement of renal function [facility] Measurement of renal function [facility] Measurement of renal function [facility] Measurement of renal function [facility] Measurement of renal function [facility] Neutrophil count [facility] Neutrophil count [facility] Neutrophil count [facility] Neutrophil percent differential count [facility] Neutrophil percent differential count [facility] Neutrophil percent differential count [facility] Patient Education [facility] Work Phone: Patient referral [facility] Work Phone: Platelets [#/volume] in Blood [facility] Platelets [#/volume] in Blood [facility] Platelets [#/volume] in Blood [facility] Positron emission tomography with computed tomography [facility] Potassium measurement [facility] Potassium measurement [facility] Potassium measurement [facility] Potassium measurement [facility] Potassium measurement [facility] Red blood cell count [facility] Red blood cell count [facility] Red blood cell count [facility] Red cell distributio n width determination [facility] Red cell distributio n width determination [facility] Red cell distributio n width determination [facility] Serum chloride measurement [facility] Serum chloride measurement [facility] Serum chloride measurement [facility] Serum chloride measurement [facility] Serum chloride measurement [facility] Sodium measurement [facility] Sodium measurement [facility] Sodium measurement [facility] Sodium measurement [facility] Sodium measurement [facility] Total protein measurement [facility] Urea nitrogen [Mass/ volume] in Serum or Plasma [facility] Urea nitrogen [Mass/ volume] in Serum or Plasma [facility] Urea nitrogen [Mass/ volume] in Serum or Plasma [facility] Urea nitrogen [Mass/ volume] in Serum or Plasma [facility] Urea nitrogen [Mass/ volume] in Serum or Plasma [facility] Immunizations Immunization Date Immunization Notes Care Provider Fa cility 02-16-2022 tetanus toxoid, redu dee diphtheria toxoid, and acellular pertussis vaccine, adsorbed [facility] 02-14-2021 Covid (Pfizer) [facility] 01-24-2021 Covid (Pfizer) [facility] Payers Date Payer Category Payer Self-pay [id number] 2006 Medicare [id number] 2006 Unknown [id number] Unknown [id number] 2.16.8 40.1.115110.3.579.2.462 Unknown [id number] 2.16.8 40.1.944765.3.579.2.462 Unknown [id number] 2.16.8 40.1.448003.3.579.2.462 Unknown [id number] 2.16.8 40.1.828944.3.579.2.462 Unknown [id number] 2.16.8 40.1.956760.3.579.2.462 Unknown [id number] 2.16.8 40.1.334700.3.579.2.462 Unknown [id number] 2.16.8 40.1.387960.3.579.2.462 Unknown [id number] 2.16.8 40.1.552266.3.579.2.462 Unknown [id number] 2.16.8 40.1.380672.3.579.2.462 Unknown [id number] 2.16.8 40.1.040441.3.579.2.462 Unknown [id number] 2.16.8 40.1.094370.3.579.2.462 Unknown [id number] 2.16.8 40.1.465996.3.579.2.462 Unknown [id number] 2.16.8 40.1.111823.3.579.2.462 Unknown [id number] 2.16.8 40.1.878485.3.579.2.462 Unknown [id number] 2.16.8 40.1.829131.3.579.2.462 Unknown [id number] 2.16.8 40.1.995013.3.579.2.462 Unknown [id number] 2.16.8 40.1.308499.3.579.2.462 Unknown [id number] 2.16.8 40.1.590457.3.579.2.462 Unknown [id number] 2.16.8 40.1.873964.3.579.2.462 Unknown [id number] 2.16.8 40.1.954088.3.579.2.462 Unknown [id number] 2.16.8 40.1.915211.3.579.2.462 Unknown [id number] 2.16.8 40.1.890382.3.579.2.462 Unknown [id number] 2.16.8 40.1.126856.3.579.2.462 Unknown [id number] 2.16.8 40.1.829576.3.579.2.462 Unknown [id number] 2.16.8 40.1.607385.3.579.2.462 Unknown [id number] 2.16.8 40.1.810801.3.579.2.462 Unknown [id number] 2.16.8 40.1.716387.3.579.2.462 Unknown [id number] 2.16.8 40.1.847584.3.579.2.462 Unknown [id number] 2.16.8 40.1.457399.3.579.2.462 Unknown [id number] 2.16.8 40.1.196647.3.579.2.462 Unknown [id number] 2.16.8 40.1.132984.3.579.2.462 Unknown [id number] 2.16.8 40.1.029913.3.579.2.462 Social History Date Type Detail Facility Start: 02-16-2022 End: 12-26-2023 Tobacco smoking status CTIS Unknown if ever smoked [facility] Start: 03-22-2020 Non-smoker [facility] Start: 1940 Sex Assigned At Female [facility] Start: 03-12-2024 End: 06-16-2025 Tobacco smoking status NHIS Never smoked tobacco (finding) [facility] Start: 12-28-2024 Sex Female (finding) [facility] Medical Equipment Procedure Code Equipment Code Equipment Origin al Text Equipment Identifier Dates Insertion, vascular access port ([id number]) Vascular port/catheter ()[id number] FDA Start: 06-22-2025 Goals Date Patient Goal Desired Activity /State Functional Status Date Assessment Result Facility 05-22-2025 Functional status Ambulates [facility] Work Phone: 05-21-2025 Functional status None [facility] Work Phone: 05-19-2025 Functional status Standby Assist [facility] Work Phone: 05-10-2025 Functional status Bathroom [employer]ilege [facility] Work Phone: Mental Status Date Assessment Result Facility 06-22-2025 Cognitive function Level Of Cons ciousness Follows Commands;Drowsy [facility] Work Phone: 05-22-2025 Cognitive function Voice/Name [facility] Work Phone: 05-19-2025 Cognitive function Voice/Name [facility] Work Phone: 05-10-2025 Cognitive function Awake;Alert;Appropriat e [facility] Work Phone: Clinical Notes 10-08-2021 to 06-26-2025 Note Date & Type Note Facility 06-26-[address] [facility] 06-26-2025 Progress note Note Date/Time June 26, 2025 9:17am [facility] [address] [address] OFFICE VISIT Date of Service: 06/26/25 0841 MR#: [id number] Acct: [id number] Name: LUZ CLANCY Rep #: [id number] : 1940 From: Carlos Bernal MD Age/Sex: 85/F Location: [facility] Status: Signed HPI Subjective Date of Service [...] for follow up to start. Feeling well. [facility] Medical History Thyroid disease Wears glasses Wears [...] Plan: To Start C1 Keytruda and Carboplatin [id number], Taxol weekly D1 today, D8 next week, [...] Date (if applicable) CC: MARILEE Interiano ~ [place] [employer] Work Phone: 1(739) 112-413809-11-2025 Consult note Author Rolly Casey [facility] Note Date/Time June 22, 2025 9:32am [facility] Medical Records Department [facility] [place] [address] Pre-Anesthesia Evaluation 06/22/25922 MR#: [id number] Acct: [id number] Name: LUZ CLANCY Rep #:[id number] : 1940 85 From: Rolly Casey MD PCP: MARILEE Partida Status:REG SDC Y Race: C Location: [place] [address] ASA Classification* ASA Classification ASA Classification: 3 [...] POSS LEFT Anesthesia History 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 - nuclear medicine tech: Anesthesia History - nuclear medicine tech Hx Hospitalization Yes: BOWEL BLOCKAGE 05/29/25 06/16/25 [...] sips of water?: Yes PONV PONV - nuclear medicine tech: PONV - nuclear medicine tech Female Yes 06/16/25 09:01 HX of Motion [...] 06/22/25 08:47 Respiratory Assessment Respiratory Assessment - nuclear medicine tech: Respiratory Tract Infection Hx - nuclear medicine tech Hx Respiratory Tract Infection No 06/16/25 09:01 STOP Sleep Apnea STOP Sleep Apnea - nuclear medicine tech: STOP Sleep Apnea - nuclear medicine tech Hx Hypertension Yes: CONTROLLED WITH MED 06/16/25 [...] Tobacco Use History Tobacco Use History - nuclear medicine tech: Tobacco Use History - nuclear medicine tech Tobacco Use Smoking Status Never smoker 06/16/25 09:01 Hx Tobacco Use No 06/16/25 09:01 Years Smoking Packs Smoked per Day Smoking Cessation Date was within the last 15 years Hx Smoking Cessation Date Hx Smoking Cessation Counseling Hematologic Medial History Hematologic Hx - 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 Hx of Blood Transfusion No 06/16/25 09:01 [...] confused, unrespo /Reproduction History /Reproductive History - nuclear medicine tech: /Reproductive Hx- nuclear medicine tech Hx Now No 06/16/25 09:01 Gestational Age [...] MD Cosigner Signature: Date CC: ~ Signed [facility] Work Phone: 1(217) 982-228509-11-2025 Radiology Diagnostic study note [facility] Imaging Services [address] [place], [place] [address] CXR for Line Placement MR#: [id number] Acct: [id number] Name: LUZ CLANCY Rep #: [id number] : 1940 F 85 From: Diego Perez MD PCP: MARILEE Partida Status: REG [facility] Study:CXR for Line Placement Date of Exam: 06/22/25 Exam# [id number] Ordering Dr: Isaiah Gresham MD PROCEDURE: CXR [...] MARILEE Interiano; Dr. Isaiah Lerner MD ~ Circulation Clerk: Signed [facility]09-11-2025 Consult note [facility] Medical Records Department [address] [place] [address] Anesthesia Postop Eval I 06/22/25 1034 MR#: [id number] Acct: [id number] Name: LUZ CLANCY Rep #:[id number] : 1940 85 From: Tamra BUCHANAN PCP: MARILEE Partida Status:REG [facility] Y Race: C Location: [place] [address] Anesthesia: Postop Eval I Current Vital Signs [...] Postop Eval 1 completed: Yes 06/22/25 1034 PASTRY WRAPPER> Date _ Tamra Garcia Signature: Date CC: ~ Signed [facility]09-11-2025 Discharge summary [facility] Medical Records Department [address] [place] [address] Instructions for Home/Discharge Instructions 06/22/25 1033 MR#: [id number] Acct: [id number] Name: LUZ CLANCY Rep #:[id number] : 1940 85 From: Isaiah gibson MD PCP: Lela Interiano NP-C Status:REG NCC Discharge Instructions Procedure Port-A-Cath Diet Discharge Diet: [...] With: Isaiah Lerner MD When: as needed [phone] Test Results: Test results from this visit will be discussed in further detail at your follow- up appointment, if applicable. Discharge Plan Admission Attending Provider: Isaiah Lerner Primary Care Provider: Lela Interiano NP Instructions Print Language: Cambodian Discharge Orders/Prescriptions Prescriptions: No Action Adult 51 [...] MD CC: SOURAV-C Lela Interiano ~ Signed [facility]09-11-2025 Procedure note [facility] Medical Records Department [address] [place] [address] Operative Report 06/22/25 1029 MR#: [id number] Acct: [id number] Name: LUZ CLANCY Rep #:[id number] : 1940 85 From: Isaiah gibson MD PCP: MARILEE Partida Status:[facility] Location: [place] [address] Operative Report (Standard) Operative Information Date of Procedure: 06/22/25 Pre-Operative Diagnosis: Need for vascular access for chemotherapy Post-Operative Diagnosis: Same Surgery/Procedure Performed: Ultrasound and fluoroscopy guided right chest port placement utilizingright IJ dry room attendant: No Type of Anesthesia: Local MAC RN [...] apply: Implanted device Implanted device details: 8 [place] PowerPort Estimated Blood Loss: 5 Specimen collected: [...] MARILEE Interiano; Dr. Isaiah Lerner MD~ Signed [facility]09-11-2025 History and physical note [facility] Medical Records Department [address] [place] [address] History & Physical Exam 06/22/25 0933 MR#: [id number] Acct: [id number] Name: LUZ CLANCY Taiwo Rep #:[id number] : 1940 85 From: Isaiah gibson MD PCP: MARILEE Partida Status:[facility] Location: [place] [address] History and Physical Date of Admission: 06/22/25 [...] willing to proceed. Isaiah Lerner MD Pager: [facility] [address] [place] [address], [address] [place] [address] Office: I have examined the patient and the H&P has been reviewed. There are no clinicalchanges since date of exam. 06/22/25 0934 Cosigner Signature (if applicable): CC: MARILEE Interiano; Dr. Isaiah Lerner MD~ Signed [facility]09[facility]11[facility] Consult note [facility] Medical Records Department [address] [place] [address] Pre-Anesthesia Evaluation 06/22/25 0923 MR#: [id number] Acct: [id number] Name: LUZ CLANCY Rep #:[id number] : 1940 85 From: Rolly Casey MD PCP: MARILEE Partida Status:REG SDC Y Race: C Location: [place] [address] ASA Classification* ASA Classification ASA Classification: 3 [...] POSS LEFT Anesthesia History Anesthesia History - nuclear medicine tech: Anesthesia History - nuclear medicine tech Hx Hospitalization Yes: BOWEL BLOCKAGE 05/29/25 06/16/25 [...] sips of water?: Yes PONV PONV - nuclear medicine tech: PONV - nuclear medicine tech Female Yes 06/16/25 09:01 HX of Motion [...] 06/22/25 08:47 Respiratory Assessment Respiratory Assessment - nuclear medicine tech: Respiratory Tract Infection Hx - nuclear medicine tech Hx Respiratory Tract Infection No 06/16/25 09:01 STOP Sleep Apnea STOP Sleep Apnea - nuclear medicine tech: STOP Sleep Apnea - nuclear medicine tech Hx Hypertension Yes: CONTROLLED WITH MED 06/16/25 [...] Tobacco Use History Tobacco Use History - nuclear medicine tech: Tobacco Use History - nuclear medicine tech Tobacco Use Smoking Status Never smoker 06/16/25 09:01 Hx Tobacco Use No 06/16/25 09:01 Years Smoking Packs Smoked per Day Smoking Cessation Date was within the last 15 years Hx Smoking Cessation Date Hx Smoking Cessation Counseling Hematologic Medial History Hematologic 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 [address] [place] [address] OFFICE VISIT Date of Service: 06/15/25 MR#: [id number] Acct: [id number] Name: LUZ CLANCY Rep #: [id number] : 1940 Provider: Dr. Deborah Lerner MD Age/Sex: 85/F Location: [facility] Status: Signed Intake Vital Signs 06/08/25 [...] no.9 4 4,000 mmu cells PO DA NUIRS 03/23/23 06/15/25 History billion cell capsule (Adult [...] willing to proceed. Isaiah Lerner MD Pager: [facility] [address] [place] [address], [address] [place] [address] Office: Coding Level of Care Code Off vis,est,level 3 Diagnoses Encounter for insertion of venous access port Z45.2 Clinical Quality Measures Falls Risk Screening/Assistive Devices Have you fallen in the past year?: No 06/15/25 0957 rinku SANTIAGO> Date _ Isaiah Lerner MD [facility] Signature: Date (if applicable) CC: MARILEE Interiano ~ [facility]09-04-2025 Progress note Author Isaiah Lerner [facility] Note Date/Time June 15, 2025 9:57am [facility] [address] [place] [address] OFFICE VISIT Date of Service: 06/15/25 MR#: [id number] Acct: [id number] Name: LUZ CLANCY Rep #: [id number] : 1940 Provider: Dr. Deborah Lerner MD Age/Sex: 85/F Location: [facility] Status: Signed Intake Vital Signs 06/08/25 [...] willing to proceed. Isaiah Lerner MD Pager: [facility] [address] [place] [address] [address] [place] [address] Office: Coding Level of Care Code Off vis,est,level 3 Diagnoses Encounter for insertion of venous access port Z45.2 Clinical Quality Measures Falls Risk Screening/Assistive Devices Have you fallen in the past year?: No 06/15/25 0957 <Electronically signed by Isaiah dobbs MD> Date _ Isaiah Lerner MD [facility] Signature: Date (if applicable) CC: MARILEE Interiano ~ [facility] [employer] Work Phone: 1(805) 309-181308-12-2025 [facility]08-11-2025 Consult note [facility] Medical Records Department [address] [place] [address] Counseling Note - Pharmacy 05/22/25 1316 MR#: [id number] Acct: [id number] Name: LUZ CLANCY Rep #:[id number] : 1940 85 From: Mavis Vizcaino PCP: Lela Jaydon, [employer] DES[employer]-C Status:ADM IN Y Location: [place] [address] Med Reconciliation Pharmacy Service has performed discharge [...] Signature (if applicable): Date CC: ~ Signed [facility]08-11-2025 Consult note Author Mavis Vizcaino [facility] Note Date/Time May 22, 2025 4: 25pm [facility] Medical Records Department [address] [place] [address] Counseling Note - Pharmacy 05/22/25 1316 MR#: [id number] Acct: [id number] Name: LUZ CLANCY Rep #:[id number] : 1940 85 From: Mavis Vizcaino PCP: MARILEE Partida Status:ADM IN Y Location: [place] [address] Med Reconciliation Pharmacy Service has performed discharge [...] Signature (if applicable): Date CC: ~ Signed [facility] Work Phone: 1(650) 237-558908-11-2025 Progress note Author Isaiah Lerner [facility] Note Date/Time May 22, 2025 12 :17pm [facility] Medical Records Department [address] [place] [address] Progress Note - Surgery 05/22/25 1216 MR#: [id number] Acct: [id number] Name: LUZ CLANCY Rep #:[id number] : 1940 85 From: Isaiah gibson MD PCP: MARILEE Partida Status:ADM IN Location: [place] [address] Subjective Subjective This morning the patient reports [...] (Auto) 75.5 H, Lymph % (Auto) 12.3 L,[place]idence % (Auto) 10.2 H, Eos % (Auto) [...] lower lobe abutting the heart. Reading Location: [place] [address] Physical Exam Const oriented x3 and no [...] needed. Isaiah Lerner MD Pager: [facility] [address] [place] [address], [address] [place] [address] Office: 05/22/25 1217 <Electronically signed by Isaiah Lerner MD> Cosigner Signature (if applicable): CC: ~ Signed [facility] Work Phone: 1(496) 210-678008-11-2025 Discharge summary Author Joseph Lindsey [facility] Note Date/Time May 22, 2025 12 :06pm [facility] Medical Records Department [address] [place] [address] Instructions for Home/Discharge Instructions 05/22/25 1156 MR#: [id number] Acct: [id number] Name: LUZ CLANCY Rep #:[id number] : 1940 85 From: Joseph turcios MD [...] by Joseph Lindsey MD>Joseph Lindsey MD CC: [employer] DES[employer]ER-C Lela Interiano; Dr. Isaiah Lerner MD; Dr. Najma Cates MD; Dr. Brian Negrete MD ~ Signed [facility] Work Phone: 1(925) 359-689908-11-2025 Progress note [facility] Medical Records Department [address] [place] [address] Progress Note - Surgery 05/22/25 1216 MR#: [id number] Acct: [id number] Name: LUZ CLANCY Rep #:[id number] : 1940 85 From: Isaiah gibson MD PCP: MARILEE Partida Status:ADM IN Location: [place] [address] Subjective Subjective This morning the patient reports [...] %(Auto) 75.5 H, Lymph % (Auto) 12.3 L,[place] % (Auto) 10.2 H, Eos % (Auto) [...] lower lobe abutting the heart. Reading Location: [facility] Physical Exam Const oriented x3 and [...] needed. Isaiah Lerner MD Pager: [facility] [address] [facility], [address] [place] [address] Office: 05/22/25 1217 Cosigner Signature (if applicable): CC: ~ Signed [facility]08-11-2025 Discharge summary [facility] Medical Records Department [address] [place] [address] Instructions for Home/Discharge Instructions 05/22/25 1156 MR#: [id number] Acct: [id number] Name: LUZ CLANCY Rep #:[id number] : 1940 85 From: Joseph turcios MD [...] MD; Dr. Brian Negrete MD ~ Signed [facility]08-11-2025 Radiology Diagnostic study note [facility] Imaging Services [address] [place], [place] [address] Abdomen/Pelvis WITH Contrast MR#: [id number] Acct: [id number] Name: LUZ CLANCY Rep #: [id number] : 1940 F 85 From: Diego Perez MD PCP: MARILEE Partida Status: ADM IN Study:Abdomen/Pelvis WITH Contrast Date of Ex am: 05/22/25 Exam# [id number] Ordering Dr: Isaiah Gresham MD PROCEDURE: ABDOMEN/PELVIS [...] lower lobe abutting the heart. Reading Location: [place] [address] CC: MARILEE Interiano; Dr. Isaiah Lerner MD ~ Circulation Clerk: Signed [facility]08-10-2025 Progress note Author Geovanna Nino [facility] Note Date/Time May 21, 2025 9: 36am [facility] Medical Records Department [address] [place] [address] Progress Note - Surgery 05/21/25933 MR#: [id number] Acct: [id number] Name: LUZ CLANCY Rep #:[id number] : 1940 85 From: Geovanna Nino MD PCP: MARILEE Partida Status:ADM IN Location: [place] [address] Subjective Subjective Patient states she still having [...] (Auto) 71.3 H, Lymph % (Auto) 13.8 L,Providence % (Auto) 13.2 H, Eos % (Auto) [...] the OR schedule. Geovanna Nino M.D. Pager: [phone] [facility] [address] [place] [address], [facility], [address] [place] [address] Office: [phone] Charges/Coding Multi Select Codes Visit Charges Visit Charges: 85790 Subs Hosp L2 05/21/25 0949 <Electronically signed by Geovanna Nino MD> Cosigner Signature (if applicable): CC: ~ Signed [facility] Work Phone: 1(988) 625-902208-10-2025 Radiology Diagnostic study note [facility] Imaging Services [address] [place], [place] [id number] Abd Inc Decub and/or Erect MR#: [id number] Acct: [id number] Name: LUZ CLANCY Rep #: [id number] : 1940 F 85 From: Maribeth Kent MD PCP: MARILEE Partida Status: ADM IN Study:Abd Inc Decub and/or Erect Date of Exam : 05/21/25 Exam# [id number] Ordering Dr: Juan Manuel Negrete MD PROCEDURE: [...] Erect IMPRESSION: No acute abnormality. Reading Location: [facility] CC: [employer] DESIGNER-C Lela Interiano; Dr. Brian Negrete MD ~ Circulation Clerk: Signed [facility]08-10-2025 Progress note Author Brian Negrete [facility] Note Date/Time May 21, 2025 8: 53am [facility] Medical Records Department [address] [place] [address] Progress Note - Hospitalist 05/21/25 0831 MR#: [id number] Acct: [id number] Name: LUZ CLANCY Rep #:[id number] : 1940 85 From: Brian Negrete MD PCP: MARILEE Partida Status:ADM IN Location: [place] [address] Reason for Visit Chief Complaint: Abdominal pain, [...] (Auto) 71.3 H, Lymph % (Auto) 13.8 L,Providence % (Auto) 13.2 H, Eos % (Auto) [...] to therapy Charges/Coding Visit Charges Inpatient E&M: 40304 Subs Hosp L2 05/21/25 3699 <Electronically signed by Brian Negrete MD> Cosigner Signature (if applicable): CC: ~ Signed [facility] Work Phone: 1(779) 720-365508-10-2025 Progress note [facility] Medical Records Department [address] [place] [address] Progress Note - Surgery 05/21/2534 MR#: [id number] Acct: [id number] Name: LUZ CLANCY Rep #:[id number] : 1940 85 From: Geovanna Nino MD PCP: Lela Interiano [employer] SYSTEMS DESIGNERTravisC Status:ADM IN Location: [place] [address] Subjective Subjective Patient states she still having [...] %(Auto) 71.3 H, Lymph % (Auto) 13.8 L,Providence % (Auto) 13.2 H, Eos % (Auto) [...] the OR schedule. Geovanna Nino M.D. Pager: [phone] [facility] [address] [place] [address], [facility], [address] [place] [address] Office: [phone] Charges/Coding Multi Select Codes Visit Charges Visit Charges: 33974 Subs Hosp L2 05/21/25 0936 Cosigner Signature (if applicable): CC: ~ Signed [facility]08-10-2025 Progress note [facility] Medical Records Department [address] [place] [address] Progress Note - Hospitalist 05/21/25 0831 MR#: [id number] Acct: [id number] Name: LUZ CLANCY Rep #:[id number] : 1940 85 From: Brian Negrete MD PCP: MARILEE Partida Status:ADM IN Location: [place] [address] Reason for Visit Chief Complaint: Abdominal pain, [...] %(Auto) 71.3 H, Lymph % (Auto) 13.8 L,Providence % (Auto) 13.2 H, Eos % (Auto) [...] to therapy Charges/Coding Visit Charges Inpatient E&M: 07010 Subs Hosp L2 05/21/25 0853 Cosigner Signature (if applicable): CC: ~ Signed [facility]08-09-2025 Progress note Author Brian Negrete [facility] Note Date/Time May 20, 2025 10: 28am [facility] Medical Records Department [address] [place] [address] Progress Note - Hospitalist 05/20/25 0729 MR#: [id number] Acct: [id number] Name: LUZ CLANCY Rep #:[id number] : 1940 85 From: Brian Negrete MD PCP: Lela Interiano [employer] DESIGNER-Lilian Status:ADM IN Location: [place] [address] Reason for Visit Chief Complaint: Abdominal pain, [...] 79.3 H, Lymph % (Auto) 6.6 L, Providence % (Auto) 12.8 H, Eos % (Auto) [...] (Auto) 67.1, Lymph % (Auto) 13.8 L, Providence % (Auto) 16.2 H, Eos % (Auto) [...] a partial distal small-bowel obstruction. Reading Location: [place] [address] Physical Exam Narrative GENERAL: cooperative HEENT: Atraumatic; [...] Subcu Lovenox. Charges/Coding Visit Charges Inpatient E&M: 80629 Subs Hosp L2 05/20/25 1028 <Electronically signed by Brian Negrete MD> Cosigner Signature (if applicable): CC: ~ Signed [facility] Work Phone: [phone]) 821-491908-09-2025 Progress note Author Geovanna Nino [facility] Note Date/Time May 20, 2025 8:4 0am [facility] Medical Records Department [address] [place] [address] Progress Note - Surgery 05/20/25 0838 MR#: [id number] Acct: [id number] Name: LUZ CLANCY Rep #:[id number] : 1940 85 From: Geovanna Nino MD PCP: MARILEE Partida Status:ADM IN Location: [place] [id number]- [id number] Subjective Subjective Patient is having flatus [...] (Auto) 67.1, Lymph % (Auto) 13.8 L, Providence % (Auto) 16.2 H, Eos % (Auto) [...] a partial distal small-bowel obstruction. Reading Location: [place] [address] Physical Exam Const oriented x3 and no apparent distress Resp normal respiratory effort Cardio regular rate GI soft to palpation GI Narrative: Mild distention, nontender, no peritoneal signs Assessment & Plan Assessment/Plan (1) Intractable nausea and vomiting: PLAN: Patient's KUB does look slightly improved to me and patient is having flatus we will start clears and still encourage ambulation. Geovanna Nino M.D. Pager: [phone] [facility] [address] [place] [address], [facility], [address] [place] [address] Office: [phone] Charges/Coding Visit Charges Inpatient E&M: 22835 Subs Hosp L2 05/20/25 0840 <Electronically signed by Geovanna Nino MD> Cosigner Signature (if applicable): CC: ~ Signed [facility] Work Phone: [phone] 779-431208-09-2025 Progress note [facility] Medical Records Department [address] [place] [address] Progress Note - Hospitalist 05/20/25728 MR#: [id number] Acct: [id number] Name: LUZ CLANCY Rep #:[id number] : 1940 85 From: Brian Negrete MD PCP: MARILEE Partida Status:ADM IN Location: [place] [address] Reason for Visit Chief Complaint: Abdominal pain, [...] 79.3 H, Lymph % (Auto) 6.6 L, Providence % (Auto) 12.8 H, Eos % (Auto) [...] (Auto) 67.1, Lymph % (Auto) 13.8 L, Providence % (Auto) 16.2 H, Eos % (Auto) [...] a partial distal small-bowel obstruction. Reading Location: [place] [address] Physical Exam Narrative GENERAL: cooperative HEENT: Atraumatic; [...] Subcu Lovenox. Charges/Coding Visit Charges Inpatient E&M: 48872 Subs Hosp L2 05/20/25 1028 Cosigner Signature (if applicable): CC: ~ Signed [facility]08-09-2025 Progress note [facility] Medical Records Department [address] [place] [address] Progress Note - Surgery 05/20/25837 MR#: [id number] Acct: [id number] Name: LUZ CLANCY Rep #:[id number] : 1940 85 From: Geovanna Nino MD PCP: BRYAN PartidaC Status:ADM IN Location: [place] [address] Subjective Subjective Patient is having flatus and [...] (Auto) 67.1, Lymph % (Auto) 13.8 L, Providence % (Auto) 16.2 H, Eos % (Auto) [...] a partial distal small-bowel obstruction. Reading Location: [place] [address] Physical Exam Const oriented x3 and no apparent distress Resp normal respiratory effort Cardio regular rate GI soft to palpation GI Narrative: Mild distention, nontender, no peritoneal signs Assessment & Plan Assessment/Plan (1) Intractable nausea and vomiting: PLAN: Patient's KUB does look slightly improved to me and patient is having flatus we will start clears and still encourage ambulation. Geovanna Nino M.D. Pager: [phone] [facility] [address] [place] [address], [facility], [address] [place] [address] Office: [phone] Charges/Coding Visit Charges Inpatient E&M: 75144 Subs Hosp L2 05/20/25 0840 Cosigner Signature (if applicable): CC: ~ Signed [facility]08-09-2025 Radiology Diagnostic study note [facility] Imaging Services [address] [place] [address] Abdomen Single View (Portable) MR#: [id number] Acct: [id number] Name: LUZ CLANCY Rep #: [id number] : 1940 F 85 From: Katharine Kingsley MD PCP: MARILEE Partida Status: ADM IN Study:Abdomen Single View (Portable) Date of Exam: 05/20/25 Exam# [id number] Ordering Dr: Geovanna Nino MD PROCEDURE: ABDOMEN [...] a partial distal small-bowel obstruction. [facility] CC: [employer] DESIGNER-C Lela Interiano; Dr. Geovanna Nino MD ~ Circulation Clerk: Signed [facility]08-08-2025 Progress note Author Brian Negrete [facility] Note Date/Time May 19, 2025 9:2 3am [facility] Medical Records Department [address] [place] [address] Progress Note - Hospitalist 05/19/25 0748 MR#: [id number] Acct: [id number] Name: LUZ CLANCY Rep #:[id number] : 1940 85 From: Brian Negrete MD PCP: MARILEE Partida Status:ADM [place] Location: [place] [address] Reason for Visit Chief Complaint: Abdominal pain, [...] 91.6 H, Lymph % (Auto) 3.3 L, Providence % (Auto) 4.6, Eos % (Auto) 0.0, [...] Sl. Cloudy, Urine pH 7.0, Ur Specific Blaine 1.010, Urine Protein 30 H, Urine Glucose [...] 79.3 H, Lymph % (Auto) 6.6 L, Providence % (Auto) 12.8 H, Eos % (Auto) [...] change since the prior study Reading Location: [facility] KUB X-Ray 05/19/25 04:50 IMPRESSION: Persistent small-bowel obstruction, transition point in the ileum. Refer to recent CT report. Reading Location: [place] [address] Physical Exam Narrative GENERAL: cooperative HEENT: Atraumatic; [...] Subcu Lovenox. Charges/Coding Visit Charges Inpatient E&M: 47782 Subs Hosp L2 05/19/25 0923 <Electronically signed by Brian Negrete MD> Cosigner Signature (if applicable): CC: ~ Signed [facility] Work Phone: 1(502) 560-439508-08-2025 Consult note Author Isaiah Lerner [facility] Note Date/Time May 19, 2025 8:5 5am [facility] Medical Records Department [address] [place] [address] Consultation - Surgical 05/19/25 0852 MR#: [id number] Acct: [id number] Name: LUZ CLANCY Rep #:[id number] : 1940 85 From: Isaiah gibson MD PCP: MARILEE Partida Status:ADM [place] Location: [place] [address] Assessment & Plan Assessment/Plan (1) Intractable nausea [...] Thursday. Isaiah Lerner MD Pager: [facility] [address] [place] [address] [address], [address] [place] [address] Office: HPI Consult Data Date of Consult: [...] never had a bowel obstruction inthe past. [facility] Medical History CKD (chronic kidney disease), stage [...] 91.6 H, Lymph % (Auto) 3.3 L, Providence % (Auto) 4.6, Eos % (Auto) 0.0, [...] Sl. Cloudy, Urine pH 7.0, Ur Specific Blaine 1.010, Urine Protein 30 H, Urine Glucose [...] 79.3 H, Lymph % (Auto) 6.6 L, Providence % (Auto) 12.8 H, Eos % (Auto) [...] change since the prior study Reading Location: [facility] KUB X-Ray 05/19/25 04:50 IMPRESSION: Persistent small-bowel obstruction, transition point in the ileum. Refer to recent CT report. Reading Location: [place] [address] 05/19/25 08 <Electronically signed by Isaiah Lerner MD> Cosigner Signature (if applicable): CC: MARILEE Interiano~ Signed [facility] Work Phone: 1(860) 450-966608-08-2025 Progress note [facility] Medical Records Department [address] [place] [address] Progress Note - Hospitalist 05/19/2548 MR#: [id number] Acct: [id number] Name: LUZ CLANCY Rep #:[id number] : 1940 85 From: Brian Negrete MD PCP: MARILEE Partida Status:ADM [place] Location: [place] [address] Reason for Visit Chief Complaint: Abdominal pain, [...] 91.6 H, Lymph % (Auto) 3.3 L, Providence % (Auto) 4.6, Eos % (Auto) 0.0, [...] Sl. Cloudy, Urine pH 7.0, Ur Specific Blaine 1.010, Urine Protein 30 H, Urine Glucose [...] 79.3 H, Lymph % (Auto) 6.6 L, Providence % (Auto) 12.8 H, Eos % (Auto) [...] change since the prior study Reading Location: [facility] KUB X-Ray 05/19/25 04:50 IMPRESSION: Persistent small-bowel obstruction, transition point in the ileum. Refer to recent CT report. Reading Location: [place] [address] Physical Exam Narrative GENERAL: cooperative HEENT: Atraumatic; [...] Subcu Lovenox. Charges/Coding Visit Charges Inpatient E&M: 87661 Subs Hosp L2 05/19/25 0923 Cosigner Signature (if applicable): CC: ~ Signed [facility]08-08-2025 Consult note [facility] Medical Records Department [address] [place] [address] Consultation - Surgical 05/19/25 0852 MR#: [id number] Acct: [id number] Name: LUZ CLANCY Rep #:[id number] : 1940 85 From: Isaiah gibson MD PCP: MARILEE Partida Status:ADM [facility] Location: [place] [address] Assessment & Plan Assessment/Plan (1) Intractable nausea [...] Thursday. Isaiah Lerner MD Pager: [facility] [address] [place] [address], [address] [place] [address] Office: HPI Consult Data Date of Consult: [...] never had a bowel obstruction inthe past. [facility] Medical History CKD (chronic kidney disease), stage [...] 91.6 H, Lymph % (Auto) 3.3 L, Providence % (Auto) 4.6, Eos % (Auto) 0.0, [...] Sl. Cloudy, Urine pH 7.0, Ur Specific Blaine 1.010, Urine Protein 30 H, Urine Glucose [...] 79.3 H, Lymph % (Auto) 6.6 L, Providence % (Auto) 12.8 H, Eos % (Auto) [...] change since the prior study Reading Location: [facility] KUB X-Ray 05/19/25 04:50 IMPRESSION: Persistent small-bowel obstruction, transition point in the ileum. Refer to recent CT report. Reading Location: [place] [address] 05/19/25 0855 Cosigner Signature (if applicable): CC: MARILEE Interiano~ Signed [facility]08-08-2025 Radiology Diagnostic study note [facility] Imaging Services [address] [place] [address] Abdomen Single View (Portable) MR#: [id number] Acct: [id number] Name: LUZ CLANCY Rep #: [id number] : 1940 F 85 From: Katharine Kingsley MD PCP: MARILEE Partida Status: ADM [place] Study:Abdomen Single View (Portable) Date of Exam: 05/19/25 Exam# [id number] Ordering Dr: Lucia Cates MD PROCEDURE: ABDOMEN [...] Refer to recent CT report. Reading Location: [place] [address] CC: MARILEE Interiano; Dr. Najma Cates MD ~ Circulation Clerk: Signed [facility]08-08-2025 History and physical note Author Najma Cates [facility] Note Date/Time May 18, 2025 11: 21pm [facility] Medical Records Department [address] [place] [address] H&P Exam - Hospitalist 05/18/252151 MR#: [id number] Acct: [id number] Name: LUZ CLANCY Rep #:[id number] : 1940 85 From: Najma Cates MD PCP: Lela Interiano, [employer] DES[employer]ER-C Status:ADM [place] Location: [place] [address] HPI - General General Date of Admission: 05/18/25 Date of Service: 05/18/25 Chief Complaint: Abdominal pain, bloating, N/V. HPI Narrative The patient is an 85 y/o F w/ PMHx: CKD stage II per GFR trending, HTN, GERD, HxUterine CA/endometrial s/p PRADEEP as well as chemotherapy/radiation 2012, Hypothyroidism who presents to the [facility] ED on 05/18/25 with history of onset [...] 1. ED discussed case with Dr. Lerner. [facility] Medical History CKD (chronic kidney disease), stage [...] 91.6 H, Lymph % (Auto) 3.3 L, Providence % (Auto) 4.6, Eos % (Auto) 0.0, [...] Sl. Cloudy, Urine pH 7.0, Ur Specific Blaine 1.010, Urine Protein 30 H, Urine Glucose [...] change since the prior study Reading Location: [facility] Assessment & Plan Assessment/Plan (1) Intractable nausea and vomiting: PLAN: Plan The patient is an 85 y/o F w/ PMHx: CKD stage II per GFR trending, HTN, GERD, HxUterine CA/endometrial s/p PRADEEP as well as chemotherapy/radiation 2012, Hypothyroidism who presents to the [facility] ED on 05/18/25 with history of onset [...] 16 minutes. Charges/Coding Visit Charges Inpatient E&M: 13891 Init Hosp L3 Procedures Hospitalists Procedures: 88082 Advncd Care Plan 30 Min 05/18/251 <Electronically signed by Najma Cates MD> Cosigner Signature (if applicable): CC: MARILEE Interiano; Dr. Najma Cates MD~ Signed [facility] Work Phone: 1(630) 196-508508-08-2025 Discharge summary Author Jeffery Mosquedagett [facility] Note Date/Time May 18, 2025 10: 12pm [facility] Medical Records Department [address] [place] [address] Emergency Department Summary 05/18/25 MR#: [id number] Acct: [id number] Name: LUZ CLANCY Rep #:[id number] : 1940 85 From: Jeffery escobar DO [...] intact Psych: Cooperative, appropriate mood and affect [facility] Medical History (Reviewed 05/16/25 @ 11:47 by Laney Ferreira [employer] SYSTEM[employer] DESIGNER, [employer] SYSTEMS DESIGNER-C) Tachycardia Diverticulosis Uncontrolled hypertension Cancer Gastric reflux [...] Intermediate Hives Verified 05/18/25 17:46 Family History (Reviewed 05/16/25 @ 11:47 by Laney Ferreira [employer]S DESIGNER, [employer]S DESIGNER-C) Mother Colon cancer Breast cancer Daughter Thyroid disorder Surgical History (Reviewed 05/16/25 @ 11:47 by Laney Ferreira [employer] SYSTEMS DESIGNER, [employer] SYSTEMS DESIGNER-C) History of tubal ligation History of hysterectomy [...] 91.6 H Lymph % (Auto) 3.3 L Providence % (Auto) 4.6 Eos % (Auto) 0.0 [...] Sl. Cloudy Urine pH 7.0 Ur Specific Blaine 1.010 Urine Protein 30 H Urine Glucose [...] change since the prior study Reading Location: [facility] Discharge Plan Triage Chief Complaint: Abd Pain [...] Provider: Lela Interiano NP Referrals: Lela Interiano [employer] DESIGNER, [employer] DESIGNER-C [Primary Care Provider] - Print Language: Cambodian What to do if you have Problems For any increased pain, shortness of breath, bleeding, nausea or vomiting, chestpain, or any unexpected problems, contact your Primary Care Provider. Call [facility] ([phone]) or report to the closest Emergency Room. Call 911 if necessary. 05/18/252201 <Electronically signed by Jeffery Mcclain DO> Cosigner Signature (if applicable): CC: [employer] DESIGNER-C Lela Interiano ~ Signed [facility] Work Phone: 1(517) 987-802908-07-2025 History and physical note [facility] Medical Records Department [facility] [place] [address] H&P Exam - Hospitalist 05/18/252151 MR#: [id number] Acct: [id number] Name: LUZ CLANCY Rep #:[id number] : 1940 85 From: Najma Cates MD PCP: Lela Interiano, [employer] DESIGNER-Lilian Status:ADM [place] Location: [place] [address] HPI - General General Date of Admission: 05/18/25 Date of Service: 05/18/25 Chief Complaint: Abdominal pain, bloating, N/V. HPI Narrative The patient is an 85 y/o F w/ PMHx: CKD stage II per GFR trending, HTN, GERD, HxUterine CA/endometrial s/p PRADEEP as well as chemotherapy/radiation 2012, Hypothyroidism who presents to the [facility] ED on 05/18/25 with history of onset [...] 1. ED discussed case with Dr. Lerner. [facility] Medical History CKD (chronic kidney disease), stage [...] 91.6 H, Lymph % (Auto) 3.3 L, Providence % (Auto) 4.6, Eos % (Auto) 0.0, [...] Sl. Cloudy, Urine pH 7.0, Ur Specific Blaine 1.010, Urine Protein 30 H, Urine Glucose [...] change since the prior study Reading Location: [facility] Assessment & Plan Assessment/Plan (1) Intractable nausea and vomiting: PLAN: Plan The patient is an 85 y/o F w/ PMHx: CKD stage II per GFR trending, HTN, GERD, HxUterine CA/endometrial s/p PRADEEP as well as chemotherapy/radiation 2012, Hypothyroidism who presents to the [facility] ED on 05/18/25 with history of onset [...] 16 minutes. Charges/Coding Visit Charges Inpatient E&M: 79656 Init Hosp L3 Procedures Hospitalists Procedures: 67516 Advncd Care Plan 30 Min 05/18/25 2321 Cosigner Signature (if applicable): CC: MARILEE Interiano; Dr. Najma Cates MD~ Signed [facility]08-07-2025 Discharge summary [facility] Medical Records Department [address] [place] [address] Emergency Department Summary 05/18/25 MR#: [id number] Acct: [id number] Name: LUZ CLANCY Rep #:[id number] : 1940 85 From: Jeffery escobar DO PCP: MARILEE Partida Status:[facility] ER Location: ED ADDENDUM by Dr. [...] mood and affect PFSH PFSH Medical History (Reviewed 05/16/25 @ 11:47 by Laney Ferreira [employer]S DESIGNER, [employer]S DESIGNER-C) Tachycardia Diverticulosis Uncontrolled hypertension Cancer Gastric reflux [...] 91.6 H Lymph % (Auto) 3.3 L [place] % (Auto) 4.6 Eos % (Auto) 0.0 [...] Sl. Cloudy Urine pH 7.0 Ur Specific Blaine 1.010 Urine Protein 30 H Urine Glucose [...] change since the prior study Reading Location: [facility] Discharge Plan Triage Chief Complaint: Abd Pain [...] Lela Interiano NP Referrals: Lela Interiano NP, [employer] DESIGNER-C [Primary Care Provider] - Print Language: Cambodian What to do if you have Problems For any increased pain, shortness of breath, bleeding, nausea or vomiting, chestpain, or any unexpected problems, contact your Primary Care Provider. Call [facility] ([phone]) or report tothe closest Emergency Room. Call 911 if necessary. 05/18/252201 Cosigner Signature (if applicable): CC: [employer] DESIGNER-C Lela Interiano ~ Signed [facility]08-07-2025 Radiology Diagnostic study note [facility] Imaging Services [address] [place], [place] [id number] Abdomen/Pelvis W IV Cont ONLY MR#: [id number] Acct: [id number] Name: LUZ LCANCY Rep #: [id number] : 1940 F 85 From: Maribeth Kent MD PCP: MARILEE Partida Status: REG ER Study:Abdomen/Pelvis W IV Cont ONLY Date of E xam: 05/18/25 Exam# [id number] Ordering Dr: Jeffery Zambrano DO PROCEDURE: ABDOMEN/PELVIS [...] change since the prior study Reading Location: [id number] CC: MARILEE Interiano; Dr. Jeffery Mcclain DO ~ Circulation Clerk: Signed [facility]08-07-2025 Discharge summary Author Jeffery Mcclain [facility] [facility] Note Date/Time May 18, 2025 10: 12pm [facility] Medical Records Department [address] [place] [address] Emergency Department Summary 05/18/25 MR#: [id number] Acct: [id number] Name: LUZ CLANCY Rep #:[id number] : 1940 85 From: Jeffery escobar DO [...] mood and affect PFSH PFSH Medical History (Reviewed 05/16/25 @ 11:47 by Laney Ferreira SOLAR ENERGY SYSTEMS DESIGNER, SOLAR ENERGY SYSTEMS DESIGNER-C) Tachycardia Diverticulosis Uncontrolled hypertension Cancer Gastric reflux [...] Intermediate Hives Verified 05/18/25 17:46 Family History (Reviewed 05/16/25 @ 11:47 by Laney Ferreira SOLAR ENERGY SYSTEMS DESIGNER, SOLAR ENERGY SYSTEMS DESIGNER-C) Mother Colon cancer Breast cancer Daughter Thyroid disorder Surgical History History of tubal ligation History of hysterectomy Social History (Reviewed 05/16/25 @ 11:47 by Laney Ferreira SOLAR ENERGY SYSTEMS DESIGNER, SOLAR ENERGY SYSTEMS DESIGNER-C) household members: none Smoking Status: Never smoker [...] 91.6 H Lymph % (Auto) 3.3 L [place] % (Auto) 4.6 Eos % (Auto) 0.0 [...] Sl. Cloudy Urine pH 7.0 Ur Specific Blaine 1.010 Urine Protein 30 H Urine Glucose [...] change since the prior study Reading Location: [facility] Discharge Plan Triage Chief Complaint: Abd Pain [...] Provider: Lela Interiano NP Referrals: Lela Interiano SOL[employer] ENERGY SYSTEMS DESIGNER, SOLAR ENERGY SYSTEMS DESIGNER-C [Primary Care Provider] - Print Language: Cambodian What to do if you have Problems For any increased pain, shortness of breath, bleeding, nausea or vomiting, chestpain, or any unexpected problems, contact your Primary Care Provider. Call [facility] ([phone]) or report to the closest Emergency Room. Call 911 if necessary. 05/18/252201 <Electronically signed by Jeffery Mcclain DO> Cosigner Signature (if applicable): CC: MARILEE Interiano ~ Signed [facility] Work Phone: 1(668) 501-281507-30-2025 Radiology Diagnostic study note [facility] Imaging Services [address] [place] [address] Chest Insp/Exp 2 View MR#: [id number] Acct: [id number] Name: LUZ CLANCY Rep #: [id number] : 1940 F 85 From: Josep Gonzales MD PCP: MARILEE Partida Status: REG CLI Study:Chest Insp/Exp 2 View Date of Exam: 05/10/25 Exam# [id number] Ordering Dr: Brian Gonzales MD EXAM: Two-view [...] stable, without evidence of cardiomegaly. Reading Location: [facility] CC: MARILEE Interiano; Dr. Brian Gonzales MD ~ Circulation Clerk: Signed [facility]07-30-2025 Radiology Diagnostic study note [facility] Imaging Services [address] [place] [address] Biopsy/Inj or Needle Placement MR#: [id number] Acct: [id number] Name: LUZ CLANCY Rep #: [id number] : 1940 F 85 From: Josep Gonzales MD PCP: MARILEE Partida Status: REG CLI Study:Biopsy/Inj or Needle Placement Date of Exam: 05/10/25 Exam# [id number] Ordering Dr: Scot Bernal MD EXAM: CT-guided [...] pulmonary mass. Pathology results pending. Reading Location: [facility] CC: MARILEE Interiano; Dr. Carlos Bernal MD ~ Circulation Clerk: Signed [facility]07-30-2025 Radiology Diagnostic study note [facility] Imaging Services [address] [place] [address] Chest Insp/Exp 2 View MR#: [id number] Acct: [id number] Name: LUZ CLANCY Rep #: [id number] : 1940 F 85 From: Josep Gonzales MD PCP: MARILEE Partida Status: REG CLI Study:Chest Insp/Exp 2 View Date of Exam: 05/10/25 Exam# [id number] Ordering Dr: Brian Gonzales MD EXAM: AP [...] unremarkable; no evidence of cardiomegaly. Reading Location: [place] [address] CC: SOLAR ENERGY SYSTEMS DESIGNER-Lilian Interiano; Dr. Brian Gonzales MD ~ Circulation Clerk: Signed [facility]07-08-2025 Radiology Diagnostic study note [facility] Imaging Services [address] [place] [id number] Chest, Abd, Pel w/Contrast MR#: [id number] Acct: [id number] Name: LUZ CLANCY Rep #: [id number] : 1940 F 85 From: Gregg Barba MD PCP: MARILEE Partida Status: REG CLI Study:CT Chest, Abd, Pel w/Contrast Date of E xam: 04/17/25 Exam# [id number] Ordering Dr: Scot Bernal MD PROCEDURE: CT [...] 3. Other findings as noted. Reading Location: [id number] CC: MARILEE Interiano; Dr. Carlos Bernal MD ~ Circulation Clerk: Signed [facility] Work Phone: 1(254) 848-831107-02-2025 Evaluation note* Diagnosis Onset Date Resolution Status [...] Uncontrolled hypertension acute May 16, 2025 11:32am [facility] Work Phone: 1(339) 177-887907-02-2025 Evaluation note* Diagnosis Onset Date Resolution Status [...] vomiting acut e May 18, 2025 9:54pm [facility] Work Phone: 1(891) 799-800007-02-2025 Evaluation note* Diagnosis Onset Date Resolution Status [...] vomiting acut e May 19, 2025 11:54am [facility] Work Phone: 1(762) 716-895307-02-2025 Evaluation note* Diagnosis Onset Date Resolution Status [...] and vomiting resolved May 19, 2025 11:54am [facility] Work Phone: 1(575) 279-185307-02-2025 Evaluation note* Diagnosis Onset Date Resolution Status [...] 2025 2:44pm Uterine cancer chronic May 2:44pm [facility] Work Phone: 1(155) 648-377907-02-2025 Evaluation note* Diagnosis Onset Date Resolution Status [...] 2025 10:23am Uterine cancer chronic May 10:23am [employer] [facility] [facility] Work Phone: 1([phone]) [phone] Evaluation note* Diagnosis Onset Date Resolution Status [...] of venous access port acute June 9:27am [employer] Work Phone: 1([phone] Evaluation note* Diagnosis Onset Date Resolution Status [...] Uterine cancer chronic June 26, 2025 7:46am [facility] Work Phone: 1(757) 102-937707-02-2025 [facility] [address] [place] [address] OFFICE VISIT Date of Service: 04/12/25 1455 MR#: [id number] Acct: [id number] Name: LUZ CLANCY Rep #: [id number] : 1940 From: Carlos Bernal MD Age/Sex: 85/F Location[facility] Status: Signed HPI Subjective Date of Service [...] observation, comes in for f/u. [facility] Medical History Tachycardia Diverticulosis Uncontrolled hypertension Cancer [...] 1523 D> Date _ Carlos Bernal MD [facility] Signature: Date (if applicable) CC: MARILEE Interiano ~ [facility]07-02-2025 Progress note Author Carlos Bernal [facility] Note Date/Time April 12, 2025 3:23p m [facility] Cancer [address] [address] OFFICE VISIT Date of Service: 04/12/25 1455 MR#: [id number] Acct: [id number] Name: CLANCYKADEEMLUZ Taiwo Rep #: [id number] : 1940 From: Carlos Bernal MD Age/Sex: 85/F Location: [facility] Status: Signed HPI Subjective Date of Service [...] observation, comes in for f/u. [facility] Medical History Tachycardia Diverticulosis Uncontrolled hypertension Cancer [...] MD Cosigner Signature: Date (if applicable) CC: SOLAR ENERGY SYSTEMS DESIGNER-Lilian Interiano ~ [facility] Work Phone: 1([phone]) 245-891304-02-2025 Evaluation note* Diagnosis Onset Date Resolution Status Admit Date Tachycardia acute January 11 1:25pm History of endometrial cancer acute April 12, 2025 2:42pm Lung nodule, multiple chronic Apr 2:42pm Uterine cancer chronic April 12, 2025 2:42pm [facility] Work Phone: 1(385) [phone] Evaluation note* Diagnosis Onset Date Resolution Status Admit Date Tachycardia acute January 11 1:25pm History of endometrial cancer acute April 12, 2025 2:42pm Lung nodule, multiple chronic Apr 2:42pm Uterine cancer chronic April 12, 2025 2:42pm Pulmonary nodule acute April 3:45pm [facility] Work Phone: 1([phone]) 585-576204-02-2025 Evaluation note* Diagnosis Onset Date Resolution Status [...] Uterine cancer chronic April 24, 2025 3:43pm [facility] Work Phone: [phone] Evaluation note* Diagnosis Onset Date Resolution Status Admit Date Strain of muscle at thorax level resolved October 21 6:19am [facility] Work Phone: [phone] NoteHNO ID: [id number] Author: Seble Vann APRN.SOLE LAYER HAND Service: ? Author Type: Nurse Practitioner Type: Progress Notes Filed: 10/08/2021 8:25 AM Note Text: This note was created using Mobile Broadcast Networkriter. Subjective Luz Clancy is a 81 year old female. 81 year old female with PMH GERD presents with complaints of COVID concern. Acute onset of symptoms yesterday. +chills Denies SOB. Denies URI sx. Denies fever or chills. Denies N/V/D. Denies skin rash or lesions. Has had x 2 COVID She had + exposure to COVID on [place]. She is accompanied by her daughter and son in law who are here for same. The history is provided by the patient. No certified court interpreter was used. Illness The current episode [...] SPEC 07/15/11 - COLONOSCOP W/ OR W/O [facility] SPEC 07/17/16 Colonoscopy (needs MAC [...] tenderness. Abd (more content not included)...[facility] note Author Tamra Sauceda [facility] Note Date/Time June 22, 2025 10:34am [facility] Medical Records Department [address] [place] [address] Anesthesia Postop Eval I 06/22/25 1034 MR#: [id number] Acct: [id number] Name: LUZ CLANCY Rep #:[id number] : 1940 85 From: Tamra Quintana RNA PCP: MARILEE Partida Status:REG SDC Y Race: C Location: [place] [address] Anesthesia: Postop Eval I Current Vital Signs [...] 06/22/25 1034 <Electronically signed by Tamra Sauceda PASTRY WRAPPER> Date _ Tamra Lomeliigner Signature: Date CC: ~ Signed [facility] Work Phone: Discharge summary Author Isaiah Lerner [facility] Note Date/Time June 22, 2025 10:33am [facility] Medical Records Department [address] [place] [address] Instructions for Home/Discharge Instructions 06/22/25 1033 MR#: [id number] Acct: [id number] Name: LUZ CLANCY Rep #:[id number] : 1940 85 From: Isaiah gibson MD PCP: Lela Interiano NP-C Status:REG [facility] Discharge Instructions Procedure Port-A-Cath Diet Discharge Diet: [...] With: Isaiah Lerner MD When: as needed [phone] Test Results: Test results from this visit will be discussed in further detail at your follow- up appointment, if applicable. Discharge Plan Admission Attending Provider: Isaiah Lerner Primary Care Provider: Lela Interiano NP Instructions Print Language: Cambodian Discharge Orders/Prescriptions Prescriptions: No Action Adult 51 [...] by Isaiah Lerner MD>Isaiah Lerner MD CC: SOLAR ENERGY SYSTEMS DESIGNER-C Lela Interiano ~ Signed [facility] Work Phone: Evaluation noteNo assessment information available [facility] Work Phone: Evaluation note* Diagnosis Onset Date Resolution Status History of endometrial cancer acute Lung nodule, multiple chroni c Uterine cancer chronic [facility] Work Phone: Evaluation note* Diagnosis Onset Date Resolution Status Acute sinusitis acute Cough acute PND (post-nasal drip) acute Increased urinary frequency acute [facility] Work Phone: History and physical note Author Isaiah Lerner [facility] Note Date/Time June 22, 2025 9:34am [facility] Medical Records Department [address] [place] [address] History & Physical Exam 06/22/25 0933 MR#: [id number] Acct: [id number] Name: LUZ CLANCY Rep #:[id number] : 1940 85 From: Isaiah gibson MD PCP: MARILEE Partida Status:[facility] Location: [place] [address] History and Physical Date of Admission: 06/22/25 [...] willing to proceed. Isaiah Lerner MD Pager: [facility] [address] [place] [address], [address] [place] [address] Office: I have examined the patient and the H&P has been reviewed. There are no clinicalchanges since date of exam. 06/22/25 0934 <Electronically signed by Isaiah Lerner MD> Cosigner Signature (if applicable): CC: MARILEE Interiano; Dr. Isaiah Lerner MD~ Signed [facility] Work Phone: Reason for referral (narrative)No reason for referral information [facility]WFire[facility] Work Phone: Summary Purpose Family History No Family History Records Found Relationship Condition Age at Onset Recorded Date/T rocky mother Malignant neoplasm of colon Unknown Malignant neoplasm of breast Unknown daughter Disorder of thyroid Unknown Advance Directives No Advanced Directives Records Found Advance Directive Response Recorded Date/ Time Advance Directives No August 3:25pm Living Will Yes February 16, 2022 12 :59pm Power of Green Promotions Specialist Yes February 16, 2022 12:59pm Advance Directive Response Recorded Date/ Time Name of Medical Power of Green Prom[employer] Specialist Eva Mccallum February 16, 2022 12:59pm Advance Directives No August 3:25pm Living Will Yes February 16, 2022 12 :59pm Power of Green Promotions Specialist Yes February 16, 2022 12:59pm Advance Directive Response Recorded Date/ Time Advance Directives No November 7:49am Living Will Yes November 7:49am Power of Green Promotions Specialist Yes December 10, 2023 7:49am Advance Directive Response Recorded Date/ Time Advance Directives No November 7:49am Advance Directive Response Recorded Date/ Time Living Will No August 23 3:25pm Do you have a Healthcare Power of Green Promotions Specialist? No August 23, 2013 3:25pm Advance Directives No November 7:49am Advance Directive Response Recorded Date/ Time Living Will No August 23 3:25pm Do you have a Healthcare Power of Green Promotions Specialist? No August 23, 2013 3:25pm Do you have a Healthcare Power of Green Promotions Specialist? Yes May 18, 2025 5:45pm Advance Directives No November 7:49am Advance Directive Response Recorded Date/ Time Living Will No August 23 3:25pm Do you have a Healthcare Pow er of Green Promotions Specialist? No August 23, 2013 3:25pm Do you have a Healthcare Pow er of Green Promotions Specialist? Yes May 18, 2025 10:52pm Name of Medical Power of Green Promotions Specialist adrian gibson May 18, 2025 10:52pm Advance Directives No November 7:49am Advance Directive Response Recorded Date/ Time Living Will No August 23 3:25pm Do you have a Healthcare Pow er of Green Promotions Specialist? No August 23, 2013 3:25pm Do you have a Healthcare Pow er of Green Promotions Specialist? Yes June 16, 2025 9:01am Do you have a Healthcare Pow er of Green Promotions Specialist? Yes May 18, 2025 10:52pm Name of Medical Power of Green Promotions Specialist adrian gibson May 18, 2025 10:52pm Advance [...] education June 08 10:23am Metastasis to lung [place] 28th, 2025 10 :23am Uterine cancer June [...] section and content) DATE CREATED AUTHOR 12/31/2021 [facility] DATE CREATED AUTHOR AUTHOR'S ORGANIZ ATION 05/24/2025 [facility] DATE CREATED AUTHOR AUTHOR'S ORGANIZ ATION 07/03/2025 [facility] Goals (unrecognized section and content) Goals [...] Member Role/Relationship Status Dates Lela Interiano NP, SOLAR ENERGY SYSTEMS DESIGNER-C Primary Care Provider Active Team Status: Inactive [...] Inactive Member Role/Relationship Status Dates Lela Interiano SOLAR ENERGY SYSTEMS DESIGNER, SOLAR ENERGY SYSTEMS DESIGNER-C Primary Care Provider Active Start: February 27, 2025 End: February 27, 2025 Lela Interiano SOLAR ENERGY SYSTEMS DESIGNER, SOLAR ENERGY SYSTEMS DESIGNER-C Attending Provider Active S tart: February 27, 2025 End: February 27, 2025 Lela Interiano SOLAR ENERGY SYSTEMS DESIGNER, SOLAR ENERGY SYSTEMS DESIGNER-C Referring Provider Active S tart: February 27, 2025 End: February 27, 2025 Team Status: Inactive Member Role/Relationship Status Dates Dr. Carlos Bernal MD Attending Provider Active S tart: April 12, 2025 End: April 12, 2025 Lela Interiano SOLAR ENERGY SYSTEMS DESIGNER, SOLAR ENERGY SYSTEMS DESIGNER-C Primary Care Provider Active Start: April 12, 2025 End: April 12, 2025 Lela Interiano SOLAR ENERGY SYSTEMS DESIGNER, SOLAR ENERGY SYSTEMS DESIGNER-C Referring Provider Active S tart: April 12, [...] Inactive Member Role/Relationship Status Dates Lela Interiano SOLAR ENERGY SYSTEMS DESIGNER, SOLAR ENERGY SYSTEMS DESIGNER-C Primary Care Provider Active Start: February 27, 2025 End: February 27, 2025 Lela Interiano SOLAR ENERGY SYSTEMS DESIGNER, SOLAR ENERGY SYSTEMS DESIGNER-C Attending Provider Active S tart: February 27, 2025 End: February 27, 2025 Lela Interiano SOLAR ENERGY SYSTEMS DESIGNER, SOLAR ENERGY SYSTEMS DESIGNER-C Referring Provider Active S tart: February 27, 2025 End: February 27, 2025 Team Status: Inactive Member Role/Relationship Status Dates Dr. Carlos Bernal MD Attending Provider Active S tart: April 12, 2025 End: April 12, 2025 Lela Interiano SOLAR ENERGY SYSTEMS DESIGNER, SOLAR ENERGY SYSTEMS DESIGNER-C Primary Care Provider Active Start: April 12, 2025 End: April 12, 2025 Lela Interiano SOLAR ENERGY SYSTEMS DESIGNER, SOLAR ENERGY SYSTEMS DESIGNER-C Referring Provider Active S tart: April 12, [...] Inactive Member Role/Relationship Status Dates Lela Interiano SOLAR ENERGY SYSTEMS DESIGNER, SOLAR ENERGY SYSTEMS DESIGNER-C Primary Care Provider Active Start: April 17, 2025 End: April 17, 2025 Dr. Carlos Bernal MD Attending Provider Active S tart: April 17, 2025 End: April 17, 2025 Dr. Carlos Bernal MD Referring Provider Active S tart: April 17, 2025 End: April 17, 2025 Team Status: Inactive Member Role/Relationship Status Dates Lela Interiano SOLAR ENERGY SYSTEMS DESIGNER, SOLAR ENERGY SYSTEMS DESIGNER-C Primary Care Provider Active Start: April 24, 2025 End: April 24, 2025 Lela Interiano SOLAR ENERGY SYSTEMS DESIGNER, SOLAR ENERGY SYSTEMS DESIGNER-C Referring Provider Active S tart: April 24, [...] Inactive Member Role/Relationship Status Dates Lela Interiano SOLAR ENERGY SYSTEMS DESIGNER, SOLAR ENERGY SYSTEMS DESIGNER-C Primary Care Provider Active Start: February 27, 2025 End: February 27, 2025 Lela Interiano SOLAR ENERGY SYSTEMS DESIGNER, SOLAR ENERGY SYSTEMS DESIGNER-C Attending Provider Active S tart: February 27, 2025 End: February 27, 2025 Lela Interiano SOLAR ENERGY SYSTEMS DESIGNER, SOLAR ENERGY SYSTEMS DESIGNER-C Referring Provider Active S tart: February 27, 2025 End: February 27, 2025 Team Status: Inactive Member Role/Relationship Status Dates Dr. Carlos Bernal MD Attending Provider Active S tart: April 12, 2025 End: April 12, 2025 Lela Interiano SOLAR ENERGY SYSTEMS DESIGNER, SOLAR ENERGY SYSTEMS DESIGNER-C Primary Care Provider Active Start: April 12, 2025 End: April 12, 2025 Lela Interiano SOLAR ENERGY SYSTEMS DESIGNER, SOLAR ENERGY SYSTEMS DESIGNER-C Referring Provider Active S tart: April 12, 2025 End: April 12, 2025 Team Status: Inactive Member Role/Relationship Status Dates Lela Interiano SOLAR ENERGY SYSTEMS DESIGNER, SOLAR ENERGY SYSTEMS DESIGNER-C Primary Care Provider Active Start: April 17, 2025 End: April 17, 2025 Dr. Carlos Bernal MD Attending Provider Active S tart: April 17, 2025 End: April 17, 2025 Dr. Carlos Bernal MD Referring Provider Active S tart: April 17, 2025 End: April 17, 2025 Team Status: Inactive Member Role/Relationship Status Dates Lela Interiano SOLAR ENERGY SYSTEMS DESIGNER, SOLAR ENERGY SYSTEMS DESIGNER-C Primary Care Provider Active Start: April 24, 2025 End: April 24, 2025 Lela Interiano SOLAR ENERGY SYSTEMS DESIGNER, SOLAR ENERGY SYSTEMS DESIGNER-C Referring Provider Active S tart: April 24, [...] Active Member Role/Relationship Status Dates Lela Interiano SOLAR ENERGY SYSTEMS DESIGNER, SOLAR ENERGY SYSTEMS DESIGNER-C Primary Care Provider Active Start: May 10, [...] 2025 End: May 16, 2025 Laney Ferreira SOLAR ENERGY SYSTEMS DESIGNER, SOLAR ENERGY SYSTEMS DESIGNER-C Attending Provider Active Start: May 16, 2025 End: May 16, 2025 Lela Interiano SOLAR ENERGY SYSTEMS DESIGNER, SOLAR ENERGY SYSTEMS DESIGNER-C Primary Care Provider Active Start: May 16, 2025 End: May 16, 2025 Team Status: Active Member Role/Relationship Status Dates Lela Interiano SOLAR ENERGY SYSTEMS DESIGNER, SOLAR ENERGY SYSTEMS DESIGNER-C Primary Care Provider Active Start: May 18, 2025 Dr. Jeffery Mcclain , DO Emergency Provider Activ e Start: May 18, 2025 Dr. Najma Cates MD Admit Provider Active St art: May 18, 2025 Dr. Najma Cates MD Attending Provider Active Start: May 18, 2025 Team Status: Inactive Member Role/Relationship Status Dates Lela Interiano SOLAR ENERGY SYSTEMS DESIGNER, SOLAR ENERGY SYSTEMS DESIGNER-C Primary Care Provider Active Start: May 10, [...] Active Member Role/Relationship Status Dates Lela Interiano SOLAR ENERGY SYSTEMS DESIGNER, SOLAR ENERGY SYSTEMS DESIGNER-C Primary Care Provider Active Start: May 18, [...] Active Member Role/Relationship Status Dates Lela Interiano SOLAR ENERGY SYSTEMS DESIGNER, SOLAR ENERGY SYSTEMS DESIGNER-C Primary Care Provider Active Start: May 19, [...] Active Member Role/Relationship Status Dates Lela Interiano SOLAR ENERGY SYSTEMS DESIGNER, SOLAR ENERGY SYSTEMS DESIGNER-C Primary Care Provider Active Start: May 19, [...] Active Member Role/Relationship Status Dates Lela Interiano SOLAR ENERGY SYSTEMS DESIGNER, SOLAR ENERGY SYSTEMS DESIGNER-C Primary Care Provider Active Start: May 18, 2025 Dr. Jeffery Mcclain DO Emergency Provider Activ e Start: May 18, 2025 Dr. Najma Cates MD Admit Provider Active St art: May 18, 2025 Dr. Najma Cates MD Attending Provider Active Start: May 18, 2025 Dr. Najam Cates MD Other Provider Active St art: May 18, 2025 Dr. Isaiah Lerner MD Other Provider Active Start: May 18, 2025 Team Status: Inactive Member Role/Relationship Status Dates Lela Interiano SOLAR ENERGY SYSTEMS DESIGNER, SOLAR ENERGY SYSTEMS DESIGNER-C Primary Care Provider Active Start: May 19, [...] Active Member Role/Relationship Status Dates Lela Interiano SOLAR ENERGY SYSTEMS DESIGNER, SOLAR ENERGY SYSTEMS DESIGNER-C Primary Care Provider Active Start: May 20, [...] Active Member Role/Relationship Status Dates Lela Interiano SOLAR ENERGY SYSTEMS DESIGNER, SOLAR ENERGY SYSTEMS DESIGNER-C Primary Care Provider Active Start: May 20, [...] Active Member Role/Relationship Status Dates Lela Interiano SOLAR ENERGY SYSTEMS DESIGNER, SOLAR ENERGY SYSTEMS DESIGNER-C Primary Care Provider Active Start: May 21, 2025 Dr. Jeffery Klusty-Will , DO Emergency Provider Activ e Start: May 21, 2025 Dr. Najma Cates MD Admit Provider Active St art: May 21, 2025 Dr. Najma Cates MD Other Provider Active St art: May 21, 2025 Dr. Isaiha Lerner MD Other Provider Active Start: May 21, 2025 Dr. Brian Negrete MD Attending Provider Active Start: May 21, 2025 Dr. Brian Negrete MD Other Provider Active Star t: May 21, 2025 Team Status: Active Member Role/Relationship Status Dates Lela Interiano SOLAR ENERGY SYSTEMS DESIGNER, SOLAR ENERGY SYSTEMS DESIGNER-C Primary Care Provider Active Start: May 21, [...] Member Role/Relationship Status Dates Lela Interiano NP, SOLAR ENERGY SYSTEMS DESIGNER-C Primary Care Provider Active Start: May 22, [...] Inactive Member Role/Relationship Status Dates Lela Interiano SOLAR ENERGY SYSTEMS DESIGNER, SOLAR ENERGY SYSTEMS DESIGNER-C Primary Care Provider Active Start: February 27, 2025 End: February 27, 2025 Lela Interiano SOLAR ENERGY SYSTEMS DESIGNER, SOLAR ENERGY SYSTEMS DESIGNER-C Attending Provider Active S tart: February 27, 2025 End: February 27, 2025 Lela Interiano SOLAR ENERGY SYSTEMS DESIGNER, SOLAR ENERGY SYSTEMS DESIGNER-C Referring Provider Active S tart: February 27, 2025 End: February 27, 2025 Team Status: Inactive Member Role/Relationship Status Dates Dr. Carlos Bernal MD Attending Provider Active S tart: April 12, 2025 End: April 12, 2025 Lela Interiano [employer] DES[employer]ER, [employer] DESIGNER-C Primary Care Provider Active Start: April 12, 2025 End: April 12, 2025 Lela Interiano [employer] DESIGNER, [employer] DESIGNER-C Referring Provider Active S tart: April 12, 2025 End: April 12, 2025 Team Status: Inactive Member Role/Relationship Status Dates Lela Interiano [employer] DESIGNER, [employer] DESIGNER-C Primary Care Provider Active Start: April 17, 2025 End: April 17, 2025 Dr. Carlos Bernal MD Attending Provider Active S tart: April 17, 2025 End: April 17, 2025 Dr. Carlos Bernal MD Referring Provider Active S tart: April 17, 2025 End: April 17, 2025 Team Status: Inactive Member Role/Relationship Status Dates Lela Interiano [employer] DESIGNER, [employer] DESIGNER-C Primary Care Provider Active Start: April 24, 2025 End: April 24, 2025 Lela Interiano [employer]S DESIGNER, [employer] DESIGNER-C Referring Provider Active S tart: April 24, [...] Inactive Member Role/Relationship Status Dates Lela Interiano [employer] DESIGNER, [employer] DESIGNER-C Primary Care Provider Active Start: May 10, [...] 2025 End: May 16, 2025 Laney Ferreira [employer] DESIGNER, [employer] DESIGNER-C Attending Provider Active Start: May 16, 2025 End: May 16, 2025 Lela Interiano [employer] DESIGNER, [employer] DESIGNER-C Primary Care Provider Active Start: May 16, 2025 End: May 16, 2025 Team Status: Active Member Role/Relationship Status Dates Lela Interiano [employer] DESIGNER, [employer] DESIGNER-C Primary Care Provider Active Start: May 18, [...] Active Member Role/Relationship Status Dates Lela Interiano [employer] DESIGNER, [employer] DESIGNER-C Primary Care Provider Active Start: May 19, [...] Active Member Role/Relationship Status Dates Lela Interiano [employer] DESIGNER, [employer] DESIGNER-C Primary Care Provider Active Start: May 19, [...] Inactive Member Role/Relationship Status Dates Lela Interiano [employer] DESIGNER, [employer] DESIGNER-C Primary Care Provider Active Start: May 19, [...] Active Member Role/Relationship Status Dates Lela Interiano [employer] DESIGNER, [employer] DESIGNER-C Primary Care Provider Active Start: May 20, [...] Member Role/Relationship Status Dates Lela Interiano NP, [employer] DESIGNER-C Primary Care Provider Active Start: May 20, [...] Active Member Role/Relationship Status Dates Lela Interiano [employer] DESIGNER, [employer] DESIGNER-C Primary Care Provider Active Start: May 21, [...] Active Member Role/Relationship Status Dates Lela Interiano [employer] DESIGNER, [employer] DESIGNER-C Primary Care Provider Active Start: May 21, [...] Active Member Role/Relationship Status Dates Lela Interiano [employer] DESIGNER, [employer] DESIGNER-C Primary Care Provider Active Start: May 22, [...] Active Member Role/Relationship Status Dates Lela Interiano [employer] DESIGNER, [employer] DESIGNER-C Primary Care Provider Active Start: May 23, [...] Inactive Member Role/Relationship Status Dates Lela Interiano [employer]S DESIGNER, [employer] DESIGNER-C Primary Care Provider Active Start: May 29, 2025 End: May 29, 2025 Lela Interiano [employer] DESIGNER, [employer] DESIGNER-C Attending Provider Active S tart: May 29, 2025 End: May 29, 2025 Team Status: Inactive Member Role/Relationship Status Dates Lela Interiano [employer] DESIGNER, [employer] DESIGNER-C Primary Care Provider Active Start: June 05, 2025 End: June 05, 2025 Lela Interiano [employer]S DESIGNER, [employer] DESIGNER-C Referring Provider Active S tart: June 05, 2025 End: June 05, 2025 Dr. Carlos Bernal MD Attending Provider Active S tart: June 05, 2025 End: June 05, 2025 Team Status: Inactive Member Role/Relationship Status Dates Lela Interiano [employer] DESIGNER, [employer] DESIGNER-C Primary Care Provider Active Start: February 27, 2025 End: February 27, 2025 Lela Interiano [employer]S DESIGNER, [employer] DESIGNER-C Attending Provider Active S tart: February 27, 2025 End: February 27, 2025 Lela Interiano [employer]S DESIGNER, [employer]S DESIGNER-C Referring Provider Active S tart: February 27, 2025 End: February 27, 2025 Team Status: Inactive Member Role/Relationship Status Dates Dr. Carlos Bernal MD Attending Provider Active S tart: April 12, 2025 End: April 12, 2025 Lela Interiano [employer] DESIGNER, [employer] DESIGNER-C Primary Care Provider Active Start: April 12, 2025 End: April 12, 2025 Lela Interiano [employer]S DESIGNER, [employer]S DESIGNER-C Referring Provider Active S tart: April 12, 2025 End: April 12, 2025 Team Status: Inactive Member Role/Relationship Status Dates Lela Interiano [employer]S DESIGNER, [employer] DESIGNER-C Primary Care Provider Active Start: April 17, 2025 End: April 17, 2025 Dr. Carlos Bernal MD Attending Provider Active S tart: April 17, 2025 End: April 17, 2025 Dr. Carlos Bernal MD Referring Provider Active S tart: April 17, 2025 End: April 17, 2025 Team Status: Inactive Member Role/Relationship Status Dates Lela Interiano [employer]S DESIGNER, [employer] DESIGNER-C Primary Care Provider Active Start: April 24, 2025 End: April 24, 2025 Lela Interiano [employer]S DESIGNER, [employer]S DESIGNER-C Referring Provider Active S tart: April 24, 2025 End: April 24, 2025 Dr. Carlos Bernal MD Attending Provider Active S tart: April 24, 2025 End: April 24, 2025 Team Status: Active Member Role/Relationship Status Dates Dr. Paola Cornoa MD Primary Care Provider Active Start: May 02, 2025 Dr. Paola Corona MD Family Provider Active St art: May 02, 2025 Dr. Paola Corona MD Referring Provider Active Start: May 02, 2025 Dr. Carlos Bernal MD Attending Provider Active S tart: May 02, 2025 Team Status: Inactive Member Role/Relationship Status Dates Lela Interiano [employer]S DESIGNER, [employer] DESIGNER-C Primary Care Provider Active Start: May 10, [...] 2025 End: May 16, 2025 Laney Ferreira [employer] SYSTEMS DESIGNER, [employer] DESIGNER-C Attending Provider Active Start: May 16, 2025 End: May 16, 2025 Lela Interiano [employer]S DESIGNER, [employer] DESIGNER-C Primary Care Provider Active Start: May 16, 2025 End: May 16, 2025 Team Status: Active Member Role/Relationship Status Dates Lela Interiano [employer]S DESIGNER, [employer]S DESIGNER-C Primary Care Provider Active Start: May 18, [...] Active Member Role/Relationship Status Dates Lela Interiano [employer]S DESIGNER, [employer]S DESIGNER-C Primary Care Provider Active Start: May 19, [...] Active Member Role/Relationship Status Dates Lela Interiano [employer]S DESIGNER, [employer] DESIGNER-C Primary Care Provider Active Start: May 19, [...] Inactive Member Role/Relationship Status Dates Lela Interiano [employer]S DESIGNER, [employer] DESIGNER-C Primary Care Provider Active Start: May 19, [...] Member Role/Relationship Status Dates Lela Interiano NP, [employer] DESIGNER-C Primary Care Provider Active Start: May 20, [...] Active Member Role/Relationship Status Dates Lela Interiano [employer]S DESIGNER, [employer] DESIGNER-C Primary Care Provider Active Start: May 20, [...] Active Member Role/Relationship Status Dates Lela Interiano [employer]S DESIGNER, [employer] DESIGNER-C Primary Care Provider Active Start: May 21, [...] Member Role/Relationship Status Dates Lela Interiano NP, [employer] DESIGNER-C Primary Care Provider Active Start: May 21, [...] Member Role/Relationship Status Dates Lela Interiano NP, [employer] DESIGNER-C Primary Care Provider Active Start: May 22, [...] Active Start: May 22, 2025 Dr. Brian Ngerete MD Other Provider Active Star t: May 22, 2025 Team Status: Active Member Role/Relationship Status Dates Lela Interiano [employer]S DESIGNER, [employer]S DESIGNER-C Primary Care Provider Active Start: May 23, [...] Inactive Member Role/Relationship Status Dates Lela Interiano [employer] SYSTEMS DESIGNER, [employer]S DESIGNER-C Primary Care Provider Active Start: May 29, 2025 End: May 29, 2025 Lela Interiano [employer]GY SYSTEMS DESIGNER, [employer] SYSTEMS DESIGNER-C Attending Provider Active S tart: May 29, 2025 End: May 29, 2025 Team Status: Inactive Member Role/Relationship Status Dates Lela Interiano [employer] SYSTEMS DESIGNER, [employer]S DESIGNER-C Primary Care Provider Active Start: June 05, 2025 End: June 05, 2025 Lela Interiano [employer]GY SYSTEMS DESIGNER, [employer] SYSTEMS DESIGNER-C Referring Provider Active S tart: June 05, 2025 End: June 05, 2025 Dr. Carlos Bernal MD Attending Provider Active S tart: June 05, 2025 End: June 05, 2025 Team Status: Inactive Member Role/Relationship Status Dates Lela Interiano [employer] SYSTEMS DESIGNER, [employer]S DESIGNER-C Primary Care Provider Active Start: June 08, 2025 End: June 08, 2025 Lela Interiano SOL[employer]GY SYSTEMS DESIGNER, [employer]GY SYSTEMS DESIGNER-C Referring Provider Active S tart: June 08, 2025 End: June 08, 2025 Lizzy Pelaez SOL[employer]GY SYSTEMS DESIGNER, [employer] SYSTEMS DESIGNER-C Attending Provider Active Start: June 08, 2025 End: June 08, 2025 Team Status: Active Member Role/Relationship Status Dates Lela Jaydon [employer]GY SYSTEMS DESIGNER, [employer]GY SYSTEMS DESIGNER-C Primary Care Provider Active Start: June 09, 2025 Lela Interiano SOL[employer]GY SYSTEMS DESIGNER, [employer]GY SYSTEMS DESIGNER-C Attending Provider Active S tart: June 09, 2025 Lela Interiano SOL[employer]GY SYSTEMS DESIGNER, [employer] SYSTEMS DESIGNER-C Referring Provider Active S tart: June 09, 2025 Team Status: Inactive Member Role/Relationship Status Dates Lela Interiano [employer]GY SYSTEMS DESIGNER, [employer] SYSTEMS DESIGNER-C Primary Care Provider Active Start: June 15, 2025 End: June 15, 2025 Lela Interiano SOL[employer]GY SYSTEMS DESIGNER, [employer] SYSTEMS DESIGNER-C Referring Provider Active S tart: June 15, 2025 End: June 15, 2025 Dr. Isaiah Lerner MD Attending Provider Active Start: June 15, 2025 End: June 15, 2025 Team Status: Inactive Member Role/Relationship Status Dates Lela Interiano [employer] SYSTEMS DESIGNER, [employer] SYSTEMS DESIGNER-C Primary Care Provider Active Start: June 09, 2025 End: June 09, 2025 Lela Interiano SOL[employer] EN[employer]GY SYSTEMS DESIGNER, [employer]GY SYSTEMS DESIGNER-C Attending Provider Active S tart: June 09, 2025 End: June 09, 2025 Lela Interiano SOL[employer]GY SYSTEMS DESIGNER, [employer]GY SYSTEMS DESIGNER-C Referring Provider Active S tart: June 09, 2025 End: June 09, 2025 Team Status: Inactive Member Role/Relationship Status Dates Lela Interiano [employer]GY SYSTEMS DESIGNER, [employer]GY SYSTEMS DESIGNER-C Primary Care Provider Active Start: June 22, 2025 End: June 22, 2025 Dr. Isaiah Lerner MD Attending Provider Active Start: June 22, 2025 End: June 22, 2025 Dr. Isaiah Lerner MD Referring Provider Active Start: June 22, 2025 End: June 22, 2025 Team Status: Active Member Role/Relationship Status Dates Lela Interiano NP, [employer] SYSTEMS DESIGNER-C Primary Care Provider Active Start: June 22, 2025 Dr. Isaiah Lerner MD Attending Provider Active Start: June 22, 2025 Dr. Isaiah Lerner MD Referring Provider Active Start: June 22, 2025 Dr. Isaiah Lerner MD Other Provider Active Start: June 22, 2025 Team Status: Inactive Member Role/Relationship Status Dates Lela Interiano [employer]GY SYSTEMS DESIGNER, [employer] SYSTEMS DESIGNER-C Primary Care Provider Active Start: May 10, [...] 2025 End: May 16, 2025 Laney Ferreira SOL[employer]GY SYSTEMS DESIGNER, [employer] SYSTEMS DESIGNER-C Attending Provider Active Start: May 16, 2025 End: May 16, 2025 Lela Interiano SOL[employer]GY SYSTEMS DESIGNER, [employer]GY SYSTEMS DESIGNER-C Primary Care Provider Active Start: May 16, 2025 End: May 16, 2025 Team Status: Active Member Role/Relationship Status Dates Lela Interiano [employer]GY SYSTEMS DESIGNER, [employer]GY SYSTEMS DESIGNER-C Primary Care Provider Active Start: May 18, [...] Member Role/Relationship Status Dates Lela Interiano NP, [employer] SYSTEM[employer] DESIGNER-C Primary Care Provider Active Start: May 19, [...] Active Member Role/Relationship Status Dates Lela Interiano [employer]GY SYSTEMS DESIGNER, [employer] SYSTEMS DESIGNER-C Primary Care Provider Active Start: May 19, [...] Inactive Member Role/Relationship Status Dates Lela Interiano [employer]GY SYSTEMS DESIGNER, [employer]S DESIGNER-C Primary Care Provider Active Start: May 19, [...] Member Role/Relationship Status Dates Lela Interiano NP, [employer] SYSTEMS DESIGNER-C Primary Care Provider Active Start: May 20, [...] Active Member Role/Relationship Status Dates Lela Interiano [employer] SYSTEMS DESIGNER, [employer] DESIGNER-C Primary Care Provider Active Start: May 20, [...] Active Member Role/Relationship Status Dates Lela Interiano [employer]GY SYSTEMS DESIGNER, [employer]GY SYSTEMS DESIGNER-C Primary Care Provider Active Start: May 21, [...] Active Member Role/Relationship Status Dates Lela Interiano [employer]GY SYSTEMS DESIGNER, [employer]S DESIGNER-C Primary Care Provider Active Start: May 21, [...] Member Role/Relationship Status Dates Lela Interiano NP, [employer] SYSTEM[employer] DESIGNER-C Primary Care Provider Active Start: May 22, [...] Active Member Role/Relationship Status Dates Lela Interiano [employer] SYSTEMS DESIGNER, [employer] SYSTEMS DESIGNER-C Primary Care Provider Active Start: May 23, 2025 Dr. Jeffery cMclain DO Emergency Provider Activ e Start: May [...] Inactive Member Role/Relationship Status Dates Lela Interiano [employer] SYSTEMS DESIGNER, [employer]S DESIGNER-C Primary Care Provider Active Start: May 29, 2025 End: May 29, 2025 Lela Interiano [employer]GY SYSTEMS DESIGNER, [employer]GY SYSTEMS DESIGNER-C Attending Provider Active S tart: May 29, 2025 End: May 29, 2025 Team Status: Inactive Member Role/Relationship Status Dates Lela Interiano [employer]GY SYSTEMS DESIGNER, [employer]GY SYSTEMS DESIGNER-C Primary Care Provider Active Start: June 05, 2025 End: June 05, 2025 Lela Interiano SOL[employer] EN[employer]GY SYSTEMS DESIGNER, [employer]GY SYSTEMS DESIGNER-C Referring Provider Active S tart: June 05, 2025 End: June 05, 2025 Dr. Carlos Bernal MD Attending Provider Active S tart: June 05, 2025 End: June 05, 2025 Team Status: Inactive Member Role/Relationship Status Dates Lelalita Interiano SOL[employer]GY SYSTEMS DESIGNER, [employer]GY SYSTEMS DESIGNER-C Primary Care Provider Active Start: June 08, 2025 End: June 08, 2025 Lela Interiano SOL[employer] EN[employer]GY SYSTEMS DESIGNER, SOL[employer]GY SYSTEMS DESIGNER-C Referring Provider Active S tart: June 08, 2025 End: June 08, 2025 Lizzy Pelaez SOL[employer]GY SYSTEMS DESIGNER, SOL[employer]GY SYSTEMS DESIGNER-C Attending Provider Active Start: June 08, 2025 End: June 08, 2025 Team Status: Inactive Member Role/Relationship Status Dates Lela Interiano [employer]GY SYSTEMS DESIGNER, SOL[employer]GY SYSTEMS DESIGNER-C Primary Care Provider Active Start: June 09, 2025 End: June 09, 2025 Lela Interiano SOL[employer] ENERGY SYSTEMS DESIGNER, SOL[employer]GY SYSTEMS DESIGNER-C Attending Provider Active S tart: June 09, 2025 End: June 09, 2025 Lela Interiano SOL[employer]GY SYSTEMS DESIGNER, SOL[employer]GY SYSTEMS DESIGNER-C Referring Provider Active S tart: June 09, 2025 End: June 09, 2025 Team Status: Inactive Member Role/Relationship Status Dates Lela Interiano SOL[employer]GY SYSTEMS DESIGNER, SOL[employer]GY SYSTEMS DESIGNER-C Primary Care Provider Active Start: June 15, 2025 End: June 15, 2025 Lela Interiano SOL[employer] EN[employer]GY SYSTEMS DESIGNER, SOL[employer]GY SYSTEMS DESIGNER-C Referring Provider Active S tart: June 15, 2025 End: June 15, 2025 Dr. Isaiah Lerner MD Attending Provider Active Start: June 15, 2025 End: June 15, 2025 Team Status: Inactive Member Role/Relationship Status Dates Lela Interiano SOL[employer]GY SYSTEMS DESIGNER, [employer]GY SYSTEMS DESIGNER-C Primary Care Provider Active Start: June 22, 2025 End: June 22, 2025 Dr. Isaiah Lerner MD Attending Provider Active Start: June 22, 2025 End: June 22, 2025 Dr. Isaiah Lerner MD Referring Provider Active Start: June 22, 2025 End: June 22, 2025 Team Status: Active Member Role/Relationship Status Dates Lela Interiano NP, SOL[employer] SYSTEMS DESIGNER-C Primary Care Provider Active Start: June 22, [...] Inactive Member Role/Relationship Status Dates Lela Interiano SOL[employer] EN[employer]GY SYSTEMS DESIGNER, SOL[employer]GY SYSTEMS DESIGNER-C Primary Care Provider Active Start: June 26, 2025 End: June 26, 2025 Lela Interiano NP, SOL[employer]GY SYSTEMS DESIGNER-C Referring Provider Active S tart: June 26, [...] BE BASED ON THE PRIMARY CLINICAL RECORDS. [facility]. provides no warranty or guarantee of the accuracy or completeness of information in this document.
[2025-07-05 00:03] LABS: Magnesium 1.8 mg/dL (1.5-2.2)
[2025-07-05 00:10] VITALS: BMI 20.4
[2025-07-05 00:30] VITALS: BP 170/82; PULSE 82; RESP 15; TEMP 36.5; O2SAT 98
[2025-07-05] MEDS: 0.9% Normal Saline (1000mL) 1,000 ML 125 ML IV ×2 (01:03→08:24)
[2025-07-05] MEDS: Pantoprazole Sodium 40 MG in 0.9% Normal Saline (100mL MB+) 100 ML 330 MG IV ×2 (01:03→11:36)
[2025-07-05] MEDS: 0.9% Saline Lock 10 ML Syringe IV ×4 (01:03→15:15)
[2025-07-05 01:38] LABS: Free T3 2.3 pg/mL (2.18-3.98)
[2025-07-05] MEDS: DiphenhydrAMINE 50 MG/ML Syringe 25 MG IV (02:41)
[2025-07-05 05:21] VITALS: BMI 20.4
--- NOTE | 2025-07-05 05:25 | RAD_ITS ---
PROCEDURE: ABDOMEN SINGLE VIEW (PORTABLE) 07/05/2025 REASON FOR EXAM: SBO TECHNIQUE: Procedure Code: RADABD_P Modality: DX Procedure: ABDOMEN SINGLE VIEW (PORTABLE) COMPARISON: July 04, 2025 FINDINGS: Contrast is noted in the renal collecting systems and bladder. There is an enteric tube seen with its tip in the stomach. Gas and stool is noted in the colon. There is no small bowel air or air-fluid level identified. There is no visible free air. Dextroscoliosis of the lumbar spine is noted. RAD/Abdomen Single View (Portable) IMPRESSION: Nonobstructive bowel pattern. Reading Location: [facility]
[2025-07-05 06:00] VITALS: BP 154/85; PULSE 83; RESP 15; TEMP 36.8; O2SAT 97
[2025-07-05 06:56] LABS: Hematocrit 28.6 % (37-47); Hemoglobin 9.4 g/dL (12.0-15.0); Immature Granulocytes Count 0.000 X10^3/uL (0.0-0.0); Mean Corp Hgb Conc 32.9 g/dL (32-36); Mean Corpuscular Volume 85.9 fL (81-99); Mean Platelet Vol. 10.6 fl (6.2-12.0); NRBC Flagged by Analyzer 0 % (0-5); POSITIVE COUNT YES; POSITIVE DIFFERENTIAL YES; Platelet Count 253 K/mm3 (150-450); RBC Distribution Width CV 13.6 % (11.6-14.6); RBC Distribution Width SD 42.5 fl (35.1-43.9); Red Blood Count 3.33 M/mm3 (4.2-5.4)
[2025-07-05 07:18] LABS: Differential Indicated SCAN CRITERIA MET; White Blood Count 1.2 K/mm3 (4.4-11.0)
--- NOTE | 2025-07-05 07:29 | PN.HOSP_ITS ---
Reason for Visit Chief Complaint: Abdominal Pain, Nausea and Vomiting. Subjective Subjective Still with abdominal pain. No BM/flatus. NGT has been clamped for SBFT. Objective Data Objective Data Vital Signs: Vital Signs Temp Pulse Resp BP Pulse Ox O2 Del Method 36.8 C 83 15 154/85 H 97 Room Air 07/05/25 06:00 07/05/25 06:00 07/05/25 06:00 07/05/25 06:00 07/05/25 06:00 07/05/25 06:00 Oxygen Delivery Method Room Air Weight: 55.6 kg Body Mass Index (BMI) 20.4 Intake & Output: Intake and Output for Last 24 Hours 07/03/25 07/04/25 07/05/25 23:59 23:59 23:59 Intake Total 1000 / 1000 100 / 100 Output Total 500 / 500 Balance 1000 / 1000 -400 / -400 Lab / Micro Data 07/05/25 06:35 07/05/25 06:35 Labs: Laboratory Results - last 24 hr 07/04/25 20:40: WBC 3.8 L, RBC 3.58 L, Hgb 10.2 L, Hct 30.9 L, MCV 86.3, MCH 28.5, MCHC 33.0, RDW Std Deviation 42.3, RDW Coeff of Karthikeyan 13.5, Plt Count 314, MPV 11.3, Immature Gran % (Auto) 0.500, Neut % (Auto) 89.1 H, Lymph % (Auto) 5.6 L, Perkins % (Auto) 4.0, Eos % (Auto) 0.3, Baso % (Auto) 0.5, Absolute Neuts (auto) 3.4, Absolute Lymphs (auto) 0.21 L, Nucleated RBC % 0, Sodium 134, Potassium 3.4, Chloride 101, Carbon Dioxide 19.0 L, Anion Gap 14, BUN 16, Creatinine 0.57 L, Estim Creat Clear Calc 45.36 L, Est GFR (MDRD) Non-Af 90, BUN/Creatinine Ratio 27.8 H, Glucose 133 H, Calcium 8.6, Total Bilirubin 0.40, AST 28, ALT 15, Alkaline Phosphatase 66, Total Protein 6.6, Albumin 3.7, Globulin 3.0, Albumin/Globulin Ratio 1.2, Lipase 56 07/04/25 21:30: Urine Color Straw, Urine Clarity Clear, Urine pH 8.0, Ur Specific Addison 1.010, Urine Protein Negative, Urine Glucose (UA) Normal, Urine Ketones Negative, Urine Occult Blood Negative, Urine Nitrite Negative, Urine Bilirubin Negative, Urine Urobilinogen Normal, Ur Leukocyte Esterase Negative, Urine RBC 0-5 SEEN, Urine WBC 0-5 SEEN, Ur Squamous Epith Cells 0-5 SEEN, Urine Bacteria 0 SEEN, Urine Mucus 0 SEEN 07/04/25 23:29: Lactic Acid < 1.0, Magnesium 1.8, TSH 5.000 H, Free T4 1.40, Free T3 pg/dL 2.3 07/05/25 06:35: WBC 1.2 L*, RBC 3.33 L, Hgb 9.4 L, Hct 28.6 L, MCV 85.9, MCH 28.2, MCHC 32.9, RDW Std Deviation 42.5, RDW Coeff of Karthikeyan 13.6, Plt Count 253, MPV 10.6, Immature Gran % (Auto) 0.000, Neut % (Auto) 69.2, Lymph % (Auto) 19.2, Perkins % (Auto) 10.8 H, Eos % (Auto) 0.0, Baso % (Auto) 0.8, Absolute Neuts (auto) 0.8 L, Absolute Lymphs (auto) 0.23 L, Nucleated RBC % 0 Radiography Diagnostic Testing: Radiology Impression Abdomen/Pelvis CT 07/04/25 21:04 IMPRESSION: Diffuse small-bowel thickening and wall inflammation concerning for bowel obstruction with transition point suspected at the distal small bowel at the posterior pelvic region (series 2 image 81) with prominent segmental thickening concerning for underlying enteritis. Reading Location: [id number] X-Ray 07/04/25 22:43 IMPRESSION: Orogastric tube in satisfactory position. Reading Location: [id number] X-Ray 07/05/25 05:25 IMPRESSION: Nonobstructive bowel pattern. [facility] Exam Const alert and no apparent distress HEENT head/scalp atraumatic and moist oral mucous membranes HEENT Narrative: NGT in right nares (currently clamped) Resp normal respiratory effort, no retractions, no use of accessory muscles and clear to auscultation bilaterally Cardio regular rate, regular rhythm, S1 normal heart sound and S2 normal heart sound GI GI Narrative: distended. soft. NT. hypoactive BS. Extremity normal to inspection Neuro Sensorium / Orientation: awake and alert Assessment & Plan Assessment/Plan (1) Small bowel obstruction: (2) Enteritis: (3) Abdominal pain: QUALIFIERS: Abdominal location: epigastric Qualified Code(s): R 10.13 - Epigastric pain (4) Nausea and vomiting: QUALIFIERS: Vomiting type: bilious vomiting Qualified Code(s): R 11.14 - Bilious vomiting (5) Neutropenia: QUALIFIERS: Neutropenia type: secondary to cancer chemotherapy Q ualified Code(s): D70.1 - Agranulocytosis secondary to cancer chemotherapy; T45.1X5A - Adverse effect of antineoplastic and immunosuppressive drugs, initial encounter (6) History of endometrial cancer: (7) Uterine cancer: QUALIFIERS: Malignant neoplasm of uterus location: unspecified site of uterus Qualified Code(s): C55 - Malignant neoplasm of uterus, part unspecified PLAN: Plan SBO: * CT scan of the abdomen and pelvis that revealed diffuse small-bowel thickening and wall inflammation concerning for Bowel Obstruction with transition point suspected at the distal small bowel at the posterior pelvic region with prominent segmental thickening concerning for underlying Enteritis in addition to a ~2.8 cm x ~2.6 cm exophytic cyst at the inferior pole of the Right kidney with scattered subcentimeter densities throughout bilateral kidneys too small to characterize - * Keep strict NPO and maintain NGT to IWS. * Give NS IVF @ 125 cc/hour x 2 liters and then reassess. * Pain control. * SBFT pending. Chronic conditions: * Essential hypertension; on metoprolol - Hold oral metoprolol until patient can tolerate oral intake. Give metoprolol IV prn for systolic blood pressure > 160 mmHg. * Hypothyroidism; on levothyroxine - Restart oral levothyroxine when patient can tolerate oral intake. Check TSH. * History of uterine cancer; s/p hysterectomy (2012) - Noted with mets DVT prophylaxis - SCD's DW family at bedside. Charges/Coding Visit Charges Inpatient E&M: 88398 Subs Hosp L2
[2025-07-05 07:45] LABS: AST(SGOT) 24 U/L (<=31); Alanine Aminotransfer ALT/SGPT 15 U/L (<=34); Albumin, Serum 3.7 g/dL (3.4-4.8); Alkaline Phosphatase 61 U/L (35-104); Anion Gap 12 (5-15); BUN 17 mg/dL (4-19); BUN/Creat Ratio 30.0 RATIO (10-20); Calcium,Total 8.5 mg/dL (7.6-11.0); Carbon Dioxide 20.7 mmol/L (21.0-32.0); Chloride 102 mmol/L (98-108); Estimated Creatinine Clearance 45.95 ml/min (50-250); Globulin 2.7 g/dL (2.2-4.2); Glucose 129 mg/dL (70-99); Potassium 4.1 mmol/L (3.3-5.1)
[2025-07-05 08:00] VITALS: BP 159/95; PULSE 83; RESP 15; TEMP 36.7; O2SAT 97
--- NOTE | 2025-07-05 08:05 | CON.PCM.SX_ITS ---
Assessment & Plan Assessment/Plan (1) Small bowel obstruction: (2) Enteritis: (3) Abdominal pain: QUALIFIERS: Abdominal location: epigastric Qualified Code(s): R 10.13 - Epigastric pain (4) Nausea and vomiting: QUALIFIERS: Vomiting type: bilious vomiting Qualified Code(s): R 11.14 - Bilious vomiting PLAN: Plan I have been consulted in conjunction with Dr. Nino. She will independently evaluate this patient. Patient is an 85 y/o F who presented with a 1 day history of abdominal pain, nausea, vomiting. CT scan was obtained and demonstrated distal small bowel thickening and wall inflammation concerning for enteritis. NG tube was placed in the ED. 200 cc output has been documented. Patient's symptoms have improved. She states she is slightly nauseated today. We will continue with NG tube this morning. I have discussed with the patient that we will plan to proceed with a small bowel follow-through with Gastrografin via NG tube. Imaging and procedure was explained to the patient. Discussed with the patient that if the small bowel follow-through is abnormal, we will be discussing future treatment plan, which may possibly include a surgical intervention. Patient stated she would have to discuss this with her family, as she plans to stop her current chemotherapy treatment because she is tired. If small bowel follow- through is normal, plan would be to remove NG tube and start patient on clear liquids. Patient has had the opportunity to ask and have questions answered. Patient verbally understands and agrees with the plan. Thank you for allowing us to participate in this patient's care. HPI Consult Data Date of Consult: 07/05/25 HPI Narrative HPI Narrative: LAI CLANCY, is a 85 F who presents with a 1 day history of pain radiating across her abdomen. Patient notes she started with abdominal pain radiating across her abdomen with associated nausea and vomiting. She notes since starting chemo 2 weeks ago, she has had a lack of appetite. She states at the beginning of last month, she was hospitalized with a small bowel obstruction. She notes her symptoms this time were worse. Patient is currently on chemotherapy for stage IV lung cancer. She states she started chemo 2 weeks ago. She states she has been more constipated with the chemotherapy treatment. She notes taking Miralax once. She does take an off brand of Metamucil daily. She attempts to drink 4 bottles of water, however she typically drinks 3 1/2. She notes her last chemotherapy was completed on Thursday, 07/03. She notes her last colonoscopy was in [address] Quezada. She was told at that time she would not need any further colonoscopies due to age. She states her last bowel movement was yesterday afternoon around 430/5. She notes it was solid, however smaller than her normal. She notes passing flatus yesterday, but less today. She denies any current abdominal pain/discomfort this morning. She notes her previous abdominal surgical history includes total hysterectomy for uterine cancer. CT scan of ab/pel demonstrated IMPRESSION: Diffuse small-bowel thickening and wall inflammation concerning for bowel obstruction with transition point suspected at the distal small bowel at the posterior pelvic region (series 2 image 81) with prominent segmental thickening concerning for underlying enteritis. KUB demonstrated IMPRESSION: Nonobstructive bowel pattern. [facility] Medical History (Updated 07/05/25 @ 00:09 by Stephanie Guillen) Lung cancer Thyroid disease Wears glasses Wears dentures Anxiety History of hiatal hernia Non-smoker Shortness of breath on exertion History of edema History of Holter monitoring Cardiology follow-up encounter History of echocardiogram History of stress test HTN (hypertension) Cancer Diverticulosis Pulmonary nodule Home Medications ?Medication ?Instructions ?Recorded ?Last Taken ?Type Calcium Carbonate/Vitamin D 1 tab PO DAILY supplement 08/01/13 08/25/17 History Multivitamins,Therapeutic 1 tab PO DAILY supplement 06/21/25 History lactobacillus combination no.9 4 4,000 mmu cells PO DA NURIS supplement 03/23/23 06/21/25 History billion cell capsule (Adult 50 Plus Probiotic) metoprolol succinate 50 mg 50 mg PO QDAY cardiac #90 t abs 01/11/25 06/22/25 Rx tablet,extended release 24 hr (Toprol XL) lidocaine-prilocaine 2.5 %-2.5 % 1 applic topical ONCE PRN port 06/13/25 Unknown Rx topical cream access 30 days #30 grams ondansetron 8 mg disintegrating 8 mg PO Q8H PRN nausea and 06/13/25 Unknown Rx tablet vomiting #30 tabs levothyroxine 50 mcg tablet 50 mcg PO DAILY thyroid re placement 06/16/25 06/22/25 History Allergy/AdvReac Type Severity Reaction Status Date / Time doxycycline AdvReac Severe Nausea Verified 07/04/25 19:33 erythromycin base AdvReac Severe Nausea Verified 07/04/25 19:33 (Erythromycin Base) clindamycin AdvReac Intermediate Thrush Verified 07/04/25 19:33 Penicillins AdvReac Intermediate Hives Verified 07/04/25 19:33 Family History Mother Colon cancer Breast cancer Daughter Thyroid disorder Father No problems noted. Surgical History Hx of oral surgery Hx of colonoscopy History of lung biopsy History of tubal ligation History of hysterectomy Social History household members: none Smoking Status: Never smoker alcohol intake: never substance use type: does not use ROS Constitutional Constitutional: Reports fatigue and malaise Eyes Eyes: Reports systems reviewed and no addt'l complaints, except as documented ENT HEENT: Reports systems reviewed and no addt'l complaints, except as documented Cardiovascular Cardiovascular: Reports systems reviewed and no addt'l complaints, except as documented Respiratory/Chest Respiratory/Chest: Reports systems reviewed and no addt'l complaints, except as documented Gastrointestinal Gastrointestinal: Reports systems reviewed and no addt'l complaints, except as documented Genitourinary Genitourinary: Reports systems reviewed and no addt'l complaints, except as documented Musculoskeletal Musculoskeletal: Reports systems reviewed and no addt'l complaints, except as documented Integumentary Integumentary: Reports systems reviewed and no addt'l complaints, except as documented Neurologic Neurologic: Reports systems reviewed and no addt'l complaints, except as documented Psychiatric Psychiatric: Reports systems reviewed and no addt'l complaints, except as documented Endocrine Endocrinology: Reports systems reviewed and no addt'l complaints, except as documented Hematologic/Lymphatic Hematologic/Lymphatic: Reports systems reviewed and no addt'l complaints, except as documented Allergic/Immunologic Allergic/Immunologic: Reports systems reviewed and no addt'l complaints, except as documented Physical Exam Const alert, oriented x3 and no apparent distress HEENT normocephalic and head/scalp atraumatic HEENT Narrative: NG tube intact Eyes PERRL Neck full ROM Chest Chest Narrative: Right port in place Resp normal respiratory effort and clear to auscultation bilaterally Cardio regular rate and regular rhythm GI GI Narrative: Abdomen- soft, nontender, slight distention. Hypoactive bowel sounds no CVA tenderness Back/Spine no CVA tenderness Extremity normal to inspection Skin no rashes or lesions noted Neuro no focal motor deficits and no sensory deficits noted Psych mental status grossly normal, thought process normal and cooperative Lab / Micro Data 07/05/25 06:35 07/05/25 06:35 Labs: Laboratory Results - last 24 hr 07/04/25 20:40: WBC 3.8 L, RBC 3.58 L, Hgb 10.2 L, Hct 30.9 L, MCV 86.3, MCH 28.5, MCHC 33.0, RDW Std Deviation 42.3, RDW Coeff of Karthikeyan 13.5, Plt Count 314, MPV 11.3, Immature Gran % (Auto) 0.500, Neut % (Auto) 89.1 H, Lymph % (Auto) 5.6 L, [place] % (Auto) 4.0, Eos % (Auto) 0.3, Baso % (Auto) 0.5, Absolute Neuts (auto) 3.4, Absolute Lymphs (auto) 0.21 L, Nucleated RBC % 0, Sodium 134, Potassium 3.4, Chloride 101, Carbon Dioxide 19.0 L, Anion Gap 14, BUN 16, Creatinine 0.57 L, Estim Creat Clear Calc 45.36 L, Est GFR (MDRD) Non-Af 90, BUN/Creatinine Ratio 27.8 H, Glucose 133 H, Calcium 8.6, Total Bilirubin 0.40, AST 28, ALT 15, Alkaline Phosphatase 66, Total Protein 6.6, Albumin 3.7, Globulin 3.0, Albumin/Globulin Ratio 1.2, Lipase 56 07/04/25 21:30: Urine Color Straw, Urine Clarity Clear, Urine pH 8.0, Ur Specific [place] 1.010, Urine Protein Negative, Urine Glucose (UA) Normal, Urine Ketones Negative, Urine Occult Blood Negative, Urine Nitrite Negative, Urine Bilirubin Negative, Urine Urobilinogen Normal, Ur Leukocyte Esterase Negative, Urine RBC 0-5 SEEN, Urine WBC 0-5 SEEN, Ur Squamous Epith Cells 0-5 SEEN, Urine Bacteria 0 SEEN, Urine Mucus 0 SEEN 07/04/25 23:29: Lactic Acid < 1.0, Magnesium 1.8, TSH 5.000 H, Free T4 1.40, Free T3 pg/dL 2.3 07/05/25 06:35: WBC 1.2 L*, RBC 3.33 L, Hgb 9.4 L, Hct 28.6 L, MCV 85.9, MCH 28.2, MCHC 32.9, RDW Std Deviation 42.5, RDW Coeff of Karthikeyan 13.6, Plt Count 253, MPV 10.6, Immature Gran % (Auto) 0.000, Neut % (Auto) 69.2, Lymph % (Auto) 19.2, [place] % (Auto) 10.8 H, Eos % (Auto) 0.0, Baso % (Auto) 0.8, Absolute Neuts (auto) 0.8 L, Absolute Lymphs (auto) 0.23 L, Nucleated RBC % 0, Diff Path Review May , Sodium 134, Potassium 4.1, Chloride 102, Carbon Dioxide 20.7 L, Anion Gap 12, BUN 17, Creatinine 0.57 L, Estim Creat Clear Calc 45.95 L, Est GFR (MDRD) Non-Af 90, BUN/Creatinine Ratio 30.0 H, Glucose 129 H, Calcium 8.5, Phosphorus 3.7, Total Bilirubin 0.50, AST 24, ALT 15, Alkaline Phosphatase 61, Total Protein 6.4, Albumin 3.7, Globulin 2.7, Albumin/Globulin Ratio 1.4 Imaging Radiology Impression Abdomen/Pelvis CT 07/04/25 21:04 IMPRESSION: Diffuse small-bowel thickening and wall inflammation concerning for bowel obstruction with transition point suspected at the distal small bowel at the posterior pelvic region (series 2 image 81) with prominent segmental thickening concerning for underlying enteritis. Reading Location: [id number] KUB X-Ray 07/04/25 22:43 IMPRESSION: Orogastric tube in satisfactory position. Reading Location: [id number] KUB X-Ray 07/05/25 05:25 IMPRESSION: Nonobstructive bowel pattern. Reading Location: [facility] Charges/Coding Visit Charges Inpatient E&M: 62652 Init Hosp L2
--- NOTE | 2025-07-05 09:00 | RAD_ITS ---
PROCEDURE: SMALL BOWEL SERIES ONLY 07/05/2025 REASON FOR EXAM: SMALL BOWEL OBSTRUCTION TECHNIQUE: SMALL BOWEL SERIES ONLY FLUOROGRAPHIC IMAGES: 7 COMPARISON: CT abdomen and pelvis 07/04/2025. 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 Postcontrast images: The NG tube descends and terminates in the stomach. The contrast progress within the bowel into the colon. Additional No acute bony abnormalities. No soft tissue abnormalities. RAD/Small Bowel Series Only IMPRESSION: Nonobstructive bowel-gas pattern on the final images. Resolved/resolving small bowel obstruction. Reading Location: [id number]
--- NOTE | 2025-07-05 12:52 | CASEMGMT ---
TAM FORD Assessment: Face to Face with pt for initial transition planning/care coordination assessment. RN LOGAN introduced self and role at [facility], pt voices understanding and consents to assessment. Pt is A&O x4 and answers all questions appropriately at this time. Pt lying in bed with NG in in no distress. Care providers, pharmacy, and demographics verified/updated. Admitting Dx: SBO with abd pain, N/V Strata Score: 3 PCP:Lawanda Specialists:Dolores, onc; Mike, cardio Preferred Pharmacy: [facility] Insurance: [employer] Prescription Benefit: yes LNOK: Eva Moss, dtr; Jarvis Kapadia, son Living Arrangements: Pt lives alone in a single story home with 3 steps to enter with a rail. Pt reports she is I in ADL/IADLs and denies concerns at home. Pt states her son and dtr [place]. Pt denies concerns at home. Transportation: Pt drives self and denies concerns with transportation. DME:cane, walker, shower chair but pt does not use HHC/SNF: Denies hx of Pt states no concerns with going home at time of dc. Pt states no further concerns/needs. CM to follow. Advised pt to ask CM if any further questions/concerns/needs arise, voices understanding. Pt Goal: Home Plan: Home, follow PT ifrah Zaragoza RN, CM
[2025-07-05 15:15] VITALS: BP 170/93; PULSE 87; RESP 16; TEMP 37.1; O2SAT 96
[2025-07-05] MEDS: 0.9% Normal Saline (250mL Bag) 250 ML 15 ML IV (21:34)
[2025-07-05 22:42] VITALS: BP 156/76; PULSE 94; RESP 16; TEMP 37; O2SAT 97
[2025-07-06 06:00] VITALS: BMI 20.4
[2025-07-06 06:48] VITALS: BP 130/70; PULSE 97; RESP 18; TEMP 36.9; O2SAT 98
[2025-07-06 07:03] VITALS: O2SAT 96
[2025-07-06 07:12] LABS: Hematocrit 28.7 % (37-47); Hemoglobin 9.4 g/dL (12.0-15.0); Immature Granulocytes Count 0.000 X10^3/uL (0.0-0.0); Mean Corp Hgb Conc 32.8 g/dL (32-36); Mean Corpuscular Volume 87.2 fL (81-99); Mean Platelet Vol. 10.9 fl (6.2-12.0); NRBC Flagged by Analyzer 0 % (0-5); POSITIVE COUNT YES; POSITIVE DIFFERENTIAL YES; POSITIVE MORPHOLOGY YES; Platelet Count 230 K/mm3 (150-450); RBC Distribution Width CV 13.8 % (11.6-14.6); RBC Distribution Width SD 43.5 fl (35.1-43.9); Red Blood Count 3.29 M/mm3 (4.2-5.4)
[2025-07-06 07:20] LABS: White Blood Count 1.1 K/mm3 (4.4-11.0)
[2025-07-06 07:21] LABS: Differential Indicated SCAN CRITERIA MET
--- NOTE | 2025-07-06 07:24 | NURSING ---
Addendum entered by Caitlin Kauffman 07/06/25 13:02: NNO Original Note: Critical WBC of 1.1 called in from lab. Dr. Mix made aware.
--- NOTE | 2025-07-06 07:44 | PN.SURG_ITS ---
Subjective Subjective Patient evaluated resting comfortably in bed. She notes feeling much improved. She denies any nausea/vomiting over night. She notes having 10 -12 liquid bowel movements. She is passing flatus. Objective Data Objective Data Vital Signs: Vital Signs Temp Pulse Resp BP Pulse Ox O2 Del Method 98.4 F 97 18 130/70 H 96 Room Air 07/06/25 06:48 07/06/25 06:48 07/06/25 06:48 07/06/25 06:48 07/06/25 07:03 07/06/25 07:03 Oxygen Delivery Method Room Air Weight: 122 lb 9.232 oz Body Mass Index (BMI) 20.4 Intake & Output: Intake and Output for Last 24 Hours 07/04/25 07/05/25 07/06/25 23:59 23:59 23:59 Intake Total 1000 / 1000 2148.75 / 2148.75 Output Total 2500 / 2500 Balance 1000 / 1000 -351.25 / -351.25 Lab / Micro Data 07/06/25 06:45 07/05/25 06:35 Labs: Laboratory Results - last 24 hr 07/05/25 06:35: Diff Path Review February foll, Sodium 134, Potassium 4.1, Chloride 102, Carbon Dioxide 20.7 L, Anion Gap 12, BUN 17, Creatinine 0.57 L, Estim Creat Clear Calc 45.95 L, Est GFR (MDRD) Non-Af 90, BUN/Creatinine Ratio 30.0 H, G lucose 129 H, Calcium 8.5, Phosphorus 3.7, Total Bilirubin 0.50, AST 24, ALT 15, Alkaline Phosphatase 61, Total Protein 6.4, Albumin 3.7, Globulin 2.7, Albumin/Globulin Ratio 1.4 07/06/25 06:45: WBC 1.1 L*, RBC 3.29 L, Hgb 9.4 L, Hct 28.7 L, MCV 87.2, MCH 28.6, MCHC 32.8, RDW Std Deviation 43.5, RDW Coeff of Karthikeyan 13.8, Plt Count 230, MPV 10.9, Immature Gran % (Auto) 0.000, Neut % (Auto) 54.2, Lymph % (Auto) 31.2, [place] % (Auto) 12.8 H, Eos % (Auto) 0.9, Baso % (Auto) 0.9, Absolute Neuts (auto) 0.6 L, Absolute Lymphs (auto) 0.34 L, Nucleated RBC % 0 Physical Exam GI GI Narrative: Abdomen- soft, nondistended, nontender Assessment & Plan Assessment/Plan (1) Small bowel obstruction: (2) Abdominal pain: QUALIFIERS: Abdominal location: epigastric Qualified Code(s): R 10.13 - Epigastric pain (3) Nausea and vomiting: QUALIFIERS: Vomiting type: bilious vomiting Qualified Code(s): R 11.14 - Bilious vomiting PLAN: Plan I am following this patient in conjunction with Dr. Nino. She will independently evaluate this patient CBC reviewed. BMP pending KUB this morning showed contrast within the colon Minimal output from the NG tube overnight Plan to pull NG tube and start clear liquids We will continue to monitor this patient Possible discharge later today versus tomorrow Charges/Coding Visit Charges Inpatient E&M: 12358 Subs Hosp L2
[2025-07-06 08:04] LABS: Anion Gap 14 (5-15); BUN 18 mg/dL (4-19); BUN/Creat Ratio 25.0 RATIO (10-20); Calcium,Total 8.7 mg/dL (7.6-11.0); Carbon Dioxide 18.7 mmol/L (21.0-32.0); Chloride 104 mmol/L (98-108); Estimated Creatinine Clearance 45.95 ml/min (50-250); Glucose 90 mg/dL (70-99); Potassium 3.4 mmol/L (3.3-5.1)
--- NOTE | 2025-07-06 08:13 | PCM.PN.HOSP ---
Reason for Visit Chief Complaint: Abdominal Pain, Nausea and Vomiting. Subjective Subjective NG tube removed. Had clear diet and tolerated well. Having flatus. Objective Data Objective Data Vital Signs: Vital Signs Temp Pulse Resp BP Pulse Ox O2 Del Method 36.9 C 97 18 130/70 H 96 Room Air 07/06/25 06:48 07/06/25 06:48 07/06/25 06:48 07/06/25 06:48 07/06/25 07:03 07/06/25 07:03 Oxygen Delivery Method Room Air Weight: 55.6 kg Body Mass Index (BMI) 20.4 Intake & Output: Intake and Output for Last 24 Hours 07/04/25 07/05/25 07/06/25 23:59 23:59 23:59 Intake Total 1000 / 1000 2148.75 / 2148.75 Output Total 2500 / 2500 Balance 1000 / 1000 -351.25 / -351.25 Lab / Micro Data 07/06/25 06:45 07/06/25 06:45 Labs: Laboratory Results - last 24 hr 07/06/25 06:45: WBC 1.1 L*, RBC 3.29 L, Hgb 9.4 L, Hct 28.7 L, MCV 87.2, MCH 28.6, MCHC 32.8, RDW Std Deviation 43.5, RDW Coeff of Karthikeyan 13.8, Plt Count 230, MPV 10.9, Immature Gran % (Auto) 0.000, Neut % (Auto) 54.2, Lymph % (Auto) 31.2, [place] % (Auto) 12.8 H, Eos % (Auto) 0.9, Baso % (Auto) 0.9, Absolute Neuts (auto) 0.6 L, Absolute Lymphs (auto) 0.34 L, Nucleated RBC % 0, Sodium 136, Potassium 3.4, Chloride 104, Carbon Dioxide 18.7 L, Anion Gap 14, BUN 18, Creatinine 0.74, Estim Creat Clear Calc 45.95 L, Est GFR (MDRD) Non-Af 80, BUN/Creatinine Ratio 25.0 H, Glucose 90, Calcium 8.7, Phosphorus 2.7 Physical Exam Const alert and no apparent distress Constitutional Narrative: Up in bed. Afebrile. Nontoxic. HEENT head/scalp atraumatic and moist oral mucous membranes Resp normal respiratory effort, no retractions, no use of accessory muscles and clear to auscultation bilaterally Cardio regular rate, regular rhythm, S1 normal heart sound and S2 normal heart sound GI normal to inspection, nondistended, normoactive bowel sounds, soft to palpation, non-tender and non-distended Extremity normal to inspection Neuro Sensorium / Orientation: awake and alert Assessment & Plan Assessment/Plan (1) Small bowel obstruction: (2) Enteritis: (3) Abdominal pain: QUALIFIERS: Abdominal location: epigastric Qualified Code(s): R10.13 - Epigastric pain (4) Nausea and vomiting: QUALIFIERS: Vomiting type: bilious vomiting Qualified Code(s): R11.14 - Bilious vomiting (5) Neutropenia: QUALIFIERS: Neutropenia type: secondary to cancer chemotherapy Qualified Code(s): D70.1 - Agranulocytosis secondary to cancer chemotherapy; T45.1X5A - Adverse effect of antineoplastic and immunosuppressive drugs, initial encounter (6) History of endometrial cancer: (7) Uterine cancer: QUALIFIERS: Malignant neoplasm of uterus location: unspecified site of uterus Qualified Code(s): C55 - Malignant neoplasm of uterus, part unspecified PLAN: Plan SBO: CT scan of the abdomen and pelvis that revealed diffuse small-bowel thickening and wall inflammation concerning for Bowel Obstruction with transition point suspected at the distal small bowel at the posterior pelvic region with prominent segmental thickening concerning for underlying Enteritis in addition to a ~2.8 cm x ~2.6 cm exophytic cyst at the inferior pole of the Right kidney with scattered subcentimeter densities throughout bilateral kidneys too small to characterize - Resolved. Thus far tolerating clear diet. General Surgery following, assistance appreciated. Neutropenia Reviewed with Dr. Wynn. He feels that the neutropenia is nadiring and should improve given her recent chemo on the . Keep her next follow up on the , unless something changes. No additional treatment/work up at this time. Chronic conditions: Essential hypertension; on metoprolol - Hold oral metoprolol until patient can tolerate oral intake. Give metoprolol IV prn for systolic blood pressure > 160 mmHg. Hypothyroidism; on levothyroxine - Restart oral levothyroxine when patient can tolerate oral intake. Check TSH. History of uterine cancer; s/p hysterectomy (2012). On Keytruda, carboplatin, taxol. DVT prophylaxis - SCD's Charges/Coding Visit Charges Inpatient E&M: 15640 Subs Hosp L2
--- NOTE | 2025-07-06 08:20 | NURSING ---
NG tube removed per order. Patient tolerated well. Tip intact. Patient immediately able to start clear liquid diet and tolerated well.
[2025-07-06 09:00] VITALS: BP 137/68; PULSE 73; RESP 16; TEMP 36.8; O2SAT 97
[2025-07-06] MEDS: Pantoprazole Sodium 40 MG in 0.9% Normal Saline (100mL MB+) 100 ML 330 MG IV (09:27)
[2025-07-06] MEDS: 0.9% Saline Lock 10 ML Syringe IV (09:28)
--- NOTE | 2025-07-06 14:02 | CHAPLAIN ---
Type of Pastoral Visit _x__ Initial Visit ___ Follow-up Visit ___ On-call Visit ___ General Patient Visit ___ Spiritual Assessment ___ Family Conference ___ Bereavement ___ Rapid Response ___ Code Blue ___ Other (describe below) Pastoral Care Referral From _x__ Patient ___ Family ___ Nurse ___ Physician ___ Gut Sorter ___ Prop Attendant ___ Other (describe below) Sacrament/Intervention _x__ Active listening ___ Anointing ___ Jehovah'S Witness ___ Bereavement ___ Communion ___ Donita exploration ___ ___ Life review _x__ Prayer ___ Reconciliation ___ Sacrament of Sick _x__ Supportive presence ___ Wedding ___ Other (describe below) Pastoral Comments patient is walking around the room and actively engaged in this conversation; pt is able to report on her health and while acknowledging a cancer diagnosis she also is hopeful, determined to do her best, and receive help from others; pt requests a prayer as that is an important thing to do; pt is asked about other concerns or needs
--- NOTE | 2025-07-06 15:16 | DS.PCM_ITS ---
Providers Date of Admission: 07/04/25 Primary Care Physician: Dr. Herminio Webber MD Consultations 07/05/25 00:16 Consult: General Surgery Routine Consulting Provider: Geovanna Nino Reason for Consult: SBO EMERGENT Consult: No MD Notified: Yes Date Notified: 07/04/25 Time Notified: 23:17 Method of Notification: ED Physician Initiated Reason For Visit: SBO WITH ABDOMINAL PAIN, N/V Diagnosis Discharge Diagnosis (1) Small bowel obstruction: Status: Acute Code(s): K56.609 - Unspecified intestinal obstruction, unspecified as to partial versus complete obstruction (2) Enteritis: Status: Acute Code(s): K52.9 - Noninfective gastroenteritis and colitis, unspecified (3) Abdominal pain: Status: Acute Code(s): R10.9 - Unspecified abdominal pain Qualifiers: Abdominal location: epigastric Qualified Code(s): R10.13 - Epigastric pain (4) Nausea and vomiting: Status: Acute Code(s): R11.2 - Nausea with vomiting, unspecified Qualifiers: Vomiting type: bilious vomiting Qualified Code(s): R11.14 - Bilious vomiting (5) Neutropenia: Status: Acute Code(s): D70.9 - Neutropenia, unspecified Qualifiers: Neutropenia type: secondary to cancer chemotherapy Qualified Code(s): D 70.1 - Agranulocytosis secondary to cancer chemotherapy; T45.1X5A - Adverse effect of antineoplastic and immunosuppressive drugs, initial encounter (6) History of endometrial cancer: Status: Chronic Code(s): Z85.42 - Personal history of malignant neoplasm of other parts of uterus (7) Uterine cancer: Status: Chronic Code(s): C55 - Malignant neoplasm of uterus, part unspecified Qualifiers: Malignant neoplasm of uterus location: unspecified site of uterus Q ualified Code(s): C55 - Malignant neoplasm of uterus, part unspecified Plan SBO: * CT scan of the abdomen and pelvis that revealed diffuse small-bowel thickening and wall inflammation concerning for Bowel Obstruction with transition point suspected at the distal small bowel at the posterior pelvic region with prominent segmental thickening concerning for underlying Enteritis in addition to a ~2.8 cm x ~2.6 cm exophytic cyst at the inferior pole of the Right kidney with scattered subcentimeter densities throughout bilateral kidneys too small to characterize - * Resolved. Thus far tolerating clear diet. Followed up later and patient tolerated full liquid diet. Patient overall feels well and has been ambulating hallway and having flatus. * General Surgery following, assistance appreciated. Neutropenia * Reviewed with Dr. Wynn. He feels that the neutropenia is nadiring and should improve given her recent chemo on the . Keep her next follow up on the , unless something changes. No additional treatment/work up at this time. Chronic conditions: * Essential hypertension; on metoprolol - Hold oral metoprolol until patient can tolerate oral intake. Give metoprolol IV prn for systolic blood pressure > 160 mmHg. * Hypothyroidism; on levothyroxine - Restart oral levothyroxine when patient can tolerate oral intake. Check TSH. * History of uterine cancer; s/p hysterectomy (2012). On Keytruda, carboplatin, taxol. DVT prophylaxis - SCD's Medications at Discharge Home Medications Calcium Carbonate/Vitamin D 1 tab PO DAILY supplement 08/01/13 Multivitamins,Therapeutic 1 tab PO DAILY supplement 08/01/13 lactobacillus combination no.9 4 billion cell capsule (Adult 50 Plus Probiotic) 4,000 mmu cells PO DAILY supplement 03/23/23 metoprolol succinate 50 mg tablet,extended release 24 hr (Toprol XL) 50 mg PO QDAY cardiac #90 tabs 01/11/25 lidocaine-prilocaine 2.5 %-2.5 % topical cream 1 applic topical ONCE PRN port access 30 days #30 grams 06/13/25 ondansetron 8 mg disintegrating tablet 8 mg PO Q8H PRN nausea and vomiting #30 tabs 06/13/25 levothyroxine 50 mcg tablet 50 mcg PO DAILY thyroid replacement 06/16/25 polyethylene glycol 3350 17 gram/dose oral powder (Miralax) 17 g PO DAILY #119 grams 07/06/25 Hospital Course Operations None Procedures None Summary of Care Provided Hospital Course: Greater than 30 minutes spent on discharge This is an 85-year-old female presents with abdominal pain. Is found to have small bowel obstruction. Patient NG tube placed. Patient improved did have a small bowel follow-through that was normal and NG tube was removed. Patient has since been started on clears and then subsequently full liquid diet which she is tolerating well. Patient will be discharged home. Did discuss that with her this afternoon and patient feels comfortable about returning home. Patient advised to have small bland diet at home and advance as tolerated. Explained her that small bowel obstruction could likely recur again or it may not. But patient to look out for warning signs if he does experience the symptoms such as that she presented with. Is also noted the patient developed neutropenia while she was here. Discussed with oncology recommends just follow-up per her routine and they suspect it is going to level off and start to improve in the coming days. No need for repeat blood work unless things were to change. Weight / BMI Weight Weight: 55.6 kg Body Mass Index (BMI) 20.4 ABG / Lab / Microbiology Data 07/06/25 06:45 07/06/25 06:45 Laboratory: Laboratory Results - last 24 hr 07/06/25 06:45: WBC 1.1 L*, RBC 3.29 L, Hgb 9.4 L, Hct 28.7 L, MCV 87.2, MCH 28.6, MCHC 32.8, RDW Std Deviation 43.5, RDW Coeff of Karthikeyan 13.8, Plt Count 230, MPV 10.9, Immature Gran % (Auto) 0.000, Neut % (Auto) 54.2, Lymph % (Auto) 31.2, Wise % (Auto) 12.8 H, Eos % (Auto) 0.9, Baso % (Auto) 0.9, Absolute Neuts (auto) 0.6 L, Absolute Lymphs (auto) 0.34 L, Nucleated RBC % 0, Sodium 136, Potassium 3.4, Chloride 104, Carbon Dioxide 18.7 L, Anion Gap 14, BUN 18, Creatinine 0.74, Estim Creat Clear Calc 45.95 L, Est GFR (MDRD) Non-Af 80, BUN/Creatinine Ratio 25.0 H, Glucose 90, Calcium 8.7, Phosphorus 2.7 Radiography Diagnostic Testing: Radiology Impression Small Bowel X-Ray 07/05/25 09:00 IMPRESSION: Nonobstructive bowel-gas pattern on the final images. Resolved/resolving small bowel obstruction. Reading Location: [facility] D/C Instructions DC O2, CPAP, BIPAP Needs Home O2 Discharge instructions: No Meaningful Use Info Meaningful Use Meaningful Use Diagnoses (Choose all that apply): None applicable Discharge Plan Admission Admit Date/Time: 07/04/25 23:14 Primary Reason for Your Visit: Small bowel obstruction Attending Provider: Abelardo Mix Primary Care Provider: Herminio Webber Consulting Providers: Geovanna Nino; Brian Painter Discharge Orders/Prescriptions Prescriptions: New polyethylene glycol 3350 [Miralax] 17 gram/dose powder 17 g PO DAILY Qty: 119 0RF Rx Instructions: Hold for loose stools or diarrhea. Continued Adult 50 Plus Probiotic 4 billion cell capsule 4,000 mmu cells PO DAILY Rx Instructions: administer with a meal metoprolol succinate [Toprol XL] 50 mg tablet extended release 24 hr 50 mg PO QDAY Qty: 90 3RF Multivitamins,Therapeutic tablet 1 tab PO DAILY Calcium Carbonate/Vitamin D tablet 1 tab PO DAILY levothyroxine 50 mcg tablet 50 mcg PO DAILY ondansetron 8 mg tablet,disintegrating 8 mg PO Q8H PRN (Reason: nausea and vomiting) Qty: 30 2RF lidocaine-prilocaine 2.5-2.5 % cream 1 applic topical ONCE PRN (Reason: port access) 30 Days Qty: 30 2RF Referrals / Follow Up: Carlos Bernal MD [Med Staff - Active Staff, Oncology] - 07/10/25 7:45 am Herminio Webber MD [Primary Care Provider, Family Practice] - Within 2 Weeks Disposition Disposition (needs filled in before D/C Order can be placed): Home, Self Care Charges/Coding Visit Charges Inpatient E&M: 59343 Disch Hosp >30min
[2025-07-06 15:29] VITALS: BP 151/71; PULSE 87; RESP 16; TEMP 36.9; O2SAT 98
--- NOTE | 2025-07-06 16:11 | PHA.DC_ITS ---
Pharmacy [facility] has performed discharge medication counseling for this patient. The patient was counseled on the following discharge medications and changes in medications for homegoing review. The Reason for Use, instructions for use, and potential side effects were reviewed for all new medications. The patient's questions regarding all of their medications were answered. The patient was able to verbally demonstrate an understanding of their discharge medications. Medications at Discharge Home Medications Calcium Carbonate/Vitamin D 1 tab PO DAILY supplement 08/01/13 Multivitamins,Therapeutic 1 tab PO DAILY supplement 08/01/13 lactobacillus combination no.9 4 billion cell capsule (Adult 50 Plus Probiotic) 4,000 mmu cells PO DAILY supplement 03/23/23 metoprolol succinate 50 mg tablet,extended release 24 hr (Toprol XL) 50 mg PO QDAY cardiac #90 tabs 01/11/25 lidocaine-prilocaine 2.5 %-2.5 % topical cream 1 applic topical ONCE PRN port access 30 days #30 grams 06/13/25 ondansetron 8 mg disintegrating tablet 8 mg PO Q8H PRN nausea and vomiting #30 tabs 06/13/25 levothyroxine 50 mcg tablet 50 mcg PO DAILY thyroid replacement 06/16/25 polyethylene glycol 3350 17 gram/dose oral powder (Miralax) 17 g PO DAILY #119 grams 07/06/25
== END 2025-07-06 16:09 | disposition home or self-care (01) | DRG 389 ==
LOC: ED 22:36 → MS3 23:29
PROVIDERS: Admitting Provider Internal Medicine; Emergency Provider Emergency Medicine; PCP Family Medicine
DX: K56.609 Unspecified intestinal obstruction, unspecified as to partial versus complete obstruction (principal); C78.00 Secondary malignant neoplasm of unspecified lung; D70.1 Agranulocytosis secondary to cancer chemotherapy; I10 Essential (primary) hypertension; E03.9 Hypothyroidism, unspecified; M19.90 Unspecified osteoarthritis, unspecified site; K52.9 Noninfective gastroenteritis and colitis, unspecified; T45.1X5A Adverse effect of antineoplastic and immunosuppressive drugs, initial encounter; N28.1 Cyst of kidney, acquired; Z79.890 Hormone replacement therapy; Z79.899 Other long term (current) drug therapy; Z85.42 Personal history of malignant neoplasm of other parts of uterus; Z87.19 Personal history of other diseases of the digestive system; Z90.710 Acquired absence of both cervix and uterus
CPT/HCPCS: 36415; 36591; 74018; 74177; 74250; 80048; 80053; 81001; 83605; 83690; 83735; 84100; 84439; 84443; 84481; 85025; 96367; 96375; 96409; 96413; 97161; 99285; Q9967; A4216; J2405; J2469; J9267

== ENCOUNTER → 2025-09-01 | Outpatient (CLI) | payer MEDICARE, BC, SELFPAY ==
[2025-09-01] MEDS: 0.9 % NaCl (Sterile) Posiflush 10 mL IV (14:40)
--- NOTE | 2025-09-01 14:41 | CT_ITS ---
PROCEDURE: CT CHEST, ABD, PEL W/CONTRAST 09/01/2025 REASON FOR EXAM: METASTATIC ENDOMETRIAL CA-IV ONLY TECHNIQUE: Chest, abdomen and pelvis CT with intravenous contrast. Coronal and Sagittal reconstruction series were provided. One or more dose reduction techniques were used (e.g., Automated exposure control, adjustment of the mA and/or kV according to patient size, use of iterative reconstruction technique. 100 cc of Isovue-300 utilized RADIATION DOSE SUMMARY: CTDlvol: 27 mGy DLP: 569 mGycm COMPARISON: 07/04/2025 abdomen pelvis FINDINGS: Patient with a diagnosis of metastatic endometrial carcinoma. 2.5 mm small nodule posterior superior right upper lobe. Small nonspecific 2 mm nodule left upper lobe. No pleural fluid. Small subpleural granuloma at the right lung base laterally. No axillary or mediastinal lymphadenopathy. No thoracic aneurysm. There is abnormal infrahilar paramediastinal soft tissue which has slightly ill- defined margins. This could represent irregular adenopathy. Not fully visible on the prior abdominal CT. This is smaller than on the prior study of 04/17/2025. Normal appearance of the spleen, and liver. Gallbladder contains a gallstone but is contracted. There is no renal calculus. The pancreas is normal. There is currently no bowel obstruction. There is currently no ascites. There is no pelvic sidewall adenopathy. There is no retroperitoneal adenopathy. There is no thoracic or lumbar compression deformity. No osseous destructive changes are seen. CT/CT Chest, Abd, Pel w/Contrast IMPRESSION: 1. 2 or 3 small, less than 3 mm nodules are seen in the chest which are indeter minate. However, these are stable in comparison to 04/17/2025. Recommend follow-up. 2. Decrease in prominence of abnormal neoplastic left infrahilar soft tissue co mpared to prior study. 3. No new areas of metastasis disease seen Reading [facility]
[2025-09-01] MEDS: 0.9% Saline Lock 10 ML Syringe IV (14:50)
== END | disposition home or self-care (01) ==
LOC: CT 14:40
PROVIDERS: PCP Family Medicine; Referring Provider Internal Medicine Medical Oncology; Visit Provider Internal Medicine Medical Oncology
DX: C55 Malignant neoplasm of uterus, part unspecified (principal); C78.01 Secondary malignant neoplasm of right lung; C78.02 Secondary malignant neoplasm of left lung
CPT/HCPCS: 71260; 74177; Q9967; A4216